=== PATIENT | female | born 1945 | race African-American/Black ===

== ENCOUNTER 2017-05-11 05:14 | Inpatient (IN) | payer MEDICARE, OTHER ==
[~2017-05-11] VITALS: Ht 165.1 cm; Wt 85.7 kg
[2017-05-11] VITALS (13 sets, daily range): BP systolic 146–179; BP diastolic 53–87
[2017-05-11] MEDS ORDERED: Morphine Sulfate 4mg/ml Inj IVP ONE (05:45)
[2017-05-11] MEDS ORDERED: NS 1000ml 2,600 ML IVLG ONE (05:45)
--- NOTE | 2017-05-11 05:48 | Emergency Room Report ---
History of Present Illness General Chief Complaint: Pain Source: Patient Present Illness HPI Is a 71-year-old female with history hypertension and diabetes. She's also legally blind. She uses a walker to get around her house. She presents with chief complaint of right ankle pain. Also the foot pain. Can't bear weight. She fell yesterday. Denies any fever chills. No nausea no vomiting. Unable to walk. Pain is 10 out of 10 when she stands better when she lays down. Also complaining last 3 days blood sugar been running over 600. Allergies: Coded Allergies: No Known Allergies (Unverified , 05/11/17) Patient History Past Medical History: see triage record, old chart reviewed, DM, HTN Past Surgical History: other Pertinent Family History: none Social History: Denies: smoking Last Menstrual Period: n/a Now: No Immunizations: other Reviewed Nursing Documentation: PMH: Agreed, PSxH: Agreed Nursing Documentation-PMH Past Medical History: No History, Except For Hx Cardiac Problems: Yes - irregular heartbeat Hx Hypertension: Yes Hx Diabetes: Yes Review of Systems Eye: Denies: eye pain, blurred vision ENT: Denies: ear pain, nose congestion, throat swelling Respiratory: Denies: cough, shortness of breath Cardiovascular: Denies: chest pain, palpitations Gastrointestinal: Denies: abdominal pain, diarrhea, nausea, vomiting Musculoskeletal: Reports: joint pain, Denies: back pain Skin: Denies: rash Neurological: Denies: headache, numbness Endocrine: Denies: increased thirst, increased urine Hematologic/Lymphatic: Denies: easy bruising All Other Systems: negative except mentioned in HPI Physical Exam Vital Signs Date Time Temp Pulse Resp B/P (MAP) Pulse Ox O2 Delivery O2 Flow Rate FiO2 05/11/17 05:13 98.4 79 16 127/54 100 05/11/17 05:29 Room Air vitals normal Sp02 EP Interpretation: reviewed, normal General Appearance: well appearing, no apparent distress, alert Head: normocephalic, atraumatic Eyes: right eye other - Right eye is cloudy, bilateral eye PERRL, bilateral eye EOMI ENT: hearing 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, normal pharynx Neck: full range of motion, supple, no meningismus Respiratory: chest non-tender, lungs clear, normal breath sounds Cardiovascular #1: regular rate, rhythm, no murmur Gastrointestinal: normal bowel sounds, non tender, no mass, no organomegaly, no bruit, non-distended Musculoskeletal: back normal, other - Right ankle: There is deformity laterally. Medial ankle is ecchymotic and tender. Pulse 1+. Psychiatric: mood/affect normal Skin: warm/dry Procedures Splinting Splinting : Consent: Verbal Location: It ankle Hand-Made Type: plaster Splint: Sugar tong and short leg splint Pre-Proc Neuro Vasc Exam: normal Post-Proc Neuro Vasc Exam: normal Patient Tolerated: Well Complications: None Joint Reduction Joint Reduction : Consent: Verbal Joint Reduction Site: other - Right ankle Procedural Sedation: No Reduction Attempts: One Pre-Procedure NV Exam: Yes Post-Procedure NV Exam: Yes Post Joint Reduction Film: joint reduced Patient Tolerated: Well Complications: None Progress with gentle traction I reduced the subtalar dislocation. Patient tolerated procedure without a problem. Splint was done also. Medical Decision Making Diagnostic Impression: Primary Impression: Trimalleolar fracture of right ankle Qualified Codes: S82.851A - Displaced trimalleolar fracture of right lower leg , initial encounter for closed fracture Additional Impressions: Dislocation of subtalar joint Qualified Codes: S93.314A - Dislocation of tarsal joint of right foot, initial encounter Anemia Qualified Codes: D64.9 - Anemia, unspecified Hyperglycemia due to type 2 diabetes mellitus Qualified Codes: E11.65 - Type 2 diabetes mellitus with hyperglycemia ER Course Patient presents with a trimalleolar ankle fracture with subtalar dislocation. Patient also has history anemia with previous blood transfusion. Blood sugars uncontrolled. She would benefit from orthopedic consultation and probably care home placement since she is blind and now can ambulate. Blood ordered. Patient will be admitted. Lab Results Impression labs with anemia and high glucose EKG Diagnostic Results Rate: normal Rhythm: NSR ST Segments: no acute changes Rhythm Strip Diag. Results Rhythm Strip Time: 06:54 EP Interpretation: yes Rate: 83 Rhythm: NSR, no PVC's, no ectopy Chest X-Ray Diagnostic Results Chest X-Ray Diagnostic Results : Chest X-Ray Ordered: Yes # of Views/Limited/Complete: 1 View Indication: Shortness of Breath EP Interpretation: Yes Interpretation: no consolidation, no effusion, no pneumothorax Impression: No acute disease Electronically Signed by: Electronically signed by Loi Spears MD Other X-Ray Diagnostic Results Other X-Ray Diagnostic Results #1: X-Ray ordered: Xr right ankle # of Views/Limited Vs Complete: 3 View Indication: Pain EP Interpretation: Yes Interpretation: no soft tissue swelling, other - Trimalleolar fracture with subtalar dislocation Impression: Other - trimalleolar frx with dislocation Electronically Signed by: Electronically signed by Loi Spears MD Other X-Ray Diagnostic Results #2: X-Ray ordered: Xr right ankle # of Views/Limited Vs Complete: 2 View Indication: Other - post reductdion EP Interpretation: Yes Interpretation: no soft tissue swelling, other - better alignment. trimalleolar frx. Impression: Other - post reduction of trimalleolar frx and dislocation Electronically Signed by: Electronically signed by Loi Spears MD Last Vital Signs Date Time Temp Pulse Resp B/P (MAP) Pulse Ox O2 Delivery O2 Flow Rate FiO2 05/11/17 05:29 98.2 74 15 147/59 97 Room Air Status: improved Disposition: ADMITTED INPATIENT Condition: Serious LOI SPEARS M.D. May 11, 2017 05:48
[2017-05-11 06:17] LABS: HEMATOCRIT 20.9 % (37.0-47.0); MEAN CORPUSCULAR VOLUME 87 FL (80-99); PLATELET COUNT 273 K/UL (150-450); RED CELL DISTRIBUTION WIDTH 12.3 % (11.6-14.8); WHITE BLOOD COUNT 8.3 K/UL (4.8-10.8)
[2017-05-11 06:24] LABS: HEMOGLOBIN 6.9 G/DL (12.0-16.0)
[2017-05-11 06:30] LABS: INR 0.9 (0.9-1.1)
[2017-05-11 07:12] LABS: ALANINE AMINOTRANSFERASE 16 U/L (12-78); ALBUMIN 2.1 G/DL (3.4-5.0); ALBUMIN/GLOBULIN RATIO 0.4 (1.0-2.7); ALKALINE PHOSPHATASE 173 U/L (46-116); ANION GAP 9 mmol/L (5-15); ASPARTATE AMINO TRANSFERASE 26 U/L (15-37); BILIRUBIN,TOTAL 0.4 MG/DL (0.2-1.0); BLOOD UREA NITROGEN 52 mg/dL (7-18); CALCIUM 9.2 MG/DL (8.5-10.1); CARBON DIOXIDE 25 MMOL/L (21-32); CHLORIDE 92 MMOL/L (98-107); CKMB 1.3 NG/ML (0.0-3.6); CREATINE KINASE 174 U/L (26-308); POTASSIUM 5.5 MMOL/L (3.5-5.1); SODIUM 125 MMOL/L (136-145)
[2017-05-11 07:58] LABS: APPEARANCE,URINE TURBID; BILIRUBIN, URINE NEGATIVE (NEGATIVE); COLOR,URINE PALE YELLOW; GLUCOSE, URINE (UA) 4+ (NEGATIVE); KETONES,URINE NEGATIVE (NEGATIVE); LEUKOCYTE ESTERASE ,URINE NEGATIVE (NEGATIVE); NITRITE,URINE NEGATIVE (NEGATIVE); PH,URINE 5 (4.5-8.0); PROTEIN,URINE 4+ (NEGATIVE); UROBILINOGEN,URINE NORMAL MG/DL (0.0-1.0)
[2017-05-11] MEDS ORDERED: LASIX20 M1 ORAL (08:14)
[2017-05-11] MEDS ORDERED: LISINOPRIL40 MG ORAL (08:14)
[2017-05-11] MEDS ORDERED: GLYBURIDE1.25 MG PO (08:14)
[2017-05-11] MEDS ORDERED: CATAPRES0.1 MG ORAL (08:40)
[2017-05-11] MEDS ORDERED: Norco 5mg/325mg tab ORAL ONE (10:15)
[2017-05-11] MEDS ORDERED: NovoLOG Insulin Flexpen SUBQ SCH ×3 (11:30→16:30)
--- NOTE | 2017-05-11 11:48 | Diagnostic Imaging Report ---
Indication: TRAUMA, pain Technique: One view of the chest Comparison: none Findings: Lungs and pleural spaces are clear. Heart size is normal. The bones are unremarkable Impression: No acute process
--- NOTE | 2017-05-11 11:50 | Diagnostic Imaging Report ---
Indication: TRAUMA Technique: 3 views of the right ankle Comparison: none Findings: Is there is a fracture dislocation of the ankle. There is a comminuted oblique fracture of the distal fibular diaphysis which is displaced laterally by over one bone width and overrides by about 2 cm. There is a comminuted oblique fracture of the medial malleolus which is displaced laterally. There is lateral dislocation and angulation of the talus. Lateral view demonstrates associated posterior malleolar fracture. Impression: Positive for severe right ankle fracture/dislocation, as described
--- NOTE | 2017-05-11 11:53 | Diagnostic Imaging Report ---
Indication: PAIN, postreduction Technique: 2 views of the right ankle Comparison: One hour earlier Findings: Interim splinting of previously demonstrated right ankle fracture dislocation. Improved anatomic alignment of the fracture as well as of the talus and the tibia. There is still some residual lateral angulation and subluxation however Impression: Interim closed reduction and splinting of previously demonstrated right ankle fracture/dislocation, as described
--- NOTE | 2017-05-11 13:06 | Consultation ---
Consult Note Consult Note 71 yo female with fall and rt ankle trimalleolar fracture significantly uncontrolled DM anemia of unknown source Xray reviewed Assessment/Plan Rt ankle trimalleolar fracture plan for ORIF in AM NPO tonight. transfuse x2 units- check CBC in AM At risk for poor wound healing given DM- needs tight control FADUMO MCKOY May 11, 2017 13:06
--- NOTE | 2017-05-11 14:29 | Consultation ---
Consult Note Consult Note Is a 71-year-old female with history hypertension and diabetes. She's also legally blind. She uses a walker to get around her house. She presents with chief complaint of right ankle pain. Also the foot pain. Can't bear weight. She fell yesterday. Denies any fever chills. No nausea no vomiting. Unable to walk. Pain is 10 out of 10 when she stands better when she lays down. Also complaining last 3 days blood sugar been running over 600. Past Medical History: No History, Except For Hx Cardiac Problems: Yes - irregular heartbeat Hx Hypertension: Yes Hx Diabetes: Yes Assessment/Plan Renal Failure- Chronic vs Acute Anemia Fx ankle DM HTN Plan; Oliver urine studies 2D Echo Kidney STANLEY MORTON May 11, 2017 14:29
--- NOTE | 2017-05-11 14:58 | History and Physical ---
History of Present Illness General Date patient seen: May 11, 2017 Time patient seen: 14:58 Reason for Hospitalization: R ankle and foot pain s/p fall Present Illness HPI 71y/o AA female with pmh of DM2, HTN, HLD, legal blindness who presents with R ankle and foot pain after a fall. Pt uses a walker to get around her house. Pt states that she felt dizzy which she believes is because she is anemic. She tried to walk w/o her caregiver's assistance and fell. She has been unable to bear weight since. Pt states she has been aemic before and usually gets dizzy when she is anemia. She denies melena, BRBPR/hematochezia or any other source of active bleeding. She did have a colonoscopy abt 2 years ago which per pt was unremarkable. No reports of f/c, n/v, d/c, chest pain, SOB. Denies LOC or head trauma. Pt states she has not been following a diabetic diet and is only on one diabetic med. She has noted her BG running in 600s the last few days. In ED, pt's BG>500 on BMP, Cr 3.0 (uknown baseline), K 5.5, Na 125. AG and bicarb wnl. U/A showed no ketones. CBC w/ hgb 6.9. 2U pRBCs ordered to be transfused. Imaging showed R ankle trimalleolar fracture w/ subtalar dislocation s/p reduction and splinting in ED. Allergies: Coded Allergies: No Known Allergies (Unverified , 05/11/17) Medication History Scheduled Clonidine Hcl* (Catapres*), 0.1 MG ORAL DAILY, (Reported) Furosemide* (Lasix*), 20 MG ORAL TWICE A DAY, (Reported) Lisinopril* (Lisinopril*), 40 MG ORAL DAILY, (Reported) Miscellaneous Medications Glyburide (Glyburide), 1.25 MG PO, (Reported) Patient History History Provided By: Patient, Medical Record Healthcare decision maker Resuscitation status Advanced Directive on File Past Medical/Surgical History Past Medical/Surgical History: (1) HTN (hypertension) (2) Uncontrolled diabetes mellitus (3) Anemia Family History Family History: Patient reports no known family medical history. Social History Social History: (1) Lives w/ caregiver Review of Systems ROS Narrative CONSTITUTIONAL: No weight loss, fever, chills, weakness or fatigue. HEENT: Eyes: No visual loss, blurred vision, double vision or yellow sclerae. Ears, Nose, Throat: No hearing loss, sneezing, congestion, runny nose or sore throat. SKIN: No rash or itching. CARDIOVASCULAR: No chest pain, chest pressure or chest discomfort. No palpitations or edema. RESPIRATORY: No shortness of breath, cough or sputum. GASTROINTESTINAL: No anorexia, nausea, vomiting or diarrhea. No abdominal pain or blood. NEUROLOGICAL: No headache, syncope, paralysis, ataxia, numbness or tingling in the extremities. No change in bowel or bladder control. +dizziness MUSCULOSKELETAL: No muscle, back pain, joint pain or stiffness. HEMATOLOGIC: No anemia, bleeding or bruising. LYMPHATICS: No enlarged nodes. No history of splenectomy. PSYCHIATRIC: No history of depression or anxiety. ENDOCRINOLOGIC: No reports of sweating, cold or heat intolerance. No polyuria or polydipsia. ALLERGIES: No history of asthma, hives, eczema or rhinitis. Physical Exam Physical Exam Narrative General: alert, cooperative, no distress, appears stated age Head: normocephalic, without obvious abnormality, atraumatic Eyes: conjunctivae/corneas clear. PERRL, EOM's intact, +legal blindness b/l Throat: lips, mucosa, and tongue normal. MMM Neck: supple, symmetrical, trachea midline, and no JVD Lungs: clear to auscultation bilaterally Heart: regular rate and rhythm, S1, S2 normal, no murmur, click, rub or gallop Abdomen: soft, non-tender, non-distended, bowel sounds normal; no masses or organomegaly Extremities: extremities normal, atraumatic, no cyanosis, +BLE edema Right ankle: There is deformity laterally. Medial ankle is ecchymotic and tender. Pulses: 2+ and symmetric Skin: skin color, texture, turgor normal; no rashes or lesions Neurologic: 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, no focal deficits Last 24 Hour Vital Signs Date Time Temp Pulse Resp B/P (MAP) Pulse Ox O2 Delivery O2 Flow Rate FiO2 05/11/17 14:40 97.2 72 18 179/65 92 Room Air 05/11/17 12:41 97.2 72 18 179/65 92 Room Air 05/11/17 11:33 97.2 75 14 159/65 98 Room Air 05/11/17 11:27 97.2 05/11/17 10:40 97.2 74 14 146/77 96 Room Air 05/11/17 10:25 97.2 80 13 166/79 95 Room Air 05/11/17 10:10 97.3 72 18 179/87 96 Room Air 05/11/17 09:34 97.6 71 17 169/62 96 Room Air 05/11/17 09:19 97.6 71 25 164/55 97 Room Air 05/11/17 09:04 97.6 71 12 163/60 96 Room Air 05/11/17 08:59 97.1 72 13 05/11/17 08:49 97.1 72 13 152/61 96 Room Air 05/11/17 07:17 98.2 76 18 155/53 96 Room Air 05/11/17 06:34 98.2 05/11/17 05:29 98.2 74 15 147/59 97 Room Air 05/11/17 05:13 98.4 79 16 127/54 100 Intake and Output 05/11/17 05/12/17 19:00 07:00 Intake Total 2600 ml Balance 2600 ml Intake IV Total 2600 ml Laboratory Tests Test 05/11/17 05:00 05/11/17 05:50 05/11/17 05:55 05/11/17 06:23 Iron Level Pending Unsaturated Iron Binding Pending Ferritin Pending White Blood Count 8.3 K/UL (4.8-10.8) Red Blood Count 2.40 M/UL (4.20-5.40) L Hemoglobin 6.9 G/DL (12.0-16.0) *L Hematocrit 20.9 % (37.0-47.0) L Mean Corpuscular Volume 87 FL (80-99) Mean Corpuscular Hemoglobin 28.7 PG (27.0-31.0) Mean Corpuscular Hemoglobin Concent 33.1 G/DL (32.0-36.0) Red Cell Distribution Width 12.3 % (11.6-14.8) Platelet Count 273 K/UL (150-450) Mean Platelet Volume 7.7 FL (6.5-10.1) Neutrophils (%) (Auto) % (45.0-75.0) Lymphocytes (%) (Auto) % (20.0-45.0) Monocytes (%) (Auto) % (1.0-10.0) Eosinophils (%) (Auto) % (0.0-3.0) Basophils (%) (Auto) % (0.0-2.0) Differential Total Cells Counted 100 Neutrophils % (Manual) 80 % (45-75) H Lymphocytes % (Manual) 11 % (20-45) L Monocytes % (Manual) 4 % (1-10) Eosinophils % (Manual) 4 % (0-3) H Basophils % (Manual) 1 % (0-2) Band Neutrophils 0 % (0-8) Platelet Estimate Adequate Platelet Morphology Normal Red Blood Cell Morphology Normal Prothrombin Time 9.6 SEC (9.30-11.50) Prothromb Time International Ratio 0.9 (0.9-1.1) Activated Partial Thromboplast Time 22 SEC (23-33) L Sodium Level 125 MMOL/L (136-145) L Potassium Level 5.5 MMOL/L (3.5-5.1) H Chloride Level 92 MMOL/L (98-107) L Carbon Dioxide Level 25 MMOL/L (21-32) Anion Gap 9 mmol/L (5-15) Blood Urea Nitrogen 52 mg/dL (7-18) H Creatinine 3.0 MG/DL (0.55-1.30) H Estimat Glomerular Filtration Rate 18.8 mL/min (>60) Glucose Level > 500 MG/DL (74-106) *H Lactic Acid Level 0.80 mmol/L (0.66-2.22) Calcium Level 9.2 MG/DL (8.5-10.1) Total Bilirubin 0.4 MG/DL (0.2-1.0) Aspartate Amino Transf (AST/SGOT) 26 U/L (15-37) Alanine Aminotransferase (ALT/SGPT) 16 U/L (12-78) Alkaline Phosphatase 173 U/L (46-116) H Total Creatine Kinase 174 U/L (26-308) Creatine Kinase MB 1.3 NG/ML (0.0-3.6) Creatine Kinase MB Relative Index 0.7 Troponin I 0.010 ng/mL (0.000-0.056) Total Protein 6.8 G/DL (6.4-8.2) Albumin 2.1 G/DL (3.4-5.0) L Globulin 4.7 g/dL Albumin/Globulin Ratio 0.4 (1.0-2.7) L Hemoglobin A1c > 16.0 % (4.3-6.0) H Urine Color Pale yellow Urine Appearance Turbid Urine pH 5 (4.5-8.0) Urine Specific [place] 1.010 (1.005-1.035) Urine Protein 4+ (NEGATIVE) H Urine Glucose (UA) 4+ (NEGATIVE) H Urine Ketones Negative (NEGATIVE) Urine Occult Blood 2+ (NEGATIVE) H Urine Nitrite Negative (NEGATIVE) Urine Bilirubin Negative (NEGATIVE) Urine Urobilinogen Normal MG/DL (0.0-1.0) Urine Leukocyte Esterase Negative (NEGATIVE) Urine RBC 2-4 /HPF (0 - 2) H Urine WBC 0-2 /HPF (0 - 2) Urine Squamous Epithelial Cells Occasional /LPF Urine Amorphous Sediment Moderate /LPF (NONE) H Urine Bacteria Few /HPF (NONE) Height (Feet): 5 Height (Inches): 7.00 Weight (Pounds): 189 Medications Current Medications Medications (Trade) Dose Ordered Sig/Andre Route PRN Reason Start Time Stop Time Status Last Admin Dose Admin Dextrose (Dextrose 50%) STAT PRN IV Hypoglycemia 05/11/17 08:45 06/10/17 08:44 Heparin Sodium (Porcine) (Heparin 5000 units/ml) 5,000 units EVERY 12 HOURS SUBQ 05/11/17 21:00 06/10/17 20:59 Hydralazine HCl (Apresoline) 25 mg Q6H PRN ORAL SBP>160 05/11/17 15:00 06/10/17 14:59 Insulin Aspart (NovoLOG) No Dose Q4HR SUBQ 05/11/17 17:00 06/10/17 16:29 UNV Insulin Detemir (Levemir) 20 units ONCE ONCE SUBQ 05/11/17 15:00 05/11/17 15:01 Sodium Chloride 1,000 ml @ 100 mls/hr Q10H IV 05/11/17 14:30 06/10/17 14:29 Assessment/Plan Problem List: (1) Trimalleolar fracture of right ankle ICD Codes: S82.851A - Displaced trimalleolar fracture of right lower leg, initial encounter for closed fracture SNOMED: 403048800, 04506542 Qualifiers: Qualified Codes: S82.851A - Displaced trimalleolar fracture of right lower leg, initial encounter for closed fracture (2) Status post fall ICD Codes: Z91.81 - History of falling SNOMED: 388991650 (3) Uncontrolled diabetes mellitus ICD Codes: E11.65 - Type 2 diabetes mellitus with hyperglycemia SNOMED: 47964335, 665322151 (4) HTN (hypertension) ICD Codes: I10 - Essential (primary) hypertension SNOMED: 60481490 (5) Hyperkalemia ICD Codes: E87.5 - Hyperkalemia SNOMED: 71285375 (6) ZENY (acute kidney injury) ICD Codes: N17.9 - Acute kidney failure, unspecified SNOMED: 92476820 (7) Hyponatremia ICD Codes: E87.1 - Hypo-osmolality and hyponatremia SNOMED: 80106996 (8) Pre-syncope ICD Codes: R55 - Syncope and collapse SNOMED: 061652489 (9) Anemia ICD Codes: D64.9 - Anemia, unspecified SNOMED: 269386722 Qualifiers: Qualified Codes: D64.9 - Anemia, unspecified Status: stable Assessment/Plan Admit inpt Ortho consulted--plan for OR Tuesday Endo consulted SSI [id number]--io cont to be uncontrolled, consider transfer to ICU for insulin gtt Pt refusing long acting insulin, stating she has h/o "heart arrhythmia" with it prior Renal consulted IVFs Check urine lytes, renal U/S Check EKG, TTE for preop eval Hold home lasix, lisinopril given ZENY (unknown baseline SCr) Clonidine PRN SBP>160 GI consulted PPI s/p 2U pRBCs on 05/11/17 Trend CBC Heme/onc consulted Check TSH, B12/folate, iron panel, ferritin, FOBT DVT Prophylaxis: SCD, HSQ Code Status: Full Hospital Classification Declaration: Based on this initial evaluation, and depending on the patient's clinical course, I anticipate that this patient will require hospitalization for 2-3 days for ankle fracture, uncontrolled diabetes, anemia and close respiratory/hemodynamic monitoring. Disposition: Once the patient is stable to leave the hospital, I anticipate the patient will likely be discharged to the following environment: home with HH + CG vs SNF I spent 75 minutes on this patient's case, and 50 minutes were dedicated to counseling and/or care coordination. Discussed with patient/family, nursing staff, SW/CM, endo, surgery, renal, GI regarding clinical status, treatment course, and disposition planning. Time of note may not reflect time of encounter. Celestine Stevens M.D. May 11, 2017 14:58
--- NOTE | 2017-05-11 14:58 | History and Physical ---
History of Present Illness General Date patient seen: May 11, 2017 Time patient seen: 14:58 Reason for Hospitalization: R ankle and foot pain s/p fall Present Illness HPI 71y/o AA female with pmh of DM2, HTN, HLD, legal blindness who presents with R ankle and foot pain after a fall. Pt uses a walker to get around her house. Pt states that she felt dizzy which she believes is because she is anemic. She tried to walk w/o her caregiver's assistance and fell. She has been unable to bear weight since. Pt states she has been aemic before and usually gets dizzy when she is anemia. She denies melena, BRBPR/hematochezia or any other source of active bleeding. She did have a colonoscopy abt 2 years ago which per pt was unremarkable. No reports of f/c, n/v, d/c, chest pain, SOB. Denies LOC or head trauma. Pt states she has not been following a diabetic diet and is only on one diabetic med. She has noted her BG running in 600s the last few days. In ED, pt's BG>500 on BMP, Cr 3.0 (uknown baseline), K 5.5, Na 125. AG and bicarb wnl. U/A showed no ketones. CBC w/ hgb 6.9. 2U pRBCs ordered to be transfused. Imaging showed R ankle trimalleolar fracture w/ subtalar dislocation s/p reduction and splinting in ED. Allergies: Coded Allergies: No Known Allergies (Unverified , 05/11/17) Medication History Scheduled Clonidine Hcl* (Catapres*), 0.1 MG ORAL DAILY, (Reported) Furosemide* (Lasix*), 20 MG ORAL TWICE A DAY, (Reported) Lisinopril* (Lisinopril*), 40 MG ORAL DAILY, (Reported) Miscellaneous Medications Glyburide (Glyburide), 1.25 MG PO, (Reported) Patient History History Provided By: Patient, Medical Record Healthcare decision maker Resuscitation status Advanced Directive on File Past Medical/Surgical History Past Medical/Surgical History: (1) HTN (hypertension) (2) Uncontrolled diabetes mellitus (3) Anemia Family History Family History: Patient reports no known family medical history. Social History Social History: (1) Lives w/ caregiver Review of Systems ROS Narrative CONSTITUTIONAL: No weight loss, fever, chills, weakness or fatigue. HEENT: Eyes: No visual loss, blurred vision, double vision or yellow sclerae. Ears, Nose, Throat: No hearing loss, sneezing, congestion, runny nose or sore throat. SKIN: No rash or itching. CARDIOVASCULAR: No chest pain, chest pressure or chest discomfort. No palpitations or edema. RESPIRATORY: No shortness of breath, cough or sputum. GASTROINTESTINAL: No anorexia, nausea, vomiting or diarrhea. No abdominal pain or blood. NEUROLOGICAL: No headache, syncope, paralysis, ataxia, numbness or tingling in the extremities. No change in bowel or bladder control. +dizziness MUSCULOSKELETAL: No muscle, back pain, joint pain or stiffness. HEMATOLOGIC: No anemia, bleeding or bruising. LYMPHATICS: No enlarged nodes. No history of splenectomy. PSYCHIATRIC: No history of depression or anxiety. ENDOCRINOLOGIC: No reports of sweating, cold or heat intolerance. No polyuria or polydipsia. ALLERGIES: No history of asthma, hives, eczema or rhinitis. Physical Exam Physical Exam Narrative General: alert, cooperative, no distress, appears stated age Head: normocephalic, without obvious abnormality, atraumatic Eyes: conjunctivae/corneas clear. PERRL, EOM's intact, +legal blindness b/l Throat: lips, mucosa, and tongue normal. MMM Neck: supple, symmetrical, trachea midline, and no JVD Lungs: clear to auscultation bilaterally Heart: regular rate and rhythm, S1, S2 normal, no murmur, click, rub or gallop Abdomen: soft, non-tender, non-distended, bowel sounds normal; no masses or organomegaly Extremities: extremities normal, atraumatic, no cyanosis, +BLE edema Right ankle: There is deformity laterally. Medial ankle is ecchymotic and tender. Pulses: 2+ and symmetric Skin: skin color, texture, turgor normal; no rashes or lesions Neurologic: 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, no focal deficits Last 24 Hour Vital Signs Date Time Temp Pulse Resp B/P (MAP) Pulse Ox O2 Delivery O2 Flow Rate FiO2 05/11/17 14:40 97.2 72 18 179/65 92 Room Air 05/11/17 12:41 97.2 72 18 179/65 92 Room Air 05/11/17 11:33 97.2 75 14 159/65 98 Room Air 05/11/17 11:27 97.2 05/11/17 10:40 97.2 74 14 146/77 96 Room Air 05/11/17 10:25 97.2 80 13 166/79 95 Room Air 05/11/17 10:10 97.3 72 18 179/87 96 Room Air 05/11/17 09:34 97.6 71 17 169/62 96 Room Air 05/11/17 09:19 97.6 71 25 164/55 97 Room Air 05/11/17 09:04 97.6 71 12 163/60 96 Room Air 05/11/17 08:59 97.1 72 13 05/11/17 08:49 97.1 72 13 152/61 96 Room Air 05/11/17 07:17 98.2 76 18 155/53 96 Room Air 05/11/17 06:34 98.2 05/11/17 05:29 98.2 74 15 147/59 97 Room Air 05/11/17 05:13 98.4 79 16 127/54 100 Intake and Output 05/11/17 05/12/17 19:00 07:00 Intake Total 2600 ml Balance 2600 ml Intake IV Total 2600 ml Laboratory Tests Test 05/11/17 05:00 05/11/17 05:50 05/11/17 05:55 05/11/17 06:23 Iron Level Pending Unsaturated Iron Binding Pending Ferritin Pending White Blood Count 8.3 K/UL (4.8-10.8) Red Blood Count 2.40 M/UL (4.20-5.40) L Hemoglobin 6.9 G/DL (12.0-16.0) *L Hematocrit 20.9 % (37.0-47.0) L Mean Corpuscular Volume 87 FL (80-99) Mean Corpuscular Hemoglobin 28.7 PG (27.0-31.0) Mean Corpuscular Hemoglobin Concent 33.1 G/DL (32.0-36.0) Red Cell Distribution Width 12.3 % (11.6-14.8) Platelet Count 273 K/UL (150-450) Mean Platelet Volume 7.7 FL (6.5-10.1) Neutrophils (%) (Auto) % (45.0-75.0) Lymphocytes (%) (Auto) % (20.0-45.0) Monocytes (%) (Auto) % (1.0-10.0) Eosinophils (%) (Auto) % (0.0-3.0) Basophils (%) (Auto) % (0.0-2.0) Differential Total Cells Counted 100 Neutrophils % (Manual) 80 % (45-75) H Lymphocytes % (Manual) 11 % (20-45) L Monocytes % (Manual) 4 % (1-10) Eosinophils % (Manual) 4 % (0-3) H Basophils % (Manual) 1 % (0-2) Band Neutrophils 0 % (0-8) Platelet Estimate Adequate Platelet Morphology Normal Red Blood Cell Morphology Normal Prothrombin Time 9.6 SEC (9.30-11.50) Prothromb Time International Ratio 0.9 (0.9-1.1) Activated Partial Thromboplast Time 22 SEC (23-33) L Sodium Level 125 MMOL/L (136-145) L Potassium Level 5.5 MMOL/L (3.5-5.1) H Chloride Level 92 MMOL/L (98-107) L Carbon Dioxide Level 25 MMOL/L (21-32) Anion Gap 9 mmol/L (5-15) Blood Urea Nitrogen 52 mg/dL (7-18) H Creatinine 3.0 MG/DL (0.55-1.30) H Estimat Glomerular Filtration Rate 18.8 mL/min (>60) Glucose Level > 500 MG/DL (74-106) *H Lactic Acid Level 0.80 mmol/L (0.66-2.22) Calcium Level 9.2 MG/DL (8.5-10.1) Total Bilirubin 0.4 MG/DL (0.2-1.0) Aspartate Amino Transf (AST/SGOT) 26 U/L (15-37) Alanine Aminotransferase (ALT/SGPT) 16 U/L (12-78) Alkaline Phosphatase 173 U/L (46-116) H Total Creatine Kinase 174 U/L (26-308) Creatine Kinase MB 1.3 NG/ML (0.0-3.6) Creatine Kinase MB Relative Index 0.7 Troponin I 0.010 ng/mL (0.000-0.056) Total Protein 6.8 G/DL (6.4-8.2) Albumin 2.1 G/DL (3.4-5.0) L Globulin 4.7 g/dL Albumin/Globulin Ratio 0.4 (1.0-2.7) L Hemoglobin A1c > 16.0 % (4.3-6.0) H Urine Color Pale yellow Urine Appearance Turbid Urine pH 5 (4.5-8.0) Urine Specific [place] 1.010 (1.005-1.035) Urine Protein 4+ (NEGATIVE) H Urine Glucose (UA) 4+ (NEGATIVE) H Urine Ketones Negative (NEGATIVE) Urine Occult Blood 2+ (NEGATIVE) H Urine Nitrite Negative (NEGATIVE) Urine Bilirubin Negative (NEGATIVE) Urine Urobilinogen Normal MG/DL (0.0-1.0) Urine Leukocyte Esterase Negative (NEGATIVE) Urine RBC 2-4 /HPF (0 - 2) H Urine WBC 0-2 /HPF (0 - 2) Urine Squamous Epithelial Cells Occasional /LPF Urine Amorphous Sediment Moderate /LPF (NONE) H Urine Bacteria Few /HPF (NONE) Height (Feet): 5 Height (Inches): 7.00 Weight (Pounds): 189 Medications Current Medications Medications (Trade) Dose Ordered Sig/Andre Route PRN Reason Start Time Stop Time Status Last Admin Dose Admin Dextrose (Dextrose 50%) STAT PRN IV Hypoglycemia 05/11/17 08:45 06/10/17 08:44 Heparin Sodium (Porcine) (Heparin 5000 units/ml) 5,000 units EVERY 12 HOURS SUBQ 05/11/17 21:00 06/10/17 20:59 Hydralazine HCl (Apresoline) 25 mg Q6H PRN ORAL SBP>160 05/11/17 15:00 06/10/17 14:59 Insulin Aspart (NovoLOG) No Dose Q4HR SUBQ 05/11/17 17:00 06/10/17 16:29 UNV Insulin Detemir (Levemir) 20 units ONCE ONCE SUBQ 05/11/17 15:00 05/11/17 15:01 Sodium Chloride 1,000 ml @ 100 mls/hr Q10H IV 05/11/17 14:30 06/10/17 14:29 Assessment/Plan Problem List: (1) Trimalleolar fracture of right ankle ICD Codes: S82.851A - Displaced trimalleolar fracture of right lower leg, initial encounter for closed fracture SNOMED: 137627832, 73746506 Qualifiers: Qualified Codes: S82.851A - Displaced trimalleolar fracture of right lower leg, initial encounter for closed fracture (2) Status post fall ICD Codes: Z91.81 - History of falling SNOMED: 394118353 (3) Uncontrolled diabetes mellitus ICD Codes: E11.65 - Type 2 diabetes mellitus with hyperglycemia SNOMED: 10432369, 084076907 (4) HTN (hypertension) ICD Codes: I10 - Essential (primary) hypertension SNOMED: 77738676 (5) Hyperkalemia ICD Codes: E87.5 - Hyperkalemia SNOMED: 43022095 (6) ZENY (acute kidney injury) ICD Codes: N17.9 - Acute kidney failure, unspecified SNOMED: 23457894 (7) Hyponatremia ICD Codes: E87.1 - Hypo-osmolality and hyponatremia SNOMED: 85754751 (8) Pre-syncope ICD Codes: R55 - Syncope and collapse SNOMED: 749141434 (9) Anemia ICD Codes: D64.9 - Anemia, unspecified SNOMED: 117464588 Qualifiers: Qualified Codes: D64.9 - Anemia, unspecified Status: stable Assessment/Plan Admit inpt Ortho consulted--plan for OR Tuesday Endo consulted SSI [id number] cont to be uncontrolled, consider transfer to ICU for insulin gtt Pt refusing long acting insulin, stating she has h/o "heart arrhythmia" with it prior Renal consulted IVFs Check urine lytes, renal U/S Check EKG, TTE for preop eval Hold home lasix, lisinopril given ZENY (unknown baseline SCr) Clonidine PRN SBP>160 GI consulted PPI s/p 2U pRBCs on 05/11/17 Trend CBC Heme/onc consulted Check TSH, B12/folate, iron panel, ferritin, FOBT DVT Prophylaxis: SCD, HSQ Code Status: Full Hospital Classification Declaration: Based on this initial evaluation, and depending on the patient's clinical course, I anticipate that this patient will require hospitalization for 2-3 days for ankle fracture, uncontrolled diabetes, anemia and close respiratory/hemodynamic monitoring. Disposition: Once the patient is stable to leave the hospital, I anticipate the patient will likely be discharged to the following environment: home with HH + CG vs SNF I spent 75 minutes on this patient's case, and 50 minutes were dedicated to counseling and/or care coordination. Discussed with patient/family, nursing staff, SW/CM, endo, surgery, renal, GI regarding clinical status, treatment course, and disposition planning. Time of note may not reflect time of encounter. Celestine Stevens M.D. May 11, 2017 14:58
--- NOTE | 2017-05-11 14:58 | History and Physical ---
History of Present Illness General Date patient seen: May 11, 2017 Time patient seen: 14:58 Reason for Hospitalization: R ankle and foot pain s/p fall Present Illness HPI 71y/o AA female with pmh of DM2, HTN, HLD, legal blindness who presents with R ankle and foot pain after a fall. Pt uses a walker to get around her house. Pt states that she felt dizzy which she believes is because she is anemic. She tried to walk w/o her caregiver's assistance and fell. She has been unable to bear weight since. Pt states she has been aemic before and usually gets dizzy when she is anemia. She denies melena, BRBPR/hematochezia or any other source of active bleeding. She did have a colonoscopy abt 2 years ago which per pt was unremarkable. No reports of f/c, n/v, d/c, chest pain, SOB. Denies LOC or head trauma. Pt states she has not been following a diabetic diet and is only on one diabetic med. She has noted her BG running in 600s the last few days. In ED, pt's BG>500 on BMP, Cr 3.0 (uknown baseline), K 5.5, Na 125. AG and bicarb wnl. U/A showed no ketones. CBC w/ hgb 6.9. 2U pRBCs ordered to be transfused. Imaging showed R ankle trimalleolar fracture w/ subtalar dislocation s/p reduction and splinting in ED. Allergies: Coded Allergies: No Known Allergies (Unverified , 05/11/17) Medication History Scheduled Clonidine Hcl* (Catapres*), 0.1 MG ORAL DAILY, (Reported) Furosemide* (Lasix*), 20 MG ORAL TWICE A DAY, (Reported) Lisinopril* (Lisinopril*), 40 MG ORAL DAILY, (Reported) Miscellaneous Medications Glyburide (Glyburide), 1.25 MG PO, (Reported) Patient History History Provided By: Patient, Medical Record Healthcare decision maker Resuscitation status Advanced Directive on File Past Medical/Surgical History Past Medical/Surgical History: (1) HTN (hypertension) (2) Uncontrolled diabetes mellitus (3) Anemia Family History Family History: Patient reports no known family medical history. Social History Social History: (1) Lives w/ caregiver Review of Systems ROS Narrative CONSTITUTIONAL: No weight loss, fever, chills, weakness or fatigue. HEENT: Eyes: No visual loss, blurred vision, double vision or yellow sclerae. Ears, Nose, Throat: No hearing loss, sneezing, congestion, runny nose or sore throat. SKIN: No rash or itching. CARDIOVASCULAR: No chest pain, chest pressure or chest discomfort. No palpitations or edema. RESPIRATORY: No shortness of breath, cough or sputum. GASTROINTESTINAL: No anorexia, nausea, vomiting or diarrhea. No abdominal pain or blood. NEUROLOGICAL: No headache, syncope, paralysis, ataxia, numbness or tingling in the extremities. No change in bowel or bladder control. +dizziness MUSCULOSKELETAL: No muscle, back pain, joint pain or stiffness. HEMATOLOGIC: No anemia, bleeding or bruising. LYMPHATICS: No enlarged nodes. No history of splenectomy. PSYCHIATRIC: No history of depression or anxiety. ENDOCRINOLOGIC: No reports of sweating, cold or heat intolerance. No polyuria or polydipsia. ALLERGIES: No history of asthma, hives, eczema or rhinitis. Physical Exam Physical Exam Narrative General: alert, cooperative, no distress, appears stated age Head: normocephalic, without obvious abnormality, atraumatic Eyes: conjunctivae/corneas clear. PERRL, EOM's intact, +legal blindness b/l Throat: lips, mucosa, and tongue normal. MMM Neck: supple, symmetrical, trachea midline, and no JVD Lungs: clear to auscultation bilaterally Heart: regular rate and rhythm, S1, S2 normal, no murmur, click, rub or gallop Abdomen: soft, non-tender, non-distended, bowel sounds normal; no masses or organomegaly Extremities: extremities normal, atraumatic, no cyanosis, +BLE edema Right ankle: There is deformity laterally. Medial ankle is ecchymotic and tender. Pulses: 2+ and symmetric Skin: skin color, texture, turgor normal; no rashes or lesions Neurologic: 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, no focal deficits Last 24 Hour Vital Signs Date Time Temp Pulse Resp B/P (MAP) Pulse Ox O2 Delivery O2 Flow Rate FiO2 05/11/17 14:40 97.2 72 18 179/65 92 Room Air 05/11/17 12:41 97.2 72 18 179/65 92 Room Air 05/11/17 11:33 97.2 75 14 159/65 98 Room Air 05/11/17 11:27 97.2 05/11/17 10:40 97.2 74 14 146/77 96 Room Air 05/11/17 10:25 97.2 80 13 166/79 95 Room Air 05/11/17 10:10 97.3 72 18 179/87 96 Room Air 05/11/17 09:34 97.6 71 17 169/62 96 Room Air 05/11/17 09:19 97.6 71 25 164/55 97 Room Air 05/11/17 09:04 97.6 71 12 163/60 96 Room Air 05/11/17 08:59 97.1 72 13 05/11/17 08:49 97.1 72 13 152/61 96 Room Air 05/11/17 07:17 98.2 76 18 155/53 96 Room Air 05/11/17 06:34 98.2 05/11/17 05:29 98.2 74 15 147/59 97 Room Air 05/11/17 05:13 98.4 79 16 127/54 100 Intake and Output 05/11/17 05/12/17 19:00 07:00 Intake Total 2600 ml Balance 2600 ml Intake IV Total 2600 ml Laboratory Tests Test 05/11/17 05:00 05/11/17 05:50 05/11/17 05:55 05/11/17 06:23 Iron Level Pending Unsaturated Iron Binding Pending Ferritin Pending White Blood Count 8.3 K/UL (4.8-10.8) Red Blood Count 2.40 M/UL (4.20-5.40) L Hemoglobin 6.9 G/DL (12.0-16.0) *L Hematocrit 20.9 % (37.0-47.0) L Mean Corpuscular Volume 87 FL (80-99) Mean Corpuscular Hemoglobin 28.7 PG (27.0-31.0) Mean Corpuscular Hemoglobin Concent 33.1 G/DL (32.0-36.0) Red Cell Distribution Width 12.3 % (11.6-14.8) Platelet Count 273 K/UL (150-450) Mean Platelet Volume 7.7 FL (6.5-10.1) Neutrophils (%) (Auto) % (45.0-75.0) Lymphocytes (%) (Auto) % (20.0-45.0) Monocytes (%) (Auto) % (1.0-10.0) Eosinophils (%) (Auto) % (0.0-3.0) Basophils (%) (Auto) % (0.0-2.0) Differential Total Cells Counted 100 Neutrophils % (Manual) 80 % (45-75) H Lymphocytes % (Manual) 11 % (20-45) L Monocytes % (Manual) 4 % (1-10) Eosinophils % (Manual) 4 % (0-3) H Basophils % (Manual) 1 % (0-2) Band Neutrophils 0 % (0-8) Platelet Estimate Adequate Platelet Morphology Normal Red Blood Cell Morphology Normal Prothrombin Time 9.6 SEC (9.30-11.50) Prothromb Time International Ratio 0.9 (0.9-1.1) Activated Partial Thromboplast Time 22 SEC (23-33) L Sodium Level 125 MMOL/L (136-145) L Potassium Level 5.5 MMOL/L (3.5-5.1) H Chloride Level 92 MMOL/L (98-107) L Carbon Dioxide Level 25 MMOL/L (21-32) Anion Gap 9 mmol/L (5-15) Blood Urea Nitrogen 52 mg/dL (7-18) H Creatinine 3.0 MG/DL (0.55-1.30) H Estimat Glomerular Filtration Rate 18.8 mL/min (>60) Glucose Level > 500 MG/DL (74-106) *H Lactic Acid Level 0.80 mmol/L (0.66-2.22) Calcium Level 9.2 MG/DL (8.5-10.1) Total Bilirubin 0.4 MG/DL (0.2-1.0) Aspartate Amino Transf (AST/SGOT) 26 U/L (15-37) Alanine Aminotransferase (ALT/SGPT) 16 U/L (12-78) Alkaline Phosphatase 173 U/L (46-116) H Total Creatine Kinase 174 U/L (26-308) Creatine Kinase MB 1.3 NG/ML (0.0-3.6) Creatine Kinase MB Relative Index 0.7 Troponin I 0.010 ng/mL (0.000-0.056) Total Protein 6.8 G/DL (6.4-8.2) Albumin 2.1 G/DL (3.4-5.0) L Globulin 4.7 g/dL Albumin/Globulin Ratio 0.4 (1.0-2.7) L Hemoglobin A1c > 16.0 % (4.3-6.0) H Urine Color Pale yellow Urine Appearance Turbid Urine pH 5 (4.5-8.0) Urine Specific [place] 1.010 (1.005-1.035) Urine Protein 4+ (NEGATIVE) H Urine Glucose (UA) 4+ (NEGATIVE) H Urine Ketones Negative (NEGATIVE) Urine Occult Blood 2+ (NEGATIVE) H Urine Nitrite Negative (NEGATIVE) Urine Bilirubin Negative (NEGATIVE) Urine Urobilinogen Normal MG/DL (0.0-1.0) Urine Leukocyte Esterase Negative (NEGATIVE) Urine RBC 2-4 /HPF (0 - 2) H Urine WBC 0-2 /HPF (0 - 2) Urine Squamous Epithelial Cells Occasional /LPF Urine Amorphous Sediment Moderate /LPF (NONE) H Urine Bacteria Few /HPF (NONE) Height (Feet): 5 Height (Inches): 7.00 Weight (Pounds): 189 Medications Current Medications Medications (Trade) Dose Ordered Sig/Andre Route PRN Reason Start Time Stop Time Status Last Admin Dose Admin Dextrose (Dextrose 50%) STAT PRN IV Hypoglycemia 05/11/17 08:45 06/10/17 08:44 Heparin Sodium (Porcine) (Heparin 5000 units/ml) 5,000 units EVERY 12 HOURS SUBQ 05/11/17 21:00 06/10/17 20:59 Hydralazine HCl (Apresoline) 25 mg Q6H PRN ORAL SBP>160 05/11/17 15:00 06/10/17 14:59 Insulin Aspart (NovoLOG) No Dose Q4HR SUBQ 05/11/17 17:00 06/10/17 16:29 UNV Insulin Detemir (Levemir) 20 units ONCE ONCE SUBQ 05/11/17 15:00 05/11/17 15:01 Sodium Chloride 1,000 ml @ 100 mls/hr Q10H IV 05/11/17 14:30 06/10/17 14:29 Assessment/Plan Problem List: (1) Trimalleolar fracture of right ankle ICD Codes: S82.851A - Displaced trimalleolar fracture of right lower leg, initial encounter for closed fracture SNOMED: 290528038, 63560148 Qualifiers: Qualified Codes: S82.851A - Displaced trimalleolar fracture of right lower leg, initial encounter for closed fracture (2) Status post fall ICD Codes: Z91.81 - History of falling SNOMED: 005171582 (3) Uncontrolled diabetes mellitus ICD Codes: E11.65 - Type 2 diabetes mellitus with hyperglycemia SNOMED: 66414994, 627210181 (4) HTN (hypertension) ICD Codes: I10 - Essential (primary) hypertension SNOMED: 87036105 (5) Hyperkalemia ICD Codes: E87.5 - Hyperkalemia SNOMED: 87509611 (6) ZENY (acute kidney injury) ICD Codes: N17.9 - Acute kidney failure, unspecified SNOMED: 78904264 (7) Hyponatremia ICD Codes: E87.1 - Hypo-osmolality and hyponatremia SNOMED: 05510457 (8) Pre-syncope ICD Codes: R55 - Syncope and collapse SNOMED: 816420497 (9) Anemia ICD Codes: D64.9 - Anemia, unspecified SNOMED: 634835807 Qualifiers: Qualified Codes: D64.9 - Anemia, unspecified Status: stable Assessment/Plan Admit inpt Ortho consulted--plan for OR Tuesday Endo consulted SSI [id number] cont to be uncontrolled, consider transfer to ICU for insulin gtt Pt refusing long acting insulin, stating she has h/o "heart arrhythmia" with it prior Renal consulted IVFs Check urine lytes, renal U/S Check EKG, TTE for preop eval Hold home lasix, lisinopril given ZENY (unknown baseline SCr) Clonidine PRN SBP>160 GI consulted PPI s/p 2U pRBCs on 05/11/17 Trend CBC Heme/onc consulted Check TSH, B12/folate, iron panel, ferritin, FOBT DVT Prophylaxis: SCD, HSQ Code Status: Full Hospital Classification Declaration: Based on this initial evaluation, and depending on the patient's clinical course, I anticipate that this patient will require hospitalization for 2-3 days for ankle fracture, uncontrolled diabetes, anemia and close respiratory/hemodynamic monitoring. Disposition: Once the patient is stable to leave the hospital, I anticipate the patient will likely be discharged to the following environment: home with HH + CG vs SNF I spent 75 minutes on this patient's case, and 50 minutes were dedicated to counseling and/or care coordination. Discussed with patient/family, nursing staff, SW/CM, endo, surgery, renal, GI regarding clinical status, treatment course, and disposition planning. Time of note may not reflect time of encounter. Celestine Stevens M.D. May 11, 2017 14:58
[2017-05-11] MEDS ORDERED: Levemir Flexpen SUBQ ONE (15:00)
[2017-05-11] MEDS ORDERED: HydrALAZINE 25mg tab ORAL PRN (15:00)
--- NOTE | 2017-05-11 15:02 | Anethesia Preoperative Eval ---
Anesthesia Pre-op PMH/ROS General Date of Evaluation: May 11, 2017 Time of Evaluation: 14:41 Anesthesiologist: Ashlee ASA Score: ASA 3 Mallampati Score Class I : Soft palate, uvula, fauces, pillars visible Class II: Soft palate, uvula, fauces visible Class III: Soft palate, base of uvula visible Class IV: Only hard plate visible Mallampati Classification: Class III Surgeon: Katarzyna Diagnosis: R ankle Fx Surgical Procedure: ORIF of R ankle Fx Anesthesia History: none Family History: no anesthesia problems Allergies: Coded Allergies: No Known Allergies (Unverified , 05/11/17) Medications: see eMAR Past Medical History Cardiovascular: Reports: HTN, arrhythmia - possible, Denies: CAD, CT, valve dz, other Pulmonary: Denies: asthma, COPD, JUSTYN, other Gastrointestinal/Genitourinary: Reports: GERD, CRI - Cr.high acute vs chronic RF Neurologic/Psychiatric: Reports: depression/anxiety, Denies: dementia, CVA, TIA, other Endocrine: Reports: DM - uncontrolled not on insulin according to patient, Denies: hypothyroidism, steroids, other HEENT: Reports: other - legally blind, Denies: cataract (L), cataract (R), glaucoma, [place] (L), [place] (R) Hematology/Immune: Reports: anemia - severe anemia of unknown source, Denies: DVT, bleeding disorder, other Musculoskeletal/Integumentary: Reports: DJD, edema - bilateral LE gr.2 edema, Denies: OA, RA, DDD, other Other: obesity PMH Narrative: admitted with mechanical fall and broken R ankle secondary to dizziness severe anemia PSxH Narrative: T&A as a child Anesthesia Pre-op Phys. Exam Physician Exam Last Vital Signs Date Time Temp Pulse Resp B/P (MAP) Pulse Ox O2 Delivery O2 Flow Rate FiO2 05/11/17 12:41 97.2 72 18 179/65 92 Room Air Constitutional: NAD Neurologic: CN 2-12 intact Cardiovascular: RRR Respiratory: CTA Gastrointestinal: other - obesity needs GI consult to rool out GI blee as a source of anemia Airway Exam Mallampati Score: Class III MO: limited Neck: stiff ROM: limited Teeth: missing Dentures: no upper, no lower Anesthesia Pre-op A/P Labs Hematology Test 05/11/17 05:50 White Blood Count 8.3 K/UL (4.8-10.8) Red Blood Count 2.40 M/UL (4.20-5.40) L Hemoglobin 6.9 G/DL (12.0-16.0) *L Hematocrit 20.9 % (37.0-47.0) L Mean Corpuscular Volume 87 FL (80-99) Mean Corpuscular Hemoglobin 28.7 PG (27.0-31.0) Mean Corpuscular Hemoglobin Concent 33.1 G/DL (32.0-36.0) Red Cell Distribution Width 12.3 % (11.6-14.8) Platelet Count 273 K/UL (150-450) Mean Platelet Volume 7.7 FL (6.5-10.1) Neutrophils (%) (Auto) % (45.0-75.0) Lymphocytes (%) (Auto) % (20.0-45.0) Monocytes (%) (Auto) % (1.0-10.0) Eosinophils (%) (Auto) % (0.0-3.0) Basophils (%) (Auto) % (0.0-2.0) Differential Total Cells Counted 100 Neutrophils % (Manual) 80 % (45-75) H Lymphocytes % (Manual) 11 % (20-45) L Monocytes % (Manual) 4 % (1-10) Eosinophils % (Manual) 4 % (0-3) H Basophils % (Manual) 1 % (0-2) Band Neutrophils 0 % (0-8) Platelet Estimate Adequate Platelet Morphology Normal Red Blood Cell Morphology Normal Coagulation Test 05/11/17 05:50 Prothrombin Time 9.6 SEC (9.30-11.50) Prothromb Time International Ratio 0.9 (0.9-1.1) Activated Partial Thromboplast Time 22 SEC (23-33) L Chemistry Test 05/11/17 05:00 05/11/17 05:50 05/11/17 05:55 Iron Level Pending Unsaturated Iron Binding Pending Ferritin Pending Sodium Level 125 MMOL/L (136-145) L Potassium Level 5.5 MMOL/L (3.5-5.1) H Chloride Level 92 MMOL/L (98-107) L Carbon Dioxide Level 25 MMOL/L (21-32) Anion Gap 9 mmol/L (5-15) Blood Urea Nitrogen 52 mg/dL (7-18) H Creatinine 3.0 MG/DL (0.55-1.30) H Estimat Glomerular Filtration Rate 18.8 mL/min (>60) Glucose Level > 500 MG/DL (74-106) *H Lactic Acid Level 0.80 mmol/L (0.66-2.22) Calcium Level 9.2 MG/DL (8.5-10.1) Total Bilirubin 0.4 MG/DL (0.2-1.0) Aspartate Amino Transf (AST/SGOT) 26 U/L (15-37) Alanine Aminotransferase (ALT/SGPT) 16 U/L (12-78) Alkaline Phosphatase 173 U/L (46-116) H Total Creatine Kinase 174 U/L (26-308) Creatine Kinase MB 1.3 NG/ML (0.0-3.6) Creatine Kinase MB Relative Index 0.7 Troponin I 0.010 ng/mL (0.000-0.056) Total Protein 6.8 G/DL (6.4-8.2) Albumin 2.1 G/DL (3.4-5.0) L Globulin 4.7 g/dL Albumin/Globulin Ratio 0.4 (1.0-2.7) L Hemoglobin A1c > 16.0 % (4.3-6.0) H CBC post transfusion is pending so we can decide if she needs more PRBC preoperatively. Needs dynamics with electrolytes and renal function tests. Accucheck last result 485 needs accuchecks at least every 2 hours to facilitate BS control Studies Pre-op Studies: EKG - NSR Risk Assessment & Plan Assessment: ASA 3 for severe anemia CRF vs ESRD uncontrolled DM hyperglycemia, hypertension. Needs additional workout to get ready for possible surgical procedure. Cardiology consult and clearance with 2D ECHO results, CBC dynamics for possible preop transfusion, endocrinology consult with possible insulin drip BS is out of control right now. GI consult consult to rule out active bleeding. Plan: GA with LMA possible popliteal fossa block if patients condition will aloud at least lateral positioning. We will follow with patient tomorrow and ortho team will be informed. Pre-Antibiotics Drug: as scheduled RIN JAKCSON M.D. May 11, 2017 15:02
[2017-05-11 15:16] LABS: % IRON SATURATION 10 % (15-50); IRON 23 ug/dL (50-175); TOTAL IRON BINDING CAPACITY 223 ug/dL (250-450)
[2017-05-11] MEDS: NovoLOG Insulin Flexpen SUBQ SCH ×2 (15:31→20:20)
[2017-05-11 15:32] LABS: FERRITIN 772 NG/ML (8-388)
[2017-05-11] MEDS ORDERED: Insulin NovoLOG Flexpen S/S (Mod) SUBQ SCH (16:30)
[2017-05-11 16:58] LABS: BASOPHILS % (AUTO) 0.6 % (0.0-2.0); EOSINOPHILS % (AUTO) 3.1 % (0.0-3.0); HEMOGLOBIN 9.2 G/DL (12.0-16.0); LYMPHOCYTES % (AUTO) 14.5 % (20.0-45.0); MEAN CORPUSCULAR VOLUME 83 FL (80-99); MONOCYTES % (AUTO) 7.4 % (1.0-10.0); NEUTROPHILS % (AUTO) 74.4 % (45.0-75.0); PLATELET COUNT 258 K/UL (150-450); RED BLOOD COUNT 3.35 M/UL (4.20-5.40); RED CELL DISTRIBUTION WIDTH 12.3 % (11.6-14.8)
[2017-05-11] MEDS ORDERED: Norco 5mg/325mg tab ORAL PRN (17:15)
[2017-05-11 18:05] LABS: ANION GAP 8 mmol/L (5-15); BLOOD UREA NITROGEN 43 mg/dL (7-18); CALCIUM 8.7 MG/DL (8.5-10.1); CARBON DIOXIDE 21 MMOL/L (21-32); CHLORIDE 99 MMOL/L (98-107); CREATININE 2.6 MG/DL (0.55-1.30); PHOSPHORUS 3.6 MG/DL (2.5-4.9); SODIUM 128 MMOL/L (136-145)
--- NOTE | 2017-05-11 19:09 | GI Initial Consult Note ---
Spears,Tessa Rosariooi N.PBess 05/11/17 1909: History of Present Illness General Date patient seen: May 11, 2017 Time patient seen: 12:00 Reason for Hospitalization: Pain Referring physician: MARYANN DUMONT Reason for Consultation: ANEMIA Present Illness HPI Is a 71-year-old female with history hypertension and diabetes. She's also legally blind. She uses a walker to get around her house. She presents with chief complaint of right ankle pain. Also the foot pain. Can't bear weight. She fell yesterday. Denies any fever chills. No nausea no vomiting. Unable to walk. Pain is 10 out of 10 when she stands better when she lays down. Also complaining last 3 days blood sugar been running over 600. GI consulted for anemia. HPI as noted above. Pt seen in ED, awake A&Ox4 NAD with son by beside. Pt on regular diet, no noted N/V/D at this time. The patient presents with anemia low Hgb requiring blood transfusion, hyperglycemia , hypoalbuminemia, and elevated alkaline phosphatase. The patient had colonoscopy x 2 years ago at [facility] with unremarkable findings at the time. She refuses to have an upper endoscopy. Home Meds Reported Medications Clonidine Hcl* (CATAPRES*) 0.1 Mg Tablet, 0.1 MG ORAL DAILY, TAB 05/11/17 Furosemide* (LASIX*) 20 Mg Tablet, 20 MG ORAL TWICE A DAY, TAB 05/11/17 Glyburide (GLYBURIDE) 1.25 Mg Tablet, 1.25 MG PO, TAB 05/11/17 Lisinopril* (LISINOPRIL*) 40 Mg Tablet, 40 MG ORAL DAILY, TAB 05/11/17 Med list reviewed/reconciled: Yes Allergies: Coded Allergies: No Known Allergies (Unverified , 05/11/17) Patient History PMH Narrative Allergies: Coded Allergies: No Known Allergies (Unverified , 05/11/17) Past Medical History: see triage record, old chart reviewed, DM, HTN Past Surgical History: other Pertinent Family History: none Social History: Denies: smoking Last Menstrual Period: n/a Now: No Immunizations: other Reviewed Nursing Documentation: PMH: Agreed, PSxH: Agreed Nursing Documentation-PMH Past Medical History: No History, Except For Hx Cardiac Problems: Yes - irregular heartbeat Hx Hypertension: Yes Hx Diabetes: Yes Social History: Denies: smoking, alcohol use, drug use, other Review of Systems All Other Systems: negative except mentioned in HPI Physical Exam Vital Signs Date Time Temp Pulse Resp B/P (MAP) Pulse Ox O2 Delivery O2 Flow Rate FiO2 05/11/17 05:13 98.4 79 16 127/54 100 05/11/17 05:29 Room Air Sp02 EP Interpretation: reviewed, normal Labs Laboratory Tests Test 05/11/17 05:00 05/11/17 05:50 05/11/17 05:55 05/11/17 06:23 Iron Level 23 ug/dL (50-175) L Total Iron Binding Capacity 223 ug/dL (250-450) L Percent Iron Saturation 10 % (15-50) L Unsaturated Iron Binding 200 ug/dL (112-346) Ferritin 772 NG/ML (8-388) H White Blood Count 8.3 K/UL (4.8-10.8) Red Blood Count 2.40 M/UL (4.20-5.40) L Hemoglobin 6.9 G/DL (12.0-16.0) *L Hematocrit 20.9 % (37.0-47.0) L Mean Corpuscular Volume 87 FL (80-99) Mean Corpuscular Hemoglobin 28.7 PG (27.0-31.0) Mean Corpuscular Hemoglobin Concent 33.1 G/DL (32.0-36.0) Red Cell Distribution Width 12.3 % (11.6-14.8) Platelet Count 273 K/UL (150-450) Mean Platelet Volume 7.7 FL (6.5-10.1) Neutrophils (%) (Auto) % (45.0-75.0) Lymphocytes (%) (Auto) % (20.0-45.0) Monocytes (%) (Auto) % (1.0-10.0) Eosinophils (%) (Auto) % (0.0-3.0) Basophils (%) (Auto) % (0.0-2.0) Differential Total Cells Counted 100 Neutrophils % (Manual) 80 % (45-75) H Lymphocytes % (Manual) 11 % (20-45) L Monocytes % (Manual) 4 % (1-10) Eosinophils % (Manual) 4 % (0-3) H Basophils % (Manual) 1 % (0-2) Band Neutrophils 0 % (0-8) Platelet Estimate Adequate Platelet Morphology Normal Red Blood Cell Morphology Normal Prothrombin Time 9.6 SEC (9.30-11.50) Prothromb Time International Ratio 0.9 (0.9-1.1) Activated Partial Thromboplast Time 22 SEC (23-33) L Sodium Level 125 MMOL/L (136-145) L Potassium Level 5.5 MMOL/L (3.5-5.1) H Chloride Level 92 MMOL/L (98-107) L Carbon Dioxide Level 25 MMOL/L (21-32) Anion Gap 9 mmol/L (5-15) Blood Urea Nitrogen 52 mg/dL (7-18) H Creatinine 3.0 MG/DL (0.55-1.30) H Estimat Glomerular Filtration Rate 18.8 mL/min (>60) Glucose Level > 500 MG/DL (74-106) *H Lactic Acid Level 0.80 mmol/L (0.66-2.22) Calcium Level 9.2 MG/DL (8.5-10.1) Total Bilirubin 0.4 MG/DL (0.2-1.0) Aspartate Amino Transf (AST/SGOT) 26 U/L (15-37) Alanine Aminotransferase (ALT/SGPT) 16 U/L (12-78) Alkaline Phosphatase 173 U/L (46-116) H Total Creatine Kinase 174 U/L (26-308) Creatine Kinase MB 1.3 NG/ML (0.0-3.6) Creatine Kinase MB Relative Index 0.7 Troponin I 0.010 ng/mL (0.000-0.056) Total Protein 6.8 G/DL (6.4-8.2) Albumin 2.1 G/DL (3.4-5.0) L Globulin 4.7 g/dL Albumin/Globulin Ratio 0.4 (1.0-2.7) L Hemoglobin A1c > 16.0 % (4.3-6.0) H Urine Color Pale yellow Urine Appearance Turbid Urine pH 5 (4.5-8.0) Urine Specific Mcintyre 1.010 (1.005-1.035) Urine Protein 4+ (NEGATIVE) H Urine Glucose (UA) 4+ (NEGATIVE) H Urine Ketones Negative (NEGATIVE) Urine Occult Blood 2+ (NEGATIVE) H Urine Nitrite Negative (NEGATIVE) Urine Bilirubin Negative (NEGATIVE) Urine Urobilinogen Normal MG/DL (0.0-1.0) Urine Leukocyte Esterase Negative (NEGATIVE) Urine RBC 2-4 /HPF (0 - 2) H Urine WBC 0-2 /HPF (0 - 2) Urine Squamous Epithelial Cells Occasional /LPF Urine Amorphous Sediment Moderate /LPF (NONE) H Urine Bacteria Few /HPF (NONE) Test 05/11/17 16:30 05/11/17 18:15 White Blood Count 7.0 K/UL (4.8-10.8) Red Blood Count 3.35 M/UL (4.20-5.40) L Hemoglobin 9.2 G/DL (12.0-16.0) #L Hematocrit 28.0 % (37.0-47.0) #L Mean Corpuscular Volume 83 FL (80-99) Mean Corpuscular Hemoglobin 27.4 PG (27.0-31.0) Mean Corpuscular Hemoglobin Concent 32.9 G/DL (32.0-36.0) Red Cell Distribution Width 12.3 % (11.6-14.8) Platelet Count 258 K/UL (150-450) Mean Platelet Volume 7.0 FL (6.5-10.1) Neutrophils (%) (Auto) 74.4 % (45.0-75.0) Lymphocytes (%) (Auto) 14.5 % (20.0-45.0) L Monocytes (%) (Auto) 7.4 % (1.0-10.0) Eosinophils (%) (Auto) 3.1 % (0.0-3.0) H Basophils (%) (Auto) 0.6 % (0.0-2.0) Sodium Level 128 MMOL/L (136-145) L Potassium Level 4.0 MMOL/L (3.5-5.1) Chloride Level 99 MMOL/L (98-107) Carbon Dioxide Level 21 MMOL/L (21-32) Anion Gap 8 mmol/L (5-15) Blood Urea Nitrogen 43 mg/dL (7-18) H Creatinine 2.6 MG/DL (0.55-1.30) H Estimat Glomerular Filtration Rate 22.2 mL/min (>60) Glucose Level 426 MG/DL (74-106) H Calcium Level 8.7 MG/DL (8.5-10.1) Phosphorus Level 3.6 MG/DL (2.5-4.9) Magnesium Level 1.6 MG/DL (1.8-2.4) L Lactate Dehydrogenase 220 U/L (81-234) Vitamin B12 Level 1124 PG/ML (193-986) H Methylmalonic Acid Pending Thyroid Stimulating Hormone (TSH) 4.914 uiU/mL (0.360-3.740) Folate Pending General Appearance: well appearing, no apparent distress, alert Head: normocephalic EENT: PERRL/EOMI, normal ENT inspection Neck: supple Respiratory: normal breath sounds, no respiratory distress Cardiovascular: normal rate Gastrointestinal: normal inspection, non tender, soft, normal bowel sounds, non -distended Rectal: deferred Genitourinary: no CVA tenderness Musculoskeletal: normal inspection, back normal Neurologic: normal inspection, alert, oriented x3, responsive Psychiatric: normal inspection, judgement/insight normal, memory normal Skin: normal inspection, normal color, no rash, warm/dry, palpation normal, well hydrated Lymphatic: normal inspection, no adenopathy Current Medications Current Medications Medications (Trade) Dose Ordered Sig/Andre Route PRN Reason Start Time Stop Time Status Last Admin Dose Admin Acetaminophen/ Hydrocodone Bitart (Mystic 5/325) 1 tab Q4H PRN ORAL Moderate Pain (Pain Scale 4-6) 05/11/17 17:15 05/18/17 17:14 Clonidine HCl (Catapres) 0.1 mg TIDPRN PRN ORAL SBP>160 05/11/17 15:30 06/10/17 15:29 05/11/17 16:25 Dextrose (Dextrose 50%) STAT PRN IV Hypoglycemia 05/11/17 08:45 06/10/17 08:44 Heparin Sodium (Porcine) (Heparin 5000 units/ml) 5,000 units EVERY 12 HOURS SUBQ 05/11/17 21:00 06/10/17 20:59 Insulin Aspart (NovoLOG) No Dose Q4HR SUBQ 05/11/17 17:00 06/10/17 16:29 05/11/17 15:31 Pantoprazole (Protonix) 40 mg DAILY ORAL 05/11/17 15:45 06/10/17 15:44 05/11/17 16:28 Sodium Chloride 1,000 ml @ 100 mls/hr Q10H IV 05/11/17 14:30 06/10/17 14:29 05/11/17 15:30 GI: Plan Problems: (1) Hypoalbuminemia (2) Alkaline phosphatase elevation (3) Anemia (4) Hyperglycemia due to type 2 diabetes mellitus Plan s/p colonoscopy x 2 years at [facility] with unremarkable results per patient refuses to have EGD done at this time anemia work up OB stool r/o GI bleed monitor H&H, prn transfusions bowel regime ppi DM mgmt fu labs, GGT Discussed with Dr. Herring. Thank you for this patient referral, we will follow. CHUCHO HERRING 05/13/17 0949: History of Present Illness General Reason for Hospitalization: Pain Present Illness Home Meds Reported Medications Clonidine Hcl* (CATAPRES*) 0.1 Mg Tablet, 0.1 MG ORAL DAILY, TAB 05/11/17 Furosemide* (LASIX*) 20 Mg Tablet, 20 MG ORAL TWICE A DAY, TAB 05/11/17 Glyburide (GLYBURIDE) 1.25 Mg Tablet, 1.25 MG PO, TAB 05/11/17 Lisinopril* (LISINOPRIL*) 40 Mg Tablet, 40 MG ORAL DAILY, TAB 05/11/17 Allergies: Coded Allergies: No Known Allergies (Unverified , 05/11/17) GI: Plan Plan The patient was seen and examined at bedside and all new and available data was reviewed in the patients chart. I agree with the above findings, impression and plan. (Patient seen earlier today. Signature stamp does not reflect patient encounter time.). - MD Tory Tavares,[facility] Jayden N.P. May 11, 2017 19:09 CHUCHO HERRING May 13, 2017 09:49
--- NOTE | 2017-05-11 19:45 | Consultation ---
DATE OF CONSULTATION: 05/11/2017 ORTHOPEDIC CONSULTATION CONSULTING PHYSICIAN: Delmer Colón M.D. HISTORY OF PRESENT ILLNESS: This is a 71-year-old female, who is legally blind and has uncontrolled diabetes who had a fall in her home where she sustained a right ankle pain. She was brought to [facility] where she was noted to have a trimalleolar fracture dislocation. She was reduced and splinted, although alignment is still not anatomic and Orthopedic consult has been called for surgical intervention. She also noted to be profoundly anemic and she is currently receiving 2 units of blood transfusion. Source of anemia is currently unknown. She complains of right ankle pain. PAST MEDICAL HISTORY: Uncontrolled diabetes and anemia. PAST SURGICAL HISTORY: None. CURRENT MEDICATIONS: See chart. ALLERGIES: None. SOCIAL HISTORY: The patient is legally blind. She ambulates with a walker. PHYSICAL EXAMINATION: She is cooperative to examination. She has got a right lower extremity splint on that is well padded. She is able to wiggle her toes. IMAGING STUDIES: X-rays reviewed. There is a trimalleolar fracture dislocation, which upon reduction does reduce the posterior malleolar component, however, the medial and lateral malleolar fractures are still displaced with widening of the mortise. IMPRESSION: 1. Right ankle trimalleolar fracture. 2. Uncontrolled diabetes. 3. Anemia of unknown source. DISCUSSION: At this time, I discussed with the patient my findings. With regards to her fracture, we will need to address this surgically with open reduction and internal fixation with plates and screws. She understands that if we treat this nonoperatively that she will have poor healing, poor alignment, and very unlikely be able to ambulate well. Risks of surgery including nerve injury, vessel injury, risk of infection, and bleeding were discussed with her. The risk of fracture, hardware failure, painful hardware, need for revision surgery, and hardware removal down the line were discussed with her. She also has significantly uncontrolled diabetes and she is at great risk for postoperative wound infection, so she will need tight diabetic control. She is currently getting 2 units of packed red blood cells, which is appropriate. A repeat CBC will be drawn after transfusion is completed to ensure improvement in hemoglobin and hematocrit. All the patient's questions were answered. We did ask for preoperative medical clearance in anticipation for surgery tomorrow. Delmer Colón M.D. Chris Cramer DR: NEVIN JOB#: [id number] CC:
[2017-05-11] MEDS: Heparin 5000 units/ml inj SUBQ SCH (20:19)
[2017-05-12] VITALS: BP 135/57
[2017-05-12] MEDS: NovoLOG Insulin Flexpen SUBQ SCH ×9 (01:01→21:29)
[2017-05-12 04:00] VITALS: BP 144/64
[2017-05-12 06:10] LABS: INR 0.9 (0.9-1.1)
[2017-05-12 06:31] LABS: ALANINE AMINOTRANSFERASE 11 U/L (12-78); ALBUMIN 1.7 G/DL (3.4-5.0); ALBUMIN/GLOBULIN RATIO 0.4 (1.0-2.7); ALKALINE PHOSPHATASE 120 U/L (46-116); ANION GAP 9 mmol/L (5-15); ASPARTATE AMINO TRANSFERASE 9 U/L (15-37); BILIRUBIN,TOTAL 0.3 MG/DL (0.2-1.0); BLOOD UREA NITROGEN 41 mg/dL (7-18); CALCIUM 8.9 MG/DL (8.5-10.1); CARBON DIOXIDE 23 MMOL/L (21-32); CHLORIDE 99 MMOL/L (98-107); CHOLESTEROL 174 MG/DL (< 200); CREATINE KINASE 70 U/L (26-308); CREATININE 2.4 MG/DL (0.55-1.30); GAMMA GLUTAMYL TRANSPEPTIDASE 15 U/L (5-85); HDL CHOLESTEROL 55 MG/DL (40-60); PHOSPHORUS 3.4 MG/DL (2.5-4.9); POTASSIUM 4.2 MMOL/L (3.5-5.1); SODIUM 131 MMOL/L (136-145); TRIGLYCERIDES 192 MG/DL (0-200)
[2017-05-12 06:47] LABS: BASOPHILS % (AUTO) 0.9 % (0.0-2.0); EOSINOPHILS % (AUTO) 4.3 % (0.0-3.0); HEMATOCRIT 27.4 % (37.0-47.0); HEMOGLOBIN 8.7 G/DL (12.0-16.0); LYMPHOCYTES % (AUTO) 19.8 % (20.0-45.0); MEAN CORPUSCULAR VOLUME 85 FL (80-99); MONOCYTES % (AUTO) 7.9 % (1.0-10.0); NEUTROPHILS % (AUTO) 67.1 % (45.0-75.0); PLATELET COUNT 271 K/UL (150-450); RED BLOOD COUNT 3.22 M/UL (4.20-5.40); RED CELL DISTRIBUTION WIDTH 12.5 % (11.6-14.8); WHITE BLOOD COUNT 7.1 K/UL (4.8-10.8)
[2017-05-12 08:00] VITALS: BP 147/60
--- NOTE | 2017-05-12 09:00 | Consultation ---
DATE OF CONSULTATION: 05/11/2017 HEMATOLOGY/ONCOLOGY CONSULTATION CONSULTING PHYSICIAN: Asa Mcgrath M.D. REFERRING PHYSICIAN: Celestine Stevens M.D. ATTENDING PHYSICIAN: Pierre Coughlin M.D. REASON FOR CONSULTATION: Evaluation of anemia. IDENTIFICATION DATA: Dear Dr. Sprague, The patient is a pleasant 71-year-old female with past medical history which is significant for diabetes mellitus as well as legal blindness. She uses a walker to get around, hypertension, at this time presents to [facility] with pain. Complains of right ankle pain, noted to have a fracture, has been seen by Orthopedic surgery as well as Nephrology. Blood sugar has been elevated above 600 for the past several days as well. Hematology Service was consulted given the patient has severe anemia. PAST MEDICAL HISTORY: Diabetes mellitus and hypertension. PAST SURGICAL HISTORY: None noted. SOCIAL HISTORY: No alcohol, tobacco, or illicit drug use. FAMILY HISTORY: Noncontributory. REVIEW OF SYSTEMS: CONSTITUTIONAL: No fever, chills, or night sweats. SKIN: No rashes, bumps, or itching. HEENT: No headache, hearing or vision changes. BREASTS: No lumps, pain, or discharge. PULMONARY: Positive shortness of breath. GASTROINTESTINAL: No nausea, vomiting, or diarrhea. GENITOURINARY: No dysuria, frequency, or urgency. MUSCULOSKELETAL: No joint swelling, muscle pain, or trauma. PHYSICAL EXAMINATION: GENERAL: No acute distress. VITAL SIGNS: Reviewed. Temperature 96 degrees Fahrenheit, pulse of 70, respiratory rate 12, blood pressure 112/76, and pulse oximetry 95% on room air. PULMONARY: Decreased breath sounds. CARDIOVASCULAR: Regular rate. No S3 or S4. ABDOMEN: Soft, nontender, and nondistended. EXTREMITIES: 1+ edema. LABORATORY DATA: WBC 8.3, hemoglobin 6.9, hematocrit 21, platelet count 273,000, neutrophils 80%. BUN of 52 and creatinine of 3. A1c of greater than 16. INR 0.9 and PTT of 22. . ASSESSMENT AND RECOMMENDATION: 1. Anemia, likely related to anemia of chronic disease, workup has been ordered including iron panel, ferritin, B12, TSH, folate, LDH, methylmalonic acid, reticulocyte count. Hemoglobin goal is above 7. 2. Coagulopathy, potentially secondary to vitamin K dependence. 3. Dislocation of subtalar joint. To be seen by Orthopedic Surgery. We will continue to monitor, potentially may require surgical intervention. 4. Hypertension, currently better controlled. 5. Diabetes mellitus, blood sugar above 600. 6. Acute kidney injury. Kidney ultrasound pending. Dr. Loomis to further evaluate. I appreciate the consultation. Asa Mcgrath M.D. DR: Magi JOB#: [id number] CC:
--- NOTE | 2017-05-12 09:02 | Consultation ---
DATE OF CONSULTATION: 05/11/2017 ENDOCRINOLOGY CONSULTATION CONSULTING PHYSICIAN: Judah Antoine M.D. REFERRING PHYSICIAN: Pierre Coughlin M.D. REASON FOR CONSULTATION: Diabetes management. HISTORY OF PRESENT ILLNESS: The patient is an unfortunate 71-year-old female with longstanding history of diabetes, uncontrolled with multiple complications. She is blind. She has chronic kidney disease and she has severe neuropathy. The patient is admitted to the hospital after she fell at home and broke her right ankle. The patient's blood sugar was over 400. The patient is admitted for observation and treatment and she is going to be taken to the OR the day after tomorrow, and I was called to manage diabetes. PAST MEDICAL HISTORY: 1. Type 2 diabetes, uncontrolled. 2. Blindness. 3. Hypertension. 4. Peripheral neuropathy. 5. Retinopathy. 6. Chronic kidney disease. MEDICATIONS: Reviewed and reconciled. FAMILY HISTORY: Noncontributory. SOCIAL HISTORY: No smoking, no alcohol, or no drug use. REVIEW OF SYSTEMS: As per HPI. PHYSICAL EXAMINATION: VITAL SIGNS: The patient's blood pressure is 174/80, pulse 74, respiratory rate 20, and temperature 96.3. HEENT: The patient is blind. NECK: No JVD. HEART: Regular. LUNGS: Clear. ABDOMEN: Positive bowel sounds. Soft. EXTREMITIES: No clubbing or cyanosis. Positive for edema. LABORATORIES: WBC is 7, hemoglobin 9, hematocrit 28, platelets 258,000. Sodium is 128, potassium 4, chloride 99, bicarbonate 21, BUN 43, creatinine 2.6, glucose 426, A1c over 16. TSH is 4.9. B12 is 1124. DIAGNOSES: 1. Diabetes, uncontrolled due to noncompliance with medication. 2. Chronic kidney disease. 3. Right ankle fracture. 4. Abnormal thyroid function test. PLAN: 1. I will start Levemir 20 units at bedtime. 2. NovoLog 6 units before each meal. 3. SSI is in order. 4. Discontinue all medications. 5. IV hydration. 6. Repeat thyroid function test. 7. I will follow the patient during hospital stay for the management of diabetes. Thank you, Dr. Coughlin for the courtesy of this consultation. Judah Antoine M.D. DR: Nish JOB#: [id number] CC: REKHA
--- NOTE | 2017-05-12 09:45 | Diagnostic Imaging Report ---
Indication:Elevated Bun and Creatinine. Technique: Grayscale and duplex Doppler imaging of the kidneys performed. Comparison: None Findings: Kidneys are symmetric measuring between 11 and 12 cm. Cortical echogenicity is normal. There is a cyst in the right kidney measuring 7 cm in the lower pole. There is no hydronephrosis. IVC is unremarkable in appearance. Urinary bladder is unremarkable. Impression: Right renal cyst.
[2017-05-12] MEDS: Heparin 5000 units/ml inj SUBQ SCH ×2 (11:37→21:22)
[2017-05-12] MEDS: Docusate 100mg cap ORAL SCH ×2 (11:38→17:33)
--- NOTE | 2017-05-12 11:38 | General Progress Note ---
Assessment/Plan Assessment/Plan ASSESSMENT AND RECOMMENDATION: 1. Anemia, likely related to anemia of chronic disease, workup has been ordered and full results pending --> s/p 2 units prbc 2. Coagulopathy, potentially secondary to vitamin K 3. Dislocation of subtalar joint. To be seen by Orthopedic Surgery. We will continue to monitor, potentially may require surgical intervention. 4. Hypertension, currently better controlled. 5. Diabetes mellitus, blood sugar above 600. 6. Acute kidney injury. Kidney ultrasound reviewed. Subjective HEENT: Reports: no symptoms Cardiovascular: Reports: no symptoms Respiratory: Reports: no symptoms Neurologic/Psychiatric: Reports: pre-existing deficit Hematologic/Lymphatic: Reports: anemia Allergies: Coded Allergies: No Known Allergies (Unverified , 05/11/17) All Systems: reviewed and negative except above Subjective foot pain better with pain meds Objective Last 24 Hour Vital Signs Date Time Temp Pulse Resp B/P (MAP) Pulse Ox O2 Delivery O2 Flow Rate FiO2 05/12/17 08:00 83 05/12/17 08:00 98.0 83 18 147/60 96 Room Air 05/12/17 04:00 73 05/12/17 04:00 98.2 70 20 144/64 96 Room Air 05/12/17 00:00 98.2 70 20 135/57 95 Room Air 05/12/17 00:00 70 05/11/17 20:00 68 05/11/17 20:00 98.4 70 20 153/67 95 Room Air 05/11/17 16:54 75 05/11/17 16:25 174/80 05/11/17 16:00 96.3 74 20 174/80 95 Room Air 05/11/17 14:40 97.2 72 18 179/65 92 Room Air 05/11/17 12:41 97.2 72 18 179/65 92 Room Air Intake and Output 05/12/17 05/13/17 19:00 07:00 Intake Total 300 ml Balance 300 ml Intake Oral 300 ml Laboratory Tests 05/11/17 16:00: Urine Random Sodium 40 05/11/17 16:30: White Blood Count 7.0, Red Blood Count 3.35L, Hemoglobin 9.2#L, Hematocrit 28.0# L, Mean Corpuscular Volume 83, Mean Corpuscular Hemoglobin 27.4, Mean Corpuscular Hemoglobin Concent 32.9, Red Cell Distribution Width 12.3, Platelet Count 258, Mean Platelet Volume 7.0, Neutrophils (%) (Auto) 74.4, Lymphocytes (% ) (Auto) 14.5L, Monocytes (%) (Auto) 7.4, Eosinophils (%) (Auto) 3.1H, Basophils (%) (Auto) 0.6, Sodium Level 128L, Potassium Level 4.0, Chloride Level 99, Carbon Dioxide Level 21, Anion Gap 8, Blood Urea Nitrogen 43H, Creatinine 2.6H, Estimat Glomerular Filtration Rate 22.2, Glucose Level 426H, Calcium Level 8.7, Phosphorus Level 3.6, Magnesium Level 1.6L, Lactate Dehydrogenase 220, Vitamin B12 Level 1124H, Methylmalonic Acid [Pending], Thyroid Stimulating Hormone (TSH) 4.914H 05/11/17 18:15: Folate 8.5 05/12/17 04:00: Urine Eosinophils None seen 05/12/17 04:15: White Blood Count 7.1, Red Blood Count 3.22L, Hemoglobin 8.7L, Hematocrit 27.4L , Mean Corpuscular Volume 85, Mean Corpuscular Hemoglobin 27.0, Mean Corpuscular Hemoglobin Concent 31.7L, Red Cell Distribution Width 12.5, Platelet Count 271, Mean Platelet Volume 7.5, Neutrophils (%) (Auto) 67.1, Lymphocytes (%) (Auto) 19.8L, Monocytes (%) (Auto) 7.9, Eosinophils (%) (Auto) 4.3H, Basophils (%) (Auto) 0.9, Reticulocyte Count 0.9, Prothrombin Time 9.7, Prothromb Time International Ratio 0.9, Activated Partial Thromboplast Time 31, Sodium Level 131L, Potassium Level 4.2, Chloride Level 99, Carbon Dioxide Level 23, Anion Gap 9, Blood Urea Nitrogen 41H, Creatinine 2.4H, Estimat Glomerular Filtration Rate 24.2, Glucose Level 303#H, Uric Acid 7.6H, Calcium Level 8.9, Phosphorus Level 3.4, Magnesium Level 1.9, Total Bilirubin 0.3, Gamma Glutamyl Transpeptidase 15, Aspartate Amino Transf (AST/SGOT) 9L, Alanine Aminotransferase (ALT/SGPT) 11L, Alkaline Phosphatase 120H, Total Creatine Kinase 70, Troponin I 0.002, C-Reactive Protein, Quantitative 11.5H, Pro-B-Type Natriuretic Peptide 3028H, Total Protein 5.8L, Albumin 1.7L, Globulin 4.1, Albumin/Globulin Ratio 0.4L, Triglycerides Level 192, Cholesterol Level 174, LDL Cholesterol 101H, HDL Cholesterol 55, Cholesterol/HDL Ratio 3.2L, Free Thyroxine 1.06 Height (Feet): 5 Height (Inches): 7.00 Weight (Pounds): 189 General Appearance: no apparent distress EENT: normal ENT inspection Neck: normal alignment Cardiovascular: regular rhythm Respiratory/Chest: no accessory muscle use Abdomen: non tender Extremities: non-tender Skin: warm/dry Asa Mcgrath May 12, 2017 11:38
[2017-05-12 12:00] VITALS: BP 151/69
--- NOTE | 2017-05-12 12:00 | GI Progress Note ---
Assessment/Plan Problems: (1) Uncontrolled diabetes mellitus ICD Codes: E11.65 - Type 2 diabetes mellitus with hyperglycemia SNOMED: 64191265, 292024994 (2) Alkaline phosphatase elevation ICD Codes: R74.8 - Abnormal levels of other serum enzymes SNOMED: 921007587 (3) Hypoalbuminemia ICD Codes: E88.09 - Other disorders of plasma-protein metabolism, not elsewhere classified SNOMED: 873179860 (4) Anemia ICD Codes: D64.9 - Anemia, unspecified SNOMED: 749068457 Status: unchanged Status Narrative Discussed with Dr. Wilkins. Assessment/Plan s/p colonoscopy x 2 years at [facility] with unremarkable results per patient agreed to have EGD, patient scheduled for OR for Left ankle fx tomorrow anemia work up >> iron deficient, venofer fu OB stool r/o GI bleed monitor H&H, prn transfusions bowel regime >> colace + miralax ppi DM mgmt fu labs The patient was seen and examined at bedside and all new and available data was reviewed in the patients chart. I agree with the above findings, impression and plan. (Patient seen earlier today. Signature stamp does not reflect patient encounter time.). - Sherif Wilkins MD Subjective Subjective constipated Objective Last 24 Hour Vital Signs Date Time Temp Pulse Resp B/P (MAP) Pulse Ox O2 Delivery O2 Flow Rate FiO2 05/12/17 08:00 83 05/12/17 08:00 98.0 83 18 147/60 96 Room Air 05/12/17 04:00 73 05/12/17 04:00 98.2 70 20 144/64 96 Room Air 05/12/17 00:00 98.2 70 20 135/57 95 Room Air 05/12/17 00:00 70 05/11/17 20:00 68 05/11/17 20:00 98.4 70 20 153/67 95 Room Air 05/11/17 16:54 75 05/11/17 16:25 174/80 05/11/17 16:00 96.3 74 20 174/80 95 Room Air 05/11/17 14:40 97.2 72 18 179/65 92 Room Air 05/11/17 12:41 97.2 72 18 179/65 92 Room Air Intake and Output 05/12/17 05/13/17 19:00 07:00 Intake Total 300 ml Balance 300 ml Intake Oral 300 ml Laboratory Tests Test 05/11/17 16:00 05/11/17 16:30 05/11/17 18:15 05/12/17 04:00 Urine Random Sodium 40 MEQ/L (20-110) White Blood Count 7.0 K/UL (4.8-10.8) Red Blood Count 3.35 M/UL (4.20-5.40) L Hemoglobin 9.2 G/DL (12.0-16.0) #L Hematocrit 28.0 % (37.0-47.0) #L Mean Corpuscular Volume 83 FL (80-99) Mean Corpuscular Hemoglobin 27.4 PG (27.0-31.0) Mean Corpuscular Hemoglobin Concent 32.9 G/DL (32.0-36.0) Red Cell Distribution Width 12.3 % (11.6-14.8) Platelet Count 258 K/UL (150-450) Mean Platelet Volume 7.0 FL (6.5-10.1) Neutrophils (%) (Auto) 74.4 % (45.0-75.0) Lymphocytes (%) (Auto) 14.5 % (20.0-45.0) L Monocytes (%) (Auto) 7.4 % (1.0-10.0) Eosinophils (%) (Auto) 3.1 % (0.0-3.0) H Basophils (%) (Auto) 0.6 % (0.0-2.0) Sodium Level 128 MMOL/L (136-145) L Potassium Level 4.0 MMOL/L (3.5-5.1) Chloride Level 99 MMOL/L (98-107) Carbon Dioxide Level 21 MMOL/L (21-32) Anion Gap 8 mmol/L (5-15) Blood Urea Nitrogen 43 mg/dL (7-18) H Creatinine 2.6 MG/DL (0.55-1.30) H Estimat Glomerular Filtration Rate 22.2 mL/min (>60) Glucose Level 426 MG/DL (74-106) H Calcium Level 8.7 MG/DL (8.5-10.1) Phosphorus Level 3.6 MG/DL (2.5-4.9) Magnesium Level 1.6 MG/DL (1.8-2.4) L Lactate Dehydrogenase 220 U/L (81-234) Vitamin B12 Level 1124 PG/ML (193-986) H Methylmalonic Acid Pending Thyroid Stimulating Hormone (TSH) 4.914 uiU/mL (0.360-3.740) Folate 8.5 NG/ML (3.1-17.5) Urine Eosinophils None seen Test 05/12/17 04:15 White Blood Count 7.1 K/UL (4.8-10.8) Red Blood Count 3.22 M/UL (4.20-5.40) L Hemoglobin 8.7 G/DL (12.0-16.0) L Hematocrit 27.4 % (37.0-47.0) L Mean Corpuscular Volume 85 FL (80-99) Mean Corpuscular Hemoglobin 27.0 PG (27.0-31.0) Mean Corpuscular Hemoglobin Concent 31.7 G/DL (32.0-36.0) L Red Cell Distribution Width 12.5 % (11.6-14.8) Platelet Count 271 K/UL (150-450) Mean Platelet Volume 7.5 FL (6.5-10.1) Neutrophils (%) (Auto) 67.1 % (45.0-75.0) Lymphocytes (%) (Auto) 19.8 % (20.0-45.0) L Monocytes (%) (Auto) 7.9 % (1.0-10.0) Eosinophils (%) (Auto) 4.3 % (0.0-3.0) H Basophils (%) (Auto) 0.9 % (0.0-2.0) Reticulocyte Count 0.9 % (0.0-2.0) Prothrombin Time 9.7 SEC (9.30-11.50) Prothromb Time International Ratio 0.9 (0.9-1.1) Activated Partial Thromboplast Time 31 SEC (23-33) Sodium Level 131 MMOL/L (136-145) L Potassium Level 4.2 MMOL/L (3.5-5.1) Chloride Level 99 MMOL/L (98-107) Carbon Dioxide Level 23 MMOL/L (21-32) Anion Gap 9 mmol/L (5-15) Blood Urea Nitrogen 41 mg/dL (7-18) H Creatinine 2.4 MG/DL (0.55-1.30) H Estimat Glomerular Filtration Rate 24.2 mL/min (>60) Glucose Level 303 MG/DL (74-106) #H Uric Acid 7.6 MG/DL (2.6-7.2) H Calcium Level 8.9 MG/DL (8.5-10.1) Phosphorus Level 3.4 MG/DL (2.5-4.9) Magnesium Level 1.9 MG/DL (1.8-2.4) Total Bilirubin 0.3 MG/DL (0.2-1.0) Gamma Glutamyl Transpeptidase 15 U/L (5-85) Aspartate Amino Transf (AST/SGOT) 9 U/L (15-37) L Alanine Aminotransferase (ALT/SGPT) 11 U/L (12-78) L Alkaline Phosphatase 120 U/L (46-116) H Total Creatine Kinase 70 U/L (26-308) Troponin I 0.002 ng/mL (0.000-0.056) C-Reactive Protein, Quantitative 11.5 mg/dL (0.00-0.90) H Pro-B-Type Natriuretic Peptide 3028 pg/mL (0-125) H Total Protein 5.8 G/DL (6.4-8.2) L Albumin 1.7 G/DL (3.4-5.0) L Globulin 4.1 g/dL Albumin/Globulin Ratio 0.4 (1.0-2.7) L Triglycerides Level 192 MG/DL (0-200) Cholesterol Level 174 MG/DL (< 200) LDL Cholesterol 101 mg/dL (<100) H HDL Cholesterol 55 MG/DL (40-60) Cholesterol/HDL Ratio 3.2 (3.3-4.4) L Free Thyroxine 1.06 NG/DL (0.10-1.46) Height (Feet): 5 Height (Inches): 7.00 Weight (Pounds): 189 General Appearance: WD/WN, no apparent distress, alert Cardiovascular: normal rate Respiratory/Chest: normal breath sounds, no respiratory distress Abdominal Exam: normal bowel sounds, non tender, soft Tessa Spears N.P. May 12, 2017 12:00 CHUCHO WILKINS May 13, 2017 09:50
--- NOTE | 2017-05-12 13:36 | Wound Nurse Progress Note ---
Wound RN Progress Note Wound Consult Pt With DX of ankle/Trimalleolar fracture and ecchymotic 1st and 2nd toe. No wound care recommendation at this time. Follow MD's order. MAURY LEMA RN May 12, 2017 13:36
--- NOTE | 2017-05-12 15:43 | General Progress Note ---
Assessment/Plan Problem List: (1) Trimalleolar fracture of right ankle ICD Codes: S82.851A - Displaced trimalleolar fracture of right lower leg, initial encounter for closed fracture SNOMED: 021680929, 44148857 Qualifiers: Qualified Codes: S82.851A - Displaced trimalleolar fracture of right lower leg, initial encounter for closed fracture (2) Status post fall ICD Codes: Z91.81 - History of falling SNOMED: 934858265 (3) Uncontrolled diabetes mellitus ICD Codes: E11.65 - Type 2 diabetes mellitus with hyperglycemia SNOMED: 25262404, 335400120 (4) HTN (hypertension) ICD Codes: I10 - Essential (primary) hypertension SNOMED: 27386174 (5) Hyperkalemia ICD Codes: E87.5 - Hyperkalemia SNOMED: 08524363 (6) ZENY (acute kidney injury) ICD Codes: N17.9 - Acute kidney failure, unspecified SNOMED: 12805090 (7) Hyponatremia ICD Codes: E87.1 - Hypo-osmolality and hyponatremia SNOMED: 70647924 (8) Pre-syncope ICD Codes: R55 - Syncope and collapse SNOMED: 465456500 (9) Anemia ICD Codes: D64.9 - Anemia, unspecified SNOMED: 888785657 Status: stable Assessment/Plan Ortho consulted, appreciate rec's--plan for OR tomorrow, NPO at [place] Endo consulted, appreciate rec's Novolog 6U TID AC SSI q4h Pt refusing long acting insulin, stating she has h/o "heart arrhythmia" with it prior Renal consulted, appreciate rec's Hold IVFs Check urine lytes, renal U/S TTE reviewed and pt w/ normal EF Hold home lasix, lisinopril given ZENY (unknown baseline SCr) Clonidine PRN SBP>160 GI consulted, appreciate rec's PPI Pt refusing EGD s/p 2U pRBCs on 05/11/17 Trend CBC Heme/onc consulted, appreciate rec's If patient is required to have surgery, based on the patient's medical history, and other available ancillary data, the patient is a INTERMEDIATE risk for an INTERMEDIATE risk procedure. Per the most recent ACC/AHA guidelines, the patient does not need any further cardiopulmonary testing prior to the procedure and there do not appear to be any clear medical contraindications to proceeding with the proposed procedure. DVT Prophylaxis: SCD, HSQ Code Status: Full Hospital Classification Declaration: Based on this initial evaluation, and depending on the patient's clinical course, I anticipate that this patient will require hospitalization for 2-3 days for ankle fracture, uncontrolled diabetes, anemia and close respiratory/hemodynamic monitoring. Disposition: Once the patient is stable to leave the hospital, I anticipate the patient will likely be discharged to the following environment: home with HH + CG vs SNF I spent 45 minutes on this patient's case, and 25 minutes were dedicated to counseling and/or care coordination. Discussed with patient/family, nursing staff, SW/CM, endo, surgery, renal, GI regarding clinical status, treatment course, and disposition planning. Time of note may not reflect time of encounter. Subjective Date patient seen: May 12, 2017 Time patient seen: 15:43 ROS Limited/Unobtainable: No Constitutional: Reports: no symptoms HEENT: Reports: no symptoms Cardiovascular: Reports: no symptoms Respiratory: Reports: no symptoms Gastrointestinal/Abdominal: Reports: no symptoms Genitourinary: Reports: no symptoms Neurologic/Psychiatric: Reports: no symptoms Endocrine: Reports: no symptoms Hematologic/Lymphatic: Reports: no symptoms Allergies: Coded Allergies: No Known Allergies (Unverified , 05/11/17) All Systems: reviewed and negative except above Subjective No acute o/n events Hgb slightly down to 8.7. No e/o active bleeding Cr slowly downtrending Na improving TTE shows normal EF BG now in high 200s Pt doing well. Says pain controlled. Denies f/c, n/v, d/c, chest pain, SOB Objective Last 24 Hour Vital Signs Date Time Temp Pulse Resp B/P (MAP) Pulse Ox O2 Delivery O2 Flow Rate FiO2 05/12/17 12:23 77 05/12/17 12:00 97.8 79 18 151/69 99 Room Air 05/12/17 08:00 83 05/12/17 08:00 98.0 83 18 147/60 96 Room Air 05/12/17 04:00 73 05/12/17 04:00 98.2 70 20 144/64 96 Room Air 05/12/17 00:00 98.2 70 20 135/57 95 Room Air 05/12/17 00:00 70 05/11/17 20:00 68 05/11/17 20:00 98.4 70 20 153/67 95 Room Air 05/11/17 16:54 75 05/11/17 16:25 174/80 05/11/17 16:00 96.3 74 20 174/80 95 Room Air Intake and Output 05/12/17 05/13/17 19:00 07:00 Intake Total 300 ml Balance 300 ml Intake Oral 300 ml Laboratory Tests 05/11/17 16:00: Urine Random Sodium 40 05/11/17 16:30: White Blood Count 7.0, Red Blood Count 3.35L, Hemoglobin 9.2#L, Hematocrit 28.0# L, Mean Corpuscular Volume 83, Mean Corpuscular Hemoglobin 27.4, Mean Corpuscular Hemoglobin Concent 32.9, Red Cell Distribution Width 12.3, Platelet Count 258, Mean Platelet Volume 7.0, Neutrophils (%) (Auto) 74.4, Lymphocytes (% ) (Auto) 14.5L, Monocytes (%) (Auto) 7.4, Eosinophils (%) (Auto) 3.1H, Basophils (%) (Auto) 0.6, Sodium Level 128L, Potassium Level 4.0, Chloride Level 99, Carbon Dioxide Level 21, Anion Gap 8, Blood Urea Nitrogen 43H, Creatinine 2.6H, Estimat Glomerular Filtration Rate 22.2, Glucose Level 426H, Calcium Level 8.7, Phosphorus Level 3.6, Magnesium Level 1.6L, Lactate Dehydrogenase 220, Vitamin B12 Level 1124H, Methylmalonic Acid [Pending], Thyroid Stimulating Hormone (TSH) 4.914H 05/11/17 18:15: Folate 8.5 05/12/17 04:00: Urine Eosinophils None seen 05/12/17 04:15: White Blood Count 7.1, Red Blood Count 3.22L, Hemoglobin 8.7L, Hematocrit 27.4L , Mean Corpuscular Volume 85, Mean Corpuscular Hemoglobin 27.0, Mean Corpuscular Hemoglobin Concent 31.7L, Red Cell Distribution Width 12.5, Platelet Count 271, Mean Platelet Volume 7.5, Neutrophils (%) (Auto) 67.1, Lymphocytes (%) (Auto) 19.8L, Monocytes (%) (Auto) 7.9, Eosinophils (%) (Auto) 4.3H, Basophils (%) (Auto) 0.9, Reticulocyte Count 0.9, Prothrombin Time 9.7, Prothromb Time International Ratio 0.9, Activated Partial Thromboplast Time 31, Sodium Level 131L, Potassium Level 4.2, Chloride Level 99, Carbon Dioxide Level 23, Anion Gap 9, Blood Urea Nitrogen 41H, Creatinine 2.4H, Estimat Glomerular Filtration Rate 24.2, Glucose Level 303#H, Uric Acid 7.6H, Calcium Level 8.9, Phosphorus Level 3.4, Magnesium Level 1.9, Total Bilirubin 0.3, Gamma Glutamyl Transpeptidase 15, Aspartate Amino Transf (AST/SGOT) 9L, Alanine Aminotransferase (ALT/SGPT) 11L, Alkaline Phosphatase 120H, Total Creatine Kinase 70, Troponin I 0.002, C-Reactive Protein, Quantitative 11.5H, Pro-B-Type Natriuretic Peptide 3028H, Total Protein 5.8L, Albumin 1.7L, Globulin 4.1, Albumin/Globulin Ratio 0.4L, Triglycerides Level 192, Cholesterol Level 174, LDL Cholesterol 101H, HDL Cholesterol 55, Cholesterol/HDL Ratio 3.2L, Free Thyroxine 1.06 Height (Feet): 5 Height (Inches): 7.00 Weight (Pounds): 189 Objective General: alert, cooperative, no distress, appears stated age Head: normocephalic, without obvious abnormality, atraumatic Eyes: conjunctivae/corneas clear. PERRL, EOM's intact, +legal blindness b/l Throat: lips, mucosa, and tongue normal. MMM Neck: supple, symmetrical, trachea midline, and no JVD Lungs: clear to auscultation bilaterally Heart: regular rate and rhythm, S1, S2 normal, no murmur, click, rub or gallop Abdomen: soft, non-tender, non-distended, bowel sounds normal; no masses or organomegaly Extremities: extremities normal, atraumatic, no cyanosis, +BLE edema RLE in splint L foot 1st and 2nd toe w/ ecchymoses Pulses: 2+ and symmetric Skin: skin color, texture, turgor normal; no rashes or lesions Neurologic: 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, no focal deficits Celestine Stevens M.D. May 12, 2017 15:43
--- NOTE | 2017-05-12 15:43 | General Progress Note ---
Assessment/Plan Problem List: (1) Trimalleolar fracture of right ankle ICD Codes: S82.851A - Displaced trimalleolar fracture of right lower leg, initial encounter for closed fracture SNOMED: 225670462, 45227291 Qualifiers: Qualified Codes: S82.851A - Displaced trimalleolar fracture of right lower leg, initial encounter for closed fracture (2) Status post fall ICD Codes: Z91.81 - History of falling SNOMED: 692170694 (3) Uncontrolled diabetes mellitus ICD Codes: E11.65 - Type 2 diabetes mellitus with hyperglycemia SNOMED: 44756015, 576130640 (4) HTN (hypertension) ICD Codes: I10 - Essential (primary) hypertension SNOMED: 03589122 (5) Hyperkalemia ICD Codes: E87.5 - Hyperkalemia SNOMED: 39942147 (6) ZENY (acute kidney injury) ICD Codes: N17.9 - Acute kidney failure, unspecified SNOMED: 85780847 (7) Hyponatremia ICD Codes: E87.1 - Hypo-osmolality and hyponatremia SNOMED: 64650187 (8) Pre-syncope ICD Codes: R55 - Syncope and collapse SNOMED: 843729354 (9) Anemia ICD Codes: D64.9 - Anemia, unspecified SNOMED: 544431964 Status: stable Assessment/Plan Ortho consulted, appreciate rec's--plan for OR tomorrow, NPO at [place] Endo consulted, appreciate rec's Novolog 6U TID AC SSI q4h Pt refusing long acting insulin, stating she has h/o "heart arrhythmia" with it prior Renal consulted, appreciate rec's Hold IVFs Check urine lytes, renal U/S TTE reviewed and pt w/ normal EF Hold home lasix, lisinopril given ZENY (unknown baseline SCr) Clonidine PRN SBP>160 GI consulted, appreciate rec's PPI Pt refusing EGD s/p 2U pRBCs on 05/11/17 Trend CBC Heme/onc consulted, appreciate rec's If patient is required to have surgery, based on the patient's medical history, and other available ancillary data, the patient is a INTERMEDIATE risk for an INTERMEDIATE risk procedure. Per the most recent ACC/AHA guidelines, the patient does not need any further cardiopulmonary testing prior to the procedure and there do not appear to be any clear medical contraindications to proceeding with the proposed procedure. DVT Prophylaxis: SCD, HSQ Code Status: Full Hospital Classification Declaration: Based on this initial evaluation, and depending on the patient's clinical course, I anticipate that this patient will require hospitalization for 2-3 days for ankle fracture, uncontrolled diabetes, anemia and close respiratory/hemodynamic monitoring. Disposition: Once the patient is stable to leave the hospital, I anticipate the patient will likely be discharged to the following environment: home with HH + CG vs SNF I spent 45 minutes on this patient's case, and 25 minutes were dedicated to counseling and/or care coordination. Discussed with patient/family, nursing staff, SW/CM, endo, surgery, renal, GI regarding clinical status, treatment course, and disposition planning. Time of note may not reflect time of encounter. Subjective Date patient seen: May 12, 2017 Time patient seen: 15:43 ROS Limited/Unobtainable: No Constitutional: Reports: no symptoms HEENT: Reports: no symptoms Cardiovascular: Reports: no symptoms Respiratory: Reports: no symptoms Gastrointestinal/Abdominal: Reports: no symptoms Genitourinary: Reports: no symptoms Neurologic/Psychiatric: Reports: no symptoms Endocrine: Reports: no symptoms Hematologic/Lymphatic: Reports: no symptoms Allergies: Coded Allergies: No Known Allergies (Unverified , 05/11/17) All Systems: reviewed and negative except above Subjective No acute o/n events Hgb slightly down to 8.7. No e/o active bleeding Cr slowly downtrending Na improving TTE shows normal EF BG now in high 200s Pt doing well. Says pain controlled. Denies f/c, n/v, d/c, chest pain, SOB Objective Last 24 Hour Vital Signs Date Time Temp Pulse Resp B/P (MAP) Pulse Ox O2 Delivery O2 Flow Rate FiO2 05/12/17 12:23 77 05/12/17 12:00 97.8 79 18 151/69 99 Room Air 05/12/17 08:00 83 05/12/17 08:00 98.0 83 18 147/60 96 Room Air 05/12/17 04:00 73 05/12/17 04:00 98.2 70 20 144/64 96 Room Air 05/12/17 00:00 98.2 70 20 135/57 95 Room Air 05/12/17 00:00 70 05/11/17 20:00 68 05/11/17 20:00 98.4 70 20 153/67 95 Room Air 05/11/17 16:54 75 05/11/17 16:25 174/80 05/11/17 16:00 96.3 74 20 174/80 95 Room Air Intake and Output 05/12/17 05/13/17 19:00 07:00 Intake Total 300 ml Balance 300 ml Intake Oral 300 ml Laboratory Tests 05/11/17 16:00: Urine Random Sodium 40 05/11/17 16:30: White Blood Count 7.0, Red Blood Count 3.35L, Hemoglobin 9.2#L, Hematocrit 28.0# L, Mean Corpuscular Volume 83, Mean Corpuscular Hemoglobin 27.4, Mean Corpuscular Hemoglobin Concent 32.9, Red Cell Distribution Width 12.3, Platelet Count 258, Mean Platelet Volume 7.0, Neutrophils (%) (Auto) 74.4, Lymphocytes (% ) (Auto) 14.5L, Monocytes (%) (Auto) 7.4, Eosinophils (%) (Auto) 3.1H, Basophils (%) (Auto) 0.6, Sodium Level 128L, Potassium Level 4.0, Chloride Level 99, Carbon Dioxide Level 21, Anion Gap 8, Blood Urea Nitrogen 43H, Creatinine 2.6H, Estimat Glomerular Filtration Rate 22.2, Glucose Level 426H, Calcium Level 8.7, Phosphorus Level 3.6, Magnesium Level 1.6L, Lactate Dehydrogenase 220, Vitamin B12 Level 1124H, Methylmalonic Acid [Pending], Thyroid Stimulating Hormone (TSH) 4.914H 05/11/17 18:15: Folate 8.5 05/12/17 04:00: Urine Eosinophils None seen 05/12/17 04:15: White Blood Count 7.1, Red Blood Count 3.22L, Hemoglobin 8.7L, Hematocrit 27.4L , Mean Corpuscular Volume 85, Mean Corpuscular Hemoglobin 27.0, Mean Corpuscular Hemoglobin Concent 31.7L, Red Cell Distribution Width 12.5, Platelet Count 271, Mean Platelet Volume 7.5, Neutrophils (%) (Auto) 67.1, Lymphocytes (%) (Auto) 19.8L, Monocytes (%) (Auto) 7.9, Eosinophils (%) (Auto) 4.3H, Basophils (%) (Auto) 0.9, Reticulocyte Count 0.9, Prothrombin Time 9.7, Prothromb Time International Ratio 0.9, Activated Partial Thromboplast Time 31, Sodium Level 131L, Potassium Level 4.2, Chloride Level 99, Carbon Dioxide Level 23, Anion Gap 9, Blood Urea Nitrogen 41H, Creatinine 2.4H, Estimat Glomerular Filtration Rate 24.2, Glucose Level 303#H, Uric Acid 7.6H, Calcium Level 8.9, Phosphorus Level 3.4, Magnesium Level 1.9, Total Bilirubin 0.3, Gamma Glutamyl Transpeptidase 15, Aspartate Amino Transf (AST/SGOT) 9L, Alanine Aminotransferase (ALT/SGPT) 11L, Alkaline Phosphatase 120H, Total Creatine Kinase 70, Troponin I 0.002, C-Reactive Protein, Quantitative 11.5H, Pro-B-Type Natriuretic Peptide 3028H, Total Protein 5.8L, Albumin 1.7L, Globulin 4.1, Albumin/Globulin Ratio 0.4L, Triglycerides Level 192, Cholesterol Level 174, LDL Cholesterol 101H, HDL Cholesterol 55, Cholesterol/HDL Ratio 3.2L, Free Thyroxine 1.06 Height (Feet): 5 Height (Inches): 7.00 Weight (Pounds): 189 Objective General: alert, cooperative, no distress, appears stated age Head: normocephalic, without obvious abnormality, atraumatic Eyes: conjunctivae/corneas clear. PERRL, EOM's intact, +legal blindness b/l Throat: lips, mucosa, and tongue normal. MMM Neck: supple, symmetrical, trachea midline, and no JVD Lungs: clear to auscultation bilaterally Heart: regular rate and rhythm, S1, S2 normal, no murmur, click, rub or gallop Abdomen: soft, non-tender, non-distended, bowel sounds normal; no masses or organomegaly Extremities: extremities normal, atraumatic, no cyanosis, +BLE edema RLE in splint L foot 1st and 2nd toe w/ ecchymoses Pulses: 2+ and symmetric Skin: skin color, texture, turgor normal; no rashes or lesions Neurologic: 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, no focal deficits Celestine Stevens M.D. May 12, 2017 15:43
--- NOTE | 2017-05-12 15:43 | General Progress Note ---
Assessment/Plan Problem List: (1) Trimalleolar fracture of right ankle ICD Codes: S82.851A - Displaced trimalleolar fracture of right lower leg, initial encounter for closed fracture SNOMED: 094068081, 31294083 Qualifiers: Qualified Codes: S82.851A - Displaced trimalleolar fracture of right lower leg, initial encounter for closed fracture (2) Status post fall ICD Codes: Z91.81 - History of falling SNOMED: 396621268 (3) Uncontrolled diabetes mellitus ICD Codes: E11.65 - Type 2 diabetes mellitus with hyperglycemia SNOMED: 00479815, 755258942 (4) HTN (hypertension) ICD Codes: I10 - Essential (primary) hypertension SNOMED: 73307328 (5) Hyperkalemia ICD Codes: E87.5 - Hyperkalemia SNOMED: 43016641 (6) ZENY (acute kidney injury) ICD Codes: N17.9 - Acute kidney failure, unspecified SNOMED: 65725494 (7) Hyponatremia ICD Codes: E87.1 - Hypo-osmolality and hyponatremia SNOMED: 97417153 (8) Pre-syncope ICD Codes: R55 - Syncope and collapse SNOMED: 620722647 (9) Anemia ICD Codes: D64.9 - Anemia, unspecified SNOMED: 796812187 Status: stable Assessment/Plan Ortho consulted, appreciate rec's--plan for OR tomorrow, NPO at [place] Endo consulted, appreciate rec's Novolog 6U TID AC SSI q4h Pt refusing long acting insulin, stating she has h/o "heart arrhythmia" with it prior Renal consulted, appreciate rec's Hold IVFs Check urine lytes, renal U/S TTE reviewed and pt w/ normal EF Hold home lasix, lisinopril given ZENY (unknown baseline SCr) Clonidine PRN SBP>160 GI consulted, appreciate rec's PPI Pt refusing EGD s/p 2U pRBCs on 05/11/17 Trend CBC Heme/onc consulted, appreciate rec's If patient is required to have surgery, based on the patient's medical history, and other available ancillary data, the patient is a INTERMEDIATE risk for an INTERMEDIATE risk procedure. Per the most recent ACC/AHA guidelines, the patient does not need any further cardiopulmonary testing prior to the procedure and there do not appear to be any clear medical contraindications to proceeding with the proposed procedure. DVT Prophylaxis: SCD, HSQ Code Status: Full Hospital Classification Declaration: Based on this initial evaluation, and depending on the patient's clinical course, I anticipate that this patient will require hospitalization for 2-3 days for ankle fracture, uncontrolled diabetes, anemia and close respiratory/hemodynamic monitoring. Disposition: Once the patient is stable to leave the hospital, I anticipate the patient will likely be discharged to the following environment: home with HH + CG vs SNF I spent 45 minutes on this patient's case, and 25 minutes were dedicated to counseling and/or care coordination. Discussed with patient/family, nursing staff, SW/CM, endo, surgery, renal, GI regarding clinical status, treatment course, and disposition planning. Time of note may not reflect time of encounter. Subjective Date patient seen: May 12, 2017 Time patient seen: 15:43 ROS Limited/Unobtainable: No Constitutional: Reports: no symptoms HEENT: Reports: no symptoms Cardiovascular: Reports: no symptoms Respiratory: Reports: no symptoms Gastrointestinal/Abdominal: Reports: no symptoms Genitourinary: Reports: no symptoms Neurologic/Psychiatric: Reports: no symptoms Endocrine: Reports: no symptoms Hematologic/Lymphatic: Reports: no symptoms Allergies: Coded Allergies: No Known Allergies (Unverified , 05/11/17) All Systems: reviewed and negative except above Subjective No acute o/n events Hgb slightly down to 8.7. No e/o active bleeding Cr slowly downtrending Na improving TTE shows normal EF BG now in high 200s Pt doing well. Says pain controlled. Denies f/c, n/v, d/c, chest pain, SOB Objective Last 24 Hour Vital Signs Date Time Temp Pulse Resp B/P (MAP) Pulse Ox O2 Delivery O2 Flow Rate FiO2 05/12/17 12:23 77 05/12/17 12:00 97.8 79 18 151/69 99 Room Air 05/12/17 08:00 83 05/12/17 08:00 98.0 83 18 147/60 96 Room Air 05/12/17 04:00 73 05/12/17 04:00 98.2 70 20 144/64 96 Room Air 05/12/17 00:00 98.2 70 20 135/57 95 Room Air 05/12/17 00:00 70 05/11/17 20:00 68 05/11/17 20:00 98.4 70 20 153/67 95 Room Air 05/11/17 16:54 75 05/11/17 16:25 174/80 05/11/17 16:00 96.3 74 20 174/80 95 Room Air Intake and Output 05/12/17 05/13/17 19:00 07:00 Intake Total 300 ml Balance 300 ml Intake Oral 300 ml Laboratory Tests 05/11/17 16:00: Urine Random Sodium 40 05/11/17 16:30: White Blood Count 7.0, Red Blood Count 3.35L, Hemoglobin 9.2#L, Hematocrit 28.0# L, Mean Corpuscular Volume 83, Mean Corpuscular Hemoglobin 27.4, Mean Corpuscular Hemoglobin Concent 32.9, Red Cell Distribution Width 12.3, Platelet Count 258, Mean Platelet Volume 7.0, Neutrophils (%) (Auto) 74.4, Lymphocytes (% ) (Auto) 14.5L, Monocytes (%) (Auto) 7.4, Eosinophils (%) (Auto) 3.1H, Basophils (%) (Auto) 0.6, Sodium Level 128L, Potassium Level 4.0, Chloride Level 99, Carbon Dioxide Level 21, Anion Gap 8, Blood Urea Nitrogen 43H, Creatinine 2.6H, Estimat Glomerular Filtration Rate 22.2, Glucose Level 426H, Calcium Level 8.7, Phosphorus Level 3.6, Magnesium Level 1.6L, Lactate Dehydrogenase 220, Vitamin B12 Level 1124H, Methylmalonic Acid [Pending], Thyroid Stimulating Hormone (TSH) 4.914H 05/11/17 18:15: Folate 8.5 05/12/17 04:00: Urine Eosinophils None seen 05/12/17 04:15: White Blood Count 7.1, Red Blood Count 3.22L, Hemoglobin 8.7L, Hematocrit 27.4L , Mean Corpuscular Volume 85, Mean Corpuscular Hemoglobin 27.0, Mean Corpuscular Hemoglobin Concent 31.7L, Red Cell Distribution Width 12.5, Platelet Count 271, Mean Platelet Volume 7.5, Neutrophils (%) (Auto) 67.1, Lymphocytes (%) (Auto) 19.8L, Monocytes (%) (Auto) 7.9, Eosinophils (%) (Auto) 4.3H, Basophils (%) (Auto) 0.9, Reticulocyte Count 0.9, Prothrombin Time 9.7, Prothromb Time International Ratio 0.9, Activated Partial Thromboplast Time 31, Sodium Level 131L, Potassium Level 4.2, Chloride Level 99, Carbon Dioxide Level 23, Anion Gap 9, Blood Urea Nitrogen 41H, Creatinine 2.4H, Estimat Glomerular Filtration Rate 24.2, Glucose Level 303#H, Uric Acid 7.6H, Calcium Level 8.9, Phosphorus Level 3.4, Magnesium Level 1.9, Total Bilirubin 0.3, Gamma Glutamyl Transpeptidase 15, Aspartate Amino Transf (AST/SGOT) 9L, Alanine Aminotransferase (ALT/SGPT) 11L, Alkaline Phosphatase 120H, Total Creatine Kinase 70, Troponin I 0.002, C-Reactive Protein, Quantitative 11.5H, Pro-B-Type Natriuretic Peptide 3028H, Total Protein 5.8L, Albumin 1.7L, Globulin 4.1, Albumin/Globulin Ratio 0.4L, Triglycerides Level 192, Cholesterol Level 174, LDL Cholesterol 101H, HDL Cholesterol 55, Cholesterol/HDL Ratio 3.2L, Free Thyroxine 1.06 Height (Feet): 5 Height (Inches): 7.00 Weight (Pounds): 189 Objective General: alert, cooperative, no distress, appears stated age Head: normocephalic, without obvious abnormality, atraumatic Eyes: conjunctivae/corneas clear. PERRL, EOM's intact, +legal blindness b/l Throat: lips, mucosa, and tongue normal. MMM Neck: supple, symmetrical, trachea midline, and no JVD Lungs: clear to auscultation bilaterally Heart: regular rate and rhythm, S1, S2 normal, no murmur, click, rub or gallop Abdomen: soft, non-tender, non-distended, bowel sounds normal; no masses or organomegaly Extremities: extremities normal, atraumatic, no cyanosis, +BLE edema RLE in splint L foot 1st and 2nd toe w/ ecchymoses Pulses: 2+ and symmetric Skin: skin color, texture, turgor normal; no rashes or lesions Neurologic: 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, no focal deficits Celestine Stevens M.D. May 12, 2017 15:43
[2017-05-12 16:00] VITALS: BP 183/72
[2017-05-12] MEDS ORDERED: Tubing IV Secondary IV ONE (16:24)
--- NOTE | 2017-05-12 17:09 | General Progress Note ---
Assessment/Plan Status: stable - from renal stand Status Narrative cr 3 down 2.4 Assessment/Plan status: Renal Failure- Chronic vs Acute or superimposed acute Anemia Fx ankle DM HTN Plan; slow NS hydration Boyd urine studies 2D Echo- pending Kidney JOYCELYN negative EPO Subjective ROS Limited/Unobtainable: No Constitutional: Reports: malaise Allergies: Coded Allergies: No Known Allergies (Unverified , 05/11/17) Objective Last 24 Hour Vital Signs Date Time Temp Pulse Resp B/P (MAP) Pulse Ox O2 Delivery O2 Flow Rate FiO2 05/12/17 12:23 77 05/12/17 12:00 97.8 79 18 151/69 99 Room Air 05/12/17 08:00 83 05/12/17 08:00 98.0 83 18 147/60 96 Room Air 05/12/17 04:00 73 05/12/17 04:00 98.2 70 20 144/64 96 Room Air 05/12/17 00:00 98.2 70 20 135/57 95 Room Air 05/12/17 00:00 70 05/11/17 20:00 68 05/11/17 20:00 98.4 70 20 153/67 95 Room Air Intake and Output 05/12/17 05/13/17 19:00 07:00 Intake Total 1360 ml Output Total 1000 ml Balance 360 ml Intake Oral 660 ml IV Total 700 ml Output Urine Total 1000 ml Laboratory Tests 05/11/17 18:15: Folate 8.5 05/12/17 04:00: Urine Eosinophils None seen 05/12/17 04:15: White Blood Count 7.1, Red Blood Count 3.22L, Hemoglobin 8.7L, Hematocrit 27.4L , Mean Corpuscular Volume 85, Mean Corpuscular Hemoglobin 27.0, Mean Corpuscular Hemoglobin Concent 31.7L, Red Cell Distribution Width 12.5, Platelet Count 271, Mean Platelet Volume 7.5, Neutrophils (%) (Auto) 67.1, Lymphocytes (%) (Auto) 19.8L, Monocytes (%) (Auto) 7.9, Eosinophils (%) (Auto) 4.3H, Basophils (%) (Auto) 0.9, Reticulocyte Count 0.9, Prothrombin Time 9.7, Prothromb Time International Ratio 0.9, Activated Partial Thromboplast Time 31, Sodium Level 131L, Potassium Level 4.2, Chloride Level 99, Carbon Dioxide Level 23, Anion Gap 9, Blood Urea Nitrogen 41H, Creatinine 2.4H, Estimat Glomerular Filtration Rate 24.2, Glucose Level 303#H, Uric Acid 7.6H, Calcium Level 8.9, Phosphorus Level 3.4, Magnesium Level 1.9, Total Bilirubin 0.3, Gamma Glutamyl Transpeptidase 15, Aspartate Amino Transf (AST/SGOT) 9L, Alanine Aminotransferase (ALT/SGPT) 11L, Alkaline Phosphatase 120H, Total Creatine Kinase 70, Troponin I 0.002, C-Reactive Protein, Quantitative 11.5H, Pro-B-Type Natriuretic Peptide 3028H, Total Protein 5.8L, Albumin 1.7L, Globulin 4.1, Albumin/Globulin Ratio 0.4L, Triglycerides Level 192, Cholesterol Level 174, LDL Cholesterol 101H, HDL Cholesterol 55, Cholesterol/HDL Ratio 3.2L, Free Thyroxine 1.06 Height (Feet): 5 Height (Inches): 7.00 Weight (Pounds): 189 General Appearance: no apparent distress, other - stronger Objective no signs of CHF STANLEY MIGUEL May 12, 2017 17:09
[2017-05-12 18:12] LABS: BASOPHILS % (AUTO) 0.9 % (0.0-2.0); EOSINOPHILS % (AUTO) 3.4 % (0.0-3.0); HEMATOCRIT 28.7 % (37.0-47.0); LYMPHOCYTES % (AUTO) 13.2 % (20.0-45.0); MEAN CORPUSCULAR VOLUME 85 FL (80-99); MONOCYTES % (AUTO) 8.2 % (1.0-10.0); NEUTROPHILS % (AUTO) 74.3 % (45.0-75.0); PLATELET COUNT 275 K/UL (150-450); RED BLOOD COUNT 3.37 M/UL (4.20-5.40); RED CELL DISTRIBUTION WIDTH 12.4 % (11.6-14.8); WHITE BLOOD COUNT 9.1 K/UL (4.8-10.8)
[2017-05-12 18:20] LABS: ANION GAP 9 mmol/L (5-15); BLOOD UREA NITROGEN 35 mg/dL (7-18); CALCIUM 8.9 MG/DL (8.5-10.1); CARBON DIOXIDE 21 MMOL/L (21-32); CHLORIDE 101 MMOL/L (98-107); CREATININE 2.3 MG/DL (0.55-1.30); POTASSIUM 4.5 MMOL/L (3.5-5.1); SODIUM 131 MMOL/L (136-145)
[2017-05-12] MEDS ORDERED: Miralax 17gm pkt ORAL PRN (19:15)
[2017-05-12 20:00] VITALS: BP 130/49
[2017-05-12] MEDS ORDERED: Iron Sucrose 100 MG in NS 55 ML IV ONE (21:00)
[2017-05-13] VITALS (17 sets, daily range): BP systolic 144–180; BP diastolic 64–87
[2017-05-13] MEDS: NovoLOG Insulin Flexpen SUBQ SCH ×9 (00:36→20:51)
[2017-05-13 05:29] LABS: BASOPHILS % (AUTO) 0.6 % (0.0-2.0); EOSINOPHILS % (AUTO) 4.3 % (0.0-3.0); HEMATOCRIT 26.7 % (37.0-47.0); HEMOGLOBIN 8.7 G/DL (12.0-16.0); LYMPHOCYTES % (AUTO) 20.5 % (20.0-45.0); MEAN CORPUSCULAR VOLUME 85 FL (80-99); MONOCYTES % (AUTO) 8.4 % (1.0-10.0); NEUTROPHILS % (AUTO) 66.2 % (45.0-75.0); PLATELET COUNT 287 K/UL (150-450); RED BLOOD COUNT 3.15 M/UL (4.20-5.40); RED CELL DISTRIBUTION WIDTH 12.5 % (11.6-14.8); WHITE BLOOD COUNT 7.4 K/UL (4.8-10.8)
[2017-05-13 05:58] LABS: ALANINE AMINOTRANSFERASE 9 U/L (12-78); ALBUMIN 1.5 G/DL (3.4-5.0); ALBUMIN/GLOBULIN RATIO 0.4 (1.0-2.7); ALKALINE PHOSPHATASE 112 U/L (46-116); ANION GAP 9 mmol/L (5-15); ASPARTATE AMINO TRANSFERASE 9 U/L (15-37); BILIRUBIN,TOTAL 0.2 MG/DL (0.2-1.0); BLOOD UREA NITROGEN 36 mg/dL (7-18); CALCIUM 8.9 MG/DL (8.5-10.1); CARBON DIOXIDE 22 MMOL/L (21-32); CHLORIDE 102 MMOL/L (98-107); CREATININE 2.4 MG/DL (0.55-1.30); PHOSPHORUS 3.1 MG/DL (2.5-4.9); POTASSIUM 4.3 MMOL/L (3.5-5.1); SODIUM 133 MMOL/L (136-145)
[2017-05-13] MEDS ORDERED: NeoSporin Gu Irrig 1ml Amp IRRIG ONE (06:38)
[2017-05-13] MEDS ORDERED: Bupivacaine w/Epi 0.5% 30ml Vial INJ ONE (06:38)
[2017-05-13] MEDS ORDERED: Bacitracin 50000 Units Vial ONE (06:38)
[2017-05-13] MEDS ORDERED: Lidocaine 1% MPF 10mg/ml 5ml ONE (07:00)
[2017-05-13] MEDS ORDERED: Etomidate 40mg/20ml Inj IV ONE (07:00)
[2017-05-13] MEDS ORDERED: Sterile Water Irrig 1000ml IRRIG ONE (07:00)
[2017-05-13] MEDS ORDERED: Propofol 200mg/20ml IV ONE (07:00)
[2017-05-13] MEDS ORDERED: Midazolam 2mg/2ml Inj ONE (07:00)
[2017-05-13] MEDS ORDERED: Sodium Chloride 10ml vial INJ ONE (07:00)
[2017-05-13] MEDS ORDERED: fentaNYL 100 mcg/2 mL IV ONE (07:00)
[2017-05-13] MEDS ORDERED: NS Irrig 1000ml ONE (07:00)
--- NOTE | 2017-05-13 07:01 | Pre-Procedure Note/Attestation ---
Pre-Procedure Note/Attestation Complete Prior to Procedure Planned Procedure: right Procedure Narrative: Rt ankle ORIF Indications for Procedure Pre-Operative Diagnosis: Rt ankle trimalleolar fracture Attestation I attest that I discussed the nature of the procedure; its benefits; risks and complications; and alternatives (and the risks and benefits of such alternatives ), prior to the procedure, with the patient (or the patient's legal inbound sales representative). I attest that, if there was a reasonable possibility of needing a blood transfusion, the patient (or the patient's legal inbound sales representative) was given the [facility] standardized written summary, pursuant to the [place] Blood Safety Act ([place] Health and Safety Code # 1645, as amended). I attest that I re-evaluated the patient just prior to the surgery and that there has been no change in the patient's H&P, except as documented below: none RAYMOND HAMMER May 13, 2017 07:01
--- NOTE | 2017-05-13 07:01 | Pre-Procedure Note/Attestation ---
Pre-Procedure Note/Attestation Complete Prior to Procedure Planned Procedure: right Procedure Narrative: Rt ankle ORIF Indications for Procedure Pre-Operative Diagnosis: Rt ankle trimalleolar fracture Attestation I attest that I discussed the nature of the procedure; its benefits; risks and complications; and alternatives (and the risks and benefits of such alternatives ), prior to the procedure, with the patient (or the patient's legal sales representative [employer]). I attest that, if there was a reasonable possibility of needing a blood transfusion, the patient (or the patient's legal sales representative [employer]) was given the [facility] standardized written summary, pursuant to the [place] Blood Safety Act ([place] Health and Safety Code # 1645, as amended). I attest that I re-evaluated the patient just prior to the surgery and that there has been no change in the patient's H&P, except as documented below: none RAYMOND HAMMER May 13, 2017 07:01
--- NOTE | 2017-05-13 07:01 | Pre-Procedure Note/Attestation ---
Pre-Procedure Note/Attestation Complete Prior to Procedure Planned Procedure: right Procedure Narrative: Rt ankle ORIF Indications for Procedure Pre-Operative Diagnosis: Rt ankle trimalleolar fracture Attestation I attest that I discussed the nature of the procedure; its benefits; risks and complications; and alternatives (and the risks and benefits of such alternatives ), prior to the procedure, with the patient (or the patient's legal quality audit representative). I attest that, if there was a reasonable possibility of needing a blood transfusion, the patient (or the patient's legal quality audit representative) was given the [facility] standardized written summary, pursuant to the [place] Blood Safety Act ([place] Health and Safety Code # 1645, as amended). I attest that I re-evaluated the patient just prior to the surgery and that there has been no change in the patient's H&P, except as documented below: none RAYMOND HAMMER May 13, 2017 07:01
[2017-05-13] MEDS ORDERED: Hydromorphone 0.5mg/0.5ml inj SUBQ PRN ×2 (07:15→19:00)
[2017-05-13] MEDS ORDERED: HYDROmorphone 1mg/ml Carpuject SUBQ PRN (07:15)
--- NOTE | 2017-05-13 07:52 | Immediate Post-Op Evaluation ---
Immediate Post-Op Evalulation Immediate Post-Op Evalulation Procedure: Right ankle ORIF Date of Evaluation: May 13, 2017 Time of Evaluation: 09:01 IV Fluids: 750 Blood Products: 1 unit PRBC Estimated Blood Loss: 125 Urinary Output: 100 Blood Pressure Systolic: 175 Blood Pressure Diastolic: 87 Pulse Rate: 80 Respiratory Rate: 16 O2 Sat by Pulse Oximetry: 100 Temperature (Fahrenheit): 97 Pain Score (1-10): 0 Nausea: No Vomiting: No Complications 0 Patient Status: awake, reacts, patent, none Hydration Status: adequate Drug: Ancef 2g Given Within 1 Hr of Incision: Yes Time Given: 07:30 HUGH BURNS M.D. May 13, 2017 07:52
[2017-05-13] MEDS ORDERED: Metoclopramide 10mg/2ml Inj IVP PRN (08:00)
[2017-05-13] MEDS ORDERED: fentaNYL 100 mcg/2 mL IV PRN (08:00)
[2017-05-13] MEDS ORDERED: DiphenhydrAMINE 50mg/ml Inj IVP PRN (08:00)
[2017-05-13] MEDS ORDERED: LORazepam Inj 2mg/ml 1ml IV PRN (08:00)
[2017-05-13] MEDS ORDERED: Hydromorphone 0.5mg/0.5ml inj IVP PRN (08:00)
--- NOTE | 2017-05-13 08:53 | Brief Operative Note ---
Immediate Post Operative Note Operative Note Chief Complaint: rt ankle injury Pre-op Diagnosis: rt ankle fracture Procedure: rt ankle orif Post-op Diagnosis: same as pre-op Findings: consistent w/pre-op dx studies Surgeon: md faheem Human Resources Talent Manager: yrn boswell Anesthesiologist: md sofi Anesthesia: general Specimen: none Complications: none Condition: stable Fluids: ns Estimated Blood Loss: minimal Drains: none Implant(s) used?: Yes - FADUMO Osorio May 13, 2017 08:53
--- NOTE | 2017-05-13 08:53 | Brief Operative Note ---
Immediate Post Operative Note Operative Note Chief Complaint: rt ankle injury Pre-op Diagnosis: rt ankle fracture Procedure: rt ankle orif Post-op Diagnosis: same as pre-op Findings: consistent w/pre-op dx studies Surgeon: md faheem Visual Educator: yrn boswell Anesthesiologist: md sofi Anesthesia: general Specimen: none Complications: none Condition: stable Fluids: ns Estimated Blood Loss: minimal Drains: none Implant(s) used?: Yes - FADUMO Osorio May 13, 2017 08:53
[2017-05-13] MEDS: Docusate 100mg cap ORAL SCH ×3 (09:00→17:40)
[2017-05-13] MEDS: oxyCONTIN 20mg tab ORAL SCH ×2 (09:00→20:49)
--- NOTE | 2017-05-13 10:57 | GI Progress Note ---
Assessment/Plan Problems: (1) Uncontrolled diabetes mellitus ICD Codes: E11.65 - Type 2 diabetes mellitus with hyperglycemia SNOMED: 10123921, 346887221 (2) Alkaline phosphatase elevation ICD Codes: R74.8 - Abnormal levels of other serum enzymes SNOMED: 347363551 (3) Hypoalbuminemia ICD Codes: E88.09 - Other disorders of plasma-protein metabolism, not elsewhere classified SNOMED: 349155133 (4) Anemia ICD Codes: D64.9 - Anemia, unspecified SNOMED: 802995581 Status: stable, unchanged Status Narrative Discussed with Dr. Wilkins. Assessment/Plan s/p colonoscopy x 2 years at [facility] with unremarkable results per patient agreed to have EGD, schedule for Tuesday. - NPO @ [place] night prior procedure. patient scheduled for OR for Left ankle fx today anemia work up >> iron deficient, venofer fu OB stool r/o GI bleed monitor H&H, prn transfusions bowel regime >> colace + miralax ppi DM mgmt fu labs The patient was seen and examined at bedside and all new and available data was reviewed in the patients chart. I agree with the above findings, impression and plan. (Patient seen earlier today. Signature stamp does not reflect patient encounter time.). - Sherif Wilkins MD Subjective Subjective constipated Objective Last 24 Hour Vital Signs Date Time Temp Pulse Resp B/P (MAP) Pulse Ox O2 Delivery O2 Flow Rate FiO2 05/13/17 10:45 98.0 80 18 153/69 98 Nasal Cannula 3.0 05/13/17 10:15 98.1 76 15 145/66 100 Nasal Cannula 3.0 05/13/17 10:05 77 13 144/64 100 Nasal Cannula 3.0 05/13/17 09:50 98.1 05/13/17 09:50 74 15 150/68 100 Nasal Cannula 3.0 05/13/17 09:35 75 12 163/70 100 Nasal Cannula 3.0 05/13/17 09:20 83 18 165/74 100 Nasal Cannula 3.0 05/13/17 09:10 75 21 169/76 100 Nasal Cannula 3.0 05/13/17 09:05 85 13 172/77 100 Simple Mask 6.0 05/13/17 09:00 85 14 175/77 100 Simple Mask 6.0 05/13/17 08:59 80 16 100 05/13/17 08:56 98.0 79 15 175/87 100 Simple Mask 6.0 05/13/17 04:00 98.6 72 20 149/66 99 Room Air 05/13/17 04:00 70 05/13/17 00:00 99.3 77 18 157/69 97 Room Air 05/13/17 00:00 75 05/12/17 20:00 98.8 71 18 130/49 96 Room Air 05/12/17 20:00 70 05/12/17 17:33 183/72 05/12/17 16:00 99.8 78 18 183/72 96 Room Air 05/12/17 16:00 77 05/12/17 12:23 77 05/12/17 12:00 97.8 79 18 151/69 99 Room Air Intake and Output 05/13/17 05/14/17 19:00 07:00 Intake Total 750 ml Output Total 225 ml Balance 525 ml IV Total 750 ml Output Urine Total 100 ml Estimated Blood Loss 125 ml Laboratory Tests Test 05/12/17 17:30 05/13/17 04:00 05/13/17 04:05 White Blood Count 9.1 K/UL (4.8-10.8) 7.4 K/UL (4.8-10.8) Red Blood Count 3.37 M/UL (4.20-5.40) L 3.15 M/UL (4.20-5.40) L Hemoglobin 9.0 G/DL (12.0-16.0) L 8.7 G/DL (12.0-16.0) L Hematocrit 28.7 % (37.0-47.0) L 26.7 % (37.0-47.0) L Mean Corpuscular Volume 85 FL (80-99) 85 FL (80-99) Mean Corpuscular Hemoglobin 26.7 PG (27.0-31.0) L 27.6 PG (27.0-31.0) Mean Corpuscular Hemoglobin Concent 31.4 G/DL (32.0-36.0) L 32.7 G/DL (32.0-36.0) Red Cell Distribution Width 12.4 % (11.6-14.8) 12.5 % (11.6-14.8) Platelet Count 275 K/UL (150-450) 287 K/UL (150-450) Mean Platelet Volume 7.2 FL (6.5-10.1) 7.7 FL (6.5-10.1) Neutrophils (%) (Auto) 74.3 % (45.0-75.0) 66.2 % (45.0-75.0) Lymphocytes (%) (Auto) 13.2 % (20.0-45.0) L 20.5 % (20.0-45.0) Monocytes (%) (Auto) 8.2 % (1.0-10.0) 8.4 % (1.0-10.0) Eosinophils (%) (Auto) 3.4 % (0.0-3.0) H 4.3 % (0.0-3.0) H Basophils (%) (Auto) 0.9 % (0.0-2.0) 0.6 % (0.0-2.0) Sodium Level 131 MMOL/L (136-145) L 133 MMOL/L (136-145) L Potassium Level 4.5 MMOL/L (3.5-5.1) 4.3 MMOL/L (3.5-5.1) Chloride Level 101 MMOL/L (98-107) 102 MMOL/L (98-107) Carbon Dioxide Level 21 MMOL/L (21-32) 22 MMOL/L (21-32) Anion Gap 9 mmol/L (5-15) 9 mmol/L (5-15) Blood Urea Nitrogen 35 mg/dL (7-18) H 36 mg/dL (7-18) H Creatinine 2.3 MG/DL (0.55-1.30) H 2.4 MG/DL (0.55-1.30) H Estimat Glomerular Filtration Rate 25.5 mL/min (>60) 24.2 mL/min (>60) Glucose Level 176 MG/DL (74-106) #H 149 MG/DL (74-106) H Calcium Level 8.9 MG/DL (8.5-10.1) 8.9 MG/DL (8.5-10.1) Urine Eosinophils None seen Uric Acid 7.6 MG/DL (2.6-7.2) H Phosphorus Level 3.1 MG/DL (2.5-4.9) Magnesium Level 1.9 MG/DL (1.8-2.4) Total Bilirubin 0.2 MG/DL (0.2-1.0) Aspartate Amino Transf (AST/SGOT) 9 U/L (15-37) L Alanine Aminotransferase (ALT/SGPT) 9 U/L (12-78) L Alkaline Phosphatase 112 U/L (46-116) C-Reactive Protein, Quantitative 12.7 mg/dL (0.00-0.90) H Pro-B-Type Natriuretic Peptide 3557 pg/mL (0-125) H Total Protein 5.7 G/DL (6.4-8.2) L Albumin 1.5 G/DL (3.4-5.0) L Globulin 4.2 g/dL Albumin/Globulin Ratio 0.4 (1.0-2.7) L Height (Feet): 5 Height (Inches): 5.00 Weight (Pounds): 189 General Appearance: WD/WN, no apparent distress, alert Cardiovascular: normal rate Respiratory/Chest: normal breath sounds, no respiratory distress Abdominal Exam: normal bowel sounds, non tender, soft Tessa Spears N.P. May 13, 2017 10:57 CHUCHO WILKINS May 16, 2017 08:41
--- NOTE | 2017-05-13 10:57 | GI Progress Note ---
Assessment/Plan Problems: (1) Uncontrolled diabetes mellitus ICD Codes: E11.65 - Type 2 diabetes mellitus with hyperglycemia SNOMED: 44152589, 466609913 (2) Alkaline phosphatase elevation ICD Codes: R74.8 - Abnormal levels of other serum enzymes SNOMED: 633091829 (3) Hypoalbuminemia ICD Codes: E88.09 - Other disorders of plasma-protein metabolism, not elsewhere classified SNOMED: 291982080 (4) Anemia ICD Codes: D64.9 - Anemia, unspecified SNOMED: 493516635 Status: stable, unchanged Status Narrative Discussed with Dr. Wilkins. Assessment/Plan s/p colonoscopy x 2 years at [facility] with unremarkable results per patient agreed to have EGD, schedule for Tuesday. - NPO @ [place] night prior procedure. patient scheduled for OR for Left ankle fx today anemia work up >> iron deficient, venofer fu OB stool r/o GI bleed monitor H&H, prn transfusions bowel regime >> colace + miralax ppi DM mgmt fu labs The patient was seen and examined at bedside and all new and available data was reviewed in the patients chart. I agree with the above findings, impression and plan. (Patient seen earlier today. Signature stamp does not reflect patient encounter time.). - Sherif Wilkins MD Subjective Subjective constipated Objective Last 24 Hour Vital Signs Date Time Temp Pulse Resp B/P (MAP) Pulse Ox O2 Delivery O2 Flow Rate FiO2 05/13/17 10:45 98.0 80 18 153/69 98 Nasal Cannula 3.0 05/13/17 10:15 98.1 76 15 145/66 100 Nasal Cannula 3.0 05/13/17 10:05 77 13 144/64 100 Nasal Cannula 3.0 05/13/17 09:50 98.1 05/13/17 09:50 74 15 150/68 100 Nasal Cannula 3.0 05/13/17 09:35 75 12 163/70 100 Nasal Cannula 3.0 05/13/17 09:20 83 18 165/74 100 Nasal Cannula 3.0 05/13/17 09:10 75 21 169/76 100 Nasal Cannula 3.0 05/13/17 09:05 85 13 172/77 100 Simple Mask 6.0 05/13/17 09:00 85 14 175/77 100 Simple Mask 6.0 05/13/17 08:59 80 16 100 05/13/17 08:56 98.0 79 15 175/87 100 Simple Mask 6.0 05/13/17 04:00 98.6 72 20 149/66 99 Room Air 05/13/17 04:00 70 05/13/17 00:00 99.3 77 18 157/69 97 Room Air 05/13/17 00:00 75 05/12/17 20:00 98.8 71 18 130/49 96 Room Air 05/12/17 20:00 70 05/12/17 17:33 183/72 05/12/17 16:00 99.8 78 18 183/72 96 Room Air 05/12/17 16:00 77 05/12/17 12:23 77 05/12/17 12:00 97.8 79 18 151/69 99 Room Air Intake and Output 05/13/17 05/14/17 19:00 07:00 Intake Total 750 ml Output Total 225 ml Balance 525 ml IV Total 750 ml Output Urine Total 100 ml Estimated Blood Loss 125 ml Laboratory Tests Test 05/12/17 17:30 05/13/17 04:00 05/13/17 04:05 White Blood Count 9.1 K/UL (4.8-10.8) 7.4 K/UL (4.8-10.8) Red Blood Count 3.37 M/UL (4.20-5.40) L 3.15 M/UL (4.20-5.40) L Hemoglobin 9.0 G/DL (12.0-16.0) L 8.7 G/DL (12.0-16.0) L Hematocrit 28.7 % (37.0-47.0) L 26.7 % (37.0-47.0) L Mean Corpuscular Volume 85 FL (80-99) 85 FL (80-99) Mean Corpuscular Hemoglobin 26.7 PG (27.0-31.0) L 27.6 PG (27.0-31.0) Mean Corpuscular Hemoglobin Concent 31.4 G/DL (32.0-36.0) L 32.7 G/DL (32.0-36.0) Red Cell Distribution Width 12.4 % (11.6-14.8) 12.5 % (11.6-14.8) Platelet Count 275 K/UL (150-450) 287 K/UL (150-450) Mean Platelet Volume 7.2 FL (6.5-10.1) 7.7 FL (6.5-10.1) Neutrophils (%) (Auto) 74.3 % (45.0-75.0) 66.2 % (45.0-75.0) Lymphocytes (%) (Auto) 13.2 % (20.0-45.0) L 20.5 % (20.0-45.0) Monocytes (%) (Auto) 8.2 % (1.0-10.0) 8.4 % (1.0-10.0) Eosinophils (%) (Auto) 3.4 % (0.0-3.0) H 4.3 % (0.0-3.0) H Basophils (%) (Auto) 0.9 % (0.0-2.0) 0.6 % (0.0-2.0) Sodium Level 131 MMOL/L (136-145) L 133 MMOL/L (136-145) L Potassium Level 4.5 MMOL/L (3.5-5.1) 4.3 MMOL/L (3.5-5.1) Chloride Level 101 MMOL/L (98-107) 102 MMOL/L (98-107) Carbon Dioxide Level 21 MMOL/L (21-32) 22 MMOL/L (21-32) Anion Gap 9 mmol/L (5-15) 9 mmol/L (5-15) Blood Urea Nitrogen 35 mg/dL (7-18) H 36 mg/dL (7-18) H Creatinine 2.3 MG/DL (0.55-1.30) H 2.4 MG/DL (0.55-1.30) H Estimat Glomerular Filtration Rate 25.5 mL/min (>60) 24.2 mL/min (>60) Glucose Level 176 MG/DL (74-106) #H 149 MG/DL (74-106) H Calcium Level 8.9 MG/DL (8.5-10.1) 8.9 MG/DL (8.5-10.1) Urine Eosinophils None seen Uric Acid 7.6 MG/DL (2.6-7.2) H Phosphorus Level 3.1 MG/DL (2.5-4.9) Magnesium Level 1.9 MG/DL (1.8-2.4) Total Bilirubin 0.2 MG/DL (0.2-1.0) Aspartate Amino Transf (AST/SGOT) 9 U/L (15-37) L Alanine Aminotransferase (ALT/SGPT) 9 U/L (12-78) L Alkaline Phosphatase 112 U/L (46-116) C-Reactive Protein, Quantitative 12.7 mg/dL (0.00-0.90) H Pro-B-Type Natriuretic Peptide 3557 pg/mL (0-125) H Total Protein 5.7 G/DL (6.4-8.2) L Albumin 1.5 G/DL (3.4-5.0) L Globulin 4.2 g/dL Albumin/Globulin Ratio 0.4 (1.0-2.7) L Height (Feet): 5 Height (Inches): 5.00 Weight (Pounds): 189 General Appearance: WD/WN, no apparent distress, alert Cardiovascular: normal rate Respiratory/Chest: normal breath sounds, no respiratory distress Abdominal Exam: normal bowel sounds, non tender, soft Tessa Spears N.P. May 13, 2017 10:57 CHUCHO WILKINS May 16, 2017 08:41
--- NOTE | 2017-05-13 10:57 | GI Progress Note ---
Assessment/Plan Problems: (1) Uncontrolled diabetes mellitus ICD Codes: E11.65 - Type 2 diabetes mellitus with hyperglycemia SNOMED: 88003471, 129199971 (2) Alkaline phosphatase elevation ICD Codes: R74.8 - Abnormal levels of other serum enzymes SNOMED: 351904019 (3) Hypoalbuminemia ICD Codes: E88.09 - Other disorders of plasma-protein metabolism, not elsewhere classified SNOMED: 208827548 (4) Anemia ICD Codes: D64.9 - Anemia, unspecified SNOMED: 674071919 Status: stable, unchanged Status Narrative Discussed with Dr. Wilkins. Assessment/Plan s/p colonoscopy x 2 years at [facility] with unremarkable results per patient agreed to have EGD, schedule for Tuesday. - NPO @ [place] night prior procedure. patient scheduled for OR for Left ankle fx today anemia work up >> iron deficient, venofer fu OB stool r/o GI bleed monitor H&H, prn transfusions bowel regime >> colace + miralax ppi DM mgmt fu labs The patient was seen and examined at bedside and all new and available data was reviewed in the patients chart. I agree with the above findings, impression and plan. (Patient seen earlier today. Signature stamp does not reflect patient encounter time.). - Sherif Wilkins MD Subjective Subjective constipated Objective Last 24 Hour Vital Signs Date Time Temp Pulse Resp B/P (MAP) Pulse Ox O2 Delivery O2 Flow Rate FiO2 05/13/17 10:45 98.0 80 18 153/69 98 Nasal Cannula 3.0 05/13/17 10:15 98.1 76 15 145/66 100 Nasal Cannula 3.0 05/13/17 10:05 77 13 144/64 100 Nasal Cannula 3.0 05/13/17 09:50 98.1 05/13/17 09:50 74 15 150/68 100 Nasal Cannula 3.0 05/13/17 09:35 75 12 163/70 100 Nasal Cannula 3.0 05/13/17 09:20 83 18 165/74 100 Nasal Cannula 3.0 05/13/17 09:10 75 21 169/76 100 Nasal Cannula 3.0 05/13/17 09:05 85 13 172/77 100 Simple Mask 6.0 05/13/17 09:00 85 14 175/77 100 Simple Mask 6.0 05/13/17 08:59 80 16 100 05/13/17 08:56 98.0 79 15 175/87 100 Simple Mask 6.0 05/13/17 04:00 98.6 72 20 149/66 99 Room Air 05/13/17 04:00 70 05/13/17 00:00 99.3 77 18 157/69 97 Room Air 05/13/17 00:00 75 05/12/17 20:00 98.8 71 18 130/49 96 Room Air 05/12/17 20:00 70 05/12/17 17:33 183/72 05/12/17 16:00 99.8 78 18 183/72 96 Room Air 05/12/17 16:00 77 05/12/17 12:23 77 05/12/17 12:00 97.8 79 18 151/69 99 Room Air Intake and Output 05/13/17 05/14/17 19:00 07:00 Intake Total 750 ml Output Total 225 ml Balance 525 ml IV Total 750 ml Output Urine Total 100 ml Estimated Blood Loss 125 ml Laboratory Tests Test 05/12/17 17:30 05/13/17 04:00 05/13/17 04:05 White Blood Count 9.1 K/UL (4.8-10.8) 7.4 K/UL (4.8-10.8) Red Blood Count 3.37 M/UL (4.20-5.40) L 3.15 M/UL (4.20-5.40) L Hemoglobin 9.0 G/DL (12.0-16.0) L 8.7 G/DL (12.0-16.0) L Hematocrit 28.7 % (37.0-47.0) L 26.7 % (37.0-47.0) L Mean Corpuscular Volume 85 FL (80-99) 85 FL (80-99) Mean Corpuscular Hemoglobin 26.7 PG (27.0-31.0) L 27.6 PG (27.0-31.0) Mean Corpuscular Hemoglobin Concent 31.4 G/DL (32.0-36.0) L 32.7 G/DL (32.0-36.0) Red Cell Distribution Width 12.4 % (11.6-14.8) 12.5 % (11.6-14.8) Platelet Count 275 K/UL (150-450) 287 K/UL (150-450) Mean Platelet Volume 7.2 FL (6.5-10.1) 7.7 FL (6.5-10.1) Neutrophils (%) (Auto) 74.3 % (45.0-75.0) 66.2 % (45.0-75.0) Lymphocytes (%) (Auto) 13.2 % (20.0-45.0) L 20.5 % (20.0-45.0) Monocytes (%) (Auto) 8.2 % (1.0-10.0) 8.4 % (1.0-10.0) Eosinophils (%) (Auto) 3.4 % (0.0-3.0) H 4.3 % (0.0-3.0) H Basophils (%) (Auto) 0.9 % (0.0-2.0) 0.6 % (0.0-2.0) Sodium Level 131 MMOL/L (136-145) L 133 MMOL/L (136-145) L Potassium Level 4.5 MMOL/L (3.5-5.1) 4.3 MMOL/L (3.5-5.1) Chloride Level 101 MMOL/L (98-107) 102 MMOL/L (98-107) Carbon Dioxide Level 21 MMOL/L (21-32) 22 MMOL/L (21-32) Anion Gap 9 mmol/L (5-15) 9 mmol/L (5-15) Blood Urea Nitrogen 35 mg/dL (7-18) H 36 mg/dL (7-18) H Creatinine 2.3 MG/DL (0.55-1.30) H 2.4 MG/DL (0.55-1.30) H Estimat Glomerular Filtration Rate 25.5 mL/min (>60) 24.2 mL/min (>60) Glucose Level 176 MG/DL (74-106) #H 149 MG/DL (74-106) H Calcium Level 8.9 MG/DL (8.5-10.1) 8.9 MG/DL (8.5-10.1) Urine Eosinophils None seen Uric Acid 7.6 MG/DL (2.6-7.2) H Phosphorus Level 3.1 MG/DL (2.5-4.9) Magnesium Level 1.9 MG/DL (1.8-2.4) Total Bilirubin 0.2 MG/DL (0.2-1.0) Aspartate Amino Transf (AST/SGOT) 9 U/L (15-37) L Alanine Aminotransferase (ALT/SGPT) 9 U/L (12-78) L Alkaline Phosphatase 112 U/L (46-116) C-Reactive Protein, Quantitative 12.7 mg/dL (0.00-0.90) H Pro-B-Type Natriuretic Peptide 3557 pg/mL (0-125) H Total Protein 5.7 G/DL (6.4-8.2) L Albumin 1.5 G/DL (3.4-5.0) L Globulin 4.2 g/dL Albumin/Globulin Ratio 0.4 (1.0-2.7) L Height (Feet): 5 Height (Inches): 5.00 Weight (Pounds): 189 General Appearance: WD/WN, no apparent distress, alert Cardiovascular: normal rate Respiratory/Chest: normal breath sounds, no respiratory distress Abdominal Exam: normal bowel sounds, non tender, soft Tessa Spears N.P. May 13, 2017 10:57 CHUCHO WILKINS May 16, 2017 08:41
[2017-05-13] MEDS ORDERED: D5 1/2NS 1,000 ML IV SCH (12:15)
--- NOTE | 2017-05-13 12:53 | Diagnostic Imaging Report ---
Indication: Fracture, intraoperative Technique: Intraoperative images Comparison: 05/11/2017 Findings: Intraoperative images document surgical repair of previously demonstrated tibial and fibular fracture/dislocation. Impression: Intraoperative imaging, as described
--- NOTE | 2017-05-13 12:55 | Diagnostic Imaging Report ---
Indication: POST-OP status post ORIF of right ankle fracture Technique: 2 views of the right ankle Comparison: 05/11/2017 Findings: Interim surgical repair of previously demonstrated distal tibial and fibular fracture/dislocation. Good anatomic alignment of the fragments and hardware. Overlying skin naina bilaterally. Impression: Postoperative right ankle. No unusual features
[2017-05-13] MEDS ORDERED: Norco 5mg/325mg tab ORAL PRN (15:00)
[2017-05-13] MEDS: ceFAZolin sod 1 GM in D5W 55 ML IV SCH ×2 (15:01→23:07)
--- NOTE | 2017-05-13 15:16 | Diagnostic Imaging Report ---
Indication: PAIN Technique: 3 views left foot Comparison: none Findings: Bones are osteoporotic. No acute fractures. No dislocations. The joint spaces are preserved. There are small plantar and calcaneal spurs. The bones are osteoporotic. Impression: No acute bony trauma Osteoporotic change Mild degenerative changes, as described
--- NOTE | 2017-05-13 15:43 | General Progress Note ---
Assessment/Plan Status: stable Assessment/Plan status: Renal Failure- Chronic vs Acute or superimposed acute Anemia Fx ankle DM HTN Plan; Post Op day one slow NS hydration Boyd urine studies 2D Echo- pending Kidney JOYCELYN negative EPO Subjective ROS Limited/Unobtainable: No Constitutional: Reports: malaise, weakness Allergies: Coded Allergies: No Known Allergies (Unverified , 05/11/17) Objective Last 24 Hour Vital Signs Date Time Temp Pulse Resp B/P (MAP) Pulse Ox O2 Delivery O2 Flow Rate FiO2 05/13/17 13:01 165/79 05/13/17 12:57 18 165/79 99 Nasal Cannula 3.0 05/13/17 12:45 78 18 180/75 98 Nasal Cannula 3.0 05/13/17 12:00 98.5 80 19 98 Nasal Cannula 3.0 05/13/17 11:59 86 05/13/17 11:00 97.8 85 16 161/76 98 Nasal Cannula 3.0 05/13/17 10:45 98.0 80 18 153/69 98 Nasal Cannula 3.0 05/13/17 10:15 98.1 76 15 145/66 100 Nasal Cannula 3.0 05/13/17 10:05 77 13 144/64 100 Nasal Cannula 3.0 05/13/17 09:50 98.1 05/13/17 09:50 74 15 150/68 100 Nasal Cannula 3.0 05/13/17 09:35 75 12 163/70 100 Nasal Cannula 3.0 05/13/17 09:20 83 18 165/74 100 Nasal Cannula 3.0 05/13/17 09:10 75 21 169/76 100 Nasal Cannula 3.0 05/13/17 09:05 85 13 172/77 100 Simple Mask 6.0 05/13/17 09:00 85 14 175/77 100 Simple Mask 6.0 05/13/17 08:59 80 16 100 05/13/17 08:56 98.0 79 15 175/87 100 Simple Mask 6.0 05/13/17 04:00 98.6 72 20 149/66 99 Room Air 05/13/17 04:00 70 05/13/17 00:00 99.3 77 18 157/69 97 Room Air 05/13/17 00:00 75 05/12/17 20:00 98.8 71 18 130/49 96 Room Air 05/12/17 20:00 70 05/12/17 17:33 183/72 05/12/17 16:00 99.8 78 18 183/72 96 Room Air 05/12/17 16:00 77 Intake and Output 05/13/17 05/14/17 19:00 07:00 Intake Total 750 ml Output Total 225 ml Balance 525 ml IV Total 750 ml Output Urine Total 100 ml Estimated Blood Loss 125 ml Laboratory Tests 05/12/17 17:30: White Blood Count 9.1, Red Blood Count 3.37L, Hemoglobin 9.0L, Hematocrit 28.7L , Mean Corpuscular Volume 85, Mean Corpuscular Hemoglobin 26.7L, Mean Corpuscular Hemoglobin Concent 31.4L, Red Cell Distribution Width 12.4, Platelet Count 275, Mean Platelet Volume 7.2, Neutrophils (%) (Auto) 74.3, Lymphocytes (%) (Auto) 13.2L, Monocytes (%) (Auto) 8.2, Eosinophils (%) (Auto) 3.4H, Basophils (%) (Auto) 0.9, Sodium Level 131L, Potassium Level 4.5, Chloride Level 101, Carbon Dioxide Level 21, Anion Gap 9, Blood Urea Nitrogen 35H, Creatinine 2.3H, Estimat Glomerular Filtration Rate 25.5, Glucose Level 176 #H, Calcium Level 8.9 05/13/17 04:00: Urine Eosinophils None seen 05/13/17 04:05: White Blood Count 7.4, Red Blood Count 3.15L, Hemoglobin 8.7L, Hematocrit 26.7L , Mean Corpuscular Volume 85, Mean Corpuscular Hemoglobin 27.6, Mean Corpuscular Hemoglobin Concent 32.7, Red Cell Distribution Width 12.5, Platelet Count 287, Mean Platelet Volume 7.7, Neutrophils (%) (Auto) 66.2, Lymphocytes (% ) (Auto) 20.5, Monocytes (%) (Auto) 8.4, Eosinophils (%) (Auto) 4.3H, Basophils (%) (Auto) 0.6, Sodium Level 133L, Potassium Level 4.3, Chloride Level 102, Carbon Dioxide Level 22, Anion Gap 9, Blood Urea Nitrogen 36H, Creatinine 2.4H, Estimat Glomerular Filtration Rate 24.2, Glucose Level 149H, Calcium Level 8.9, Uric Acid 7.6H, Phosphorus Level 3.1, Magnesium Level 1.9, Total Bilirubin 0.2, Aspartate Amino Transf (AST/SGOT) 9L, Alanine Aminotransferase (ALT/SGPT) 9L, Alkaline Phosphatase 112, C-Reactive Protein, Quantitative 12.7H, Pro-B-Type Natriuretic Peptide 3557H, Total Protein 5.7L, Albumin 1.5L, Globulin 4.2, Albumin/Globulin Ratio 0.4L Height (Feet): 5 Height (Inches): 5.00 Weight (Pounds): 189 General Appearance: no apparent distress Cardiovascular: normal rate Respiratory/Chest: decreased breath sounds Abdomen: distended Objective no signs of CHF STANLEY MIGUEL May 13, 2017 15:43
--- NOTE | 2017-05-13 16:30 | Operative Note - Dictated ---
DATE OF OPERATION: 05/13/2017 PREOPERATIVE DIAGNOSES: Right ankle bimalleolar comminuted fracture with osteoporosis with tibiotalar dislocation. POSTOPERATIVE DIAGNOSES: Right ankle bimalleolar comminuted fracture with osteoporosis with tibiotalar dislocation. PROCEDURE: Open reduction and internal fixation of bimalleolar fracture with 8-hole lateral plate combined with two medial malleolar screws. SURGEON: Delmer Colón M.D. SPEECH LANGUAGE PATHOLOGY ASSISTANT: Chris Cramer ANESTHESIOLOGIST: Dr. Rivas. ANESTHESIA: LMA anesthesia. ESTIMATED BLOOD LOSS: Less than 100 mL. TOURNIQUET TIME: None. COMPLICATIONS: None. BRIEF HISTORY: The patient is a pleasant 71-year-old female, who sustained a fracture right ankle. This was fractured and dislocated. She was seen in the ER and an initial reduction was performed. The patient has significant other comorbidities including uncontrolled diabetes as well as hypertension. She was admitted to the hospital and once she was medically optimized and after full discussion of risks and benefits of surgery including infection, bleeding, neurovascular complication, possibility of malunion, possibility of nonunion, possible need for surgery down the line, and other complications that may arise, she opted for surgical treatment. OPERATIVE PROCEDURE: The patient was brought to the operating table and was placed supine. All pressure points were well padded. General LMA anesthesia was induced. The right leg was prepped and draped in usual sterile fashion. Initially, the right leg was exsanguinated and tourniquet was inflated to 275 mmHg. However, this was a venous tourniquet and therefore the tourniquet was deflated after about 2 or 3 minutes. Once the tourniquet was deflated, there was minimal bleeding. An incision was made over the lateral aspect of ankle and incision was taken through subcutaneous tissue. The fracture of the lateral malleolus was identified. This was extremely comminuted. The bone was very osteoporotic. Therefore, the reduction was performed as best as possible without disturbing the periosteal sleeve. A 8-hole 1/3 tubular plate was placed and the fibula was brought out to length and rotation was recreated and the plate was fixed as a bridging plate having three bicortical screws proximally and three cancellous screws distally. This brought up length to the fibula, rotation was neutralized, although there was a slight angulation of the proximal fragment medially. However, the mortise appeared to be intact and well maintained. Therefore this appeared to be acceptable considering the comminution as well as osteoporosis of the patient. At this point, care was given in the medial side. Incision was made over the medial malleolus. Incision was taken through subcutaneous tissue. The vein was protected. Fracture was identified and the periosteum was resected out of the fracture. Once this was completed, the fracture was reduced anatomically and two partially threaded 40 mm screws were placed in without any complication. The length of the screws were checked and appeared to be perfect. At this point, fluoroscopy was performed and medial malleolar reduction was checked and the lateral cortex appeared to be perfect. There was a slight 1 mm on the joint line, which was due to severe comminution. This appeared to be acceptable. All the screw threads were passed the fracture site. At this point, all wounds were thoroughly irrigated using copious amount of fluid. The final x-rays were obtained including AP, mortise and lateral, and the hardware and reduction for anatomical. Wounds were thoroughly irrigated using copious amount of fluid. The subcutaneous tissue was closed using 2-0 Vicryl suture. Skin was closed using naina. Sterile dressing was applied and posterior sugar-tong splints were applied. The patient was awakened was taken recovery room in a stable condition. All lap counts and instrument counts were correct. Preoperative antibiotic was given prior to start of surgery. Time-out was performed prior to start of surgery. Delmer Colón M.D. DR: [id number] JOB#: [id number] CC: [id number]
--- NOTE | 2017-05-13 17:28 | General Progress Note ---
Assessment/Plan Assessment/Plan ASSESSMENT AND RECOMMENDATION: 1. Anemia, likely related to anemia of chronic disease, workup has been reviewed --> s/p 2 units prbc 2. Coagulopathy, potentially secondary to vitamin K 3. Dislocation of subtalar joint. To be seen by Orthopedic Surgery. We will continue to monitor, potentially may require surgical intervention. 4. Hypertension, currently better controlled. 5. Diabetes mellitus, blood sugar above 600. 6. Acute kidney injury. Kidney ultrasound reviewed. Subjective ROS Limited/Unobtainable: Yes Allergies: Coded Allergies: No Known Allergies (Unverified , 05/11/17) Subjective foot pain better Objective Last 24 Hour Vital Signs Date Time Temp Pulse Resp B/P (MAP) Pulse Ox O2 Delivery O2 Flow Rate FiO2 05/13/17 17:06 70 145/69 05/13/17 16:00 98.5 70 20 145/69 99 Room Air 05/13/17 13:01 165/79 05/13/17 12:57 18 165/79 99 Nasal Cannula 3.0 05/13/17 12:45 78 18 180/75 98 Nasal Cannula 3.0 05/13/17 12:00 98.5 80 19 98 Nasal Cannula 3.0 05/13/17 11:59 86 05/13/17 11:00 97.8 85 16 161/76 98 Nasal Cannula 3.0 05/13/17 10:45 98.0 80 18 153/69 98 Nasal Cannula 3.0 05/13/17 10:15 98.1 76 15 145/66 100 Nasal Cannula 3.0 05/13/17 10:05 77 13 144/64 100 Nasal Cannula 3.0 05/13/17 09:50 98.1 05/13/17 09:50 74 15 150/68 100 Nasal Cannula 3.0 05/13/17 09:35 75 12 163/70 100 Nasal Cannula 3.0 05/13/17 09:20 83 18 165/74 100 Nasal Cannula 3.0 05/13/17 09:10 75 21 169/76 100 Nasal Cannula 3.0 05/13/17 09:05 85 13 172/77 100 Simple Mask 6.0 05/13/17 09:00 85 14 175/77 100 Simple Mask 6.0 05/13/17 08:59 80 16 100 05/13/17 08:56 98.0 79 15 175/87 100 Simple Mask 6.0 05/13/17 04:00 98.6 72 20 149/66 99 Room Air 05/13/17 04:00 70 05/13/17 00:00 99.3 77 18 157/69 97 Room Air 05/13/17 00:00 75 05/12/17 20:00 98.8 71 18 130/49 96 Room Air 05/12/17 20:00 70 05/12/17 17:33 183/72 Intake and Output 05/13/17 05/14/17 19:00 07:00 Intake Total 870 ml Output Total 475 ml Balance 395 ml Intake Oral 120 ml IV Total 750 ml Output Urine Total 350 ml Estimated Blood Loss 125 ml Laboratory Tests 05/12/17 17:30: White Blood Count 9.1, Red Blood Count 3.37L, Hemoglobin 9.0L, Hematocrit 28.7L , Mean Corpuscular Volume 85, Mean Corpuscular Hemoglobin 26.7L, Mean Corpuscular Hemoglobin Concent 31.4L, Red Cell Distribution Width 12.4, Platelet Count 275, Mean Platelet Volume 7.2, Neutrophils (%) (Auto) 74.3, Lymphocytes (%) (Auto) 13.2L, Monocytes (%) (Auto) 8.2, Eosinophils (%) (Auto) 3.4H, Basophils (%) (Auto) 0.9, Sodium Level 131L, Potassium Level 4.5, Chloride Level 101, Carbon Dioxide Level 21, Anion Gap 9, Blood Urea Nitrogen 35H, Creatinine 2.3H, Estimat Glomerular Filtration Rate 25.5, Glucose Level 176 #H, Calcium Level 8.9 05/13/17 04:00: Urine Eosinophils None seen 05/13/17 04:05: White Blood Count 7.4, Red Blood Count 3.15L, Hemoglobin 8.7L, Hematocrit 26.7L , Mean Corpuscular Volume 85, Mean Corpuscular Hemoglobin 27.6, Mean Corpuscular Hemoglobin Concent 32.7, Red Cell Distribution Width 12.5, Platelet Count 287, Mean Platelet Volume 7.7, Neutrophils (%) (Auto) 66.2, Lymphocytes (% ) (Auto) 20.5, Monocytes (%) (Auto) 8.4, Eosinophils (%) (Auto) 4.3H, Basophils (%) (Auto) 0.6, Sodium Level 133L, Potassium Level 4.3, Chloride Level 102, Carbon Dioxide Level 22, Anion Gap 9, Blood Urea Nitrogen 36H, Creatinine 2.4H, Estimat Glomerular Filtration Rate 24.2, Glucose Level 149H, Calcium Level 8.9, Uric Acid 7.6H, Phosphorus Level 3.1, Magnesium Level 1.9, Total Bilirubin 0.2, Aspartate Amino Transf (AST/SGOT) 9L, Alanine Aminotransferase (ALT/SGPT) 9L, Alkaline Phosphatase 112, C-Reactive Protein, Quantitative 12.7H, Pro-B-Type Natriuretic Peptide 3557H, Total Protein 5.7L, Albumin 1.5L, Globulin 4.2, Albumin/Globulin Ratio 0.4L Height (Feet): 5 Height (Inches): 5.00 Weight (Pounds): 189 Asa Mcgrath May 13, 2017 17:28
[2017-05-13] MEDS ORDERED: Epogen (for non ESRD use) SUBQ SCH (21:00)
[2017-05-13] MEDS ORDERED: NS 275ml ONE (21:40)
[2017-05-13] MEDS ORDERED: D5 1/2NS 1000ml IV ONE (21:40)
[2017-05-13] MEDS ORDERED: Tubing IV Secondary IV ONE (21:40)
--- NOTE | 2017-05-13 22:32 | General Progress Note ---
Assessment/Plan Problem List: (1) Trimalleolar fracture of right ankle ICD Codes: S82.851A - Displaced trimalleolar fracture of right lower leg, initial encounter for closed fracture SNOMED: 341360218, 74483854 Qualifiers: Qualified Codes: S82.851A - Displaced trimalleolar fracture of right lower leg, initial encounter for closed fracture (2) Status post fall ICD Codes: Z91.81 - History of falling SNOMED: 900150651 (3) Uncontrolled diabetes mellitus ICD Codes: E11.65 - Type 2 diabetes mellitus with hyperglycemia SNOMED: 35657739, 999085138 (4) HTN (hypertension) ICD Codes: I10 - Essential (primary) hypertension SNOMED: 85761806 (5) Hyperkalemia ICD Codes: E87.5 - Hyperkalemia SNOMED: 90180517 (6) ZENY (acute kidney injury) ICD Codes: N17.9 - Acute kidney failure, unspecified SNOMED: 14975642 (7) Hyponatremia ICD Codes: E87.1 - Hypo-osmolality and hyponatremia SNOMED: 21226385 (8) Pre-syncope ICD Codes: R55 - Syncope and collapse SNOMED: 172701568 (9) Anemia ICD Codes: D64.9 - Anemia, unspecified SNOMED: 766584509 Status: stable Assessment/Plan Ortho consulted, appreciate rec's s/p Open reduction and internal fixation of bimalleolar fracture of R ankle on 05/13/17 Endo consulted, appreciate rec's Novolog 6U TID AC SSI q4h Pt refusing long acting insulin, stating she has h/o "heart arrhythmia" with it prior Renal consulted, appreciate rec's EPO per renal Hold IVFs Renal U/S reviewed TTE reviewed and pt w/ normal EF Hold home lasix, lisinopril given ZENY (unknown baseline SCr) Clonidine PRN SBP>160 GI consulted, appreciate rec's PPI Possible plan for EGD on Mon s/p 2U pRBCs on 05/11/17 s/p 1U pRBC on 05/13/17 Trend CBC Heme/onc consulted, appreciate rec's If patient is required to have surgery, based on the patient's medical history, and other available ancillary data, the patient is a INTERMEDIATE risk for an INTERMEDIATE risk procedure. Per the most recent ACC/AHA guidelines, the patient does not need any further cardiopulmonary testing prior to the procedure and there do not appear to be any clear medical contraindications to proceeding with the proposed procedure. DVT Prophylaxis: SCD, HSQ Code Status: Full Hospital Classification Declaration: Based on this initial evaluation, and depending on the patient's clinical course, I anticipate that this patient will require hospitalization for 2-3 days for ankle fracture, uncontrolled diabetes, anemia and close respiratory/hemodynamic monitoring. Disposition: Once the patient is stable to leave the hospital, I anticipate the patient will likely be discharged to the following environment: home with HH + CG vs SNF I spent 42 minutes on this patient's case, and 25 minutes were dedicated to counseling and/or care coordination. Discussed with patient/family, nursing staff, SW/CM, endo, surgery, renal, GI regarding clinical status, treatment course, and disposition planning. D/w son re mgmt and d/c plan Time of note may not reflect time of encounter. Subjective Date patient seen: May 13, 2017 Time patient seen: 16:00 ROS Limited/Unobtainable: No Constitutional: Reports: no symptoms HEENT: Reports: no symptoms Cardiovascular: Reports: no symptoms Respiratory: Reports: no symptoms Gastrointestinal/Abdominal: Reports: no symptoms Genitourinary: Reports: no symptoms Neurologic/Psychiatric: Reports: no symptoms Endocrine: Reports: no symptoms Hematologic/Lymphatic: Reports: no symptoms Allergies: Coded Allergies: No Known Allergies (Unverified , 05/11/17) All Systems: reviewed and negative except above Subjective No acute o/n events s/p Open reduction and internal fixation of bimalleolar fracture of R ankle today, POD#0 Got 1U pRBC today Pt doing well. Says pain controlled. Denies f/c, n/v, d/c, chest pain, SOB Objective Last 24 Hour Vital Signs Date Time Temp Pulse Resp B/P (MAP) Pulse Ox O2 Delivery O2 Flow Rate FiO2 05/13/17 21:46 99.9 05/13/17 20:48 165/70 05/13/17 20:00 80 05/13/17 17:06 70 145/69 05/13/17 16:00 79 05/13/17 16:00 98.5 70 20 145/69 99 Room Air 05/13/17 13:01 165/79 05/13/17 12:57 18 165/79 99 Nasal Cannula 3.0 05/13/17 12:45 78 18 180/75 98 Nasal Cannula 3.0 05/13/17 12:00 98.5 80 19 98 Nasal Cannula 3.0 05/13/17 11:59 86 05/13/17 11:00 97.8 85 16 161/76 98 Nasal Cannula 3.0 05/13/17 10:45 98.0 80 18 153/69 98 Nasal Cannula 3.0 05/13/17 10:29 84 05/13/17 10:15 98.1 76 15 145/66 100 Nasal Cannula 3.0 05/13/17 10:05 77 13 144/64 100 Nasal Cannula 3.0 05/13/17 09:50 98.1 05/13/17 09:50 74 15 150/68 100 Nasal Cannula 3.0 05/13/17 09:35 75 12 163/70 100 Nasal Cannula 3.0 05/13/17 09:20 83 18 165/74 100 Nasal Cannula 3.0 05/13/17 09:10 75 21 169/76 100 Nasal Cannula 3.0 05/13/17 09:05 85 13 172/77 100 Simple Mask 6.0 05/13/17 09:00 85 14 175/77 100 Simple Mask 6.0 05/13/17 08:59 80 16 100 05/13/17 08:56 98.0 79 15 175/87 100 Simple Mask 6.0 05/13/17 08:06 78 05/13/17 04:00 98.6 72 20 149/66 99 Room Air 05/13/17 04:00 70 05/13/17 00:00 99.3 77 18 157/69 97 Room Air 05/13/17 00:00 75 Intake and Output 05/13/17 05/14/17 19:00 07:00 Intake Total 870 ml Output Total 475 ml Balance 395 ml Intake Oral 120 ml IV Total 750 ml Output Urine Total 350 ml Estimated Blood Loss 125 ml Laboratory Tests 05/13/17 04:00: Urine Eosinophils None seen 05/13/17 04:05: White Blood Count 7.4, Red Blood Count 3.15L, Hemoglobin 8.7L, Hematocrit 26.7L , Mean Corpuscular Volume 85, Mean Corpuscular Hemoglobin 27.6, Mean Corpuscular Hemoglobin Concent 32.7, Red Cell Distribution Width 12.5, Platelet Count 287, Mean Platelet Volume 7.7, Neutrophils (%) (Auto) 66.2, Lymphocytes (% ) (Auto) 20.5, Monocytes (%) (Auto) 8.4, Eosinophils (%) (Auto) 4.3H, Basophils (%) (Auto) 0.6, Sodium Level 133L, Potassium Level 4.3, Chloride Level 102, Carbon Dioxide Level 22, Anion Gap 9, Blood Urea Nitrogen 36H, Creatinine 2.4H, Estimat Glomerular Filtration Rate 24.2, Glucose Level 149H, Uric Acid 7.6H, Calcium Level 8.9, Phosphorus Level 3.1, Magnesium Level 1.9, Total Bilirubin 0.2, Aspartate Amino Transf (AST/SGOT) 9L, Alanine Aminotransferase (ALT/SGPT) 9L, Alkaline Phosphatase 112, C-Reactive Protein, Quantitative 12.7H, Pro-B- Type Natriuretic Peptide 3557H, Total Protein 5.7L, Albumin 1.5L, Globulin 4.2, Albumin/Globulin Ratio 0.4L Height (Feet): 5 Height (Inches): 5.00 Weight (Pounds): 189 Objective General: alert, cooperative, no distress, appears stated age Head: normocephalic, without obvious abnormality, atraumatic Eyes: conjunctivae/corneas clear. PERRL, EOM's intact, +legal blindness b/l Throat: lips, mucosa, and tongue normal. MMM Neck: supple, symmetrical, trachea midline, and no JVD Lungs: clear to auscultation bilaterally Heart: regular rate and rhythm, S1, S2 normal, no murmur, click, rub or gallop Abdomen: soft, non-tender, non-distended, bowel sounds normal; no masses or organomegaly Extremities: extremities normal, atraumatic, no cyanosis, +BLE edema RLE in splint L foot 1st and 2nd toe w/ ecchymoses Pulses: 2+ and symmetric Skin: skin color, texture, turgor normal; no rashes or lesions Neurologic: 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, no focal deficits Celestine Stevens M.D. May 13, 2017 22:32
--- NOTE | 2017-05-13 22:32 | General Progress Note ---
Assessment/Plan Problem List: (1) Trimalleolar fracture of right ankle ICD Codes: S82.851A - Displaced trimalleolar fracture of right lower leg, initial encounter for closed fracture SNOMED: 647525207, 60242885 Qualifiers: Qualified Codes: S82.851A - Displaced trimalleolar fracture of right lower leg, initial encounter for closed fracture (2) Status post fall ICD Codes: Z91.81 - History of falling SNOMED: 350697429 (3) Uncontrolled diabetes mellitus ICD Codes: E11.65 - Type 2 diabetes mellitus with hyperglycemia SNOMED: 46602661, 473617106 (4) HTN (hypertension) ICD Codes: I10 - Essential (primary) hypertension SNOMED: 62941109 (5) Hyperkalemia ICD Codes: E87.5 - Hyperkalemia SNOMED: 61011773 (6) ZENY (acute kidney injury) ICD Codes: N17.9 - Acute kidney failure, unspecified SNOMED: 03694352 (7) Hyponatremia ICD Codes: E87.1 - Hypo-osmolality and hyponatremia SNOMED: 38581759 (8) Pre-syncope ICD Codes: R55 - Syncope and collapse SNOMED: 001115509 (9) Anemia ICD Codes: D64.9 - Anemia, unspecified SNOMED: 505380447 Status: stable Assessment/Plan Ortho consulted, appreciate rec's s/p Open reduction and internal fixation of bimalleolar fracture of R ankle on 05/13/17 Endo consulted, appreciate rec's Novolog 6U TID AC SSI q4h Pt refusing long acting insulin, stating she has h/o "heart arrhythmia" with it prior Renal consulted, appreciate rec's EPO per renal Hold IVFs Renal U/S reviewed TTE reviewed and pt w/ normal EF Hold home lasix, lisinopril given ZENY (unknown baseline SCr) Clonidine PRN SBP>160 GI consulted, appreciate rec's PPI Possible plan for EGD on Mon s/p 2U pRBCs on 05/11/17 s/p 1U pRBC on 05/13/17 Trend CBC Heme/onc consulted, appreciate rec's If patient is required to have surgery, based on the patient's medical history, and other available ancillary data, the patient is a INTERMEDIATE risk for an INTERMEDIATE risk procedure. Per the most recent ACC/AHA guidelines, the patient does not need any further cardiopulmonary testing prior to the procedure and there do not appear to be any clear medical contraindications to proceeding with the proposed procedure. DVT Prophylaxis: SCD, HSQ Code Status: Full Hospital Classification Declaration: Based on this initial evaluation, and depending on the patient's clinical course, I anticipate that this patient will require hospitalization for 2-3 days for ankle fracture, uncontrolled diabetes, anemia and close respiratory/hemodynamic monitoring. Disposition: Once the patient is stable to leave the hospital, I anticipate the patient will likely be discharged to the following environment: home with HH + CG vs SNF I spent 42 minutes on this patient's case, and 25 minutes were dedicated to counseling and/or care coordination. Discussed with patient/family, nursing staff, SW/CM, endo, surgery, renal, GI regarding clinical status, treatment course, and disposition planning. D/w son re mgmt and d/c plan Time of note may not reflect time of encounter. Subjective Date patient seen: May 13, 2017 Time patient seen: 16:00 ROS Limited/Unobtainable: No Constitutional: Reports: no symptoms HEENT: Reports: no symptoms Cardiovascular: Reports: no symptoms Respiratory: Reports: no symptoms Gastrointestinal/Abdominal: Reports: no symptoms Genitourinary: Reports: no symptoms Neurologic/Psychiatric: Reports: no symptoms Endocrine: Reports: no symptoms Hematologic/Lymphatic: Reports: no symptoms Allergies: Coded Allergies: No Known Allergies (Unverified , 05/11/17) All Systems: reviewed and negative except above Subjective No acute o/n events s/p Open reduction and internal fixation of bimalleolar fracture of R ankle today, POD#0 Got 1U pRBC today Pt doing well. Says pain controlled. Denies f/c, n/v, d/c, chest pain, SOB Objective Last 24 Hour Vital Signs Date Time Temp Pulse Resp B/P (MAP) Pulse Ox O2 Delivery O2 Flow Rate FiO2 05/13/17 21:46 99.9 05/13/17 20:48 165/70 05/13/17 20:00 80 05/13/17 17:06 70 145/69 05/13/17 16:00 79 05/13/17 16:00 98.5 70 20 145/69 99 Room Air 05/13/17 13:01 165/79 05/13/17 12:57 18 165/79 99 Nasal Cannula 3.0 05/13/17 12:45 78 18 180/75 98 Nasal Cannula 3.0 05/13/17 12:00 98.5 80 19 98 Nasal Cannula 3.0 05/13/17 11:59 86 05/13/17 11:00 97.8 85 16 161/76 98 Nasal Cannula 3.0 05/13/17 10:45 98.0 80 18 153/69 98 Nasal Cannula 3.0 05/13/17 10:29 84 05/13/17 10:15 98.1 76 15 145/66 100 Nasal Cannula 3.0 05/13/17 10:05 77 13 144/64 100 Nasal Cannula 3.0 05/13/17 09:50 98.1 05/13/17 09:50 74 15 150/68 100 Nasal Cannula 3.0 05/13/17 09:35 75 12 163/70 100 Nasal Cannula 3.0 05/13/17 09:20 83 18 165/74 100 Nasal Cannula 3.0 05/13/17 09:10 75 21 169/76 100 Nasal Cannula 3.0 05/13/17 09:05 85 13 172/77 100 Simple Mask 6.0 05/13/17 09:00 85 14 175/77 100 Simple Mask 6.0 05/13/17 08:59 80 16 100 05/13/17 08:56 98.0 79 15 175/87 100 Simple Mask 6.0 05/13/17 08:06 78 05/13/17 04:00 98.6 72 20 149/66 99 Room Air 05/13/17 04:00 70 05/13/17 00:00 99.3 77 18 157/69 97 Room Air 05/13/17 00:00 75 Intake and Output 05/13/17 05/14/17 19:00 07:00 Intake Total 870 ml Output Total 475 ml Balance 395 ml Intake Oral 120 ml IV Total 750 ml Output Urine Total 350 ml Estimated Blood Loss 125 ml Laboratory Tests 05/13/17 04:00: Urine Eosinophils None seen 05/13/17 04:05: White Blood Count 7.4, Red Blood Count 3.15L, Hemoglobin 8.7L, Hematocrit 26.7L , Mean Corpuscular Volume 85, Mean Corpuscular Hemoglobin 27.6, Mean Corpuscular Hemoglobin Concent 32.7, Red Cell Distribution Width 12.5, Platelet Count 287, Mean Platelet Volume 7.7, Neutrophils (%) (Auto) 66.2, Lymphocytes (% ) (Auto) 20.5, Monocytes (%) (Auto) 8.4, Eosinophils (%) (Auto) 4.3H, Basophils (%) (Auto) 0.6, Sodium Level 133L, Potassium Level 4.3, Chloride Level 102, Carbon Dioxide Level 22, Anion Gap 9, Blood Urea Nitrogen 36H, Creatinine 2.4H, Estimat Glomerular Filtration Rate 24.2, Glucose Level 149H, Uric Acid 7.6H, Calcium Level 8.9, Phosphorus Level 3.1, Magnesium Level 1.9, Total Bilirubin 0.2, Aspartate Amino Transf (AST/SGOT) 9L, Alanine Aminotransferase (ALT/SGPT) 9L, Alkaline Phosphatase 112, C-Reactive Protein, Quantitative 12.7H, Pro-B- Type Natriuretic Peptide 3557H, Total Protein 5.7L, Albumin 1.5L, Globulin 4.2, Albumin/Globulin Ratio 0.4L Height (Feet): 5 Height (Inches): 5.00 Weight (Pounds): 189 Objective General: alert, cooperative, no distress, appears stated age Head: normocephalic, without obvious abnormality, atraumatic Eyes: conjunctivae/corneas clear. PERRL, EOM's intact, +legal blindness b/l Throat: lips, mucosa, and tongue normal. MMM Neck: supple, symmetrical, trachea midline, and no JVD Lungs: clear to auscultation bilaterally Heart: regular rate and rhythm, S1, S2 normal, no murmur, click, rub or gallop Abdomen: soft, non-tender, non-distended, bowel sounds normal; no masses or organomegaly Extremities: extremities normal, atraumatic, no cyanosis, +BLE edema RLE in splint L foot 1st and 2nd toe w/ ecchymoses Pulses: 2+ and symmetric Skin: skin color, texture, turgor normal; no rashes or lesions Neurologic: 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, no focal deficits Celestine Stevens M.D. May 13, 2017 22:32
--- NOTE | 2017-05-13 22:32 | General Progress Note ---
Assessment/Plan Problem List: (1) Trimalleolar fracture of right ankle ICD Codes: S82.851A - Displaced trimalleolar fracture of right lower leg, initial encounter for closed fracture SNOMED: 585503965, 16129051 Qualifiers: Qualified Codes: S82.851A - Displaced trimalleolar fracture of right lower leg, initial encounter for closed fracture (2) Status post fall ICD Codes: Z91.81 - History of falling SNOMED: 120148891 (3) Uncontrolled diabetes mellitus ICD Codes: E11.65 - Type 2 diabetes mellitus with hyperglycemia SNOMED: 48872816, 069334384 (4) HTN (hypertension) ICD Codes: I10 - Essential (primary) hypertension SNOMED: 39427908 (5) Hyperkalemia ICD Codes: E87.5 - Hyperkalemia SNOMED: 81529198 (6) ZENY (acute kidney injury) ICD Codes: N17.9 - Acute kidney failure, unspecified SNOMED: 08441513 (7) Hyponatremia ICD Codes: E87.1 - Hypo-osmolality and hyponatremia SNOMED: 22162035 (8) Pre-syncope ICD Codes: R55 - Syncope and collapse SNOMED: 287199331 (9) Anemia ICD Codes: D64.9 - Anemia, unspecified SNOMED: 335344001 Status: stable Assessment/Plan Ortho consulted, appreciate rec's s/p Open reduction and internal fixation of bimalleolar fracture of R ankle on 05/13/17 Endo consulted, appreciate rec's Novolog 6U TID AC SSI q4h Pt refusing long acting insulin, stating she has h/o "heart arrhythmia" with it prior Renal consulted, appreciate rec's EPO per renal Hold IVFs Renal U/S reviewed TTE reviewed and pt w/ normal EF Hold home lasix, lisinopril given ZENY (unknown baseline SCr) Clonidine PRN SBP>160 GI consulted, appreciate rec's PPI Possible plan for EGD on Mon s/p 2U pRBCs on 05/11/17 s/p 1U pRBC on 05/13/17 Trend CBC Heme/onc consulted, appreciate rec's If patient is required to have surgery, based on the patient's medical history, and other available ancillary data, the patient is a INTERMEDIATE risk for an INTERMEDIATE risk procedure. Per the most recent ACC/AHA guidelines, the patient does not need any further cardiopulmonary testing prior to the procedure and there do not appear to be any clear medical contraindications to proceeding with the proposed procedure. DVT Prophylaxis: SCD, HSQ Code Status: Full Hospital Classification Declaration: Based on this initial evaluation, and depending on the patient's clinical course, I anticipate that this patient will require hospitalization for 2-3 days for ankle fracture, uncontrolled diabetes, anemia and close respiratory/hemodynamic monitoring. Disposition: Once the patient is stable to leave the hospital, I anticipate the patient will likely be discharged to the following environment: home with HH + CG vs SNF I spent 42 minutes on this patient's case, and 25 minutes were dedicated to counseling and/or care coordination. Discussed with patient/family, nursing staff, SW/CM, endo, surgery, renal, GI regarding clinical status, treatment course, and disposition planning. D/w son re mgmt and d/c plan Time of note may not reflect time of encounter. Subjective Date patient seen: May 13, 2017 Time patient seen: 16:00 ROS Limited/Unobtainable: No Constitutional: Reports: no symptoms HEENT: Reports: no symptoms Cardiovascular: Reports: no symptoms Respiratory: Reports: no symptoms Gastrointestinal/Abdominal: Reports: no symptoms Genitourinary: Reports: no symptoms Neurologic/Psychiatric: Reports: no symptoms Endocrine: Reports: no symptoms Hematologic/Lymphatic: Reports: no symptoms Allergies: Coded Allergies: No Known Allergies (Unverified , 05/11/17) All Systems: reviewed and negative except above Subjective No acute o/n events s/p Open reduction and internal fixation of bimalleolar fracture of R ankle today, POD#0 Got 1U pRBC today Pt doing well. Says pain controlled. Denies f/c, n/v, d/c, chest pain, SOB Objective Last 24 Hour Vital Signs Date Time Temp Pulse Resp B/P (MAP) Pulse Ox O2 Delivery O2 Flow Rate FiO2 05/13/17 21:46 99.9 05/13/17 20:48 165/70 05/13/17 20:00 80 05/13/17 17:06 70 145/69 05/13/17 16:00 79 05/13/17 16:00 98.5 70 20 145/69 99 Room Air 05/13/17 13:01 165/79 05/13/17 12:57 18 165/79 99 Nasal Cannula 3.0 05/13/17 12:45 78 18 180/75 98 Nasal Cannula 3.0 05/13/17 12:00 98.5 80 19 98 Nasal Cannula 3.0 05/13/17 11:59 86 05/13/17 11:00 97.8 85 16 161/76 98 Nasal Cannula 3.0 05/13/17 10:45 98.0 80 18 153/69 98 Nasal Cannula 3.0 05/13/17 10:29 84 05/13/17 10:15 98.1 76 15 145/66 100 Nasal Cannula 3.0 05/13/17 10:05 77 13 144/64 100 Nasal Cannula 3.0 05/13/17 09:50 98.1 05/13/17 09:50 74 15 150/68 100 Nasal Cannula 3.0 05/13/17 09:35 75 12 163/70 100 Nasal Cannula 3.0 05/13/17 09:20 83 18 165/74 100 Nasal Cannula 3.0 05/13/17 09:10 75 21 169/76 100 Nasal Cannula 3.0 05/13/17 09:05 85 13 172/77 100 Simple Mask 6.0 05/13/17 09:00 85 14 175/77 100 Simple Mask 6.0 05/13/17 08:59 80 16 100 05/13/17 08:56 98.0 79 15 175/87 100 Simple Mask 6.0 05/13/17 08:06 78 05/13/17 04:00 98.6 72 20 149/66 99 Room Air 05/13/17 04:00 70 05/13/17 00:00 99.3 77 18 157/69 97 Room Air 05/13/17 00:00 75 Intake and Output 05/13/17 05/14/17 19:00 07:00 Intake Total 870 ml Output Total 475 ml Balance 395 ml Intake Oral 120 ml IV Total 750 ml Output Urine Total 350 ml Estimated Blood Loss 125 ml Laboratory Tests 05/13/17 04:00: Urine Eosinophils None seen 05/13/17 04:05: White Blood Count 7.4, Red Blood Count 3.15L, Hemoglobin 8.7L, Hematocrit 26.7L , Mean Corpuscular Volume 85, Mean Corpuscular Hemoglobin 27.6, Mean Corpuscular Hemoglobin Concent 32.7, Red Cell Distribution Width 12.5, Platelet Count 287, Mean Platelet Volume 7.7, Neutrophils (%) (Auto) 66.2, Lymphocytes (% ) (Auto) 20.5, Monocytes (%) (Auto) 8.4, Eosinophils (%) (Auto) 4.3H, Basophils (%) (Auto) 0.6, Sodium Level 133L, Potassium Level 4.3, Chloride Level 102, Carbon Dioxide Level 22, Anion Gap 9, Blood Urea Nitrogen 36H, Creatinine 2.4H, Estimat Glomerular Filtration Rate 24.2, Glucose Level 149H, Uric Acid 7.6H, Calcium Level 8.9, Phosphorus Level 3.1, Magnesium Level 1.9, Total Bilirubin 0.2, Aspartate Amino Transf (AST/SGOT) 9L, Alanine Aminotransferase (ALT/SGPT) 9L, Alkaline Phosphatase 112, C-Reactive Protein, Quantitative 12.7H, Pro-B- Type Natriuretic Peptide 3557H, Total Protein 5.7L, Albumin 1.5L, Globulin 4.2, Albumin/Globulin Ratio 0.4L Height (Feet): 5 Height (Inches): 5.00 Weight (Pounds): 189 Objective General: alert, cooperative, no distress, appears stated age Head: normocephalic, without obvious abnormality, atraumatic Eyes: conjunctivae/corneas clear. PERRL, EOM's intact, +legal blindness b/l Throat: lips, mucosa, and tongue normal. MMM Neck: supple, symmetrical, trachea midline, and no JVD Lungs: clear to auscultation bilaterally Heart: regular rate and rhythm, S1, S2 normal, no murmur, click, rub or gallop Abdomen: soft, non-tender, non-distended, bowel sounds normal; no masses or organomegaly Extremities: extremities normal, atraumatic, no cyanosis, +BLE edema RLE in splint L foot 1st and 2nd toe w/ ecchymoses Pulses: 2+ and symmetric Skin: skin color, texture, turgor normal; no rashes or lesions Neurologic: 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, no focal deficits Celestine Stevens M.D. May 13, 2017 22:32
[2017-05-14] VITALS (7 sets, daily range): BP systolic 122–175; BP diastolic 54–77
[2017-05-14] MEDS: Carvedilol 6.25mg Tab ORAL SCH ×2 (00:25→12:52)
[2017-05-14] MEDS: NovoLOG Insulin Flexpen SUBQ SCH ×6 (01:06→21:24)
[2017-05-14 05:33] LABS: BASOPHILS % (AUTO) 0.7 % (0.0-2.0); EOSINOPHILS % (AUTO) 2.5 % (0.0-3.0); HEMATOCRIT 30.3 % (37.0-47.0); HEMOGLOBIN 9.9 G/DL (12.0-16.0); LYMPHOCYTES % (AUTO) 16.6 % (20.0-45.0); MEAN CORPUSCULAR VOLUME 86 FL (80-99); MONOCYTES % (AUTO) 9.4 % (1.0-10.0); PLATELET COUNT 314 K/UL (150-450); RED BLOOD COUNT 3.54 M/UL (4.20-5.40); RED CELL DISTRIBUTION WIDTH 12.7 % (11.6-14.8); WHITE BLOOD COUNT 9.5 K/UL (4.8-10.8)
[2017-05-14 05:47] LABS: ANION GAP 11 mmol/L (5-15); BLOOD UREA NITROGEN 36 mg/dL (7-18); CARBON DIOXIDE 21 MMOL/L (21-32); CHLORIDE 101 MMOL/L (98-107); CREATININE 2.6 MG/DL (0.55-1.30); POTASSIUM 4.5 MMOL/L (3.5-5.1); SODIUM 133 MMOL/L (136-145)
[2017-05-14] MEDS: ceFAZolin sod 1 GM in D5W 55 ML IV SCH (06:09)
--- NOTE | 2017-05-14 07:05 | General Progress Note ---
Assessment/Plan Problem List: (1) Diabetes mellitus out of control ICD Codes: E11.65 - Type 2 diabetes mellitus with hyperglycemia SNOMED: 21185001, 378481093 (2) RIGHT ANKLE FRACTURE (3) ZENY (acute kidney injury) ICD Codes: N17.9 - Acute kidney failure, unspecified SNOMED: 95719738 (4) HLD (hyperlipidemia) ICD Codes: E78.5 - Hyperlipidemia, unspecified SNOMED: 76335316 (5) HTN (hypertension) ICD Codes: I10 - Essential (primary) hypertension SNOMED: 93611025 Assessment/Plan DC scheduled Novolog start Starlix 60 mg ac tid start Januvia 25 mg daily continue SSI Subjective Allergies: Coded Allergies: No Known Allergies (Unverified , 05/11/17) All Systems: reviewed and negative except above Subjective events noted - interval notes reviewed Objective Last 24 Hour Vital Signs Date Time Temp Pulse Resp B/P (MAP) Pulse Ox O2 Delivery O2 Flow Rate FiO2 05/14/17 04:04 98.8 75 20 122/57 99 Room Air 05/14/17 03:58 74 05/14/17 00:00 98.8 79 20 125/76 95 Room Air 05/14/17 00:00 74 05/13/17 21:46 99.9 05/13/17 20:48 165/70 05/13/17 20:00 99.8 82 16 157/87 98 Room Air 05/13/17 20:00 80 05/13/17 17:06 70 145/69 05/13/17 16:00 79 05/13/17 16:00 98.5 70 20 145/69 99 Room Air 05/13/17 13:01 165/79 05/13/17 12:57 18 165/79 99 Nasal Cannula 3.0 05/13/17 12:45 78 18 180/75 98 Nasal Cannula 3.0 05/13/17 12:00 98.5 80 19 98 Nasal Cannula 3.0 05/13/17 11:59 86 05/13/17 11:00 97.8 85 16 161/76 98 Nasal Cannula 3.0 05/13/17 10:45 98.0 80 18 153/69 98 Nasal Cannula 3.0 05/13/17 10:29 84 05/13/17 10:15 98.1 76 15 145/66 100 Nasal Cannula 3.0 05/13/17 10:05 77 13 144/64 100 Nasal Cannula 3.0 05/13/17 09:50 98.1 05/13/17 09:50 74 15 150/68 100 Nasal Cannula 3.0 05/13/17 09:35 75 12 163/70 100 Nasal Cannula 3.0 05/13/17 09:20 83 18 165/74 100 Nasal Cannula 3.0 05/13/17 09:10 75 21 169/76 100 Nasal Cannula 3.0 05/13/17 09:05 85 13 172/77 100 Simple Mask 6.0 05/13/17 09:00 85 14 175/77 100 Simple Mask 6.0 05/13/17 08:59 80 16 100 05/13/17 08:56 98.0 79 15 175/87 100 Simple Mask 6.0 05/13/17 08:06 78 Laboratory Tests 05/14/17 03:30: White Blood Count 9.5, Red Blood Count 3.54L, Hemoglobin 9.9L, Hematocrit 30.3L , Mean Corpuscular Volume 86, Mean Corpuscular Hemoglobin 28.1, Mean Corpuscular Hemoglobin Concent 32.8, Red Cell Distribution Width 12.7, Platelet Count 314, Mean Platelet Volume 7.7, Neutrophils (%) (Auto) 71.0, Lymphocytes (% ) (Auto) 16.6L, Monocytes (%) (Auto) 9.4, Eosinophils (%) (Auto) 2.5, Basophils (%) (Auto) 0.7, Urine Eosinophils [Pending], Sodium Level 133L, Potassium Level 4.5, Chloride Level 101, Carbon Dioxide Level 21, Anion Gap 11, Blood Urea Nitrogen 36H, Creatinine 2.6H, Estimat Glomerular Filtration Rate 22.2, Glucose Level 113H, Calcium Level 9.0 Height (Feet): 5 Height (Inches): 5.00 Weight (Pounds): 189 General Appearance: no apparent distress EENT: other - blind Neck: normal alignment Cardiovascular: normal rate Respiratory/Chest: decreased breath sounds Abdomen: normal bowel sounds Objective Current Medications Medications (Trade) Dose Ordered Sig/Andre Route PRN Reason Start Time Stop Time Status Last Admin Dose Admin Acetaminophen (Tylenol) 650 mg Q4H PRN ORAL Mild Pain/Temp > 100.5 05/11/17 20:15 11/17/17 20:14 05/14/17 02:19 Acetaminophen (Tylenol) 650 mg Q6H PRN ORAL Mild Pain/Temp > 100.5 05/13/17 07:15 06/12/17 07:14 Acetaminophen/ Hydrocodone Bitart ([place] 5/325) 1 tab Q4H PRN ORAL Moderate Pain (Pain Scale 4-6) 05/13/17 15:00 05/20/17 14:59 Amlodipine Besylate (Norvasc) 5 mg BID ORAL 05/13/17 18:00 06/12/17 17:59 Bisacodyl (Dulcolax) 10 mg DAILYPRN PRN RECTAL Constipation 05/13/17 22:30 06/12/17 22:29 Cefazolin Sodium 1 gm/Dextrose 55 ml @ 110 mls/hr Q8H IV 05/13/17 15:00 05/14/17 07:29 05/14/17 06:09 Clonidine HCl (Catapres) 0.1 mg TIDPRN PRN ORAL SBP>160 05/11/17 15:30 06/10/17 15:29 05/13/17 20:48 Dextrose (Dextrose 50%) STAT PRN IV Hypoglycemia 05/11/17 08:45 06/10/17 08:44 Docusate Sodium (Colace) 100 mg THREE TIMES A DAY ORAL 05/13/17 09:00 06/12/17 08:59 05/13/17 17:40 Enoxaparin Sodium (Lovenox) 30 mg EVERY 12 HOURS SUBQ 05/14/17 09:00 05/28/17 08:59 Epoetin Marcus (Procrit (for non ESRD use)) 10,000 units TUE-TUE-TUE SUBQ 05/13/17 21:00 06/12/17 20:59 05/13/17 20:49 Hydromorphone HCl (Dilaudid) 0.5 mg Q4H PRN SUBQ Mild Pain (Pain Scale 1-3) 05/13/17 07:15 05/20/17 07:14 Hydromorphone HCl (Dilaudid) 1 mg Q3H PRN SUBQ Moderate Pain (Pain Scale 4-6) 05/13/17 19:00 05/20/17 07:14 Insulin Aspart (NovoLOG) 6 units NOVOTIAC SUBQ 05/12/17 06:30 06/11/17 06:29 05/13/17 17:02 Insulin Aspart (NovoLOG) No Dose Q4HR SUBQ 05/11/17 17:00 06/10/17 16:29 05/14/17 01:06 Oxycodone HCl (OxyCONTIN) 20 mg EVERY 12 HOURS ORAL 05/13/17 09:00 05/20/17 08:59 05/13/17 20:49 Pantoprazole (Protonix) 40 mg DAILY ORAL 05/11/17 15:45 06/10/17 15:44 05/12/17 08:47 Polyethylene Glycol (Miralax) 17 gm DAILY ORAL 05/14/17 08:00 06/13/17 07:59 Sennosides (Senokot) 17.2 mg QHS ORAL 05/14/17 21:00 06/13/17 20:59 Item Value Date Time Bedside Blood Glucose 111 mg/dl 05/14/17 0607 Bedside Blood Glucose 171 mg/dl H 05/14/17 0106 Bedside Blood Glucose 104 mg/dl 05/13/17 2051 Bedside Blood Glucose 213 mg/dl H 05/13/17 1705 ELO ALVAREZ May 14, 2017 07:05
--- NOTE | 2017-05-14 07:05 | General Progress Note ---
Assessment/Plan Problem List: (1) Diabetes mellitus out of control ICD Codes: E11.65 - Type 2 diabetes mellitus with hyperglycemia SNOMED: 93613625, 472649486 (2) RIGHT ANKLE FRACTURE (3) ZENY (acute kidney injury) ICD Codes: N17.9 - Acute kidney failure, unspecified SNOMED: 39445216 (4) HLD (hyperlipidemia) ICD Codes: E78.5 - Hyperlipidemia, unspecified SNOMED: 57887612 (5) HTN (hypertension) ICD Codes: I10 - Essential (primary) hypertension SNOMED: 42875214 Assessment/Plan DC scheduled Novolog start Starlix 60 mg ac tid start Januvia 25 mg daily continue SSI Subjective Allergies: Coded Allergies: No Known Allergies (Unverified , 05/11/17) All Systems: reviewed and negative except above Subjective events noted - interval notes reviewed Objective Last 24 Hour Vital Signs Date Time Temp Pulse Resp B/P (MAP) Pulse Ox O2 Delivery O2 Flow Rate FiO2 05/14/17 04:04 98.8 75 20 122/57 99 Room Air 05/14/17 03:58 74 05/14/17 00:00 98.8 79 20 125/76 95 Room Air 05/14/17 00:00 74 05/13/17 21:46 99.9 05/13/17 20:48 165/70 05/13/17 20:00 99.8 82 16 157/87 98 Room Air 05/13/17 20:00 80 05/13/17 17:06 70 145/69 05/13/17 16:00 79 05/13/17 16:00 98.5 70 20 145/69 99 Room Air 05/13/17 13:01 165/79 05/13/17 12:57 18 165/79 99 Nasal Cannula 3.0 05/13/17 12:45 78 18 180/75 98 Nasal Cannula 3.0 05/13/17 12:00 98.5 80 19 98 Nasal Cannula 3.0 05/13/17 11:59 86 05/13/17 11:00 97.8 85 16 161/76 98 Nasal Cannula 3.0 05/13/17 10:45 98.0 80 18 153/69 98 Nasal Cannula 3.0 05/13/17 10:29 84 05/13/17 10:15 98.1 76 15 145/66 100 Nasal Cannula 3.0 05/13/17 10:05 77 13 144/64 100 Nasal Cannula 3.0 05/13/17 09:50 98.1 05/13/17 09:50 74 15 150/68 100 Nasal Cannula 3.0 05/13/17 09:35 75 12 163/70 100 Nasal Cannula 3.0 05/13/17 09:20 83 18 165/74 100 Nasal Cannula 3.0 05/13/17 09:10 75 21 169/76 100 Nasal Cannula 3.0 05/13/17 09:05 85 13 172/77 100 Simple Mask 6.0 05/13/17 09:00 85 14 175/77 100 Simple Mask 6.0 05/13/17 08:59 80 16 100 05/13/17 08:56 98.0 79 15 175/87 100 Simple Mask 6.0 05/13/17 08:06 78 Laboratory Tests 05/14/17 03:30: White Blood Count 9.5, Red Blood Count 3.54L, Hemoglobin 9.9L, Hematocrit 30.3L , Mean Corpuscular Volume 86, Mean Corpuscular Hemoglobin 28.1, Mean Corpuscular Hemoglobin Concent 32.8, Red Cell Distribution Width 12.7, Platelet Count 314, Mean Platelet Volume 7.7, Neutrophils (%) (Auto) 71.0, Lymphocytes (% ) (Auto) 16.6L, Monocytes (%) (Auto) 9.4, Eosinophils (%) (Auto) 2.5, Basophils (%) (Auto) 0.7, Urine Eosinophils [Pending], Sodium Level 133L, Potassium Level 4.5, Chloride Level 101, Carbon Dioxide Level 21, Anion Gap 11, Blood Urea Nitrogen 36H, Creatinine 2.6H, Estimat Glomerular Filtration Rate 22.2, Glucose Level 113H, Calcium Level 9.0 Height (Feet): 5 Height (Inches): 5.00 Weight (Pounds): 189 General Appearance: no apparent distress EENT: other - blind Neck: normal alignment Cardiovascular: normal rate Respiratory/Chest: decreased breath sounds Abdomen: normal bowel sounds Objective Current Medications Medications (Trade) Dose Ordered Sig/Andre Route PRN Reason Start Time Stop Time Status Last Admin Dose Admin Acetaminophen (Tylenol) 650 mg Q4H PRN ORAL Mild Pain/Temp > 100.5 05/11/17 20:15 11/17/17 20:14 05/14/17 02:19 Acetaminophen (Tylenol) 650 mg Q6H PRN ORAL Mild Pain/Temp > 100.5 05/13/17 07:15 06/12/17 07:14 Acetaminophen/ Hydrocodone Bitart ([place] 5/325) 1 tab Q4H PRN ORAL Moderate Pain (Pain Scale 4-6) 05/13/17 15:00 05/20/17 14:59 Amlodipine Besylate (Norvasc) 5 mg BID ORAL 05/13/17 18:00 06/12/17 17:59 Bisacodyl (Dulcolax) 10 mg DAILYPRN PRN RECTAL Constipation 05/13/17 22:30 06/12/17 22:29 Cefazolin Sodium 1 gm/Dextrose 55 ml @ 110 mls/hr Q8H IV 05/13/17 15:00 05/14/17 07:29 05/14/17 06:09 Clonidine HCl (Catapres) 0.1 mg TIDPRN PRN ORAL SBP>160 05/11/17 15:30 06/10/17 15:29 05/13/17 20:48 Dextrose (Dextrose 50%) STAT PRN IV Hypoglycemia 05/11/17 08:45 06/10/17 08:44 Docusate Sodium (Colace) 100 mg THREE TIMES A DAY ORAL 05/13/17 09:00 06/12/17 08:59 05/13/17 17:40 Enoxaparin Sodium (Lovenox) 30 mg EVERY 12 HOURS SUBQ 05/14/17 09:00 05/28/17 08:59 Epoetin Marcus (Procrit (for non ESRD use)) 10,000 units TUE-TUE-TUE SUBQ 05/13/17 21:00 06/12/17 20:59 05/13/17 20:49 Hydromorphone HCl (Dilaudid) 0.5 mg Q4H PRN SUBQ Mild Pain (Pain Scale 1-3) 05/13/17 07:15 05/20/17 07:14 Hydromorphone HCl (Dilaudid) 1 mg Q3H PRN SUBQ Moderate Pain (Pain Scale 4-6) 05/13/17 19:00 05/20/17 07:14 Insulin Aspart (NovoLOG) 6 units NOVOTIAC SUBQ 05/12/17 06:30 06/11/17 06:29 05/13/17 17:02 Insulin Aspart (NovoLOG) No Dose Q4HR SUBQ 05/11/17 17:00 06/10/17 16:29 05/14/17 01:06 Oxycodone HCl (OxyCONTIN) 20 mg EVERY 12 HOURS ORAL 05/13/17 09:00 05/20/17 08:59 05/13/17 20:49 Pantoprazole (Protonix) 40 mg DAILY ORAL 05/11/17 15:45 06/10/17 15:44 05/12/17 08:47 Polyethylene Glycol (Miralax) 17 gm DAILY ORAL 05/14/17 08:00 06/13/17 07:59 Sennosides (Senokot) 17.2 mg QHS ORAL 05/14/17 21:00 06/13/17 20:59 Item Value Date Time Bedside Blood Glucose 111 mg/dl 05/14/17 0607 Bedside Blood Glucose 171 mg/dl H 05/14/17 0106 Bedside Blood Glucose 104 mg/dl 05/13/17 2051 Bedside Blood Glucose 213 mg/dl H 05/13/17 1705 ELO ALVAREZ May 14, 2017 07:05
--- NOTE | 2017-05-14 07:05 | General Progress Note ---
Assessment/Plan Problem List: (1) Diabetes mellitus out of control ICD Codes: E11.65 - Type 2 diabetes mellitus with hyperglycemia SNOMED: 72704174, 869602671 (2) RIGHT ANKLE FRACTURE (3) ZENY (acute kidney injury) ICD Codes: N17.9 - Acute kidney failure, unspecified SNOMED: 88104312 (4) HLD (hyperlipidemia) ICD Codes: E78.5 - Hyperlipidemia, unspecified SNOMED: 31741687 (5) HTN (hypertension) ICD Codes: I10 - Essential (primary) hypertension SNOMED: 62018451 Assessment/Plan DC scheduled Novolog start Starlix 60 mg ac tid start Januvia 25 mg daily continue SSI Subjective Allergies: Coded Allergies: No Known Allergies (Unverified , 05/11/17) All Systems: reviewed and negative except above Subjective events noted - interval notes reviewed Objective Last 24 Hour Vital Signs Date Time Temp Pulse Resp B/P (MAP) Pulse Ox O2 Delivery O2 Flow Rate FiO2 05/14/17 04:04 98.8 75 20 122/57 99 Room Air 05/14/17 03:58 74 05/14/17 00:00 98.8 79 20 125/76 95 Room Air 05/14/17 00:00 74 05/13/17 21:46 99.9 05/13/17 20:48 165/70 05/13/17 20:00 99.8 82 16 157/87 98 Room Air 05/13/17 20:00 80 05/13/17 17:06 70 145/69 05/13/17 16:00 79 05/13/17 16:00 98.5 70 20 145/69 99 Room Air 05/13/17 13:01 165/79 05/13/17 12:57 18 165/79 99 Nasal Cannula 3.0 05/13/17 12:45 78 18 180/75 98 Nasal Cannula 3.0 05/13/17 12:00 98.5 80 19 98 Nasal Cannula 3.0 05/13/17 11:59 86 05/13/17 11:00 97.8 85 16 161/76 98 Nasal Cannula 3.0 05/13/17 10:45 98.0 80 18 153/69 98 Nasal Cannula 3.0 05/13/17 10:29 84 05/13/17 10:15 98.1 76 15 145/66 100 Nasal Cannula 3.0 05/13/17 10:05 77 13 144/64 100 Nasal Cannula 3.0 05/13/17 09:50 98.1 05/13/17 09:50 74 15 150/68 100 Nasal Cannula 3.0 05/13/17 09:35 75 12 163/70 100 Nasal Cannula 3.0 05/13/17 09:20 83 18 165/74 100 Nasal Cannula 3.0 05/13/17 09:10 75 21 169/76 100 Nasal Cannula 3.0 05/13/17 09:05 85 13 172/77 100 Simple Mask 6.0 05/13/17 09:00 85 14 175/77 100 Simple Mask 6.0 05/13/17 08:59 80 16 100 05/13/17 08:56 98.0 79 15 175/87 100 Simple Mask 6.0 05/13/17 08:06 78 Laboratory Tests 05/14/17 03:30: White Blood Count 9.5, Red Blood Count 3.54L, Hemoglobin 9.9L, Hematocrit 30.3L , Mean Corpuscular Volume 86, Mean Corpuscular Hemoglobin 28.1, Mean Corpuscular Hemoglobin Concent 32.8, Red Cell Distribution Width 12.7, Platelet Count 314, Mean Platelet Volume 7.7, Neutrophils (%) (Auto) 71.0, Lymphocytes (% ) (Auto) 16.6L, Monocytes (%) (Auto) 9.4, Eosinophils (%) (Auto) 2.5, Basophils (%) (Auto) 0.7, Urine Eosinophils [Pending], Sodium Level 133L, Potassium Level 4.5, Chloride Level 101, Carbon Dioxide Level 21, Anion Gap 11, Blood Urea Nitrogen 36H, Creatinine 2.6H, Estimat Glomerular Filtration Rate 22.2, Glucose Level 113H, Calcium Level 9.0 Height (Feet): 5 Height (Inches): 5.00 Weight (Pounds): 189 General Appearance: no apparent distress EENT: other - blind Neck: normal alignment Cardiovascular: normal rate Respiratory/Chest: decreased breath sounds Abdomen: normal bowel sounds Objective Current Medications Medications (Trade) Dose Ordered Sig/Andre Route PRN Reason Start Time Stop Time Status Last Admin Dose Admin Acetaminophen (Tylenol) 650 mg Q4H PRN ORAL Mild Pain/Temp > 100.5 05/11/17 20:15 11/17/17 20:14 05/14/17 02:19 Acetaminophen (Tylenol) 650 mg Q6H PRN ORAL Mild Pain/Temp > 100.5 05/13/17 07:15 06/12/17 07:14 Acetaminophen/ Hydrocodone Bitart ([place] 5/325) 1 tab Q4H PRN ORAL Moderate Pain (Pain Scale 4-6) 05/13/17 15:00 05/20/17 14:59 Amlodipine Besylate (Norvasc) 5 mg BID ORAL 05/13/17 18:00 06/12/17 17:59 Bisacodyl (Dulcolax) 10 mg DAILYPRN PRN RECTAL Constipation 05/13/17 22:30 06/12/17 22:29 Cefazolin Sodium 1 gm/Dextrose 55 ml @ 110 mls/hr Q8H IV 05/13/17 15:00 05/14/17 07:29 05/14/17 06:09 Clonidine HCl (Catapres) 0.1 mg TIDPRN PRN ORAL SBP>160 05/11/17 15:30 06/10/17 15:29 05/13/17 20:48 Dextrose (Dextrose 50%) STAT PRN IV Hypoglycemia 05/11/17 08:45 06/10/17 08:44 Docusate Sodium (Colace) 100 mg THREE TIMES A DAY ORAL 05/13/17 09:00 06/12/17 08:59 05/13/17 17:40 Enoxaparin Sodium (Lovenox) 30 mg EVERY 12 HOURS SUBQ 05/14/17 09:00 05/28/17 08:59 Epoetin Marcus (Procrit (for non ESRD use)) 10,000 units TUE-TUE-TUE SUBQ 05/13/17 21:00 06/12/17 20:59 05/13/17 20:49 Hydromorphone HCl (Dilaudid) 0.5 mg Q4H PRN SUBQ Mild Pain (Pain Scale 1-3) 05/13/17 07:15 05/20/17 07:14 Hydromorphone HCl (Dilaudid) 1 mg Q3H PRN SUBQ Moderate Pain (Pain Scale 4-6) 05/13/17 19:00 05/20/17 07:14 Insulin Aspart (NovoLOG) 6 units NOVOTIAC SUBQ 05/12/17 06:30 06/11/17 06:29 05/13/17 17:02 Insulin Aspart (NovoLOG) No Dose Q4HR SUBQ 05/11/17 17:00 06/10/17 16:29 05/14/17 01:06 Oxycodone HCl (OxyCONTIN) 20 mg EVERY 12 HOURS ORAL 05/13/17 09:00 05/20/17 08:59 05/13/17 20:49 Pantoprazole (Protonix) 40 mg DAILY ORAL 05/11/17 15:45 06/10/17 15:44 05/12/17 08:47 Polyethylene Glycol (Miralax) 17 gm DAILY ORAL 05/14/17 08:00 06/13/17 07:59 Sennosides (Senokot) 17.2 mg QHS ORAL 05/14/17 21:00 06/13/17 20:59 Item Value Date Time Bedside Blood Glucose 111 mg/dl 05/14/17 0607 Bedside Blood Glucose 171 mg/dl H 05/14/17 0106 Bedside Blood Glucose 104 mg/dl 05/13/17 2051 Bedside Blood Glucose 213 mg/dl H 05/13/17 1705 ELO ALVAREZ May 14, 2017 07:05
[2017-05-14] MEDS: Docusate 100mg cap ORAL SCH ×3 (08:09→17:49)
[2017-05-14] MEDS: Miralax 17gm pkt ORAL SCH ×2 (08:10→09:00)
[2017-05-14] MEDS: Enoxaparin 30mg Inj SUBQ SCH ×2 (08:11→21:13)
--- NOTE | 2017-05-14 08:23 | Consultation ---
Consult Note Assessment/Plan A/ 1) Dry Blisters left hallux and left 2nd toe 2) Subungual hematoma left hallux - dry 3) Edema 4) DM 5) Ankle fx s/p ORIF P/ 1) Arterial duplex 2) Monitor sites 3) Extensive chart review performed 4) Will follow Thank you Hany Trimble DPM May 14, 2017 08:23
[2017-05-14] MEDS: oxyCONTIN 20mg tab ORAL SCH ×2 (09:00→21:00)
[2017-05-14] MEDS ORDERED: HydrALAZINE 25mg tab ORAL PRN (12:30)
--- NOTE | 2017-05-14 12:33 | General Progress Note ---
Assessment/Plan Status: stable Assessment/Plan status: Renal Failure- Chronic vs Acute or superimposed acute Anemia Fx ankle DM HTN Plan; Post Op day2 start Coreg and PRN Hydralazine Boyd urine studies 2D Echo- ejFx 60 Kidney JOYCELYN negative EPO One dose Venofer Subjective ROS Limited/Unobtainable: No Constitutional: Reports: malaise Allergies: Coded Allergies: No Known Allergies (Unverified , 05/11/17) Objective Last 24 Hour Vital Signs Date Time Temp Pulse Resp B/P (MAP) Pulse Ox O2 Delivery O2 Flow Rate FiO2 05/14/17 12:00 98.5 82 20 162/73 98 Room Air 05/14/17 08:10 85 129/54 05/14/17 08:00 98.6 85 20 129/54 98 Room Air 05/14/17 07:49 84 05/14/17 04:04 98.8 75 20 122/57 99 Room Air 05/14/17 03:58 74 05/14/17 00:00 98.8 79 20 125/76 95 Room Air 05/14/17 00:00 74 05/13/17 21:46 99.9 05/13/17 20:48 165/70 05/13/17 20:00 99.8 82 16 157/87 98 Room Air 05/13/17 20:00 80 05/13/17 17:06 70 145/69 05/13/17 16:00 79 05/13/17 16:00 98.5 70 20 145/69 99 Room Air 05/13/17 13:01 165/79 05/13/17 12:57 18 165/79 99 Nasal Cannula 3.0 05/13/17 12:45 78 18 180/75 98 Nasal Cannula 3.0 Laboratory Tests 05/14/17 03:30: White Blood Count 9.5, Red Blood Count 3.54L, Hemoglobin 9.9L, Hematocrit 30.3L , Mean Corpuscular Volume 86, Mean Corpuscular Hemoglobin 28.1, Mean Corpuscular Hemoglobin Concent 32.8, Red Cell Distribution Width 12.7, Platelet Count 314, Mean Platelet Volume 7.7, Neutrophils (%) (Auto) 71.0, Lymphocytes (% ) (Auto) 16.6L, Monocytes (%) (Auto) 9.4, Eosinophils (%) (Auto) 2.5, Basophils (%) (Auto) 0.7, Urine Eosinophils Rare, Sodium Level 133L, Potassium Level 4.5, Chloride Level 101, Carbon Dioxide Level 21, Anion Gap 11, Blood Urea Nitrogen 36H, Creatinine 2.6H, Estimat Glomerular Filtration Rate 22.2, Glucose Level 113H, Calcium Level 9.0 Height (Feet): 5 Height (Inches): 5.00 Weight (Pounds): 189 General Appearance: no apparent distress Objective no signs of CHF STANLEY MIGUEL May 14, 2017 12:33
[2017-05-14] MEDS: Nateglinide 60mg tab ORAL SCH ×2 (12:52→16:46)
--- NOTE | 2017-05-14 13:09 | General Progress Note ---
Assessment/Plan Problem List: (1) Trimalleolar fracture of right ankle ICD Codes: S82.851A - Displaced trimalleolar fracture of right lower leg, initial encounter for closed fracture SNOMED: 877567441, 87315764 Qualifiers: Qualified Codes: S82.851A - Displaced trimalleolar fracture of right lower leg, initial encounter for closed fracture (2) Status post fall ICD Codes: Z91.81 - History of falling SNOMED: 221268311 (3) Uncontrolled diabetes mellitus ICD Codes: E11.65 - Type 2 diabetes mellitus with hyperglycemia SNOMED: 96985107, 819494994 (4) HTN (hypertension) ICD Codes: I10 - Essential (primary) hypertension SNOMED: 38165991 (5) Hyperkalemia ICD Codes: E87.5 - Hyperkalemia SNOMED: 09864403 (6) ZENY (acute kidney injury) ICD Codes: N17.9 - Acute kidney failure, unspecified SNOMED: 27093762 (7) Hyponatremia ICD Codes: E87.1 - Hypo-osmolality and hyponatremia SNOMED: 39032635 (8) Pre-syncope ICD Codes: R55 - Syncope and collapse SNOMED: 780877546 (9) Anemia ICD Codes: D64.9 - Anemia, unspecified SNOMED: 832870792 (10) Subungual hematoma left hallux (11) Dry blisters L hallux and L 2nd toe (12) Dry blisters L hallux and L 2nd toe Status: stable Assessment/Plan Ortho consulted, appreciate rec's s/p Open reduction and internal fixation of bimalleolar fracture of R ankle on 05/13/17 Endo consulted, appreciate rec's Januvia + Starlix per endo D/c standing novlog SSI q4h Pt refusing long acting insulin, stating she has h/o "heart arrhythmia" with it prior Renal consulted, appreciate rec's EPO per renal Hold IVFs Renal U/S reviewed TTE reviewed and pt w/ normal EF Hold home lasix, lisinopril given ZENY (unknown baseline SCr) Clonidine PRN SBP>160 GI consulted, appreciate rec's PPI Possible plan for EGD on Mon s/p 2U pRBCs on 05/11/17 s/p 1U pRBC on 05/13/17 Trend CBC Heme/onc consulted, appreciate rec's CM/SW consulted for d/c planning assistance. Pt refusing SNF. Likely d/c home w / hh +CG DME ordered HH ordered Possible d/c Sun vs Mon DVT Prophylaxis: SCD, Lovenox Code Status: Full Hospital Classification Declaration: Based on this initial evaluation, and depending on the patient's clinical course, I anticipate that this patient will require hospitalization for 2-3 days for ankle fracture, uncontrolled diabetes, anemia and close respiratory/hemodynamic monitoring. Disposition: Once the patient is stable to leave the hospital, I anticipate the patient will likely be discharged to the following environment: home with HH + CG vs SNF I spent 40 minutes on this patient's case, and 22 minutes were dedicated to counseling and/or care coordination. Discussed with patient/family, nursing staff, SW/CM, endo, surgery, renal, GI regarding clinical status, treatment course, and disposition planning. D/w son re mgmt and d/c plan Time of note may not reflect time of encounter. Subjective Date patient seen: May 14, 2017 Time patient seen: 13:09 ROS Limited/Unobtainable: No Constitutional: Reports: no symptoms HEENT: Reports: no symptoms Cardiovascular: Reports: no symptoms Respiratory: Reports: no symptoms Gastrointestinal/Abdominal: Reports: no symptoms Genitourinary: Reports: no symptoms Neurologic/Psychiatric: Reports: no symptoms Endocrine: Reports: no symptoms Hematologic/Lymphatic: Reports: no symptoms Allergies: Coded Allergies: No Known Allergies (Unverified , 05/11/17) All Systems: reviewed and negative except above Subjective No acute o/n events s/p Open reduction and internal fixation of bimalleolar fracture of R ankle today, POD#1 Hgb 9.9 this AM. Got 1U pRBC yesterday Pt doing well. Says pain controlled. Denies f/c, n/v, d/c, chest pain, SOB Worked w/ PT--stood up brielfy Refusing SNF. Wants to go home w/ HH and CG. Requesting hospital bed, wheelchair and FWW Objective Last 24 Hour Vital Signs Date Time Temp Pulse Resp B/P (MAP) Pulse Ox O2 Delivery O2 Flow Rate FiO2 05/14/17 12:52 82 162/73 05/14/17 12:00 98.5 82 20 162/73 98 Room Air 05/14/17 11:55 84 05/14/17 08:10 85 129/54 05/14/17 08:00 98.6 85 20 129/54 98 Room Air 05/14/17 07:49 84 05/14/17 04:04 98.8 75 20 122/57 99 Room Air 05/14/17 03:58 74 05/14/17 00:00 98.8 79 20 125/76 95 Room Air 05/14/17 00:00 74 05/13/17 21:46 99.9 05/13/17 20:48 165/70 05/13/17 20:00 99.8 82 16 157/87 98 Room Air 05/13/17 20:00 80 05/13/17 17:06 70 145/69 05/13/17 16:00 79 05/13/17 16:00 98.5 70 20 145/69 99 Room Air Laboratory Tests 05/14/17 03:30: White Blood Count 9.5, Red Blood Count 3.54L, Hemoglobin 9.9L, Hematocrit 30.3L , Mean Corpuscular Volume 86, Mean Corpuscular Hemoglobin 28.1, Mean Corpuscular Hemoglobin Concent 32.8, Red Cell Distribution Width 12.7, Platelet Count 314, Mean Platelet Volume 7.7, Neutrophils (%) (Auto) 71.0, Lymphocytes (% ) (Auto) 16.6L, Monocytes (%) (Auto) 9.4, Eosinophils (%) (Auto) 2.5, Basophils (%) (Auto) 0.7, Urine Eosinophils Rare, Sodium Level 133L, Potassium Level 4.5, Chloride Level 101, Carbon Dioxide Level 21, Anion Gap 11, Blood Urea Nitrogen 36H, Creatinine 2.6H, Estimat Glomerular Filtration Rate 22.2, Glucose Level 113H, Calcium Level 9.0 Height (Feet): 5 Height (Inches): 5.00 Weight (Pounds): 189 Objective General: alert, cooperative, no distress, appears stated age Head: normocephalic, without obvious abnormality, atraumatic Eyes: conjunctivae/corneas clear. PERRL, EOM's intact, +legal blindness b/l Throat: lips, mucosa, and tongue normal. MMM Neck: supple, symmetrical, trachea midline, and no JVD Lungs: clear to auscultation bilaterally Heart: regular rate and rhythm, S1, S2 normal, no murmur, click, rub or gallop Abdomen: soft, non-tender, non-distended, bowel sounds normal; no masses or organomegaly Extremities: extremities normal, atraumatic, no cyanosis, +BLE edema RLE in splint L foot 1st and 2nd toe w/ ecchymoses Pulses: 2+ and symmetric Skin: skin color, texture, turgor normal; no rashes or lesions Neurologic: 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, no focal deficits Celestine Stevens M.D. May 14, 2017 13:09
--- NOTE | 2017-05-14 13:09 | General Progress Note ---
Assessment/Plan Problem List: (1) Trimalleolar fracture of right ankle ICD Codes: S82.851A - Displaced trimalleolar fracture of right lower leg, initial encounter for closed fracture SNOMED: 729415837, 84014471 Qualifiers: Qualified Codes: S82.851A - Displaced trimalleolar fracture of right lower leg, initial encounter for closed fracture (2) Status post fall ICD Codes: Z91.81 - History of falling SNOMED: 664073701 (3) Uncontrolled diabetes mellitus ICD Codes: E11.65 - Type 2 diabetes mellitus with hyperglycemia SNOMED: 15628914, 177246512 (4) HTN (hypertension) ICD Codes: I10 - Essential (primary) hypertension SNOMED: 04528127 (5) Hyperkalemia ICD Codes: E87.5 - Hyperkalemia SNOMED: 80692391 (6) ZENY (acute kidney injury) ICD Codes: N17.9 - Acute kidney failure, unspecified SNOMED: 12184536 (7) Hyponatremia ICD Codes: E87.1 - Hypo-osmolality and hyponatremia SNOMED: 27451689 (8) Pre-syncope ICD Codes: R55 - Syncope and collapse SNOMED: 478884021 (9) Anemia ICD Codes: D64.9 - Anemia, unspecified SNOMED: 171076029 (10) Subungual hematoma left hallux (11) Dry blisters L hallux and L 2nd toe (12) Dry blisters L hallux and L 2nd toe Status: stable Assessment/Plan Ortho consulted, appreciate rec's s/p Open reduction and internal fixation of bimalleolar fracture of R ankle on 05/13/17 Endo consulted, appreciate rec's Januvia + Starlix per endo D/c standing novlog SSI q4h Pt refusing long acting insulin, stating she has h/o "heart arrhythmia" with it prior Renal consulted, appreciate rec's EPO per renal Hold IVFs Renal U/S reviewed TTE reviewed and pt w/ normal EF Hold home lasix, lisinopril given ZENY (unknown baseline SCr) Clonidine PRN SBP>160 GI consulted, appreciate rec's PPI Possible plan for EGD on Mon s/p 2U pRBCs on 05/11/17 s/p 1U pRBC on 05/13/17 Trend CBC Heme/onc consulted, appreciate rec's CM/SW consulted for d/c planning assistance. Pt refusing SNF. Likely d/c home w / hh +CG DME ordered HH ordered Possible d/c Sun vs Mon DVT Prophylaxis: SCD, Lovenox Code Status: Full Hospital Classification Declaration: Based on this initial evaluation, and depending on the patient's clinical course, I anticipate that this patient will require hospitalization for 2-3 days for ankle fracture, uncontrolled diabetes, anemia and close respiratory/hemodynamic monitoring. Disposition: Once the patient is stable to leave the hospital, I anticipate the patient will likely be discharged to the following environment: home with HH + CG vs SNF I spent 40 minutes on this patient's case, and 22 minutes were dedicated to counseling and/or care coordination. Discussed with patient/family, nursing staff, SW/CM, endo, surgery, renal, GI regarding clinical status, treatment course, and disposition planning. D/w son re mgmt and d/c plan Time of note may not reflect time of encounter. Subjective Date patient seen: May 14, 2017 Time patient seen: 13:09 ROS Limited/Unobtainable: No Constitutional: Reports: no symptoms HEENT: Reports: no symptoms Cardiovascular: Reports: no symptoms Respiratory: Reports: no symptoms Gastrointestinal/Abdominal: Reports: no symptoms Genitourinary: Reports: no symptoms Neurologic/Psychiatric: Reports: no symptoms Endocrine: Reports: no symptoms Hematologic/Lymphatic: Reports: no symptoms Allergies: Coded Allergies: No Known Allergies (Unverified , 05/11/17) All Systems: reviewed and negative except above Subjective No acute o/n events s/p Open reduction and internal fixation of bimalleolar fracture of R ankle today, POD#1 Hgb 9.9 this AM. Got 1U pRBC yesterday Pt doing well. Says pain controlled. Denies f/c, n/v, d/c, chest pain, SOB Worked w/ PT--stood up brielfy Refusing SNF. Wants to go home w/ HH and CG. Requesting hospital bed, wheelchair and FWW Objective Last 24 Hour Vital Signs Date Time Temp Pulse Resp B/P (MAP) Pulse Ox O2 Delivery O2 Flow Rate FiO2 05/14/17 12:52 82 162/73 05/14/17 12:00 98.5 82 20 162/73 98 Room Air 05/14/17 11:55 84 05/14/17 08:10 85 129/54 05/14/17 08:00 98.6 85 20 129/54 98 Room Air 05/14/17 07:49 84 05/14/17 04:04 98.8 75 20 122/57 99 Room Air 05/14/17 03:58 74 05/14/17 00:00 98.8 79 20 125/76 95 Room Air 05/14/17 00:00 74 05/13/17 21:46 99.9 05/13/17 20:48 165/70 05/13/17 20:00 99.8 82 16 157/87 98 Room Air 05/13/17 20:00 80 05/13/17 17:06 70 145/69 05/13/17 16:00 79 05/13/17 16:00 98.5 70 20 145/69 99 Room Air Laboratory Tests 05/14/17 03:30: White Blood Count 9.5, Red Blood Count 3.54L, Hemoglobin 9.9L, Hematocrit 30.3L , Mean Corpuscular Volume 86, Mean Corpuscular Hemoglobin 28.1, Mean Corpuscular Hemoglobin Concent 32.8, Red Cell Distribution Width 12.7, Platelet Count 314, Mean Platelet Volume 7.7, Neutrophils (%) (Auto) 71.0, Lymphocytes (% ) (Auto) 16.6L, Monocytes (%) (Auto) 9.4, Eosinophils (%) (Auto) 2.5, Basophils (%) (Auto) 0.7, Urine Eosinophils Rare, Sodium Level 133L, Potassium Level 4.5, Chloride Level 101, Carbon Dioxide Level 21, Anion Gap 11, Blood Urea Nitrogen 36H, Creatinine 2.6H, Estimat Glomerular Filtration Rate 22.2, Glucose Level 113H, Calcium Level 9.0 Height (Feet): 5 Height (Inches): 5.00 Weight (Pounds): 189 Objective General: alert, cooperative, no distress, appears stated age Head: normocephalic, without obvious abnormality, atraumatic Eyes: conjunctivae/corneas clear. PERRL, EOM's intact, +legal blindness b/l Throat: lips, mucosa, and tongue normal. MMM Neck: supple, symmetrical, trachea midline, and no JVD Lungs: clear to auscultation bilaterally Heart: regular rate and rhythm, S1, S2 normal, no murmur, click, rub or gallop Abdomen: soft, non-tender, non-distended, bowel sounds normal; no masses or organomegaly Extremities: extremities normal, atraumatic, no cyanosis, +BLE edema RLE in splint L foot 1st and 2nd toe w/ ecchymoses Pulses: 2+ and symmetric Skin: skin color, texture, turgor normal; no rashes or lesions Neurologic: 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, no focal deficits Celestine Stevens M.D. May 14, 2017 13:09
--- NOTE | 2017-05-14 13:09 | General Progress Note ---
Assessment/Plan Problem List: (1) Trimalleolar fracture of right ankle ICD Codes: S82.851A - Displaced trimalleolar fracture of right lower leg, initial encounter for closed fracture SNOMED: 204434230, 99305449 Qualifiers: Qualified Codes: S82.851A - Displaced trimalleolar fracture of right lower leg, initial encounter for closed fracture (2) Status post fall ICD Codes: Z91.81 - History of falling SNOMED: 273062472 (3) Uncontrolled diabetes mellitus ICD Codes: E11.65 - Type 2 diabetes mellitus with hyperglycemia SNOMED: 61484634, 387064971 (4) HTN (hypertension) ICD Codes: I10 - Essential (primary) hypertension SNOMED: 56616440 (5) Hyperkalemia ICD Codes: E87.5 - Hyperkalemia SNOMED: 22343784 (6) ZENY (acute kidney injury) ICD Codes: N17.9 - Acute kidney failure, unspecified SNOMED: 56630918 (7) Hyponatremia ICD Codes: E87.1 - Hypo-osmolality and hyponatremia SNOMED: 63400294 (8) Pre-syncope ICD Codes: R55 - Syncope and collapse SNOMED: 408011189 (9) Anemia ICD Codes: D64.9 - Anemia, unspecified SNOMED: 454631444 (10) Subungual hematoma left hallux (11) Dry blisters L hallux and L 2nd toe (12) Dry blisters L hallux and L 2nd toe Status: stable Assessment/Plan Ortho consulted, appreciate rec's s/p Open reduction and internal fixation of bimalleolar fracture of R ankle on 05/13/17 Endo consulted, appreciate rec's Januvia + Starlix per endo D/c standing novlog SSI q4h Pt refusing long acting insulin, stating she has h/o "heart arrhythmia" with it prior Renal consulted, appreciate rec's EPO per renal Hold IVFs Renal U/S reviewed TTE reviewed and pt w/ normal EF Hold home lasix, lisinopril given ZENY (unknown baseline SCr) Clonidine PRN SBP>160 GI consulted, appreciate rec's PPI Possible plan for EGD on Mon s/p 2U pRBCs on 05/11/17 s/p 1U pRBC on 05/13/17 Trend CBC Heme/onc consulted, appreciate rec's CM/SW consulted for d/c planning assistance. Pt refusing SNF. Likely d/c home w / hh +CG DME ordered HH ordered Possible d/c Sun vs Mon DVT Prophylaxis: SCD, Lovenox Code Status: Full Hospital Classification Declaration: Based on this initial evaluation, and depending on the patient's clinical course, I anticipate that this patient will require hospitalization for 2-3 days for ankle fracture, uncontrolled diabetes, anemia and close respiratory/hemodynamic monitoring. Disposition: Once the patient is stable to leave the hospital, I anticipate the patient will likely be discharged to the following environment: home with HH + CG vs SNF I spent 40 minutes on this patient's case, and 22 minutes were dedicated to counseling and/or care coordination. Discussed with patient/family, nursing staff, SW/CM, endo, surgery, renal, GI regarding clinical status, treatment course, and disposition planning. D/w son re mgmt and d/c plan Time of note may not reflect time of encounter. Subjective Date patient seen: May 14, 2017 Time patient seen: 13:09 ROS Limited/Unobtainable: No Constitutional: Reports: no symptoms HEENT: Reports: no symptoms Cardiovascular: Reports: no symptoms Respiratory: Reports: no symptoms Gastrointestinal/Abdominal: Reports: no symptoms Genitourinary: Reports: no symptoms Neurologic/Psychiatric: Reports: no symptoms Endocrine: Reports: no symptoms Hematologic/Lymphatic: Reports: no symptoms Allergies: Coded Allergies: No Known Allergies (Unverified , 05/11/17) All Systems: reviewed and negative except above Subjective No acute o/n events s/p Open reduction and internal fixation of bimalleolar fracture of R ankle today, POD#1 Hgb 9.9 this AM. Got 1U pRBC yesterday Pt doing well. Says pain controlled. Denies f/c, n/v, d/c, chest pain, SOB Worked w/ PT--stood up brielfy Refusing SNF. Wants to go home w/ HH and CG. Requesting hospital bed, wheelchair and FWW Objective Last 24 Hour Vital Signs Date Time Temp Pulse Resp B/P (MAP) Pulse Ox O2 Delivery O2 Flow Rate FiO2 05/14/17 12:52 82 162/73 05/14/17 12:00 98.5 82 20 162/73 98 Room Air 05/14/17 11:55 84 05/14/17 08:10 85 129/54 05/14/17 08:00 98.6 85 20 129/54 98 Room Air 05/14/17 07:49 84 05/14/17 04:04 98.8 75 20 122/57 99 Room Air 05/14/17 03:58 74 05/14/17 00:00 98.8 79 20 125/76 95 Room Air 05/14/17 00:00 74 05/13/17 21:46 99.9 05/13/17 20:48 165/70 05/13/17 20:00 99.8 82 16 157/87 98 Room Air 05/13/17 20:00 80 05/13/17 17:06 70 145/69 05/13/17 16:00 79 05/13/17 16:00 98.5 70 20 145/69 99 Room Air Laboratory Tests 05/14/17 03:30: White Blood Count 9.5, Red Blood Count 3.54L, Hemoglobin 9.9L, Hematocrit 30.3L , Mean Corpuscular Volume 86, Mean Corpuscular Hemoglobin 28.1, Mean Corpuscular Hemoglobin Concent 32.8, Red Cell Distribution Width 12.7, Platelet Count 314, Mean Platelet Volume 7.7, Neutrophils (%) (Auto) 71.0, Lymphocytes (% ) (Auto) 16.6L, Monocytes (%) (Auto) 9.4, Eosinophils (%) (Auto) 2.5, Basophils (%) (Auto) 0.7, Urine Eosinophils Rare, Sodium Level 133L, Potassium Level 4.5, Chloride Level 101, Carbon Dioxide Level 21, Anion Gap 11, Blood Urea Nitrogen 36H, Creatinine 2.6H, Estimat Glomerular Filtration Rate 22.2, Glucose Level 113H, Calcium Level 9.0 Height (Feet): 5 Height (Inches): 5.00 Weight (Pounds): 189 Objective General: alert, cooperative, no distress, appears stated age Head: normocephalic, without obvious abnormality, atraumatic Eyes: conjunctivae/corneas clear. PERRL, EOM's intact, +legal blindness b/l Throat: lips, mucosa, and tongue normal. MMM Neck: supple, symmetrical, trachea midline, and no JVD Lungs: clear to auscultation bilaterally Heart: regular rate and rhythm, S1, S2 normal, no murmur, click, rub or gallop Abdomen: soft, non-tender, non-distended, bowel sounds normal; no masses or organomegaly Extremities: extremities normal, atraumatic, no cyanosis, +BLE edema RLE in splint L foot 1st and 2nd toe w/ ecchymoses Pulses: 2+ and symmetric Skin: skin color, texture, turgor normal; no rashes or lesions Neurologic: 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, no focal deficits Celestine Stevens M.D. May 14, 2017 13:09
[2017-05-14] MEDS ORDERED: Iron Sucrose 200 MG in NS 110 ML IV ONE (13:30)
--- NOTE | 2017-05-14 15:19 | Orthopedic Progress Note ---
Orthopedic - Progress Note Subjective Symptoms: improved Objective Vital Signs Laboratory Tests Test 05/14/17 03:30 White Blood Count 9.5 K/UL (4.8-10.8) Red Blood Count 3.54 M/UL (4.20-5.40) L Hemoglobin 9.9 G/DL (12.0-16.0) L Hematocrit 30.3 % (37.0-47.0) L Mean Corpuscular Volume 86 FL (80-99) Mean Corpuscular Hemoglobin 28.1 PG (27.0-31.0) Mean Corpuscular Hemoglobin Concent 32.8 G/DL (32.0-36.0) Red Cell Distribution Width 12.7 % (11.6-14.8) Platelet Count 314 K/UL (150-450) Mean Platelet Volume 7.7 FL (6.5-10.1) Neutrophils (%) (Auto) 71.0 % (45.0-75.0) Lymphocytes (%) (Auto) 16.6 % (20.0-45.0) L Monocytes (%) (Auto) 9.4 % (1.0-10.0) Eosinophils (%) (Auto) 2.5 % (0.0-3.0) Basophils (%) (Auto) 0.7 % (0.0-2.0) Urine Eosinophils Rare Sodium Level 133 MMOL/L (136-145) L Potassium Level 4.5 MMOL/L (3.5-5.1) Chloride Level 101 MMOL/L (98-107) Carbon Dioxide Level 21 MMOL/L (21-32) Anion Gap 11 mmol/L (5-15) Blood Urea Nitrogen 36 mg/dL (7-18) H Creatinine 2.6 MG/DL (0.55-1.30) H Estimat Glomerular Filtration Rate 22.2 mL/min (>60) Glucose Level 113 MG/DL (74-106) H Calcium Level 9.0 MG/DL (8.5-10.1) Last 24 Hour Vital Signs Date Time Temp Pulse Resp B/P (MAP) Pulse Ox O2 Delivery O2 Flow Rate FiO2 05/14/17 12:52 82 162/73 05/14/17 12:00 98.5 82 20 162/73 98 Room Air 05/14/17 11:55 84 05/14/17 08:10 85 129/54 05/14/17 08:00 98.6 85 20 129/54 98 Room Air 05/14/17 07:49 84 05/14/17 04:04 98.8 75 20 122/57 99 Room Air 05/14/17 03:58 74 05/14/17 00:00 98.8 79 20 125/76 95 Room Air 05/14/17 00:00 74 05/13/17 21:46 99.9 05/13/17 20:48 165/70 05/13/17 20:00 99.8 82 16 157/87 98 Room Air 05/13/17 20:00 80 05/13/17 17:06 70 145/69 05/13/17 16:00 79 05/13/17 16:00 98.5 70 20 145/69 99 Room Air I&O Intake and Output 05/14/17 05/15/17 19:00 07:00 Intake Total 120 ml Balance 120 ml Intake Oral 120 ml Wound: clean, dry, intact Drains: none Neuro Status: other - motor function intact. some decreased sensation, likely due to local anesthetic Vascular Status: normal Additional Comments Xray excellent Assessment Post-op Diagnosis POD 1 Procedure Performed rt ankle orif Plan Plan: PT, discharge plan, other - monitor h&h. staple removal in 2 weeks. follow up outpt in 2 weeks for cast application FADUMO MCKOY May 14, 2017 15:19
--- NOTE | 2017-05-14 19:45 | Consultation ---
DATE OF CONSULTATION: 05/14/2017 CONSULTING PHYSICIAN: Hany Brown D.P.M. REQUESTING PHYSICIAN: Derrek Stevens REASON FOR CONSULTATION: Discoloration of toes, status post fall, and the presence of uncontrolled diabetes mellitus. HISTORY OF PRESENT ILLNESS: The patient is a 71-year-old female, who was admitted to [facility] on 05/14/2017 for right ankle fracture, ORIF was performed by Dr. Colón two days ago, 05/12/2017. The patient is concerned about the discoloration of her toes. She is legally blind and her children advised her that she has two toes on the left foot that are discolored. The patient is being followed by an outpatient agriculture engineer, who routinely cares for her conditions. PAST MEDICAL HISTORY: Significant for diabetes mellitus, legal blindness, hypertension, and anemia. MEDICATIONS: Per MAR. ALLERGIES: She has no known drug allergies. SOCIAL HISTORY: Noncontributory. FAMILY HISTORY: Noncontributory. REVIEW OF SYSTEMS: Reviewed.HEENT: The patient is blind. No dizziness is noted. CARDIOVASCULAR: Denies any chest pain or shortness of breath. GENITOURINARY: The patient denies any urgency, frequency, burning upon urination, or hematuria. GASTROINTESTINAL: The patient denies any diarrhea, constipation, or blood in the stool. PHYSICAL EXAMINATION: VITAL SIGNS: Temperature 98.8, pulse 75, respirations 20, blood pressure 122/57, and saturating 99% on room air. EXTREMITIES: Lower extremity physical exam, right lower extremity is in a cast. Left lower extremity is edematous. No pedal pulses are noted. Foot is warm. Cap fill time is within normal limits. DERMATOLOGICAL: There is a dry eschar noted on the left hallux and the left second toe with ecchymosis subungually underneath the left hallux. No other lesions are noted. Nails are within normal limits. NEUROLOGICAL: Protective threshold is diminished. Achilles deep tendon reflexes are 2+ on the left. No spasticity is noted. MUSCULOSKELETAL: She has 4/5 muscle strength in anterolateral and posterior muscle groups of the left lower extremity. LABORATORY DATA: White blood cell count is 9.5, hemoglobin and hematocrit is 9.9 and 30.3. Potassium 4.5, BUN is 36, and creatinine is 2.6. Hemoglobin A1c is above 16. Albumin is 1.5. C-reactive protein is 12.7. X-rays of the left foot are reviewed and negative for fractures. Right ankle x-rays reviewed noted to have a bimalleolar fracture with ankle dislocation and then open reduction noted with reduction of ankle joint and fractures with proper alignment. ASSESSMENT: 1. Dry blisters to the left hallux and left second toe. 2. Subungual hematoma, left hallux dry. 3. Edema. 4. Diabetes mellitus, uncontrolled. 5. Ankle fracture, status post open reduction and internal fixation. PLAN: 1. Arterial duplex ordered. 2. Monitor sites noted in exam. 3. Extensive chart review performed. 4. We will follow. Thank you for the courtesy of this consultation. Hany Borwn D.P.M. DR: DEENA JOB#: [id number] CC:
[2017-05-14] MEDS: Sennosides 8.6mg ORAL SCH (21:10)
[2017-05-15 00:14] VITALS: BP 130/54
[2017-05-15 05:00] VITALS: BP 114/55
[2017-05-15 05:01] LABS: BASOPHILS % (AUTO) 0.5 % (0.0-2.0); EOSINOPHILS % (AUTO) 2.6 % (0.0-3.0); HEMATOCRIT 26.6 % (37.0-47.0); HEMOGLOBIN 8.7 G/DL (12.0-16.0); LYMPHOCYTES % (AUTO) 15.4 % (20.0-45.0); MEAN CORPUSCULAR VOLUME 85 FL (80-99); MONOCYTES % (AUTO) 10.6 % (1.0-10.0); NEUTROPHILS % (AUTO) 70.8 % (45.0-75.0); PLATELET COUNT 247 K/UL (150-450); RED BLOOD COUNT 3.12 M/UL (4.20-5.40); RED CELL DISTRIBUTION WIDTH 12.4 % (11.6-14.8); WHITE BLOOD COUNT 8.4 K/UL (4.8-10.8)
[2017-05-15 05:33] LABS: ALANINE AMINOTRANSFERASE < 6 U/L (12-78); ALBUMIN 1.3 G/DL (3.4-5.0); ALBUMIN/GLOBULIN RATIO 0.3 (1.0-2.7); ALKALINE PHOSPHATASE 112 U/L (46-116); ANION GAP 8 mmol/L (5-15); ASPARTATE AMINO TRANSFERASE 11 U/L (15-37); BILIRUBIN,TOTAL 0.2 MG/DL (0.2-1.0); BLOOD UREA NITROGEN 39 mg/dL (7-18); CALCIUM 8.5 MG/DL (8.5-10.1); CARBON DIOXIDE 21 MMOL/L (21-32); CHLORIDE 100 MMOL/L (98-107); CREATININE 2.8 MG/DL (0.55-1.30); PHOSPHORUS 4.1 MG/DL (2.5-4.9); POTASSIUM 4.7 MMOL/L (3.5-5.1); SODIUM 129 MMOL/L (136-145)
[2017-05-15] MEDS: NovoLOG Insulin Flexpen SUBQ SCH ×4 (06:20→20:55)
[2017-05-15] MEDS: sitaGLIPtin 25mg tab ORAL SCH ×2 (06:21→06:23)
[2017-05-15] MEDS: Nateglinide 60mg tab ORAL SCH ×3 (06:21→16:39)
[2017-05-15 08:00] VITALS: BP 121/50
--- NOTE | 2017-05-15 08:38 | General Progress Note ---
Assessment/Plan Assessment/Plan ASSESSMENT AND RECOMMENDATION: 1. Anemia, likely related to anemia of chronic disease, workup has been reviewed , potentially 22 hemodilutioon as well --> s/p 2 units prbc earlier on admission and 1 unit prbc as well 2. Coagulopathy, potentially secondary to vitamin K --> monitor for improvement 3. Dislocation of subtalar joint. Seen by podaitry/ortho, appreciat recs. 4. Hypertension, currently better controlled. 5. Diabetes mellitus, blood sugar above 600. 6. Acute kidney injury. Kidney ultrasound reviewed. Subjective Date patient seen: May 14, 2017 HEENT: Denies: no symptoms, eye pain, blurred vision, tearing, double vision, ear pain, ear discharge, nose pain, nose congestion, throat pain, throat swelling, mouth pain, mouth swelling, other Cardiovascular: Denies: no symptoms, chest pain, edema, irregular heart rate, lightheadedness, palpitations, syncope, other Respiratory: Denies: no symptoms, cough, orthopnea, shortness of breath, SOB with excertion, SOB at rest, sputum, stridor, wheezing, other Gastrointestinal/Abdominal: Denies: no symptoms, abdomen distended, abdominal pain, black stools, tarry stools, blood in stool, constipated, diarrhea, difficulty swallowing, nausea, poor appetite, poor fluid intake, rectal bleeding , vomiting, other Genitourinary: Denies: no symptoms, burning, discharge, frequency, flank pain, hematuria, incontinence, pain, urgency, other Neurologic/Psychiatric: Denies: no symptoms, anxiety, depressed, emotional problems, headache, numbness, paresthesia, pre-existing deficit, seizure, tingling, tremors, weakness, other Endocrine: Denies: no symptoms, excessive sweating, flushing, intolerance to cold, intolerance to heat, increased hunger, increased thirst, increased urine, unexplained weight gain, unexplained weight loss, other Hematologic/Lymphatic: Denies: no symptoms, anemia, easy bleeding, easy bruising, other Allergies: Coded Allergies: No Known Allergies (Unverified , 05/11/17) Subjective confused, tired Objective Last 24 Hour Vital Signs Date Time Temp Pulse Resp B/P (MAP) Pulse Ox O2 Delivery O2 Flow Rate FiO2 05/15/17 08:00 98.2 69 20 121/50 97 05/15/17 05:00 98.7 60 20 114/55 95 Room Air 05/15/17 04:11 69 05/15/17 00:14 99.5 82 20 130/54 94 Room Air 05/14/17 23:48 75 05/14/17 19:57 100.0 79 20 151/63 98 Room Air 05/14/17 19:11 80 05/14/17 17:49 89 139/74 05/14/17 17:48 139/74 05/14/17 16:16 175/77 05/14/17 16:00 98.9 89 22 175/77 99 Room Air 05/14/17 15:31 82 05/14/17 12:52 82 162/73 05/14/17 12:00 98.5 82 20 162/73 98 Room Air 05/14/17 11:55 84 Intake and Output 05/15/17 05/16/17 19:00 07:00 Intake Total 240 ml Balance 240 ml Intake Oral 240 ml Laboratory Tests 05/15/17 03:40: White Blood Count 8.4, Red Blood Count 3.12L, Hemoglobin 8.7L, Hematocrit 26.6L , Mean Corpuscular Volume 85, Mean Corpuscular Hemoglobin 27.8, Mean Corpuscular Hemoglobin Concent 32.5, Red Cell Distribution Width 12.4, Platelet Count 247, Mean Platelet Volume 7.8, Neutrophils (%) (Auto) 70.8, Lymphocytes (% ) (Auto) 15.4L, Monocytes (%) (Auto) 10.6H, Eosinophils (%) (Auto) 2.6, Basophils (%) (Auto) 0.5, Sodium Level 129L, Potassium Level 4.7, Chloride Level 100, Carbon Dioxide Level 21, Anion Gap 8, Blood Urea Nitrogen 39H, Creatinine 2.8H, Estimat Glomerular Filtration Rate 20.4, Glucose Level 124H, Uric Acid 7.6H, Calcium Level 8.5, Phosphorus Level 4.1, Magnesium Level 1.7L, Total Bilirubin 0.2, Aspartate Amino Transf (AST/SGOT) 11L, Alanine Aminotransferase (ALT/SGPT) < 6L, Alkaline Phosphatase 112, Total Protein 5.3L, Albumin 1.3L, Globulin 4.0, Albumin/Globulin Ratio 0.3L Height (Feet): 5 Height (Inches): 5.00 Weight (Pounds): 189 General Appearance: no apparent distress EENT: TMs normal Neck: non-tender Cardiovascular: normal rate Respiratory/Chest: no respiratory distress Abdomen: soft Edema: 1+ Leg (L), 1+ Leg (R) Edema: mild edema Neurologic: alert Skin: warm/dry Lymphatic: normal anterior cervical (L), normal anterior cervical (R), normal posterior cervical (L), normal posterior cervical (R), normal submandibular (L) , normal submandibular (R), normal supraclavicular (L), normal supraclavicular ( R), normal axillary (L), normal axillary (R), normal inguinal (L), normal inguinal (R), normal other ISHAN FLETCHER May 15, 2017 08:38
[2017-05-15] MEDS: Enoxaparin 30mg Inj SUBQ SCH ×2 (08:43→20:54)
[2017-05-15] MEDS: Docusate 100mg cap ORAL SCH ×3 (08:44→18:00)
[2017-05-15] MEDS: Miralax 17gm pkt ORAL SCH (08:44)
[2017-05-15] MEDS: Carvedilol 6.25mg Tab ORAL SCH ×2 (08:44→20:53)
[2017-05-15] MEDS: oxyCONTIN 20mg tab ORAL SCH ×2 (09:00→20:55)
--- NOTE | 2017-05-15 11:39 | General Progress Note ---
Assessment/Plan Status: stable Status Narrative Na 129- Cr 2.8 Assessment/Plan status: Renal Failure- Chronic vs Acute or superimposed acute Anemia Fx ankle DM HTN Plan; Post Op day3 start Coreg and PRN Hydralazine Boyd urine studies 2D Echo- ejFx 60 Kidney JOYCELYN negative EPO One dose Venofer Subjective ROS Limited/Unobtainable: No Constitutional: Reports: malaise Allergies: Coded Allergies: No Known Allergies (Unverified , 05/11/17) Objective Last 24 Hour Vital Signs Date Time Temp Pulse Resp B/P (MAP) Pulse Ox O2 Delivery O2 Flow Rate FiO2 05/15/17 08:44 69 121/50 05/15/17 08:44 69 121/50 05/15/17 08:00 98.2 69 20 121/50 97 05/15/17 07:51 68 05/15/17 05:00 98.7 60 20 114/55 95 Room Air 05/15/17 04:11 69 05/15/17 00:14 99.5 82 20 130/54 94 Room Air 05/14/17 23:48 75 05/14/17 19:57 100.0 79 20 151/63 98 Room Air 05/14/17 19:11 80 05/14/17 17:49 89 139/74 05/14/17 17:48 139/74 05/14/17 16:16 175/77 05/14/17 16:00 98.9 89 22 175/77 99 Room Air 05/14/17 15:31 82 05/14/17 12:52 82 162/73 05/14/17 12:00 98.5 82 20 162/73 98 Room Air 05/14/17 11:55 84 Intake and Output 05/15/17 05/16/17 19:00 07:00 Intake Total 240 ml Balance 240 ml Intake Oral 240 ml Laboratory Tests 05/15/17 03:40: White Blood Count 8.4, Red Blood Count 3.12L, Hemoglobin 8.7L, Hematocrit 26.6L , Mean Corpuscular Volume 85, Mean Corpuscular Hemoglobin 27.8, Mean Corpuscular Hemoglobin Concent 32.5, Red Cell Distribution Width 12.4, Platelet Count 247, Mean Platelet Volume 7.8, Neutrophils (%) (Auto) 70.8, Lymphocytes (% ) (Auto) 15.4L, Monocytes (%) (Auto) 10.6H, Eosinophils (%) (Auto) 2.6, Basophils (%) (Auto) 0.5, Sodium Level 129L, Potassium Level 4.7, Chloride Level 100, Carbon Dioxide Level 21, Anion Gap 8, Blood Urea Nitrogen 39H, Creatinine 2.8H, Estimat Glomerular Filtration Rate 20.4, Glucose Level 124H, Uric Acid 7.6H, Calcium Level 8.5, Phosphorus Level 4.1, Magnesium Level 1.7L, Total Bilirubin 0.2, Aspartate Amino Transf (AST/SGOT) 11L, Alanine Aminotransferase (ALT/SGPT) < 6L, Alkaline Phosphatase 112, Total Protein 5.3L, Albumin 1.3L, Globulin 4.0, Albumin/Globulin Ratio 0.3L 05/15/17 09:30: Stool Occult Blood Negative Height (Feet): 5 Height (Inches): 5.00 Weight (Pounds): 189 General Appearance: no apparent distress Cardiovascular: normal rate Respiratory/Chest: decreased breath sounds Abdomen: soft Objective no signs of CHF STANLEY MIGUEL May 15, 2017 11:39
[2017-05-15 12:00] VITALS: BP 142/66
--- NOTE | 2017-05-15 15:48 | General Progress Note ---
Assessment/Plan Problem List: (1) Diabetes mellitus out of control ICD Codes: E11.65 - Type 2 diabetes mellitus with hyperglycemia SNOMED: 99650352, 368342859 (2) RIGHT ANKLE FRACTURE (3) ZENY (acute kidney injury) ICD Codes: N17.9 - Acute kidney failure, unspecified SNOMED: 39168644 (4) HLD (hyperlipidemia) ICD Codes: E78.5 - Hyperlipidemia, unspecified SNOMED: 55524848 (5) HTN (hypertension) ICD Codes: I10 - Essential (primary) hypertension SNOMED: 38109691 Assessment/Plan glucose well controlled Continue Starlix 60 mg ac tid DC Januvia 25 mg daily - she's been refusing it continue SSI Subjective Allergies: Coded Allergies: No Known Allergies (Unverified , 05/11/17) All Systems: reviewed and negative except above Subjective events noted - interval notes reviewed Objective Last 24 Hour Vital Signs Date Time Temp Pulse Resp B/P (MAP) Pulse Ox O2 Delivery O2 Flow Rate FiO2 05/15/17 12:00 97.9 77 21 142/66 97 Room Air 05/15/17 11:48 76 05/15/17 08:44 69 121/50 05/15/17 08:44 69 121/50 05/15/17 08:00 98.2 69 20 121/50 97 05/15/17 07:51 68 05/15/17 05:00 98.7 60 20 114/55 95 Room Air 05/15/17 04:11 69 05/15/17 00:14 99.5 82 20 130/54 94 Room Air 05/14/17 23:48 75 05/14/17 19:57 100.0 79 20 151/63 98 Room Air 05/14/17 19:11 80 05/14/17 17:49 89 139/74 05/14/17 17:48 139/74 05/14/17 16:16 175/77 05/14/17 16:00 98.9 89 22 175/77 99 Room Air Intake and Output 05/15/17 05/16/17 19:00 07:00 Intake Total 240 ml Balance 240 ml Intake Oral 240 ml # Bowel Movements 2 Laboratory Tests 05/15/17 03:40: White Blood Count 8.4, Red Blood Count 3.12L, Hemoglobin 8.7L, Hematocrit 26.6L , Mean Corpuscular Volume 85, Mean Corpuscular Hemoglobin 27.8, Mean Corpuscular Hemoglobin Concent 32.5, Red Cell Distribution Width 12.4, Platelet Count 247, Mean Platelet Volume 7.8, Neutrophils (%) (Auto) 70.8, Lymphocytes (% ) (Auto) 15.4L, Monocytes (%) (Auto) 10.6H, Eosinophils (%) (Auto) 2.6, Basophils (%) (Auto) 0.5, Sodium Level 129L, Potassium Level 4.7, Chloride Level 100, Carbon Dioxide Level 21, Anion Gap 8, Blood Urea Nitrogen 39H, Creatinine 2.8H, Estimat Glomerular Filtration Rate 20.4, Glucose Level 124H, Uric Acid 7.6H, Calcium Level 8.5, Phosphorus Level 4.1, Magnesium Level 1.7L, Total Bilirubin 0.2, Aspartate Amino Transf (AST/SGOT) 11L, Alanine Aminotransferase (ALT/SGPT) < 6L, Alkaline Phosphatase 112, Total Protein 5.3L, Albumin 1.3L, Globulin 4.0, Albumin/Globulin Ratio 0.3L 05/15/17 09:30: Stool Occult Blood Negative Height (Feet): 5 Height (Inches): 5.00 Weight (Pounds): 189 General Appearance: no apparent distress EENT: other - blind Neck: non-tender Cardiovascular: normal rate Respiratory/Chest: decreased breath sounds Abdomen: normal bowel sounds Edema: no edema noted Arm (L), no edema noted Arm (R), no edema noted Leg (L), no edema noted Leg (R), no edema noted Pedal (L), no edema noted Pedal (R), no edema noted Generalized Objective Current Medications Medications (Trade) Dose Ordered Sig/Andre Route PRN Reason Start Time Stop Time Status Last Admin Dose Admin Acetaminophen (Tylenol) 650 mg Q6H PRN ORAL Mild Pain/Temp > 100.5 05/13/17 07:15 06/12/17 07:14 05/15/17 03:49 Acetaminophen/ Hydrocodone Bitart ([place] 5/325) 1 tab Q4H PRN ORAL Moderate Pain (Pain Scale 4-6) 05/13/17 15:00 05/20/17 14:59 Amlodipine Besylate (Norvasc) 5 mg BID ORAL 05/13/17 18:00 06/12/17 17:59 05/15/17 08:44 Bisacodyl (Dulcolax) 10 mg DAILYPRN PRN RECTAL Constipation 05/13/17 22:30 06/12/17 22:29 Carvedilol (Coreg) 6.25 mg EVERY 12 HOURS ORAL 05/14/17 12:30 06/13/17 12:29 05/15/17 08:44 Dextrose (Dextrose 50%) STAT PRN IV Hypoglycemia 05/11/17 08:45 06/10/17 08:44 Docusate Sodium (Colace) 100 mg THREE TIMES A DAY ORAL 05/13/17 09:00 06/12/17 08:59 05/15/17 08:44 Enoxaparin Sodium (Lovenox) 30 mg EVERY 12 HOURS SUBQ 05/14/17 09:00 05/28/17 08:59 05/15/17 08:43 Epoetin Marcus (Procrit (for non ESRD use)) 10,000 units TUE- SUBQ 05/13/17 21:00 06/12/17 20:59 05/13/17 20:49 Hydralazine HCl (Apresoline) 25 mg Q4H PRN ORAL BP over 160 syst 05/14/17 12:30 06/13/17 12:29 05/14/17 16:16 Hydromorphone HCl (Dilaudid) 0.5 mg Q4H PRN SUBQ Mild Pain (Pain Scale 1-3) 05/13/17 07:15 05/20/17 07:14 Hydromorphone HCl (Dilaudid) 1 mg Q3H PRN SUBQ Moderate Pain (Pain Scale 4-6) 05/13/17 19:00 05/20/17 07:14 Insulin Aspart (NovoLOG) No Dose AC+HS SUBQ 05/14/17 11:30 06/10/17 16:29 05/15/17 12:18 Nateglinide (Starlix) 60 mg TIAC ORAL 05/14/17 11:30 06/13/17 11:29 05/15/17 12:17 Oxycodone HCl (OxyCONTIN) 20 mg EVERY 12 HOURS ORAL 05/13/17 09:00 05/20/17 08:59 05/13/17 20:49 Pantoprazole (Protonix) 40 mg DAILY ORAL 05/11/17 15:45 06/10/17 15:44 05/15/17 08:44 Polyethylene Glycol (Miralax) 17 gm DAILY ORAL 05/14/17 08:00 06/13/17 07:59 05/15/17 08:44 Sennosides (Senokot) 17.2 mg QHS ORAL 05/14/17 21:00 06/13/17 20:59 05/14/17 21:10 Sitagliptin Phosphate (Januvia) 25 mg ACBREAKFAST ORAL 05/15/17 06:30 06/14/17 06:29 Item Value Date Time Bedside Blood Glucose 139 mg/dl H 05/15/17 1218 Bedside Blood Glucose 104 mg/dl 05/15/17 0630 Bedside Blood Glucose 187 mg/dl H 05/14/172123 ELO ALVAREZ May 15, 2017 15:48
--- NOTE | 2017-05-15 15:48 | General Progress Note ---
Assessment/Plan Problem List: (1) Diabetes mellitus out of control ICD Codes: E11.65 - Type 2 diabetes mellitus with hyperglycemia SNOMED: 53986638, 140250422 (2) RIGHT ANKLE FRACTURE (3) ZENY (acute kidney injury) ICD Codes: N17.9 - Acute kidney failure, unspecified SNOMED: 00837443 (4) HLD (hyperlipidemia) ICD Codes: E78.5 - Hyperlipidemia, unspecified SNOMED: 60258595 (5) HTN (hypertension) ICD Codes: I10 - Essential (primary) hypertension SNOMED: 43983072 Assessment/Plan glucose well controlled Continue Starlix 60 mg ac tid DC Januvia 25 mg daily - she's been refusing it continue SSI Subjective Allergies: Coded Allergies: No Known Allergies (Unverified , 05/11/17) All Systems: reviewed and negative except above Subjective events noted - interval notes reviewed Objective Last 24 Hour Vital Signs Date Time Temp Pulse Resp B/P (MAP) Pulse Ox O2 Delivery O2 Flow Rate FiO2 05/15/17 12:00 97.9 77 21 142/66 97 Room Air 05/15/17 11:48 76 05/15/17 08:44 69 121/50 05/15/17 08:44 69 121/50 05/15/17 08:00 98.2 69 20 121/50 97 05/15/17 07:51 68 05/15/17 05:00 98.7 60 20 114/55 95 Room Air 05/15/17 04:11 69 05/15/17 00:14 99.5 82 20 130/54 94 Room Air 05/14/17 23:48 75 05/14/17 19:57 100.0 79 20 151/63 98 Room Air 05/14/17 19:11 80 05/14/17 17:49 89 139/74 05/14/17 17:48 139/74 05/14/17 16:16 175/77 05/14/17 16:00 98.9 89 22 175/77 99 Room Air Intake and Output 05/15/17 05/16/17 19:00 07:00 Intake Total 240 ml Balance 240 ml Intake Oral 240 ml # Bowel Movements 2 Laboratory Tests 05/15/17 03:40: White Blood Count 8.4, Red Blood Count 3.12L, Hemoglobin 8.7L, Hematocrit 26.6L , Mean Corpuscular Volume 85, Mean Corpuscular Hemoglobin 27.8, Mean Corpuscular Hemoglobin Concent 32.5, Red Cell Distribution Width 12.4, Platelet Count 247, Mean Platelet Volume 7.8, Neutrophils (%) (Auto) 70.8, Lymphocytes (% ) (Auto) 15.4L, Monocytes (%) (Auto) 10.6H, Eosinophils (%) (Auto) 2.6, Basophils (%) (Auto) 0.5, Sodium Level 129L, Potassium Level 4.7, Chloride Level 100, Carbon Dioxide Level 21, Anion Gap 8, Blood Urea Nitrogen 39H, Creatinine 2.8H, Estimat Glomerular Filtration Rate 20.4, Glucose Level 124H, Uric Acid 7.6H, Calcium Level 8.5, Phosphorus Level 4.1, Magnesium Level 1.7L, Total Bilirubin 0.2, Aspartate Amino Transf (AST/SGOT) 11L, Alanine Aminotransferase (ALT/SGPT) < 6L, Alkaline Phosphatase 112, Total Protein 5.3L, Albumin 1.3L, Globulin 4.0, Albumin/Globulin Ratio 0.3L 05/15/17 09:30: Stool Occult Blood Negative Height (Feet): 5 Height (Inches): 5.00 Weight (Pounds): 189 General Appearance: no apparent distress EENT: other - blind Neck: non-tender Cardiovascular: normal rate Respiratory/Chest: decreased breath sounds Abdomen: normal bowel sounds Edema: no edema noted Arm (L), no edema noted Arm (R), no edema noted Leg (L), no edema noted Leg (R), no edema noted Pedal (L), no edema noted Pedal (R), no edema noted Generalized Objective Current Medications Medications (Trade) Dose Ordered Sig/Andre Route PRN Reason Start Time Stop Time Status Last Admin Dose Admin Acetaminophen (Tylenol) 650 mg Q6H PRN ORAL Mild Pain/Temp > 100.5 05/13/17 07:15 06/12/17 07:14 05/15/17 03:49 Acetaminophen/ Hydrocodone Bitart ([place] 5/325) 1 tab Q4H PRN ORAL Moderate Pain (Pain Scale 4-6) 05/13/17 15:00 05/20/17 14:59 Amlodipine Besylate (Norvasc) 5 mg BID ORAL 05/13/17 18:00 06/12/17 17:59 05/15/17 08:44 Bisacodyl (Dulcolax) 10 mg DAILYPRN PRN RECTAL Constipation 05/13/17 22:30 06/12/17 22:29 Carvedilol (Coreg) 6.25 mg EVERY 12 HOURS ORAL 05/14/17 12:30 06/13/17 12:29 05/15/17 08:44 Dextrose (Dextrose 50%) STAT PRN IV Hypoglycemia 05/11/17 08:45 06/10/17 08:44 Docusate Sodium (Colace) 100 mg THREE TIMES A DAY ORAL 05/13/17 09:00 06/12/17 08:59 05/15/17 08:44 Enoxaparin Sodium (Lovenox) 30 mg EVERY 12 HOURS SUBQ 05/14/17 09:00 05/28/17 08:59 05/15/17 08:43 Epoetin Marcus (Procrit (for non ESRD use)) 10,000 units TUE- SUBQ 05/13/17 21:00 06/12/17 20:59 05/13/17 20:49 Hydralazine HCl (Apresoline) 25 mg Q4H PRN ORAL BP over 160 syst 05/14/17 12:30 06/13/17 12:29 05/14/17 16:16 Hydromorphone HCl (Dilaudid) 0.5 mg Q4H PRN SUBQ Mild Pain (Pain Scale 1-3) 05/13/17 07:15 05/20/17 07:14 Hydromorphone HCl (Dilaudid) 1 mg Q3H PRN SUBQ Moderate Pain (Pain Scale 4-6) 05/13/17 19:00 05/20/17 07:14 Insulin Aspart (NovoLOG) No Dose AC+HS SUBQ 05/14/17 11:30 06/10/17 16:29 05/15/17 12:18 Nateglinide (Starlix) 60 mg TIAC ORAL 05/14/17 11:30 06/13/17 11:29 05/15/17 12:17 Oxycodone HCl (OxyCONTIN) 20 mg EVERY 12 HOURS ORAL 05/13/17 09:00 05/20/17 08:59 05/13/17 20:49 Pantoprazole (Protonix) 40 mg DAILY ORAL 05/11/17 15:45 06/10/17 15:44 05/15/17 08:44 Polyethylene Glycol (Miralax) 17 gm DAILY ORAL 05/14/17 08:00 06/13/17 07:59 05/15/17 08:44 Sennosides (Senokot) 17.2 mg QHS ORAL 05/14/17 21:00 06/13/17 20:59 05/14/17 21:10 Sitagliptin Phosphate (Januvia) 25 mg ACBREAKFAST ORAL 05/15/17 06:30 06/14/17 06:29 Item Value Date Time Bedside Blood Glucose 139 mg/dl H 05/15/17 1218 Bedside Blood Glucose 104 mg/dl 05/15/17 0630 Bedside Blood Glucose 187 mg/dl H 05/14/172123 ELO ALVAREZ May 15, 2017 15:48
--- NOTE | 2017-05-15 15:48 | General Progress Note ---
Assessment/Plan Problem List: (1) Diabetes mellitus out of control ICD Codes: E11.65 - Type 2 diabetes mellitus with hyperglycemia SNOMED: 04119398, 916486355 (2) RIGHT ANKLE FRACTURE (3) ZENY (acute kidney injury) ICD Codes: N17.9 - Acute kidney failure, unspecified SNOMED: 12076583 (4) HLD (hyperlipidemia) ICD Codes: E78.5 - Hyperlipidemia, unspecified SNOMED: 80271123 (5) HTN (hypertension) ICD Codes: I10 - Essential (primary) hypertension SNOMED: 27041507 Assessment/Plan glucose well controlled Continue Starlix 60 mg ac tid DC Januvia 25 mg daily - she's been refusing it continue SSI Subjective Allergies: Coded Allergies: No Known Allergies (Unverified , 05/11/17) All Systems: reviewed and negative except above Subjective events noted - interval notes reviewed Objective Last 24 Hour Vital Signs Date Time Temp Pulse Resp B/P (MAP) Pulse Ox O2 Delivery O2 Flow Rate FiO2 05/15/17 12:00 97.9 77 21 142/66 97 Room Air 05/15/17 11:48 76 05/15/17 08:44 69 121/50 05/15/17 08:44 69 121/50 05/15/17 08:00 98.2 69 20 121/50 97 05/15/17 07:51 68 05/15/17 05:00 98.7 60 20 114/55 95 Room Air 05/15/17 04:11 69 05/15/17 00:14 99.5 82 20 130/54 94 Room Air 05/14/17 23:48 75 05/14/17 19:57 100.0 79 20 151/63 98 Room Air 05/14/17 19:11 80 05/14/17 17:49 89 139/74 05/14/17 17:48 139/74 05/14/17 16:16 175/77 05/14/17 16:00 98.9 89 22 175/77 99 Room Air Intake and Output 05/15/17 05/16/17 19:00 07:00 Intake Total 240 ml Balance 240 ml Intake Oral 240 ml # Bowel Movements 2 Laboratory Tests 05/15/17 03:40: White Blood Count 8.4, Red Blood Count 3.12L, Hemoglobin 8.7L, Hematocrit 26.6L , Mean Corpuscular Volume 85, Mean Corpuscular Hemoglobin 27.8, Mean Corpuscular Hemoglobin Concent 32.5, Red Cell Distribution Width 12.4, Platelet Count 247, Mean Platelet Volume 7.8, Neutrophils (%) (Auto) 70.8, Lymphocytes (% ) (Auto) 15.4L, Monocytes (%) (Auto) 10.6H, Eosinophils (%) (Auto) 2.6, Basophils (%) (Auto) 0.5, Sodium Level 129L, Potassium Level 4.7, Chloride Level 100, Carbon Dioxide Level 21, Anion Gap 8, Blood Urea Nitrogen 39H, Creatinine 2.8H, Estimat Glomerular Filtration Rate 20.4, Glucose Level 124H, Uric Acid 7.6H, Calcium Level 8.5, Phosphorus Level 4.1, Magnesium Level 1.7L, Total Bilirubin 0.2, Aspartate Amino Transf (AST/SGOT) 11L, Alanine Aminotransferase (ALT/SGPT) < 6L, Alkaline Phosphatase 112, Total Protein 5.3L, Albumin 1.3L, Globulin 4.0, Albumin/Globulin Ratio 0.3L 05/15/17 09:30: Stool Occult Blood Negative Height (Feet): 5 Height (Inches): 5.00 Weight (Pounds): 189 General Appearance: no apparent distress EENT: other - blind Neck: non-tender Cardiovascular: normal rate Respiratory/Chest: decreased breath sounds Abdomen: normal bowel sounds Edema: no edema noted Arm (L), no edema noted Arm (R), no edema noted Leg (L), no edema noted Leg (R), no edema noted Pedal (L), no edema noted Pedal (R), no edema noted Generalized Objective Current Medications Medications (Trade) Dose Ordered Sig/Andre Route PRN Reason Start Time Stop Time Status Last Admin Dose Admin Acetaminophen (Tylenol) 650 mg Q6H PRN ORAL Mild Pain/Temp > 100.5 05/13/17 07:15 06/12/17 07:14 05/15/17 03:49 Acetaminophen/ Hydrocodone Bitart ([place] 5/325) 1 tab Q4H PRN ORAL Moderate Pain (Pain Scale 4-6) 05/13/17 15:00 05/20/17 14:59 Amlodipine Besylate (Norvasc) 5 mg BID ORAL 05/13/17 18:00 06/12/17 17:59 05/15/17 08:44 Bisacodyl (Dulcolax) 10 mg DAILYPRN PRN RECTAL Constipation 05/13/17 22:30 06/12/17 22:29 Carvedilol (Coreg) 6.25 mg EVERY 12 HOURS ORAL 05/14/17 12:30 06/13/17 12:29 05/15/17 08:44 Dextrose (Dextrose 50%) STAT PRN IV Hypoglycemia 05/11/17 08:45 06/10/17 08:44 Docusate Sodium (Colace) 100 mg THREE TIMES A DAY ORAL 05/13/17 09:00 06/12/17 08:59 05/15/17 08:44 Enoxaparin Sodium (Lovenox) 30 mg EVERY 12 HOURS SUBQ 05/14/17 09:00 05/28/17 08:59 05/15/17 08:43 Epoetin Marcus (Procrit (for non ESRD use)) 10,000 units TUE- SUBQ 05/13/17 21:00 06/12/17 20:59 05/13/17 20:49 Hydralazine HCl (Apresoline) 25 mg Q4H PRN ORAL BP over 160 syst 05/14/17 12:30 06/13/17 12:29 05/14/17 16:16 Hydromorphone HCl (Dilaudid) 0.5 mg Q4H PRN SUBQ Mild Pain (Pain Scale 1-3) 05/13/17 07:15 05/20/17 07:14 Hydromorphone HCl (Dilaudid) 1 mg Q3H PRN SUBQ Moderate Pain (Pain Scale 4-6) 05/13/17 19:00 05/20/17 07:14 Insulin Aspart (NovoLOG) No Dose AC+HS SUBQ 05/14/17 11:30 06/10/17 16:29 05/15/17 12:18 Nateglinide (Starlix) 60 mg TIAC ORAL 05/14/17 11:30 06/13/17 11:29 05/15/17 12:17 Oxycodone HCl (OxyCONTIN) 20 mg EVERY 12 HOURS ORAL 05/13/17 09:00 05/20/17 08:59 05/13/17 20:49 Pantoprazole (Protonix) 40 mg DAILY ORAL 05/11/17 15:45 06/10/17 15:44 05/15/17 08:44 Polyethylene Glycol (Miralax) 17 gm DAILY ORAL 05/14/17 08:00 06/13/17 07:59 05/15/17 08:44 Sennosides (Senokot) 17.2 mg QHS ORAL 05/14/17 21:00 06/13/17 20:59 05/14/17 21:10 Sitagliptin Phosphate (Januvia) 25 mg ACBREAKFAST ORAL 05/15/17 06:30 06/14/17 06:29 Item Value Date Time Bedside Blood Glucose 139 mg/dl H 05/15/17 1218 Bedside Blood Glucose 104 mg/dl 05/15/17 0630 Bedside Blood Glucose 187 mg/dl H 05/14/172123 ELO ALVAREZ May 15, 2017 15:48
[2017-05-15 16:00] VITALS: BP 127/56
--- NOTE | 2017-05-15 16:09 | General Progress Note ---
Assessment/Plan Problem List: (1) Trimalleolar fracture of right ankle ICD Codes: S82.851A - Displaced trimalleolar fracture of right lower leg, initial encounter for closed fracture SNOMED: 817276572, 86980061 Qualifiers: Qualified Codes: S82.851A - Displaced trimalleolar fracture of right lower leg, initial encounter for closed fracture (2) Status post fall ICD Codes: Z91.81 - History of falling SNOMED: 509428432 (3) Uncontrolled diabetes mellitus ICD Codes: E11.65 - Type 2 diabetes mellitus with hyperglycemia SNOMED: 58635137, 541227969 (4) HTN (hypertension) ICD Codes: I10 - Essential (primary) hypertension SNOMED: 49373199 (5) Hyperkalemia ICD Codes: E87.5 - Hyperkalemia SNOMED: 31031789 (6) ZENY (acute kidney injury) ICD Codes: N17.9 - Acute kidney failure, unspecified SNOMED: 69895045 (7) Hyponatremia ICD Codes: E87.1 - Hypo-osmolality and hyponatremia SNOMED: 17487873 (8) Pre-syncope ICD Codes: R55 - Syncope and collapse SNOMED: 387650755 (9) Anemia ICD Codes: D64.9 - Anemia, unspecified SNOMED: 836731671 (10) Subungual hematoma left hallux (11) Dry blisters L hallux and L 2nd toe (12) Dry blisters L hallux and L 2nd toe Status: stable Assessment/Plan Ortho consulted, appreciate rec's s/p Open reduction and internal fixation of bimalleolar fracture of R ankle on 05/13/17 Endo consulted, appreciate rec's Cont Starlix per endo Pt refusing januvia D/c standing novlog SSI q4h Pt refusing long acting insulin, stating she has h/o "heart arrhythmia" with it prior Renal consulted, appreciate rec's EPO per renal Hold IVFs Renal U/S reviewed TTE reviewed and pt w/ normal EF Hold home lasix, lisinopril given ZENY (unknown baseline SCr) Clonidine PRN SBP>160 GI consulted, appreciate rec's PPI Possible plan for EGD on Mon s/p 2U pRBCs on 05/11/17 s/p 1U pRBC on 05/13/17 Trend CBC Heme/onc consulted, appreciate rec's CM/SW consulted for d/c planning assistance. Pt refusing SNF. Likely d/c home w / hh +CG DME ordered HH ordered Pt now amenable to SNF. SW/BRENNEN consulted for placement to rehab facility DC planning likely Mon if cleared by ortho DVT Prophylaxis: SCD, Lovenox Code Status: Full Hospital Classification Declaration: Based on this initial evaluation, and depending on the patient's clinical course, I anticipate that this patient will require hospitalization for 2-3 days for ankle fracture, uncontrolled diabetes, anemia and close respiratory/hemodynamic monitoring. Disposition: Once the patient is stable to leave the hospital, I anticipate the patient will likely be discharged to the following environment: home with HH + CG vs SNF I spent 40 minutes on this patient's case, and 22 minutes were dedicated to counseling and/or care coordination. Discussed with patient/family, nursing staff, SW/CM, endo, surgery, renal, GI regarding clinical status, treatment course, and disposition planning. D/w pt extensively regarding SNF/rehab Time of note may not reflect time of encounter. Subjective Date patient seen: May 15, 2017 Time patient seen: 16:09 ROS Limited/Unobtainable: No Constitutional: Reports: no symptoms HEENT: Reports: no symptoms Cardiovascular: Reports: no symptoms Respiratory: Reports: no symptoms Gastrointestinal/Abdominal: Reports: no symptoms Genitourinary: Reports: no symptoms Neurologic/Psychiatric: Reports: no symptoms Endocrine: Reports: no symptoms Hematologic/Lymphatic: Reports: no symptoms Allergies: Coded Allergies: No Known Allergies (Unverified , 05/11/17) All Systems: reviewed and negative except above Subjective No acute o/n events s/p Open reduction and internal fixation of bimalleolar fracture of R ankle on 05/13, POD#2 Hgb down to 8.7 this AM Pt doing well. Says pain controlled. Denies f/c, n/v, d/c, chest pain, SOB Working w/ PT/OT Pt now amenable to SNF. Requests a SNF in this area Objective Last 24 Hour Vital Signs Date Time Temp Pulse Resp B/P (MAP) Pulse Ox O2 Delivery O2 Flow Rate FiO2 05/15/17 12:00 97.9 77 21 142/66 97 Room Air 05/15/17 11:48 76 05/15/17 08:44 69 121/50 05/15/17 08:44 69 121/50 10/22/17 08:00 98.2 69 20 121/50 97 05/15/17 07:51 68 05/15/17 05:00 98.7 60 20 114/55 95 Room Air 05/15/17 04:11 69 05/15/17 00:14 99.5 82 20 130/54 94 Room Air 05/14/17 23:48 75 05/14/17 19:57 100.0 79 20 151/63 98 Room Air 05/14/17 19:11 80 05/14/17 17:49 89 139/74 05/14/17 17:48 139/74 05/14/17 16:16 175/77 Intake and Output 05/15/17 05/16/17 19:00 07:00 Intake Total 240 ml Balance 240 ml Intake Oral 240 ml # Bowel Movements 2 Laboratory Tests 05/15/17 03:40: White Blood Count 8.4, Red Blood Count 3.12L, Hemoglobin 8.7L, Hematocrit 26.6L , Mean Corpuscular Volume 85, Mean Corpuscular Hemoglobin 27.8, Mean Corpuscular Hemoglobin Concent 32.5, Red Cell Distribution Width 12.4, Platelet Count 247, Mean Platelet Volume 7.8, Neutrophils (%) (Auto) 70.8, Lymphocytes (% ) (Auto) 15.4L, Monocytes (%) (Auto) 10.6H, Eosinophils (%) (Auto) 2.6, Basophils (%) (Auto) 0.5, Sodium Level 129L, Potassium Level 4.7, Chloride Level 100, Carbon Dioxide Level 21, Anion Gap 8, Blood Urea Nitrogen 39H, Creatinine 2.8H, Estimat Glomerular Filtration Rate 20.4, Glucose Level 124H, Uric Acid 7.6H, Calcium Level 8.5, Phosphorus Level 4.1, Magnesium Level 1.7L, Total Bilirubin 0.2, Aspartate Amino Transf (AST/SGOT) 11L, Alanine Aminotransferase (ALT/SGPT) < 6L, Alkaline Phosphatase 112, Total Protein 5.3L, Albumin 1.3L, Globulin 4.0, Albumin/Globulin Ratio 0.3L 05/15/17 09:30: Stool Occult Blood Negative Height (Feet): 5 Height (Inches): 5.00 Weight (Pounds): 189 Objective General: alert, cooperative, no distress, appears stated age Head: normocephalic, without obvious abnormality, atraumatic Eyes: conjunctivae/corneas clear. PERRL, EOM's intact, +legal blindness b/l Throat: lips, mucosa, and tongue normal. MMM Neck: supple, symmetrical, trachea midline, and no JVD Lungs: clear to auscultation bilaterally Heart: regular rate and rhythm, S1, S2 normal, no murmur, click, rub or gallop Abdomen: soft, non-tender, non-distended, bowel sounds normal; no masses or organomegaly Extremities: extremities normal, atraumatic, no cyanosis, +BLE edema RLE in splint L foot 1st and 2nd toe w/ ecchymoses Pulses: 2+ and symmetric Skin: skin color, texture, turgor normal; no rashes or lesions Neurologic: 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, no focal deficits Celestine Stevens M.D. May 15, 2017 16:09
--- NOTE | 2017-05-15 16:09 | General Progress Note ---
Assessment/Plan Problem List: (1) Trimalleolar fracture of right ankle ICD Codes: S82.851A - Displaced trimalleolar fracture of right lower leg, initial encounter for closed fracture SNOMED: 061929752, 05708665 Qualifiers: Qualified Codes: S82.851A - Displaced trimalleolar fracture of right lower leg, initial encounter for closed fracture (2) Status post fall ICD Codes: Z91.81 - History of falling SNOMED: 749937571 (3) Uncontrolled diabetes mellitus ICD Codes: E11.65 - Type 2 diabetes mellitus with hyperglycemia SNOMED: 51679131, 652740519 (4) HTN (hypertension) ICD Codes: I10 - Essential (primary) hypertension SNOMED: 63675576 (5) Hyperkalemia ICD Codes: E87.5 - Hyperkalemia SNOMED: 72193069 (6) ZENY (acute kidney injury) ICD Codes: N17.9 - Acute kidney failure, unspecified SNOMED: 60013031 (7) Hyponatremia ICD Codes: E87.1 - Hypo-osmolality and hyponatremia SNOMED: 09727005 (8) Pre-syncope ICD Codes: R55 - Syncope and collapse SNOMED: 946766319 (9) Anemia ICD Codes: D64.9 - Anemia, unspecified SNOMED: 255729128 (10) Subungual hematoma left hallux (11) Dry blisters L hallux and L 2nd toe (12) Dry blisters L hallux and L 2nd toe Status: stable Assessment/Plan Ortho consulted, appreciate rec's s/p Open reduction and internal fixation of bimalleolar fracture of R ankle on 05/13/17 Endo consulted, appreciate rec's Cont Starlix per endo Pt refusing januvia D/c standing novlog SSI q4h Pt refusing long acting insulin, stating she has h/o "heart arrhythmia" with it prior Renal consulted, appreciate rec's EPO per renal Hold IVFs Renal U/S reviewed TTE reviewed and pt w/ normal EF Hold home lasix, lisinopril given ZENY (unknown baseline SCr) Clonidine PRN SBP>160 GI consulted, appreciate rec's PPI Possible plan for EGD on Mon s/p 2U pRBCs on 05/11/17 s/p 1U pRBC on 05/13/17 Trend CBC Heme/onc consulted, appreciate rec's CM/SW consulted for d/c planning assistance. Pt refusing SNF. Likely d/c home w / hh +CG DME ordered HH ordered Pt now amenable to SNF. SW/BRENNEN consulted for placement to rehab facility DC planning likely Mon if cleared by ortho DVT Prophylaxis: SCD, Lovenox Code Status: Full Hospital Classification Declaration: Based on this initial evaluation, and depending on the patient's clinical course, I anticipate that this patient will require hospitalization for 2-3 days for ankle fracture, uncontrolled diabetes, anemia and close respiratory/hemodynamic monitoring. Disposition: Once the patient is stable to leave the hospital, I anticipate the patient will likely be discharged to the following environment: home with HH + CG vs SNF I spent 40 minutes on this patient's case, and 22 minutes were dedicated to counseling and/or care coordination. Discussed with patient/family, nursing staff, SW/CM, endo, surgery, renal, GI regarding clinical status, treatment course, and disposition planning. D/w pt extensively regarding SNF/rehab Time of note may not reflect time of encounter. Subjective Date patient seen: May 15, 2017 Time patient seen: 16:09 ROS Limited/Unobtainable: No Constitutional: Reports: no symptoms HEENT: Reports: no symptoms Cardiovascular: Reports: no symptoms Respiratory: Reports: no symptoms Gastrointestinal/Abdominal: Reports: no symptoms Genitourinary: Reports: no symptoms Neurologic/Psychiatric: Reports: no symptoms Endocrine: Reports: no symptoms Hematologic/Lymphatic: Reports: no symptoms Allergies: Coded Allergies: No Known Allergies (Unverified , 05/11/17) All Systems: reviewed and negative except above Subjective No acute o/n events s/p Open reduction and internal fixation of bimalleolar fracture of R ankle on 05/13, POD#2 Hgb down to 8.7 this AM Pt doing well. Says pain controlled. Denies f/c, n/v, d/c, chest pain, SOB Working w/ PT/OT Pt now amenable to SNF. Requests a SNF in this area Objective Last 24 Hour Vital Signs Date Time Temp Pulse Resp B/P (MAP) Pulse Ox O2 Delivery O2 Flow Rate FiO2 05/15/17 12:00 97.9 77 21 142/66 97 Room Air 05/15/17 11:48 76 05/15/17 08:44 69 121/50 05/15/17 08:44 69 121/50 10/22/17 08:00 98.2 69 20 121/50 97 05/15/17 07:51 68 05/15/17 05:00 98.7 60 20 114/55 95 Room Air 05/15/17 04:11 69 05/15/17 00:14 99.5 82 20 130/54 94 Room Air 05/14/17 23:48 75 05/14/17 19:57 100.0 79 20 151/63 98 Room Air 05/14/17 19:11 80 05/14/17 17:49 89 139/74 05/14/17 17:48 139/74 05/14/17 16:16 175/77 Intake and Output 05/15/17 05/16/17 19:00 07:00 Intake Total 240 ml Balance 240 ml Intake Oral 240 ml # Bowel Movements 2 Laboratory Tests 05/15/17 03:40: White Blood Count 8.4, Red Blood Count 3.12L, Hemoglobin 8.7L, Hematocrit 26.6L , Mean Corpuscular Volume 85, Mean Corpuscular Hemoglobin 27.8, Mean Corpuscular Hemoglobin Concent 32.5, Red Cell Distribution Width 12.4, Platelet Count 247, Mean Platelet Volume 7.8, Neutrophils (%) (Auto) 70.8, Lymphocytes (% ) (Auto) 15.4L, Monocytes (%) (Auto) 10.6H, Eosinophils (%) (Auto) 2.6, Basophils (%) (Auto) 0.5, Sodium Level 129L, Potassium Level 4.7, Chloride Level 100, Carbon Dioxide Level 21, Anion Gap 8, Blood Urea Nitrogen 39H, Creatinine 2.8H, Estimat Glomerular Filtration Rate 20.4, Glucose Level 124H, Uric Acid 7.6H, Calcium Level 8.5, Phosphorus Level 4.1, Magnesium Level 1.7L, Total Bilirubin 0.2, Aspartate Amino Transf (AST/SGOT) 11L, Alanine Aminotransferase (ALT/SGPT) < 6L, Alkaline Phosphatase 112, Total Protein 5.3L, Albumin 1.3L, Globulin 4.0, Albumin/Globulin Ratio 0.3L 05/15/17 09:30: Stool Occult Blood Negative Height (Feet): 5 Height (Inches): 5.00 Weight (Pounds): 189 Objective General: alert, cooperative, no distress, appears stated age Head: normocephalic, without obvious abnormality, atraumatic Eyes: conjunctivae/corneas clear. PERRL, EOM's intact, +legal blindness b/l Throat: lips, mucosa, and tongue normal. MMM Neck: supple, symmetrical, trachea midline, and no JVD Lungs: clear to auscultation bilaterally Heart: regular rate and rhythm, S1, S2 normal, no murmur, click, rub or gallop Abdomen: soft, non-tender, non-distended, bowel sounds normal; no masses or organomegaly Extremities: extremities normal, atraumatic, no cyanosis, +BLE edema RLE in splint L foot 1st and 2nd toe w/ ecchymoses Pulses: 2+ and symmetric Skin: skin color, texture, turgor normal; no rashes or lesions Neurologic: 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, no focal deficits Celestine Stevens M.D. May 15, 2017 16:09
--- NOTE | 2017-05-15 16:09 | General Progress Note ---
Assessment/Plan Problem List: (1) Trimalleolar fracture of right ankle ICD Codes: S82.851A - Displaced trimalleolar fracture of right lower leg, initial encounter for closed fracture SNOMED: 060366893, 10411733 Qualifiers: Qualified Codes: S82.851A - Displaced trimalleolar fracture of right lower leg, initial encounter for closed fracture (2) Status post fall ICD Codes: Z91.81 - History of falling SNOMED: 509843283 (3) Uncontrolled diabetes mellitus ICD Codes: E11.65 - Type 2 diabetes mellitus with hyperglycemia SNOMED: 78555497, 125913597 (4) HTN (hypertension) ICD Codes: I10 - Essential (primary) hypertension SNOMED: 51358884 (5) Hyperkalemia ICD Codes: E87.5 - Hyperkalemia SNOMED: 06948734 (6) ZENY (acute kidney injury) ICD Codes: N17.9 - Acute kidney failure, unspecified SNOMED: 33351014 (7) Hyponatremia ICD Codes: E87.1 - Hypo-osmolality and hyponatremia SNOMED: 05957022 (8) Pre-syncope ICD Codes: R55 - Syncope and collapse SNOMED: 400460748 (9) Anemia ICD Codes: D64.9 - Anemia, unspecified SNOMED: 468418022 (10) Subungual hematoma left hallux (11) Dry blisters L hallux and L 2nd toe (12) Dry blisters L hallux and L 2nd toe Status: stable Assessment/Plan Ortho consulted, appreciate rec's s/p Open reduction and internal fixation of bimalleolar fracture of R ankle on 05/13/17 Endo consulted, appreciate rec's Cont Starlix per endo Pt refusing januvia D/c standing novlog SSI q4h Pt refusing long acting insulin, stating she has h/o "heart arrhythmia" with it prior Renal consulted, appreciate rec's EPO per renal Hold IVFs Renal U/S reviewed TTE reviewed and pt w/ normal EF Hold home lasix, lisinopril given ZENY (unknown baseline SCr) Clonidine PRN SBP>160 GI consulted, appreciate rec's PPI Possible plan for EGD on Mon s/p 2U pRBCs on 05/11/17 s/p 1U pRBC on 05/13/17 Trend CBC Heme/onc consulted, appreciate rec's CM/SW consulted for d/c planning assistance. Pt refusing SNF. Likely d/c home w / hh +CG DME ordered HH ordered Pt now amenable to SNF. SW/BRENNEN consulted for placement to rehab facility DC planning likely Mon if cleared by ortho DVT Prophylaxis: SCD, Lovenox Code Status: Full Hospital Classification Declaration: Based on this initial evaluation, and depending on the patient's clinical course, I anticipate that this patient will require hospitalization for 2-3 days for ankle fracture, uncontrolled diabetes, anemia and close respiratory/hemodynamic monitoring. Disposition: Once the patient is stable to leave the hospital, I anticipate the patient will likely be discharged to the following environment: home with HH + CG vs SNF I spent 40 minutes on this patient's case, and 22 minutes were dedicated to counseling and/or care coordination. Discussed with patient/family, nursing staff, SW/CM, endo, surgery, renal, GI regarding clinical status, treatment course, and disposition planning. D/w pt extensively regarding SNF/rehab Time of note may not reflect time of encounter. Subjective Date patient seen: May 15, 2017 Time patient seen: 16:09 ROS Limited/Unobtainable: No Constitutional: Reports: no symptoms HEENT: Reports: no symptoms Cardiovascular: Reports: no symptoms Respiratory: Reports: no symptoms Gastrointestinal/Abdominal: Reports: no symptoms Genitourinary: Reports: no symptoms Neurologic/Psychiatric: Reports: no symptoms Endocrine: Reports: no symptoms Hematologic/Lymphatic: Reports: no symptoms Allergies: Coded Allergies: No Known Allergies (Unverified , 05/11/17) All Systems: reviewed and negative except above Subjective No acute o/n events s/p Open reduction and internal fixation of bimalleolar fracture of R ankle on 05/13, POD#2 Hgb down to 8.7 this AM Pt doing well. Says pain controlled. Denies f/c, n/v, d/c, chest pain, SOB Working w/ PT/OT Pt now amenable to SNF. Requests a SNF in this area Objective Last 24 Hour Vital Signs Date Time Temp Pulse Resp B/P (MAP) Pulse Ox O2 Delivery O2 Flow Rate FiO2 05/15/17 12:00 97.9 77 21 142/66 97 Room Air 05/15/17 11:48 76 05/15/17 08:44 69 121/50 05/15/17 08:44 69 121/50 10/22/17 08:00 98.2 69 20 121/50 97 05/15/17 07:51 68 05/15/17 05:00 98.7 60 20 114/55 95 Room Air 05/15/17 04:11 69 05/15/17 00:14 99.5 82 20 130/54 94 Room Air 05/14/17 23:48 75 05/14/17 19:57 100.0 79 20 151/63 98 Room Air 05/14/17 19:11 80 05/14/17 17:49 89 139/74 05/14/17 17:48 139/74 05/14/17 16:16 175/77 Intake and Output 05/15/17 05/16/17 19:00 07:00 Intake Total 240 ml Balance 240 ml Intake Oral 240 ml # Bowel Movements 2 Laboratory Tests 05/15/17 03:40: White Blood Count 8.4, Red Blood Count 3.12L, Hemoglobin 8.7L, Hematocrit 26.6L , Mean Corpuscular Volume 85, Mean Corpuscular Hemoglobin 27.8, Mean Corpuscular Hemoglobin Concent 32.5, Red Cell Distribution Width 12.4, Platelet Count 247, Mean Platelet Volume 7.8, Neutrophils (%) (Auto) 70.8, Lymphocytes (% ) (Auto) 15.4L, Monocytes (%) (Auto) 10.6H, Eosinophils (%) (Auto) 2.6, Basophils (%) (Auto) 0.5, Sodium Level 129L, Potassium Level 4.7, Chloride Level 100, Carbon Dioxide Level 21, Anion Gap 8, Blood Urea Nitrogen 39H, Creatinine 2.8H, Estimat Glomerular Filtration Rate 20.4, Glucose Level 124H, Uric Acid 7.6H, Calcium Level 8.5, Phosphorus Level 4.1, Magnesium Level 1.7L, Total Bilirubin 0.2, Aspartate Amino Transf (AST/SGOT) 11L, Alanine Aminotransferase (ALT/SGPT) < 6L, Alkaline Phosphatase 112, Total Protein 5.3L, Albumin 1.3L, Globulin 4.0, Albumin/Globulin Ratio 0.3L 05/15/17 09:30: Stool Occult Blood Negative Height (Feet): 5 Height (Inches): 5.00 Weight (Pounds): 189 Objective General: alert, cooperative, no distress, appears stated age Head: normocephalic, without obvious abnormality, atraumatic Eyes: conjunctivae/corneas clear. PERRL, EOM's intact, +legal blindness b/l Throat: lips, mucosa, and tongue normal. MMM Neck: supple, symmetrical, trachea midline, and no JVD Lungs: clear to auscultation bilaterally Heart: regular rate and rhythm, S1, S2 normal, no murmur, click, rub or gallop Abdomen: soft, non-tender, non-distended, bowel sounds normal; no masses or organomegaly Extremities: extremities normal, atraumatic, no cyanosis, +BLE edema RLE in splint L foot 1st and 2nd toe w/ ecchymoses Pulses: 2+ and symmetric Skin: skin color, texture, turgor normal; no rashes or lesions Neurologic: 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, no focal deficits Celestine Stevens M.D. May 15, 2017 16:09
[2017-05-15 20:00] VITALS: BP 122/51
[2017-05-15] MEDS: Sennosides 8.6mg ORAL SCH ×2 (20:53→21:00)
--- NOTE | 2017-05-15 22:18 | General Progress Note ---
Assessment/Plan Assessment/Plan ASSESSMENT AND RECOMMENDATION: 1. Anemia, likely related to anemia of chronic disease, workup has been reviewed , potentially 2/2 hemodilutioon as well --> s/p 2 units prbc earlier on admission and 1 unit prbc as well --> continue to trend HH daily 2. Coagulopathy, potentially secondary to vitamin K --> monitor for improvement 3. Dislocation of subtalar joint. Seen by podaitry/ortho, appreciat recs. 4. Hypertension, currently better controlled. 5. Diabetes mellitus, blood sugar above 600. 6. Acute kidney injury. Kidney ultrasound reviewed. Subjective Constitutional: Reports: no symptoms HEENT: Reports: no symptoms Cardiovascular: Reports: no symptoms Respiratory: Reports: no symptoms Gastrointestinal/Abdominal: Reports: no symptoms Genitourinary: Reports: no symptoms Neurologic/Psychiatric: Reports: no symptoms Endocrine: Reports: no symptoms Hematologic/Lymphatic: Reports: no symptoms Allergies: Coded Allergies: No Known Allergies (Unverified , 05/11/17) Subjective no events, stable Objective Last 24 Hour Vital Signs Date Time Temp Pulse Resp B/P (MAP) Pulse Ox O2 Delivery O2 Flow Rate FiO2 05/15/17 20:53 64 125/51 05/15/17 20:00 98.5 64 20 122/51 100 Room Air 05/15/17 18:08 67 127/56 05/15/17 16:00 98.5 67 22 127/56 98 Room Air 05/15/17 15:41 68 05/15/17 12:00 97.9 77 21 142/66 97 Room Air 05/15/17 11:48 76 05/15/17 08:44 69 121/50 05/15/17 08:44 69 121/50 05/15/17 08:00 98.2 69 20 121/50 97 05/15/17 07:51 68 05/15/17 05:00 98.7 60 20 114/55 95 Room Air 05/15/17 04:11 69 05/15/17 00:14 99.5 82 20 130/54 94 Room Air 05/14/17 23:48 75 Intake and Output 05/15/17 05/16/17 19:00 07:00 Intake Total 240 ml 100 ml Balance 240 ml 100 ml Intake Oral 240 ml IV Total 100 ml # Bowel Movements 2 Laboratory Tests 05/15/17 03:40: White Blood Count 8.4, Red Blood Count 3.12L, Hemoglobin 8.7L, Hematocrit 26.6L , Mean Corpuscular Volume 85, Mean Corpuscular Hemoglobin 27.8, Mean Corpuscular Hemoglobin Concent 32.5, Red Cell Distribution Width 12.4, Platelet Count 247, Mean Platelet Volume 7.8, Neutrophils (%) (Auto) 70.8, Lymphocytes (% ) (Auto) 15.4L, Monocytes (%) (Auto) 10.6H, Eosinophils (%) (Auto) 2.6, Basophils (%) (Auto) 0.5, Sodium Level 129L, Potassium Level 4.7, Chloride Level 100, Carbon Dioxide Level 21, Anion Gap 8, Blood Urea Nitrogen 39H, Creatinine 2.8H, Estimat Glomerular Filtration Rate 20.4, Glucose Level 124H, Uric Acid 7.6H, Calcium Level 8.5, Phosphorus Level 4.1, Magnesium Level 1.7L, Total Bilirubin 0.2, Aspartate Amino Transf (AST/SGOT) 11L, Alanine Aminotransferase (ALT/SGPT) < 6L, Alkaline Phosphatase 112, Total Protein 5.3L, Albumin 1.3L, Globulin 4.0, Albumin/Globulin Ratio 0.3L 05/15/17 09:30: Stool Occult Blood Negative Height (Feet): 5 Height (Inches): 5.00 Weight (Pounds): 189 General Appearance: no apparent distress EENT: normal ENT inspection Neck: normal alignment Cardiovascular: normal rate Extremities: non-tender Skin: warm/dry ISHAN FLETCHER May 15, 2017 22:18
[2017-05-16 00:26] VITALS: BP 151/66
[2017-05-16 04:00] VITALS: BP 135/60
[2017-05-16 05:19] LABS: BASOPHILS % (AUTO) 0.7 % (0.0-2.0); EOSINOPHILS % (AUTO) 3.3 % (0.0-3.0); HEMATOCRIT 26.1 % (37.0-47.0); HEMOGLOBIN 8.5 G/DL (12.0-16.0); LYMPHOCYTES % (AUTO) 16.6 % (20.0-45.0); MEAN CORPUSCULAR VOLUME 86 FL (80-99); MONOCYTES % (AUTO) 9.2 % (1.0-10.0); NEUTROPHILS % (AUTO) 70.2 % (45.0-75.0); PLATELET COUNT 268 K/UL (150-450); RED BLOOD COUNT 3.05 M/UL (4.20-5.40); RED CELL DISTRIBUTION WIDTH 12.6 % (11.6-14.8); WHITE BLOOD COUNT 8.2 K/UL (4.8-10.8)
[2017-05-16] MEDS ORDERED: NORVASC5 MG ORAL (05:44)
[2017-05-16] MEDS ORDERED: OXYCONTIN20 MG ORAL (05:44)
[2017-05-16] MEDS ORDERED: NORCO 5-325 TA1 EACH ORAL (05:44)
[2017-05-16] MEDS ORDERED: NOVOLOG100 UNITS1 SUBQ (05:44)
[2017-05-16] MEDS ORDERED: SENNA-GEN8.6 M1 ORAL (05:44)
[2017-05-16] MEDS ORDERED: HYDRALAZINE HCL25 M1 ORAL (05:44)
[2017-05-16] MEDS ORDERED: COLACE100 MG ORAL (05:44)
[2017-05-16] MEDS ORDERED: PROCRIT20000 UNI2 SUBQ (05:44)
[2017-05-16] MEDS ORDERED: MIRALAX17 G2 ORAL (05:44)
[2017-05-16] MEDS ORDERED: STARLIX60 MG ORAL (05:44)
[2017-05-16] MEDS ORDERED: PROTONIX40 MG ORAL (05:44)
[2017-05-16] MEDS ORDERED: COREG6.25 MG ORAL (05:44)
[2017-05-16 06:16] LABS: ALANINE AMINOTRANSFERASE < 6 U/L (12-78); ALBUMIN 1.2 G/DL (3.4-5.0); ALBUMIN/GLOBULIN RATIO 0.3 (1.0-2.7); ALKALINE PHOSPHATASE 131 U/L (46-116); ANION GAP 8 mmol/L (5-15); ASPARTATE AMINO TRANSFERASE 12 U/L (15-37); BILIRUBIN,TOTAL 0.2 MG/DL (0.2-1.0); BLOOD UREA NITROGEN 43 mg/dL (7-18); CALCIUM 8.6 MG/DL (8.5-10.1); CARBON DIOXIDE 21 MMOL/L (21-32); CHLORIDE 100 MMOL/L (98-107); CHOLESTEROL 131 MG/DL (< 200); CREATININE 3.1 MG/DL (0.55-1.30); HDL CHOLESTEROL 37 MG/DL (40-60); PHOSPHORUS 4.4 MG/DL (2.5-4.9); SODIUM 129 MMOL/L (136-145); TRIGLYCERIDES 98 MG/DL (0-200)
[2017-05-16] MEDS: Nateglinide 60mg tab ORAL SCH ×3 (06:38→16:42)
[2017-05-16] MEDS: NovoLOG Insulin Flexpen SUBQ SCH ×3 (06:39→16:44)
[2017-05-16 08:00] VITALS: BP 137/61
--- NOTE | 2017-05-16 08:21 | General Progress Note ---
Assessment/Plan Problem List: (1) Diabetes mellitus out of control ICD Codes: E11.65 - Type 2 diabetes mellitus with hyperglycemia SNOMED: 95843286, 914143043 (2) RIGHT ANKLE FRACTURE (3) ZENY (acute kidney injury) ICD Codes: N17.9 - Acute kidney failure, unspecified SNOMED: 60276891 (4) HLD (hyperlipidemia) ICD Codes: E78.5 - Hyperlipidemia, unspecified SNOMED: 28887136 (5) HTN (hypertension) ICD Codes: I10 - Essential (primary) hypertension SNOMED: 76931310 Assessment/Plan glucose well controlled Continue Starlix 60 mg ac tid continue SSI TSH is mildly elevated w/o hx of hypothyroidism this is most likely due to sick euthyroid repeat TSH, free T4 in one week Subjective Allergies: Coded Allergies: No Known Allergies (Unverified , 05/11/17) All Systems: reviewed and negative except above Subjective events noted - interval notes reviewed Objective Last 24 Hour Vital Signs Date Time Temp Pulse Resp B/P (MAP) Pulse Ox O2 Delivery O2 Flow Rate FiO2 05/16/17 07:41 98.2 05/16/17 04:00 98.2 66 20 135/60 97 Room Air 05/16/17 04:00 65 05/16/17 00:26 98.5 75 20 151/66 96 Room Air 05/16/17 00:00 69 05/15/17 20:53 64 125/51 05/15/17 20:00 66 05/15/17 20:00 98.5 64 20 122/51 100 Room Air 05/15/17 18:08 67 127/56 05/15/17 16:00 98.5 67 22 127/56 98 Room Air 05/15/17 15:41 68 05/15/17 12:00 97.9 77 21 142/66 97 Room Air 05/15/17 11:48 76 05/15/17 08:44 69 121/50 05/15/17 08:44 69 121/50 Laboratory Tests 05/15/17 09:30: Stool Occult Blood Negative 05/16/17 03:35: White Blood Count 8.2, Red Blood Count 3.05L, Hemoglobin 8.5L, Hematocrit 26.1L , Mean Corpuscular Volume 86, Mean Corpuscular Hemoglobin 27.7, Mean Corpuscular Hemoglobin Concent 32.4, Red Cell Distribution Width 12.6, Platelet Count 268, Mean Platelet Volume 7.5, Neutrophils (%) (Auto) 70.2, Lymphocytes (% ) (Auto) 16.6L, Monocytes (%) (Auto) 9.2, Eosinophils (%) (Auto) 3.3H, Basophils (%) (Auto) 0.7, Sodium Level 129L, Potassium Level 5.0, Chloride Level 100, Carbon Dioxide Level 21, Anion Gap 8, Blood Urea Nitrogen 43H, Creatinine 3.1H, Estimat Glomerular Filtration Rate 18.1, Glucose Level 118H, Osmolality 284L, Uric Acid 7.5H, Calcium Level 8.6, Phosphorus Level 4.4, Magnesium Level 2.0, Total Bilirubin 0.2, Aspartate Amino Transf (AST/SGOT) 12L , Alanine Aminotransferase (ALT/SGPT) < 6L, Alkaline Phosphatase 131H, C- Reactive Protein, Quantitative 22.0H, Pro-B-Type Natriuretic Peptide 4187H, Total Protein 5.6L, Albumin 1.2L, Globulin 4.4, Albumin/Globulin Ratio 0.3L, Triglycerides Level 98, Cholesterol Level 131, LDL Cholesterol 83, HDL Cholesterol 37L, Cholesterol/HDL Ratio 3.5, Thyroid Stimulating Hormone (TSH) 4.443H Height (Feet): 5 Height (Inches): 5.00 Weight (Pounds): 189 General Appearance: no apparent distress EENT: other - blind Neck: normal alignment Cardiovascular: normal rate Respiratory/Chest: decreased breath sounds Abdomen: normal bowel sounds Objective Current Medications Medications (Trade) Dose Ordered Sig/Andre Route PRN Reason Start Time Stop Time Status Last Admin Dose Admin Acetaminophen (Tylenol) 650 mg Q6H PRN ORAL Mild Pain/Temp > 100.5 05/13/17 07:15 06/12/17 07:14 05/16/17 06:42 Acetaminophen/ Hydrocodone Bitart ([place] 5/325) 1 tab Q4H PRN ORAL Moderate Pain (Pain Scale 4-6) 05/13/17 15:00 05/20/17 14:59 Amlodipine Besylate (Norvasc) 5 mg BID ORAL 05/13/17 18:00 06/12/17 17:59 05/15/17 18:08 Bisacodyl (Dulcolax) 10 mg DAILYPRN PRN RECTAL Constipation 05/13/17 22:30 06/12/17 22:29 Carvedilol (Coreg) 6.25 mg EVERY 12 HOURS ORAL 05/14/17 12:30 06/13/17 12:29 05/15/17 20:53 Dextrose (Dextrose 50%) STAT PRN IV Hypoglycemia 05/11/17 08:45 06/10/17 08:44 Docusate Sodium (Colace) 100 mg THREE TIMES A DAY ORAL 05/13/17 09:00 06/12/17 08:59 05/15/17 08:44 Enoxaparin Sodium (Lovenox) 30 mg EVERY 12 HOURS SUBQ 05/14/17 09:00 05/28/17 08:59 05/15/17 20:54 Epoetin Marcus (Procrit (for non ESRD use)) 10,000 units TUE- SUBQ 05/13/17 21:00 06/12/17 20:59 05/13/17 20:49 Hydralazine HCl (Apresoline) 25 mg Q4H PRN ORAL BP over 160 syst 05/14/17 12:30 06/13/17 12:29 05/14/17 16:16 Hydromorphone HCl (Dilaudid) 0.5 mg Q4H PRN SUBQ Mild Pain (Pain Scale 1-3) 05/13/17 07:15 05/20/17 07:14 Hydromorphone HCl (Dilaudid) 1 mg Q3H PRN SUBQ Moderate Pain (Pain Scale 4-6) 05/13/17 19:00 05/20/17 07:14 Insulin Aspart (NovoLOG) No Dose AC+HS SUBQ 05/14/17 11:30 06/10/17 16:29 05/16/17 06:39 Nateglinide (Starlix) 60 mg TIAC ORAL 05/14/17 11:30 06/13/17 11:29 05/16/17 06:38 Oxycodone HCl (OxyCONTIN) 20 mg EVERY 12 HOURS ORAL 05/13/17 09:00 05/20/17 08:59 05/13/17 20:49 Pantoprazole (Protonix) 40 mg DAILY ORAL 05/11/17 15:45 06/10/17 15:44 05/15/17 08:44 Polyethylene Glycol (Miralax) 17 gm DAILY ORAL 05/14/17 08:00 06/13/17 07:59 05/15/17 08:44 Sennosides (Senokot) 17.2 mg QHS ORAL 05/14/17 21:00 06/13/17 20:59 05/14/17 21:10 Item Value Date Time Bedside Blood Glucose 134 mg/dl H 05/16/17 0701 Bedside Blood Glucose 131 mg/dl H 05/16/17 0639 Bedside Blood Glucose 110 mg/dl 05/15/17 2100 Bedside Blood Glucose 159 mg/dl H 05/15/17 1640 Bedside Blood Glucose 139 mg/dl H 05/15/17 1218 ELO ALVAREZ May 16, 2017 08:21
--- NOTE | 2017-05-16 08:21 | General Progress Note ---
Assessment/Plan Problem List: (1) Diabetes mellitus out of control ICD Codes: E11.65 - Type 2 diabetes mellitus with hyperglycemia SNOMED: 87769167, 459373165 (2) RIGHT ANKLE FRACTURE (3) ZENY (acute kidney injury) ICD Codes: N17.9 - Acute kidney failure, unspecified SNOMED: 53207145 (4) HLD (hyperlipidemia) ICD Codes: E78.5 - Hyperlipidemia, unspecified SNOMED: 41283349 (5) HTN (hypertension) ICD Codes: I10 - Essential (primary) hypertension SNOMED: 38110250 Assessment/Plan glucose well controlled Continue Starlix 60 mg ac tid continue SSI TSH is mildly elevated w/o hx of hypothyroidism this is most likely due to sick euthyroid repeat TSH, free T4 in one week Subjective Allergies: Coded Allergies: No Known Allergies (Unverified , 05/11/17) All Systems: reviewed and negative except above Subjective events noted - interval notes reviewed Objective Last 24 Hour Vital Signs Date Time Temp Pulse Resp B/P (MAP) Pulse Ox O2 Delivery O2 Flow Rate FiO2 05/16/17 07:41 98.2 05/16/17 04:00 98.2 66 20 135/60 97 Room Air 05/16/17 04:00 65 05/16/17 00:26 98.5 75 20 151/66 96 Room Air 05/16/17 00:00 69 05/15/17 20:53 64 125/51 05/15/17 20:00 66 05/15/17 20:00 98.5 64 20 122/51 100 Room Air 05/15/17 18:08 67 127/56 05/15/17 16:00 98.5 67 22 127/56 98 Room Air 05/15/17 15:41 68 05/15/17 12:00 97.9 77 21 142/66 97 Room Air 05/15/17 11:48 76 05/15/17 08:44 69 121/50 05/15/17 08:44 69 121/50 Laboratory Tests 05/15/17 09:30: Stool Occult Blood Negative 05/16/17 03:35: White Blood Count 8.2, Red Blood Count 3.05L, Hemoglobin 8.5L, Hematocrit 26.1L , Mean Corpuscular Volume 86, Mean Corpuscular Hemoglobin 27.7, Mean Corpuscular Hemoglobin Concent 32.4, Red Cell Distribution Width 12.6, Platelet Count 268, Mean Platelet Volume 7.5, Neutrophils (%) (Auto) 70.2, Lymphocytes (% ) (Auto) 16.6L, Monocytes (%) (Auto) 9.2, Eosinophils (%) (Auto) 3.3H, Basophils (%) (Auto) 0.7, Sodium Level 129L, Potassium Level 5.0, Chloride Level 100, Carbon Dioxide Level 21, Anion Gap 8, Blood Urea Nitrogen 43H, Creatinine 3.1H, Estimat Glomerular Filtration Rate 18.1, Glucose Level 118H, Osmolality 284L, Uric Acid 7.5H, Calcium Level 8.6, Phosphorus Level 4.4, Magnesium Level 2.0, Total Bilirubin 0.2, Aspartate Amino Transf (AST/SGOT) 12L , Alanine Aminotransferase (ALT/SGPT) < 6L, Alkaline Phosphatase 131H, C- Reactive Protein, Quantitative 22.0H, Pro-B-Type Natriuretic Peptide 4187H, Total Protein 5.6L, Albumin 1.2L, Globulin 4.4, Albumin/Globulin Ratio 0.3L, Triglycerides Level 98, Cholesterol Level 131, LDL Cholesterol 83, HDL Cholesterol 37L, Cholesterol/HDL Ratio 3.5, Thyroid Stimulating Hormone (TSH) 4.443H Height (Feet): 5 Height (Inches): 5.00 Weight (Pounds): 189 General Appearance: no apparent distress EENT: other - blind Neck: normal alignment Cardiovascular: normal rate Respiratory/Chest: decreased breath sounds Abdomen: normal bowel sounds Objective Current Medications Medications (Trade) Dose Ordered Sig/Andre Route PRN Reason Start Time Stop Time Status Last Admin Dose Admin Acetaminophen (Tylenol) 650 mg Q6H PRN ORAL Mild Pain/Temp > 100.5 05/13/17 07:15 06/12/17 07:14 05/16/17 06:42 Acetaminophen/ Hydrocodone Bitart ([place] 5/325) 1 tab Q4H PRN ORAL Moderate Pain (Pain Scale 4-6) 05/13/17 15:00 05/20/17 14:59 Amlodipine Besylate (Norvasc) 5 mg BID ORAL 05/13/17 18:00 06/12/17 17:59 05/15/17 18:08 Bisacodyl (Dulcolax) 10 mg DAILYPRN PRN RECTAL Constipation 05/13/17 22:30 06/12/17 22:29 Carvedilol (Coreg) 6.25 mg EVERY 12 HOURS ORAL 05/14/17 12:30 06/13/17 12:29 05/15/17 20:53 Dextrose (Dextrose 50%) STAT PRN IV Hypoglycemia 05/11/17 08:45 06/10/17 08:44 Docusate Sodium (Colace) 100 mg THREE TIMES A DAY ORAL 05/13/17 09:00 06/12/17 08:59 05/15/17 08:44 Enoxaparin Sodium (Lovenox) 30 mg EVERY 12 HOURS SUBQ 05/14/17 09:00 05/28/17 08:59 05/15/17 20:54 Epoetin Marcus (Procrit (for non ESRD use)) 10,000 units TUE- SUBQ 05/13/17 21:00 06/12/17 20:59 05/13/17 20:49 Hydralazine HCl (Apresoline) 25 mg Q4H PRN ORAL BP over 160 syst 05/14/17 12:30 06/13/17 12:29 05/14/17 16:16 Hydromorphone HCl (Dilaudid) 0.5 mg Q4H PRN SUBQ Mild Pain (Pain Scale 1-3) 05/13/17 07:15 05/20/17 07:14 Hydromorphone HCl (Dilaudid) 1 mg Q3H PRN SUBQ Moderate Pain (Pain Scale 4-6) 05/13/17 19:00 05/20/17 07:14 Insulin Aspart (NovoLOG) No Dose AC+HS SUBQ 05/14/17 11:30 06/10/17 16:29 05/16/17 06:39 Nateglinide (Starlix) 60 mg TIAC ORAL 05/14/17 11:30 06/13/17 11:29 05/16/17 06:38 Oxycodone HCl (OxyCONTIN) 20 mg EVERY 12 HOURS ORAL 05/13/17 09:00 05/20/17 08:59 05/13/17 20:49 Pantoprazole (Protonix) 40 mg DAILY ORAL 05/11/17 15:45 06/10/17 15:44 05/15/17 08:44 Polyethylene Glycol (Miralax) 17 gm DAILY ORAL 05/14/17 08:00 06/13/17 07:59 05/15/17 08:44 Sennosides (Senokot) 17.2 mg QHS ORAL 05/14/17 21:00 06/13/17 20:59 05/14/17 21:10 Item Value Date Time Bedside Blood Glucose 134 mg/dl H 05/16/17 0701 Bedside Blood Glucose 131 mg/dl H 05/16/17 0639 Bedside Blood Glucose 110 mg/dl 05/15/17 2100 Bedside Blood Glucose 159 mg/dl H 05/15/17 1640 Bedside Blood Glucose 139 mg/dl H 05/15/17 1218 ELO ALVAREZ May 16, 2017 08:21
--- NOTE | 2017-05-16 08:21 | General Progress Note ---
Assessment/Plan Problem List: (1) Diabetes mellitus out of control ICD Codes: E11.65 - Type 2 diabetes mellitus with hyperglycemia SNOMED: 65981064, 688151797 (2) RIGHT ANKLE FRACTURE (3) ZENY (acute kidney injury) ICD Codes: N17.9 - Acute kidney failure, unspecified SNOMED: 59166020 (4) HLD (hyperlipidemia) ICD Codes: E78.5 - Hyperlipidemia, unspecified SNOMED: 61436240 (5) HTN (hypertension) ICD Codes: I10 - Essential (primary) hypertension SNOMED: 79077707 Assessment/Plan glucose well controlled Continue Starlix 60 mg ac tid continue SSI TSH is mildly elevated w/o hx of hypothyroidism this is most likely due to sick euthyroid repeat TSH, free T4 in one week Subjective Allergies: Coded Allergies: No Known Allergies (Unverified , 05/11/17) All Systems: reviewed and negative except above Subjective events noted - interval notes reviewed Objective Last 24 Hour Vital Signs Date Time Temp Pulse Resp B/P (MAP) Pulse Ox O2 Delivery O2 Flow Rate FiO2 05/16/17 07:41 98.2 05/16/17 04:00 98.2 66 20 135/60 97 Room Air 05/16/17 04:00 65 05/16/17 00:26 98.5 75 20 151/66 96 Room Air 05/16/17 00:00 69 05/15/17 20:53 64 125/51 05/15/17 20:00 66 05/15/17 20:00 98.5 64 20 122/51 100 Room Air 05/15/17 18:08 67 127/56 05/15/17 16:00 98.5 67 22 127/56 98 Room Air 05/15/17 15:41 68 05/15/17 12:00 97.9 77 21 142/66 97 Room Air 05/15/17 11:48 76 05/15/17 08:44 69 121/50 05/15/17 08:44 69 121/50 Laboratory Tests 05/15/17 09:30: Stool Occult Blood Negative 05/16/17 03:35: White Blood Count 8.2, Red Blood Count 3.05L, Hemoglobin 8.5L, Hematocrit 26.1L , Mean Corpuscular Volume 86, Mean Corpuscular Hemoglobin 27.7, Mean Corpuscular Hemoglobin Concent 32.4, Red Cell Distribution Width 12.6, Platelet Count 268, Mean Platelet Volume 7.5, Neutrophils (%) (Auto) 70.2, Lymphocytes (% ) (Auto) 16.6L, Monocytes (%) (Auto) 9.2, Eosinophils (%) (Auto) 3.3H, Basophils (%) (Auto) 0.7, Sodium Level 129L, Potassium Level 5.0, Chloride Level 100, Carbon Dioxide Level 21, Anion Gap 8, Blood Urea Nitrogen 43H, Creatinine 3.1H, Estimat Glomerular Filtration Rate 18.1, Glucose Level 118H, Osmolality 284L, Uric Acid 7.5H, Calcium Level 8.6, Phosphorus Level 4.4, Magnesium Level 2.0, Total Bilirubin 0.2, Aspartate Amino Transf (AST/SGOT) 12L , Alanine Aminotransferase (ALT/SGPT) < 6L, Alkaline Phosphatase 131H, C- Reactive Protein, Quantitative 22.0H, Pro-B-Type Natriuretic Peptide 4187H, Total Protein 5.6L, Albumin 1.2L, Globulin 4.4, Albumin/Globulin Ratio 0.3L, Triglycerides Level 98, Cholesterol Level 131, LDL Cholesterol 83, HDL Cholesterol 37L, Cholesterol/HDL Ratio 3.5, Thyroid Stimulating Hormone (TSH) 4.443H Height (Feet): 5 Height (Inches): 5.00 Weight (Pounds): 189 General Appearance: no apparent distress EENT: other - blind Neck: normal alignment Cardiovascular: normal rate Respiratory/Chest: decreased breath sounds Abdomen: normal bowel sounds Objective Current Medications Medications (Trade) Dose Ordered Sig/Andre Route PRN Reason Start Time Stop Time Status Last Admin Dose Admin Acetaminophen (Tylenol) 650 mg Q6H PRN ORAL Mild Pain/Temp > 100.5 05/13/17 07:15 06/12/17 07:14 05/16/17 06:42 Acetaminophen/ Hydrocodone Bitart ([place] 5/325) 1 tab Q4H PRN ORAL Moderate Pain (Pain Scale 4-6) 05/13/17 15:00 05/20/17 14:59 Amlodipine Besylate (Norvasc) 5 mg BID ORAL 05/13/17 18:00 06/12/17 17:59 05/15/17 18:08 Bisacodyl (Dulcolax) 10 mg DAILYPRN PRN RECTAL Constipation 05/13/17 22:30 06/12/17 22:29 Carvedilol (Coreg) 6.25 mg EVERY 12 HOURS ORAL 05/14/17 12:30 06/13/17 12:29 05/15/17 20:53 Dextrose (Dextrose 50%) STAT PRN IV Hypoglycemia 05/11/17 08:45 06/10/17 08:44 Docusate Sodium (Colace) 100 mg THREE TIMES A DAY ORAL 05/13/17 09:00 06/12/17 08:59 05/15/17 08:44 Enoxaparin Sodium (Lovenox) 30 mg EVERY 12 HOURS SUBQ 05/14/17 09:00 05/28/17 08:59 05/15/17 20:54 Epoetin Marcus (Procrit (for non ESRD use)) 10,000 units TUE- SUBQ 05/13/17 21:00 06/12/17 20:59 05/13/17 20:49 Hydralazine HCl (Apresoline) 25 mg Q4H PRN ORAL BP over 160 syst 05/14/17 12:30 06/13/17 12:29 05/14/17 16:16 Hydromorphone HCl (Dilaudid) 0.5 mg Q4H PRN SUBQ Mild Pain (Pain Scale 1-3) 05/13/17 07:15 05/20/17 07:14 Hydromorphone HCl (Dilaudid) 1 mg Q3H PRN SUBQ Moderate Pain (Pain Scale 4-6) 05/13/17 19:00 05/20/17 07:14 Insulin Aspart (NovoLOG) No Dose AC+HS SUBQ 05/14/17 11:30 06/10/17 16:29 05/16/17 06:39 Nateglinide (Starlix) 60 mg TIAC ORAL 05/14/17 11:30 06/13/17 11:29 05/16/17 06:38 Oxycodone HCl (OxyCONTIN) 20 mg EVERY 12 HOURS ORAL 05/13/17 09:00 05/20/17 08:59 05/13/17 20:49 Pantoprazole (Protonix) 40 mg DAILY ORAL 05/11/17 15:45 06/10/17 15:44 05/15/17 08:44 Polyethylene Glycol (Miralax) 17 gm DAILY ORAL 05/14/17 08:00 06/13/17 07:59 05/15/17 08:44 Sennosides (Senokot) 17.2 mg QHS ORAL 05/14/17 21:00 06/13/17 20:59 05/14/17 21:10 Item Value Date Time Bedside Blood Glucose 134 mg/dl H 05/16/17 0701 Bedside Blood Glucose 131 mg/dl H 05/16/17 0639 Bedside Blood Glucose 110 mg/dl 05/15/17 2100 Bedside Blood Glucose 159 mg/dl H 05/15/17 1640 Bedside Blood Glucose 139 mg/dl H 05/15/17 1218 ELO ALVAREZ May 16, 2017 08:21
[2017-05-16] MEDS: oxyCONTIN 20mg tab ORAL SCH (09:00)
[2017-05-16] MEDS: Enoxaparin 30mg Inj SUBQ SCH ×2 (09:00→10:31)
[2017-05-16] MEDS: Miralax 17gm pkt ORAL SCH (09:32)
[2017-05-16] MEDS: Docusate 100mg cap ORAL SCH ×3 (09:32→18:08)
[2017-05-16] MEDS: Carvedilol 6.25mg Tab ORAL SCH (09:33)
--- NOTE | 2017-05-16 10:27 | General Progress Note ---
Assessment/Plan Status: unchanged Status Narrative Cr 3.1 Assessment/Plan status: Renal Failure- MOSTLY CHRONIC Acute or superimposed acute Anemia Fx ankle DM HTN Plan; Post Op day4 start Coreg and PRN Hydralazine Boyd urine studies 2D Echo- ejFx 60 Kidney JOYCELYN negative EPO One dose Venofer OK to DC but fu labs and renal parameters regularly Avoid nephrotoxics Subjective ROS Limited/Unobtainable: No Constitutional: Reports: malaise, weakness Allergies: Coded Allergies: No Known Allergies (Unverified , 05/11/17) Objective Last 24 Hour Vital Signs Date Time Temp Pulse Resp B/P (MAP) Pulse Ox O2 Delivery O2 Flow Rate FiO2 05/16/17 09:33 67 137/61 05/16/17 09:32 67 137/61 05/16/17 08:00 98.9 66 21 137/61 98 Room Air 05/16/17 08:00 67 05/16/17 07:41 98.2 05/16/17 04:00 98.2 66 20 135/60 97 Room Air 05/16/17 04:00 65 05/16/17 00:26 98.5 75 20 151/66 96 Room Air 05/16/17 00:00 69 05/15/17 20:53 64 125/51 05/15/17 20:00 66 05/15/17 20:00 98.5 64 20 122/51 100 Room Air 05/15/17 18:08 67 127/56 05/15/17 16:00 98.5 67 22 127/56 98 Room Air 05/15/17 15:41 68 05/15/17 12:00 97.9 77 21 142/66 97 Room Air 05/15/17 11:48 76 Laboratory Tests 05/16/17 03:35: White Blood Count 8.2, Red Blood Count 3.05L, Hemoglobin 8.5L, Hematocrit 26.1L , Mean Corpuscular Volume 86, Mean Corpuscular Hemoglobin 27.7, Mean Corpuscular Hemoglobin Concent 32.4, Red Cell Distribution Width 12.6, Platelet Count 268, Mean Platelet Volume 7.5, Neutrophils (%) (Auto) 70.2, Lymphocytes (% ) (Auto) 16.6L, Monocytes (%) (Auto) 9.2, Eosinophils (%) (Auto) 3.3H, Basophils (%) (Auto) 0.7, Sodium Level 129L, Potassium Level 5.0, Chloride Level 100, Carbon Dioxide Level 21, Anion Gap 8, Blood Urea Nitrogen 43H, Creatinine 3.1H, Estimat Glomerular Filtration Rate 18.1, Glucose Level 118H, Osmolality 284L, Uric Acid 7.5H, Calcium Level 8.6, Phosphorus Level 4.4, Magnesium Level 2.0, Total Bilirubin 0.2, Aspartate Amino Transf (AST/SGOT) 12L , Alanine Aminotransferase (ALT/SGPT) < 6L, Alkaline Phosphatase 131H, C- Reactive Protein, Quantitative 22.0H, Pro-B-Type Natriuretic Peptide 4187H, Total Protein 5.6L, Albumin 1.2L, Globulin 4.4, Albumin/Globulin Ratio 0.3L, Triglycerides Level 98, Cholesterol Level 131, LDL Cholesterol 83, HDL Cholesterol 37L, Cholesterol/HDL Ratio 3.5, Thyroid Stimulating Hormone (TSH) 4.443H Height (Feet): 5 Height (Inches): 5.00 Weight (Pounds): 189 General Appearance: no apparent distress Cardiovascular: normal rate Respiratory/Chest: decreased breath sounds Abdomen: distended Edema: 1+ Arm (L), 1+ Arm (R), 1+ Leg (L), 1+ Leg (R), 1+ Pedal (L), 1+ Pedal ( R), 1+ Generalized Objective no signs of CHF STANLEY MIGUEL May 16, 2017 10:26
[2017-05-16 11:52] VITALS: BP 132/59
--- NOTE | 2017-05-16 12:11 | Cardiology Report ---
APPROVED REPORT EKG Measurement Heart [id number] [place] 168P58 [id number] Normal sinus rhythm Rightward axis Borderline ECG
--- NOTE | 2017-05-16 12:11 | Cardiology Report ---
APPROVED REPORT EKG Measurement Heart [id number] [place] 168P58 [id number] Normal sinus rhythm Rightward axis Borderline ECG
--- NOTE | 2017-05-16 12:11 | Cardiology Report ---
APPROVED REPORT EKG Measurement Heart [id number] [place] 168P58 [id number] Normal sinus rhythm Rightward axis Borderline ECG
--- NOTE | 2017-05-16 12:18 | Cardiology Report ---
APPROVED REPORT EKG Measurement Heart [id number] [place] 166P36 [id number] Normal sinus rhythm Normal ECG
--- NOTE | 2017-05-16 12:18 | Cardiology Report ---
APPROVED REPORT EKG Measurement Heart [id number] [place] 166P36 [id number] Normal sinus rhythm Normal ECG
--- NOTE | 2017-05-16 12:18 | Cardiology Report ---
APPROVED REPORT EKG Measurement Heart [id number] [place] 166P36 [id number] Normal sinus rhythm Normal ECG
[2017-05-16] MEDS ORDERED: HEPARIN SO5000 UNIT2 SUBQ (12:31)
--- NOTE | 2017-05-16 13:05 | GI Progress Note ---
Assessment/Plan Problems: (1) Uncontrolled diabetes mellitus ICD Codes: E11.65 - Type 2 diabetes mellitus with hyperglycemia SNOMED: 76678822, 156285224 (2) Alkaline phosphatase elevation ICD Codes: R74.8 - Abnormal levels of other serum enzymes SNOMED: 631047416 (3) Hypoalbuminemia ICD Codes: E88.09 - Other disorders of plasma-protein metabolism, not elsewhere classified SNOMED: 499109624 (4) Anemia ICD Codes: D64.9 - Anemia, unspecified SNOMED: 607689653 Status: stable Status Narrative Discussed with Dr. Wilkins. Assessment/Plan s/p colonoscopy x 2 years at [facility] with unremarkable results per patient stable H&H OB stool negative refused EGD okay for DC per GI standpoint monitor H&H, prn transfusions bowel regime >> colace + miralax ppi DM mgmt fu labs The patient was seen and examined at bedside and all new and available data was reviewed in the patients chart. I agree with the above findings, impression and plan. (Patient seen earlier today. Signature stamp does not reflect patient encounter time.). - Sherif Wilkins MD Subjective Subjective constipated Objective Last 24 Hour Vital Signs Date Time Temp Pulse Resp B/P (MAP) Pulse Ox O2 Delivery O2 Flow Rate FiO2 05/16/17 11:52 97.7 67 20 132/59 99 Room Air 05/16/17 09:33 67 137/61 05/16/17 09:32 67 137/61 05/16/17 08:00 98.9 66 21 137/61 98 Room Air 05/16/17 08:00 67 05/16/17 07:41 98.2 05/16/17 04:00 98.2 66 20 135/60 97 Room Air 05/16/17 04:00 65 05/16/17 00:26 98.5 75 20 151/66 96 Room Air 05/16/17 00:00 69 05/15/17 20:53 64 125/51 05/15/17 20:00 66 05/15/17 20:00 98.5 64 20 122/51 100 Room Air 05/15/17 18:08 67 127/56 05/15/17 16:00 98.5 67 22 127/56 98 Room Air 05/15/17 15:41 68 Laboratory Tests Test 05/16/17 03:35 White Blood Count 8.2 K/UL (4.8-10.8) Red Blood Count 3.05 M/UL (4.20-5.40) L Hemoglobin 8.5 G/DL (12.0-16.0) L Hematocrit 26.1 % (37.0-47.0) L Mean Corpuscular Volume 86 FL (80-99) Mean Corpuscular Hemoglobin 27.7 PG (27.0-31.0) Mean Corpuscular Hemoglobin Concent 32.4 G/DL (32.0-36.0) Red Cell Distribution Width 12.6 % (11.6-14.8) Platelet Count 268 K/UL (150-450) Mean Platelet Volume 7.5 FL (6.5-10.1) Neutrophils (%) (Auto) 70.2 % (45.0-75.0) Lymphocytes (%) (Auto) 16.6 % (20.0-45.0) L Monocytes (%) (Auto) 9.2 % (1.0-10.0) Eosinophils (%) (Auto) 3.3 % (0.0-3.0) H Basophils (%) (Auto) 0.7 % (0.0-2.0) Sodium Level 129 MMOL/L (136-145) L Potassium Level 5.0 MMOL/L (3.5-5.1) Chloride Level 100 MMOL/L (98-107) Carbon Dioxide Level 21 MMOL/L (21-32) Anion Gap 8 mmol/L (5-15) Blood Urea Nitrogen 43 mg/dL (7-18) H Creatinine 3.1 MG/DL (0.55-1.30) H Estimat Glomerular Filtration Rate 18.1 mL/min (>60) Glucose Level 118 MG/DL (74-106) H Osmolality 284 mOsm/kg (297-317) L Uric Acid 7.5 MG/DL (2.6-7.2) H Calcium Level 8.6 MG/DL (8.5-10.1) Phosphorus Level 4.4 MG/DL (2.5-4.9) Magnesium Level 2.0 MG/DL (1.8-2.4) Total Bilirubin 0.2 MG/DL (0.2-1.0) Aspartate Amino Transf (AST/SGOT) 12 U/L (15-37) L Alanine Aminotransferase (ALT/SGPT) < 6 U/L (12-78) L Alkaline Phosphatase 131 U/L (46-116) H C-Reactive Protein, Quantitative 22.0 mg/dL (0.00-0.90) H Pro-B-Type Natriuretic Peptide 4187 pg/mL (0-125) H Total Protein 5.6 G/DL (6.4-8.2) L Albumin 1.2 G/DL (3.4-5.0) L Globulin 4.4 g/dL Albumin/Globulin Ratio 0.3 (1.0-2.7) L Triglycerides Level 98 MG/DL (0-200) Cholesterol Level 131 MG/DL (< 200) LDL Cholesterol 83 mg/dL (<100) HDL Cholesterol 37 MG/DL (40-60) L Cholesterol/HDL Ratio 3.5 (3.3-4.4) Thyroid Stimulating Hormone (TSH) 4.443 uiU/mL (0.360-3.740) Height (Feet): 5 Height (Inches): 5.00 Weight (Pounds): 189 General Appearance: WD/WN, no apparent distress, alert Cardiovascular: normal rate Respiratory/Chest: normal breath sounds, no respiratory distress Abdominal Exam: normal bowel sounds, non tender, soft Tessa Spears N.Mable May 16, 2017 13:05 CHUCHO WILKINS May 17, 2017 07:15
--- NOTE | 2017-05-16 13:05 | GI Progress Note ---
Assessment/Plan Problems: (1) Uncontrolled diabetes mellitus ICD Codes: E11.65 - Type 2 diabetes mellitus with hyperglycemia SNOMED: 74579708, 875103016 (2) Alkaline phosphatase elevation ICD Codes: R74.8 - Abnormal levels of other serum enzymes SNOMED: 468303523 (3) Hypoalbuminemia ICD Codes: E88.09 - Other disorders of plasma-protein metabolism, not elsewhere classified SNOMED: 062127604 (4) Anemia ICD Codes: D64.9 - Anemia, unspecified SNOMED: 375727545 Status: stable Status Narrative Discussed with Dr. Wilkins. Assessment/Plan s/p colonoscopy x 2 years at [facility] with unremarkable results per patient stable H&H OB stool negative refused EGD okay for DC per GI standpoint monitor H&H, prn transfusions bowel regime >> colace + miralax ppi DM mgmt fu labs The patient was seen and examined at bedside and all new and available data was reviewed in the patients chart. I agree with the above findings, impression and plan. (Patient seen earlier today. Signature stamp does not reflect patient encounter time.). - Sherif Wilkins MD Subjective Subjective constipated Objective Last 24 Hour Vital Signs Date Time Temp Pulse Resp B/P (MAP) Pulse Ox O2 Delivery O2 Flow Rate FiO2 05/16/17 11:52 97.7 67 20 132/59 99 Room Air 05/16/17 09:33 67 137/61 05/16/17 09:32 67 137/61 05/16/17 08:00 98.9 66 21 137/61 98 Room Air 05/16/17 08:00 67 05/16/17 07:41 98.2 05/16/17 04:00 98.2 66 20 135/60 97 Room Air 05/16/17 04:00 65 05/16/17 00:26 98.5 75 20 151/66 96 Room Air 05/16/17 00:00 69 05/15/17 20:53 64 125/51 05/15/17 20:00 66 05/15/17 20:00 98.5 64 20 122/51 100 Room Air 05/15/17 18:08 67 127/56 05/15/17 16:00 98.5 67 22 127/56 98 Room Air 05/15/17 15:41 68 Laboratory Tests Test 05/16/17 03:35 White Blood Count 8.2 K/UL (4.8-10.8) Red Blood Count 3.05 M/UL (4.20-5.40) L Hemoglobin 8.5 G/DL (12.0-16.0) L Hematocrit 26.1 % (37.0-47.0) L Mean Corpuscular Volume 86 FL (80-99) Mean Corpuscular Hemoglobin 27.7 PG (27.0-31.0) Mean Corpuscular Hemoglobin Concent 32.4 G/DL (32.0-36.0) Red Cell Distribution Width 12.6 % (11.6-14.8) Platelet Count 268 K/UL (150-450) Mean Platelet Volume 7.5 FL (6.5-10.1) Neutrophils (%) (Auto) 70.2 % (45.0-75.0) Lymphocytes (%) (Auto) 16.6 % (20.0-45.0) L Monocytes (%) (Auto) 9.2 % (1.0-10.0) Eosinophils (%) (Auto) 3.3 % (0.0-3.0) H Basophils (%) (Auto) 0.7 % (0.0-2.0) Sodium Level 129 MMOL/L (136-145) L Potassium Level 5.0 MMOL/L (3.5-5.1) Chloride Level 100 MMOL/L (98-107) Carbon Dioxide Level 21 MMOL/L (21-32) Anion Gap 8 mmol/L (5-15) Blood Urea Nitrogen 43 mg/dL (7-18) H Creatinine 3.1 MG/DL (0.55-1.30) H Estimat Glomerular Filtration Rate 18.1 mL/min (>60) Glucose Level 118 MG/DL (74-106) H Osmolality 284 mOsm/kg (297-317) L Uric Acid 7.5 MG/DL (2.6-7.2) H Calcium Level 8.6 MG/DL (8.5-10.1) Phosphorus Level 4.4 MG/DL (2.5-4.9) Magnesium Level 2.0 MG/DL (1.8-2.4) Total Bilirubin 0.2 MG/DL (0.2-1.0) Aspartate Amino Transf (AST/SGOT) 12 U/L (15-37) L Alanine Aminotransferase (ALT/SGPT) < 6 U/L (12-78) L Alkaline Phosphatase 131 U/L (46-116) H C-Reactive Protein, Quantitative 22.0 mg/dL (0.00-0.90) H Pro-B-Type Natriuretic Peptide 4187 pg/mL (0-125) H Total Protein 5.6 G/DL (6.4-8.2) L Albumin 1.2 G/DL (3.4-5.0) L Globulin 4.4 g/dL Albumin/Globulin Ratio 0.3 (1.0-2.7) L Triglycerides Level 98 MG/DL (0-200) Cholesterol Level 131 MG/DL (< 200) LDL Cholesterol 83 mg/dL (<100) HDL Cholesterol 37 MG/DL (40-60) L Cholesterol/HDL Ratio 3.5 (3.3-4.4) Thyroid Stimulating Hormone (TSH) 4.443 uiU/mL (0.360-3.740) Height (Feet): 5 Height (Inches): 5.00 Weight (Pounds): 189 General Appearance: WD/WN, no apparent distress, alert Cardiovascular: normal rate Respiratory/Chest: normal breath sounds, no respiratory distress Abdominal Exam: normal bowel sounds, non tender, soft Tessa Spears N.Mable May 16, 2017 13:05 CHUCHO WILKINS May 17, 2017 07:15
--- NOTE | 2017-05-16 13:05 | GI Progress Note ---
Assessment/Plan Problems: (1) Uncontrolled diabetes mellitus ICD Codes: E11.65 - Type 2 diabetes mellitus with hyperglycemia SNOMED: 43171605, 817631901 (2) Alkaline phosphatase elevation ICD Codes: R74.8 - Abnormal levels of other serum enzymes SNOMED: 914910628 (3) Hypoalbuminemia ICD Codes: E88.09 - Other disorders of plasma-protein metabolism, not elsewhere classified SNOMED: 205314067 (4) Anemia ICD Codes: D64.9 - Anemia, unspecified SNOMED: 849322905 Status: stable Status Narrative Discussed with Dr. Wilkins. Assessment/Plan s/p colonoscopy x 2 years at [facility] with unremarkable results per patient stable H&H OB stool negative refused EGD okay for DC per GI standpoint monitor H&H, prn transfusions bowel regime >> colace + miralax ppi DM mgmt fu labs The patient was seen and examined at bedside and all new and available data was reviewed in the patients chart. I agree with the above findings, impression and plan. (Patient seen earlier today. Signature stamp does not reflect patient encounter time.). - Sherif Wilkins MD Subjective Subjective constipated Objective Last 24 Hour Vital Signs Date Time Temp Pulse Resp B/P (MAP) Pulse Ox O2 Delivery O2 Flow Rate FiO2 05/16/17 11:52 97.7 67 20 132/59 99 Room Air 05/16/17 09:33 67 137/61 05/16/17 09:32 67 137/61 05/16/17 08:00 98.9 66 21 137/61 98 Room Air 05/16/17 08:00 67 05/16/17 07:41 98.2 05/16/17 04:00 98.2 66 20 135/60 97 Room Air 05/16/17 04:00 65 05/16/17 00:26 98.5 75 20 151/66 96 Room Air 05/16/17 00:00 69 05/15/17 20:53 64 125/51 05/15/17 20:00 66 05/15/17 20:00 98.5 64 20 122/51 100 Room Air 05/15/17 18:08 67 127/56 05/15/17 16:00 98.5 67 22 127/56 98 Room Air 05/15/17 15:41 68 Laboratory Tests Test 05/16/17 03:35 White Blood Count 8.2 K/UL (4.8-10.8) Red Blood Count 3.05 M/UL (4.20-5.40) L Hemoglobin 8.5 G/DL (12.0-16.0) L Hematocrit 26.1 % (37.0-47.0) L Mean Corpuscular Volume 86 FL (80-99) Mean Corpuscular Hemoglobin 27.7 PG (27.0-31.0) Mean Corpuscular Hemoglobin Concent 32.4 G/DL (32.0-36.0) Red Cell Distribution Width 12.6 % (11.6-14.8) Platelet Count 268 K/UL (150-450) Mean Platelet Volume 7.5 FL (6.5-10.1) Neutrophils (%) (Auto) 70.2 % (45.0-75.0) Lymphocytes (%) (Auto) 16.6 % (20.0-45.0) L Monocytes (%) (Auto) 9.2 % (1.0-10.0) Eosinophils (%) (Auto) 3.3 % (0.0-3.0) H Basophils (%) (Auto) 0.7 % (0.0-2.0) Sodium Level 129 MMOL/L (136-145) L Potassium Level 5.0 MMOL/L (3.5-5.1) Chloride Level 100 MMOL/L (98-107) Carbon Dioxide Level 21 MMOL/L (21-32) Anion Gap 8 mmol/L (5-15) Blood Urea Nitrogen 43 mg/dL (7-18) H Creatinine 3.1 MG/DL (0.55-1.30) H Estimat Glomerular Filtration Rate 18.1 mL/min (>60) Glucose Level 118 MG/DL (74-106) H Osmolality 284 mOsm/kg (297-317) L Uric Acid 7.5 MG/DL (2.6-7.2) H Calcium Level 8.6 MG/DL (8.5-10.1) Phosphorus Level 4.4 MG/DL (2.5-4.9) Magnesium Level 2.0 MG/DL (1.8-2.4) Total Bilirubin 0.2 MG/DL (0.2-1.0) Aspartate Amino Transf (AST/SGOT) 12 U/L (15-37) L Alanine Aminotransferase (ALT/SGPT) < 6 U/L (12-78) L Alkaline Phosphatase 131 U/L (46-116) H C-Reactive Protein, Quantitative 22.0 mg/dL (0.00-0.90) H Pro-B-Type Natriuretic Peptide 4187 pg/mL (0-125) H Total Protein 5.6 G/DL (6.4-8.2) L Albumin 1.2 G/DL (3.4-5.0) L Globulin 4.4 g/dL Albumin/Globulin Ratio 0.3 (1.0-2.7) L Triglycerides Level 98 MG/DL (0-200) Cholesterol Level 131 MG/DL (< 200) LDL Cholesterol 83 mg/dL (<100) HDL Cholesterol 37 MG/DL (40-60) L Cholesterol/HDL Ratio 3.5 (3.3-4.4) Thyroid Stimulating Hormone (TSH) 4.443 uiU/mL (0.360-3.740) Height (Feet): 5 Height (Inches): 5.00 Weight (Pounds): 189 General Appearance: WD/WN, no apparent distress, alert Cardiovascular: normal rate Respiratory/Chest: normal breath sounds, no respiratory distress Abdominal Exam: normal bowel sounds, non tender, soft Tessa Spears N.Mable May 16, 2017 13:05 CHUCHO WILKINS May 17, 2017 07:15
[2017-05-16 16:00] VITALS: BP 136/78
[2017-05-16 19:30] VITALS: BP 139/57
[2017-05-16] MEDS ORDERED: Tubing IV Secondary IV ONE (20:29)
--- NOTE | 2017-05-16 22:29 | General Progress Note ---
Assessment/Plan Assessment/Plan ASSESSMENT AND RECOMMENDATION: 1. Anemia, likely related to anemia of chronic disease, workup has been reviewed , potentially 2/2 hemodilution as well --> s/p 2 units prbc earlier on admission and 1 unit prbc as well --> continue to trend HH daily 2. Coagulopathy, potentially secondary to vitamin K --> monitor for improvement 3. Dislocation of subtalar joint. Seen by podaitry/ortho, appreciat recs. 4. Hypertension, currently better controlled. 5. Diabetes mellitus, blood sugar above 600. 6. Acute kidney injury. Kidney ultrasound reviewed. Subjective ROS Limited/Unobtainable: Yes Allergies: Coded Allergies: No Known Allergies (Unverified , 05/11/17) Subjective afebrile, no events, stable Objective Last 24 Hour Vital Signs Date Time Temp Pulse Resp B/P (MAP) Pulse Ox O2 Delivery O2 Flow Rate FiO2 05/16/17 19:30 98.5 68 18 139/57 98 Room Air 05/16/17 18:09 67 136/78 05/16/17 16:00 67 05/16/17 16:00 97.6 86 21 136/78 98 Room Air 05/16/17 12:00 65 05/16/17 11:52 97.7 67 20 132/59 99 Room Air 05/16/17 09:33 67 137/61 05/16/17 09:32 67 137/61 05/16/17 08:00 98.9 66 21 137/61 98 Room Air 05/16/17 08:00 67 05/16/17 07:41 98.2 05/16/17 04:00 98.2 66 20 135/60 97 Room Air 05/16/17 04:00 65 05/16/17 00:26 98.5 75 20 151/66 96 Room Air 05/16/17 00:00 69 Intake and Output 05/16/17 05/17/17 19:00 07:00 Intake Total 220 ml Output Total 800 ml Balance -800 ml 220 ml Intake Oral 220 ml Output Urine Total 800 ml Laboratory Tests 05/16/17 03:35: White Blood Count 8.2, Red Blood Count 3.05L, Hemoglobin 8.5L, Hematocrit 26.1L , Mean Corpuscular Volume 86, Mean Corpuscular Hemoglobin 27.7, Mean Corpuscular Hemoglobin Concent 32.4, Red Cell Distribution Width 12.6, Platelet Count 268, Mean Platelet Volume 7.5, Neutrophils (%) (Auto) 70.2, Lymphocytes (% ) (Auto) 16.6L, Monocytes (%) (Auto) 9.2, Eosinophils (%) (Auto) 3.3H, Basophils (%) (Auto) 0.7, Sodium Level 129L, Potassium Level 5.0, Chloride Level 100, Carbon Dioxide Level 21, Anion Gap 8, Blood Urea Nitrogen 43H, Creatinine 3.1H, Estimat Glomerular Filtration Rate 18.1, Glucose Level 118H, Osmolality 284L, Uric Acid 7.5H, Calcium Level 8.6, Phosphorus Level 4.4, Magnesium Level 2.0, Total Bilirubin 0.2, Aspartate Amino Transf (AST/SGOT) 12L , Alanine Aminotransferase (ALT/SGPT) < 6L, Alkaline Phosphatase 131H, C- Reactive Protein, Quantitative 22.0H, Pro-B-Type Natriuretic Peptide 4187H, Total Protein 5.6L, Albumin 1.2L, Globulin 4.4, Albumin/Globulin Ratio 0.3L, Triglycerides Level 98, Cholesterol Level 131, LDL Cholesterol 83, HDL Cholesterol 37L, Cholesterol/HDL Ratio 3.5, Thyroid Stimulating Hormone (TSH) 4.443H Height (Feet): 5 Height (Inches): 5.00 Weight (Pounds): 189 General Appearance: no apparent distress EENT: normal ENT inspection Neck: normal alignment Cardiovascular: normal rate Skin: normal pigmentation, warm/dry ISHAN FLETCHER May 16, 2017 22:29
--- NOTE | 2017-05-17 07:18 | Discharge Summary ---
Discharge Summary Hospital Course Date of Admission May 11, 2017 at 07:30 Date of Discharge May 16, 2017 at 20:30 Admitting Diagnosis RIGHT ANKLE FX AND ANEMIA HPI 71y/o AA female with pmh of DM2, HTN, HLD, legal blindness who presents with R ankle and foot pain after a fall. Pt uses a walker to get around her house. Pt states that she felt dizzy which she believes is because she is anemic. She tried to walk w/o her caregiver's assistance and fell. She has been unable to bear weight since. Pt states she has been aemic before and usually gets dizzy when she is anemia. She denies melena, BRBPR/hematochezia or any other source of active bleeding. She did have a colonoscopy abt 2 years ago which per pt was unremarkable. No reports of f/c, n/v, d/c, chest pain, SOB. Denies LOC or head trauma. Pt states she has not been following a diabetic diet and is only on one diabetic med. She has noted her BG running in 600s the last few days. In ED, pt's BG>500 on BMP, Cr 3.0 (uknown baseline), K 5.5, Na 125. AG and bicarb wnl. U/A showed no ketones. CBC w/ hgb 6.9. 2U pRBCs ordered to be transfused. Imaging showed R ankle trimalleolar fracture w/ subtalar dislocation s/p reduction and splinting in ED. Consultations Orthopedic surgery, Podiatry, Nephrology, Gastroenterology, Hematology/oncology Procedures Open reduction and internal fixation of bimalleolar fracture of R ankle on 05/13 Hospital Course Pt was admitted and seen by orthopedic surgery. Surgical intervention for R ankle fracture was delayed given ZENY, hyponatremia, uncontrolled blood sugars, and concern for acute GI bleed. Pt received 2U pRBC for acute anemia. Pt was seen by GI, but she refused EGD. She was treated conservatively with serial CBC , PPI. She was also given epogen per renal. No evidence of active bleeding. Endocrinology was consulted and diabetic medications titrated w/ improvement in sugars. Pt given IVFs w/ improvement in Na and SCr. Once stabilized and medically cleared, she underwent open reduction and internal fixation of bimalleolar fracture of R ankle on 05/13/17. Pt tolerated procedure well. Pt was seen by PT/OT who recommended SNF. Once pain controlled and tolerating PT, she was discharged to SNF. Discharge physical exam: General: alert, cooperative, no distress, appears stated age Head: normocephalic, without obvious abnormality, atraumatic Eyes: conjunctivae/corneas clear. PERRL, EOM's intact, +legal blindness b/l Throat: lips, mucosa, and tongue normal. MMM Neck: supple, symmetrical, trachea midline, and no JVD Lungs: clear to auscultation bilaterally Heart: regular rate and rhythm, S1, S2 normal, no murmur, click, rub or gallop Abdomen: soft, non-tender, non-distended, bowel sounds normal; no masses or organomegaly Extremities: extremities normal, atraumatic, no cyanosis, +BLE edema RLE in splint L foot 1st and 2nd toe w/ ecchymoses Pulses: 2+ and symmetric Skin: skin color, texture, turgor normal; no rashes or lesions Neurologic: 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, no focal deficits Discharge diagnoses: (1) Bimalleolar fracture of right ankle ICD Codes: S82.851A - Displaced trimalleolar fracture of right lower leg, initial encounter for closed fracture SNOMED: 654587939, 95794938 Qualifiers: Qualified Codes: S82.851A - Displaced trimalleolar fracture of right lower leg, initial encounter for closed fracture (2) Status post fall ICD Codes: Z91.81 - History of falling SNOMED: 855528432 (3) Uncontrolled diabetes mellitus ICD Codes: E11.65 - Type 2 diabetes mellitus with hyperglycemia SNOMED: 93987053, 114132265 (4) HTN (hypertension) ICD Codes: I10 - Essential (primary) hypertension SNOMED: 42102609 (5) Hyperkalemia ICD Codes: E87.5 - Hyperkalemia SNOMED: 65115696 (6) ZENY (acute kidney injury) ICD Codes: N17.9 - Acute kidney failure, unspecified SNOMED: 17617125 (7) Hyponatremia ICD Codes: E87.1 - Hypo-osmolality and hyponatremia SNOMED: 17823984 (8) Pre-syncope ICD Codes: R55 - Syncope and collapse SNOMED: 349991986 (9) Anemia ICD Codes: D64.9 - Anemia, unspecified SNOMED: 201133538 (10) Subungual hematoma left hallux (11) Dry blisters L hallux and L 2nd toe (12) Dry blisters L hallux and L 2nd toe Discharge Medications New Medications: Heparin Sod (Porcine) (Heparin Sodium*) 5 000/1 Ml Vial 5000 UNITS SUBQ EVERY 12 HOURS for 30 Days, VIAL Amlodipine Besylate (Norvasc) 5 Mg Tablet 5 MG ORAL BID, #60 TAB Carvedilol (Coreg) 6.25 Mg Tablet 6.25 MG ORAL EVERY 12 HOURS, #60 TAB Docusate Sodium* (Colace*) 100 Mg Capsule 100 MG ORAL THREE TIMES A DAY for 30 Days, CAP Epoetin Marcus (Procrit) 20,000 Unit/1 Ml Vial 72027 UNITS SUBQ MON-TUE-TUE for 30 Days, VIAL Hydralazine Hcl* (Hydralazine Hcl*) 25 Mg Tablet 25 MG ORAL Q4H PRN for 30 Days, TAB Hydrocodone Bit/Acetaminophen 5-325* ([place] 5-325*) 1 Each Tablet 1 TAB ORAL Q4H PRN, #40 TAB for moderate/severe pain Insulin Aspart (Novolog Flexpen) 100 Unit/1 Ml Insuln.pen 0 UNITS SUBQ AC+HS for 30 Days, EA Nateglinide* (Starlix*) 60 Mg Tablet 60 MG ORAL TIAC, #90 TAB Oxycodone Hcl Er* (Oxycontin*) 20 Mg Tab.er.12h 20 MG ORAL EVERY 12 HOURS for 14 Days, TAB Pantoprazole* (Protonix*) 40 Mg Tablet.dr 40 MG ORAL DAILY for 30 Days, TAB Polyethylene Glycol 3350* (Miralax*) 17 Gm Powd.pack 17 GM ORAL DAILY for 30 Days, PACK Sennosides (Senna-Gen) 8.6 Mg Tablet 17.2 MG ORAL QHS for 30 Days, TAB Discontinued Medications: Clonidine Hcl* (Catapres*) 0.1 Mg Tablet 0.1 MG ORAL DAILY, TAB Furosemide* (Lasix*) 20 Mg Tablet 20 MG ORAL TWICE A DAY, TAB Glyburide (Glyburide) 1.25 Mg Tablet 1.25 MG PO, TAB Lisinopril* (Lisinopril*) 40 Mg Tablet 40 MG ORAL DAILY, TAB Discharge Condition Upon Discharge: stable Discharge Disposition Patient was discharged to SNF/Subacute Facility(03) Discharge Diagnoses: Celestine Stevens M.D. May 17, 2017 07:18
--- NOTE | 2017-05-17 07:18 | Discharge Summary ---
Discharge Summary Hospital Course Date of Admission May 11, 2017 at 07:30 Date of Discharge May 16, 2017 at 20:30 Admitting Diagnosis RIGHT ANKLE FX AND ANEMIA HPI 71y/o AA female with pmh of DM2, HTN, HLD, legal blindness who presents with R ankle and foot pain after a fall. Pt uses a walker to get around her house. Pt states that she felt dizzy which she believes is because she is anemic. She tried to walk w/o her caregiver's assistance and fell. She has been unable to bear weight since. Pt states she has been aemic before and usually gets dizzy when she is anemia. She denies melena, BRBPR/hematochezia or any other source of active bleeding. She did have a colonoscopy abt 2 years ago which per pt was unremarkable. No reports of f/c, n/v, d/c, chest pain, SOB. Denies LOC or head trauma. Pt states she has not been following a diabetic diet and is only on one diabetic med. She has noted her BG running in 600s the last few days. In ED, pt's BG>500 on BMP, Cr 3.0 (uknown baseline), K 5.5, Na 125. AG and bicarb wnl. U/A showed no ketones. CBC w/ hgb 6.9. 2U pRBCs ordered to be transfused. Imaging showed R ankle trimalleolar fracture w/ subtalar dislocation s/p reduction and splinting in ED. Consultations Orthopedic surgery, Podiatry, Nephrology, Gastroenterology, Hematology/oncology Procedures Open reduction and internal fixation of bimalleolar fracture of R ankle on 05/13 Hospital Course Pt was admitted and seen by orthopedic surgery. Surgical intervention for R ankle fracture was delayed given ZENY, hyponatremia, uncontrolled blood sugars, and concern for acute GI bleed. Pt received 2U pRBC for acute anemia. Pt was seen by GI, but she refused EGD. She was treated conservatively with serial CBC , PPI. She was also given epogen per renal. No evidence of active bleeding. Endocrinology was consulted and diabetic medications titrated w/ improvement in sugars. Pt given IVFs w/ improvement in Na and SCr. Once stabilized and medically cleared, she underwent open reduction and internal fixation of bimalleolar fracture of R ankle on 05/13/17. Pt tolerated procedure well. Pt was seen by PT/OT who recommended SNF. Once pain controlled and tolerating PT, she was discharged to SNF. Discharge physical exam: General: alert, cooperative, no distress, appears stated age Head: normocephalic, without obvious abnormality, atraumatic Eyes: conjunctivae/corneas clear. PERRL, EOM's intact, +legal blindness b/l Throat: lips, mucosa, and tongue normal. MMM Neck: supple, symmetrical, trachea midline, and no JVD Lungs: clear to auscultation bilaterally Heart: regular rate and rhythm, S1, S2 normal, no murmur, click, rub or gallop Abdomen: soft, non-tender, non-distended, bowel sounds normal; no masses or organomegaly Extremities: extremities normal, atraumatic, no cyanosis, +BLE edema RLE in splint L foot 1st and 2nd toe w/ ecchymoses Pulses: 2+ and symmetric Skin: skin color, texture, turgor normal; no rashes or lesions Neurologic: 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, no focal deficits Discharge diagnoses: (1) Bimalleolar fracture of right ankle ICD Codes: S82.851A - Displaced trimalleolar fracture of right lower leg, initial encounter for closed fracture SNOMED: 640739391, 92724146 Qualifiers: Qualified Codes: S82.851A - Displaced trimalleolar fracture of right lower leg, initial encounter for closed fracture (2) Status post fall ICD Codes: Z91.81 - History of falling SNOMED: 918528011 (3) Uncontrolled diabetes mellitus ICD Codes: E11.65 - Type 2 diabetes mellitus with hyperglycemia SNOMED: 14892217, 279656924 (4) HTN (hypertension) ICD Codes: I10 - Essential (primary) hypertension SNOMED: 15937179 (5) Hyperkalemia ICD Codes: E87.5 - Hyperkalemia SNOMED: 36353795 (6) ZENY (acute kidney injury) ICD Codes: N17.9 - Acute kidney failure, unspecified SNOMED: 49110253 (7) Hyponatremia ICD Codes: E87.1 - Hypo-osmolality and hyponatremia SNOMED: 36768316 (8) Pre-syncope ICD Codes: R55 - Syncope and collapse SNOMED: 648366153 (9) Anemia ICD Codes: D64.9 - Anemia, unspecified SNOMED: 376159847 (10) Subungual hematoma left hallux (11) Dry blisters L hallux and L 2nd toe (12) Dry blisters L hallux and L 2nd toe Discharge Medications New Medications: Heparin Sod (Porcine) (Heparin Sodium*) 5 000/1 Ml Vial 5000 UNITS SUBQ EVERY 12 HOURS for 30 Days, VIAL Amlodipine Besylate (Norvasc) 5 Mg Tablet 5 MG ORAL BID, #60 TAB Carvedilol (Coreg) 6.25 Mg Tablet 6.25 MG ORAL EVERY 12 HOURS, #60 TAB Docusate Sodium* (Colace*) 100 Mg Capsule 100 MG ORAL THREE TIMES A DAY for 30 Days, CAP Epoetin Marcus (Procrit) 20,000 Unit/1 Ml Vial 24494 UNITS SUBQ MON-TUE-TUE for 30 Days, VIAL Hydralazine Hcl* (Hydralazine Hcl*) 25 Mg Tablet 25 MG ORAL Q4H PRN for 30 Days, TAB Hydrocodone Bit/Acetaminophen 5-325* ([place] 5-325*) 1 Each Tablet 1 TAB ORAL Q4H PRN, #40 TAB for moderate/severe pain Insulin Aspart (Novolog Flexpen) 100 Unit/1 Ml Insuln.pen 0 UNITS SUBQ AC+HS for 30 Days, EA Nateglinide* (Starlix*) 60 Mg Tablet 60 MG ORAL TIAC, #90 TAB Oxycodone Hcl Er* (Oxycontin*) 20 Mg Tab.er.12h 20 MG ORAL EVERY 12 HOURS for 14 Days, TAB Pantoprazole* (Protonix*) 40 Mg Tablet.dr 40 MG ORAL DAILY for 30 Days, TAB Polyethylene Glycol 3350* (Miralax*) 17 Gm Powd.pack 17 GM ORAL DAILY for 30 Days, PACK Sennosides (Senna-Gen) 8.6 Mg Tablet 17.2 MG ORAL QHS for 30 Days, TAB Discontinued Medications: Clonidine Hcl* (Catapres*) 0.1 Mg Tablet 0.1 MG ORAL DAILY, TAB Furosemide* (Lasix*) 20 Mg Tablet 20 MG ORAL TWICE A DAY, TAB Glyburide (Glyburide) 1.25 Mg Tablet 1.25 MG PO, TAB Lisinopril* (Lisinopril*) 40 Mg Tablet 40 MG ORAL DAILY, TAB Discharge Condition Upon Discharge: stable Discharge Disposition Patient was discharged to SNF/Subacute Facility(03) Discharge Diagnoses: Celestine Stevens M.D. May 17, 2017 07:18
--- NOTE | 2017-05-17 07:18 | Discharge Summary ---
Discharge Summary Hospital Course Date of Admission May 11, 2017 at 07:30 Date of Discharge May 16, 2017 at 20:30 Admitting Diagnosis RIGHT ANKLE FX AND ANEMIA HPI 71y/o AA female with pmh of DM2, HTN, HLD, legal blindness who presents with R ankle and foot pain after a fall. Pt uses a walker to get around her house. Pt states that she felt dizzy which she believes is because she is anemic. She tried to walk w/o her caregiver's assistance and fell. She has been unable to bear weight since. Pt states she has been aemic before and usually gets dizzy when she is anemia. She denies melena, BRBPR/hematochezia or any other source of active bleeding. She did have a colonoscopy abt 2 years ago which per pt was unremarkable. No reports of f/c, n/v, d/c, chest pain, SOB. Denies LOC or head trauma. Pt states she has not been following a diabetic diet and is only on one diabetic med. She has noted her BG running in 600s the last few days. In ED, pt's BG>500 on BMP, Cr 3.0 (uknown baseline), K 5.5, Na 125. AG and bicarb wnl. U/A showed no ketones. CBC w/ hgb 6.9. 2U pRBCs ordered to be transfused. Imaging showed R ankle trimalleolar fracture w/ subtalar dislocation s/p reduction and splinting in ED. Consultations Orthopedic surgery, Podiatry, Nephrology, Gastroenterology, Hematology/oncology Procedures Open reduction and internal fixation of bimalleolar fracture of R ankle on 05/13 Hospital Course Pt was admitted and seen by orthopedic surgery. Surgical intervention for R ankle fracture was delayed given ZENY, hyponatremia, uncontrolled blood sugars, and concern for acute GI bleed. Pt received 2U pRBC for acute anemia. Pt was seen by GI, but she refused EGD. She was treated conservatively with serial CBC , PPI. She was also given epogen per renal. No evidence of active bleeding. Endocrinology was consulted and diabetic medications titrated w/ improvement in sugars. Pt given IVFs w/ improvement in Na and SCr. Once stabilized and medically cleared, she underwent open reduction and internal fixation of bimalleolar fracture of R ankle on 05/13/17. Pt tolerated procedure well. Pt was seen by PT/OT who recommended SNF. Once pain controlled and tolerating PT, she was discharged to SNF. Discharge physical exam: General: alert, cooperative, no distress, appears stated age Head: normocephalic, without obvious abnormality, atraumatic Eyes: conjunctivae/corneas clear. PERRL, EOM's intact, +legal blindness b/l Throat: lips, mucosa, and tongue normal. MMM Neck: supple, symmetrical, trachea midline, and no JVD Lungs: clear to auscultation bilaterally Heart: regular rate and rhythm, S1, S2 normal, no murmur, click, rub or gallop Abdomen: soft, non-tender, non-distended, bowel sounds normal; no masses or organomegaly Extremities: extremities normal, atraumatic, no cyanosis, +BLE edema RLE in splint L foot 1st and 2nd toe w/ ecchymoses Pulses: 2+ and symmetric Skin: skin color, texture, turgor normal; no rashes or lesions Neurologic: 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, no focal deficits Discharge diagnoses: (1) Bimalleolar fracture of right ankle ICD Codes: S82.851A - Displaced trimalleolar fracture of right lower leg, initial encounter for closed fracture SNOMED: 535142893, 65082614 Qualifiers: Qualified Codes: S82.851A - Displaced trimalleolar fracture of right lower leg, initial encounter for closed fracture (2) Status post fall ICD Codes: Z91.81 - History of falling SNOMED: 298601830 (3) Uncontrolled diabetes mellitus ICD Codes: E11.65 - Type 2 diabetes mellitus with hyperglycemia SNOMED: 77487560, 940268444 (4) HTN (hypertension) ICD Codes: I10 - Essential (primary) hypertension SNOMED: 74149135 (5) Hyperkalemia ICD Codes: E87.5 - Hyperkalemia SNOMED: 59911305 (6) ZENY (acute kidney injury) ICD Codes: N17.9 - Acute kidney failure, unspecified SNOMED: 71722409 (7) Hyponatremia ICD Codes: E87.1 - Hypo-osmolality and hyponatremia SNOMED: 53020621 (8) Pre-syncope ICD Codes: R55 - Syncope and collapse SNOMED: 764442283 (9) Anemia ICD Codes: D64.9 - Anemia, unspecified SNOMED: 795518244 (10) Subungual hematoma left hallux (11) Dry blisters L hallux and L 2nd toe (12) Dry blisters L hallux and L 2nd toe Discharge Medications New Medications: Heparin Sod (Porcine) (Heparin Sodium*) 5 000/1 Ml Vial 5000 UNITS SUBQ EVERY 12 HOURS for 30 Days, VIAL Amlodipine Besylate (Norvasc) 5 Mg Tablet 5 MG ORAL BID, #60 TAB Carvedilol (Coreg) 6.25 Mg Tablet 6.25 MG ORAL EVERY 12 HOURS, #60 TAB Docusate Sodium* (Colace*) 100 Mg Capsule 100 MG ORAL THREE TIMES A DAY for 30 Days, CAP Epoetin Marcus (Procrit) 20,000 Unit/1 Ml Vial 89368 UNITS SUBQ MON-TUE-TUE for 30 Days, VIAL Hydralazine Hcl* (Hydralazine Hcl*) 25 Mg Tablet 25 MG ORAL Q4H PRN for 30 Days, TAB Hydrocodone Bit/Acetaminophen 5-325* ([place] 5-325*) 1 Each Tablet 1 TAB ORAL Q4H PRN, #40 TAB for moderate/severe pain Insulin Aspart (Novolog Flexpen) 100 Unit/1 Ml Insuln.pen 0 UNITS SUBQ AC+HS for 30 Days, EA Nateglinide* (Starlix*) 60 Mg Tablet 60 MG ORAL TIAC, #90 TAB Oxycodone Hcl Er* (Oxycontin*) 20 Mg Tab.er.12h 20 MG ORAL EVERY 12 HOURS for 14 Days, TAB Pantoprazole* (Protonix*) 40 Mg Tablet.dr 40 MG ORAL DAILY for 30 Days, TAB Polyethylene Glycol 3350* (Miralax*) 17 Gm Powd.pack 17 GM ORAL DAILY for 30 Days, PACK Sennosides (Senna-Gen) 8.6 Mg Tablet 17.2 MG ORAL QHS for 30 Days, TAB Discontinued Medications: Clonidine Hcl* (Catapres*) 0.1 Mg Tablet 0.1 MG ORAL DAILY, TAB Furosemide* (Lasix*) 20 Mg Tablet 20 MG ORAL TWICE A DAY, TAB Glyburide (Glyburide) 1.25 Mg Tablet 1.25 MG PO, TAB Lisinopril* (Lisinopril*) 40 Mg Tablet 40 MG ORAL DAILY, TAB Discharge Condition Upon Discharge: stable Discharge Disposition Patient was discharged to SNF/Subacute Facility(03) Discharge Diagnoses: Celestine Stevens M.D. May 17, 2017 07:18
--- NOTE | 2017-05-18 09:01 | Diagnostic Imaging Report ---
APPROVED REPORT CPT Code: 43655 Symptoms Comments Limited study on the right leg due to post operation bandages. RIGHT LEG: Common femoral artery waveform analysis is within normal limits at rest. Color duplex sonography reveals patency of the common and superficial femoral arteries. There is no evidence of stenosis or occlusion within these segments. The popliteal and tibial arteries not imaged due to bandages. LEFT LEG: Common femoral artery waveform analysis is within normal limits at rest. Color duplex sonography reveals patency of the superficial femoral and the popliteal arteries. There is no evidence of stenosis or occlusion within these segments. Doppler tibial artery waveform analysis is compatible with severe ischemia.
--- NOTE | 2017-05-18 09:01 | Diagnostic Imaging Report ---
APPROVED REPORT CPT Code: 62443 Symptoms Comments Limited study on the right leg due to post operation bandages. RIGHT LEG: Common femoral artery waveform analysis is within normal limits at rest. Color duplex sonography reveals patency of the common and superficial femoral arteries. There is no evidence of stenosis or occlusion within these segments. The popliteal and tibial arteries not imaged due to bandages. LEFT LEG: Common femoral artery waveform analysis is within normal limits at rest. Color duplex sonography reveals patency of the superficial femoral and the popliteal arteries. There is no evidence of stenosis or occlusion within these segments. Doppler tibial artery waveform analysis is compatible with severe ischemia.
--- NOTE | 2017-05-18 09:01 | Diagnostic Imaging Report ---
APPROVED REPORT CPT Code: 94155 Symptoms Comments Limited study on the right leg due to post operation bandages. RIGHT LEG: Common femoral artery waveform analysis is within normal limits at rest. Color duplex sonography reveals patency of the common and superficial femoral arteries. There is no evidence of stenosis or occlusion within these segments. The popliteal and tibial arteries not imaged due to bandages. LEFT LEG: Common femoral artery waveform analysis is within normal limits at rest. Color duplex sonography reveals patency of the superficial femoral and the popliteal arteries. There is no evidence of stenosis or occlusion within these segments. Doppler tibial artery waveform analysis is compatible with severe ischemia.
== END 2017-05-16 20:30 | DRG 493 ==
LOC: EDBD 05:14 → EMR 05:45 → EDBEDREQSVC 06:50 → EDBEDREQ 06:51 → 2W 07:30 → EDBEDREQ 07:46 → EDBEDREQSVC 08:04 → EDBEDREQ 12:48
PROC: 0QSJXZZ Reposition Right Fibula, External Approach (ICD-10-PCS; principal; 2017-05-11)
PROC: 0QSGXZZ Reposition Right Tibia, External Approach (ICD-10-PCS; principal; 2017-05-11)
PROC: 0QSG04Z Reposition Right Tibia with Internal Fixation Device, Open Approach (ICD-10-PCS; 2017-05-13)
PROC: 0QSJ04Z Reposition Right Fibula with Internal Fixation Device, Open Approach (ICD-10-PCS; 2017-05-13)
DX: S82.841A Displaced bimalleolar fracture of right lower leg, initial encounter for closed fracture (principal); N17.9 Acute kidney failure, unspecified; E11.22 Type 2 diabetes mellitus with diabetic chronic kidney disease; D68.9 Coagulation defect, unspecified; E11.42 Type 2 diabetes mellitus with diabetic polyneuropathy; E11.65 Type 2 diabetes mellitus with hyperglycemia; E87.1 Hypo-osmolality and hyponatremia; D62 Acute posthemorrhagic anemia; I12.9 Hypertensive chronic kidney disease with stage 1 through stage 4 chronic kidney disease, or unspecified chronic kidney disease; S90.222A Contusion of left lesser toe(s) with damage to nail, initial encounter; E87.5 Hyperkalemia; R55 Syncope and collapse; W19.XXXA Unspecified fall, initial encounter; H54.8 Legal blindness, as defined in USA; W18.30XA Fall on same level, unspecified, initial encounter; Y92.019 Unspecified place in single-family (private) house as the place of occurrence of the external cause; E11.319 Type 2 diabetes mellitus with unspecified diabetic retinopathy without macular edema; N18.9 Chronic kidney disease, unspecified; M81.0 Age-related osteoporosis without current pathological fracture; Z91.19 Patient's noncompliance with other medical treatment and regimen; R74.8 Abnormal levels of other serum enzymes; E88.09 Other disorders of plasma-protein metabolism, not elsewhere classified; E78.5 Hyperlipidemia, unspecified; R23.8 Other skin changes
CPT/HCPCS: 29515; 36415; 36430; 71010; 76775; 80048; 80053; 80061; 81003; 82270; 82550; 82553; 82607; 82728; 82746; 82962; 82977; 83036; 83540; 83550; 83605; 83615; 83735; 83880; 83921; 83930; 84100; 84300; 84439; 84443; 84484; 84550; 85007; 85025; 85044; 85060; 85610; 85730; 86140; 86850; 86900; 86901; 86920; 87040; 89050; 93005; 93306; 93925; 94003; 94150; 99285; J1815; J2250; J2405; S5561

== ENCOUNTER 2017-06-08 16:20 | Inpatient (IN) | payer MEDICARE, OTHER ==
[~2017-06-08] VITALS: Ht 162.6 cm; Wt 90.7 kg
[~2017-06-08 16:20] MED LIST: CATAPRES0.1 MG ORAL; COLACE100 MG ORAL; COREG6.25 MG ORAL; GLYBURIDE1.25 MG PO; HEPARIN SO5000 UNIT2 SUBQ; HYDRALAZINE HCL25 M1 ORAL; LASIX20 M1 ORAL; LISINOPRIL40 MG ORAL; MIRALAX17 G2 ORAL; NORCO 5-325 TA1 EACH ORAL; NORVASC5 MG ORAL; NOVOLOG100 UNITS1 SUBQ; OXYCONTIN20 MG ORAL; PROCRIT20000 UNI2 SUBQ; PROTONIX40 MG ORAL; SENNA-GEN8.6 M1 ORAL; STARLIX60 MG ORAL
[2017-06-08 16:40] VITALS: BP 161/60
[2017-06-08] MEDS ORDERED: Vancomycin 1.5gm/D5W 250ml 250 ML IVPB ONE (16:45)
--- NOTE | 2017-06-08 16:58 | Emergency Room Report ---
History of Present Illness General Chief Complaint: Skin Rash/Abscess Source: Patient, EMS Present Illness HPI 71-year-old female presents to ED for evaluation. Patient noted to have necrotic tissue over her right foot and ankle. Patient is status post trimal repair x3 weeks. Repaired here at [place]. Patient has been in rehab facility since. Patient denies any pain. Denies any fevers or chills. Was noticed by wound care that there is necrotic tissue and swelling to the right foot and ankle patient was brought here for evaluation. No other aggravating or leading factors. Denies any other associated symptoms Allergies: Coded Allergies: No Known Allergies (Unverified , 05/11/17) Patient History Past Medical History: DM, HTN Past Surgical History: none Pertinent Family History: none Social History: Denies: smoking, alcohol use, drug use Now: No Immunizations: UTD Reviewed Nursing Documentation: PMH: Agreed, PSxH: Agreed Nursing Documentation-PMH Past Medical History: No History, Except For Hx Hypertension: Yes Hx COPD: No - anemia Hx Diabetes: Yes Hx Neurological Problems: No Review of Systems All Other Systems: negative except mentioned in HPI Physical Exam Vital Signs Date Time Temp Pulse Resp B/P (MAP) Pulse Ox O2 Delivery O2 Flow Rate FiO2 06/08/17 16:14 98.4 74 22 153/67 98 Room Air Sp02 EP Interpretation: reviewed, normal General Appearance: no apparent distress, alert, GCS 15, non-toxic Head: normocephalic ENT: normal ENT inspection Neck: normal inspection Respiratory: chest non-tender, lungs clear, normal breath sounds, speaking full sentences Cardiovascular #1: regular rate, rhythm, no edema Gastrointestinal: normal bowel sounds, non tender, soft, non-distended, no guarding, no rebound Rectal: deferred Genitourinary: no CVA tenderness Musculoskeletal: swelling, tender - R ankle Neurologic: alert, oriented x3, responsive, motor strength/tone normal, sensory intact, speech normal Psychiatric: judgement/insight normal, memory normal, mood/affect normal, no suicidal/homicidal ideation Skin: other - 8 inch x 3 inch area of black tissue over R ankle/dorsum of R foot. swelling/induration noted. no discharge Lymphatic: normal inspection Medical Decision Making Diagnostic Impression: Primary Impression: Cellulitis of right ankle Additional Impressions: S/P ORIF (open reduction internal fixation) fracture Hyperkalemia Renal insufficiency ER Course Hospital Course 71-year-old female presents to ED with redness, swelling to R ankle. s/p ORIF Differential diagnoses include: Cellulitis, abscess, rash. Clinical course Patient placed on stretcher. After initial history and physical I ordered labs , blood Cx, UA, IVFs labs reviewed - no leukocytosis, Hb/Hct stable, K 5.8, renal insufficiency. antibiotics given. tissue over ankle appears black, likely require debridement Kayexelate given Dr Tesfaye consulted. Case discussed with Dr Mosquera and he agreed to accept the patient to his service for further care and support Diagnosis - cellulitis of right ankle, s/p ORIF, hyperkalemia, renal insufficiency Patient admitted to floor in serious condition Labs Test 06/08/17 16:35 06/08/17 16:55 White Blood Count 7.8 K/UL (4.8-10.8) Red Blood Count 3.28 M/UL (4.20-5.40) Hemoglobin 8.8 G/DL (12.0-16.0) Hematocrit 29.5 % (37.0-47.0) Mean Corpuscular Volume 90 FL (80-99) Mean Corpuscular Hemoglobin 26.9 PG (27.0-31.0) Mean Corpuscular Hemoglobin Concent 29.9 G/DL (32.0-36.0) Red Cell Distribution Width 15.1 % (11.6-14.8) Platelet Count 277 K/UL (150-450) Mean Platelet Volume 6.7 FL (6.5-10.1) Neutrophils (%) (Auto) 68.8 % (45.0-75.0) Lymphocytes (%) (Auto) 17.5 % (20.0-45.0) Monocytes (%) (Auto) 8.8 % (1.0-10.0) Eosinophils (%) (Auto) 3.9 % (0.0-3.0) Basophils (%) (Auto) 0.9 % (0.0-2.0) Sodium Level 133 MMOL/L (136-145) Potassium Level 5.8 MMOL/L (3.5-5.1) Chloride Level 103 MMOL/L (98-107) Carbon Dioxide Level 22 MMOL/L (21-32) Anion Gap 8 mmol/L (5-15) Blood Urea Nitrogen 57 mg/dL (7-18) Creatinine 3.1 MG/DL (0.55-1.30) Estimat Glomerular Filtration Rate 18.1 mL/min (>60) Glucose Level 211 MG/DL (74-106) Lactic Acid Level 1.10 mmol/L (0.66-2.22) Calcium Level 8.8 MG/DL (8.5-10.1) Total Bilirubin 0.1 MG/DL (0.2-1.0) Aspartate Amino Transf (AST/SGOT) 13 U/L (15-37) Alanine Aminotransferase (ALT/SGPT) 13 U/L (12-78) Alkaline Phosphatase 140 U/L (46-116) Total Protein 6.4 G/DL (6.4-8.2) Albumin 1.8 G/DL (3.4-5.0) Globulin 4.6 g/dL Albumin/Globulin Ratio 0.4 (1.0-2.7) Urine Color Pale yellow Urine Appearance Slightly cloudy Urine pH 5 (4.5-8.0) Urine Specific [place] 1.010 (1.005-1.035) Urine Protein 3+ (NEGATIVE) Urine Glucose (UA) 2+ (NEGATIVE) Urine Ketones Negative (NEGATIVE) Urine Occult Blood 2+ (NEGATIVE) Urine Nitrite Negative (NEGATIVE) Urine Bilirubin Negative (NEGATIVE) Urine Urobilinogen Normal MG/DL (0.0-1.0) Urine Leukocyte Esterase Negative (NEGATIVE) Urine RBC 2-4 /HPF (0 - 2) Urine WBC 0-2 /HPF (0 - 2) Urine Squamous Epithelial Cells Few /LPF (NONE/OCC) Urine Amorphous Sediment Moderate /LPF (NONE) Urine Bacteria Few /HPF (NONE) Last Vital Signs Date Time Temp Pulse Resp B/P (MAP) Pulse Ox O2 Delivery O2 Flow Rate FiO2 06/08/17 16:14 98.4 74 22 153/67 98 Room Air Status: improved Disposition: ADMITTED INPATIENT Condition: CHRISTEN Gamez M.D. Jun 08, 2017 16:58
[2017-06-08 17:07] LABS: BASOPHILS % (AUTO) 0.9 % (0.0-2.0); EOSINOPHILS % (AUTO) 3.9 % (0.0-3.0); LYMPHOCYTES % (AUTO) 17.5 % (20.0-45.0); MEAN CORPUSCULAR HEMOGLOBIN 26.9 PG (27.0-31.0); MEAN CORPUSCULAR HGB CONC 29.9 G/DL (32.0-36.0); MEAN CORPUSCULAR VOLUME 90 FL (80-99); MEAN PLATELET VOLUME 6.7 FL (6.5-10.1); MONOCYTES % (AUTO) 8.8 % (1.0-10.0); NEUTROPHILS % (AUTO) 68.8 % (45.0-75.0); PLATELET COUNT 277 K/UL (150-450); RED BLOOD COUNT 3.28 M/UL (4.20-5.40); RED CELL DISTRIBUTION WIDTH 15.1 % (11.6-14.8); WHITE BLOOD COUNT 7.8 K/UL (4.8-10.8)
[2017-06-08 17:29] LABS: APPEARANCE,URINE SLIGHTLY CLOUDY; KETONES,URINE NEGATIVE (NEGATIVE); LEUKOCYTE ESTERASE ,URINE NEGATIVE (NEGATIVE); NITRITE,URINE NEGATIVE (NEGATIVE); PH,URINE 5 (4.5-8.0); PROTEIN,URINE 3+ (NEGATIVE); UROBILINOGEN,URINE NORMAL MG/DL (0.0-1.0)
[2017-06-08 17:39] LABS: ANION GAP 8 mmol/L (5-15); CALCIUM 8.8 MG/DL (8.5-10.1); CARBON DIOXIDE 22 MMOL/L (21-32); CHLORIDE 103 MMOL/L (98-107); CREATININE 3.1 MG/DL (0.55-1.30); GLOMERULAR FILTRATION RATE 18.1 mL/min (>60); POTASSIUM 5.8 MMOL/L (3.5-5.1); SODIUM 133 MMOL/L (136-145)
[2017-06-08 17:42] LABS: BACTERIA,URINE FEW /HPF; SQUAMOUS EPITHELIAL CELL,UR FEW /LPF (NONE/OCC); WBC,URINE 0-2 /HPF (0 - 2)
[2017-06-08 17:42] LABS: ALANINE AMINOTRANSFERASE 13 U/L (12-78); ALBUMIN/GLOBULIN RATIO 0.4 (1.0-2.7); ASPARTATE AMINO TRANSFERASE 13 U/L (15-37); TOTAL PROTEIN 6.4 G/DL (6.4-8.2)
[2017-06-08 17:43] LABS: AMORPHOUS SEDIMENT,UR MODERATE /LPF
[2017-06-08] MEDS ORDERED: Sodium Polystyrene Sulfonate 15gm Powder ORAL ONE (17:45)
[2017-06-08] MEDS ORDERED: Miralax 17gm pkt ORAL PRN (17:45)
--- NOTE | 2017-06-08 17:50 | History and Physical ---
History of Present Illness General Date patient seen: Jun 09, 2017 Time patient seen: 11:00 Reason for Hospitalization: R leg necrotic wound Present Illness HPI 71y/o AA female with pmh of DM2, HTN, HLD, legal blindness, CKD, AOCD, recent R ankle fracture s/p R ORIF on 05/13/17 who presents with R foot/ankle necrotic wound. Pt recently [place] fracture [place] [facility] [place] SNF for rehab. Pt states she was doing well there. She was noted to have worsening R foot/ankle wound w/ signs of necrosis, so she was transferred back to the hospital for further care. Pt denies pain, f/c, n/v, d/c , abd pain, melena, BRBPR, dysuria. In ED, pt given vanco IV. Allergies: Coded Allergies: No Known Allergies (Unverified , 05/11/17) Medication History Scheduled Amlodipine Besylate (Norvasc), 5 MG ORAL BID Carvedilol (Coreg), 6.25 MG ORAL EVERY 12 HOURS Docusate Sodium* (Colace*), 100 MG ORAL THREE TIMES A DAY Epoetin Marcus (Procrit), 10,000 UNITS SUBQ TUE-TUE-TUE Heparin Sod (Porcine) (Heparin Sodium*), 5,000 UNITS SUBQ EVERY 12 HOURS Insulin Aspart (Novolog Flexpen), 0 UNITS SUBQ AC+HS Nateglinide* (Starlix*), 60 MG ORAL TIAC Oxycodone Hcl Er* (Oxycontin*), 20 MG ORAL EVERY 12 HOURS Pantoprazole* (Protonix*), 40 MG ORAL DAILY Polyethylene Glycol 3350* (Miralax*), 17 GM ORAL DAILY Sennosides (Senna-Gen), 17.2 MG ORAL QHS Scheduled PRN Hydralazine Hcl* (Hydralazine Hcl*), 25 MG ORAL Q4H PRN Hydrocodone Bit/Acetaminophen 5-325* ([place] 5-325*), 1 TAB ORAL Q4H PRN Patient History History Provided By: Patient, Medical Record, PMD Healthcare decision maker N Resuscitation status Advanced Directive on File Past Medical/Surgical History Past Medical/Surgical History: (1) Anemia of chronic disease (2) Status post ORIF of fracture of ankle (3) DM2 (diabetes mellitus, type 2) (4) CKD (chronic kidney disease) stage 4, GFR 15-29 ml/min (5) HTN (hypertension) (6) HLD (hyperlipidemia) Family History Family History: Patient reports no known family medical history. Social History Social History: (1) live at [facility] Review of Systems Constitutional: Reports: weakness Eye: Reports: no symptoms ENT: Reports: no symptoms Respiratory: Reports: no symptoms Cardiovascular: Reports: no symptoms Gastrointestinal: Reports: no symptoms Genitourinary: Reports: no symptoms Musculoskeletal: Reports: no symptoms Skin: Reports: lesions Psychiatric: Reports: no symptoms Neurological: Reports: no symptoms Endocrine: Reports: no symptoms Hematologic/Lymphatic: Reports: no symptoms Physical Exam Physical Exam Narrative General: alert, cooperative, no distress, appears stated age Head: normocephalic, without obvious abnormality, atraumatic Eyes: conjunctivae/corneas clear. PERRL, EOM's intact Throat: lips, mucosa, and tongue normal. MMM Neck: supple, symmetrical, trachea midline, and no JVD Lungs: clear to auscultation bilaterally Heart: regular rate and rhythm, S1, S2 normal, no murmur, click, rub or gallop Abdomen: soft, non-tender, non-distended, bowel sounds normal; no masses or organomegaly Extremities: 8 inch x 3 inch area of black tissue over R ankle/dorsum of R foot. swelling/induration noted. no discharge Pulses: 2+ and symmetric Skin: skin color, texture, turgor normal; no rashes or lesions Neurologic: 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, no focal deficits Last 24 Hour Vital Signs Date Time Temp Pulse Resp B/P (MAP) Pulse Ox O2 Delivery O2 Flow Rate FiO2 06/08/17 16:40 98.7 74 12 161/60 98 Room Air 06/08/17 16:14 98.4 74 22 153/67 98 Room Air Intake and Output 06/08/17 06/09/17 19:00 07:00 Output Total 560 ml Balance -560 ml Output Urine Total 560 ml Laboratory Tests Test 06/08/17 16:35 06/08/17 16:55 White Blood Count 7.8 K/UL (4.8-10.8) Red Blood Count 3.28 M/UL (4.20-5.40) L Hemoglobin 8.8 G/DL (12.0-16.0) L Hematocrit 29.5 % (37.0-47.0) L Mean Corpuscular Volume 90 FL (80-99) Mean Corpuscular Hemoglobin 26.9 PG (27.0-31.0) L Mean Corpuscular Hemoglobin Concent 29.9 G/DL (32.0-36.0) L Red Cell Distribution Width 15.1 % (11.6-14.8) H Platelet Count 277 K/UL (150-450) Mean Platelet Volume 6.7 FL (6.5-10.1) Neutrophils (%) (Auto) 68.8 % (45.0-75.0) Lymphocytes (%) (Auto) 17.5 % (20.0-45.0) L Monocytes (%) (Auto) 8.8 % (1.0-10.0) Eosinophils (%) (Auto) 3.9 % (0.0-3.0) H Basophils (%) (Auto) 0.9 % (0.0-2.0) Sodium Level 133 MMOL/L (136-145) L Potassium Level 5.8 MMOL/L (3.5-5.1) H Chloride Level 103 MMOL/L (98-107) Carbon Dioxide Level 22 MMOL/L (21-32) Anion Gap 8 mmol/L (5-15) Blood Urea Nitrogen 57 mg/dL (7-18) H Creatinine 3.1 MG/DL (0.55-1.30) H Estimat Glomerular Filtration Rate 18.1 mL/min (>60) Glucose Level 211 MG/DL (74-106) H Lactic Acid Level 1.10 mmol/L (0.66-2.22) Calcium Level 8.8 MG/DL (8.5-10.1) Total Bilirubin 0.1 MG/DL (0.2-1.0) L Aspartate Amino Transf (AST/SGOT) 13 U/L (15-37) L Alanine Aminotransferase (ALT/SGPT) 13 U/L (12-78) Alkaline Phosphatase 140 U/L (46-116) H Total Protein 6.4 G/DL (6.4-8.2) Albumin 1.8 G/DL (3.4-5.0) L Globulin 4.6 g/dL Albumin/Globulin Ratio 0.4 (1.0-2.7) L Urine Color Pale yellow Urine Appearance Slightly cloudy Urine pH 5 (4.5-8.0) Urine Specific [place] 1.010 (1.005-1.035) Urine Protein 3+ (NEGATIVE) H Urine Glucose (UA) 2+ (NEGATIVE) H Urine Ketones Negative (NEGATIVE) Urine Occult Blood 2+ (NEGATIVE) H Urine Nitrite Negative (NEGATIVE) Urine Bilirubin Negative (NEGATIVE) Urine Urobilinogen Normal MG/DL (0.0-1.0) Urine Leukocyte Esterase Negative (NEGATIVE) Urine RBC 2-4 /HPF (0 - 2) H Urine WBC 0-2 /HPF (0 - 2) Urine Squamous Epithelial Cells Few /LPF (NONE/OCC) Urine Amorphous Sediment Moderate /LPF (NONE) H Urine Bacteria Few /HPF (NONE) Height (Feet): 5 Height (Inches): 4.00 Weight (Pounds): 200 Medications Current Medications Medications (Trade) Dose Ordered Sig/Andre Route PRN Reason Start Time Stop Time Status Last Admin Dose Admin Dextrose (Dextrose 50%) STAT PRN IV Hypoglycemia 06/08/17 17:45 07/08/17 17:44 UNV Diphenhydramine HCl (Benadryl) 25 mg Q6H PRN ORAL Itching/Pruritis 06/08/17 17:45 07/08/17 17:44 UNV Docusate Sodium (Colace) 100 mg EVERY 12 HOURS ORAL 06/08/17 21:00 07/08/17 20:59 UNV Heparin Sodium (Porcine) (Heparin 5000 units/ml) 5,000 units EVERY 12 HOURS SUBQ 06/08/17 21:00 07/08/17 20:59 UNV Ondansetron HCl (Zofran) 4 mg Q6H PRN IVP Nausea & Vomiting 06/08/17 17:45 07/08/17 17:44 UNV Piperacillin Sod/ Tazobactam Sod 2.25 gm/Sodium Chloride 55 ml @ 110 mls/hr Q8HR IVPB 06/08/17 17:45 06/15/17 17:44 UNV Polyethylene Glycol (Miralax) 17 gm HSPRN PRN ORAL Constipation 06/08/17 17:45 07/08/17 17:44 UNV Vancomycin HCl (Vanco rx to dose) 1 ea DAILY PRN MISC Per rx protocol 06/08/17 17:45 07/08/17 17:44 UNV Vancomycin HCl/ Dextrose 250 ml @ 125 mls/hr ONCE ONCE IVPB 06/08/17 16:45 06/08/17 18:44 06/08/17 17:09 Assessment/Plan Problem List: (1) Dry blisters L hallux and L 2nd toe (2) Necrotic wound of R ankle/foot Assessment & Plan: Open wound (3) Cellulitis of right ankle ICD Codes: L03.115 - Cellulitis of right lower limb; Z87.81 - Personal history of (healed) traumatic fracture SNOMED: 88040167 (4) RIGHT ANKLE FRACTURE (5) Status post ORIF of fracture of ankle ICD Codes: Z96.7 - Presence of other bone and tendon implants; Z87.81 - Personal history of (healed) traumatic fracture SNOMED: 089666725 (6) CKD (chronic kidney disease) stage 4, GFR 15-29 ml/min ICD Codes: N18.4 - Chronic kidney disease, stage 4 (severe) SNOMED: 434210412 (7) DM2 (diabetes mellitus, type 2) ICD Codes: E11.9 - Type 2 diabetes mellitus without complications SNOMED: 30635746 (8) Anemia of chronic disease ICD Codes: D63.8 - Anemia in other chronic diseases classified elsewhere SNOMED: 318081346 (9) HTN (hypertension) ICD Codes: I10 - Essential (primary) hypertension SNOMED: 61050598 (10) HLD (hyperlipidemia) ICD Codes: E78.5 - Hyperlipidemia, unspecified SNOMED: 57184005 (11) Hyperkalemia ICD Codes: E87.5 - Hyperkalemia SNOMED: 91666816 (12) Hyponatremia ICD Codes: E87.1 - Hypo-osmolality and hyponatremia SNOMED: 73717442 (13) Subungual hematoma left hallux (14) Dry blisters L hallux and L 2nd toe (15) Left heel unstageable pressure ulcer with black eschar adhered to wound bed Status: stable Assessment/Plan Admit inpt Ortho and ID consulted Ortho has consulted plastics for eval (06/08-) Wound care consult Empiric vanco and zosyn F/u R ankle x-ray Check b/l venous duplex Check b/l arterial duplex Podiatry consult Consider vascular eval Nephrology consulted s/p Kayexalate in ED Monitor BMP Check Fe panel, ferritin Trend CBC Pain control, bowel regimen Supportive care DVT Prophylaxis: SCD, HSQ Code Status: Full Hospital Classification Declaration: Based on this initial evaluation, and depending on the patient's clinical course, I anticipate that this patient will require hospitalization for 3-4days for wound care, IV abx and close respiratory /hemodynamic monitoring. Disposition: Once the patient is stable to leave the hospital, I anticipate the patient will likely be discharged to the following environment: back to SNF I spent 75 minutes on this patient's case, and 45 minutes were dedicated to counseling and/or care coordination. Discussed with patient/family, nursing staff, SW/CM, ortho, ID, regarding clinical status, treatment course, and disposition planning. Time of note may not reflect time of encounter. Celestine Stevens M.D. Jun 08, 2017 17:50
[2017-06-08 17:55] VITALS: BP 167/64
[2017-06-08] MEDS ORDERED: HydrALAZINE 25mg tab ORAL PRN (18:00)
[2017-06-08] MEDS ORDERED: Docusate 100mg cap ORAL SCH (18:00)
[2017-06-08] MEDS ORDERED: Norco 5mg/325mg tab ORAL PRN (18:00)
--- NOTE | 2017-06-08 20:39 | Infectious Diseases Prog Note ---
Assessment/Plan Assessment/Plan Full consult to follow: A) 1) right ankle infected wound with necrosis, ? ischemia, ? osteo, ? hardware infection 2) s/p right ankle/foot orif 3) dm, htn, renal failure 4) allergies - negative P) 1) vancomycin and zosyn 2) culture wound, arterial studies, check labs 3) ortho evaluation, ? debridement needed 4) d/w Dr. Sprague 5) thank you Subjective Allergies: Coded Allergies: No Known Allergies (Unverified , 05/11/17) Objective Vital Signs Last 24 Hour Vital Signs Date Time Temp Pulse Resp B/P (MAP) Pulse Ox O2 Delivery O2 Flow Rate FiO2 06/08/17 18:30 98.7 67 14 167/64 99 Room Air 06/08/17 17:55 67 14 167/64 99 Room Air 06/08/17 16:40 98.7 74 12 161/60 98 Room Air 06/08/17 16:14 98.4 74 22 153/67 98 Room Air Height (Feet): 5 Height (Inches): 4.00 Weight (Pounds): 200 Laboratory Tests Test 06/08/17 16:35 06/08/17 16:55 White Blood Count 7.8 K/UL (4.8-10.8) Red Blood Count 3.28 M/UL (4.20-5.40) L Hemoglobin 8.8 G/DL (12.0-16.0) L Hematocrit 29.5 % (37.0-47.0) L Mean Corpuscular Volume 90 FL (80-99) Mean Corpuscular Hemoglobin 26.9 PG (27.0-31.0) L Mean Corpuscular Hemoglobin Concent 29.9 G/DL (32.0-36.0) L Red Cell Distribution Width 15.1 % (11.6-14.8) H Platelet Count 277 K/UL (150-450) Mean Platelet Volume 6.7 FL (6.5-10.1) Neutrophils (%) (Auto) 68.8 % (45.0-75.0) Lymphocytes (%) (Auto) 17.5 % (20.0-45.0) L Monocytes (%) (Auto) 8.8 % (1.0-10.0) Eosinophils (%) (Auto) 3.9 % (0.0-3.0) H Basophils (%) (Auto) 0.9 % (0.0-2.0) Sodium Level 133 MMOL/L (136-145) L Potassium Level 5.8 MMOL/L (3.5-5.1) H Chloride Level 103 MMOL/L (98-107) Carbon Dioxide Level 22 MMOL/L (21-32) Anion Gap 8 mmol/L (5-15) Blood Urea Nitrogen 57 mg/dL (7-18) H Creatinine 3.1 MG/DL (0.55-1.30) H Estimat Glomerular Filtration Rate 18.1 mL/min (>60) Glucose Level 211 MG/DL (74-106) H Lactic Acid Level 1.10 mmol/L (0.66-2.22) Calcium Level 8.8 MG/DL (8.5-10.1) Total Bilirubin 0.1 MG/DL (0.2-1.0) L Aspartate Amino Transf (AST/SGOT) 13 U/L (15-37) L Alanine Aminotransferase (ALT/SGPT) 13 U/L (12-78) Alkaline Phosphatase 140 U/L (46-116) H Total Protein 6.4 G/DL (6.4-8.2) Albumin 1.8 G/DL (3.4-5.0) L Globulin 4.6 g/dL Albumin/Globulin Ratio 0.4 (1.0-2.7) L Urine Color Pale yellow Urine Appearance Slightly cloudy Urine pH 5 (4.5-8.0) Urine Specific [place] 1.010 (1.005-1.035) Urine Protein 3+ (NEGATIVE) H Urine Glucose (UA) 2+ (NEGATIVE) H Urine Ketones Negative (NEGATIVE) Urine Occult Blood 2+ (NEGATIVE) H Urine Nitrite Negative (NEGATIVE) Urine Bilirubin Negative (NEGATIVE) Urine Urobilinogen Normal MG/DL (0.0-1.0) Urine Leukocyte Esterase Negative (NEGATIVE) Urine RBC 2-4 /HPF (0 - 2) H Urine WBC 0-2 /HPF (0 - 2) Urine Squamous Epithelial Cells Few /LPF (NONE/OCC) Urine Amorphous Sediment Moderate /LPF (NONE) H Urine Bacteria Few /HPF (NONE) Current Medications Medications (Trade) Dose Ordered Sig/Andre Route PRN Reason Start Time Stop Time Status Last Admin Dose Admin Acetaminophen/ Hydrocodone Bitart ([place] 5/325) 1 tab Q4H PRN ORAL pain 4-10 06/08/17 18:00 06/15/17 17:59 Amlodipine Besylate (Norvasc) 5 mg BID ORAL 06/08/17 21:00 07/08/17 20:59 Carvedilol (Coreg) 6.25 mg EVERY 12 HOURS ORAL 06/08/17 21:00 07/08/17 20:59 Dextrose (Dextrose 50%) STAT PRN IV Hypoglycemia 06/08/17 17:45 07/08/17 17:44 Diphenhydramine HCl (Benadryl) 25 mg Q6H PRN ORAL Itching/Pruritis 06/08/17 17:45 07/08/17 17:44 Docusate Sodium (Colace) 100 mg EVERY 12 HOURS ORAL 06/08/17 21:00 07/08/17 20:59 Heparin Sodium (Porcine) (Heparin 5000 units/ml) 5,000 units EVERY 12 HOURS SUBQ 06/08/17 21:00 07/08/17 20:59 Hydralazine HCl (Apresoline) 25 mg Q4H PRN ORAL SBP>160 06/08/17 18:00 07/08/17 17:59 Nateglinide (Starlix) 60 mg TIAC ORAL 06/09/17 06:30 07/09/17 06:29 Ondansetron HCl (Zofran) 4 mg Q6H PRN IVP Nausea & Vomiting 06/08/17 17:45 07/08/17 17:44 Oxycodone HCl (OxyCONTIN) 20 mg EVERY 12 HOURS ORAL 06/08/17 21:00 06/15/17 20:59 Pantoprazole (Protonix) 40 mg DAILY ORAL 06/09/17 09:00 07/09/17 08:59 Piperacillin Sod/ Tazobactam Sod 3.375 gm/Sodium Chloride 55 ml @ 13.75 mls/ hr Q12HR IVPB 06/08/17 21:00 06/15/17 20:59 Polyethylene Glycol (Miralax) 17 gm DAILY ORAL 06/09/17 09:00 07/09/17 08:59 Polyethylene Glycol (Miralax) 17 gm HSPRN PRN ORAL Constipation 06/08/17 17:45 07/08/17 17:44 Sennosides (Senokot) 17.2 mg QHS ORAL 06/08/17 21:00 07/08/17 20:59 Vancomycin HCl (Vanco rx to dose) 1 ea DAILY PRN MISC Per rx protocol 06/08/17 17:45 07/08/17 17:44 Vancomycin HCl/ Dextrose 250 ml @ 166.667 mls/hr Q48H IVPB 06/10/17 17:00 06/15/17 16:59 OBIE DENISE Jun 08, 2017 20:39
[2017-06-08 20:43] VITALS: BP 151/70
[2017-06-08] MEDS: Carvedilol 6.25mg Tab ORAL SCH (21:00)
[2017-06-08] MEDS: oxyCONTIN 20mg tab ORAL SCH (21:00)
[2017-06-08] MEDS: Sennosides 8.6mg ORAL SCH (21:00)
[2017-06-08] MEDS: Docusate 100mg cap ORAL SCH (21:00)
[2017-06-08] MEDS: Piperacillin/Tazobactam 3.375 GM in NS 55 ML IVPB SCH (21:00)
[2017-06-08] MEDS: Heparin 5000 units/ml inj SUBQ SCH (21:00)
[2017-06-09] VITALS: BP 146/66
[2017-06-09 04:00] VITALS: BP 144/68
[2017-06-09] MEDS: NovoLOG Insulin Flexpen SUBQ SCH ×4 (06:04→21:00)
[2017-06-09] MEDS: Nateglinide 60mg tab ORAL SCH ×3 (07:30→16:53)
[2017-06-09 07:34] LABS: BASOPHILS % (AUTO) 0.6 % (0.0-2.0); EOSINOPHILS % (AUTO) 3.6 % (0.0-3.0); LYMPHOCYTES % (AUTO) 21.9 % (20.0-45.0); MEAN CORPUSCULAR HEMOGLOBIN 27.6 PG (27.0-31.0); MEAN CORPUSCULAR HGB CONC 31.8 G/DL (32.0-36.0); MEAN CORPUSCULAR VOLUME 87 FL (80-99); MEAN PLATELET VOLUME 6.9 FL (6.5-10.1); MONOCYTES % (AUTO) 9.5 % (1.0-10.0); NEUTROPHILS % (AUTO) 64.3 % (45.0-75.0); PLATELET COUNT 247 K/UL (150-450); RED BLOOD COUNT 3.07 M/UL (4.20-5.40); RED CELL DISTRIBUTION WIDTH 14.9 % (11.6-14.8); WHITE BLOOD COUNT 6.2 K/UL (4.8-10.8)
[2017-06-09 07:47] LABS: MAGNESIUM 1.8 MG/DL (1.8-2.4); PHOSPHORUS 4.6 MG/DL (2.5-4.9)
[2017-06-09 08:00] VITALS: BP 153/64
[2017-06-09 08:04] LABS: ANION GAP 7 mmol/L (5-15); CALCIUM 8.6 MG/DL (8.5-10.1); CARBON DIOXIDE 22 MMOL/L (21-32); CHLORIDE 105 MMOL/L (98-107); CREATININE 2.9 MG/DL (0.55-1.30); GLOMERULAR FILTRATION RATE 19.5 mL/min (>60); POTASSIUM 5.1 MMOL/L (3.5-5.1); SODIUM 134 MMOL/L (136-145)
[2017-06-09] MEDS: oxyCONTIN 20mg tab ORAL SCH (09:00)
[2017-06-09] MEDS: Carvedilol 6.25mg Tab ORAL SCH ×2 (09:19→21:01)
[2017-06-09] MEDS: Docusate 100mg cap ORAL SCH ×2 (09:19→16:54)
[2017-06-09] MEDS: Miralax 17gm pkt ORAL SCH (09:19)
[2017-06-09] MEDS: Heparin 5000 units/ml inj SUBQ SCH ×2 (09:21→21:02)
[2017-06-09] MEDS: Piperacillin/Tazobactam 3.375 GM in NS 55 ML IVPB SCH ×2 (11:58→21:06)
--- NOTE | 2017-06-09 12:35 | Consultation ---
Consult Note Consult Note 71 yo female with rt ankle ORIF 05/13 Seen in the office Tuesday, dressing changed and wounds poorly healing with necrotic tissue and significant LE swelling. admitted for plastic sx eval for likely debrid/skin grafting. vascular studies may be needed. Pt also has uncontrolled DM. poor wound healing was d/w at time of sx as a potential risk.DM is likely a factor in her poor wound healing. abx started Xray ordered to assess fracture status Assessment/Plan Rec Plastics involvement DM control and vascular studies. Dr. Kent called and will come to see the patient. continue abx as ordered FADUMO MCKOY Jun 09, 2017 12:35
--- NOTE | 2017-06-09 12:46 | Consultation ---
Consult Note Consult Note asked to eval for hyper kalemia and renal insufficiency 71-year-old female presents to ED for evaluation. Patient noted to have necrotic tissue over her right foot and ankle. Patient is status post trimal repair x3 weeks. Repaired here at [place]. Patient has been in rehab facility since. Patient denies any pain. Denies any fevers or chills. Was noticed by wound care that there is necrotic tissue and swelling to the right foot and ankle patient was brought here for evaluation. No other aggravating or leading factors. Denies any other associated symptoms Patient known to me from her previous admission Hx Cardiac Problems: Yes - irregular heartbeat Hx Hypertension: Yes Hx Diabetes: Yes interviewed examined data reviewed labs; Anemia High K Cr 3.1 essentially unchanged from 05/16/17 Assessment/Plan Assessment/Plan Renal Failure- with high K Mainly Chronic vs Acute Anemia Fx ankle 6+ Cellulitis DM HTN Plan: On Zosyn and Vanco avoid nephrotoxics- Urine studies EPO and IRON Last Renal JOYCELYN neg 2D echo results not found 2D echo STANLEY MIGUEL Jun 09, 2017 12:46
[2017-06-09 14:06] LABS: IRON 23 ug/dL (50-175); TOTAL IRON BINDING CAPACITY 240 ug/dL (250-450)
[2017-06-09 14:10] LABS: FERRITIN 561 NG/ML (8-388)
--- NOTE | 2017-06-09 14:16 | Consultation ---
Consult Note Assessment/Plan Podiatry Consult Dictated A/ 1) Dry Blisters left hallux and left 2nd toe 2) Subungual hematoma left hallux - dry 3) Edema 4) DM 5) Ankle fx s/p ORIF - infected, necrotic P/ 1) Arterial Ultz on last admission show doppler waveforms with severe ischemia of left, but no occlusions identified. Right side could not fully imaged due to surgical dressings. 2) Recommend Vascular consult prior to additional surgical procedures. D/W PMD 3) Will follow Thank you Hany Trimble DPM Jun 09, 2017 14:16
--- NOTE | 2017-06-09 15:25 | Diagnostic Imaging Report ---
Indication: Pain Technique: 2 views of the right right ankle Comparison: 05/13/2017 Findings: Again demonstrated there are lateral sideplate and screws in the right distal fibula, and 2 screws in the medial malleolus. However, there is evidence of reinjury. The fracture line of the distal fibula is now widened malalignment, the hardware is dense laterally, the medial malleolar fracture line is now displaced laterally, and the talus is angulated and displaced laterally. Overlying splint obscures bony detail. Previously demonstrated skin naina have been removed Impression: Evidence of reinjury, acuity indeterminate, of previously demonstrated ankle fracture, as described
[2017-06-09 16:07] VITALS: BP 162/71
--- NOTE | 2017-06-09 16:33 | Wound Care Consultation ---
Wound Assessment Wound Assessment #1: Wound Number: 1 Wound Present on Admission: Yes New Wound: No Status Change of Wound: No Wound Location Body Site Modif: left Wound Location Body Site: heel Wound Type: pressure ulcer Kalie Test: Does not Kalie Pressure Ulcer Stage: Unstageable Wound Thickness: Full Thickness Wound Length: 5.5 Wound Width: 4.5 Wound Depth: utd Percent of Wound Black/Brown: 100 Wound Drainage Description: Serosanguineous Wound Drainage Amount: Scant Wound Drainage Odor: None/Absent Tissue Surrounding Wound: Erythemic Wound General Appearance: Blackened Wound Assessment #2: Wound Number: 2 Wound Present on Admission: Yes New Wound: No Status Change of Wound: No Wound Location Body Site Modif: left, dorsal Wound Location Body Site: foot Wound Type: other - Ankle fx s/p ORIF infected,necrotic open wound Kalie Test: Does not Kalie Wound Thickness: Full Thickness Wound Length: 11.5 Wound Width: 11.5 Wound Depth: utd Percent of Wound Black/Brown: 100 Wound Drainage Description: Serosanguineous Wound Drainage Amount: Moderate Wound Drainage Odor: Mild Odor Tissue Surrounding Wound: Edematous Wound General Appearance: Blackened, Draining, Necrotic, Tendon Visible Wound Assessment #3: Wound Number: 3 Wound Present on Admission: Yes New Wound: No Status Change of Wound: No Wound Location Body Site Modif: left Wound Location Body Site: toe - 1st Wound Type: hematoma Kalie Test: Does not Kalie Wound Thickness: Full Thickness Wound Length: 3.5 Wound Width: 3.0 Wound Depth: utd Percent of Wound Purple/Maroon: 100 Wound Drainage Amount: None Wound Drainage Odor: None/Absent Tissue Surrounding Wound: Indurated Wound General Appearance: Reddened - maroon Wound Assessment #4: Wound Number: 4 Wound Present on Admission: Yes New Wound: No Status Change of Wound: No Wound Location Body Site Modif: left, anterior Wound Location Body Site: toe - 2nd Wound Type: hematoma - dry Kalie Test: Does not Kalie Wound Thickness: Full Thickness Wound Length: 0.3 Wound Width: 0.3 Wound Depth: utd Percent of Wound Black/Brown: 100 Wound Drainage Amount: None Tissue Surrounding Wound: Intact Wound General Appearance: Reddened Wound Comment #1 Left heel unstageable pressure ulcer with black eschar adhered to wound bed #2 Left dorsal foot with ankle fx s/p ORIF infected, necrotic open wound #3 Left 1st anterior toe with dry hematoma. #4 Left 2nd anterior toe with dry hematoma. Recommendation -Local wound care per protocol for unstageable on the left heel. -Please follow MD's order for left dorsal foot with ankle fx s/p ORIF infected, necrotic open wound -Offload both heels -Heel protector on both heels -Optimize nutrition -Turn and reposition -Keep clean and dry -Assess and f/u with MD for any changes MAURY LEMA RN Jun 09, 2017 16:33
--- NOTE | 2017-06-09 16:46 | Diagnostic Imaging Report ---
APPROVED REPORT CPT Code: 61847 Present Symptoms Lower Extremity Edema: Bilateral Comments: Right ankle wound and infection Technically difficult study due to vessel depth (mid-thigh area) and body habitus. BILATERAL: Imaging reveals a patent deep venous system bilaterally. There is no evidence of thrombus within the femoral, popliteal or tibial segments. The greater saphenous veins are also within normal limits. Doppler indicates normal spontaneous flow within these segments.
--- NOTE | 2017-06-09 16:47 | Diagnostic Imaging Report ---
APPROVED REPORT CPT Code: 11875 Symptoms Non-healing Ulcer : Right Comments: Infection right ankle Comments Technically difficult study due to vessel depth (mid-thigh area). RIGHT LEG: Common femoral artery waveform analysis is within normal limits at rest. Color flow duplex sonography reveals calcification throughout the superficial femoral and popliteal arteries. There is no evidence of significant stenosis or occlusion within this segment. The tibioperoneal trunk was not well visualized. The dorsalis pedis artery was not imaged due to the patients skin condition (open wound). The distal posterior and anterior tibial arteries are also calcified. The Doppler tibial artery waveform analysis is compatible with moderate to severe ischemia at rest. LEFT LEG: Common femoral artery waveform analysis is within normal limits at rest. Color flow duplex sonography reveals calcification throughout the superficial femoral and popliteal arteries. There is no evidence of significant stenosis or occlusion within this segment. The tibioperoneal trunk was not well visualized. The distal posterior, anterior and dorsalis pedis arteries are also calcified. The Doppler tibial artery waveform analysis is compatible with moderate to severe ischemia at rest.
--- NOTE | 2017-06-09 16:51 | Anethesia Preoperative Eval ---
Anesthesia Pre-op PMH/ROS General Date of Evaluation: Jun 09, 2017 Anesthesiologist: Rob ASA Score: ASA 3 Mallampati Score Class I : Soft palate, uvula, fauces, pillars visible Class II: Soft palate, uvula, fauces visible Class III: Soft palate, base of uvula visible Class IV: Only hard plate visible Mallampati Classification: Class III Surgeon: Katarzyna Diagnosis: Right ankle cellulitis Surgical Procedure: Right ankle revision of ORIF Anesthesia History: none Family History: no anesthesia problems Allergies: Coded Allergies: No Known Allergies (Unverified , 05/11/17) Medications: see eMAR Past Medical History Cardiovascular: Reports: HTN - BPs continue to be uncontrolled, other - HLD, Denies: CAD, IA, valve dz, arrhythmia Pulmonary: Denies: asthma, COPD, JUSTYN, other Gastrointestinal/Genitourinary: Reports: GERD, CRI - acute on chronic with borderline potassium, Denies: ESRD, other Neurologic/Psychiatric: Reports: depression/anxiety, Denies: dementia, CVA, TIA, other Endocrine: Reports: DM - uncontrolled, Denies: hypothyroidism, steroids, other HEENT: Reports: other - legally blind, Denies: cataract (L), cataract (R), glaucoma, [place] (L), [place] (R) Hematology/Immune: Reports: anemia - chronic, Denies: DVT, bleeding disorder, other Musculoskeletal/Integumentary: Reports: DJD, Denies: OA, RA, DDD, edema, other Other: obesity PSxH Narrative: Right ankle ORIF Anesthesia Pre-op Phys. Exam Physician Exam Last Vital Signs Date Time Temp Pulse Resp B/P (MAP) Pulse Ox O2 Delivery O2 Flow Rate FiO2 06/09/17 16:07 98.4 82 21 162/71 95 Room Air Constitutional: NAD Cardiovascular: RRR Respiratory: other - dimished breath sounds bilaterally Airway Exam Mallampati Score: Class III Neck: short, stiff ROM: limited Teeth: missing Dentures: no upper, no lower Anesthesia Pre-op A/P Labs Hematology Test 06/09/17 06:40 White Blood Count 6.2 K/UL (4.8-10.8) Red Blood Count 3.07 M/UL (4.20-5.40) L Hemoglobin 8.5 G/DL (12.0-16.0) L Hematocrit 26.7 % (37.0-47.0) L Mean Corpuscular Volume 87 FL (80-99) Mean Corpuscular Hemoglobin 27.6 PG (27.0-31.0) Mean Corpuscular Hemoglobin Concent 31.8 G/DL (32.0-36.0) L Red Cell Distribution Width 14.9 % (11.6-14.8) H Platelet Count 247 K/UL (150-450) Mean Platelet Volume 6.9 FL (6.5-10.1) Neutrophils (%) (Auto) 64.3 % (45.0-75.0) Lymphocytes (%) (Auto) 21.9 % (20.0-45.0) Monocytes (%) (Auto) 9.5 % (1.0-10.0) Eosinophils (%) (Auto) 3.6 % (0.0-3.0) H Basophils (%) (Auto) 0.6 % (0.0-2.0) Chemistry Test 06/09/17 06:40 Sodium Level 134 MMOL/L (136-145) L Potassium Level 5.1 MMOL/L (3.5-5.1) Chloride Level 105 MMOL/L (98-107) Carbon Dioxide Level 22 MMOL/L (21-32) Anion Gap 7 mmol/L (5-15) Blood Urea Nitrogen 57 mg/dL (7-18) H Creatinine 2.9 MG/DL (0.55-1.30) H Estimat Glomerular Filtration Rate 19.5 mL/min (>60) Glucose Level 202 MG/DL (74-106) H Calcium Level 8.6 MG/DL (8.5-10.1) Phosphorus Level 4.6 MG/DL (2.5-4.9) Magnesium Level 1.8 MG/DL (1.8-2.4) Iron Level 23 ug/dL (50-175) L Total Iron Binding Capacity 240 ug/dL (250-450) L Percent Iron Saturation 10 % (15-50) L Unsaturated Iron Binding 217 ug/dL (112-346) Ferritin 561 NG/ML (8-388) H Studies Pre-op Studies: echo - pending Risk Assessment & Plan Assessment: ASA III, will order repeat labs for AM as potassium is borderline, possible PRBC transfusion required, T&C 2 units ordered Plan: GA Status Change Before Surgery: No Pre-Antibiotics Drug: TBD HUGH BURNS M.D. Jun 09, 2017 16:51
[2017-06-09] MEDS ORDERED: Iron Sucrose 200 MG in NS 110 ML IVPB ONE (17:00)
--- NOTE | 2017-06-09 18:30 | Consultation ---
DATE OF CONSULTATION: 06/09/2017 CONSULTING PHYSICIAN: Hany Brown D.P.M. REQUESTING PHYSICIAN: Celestine Stevens MD REASON FOR CONSULTATION: Necrosis of the left foot, possible wound infection on the right ankle. HISTORY OF PRESENT ILLNESS: The patient is a 71-year-old female, who was admitted to [facility] on 06/08/2017 for cellulitis of the right lower extremity. The patient denies any fevers, chills, nausea, or vomiting. She has been at a rehabilitation facility after her surgical reduction of her right ankle fracture. There is a concern about decline of her wound on the right side and lesions on her left foot. PAST MEDICAL HISTORY: Significant for diabetes mellitus, hypertension, hyperlipidemia, legal blindness, chronic kidney disease, and anemia of chronic disease. PAST SURGICAL HISTORY: Significant for open reduction and internal fixation of the right ankle on last admission to [place]. MEDICATIONS: Per SEP and include vancomycin and Zosyn. ALLERGIES: She has no known drug allergies. SOCIAL HISTORY: Noncontributory. FAMILY HISTORY: Noncontributory. REVIEW OF SYSTEMS: HEENT: The patient denies any headaches or ringing in the ears. CARDIORESPIRATORY: The patient denies any chest pain or shortness of breath. GENITOURINARY: The patient denies any urgency, frequency, burning upon urination, or hematuria. GASTROINTESTINAL: The patient denies any constipation, diarrhea, or blood in stool. PHYSICAL EXAMINATION: VITAL SIGNS: Temperature is 99.0 degrees, pulse is 64, respirations 21, blood pressure is 153/64, and she is saturating 97% on room air. EXTREMITIES: Lower extremity physical exam, vascular, nonpalpable pedal pulses noted. Edema noted in the left lower extremity. Right side is bandaged. There is no cyanosis of the toes noted bilaterally. DERMATOLOGICAL: Again, right leg is bandaged. Left side appears essentially unchanged from last admission. She has a hyperpigmented lesion on the distal aspect of the left hallux and the left second toe with an ecchymosis subungually on the left hallux. She does have also ecchymotic changes to the left heel. NEUROLOGICAL: Protective threshold is diminished. LABORATORY AND DIAGNOSTIC DATA: White blood cell count is 6.2, hemoglobin and hematocrit is 8.5 and 26.7, and platelet count is 247. Potassium is 5.1, BUN is 57, creatinine is 2.9, glucose is 202. Albumin is 1.8. Lower extremity imaging, venous ultrasound on this admission shows patent deep venous system bilaterally. Arterial duplex on the last admission on 05/14/2017 shows left leg severe ischemia on Doppler waveforms, but no occlusions are identified. Right side, there are no occlusions noted in the thigh area, but the vessels could not be imaged below the knee because of surgical dressings. ASSESSMENT: 1. Deep tissue injury of the left heel. 2. Dry blisters of the left hallux and left second toe. 3. Subungual hematoma, left hallux, dry. 4. Edema. 5. Diabetes mellitus. 6. Ankle fracture, status post open reduction and internal fixation, infected, necrotic. PLAN: Arterial ultrasound on the last admission showed possible ischemic disease. We would recommend a vascular consult for further evaluation. Continue to offload the heel. Wound care as ordered. We will follow. Discussed the case with PMD regarding the patient's situation. Thank you for the courtesy of this consultation. Hany Brown D.P.M. DR: MIO JOB#: [id number] CC:
[2017-06-09 18:31] VITALS: BP 162/69
--- NOTE | 2017-06-09 19:15 | Consultation ---
History of Present Illness General Date patient seen: Jun 09, 2017 Time patient seen: 18:40 Chief Complaint: Skin Rash/Abscess Referring physician: Dr. Colón Present Illness HPI Asked by Dr. Colón to evaluate this pleasant 71yof with a right ankle and dorsal foot wound s/p ORIF of right distal fibula. Patient is legally blind due to diabetic retinopathy and fell at her home 1 month ago. She underwent ORIF on 05/13/17. She went to rehab facility and followed up wit her orthopedic surgeon several days ago. She had the splint removed and naina removed and appeared to be healing. Xray was performed and the reduction was healing well. She presented to [facility] 2 days later and was noted to have eschar of the dorsal proximal foot and ankle. Repeat xray showed that the plate on the distal fibula was displaced. Patient did state that she weight bared on the right foot and had significant pain when doing this. Allergies: Coded Allergies: No Known Allergies (Unverified , 05/11/17) Medication History Scheduled Amlodipine Besylate (Norvasc), 5 MG ORAL BID Carvedilol (Coreg), 6.25 MG ORAL EVERY 12 HOURS Docusate Sodium* (Colace*), 100 MG ORAL THREE TIMES A DAY Epoetin Marcus (Procrit), 10,000 UNITS SUBQ TUE-TUE-TUE Heparin Sod (Porcine) (Heparin Sodium*), 5,000 UNITS SUBQ EVERY 12 HOURS Insulin Aspart (Novolog Flexpen), 0 UNITS SUBQ AC+HS Nateglinide* (Starlix*), 60 MG ORAL TIAC Oxycodone Hcl Er* (Oxycontin*), 20 MG ORAL EVERY 12 HOURS Pantoprazole* (Protonix*), 40 MG ORAL DAILY Polyethylene Glycol 3350* (Miralax*), 17 GM ORAL DAILY Sennosides (Senna-Gen), 17.2 MG ORAL QHS Scheduled PRN Hydralazine Hcl* (Hydralazine Hcl*), 25 MG ORAL Q4H PRN Hydrocodone Bit/Acetaminophen 5-325* ([place] 5-325*), 1 TAB ORAL Q4H PRN Patient History History Provided By: Patient, Medical Record, PMD Healthcare decision maker N Resuscitation status Full Code Advanced Directive on File Review of Systems Constitutional: Reports: no symptoms Eye: Reports: see HPI ENT: Reports: no symptoms Respiratory: Reports: no symptoms Cardiovascular: Reports: no symptoms Genitourinary: Reports: no symptoms Skin: Reports: see HPI Psychiatric: Reports: no symptoms Physical Exam General Appearance: no apparent distress, alert Lines, tubes and drains: peripheral Respiratory/Chest: no respiratory distress Cardiovascular/Chest: other - Pedal pulse on the right foot not palpable due to swelling and eschar. Skin Exam: other - Right lateral ankle with healing surgical incision. Dorsal proximal foot and distal ankle with eschar that is adherent. No fluctuance and no crepitus. No erythema. Foot is warm and appears perfused. Last 24 Hour Vital Signs Date Time Temp Pulse Resp B/P (MAP) Pulse Ox O2 Delivery O2 Flow Rate FiO2 06/09/17 18:32 162/69 06/09/17 18:31 77 162/69 06/09/17 16:54 82 162/71 06/09/17 16:07 98.4 82 21 162/71 95 Room Air 06/09/17 09:20 64 153/64 06/09/17 09:19 64 153/64 06/09/17 08:00 99.0 64 21 153/64 97 Room Air 06/09/17 04:00 97.9 73 18 144/68 97 Room Air 06/09/17 00:00 97.8 71 18 146/66 97 Room Air 06/08/17 21:00 71 151/70 06/08/17 21:00 71 151/70 06/08/17 20:43 97.9 71 18 151/70 97 Room Air Intake and Output 06/09/17 06/10/17 19:00 07:00 Intake Total 295.00 ml Balance 295.00 ml Intake Oral 240 ml IV Total 55.00 ml # Voids 2 # Bowel Movements 1 Laboratory Tests Test 06/09/17 06:40 White Blood Count 6.2 K/UL (4.8-10.8) Red Blood Count 3.07 M/UL (4.20-5.40) L Hemoglobin 8.5 G/DL (12.0-16.0) L Hematocrit 26.7 % (37.0-47.0) L Mean Corpuscular Volume 87 FL (80-99) Mean Corpuscular Hemoglobin 27.6 PG (27.0-31.0) Mean Corpuscular Hemoglobin Concent 31.8 G/DL (32.0-36.0) L Red Cell Distribution Width 14.9 % (11.6-14.8) H Platelet Count 247 K/UL (150-450) Mean Platelet Volume 6.9 FL (6.5-10.1) Neutrophils (%) (Auto) 64.3 % (45.0-75.0) Lymphocytes (%) (Auto) 21.9 % (20.0-45.0) Monocytes (%) (Auto) 9.5 % (1.0-10.0) Eosinophils (%) (Auto) 3.6 % (0.0-3.0) H Basophils (%) (Auto) 0.6 % (0.0-2.0) Sodium Level 134 MMOL/L (136-145) L Potassium Level 5.1 MMOL/L (3.5-5.1) Chloride Level 105 MMOL/L (98-107) Carbon Dioxide Level 22 MMOL/L (21-32) Anion Gap 7 mmol/L (5-15) Blood Urea Nitrogen 57 mg/dL (7-18) H Creatinine 2.9 MG/DL (0.55-1.30) H Estimat Glomerular Filtration Rate 19.5 mL/min (>60) Glucose Level 202 MG/DL (74-106) H Calcium Level 8.6 MG/DL (8.5-10.1) Phosphorus Level 4.6 MG/DL (2.5-4.9) Magnesium Level 1.8 MG/DL (1.8-2.4) Iron Level 23 ug/dL (50-175) L Total Iron Binding Capacity 240 ug/dL (250-450) L Percent Iron Saturation 10 % (15-50) L Unsaturated Iron Binding 217 ug/dL (112-346) Ferritin 561 NG/ML (8-388) H Microbiology Date/Time Source Procedure Growth Status 06/08/17 21:00 Wound Gram Stain - Final Resulted 06/08/17 21:00 Wound Aerobic Culture Pending Resulted 06/08/17 21:00 Wound Anaerobic Culture Pending Resulted Height (Feet): 5 Height (Inches): 4.00 Weight (Pounds): 200 Medications Current Medications Medications (Trade) Dose Ordered Sig/Andre Route PRN Reason Start Time Stop Time Status Last Admin Dose Admin Acetaminophen/ Hydrocodone Bitart ([place] 5/325) 1 tab Q4H PRN ORAL pain 4-10 06/08/17 18:00 06/15/17 17:59 Amlodipine Besylate (Norvasc) 5 mg BID ORAL 06/08/17 21:00 07/08/17 20:59 06/09/17 16:54 Carvedilol (Coreg) 6.25 mg EVERY 12 HOURS ORAL 06/08/17 21:00 07/08/17 20:59 06/09/17 09:19 Dextrose (Dextrose 50%) STAT PRN IV Hypoglycemia 06/08/17 17:45 07/08/17 17:44 Diphenhydramine HCl (Benadryl) 25 mg Q6H PRN ORAL Itching/Pruritis 06/08/17 17:45 07/08/17 17:44 Docusate Sodium (Colace) 100 mg TID ORAL 06/09/17 18:00 07/08/17 17:59 06/09/17 16:54 Heparin Sodium (Porcine) (Heparin 5000 units/ml) 5,000 units EVERY 12 HOURS SUBQ 06/08/17 21:00 07/08/17 20:59 06/09/17 09:21 Hydralazine HCl (Apresoline) 25 mg Q4H PRN ORAL SBP>160 06/08/17 18:00 07/08/17 17:59 06/09/17 18:32 Insulin Aspart (NovoLOG) BEFORE MEALS AND HS SUBQ 06/09/17 06:30 07/09/17 06:29 06/09/17 16:55 Nateglinide (Starlix) 60 mg TIAC ORAL 06/09/17 07:30 07/09/17 07:29 06/09/17 16:53 Ondansetron HCl (Zofran) 4 mg Q6H PRN IVP Nausea & Vomiting 06/08/17 17:45 07/08/17 17:44 Oxycodone HCl (OxyCONTIN) 20 mg EVERY 12 HOURS ORAL 06/08/17 21:00 06/15/17 20:59 Pantoprazole (Protonix) 40 mg DAILY ORAL 06/09/17 09:00 07/09/17 08:59 06/09/17 09:20 Piperacillin Sod/ Tazobactam Sod 3.375 gm/Sodium Chloride 55 ml @ 13.75 mls/ hr Q12HR IVPB 06/08/17 21:00 06/15/17 20:59 06/09/17 11:58 Polyethylene Glycol (Miralax) 17 gm DAILY ORAL 06/09/17 09:00 07/09/17 08:59 06/09/17 09:19 Polyethylene Glycol (Miralax) 17 gm HSPRN PRN ORAL Constipation 06/08/17 17:45 07/08/17 17:44 Sennosides (Senokot) 17.2 mg QHS ORAL 06/08/17 21:00 07/08/17 20:59 06/08/17 21:00 Vancomycin HCl (Vanco rx to dose) 1 ea DAILY PRN MISC Per rx protocol 06/08/17 17:45 07/08/17 17:44 Vancomycin HCl/ Dextrose 250 ml @ 166.667 mls/hr Q48H IVPB 06/10/17 17:00 06/15/17 16:59 Assessment/Plan Status: stable Assessment/Plan Patient s/p ORIF of right distal fibula. She has adherent eschar over the proximal dorsal foot. No hardware is visible. Discussed with orthopedics and patient needs to have revision to the fracture due to the appearance of the hardware on the most recent xray. Patient also had arterial doppler study and likely has underlying peripheral vascular disease with inability to visualize TP trunk and distal tibial artery waveform on the right compatible with moderate to severe ischemia. Patient would benefit from vascular surgical consult to see if she needs intervention to increase arterial inflow. The eschar will eventually need to be debrided but it is not emergent. It appears the most emergent issue at this time is to revise the ORIF as the plate originally placed appears to have become displaced. The wound itself will need debridement and wound care with eventual closure either secondarily or with skin graft. To aid in this, patient should have tight diabetic control, nutritional intake, and monitoring for infection, which she clinically does not appear to have. Thank you. RYAN PRITCHARD Jun 09, 2017 19:15
--- NOTE | 2017-06-09 19:34 | Infectious Diseases Prog Note ---
Assessment/Plan Assessment/Plan Full consult to follow: A) 1) right ankle infected wound with necrosis, ? ischemia, ? osteo, ? hardware infection, pvd 2) s/p right ankle/foot orif 3) dm, htn, renal failure 4) allergies - negative P) 1) vancomycin and zosyn 2) culture wound, arterial studies noted, check labs 3) podiatry, plastics, ortho following, may need revision 4) d/w Dr. Sprague 5) watch labs Subjective Allergies: Coded Allergies: No Known Allergies (Unverified , 05/11/17) Objective Vital Signs Last 24 Hour Vital Signs Date Time Temp Pulse Resp B/P (MAP) Pulse Ox O2 Delivery O2 Flow Rate FiO2 06/09/17 18:32 162/69 06/09/17 18:31 77 162/69 06/09/17 16:54 82 162/71 06/09/17 16:07 98.4 82 21 162/71 95 Room Air 06/09/17 09:20 64 153/64 06/09/17 09:19 64 153/64 06/09/17 08:00 99.0 64 21 153/64 97 Room Air 06/09/17 04:00 97.9 73 18 144/68 97 Room Air 06/09/17 00:00 97.8 71 18 146/66 97 Room Air 06/08/17 21:00 71 151/70 06/08/17 21:00 71 151/70 06/08/17 20:43 97.9 71 18 151/70 97 Room Air Height (Feet): 5 Height (Inches): 4.00 Weight (Pounds): 200 Microbiology Date/Time Source Procedure Growth Status 06/08/17 21:00 Wound Gram Stain - Final Resulted 06/08/17 21:00 Wound Aerobic Culture Pending Resulted 06/08/17 21:00 Wound Anaerobic Culture Pending Resulted Laboratory Tests Test 06/09/17 06:40 White Blood Count 6.2 K/UL (4.8-10.8) Red Blood Count 3.07 M/UL (4.20-5.40) L Hemoglobin 8.5 G/DL (12.0-16.0) L Hematocrit 26.7 % (37.0-47.0) L Mean Corpuscular Volume 87 FL (80-99) Mean Corpuscular Hemoglobin 27.6 PG (27.0-31.0) Mean Corpuscular Hemoglobin Concent 31.8 G/DL (32.0-36.0) L Red Cell Distribution Width 14.9 % (11.6-14.8) H Platelet Count 247 K/UL (150-450) Mean Platelet Volume 6.9 FL (6.5-10.1) Neutrophils (%) (Auto) 64.3 % (45.0-75.0) Lymphocytes (%) (Auto) 21.9 % (20.0-45.0) Monocytes (%) (Auto) 9.5 % (1.0-10.0) Eosinophils (%) (Auto) 3.6 % (0.0-3.0) H Basophils (%) (Auto) 0.6 % (0.0-2.0) Sodium Level 134 MMOL/L (136-145) L Potassium Level 5.1 MMOL/L (3.5-5.1) Chloride Level 105 MMOL/L (98-107) Carbon Dioxide Level 22 MMOL/L (21-32) Anion Gap 7 mmol/L (5-15) Blood Urea Nitrogen 57 mg/dL (7-18) H Creatinine 2.9 MG/DL (0.55-1.30) H Estimat Glomerular Filtration Rate 19.5 mL/min (>60) Glucose Level 202 MG/DL (74-106) H Calcium Level 8.6 MG/DL (8.5-10.1) Phosphorus Level 4.6 MG/DL (2.5-4.9) Magnesium Level 1.8 MG/DL (1.8-2.4) Iron Level 23 ug/dL (50-175) L Total Iron Binding Capacity 240 ug/dL (250-450) L Percent Iron Saturation 10 % (15-50) L Unsaturated Iron Binding 217 ug/dL (112-346) Ferritin 561 NG/ML (8-388) H Current Medications Medications (Trade) Dose Ordered Sig/Andre Route PRN Reason Start Time Stop Time Status Last Admin Dose Admin Acetaminophen/ Hydrocodone Bitart ([place] 5/325) 1 tab Q4H PRN ORAL pain 4-10 06/08/17 18:00 06/15/17 17:59 Amlodipine Besylate (Norvasc) 5 mg BID ORAL 06/08/17 21:00 07/08/17 20:59 06/09/17 16:54 Carvedilol (Coreg) 6.25 mg EVERY 12 HOURS ORAL 06/08/17 21:00 07/08/17 20:59 06/09/17 09:19 Dextrose (Dextrose 50%) STAT PRN IV Hypoglycemia 06/08/17 17:45 07/08/17 17:44 Diphenhydramine HCl (Benadryl) 25 mg Q6H PRN ORAL Itching/Pruritis 06/08/17 17:45 07/08/17 17:44 Docusate Sodium (Colace) 100 mg TID ORAL 06/09/17 18:00 07/08/17 17:59 06/09/17 16:54 Heparin Sodium (Porcine) (Heparin 5000 units/ml) 5,000 units EVERY 12 HOURS SUBQ 06/08/17 21:00 07/08/17 20:59 06/09/17 09:21 Hydralazine HCl (Apresoline) 25 mg Q4H PRN ORAL SBP>160 06/08/17 18:00 07/08/17 17:59 06/09/17 18:32 Insulin Aspart (NovoLOG) BEFORE MEALS AND HS SUBQ 06/09/17 06:30 07/09/17 06:29 06/09/17 16:55 Nateglinide (Starlix) 60 mg TIAC ORAL 06/09/17 07:30 07/09/17 07:29 06/09/17 16:53 Ondansetron HCl (Zofran) 4 mg Q6H PRN IVP Nausea & Vomiting 06/08/17 17:45 07/08/17 17:44 Oxycodone HCl (OxyCONTIN) 20 mg EVERY 12 HOURS ORAL 06/08/17 21:00 06/15/17 20:59 Pantoprazole (Protonix) 40 mg DAILY ORAL 06/09/17 09:00 07/09/17 08:59 06/09/17 09:20 Piperacillin Sod/ Tazobactam Sod 3.375 gm/Sodium Chloride 55 ml @ 13.75 mls/ hr Q12HR IVPB 06/08/17 21:00 06/15/17 20:59 06/09/17 11:58 Polyethylene Glycol (Miralax) 17 gm DAILY ORAL 06/09/17 09:00 12/16/17 08:59 06/09/17 09:19 Polyethylene Glycol (Miralax) 17 gm HSPRN PRN ORAL Constipation 06/08/17 17:45 07/08/17 17:44 Sennosides (Senokot) 17.2 mg QHS ORAL 06/08/17 21:00 07/08/17 20:59 06/08/17 21:00 Vancomycin HCl (Vanco rx to dose) 1 ea DAILY PRN MISC Per rx protocol 06/08/17 17:45 07/08/17 17:44 Vancomycin HCl/ Dextrose 250 ml @ 166.667 mls/hr Q48H IVPB 06/10/17 17:00 06/15/17 16:59 OBIE DENISE Jun 09, 2017 19:34
--- NOTE | 2017-06-09 19:35 | Consultation ---
FADUMO MCKOY 06/09/17 1935: Consult Note Consult Note Have reviewed vascular studies and Xray and have spoken with the patient and nursing staff. Pt was seen on 06/06 in our office. Xray report from study taken at her facility on 06/02 noted intact hardware with anatomical joint alignment. At our office visit earlier this week, she was allowed to transition from splint to CAM walker and was allowed to begin progressive WB. On 06/08 CAM walker was provided by her facility and pt participated in light WB PT. Xray today shows failure of fibular hardware. Pt has uncontrolled DM and vascular ischemia according to recent studies- all have put pt at risk for poor wound and fracture healing which was discussed with her prior to her Sx being completed. Pt does require revision ORIF- which was discussed with her. She will need tight DM control and vascular involvement to assist in profusion and healing of fracture site and wounds. We appreciate Vascular and plastics involvement. Pt expressed concern and asked for potential transfer to [facility]. Certainly pt can go forward with transfer from our perspective. But she understands the urgency of getting this done. We have tentatively booked her for tomorrow 1: 30pm and will plan on moving forward with that unless pt is confirmed transferred. Again risks were discussed. RAYMOND HAMMER 06/10/17 1409: Consult Note Consult Note Patient was seen in the office and Xrays performed at the facility showed anatomic alignment. Patient had some Eschar over the foot. Rogers were in placed 4 weeks out. Cherelle removed, recommended CAM walker to protect the skin from pressure, and to allow TTWB and slowly progress. FADUMO MCKOY Jun 09, 2017 19:35 RAYMOND HAMMER Jun 10, 2017 14:09
--- NOTE | 2017-06-09 19:49 | General Progress Note ---
Assessment/Plan Problem List: (1) Dry blisters L hallux and L 2nd toe (2) Necrotic wound of R ankle/foot Assessment & Plan: Open wound (3) Cellulitis of right ankle ICD Codes: L03.115 - Cellulitis of right lower limb; Z87.81 - Personal history of (healed) traumatic fracture SNOMED: 35048983 (4) RIGHT ANKLE FRACTURE (5) Status post ORIF of fracture of ankle ICD Codes: Z96.7 - Presence of other bone and tendon implants; Z87.81 - Personal history of (healed) traumatic fracture SNOMED: 448879334 (6) CKD (chronic kidney disease) stage 4, GFR 15-29 ml/min ICD Codes: N18.4 - Chronic kidney disease, stage 4 (severe) SNOMED: 281767252 (7) DM2 (diabetes mellitus, type 2) ICD Codes: E11.9 - Type 2 diabetes mellitus without complications SNOMED: 00575253 (8) Anemia of chronic disease ICD Codes: D63.8 - Anemia in other chronic diseases classified elsewhere SNOMED: 986699331 (9) HTN (hypertension) ICD Codes: I10 - Essential (primary) hypertension SNOMED: 57775675 (10) HLD (hyperlipidemia) ICD Codes: E78.5 - Hyperlipidemia, unspecified SNOMED: 52239322 (11) Hyperkalemia ICD Codes: E87.5 - Hyperkalemia SNOMED: 89161062 (12) Hyponatremia ICD Codes: E87.1 - Hypo-osmolality and hyponatremia SNOMED: 55325831 (13) Subungual hematoma left hallux (14) Dry blisters L hallux and L 2nd toe (15) Left heel unstageable pressure ulcer with black eschar adhered to wound bed Status: stable Assessment/Plan Ortho and ID consulted, appreciate rec's Ortho has consulted plastics for eval, f/u rec's Empiric vanco and zosyn (06/08-) F/u R ankle x-ray--> shows re-fracture, ortho aware Check b/l venous duplex --> neg for DVT F/u b/l arterial duplex Podiatry consult, appreciate rec's Vascular surgery consulted Nephrology consulted, appreciate rec's s/p Kayexalate in ED Monitor BMP Check Fe panel, ferritin --> Fe def anemia, venofer ordered Trend CBC Cont SNF meds including starlix, coreg, amlodipine ILANA Pain control, bowel regimen Supportive care Cont wound care DVT Prophylaxis: SCD, HSQ Code Status: Full Hospital Classification Declaration: Based on this initial evaluation, and depending on the patient's clinical course, I anticipate that this patient will require hospitalization for 3-4 days for wound care, IV abx, vascular eval and close respiratory/hemodynamic monitoring. Disposition: Once the patient is stable to leave the hospital, I anticipate the patient will likely be discharged to the following environment: back to SNF I spent 45 minutes on this patient's case, and 25 minutes were dedicated to counseling and/or care coordination. Discussed with patient/family, nursing staff, SW/CM, ortho, ID, podiatry regarding clinical status, treatment course, and disposition planning. Time of note may not reflect time of encounter. Subjective Date patient seen: Jun 09, 2017 Time patient seen: 15:10 Constitutional: Reports: no symptoms HEENT: Reports: no symptoms Cardiovascular: Reports: no symptoms Respiratory: Reports: no symptoms Gastrointestinal/Abdominal: Reports: no symptoms Genitourinary: Reports: no symptoms Neurologic/Psychiatric: Reports: no symptoms Endocrine: Reports: no symptoms Hematologic/Lymphatic: Reports: no symptoms Allergies: Coded Allergies: No Known Allergies (Unverified , 05/11/17) All Systems: reviewed and negative except above Subjective Awaiting arterial duplex R ankle x-ray shows pt w/ re-fracture. D/w ortho Pt denies pain, SOB, f/c, n/v, d/c, chest pain, SOB Objective Last 24 Hour Vital Signs Date Time Temp Pulse Resp B/P (MAP) Pulse Ox O2 Delivery O2 Flow Rate FiO2 06/09/17 18:32 162/69 06/09/17 18:31 77 162/69 06/09/17 16:54 82 162/71 06/09/17 16:07 98.4 82 21 162/71 95 Room Air 06/09/17 09:20 64 153/64 06/09/17 09:19 64 153/64 06/09/17 08:00 99.0 64 21 153/64 97 Room Air 06/09/17 04:00 97.9 73 18 144/68 97 Room Air 06/09/17 00:00 97.8 71 18 146/66 97 Room Air 06/08/17 21:00 71 151/70 06/08/17 21:00 71 151/70 06/08/17 20:43 97.9 71 18 151/70 97 Room Air Intake and Output 06/09/17 06/10/17 19:00 07:00 Intake Total 535.00 ml Balance 535.00 ml Intake Oral 240 ml IV Total 295.00 ml # Voids 2 # Bowel Movements 1 Laboratory Tests 06/09/17 06:40: White Blood Count 6.2, Red Blood Count 3.07L, Hemoglobin 8.5L, Hematocrit 26.7L , Mean Corpuscular Volume 87, Mean Corpuscular Hemoglobin 27.6, Mean Corpuscular Hemoglobin Concent 31.8L, Red Cell Distribution Width 14.9H, Platelet Count 247, Mean Platelet Volume 6.9, Neutrophils (%) (Auto) 64.3, Lymphocytes (%) (Auto) 21.9, Monocytes (%) (Auto) 9.5, Eosinophils (%) (Auto) 3.6H, Basophils (%) (Auto) 0.6, Sodium Level 134L, Potassium Level 5.1, Chloride Level 105, Carbon Dioxide Level 22, Anion Gap 7, Blood Urea Nitrogen 57H, Creatinine 2.9H, Estimat Glomerular Filtration Rate 19.5, Glucose Level 202H, Calcium Level 8.6, Phosphorus Level 4.6, Magnesium Level 1.8, Iron Level 23L, Total Iron Binding Capacity 240L, Percent Iron Saturation 10L, Unsaturated Iron Binding 217, Ferritin 561H Height (Feet): 5 Height (Inches): 4.00 Weight (Pounds): 200 Objective General: alert, cooperative, no distress, appears stated age Head: normocephalic, without obvious abnormality, atraumatic Eyes: conjunctivae/corneas clear. PERRL, EOM's intact Throat: lips, mucosa, and tongue normal. MMM Neck: supple, symmetrical, trachea midline, and no JVD Lungs: clear to auscultation bilaterally Heart: regular rate and rhythm, S1, S2 normal, no murmur, click, rub or gallop Abdomen: soft, non-tender, non-distended, bowel sounds normal; no masses or organomegaly Extremities: 8 inch x 3 inch area of black tissue over R ankle/dorsum of R foot. swelling/induration noted. no discharge Pulses: 2+ and symmetric Skin: skin color, texture, turgor normal; no rashes or lesions Neurologic: 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, no focal deficits Celestine Stevens M.D. Jun 09, 2017 19:49
[2017-06-09 20:00] VITALS: BP 139/67
[2017-06-09] MEDS: Sennosides 8.6mg ORAL SCH (21:01)
[2017-06-10] VITALS: BP 134/70
[2017-06-10 04:00] VITALS: BP 119/54
[2017-06-10] MEDS: Nateglinide 60mg tab ORAL SCH ×3 (06:11→17:31)
[2017-06-10] MEDS: NovoLOG Insulin Flexpen SUBQ SCH ×6 (06:24→21:15)
[2017-06-10 07:13] LABS: MEAN CORPUSCULAR HEMOGLOBIN 27.8 PG (27.0-31.0); MEAN CORPUSCULAR HGB CONC 31.9 G/DL (32.0-36.0); MEAN CORPUSCULAR VOLUME 87 FL (80-99); MEAN PLATELET VOLUME 6.8 FL (6.5-10.1); PLATELET COUNT 232 K/UL (150-450); RED BLOOD COUNT 2.86 M/UL (4.20-5.40); RED CELL DISTRIBUTION WIDTH 14.6 % (11.6-14.8); WHITE BLOOD COUNT 7.3 K/UL (4.8-10.8)
[2017-06-10 07:38] LABS: HEMOGLOBIN A1C 11.5 % (4.3-6.0)
[2017-06-10 07:49] LABS: ANISOCYTOSIS 1+; BAND NEUTROPHILS % (MANUAL) 0 % (0-8); BASOPHILS % (MANUAL) 0 % (0-2); EOSINOPHILS % (MANUAL) 2 % (0-3); HYPOCHROMASIA 3+; LYMPHOCYTES % (MANUAL) 22 % (20-45); NEUTROPHILS % (MANUAL) 64 % (45-75); PLATELET ESTIMATE ADEQUATE; PLATELET MORPHOLOGY NORMAL; TOTAL CELLS COUNTED 100
[2017-06-10 07:52] LABS: FOLIC ACID 9.8 NG/ML (3.1-17.5)
[2017-06-10 08:00] VITALS: BP 134/63
[2017-06-10 08:18] LABS: ALANINE AMINOTRANSFERASE 19 U/L (12-78); ALBUMIN/GLOBULIN RATIO 0.4 (1.0-2.7); ANION GAP 10 mmol/L (5-15); ASPARTATE AMINO TRANSFERASE 21 U/L (15-37); CALCIUM 8.4 MG/DL (8.5-10.1); CARBON DIOXIDE 21 MMOL/L (21-32); CHLORIDE 103 MMOL/L (98-107); CHOLESTEROL 176 MG/DL (< 200); CHOLESTEROL/HDL RATIO 2.1 (3.3-4.4); CREATININE 2.9 MG/DL (0.55-1.30); GLOMERULAR FILTRATION RATE 19.5 mL/min (>60); MAGNESIUM 1.8 MG/DL (1.8-2.4); PHOSPHORUS 5.4 MG/DL (2.5-4.9); POTASSIUM 5.4 MMOL/L (3.5-5.1); SODIUM 134 MMOL/L (136-145); THYROID STIMULATING HORMONE 6.786 uiU/mL (0.360-3.740); URIC ACID 5.5 MG/DL (2.6-7.2)
--- NOTE | 2017-06-10 08:26 | Consultation ---
FADUMO MCKOY 06/10/17 0826: Consult Note Consult Note Pt refusing surgery today. She would like transfer to [facility]. Nsg/case management aware Assessment/Plan ankle fracture s/p ORIF 05/13 with vascular ischemia and uncontrolled DM resulting in poor wound and fracture healing 1. needs revision ORIF 2. likely needs vascular intervention to increase profusion 3. tight DM and nutritional control 4. Plastics for skin/wound debridement and likely grafting 5. pt requesting transfer to [facility]- will have case management help facilitate RAYMOND HAMMER 06/10/17 1410: Consult Note Consult Note Full consult dictated. FADUMO MCKOY Jun 10, 2017 08:26 RAYMOND HAMMER Jun 10, 2017 14:10
[2017-06-10] MEDS: Piperacillin/Tazobactam 3.375 GM in NS 55 ML IVPB SCH ×2 (10:13→22:15)
[2017-06-10] MEDS: Carvedilol 6.25mg Tab ORAL SCH ×2 (10:13→21:16)
[2017-06-10] MEDS: Docusate 100mg cap ORAL SCH ×3 (10:13→17:31)
[2017-06-10] MEDS: Heparin 5000 units/ml inj SUBQ SCH ×2 (10:15→21:16)
[2017-06-10] MEDS: Miralax 17gm pkt ORAL SCH (10:15)
[2017-06-10 12:00] VITALS: BP 140/62
--- NOTE | 2017-06-10 14:25 | Consultation ---
Consult Note Consult Note Full consult dictated. Patient would like to transfer to [facility] to higher level of care. I spoke with Dr. Tal Slade who will take over the care of this patient. RAYMOND Dennis Jun 10, 2017 14:25
--- NOTE | 2017-06-10 15:09 | Nephrology Progress Note ---
Assessment/Plan Problem List: (1) necrotic wound R ankle (2) CKD (chronic kidney disease) stage 4, GFR 15-29 ml/min (3) DM2 (diabetes mellitus, type 2) (4) HTN (hypertension) Assessment Renal Failure- with high K Cr 2.9 Mainly Chronic vs Acute Anemia Fx ankle 6+ Cellulitis DM HTN Plan Plan: On Zosyn and Vanco avoid nephrotoxics- Urine studies EPO and IRON Last Renal JOYCELYN neg 2D echo results not found 2D echo Subjective ROS Limited/Unobtainable: No Constitutional: Reports: malaise Objective Objective Last 24 Hour Vital Signs Date Time Temp Pulse Resp B/P (MAP) Pulse Ox O2 Delivery O2 Flow Rate FiO2 06/10/17 12:00 97.7 67 20 140/62 97 Room Air 06/10/17 10:13 78 134/63 06/10/17 10:13 78 134/63 06/10/17 08:00 98.4 78 20 134/63 97 Room Air 06/10/17 04:00 97.9 65 18 119/54 95 Room Air 06/10/17 00:00 98.1 79 18 134/70 97 Room Air 06/09/17 21:01 80 139/67 06/09/17 20:00 97.9 80 18 139/67 96 Room Air 06/09/17 18:32 162/69 06/09/17 18:31 77 162/69 06/09/17 16:54 82 162/71 06/09/17 16:07 98.4 82 21 162/71 95 Room Air Intake and Output 06/10/17 06/11/17 19:00 07:00 Intake Total 320 ml Balance 320 ml Intake Oral 320 ml # Voids 4 Laboratory Tests 06/10/17 05:45: White Blood Count 7.3, Red Blood Count 2.86L, Hemoglobin 7.9L, Hematocrit 24.9L , Mean Corpuscular Volume 87, Mean Corpuscular Hemoglobin 27.8, Mean Corpuscular Hemoglobin Concent 31.9L, Red Cell Distribution Width 14.6, Platelet Count 232, Mean Platelet Volume 6.8, Neutrophils (%) (Auto) , Lymphocytes (%) (Auto) , Monocytes (%) (Auto) , Eosinophils (%) (Auto) , Basophils (%) (Auto) , Differential Total Cells Counted 100, Neutrophils % ( Manual) 64, Lymphocytes % (Manual) 22, Monocytes % (Manual) 12H, Eosinophils % ( Manual) 2, Basophils % (Manual) 0, Band Neutrophils 0, Platelet Estimate Adequate, Platelet Morphology Normal, Hypochromasia 3+, Anisocytosis 1+, Sodium Level 134L, Potassium Level 5.4H, Chloride Level 103, Carbon Dioxide Level 21, Anion Gap 10, Blood Urea Nitrogen 58H, Creatinine 2.9H, Estimat Glomerular Filtration Rate 19.5, Glucose Level 121H, Hemoglobin A1c 11.5H, Uric Acid 5.5, Calcium Level 8.4L, Phosphorus Level 5.4H, Magnesium Level 1.8, Total Bilirubin 0.2, Gamma Glutamyl Transpeptidase 46, Aspartate Amino Transf (AST/SGOT) 21, Alanine Aminotransferase (ALT/SGPT) 19, Alkaline Phosphatase 125H, Total Creatine Kinase 39, Pro-B-Type Natriuretic Peptide 6733H, Total Protein 5.0L, Albumin 1.5L, Globulin 3.5, Albumin/Globulin Ratio 0.4L, Triglycerides Level 67 , Cholesterol Level 176, LDL Cholesterol 82, HDL Cholesterol 82H, Cholesterol/ HDL Ratio 2.1L, Vitamin B12 Level 346, Folate 9.8, Thyroid Stimulating Hormone ( TSH) 6.786H Height (Feet): 5 Height (Inches): 4.00 Weight (Pounds): 200 General Appearance: no apparent distress Respiratory/Chest: decreased breath sounds Abdomen: soft Extremities: other - no change STANLEY MIGUEL Jun 10, 2017 15:09
--- NOTE | 2017-06-10 15:55 | Infectious Diseases Prog Note ---
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 ischemia, ? osteo, ? hardware infection, pvd 2) s/p right ankle/distal fibula orif 3) dm, htn, renal failure, aocd, blindness, ckd, hyperlipidemia, anemia 4) allergies - negative, fh-nc, sh-negative, mar noted, notes and records noted 5) d/w RN P) 1) vancomycin and zosyn 2) culture wound final, check labs 3) podiatry, plastics, ortho following, may need revision 4) d/w Dr. Sprague and ortho 5) will need transfer to [facility] for further mgt 6) orders entered and noted Subjective Constitutional: Reports: fatigue, Denies: fever HEENT: Denies: congestion Respiratory: Denies: shortness of breath Cardiovascular: Denies: chest pain Gastrointestinal/Abdominal: Denies: nausea, vomiting, diarrhea Genitourinary: Reports: other - no curtis, Denies: dysuria, hematuria, frequency Neurologic: Denies: headache Psychiatric: Denies: depression Skin: Denies: rash Hematologic: Denies: bleeding Musculoskeletal: Reports: pain - right ankle/foot pain controlled Allergies: Coded Allergies: No Known Allergies (Unverified , 05/11/17) Objective Vital Signs Last 24 Hour Vital Signs Date Time Temp Pulse Resp B/P (MAP) Pulse Ox O2 Delivery O2 Flow Rate FiO2 06/10/17 12:00 97.7 67 20 140/62 97 Room Air 06/10/17 10:13 78 134/63 06/10/17 10:13 78 134/63 06/10/17 08:00 98.4 78 20 134/63 97 Room Air 06/10/17 04:00 97.9 65 18 119/54 95 Room Air 06/10/17 00:00 98.1 79 18 134/70 97 Room Air 06/09/17 21:01 80 139/67 06/09/17 20:00 97.9 80 18 139/67 96 Room Air 06/09/17 18:32 162/69 06/09/17 18:31 77 162/69 06/09/17 16:54 82 162/71 06/09/17 16:07 98.4 82 21 162/71 95 Room Air Height (Feet): 5 Height (Inches): 4.00 Weight (Pounds): 200 General Appearance: no acute distress HEENT: normocephalic, atraumatic, anicteric, mucous membranes moist, EOMI, pharynx normal, supple, no JVD Respiratory/Chest: lungs clear, normal breath sounds, no respiratory distress, no accessory muscle use Cardiovascular: normal rate, regular rhythm, no gallop/murmur, no JVD Abdomen: normal bowel sounds, soft, non tender, no organomegaly, non distended Genitourinary: other - no curtis Extremities: no cyanosis, other - no leg cellulitis, right foot covered Skin: no rash 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/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, alert, oriented x 3, responsive Lymphatic: no neck adenopathy Musculoskeletal: no effusion, other - right foot covered Objective x-ray - right ankle Impression: Evidence of reinjury, acuity indeterminate, of previously demonstrated ankle fracture, as described Microbiology Date/Time Source Procedure Growth Status 06/08/17 16:25 Blood Blood Culture - Preliminary NO GROWTH AFTER 24 HOURS Resulted 06/08/17 16:20 Blood Blood Culture - Preliminary NO GROWTH AFTER 24 HOURS Resulted 06/08/17 21:00 Wound Gram Stain - Final Resulted 06/08/17 21:00 Aerobic Culture - Preliminary Gram Negative Bacillus 1 Staphylococcus Sp Coag Neg Resulted 06/08/17 21:00 Wound Anaerobic Culture - Preliminary Resulted Laboratory Tests Test 06/10/17 05:45 White Blood Count 7.3 K/UL (4.8-10.8) Red Blood Count 2.86 M/UL (4.20-5.40) L Hemoglobin 7.9 G/DL (12.0-16.0) L Hematocrit 24.9 % (37.0-47.0) L Mean Corpuscular Volume 87 FL (80-99) Mean Corpuscular Hemoglobin 27.8 PG (27.0-31.0) Mean Corpuscular Hemoglobin Concent 31.9 G/DL (32.0-36.0) L Red Cell Distribution Width 14.6 % (11.6-14.8) Platelet Count 232 K/UL (150-450) Mean Platelet Volume 6.8 FL (6.5-10.1) Neutrophils (%) (Auto) % (45.0-75.0) Lymphocytes (%) (Auto) % (20.0-45.0) Monocytes (%) (Auto) % (1.0-10.0) Eosinophils (%) (Auto) % (0.0-3.0) Basophils (%) (Auto) % (0.0-2.0) Differential Total Cells Counted 100 Neutrophils % (Manual) 64 % (45-75) Lymphocytes % (Manual) 22 % (20-45) Monocytes % (Manual) 12 % (1-10) H Eosinophils % (Manual) 2 % (0-3) Basophils % (Manual) 0 % (0-2) Band Neutrophils 0 % (0-8) Platelet Estimate Adequate Platelet Morphology Normal Hypochromasia 3+ Anisocytosis 1+ Sodium Level 134 MMOL/L (136-145) L Potassium Level 5.4 MMOL/L (3.5-5.1) H Chloride Level 103 MMOL/L (98-107) Carbon Dioxide Level 21 MMOL/L (21-32) Anion Gap 10 mmol/L (5-15) Blood Urea Nitrogen 58 mg/dL (7-18) H Creatinine 2.9 MG/DL (0.55-1.30) H Estimat Glomerular Filtration Rate 19.5 mL/min (>60) Glucose Level 121 MG/DL (74-106) H Hemoglobin A1c 11.5 % (4.3-6.0) H Uric Acid 5.5 MG/DL (2.6-7.2) Calcium Level 8.4 MG/DL (8.5-10.1) L Phosphorus Level 5.4 MG/DL (2.5-4.9) H Magnesium Level 1.8 MG/DL (1.8-2.4) Total Bilirubin 0.2 MG/DL (0.2-1.0) Gamma Glutamyl Transpeptidase 46 U/L (5-85) Aspartate Amino Transf (AST/SGOT) 21 U/L (15-37) Alanine Aminotransferase (ALT/SGPT) 19 U/L (12-78) Alkaline Phosphatase 125 U/L (46-116) H Total Creatine Kinase 39 U/L (26-308) Pro-B-Type Natriuretic Peptide 6733 pg/mL (0-125) H Total Protein 5.0 G/DL (6.4-8.2) L Albumin 1.5 G/DL (3.4-5.0) L Globulin 3.5 g/dL Albumin/Globulin Ratio 0.4 (1.0-2.7) L Triglycerides Level 67 MG/DL (0-200) Cholesterol Level 176 MG/DL (< 200) LDL Cholesterol 82 mg/dL (<100) HDL Cholesterol 82 MG/DL (40-60) H Cholesterol/HDL Ratio 2.1 (3.3-4.4) L Vitamin B12 Level 346 PG/ML (193-986) Folate 9.8 NG/ML (3.1-17.5) Thyroid Stimulating Hormone (TSH) 6.786 uiU/mL (0.360-3.740) Current Medications Medications (Trade) Dose Ordered Sig/Andre Route PRN Reason Start Time Stop Time Status Last Admin Dose Admin Acetaminophen/ Hydrocodone Bitart ([place] 5/325) 1 tab Q4H PRN ORAL pain 4-10 06/08/17 18:00 06/15/17 17:59 Amlodipine Besylate (Norvasc) 5 mg BID ORAL 06/08/17 21:00 07/08/17 20:59 06/10/17 10:13 Carvedilol (Coreg) 6.25 mg EVERY 12 HOURS ORAL 06/08/17 21:00 07/08/17 20:59 06/10/17 10:13 Dextrose (Dextrose 50%) STAT PRN IV Hypoglycemia 06/08/17 17:45 07/08/17 17:44 Diphenhydramine HCl (Benadryl) 25 mg Q6H PRN ORAL Itching/Pruritis 06/08/17 17:45 07/08/17 17:44 Docusate Sodium (Colace) 100 mg TID ORAL 06/09/17 18:00 07/08/17 17:59 06/10/17 13:06 Heparin Sodium (Porcine) (Heparin 5000 units/ml) 5,000 units EVERY 12 HOURS SUBQ 06/08/17 21:00 07/08/17 20:59 06/10/17 10:15 Hydralazine HCl (Apresoline) 25 mg Q4H PRN ORAL SBP>160 06/08/17 18:00 07/08/17 17:59 06/09/17 18:32 Insulin Aspart (NovoLOG) BEFORE MEALS AND HS SUBQ 06/09/17 06:30 07/09/17 06:29 06/10/17 11:51 Nateglinide (Starlix) 60 mg TIAC ORAL 06/09/17 07:30 07/09/17 07:29 06/10/17 11:52 Ondansetron HCl (Zofran) 4 mg Q6H PRN IVP Nausea & Vomiting 06/08/17 17:45 07/08/17 17:44 Pantoprazole (Protonix) 40 mg DAILY ORAL 06/09/17 09:00 07/09/17 08:59 06/10/17 10:13 Piperacillin Sod/ Tazobactam Sod 3.375 gm/Sodium Chloride 55 ml @ 13.75 mls/ hr Q12HR IVPB 06/08/17 21:00 06/15/17 20:59 06/10/17 10:13 Polyethylene Glycol (Miralax) 17 gm DAILY ORAL 06/09/17 09:00 07/09/17 08:59 06/10/17 10:15 Polyethylene Glycol (Miralax) 17 gm HSPRN PRN ORAL Constipation 06/08/17 17:45 07/08/17 17:44 Sennosides (Senokot) 17.2 mg QHS ORAL 06/08/17 21:00 07/08/17 20:59 06/09/17 21:01 Vancomycin HCl (Vanco rx to dose) 1 ea DAILY PRN MISC Per rx protocol 06/08/17 17:45 07/08/17 17:44 Vancomycin HCl/ Dextrose 250 ml @ 166.667 mls/hr Q48H IVPB 06/10/17 17:00 06/15/17 16:59 OBIE DENISE Jun 10, 2017 15:55
[2017-06-10 16:00] VITALS: BP 137/65
[2017-06-10] MEDS ORDERED: Vancomycin 1250mg/D5W 250ml 250 ML IVPB SCH (17:00)
--- NOTE | 2017-06-10 18:50 | General Progress Note ---
Assessment/Plan Problem List: (1) Dry blisters L hallux and L 2nd toe (2) Necrotic wound of R ankle/foot Assessment & Plan: Open wound (3) Cellulitis of right ankle ICD Codes: L03.115 - Cellulitis of right lower limb; Z87.81 - Personal history of (healed) traumatic fracture SNOMED: 03674659 (4) RIGHT ANKLE FRACTURE (5) Status post ORIF of fracture of ankle ICD Codes: Z96.7 - Presence of other bone and tendon implants; Z87.81 - Personal history of (healed) traumatic fracture SNOMED: 822767032 (6) CKD (chronic kidney disease) stage 4, GFR 15-29 ml/min ICD Codes: N18.4 - Chronic kidney disease, stage 4 (severe) SNOMED: 561973907 (7) DM2 (diabetes mellitus, type 2) ICD Codes: E11.9 - Type 2 diabetes mellitus without complications SNOMED: 28831170 (8) Anemia of chronic disease ICD Codes: D63.8 - Anemia in other chronic diseases classified elsewhere SNOMED: 189523530 (9) HTN (hypertension) ICD Codes: I10 - Essential (primary) hypertension SNOMED: 56143580 (10) HLD (hyperlipidemia) ICD Codes: E78.5 - Hyperlipidemia, unspecified SNOMED: 41144050 (11) Hyperkalemia ICD Codes: E87.5 - Hyperkalemia SNOMED: 84380101 (12) Hyponatremia ICD Codes: E87.1 - Hypo-osmolality and hyponatremia SNOMED: 36254652 (13) Subungual hematoma left hallux (14) Dry blisters L hallux and L 2nd toe (15) Left heel unstageable pressure ulcer with black eschar adhered to wound bed Status: stable Assessment/Plan Ortho and ID consulted, appreciate rec's Ortho has consulted plastics for eval, f/u rec's Empiric vanco and zosyn (06/08-) F/u R ankle x-ray--> shows re-fracture, pt was NPO for OR 06/10/17 but she requests transfer to [facility] for further evaluation and mgmt Check b/l venous duplex --> neg for DVT F/u b/l arterial duplex --> mod to severe ischemia of b/l tibial arteries at rest Podiatry consult, rosy rec's Vascular surgery consulted Nephrology consulted, appreciate rec's s/p Kayexalate in ED Monitor BMP Check Fe panel, ferritin --> Fe def anemia EPO and venofer per renal Trend CBC Cont SNF meds including starlix, coreg, amlodipine ILANA Pain control, bowel regimen Supportive care Cont wound care DVT Prophylaxis: SCD, HSQ Code Status: Full Hospital Classification Declaration: Based on this initial evaluation, and depending on the patient's clinical course, I anticipate that this patient will require hospitalization for 3-4 days for wound care, IV abx, vascular eval and close respiratory/hemodynamic monitoring. Disposition: Once the patient is stable to leave the hospital, I anticipate the patient will likely be discharged to the following environment: transfer to [facility] for further mgmt I spent 43 minutes on this patient's case, and 24 minutes were dedicated to counseling and/or care coordination. Discussed with patient/family, nursing staff, SW/CM, ortho, ID, vascularpodiatry regarding clinical status, treatment course, and disposition planning. Time of note may not reflect time of encounter. Subjective Date patient seen: Jun 10, 2017 Time patient seen: 12:00 ROS Limited/Unobtainable: No Constitutional: Reports: no symptoms HEENT: Reports: no symptoms Cardiovascular: Reports: no symptoms Respiratory: Reports: no symptoms Gastrointestinal/Abdominal: Reports: no symptoms Genitourinary: Reports: no symptoms Neurologic/Psychiatric: Reports: no symptoms Endocrine: Reports: no symptoms Hematologic/Lymphatic: Reports: no symptoms Allergies: Coded Allergies: No Known Allergies (Unverified , 05/11/17) Subjective No acute o/n events Arterial duplex shows mod to severe ischemia of b/l tibial arteries at rest Pt was NPO for OR today per ortho but pt now requests transfer to [facility] so surgery was canceled Pt denies pain, SOB, f/c, n/v, d/c, chest pain, SOB Objective Last 24 Hour Vital Signs Date Time Temp Pulse Resp B/P (MAP) Pulse Ox O2 Delivery O2 Flow Rate FiO2 06/10/17 17:31 67 140/62 06/10/17 12:00 97.7 67 20 140/62 97 Room Air 06/10/17 10:13 78 134/63 06/10/17 10:13 78 134/63 06/10/17 08:00 98.4 78 20 134/63 97 Room Air 06/10/17 04:00 97.9 65 18 119/54 95 Room Air 06/10/17 00:00 98.1 79 18 134/70 97 Room Air 06/09/17 21:01 80 139/67 06/09/17 20:00 97.9 80 18 139/67 96 Room Air Intake and Output 06/10/17 06/11/17 19:00 07:00 Intake Total 320 ml Balance 320 ml Intake Oral 320 ml # Voids 4 Laboratory Tests 06/10/17 05:45: White Blood Count 7.3, Red Blood Count 2.86L, Hemoglobin 7.9L, Hematocrit 24.9L , Mean Corpuscular Volume 87, Mean Corpuscular Hemoglobin 27.8, Mean Corpuscular Hemoglobin Concent 31.9L, Red Cell Distribution Width 14.6, Platelet Count 232, Mean Platelet Volume 6.8, Neutrophils (%) (Auto) , Lymphocytes (%) (Auto) , Monocytes (%) (Auto) , Eosinophils (%) (Auto) , Basophils (%) (Auto) , Differential Total Cells Counted 100, Neutrophils % ( Manual) 64, Lymphocytes % (Manual) 22, Monocytes % (Manual) 12H, Eosinophils % ( Manual) 2, Basophils % (Manual) 0, Band Neutrophils 0, Platelet Estimate Adequate, Platelet Morphology Normal, Hypochromasia 3+, Anisocytosis 1+, Sodium Level 134L, Potassium Level 5.4H, Chloride Level 103, Carbon Dioxide Level 21, Anion Gap 10, Blood Urea Nitrogen 58H, Creatinine 2.9H, Estimat Glomerular Filtration Rate 19.5, Glucose Level 121H, Hemoglobin A1c 11.5H, Uric Acid 5.5, Calcium Level 8.4L, Phosphorus Level 5.4H, Magnesium Level 1.8, Total Bilirubin 0.2, Gamma Glutamyl Transpeptidase 46, Aspartate Amino Transf (AST/SGOT) 21, Alanine Aminotransferase (ALT/SGPT) 19, Alkaline Phosphatase 125H, Total Creatine Kinase 39, Pro-B-Type Natriuretic Peptide 6733H, Total Protein 5.0L, Albumin 1.5L, Globulin 3.5, Albumin/Globulin Ratio 0.4L, Triglycerides Level 67 , Cholesterol Level 176, LDL Cholesterol 82, HDL Cholesterol 82H, Cholesterol/ HDL Ratio 2.1L, Vitamin B12 Level 346, Folate 9.8, Thyroid Stimulating Hormone ( TSH) 6.786H Height (Feet): 5 Height (Inches): 4.00 Weight (Pounds): 200 Objective General: alert, cooperative, no distress, appears stated age Head: normocephalic, without obvious abnormality, atraumatic Eyes: conjunctivae/corneas clear. PERRL, EOM's intact Throat: lips, mucosa, and tongue normal. MMM Neck: supple, symmetrical, trachea midline, and no JVD Lungs: clear to auscultation bilaterally Heart: regular rate and rhythm, S1, S2 normal, no murmur, click, rub or gallop Abdomen: soft, non-tender, non-distended, bowel sounds normal; no masses or organomegaly Extremities: 8 inch x 3 inch area of black tissue over R ankle/dorsum of R foot. swelling/induration noted. no discharge Pulses: 2+ and symmetric Skin: skin color, texture, turgor normal; no rashes or lesions Neurologic: 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, no focal deficits Celestine Stevens M.D. Jun 10, 2017 18:50
[2017-06-10 20:00] VITALS: BP 144/70
[2017-06-10] MEDS ORDERED: Epogen (for ESRD on dialysis) SUBQ SCH (21:00)
[2017-06-10] MEDS: Iron Sucrose 100 MG in NS 55 ML IV SCH (21:12)
[2017-06-10] MEDS: Sennosides 8.6mg ORAL SCH (21:14)
[2017-06-11] VITALS: BP 130/58
--- NOTE | 2017-06-11 01:46 | Consultation ---
DATE OF CONSULTATION: 06/10/2017 ORTHOPEDIC CONSULTATION CONSULTING PHYSICIAN: Delmer Colón M.D. REFERRING PHYSICIAN: Pierre Coughlin M.D. REASON FOR CONSULTATION: Right ankle fracture. HISTORY OF PRESENT ILLNESS: The patient is well known to me. She is 71-year-old female with past medical history including severe uncontrolled diabetes as well as history of blindness who underwent right bimalleolar ankle fracture open reduction and internal fixation approximately 4-1/2 weeks ago. She is legally blind due to diabetic retinopathy and sustained a fall at that time. She underwent ORIF on 05/21/2017. She presented to rehabilitation facility and was placed in a splint. Subsequently, she came to my office on 06/06/2017 and was evaluated. At that time, she was noted to have the naina in place. There was some area of eschar formation over the dorsal aspect of the foot. However, some part of the foot was completely viable. The naina were in for about 3 weeks. At that time, the naina were removed. There was some bleeding from the wound, which indicates good blood circulation. The wound was Steri-Stripped and the patient was placed back in a splint to protect her skin from any pressure ulcers. She was asked to be placed in a Cam walker and we allowed to do some [id number] transfer with toe-touch protected weightbearing on the right lower extremity and to slowly progress to increased WB over the next few weeks. She was brought into the facility and subsequently, on 06/08/2017, she came back to ER with complaints of swelling and some wound dehiscence and some area of worsening in the course of the dorsal aspect of the foot. She was admitted to the hospital for possible debridement and to start antibiotics. X-rays in the hospital were obtained, which showed hardware failure and pulled out of the hardware out of the fibula on the lateral side. In getting the history from the patient, she states that she put her full weight on the right leg. She felt a pop in her right foot while she was at the facility after she had a Cam walker on. When she presented to our office for followup before the naina were removed, x-rays were obtained at the facility, which showed anatomical alignment of the hardware and fracture reduction. Past medical history, surgical history, medications, allergies, social history, and family history have not significantly changed since last admission, last visit. PHYSICAL EXAMINATION: Examination of the patient today reveals that there is a significant eschar over the dorsal aspect of the foot and over the medial side. There is a small area of lack of wound healing on the lateral side. There is no significant deformity of the ankle. There is no dislocation of the ankle. She is able to wiggle her toes. There is no distal ischemia and the toes are viable. There is no evidence of abscess formation. There is no erythema. Foot is warm, appears perfused. X-RAYS: X-ray obtained. There is evidence of one-third tubular plate that has indent the fracture site. The fracture is displaced. The medial malleolar screws appeared to be intact. IMPRESSION: Right ankle displacement of the fibular fracture with hardware failure and necrosis and delayed wound healing in a physiologically challenged patient. DISCUSSION: At this time, I had a discussion with the patient. I explained to her my findings. I explained to her she has significant vascular compromise. Since her admission, Doppler studies of the lower extremities and vascular studies have been done. There does not appear to be any significant proximal vessel disease, although there is distal vessel disease with calcified small vessels. These consistent with her uncontrolled diabetes. At the time of her admission initially, she had uncontrolled diabetes and she had to be in ICU, and her sugar had to be brought under control. Subsequently, the fracture was treated. Unfortunately, due to her poor physiology, the wound fell apart and she has had difficulty healing her wounds. Also, there has been a delayed healing of the fracture and she has been weight beared . She has put excessive pressure on the right leg, which has caused the fracture to fall apart. At this point, the patient requires revision open reduction and internal fixation with more rigid fixation. I recommend fibular plates and locking screws. I discussed this with her previously yesterday as well as today. She states that she has a hob machine operator at [facility] that she would like to get an opinion from. She would like her care to be transferred to higher level of care. Also Vascular Surgery has recommended a possible catheterization for better flow, and therefore, high-level care is suggested. At this time, the patient is currently on IV antibiotics. There is no evidence of fluctuance or abscess. There is no emergency to proceed with surgery. I will have vascular surgeon who evaluate this patient. Plastics most likely will need to do a debridement. The patient has also been seen by infectious disease specialist. At this time, she does not want to consent to surgery for the right leg and her care needs to be transferred to higher level of care. I have spoken with Dr. Tal Slade, the trauma specialist over at [facility], and he has accepted to take over the care of this patient. At this time, the patient requires revision ORIF of the ankle as well as significantly more protected weightbearing and nonweightbearing care at that time. Her wound needs to be debrided and Vascular Surgery and Plastics involvement is crucial. Vascular Surgery may need to evaluate her and help revascularization and perfusion distally. This was discussed with the patient. The patient understands and agrees. We will go ahead and get her set up for a transfer to a higher level of care due to a significant complicated ankle fracture that she has as well as the patient wishes. All questions were answered. At this time, we will be available to provide care to this patient should her condition change or should there not be a transfer to [facility] available. Delmer Colón M.D. DR: IRVING JOB#: [id number] CC: REKHA
--- NOTE | 2017-06-11 05:02 | Consultation ---
DATE OF CONSULTATION: 06/09/2017 INFECTIOUS DISEASES CONSULTATION ATTENDING PHYSICIAN: Pierre Coughlin M.D. I was asked by Dr. Sprague to see this patient as associate. REASON FOR CONSULTATION: Right ankle/foot infected wound. CHIEF COMPLAINT: The patient's chief complaint coming in to the hospital is right ankle/foot infected wound. HISTORY OF PRESENT ILLNESS: This is a very pleasant 71-year-old female, who had a recent surgery of the right ankle distal fibula ORIF and ankle ORIF for right ankle fracture. The patient clinically has an infected wound with necrotic changes. Infectious Diseases consultation was requested. The patient was placed on vancomycin and Zosyn. Case was discussed with Dr. Sprague and Dr. Colón, Orthopedic Surgery. Wound culture has been ordered. MAR was noted. Orders noted. Notes were reviewed. Case discussed with RN. The patient will be continued on vancomycin and Zosyn pending cultures and followup labs. The patient also is in renal failure at this time. PAST MEDICAL HISTORY: The patient has a past medical history of ORIF of the right ankle and distal fibula for right ankle fracture. She has a history of diabetes, hypertension, renal failure, chronic kidney disease, AOCD, history of blindness, history of hyperlipidemia, and history of anemia. MEDICATIONS: Upon reviewing the MAR, the patient is on the following medications. She is on vancomycin, Colace, Protonix, MiraLAX, Starlix, NovoLog insulin, heparin, Zosyn, vancomycin, amlodipine, carvedilol, Coreg, Senokot, Apresoline, [place], MiraLAX, Zofran, and Benadryl. Antibiotics, vancomycin and Zosyn. Outside medications were noted and reconciliated. ALLERGIES: No known drug allergies. SOCIAL HISTORY: Negative for smoking, alcohol, or drug abuse. FAMILY HISTORY: Noncontributory. Negative for exposure to tuberculosis or cancer. REVIEW OF SYSTEMS: CONSTITUTIONAL: The patient denies no Boyd. No central line. The patient has generalized weakness. No fevers, chills, night sweats, or weight loss. HEAD AND NECK: No head pain or neck pain. No thrush or dysphagia. CARDIAC: No chest pain. GASTROINTESTINAL: No nausea, vomiting, or diarrhea. GENITOURINARY: No dysuria or frequency. PULMONARY: No congestion, short of breath, or hemoptysis. SKIN: No rash or itching. EXTREMITIES: No extremity pain. NEUROLOGIC: No seizures. She has generalized weakness and also fatigue. PHYSICAL EXAMINATION: VITAL SIGNS: Temperature is 98.4 degrees, pulse 82, respiratory rate 21, blood pressure 162/71, and saturation is 95%. GENERAL: Loose, responsive, in no distress. HEENT: Oral exam, no thrush. Eye exam, no icterus. Normocephalic. NECK: Supple. No neck stiffness. HEART: Regular. No gallop or murmur. LUNGS: Clear bilaterally. No rhonchi or rales. ABDOMEN: Soft. Positive bowel sounds. Nontender. SKIN: No rash. MUSCULOSKELETAL: Knees without effusion. Legs are without cellulitis. PERIPHERAL VASCULAR: Right ankle/foot exam has necrotic wound, infection, and drainage. RECTAL: Deferred. GENITOURINARY: No Boyd. LINES: IV sites are without phlebitis. NEUROLOGIC: Generalized weakness, responsive. LABORATORY AND DIAGNOSTIC DATA: White count 6.2, hemoglobin 8.5, and platelet count is 247,000. The patient's creatinine is 2.9. Culture is pending. Urinalysis, leukocyte esterase is negative. Imaging studies, x-rays were reviewed. X-ray of the right ankle showed evidence of re-injury, acute intermediate. Arterial studies were ordered, which showed moderate to severe ischemia at rest of the right leg and left. Wound culture is pending. Blood cultures are pending, negative to date. ASSESSMENT AND PLAN: 1. The patient has right ankle/foot infected wound with necrosis. Continue vancomycin and Zosyn and check wound culture. Rule out underlying osteo and hardware infection. The patient is status post open reduction and internal fixation of distal fibula and ankle for right ankle fracture. Continue antibiotics, vancomycin and Zosyn. Follow up per Orthopedic Surgery and Podiatry and also Plastic Surgery. Watch creatinine and watch labs. Check wound culture. Continue vancomycin and Zosyn for now. 2. Acute kidney injury, chronic renal failure. 3. Diabetes. 4. Hypertension. 5. Blood sugar and blood pressure control by primary. 6. Anemia of chronic disease. 7. Blindness. 8. Chronic kidney disease. 9. Hyperlipidemia. 10. Anemia. 11. Allergies negative. 12. Social history negative. 13. Family history noncontributory. 14. MAR was noted. 15. Case discussed with RN. 16. Case discussed with Dr. Sprague, Orthopedic Surgery and the patient. 17. Continue treatment per primary consultants. 18. Skin care protocol. 19. Notes and records were reviewed. Thank you for this consultation. Melody Cortes M.D. DR: FREDDY JOB#: [id number] CC:
[2017-06-11] MEDS: Nateglinide 60mg tab ORAL SCH ×3 (06:13→16:56)
[2017-06-11] MEDS: NovoLOG Insulin Flexpen SUBQ SCH ×4 (06:14→20:54)
[2017-06-11 07:22] LABS: BASOPHILS % (AUTO) 0.8 % (0.0-2.0); EOSINOPHILS % (AUTO) 2.4 % (0.0-3.0); LYMPHOCYTES % (AUTO) 15.6 % (20.0-45.0); MEAN CORPUSCULAR HEMOGLOBIN 27.6 PG (27.0-31.0); MEAN CORPUSCULAR HGB CONC 31.9 G/DL (32.0-36.0); MEAN CORPUSCULAR VOLUME 87 FL (80-99); MEAN PLATELET VOLUME 7.3 FL (6.5-10.1); MONOCYTES % (AUTO) 12.2 % (1.0-10.0); NEUTROPHILS % (AUTO) 68.9 % (45.0-75.0); PLATELET COUNT 255 K/UL (150-450); RED BLOOD COUNT 3.21 M/UL (4.20-5.40); RED CELL DISTRIBUTION WIDTH 14.5 % (11.6-14.8)
[2017-06-11 07:35] LABS: ANION GAP 8 mmol/L (5-15); CARBON DIOXIDE 21 MMOL/L (21-32); CHLORIDE 101 MMOL/L (98-107); CREATININE 3.2 MG/DL (0.55-1.30); GLOMERULAR FILTRATION RATE 17.5 mL/min (>60); POTASSIUM 5.3 MMOL/L (3.5-5.1); SODIUM 130 MMOL/L (136-145)
[2017-06-11 08:30] VITALS: BP 146/62
[2017-06-11] MEDS: Docusate 100mg cap ORAL SCH ×3 (09:00→18:00)
[2017-06-11] MEDS: Miralax 17gm pkt ORAL SCH (09:00)
[2017-06-11] MEDS: Carvedilol 6.25mg Tab ORAL SCH ×2 (09:39→20:35)
[2017-06-11] MEDS: Heparin 5000 units/ml inj SUBQ SCH ×2 (09:40→20:55)
[2017-06-11] MEDS: Piperacillin/Tazobactam 3.375 GM in NS 55 ML IVPB SCH (09:41)
--- NOTE | 2017-06-11 11:46 | Nephrology Progress Note ---
Assessment/Plan Problem List: (1) necrotic wound R ankle (2) CKD (chronic kidney disease) stage 4, GFR 15-29 ml/min (3) DM2 (diabetes mellitus, type 2) (4) HTN (hypertension) Assessment Renal Failure- with high K Cr 3.2 Mainly Chronic vs Acute Anemia Fx ankle 6+ Cellulitis DM HTN Plan Plan: Kayexelate- Vanco level On Zosyn and Vanco avoid nephrotoxics- Urine studies EPO and IRON Last Renal JOYCELYN neg 2D echo results not found Subjective ROS Limited/Unobtainable: No Constitutional: Reports: malaise, weakness Objective Objective Last 24 Hour Vital Signs Date Time Temp Pulse Resp B/P (MAP) Pulse Ox O2 Delivery O2 Flow Rate FiO2 06/11/17 09:39 69 147/63 06/11/17 09:39 69 147/63 06/11/17 08:30 97.0 70 20 146/62 97 Room Air 06/11/17 00:00 99.1 68 20 130/58 95 Room Air 06/10/17 21:16 67 144/70 06/10/17 20:00 98.2 67 20 144/70 95 Room Air 06/10/17 17:31 67 140/62 06/10/17 16:00 97.5 70 20 137/65 97 Room Air 06/10/17 12:00 97.7 67 20 140/62 97 Room Air Intake and Output 06/11/17 06/12/17 19:00 07:00 Intake Total 360 ml Balance 360 ml Intake Oral 360 ml # Voids 2 # Bowel Movements 2 Laboratory Tests 06/10/17 15:30: Urine Eosinophils None seen 06/11/17 05:25: Urine Eosinophils Occasional, Urine Random Sodium 43 06/11/17 05:45: White Blood Count 8.0, Red Blood Count 3.21L, Hemoglobin 8.9L, Hematocrit 27.8L , Mean Corpuscular Volume 87, Mean Corpuscular Hemoglobin 27.6, Mean Corpuscular Hemoglobin Concent 31.9L, Red Cell Distribution Width 14.5, Platelet Count 255, Mean Platelet Volume 7.3, Neutrophils (%) (Auto) 68.9, Lymphocytes (%) (Auto) 15.6L, Monocytes (%) (Auto) 12.2H, Eosinophils (%) (Auto ) 2.4, Basophils (%) (Auto) 0.8, Sodium Level 130L, Potassium Level 5.3H, Chloride Level 101, Carbon Dioxide Level 21, Anion Gap 8, Blood Urea Nitrogen 58H, Creatinine 3.2H, Estimat Glomerular Filtration Rate 17.5, Glucose Level 147H, Calcium Level 9.0 Height (Feet): 5 Height (Inches): 4.00 Weight (Pounds): 200 General Appearance: no apparent distress Respiratory/Chest: decreased breath sounds Objective PE not changed STANLEY MIGUEL Jun 11, 2017 11:46
[2017-06-11 12:08] VITALS: BP 147/63
[2017-06-11] MEDS ORDERED: Sodium Polystyrene Sulfonate 15gm Powder ORAL ONE (13:00)
[2017-06-11] MEDS: metroNIDAZOLE 500mg tab ORAL SCH ×3 (14:27→21:00)
--- NOTE | 2017-06-11 14:35 | Infectious Diseases Prog Note ---
Assessment/Plan Assessment/Plan A) 1) klebsiella/?header up/likely polymicrobial right ankle infected wound with necrosis, ? ischemia, ? osteo, ? hardware infection, pvd 2) s/p right ankle/distal fibula orif 3) dm, htn, renal failure, aocd, blindness, ckd, hyperlipidemia, anemia 4) allergies - negative, fh-nc, sh-negative, mar noted, notes and records noted 5) d/w RN P) 1) change to daptomycin, cefepime and flagyl (discontinue vancomycin secondary to renal failure) 2) culture wound final, check labs 3) podiatry, plastics, ortho following, may need revision 4) d/w Dr. Sprague and ortho 5) await transfer to [facility] for further mgt 6) orders entered and noted Subjective Constitutional: Denies: fever HEENT: Denies: congestion Respiratory: Denies: shortness of breath Cardiovascular: Denies: chest pain Gastrointestinal/Abdominal: Denies: nausea, vomiting, diarrhea Genitourinary: Denies: dysuria, hematuria Neurologic: Denies: headache Psychiatric: Denies: depression Skin: Denies: rash Endocrine: Reports: no symptoms Hematologic: Denies: bleeding Musculoskeletal: Reports: pain - pain controlled Allergies: Coded Allergies: No Known Allergies (Unverified , 05/11/17) Objective Vital Signs Last 24 Hour Vital Signs Date Time Temp Pulse Resp B/P (MAP) Pulse Ox O2 Delivery O2 Flow Rate FiO2 06/11/17 12:08 97.0 67 20 147/63 98 Room Air 06/11/17 09:39 69 147/63 06/11/17 09:39 69 147/63 06/11/17 08:30 97.0 70 20 146/62 97 Room Air 06/11/17 00:00 99.1 68 20 130/58 95 Room Air 06/10/17 21:16 67 144/70 06/10/17 20:00 98.2 67 20 144/70 95 Room Air 06/10/17 17:31 67 140/62 06/10/17 16:00 97.5 70 20 137/65 97 Room Air Height (Feet): 5 Height (Inches): 4.00 Weight (Pounds): 200 General Appearance: no acute distress HEENT: normocephalic, atraumatic, anicteric, mucous membranes moist, EOMI, pharynx normal, supple, no JVD Respiratory/Chest: lungs clear, normal breath sounds, no respiratory distress, no accessory muscle use Cardiovascular: normal rate, regular rhythm, no gallop/murmur, no JVD Abdomen: normal bowel sounds, soft, non tender, no organomegaly, non distended Genitourinary: other - no curtis Extremities: no cyanosis, other - right akle covered Skin: no rash Neurologic/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, alert, oriented x 3, responsive Lymphatic: no neck adenopathy Musculoskeletal: no effusion Objective x-ray - right ankle Impression: Evidence of reinjury, acuity indeterminate, of previously demonstrated ankle fracture, as described Microbiology Date/Time Source Procedure Growth Status 06/08/17 16:25 Blood Blood Culture - Preliminary NO GROWTH AFTER 48 HOURS Resulted 06/08/17 16:20 Blood Blood Culture - Preliminary NO GROWTH AFTER 48 HOURS Resulted 06/08/17 21:00 Wound Gram Stain - Final Resulted 06/08/17 21:00 Aerobic Culture - Preliminary Klebsiella Pneumoniae Staphylococcus Sp Coag Neg Resulted 06/08/17 21:00 Wound Anaerobic Culture - Preliminary NO ANAEROBES ISOLATED Resulted 06/08/17 15:00 Nasal Nares MRSA Culture - Final NO METHICILLIN RESISTANT STAPH AUREUS... Complete 06/08/17 15:00 Rectum VRE Culture - Final NO VANCOMYCIN RESISTANT ENTEROCOCCUS ... Complete Laboratory Tests Test 06/10/17 15:30 06/11/17 05:24 06/11/17 05:25 06/11/17 05:45 Urine Eosinophils None seen Occasional Free Thyroxine 0.93 NG/DL (0.10-1.46) Urine Random Sodium 43 MEQ/L (20-110) White Blood Count 8.0 K/UL (4.8-10.8) Red Blood Count 3.21 M/UL (4.20-5.40) L Hemoglobin 8.9 G/DL (12.0-16.0) L Hematocrit 27.8 % (37.0-47.0) L Mean Corpuscular Volume 87 FL (80-99) Mean Corpuscular Hemoglobin 27.6 PG (27.0-31.0) Mean Corpuscular Hemoglobin Concent 31.9 G/DL (32.0-36.0) L Red Cell Distribution Width 14.5 % (11.6-14.8) Platelet Count 255 K/UL (150-450) Mean Platelet Volume 7.3 FL (6.5-10.1) Neutrophils (%) (Auto) 68.9 % (45.0-75.0) Lymphocytes (%) (Auto) 15.6 % (20.0-45.0) L Monocytes (%) (Auto) 12.2 % (1.0-10.0) H Eosinophils (%) (Auto) 2.4 % (0.0-3.0) Basophils (%) (Auto) 0.8 % (0.0-2.0) Sodium Level 130 MMOL/L (136-145) L Potassium Level 5.3 MMOL/L (3.5-5.1) H Chloride Level 101 MMOL/L (98-107) Carbon Dioxide Level 21 MMOL/L (21-32) Anion Gap 8 mmol/L (5-15) Blood Urea Nitrogen 58 mg/dL (7-18) H Creatinine 3.2 MG/DL (0.55-1.30) H Estimat Glomerular Filtration Rate 17.5 mL/min (>60) Glucose Level 147 MG/DL (74-106) H Calcium Level 9.0 MG/DL (8.5-10.1) Current Medications Medications (Trade) Dose Ordered Sig/Andre Route PRN Reason Start Time Stop Time Status Last Admin Dose Admin Acetaminophen/ Hydrocodone Bitart (Savage 5/325) 1 tab Q4H PRN ORAL pain 4-10 06/08/17 18:00 06/15/17 17:59 Amlodipine Besylate (Norvasc) 5 mg BID ORAL 06/08/17 21:00 07/08/17 20:59 06/11/17 09:39 Carvedilol (Coreg) 6.25 mg EVERY 12 HOURS ORAL 06/08/17 21:00 07/08/17 20:59 06/11/17 09:39 Cefepime HCl 2 gm/ Dextrose 100 ml @ 200 mls/hr Q24H IVPB 06/11/17 15:00 06/18/17 14:59 Daptomycin 500 mg/ Sodium Chloride 50 ml @ 100 mls/hr Q48H IV 06/11/17 16:00 06/18/17 15:59 Dextrose (Dextrose 50%) STAT PRN IV Hypoglycemia 06/08/17 17:45 07/08/17 17:44 Diphenhydramine HCl (Benadryl) 25 mg Q6H PRN ORAL Itching/Pruritis 06/08/17 17:45 07/08/17 17:44 Docusate Sodium (Colace) 100 mg TID ORAL 06/09/17 18:00 07/08/17 17:59 06/10/17 17:31 Epoetin Marcus (Procrit (for non ESRD use)) 10,000 units TUE-TUE-TUE SUBQ 06/13/17 21:00 07/13/17 20:59 Heparin Sodium (Porcine) (Heparin 5000 units/ml) 5,000 units EVERY 12 HOURS SUBQ 06/08/17 21:00 07/08/17 20:59 06/11/17 09:40 Hydralazine HCl (Apresoline) 25 mg Q4H PRN ORAL SBP>160 06/08/17 18:00 07/08/17 17:59 06/09/17 18:32 Insulin Aspart (NovoLOG) BEFORE MEALS AND HS SUBQ 06/09/17 06:30 07/09/17 06:29 06/11/17 12:14 Iron Sucrose 100 mg/Sodium Chloride 60 ml @ 240 mls/hr BEDTIME IV 06/10/17 21:00 06/14/17 21:14 06/10/17 21:12 Metronidazole (Flagyl) 500 mg EVERY 8 HOURS ORAL 06/11/17 14:30 06/18/17 14:29 Nateglinide (Starlix) 60 mg TIAC ORAL 06/09/17 07:30 07/09/17 07:29 06/11/17 12:11 Ondansetron HCl (Zofran) 4 mg Q6H PRN IVP Nausea & Vomiting 06/08/17 17:45 07/08/17 17:44 Pantoprazole (Protonix) 40 mg DAILY ORAL 06/09/17 09:00 07/09/17 08:59 06/11/17 09:40 Polyethylene Glycol (Miralax) 17 gm DAILY ORAL 06/09/17 09:00 07/09/17 08:59 06/10/17 10:15 Polyethylene Glycol (Miralax) 17 gm HSPRN PRN ORAL Constipation 06/08/17 17:45 12/15/17 17:44 Sennosides (Senokot) 17.2 mg QHS ORAL 06/08/17 21:00 07/08/17 20:59 06/10/17 21:14 OBIE DENISE Jun 11, 2017 14:35
[2017-06-11 15:31] VITALS: BP 150/63
[2017-06-11] MEDS ORDERED: DAPTOmycin 500 MG in NS 50 ML IV SCH (16:00)
[2017-06-11 19:11] VITALS: BP 152/64
[2017-06-11] MEDS: Sennosides 8.6mg ORAL SCH (20:08)
[2017-06-11] MEDS: Iron Sucrose 100 MG in NS 55 ML IV SCH (20:35)
[2017-06-11] MEDS ORDERED: Tubing IV Secondary IV ONE (22:08)
[2017-06-11] MEDS ORDERED: NS 500ML ONE (22:08)
[2017-06-11 23:26] VITALS: BP 120/55
--- NOTE | 2017-06-11 23:46 | General Progress Note ---
Assessment/Plan Problem List: (1) Dry blisters L hallux and L 2nd toe (2) Necrotic wound of R ankle/foot Assessment & Plan: Open wound (3) Cellulitis of right ankle ICD Codes: L03.115 - Cellulitis of right lower limb; Z87.81 - Personal history of (healed) traumatic fracture SNOMED: 04478325 (4) RIGHT ANKLE FRACTURE (5) Status post ORIF of fracture of ankle ICD Codes: Z96.7 - Presence of other bone and tendon implants; Z87.81 - Personal history of (healed) traumatic fracture SNOMED: 246476501 (6) CKD (chronic kidney disease) stage 4, GFR 15-29 ml/min ICD Codes: N18.4 - Chronic kidney disease, stage 4 (severe) SNOMED: 719323902 (7) DM2 (diabetes mellitus, type 2) ICD Codes: E11.9 - Type 2 diabetes mellitus without complications SNOMED: 92039486 (8) Anemia of chronic disease ICD Codes: D63.8 - Anemia in other chronic diseases classified elsewhere SNOMED: 021715688 (9) HTN (hypertension) ICD Codes: I10 - Essential (primary) hypertension SNOMED: 32820250 (10) HLD (hyperlipidemia) ICD Codes: E78.5 - Hyperlipidemia, unspecified SNOMED: 45876491 (11) Hyperkalemia ICD Codes: E87.5 - Hyperkalemia SNOMED: 26643789 (12) Hyponatremia ICD Codes: E87.1 - Hypo-osmolality and hyponatremia SNOMED: 18592937 (13) Subungual hematoma left hallux (14) Dry blisters L hallux and L 2nd toe (15) Left heel unstageable pressure ulcer with black eschar adhered to wound bed Status: stable Assessment/Plan Ortho and ID consulted, appreciate rec's Ortho has consulted plastics for eval, f/u rec's Empiric dapto, cefepime and flagyl (06/11-) s/p vanco and zosyn (06/08-06/11) F/u R ankle x-ray--> shows re-fracture, pt was NPO for OR 06/10/17 but she requests transfer to [facility] for further evaluation and mgmt Check b/l venous duplex --> neg for DVT F/u b/l arterial duplex --> mod to severe ischemia of b/l tibial arteries at rest Podiatry consult, appreciate rec's Vascular surgery consulted Nephrology consulted, appreciate rec's s/p Kayexalate in ED Monitor BMP Check Fe panel, ferritin --> Fe def anemia EPO and venofer per renal Trend CBC Cont SNF meds including starlix, coreg, amlodipine ILANA Pain control, bowel regimen Supportive care Cont wound care Awaiting transfer to [facility] DVT Prophylaxis: SCD, HSQ Code Status: Full Hospital Classification Declaration: Based on this initial evaluation, and depending on the patient's clinical course, I anticipate that this patient will require hospitalization for 3-4 days for wound care, IV abx, vascular eval and close respiratory/hemodynamic monitoring. Disposition: Once the patient is stable to leave the hospital, I anticipate the patient will likely be discharged to the following environment: transfer to [facility] for further mgmt I spent 46 minutes on this patient's case, and 25 minutes were dedicated to counseling and/or care coordination. Discussed with patient/family, nursing staff, SW/CM, ortho, ID, vascularpodiatry regarding clinical status, treatment course, and disposition planning. Time of note may not reflect time of encounter. Subjective Date patient seen: Jun 11, 2017 Time patient seen: 12:50 Constitutional: Reports: no symptoms HEENT: Reports: no symptoms Cardiovascular: Reports: no symptoms Respiratory: Reports: no symptoms Gastrointestinal/Abdominal: Reports: no symptoms Genitourinary: Reports: no symptoms Neurologic/Psychiatric: Reports: no symptoms Endocrine: Reports: no symptoms Hematologic/Lymphatic: Reports: no symptoms Allergies: Coded Allergies: No Known Allergies (Unverified , 05/11/17) All Systems: reviewed and negative except above Subjective No acute o/n events Arterial duplex shows mod to severe ischemia of b/l tibial arteries at rest Awaiting transfer to [facility] Pt denies pain, SOB, f/c, n/v, d/c, chest pain, SOB Objective Last 24 Hour Vital Signs Date Time Temp Pulse Resp B/P (MAP) Pulse Ox O2 Delivery O2 Flow Rate FiO2 06/11/17 23:26 98.4 65 20 120/55 95 06/11/17 20:35 72 152/64 06/11/17 19:11 98.6 72 20 152/64 96 Room Air 06/11/17 18:55 68 138/86 06/11/17 15:31 97.8 67 20 150/63 97 Room Air 06/11/17 12:08 97.0 67 20 147/63 98 Room Air 06/11/17 09:39 69 147/63 06/11/17 09:39 69 147/63 06/11/17 08:30 97.0 70 20 146/62 97 Room Air 06/11/17 00:00 99.1 68 20 130/58 95 Room Air Intake and Output 06/11/17 06/12/17 19:00 07:00 Intake Total 960 ml 60 ml Balance 960 ml 60 ml Intake Oral 960 ml IV Total 60 ml # Voids 5 # Bowel Movements 3 Laboratory Tests 06/11/17 05:24: Free Thyroxine 0.93 06/11/17 05:25: Urine Eosinophils Occasional, Urine Random Sodium 43 06/11/17 05:45: White Blood Count 8.0, Red Blood Count 3.21L, Hemoglobin 8.9L, Hematocrit 27.8L , Mean Corpuscular Volume 87, Mean Corpuscular Hemoglobin 27.6, Mean Corpuscular Hemoglobin Concent 31.9L, Red Cell Distribution Width 14.5, Platelet Count 255, Mean Platelet Volume 7.3, Neutrophils (%) (Auto) 68.9, Lymphocytes (%) (Auto) 15.6L, Monocytes (%) (Auto) 12.2H, Eosinophils (%) (Auto ) 2.4, Basophils (%) (Auto) 0.8, Sodium Level 130L, Potassium Level 5.3H, Chloride Level 101, Carbon Dioxide Level 21, Anion Gap 8, Blood Urea Nitrogen 58H, Creatinine 3.2H, Estimat Glomerular Filtration Rate 17.5, Glucose Level 147H, Calcium Level 9.0 Height (Feet): 5 Height (Inches): 4.00 Weight (Pounds): 200 Objective General: alert, cooperative, no distress, appears stated age Head: normocephalic, without obvious abnormality, atraumatic Eyes: conjunctivae/corneas clear. PERRL, EOM's intact Throat: lips, mucosa, and tongue normal. MMM Neck: supple, symmetrical, trachea midline, and no JVD Lungs: clear to auscultation bilaterally Heart: regular rate and rhythm, S1, S2 normal, no murmur, click, rub or gallop Abdomen: soft, non-tender, non-distended, bowel sounds normal; no masses or organomegaly Extremities: 8 inch x 3 inch area of black tissue over R ankle/dorsum of R foot. swelling/induration noted. no discharge Pulses: 2+ and symmetric Skin: skin color, texture, turgor normal; no rashes or lesions Neurologic: 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, no focal deficits Celestine Stevens M.D. Jun 11, 2017 23:46
[2017-06-12 04:00] VITALS: BP 149/80
[2017-06-12] MEDS: metroNIDAZOLE 500mg tab ORAL SCH (05:59)
[2017-06-12] MEDS: Nateglinide 60mg tab ORAL SCH (06:15)
[2017-06-12] MEDS: NovoLOG Insulin Flexpen SUBQ SCH (06:19)
[2017-06-12 08:00] VITALS: BP 130/67
[2017-06-12] MEDS: Miralax 17gm pkt ORAL SCH (09:00)
[2017-06-12] MEDS: Docusate 100mg cap ORAL SCH (09:00)
[2017-06-12] MEDS: Heparin 5000 units/ml inj SUBQ SCH (09:51)
[2017-06-12 09:52] VITALS: BP 148/61
[2017-06-12] MEDS: Carvedilol 6.25mg Tab ORAL SCH (09:52)
--- NOTE | 2017-06-12 11:27 | Infectious Diseases Prog Note ---
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 ischemia, ? osteo, ? hardware infection, pvd 2) s/p right ankle/distal fibula orif 3) dm, htn, renal failure, aocd, blindness, ckd, hyperlipidemia, anemia 4) allergies - negative, fh-nc, sh-negative, mar noted, notes and records noted 5) d/w RN P) 1) daptomycin, cefepime and flagyl (discontinue vancomycin secondary to renal failure) 2) watch labs, cultures noted 3) podiatry, plastics, ortho following, may need revision 4) d/w Dr. Sprague 5) await transfer to [facility] for further mgt 6) orders entered and noted Subjective Constitutional: Denies: fever HEENT: Denies: congestion Respiratory: Denies: shortness of breath Cardiovascular: Denies: chest pain Gastrointestinal/Abdominal: Denies: nausea, vomiting, diarrhea Genitourinary: Reports: other - no curtis Neurologic: Denies: headache Psychiatric: Denies: depression Skin: Denies: rash Hematologic: Denies: bleeding Musculoskeletal: Reports: pain - pain controlled Allergies: Coded Allergies: No Known Allergies (Unverified , 05/11/17) Objective Vital Signs Last 24 Hour Vital Signs Date Time Temp Pulse Resp B/P (MAP) Pulse Ox O2 Delivery O2 Flow Rate FiO2 06/12/17 09:52 68 148/61 06/12/17 09:51 68 148/61 06/12/17 08:00 97.9 68 19 130/67 97 Room Air 06/12/17 04:00 98.6 72 18 149/80 96 Room Air 06/11/17 23:26 98.4 65 20 120/55 95 06/11/17 20:35 72 152/64 06/11/17 19:11 98.6 72 20 152/64 96 Room Air 06/11/17 18:55 68 138/86 06/11/17 15:31 97.8 67 20 150/63 97 Room Air 06/11/17 12:08 97.0 67 20 147/63 98 Room Air Height (Feet): 5 Height (Inches): 4.00 Weight (Pounds): 200 General Appearance: no acute distress HEENT: normocephalic, atraumatic, anicteric, mucous membranes moist Respiratory/Chest: lungs clear, normal breath sounds, no respiratory distress, no accessory muscle use Cardiovascular: normal rate, regular rhythm, no gallop/murmur, no JVD Abdomen: normal bowel sounds, soft, non tender, no organomegaly, non distended Genitourinary: other - no curtis Extremities: no cyanosis Skin: no rash 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, alert, oriented x 3, responsive Lymphatic: no neck adenopathy Musculoskeletal: no effusion Objective x-ray - right ankle Impression: Evidence of reinjury, acuity indeterminate, of previously demonstrated ankle fracture, as described Microbiology Date/Time Source Procedure Growth Status 06/11/17 05:25 Straight Cath Urine Culture - Preliminary Mixed Gram Positive Organism Resulted Labs Test 06/10/17 05:45 06/10/17 15:30 06/11/17 05:24 06/11/17 05:25 White Blood Count 7.3 K/UL (4.8-10.8) Red Blood Count 2.86 M/UL (4.20-5.40) Hemoglobin 7.9 G/DL (12.0-16.0) Hematocrit 24.9 % (37.0-47.0) Mean Corpuscular Volume 87 FL (80-99) Mean Corpuscular Hemoglobin 27.8 PG (27.0-31.0) Mean Corpuscular Hemoglobin Concent 31.9 G/DL (32.0-36.0) Red Cell Distribution Width 14.6 % (11.6-14.8) Platelet Count 232 K/UL (150-450) Mean Platelet Volume 6.8 FL (6.5-10.1) Neutrophils (%) (Auto) % (45.0-75.0) Lymphocytes (%) (Auto) % (20.0-45.0) Monocytes (%) (Auto) % (1.0-10.0) Eosinophils (%) (Auto) % (0.0-3.0) Basophils (%) (Auto) % (0.0-2.0) Differential Total Cells Counted 100 Neutrophils % (Manual) 64 % (45-75) Lymphocytes % (Manual) 22 % (20-45) Monocytes % (Manual) 12 % (1-10) Eosinophils % (Manual) 2 % (0-3) Basophils % (Manual) 0 % (0-2) Band Neutrophils 0 % (0-8) Platelet Estimate Adequate Platelet Morphology Normal Hypochromasia 3+ Anisocytosis 1+ Sodium Level 134 MMOL/L (136-145) Potassium Level 5.4 MMOL/L (3.5-5.1) Chloride Level 103 MMOL/L (98-107) Carbon Dioxide Level 21 MMOL/L (21-32) Anion Gap 10 mmol/L (5-15) Blood Urea Nitrogen 58 mg/dL (7-18) Creatinine 2.9 MG/DL (0.55-1.30) Estimat Glomerular Filtration Rate 19.5 mL/min (>60) Glucose Level 121 MG/DL (74-106) Hemoglobin A1c 11.5 % (4.3-6.0) Uric Acid 5.5 MG/DL (2.6-7.2) Calcium Level 8.4 MG/DL (8.5-10.1) Phosphorus Level 5.4 MG/DL (2.5-4.9) Magnesium Level 1.8 MG/DL (1.8-2.4) Total Bilirubin 0.2 MG/DL (0.2-1.0) Gamma Glutamyl Transpeptidase 46 U/L (5-85) Aspartate Amino Transf (AST/SGOT) 21 U/L (15-37) Alanine Aminotransferase (ALT/SGPT) 19 U/L (12-78) Alkaline Phosphatase 125 U/L (46-116) Total Creatine Kinase 39 U/L (26-308) Pro-B-Type Natriuretic Peptide 6733 pg/mL (0-125) Total Protein 5.0 G/DL (6.4-8.2) Albumin 1.5 G/DL (3.4-5.0) Globulin 3.5 g/dL Albumin/Globulin Ratio 0.4 (1.0-2.7) Triglycerides Level 67 MG/DL (0-200) Cholesterol Level 176 MG/DL (< 200) LDL Cholesterol 82 mg/dL (<100) HDL Cholesterol 82 MG/DL (40-60) Cholesterol/HDL Ratio 2.1 (3.3-4.4) Vitamin B12 Level 346 PG/ML (193-986) Folate 9.8 NG/ML (3.1-17.5) Thyroid Stimulating Hormone (TSH) 6.786 uiU/mL (0.360-3.740) Urine Eosinophils None seen Occasional Free Thyroxine 0.93 NG/DL (0.10-1.46) Urine Random Sodium 43 MEQ/L (20-110) Test 06/11/17 05:45 White Blood Count 8.0 K/UL (4.8-10.8) Red Blood Count 3.21 M/UL (4.20-5.40) Hemoglobin 8.9 G/DL (12.0-16.0) Hematocrit 27.8 % (37.0-47.0) Mean Corpuscular Volume 87 FL (80-99) Mean Corpuscular Hemoglobin 27.6 PG (27.0-31.0) Mean Corpuscular Hemoglobin Concent 31.9 G/DL (32.0-36.0) Red Cell Distribution Width 14.5 % (11.6-14.8) Platelet Count 255 K/UL (150-450) Mean Platelet Volume 7.3 FL (6.5-10.1) Neutrophils (%) (Auto) 68.9 % (45.0-75.0) Lymphocytes (%) (Auto) 15.6 % (20.0-45.0) Monocytes (%) (Auto) 12.2 % (1.0-10.0) Eosinophils (%) (Auto) 2.4 % (0.0-3.0) Basophils (%) (Auto) 0.8 % (0.0-2.0) Sodium Level 130 MMOL/L (136-145) Potassium Level 5.3 MMOL/L (3.5-5.1) Chloride Level 101 MMOL/L (98-107) Carbon Dioxide Level 21 MMOL/L (21-32) Anion Gap 8 mmol/L (5-15) Blood Urea Nitrogen 58 mg/dL (7-18) Creatinine 3.2 MG/DL (0.55-1.30) Estimat Glomerular Filtration Rate 17.5 mL/min (>60) Glucose Level 147 MG/DL (74-106) Calcium Level 9.0 MG/DL (8.5-10.1) Current Medications Medications (Trade) Dose Ordered Sig/Andre Route PRN Reason Start Time Stop Time Status Last Admin Dose Admin Acetaminophen/ Hydrocodone Bitart (Chamberlain 5/325) 1 tab Q4H PRN ORAL pain 4-10 06/08/17 18:00 06/15/17 17:59 Amlodipine Besylate (Norvasc) 5 mg BID ORAL 06/08/17 21:00 07/08/17 20:59 06/12/17 09:51 Carvedilol (Coreg) 6.25 mg EVERY 12 HOURS ORAL 06/08/17 21:00 07/08/17 20:59 06/12/17 09:52 Cefepime HCl 2 gm/ Dextrose 100 ml @ 200 mls/hr Q24H IVPB 06/11/17 15:00 06/18/17 14:59 Daptomycin 500 mg/ Sodium Chloride 50 ml @ 100 mls/hr Q48H IV 06/11/17 16:00 06/18/17 15:59 Dextrose (Dextrose 50%) STAT PRN IV Hypoglycemia 06/08/17 17:45 07/08/17 17:44 Diphenhydramine HCl (Benadryl) 25 mg Q6H PRN ORAL Itching/Pruritis 06/08/17 17:45 07/08/17 17:44 Docusate Sodium (Colace) 100 mg TID ORAL 06/09/17 18:00 07/08/17 17:59 06/10/17 17:31 Epoetin Marcus (Procrit (for non ESRD use)) 10,000 units TUE-TUE-TUE SUBQ 06/13/17 21:00 07/13/17 20:59 Heparin Sodium (Porcine) (Heparin 5000 units/ml) 5,000 units EVERY 12 HOURS SUBQ 06/08/17 21:00 07/08/17 20:59 06/12/17 09:51 Hydralazine HCl (Apresoline) 25 mg Q4H PRN ORAL SBP>160 06/08/17 18:00 07/08/17 17:59 06/09/17 18:32 Insulin Aspart (NovoLOG) BEFORE MEALS AND HS SUBQ 06/09/17 06:30 07/09/17 06:29 06/12/17 06:19 Iron Sucrose 100 mg/Sodium Chloride 60 ml @ 240 mls/hr BEDTIME IV 06/10/17 21:00 06/14/17 21:14 06/11/17 20:35 Metronidazole (Flagyl) 500 mg EVERY 8 HOURS ORAL 06/11/17 14:30 06/18/17 14:29 Nateglinide (Starlix) 60 mg TIAC ORAL 06/09/17 07:30 07/09/17 07:29 06/12/17 06:15 Ondansetron HCl (Zofran) 4 mg Q6H PRN IVP Nausea & Vomiting 06/08/17 17:45 07/08/17 17:44 Pantoprazole (Protonix) 40 mg DAILY ORAL 06/09/17 09:00 07/09/17 08:59 06/12/17 09:52 Polyethylene Glycol (Miralax) 17 gm DAILY ORAL 06/09/17 09:00 07/09/17 08:59 06/10/17 10:15 Polyethylene Glycol (Miralax) 17 gm HSPRN PRN ORAL Constipation 06/08/17 17:45 07/08/17 17:44 Sennosides (Senokot) 17.2 mg QHS ORAL 06/08/17 21:00 07/08/17 20:59 06/10/17 21:14 OBIE DENISE Jun 12, 2017 11:27
--- NOTE | 2017-06-12 11:51 | Nephrology Progress Note ---
Assessment/Plan Problem List: (1) necrotic wound R ankle (2) CKD (chronic kidney disease) stage 4, GFR 15-29 ml/min (3) DM2 (diabetes mellitus, type 2) (4) HTN (hypertension) Assessment Renal Failure- with high K Cr 3.2 Mainly Chronic vs Acute Anemia Fx ankle 6+ Cellulitis DM HTN Plan Plan: today's blood work refused planning to sign AMA Kayexelate- refused Vanco level On Zosyn and Vanco avoid nephrotoxics- Urine studies EPO and IRON Last Renal JOYCELYN neg 2D echo results not found Subjective ROS Limited/Unobtainable: No Constitutional: Reports: malaise, weakness Objective Objective Last 24 Hour Vital Signs Date Time Temp Pulse Resp B/P (MAP) Pulse Ox O2 Delivery O2 Flow Rate FiO2 06/12/17 09:52 68 148/61 06/12/17 09:51 68 148/61 06/12/17 08:00 97.9 68 19 130/67 97 Room Air 06/12/17 04:00 98.6 72 18 149/80 96 Room Air 06/11/17 23:26 98.4 65 20 120/55 95 06/11/17 20:35 72 152/64 06/11/17 19:11 98.6 72 20 152/64 96 Room Air 06/11/17 18:55 68 138/86 06/11/17 15:31 97.8 67 20 150/63 97 Room Air 06/11/17 12:08 97.0 67 20 147/63 98 Room Air Height (Feet): 5 Height (Inches): 4.00 Weight (Pounds): 200 General Appearance: no apparent distress Respiratory/Chest: decreased breath sounds Abdomen: soft Objective PE not changed STANLEY MIGUEL Jun 12, 2017 11:51
--- NOTE | 2017-06-12 12:30 | Discharge Summary ---
Discharge Summary Hospital Course Date of Admission Jun 08, 2017 at 17:08 Date of Discharge Admitting Diagnosis foot/ankle cellulitis MELISSA Jorge is a 71 year old female who was admitted on Jun 08, 2017 at 17: 08 for Foot/Ankle Cellulitis Discharge Discharge Disposition Patient was discharged to Discharge Diagnoses: Celestine Stevens M.D. Jun 12, 2017 12:30
--- NOTE | 2017-06-13 00:42 | Consultation ---
History of Present Illness General Date patient seen: Jun 10, 2017 Chief Complaint: Skin Rash/Abscess Referring physician: Dr. Colón Present Illness HPI 71-year-old female, who had a recent surgery of the right ankle distal fibula ORIF and ankle ORIF for right ankle fracture. The patient clinically has an infected wound with necrotic changes. the pt was irritable and anxious. the pt was short with this MD and stated that she wanted to be transferred to [facility]. Allergies: Coded Allergies: No Known Allergies (Unverified , 05/11/17) Medication History Scheduled Amlodipine Besylate (Norvasc), 5 MG ORAL BID Carvedilol (Coreg), 6.25 MG ORAL EVERY 12 HOURS Docusate Sodium* (Colace*), 100 MG ORAL THREE TIMES A DAY Epoetin Marcus (Procrit), 10,000 UNITS SUBQ TUE-TUE-TUE Heparin Sod (Porcine) (Heparin Sodium*), 5,000 UNITS SUBQ EVERY 12 HOURS Insulin Aspart (Novolog Flexpen), 0 UNITS SUBQ AC+HS Nateglinide* (Starlix*), 60 MG ORAL TIAC Oxycodone Hcl Er* (Oxycontin*), 20 MG ORAL EVERY 12 HOURS Pantoprazole* (Protonix*), 40 MG ORAL DAILY Polyethylene Glycol 3350* (Miralax*), 17 GM ORAL DAILY Sennosides (Senna-Gen), 17.2 MG ORAL QHS Scheduled PRN Hydralazine Hcl* (Hydralazine Hcl*), 25 MG ORAL Q4H PRN Hydrocodone Bit/Acetaminophen 5-325* ([place] 5-325*), 1 TAB ORAL Q4H PRN Patient History History Provided By: Patient, Medical Record, PMD Healthcare decision maker N Resuscitation status Full Code Advanced Directive on File Past Medical/Surgical History Past Medical/Surgical History: (1) live at SNF (2) Anemia of chronic disease (3) CKD (chronic kidney disease) stage 4, GFR 15-29 ml/min (4) DM2 (diabetes mellitus, type 2) (5) Status post ORIF of fracture of ankle (6) Necrotic wound of R ankle/foot (7) Left heel unstageable pressure ulcer with black eschar adhered to wound bed (8) necrotic wound R ankle (9) Hypoalbuminemia (10) Alkaline phosphatase elevation (11) Lives w/ caregiver (12) HTN (hypertension) (13) HLD (hyperlipidemia) (14) Uncontrolled diabetes mellitus (15) Status post fall (16) Hyperkalemia (17) Hyponatremia (18) Pre-syncope (19) ZENY (acute kidney injury) (20) Diabetes mellitus out of control (21) Acute blood loss anemia (22) RIGHT ANKLE FRACTURE (23) Subungual hematoma left hallux (24) Dry blisters L hallux and L 2nd toe (25) Dry blisters L hallux and L 2nd toe Review of Systems Psychiatric: Reports: anxiety Physical Exam General Appearance: no apparent distress, alert, overweight Neurologic: alert, oriented x 3, responsive Last 24 Hour Vital Signs Date Time Temp Pulse Resp B/P (MAP) Pulse Ox O2 Delivery O2 Flow Rate FiO2 06/12/17 09:52 68 148/61 06/12/17 09:51 68 148/61 06/12/17 08:00 97.9 68 19 130/67 97 Room Air 06/12/17 04:00 98.6 72 18 149/80 96 Room Air Height (Feet): 5 Height (Inches): 4.00 Weight (Pounds): 200 Assessment/Plan Status: stable Assessment/Plan anxiety d/o the pt has capacity to make decision Abelardo Yadav M.D. Jun 13, 2017 00:42
--- NOTE | 2017-06-13 00:44 | General Progress Note ---
Assessment/Plan Status: stable Assessment/Plan the pt should be discharged and not leave AMA. apparently the vascular surgery needs to be done adair and pt wants to go to [facility] via private ambulance d/w hugo charge nurse Subjective Date patient seen: Jun 11, 2017 Neurologic/Psychiatric: Reports: anxiety Allergies: Coded Allergies: No Known Allergies (Unverified , 05/11/17) Objective Last 24 Hour Vital Signs Date Time Temp Pulse Resp B/P (MAP) Pulse Ox O2 Delivery O2 Flow Rate FiO2 06/12/17 09:52 68 148/61 06/12/17 09:51 68 148/61 06/12/17 08:00 97.9 68 19 130/67 97 Room Air 06/12/17 04:00 98.6 72 18 149/80 96 Room Air Height (Feet): 5 Height (Inches): 4.00 Weight (Pounds): 200 General Appearance: no apparent distress, alert, overweight Neurologic: alert, oriented x 3, responsive Abelardo Yadav M.D. Jun 13, 2017 00:44
[2017-06-13] MEDS ORDERED: Epogen (for non ESRD use) SUBQ SCH (21:00)
--- NOTE | 2017-06-14 16:48 | Discharge Summary ---
Discharge Summary Hospital Course Date of Admission Jun 08, 2017 at 17:08 Date of Discharge Jun 12, 2017 at 12:10 (AMA) Admitting Diagnosis foot/ankle cellulitis Reason for Hospitalization: R foot necrotic wound HPI 71y/o AA female with pmh of DM2, HTN, HLD, legal blindness, CKD, AOCD, recent R ankle fracture s/p R ORIF on 05/13/17 who presents with R foot/ankle necrotic wound. Pt recently admitted for R ankle fracture s/p ORIF at [facility] [place]. She was discharged to SNF for rehab. Pt states she was doing well there. She was noted to have worsening R foot/ankle wound w/ signs of necrosis, so she was transferred back to the hospital for further care. Pt denies pain, f/c, n/v, d/c , abd pain, melena, BRBPR, dysuria. In ED, pt given vanco IV. Consultations Infectious disease, Orthopedic surgery, Plastic surgery, Nephrology, Vascular surgery, Podiatry Hospital Course Pt was admitted and seen by ortho, plastic surgery and ID. She was started on empiric antibiotics given necrotic wound. Arterial duplex done showed moderate to severe ischemia of b/l tibial arteries. Vascular surgery consulted. Repeat ankle x-ray also showed pt has re-fractured ankle w/ fibular displacement and hardware failure. Ortho planned for surgery on Tuesday, but pt declined and wanted second opinion. She was set up with transfer to [facility] for further mgmt and had bed confirmed on Tuesday but she declined transfer. Instead, her daughter came on Tuesday and took her AMA w/ plan to go straight to [facility]. Discharge Medications Continued Medications: Amlodipine Besylate (Norvasc) 5 Mg Tablet 5 MG ORAL BID, #60 TAB Carvedilol (Coreg) 6.25 Mg Tablet 6.25 MG ORAL EVERY 12 HOURS, #60 TAB Docusate Sodium* (Colace*) 100 Mg Capsule 100 MG ORAL THREE TIMES A DAY for 30 Days, CAP Epoetin Marcus (Procrit) 20,000 Unit/1 Ml Vial 71749 UNITS SUBQ MON-WED-FRI for 30 Days, VIAL Heparin Sod (Porcine) (Heparin Sodium*) 5 000/1 Ml Vial 5000 UNITS SUBQ EVERY 12 HOURS for 30 Days, VIAL Hydralazine Hcl* (Hydralazine Hcl*) 25 Mg Tablet 25 MG ORAL Q4H PRN for 30 Days, TAB Hydrocodone Bit/Acetaminophen 5-325* ([place] 5-325*) 1 Each Tablet 1 TAB ORAL Q4H PRN, #40 TAB for moderate/severe pain Insulin Aspart (Novolog Flexpen) 100 Unit/1 Ml Insuln.pen 0 UNITS SUBQ AC+HS for 30 Days, EA Nateglinide* (Starlix*) 60 Mg Tablet 60 MG ORAL TIAC, #90 TAB Oxycodone Hcl Er* (Oxycontin*) 20 Mg Tab.er.12h 20 MG ORAL EVERY 12 HOURS for 14 Days, TAB Pantoprazole* (Protonix*) 40 Mg Tablet.dr 40 MG ORAL DAILY for 30 Days, TAB Polyethylene Glycol 3350* (Miralax*) 17 Gm Powd.pack 17 GM ORAL DAILY for 30 Days, PACK Sennosides (Senna-Gen) 8.6 Mg Tablet 17.2 MG ORAL QHS for 30 Days, TAB Discharge Condition Upon Discharge: critical, stable Discharge Disposition Pt left against medical advice Discharge Diagnoses: (1) Necrotic wound of R ankle/foot (2) Hardware failure (3) Status post ORIF of fracture of ankle (4) Peripheral vascular disease (5) Uncontrolled diabetes mellitus (6) CKD (chronic kidney disease) stage 4, GFR 15-29 ml/min (7) DM2 (diabetes mellitus, type 2) (8) HTN (hypertension) (9) HLD (hyperlipidemia) (10) Anemia of chronic disease (11) Hyperkalemia (12) Hyponatremia Celestine Stevens M.D. Jun 14, 2017 16:48
== END 2017-06-12 12:10 | disposition short-term general hospital (02) | DRG 863 ==
LOC: EDBD 16:20 → EMR 16:52 → 4E 17:08 → EDBEDREQ 17:31 → 4E 06-11 11:20
DX: T81.4XXA Infection following a procedure, initial encounter (principal); N17.9 Acute kidney failure, unspecified; E11.22 Type 2 diabetes mellitus with diabetic chronic kidney disease; T81.31XA Disruption of external operation (surgical) wound, not elsewhere classified, initial encounter; N18.4 Chronic kidney disease, stage 4 (severe); D62 Acute posthemorrhagic anemia; L03.115 Cellulitis of right lower limb; L97.319 Non-pressure chronic ulcer of right ankle with unspecified severity; T84.126A Displacement of internal fixation device of bone of right lower leg, initial encounter; S82.841P Displaced bimalleolar fracture of right lower leg, subsequent encounter for closed fracture with malunion; E87.1 Hypo-osmolality and hyponatremia; E11.51 Type 2 diabetes mellitus with diabetic peripheral angiopathy without gangrene; B96.1 Klebsiella pneumoniae [K. pneumoniae] as the cause of diseases classified elsewhere; E11.622 Type 2 diabetes mellitus with other skin ulcer; E87.5 Hyperkalemia; E11.319 Type 2 diabetes mellitus with unspecified diabetic retinopathy without macular edema; E11.65 Type 2 diabetes mellitus with hyperglycemia; E88.09 Other disorders of plasma-protein metabolism, not elsewhere classified; Z53.29 Procedure and treatment not carried out because of patient's decision for other reasons; I12.9 Hypertensive chronic kidney disease with stage 1 through stage 4 chronic kidney disease, or unspecified chronic kidney disease; S90.422A Blister (nonthermal), left great toe, initial encounter; S90.425A Blister (nonthermal), left lesser toe(s), initial encounter; S90.112A Contusion of left great toe without damage to nail, initial encounter; X58.XXXA Exposure to other specified factors, initial encounter; Y79.3 Surgical instruments, materials and orthopedic devices (including sutures) associated with adverse incidents; E78.5 Hyperlipidemia, unspecified; H54.8 Legal blindness, as defined in USA; D63.8 Anemia in other chronic diseases classified elsewhere; R60.0 Localized edema; L89.620 Pressure ulcer of left heel, unstageable; W19.XXXD Unspecified fall, subsequent encounter; Z79.4 Long term (current) use of insulin; Z98.890 Other specified postprocedural states
CPT/HCPCS: 36415; 80048; 80053; 80061; 81003; 82550; 82607; 82728; 82746; 82977; 83036; 83540; 83550; 83605; 83735; 83880; 84100; 84300; 84439; 84443; 84550; 85007; 85025; 87040; 87070; 87075; 87081; 87086; 87181; 87205; 89050; 93925; 93970; 99285; J1815

== ENCOUNTER 2017-10-21 17:54 | Inpatient (IN) | payer MEDICARE, OTHER ==
[~2017-10-21] VITALS: Ht 167.6 cm; Wt 90.7 kg
[2017-10-21] MEDS ORDERED: MINOCYCLINE HC100 MG PO (18:47)
[2017-10-21] MEDS ORDERED: MEROPENEM1 GM IV (18:47)
[2017-10-21] MEDS ORDERED: BISACODYL5 MG RECTAL (18:47)
[2017-10-21] MEDS ORDERED: SIMETHICONE80 MG ORAL (18:47)
[2017-10-21] MEDS ORDERED: STARLIX60 MG ORAL (18:47)
[2017-10-21] MEDS ORDERED: TYLENOL650 MG/20. ORAL (18:47)
[2017-10-21] MEDS ORDERED: CALCITRIOL1 MCG/1 ML PO (18:47)
[2017-10-21] MEDS ORDERED: LOSARTAN POTASS25 MG ORAL (18:47)
[2017-10-21] MEDS ORDERED: FERROUS SULFAT325 MG ORAL (18:47)
[2017-10-21] MEDS ORDERED: GABAPENTIN100 MG ORAL (18:47)
[2017-10-21 19:04] VITALS: BP 132/57
--- NOTE | 2017-10-21 19:08 | Emergency Room Report ---
History of Present Illness General Chief Complaint: Abnormal Labs Source: Patient, Medical Record Present Illness HPI Patient sent for low H/H. Measured at 6.6 by outside lab. H/O ESRD on dialysis. Denies melena, bleeding, hematemesis, coffee grounds. States is on heparin. Has chronic anemia (related to ESRD). Recent admission for debridement of osteomyelitis of foot. Has wound care and WoundVac. Dialysis Sat. Has Vas Cath R chest. Some SULLIVAN and headache. No chest pain, palpitations, NVD. Rarely makes urine. No dysuria. No fevers or chills. Diabetic. Allergies: Coded Allergies: No Known Allergies (Unverified , 05/11/17) Patient History Past Medical History: see triage record Past Surgical History: other - vas cath, surgery for osteo foot Social History: Denies: smoking, alcohol use, drug use Social History Narrative at [facility] Reviewed Nursing Documentation: PMH: Agreed; PSxH: Agreed Nursing Documentation-PM Past Medical History: No History, Except For Hx Hypertension: Yes Hx COPD: No - anemia Hx Diabetes: Yes Hx Neurological Problems: No Review of Systems All Other Systems: negative except mentioned in HPI Physical Exam Vital Signs Date Time Temp Pulse Resp B/P (MAP) Pulse Ox O2 Delivery O2 Flow Rate FiO2 10/21/17 17:51 98.2 84 16 148/72 96 Room Air 98.2 Sp02 EP Interpretation: reviewed, normal General Appearance: no apparent distress, GCS 15, Chronically Ill Head: normocephalic Eyes: right eye other - opacity of cornea; bilateral eye conjunctivae pale ENT: moist mucus membranes Neck: supple Respiratory: lungs clear, normal breath sounds, decreased breath sounds, other - vascath R Cardiovascular #1: regular rate, rhythm Cardiovascular #2: 2+ radial (R) Gastrointestinal: normal inspection, normal bowel sounds, non tender, no mass, non-distended Rectal: heme negative stool Musculoskeletal: back normal, normal range of motion, other - dressings and vaccuum device foot Neurologic: alert, oriented x3, 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 - except for blindness Psychiatric: mood/affect normal Skin: warm/dry, pallor, other - wound vac on R foot Medical Decision Making Diagnostic Impression: Primary Impression: Anemia of chronic disease Additional Impressions: ESRD (end stage renal disease) on dialysis Pleural effusion Necrotic wound of R ankle/foot ER Course Patient presents with low H/H. DDX: anemia chronic disease, acute bleeding ( heme neg stool) amongst others. Evaluation with EKG, CXR, labs. Depending on results, consider admission for possible transfusion. Concern over possible ACS with risk factors and SULLIVAN. Recent operative care for osteomyelitis and wound care. EKG without injury. CXR with bilateral effusions (and vas cath). H/H low but better than outpatient. No evidence of acute bleeding. However, concern over wound and need for adequate Hgb for proper healing. Patient admitted for repeat labs and consideration for transfusion during dialysis. Laboratory Tests Test 10/21/17 19:14 White Blood Count 12.0 K/UL (4.8-10.8) H Red Blood Count 2.84 M/UL (4.20-5.40) L Hemoglobin 7.5 G/DL (12.0-16.0) L Hematocrit 24.5 % (37.0-47.0) L Mean Corpuscular Volume 86 FL (80-99) Mean Corpuscular Hemoglobin 26.2 PG (27.0-31.0) L Mean Corpuscular Hemoglobin Concent 30.4 G/DL (32.0-36.0) L Red Cell Distribution Width 19.9 % (11.6-14.8) H Platelet Count 164 K/UL (150-450) Mean Platelet Volume 7.7 FL (6.5-10.1) Neutrophils (%) (Auto) 76.1 % (45.0-75.0) H Lymphocytes (%) (Auto) 14.1 % (20.0-45.0) L Monocytes (%) (Auto) 6.7 % (1.0-10.0) Eosinophils (%) (Auto) 2.0 % (0.0-3.0) Basophils (%) (Auto) 0.8 % (0.0-2.0) Prothrombin Time 12.0 SEC (9.30-11.50) H Prothrombin Time INR 1.1 (0.9-1.1) PTT 41 SEC (23-33) H Sodium Level 136 MMOL/L (136-145) Potassium Level 5.0 MMOL/L (3.5-5.1) Chloride Level 106 MMOL/L (98-107) Carbon Dioxide Level 23 MMOL/L (21-32) Anion Gap 7 mmol/L (5-15) Blood Urea Nitrogen 15 mg/dL (7-18) Creatinine 2.4 MG/DL (0.55-1.30) H Estimate Glomerular Filtration Rate 24.2 mL/min (>60) Glucose Level 87 MG/DL (74-106) Calcium Level 8.8 MG/DL (8.5-10.1) Total Bilirubin 0.4 MG/DL (0.2-1.0) Aspartate Amino Transferase (AST) 28 U/L (15-37) Alanine Aminotransferase (ALT) < 6 U/L (12-78) L Alkaline Phosphatase 149 U/L (46-116) H Troponin I 0.000 ng/mL (0.000-0.056) Total Protein 6.8 G/DL (6.4-8.2) Albumin 1.7 G/DL (3.4-5.0) L Globulin 5.1 g/dL Albumin/Globulin Ratio 0.3 (1.0-2.7) L Lipase 78 U/L (73-393) EKG Diagnostic Results Rate: normal Rhythm: NSR ST Segments: no acute changes Rhythm Strip Diag. Results EP Interpretation: yes Rhythm: NSR, no PVC's, no ectopy Chest X-Ray Diagnostic Results Chest X-Ray Diagnostic Results : Chest X-Ray Ordered: Yes # of Views/Limited/Complete: 1 View Indication: Other Interpretation: no pneumothorax, other - portacath, bilat effusions can't exclude exudates Impression: No acute disease Electronically Signed by: Electronically signed by Joaquin Day MD Other X-Ray Diagnostic Results Other X-Ray Diagnostic Results : X-Ray ordered: abd # of Views/Limited Vs Complete: 2 View EP Interpretation: Yes Interpretation: nonspecific bowel gas, no sbo, other - opacity pelvis Impression: Other Electronically Signed by: Electronically signed by Joaquin Day MD Last Vital Signs Date Time Temp Pulse Resp B/P (MAP) Pulse Ox O2 Delivery O2 Flow Rate FiO2 10/22/17 00:00 97.4 76 20 128/64 100 97.4 10/21/17 21:30 Room Air Status: improved Disposition: ADMITTED INPATIENT Condition: Serious Joaquin Day M.D. Oct 21, 2017 19:08
[2017-10-21 19:42] LABS: HEMATOCRIT 24.5 % (37.0-47.0); HEMOGLOBIN 7.5 G/DL (12.0-16.0); MEAN CORPUSCULAR VOLUME 86 FL (80-99); NEUTROPHILS % (AUTO) 76.1 % (45.0-75.0); PLATELET COUNT 164 K/UL (150-450); RED BLOOD COUNT 2.84 M/UL (4.20-5.40); RED CELL DISTRIBUTION WIDTH 19.9 % (11.6-14.8)
[2017-10-21 19:43] LABS: BASOPHILS % (AUTO) 0.8 % (0.0-2.0); LYMPHOCYTES % (AUTO) 14.1 % (20.0-45.0); MONOCYTES % (AUTO) 6.7 % (1.0-10.0)
[2017-10-21 19:45] LABS: INR 1.1 (0.9-1.1)
[2017-10-21 19:47] LABS: ANION GAP 7 mmol/L (5-15); BLOOD UREA NITROGEN 15 mg/dL (7-18); CALCIUM 8.8 MG/DL (8.5-10.1); CARBON DIOXIDE 23 MMOL/L (21-32); CHLORIDE 106 MMOL/L (98-107); CREATININE 2.4 MG/DL (0.55-1.30); SODIUM 136 MMOL/L (136-145)
[2017-10-21 19:51] LABS: ALANINE AMINOTRANSFERASE < 6 U/L (12-78); ALBUMIN 1.7 G/DL (3.4-5.0); ALBUMIN/GLOBULIN RATIO 0.3 (1.0-2.7); ALKALINE PHOSPHATASE 149 U/L (46-116); ASPARTATE AMINO TRANSFERASE 28 U/L (15-37); BILIRUBIN,TOTAL 0.4 MG/DL (0.2-1.0)
[2017-10-21 20:00] VITALS: BP 126/60
[2017-10-21] MEDS ORDERED: Meropenem 1 GM in NS 55 ML IVPB SCH (20:15)
[2017-10-21] MEDS ORDERED: Simethicone 80mg tab ORAL PRN (20:15)
[2017-10-21] MEDS ORDERED: Norco 5mg/325mg tab ORAL PRN (20:15)
[2017-10-21] MEDS ORDERED: HydrALAZINE 25mg tab ORAL PRN (20:15)
--- NOTE | 2017-10-21 20:29 | History and Physical ---
History of Present Illness General Date patient seen: Oct 21, 2017 Time patient seen: 20:00 Reason for Hospitalization: Acute on chronic anemia Present Illness HPI 71y/o female with pmh of HTN, HLD IDDM type 2 (A1C 9.9), ESRD on HD, nephrotic syndrome, chronic diastolic heart failure, legal blindness, R ankle fracture s/ p ORIF on 05/13/17 and subsequenthardware failure and displaced oblique fractures of distal fibula and tibia s/p I&D of RLE, removal of internal fixation devices from right ankle, open reduction of right ankle fracture, application of external fixation to right lower extremity, implantation of antibiotic-impregnated polymethylmethacrylate cement beads in right ankle on , s/p I&D of [place], application of vacuum assisted closure device, and open reduction with external fixation, right ankle on 06/22/17, s/p removal of external fixator of R ankle and irrigation and debridement of RLE on 09/22/17, R ankle osteomyelitis s/p irrigation and debridement of RLE, ostectomy and biopsy of R tibia at the medial malleolus, and application of wound vacuum assisted closure KCI on 09/30/17, Corynebacterium striatum group bacteremia, mitral valve endocarditis, who presents with acute on chronic anemia. Pt wa sfound to hae hgb 6.6 at labs done at [facility]. No reports of active bleeding including melena, BRBPR, hematemesis. Denies f/c, n/v, d/c, chest pain, SOB. In ED, hgb 7.4. Allergies: Coded Allergies: No Known Allergies (Unverified , 05/11/17) Medication History Scheduled Amlodipine Besylate (Norvasc), 5 MG ORAL BID Bisacodyl* (Dulcolax*), 10 MG RECTAL DAILY, (Reported) Calcitriol (Calcitriol*), 0.5 MCG PO DAILY, (Reported) Carvedilol (Coreg), 6.25 MG ORAL EVERY 12 HOURS Docusate Sodium* (Colace*), 100 MG ORAL THREE TIMES A DAY Epoetin Marcus (Procrit), 10,000 UNITS SUBQ TUE-TUE-TUE Ferrous Sulfate* (Ferrous Sulfate*), 325 MG ORAL DAILY, (Reported) Gabapentin* (Gabapentin*), 100 MG ORAL HS, (Reported) Heparin Sod (Porcine) (Heparin Sodium*), 5,000 UNITS SUBQ EVERY 12 HOURS Insulin Aspart (Novolog Flexpen), 0 UNITS SUBQ AC+HS Losartan Potassium* (Losartan Potassium*), 25 MG ORAL DAILY, (Reported) Meropenem (Meropenem), 1 GM IV DAILY, (Reported) Minocycline Hcl (Minocycline Hcl), 100 MG PO EVERY 12 HOURS, (Reported) Nateglinide* (Starlix*), 60 MG ORAL TIAC Nateglinide* (Starlix*), 60 MG ORAL AC, (Reported) Oxycodone Hcl Er* (Oxycontin*), 20 MG ORAL EVERY 12 HOURS Pantoprazole* (Protonix*), 40 MG ORAL DAILY Polyethylene Glycol 3350* (Miralax*), 17 GM ORAL DAILY Sennosides (Senna-Gen), 17.2 MG ORAL QHS Scheduled PRN Acetaminophen (Acetaminophen), 650 MG ORAL Q6H PRN for Prn Headache/Temp > 101, (Reported) Hydralazine Hcl* (Hydralazine Hcl*), 25 MG ORAL Q4H PRN Hydrocodone Bit/Acetaminophen 5-325* ([place] 5-325*), 1 TAB ORAL Q4H PRN Simethicone* (Simethicone*), 80 MG ORAL Q6HR PRN for GAS PAIN, (Reported) Patient History Healthcare decision maker Resuscitation status Advanced Directive on File Past Medical/Surgical History Past Medical/Surgical History: (1) DM2 (diabetes mellitus, type 2) (2) ESRD (end stage renal disease) on dialysis (3) Anemia of chronic disease (4) HTN (hypertension) (5) HLD (hyperlipidemia) (6) Endocarditis of mitral valve (7) Corynebacterium striatum group bacteremia (8) UTI due to extended-spectrum beta lactamase (ESBL) producing Escherichia coli (9) R ankle fracture s/p ORIF on 05/13/17 and subsequenthardware failure and displaced oblique fractures of distal fibula and tibia Family History Family History: Patient reports no known family medical history. Social History Social History: (1) live at [facility] Review of Systems Constitutional: Reports: no symptoms Eye: Reports: no symptoms ENT: Reports: no symptoms Respiratory: Reports: no symptoms Cardiovascular: Reports: no symptoms Gastrointestinal: Reports: no symptoms Genitourinary: Reports: no symptoms Musculoskeletal: Reports: no symptoms Skin: Reports: no symptoms Psychiatric: Reports: no symptoms Neurological: Reports: no symptoms Endocrine: Reports: no symptoms Hematologic/Lymphatic: Reports: anemia Physical Exam Physical Exam Narrative General: alert, cooperative, no distress, appears stated age Head: normocephalic, without obvious abnormality, atraumatic Eyes: conjunctivae/corneas clear. PERRL, EOM's intact Throat: lips, mucosa, and tongue normal. MMM Neck: supple, symmetrical, trachea midline, and no JVD Lungs: clear to auscultation bilaterally Heart: regular rate and rhythm, S1, S2 normal, no murmur, click, rub or gallop Abdomen: soft, non-tender, non-distended, bowel sounds normal; no masses or organomegaly Extremities: extremities normal, atraumatic, no cyanosis or edema Pulses: 2+ and symmetric Skin: dressing c/d/i Neurologic: 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, no focal deficits Last 24 Hour Vital Signs Date Time Temp Pulse Resp B/P (MAP) Pulse Ox O2 Delivery O2 Flow Rate FiO2 10/21/17 19:04 98.2 78 16 132/57 96 Room Air 98.2 10/21/17 17:51 98.2 84 16 148/72 96 Room Air 98.2 Laboratory Tests Test 10/21/17 19:14 White Blood Count 12.0 K/UL (4.8-10.8) H Red Blood Count 2.84 M/UL (4.20-5.40) L Hemoglobin 7.5 G/DL (12.0-16.0) L Hematocrit 24.5 % (37.0-47.0) L Mean Corpuscular Volume 86 FL (80-99) Mean Corpuscular Hemoglobin 26.2 PG (27.0-31.0) L Mean Corpuscular Hemoglobin Concent 30.4 G/DL (32.0-36.0) L Red Cell Distribution Width 19.9 % (11.6-14.8) H Platelet Count 164 K/UL (150-450) Mean Platelet Volume 7.7 FL (6.5-10.1) Neutrophils (%) (Auto) 76.1 % (45.0-75.0) H Lymphocytes (%) (Auto) 14.1 % (20.0-45.0) L Monocytes (%) (Auto) 6.7 % (1.0-10.0) Eosinophils (%) (Auto) 2.0 % (0.0-3.0) Basophils (%) (Auto) 0.8 % (0.0-2.0) Prothrombin Time 12.0 SEC (9.30-11.50) H Prothromb Time International Ratio 1.1 (0.9-1.1) Activated Partial Thromboplast Time 41 SEC (23-33) H Sodium Level 136 MMOL/L (136-145) Potassium Level 5.0 MMOL/L (3.5-5.1) Chloride Level 106 MMOL/L (98-107) Carbon Dioxide Level 23 MMOL/L (21-32) Anion Gap 7 mmol/L (5-15) Blood Urea Nitrogen 15 mg/dL (7-18) Creatinine 2.4 MG/DL (0.55-1.30) H Estimat Glomerular Filtration Rate 24.2 mL/min (>60) Glucose Level 87 MG/DL (74-106) Calcium Level 8.8 MG/DL (8.5-10.1) Total Bilirubin 0.4 MG/DL (0.2-1.0) Aspartate Amino Transf (AST/SGOT) 28 U/L (15-37) Alanine Aminotransferase (ALT/SGPT) < 6 U/L (12-78) L Alkaline Phosphatase 149 U/L (46-116) H Troponin I 0.000 ng/mL (0.000-0.056) Total Protein 6.8 G/DL (6.4-8.2) Albumin 1.7 G/DL (3.4-5.0) L Globulin 5.1 g/dL Albumin/Globulin Ratio 0.3 (1.0-2.7) L Lipase 78 U/L (73-393) Height (Feet): 5 Height (Inches): 6.00 Weight (Pounds): 200 Medications Current Medications Medications (Trade) Dose Ordered Sig/Andre Route PRN Reason Start Time Stop Time Status Last Admin Dose Admin Acetaminophen (Tylenol) 650 mg Q4H PRN ORAL Mild Pain (Pain Scale 1-3) 10/21/17 20:15 11/20/17 20:14 Acetaminophen (Tylenol) 650 mg Q4H PRN ORAL fever (temp>100.5F) 10/21/17 20:15 11/20/17 20:14 Acetaminophen/ Hydrocodone Bitart ([place] 5/325) 1 tab Q4H PRN ORAL pain 4-10 10/21/17 20:15 10/28/17 20:14 Amlodipine Besylate (Norvasc) 5 mg BID ORAL 10/22/17 09:00 11/21/17 08:59 Bisacodyl (Dulcolax) 10 mg HSPRN PRN RECTAL Constipation 10/21/17 20:15 11/20/17 20:14 Calcitriol (Rocatrol) 0.5 mcg DAILY ORAL 10/22/17 09:00 11/21/17 08:59 UNV Carvedilol (Coreg) 6.25 mg EVERY 12 HOURS ORAL 10/21/17 21:00 11/20/17 20:59 UNV Dextrose (Dextrose 50%) STAT PRN IV Hypoglycemia 10/21/17 20:30 11/20/17 20:29 Docusate Sodium (Colace) 100 mg EVERY 12 HOURS ORAL 10/21/17 21:00 11/20/17 20:59 UNV Epoetin Marcus (Procrit (for ESRD on dialysis)) 10,000 units TUE-TUE-TUE SUBQ 10/21/17 22:00 11/20/17 21:59 Ferrous Sulfate (Feosol) 325 mg DAILY ORAL 10/22/17 09:00 11/21/17 08:59 UNV Gabapentin (Neurontin) 100 mg QHS ORAL 10/21/17 21:00 11/20/17 20:59 UNV Hydralazine HCl (Apresoline) 25 mg Q4H PRN ORAL SBP>160 10/21/17 20:15 11/20/17 20:14 Insulin Aspart (NovoLOG) BEFORE MEALS AND HS SUBQ 10/21/17 21:00 11/20/17 20:59 UNV Meropenem 1 gm/ Sodium Chloride 55 ml @ 110 mls/hr Q24H IVPB 10/22/17 09:00 10/26/17 20:14 UNV Minocycline HCl (Minocin) 200 mg Q12HR ORAL 10/21/17 21:00 10/28/17 20:59 UNV Ondansetron HCl (Zofran) 4 mg Q6H PRN IVP Nausea & Vomiting 10/21/17 20:15 11/20/17 20:14 Pantoprazole (Protonix) 40 mg DAILY IV 10/22/17 09:00 11/21/17 08:59 Polyethylene Glycol (Miralax) 17 gm DAILY ORAL 10/22/17 09:00 11/21/17 08:59 Sennosides (Senokot) 2 tab QHS ORAL 10/21/17 21:00 11/20/17 20:59 UNV Sevelamer Carbonate (Renvela) 800 mg TID ORAL 10/22/17 09:00 11/21/17 08:59 UNV Simethicone (Mylicon) 80 mg Q6H PRN ORAL GAS PAIN 10/21/17 20:15 11/20/17 20:14 Vancomycin HCl (Vanco rx to dose) 1 ea DAILY PRN MISC Per rx protocol 10/21/17 20:15 11/20/17 20:14 UNV Vitamin B Complex/ Vit C/Folic Acid (Nephrovite) 1 tab DAILY ORAL 10/22/17 09:00 11/21/17 08:59 UNV Assessment/Plan Problem List: (1) acute on chronic anemia (2) ESRD (end stage renal disease) on dialysis ICD Codes: N18.6 - End stage renal disease; Z99.2 - Dependence on renal dialysis SNOMED: 870836989 (3) DM2 (diabetes mellitus, type 2) ICD Codes: E11.9 - Type 2 diabetes mellitus without complications SNOMED: 12486522 (4) Endocarditis of mitral valve ICD Codes: I05.8 - Other rheumatic mitral valve diseases SNOMED: 87589625 (5) Corynebacterium striatum group bacteremia (6) R ankle fracture s/p ORIF on 05/13/17 and subsequenthardware failure and displaced oblique fractures of distal fibula and tibia (7) HTN (hypertension) ICD Codes: I10 - Essential (primary) hypertension SNOMED: 61181360 (8) HLD (hyperlipidemia) ICD Codes: E78.5 - Hyperlipidemia, unspecified SNOMED: 55478811 Status: stable Assessment/Plan Heme/onc, renal and ID consulted Trend CB; transfuse for hgb<7.5 or active bleeding. Likely transfuse tomorrow during HD Cont HD per renal Check Fe panel, ferritin Cont vanco given mitral valve endocarditis 2/2 Corynebacterium striatum group bacteremia - day Cont meropenem and minocycline given R ankle osteomyelitis - day Cont SNF meds ILANA Pain control, bowel regimen Supportive care DVT Prophylaxis: SCD, HSQ Code Status: Full Hospital Classification Declaration: Based on this initial evaluation, and depending on the patient's clinical course, I anticipate that this patient will require hospitalization for 1-3 days for anemia and close respiratory/ hemodynamic monitoring. Disposition: Once the patient is stable to leave the hospital, I anticipate the patient will likely be discharged to the following environment: back to SNF I spent 69 minutes on this patient's case, and >50% was dedicated to counseling and/or care coordination. Discussed with patient/family, nursing staff, SW/CM, renal, ID, heme/onc regarding clinical status, treatment course, and disposition planning. Time of note may not reflect time of encounter. Celestine Stevens M.D. Oct 21, 2017 20:29
[2017-10-21 21:00] VITALS: BP 130/61
[2017-10-21] MEDS ORDERED: Minocycline HCl 50mg cap ORAL SCH (21:00)
[2017-10-21] MEDS: NovoLOG Insulin Flexpen SUBQ SCH (22:00)
[2017-10-21] MEDS ORDERED: Epogen (for ESRD on dialysis) SUBQ SCH (22:00)
[2017-10-21] MEDS ORDERED: Vancomycin 1.5 GM/D5W 250ML IVPB ONE (23:00)
[2017-10-21] MEDS: MEROPENEM IV SCH (23:24)
[2017-10-21] MEDS: D5W IV SCH (23:24)
[2017-10-21] MEDS: Docusate 100mg cap ORAL SCH (23:25)
[2017-10-21] MEDS: Sennosides 8.6mg ORAL SCH (23:25)
[2017-10-21] MEDS: Carvedilol 6.25mg Tab ORAL SCH (23:26)
[2017-10-22] VITALS: BP 128/64
[2017-10-22 04:00] VITALS: BP 101/53
[2017-10-22 05:51] LABS: HEMATOCRIT 22.1 % (37.0-47.0); HEMOGLOBIN 7.1 G/DL (12.0-16.0); MEAN CORPUSCULAR VOLUME 85 FL (80-99); PLATELET COUNT 151 K/UL (150-450); RED BLOOD COUNT 2.59 M/UL (4.20-5.40); RED CELL DISTRIBUTION WIDTH 19.6 % (11.6-14.8); WHITE BLOOD COUNT 9.9 K/UL (4.8-10.8)
[2017-10-22 06:00] LABS: ANION GAP 6 mmol/L (5-15); BLOOD UREA NITROGEN 17 mg/dL (7-18); CALCIUM 8.4 MG/DL (8.5-10.1); CARBON DIOXIDE 24 MMOL/L (21-32); CHLORIDE 107 MMOL/L (98-107); CREATININE 2.6 MG/DL (0.55-1.30); SODIUM 137 MMOL/L (136-145)
[2017-10-22] MEDS: NovoLOG Insulin Flexpen SUBQ SCH ×4 (06:03→21:00)
[2017-10-22 06:46] LABS: PHOSPHORUS 2.8 MG/DL (2.5-4.9)
[2017-10-22 08:00] VITALS: BP 118/60
[2017-10-22] MEDS: Docusate 100mg cap ORAL SCH ×3 (09:00→18:00)
[2017-10-22] MEDS: Miralax 17gm pkt ORAL SCH (09:00)
[2017-10-22] MEDS: Carvedilol 6.25mg Tab ORAL SCH ×2 (09:00→21:01)
[2017-10-22] MEDS ORDERED: Calcitriol 0.25mcg Cap ORAL SCH (09:00)
--- NOTE | 2017-10-22 09:26 | Diagnostic Imaging Report ---
. Indication: Reason For Exam: ABD PAIN. Technique: One view KUB Findings: The bowel gas pattern is nonobstructive. The diaphragms have been cut off this study. There is soft tissue in the pelvis, presumably a full bladder. Minimal degenerative changes noted in the spine. No free fluid. No gross free air. Impression: Minimal degenerative change in the spine. Increased soft tissue density in the pelvis, presumably a full bladder. Diaphragms cut off this study and cannot be evaluated. Otherwise negative..
--- NOTE | 2017-10-22 09:28 | Diagnostic Imaging Report ---
Indication: Reason For Exam: ABD PAIN Technique: XRAY Chest 1v Comparison:05/11/2017 Findings: The heart is probably normal in size. A left jugular dialysis permacath is in place with tip in the right atrium. Haziness is noted in both bases with blunting of the costophrenic angles and obscuration of the diaphragms consistent with pleural fluid. There appear to be some air bronchograms in the right base. Left base is opacified. Impression: Bilateral pleural effusions. Possible airspace disease in the right lower lobe and/or right middle lobe. Prominent pulmonary vascularity. This may be consistent with fluid overload. Permacath.
[2017-10-22] MEDS: D5W IV SCH (09:29)
[2017-10-22] MEDS: MEROPENEM IV SCH (09:29)
[2017-10-22] MEDS: Pantoprazole Inj IV SCH (09:29)
[2017-10-22] MEDS: Nephrovite tab (Rena-Vite) ORAL SCH (09:29)
--- NOTE | 2017-10-22 11:24 | Consultation ---
Consult Note Consult Note admitted for Anemia Patient sent for low H/H. Measured at 6.6 by outside lab. H/O ESRD on dialysis. Denies melena, bleeding, hematemesis, coffee grounds. States is on heparin. Has chronic anemia (related to ESRD). Recent admission for debridement of osteomyelitis of foot. Has wound care and WoundVac. Dialysis Sat. Has Vas Cath R chest. Some SULLIVAN and headache. No chest pain, palpitations, NVD. Rarely makes urine. No dysuria. No fevers or chills. Assessment/Plan - ESRD - DM2 (diabetes mellitus, type 2) - HTN (hypertension) - Anemia - Right Ankle wound Plan Transfuse Dialyse as needed STANLEY MIGUEL Oct 22, 2017 11:24
[2017-10-22 12:00] VITALS: BP 112/57
[2017-10-22 12:40] LABS: % IRON SATURATION 21 % (15-50); IRON 16 ug/dL (50-175); TOTAL IRON BINDING CAPACITY 77 ug/dL (250-450)
--- NOTE | 2017-10-22 13:16 | Infectious Diseases Prog Note ---
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, s/ p debridement 3) hx uti P) 1) day # 33 vancomycin, plan on 6 week tx course for corynebacterium endocarditis 2) day # 26 minocycline and meropenem for right ankle osteo, plan on 6 week tx course 3) check blood cultures and wound culture 4) watch labs Subjective Allergies: Coded Allergies: No Known Allergies (Unverified , 05/11/17) Objective Vital Signs Last 24 Hour Vital Signs Date Time Temp Pulse Resp B/P (MAP) Pulse Ox O2 Delivery O2 Flow Rate FiO2 10/22/17 12:00 98.1 67 18 112/57 99 Room Air 98.1 10/22/17 09:30 60 118/60 10/22/17 09:00 60 118/60 10/22/17 08:00 97.3 60 18 118/60 100 Room Air 97.3 10/22/17 04:00 97.4 20 101/53 98 Room Air 97.4 10/22/17 00:00 Room Air 10/22/17 00:00 97.4 76 20 128/64 100 97.4 10/21/17 23:26 70 122/59 10/21/17 21:30 98.4 79 16 130/61 98 Room Air 98.4 10/21/17 21:00 98.4 79 16 130/61 98 Room Air 98.4 10/21/17 20:00 98.4 80 17 126/60 99 Room Air 98.4 10/21/17 19:04 98.2 78 16 132/57 96 Room Air 98.2 10/21/17 17:51 98.2 84 16 148/72 96 Room Air 98.2 Height (Feet): 5 Height (Inches): 6.00 Weight (Pounds): 200 Laboratory Tests Test 10/21/17 19:14 10/22/17 04:10 White Blood Count 12.0 K/UL (4.8-10.8) H 9.9 K/UL (4.8-10.8) Red Blood Count 2.84 M/UL (4.20-5.40) L 2.59 M/UL (4.20-5.40) L Hemoglobin 7.5 G/DL (12.0-16.0) L 7.1 G/DL (12.0-16.0) L Hematocrit 24.5 % (37.0-47.0) L 22.1 % (37.0-47.0) L Mean Corpuscular Volume 86 FL (80-99) 85 FL (80-99) Mean Corpuscular Hemoglobin 26.2 PG (27.0-31.0) L 27.4 PG (27.0-31.0) Mean Corpuscular Hemoglobin Concent 30.4 G/DL (32.0-36.0) L 32.2 G/DL (32.0-36.0) Red Cell Distribution Width 19.9 % (11.6-14.8) H 19.6 % (11.6-14.8) H Platelet Count 164 K/UL (150-450) 151 K/UL (150-450) Mean Platelet Volume 7.7 FL (6.5-10.1) 7.3 FL (6.5-10.1) Neutrophils (%) (Auto) 76.1 % (45.0-75.0) H % (45.0-75.0) Lymphocytes (%) (Auto) 14.1 % (20.0-45.0) L % (20.0-45.0) Monocytes (%) (Auto) 6.7 % (1.0-10.0) % (1.0-10.0) Eosinophils (%) (Auto) 2.0 % (0.0-3.0) % (0.0-3.0) Basophils (%) (Auto) 0.8 % (0.0-2.0) % (0.0-2.0) Prothrombin Time 12.0 SEC (9.30-11.50) H Prothromb Time International Ratio 1.1 (0.9-1.1) Activated Partial Thromboplast Time 41 SEC (23-33) H Sodium Level 136 MMOL/L (136-145) 137 MMOL/L (136-145) Potassium Level 5.0 MMOL/L (3.5-5.1) 4.0 MMOL/L (3.5-5.1) Chloride Level 106 MMOL/L (98-107) 107 MMOL/L (98-107) Carbon Dioxide Level 23 MMOL/L (21-32) 24 MMOL/L (21-32) Anion Gap 7 mmol/L (5-15) 6 mmol/L (5-15) Blood Urea Nitrogen 15 mg/dL (7-18) 17 mg/dL (7-18) Creatinine 2.4 MG/DL (0.55-1.30) H 2.6 MG/DL (0.55-1.30) H Estimat Glomerular Filtration Rate 24.2 mL/min (>60) 22.2 mL/min (>60) Glucose Level 87 MG/DL (74-106) 104 MG/DL (74-106) Calcium Level 8.8 MG/DL (8.5-10.1) 8.4 MG/DL (8.5-10.1) L Total Bilirubin 0.4 MG/DL (0.2-1.0) Aspartate Amino Transf (AST/SGOT) 28 U/L (15-37) Alanine Aminotransferase (ALT/SGPT) < 6 U/L (12-78) L Alkaline Phosphatase 149 U/L (46-116) H Troponin I 0.000 ng/mL (0.000-0.056) Total Protein 6.8 G/DL (6.4-8.2) Albumin 1.7 G/DL (3.4-5.0) L Globulin 5.1 g/dL Albumin/Globulin Ratio 0.3 (1.0-2.7) L Lipase 78 U/L (73-393) Differential Total Cells Counted 100 Neutrophils % (Manual) 78 % (45-75) H Lymphocytes % (Manual) 16 % (20-45) L Monocytes % (Manual) 3 % (1-10) Eosinophils % (Manual) 2 % (0-3) Basophils % (Manual) 1 % (0-2) Band Neutrophils 0 % (0-8) Platelet Estimate Adequate Platelet Morphology Normal Hypochromasia 3+ Anisocytosis 2+ Spherocytes 1+ Hemoglobin A1c 5.8 % (4.3-6.0) Phosphorus Level 2.8 MG/DL (2.5-4.9) Magnesium Level 1.8 MG/DL (1.8-2.4) Iron Level 16 ug/dL (50-175) L Total Iron Binding Capacity 77 ug/dL (250-450) L Percent Iron Saturation 21 % (15-50) Unsaturated Iron Binding 61 ug/dL (112-346) L Ferritin Pending Current Medications Medications (Trade) Dose Ordered Sig/Andre Route PRN Reason Start Time Stop Time Status Last Admin Dose Admin Acetaminophen (Tylenol) 650 mg Q4H PRN ORAL Mild Pain (Pain Scale 1-3) 10/21/17 20:15 11/20/17 20:14 10/22/17 01:12 Acetaminophen (Tylenol) 650 mg Q4H PRN ORAL fever (temp>100.5F) 10/21/17 20:15 11/20/17 20:14 Acetaminophen/ Hydrocodone Bitart (Butler 5/325) 1 tab Q4H PRN ORAL pain 4-10 10/21/17 20:15 10/28/17 20:14 Amlodipine Besylate (Norvasc) 5 mg DAILY ORAL 10/23/17 09:00 11/21/17 08:59 Bisacodyl (Dulcolax) 10 mg HSPRN PRN RECTAL Constipation 10/21/17 20:15 11/20/17 20:14 Carvedilol (Coreg) 6.25 mg EVERY 12 HOURS ORAL 10/21/17 22:00 11/20/17 21:59 10/21/17 23:26 Dextrose (Dextrose 50%) STAT PRN IV Hypoglycemia 10/21/17 20:30 11/20/17 20:29 Docusate Sodium (Colace) 100 mg TID ORAL 10/22/17 13:00 11/20/17 20:59 Epoetin Marcus (Procrit (for ESRD on dialysis)) 10,000 units TUE-TUE-TUE SUBQ 10/21/17 22:00 11/20/17 21:59 10/21/17 23:28 Gabapentin (Neurontin) 100 mg QHS ORAL 10/21/17 22:00 11/20/17 21:59 10/21/17 23:25 Hydralazine HCl (Apresoline) 25 mg Q4H PRN ORAL SBP>160 10/21/17 20:15 11/20/17 20:14 Insulin Aspart (NovoLOG) BEFORE MEALS AND HS SUBQ 10/21/17 22:00 11/20/17 21:59 10/22/17 06:03 Meropenem 500 mg/ Dextrose 55 ml @ 110 mls/hr Q12HR IV 10/21/17 22:00 10/26/17 21:59 10/22/17 09:29 Minocycline HCl (Minocin) 200 mg Q12HR ORAL 10/21/17 21:00 10/28/17 20:59 UNV Ondansetron HCl (Zofran) 4 mg Q6H PRN IVP Nausea & Vomiting 10/21/17 20:15 11/20/17 20:14 Pantoprazole (Protonix) 40 mg DAILY IV 10/22/17 09:00 11/21/17 08:59 10/22/17 09:29 Polyethylene Glycol (Miralax) 17 gm DAILY ORAL 10/22/17 09:00 11/21/17 08:59 Sennosides (Senokot) 2 tab QHS ORAL 10/21/17 22:00 11/20/17 21:59 10/21/17 23:25 Simethicone (Mylicon) 80 mg Q6H PRN ORAL GAS PAIN 10/21/17 20:15 11/20/17 20:14 Vancomycin HCl (Vanco rx to dose) 1 ea DAILY PRN MISC Per rx protocol 10/21/17 20:15 11/20/17 20:14 Vitamin B Complex/ Vit C/Folic Acid (Nephrovite) 1 tab DAILY ORAL 10/22/17 09:00 11/21/17 08:59 10/22/17 09:29 OBIE DENISE Oct 22, 2017 13:16
[2017-10-22 13:17] LABS: FERRITIN 1845 NG/ML (8-388)
[2017-10-22 16:00] VITALS: BP 115/61
--- NOTE | 2017-10-22 18:07 | Cardiology Report ---
APPROVED REPORT EKG Measurement Heart [id number] Normal sinus rhythm Normal ECG
[2017-10-22 20:00] VITALS: BP 119/53
[2017-10-22] MEDS: Minocycline HCl 50mg cap ORAL SCH (20:59)
[2017-10-22] MEDS: Sennosides 8.6mg ORAL SCH (21:01)
[2017-10-22] MEDS ORDERED: MEROPENEM IV SCH (22:00)
[2017-10-22] MEDS ORDERED: Meropenem 1 GM in NS 110 ML IVPB SCH (22:00)
[2017-10-22] MEDS ORDERED: D5W IV SCH (22:00)
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
[2017-10-23] VITALS: BP 120/65
[2017-10-23 04:00] VITALS: BP 128/64
[2017-10-23] MEDS ORDERED: Vancomycin 1250mg/D5W 250ml IVPB ONE (06:00)
[2017-10-23] MEDS: NovoLOG Insulin Flexpen SUBQ SCH ×4 (06:22→21:18)
[2017-10-23 07:32] LABS: HEMATOCRIT 25.2 % (37.0-47.0); HEMOGLOBIN 7.9 G/DL (12.0-16.0); MEAN CORPUSCULAR VOLUME 87 FL (80-99); PLATELET COUNT 178 K/UL (150-450); RED CELL DISTRIBUTION WIDTH 18.9 % (11.6-14.8); WHITE BLOOD COUNT 11.1 K/UL (4.8-10.8)
[2017-10-23 07:33] LABS: ALANINE AMINOTRANSFERASE < 6 U/L (12-78); ALBUMIN 1.6 G/DL (3.4-5.0); ALBUMIN/GLOBULIN RATIO 0.3 (1.0-2.7); ALKALINE PHOSPHATASE 153 U/L (46-116); ANION GAP 7 mmol/L (5-15); ASPARTATE AMINO TRANSFERASE 14 U/L (15-37); BILIRUBIN,TOTAL 0.4 MG/DL (0.2-1.0); BLOOD UREA NITROGEN 21 mg/dL (7-18); CALCIUM 8.7 MG/DL (8.5-10.1); CARBON DIOXIDE 22 MMOL/L (21-32); CHLORIDE 107 MMOL/L (98-107); CREATININE 3.2 MG/DL (0.55-1.30); POTASSIUM 4.1 MMOL/L (3.5-5.1); SODIUM 136 MMOL/L (136-145)
[2017-10-23 08:00] VITALS: BP 129/68
[2017-10-23] MEDS: Docusate 100mg cap ORAL SCH ×4 (09:00→17:27)
[2017-10-23] MEDS: Miralax 17gm pkt ORAL SCH (09:00)
[2017-10-23] MEDS: Pantoprazole Inj IV SCH (09:05)
[2017-10-23] MEDS: Nephrovite tab (Rena-Vite) ORAL SCH (09:06)
[2017-10-23] MEDS: Carvedilol 6.25mg Tab ORAL SCH ×2 (09:06→21:10)
[2017-10-23] MEDS: Minocycline HCl 50mg cap ORAL SCH ×2 (09:06→21:09)
[2017-10-23 12:01] VITALS: BP 120/59
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
--- NOTE | 2017-10-23 13:33 | Nephrology Progress Note ---
Assessment/Plan Problem List: (1) acute on chronic anemia (2) ESRD (end stage renal disease) on dialysis Assessment - ESRD - DM2 (diabetes mellitus, type 2) - HTN (hypertension) - Anemia - Right Ankle wound Transfuse Dialyse as needed Plan Transfused Dialyse as needed, scheduled for 10/24 discussed wu PMD Subjective ROS Limited/Unobtainable: No Constitutional: Reports: malaise Objective Objective Last 24 Hour Vital Signs Date Time Temp Pulse Resp B/P (MAP) Pulse Ox O2 Delivery O2 Flow Rate FiO2 10/23/17 12:01 97.7 66 20 120/59 97 Room Air 97.7 10/23/17 09:07 67 129/68 10/23/17 09:06 67 129/68 10/23/17 08:00 97.3 67 19 129/68 97 Room Air 97.3 10/23/17 04:00 97.4 69 20 128/64 98 97.4 10/23/17 00:00 97.2 70 20 120/65 97 97.2 10/22/17 21:01 70 119/53 10/22/17 20:00 97.9 70 20 119/53 98 Room Air 97.9 10/22/17 16:00 97.9 72 18 115/61 98 Room Air 97.9 Intake and Output 10/22/17 10/23/17 19:00 07:00 Intake Total 55 ml 340 ml Balance 55 ml 340 ml Intake Oral 120 ml IV Total 55 ml 220 ml # Voids 3 3 # Bowel Movements 1 2 Laboratory Tests 10/22/17 18:00: Random Vancomycin Level 21.3 10/23/17 05:30: White Blood Count 11.1H, Red Blood Count 2.90L, Hemoglobin 7.9L, Hematocrit 25.2L, Mean Corpuscular Volume 87, Mean Corpuscular Hemoglobin 27.4, Mean Corpuscular Hemoglobin Concent 31.5L, Red Cell Distribution Width 18.9H, Platelet Count 178, Mean Platelet Volume 7.8, Neutrophils (%) (Auto) , Lymphocytes (%) (Auto) , Monocytes (%) (Auto) , Eosinophils (%) (Auto) , Basophils (%) (Auto) , Differential Total Cells Counted 100, Neutrophils % ( Manual) 83H, Lymphocytes % (Manual) 6L, Monocytes % (Manual) 9, Eosinophils % ( Manual) 2, Basophils % (Manual) 0, Band Neutrophils 0, Platelet Estimate Adequate, Platelet Morphology Normal, Hypochromasia 1+, Anisocytosis 1+, Sodium Level 136, Potassium Level 4.1, Chloride Level 107, Carbon Dioxide Level 22, Anion Gap 7, Blood Urea Nitrogen 21H, Creatinine 3.2H, Estimat Glomerular Filtration Rate 17.5, Glucose Level 127H, Uric Acid 4.0, Calcium Level 8.7, Phosphorus Level 3.0, Magnesium Level 2.1, Total Bilirubin 0.4, Aspartate Amino Transf (AST/SGOT) 14L, Alanine Aminotransferase (ALT/SGPT) < 6L, Alkaline Phosphatase 153H, C-Reactive Protein, Quantitative 5.9H, Total Protein 6.4, Albumin 1.6L, Globulin 4.8, Albumin/Globulin Ratio 0.3L Height (Feet): 5 Height (Inches): 6.00 Weight (Pounds): 200 General Appearance: no apparent distress, lethargic Cardiovascular: normal rate Respiratory/Chest: decreased breath sounds Abdomen: soft Objective no change STANLEY MIGUEL Oct 23, 2017 13:33
--- NOTE | 2017-10-23 14:36 | Infectious Diseases Prog Note ---
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, s/p debridement 3) hx uti P) 1) day # 34 vancomycin, plan on 6 week tx course for corynebacterium endocarditis 2) day # 27 minocycline and meropenem for right ankle osteo, plan on 6 week tx course 3) check blood cultures and wound culture - gram neg so far growing 4) watch labs 5) vre colonization Subjective Constitutional: Denies: fever HEENT: Denies: congestion Respiratory: Denies: shortness of breath Cardiovascular: Denies: chest pain Gastrointestinal/Abdominal: Denies: nausea, vomiting Neurologic: Denies: headache Psychiatric: Denies: depression Skin: Denies: rash Musculoskeletal: Denies: pain Allergies: Coded Allergies: No Known Allergies (Unverified , 05/11/17) Objective Vital Signs Last 24 Hour Vital Signs Date Time Temp Pulse Resp B/P (MAP) Pulse Ox O2 Delivery O2 Flow Rate FiO2 10/23/17 12:01 97.7 66 20 120/59 97 Room Air 97.7 10/23/17 09:07 67 129/68 10/23/17 09:06 67 129/68 10/23/17 08:00 97.3 67 19 129/68 97 Room Air 97.3 10/23/17 04:00 97.4 69 20 128/64 98 97.4 10/23/17 00:00 97.2 70 20 120/65 97 97.2 10/22/17 21:01 70 119/53 10/22/17 20:00 97.9 70 20 119/53 98 Room Air 97.9 10/22/17 16:00 97.9 72 18 115/61 98 Room Air 97.9 Height (Feet): 5 Height (Inches): 6.00 Weight (Pounds): 200 General Appearance: no acute distress HEENT: normocephalic, atraumatic, anicteric, mucous membranes moist Respiratory/Chest: lungs clear, normal breath sounds, no respiratory distress Cardiovascular: normal rate, regular rhythm Abdomen: normal bowel sounds, soft, non tender, no organomegaly Microbiology Date/Time Source Procedure Growth Status 10/21/17 19:15 Nasal Nares MRSA Culture - Final NO METHICILLIN RESISTANT STAPH AUREUS... Complete 10/22/17 01:30 Foot Right Gram Stain - Final Resulted 10/22/17 01:30 Wound Culture - Preliminary Gram Negative Bacillus 1 Resulted 10/21/17 19:15 Rectum VRE Culture - Final Enterococcus Faecium - Vre Complete Laboratory Tests Test 10/22/17 18:00 10/23/17 05:30 Random Vancomycin Level 21.3 ug/mL White Blood Count 11.1 K/UL (4.8-10.8) H Red Blood Count 2.90 M/UL (4.20-5.40) L Hemoglobin 7.9 G/DL (12.0-16.0) L Hematocrit 25.2 % (37.0-47.0) L Mean Corpuscular Volume 87 FL (80-99) Mean Corpuscular Hemoglobin 27.4 PG (27.0-31.0) Mean Corpuscular Hemoglobin Concent 31.5 G/DL (32.0-36.0) L Red Cell Distribution Width 18.9 % (11.6-14.8) H Platelet Count 178 K/UL (150-450) Mean Platelet Volume 7.8 FL (6.5-10.1) Neutrophils (%) (Auto) % (45.0-75.0) Lymphocytes (%) (Auto) % (20.0-45.0) Monocytes (%) (Auto) % (1.0-10.0) Eosinophils (%) (Auto) % (0.0-3.0) Basophils (%) (Auto) % (0.0-2.0) Differential Total Cells Counted 100 Neutrophils % (Manual) 83 % (45-75) H Lymphocytes % (Manual) 6 % (20-45) L Monocytes % (Manual) 9 % (1-10) Eosinophils % (Manual) 2 % (0-3) Basophils % (Manual) 0 % (0-2) Band Neutrophils 0 % (0-8) Platelet Estimate Adequate Platelet Morphology Normal Hypochromasia 1+ Anisocytosis 1+ Sodium Level 136 MMOL/L (136-145) Potassium Level 4.1 MMOL/L (3.5-5.1) Chloride Level 107 MMOL/L (98-107) Carbon Dioxide Level 22 MMOL/L (21-32) Anion Gap 7 mmol/L (5-15) Blood Urea Nitrogen 21 mg/dL (7-18) H Creatinine 3.2 MG/DL (0.55-1.30) H Estimat Glomerular Filtration Rate 17.5 mL/min (>60) Glucose Level 127 MG/DL (74-106) H Uric Acid 4.0 MG/DL (2.6-7.2) Calcium Level 8.7 MG/DL (8.5-10.1) Phosphorus Level 3.0 MG/DL (2.5-4.9) Magnesium Level 2.1 MG/DL (1.8-2.4) Total Bilirubin 0.4 MG/DL (0.2-1.0) Aspartate Amino Transf (AST/SGOT) 14 U/L (15-37) L Alanine Aminotransferase (ALT/SGPT) < 6 U/L (12-78) L Alkaline Phosphatase 153 U/L (46-116) H C-Reactive Protein, Quantitative 5.9 mg/dL (0.00-0.90) H Total Protein 6.4 G/DL (6.4-8.2) Albumin 1.6 G/DL (3.4-5.0) L Globulin 4.8 g/dL Albumin/Globulin Ratio 0.3 (1.0-2.7) L Current Medications Medications (Trade) Dose Ordered Sig/Andre Route PRN Reason Start Time Stop Time Status Last Admin Dose Admin Acetaminophen (Tylenol) 650 mg Q4H PRN ORAL Mild Pain (Pain Scale 1-3) 10/21/17 20:15 11/20/17 20:14 10/22/17 01:12 Acetaminophen (Tylenol) 650 mg Q4H PRN ORAL fever (temp>100.5F) 10/21/17 20:15 11/20/17 20:14 Acetaminophen/ Hydrocodone Bitart ([place]idan 5/325) 1 tab Q4H PRN ORAL pain 4-10 10/21/17 20:15 10/28/17 20:14 Amlodipine Besylate (Norvasc) 5 mg DAILY ORAL 10/23/17 09:00 11/21/17 08:59 10/23/17 09:07 Bisacodyl (Dulcolax) 10 mg HSPRN PRN RECTAL Constipation 10/21/17 20:15 11/20/17 20:14 Carvedilol (Coreg) 6.25 mg EVERY 12 HOURS ORAL 10/21/17 22:00 11/20/17 21:59 10/23/17 09:06 Dextrose (Dextrose 50%) STAT PRN IV Hypoglycemia 10/21/17 20:30 11/20/17 20:29 Docusate Sodium (Colace) 100 mg TID ORAL 10/22/17 13:00 11/20/17 20:59 Epoetin Marcus (Procrit (for ESRD on dialysis)) 10,000 units TUE-TUE-TUE SUBQ 10/21/17 22:00 11/20/17 21:59 10/21/17 23:28 Gabapentin (Neurontin) 100 mg QHS ORAL 10/21/17 22:00 11/20/17 21:59 10/22/17 20:59 Hydralazine HCl (Apresoline) 25 mg Q4H PRN ORAL SBP>160 10/21/17 20:15 11/20/17 20:14 Insulin Aspart (NovoLOG) BEFORE MEALS AND HS SUBQ 10/21/17 22:00 11/20/17 21:59 10/23/17 11:54 Meropenem 1 gm/ Sodium Chloride 110 ml @ 220 mls/hr DAILY@2200 IVPB 10/22/17 22:00 10/27/17 21:59 10/22/17 22:00 Minocycline HCl (Minocin) 200 mg Q12HR ORAL 10/22/17 21:00 10/29/17 20:59 10/23/17 09:06 Ondansetron HCl (Zofran) 4 mg Q6H PRN IVP Nausea & Vomiting 10/21/17 20:15 11/20/17 20:14 Pantoprazole (Protonix) 40 mg DAILY IV 10/22/17 09:00 11/21/17 08:59 10/23/17 09:05 Polyethylene Glycol (Miralax) 17 gm DAILY ORAL 10/22/17 09:00 11/21/17 08:59 Sennosides (Senokot) 2 tab QHS ORAL 10/21/17 22:00 11/20/17 21:59 10/22/17 21:01 Simethicone (Mylicon) 80 mg Q6H PRN ORAL GAS PAIN 10/21/17 20:15 11/20/17 20:14 Vancomycin HCl (Vanco rx to dose) 1 ea DAILY PRN MISC Per rx protocol 10/21/17 20:15 11/20/17 20:14 Vitamin B Complex/ Vit C/Folic Acid (Nephrovite) 1 tab DAILY ORAL 10/22/17 09:00 11/21/17 08:59 10/23/17 09:06 OBIE DENISE Oct 23, 2017 14:36
[2017-10-23 16:02] VITALS: BP 112/53
[2017-10-23 20:00] VITALS: BP 133/60
[2017-10-23] MEDS: Sennosides 8.6mg ORAL SCH (21:14)
[2017-10-23] MEDS ORDERED: Meropenem 1 GM in D5W 110 ML IVPB SCH (22:00)
--- NOTE | 2017-10-23 22:23 | General Progress Note ---
Assessment/Plan Problem List: (1) acute on chronic anemia (2) ESRD (end stage renal disease) on dialysis ICD Codes: N18.6 - End stage renal disease; Z99.2 - Dependence on renal dialysis SNOMED: 206721736 (3) DM2 (diabetes mellitus, type 2) ICD Codes: E11.9 - Type 2 diabetes mellitus without complications SNOMED: 45163205 (4) Endocarditis of mitral valve ICD Codes: I05.8 - Other rheumatic mitral valve diseases SNOMED: 33943702 (5) Corynebacterium striatum group bacteremia (6) R ankle fracture s/p ORIF on 05/13/17 and subsequenthardware failure and displaced oblique fractures of distal fibula and tibia (7) HTN (hypertension) ICD Codes: I10 - Essential (primary) hypertension SNOMED: 38929632 (8) HLD (hyperlipidemia) ICD Codes: E78.5 - Hyperlipidemia, unspecified SNOMED: 32573406 Status: stable Assessment/Plan Heme/onc, renal and ID consulted s/p 1U pRBC yesterday Transfuse annother 1U pRBC today Trend CBC Cont HD per renal - plan for HD tomorrow per renal Cont vanco given mitral valve endocarditis 2/2 Corynebacterium striatum group bacteremia - day Cont meropenem and minocycline given R ankle osteomyelitis - day Cont SNF meds ILANA Pain control, bowel regimen Supportive care DC planning for tomorrow, after HD DVT Prophylaxis: SCD, HSQ Code Status: Full Hospital Classification Declaration: Based on this initial evaluation, and depending on the patient's clinical course, I anticipate that this patient will require hospitalization for 1-2 days for anemia and close respiratory/ hemodynamic monitoring. Disposition: Once the patient is stable to leave the hospital, I anticipate the patient will likely be discharged to the following environment: back to SNF I spent 41 miinutes on this patient's case, and >50% was dedicated to counseling and/or care coordination. Discussed with patient/family, nursing staff, SW/CM, renal, ID, heme/onc regarding clinical status, treatment course, and disposition planning. Time of note may not reflect time of encounter. Subjective Date patient seen: Oct 23, 2017 Time patient seen: 12:00 ROS Limited/Unobtainable: No Constitutional: Reports: no symptoms HEENT: Reports: no symptoms Cardiovascular: Reports: no symptoms Respiratory: Reports: no symptoms Gastrointestinal/Abdominal: Reports: no symptoms Genitourinary: Reports: no symptoms Neurologic/Psychiatric: Reports: no symptoms Endocrine: Reports: no symptoms Hematologic/Lymphatic: Reports: no symptoms Allergies: Coded Allergies: No Known Allergies (Unverified , 05/11/17) All Systems: reviewed and negative except above Subjective No acute o/n events Hgb 7.9 this AM s/p 1U pRBC yesterday Pt denies pain, f/c, n/v, d/c, chest pain, SOB, melena, BRBPR Objective Last 24 Hour Vital Signs Date Time Temp Pulse Resp B/P (MAP) Pulse Ox O2 Delivery O2 Flow Rate FiO2 10/23/17 21:10 62 133/60 10/23/17 20:00 97.4 62 18 133/60 99 97.4 10/23/17 16:02 97.9 64 18 112/53 99 Room Air 97.9 10/23/17 12:01 97.7 66 20 120/59 97 Room Air 97.7 10/23/17 09:07 67 129/68 10/23/17 09:06 67 129/68 10/23/17 08:00 97.3 67 19 129/68 97 Room Air 97.3 10/23/17 04:00 97.4 69 20 128/64 98 97.4 10/23/17 00:00 97.2 70 20 120/65 97 97.2 Intake and Output 10/22/17 10/23/17 19:00 07:00 Intake Total 55 ml 340 ml Balance 55 ml 340 ml Intake Oral 120 ml IV Total 55 ml 220 ml # Voids 3 3 # Bowel Movements 1 2 Laboratory Tests 10/23/17 05:30: White Blood Count 11.1H, Red Blood Count 2.90L, Hemoglobin 7.9L, Hematocrit 25.2L, Mean Corpuscular Volume 87, Mean Corpuscular Hemoglobin 27.4, Mean Corpuscular Hemoglobin Concent 31.5L, Red Cell Distribution Width 18.9H, Platelet Count 178, Mean Platelet Volume 7.8, Neutrophils (%) (Auto) , Lymphocytes (%) (Auto) , Monocytes (%) (Auto) , Eosinophils (%) (Auto) , Basophils (%) (Auto) , Differential Total Cells Counted 100, Neutrophils % ( Manual) 83H, Lymphocytes % (Manual) 6L, Monocytes % (Manual) 9, Eosinophils % ( Manual) 2, Basophils % (Manual) 0, Band Neutrophils 0, Platelet Estimate Adequate, Platelet Morphology Normal, Hypochromasia 1+, Anisocytosis 1+, Sodium Level 136, Potassium Level 4.1, Chloride Level 107, Carbon Dioxide Level 22, Anion Gap 7, Blood Urea Nitrogen 21H, Creatinine 3.2H, Estimat Glomerular Filtration Rate 17.5, Glucose Level 127H, Uric Acid 4.0, Calcium Level 8.7, Phosphorus Level 3.0, Magnesium Level 2.1, Total Bilirubin 0.4, Aspartate Amino Transf (AST/SGOT) 14L, Alanine Aminotransferase (ALT/SGPT) < 6L, Alkaline Phosphatase 153H, C-Reactive Protein, Quantitative 5.9H, Total Protein 6.4, Albumin 1.6L, Globulin 4.8, Albumin/Globulin Ratio 0.3L Height (Feet): 5 Height (Inches): 6.00 Weight (Pounds): 200 Objective General: alert, cooperative, no distress, appears stated age Head: normocephalic, without obvious abnormality, atraumatic Eyes: conjunctivae/corneas clear. PERRL, EOM's intact Throat: lips, mucosa, and tongue normal. MMM Neck: supple, symmetrical, trachea midline, and no JVD Lungs: clear to auscultation bilaterally Heart: regular rate and rhythm, S1, S2 normal, no murmur, click, rub or gallop Abdomen: soft, non-tender, non-distended, bowel sounds normal; no masses or organomegaly Extremities: extremities normal, atraumatic, no cyanosis or edema Pulses: 2+ and symmetric Skin: dressing c/d/i Neurologic: 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, no focal deficits Celestine Stevens M.D. Oct 23, 2017 22:23
[2017-10-24] VITALS (7 sets, daily range): BP systolic 116–169; BP diastolic 57–80
--- NOTE | 2017-10-24 03:30 | Consultation ---
DATE OF CONSULTATION: 10/23/2017 INFECTIOUS DISEASES CONSULTATION/PROGRESS NOTE CONSULTING PHYSICIAN: Melody Cortes M.D. ATTENDING PHYSICIAN: Pierre Coughlin M.D. REFERRING PHYSICIAN: Celestine Stevens M.D. CLINICAL NOTE: The patient is known to me from [facility] and from recurrent admissions with infected right ankle and most recently with Corynebacterium endocarditis and bacteremia. The patient was admitted to [facility] with severe anemia. Infectious Diseases consultation is requested for followup. The patient also has a history of Acinetobacter right ankle infected wound and osteomyelitis. REVIEW OF SYSTEMS: CONSTITUTIONAL: The patient has generalized weakness and fatigue. She has hemodialysis. She has no Boyd. HEAD AND NECK: No head pain or neck pain. No thrush or dysphagia. No fever or chills. CARDIAC: No chest pain or palpitations. GASTROINTESTINAL: No nausea, vomiting, or diarrhea. GENITOURINARY: No Boyd. PULMONARY: No congestion, shortness of breath, hemoptysis, or secretions. No mention of night sweats, fever, or chills. The patient has generalized fatigue and weakness. SKIN: No rash or itching. EXTREMITIES: No extremity pain. Right ankle pain is controlled. NEUROLOGIC: No seizures. PHYSICAL EXAMINATION: GENERAL: Alert, responsive, no acute distress. VITAL SIGNS: Temperature 97.7 degrees, pulse rate is 66, respiratory rate 20, blood pressure 120/59, and O2 saturation 97%. HEAD AND NECK: Oral, no thrush. Eye exam, no icterus. Normocephalic. No facial droop. No neck stiffness. Neck is supple. HEART: Regular. No rub, gallop, or murmur. ABDOMEN: Soft. Positive bowel sounds. Nontender. LUNGS: Clear bilaterally. No rhonchi or rales. SKIN: No rash. MUSCULOSKELETAL: No effusions. Legs are without cellulitis. PERIPHERAL VASCULAR: Right foot is covered. She has a wound VAC of her right ankle. Right heel wound looks somewhat infected. Right foot second toe anterior part shows scabbed over wound. Already mentioned, the right ankle has wound VAC. The heel has some areas of slough, right heel. NEUROLOGIC: Responsive, generalized weakness. LINES: Line sites without phlebitis. GENITOURINARY: No Boyd. No CVA tenderness. LABORATORY AND DIAGNOSTIC DATA: White count was 12.0, now it is 11.1, hemoglobin 7.9. Creatinine 3.2. Cultures, wound culture I believe from the right heel and foot shows gram-negatives. VRE screen is positive. MRSA screen is negative. White count on admission 12.0. Imaging studies, chest x-ray showed effusions, possible interstitial disease in the right lobe and middle lobe. ASSESSMENT AND PLAN: 1. The patient has a history of Corynebacterium striatum bacteremia with endocarditis with vegetations seen on MEGA and TTE at [facility]. The patient also has a history of right ankle osteo. Right ankle culture grew out Acinetobacter that is pansensitive to minocycline. The patient has a history of E. coli urinary tract infection that is treated with meropenem. The patient currently has mild leukocytosis and right heel wound and foot culture growing gram negatives and VRE colonized. The patient's Acinetobacter at [facility] was sensitive to minocycline and the Corynebacterium striatum was sensitive to vancomycin. At this time, she is currently on meropenem, vancomycin, and minocycline. Today is day #34 of vancomycin to treat the Corynebacterium endocarditis. Plan on 6 weeks total, at least 4 weeks, probably to 6 weeks total. The patient also on minocycline and meropenem and vancomycin day #27 out of 6-week treatment course. This is likely polymicrobial infection and Acinetobacter sensitive to minocycline. I discussed the case with the pharmacy at [facility] where the 200 b.i.d. dose was appropriate for bone levels. In addition, she has gram-negative growing from I believe the right foot heel wound. At this time, await the culture results. Continue wound care protocol. Consider Podiatry evaluation also. Continue antibiotics now, vancomycin, meropenem, and minocycline. Check the followup blood cultures, wound culture, and laboratories. Continue wound care protocol. Watch white cell count. 2. The patient has a history of end-stage renal disease, on hemodialysis and chronic renal failure. 3. Anemia history. 4. The patient is status post right ankle infected wound debridement and removal of open reduction and internal fixation. She also is status post debridement and removal of external fixation. The patient also was debrided multiple times by Surgery and Podiatry at [facility]. The patient is currently on a wound VAC. Continue wound care and wound VAC. 5. History of right heel gangrene and infected wound. 6. Peripheral artery disease. 7. Diabetes mellitus. 8. Hypertension. 9. History of . 10. Hyperlipidemia. 11. Allergies are negative. 12. Family history is noncontributory. 13. Social history is negative. 14. MAR was noted. 15. Case discussed with RN. 16. Notes were reviewed. 17. Skin care protocol. 18. Orders were entered. 19. 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 20. Continue treatment per primary consultants. 21. Notes and records noted. Orders were noted. Melody Cortes M.D. DR: FREDDY JOB#: [id number] CC:
[2017-10-24] MEDS: NovoLOG Insulin Flexpen SUBQ SCH ×3 (06:04→17:25)
[2017-10-24 06:27] LABS: BASOPHILS % (AUTO) 0.6 % (0.0-2.0); EOSINOPHILS % (AUTO) 3.5 % (0.0-3.0); LYMPHOCYTES % (AUTO) 18.8 % (20.0-45.0); MEAN CORPUSCULAR VOLUME 88 FL (80-99); MONOCYTES % (AUTO) 6.5 % (1.0-10.0); NEUTROPHILS % (AUTO) 70.6 % (45.0-75.0); PLATELET COUNT 160 K/UL (150-450); RED CELL DISTRIBUTION WIDTH 18.1 % (11.6-14.8); WHITE BLOOD COUNT 9.8 K/UL (4.8-10.8)
[2017-10-24 07:42] LABS: ALANINE AMINOTRANSFERASE 7 U/L (12-78); ALBUMIN 1.6 G/DL (3.4-5.0); ALBUMIN/GLOBULIN RATIO 0.3 (1.0-2.7); ALKALINE PHOSPHATASE 147 U/L (46-116); ANION GAP 7 mmol/L (5-15); ASPARTATE AMINO TRANSFERASE 13 U/L (15-37); BILIRUBIN,TOTAL 0.4 MG/DL (0.2-1.0); BLOOD UREA NITROGEN 26 mg/dL (7-18); CALCIUM 8.7 MG/DL (8.5-10.1); CARBON DIOXIDE 22 MMOL/L (21-32); CHLORIDE 106 MMOL/L (98-107); CREATININE 3.7 MG/DL (0.55-1.30); POTASSIUM 4.2 MMOL/L (3.5-5.1); SODIUM 135 MMOL/L (136-145)
[2017-10-24 08:23] LABS: PHOSPHORUS 3.1 MG/DL (2.5-4.9)
[2017-10-24] MEDS: Miralax 17gm pkt ORAL SCH ×2 (09:00→10:15)
[2017-10-24] MEDS: Carvedilol 6.25mg Tab ORAL SCH ×2 (09:00→20:02)
--- NOTE | 2017-10-24 10:06 | Nephrology Progress Note ---
Assessment/Plan Problem List: (1) acute on chronic anemia (2) ESRD (end stage renal disease) on dialysis Assessment - ESRD - DM2 (diabetes mellitus, type 2) - HTN (hypertension) - Anemia - Right Ankle wound Transfuse Dialyse as needed Plan Transfused Dialyse as needed, scheduled for 10/24 discussed wu PMD Subjective ROS Limited/Unobtainable: No Constitutional: Reports: malaise Objective Objective Last 24 Hour Vital Signs Date Time Temp Pulse Resp B/P (MAP) Pulse Ox O2 Delivery O2 Flow Rate FiO2 10/24/17 04:00 97.3 64 18 116/60 98 97.3 10/24/17 00:00 97.5 71 18 138/57 100 97.5 10/23/17 21:10 62 133/60 10/23/17 20:00 97.4 62 18 133/60 99 97.4 10/23/17 16:02 97.9 64 18 112/53 99 Room Air 97.9 10/23/17 12:01 97.7 66 20 120/59 97 Room Air 97.7 Intake and Output 10/23/17 10/24/17 19:00 07:00 Intake Total 960 ml 220 ml Balance 960 ml 220 ml Intake Oral 960 ml IV Total 220 ml # Voids 4 5 # Bowel Movements 3 2 Laboratory Tests 10/24/17 05:10: White Blood Count 9.8, Red Blood Count 3.30L, Hemoglobin 9.0L, Hematocrit 29.0L , Mean Corpuscular Volume 88, Mean Corpuscular Hemoglobin 27.2, Mean Corpuscular Hemoglobin Concent 31.0L, Red Cell Distribution Width 18.1H, Platelet Count 160, Mean Platelet Volume 6.5, Neutrophils (%) (Auto) 70.6, Lymphocytes (%) (Auto) 18.8L, Monocytes (%) (Auto) 6.5, Eosinophils (%) (Auto) 3.5H, Basophils (%) (Auto) 0.6, Sodium Level 135L, Potassium Level 4.2, Chloride Level 106, Carbon Dioxide Level 22, Anion Gap 7, Blood Urea Nitrogen 26H, Creatinine 3.7H, Estimat Glomerular Filtration Rate 14.8, Glucose Level 102 , Uric Acid 4.6, Calcium Level 8.7, Phosphorus Level 3.1, Magnesium Level 2.0, Total Bilirubin 0.4, Aspartate Amino Transf (AST/SGOT) 13L, Alanine Aminotransferase (ALT/SGPT) 7L, Alkaline Phosphatase 147H, Pro-B-Type Natriuretic Peptide 40456G, Total Protein 6.3L, Albumin 1.6L, Globulin 4.7, Albumin/Globulin Ratio 0.3L, Random Vancomycin Level 19.5 Height (Feet): 5 Height (Inches): 6.00 Weight (Pounds): 200 General Appearance: no apparent distress Objective no change STANLEY MIGUEL Oct 24, 2017 10:06
[2017-10-24] MEDS: Pantoprazole Inj IV SCH (10:12)
[2017-10-24] MEDS: Minocycline HCl 50mg cap ORAL SCH (10:15)
[2017-10-24] MEDS: Nephrovite tab (Rena-Vite) ORAL SCH (10:15)
[2017-10-24] MEDS: Docusate 100mg cap ORAL SCH ×3 (10:16→17:58)
--- NOTE | 2017-10-24 12:08 | Consultation ---
History of Present Illness General Date patient seen: Oct 22, 2017 Chief Complaint: Abnormal Labs Present Illness HPI 71y/o female with pmh of HTN, HLD IDDM type 2, ESRD on HD, nephrotic syndrome, chronic diastolic heart failure, legal blindness, R ankle fracture s/p ORIF. The pt pw anxiety and low energy. the pt at times has difficulty sleeping. no si /hi Allergies: Coded Allergies: No Known Allergies (Unverified , 05/11/17) Medication History Scheduled Amlodipine Besylate (Norvasc), 5 MG ORAL BID Bisacodyl* (Dulcolax*), 10 MG RECTAL DAILY, (Reported) Calcitriol (Calcitriol*), 0.5 MCG PO DAILY, (Reported) Carvedilol (Coreg), 6.25 MG ORAL EVERY 12 HOURS Docusate Sodium* (Colace*), 100 MG ORAL THREE TIMES A DAY Epoetin Marcus (Procrit), 10,000 UNITS SUBQ TUE-TUE-TUE Ferrous Sulfate* (Ferrous Sulfate*), 325 MG ORAL DAILY, (Reported) Gabapentin* (Gabapentin*), 100 MG ORAL HS, (Reported) Heparin Sod (Porcine) (Heparin Sodium*), 5,000 UNITS SUBQ EVERY 12 HOURS Insulin Aspart (Novolog Flexpen), 0 UNITS SUBQ AC+HS Losartan Potassium* (Losartan Potassium*), 25 MG ORAL DAILY, (Reported) Meropenem (Meropenem), 1 GM IV DAILY, (Reported) Minocycline Hcl (Minocycline Hcl), 100 MG PO EVERY 12 HOURS, (Reported) Nateglinide* (Starlix*), 60 MG ORAL TIAC Nateglinide* (Starlix*), 60 MG ORAL AC, (Reported) Oxycodone Hcl Er* (Oxycontin*), 20 MG ORAL EVERY 12 HOURS Pantoprazole* (Protonix*), 40 MG ORAL DAILY Polyethylene Glycol 3350* (Miralax*), 17 GM ORAL DAILY Sennosides (Senna-Gen), 17.2 MG ORAL QHS Scheduled PRN Acetaminophen (Acetaminophen), 650 MG ORAL Q6H PRN for Prn Headache/Temp > 101, (Reported) Hydralazine Hcl* (Hydralazine Hcl*), 25 MG ORAL Q4H PRN Hydrocodone Bit/Acetaminophen 5-325* ([place] 5-325*), 1 TAB ORAL Q4H PRN Simethicone* (Simethicone*), 80 MG ORAL Q6HR PRN for GAS PAIN, (Reported) Patient History History Provided By: Patient, Medical Record, PMD Healthcare decision maker Resuscitation status Full Code Advanced Directive on File No Past Medical/Surgical History Past Medical/Surgical History: (1) CKD (chronic kidney disease) stage 4, GFR 15-29 ml/min (2) Status post ORIF of fracture of ankle (3) Necrotic wound of R ankle/foot (4) Left heel unstageable pressure ulcer with black eschar adhered to wound bed (5) necrotic wound R ankle (6) Hardware failure (7) Peripheral vascular disease (8) Pleural effusion (9) ESRD (end stage renal disease) on dialysis (10) DM2 (diabetes mellitus, type 2) (11) Endocarditis of mitral valve (12) UTI due to extended-spectrum beta lactamase (ESBL) producing Escherichia coli (13) Corynebacterium striatum group bacteremia (14) ankle fracture s/p ORIF on 05/13/17 and subsequenthardware failure and displaced oblique fractures of distal fibula and tibia (15) R ankle fracture s/p ORIF on 05/13/17 and subsequenthardware failure and displaced oblique fractures of distal fibula and tibia (16) live at SNF (17) acute on chronic anemia (18) Anemia of chronic disease (19) ESRD (end stage renal disease) on dialysis (20) Hypoalbuminemia (21) Alkaline phosphatase elevation (22) Lives w/ caregiver (23) HTN (hypertension) (24) HLD (hyperlipidemia) (25) Uncontrolled diabetes mellitus (26) Status post fall (27) Hyperkalemia (28) Hyponatremia (29) Pre-syncope (30) ZENY (acute kidney injury) (31) Diabetes mellitus out of control (32) RIGHT ANKLE FRACTURE (33) Acute blood loss anemia (34) Subungual hematoma left hallux (35) Dry blisters L hallux and L 2nd toe (36) Dry blisters L hallux and L 2nd toe Physical Exam General Appearance: no apparent distress, alert Neurologic: depressed affect Last 24 Hour Vital Signs Date Time Temp Pulse Resp B/P (MAP) Pulse Ox O2 Delivery O2 Flow Rate FiO2 10/24/17 08:00 68 139/64 97 Room Air 10/24/17 04:00 97.3 64 18 116/60 98 97.3 10/24/17 00:00 97.5 71 18 138/57 100 97.5 10/23/17 21:10 62 133/60 10/23/17 20:00 97.4 62 18 133/60 99 97.4 10/23/17 16:02 97.9 64 18 112/53 99 Room Air 97.9 Intake and Output 10/23/17 10/24/17 19:00 07:00 Intake Total 960 ml 220 ml Balance 960 ml 220 ml Intake Oral 960 ml IV Total 220 ml # Voids 4 5 # Bowel Movements 3 2 Laboratory Tests Test 10/24/17 05:10 White Blood Count 9.8 K/UL (4.8-10.8) Red Blood Count 3.30 M/UL (4.20-5.40) L Hemoglobin 9.0 G/DL (12.0-16.0) L Hematocrit 29.0 % (37.0-47.0) L Mean Corpuscular Volume 88 FL (80-99) Mean Corpuscular Hemoglobin 27.2 PG (27.0-31.0) Mean Corpuscular Hemoglobin Concent 31.0 G/DL (32.0-36.0) L Red Cell Distribution Width 18.1 % (11.6-14.8) H Platelet Count 160 K/UL (150-450) Mean Platelet Volume 6.5 FL (6.5-10.1) Neutrophils (%) (Auto) 70.6 % (45.0-75.0) Lymphocytes (%) (Auto) 18.8 % (20.0-45.0) L Monocytes (%) (Auto) 6.5 % (1.0-10.0) Eosinophils (%) (Auto) 3.5 % (0.0-3.0) H Basophils (%) (Auto) 0.6 % (0.0-2.0) Sodium Level 135 MMOL/L (136-145) L Potassium Level 4.2 MMOL/L (3.5-5.1) Chloride Level 106 MMOL/L (98-107) Carbon Dioxide Level 22 MMOL/L (21-32) Anion Gap 7 mmol/L (5-15) Blood Urea Nitrogen 26 mg/dL (7-18) H Creatinine 3.7 MG/DL (0.55-1.30) H Estimat Glomerular Filtration Rate 14.8 mL/min (>60) Glucose Level 102 MG/DL (74-106) Uric Acid 4.6 MG/DL (2.6-7.2) Calcium Level 8.7 MG/DL (8.5-10.1) Phosphorus Level 3.1 MG/DL (2.5-4.9) Magnesium Level 2.0 MG/DL (1.8-2.4) Total Bilirubin 0.4 MG/DL (0.2-1.0) Aspartate Amino Transf (AST/SGOT) 13 U/L (15-37) L Alanine Aminotransferase (ALT/SGPT) 7 U/L (12-78) L Alkaline Phosphatase 147 U/L (46-116) H Pro-B-Type Natriuretic Peptide 57733 pg/mL (0-125) H Total Protein 6.3 G/DL (6.4-8.2) L Albumin 1.6 G/DL (3.4-5.0) L Globulin 4.7 g/dL Albumin/Globulin Ratio 0.3 (1.0-2.7) L Random Vancomycin Level 19.5 ug/mL Height (Feet): 5 Height (Inches): 6.00 Weight (Pounds): 200 Medications Current Medications Medications (Trade) Dose Ordered Sig/Andre Route PRN Reason Start Time Stop Time Status Last Admin Dose Admin Acetaminophen (Tylenol) 650 mg Q4H PRN ORAL Mild Pain (Pain Scale 1-3) 10/21/17 20:15 11/20/17 20:14 10/22/17 01:12 Acetaminophen (Tylenol) 650 mg Q4H PRN ORAL fever (temp>100.5F) 10/21/17 20:15 11/20/17 20:14 Acetaminophen/ Hydrocodone Bitart ([place] 5/325) 1 tab Q4H PRN ORAL pain 4-10 10/21/17 20:15 10/28/17 20:14 Amlodipine Besylate (Norvasc) 5 mg DAILY ORAL 10/23/17 09:00 11/21/17 08:59 10/23/17 09:07 Bisacodyl (Dulcolax) 10 mg HSPRN PRN RECTAL Constipation 10/21/17 20:15 11/20/17 20:14 Carvedilol (Coreg) 6.25 mg EVERY 12 HOURS ORAL 10/21/17 22:00 11/20/17 21:59 10/23/17 21:10 Dextrose (Dextrose 50%) STAT PRN IV Hypoglycemia 10/21/17 20:30 11/20/17 20:29 Docusate Sodium (Colace) 100 mg TID ORAL 10/22/17 13:00 11/20/17 20:59 10/24/17 10:16 Epoetin Marcus (Procrit (for ESRD on dialysis)) 10,000 units TUE-TUE-TUE SUBQ 10/21/17 22:00 11/20/17 21:59 10/21/17 23:28 Gabapentin (Neurontin) 100 mg QHS ORAL 10/21/17 22:00 11/20/17 21:59 10/23/17 21:10 Hydralazine HCl (Apresoline) 25 mg Q4H PRN ORAL SBP>160 10/21/17 20:15 11/20/17 20:14 Insulin Aspart (NovoLOG) BEFORE MEALS AND HS SUBQ 10/21/17 22:00 11/20/17 21:59 10/23/17 21:18 Meropenem 1 gm/ Dextrose 110 ml @ 220 mls/hr DAILY@2200 IVPB 10/23/17 22:00 10/28/17 21:59 10/23/17 21:18 Minocycline HCl (Minocin) 200 mg Q12HR ORAL 10/22/17 21:00 10/29/17 20:59 10/24/17 10:15 Ondansetron HCl (Zofran) 4 mg Q6H PRN IVP Nausea & Vomiting 10/21/17 20:15 11/20/17 20:14 Pantoprazole (Protonix) 40 mg DAILY IV 10/22/17 09:00 11/21/17 08:59 10/24/17 10:12 Polyethylene Glycol (Miralax) 17 gm DAILY ORAL 10/22/17 09:00 11/21/17 08:59 10/24/17 10:15 Sennosides (Senokot) 2 tab QHS ORAL 10/21/17 22:00 11/20/17 21:59 10/23/17 21:14 Simethicone (Mylicon) 80 mg Q6H PRN ORAL GAS PAIN 10/21/17 20:15 11/20/17 20:14 Vancomycin HCl (Vanco rx to dose) 1 ea DAILY PRN MISC Per rx protocol 10/21/17 20:15 11/20/17 20:14 Vancomycin HCl 1 gm/Dextrose 275 ml @ 183.708 mls/hr ONCE ONCE IVPB 10/24/17 18:00 10/24/17 19:29 Vitamin B Complex/ Vit C/Folic Acid (Nephrovite) 1 tab DAILY ORAL 10/22/17 09:00 11/21/17 08:59 10/24/17 10:15 Assessment/Plan Assessment/Plan encephalopathy anxiety d/o correct the underlying cause of delirium provided evelyn/Abelardo Will M.D. Oct 24, 2017 12:08
--- NOTE | 2017-10-24 12:09 | General Progress Note ---
Assessment/Plan Status: stable Assessment/Plan encephalopathy anxiety d/o correct the underlying cause of delirium provided ro/st Subjective Date patient seen: Oct 23, 2017 Neurologic/Psychiatric: Reports: anxiety, depressed, emotional problems Allergies: Coded Allergies: No Known Allergies (Unverified , 05/11/17) Objective Last 24 Hour Vital Signs Date Time Temp Pulse Resp B/P (MAP) Pulse Ox O2 Delivery O2 Flow Rate FiO2 10/24/17 08:00 68 139/64 97 Room Air 10/24/17 04:00 97.3 64 18 116/60 98 97.3 10/24/17 00:00 97.5 71 18 138/57 100 97.5 10/23/17 21:10 62 133/60 10/23/17 20:00 97.4 62 18 133/60 99 97.4 10/23/17 16:02 97.9 64 18 112/53 99 Room Air 97.9 Intake and Output 10/23/17 10/24/17 19:00 07:00 Intake Total 960 ml 220 ml Balance 960 ml 220 ml Intake Oral 960 ml IV Total 220 ml # Voids 4 5 # Bowel Movements 3 2 Laboratory Tests 10/24/17 05:10: White Blood Count 9.8, Red Blood Count 3.30L, Hemoglobin 9.0L, Hematocrit 29.0L , Mean Corpuscular Volume 88, Mean Corpuscular Hemoglobin 27.2, Mean Corpuscular Hemoglobin Concent 31.0L, Red Cell Distribution Width 18.1H, Platelet Count 160, Mean Platelet Volume 6.5, Neutrophils (%) (Auto) 70.6, Lymphocytes (%) (Auto) 18.8L, Monocytes (%) (Auto) 6.5, Eosinophils (%) (Auto) 3.5H, Basophils (%) (Auto) 0.6, Sodium Level 135L, Potassium Level 4.2, Chloride Level 106, Carbon Dioxide Level 22, Anion Gap 7, Blood Urea Nitrogen 26H, Creatinine 3.7H, Estimat Glomerular Filtration Rate 14.8, Glucose Level 102 , Uric Acid 4.6, Calcium Level 8.7, Phosphorus Level 3.1, Magnesium Level 2.0, Total Bilirubin 0.4, Aspartate Amino Transf (AST/SGOT) 13L, Alanine Aminotransferase (ALT/SGPT) 7L, Alkaline Phosphatase 147H, Pro-B-Type Natriuretic Peptide 54159R, Total Protein 6.3L, Albumin 1.6L, Globulin 4.7, Albumin/Globulin Ratio 0.3L, Random Vancomycin Level 19.5 Height (Feet): 5 Height (Inches): 6.00 Weight (Pounds): 200 Abelardo Yadav M.D. Oct 24, 2017 12:09
[2017-10-24] MEDS ORDERED: VANCOMYCIN1 GM/2502 IVPB (16:48)
[2017-10-24] MEDS ORDERED: VANCOCIN250 MG ORAL (16:48)
[2017-10-24] MEDS ORDERED: Vancomycin 1gm/D5W 275ml IVPB ONE ×2 (18:00)
[2017-10-24] MEDS ORDERED: NS 275ml ONE (20:24)
[2017-10-24] MEDS ORDERED: Tubing IV Secondary IV ONE (20:24)
[2017-10-24] MEDS ORDERED: Tubing IV Blood Pump IV ONE (20:24)
--- NOTE | 2017-10-28 08:11 | Discharge Summary ---
Discharge Summary Hospital Course Date of Admission Oct 21, 2017 at 19:50 Date of Discharge Oct 24, 2017 at 20:25 Admitting Diagnosis acute on chronic anemia Reason for Hospitalization: acute on chronic anemia HPI 71y/o female with pmh of HTN, HLD IDDM type 2 (A1C 9.9), ESRD on HD, nephrotic syndrome, chronic diastolic heart failure, legal blindness, R ankle fracture s/ p ORIF on 05/13/17 and subsequenthardware failure and displaced oblique fractures of distal fibula and tibia s/p I&D of RLE, removal of internal fixation devices from right ankle, open reduction of right ankle fracture, application of external fixation to right lower extremity, implantation of antibiotic-impregnated polymethylmethacrylate cement beads in right ankle on , s/p I&D of [place], application of vacuum assisted closure device, and open reduction with external fixation, right ankle on 06/22/17, s/p removal of external fixator of R ankle and irrigation and debridement of RLE on 09/22/17, R ankle osteomyelitis s/p irrigation and debridement of RLE, ostectomy and biopsy of R tibia at the medial malleolus, and application of wound vacuum assisted closure KCI on 09/30/17, Corynebacterium striatum group bacteremia, mitral valve endocarditis, who presents with acute on chronic anemia. Pt wa sfound to hae hgb 6.6 at labs done at [facility]. No reports of active bleeding including melena, BRBPR, hematemesis. Denies f/c, n/v, d/c, chest pain, SOB. In ED, hgb 7.4. Consultations Nephrology, Infectious disease, Hematology/Oncology Hospital Course Pt was admitted and CBC trended. Her hgb dropped to 7.1 so she required 1U pRBC. She did not have adequate response the next day, so she was given a 2nd unit of pRBC. Hgb improved to 9.0 prior to d/c. No evidence of active bleeding. Pt was also continued on vanco given mitral valve endocarditis 2/2 Corynebacterium striatum group bacteremia, and meropenem and minocycline given R ankle osteomyelitis. Pt was HD stable and tolerating PO prior to d/c. Discharge physical exam: General: alert, cooperative, no distress, appears stated age Head: normocephalic, without obvious abnormality, atraumatic Eyes: conjunctivae/corneas clear. PERRL, EOM's intact Throat: lips, mucosa, and tongue normal. MMM Neck: supple, symmetrical, trachea midline, and no JVD Lungs: clear to auscultation bilaterally Heart: regular rate and rhythm, S1, S2 normal, no murmur, click, rub or gallop Abdomen: soft, non-tender, non-distended, bowel sounds normal; no masses or organomegaly Extremities: extremities normal, atraumatic, no cyanosis or edema Pulses: 2+ and symmetric Skin: dressing c/d/i Neurologic: 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, no focal deficits Discharge diagnoses: (1) acute on chronic anemia (2) ESRD (end stage renal disease) on dialysis ICD Codes: N18.6 - End stage renal disease; Z99.2 - Dependence on renal dialysis SNOMED: 456702646 (3) DM2 (diabetes mellitus, type 2) ICD Codes: E11.9 - Type 2 diabetes mellitus without complications SNOMED: 76805746 (4) Endocarditis of mitral valve ICD Codes: I05.8 - Other rheumatic mitral valve diseases SNOMED: 61438115 (5) Corynebacterium striatum group bacteremia (6) R ankle fracture s/p ORIF on 05/13/17 and subsequenthardware failure and displaced oblique fractures of distal fibula and tibia (7) HTN (hypertension) ICD Codes: I10 - Essential (primary) hypertension SNOMED: 02837594 (8) HLD (hyperlipidemia) ICD Codes: E78.5 - Hyperlipidemia, unspecified Discharge Medications Continued Medications: Acetaminophen (Acetaminophen) 650 Mg/20.3 Ml Solution 650 MG ORAL Q6H PRN for Prn Headache/Temp > 101, ML 0 Refills (This prescription has been renewed) Amlodipine Besylate (Norvasc) 5 Mg Tablet 5 MG ORAL BID, #60 TAB Bisacodyl* (Dulcolax*) 5 Mg Tablet.dr 10 MG RECTAL DAILY, #10 TAB 0 Refills (This prescription has been renewed) Calcitriol (Calcitriol*) 1 Mcg/1 Ml Ampul 0.5 MCG PO DAILY, MCG 0 Refills (This prescription has been renewed) Carvedilol (Coreg) 6.25 Mg Tablet 6.25 MG ORAL EVERY 12 HOURS, #60 TAB Docusate Sodium* (Colace*) 100 Mg Capsule 100 MG ORAL THREE TIMES A DAY for 30 Days, CAP Epoetin Marcus (Procrit) 20,000 Unit/1 Ml Vial 76472 UNITS SUBQ MON-WED-FRI for 30 Days, VIAL Ferrous Sulfate* (Ferrous Sulfate*) 325 Mg Tablet 325 MG ORAL DAILY, #30 TAB 0 Refills (This prescription has been renewed) Gabapentin* (Gabapentin*) 100 Mg Capsule 100 MG ORAL HS, CAP (This prescription has been renewed) Heparin Sod (Porcine) (Heparin Sodium*) 5 000/1 Ml Vial 5000 UNITS SUBQ EVERY 12 HOURS for 30 Days, VIAL Hydralazine Hcl* (Hydralazine Hcl*) 25 Mg Tablet 25 MG ORAL Q4H PRN for 30 Days, TAB Hydrocodone Bit/Acetaminophen 5-325* ([place] 5-325*) 1 Each Tablet 1 TAB ORAL Q4H PRN, #40 TAB for moderate/severe pain Insulin Aspart (Novolog Flexpen) 100 Unit/1 Ml Insuln.pen 0 UNITS SUBQ AC+HS for 30 Days, EA Losartan Potassium* (Losartan Potassium*) 25 Mg Tablet 25 MG ORAL DAILY, TAB (This prescription has been renewed) Meropenem (Meropenem) 1 Gm Vial 1 GM IV DAILY, VIAL (This prescription has been renewed) Minocycline Hcl (Minocycline Hcl) 100 Mg Capsule 100 MG PO EVERY 12 HOURS, CAP (This prescription has been renewed) Nateglinide* (Starlix*) 60 Mg Tablet 60 MG ORAL TIAC, #90 TAB Nateglinide* (Starlix*) 60 Mg Tablet 60 MG ORAL AC, TAB (This prescription has been renewed) Oxycodone Hcl Er* (Oxycontin*) 20 Mg Tab.er.12h 20 MG ORAL EVERY 12 HOURS for 14 Days, TAB Pantoprazole* (Protonix*) 40 Mg Tablet.dr 40 MG ORAL DAILY for 30 Days, TAB Polyethylene Glycol 3350* (Miralax*) 17 Gm Powd.pack 17 GM ORAL DAILY for 30 Days, PACK Sennosides (Senna-Gen) 8.6 Mg Tablet 17.2 MG ORAL QHS for 30 Days, TAB Simethicone* (Simethicone*) 80 Mg Tab.chew 80 MG ORAL Q6HR PRN for GAS PAIN, #20 TAB 0 Refills (This prescription has been renewed) Vancomycin Hcl/D5w (Vancomycin-D5w 1 G/250 Ml) 1 Gm/250 Ml Plast..bag 1 GM IVPB Q24H for 14 Days, #1 BAG Discontinued Medications: Vancomycin HCl (Vancocin HCl) 250 Mg Capsule 250 MG ORAL QID, CAP Discharge Condition Upon Discharge: stable Discharge Disposition Patient was discharged to SNF/Subacute Facility(03) Celestine Stevens M.D. Oct 28, 2017 08:11
== END 2017-10-24 20:25 | DRG 811 ==
LOC: EDBD 17:54 → EMR 18:35 → 4E 19:50 → EDBEDREQ 20:05 → 4E 23:00
PROC: 30233N1 Transfusion of Nonautologous Red Blood Cells into Peripheral Vein, Percutaneous Approach (ICD-10-PCS; principal; 2017-10-22)
PROC: 5A1D70Z Performance of Urinary Filtration, Intermittent, Less than 6 Hours Per Day (ICD-10-PCS; 2017-10-24)
DX: D64.89 Other specified anemias (principal); N18.6 End stage renal disease; G93.40 Encephalopathy, unspecified; M86.8X7 Other osteomyelitis, ankle and foot; R78.81 Bacteremia; I13.2 Hypertensive heart and chronic kidney disease with heart failure and with stage 5 chronic kidney disease, or end stage renal disease; I50.32 Chronic diastolic (congestive) heart failure; D63.1 Anemia in chronic kidney disease; Z99.2 Dependence on renal dialysis; E11.9 Type 2 diabetes mellitus without complications; B96.89 Other specified bacterial agents as the cause of diseases classified elsewhere; I73.9 Peripheral vascular disease, unspecified; I05.9 Rheumatic mitral valve disease, unspecified; E78.5 Hyperlipidemia, unspecified; F41.9 Anxiety disorder, unspecified
CPT/HCPCS: 36415; 71045; 74018; 80048; 80053; 80202; 82728; 82962; 83036; 83540; 83550; 83690; 83735; 83880; 84100; 84484; 84550; 85007; 85025; 85610; 85730; 86140; 86850; 86900; 86901; 86920; 87040; 87070; 87081; 87181; 87205; 93005; 96365; 96372; 96374; 99285; J1815

== ENCOUNTER 2018-06-12 23:45 | Inpatient (IN) | payer MEDICARE, OTHER ==
[~2018-06-12] VITALS: Ht 167.6 cm; Wt 110.7 kg
[~2018-06-12 23:45] MED LIST changes: +BISACODYL5 MG RECTAL; +CALCITRIOL1 MCG/1 ML PO; +FERROUS SULFAT325 MG ORAL; +GABAPENTIN100 MG ORAL; +LOSARTAN POTASS25 MG ORAL; +MEROPENEM1 GM IV; +MINOCYCLINE HC100 MG PO; +SIMETHICONE80 MG ORAL; +TYLENOL650 MG/20. ORAL; +VANCOCIN250 MG ORAL; +VANCOMYCIN1 GM/2502 IVPB
--- NOTE | 2018-06-13 | NUR ---
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
--- NOTE | 2018-06-13 00:50 | NUR ---
ED Nurse Note: IV LINE PLACED AFTER 2 ATTEMPTS, P TOLERATED WELL, FLUIDS INFUSING ORDERED, LABS DRAWN INCLUDING BLOOD CULTURES AND LACTIC ACID LEVELS, WILL CONTINUE TO CLOSELY MONITOR AND RESUME CARE ORDERED, V/S STABLE.
[2018-06-13 01:02] LABS: BASOPHILS % (AUTO) 0.8 % (0.0-2.0); EOSINOPHILS % (AUTO) 0.8 % (0.0-3.0); HEMATOCRIT 34.9 % (37.0-47.0); HEMOGLOBIN 11.2 G/DL (12.0-16.0); LYMPHOCYTES % (AUTO) 11.6 % (20.0-45.0); MEAN CORPUSCULAR VOLUME 87 FL (80-99); MONOCYTES % (AUTO) 4.4 % (1.0-10.0); NEUTROPHILS % (AUTO) 82.5 % (45.0-75.0); PLATELET COUNT 114 K/UL (150-450); RED BLOOD COUNT 4.01 M/UL (4.20-5.40); RED CELL DISTRIBUTION WIDTH 16.4 % (11.6-14.8); WHITE BLOOD COUNT 12.2 K/UL (4.8-10.8)
[2018-06-13 01:10] LABS: ANION GAP 9 mmol/L (5-15); BLOOD UREA NITROGEN 30 mg/dL (7-18); CALCIUM 9.1 MG/DL (8.5-10.1); CARBON DIOXIDE 24 MMOL/L (21-32); CHLORIDE 105 MMOL/L (98-107); CREATININE 3.7 MG/DL (0.55-1.30); POTASSIUM 4.1 MMOL/L (3.5-5.1); SODIUM 138 MMOL/L (136-145)
[2018-06-13 01:23] LABS: ALANINE AMINOTRANSFERASE 7 U/L (12-78); ALBUMIN/GLOBULIN RATIO 0.4 (1.0-2.7); ALKALINE PHOSPHATASE 127 U/L (46-116); ASPARTATE AMINO TRANSFERASE 19 U/L (15-37); BILIRUBIN,TOTAL 0.4 MG/DL (0.2-1.0); CKMB 3.3 NG/ML (0.0-3.6); CREATINE KINASE 69 U/L (26-308)
[2018-06-13] MEDS ORDERED: Aspirin Baby 81mg ORAL ONE (01:30)
[2018-06-13] MEDS ORDERED: Enoxaparin 80mg Inj SUBQ ONE (01:30)
--- NOTE | 2018-06-13 01:36 | Emergency Room Report ---
History of Present Illness General Chief Complaint: General Complaint Source: Patient, Medical Record, EMS Present Illness HPI This is a 72-year-old female who has a history diabetes, high blood pressure, renal failure on hemodialysis. Her dialysis days are Tuesday, Tuesday, and Tuesday. She presents with altered mental status. She been sleeping all day. [place] weak. Did not eat dinner. They sent her in for evaluation. Here patient was able to wake up and said that she still tire. Denies any fever or chills. Denies any pain. No other complaint. Allergies: Coded Allergies: BENAZEPRIL (Verified Allergy, Unknown, 06/12/18) CODEINE (Verified Allergy, Unknown, 06/12/18) INSULIN ASPART (Verified Allergy, Unknown, 06/12/18) INSULIN DETEMIR (Verified Allergy, Unknown, 06/12/18) OPIOIDS - MORPHINE ANALOGUES (Verified Allergy, Unknown, 06/12/18) Patient History Past Medical History: see triage record, old chart reviewed, renal disease, dialysis Past Surgical History: other Pertinent Family History: none Social History: Denies: smoking Last Menstrual Period: n/a Now: No Immunizations: other Reviewed Nursing Documentation: PMH: Agreed; PSxH: Agreed Nursing Documentation-PMH Hx Hypertension: Yes Hx COPD: No - anemia Hx Diabetes: Yes Hx Cancer: No Hx Neurological Problems: No Review of Systems Constitutional: Reports: weakness Eye: Denies: eye pain, blurred vision ENT: Denies: ear pain, nose congestion, throat swelling Respiratory: Denies: cough, shortness of breath Cardiovascular: Denies: chest pain, palpitations Gastrointestinal: Denies: abdominal pain, diarrhea, nausea, vomiting Musculoskeletal: Denies: back pain, joint pain Skin: Denies: rash Neurological: Denies: headache, numbness Endocrine: Denies: increased thirst, increased urine Hematologic/Lymphatic: Denies: easy bruising All Other Systems: negative except mentioned in HPI Physical Exam Vital Signs Date Time Temp Pulse Resp B/P (MAP) Pulse Ox O2 Delivery O2 Flow Rate FiO2 06/12/18 23:38 98.1 60 20 94/55 95 Nasal Cannula 2.0 vitals unremarkable Sp02 EP Interpretation: reviewed, normal General Appearance: no apparent distress, alert, thin, Chronically Ill Head: normocephalic, atraumatic Eyes: bilateral eye PERRL, bilateral eye EOMI ENT: hearing 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, normal pharynx Neck: full range of motion, supple, no meningismus Respiratory: chest non-tender, lungs clear, normal breath sounds Cardiovascular #1: regular rate, rhythm, no murmur Gastrointestinal: normal bowel sounds, non tender, no mass, no organomegaly, no bruit, non-distended Musculoskeletal: back normal, gait/station normal, normal range of motion Neurologic: alert, oriented x3 Psychiatric: mood/affect normal Skin: warm/dry Procedures Critical Care Time Critical Care Time Critical care is mandated in this patient who presented with NSTEMI. Patient require my urgent intervention to attenuate the risks of metabolic collapse which may lead to cardiovascular collapse and . Critical care time is 35 minutes excluding any reportable procedure. Critical care time included evaluation, multiple reevaluation, looking at old charts, interpreting laboratory and diagnostic data, discussing case with patient and family and consultants, and charting. Medical Decision Making Diagnostic Impression: Primary Impression: NSTEMI (non-ST elevated myocardial infarction) Additional Impressions: Anemia of chronic disease Bilateral pleural effusion ER Course Patient presents with joint weakness. This is secondary to acute NM. No ST elevation. Aspirin and Lovenox given here. No evidence of any infection. She does have bilateral pleural effusion. This seemed to be limited worse than when she was here in September. Patient may need dialysis. I discussed the case with Dr. John who will admit. EKG Diagnostic Results Rate: normal Rhythm: NSR ST Segments: no acute changes ASA given to the pt in ED: Yes Rhythm Strip Diag. Results Rhythm Strip Time: 01:35 EP Interpretation: yes Rate: 63 Rhythm: NSR, no PVC's, no ectopy Chest X-Ray Diagnostic Results Chest X-Ray Diagnostic Results : Chest X-Ray Ordered: Yes # of Views/Limited/Complete: 1 View Indication: Chest Pain EP Interpretation: Yes Interpretation: no pneumothorax, other - Bilateral pleural effusion Impression: Other - b/l pleural effusion Electronically Signed by: Loi Spears MD Last Vital Signs Date Time Temp Pulse Resp B/P (MAP) Pulse Ox O2 Delivery O2 Flow Rate FiO2 06/13/18 00:00 60 20 Nasal Cannula 2.0 06/12/18 23:38 98.1 94/55 95 Status: improved Disposition: ADMITTED INPATIENT Condition: Serious Referrals: Brenda Fuller MD (PCP) Loi Spears MD Jun 13, 2018 01:36
[2018-06-13 02:00] VITALS: BP 107/54
--- NOTE | 2018-06-13 02:00 | NUR ---
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
--- NOTE | 2018-06-13 03:55 | NUR ---
ED Nurse Note: PT TAKEN TO FLOOR UNIT FOR ADMISSION, PT IS AWAKE, ALERT AND ORIENTED X 4, PT DENIES CP OR ANY PAIN, NO SOB OR LABORED BREATHING, IV SITE INTACT AND PATENT, BELONGINGS LIST COMPLETED, BEDSIDE REPORT GIVEN TO CHAPIS CHOWDHURY ON UNIT, NAD NOTED DURING PT TRANSPORT TO UNIT VIA GURNEY WITH ACLS PROTOCOLS AND ER-TECH.
[2018-06-13 04:00] VITALS: BP 104/54
--- NOTE | 2018-06-13 04:24 | NUR ---
NURSE NOTES: Received report from Geri Hernández RN. Pt came from ED via gurney without incident. Pt is resting in the bed without distress in RA. Don PUENTESA noted. HD on M, W, F, MARCELO fistula noted. last HD is last Tuesday, not output info. No belonging noted. No teeth. Safety measures are applied with bed alarm on, bed in lowest position with 2 side rails upx2, and breaks are engaged. Side table and call light are within reach. Will contact Dr. Fuller for admission order. Addendum: 06/13/18 at 0445 by BISI GIBBS RN Dr. Fuller was paged at . Awaiting call back. Addendum: 06/13/18 at 0505 by BISI GIBBS RN Dr. De Leon was paged at previously, and now as a second attempt.
[2018-06-13] MEDS ORDERED: MULTIVITAMINS1 EAC8 ORAL (06:57)
[2018-06-13] MEDS ORDERED: PANTOPRAZOLE SO40 MG ORAL (06:57)
[2018-06-13] MEDS ORDERED: VITAMIN C500 M1 ORAL (06:57)
[2018-06-13] MEDS ORDERED: LISINOPRIL10 MG ORAL (06:57)
[2018-06-13] MEDS ORDERED: MONOJECT H100 UNIT/1 SUBQ (06:57)
[2018-06-13] MEDS ORDERED: ASPIRIN81 MG ORAL (06:57)
[2018-06-13] MEDS ORDERED: TYLENOL EXTRA500 MG ORAL (06:57)
[2018-06-13] MEDS ORDERED: COLLAGENASE1 EACH MC (06:57)
[2018-06-13] MEDS ORDERED: ATENOLOL25 MG ORAL (06:57)
[2018-06-13] MEDS ORDERED: GABAPENTIN100 MG ORAL (06:57)
--- NOTE | 2018-06-13 07:29 | NUR ---
HAND-OFF: Report given to Emi Thomas RN. Stable condition. Addendum: 06/13/18 at 0807 by BISI GIBBS RN Dr. D eLeon awares troponin level of 2.314. Endorsed to next shift
--- NOTE | 2018-06-13 07:45 | NUR ---
NURSE NOTES: Pt received from CHAPIS Santos is alert and oriented x3 with no complaints or s/s of pain, SOB, or n/v. IV site asymptomatic and patent. Bed in lowest position, call light within reach. Belongings within reach.
[2018-06-13 08:00] VITALS: BP 99/62
[2018-06-13] MEDS ORDERED: Acetaminophen 500mg (ES) tab ORAL PRN (08:15)
[2018-06-13] MEDS: Ascorbic Acid 500mg tab ORAL SCH (08:48)
[2018-06-13] MEDS: Aspirin Baby 81mg ORAL SCH (08:48)
[2018-06-13] MEDS: Multivitamin w/Minerals tab ORAL SCH (08:48)
[2018-06-13] MEDS: Heparin 5000 units/ml inj SUBQ SCH ×2 (08:49→20:43)
[2018-06-13] MEDS: Atenolol 25mg tab ORAL SCH (09:00)
--- NOTE | 2018-06-13 10:22 | NUR ---
RD ASSESSMENT & RECOMMENDATIONS SEE CARE ACTIVITY FOR COMPLETE ASSESSMENT DAILY ESTIMATED NEEDS: Needs based on ESRD on HD, Wounds (Adj Wt 64.8kg) 25-30 kcals/kg 9190-3517 total kcals 1.25-1.8 g protein/kg 81-117 g total protein Fluid per MD, on HD NUTRITION DIAGNOSIS: 1) Increased kcal, pro needs R/T wound healing and renal dysfunction as evidenced by pt w/ open left heel wound, w/ ESRD on HD. 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
--- NOTE | 2018-06-13 10:45 | NUR ---
NURSE NOTES: Received Hemodialysis order, spoke with Emma from [facility] to confirm HD at 06/13/2018 from 6a-6p.
--- NOTE | 2018-06-13 11:28 | NUR ---
RD ASSESSMENT & RECOMMENDATIONS SEE CARE ACTIVITY FOR COMPLETE ASSESSMENT DAILY ESTIMATED NEEDS: Needs based on ESRD on HD, Wounds (Adj Wt 62kg w/ BKA) 25-30 kcals/kg 9685-2342 total kcals 1.25-1.8 g protein/kg 76-112 g total protein Fluid per MD, on HD NUTRITION DIAGNOSIS: 1) Increased kcal, pro needs R/T wound healing and renal dysfunction as evidenced by pt w/ open left heel wound, w/ ESRD on HD. 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
--- NOTE | 2018-06-13 11:30 | History and Physical Report ---
DATE OF ADMISSION: 06/13/2018 CHIEF COMPLAINT: Altered level of consciousness. HISTORY OF PRESENT ILLNESS: This is a 72-year-old female under my care in a [facility]. The m[facility]p called me, the patient became altered. The patient is on dialysis every Tuesday, , Tuesday. The patient was found to have troponin level greater than 2. She is admitted to the telemetry. PAST MEDICAL HISTORY: 1. End-stage renal failure due to diabetic nephropathy. 2. Severe peripheral vascular disease. 3. Status post right above knee amputation. 4. Blindness due to diabetic retinopathy. 5. Anemia of chronic kidney disease. 6. Hypertensive cardiovascular disease. 7. Ischemic heart disease. 8. Left foot toe gangrene. 9. Left heel ulcer. MEDICATIONS: Epogen on dialysis days, vitamin C, zinc sulfate, multivitamin, baby aspirin, Neurontin 100 mg daily, collagenase locally, atenolol 25 mg daily, Pro-Stat 30 mL p.o. t.i.d. with meals, Protonix, Tylenol p.r.n., [place] p.r.n., subcutaneous heparin, and lisinopril. ALLERGIES: Listed to benazepril, codeine, insulin aspart, insulin detemir, opioids, morphine analogues, although some of this list is not true since the patient has been already on HE inhibitors. She was getting insulin aspart and detemir and the patient is getting opioids. REVIEW OF SYSTEMS: HEENT: Hearing normal. Eyesight, the patient is blind. ENDOCRINE: Significant for multiorgan type 2 diabetes mellitus. RESPIRATORY: She denies shortness of breath, cough, or hemoptysis. CARDIOVASCULAR: She denies chest pain or palpitations. GASTROINTESTINAL: No history of hematochezia, melena, hematemesis, diarrhea, or constipation. GENITOURINARY: She has nocturia x2 to 3. NEUROLOGIC: No history of stroke, syncope, or Parkinson disease. PHYSICAL EXAMINATION: GENERAL: This is an elderly, chronically ill-appearing, female, who is in no acute distress. The patient is blind. VITAL SIGNS: Blood pressure 104/54, pulse 56, sinus bradycardia, respirations 20, and temperature 97.5 oral. HEENT: The patient is blind as mentioned earlier. She has right eye opacity. She has very poor oral hygiene with missing dentures. NECK: Supple. Trachea midline. There was no lymphadenopathy or thyromegaly. LUNGS: Clear to auscultation and percussion. HEART: Regular rate and rhythm without rubs, murmurs, or gallops. ABDOMEN: Soft and nontender. Bowel sounds were active. EXTREMITIES: The right above knee stump is clean. The left heel has ulcer. NEUROLOGIC: The patient is alert and oriented x4. Cranial nerves except two are intact. LABORATORY AND ANCILLARY DATA: CBC shows white count 12,200, hemoglobin 11.2. Serum chemistry, sodium 138, potassium 4.1, BUN 30, creatinine 3.7, alkaline phosphatase 127. Troponin level 2.314. EKG, normal sinus rhythm, no signs of acute or chronic ischemia. ASSESSMENT: 1. Non-ST elevated myocardial infarction. 2. End-stage renal failure due to diabetic nephropathy. 3. Severe peripheral vascular disease. 4. Status post right above knee amputation. 5. Blindness due to diabetic retinopathy. 6. Anemia of chronic kidney disease. 7. Hypertensive cardiovascular disease. 8. Ischemic heart disease. 9. Left foot toe gangrene. 10. Left heel ulcer. PLAN: 1. Serial EKG and troponin levels. 2. Cardiology consult. 3. Hemodialysis on the patient's schedule, which is Tuesday, , Tuesday. 4. Resume the patient's mcfp medications. 5. Caution should be exercised with Neurontin, which can accumulate in dialysis patient and can cause alteration in mental status. Brenda Fuller M.D. DR: SAFIA/LEAH JOB#: [id number] CC: REKHA
[2018-06-13 12:00] VITALS: BP 104/56
--- NOTE | 2018-06-13 12:55 | Diagnostic Imaging Report ---
Indication: Shortness of breath Technique: XRAY Chest 1v Comparison: 10/21/2017 Findings: Limited exam with low lung volumes. Heart appears enlarged but stable compared to the prior exam. The tunneled dialysis catheter has been removed. There is interstitial opacification/edema bilaterally. There are bilateral pleural effusions which are small to moderate. There is adjacent atelectasis/consolidation in the lateral lower lungs. No pneumothorax. There is osteopenia and degenerative change of the spine. No appreciable acute osseous abnormality. Impression: Interstitial opacification/edema with small to moderate bilateral pleural effusions and bibasilar atelectasis/consolidation. Findings may be related to CHF. Superimposed pneumonia should be excluded clinically. Study obtained via the emergency department however patient admitted to the hospital at time of dictation of the final report.
--- NOTE | 2018-06-13 15:21 | Cardiology Report ---
APPROVED REPORT EXAM: Two-dimensional and M-mode echocardiogram with Doppler and color Doppler. INDICATION NSTEMI M-Mode DIMENSIONS IVSd1.2 (0.7-1.1cm)Left Atrium (MM)3.5 (1.6-4.0cm) LVDd3.6 (3.5-5.6cm)Aortic Root2.9 (2.0-3.7cm) PWd1.1 (0.7-1.1cm)Aortic Cusp Exc.1.8 (1.5-2.0cm) IVSs1.4 cm LVDs2.5 (2.5-4.0cm) PWs1.3 cm Technically difficult study due to poor acoustical windows. Normal left ventricular chamber size, systolic function and wall motion to extent visualized. Left ventricular ejection fraction estimated to be 60 %. Mild left ventricular hypertrophy. No evidence of pericardial effusion. Large posterior pleural effusion. Moderate left atrial enlargement. Right atrial size at upper limits of normal. Right ventricular chamber size is within normal limits. Focal aortic valve sclerosis with adequate cusp excursion. Thickened mitral valve leaflets with normal excursion. Mitral annulus and aortic root calcification. Pulmonic valve not well visualized. Normal tricuspid valve structure. IVC dilated at 2.5 cm without physiologic collapse suggestive of increased RA pressure. A color flow and spectral Doppler study was performed and revealed: Trace aortic regurgitation. Moderate mitral regurgitation. Mitral inflow velocities indicates possible pseudo normalization pattern implying moderately elevated left atrial pressure (Grade II ). Moderate tricuspid regurgitation. Tricuspid systolic velocities suggests peak right ventricular systolic pressure of 45 mmHg, consistent with moderate pulmonary hypertension. Mild to moderate pulmonic regurgitation present.
--- NOTE | 2018-06-13 15:54 | NUR ---
CASE MANAGEMENT:REVIEW 72 YR OLD [facility] SI: NSTEMI 98.1 60 20 94/55 95% ON 2L/NC WBC+12.2 BUN+30 CR+3.7 TROPONIN(+) 2.314 AND 1.669 IS: 1L NS BOLUS X1 LOVENOX SQ CXR BLOOD CX : TO TELEMETRY IS: ASA PO QD ATENOLOL PO QD INTERQUAL CRITERIA MET
--- NOTE | 2018-06-13 15:54 | Consultation ---
Consult Note Assessment/Plan A/ 1) DM foot ulcer left heel 2) h/o Osteomyelitis left calcaneus 3) DM 4) PAD 5) ESRD 6) Right BKA P/ 1) No acute signs of infection noted. Cont wound care with Santyl daily 2) MRI left ankle without contrast to evaluate left heel osteo 3) Cont off loading boot 4) Will follow Thank you Hany Jackson DPM Jun 13, 2018 15:53
--- NOTE | 2018-06-13 16:19 | Cardiology Progress Note ---
Subjective Subjective [id number] Objective Last 24 Hour Vital Signs Date Time Temp Pulse Resp B/P (MAP) Pulse Ox O2 Delivery O2 Flow Rate FiO2 06/13/18 12:00 61 06/13/18 12:00 97.2 62 20 104/56 (72) 97 06/13/18 09:00 63 99/62 06/13/18 09:00 Room Air 06/13/18 08:00 57 06/13/18 08:00 97.5 57 20 99/62 (74) 94 06/13/18 05:08 Room Air 06/13/18 04:00 56 06/13/18 04:00 97.5 58 20 104/54 (71) 94 06/13/18 03:50 98.1 61 15 107/54 100 Nasal Cannula 2.0 06/13/18 02:00 98.1 61 15 107/54 100 Nasal Cannula 2.0 06/13/18 00:00 60 20 Nasal Cannula 2.0 06/12/18 23:38 98.1 60 20 94/55 95 Nasal Cannula 2.0 Intake and Output 06/12/18 06/13/18 19:00 07:00 Intake Total 100 ml Output Total 1 ml Balance 99 ml Intake Oral 100 ml Output Urine Total 1 ml Stool Total 0 ml Laboratory Tests Test 06/13/18 00:15 06/13/18 09:10 06/13/18 13:50 White Blood Count 12.2 K/UL (4.8-10.8) H Red Blood Count 4.01 M/UL (4.20-5.40) L Hemoglobin 11.2 G/DL (12.0-16.0) L Hematocrit 34.9 % (37.0-47.0) L Mean Corpuscular Volume 87 FL (80-99) Mean Corpuscular Hemoglobin 27.9 PG (27.0-31.0) Mean Corpuscular Hemoglobin Concent 32.1 G/DL (32.0-36.0) Red Cell Distribution Width 16.4 % (11.6-14.8) H Platelet Count 114 K/UL (150-450) L Mean Platelet Volume 8.9 FL (6.5-10.1) Neutrophils (%) (Auto) 82.5 % (45.0-75.0) H Lymphocytes (%) (Auto) 11.6 % (20.0-45.0) L Monocytes (%) (Auto) 4.4 % (1.0-10.0) Eosinophils (%) (Auto) 0.8 % (0.0-3.0) Basophils (%) (Auto) 0.8 % (0.0-2.0) Sodium Level 138 MMOL/L (136-145) Potassium Level 4.1 MMOL/L (3.5-5.1) Chloride Level 105 MMOL/L (98-107) Carbon Dioxide Level 24 MMOL/L (21-32) Anion Gap 9 mmol/L (5-15) Blood Urea Nitrogen 30 mg/dL (7-18) H Creatinine 3.7 MG/DL (0.55-1.30) H Estimat Glomerular Filtration Rate 14.7 mL/min (>60) Glucose Level 110 MG/DL (74-106) H Lactic Acid Level 1.40 mmol/L (0.4-2.0) Calcium Level 9.1 MG/DL (8.5-10.1) Total Bilirubin 0.4 MG/DL (0.2-1.0) Aspartate Amino Transf (AST/SGOT) 19 U/L (15-37) Alanine Aminotransferase (ALT/SGPT) 7 U/L (12-78) L Alkaline Phosphatase 127 U/L (46-116) H Total Creatine Kinase 69 U/L (26-308) Creatine Kinase MB 3.3 NG/ML (0.0-3.6) Creatine Kinase MB Relative Index 4.7 Troponin I 2.314 ng/mL (0.000-0.056) 1.669 ng/mL (0.000-0.056) 1.538 ng/mL (0.000-0.056) Total Protein 7.5 G/DL (6.4-8.2) Albumin 2.0 G/DL (3.4-5.0) L Globulin 5.5 g/dL Albumin/Globulin Ratio 0.4 (1.0-2.7) L Microbiology Date/Time Source Procedure Growth Status 06/13/18 03:00 Rectum Received Clarisse Daley MD Jun 13, 2018 16:19
--- NOTE | 2018-06-13 17:00 | Consultation ---
DATE OF CONSULTATION: 06/13/2018 CONSULTING PHYSICIAN: Hany Brown D.P.M. REQUESTING PHYSICIAN: Brenda Fuller M.D. REASON FOR CONSULTATION: Diabetic foot ulcer, left foot. HISTORY OF PRESENT ILLNESS: The patient is a 72-year-old female who is known to our service for initial consultation here, follow-up at [facility], and continued care at [facility]. The patient developed the left heel ulcer during her discharge in between hospitalizations. When she went home, had self-care as well as a friend caring for her at bedside. During a recent admission at [facility], she was noted to have osteomyelitis on MRI and was treated by ID with approximately 6 weeks of IV antibiotics and was followed up during discharge at [facility]. PAST MEDICAL HISTORY: Significant for end-stage renal disease, severe peripheral vascular disease, right below-knee amputation, blindness due to diabetic retinopathy, anemia, hypertensive cardiovascular disease, ischemic heart disease, and left heel ulcer. MEDICATIONS: Per MAR and include heparin, Santyl, Neurontin. ALLERGIES: To codeine, insulin, opioid including morphine analogs and benazepril. FAMILY HISTORY: Noncontributory. SOCIAL HISTORY: The patient currently resides in a alf facility. REVIEW OF SYSTEMS: HEENT: The patient denies any headaches or ringing in the ears. CARDIOVASCULAR: The patient denies any chest pain or shortness of breath. GENITOURINARY: The patient denies any urgency, frequency, burning upon urination, or hematuria. GASTROINTESTINAL: The patient denies any constipation, diarrhea, blood in the stool PHYSICAL EXAMINATION: VITAL SIGNS: Temperature is 97.2, pulse is 62, blood pressure is 104/56, saturating 97% on room air. EXTREMITIES: Lower extremity physical examination, vascular, nonpalpable pedal pulses noted on the left lower extremity. Pitting edema is noted. No cyanosis noted. DERMATOLOGICAL: There is full-thickness ulceration noted on the posterior lateral aspect of the left heel. Full-thickness wound base is granular. There is no bone or tendon that is exposed. Periwound skin is slightly macerated. No malodor. No erythema is noted. No serous or purulent discharge is noted. NEUROLOGICAL: Protective threshold is absent. MUSCULOSKELETAL: The patient has a right below-knee amputation. No gross deformities on the left. The patient is mainly bed-bound. LABORATORY DATA: White blood cell count is 12.2, hemoglobin and hematocrit is 11.2 and 34.9, and platelet count is 117. Lactic acid is 1.40. Creatinine is 3.7, BUN is 30, potassium is 4.1. Albumin is 2.0 and total protein is 7.5. No lower extremity imaging is noted ASSESSMENT: 1. Diabetic foot ulcer, left heel. 2. History of osteomyelitis, left calcaneus. 3. Diabetes mellitus, type 2. 4. Peripheral arterial disease. 5. End-stage renal disease. 6. Right below-knee amputation. PLAN: 1. No acute signs of infection are noted. Continue wound care with Santyl daily, covered with alginate and dry dressing. Nurses educated to use less of the Santyl. 2. MRI left ankle without contrast to evaluate left heel osteo was ordered. 3. Continue offloading with Prevalon boots. 4. We will follow. Thank you for the courtesy of this consultation. Hany Brown D.P.M. DR: Vincenzo JOB#: [id number] CC:
--- NOTE | 2018-06-13 17:11 | Cardiology Report ---
APPROVED REPORT EKG Measurement Heart [id number] Normal sinus rhythm Normal ECG
--- NOTE | 2018-06-13 17:57 | NUR ---
NURSE NOTES: RN spoke with CHAPIS Pereira HD from [facility] who stated that pt's hemodialysis has been pushed back to tomorrow 06/[address] Fuller.
--- NOTE | 2018-06-13 18:15 | Consultation ---
DATE OF CONSULTATION: 06/13/2018 CARDIOLOGY CONSULTATION CONSULTING PHYSICIAN: Clarisse Daley M.D. REFERRING PHYSICIAN: Brenda Sparks M.D. REASON FOR EVALUATION: Congestive heart failure. HISTORY OF PRESENT ILLNESS: Taken from the patient. The patient is an unfortunate 72-year-old female who came in with altered mental status, hallucinations, and delusions, however, she also has heart failure. She cannot lie down flat. The patient actually wants to be a little bit high up in her bed. She is orthopneic. Again, the main reason for her was she was thinking that she lives in somebody else's body and she wanted to get out of it, so that was clearly delusional and she might have also some hallucinations. PAST MEDICAL HISTORY: Remarkable for diabetes, retinopathy, peripheral vascular disease, end-stage renal disease, on dialysis, heart failure that is all due to diabetes. 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 She has severe diabetic complications. She also has history of hyperlipidemia and hypertension. PAST SURGICAL HISTORY: The patient's surgery included several dialysis accesses and amputation of the right leg which is AKA. MEDICATIONS: Prior to admission included Tylenol, amlodipine, vitamin C, aspirin, atenolol, carvedilol, Colace, gabapentin, hydralazine, hydrocodone, lisinopril, nateglinide, pantoprazole. Currently her medication during this admission include normal saline, vitamin C, aspirin, atenolol, Lovenox, gabapentin, multivitamin, pantoprazole. HABITS: She denies history of drinking, smoking, or drug abuse. ALLERGIES: She is allergic to many medications. List is not clear if they are actually accurate. She listed as allergic to benazepril, codeine, insulin, opioids, morphine. CORONARY RISK FACTORS: She has multiple coronary factors including hypertension, diabetes, hyperlipidemia. REVIEW OF SYSTEMS: Significant for orthopnea. She does not have chest pain according to the patient. No palpitations. No syncope. She is blind due to retinopathy. She is short of breath. She is orthopneic. She has dialysis fistula in the left arm. She has amputated right leg and left leg also has infection. She is bedridden. She has stage II decubitus ulcer on her buttock. PHYSICAL EXAMINATION: GENERAL: This is elderly female. Cornea hazy especially on the left side. VITAL SIGNS: Her blood pressure is 104/56, heart rate is 62, temperature 97.2, and oxygen saturation 97%. HEENT: Her corneas are hazy. NECK: Neck veins are distended up to 10-12 cm. She has carotid upstroke bilaterally preserved without bruit. LUNGS: She has decreased breath sounds with crackles. HEART: Regular with positive S3 and holosystolic murmur on the apex, 3/6. ABDOMEN: Obese, distended, nontender. No masses palpable. EXTREMITIES: Lower extremities, right leg is AKA. Left leg has a dressing on it and the skin is dark. NEUROLOGIC: She does not appear to be had a stroke, but psychiatrically she has delusions. DIAGNOSTIC DATA: EKG shows sinus rhythm with low-voltage R waves on the precordial leads. Chest x-ray showed heart failure with bilateral pleural effusion. LABORATORY DATA: White count 12.2, hemoglobin 11.2, and platelets 114,000. Chemistry include troponin 2.314, which is going down slowly. Alkaline phosphatase 127, glucose was 110. Her CBC as I stated was already listed. IMPRESSION AND RECOMMENDATION: Congestive heart failure, acute on chronic, clinically symptomatic with pleural effusions and evidence of heart failure on chest x-ray and clinically orthopneic. Also, she has evidence of severe mitral regurgitation on physical examination. Questionable endocarditis in the past that was listed as one of her medical problems, although the patient is not aware, so I am going to review her echo. She has elevated troponin. She is at high risk for coronary events. The further plan should be determined based on what the patient wishes and what her primary care feels is necessary. I am going to add statin to her medical management. She is already anticoagulated with Lovenox and I will review her echocardiogram. It is not available for review yet, but tomorrow it is going to be available and potentially she might have ischemic MR. I am going to look for wall motion abnormalities as well. We will consider coronary angiography if that is what the patient and Dr. Sparks recommend. Thank you very much for your consultation. Clarisse Daley M.D. DR: Andreea JOB#: [id number] CC: REKHA
--- NOTE | 2018-06-13 19:46 | NUR ---
HAND-OFF: Report given to CHAPIS Solano.
--- NOTE | 2018-06-13 19:50 | NUR ---
NURSE NOTES: Received report from CHAPIS Buchanan. Patient awake, alert and verbally responsive. No SOB, no acute distress, denies any pain nor any discomfort at this time. IV site on L wrist #22, patent and intact. Bed at lowest position, call light within reach. [facility] will come tomorrow for dialysis, MD aware. AV shunt on R arm, positive for bruit/thrill. Will continue plan of care.
[2018-06-13 20:00] VITALS: BP 122/62
[2018-06-14] VITALS: BP 117/56
--- NOTE | 2018-06-14 03:45 | NUR ---
NURSE NOTES: Patient asleep, breathing even and unlabored, no s/sx of pain nor any discomfort at this time. Bed at lowest position, call light within reach. Will continue to monitor.
[2018-06-14 04:00] VITALS: BP 97/49
--- NOTE | 2018-06-14 07:12 | NUR ---
HAND-OFF: Report given to CHAPIS Patino. Endorsed plan of care.
[2018-06-14] MEDS ORDERED: Heparin Sod 1000 units/ml 10ml IV SCH (07:45)
[2018-06-14 07:57] VITALS: BP 120/77
--- NOTE | 2018-06-14 08:02 | Nephrology Progress Note ---
Assessment/Plan Plan AMS - multifactorial - r/o sepsis. R/O other etiologies. Cannot get deepti consult in this hospital. ESRD HD changed to MWF. L heel ulcer - Podiatry following. ID to advise. Subjective Subjective No new c/o. All consults noted. Objective Objective Last 24 Hour Vital Signs Date Time Temp Pulse Resp B/P (MAP) Pulse Ox O2 Delivery O2 Flow Rate FiO2 06/14/18 07:57 98.2 79 20 120/77 (91) 98 06/14/18 04:00 98.2 67 20 97/49 (65) 98 06/14/18 04:00 67 06/14/18 02:58 98.2 06/14/18 00:00 99.7 77 22 117/56 (76) 96 06/14/18 00:00 76 06/13/18 21:00 Room Air 06/13/18 20:00 99.7 75 18 122/62 (82) 100 06/13/18 20:00 75 06/13/18 16:00 63 06/13/18 12:00 61 06/13/18 12:00 97.2 62 20 104/56 (72) 97 06/13/18 09:00 63 99/62 06/13/18 09:00 Room Air 06/13/18 08:00 57 06/13/18 08:00 97.5 57 20 99/62 (74) 94 Intake and Output 06/13/18 06/14/18 19:00 07:00 Intake Total 740 ml 300 ml Balance 740 ml 300 ml Intake Oral 740 ml 300 ml # Voids 1 # Bowel Movements 3 1 Laboratory Tests 06/13/18 09:10: Troponin I 1.669H 06/13/18 13:50: Troponin I 1.538H Height (Feet): 5 Height (Inches): 6.00 Weight (Pounds): 179 Objective Blind Cv RR Lungs CTA Abd SNT. BS + E Rt AKA stump clean. Lt. heel ulcer. Neuro A+ O . @ times delusional Brenda Fuller MD Jun 14, 2018 08:02
[2018-06-14] MEDS: Ascorbic Acid 500mg tab ORAL SCH (08:07)
[2018-06-14] MEDS: Aspirin Baby 81mg ORAL SCH (08:07)
[2018-06-14] MEDS: Multivitamin w/Minerals tab ORAL SCH (08:08)
[2018-06-14] MEDS: Heparin 5000 units/ml inj SUBQ SCH ×2 (08:09→20:38)
--- NOTE | 2018-06-14 08:24 | NUR ---
NURSE NOTES: Spoke w dr Sparks re platelet today per ok to give heparin w platelet 114 but md did not give parameter when asked by rn
--- NOTE | 2018-06-14 08:43 | NUR ---
NURSE NOTES: Pt awake alert, no distress. no sob. aware of hd today and mri of left ankle. call light within reach. will monitor. bed in lowest position, locked.
[2018-06-14] MEDS: Atenolol 25mg tab ORAL SCH (09:00)
--- NOTE | 2018-06-14 09:17 | NUR ---
CASE MANAGEMENT:REVIEW 06/14/18 SI: AC/CHR CHF. DIABETIC FOOT ULCER 98.2 79 20 120/77 98% ON RA TROPONIN(+) 1.538 IS: HEPARIN SQ Q12 ASA PO QD ATENOLOL PO QD NEURONTIN PO QD PROTONIX PO QD : TELEMETRY STATUS DCP: FROM [facility]
[2018-06-14] MEDS ORDERED: LORazepam 1mg tab ORAL PRN (10:00)
--- NOTE | 2018-06-14 10:50 | Consultation ---
History of Present Illness General Chief Complaint: General Complaint Present Illness HPI 72-year-old lady with history of blindness, diabetes, hypertension, ischemic heart disease, who came in with altered mental status. the pt is more confused than usual the pt is hallucinating and is delusional. the pt has memory impairment. the pts medication was ordered her nurse stated that the pt refused meds. Allergies: Coded Allergies: BENAZEPRIL (Verified Allergy, Unknown, 06/12/18) CODEINE (Verified Allergy, Unknown, 06/12/18) INSULIN ASPART (Verified Allergy, Unknown, 06/12/18) INSULIN DETEMIR (Verified Allergy, Unknown, 06/12/18) OPIOIDS - MORPHINE ANALOGUES (Verified Allergy, Unknown, 06/12/18) Medication History Scheduled Amlodipine Besylate (Norvasc), 5 MG ORAL BID Ascorbic Acid* (Vitamin C*), 500 MG ORAL DAILY, (Reported) Aspirin* (Aspirin*), 81 MG ORAL DAILY, (Reported) Atenolol* (Tenormin*), 25 MG ORAL DAILY, (Reported) Carvedilol (Coreg), 6.25 MG ORAL EVERY 12 HOURS Collagenase Clostridium Hist. (Collagenase), 1 EACH MC DAILY, (Reported) Docusate Sodium* (Colace*), 100 MG ORAL THREE TIMES A DAY Epoetin Marcus (Procrit), 10,000 UNITS SUBQ TUE-TUE-TUE Gabapentin* (Gabapentin*), 100 MG ORAL DAILY, (Reported) Heparin Sod (Porcine) (Heparin Sodium*), 5,000 UNITS SUBQ EVERY 12 HOURS Heparin Sodium,Porcine/Pf (Heparin 1,000 Unit/10 (100/ml)), 5,000 UNIT SUBQ BID, (Reported) Insulin Aspart (Novolog Flexpen), 0 UNITS SUBQ AC+HS Lisinopril* (Lisinopril*), 20 MG ORAL DAILY, (Reported) Multivitamin With Minerals (Multivitamins With Minerals*), 1 TAB ORAL DAILY, ( Reported) Nateglinide* (Starlix*), 60 MG ORAL TIAC Oxycodone Hcl Er* (Oxycontin*), 20 MG ORAL EVERY 12 HOURS Pantoprazole* (Protonix*), 40 MG ORAL DAILY Pantoprazole* (Pantoprazole*), 40 MG ORAL DAILY, (Reported) Polyethylene Glycol 3350* (Miralax*), 17 GM ORAL DAILY Sennosides (Senna-Gen), 17.2 MG ORAL QHS Scheduled PRN Acetaminophen* (Tylenol Extra Strength*), 500 MG ORAL Q6H PRN for Mild Pain/ Temp > 100.5, (Reported) Hydralazine Hcl* (Hydralazine Hcl*), 25 MG ORAL Q4H PRN Hydrocodone Bit/Acetaminophen 5-325* ([place] 5-325*), 1 TAB ORAL Q4H PRN Discontinued Medications Acetaminophen (Acetaminophen), 650 MG ORAL Q6H PRN for Prn Headache/Temp > 101, (Reported) Discontinued Reason: Pt stopped taking med Bisacodyl* (Dulcolax*), 10 MG RECTAL DAILY, (Reported) Discontinued Reason: Pt stopped taking med Calcitriol (Calcitriol*), 0.5 MCG PO DAILY, (Reported) Discontinued Reason: Pt stopped taking med Ferrous Sulfate* (Ferrous Sulfate*), 325 MG ORAL DAILY, (Reported) Discontinued Reason: Pt stopped taking med Gabapentin* (Gabapentin*), 100 MG ORAL HS, (Reported) Discontinued Reason: Pt stopped taking med Losartan Potassium* (Losartan Potassium*), 25 MG ORAL DAILY, (Reported) Discontinued Reason: Pt stopped taking med Meropenem (Meropenem), 1 GM IV DAILY, (Reported) Discontinued Reason: Pt stopped taking med Minocycline Hcl (Minocycline Hcl), 100 MG PO EVERY 12 HOURS, (Reported) Discontinued Reason: Pt stopped taking med Nateglinide* (Starlix*), 60 MG ORAL AC, (Reported) Discontinued Reason: Pt stopped taking med Simethicone* (Simethicone*), 80 MG ORAL Q6HR PRN for GAS PAIN, (Reported) Discontinued Reason: Pt stopped taking med Vancomycin Hcl/D5w (Vancomycin-D5w 1 G/250 Ml), 1 GM IVPB Q24H, (Reported) Discontinued Reason: Pt stopped taking med Patient History Limited by: medical condition History Provided By: Medical Record, PMD Healthcare decision maker Resuscitation status Full Code Advanced Directive on File No Past Medical/Surgical History Past Medical/Surgical History: (1) DM2 (diabetes mellitus, type 2) (2) Endocarditis of mitral valve (3) UTI due to extended-spectrum beta lactamase (ESBL) producing Escherichia coli (4) Corynebacterium striatum group bacteremia (5) ankle fracture s/p ORIF on 05/13/17 and subsequenthardware failure and displaced oblique fractures of distal fibula and tibia (6) R ankle fracture s/p ORIF on 05/13/17 and subsequenthardware failure and displaced oblique fractures of distal fibula and tibia (7) live at [facility] (8) acute on chronic anemia (9) ESRD (end stage renal disease) on dialysis (10) Peripheral vascular disease (11) CKD (chronic kidney disease) stage 4, GFR 15-29 ml/min (12) Hardware failure (13) Status post ORIF of fracture of ankle (14) Necrotic wound of R ankle/foot (15) necrotic wound R ankle (16) Bilateral pleural effusion (17) Anemia of chronic disease (18) NSTEMI (non-ST elevated myocardial infarction) (19) Left heel unstageable pressure ulcer with black eschar adhered to wound bed (20) Hypoalbuminemia (21) Alkaline phosphatase elevation (22) Lives w/ caregiver (23) HTN (hypertension) (24) HLD (hyperlipidemia) (25) Uncontrolled diabetes mellitus (26) Status post fall (27) Hyperkalemia (28) Hyponatremia (29) Pre-syncope (30) ZENY (acute kidney injury) (31) Diabetes mellitus out of control (32) Acute blood loss anemia (33) RIGHT ANKLE FRACTURE (34) Subungual hematoma left hallux (35) Dry blisters L hallux and L 2nd toe (36) Dry blisters L hallux and L 2nd toe Review of Systems Psychiatric: Reports: prior hx, anxiety, hallucinations Physical Exam General Appearance: alert, confused, agitated Last 24 Hour Vital Signs Date Time Temp Pulse Resp B/P (MAP) Pulse Ox O2 Delivery O2 Flow Rate FiO2 06/14/18 09:00 74 120/77 06/14/18 08:40 Room Air 06/14/18 08:00 74 06/14/18 07:57 98.2 79 20 120/77 (91) 98 06/14/18 04:00 98.2 67 20 97/49 (65) 98 06/14/18 04:00 67 06/14/18 02:58 98.2 06/14/18 00:00 99.7 77 22 117/56 (76) 96 06/14/18 00:00 76 06/13/18 21:00 Room Air 06/13/18 20:00 99.7 75 18 122/62 (82) 100 06/13/18 20:00 75 06/13/18 16:00 63 06/13/18 12:00 61 06/13/18 12:00 97.2 62 20 104/56 (72) 97 Intake and Output 06/13/18 06/14/18 18:59 06:59 Intake Total 740 ml 300 ml Balance 740 ml 300 ml Intake Oral 740 ml 300 ml # Voids 1 # Bowel Movements 3 1 Laboratory Tests Test 06/13/18 13:50 Troponin I 1.538 ng/mL (0.000-0.056) Height (Feet): 5 Height (Inches): 6.00 Weight (Pounds): 179 Medications Current Medications Medications (Trade) Dose Ordered Sig/Andre Route PRN Reason Start Time Stop Time Status Last Admin Dose Admin Acetaminophen (Tylenol) 500 mg Q6H PRN ORAL Mild Pain/Temp > 100.5 06/13/18 08:15 07/13/18 08:14 06/14/18 02:28 Ascorbic Acid (Vitamin C) 500 mg DAILY ORAL 06/13/18 09:00 07/13/18 08:59 06/14/18 08:07 Aspirin (ASA) 81 mg DAILY ORAL 06/13/18 09:00 07/13/18 08:59 06/14/18 08:07 Atenolol (Tenormin) 25 mg DAILY ORAL 06/13/18 09:00 07/13/18 08:59 Atorvastatin Calcium (Lipitor) 10 mg BEDTIME ORAL 06/13/18 21:00 07/13/18 20:59 06/13/18 20:39 Collagenase (Santyl) 1 applic DAILY TOPIC 06/13/18 09:00 07/13/18 08:59 06/14/18 10:07 Gabapentin (Neurontin) 100 mg DAILY ORAL 06/13/18 09:00 07/13/18 08:59 06/14/18 08:08 Heparin Sodium (Porcine) (Heparin 5000 units/ml) 5,000 units EVERY 12 HOURS SUBQ 06/13/18 09:00 07/13/18 08:59 06/14/18 08:09 Heparin Sodium (Porcine) (Heparin Sod 1000 units/ml 10ml) 2,000 unit ONCE IV 06/14/18 07:45 06/14/18 23:59 Lorazepam (Ativan) 1 mg Q6H PRN ORAL For Anxiety 06/14/18 10:00 06/21/18 09:59 Multivitamins Therapeutic (Therapeutic Multivitamin) 1 ea DAILY ORAL 06/13/18 09:00 07/13/18 08:59 06/14/18 08:08 Pantoprazole (Protonix) 40 mg DAILY ORAL 06/13/18 09:00 07/13/18 08:59 06/14/18 08:08 Risperidone (RisperDAL) 0.5 mg DAILY ORAL 06/14/18 09:59 07/14/18 09:58 Risperidone (RisperDAL) 1 mg BEDTIME ORAL 06/14/18 21:00 07/14/18 20:59 Sodium Chloride 1,000 ml @ 500 mls/hr Q2H PRN IVLG sbp<90 during hd 06/14/18 07:39 06/14/18 23:59 Assessment/Plan Problem List: (1) Encephalopathy acute ICD Codes: G93.40 - Encephalopathy, unspecified SNOMED: [id number], [id number] Assessment/Plan the pt lacks capacity to refuse medications the pt lacks capacity to leave Abelardo Hogue MD Jun 14, 2018 10:50
[2018-06-14] MEDS ORDERED: Cefepime HCl 2 GM in D5W 55 ML IVPB SCH (11:30)
--- NOTE | 2018-06-14 11:47 | NUR ---
NURSE NOTES: pt had diarrhea x 2 times already, stool sent to lab. wound cx from left heel also sent to lab.
[2018-06-14 12:00] VITALS: BP 110/70
--- NOTE | 2018-06-14 12:07 | Diagnostic Imaging Report ---
Indication: Open wound on left posterior heel, suspected osteomyelitis Technique: Sagittal, coronal, axial T1 fast spin echo and fast spin echo STIR images obtained of the ankle and hindfoot Comparison: none Findings: There is evidence of soft tissue ulceration and soft tissue loss at the posterolateral of the heel. There is underlying increased STIR signal and decreased T1 signal involving the medial calcaneal tuberosity. There is also evidence of erosion of the cortex in this area There is some edema of the adjacent subcutaneous fat. No focal drainable fluid collections to suggest abscess demonstrated. Unusual linear low T1 and high STIR signal is seen traversing the calcaneal tuberosity. This may represent an old hardware tract if there has been prior surgery. There. Is also edema of the plantar tendinous compartments. The remaining bones demonstrate normal marrow signal. The visualized large tendons are unremarkable. No joint effusion. The Achilles tendon appears to be intact. Impression: Evidence of soft tissue ulcer and tissue loss at the posterolateral aspect of the left heel. Underlying marrow edema of the posterolateral subjacent calcaneus, seen on T1 and STIR images, with evidence of cortical loss. This is worrisome for osteomyelitis
--- NOTE | 2018-06-14 12:17 | NUR ---
MRI ANKLE COMPLETED
--- NOTE | 2018-06-14 13:00 | Consultation ---
DATE OF CONSULTATION: 06/14/2018 INFECTIOUS DISEASES CONSULTATION CONSULTING PHYSICIAN: Naya Cain M.D. REFERRING PHYSICIAN: Brenda Fuller M.D. REASON FOR CONSULTATION: Left toe gangrene and foot ulcer. HISTORY OF PRESENTING ILLNESS: This is a 72-year-old lady with history of blindness, diabetes, hypertension, ischemic heart disease, who came in with altered mental status. She was found to have left foot gangrene and a left heel ulcer and an Infectious Diseases consultation has been obtained for antibiotics. She was treated at [facility] for osteomyelitis, which was noted on an MRI. PAST MEDICAL HISTORY: 1. History of diabetes. 2. Peripheral vascular disease. 3. Status post right [id number] amputation. 4. Blindness. 5. Diabetic retinopathy. 6. Diabetic nephropathy. 7. Renal failure. 8. Hypertension. 9. Ischemic heart disease. 10. Left toe gangrene and left heel ulcer. MEDICATIONS: As an inpatient, she is on Risperdal, Ativan, heparin, atorvastatin, ascorbic acid, aspirin, atenolol, collagenase, gabapentin, Protonix, multivitamin, and Tylenol. ALLERGIES: 1. Benazepril. 2. Codeine. 3. Insulin. 4. Opioids, morphine. SOCIAL HISTORY: She does not smoke, drink, or use drugs. FAMILY HISTORY: Her grandmother had cancer. REVIEW OF SYSTEMS: RESPIRATORY: No fever, chills, cough, shortness of breath, or chest pain. CARDIAC: No chest pain. No palpitation. No dizziness. No syncope. GASTROINTESTINAL: She had nausea and vomiting. No abdominal pain or diarrhea. PHYSICAL EXAMINATION: VITAL SIGNS: Temperature of 98.2, T-max of 99.7, pulse of 74, respiratory rate 20, blood pressure 120/77, and O2 saturation of 98%. HEENT: Pupils equally reactive to light and accommodation. Mouth appears clean without thrush. NECK: Supple. No adenopathy. No JVD. CARDIOVASCULAR: Regular rate and rhythm. No murmurs. LUNGS: Clear to auscultation bilaterally. No crackles. No wheezes. ABDOMEN: Soft and nontender. No organomegaly. EXTREMITIES: No cyanosis, no clubbing, no edema. Right stump is clean. Left heel ulcer noted. DIAGNOSTIC AND LABORATORY DATA: Chest x-ray showing interstitial opacification with small bilateral pleural effusion with bibasilar atelectasis and consolidation may be related to CHF, but superimposed pneumonia could not be excluded. A 2D echocardiogram showing moderate mitral regurgitation, moderate tricuspid regurgitation, large pleural effusion, and moderate pulmonary hypertension. ASSESSMENT: 1. This is a 72-year-old lady with history of diabetes, diabetic retinopathy, diabetic nephropathy, hypertension, renal failure, who comes in with left heel ulcer with the concern regarding underlying osteomyelitis. 2. Peripheral arterial disease. 3. Renal failure. PLAN: 1. An MRI of the left ankle has been ordered. 2. We will order wound cultures from the left ankle. 3. We will start the patient on vancomycin and cefepime. 4. We will follow up cultures and adjust antibiotics accordingly. I would like to thank, Dr. Fuller, for this consultation. Naya Cain M.D. DR: CONSTANCE JOB#: [id number] CC: Brenda Fuller M.D.; Fax#: [phone]
[2018-06-14] MEDS: Cefepime 1gm/D5W 55ml IVPB ONE ×4 (13:26→14:45)
[2018-06-14] MEDS ORDERED: Vancomycin 1.5 GM/D5W 250ML IVPB ONE (15:00)
--- NOTE | 2018-06-14 15:32 | NUR ---
NURSE NOTES: paged dr Fuller re imodium per pt request due to episodes of diarrhea, also paged Dr Ant tran diarrhea relayed to dr Kevin tran mri left ankle imaging results, no new orders given per md. Addendum: 06/14/18 at 1747 by AKHIL ROSENTHAL RN received orders from Dr Fuller for imodium 4 mg q4 prn, ordered.
[2018-06-14 16:25] VITALS: BP 100/50
[2018-06-14] MEDS: Loperamide 2mg cap ORAL PRN (16:25)
--- NOTE | 2018-06-14 18:28 | NUR ---
NURSE NOTES: bedscale states pt is 104 kg, patient states that she is 202 as far as she can remember
--- NOTE | 2018-06-14 19:20 | NUR ---
NURSE NOTES: received report from CHAPIS Patino. Patient asleep but able to arouse easily, breathing even and unlabored, no s/sx of pain or any discomfort at this time. IV site on L wrist #22, patent and intact. Dialyzed today, 2 L out per Aixa Patino upper arm AV shunt with dry and intact dressing. Dressing on the L foot dry and intact, changed earlier today. Bed at lowest position, call light within reach. Will continue plan of care.
[2018-06-14 20:00] VITALS: BP 117/58
--- NOTE | 2018-06-14 22:03 | Cardiology Progress Note ---
Assessment/Plan Assessment/Plan CHF, elevated troponin, history of endocarditis, severe MR recommend agressive fluid removal by dyalysis, she is not a candidate for mitral valve intervention due to ostheomyelitis of her foot Subjective Subjective The patient is resting comfortably, she denies chest pain, but she is orthopneic did not sleep well Objective Last 24 Hour Vital Signs Date Time Temp Pulse Resp B/P (MAP) Pulse Ox O2 Delivery O2 Flow Rate FiO2 06/14/18 21:00 Room Air 06/14/18 20:00 73 06/14/18 20:00 98.1 75 18 117/58 (77) 93 06/14/18 16:25 98.0 89 20 100/50 (67) 98 06/14/18 15:21 67 06/14/18 12:00 98.0 80 20 110/70 (83) 98 06/14/18 11:55 65 06/14/18 09:00 74 120/77 06/14/18 08:40 Room Air 06/14/18 08:00 74 06/14/18 07:57 98.2 79 20 120/77 (91) 98 06/14/18 04:00 98.2 67 20 97/49 (65) 98 06/14/18 04:00 67 06/14/18 02:58 98.2 06/14/18 00:00 99.7 77 22 117/56 (76) 96 06/14/18 00:00 76 General Appearance: mild distress EENT: PERRL/EOMI Neck: JVD Rhythm: NSR Cardiovascular: regular rhythm, systolic murmur Respiratory/Chest: decreased breath sounds, accessory muscle use Abdomen: distended Extremities: other - AKA on the right and foot dressing on the left Intake and Output 06/13/18 06/14/18 19:00 07:00 Intake Total 740 ml 300 ml Balance 740 ml 300 ml Intake Oral 740 ml 300 ml # Voids 1 # Bowel Movements 3 1 Microbiology Date/Time Source Procedure Growth Status 06/13/18 00:30 Blood Blood Culture - Preliminary NO GROWTH AFTER 24 HOURS Resulted 06/13/18 00:15 Blood Blood Culture - Preliminary NO GROWTH AFTER 24 HOURS Resulted 06/13/18 05:30 Wound Gram Stain - Final Resulted 06/13/18 05:30 Wound Culture - Preliminary Gram Negative Bacillus 1 Resulted 06/13/18 03:00 Rectum Received Edi,Clarisse Y. MD Jun 14, 2018 22:03
[2018-06-15] VITALS: BP 112/55
[2018-06-15 04:00] VITALS: BP 120/61
[2018-06-15 04:55] LABS: BASOPHILS % (AUTO) 0.3 % (0.0-2.0); EOSINOPHILS % (AUTO) 1.2 % (0.0-3.0); LYMPHOCYTES % (AUTO) 10.8 % (20.0-45.0); MEAN CORPUSCULAR VOLUME 87 FL (80-99); MONOCYTES % (AUTO) 5.2 % (1.0-10.0); NEUTROPHILS % (AUTO) 82.4 % (45.0-75.0); PLATELET COUNT 120 K/UL (150-450); RED BLOOD COUNT 3.66 M/UL (4.20-5.40); WHITE BLOOD COUNT 9.8 K/UL (4.8-10.8)
[2018-06-15 05:18] LABS: ANION GAP 9 mmol/L (5-15); BLOOD UREA NITROGEN 32 mg/dL (7-18); CALCIUM 8.5 MG/DL (8.5-10.1); CARBON DIOXIDE 22 MMOL/L (21-32); CHLORIDE 102 MMOL/L (98-107); CREATININE 3.7 MG/DL (0.55-1.30); SODIUM 133 MMOL/L (136-145)
[2018-06-15] MEDS ORDERED: Vancomycin 1.5 GM/D5W 250ML IVPB ONE (06:00)
--- NOTE | 2018-06-15 07:35 | NUR ---
HAND-OFF: Report given to CHAPIS [place]. Endorsed plan of care.
[2018-06-15 08:00] VITALS: BP 121/61
--- NOTE | 2018-06-15 08:10 | NUR ---
NURSE NOTES: received pt in the bed, awake, alert, vital signs stable, no co pain, no SOB, respiration regular, blind, AV shunt on RT upper arm, obese, RT BKA, dressing on left heel dry and intact, bed in low position, call light within reach.
[2018-06-15] MEDS: Aspirin Baby 81mg ORAL SCH (08:22)
[2018-06-15] MEDS: Atenolol 25mg tab ORAL SCH (08:23)
[2018-06-15] MEDS: Multivitamin w/Minerals tab ORAL SCH (08:24)
[2018-06-15] MEDS: Ascorbic Acid 500mg tab ORAL SCH (08:24)
[2018-06-15] MEDS: Heparin 5000 units/ml inj SUBQ SCH ×2 (08:28→21:04)
[2018-06-15] MEDS ORDERED: Sterile Water Irrig 1000ml IRRIG ONE (09:06)
[2018-06-15] MEDS ORDERED: Tubing IV Secondary IV ONE ×2 (09:06→09:12)
[2018-06-15] MEDS ORDERED: NS 275ml ONE ×2 (09:06→09:12)
--- NOTE | 2018-06-15 10:04 | Nephrology Progress Note ---
Assessment/Plan Plan AMS - multifactorial - r/o sepsis. R/O other etiologies. Cannot get neuro consult in this hospital. ESRD HD changed to MWF. L heel ulcer - Podiatry following. 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 Heel Ulcer - local care. Cardiac Status reviewed with Dr. Daley. 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 Pt. not a candidate for MVR due to overall condition. May be a candidate for TVR if stable Subjective Subjective No new c/o. All consults noted. Objective Objective Last 24 Hour Vital Signs Date Time Temp Pulse Resp B/P (MAP) Pulse Ox O2 Delivery O2 Flow Rate FiO2 06/15/18 08:23 74 121/61 06/15/18 08:00 97.8 74 18 121/61 (81) 92 06/15/18 04:00 98.2 66 18 120/61 (80) 97 06/15/18 04:00 66 06/15/18 00:00 98.3 70 19 112/55 (74) 94 06/15/18 00:00 72 06/14/18 21:00 Room Air 06/14/18 20:00 73 06/14/18 20:00 98.1 75 18 117/58 (77) 93 06/14/18 16:25 98.0 89 20 100/50 (67) 98 06/14/18 15:21 67 06/14/18 12:00 98.0 80 20 110/70 (83) 98 06/14/18 11:55 65 Intake and Output 06/14/18 06/15/18 19:00 07:00 Intake Total 470 ml 840 ml Balance 470 ml 840 ml Intake Oral 360 ml 840 ml IV Total 110 ml # Voids 1 # Bowel Movements 3 2 Laboratory Tests 06/15/18 04:10: White Blood Count 9.8, Red Blood Count 3.66L, Hemoglobin 10.0L, Hematocrit 32.0L , Mean Corpuscular Volume 87, Mean Corpuscular Hemoglobin 27.3, Mean Corpuscular Hemoglobin Concent 31.2L, Red Cell Distribution Width 16.0H, Platelet Count 120L, Mean Platelet Volume 9.6, Neutrophils (%) (Auto) 82.4H, Lymphocytes (%) (Auto) 10.8L, Monocytes (%) (Auto) 5.2, Eosinophils (%) (Auto) 1.2, Basophils (%) (Auto) 0.3, Sodium Level 133L, Potassium Level 4.0, Chloride Level 102, Carbon Dioxide Level 22, Anion Gap 9, Blood Urea Nitrogen 32H, Creatinine 3.7H, Estimat Glomerular Filtration Rate 14.7, Glucose Level 136H, Calcium Level 8.5, Random Vancomycin Level 14.0 Height (Feet): 5 Height (Inches): 6.00 Weight (Pounds): 202 Objective Blind Cv RR Lungs CTA Abd SNT. BS + E Rt AKA stump clean. Lt. heel ulcer. Neuro A+ O . @ times delusional Brenda Fuller MD Jun 15, 2018 10:04
[2018-06-15] MEDS: Loperamide 2mg cap ORAL PRN (11:22)
[2018-06-15 12:01] VITALS: BP 93/50
--- NOTE | 2018-06-15 12:22 | NUR ---
NURSE NOTES: pt VRE rectum, dr. OWENS aware.
--- NOTE | 2018-06-15 12:25 | Infectious Diseases Prog Note ---
Assessment/Plan Assessment/Plan A; Calcaneal osteomyelitis DM ESRD on HD AMS PVD Diabetic retinopathy Mitral regurgitation Elevated troponin P; continue Vancomycin add Meropenem Subjective ROS Limited/Unobtainable: No Respiratory: Reports: no symptoms Cardiovascular: Reports: no symptoms Genitourinary: Reports: no symptoms Musculoskeletal: Reports: no symptoms Allergies: Coded Allergies: BENAZEPRIL (Verified Allergy, Unknown, 06/12/18) CODEINE (Verified Allergy, Unknown, 06/12/18) INSULIN ASPART (Verified Allergy, Unknown, 06/12/18) INSULIN DETEMIR (Verified Allergy, Unknown, 06/12/18) OPIOIDS - MORPHINE ANALOGUES (Verified Allergy, Unknown, 06/12/18) Objective Vital Signs Last 24 Hour Vital Signs Date Time Temp Pulse Resp B/P (MAP) Pulse Ox O2 Delivery O2 Flow Rate FiO2 06/15/18 12:01 98.3 62 18 93/50 (64) 94 06/15/18 09:00 Room Air 06/15/18 08:23 74 121/61 06/15/18 08:00 97.8 74 18 121/61 (81) 92 06/15/18 08:00 72 06/15/18 04:00 98.2 66 18 120/61 (80) 97 06/15/18 04:00 66 06/15/18 00:00 98.3 70 19 112/55 (74) 94 06/15/18 00:00 72 06/14/18 21:00 Room Air 06/14/18 20:00 73 06/14/18 20:00 98.1 75 18 117/58 (77) 93 06/14/18 16:25 98.0 89 20 100/50 (67) 98 06/14/18 15:21 67 Height (Feet): 5 Height (Inches): 6.00 Weight (Pounds): 210 General Appearance: no acute distress HEENT: other - blind, right corneal oppacification Respiratory/Chest: lungs clear Cardiovascular: normal rate Abdomen: soft, non tender Extremities: other - R BKA, left leg edema Skin: ulcers, other - R calcaneous Neurologic/Psychiatric: alert, responsive Microbiology Date/Time Source Procedure Growth Status 06/13/18 00:30 Blood Blood Culture - Preliminary NO GROWTH AFTER 48 HOURS Resulted 06/13/18 00:15 Blood Blood Culture - Preliminary NO GROWTH AFTER 48 HOURS Resulted 06/13/18 05:30 Wound Gram Stain - Final Complete 06/13/18 05:30 Wound Culture - Final Pseudomonas Aeruginosa Streptococcus Group B Diphtheroids Complete 06/13/18 03:00 Nasal Nares MRSA Culture - Final NO METHICILLIN RESISTANT STAPH AUREUS... Complete 06/14/18 10:50 Stool Clostridium difficile Toxin Assay - Final Complete 06/13/18 03:00 Rectum VRE Culture - Final Enterococcus Faecium - Vre Complete 06/13/18 03:00 Rectum - Final NO CARBAPENEM-RESISTANT ENTEROBACTERI... Complete Laboratory Tests Test 06/15/18 04:10 White Blood Count 9.8 K/UL (4.8-10.8) Red Blood Count 3.66 M/UL (4.20-5.40) L Hemoglobin 10.0 G/DL (12.0-16.0) L Hematocrit 32.0 % (37.0-47.0) L Mean Corpuscular Volume 87 FL (80-99) Mean Corpuscular Hemoglobin 27.3 PG (27.0-31.0) Mean Corpuscular Hemoglobin Concent 31.2 G/DL (32.0-36.0) L Red Cell Distribution Width 16.0 % (11.6-14.8) H Platelet Count 120 K/UL (150-450) L Mean Platelet Volume 9.6 FL (6.5-10.1) Neutrophils (%) (Auto) 82.4 % (45.0-75.0) H Lymphocytes (%) (Auto) 10.8 % (20.0-45.0) L Monocytes (%) (Auto) 5.2 % (1.0-10.0) Eosinophils (%) (Auto) 1.2 % (0.0-3.0) Basophils (%) (Auto) 0.3 % (0.0-2.0) Sodium Level 133 MMOL/L (136-145) L Potassium Level 4.0 MMOL/L (3.5-5.1) Chloride Level 102 MMOL/L (98-107) Carbon Dioxide Level 22 MMOL/L (21-32) Anion Gap 9 mmol/L (5-15) Blood Urea Nitrogen 32 mg/dL (7-18) H Creatinine 3.7 MG/DL (0.55-1.30) H Estimat Glomerular Filtration Rate 14.7 mL/min (>60) Glucose Level 136 MG/DL (74-106) H Calcium Level 8.5 MG/DL (8.5-10.1) Random Vancomycin Level 14.0 ug/mL Current Medications Medications (Trade) Dose Ordered Sig/Andre Route PRN Reason Start Time Stop Time Status Last Admin Dose Admin Acetaminophen (Tylenol) 500 mg Q6H PRN ORAL Mild Pain/Temp > 100.5 06/13/18 08:15 07/13/18 08:14 06/14/18 02:28 Ascorbic Acid (Vitamin C) 500 mg DAILY ORAL 06/13/18 09:00 07/13/18 08:59 06/15/18 08:24 Aspirin (ASA) 81 mg DAILY ORAL 06/13/18 09:00 07/13/18 08:59 06/15/18 08:22 Atenolol (Tenormin) 25 mg DAILY ORAL 06/13/18 09:00 07/13/18 08:59 06/15/18 08:23 Atorvastatin Calcium (Lipitor) 10 mg BEDTIME ORAL 06/13/18 21:00 07/13/18 20:59 06/14/18 20:37 Cefepime HCl 0.5 gm/Dextrose 55 ml @ 110 mls/hr Q24H IVPB 06/15/18 18:00 06/22/18 17:59 Collagenase (Santyl) 1 applic DAILY TOPIC 06/13/18 09:00 07/13/18 08:59 06/15/18 08:30 Gabapentin (Neurontin) 100 mg DAILY ORAL 06/13/18 09:00 07/13/18 08:59 06/15/18 08:23 Heparin Sodium (Porcine) (Heparin 5000 units/ml) 5,000 units EVERY 12 HOURS SUBQ 06/13/18 09:00 07/13/18 08:59 06/15/18 08:28 Heparin Sodium (Porcine) (Heparin Sod 1000 units/ml 10ml) 2,000 unit ONCE IV 06/16/18 10:15 06/16/18 23:59 Loperamide HCl (Imodium) 4 mg Q4H PRN ORAL diarrhea 06/14/18 15:41 07/14/18 15:40 06/15/18 11:22 Lorazepam (Ativan) 1 mg Q6H PRN ORAL For Anxiety 06/14/18 10:00 06/21/18 09:59 Multivitamins Therapeutic (Therapeutic Multivitamin) 1 ea DAILY ORAL 06/13/18 09:00 07/13/18 08:59 06/15/18 08:24 Pantoprazole (Protonix) 40 mg DAILY ORAL 06/13/18 09:00 07/13/18 08:59 06/15/18 08:24 Risperidone (RisperDAL) 0.5 mg DAILY ORAL 06/14/18 09:59 07/14/18 09:58 Risperidone (RisperDAL) 1 mg BEDTIME ORAL 06/14/18 21:00 07/14/18 20:59 06/14/18 20:37 Sodium Chloride 1,000 ml @ 500 mls/hr Q2H PRN IVLG sbp<90 during hd 06/16/18 10:08 06/16/18 23:59 Vancomycin HCl (Vanco rx to dose) 1 ea DAILY PRN MISC Per rx protocol 06/14/18 11:30 07/14/18 11:29 Joe Melgar MD Jun 15, 2018 12:25
--- NOTE | 2018-06-15 12:46 | Cardiology Progress Note ---
Assessment/Plan Assessment/Plan CHF, elevated troponin, history of endocarditis MR TR dailysis planned tomorrow [place] echo noted bp one lwo resding oathewise was fine Subjective Cardiovascular: Denies: chest pain, lightheadedness Respiratory: Denies: shortness of breath Gastrointestinal/Abdominal: Denies: abdominal pain Genitourinary: Denies: burning Objective Last 24 Hour Vital Signs Date Time Temp Pulse Resp B/P (MAP) Pulse Ox O2 Delivery O2 Flow Rate FiO2 06/15/18 12:01 98.3 62 18 93/50 (64) 94 06/15/18 09:00 Room Air 06/15/18 08:23 74 121/61 06/15/18 08:00 97.8 74 18 121/61 (81) 92 06/15/18 08:00 72 06/15/18 04:00 98.2 66 18 120/61 (80) 97 06/15/18 04:00 66 06/15/18 00:00 98.3 70 19 112/55 (74) 94 06/15/18 00:00 72 06/14/18 21:00 Room Air 06/14/18 20:00 73 06/14/18 20:00 98.1 75 18 117/58 (77) 93 06/14/18 16:25 98.0 89 20 100/50 (67) 98 06/14/18 15:21 67 General Appearance: alert Neck: supple Cardiovascular: regular rhythm Respiratory/Chest: lungs clear Abdomen: normal bowel sounds, non tender, soft Extremities: moderate edema Intake and Output 06/14/18 06/15/18 19:00 07:00 Intake Total 470 ml 840 ml Balance 470 ml 840 ml Intake Oral 360 ml 840 ml IV Total 110 ml # Voids 1 # Bowel Movements 3 2 Laboratory Tests Test 06/15/18 04:10 White Blood Count 9.8 K/UL (4.8-10.8) Red Blood Count 3.66 M/UL (4.20-5.40) L Hemoglobin 10.0 G/DL (12.0-16.0) L Hematocrit 32.0 % (37.0-47.0) L Mean Corpuscular Volume 87 FL (80-99) Mean Corpuscular Hemoglobin 27.3 PG (27.0-31.0) Mean Corpuscular Hemoglobin Concent 31.2 G/DL (32.0-36.0) L Red Cell Distribution Width 16.0 % (11.6-14.8) H Platelet Count 120 K/UL (150-450) L Mean Platelet Volume 9.6 FL (6.5-10.1) Neutrophils (%) (Auto) 82.4 % (45.0-75.0) H Lymphocytes (%) (Auto) 10.8 % (20.0-45.0) L Monocytes (%) (Auto) 5.2 % (1.0-10.0) Eosinophils (%) (Auto) 1.2 % (0.0-3.0) Basophils (%) (Auto) 0.3 % (0.0-2.0) Sodium Level 133 MMOL/L (136-145) L Potassium Level 4.0 MMOL/L (3.5-5.1) Chloride Level 102 MMOL/L (98-107) Carbon Dioxide Level 22 MMOL/L (21-32) Anion Gap 9 mmol/L (5-15) Blood Urea Nitrogen 32 mg/dL (7-18) H Creatinine 3.7 MG/DL (0.55-1.30) H Estimat Glomerular Filtration Rate 14.7 mL/min (>60) Glucose Level 136 MG/DL (74-106) H Calcium Level 8.5 MG/DL (8.5-10.1) Random Vancomycin Level 14.0 ug/mL Microbiology Date/Time Source Procedure Growth Status 06/13/18 00:30 Blood Blood Culture - Preliminary NO GROWTH AFTER 48 HOURS Resulted 06/13/18 00:15 Blood Blood Culture - Preliminary NO GROWTH AFTER 48 HOURS Resulted 06/13/18 05:30 Wound Gram Stain - Final Complete 06/13/18 05:30 Wound Culture - Final Pseudomonas Aeruginosa Streptococcus Group B Diphtheroids Complete 06/13/18 03:00 Nasal Nares MRSA Culture - Final NO METHICILLIN RESISTANT STAPH AUREUS... Complete 06/14/18 10:50 Stool Clostridium difficile Toxin Assay - Final Complete 06/13/18 03:00 Rectum VRE Culture - Final Enterococcus Faecium - Vre Complete 06/13/18 03:00 Rectum - Final NO CARBAPENEM-RESISTANT ENTEROBACTERI... Complete Binh Nguyen MD Jun 15, 2018 12:46
[2018-06-15] MEDS ORDERED: Meropenem 500 MG in NS 55 ML IVPB SCH (14:00)
--- NOTE | 2018-06-15 14:12 | NUR ---
NURSE NOTES: pt resting, no distress noted, HD 06/16, HD nurse aware, continue monitoring.
[2018-06-15 16:02] VITALS: BP 100/55
[2018-06-15] MEDS ORDERED: Cefepime HCl 0.5 GM in D5W 55 ML IVPB SCH (18:00)
--- NOTE | 2018-06-15 19:02 | NUR ---
HAND-OFF: Report given to SHAHANA NATION.
--- NOTE | 2018-06-15 19:10 | NUR ---
NURSE NOTES: Received report from CHAPIS Lanier. Patient is resting in bed. No s/s of acute distress. Bed in lowest position, call light within reach. Will continue plan of care.
[2018-06-15 20:00] VITALS: BP 105/50
[2018-06-16] VITALS (63 sets, daily range): BP systolic 58–155; BP diastolic 32–102
[2018-06-16] MEDS ORDERED: Sodium Chloride 500ML 500 ML IV ONE (01:00)
--- NOTE | 2018-06-16 01:00 | NUR ---
NURSE NOTES: Patient noted with blood pressure 68/37, HR 61, oxygen saturation 90% with 3 liters via n/c. Pt arousable, but drowsy. Notified Dr. Fuller, new order received for 500 ml bolus. Order read back and carried out. Will continue to monitor.
--- NOTE | 2018-06-16 01:30 | NUR ---
NURSE NOTES: Following NS 500 ml bolus, pt's blood pressure is 58/32, HR 47, oxygen at 85% with 5 liters via n/c. Pt's oxygen demand is increasing and requires more oxygen to maintain saturation above 90%. Pt still arousable but drowsy. Noptified Dr. Fuller and order recieved to transfer to ICU with dopamin drip. Orders read back and carried out. Addendum: 06/16/18 at 0250 by ROBSON HARKINS RN Charge nurse and nursing art supervisor aware of situation.
[2018-06-16] MEDS ORDERED: DOPamine 400mg/250ml 250 ML IV SCH (02:00)
--- NOTE | 2018-06-16 02:00 | NUR ---
TRANSFER TO FLOOR: Patient transferred to ICU bed E, per Dr. Fuller. Report given to CHAPIS Barrera. Medications given to CHAPIS Barrera. According to chart, there is no next of kin to notify of condition and transfer. During transfer, pt becoming more aroused and restless.
--- NOTE | 2018-06-16 02:15 | NUR ---
NURSE NOTES: Received report from CHAPIS Fraire. patient transferred from Telemetry room 209-1 to ICU via [place] bed accompanied by RN per Dr. Fuller due to low BP 58/32, per Juno Fuller ordered To transfer Pt to ICU, give Dopamine Drip to keep SBP above 90, NS bolus given by Juno per MD's order. Patient responsive to verbal and tactile stimuli. BP checked at 0200 79/42 HR 62 02 sat 99% with Venturi mask of 15L resp 20. Rechecked BP at 0210 on left arm BP 94/66 HR 60. Denies any pain or discomfort. Left wrist #22 intact. Right BKA,left heel PS sacral redness. No s/s of acute and cardiac distress. Bed alarm om. Bed locked and in low position. Contact isolation maintained and observed. will continue plan of care.
--- NOTE | 2018-06-16 02:15 | NUR ---
NURSE NOTES: patient noted with Left heel PS, sacral PS, and left ischium open skin.Treatment done
[2018-06-16] MEDS ORDERED: DOPamine 400mg/250ml 250 ML IV ONE (03:55)
[2018-06-16] MEDS ORDERED: LORazepam 1mg tab ORAL PRN (04:00)
[2018-06-16] MEDS: DOPamine 400mg/250ml 250 ML IV SCH (04:06)
--- NOTE | 2018-06-16 04:06 | NUR ---
NURSE NOTES: BP dropped to SBP 63/41 HR 49 unable to find a vein. ER MD Dr Spears notified for insertion of Central line. MD came and inserted Right Femoral TLC aseptic technique. Per MD it's okay to use the Right Femoral TLC. Started Dopamine drip 10mcg/kg/min. Will continue to monitor patient.
--- NOTE | 2018-06-16 04:51 | Emergency Room Report ---
History of Present Illness General Chief Complaint: General Complaint Source: Medical Record, PMD Present Illness Allergies: Coded Allergies: BENAZEPRIL (Verified Allergy, Unknown, 06/12/18) CODEINE (Verified Allergy, Unknown, 06/12/18) INSULIN ASPART (Verified Allergy, Unknown, 06/12/18) INSULIN DETEMIR (Verified Allergy, Unknown, 06/12/18) OPIOIDS - MORPHINE ANALOGUES (Verified Allergy, Unknown, 06/12/18) Patient History Last Menstrual Period: n/a Now: No Nursing Documentation-PMH Hx Hypertension: Yes Hx COPD: No - anemia Hx Diabetes: Yes Hx Cancer: No Hx Neurological Problems: No Physical Exam Vital Signs Date Time Temp Pulse Resp B/P (MAP) Pulse Ox O2 Delivery O2 Flow Rate FiO2 06/12/18 23:38 98.1 60 20 94/55 95 Nasal Cannula 2.0 Procedures Central Line Central Line : Consent: Emergent Central Line Lumen: triple Maximal Sterile Barrier Tech: yes cap, yes mask, yes sterile gown, yes sterile gloves, yes large sterile sheet, yes hand hygiene, yes chlorhexidine prep Central Line Postion: femoral (R) Anesthesia: Lidocaine cc's of anesthesia: 10 Complications: none Central Line Post Position: sutured, good blood return Attempts: One Patient Tolerated: Well Complications: None Progress I was called to the ICU to place a central line. Patient was septic and hypotensive. She need to be on pressors. Patient was lethargic and cannot respond. I place a triple-lumen under sterile condition. Patient tolerable procedure without a problem. Medical Decision Making Diagnostic Impression: Primary Impression: NSTEMI (non-ST elevated myocardial infarction) Additional Impressions: Anemia of chronic disease Bilateral pleural effusion Last Vital Signs Date Time Temp Pulse Resp B/P (MAP) Pulse Ox O2 Delivery O2 Flow Rate FiO2 06/16/18 04:30 96 13 128/62 (84) 97 06/16/18 04:00 97.7 06/15/18 21:00 Room Air 06/13/18 03:50 2.0 Disposition: ADMITTED INPATIENT Condition: Serious Referrals: Brenda Fuller MD (PCP) Loi Spears MD Jun 16, 2018 04:51
--- NOTE | 2018-06-16 05:00 | NUR ---
NURSE NOTES: patient BP 121/62 HR 81 decreased Dopamine drip to 5mcg/kg/min. Patient in bed resting no s/s of acute and cardiac distress noted. Will continue plan of care.
[2018-06-16 05:11] LABS: BASOPHILS % (AUTO) 0.5 % (0.0-2.0); EOSINOPHILS % (AUTO) 0.9 % (0.0-3.0); HEMATOCRIT 34.6 % (37.0-47.0); HEMOGLOBIN 10.8 G/DL (12.0-16.0); LYMPHOCYTES % (AUTO) 14.3 % (20.0-45.0); MEAN CORPUSCULAR VOLUME 88 FL (80-99); NEUTROPHILS % (AUTO) 77.3 % (45.0-75.0); PLATELET COUNT 122 K/UL (150-450); RED BLOOD COUNT 3.94 M/UL (4.20-5.40); RED CELL DISTRIBUTION WIDTH 16.3 % (11.6-14.8); WHITE BLOOD COUNT 8.3 K/UL (4.8-10.8)
[2018-06-16 05:31] LABS: ANION GAP 9 mmol/L (5-15); BLOOD UREA NITROGEN 36 mg/dL (7-18); CALCIUM 8.7 MG/DL (8.5-10.1); CARBON DIOXIDE 23 MMOL/L (21-32); CHLORIDE 100 MMOL/L (98-107); CREATININE 4.1 MG/DL (0.55-1.30); PHOSPHORUS 4.1 MG/DL (2.5-4.9); POTASSIUM 4.2 MMOL/L (3.5-5.1); SODIUM 132 MMOL/L (136-145)
--- NOTE | 2018-06-16 06:00 | NUR ---
NURSE NOTES: Patient with continuos episode of removing the venturi mask and attempting to pull out Right Femoral reality orientation provided. Patient teaching provided, encouraged patient to verbalize needs, fears and feelings to staff not effective. MD with bilateral soft wrist restraint order noted and carried out. Will continue to monitor patient.
--- NOTE | 2018-06-16 06:45 | NUR ---
NURSE NOTES: BP 125/54 Decreased Dopamine drip to 2mcg/kg/min. Patient awake, no moaning no facial grimaces.
--- NOTE | 2018-06-16 07:30 | NUR ---
NURSE NOTES: Received report from CHAPIS Barrera. pt awake in bed. talkative and A/Ox2. Dopamine Drip @ 2mch/kg/hr. 02 sat 99% with Venturi mask of 15L resp 18, changed to NC 4L. Denies any pain or discomfort. Left wrist #22 intact, rt tlc. Right BKA,left heel PS sacral redness. bilateral soft wrist restraints noted. No s/s of acute and cardiac distress. Bed alarm om. Bed locked and in low position. Contact isolation. will continue to monitor pt.
--- NOTE | 2018-06-16 07:31 | NUR ---
HAND-OFF: Report given to Anil RN. Patient in bed awake,alert oriented X3. Able to verbalize needs kknown to staff. Charge nurse eating breakfasts with 1:1 assist with RN.Patient in stable condition.
--- NOTE | 2018-06-16 08:15 | Nephrology Progress Note ---
Assessment/Plan Plan Hypotension - R/O new sepsis - on IV Abx per ID. R/O medications induced - d/'ed all potetial agents. AMS - multifactorial - r/o sepsis. R/O other etiologies. Cannot get neuro consult in this hospital. ESRD HD changed to MWF. L heel ulcer - Podiatry following. 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 Heel Ulcer - local care. Cardiac Status reviewed with Dr. Daley. 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 Pt. not a candidate for MVR due to overall condition. May be a candidate for TVR if stable Subjective Subjective Transferred to ICU due to hypotesion, SBP's 60-80. On Dopamine drip @ 2 mcgm/Kg/Min. No new c/o. Objective Objective Last 24 Hour Vital Signs Date Time Temp Pulse Resp B/P (MAP) Pulse Ox O2 Delivery O2 Flow Rate FiO2 06/16/18 07:00 76 15 116/58 (77) 98 06/16/18 06:45 73 15 121/76 (91) 98 06/16/18 06:30 73 15 126/97 (107) 98 06/16/18 06:15 76 15 116/56 (76) 98 06/16/18 06:00 76 15 114/63 (80) 98 06/16/18 05:45 76 15 113/59 (77) 98 06/16/18 05:30 77 15 114/57 (76) 98 06/16/18 05:15 79 14 119/63 (81) 99 06/16/18 05:00 81 14 121/62 (81) 99 06/16/18 04:45 96 13 128/62 (84) 97 06/16/18 04:30 96 13 128/62 (84) 97 06/16/18 04:15 98 18 123/63 (83) 97 06/16/18 04:06 78/46 06/16/18 04:00 97.7 52 20 73/36 (48) 100 06/16/18 04:00 Venturi Mask 15.0 06/16/18 03:00 61 20 90/66 (74) 100 06/16/18 02:30 61 20 91/64 (73) 100 06/16/18 02:00 61 06/16/18 02:00 97.4 61 20 94/66 (75) 100 06/16/18 01:35 47 16 58/32 (41) 85 06/16/18 01:15 58 16 60/36 (44) 88 06/16/18 01:00 62 16 62/36 (45) 90 06/16/18 00:45 61 18 68/37 (47) 90 06/16/18 00:30 63 18 78/38 (51) 92 06/16/18 00:00 60 06/16/18 00:00 97.5 60 19 89/54 (66) 95 06/15/18 21:00 Room Air 06/15/18 20:00 98.2 66 19 105/50 (68) 95 06/15/18 20:00 64 06/15/18 16:02 98.8 67 20 100/55 (70) 94 06/15/18 16:00 61 06/15/18 12:01 98.3 62 18 93/50 (64) 94 06/15/18 12:00 60 06/15/18 09:00 Room Air 06/15/18 08:23 74 121/61 Intake and Output 06/15/18 06/16/18 19:00 07:00 Intake Total 895 ml Balance 895 ml Intake Oral 840 ml IV Total 55 ml # Bowel Movements 1 Laboratory Tests 06/16/18 04:00: White Blood Count 8.3, Red Blood Count 3.94L, Hemoglobin 10.8L, Hematocrit 34.6L , Mean Corpuscular Volume 88, Mean Corpuscular Hemoglobin 27.4, Mean Corpuscular Hemoglobin Concent 31.2L, Red Cell Distribution Width 16.3H, Platelet Count 122L, Mean Platelet Volume 8.8, Neutrophils (%) (Auto) 77.3H, Lymphocytes (%) (Auto) 14.3L, Monocytes (%) (Auto) 7.0, Eosinophils (%) (Auto) 0.9, Basophils (%) (Auto) 0.5, Sodium Level 132L, Potassium Level 4.2, Chloride Level 100, Carbon Dioxide Level 23, Anion Gap 9, Blood Urea Nitrogen 36H, Creatinine 4.1H, Estimat Glomerular Filtration Rate 13.1, Glucose Level 148H, Calcium Level 8.7, Phosphorus Level 4.1, Random Vancomycin Level 21.0 Height (Feet): 5 Height (Inches): 6.00 Weight (Pounds): 233 Objective Blind Cv RR Lungs CTA Abd SNT. BS + E Rt AKA stump clean. Lt. heel ulcer. Neuro A+ O . @ times delusional Brenda Fuller MD Jun 16, 2018 08:15
[2018-06-16] MEDS ORDERED: Ascorbic Acid 500mg tab ORAL SCH (09:00)
[2018-06-16] MEDS ORDERED: Atenolol 25mg tab ORAL SCH (09:00)
[2018-06-16] MEDS: Multivitamin w/Minerals tab ORAL SCH (09:07)
[2018-06-16] MEDS: Aspirin Baby 81mg ORAL SCH (09:07)
[2018-06-16] MEDS: Heparin 5000 units/ml inj SUBQ SCH ×2 (09:21→20:27)
--- NOTE | 2018-06-16 09:30 | NUR ---
NURSE NOTES: pt assisted with meal. no c/o sob. vss. pt repositioned.
--- NOTE | 2018-06-16 09:34 | NUR ---
RD ASSESSMENT & RECOMMENDATIONS SEE CARE ACTIVITY FOR COMPLETE ASSESSMENT DAILY ESTIMATED NEEDS: Needs based on ESRD on HD, Wounds (Adj Wt 62kg) 25-30 kcals/kg 7696-3084 total kcals 1.25-1.8 g protein/kg 76-112 g total protein Fluid per MD, on HD NUTRITION DIAGNOSIS: 1) Increased kcal, pro needs R/T wound healing and renal dysfunction as evidenced by pt w/ open left heel wound, w/ ESRD on HD. . CURRENT DIET: Renal puree PO DIET RECOMMENDATIONS: RENAL, CCHO MED + Double Protein Portions (texture per AUTOMATION SOFTWARE ENGINEER) ADDITIONAL RECOMMENDATIONS: 1) Wound healing: Add Dimitry 1pkt BID , Nephrovite 1 tab daily 2) Obtain dry wt post HD on a calibrated bed scale 3) Monitor lytes closely 4) AUTOMATION SOFTWARE ENGINEER bandar, pt currently on puree diet 5) Add NEPRO 1 can daily + high protein snacks prn 6) Monitor po intake; pt adm w/ poor po bar captain
--- NOTE | 2018-06-16 09:55 | NUR ---
HAND-OFF: Report given to report given to Babatunde. pt in no acute distress
--- NOTE | 2018-06-16 10:00 | NUR ---
NURSE NOTES: restraints removed. pt stated understanding to not remove tubings and to remain in bed. will continue to monitor closely
[2018-06-16] MEDS ORDERED: Heparin Sod 1000 units/ml 10ml IV ONE (10:15)
[2018-06-16] MEDS ORDERED: Heparin Sod 1000 units/ml 10ml IV SCH (10:15)
--- NOTE | 2018-06-16 10:15 | NUR ---
NURSE NOTES: Patient received lying in bed, awake and alert x 2 with forgetfulness. No complains of pain or acute respiratory distress, on nasal cannula 4 lpm, oxygen saturation 99%. Right upper Arm AV shunt with positive bruit and thrill, pending hemodialysis today. Right femoral TLC running dopamine at 2 mcg/kg/min, asymptomatic. Left forearm IV asymptomatic, left AC with edema noted on upper arm, will discontinue IV on AC, both saline lock. Patient is oliguric. Left heel dressing intact and offloaded. Right AKA stump is free from complications or skin issues. Bilateral lower extremity edema noted +2. Safety measures implemented. SR on the monitor - 66 heart rate. Will continue to monitor the patient.
--- NOTE | 2018-06-16 10:36 | Infectious Diseases Prog Note ---
"Assessment/Plan Assessment/Plan antibiotics : vancomycin iv, meropenem A 1. calcaneal osteomyelitis with group B streptococcus | pseudomonas 2. renal failure 3. diabetes mellitus 4. hypertension 5. rectal VRE colonization P 1. continue iv vancomycin, meropenem 2. will follow up cultures Subjective ROS Limited/Unobtainable: Yes Allergies: Coded Allergies: BENAZEPRIL (Verified Allergy, Unknown, 06/12/18) CODEINE (Verified Allergy, Unknown, 06/12/18) INSULIN ASPART (Verified Allergy, Unknown, 06/12/18) INSULIN DETEMIR (Verified Allergy, Unknown, 06/12/18) OPIOIDS - MORPHINE ANALOGUES (Verified Allergy, Unknown, 06/12/18) Objective Vital Signs Last 24 Hour Vital Signs Date Time Temp Pulse Resp B/P (MAP) Pulse Ox O2 Delivery O2 Flow Rate FiO2 06/16/18 07:00 76 15 116/58 (77) 98 06/16/18 06:45 73 15 121/76 (91) 98 06/16/18 06:30 73 15 126/97 (107) 98 06/16/18 06:15 76 15 116/56 (76) 98 06/16/18 06:00 76 15 114/63 (80) 98 06/16/18 05:45 76 15 113/59 (77) 98 06/16/18 05:30 77 15 114/57 (76) 98 06/16/18 05:15 79 14 119/63 (81) 99 06/16/18 05:00 81 14 121/62 (81) 99 06/16/18 04:45 96 13 128/62 (84) 97 06/16/18 04:30 96 13 128/62 (84) 97 06/16/18 04:15 98 18 123/63 (83) 97 06/16/18 04:06 78/46 06/16/18 04:00 97.7 52 20 73/36 (48) 100 06/16/18 04:00 Venturi Mask 15.0 06/16/18 03:00 61 20 90/66 (74) 100 06/16/18 02:30 61 20 91/64 (73) 100 06/16/18 02:00 61 06/16/18 02:00 97.4 61 20 94/66 (75) 100 06/16/18 01:35 47 16 58/32 (41) 85 06/16/18 01:15 58 16 60/36 (44) 88 06/16/18 01:00 62 16 62/36 (45) 90 06/16/18 00:45 61 18 68/37 (47) 90 06/16/18 00:30 63 18 78/38 (51) 92 06/16/18 00:00 60 06/16/18 00:00 97.5 60 19 89/54 (66) 95 06/15/18 21:00 Room Air 06/15/18 20:00 98.2 66 19 105/50 (68) 95 06/15/18 20:00 64 06/15/18 16:02 98.8 67 20 100/55 (70) 94 06/15/18 16:00 61 06/15/18 12:01 98.3 62 18 93/50 (64) 94 06/15/18 12:00 60 Height (Feet): 5 Height (Inches): 6.00 Weight (Pounds): 233 Respiratory/Chest: lungs clear Cardiovascular: normal rate, regular rhythm, no gallop/murmur Abdomen: soft, non tender Extremities: no edema, other - right stump clean, left heel ulcer Microbiology Date/Time Source Procedure Growth Status 06/14/18 10:50 Other Gram Stain - Final Resulted 06/14/18 10:50 Wound Culture - Preliminary Gram Negative Bacillus 1 Streptococcus Group B Resulted 06/14/18 10:50 Stool Clostridium difficile Toxin Assay - Final Complete Laboratory Tests Test 06/16/18 04:00 White Blood Count 8.3 K/UL (4.8-10.8) Red Blood Count 3.94 M/UL (4.20-5.40) L Hemoglobin 10.8 G/DL (12.0-16.0) L Hematocrit 34.6 % (37.0-47.0) L Mean Corpuscular Volume 88 FL (80-99) Mean Corpuscular Hemoglobin 27.4 PG (27.0-31.0) Mean Corpuscular Hemoglobin Concent 31.2 G/DL (32.0-36.0) L Red Cell Distribution Width 16.3 % (11.6-14.8) H Platelet Count 122 K/UL (150-450) L Mean Platelet Volume 8.8 FL (6.5-10.1) Neutrophils (%) (Auto) 77.3 % (45.0-75.0) H Lymphocytes (%) (Auto) 14.3 % (20.0-45.0) L Monocytes (%) (Auto) 7.0 % (1.0-10.0) Eosinophils (%) (Auto) 0.9 % (0.0-3.0) Basophils (%) (Auto) 0.5 % (0.0-2.0) Sodium Level 132 MMOL/L (136-145) L Potassium Level 4.2 MMOL/L (3.5-5.1) Chloride Level 100 MMOL/L (98-107) Carbon Dioxide Level 23 MMOL/L (21-32) Anion Gap 9 mmol/L (5-15) Blood Urea Nitrogen 36 mg/dL (7-18) H Creatinine 4.1 MG/DL (0.55-1.30) H Estimat Glomerular Filtration Rate 13.1 mL/min (>60) Glucose Level 148 MG/DL (74-106) H Calcium Level 8.7 MG/DL (8.5-10.1) Phosphorus Level 4.1 MG/DL (2.5-4.9) Troponin I Pending Random Vancomycin Level 21.0 ug/mL Current Medications Medications (Trade) Dose Ordered Sig/Andre Route PRN Reason Start Time Stop Time Status Last Admin Dose Admin Acetaminophen (Tylenol) 500 mg Q6H PRN ORAL Mild Pain/Temp > 100.5 06/16/18 02:15 07/13/18 08:14 Aspirin (ASA) 81 mg DAILY ORAL 06/16/18 09:00 07/13/18 08:59 06/16/18 09:07 Atorvastatin Calcium (Lipitor) 10 mg BEDTIME ORAL 06/16/18 21:00 07/13/18 20:59 Chlorhexidine Gluconate (Fabiola-Hex 2%) 1 applic DAILY@1999 TOPIC 06/16/18 20:00 07/16/18 19:59 Collagenase (Santyl) 1 applic DAILY TOPIC 06/16/18 09:00 07/13/18 08:59 06/16/18 09:22 Dopamine HCl/ Dextrose 250 ml @ 0 mls/hr Q24H IV 06/17/18 02:00 07/16/18 01:59 06/16/18 04:06 Heparin Sodium (Porcine) (Heparin 5000 units/ml) 5,000 units EVERY 12 HOURS SUBQ 06/16/18 09:00 07/13/18 08:59 06/16/18 09:21 Loperamide HCl (Imodium) 4 mg Q4H PRN ORAL diarrhea 06/16/18 03:45 07/14/18 15:40 Meropenem 500 mg/ Sodium Chloride 55 ml @ 110 mls/hr Q24H IVPB 06/16/18 14:00 06/20/18 13:59 Multivitamins Therapeutic (Therapeutic Multivitamin) 1 ea DAILY ORAL 06/16/18 09:00 07/13/18 08:59 06/16/18 09:07 Pantoprazole (Protonix) 40 mg DAILY ORAL 06/16/18 09:00 07/13/18 08:59 06/16/18 09:07 Risperidone (RisperDAL) 1 mg BEDTIME ORAL 06/16/18 21:00 07/14/18 20:59 Naya Cain MD Jun 16, 2018 10:36"
[2018-06-16] MEDS ORDERED: NS 500ML ONE ×2 (10:50→10:53)
--- NOTE | 2018-06-16 11:26 | NUR ---
NURSE NOTES: Patient started on Hemodialysis, access is right upper rm shunt, HD nurse at bedside.
--- NOTE | 2018-06-16 12:19 | Cardiology Progress Note ---
Assessment/Plan Assessment/Plan nstemi ? demand related Hypotension CHF, elevated troponin, history of endocarditis MR TR trop down trending tele reviewed personally seem sinus dialysis on going with vasopressor support echo noted will watch bp on present vasopressor dose she did receive 500 cc bolus of ivf will consider taper of pressor when radha stable after dialysis will repeat personnel monitor in icu abx for now cbc ad cmp noted prognosis guarded has sig edema but due to bp cannot tolerat sig uf Subjective Cardiovascular: Denies: chest pain, lightheadedness, palpitations Respiratory: Denies: shortness of breath Gastrointestinal/Abdominal: Denies: abdominal pain Genitourinary: Denies: burning Subjective tansfered to the icu due to hypotension dopamin has been started and she is on a dopain drip at this time gettign dialysis Objective Last 24 Hour Vital Signs Date Time Temp Pulse Resp B/P (MAP) Pulse Ox O2 Delivery O2 Flow Rate FiO2 06/16/18 11:00 67 19 100/53 (69) 99 06/16/18 10:30 64 15 95/48 (64) 98 06/16/18 10:00 66 13 92/49 (63) 99 06/16/18 08:00 Nasal Cannula 4.0 06/16/18 08:00 70 06/16/18 07:00 76 15 116/58 (77) 98 06/16/18 06:45 73 15 121/76 (91) 98 06/16/18 06:30 73 15 126/97 (107) 98 06/16/18 06:15 76 15 116/56 (76) 98 06/16/18 06:00 76 15 114/63 (80) 98 06/16/18 05:45 76 15 113/59 (77) 98 06/16/18 05:30 77 15 114/57 (76) 98 06/16/18 05:15 79 14 119/63 (81) 99 06/16/18 05:00 81 14 121/62 (81) 99 06/16/18 04:45 96 13 128/62 (84) 97 06/16/18 04:30 96 13 128/62 (84) 97 06/16/18 04:15 98 18 123/63 (83) 97 06/16/18 04:06 78/46 06/16/18 04:00 97.7 52 20 73/36 (48) 100 06/16/18 04:00 Venturi Mask 15.0 06/16/18 03:00 61 20 90/66 (74) 100 06/16/18 02:30 61 20 91/64 (73) 100 06/16/18 02:00 61 06/16/18 02:00 97.4 61 20 94/66 (75) 100 06/16/18 01:35 47 16 58/32 (41) 85 06/16/18 01:15 58 16 60/36 (44) 88 06/16/18 01:00 62 16 62/36 (45) 90 06/16/18 00:45 61 18 68/37 (47) 90 06/16/18 00:30 63 18 78/38 (51) 92 06/16/18 00:00 60 06/16/18 00:00 97.5 60 19 89/54 (66) 95 06/15/18 21:00 Room Air 06/15/18 20:00 98.2 66 19 105/50 (68) 95 06/15/18 20:00 64 06/15/18 16:02 98.8 67 20 100/55 (70) 94 06/15/18 16:00 61 General Appearance: no apparent distress, alert Neck: supple Cardiovascular: normal rate Respiratory/Chest: lungs clear Abdomen: normal bowel sounds, non tender, soft Extremities: moderate edema Intake and Output 06/15/18 06/16/18 19:00 07:00 Intake Total 895 ml 2 ml Balance 895 ml 2 ml Intake Oral 840 ml 0 ml IV Total 55 ml 2 ml # Bowel Movements 1 Laboratory Tests Test 06/16/18 04:00 White Blood Count 8.3 K/UL (4.8-10.8) Red Blood Count 3.94 M/UL (4.20-5.40) L Hemoglobin 10.8 G/DL (12.0-16.0) L Hematocrit 34.6 % (37.0-47.0) L Mean Corpuscular Volume 88 FL (80-99) Mean Corpuscular Hemoglobin 27.4 PG (27.0-31.0) Mean Corpuscular Hemoglobin Concent 31.2 G/DL (32.0-36.0) L Red Cell Distribution Width 16.3 % (11.6-14.8) H Platelet Count 122 K/UL (150-450) L Mean Platelet Volume 8.8 FL (6.5-10.1) Neutrophils (%) (Auto) 77.3 % (45.0-75.0) H Lymphocytes (%) (Auto) 14.3 % (20.0-45.0) L Monocytes (%) (Auto) 7.0 % (1.0-10.0) Eosinophils (%) (Auto) 0.9 % (0.0-3.0) Basophils (%) (Auto) 0.5 % (0.0-2.0) Sodium Level 132 MMOL/L (136-145) L Potassium Level 4.2 MMOL/L (3.5-5.1) Chloride Level 100 MMOL/L (98-107) Carbon Dioxide Level 23 MMOL/L (21-32) Anion Gap 9 mmol/L (5-15) Blood Urea Nitrogen 36 mg/dL (7-18) H Creatinine 4.1 MG/DL (0.55-1.30) H Estimat Glomerular Filtration Rate 13.1 mL/min (>60) Glucose Level 148 MG/DL (74-106) H Calcium Level 8.7 MG/DL (8.5-10.1) Phosphorus Level 4.1 MG/DL (2.5-4.9) Troponin I 0.322 ng/mL (0.000-0.056) Random Vancomycin Level 21.0 ug/mL Microbiology Date/Time Source Procedure Growth Status 06/14/18 10:50 Other Gram Stain - Final Resulted 06/14/18 10:50 Wound Culture - Preliminary Gram Negative Bacillus 1 Streptococcus Group B Resulted 06/14/18 10:50 Stool Clostridium difficile Toxin Assay - Final Complete Binh Nguyen MD Jun 16, 2018 12:19
--- NOTE | 2018-06-16 12:22 | NUR ---
NURSE NOTES: Dr. Nguyen in facility, saw and assessed patient. Updated on patient's status, currently on dopamine drip, relayed tropopnin results 0.322, per MD, keep patient on dopamine drip keep MAP greater than 60, a few hours after HD, if patient's BP is remains stable then may titrate down from dopamine. Order noted and carried out.
--- NOTE | 2018-06-16 14:00 | NUR ---
NURSE NOTES: Hemodialysis finished, 3 liters out. Patient with no complains at this time. Remains on nasal cannula 4 liters.
[2018-06-16] MEDS: Meropenem 500 MG in NS 55 ML IVPB SCH (14:03)
--- NOTE | 2018-06-16 16:00 | NUR ---
NURSE NOTES: Patient fed, ate 100% of meal. Aspiration precaution maintained. HOB elevated.
--- NOTE | 2018-06-16 18:30 | NUR ---
NURSE NOTES: Patient provided with perineal care. Noted with small, loose pasty BM. Incontinence rash noted on perineal area, skin is fragile. Repositioned.
--- NOTE | 2018-06-16 19:24 | NUR ---
HAND-OFF: Report given to CHAPIS Barrera.
--- NOTE | 2018-06-16 19:30 | NUR ---
NURSE NOTES: Received report from CHAPIS Fine. patient in bed resting no moaning no facial grimaces. om 3L O2 via N/C satting 100%. Right upper Arm AV shunt with positive bruit and thrill, No BP on Right arm. Right femoral TLC running dopamine at 1 mcg/kg/min, asymptomatic. Noted patient with edema on left upper arm Patient is oliguric. Left heel dressing intact and offloaded. Right AKA stump is free from complications or skin issues. Elevated left swollen leg with pillow. Bed locked and in low position. Bed alarm on. Instructed patient to use call light for assistance. Contact isolation maintained and observed. Will continue to monitor the patient.
[2018-06-16] MEDS: Dyna-Hex 2% Top Sol 2oz TOPIC SCH (20:24)
--- NOTE | 2018-06-16 21:00 | NUR ---
NURSE NOTES: CHG bath given tolerated well.
--- NOTE | 2018-06-16 23:00 | NUR ---
NURSE NOTES: patient in bed resting, no s/s of acute and cardiac distress noted. Continue on Dopamine drip 2mcg/kg/min BP 96/49 HR 66.
[2018-06-17] VITALS (85 sets, daily range): BP systolic 58–140; BP diastolic 39–92
--- NOTE | 2018-06-17 01:00 | NUR ---
NURSE NOTES: Bed bath given tolerated well. BP105/51. No s/s of hypo/hyperglycemia. All needs attended promptly.
--- NOTE | 2018-06-17 03:00 | NUR ---
NURSE NOTES: Bed bath given tolerated well. Ice chips given. BP 109/56.
--- NOTE | 2018-06-17 05:00 | NUR ---
NURSE NOTES: Patient sleeping comfortably. BP 94/50. No moaning no facial grimaces. Right Femoral TLC dressing changed.
[2018-06-17] MEDS: DOPamine 400mg/250ml 250 ML IV SCH (06:41)
--- NOTE | 2018-06-17 07:30 | NUR ---
NURSE NOTES: Received patient from CHAPIS Dueñas. Received patient in bed alert to self, and place. Patient follow commands, and verbal. Patient has 3 liter nasal cannula, 02 saturation 100%. Patients bilateral lung sounds are diminished. Patient is connected to the shelter monitor HR has been in the 60's. Patient abdomen is large,distended, soft and non tender, reddened lateral side of stomach, patient bowel sounds are normative, patient has a renal diet. Patient is oliguric. Patient is a hemodialysis patient. Patient 3+ edema noted on left leg, left arm and generalize swelling. Patient has a right AV shunt bruit and thrill noted, dressing is dry and intact. Patient has a right below the knee amputation, stump is free from complication no skin issues noted. Patient has a right femoral TLC symptomatic, patent running dopamine at 2mcg/kg/hr. Patient has a left heel wound, dressing is dry and intact, sacral and left ischium wound noted.
--- NOTE | 2018-06-17 07:30 | NUR ---
HAND-OFF: Report given to CHAPIS Gilbert.
--- NOTE | 2018-06-17 08:38 | Nephrology Progress Note ---
Assessment/Plan Plan Hypotension - R/O new sepsis - on IV Abx per ID. R/O medications induced - d/'ed all potential agents. AMS - multifactorial - r/o sepsis. R/O other etiologies. Cannot get neuro consult in this hospital. ESRD HD changed to MWF + additional run tomorrow. L heel ulcer - Podiatry following. 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 Heel Ulcer - local care. Cardiac Status reviewed with Dr. Daley. 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 Pt. not a candidate for MVR due to overall condition. May be a candidate for TVR if stable. Currently unstable. Subjective Subjective Transferred to ICU due to hypotesion, SBP's 60-80. On Dopamine drip @ 2 mcgm/Kg/Min. No new c/o. Wants to go home despite explanations! Objective Objective Last 24 Hour Vital Signs Date Time Temp Pulse Resp B/P (MAP) Pulse Ox O2 Delivery O2 Flow Rate FiO2 06/17/18 07:00 65 16 104/53 (70) 100 06/17/18 06:45 64 17 101/52 (68) 100 06/17/18 06:41 97/49 06/17/18 06:30 97.8 66 19 97/49 (65) 100 06/17/18 06:15 66 21 111/51 (71) 100 06/17/18 06:00 129/58 06/17/18 06:00 67 21 129/58 (81) 06/17/18 05:45 66 16 98/53 (68) 100 06/17/18 05:30 66 17 99/52 (68) 06/17/18 05:15 66 18 93/53 (66) 100 06/17/18 05:00 94/50 06/17/18 05:00 67 19 94/50 (65) 100 06/17/18 04:45 68 18 100/51 (67) 06/17/18 04:30 73 19 127/81 (96) 99 06/17/18 04:15 73 21 130/70 (90) 100 06/17/18 04:00 98.2 71 20 111/71 (84) 100 06/17/18 04:00 111/71 06/17/18 04:00 75 06/17/18 04:00 Nasal Cannula 4.0 06/17/18 03:45 71 16 111/58 (75) 100 06/17/18 03:30 71 16 108/57 (74) 100 06/17/18 03:15 71 15 105/56 (72) 100 06/17/18 03:00 71 16 109/56 (73) 100 06/17/18 03:00 109/56 06/17/18 02:45 73 15 107/55 (72) 100 06/17/18 02:30 74 21 112/72 (85) 100 06/17/18 02:15 74 21 112/72 (85) 100 06/17/18 02:00 110/55 06/17/18 02:00 73 19 110/55 (73) 100 06/17/18 01:45 74 18 117/57 (77) 100 06/17/18 01:30 77 21 116/53 (74) 96 06/17/18 01:15 79 20 105/51 (69) 79 06/17/18 01:00 81 19 105/51 (69) 92 06/17/18 01:00 77 17 103/49 (67) 76 06/17/18 00:45 78 19 117/55 (75) 95 06/17/18 00:30 76 19 117/56 (76) 91 06/17/18 00:15 67 22 124/58 (80) 99 06/17/18 00:00 98.6 61 16 77/39 (52) 98 06/17/18 00:00 79 06/17/18 00:00 Nasal Cannula 4.0 06/16/18 23:45 67 15 124/58 (80) 98 06/16/18 23:30 65 15 92/46 (61) 98 06/16/18 23:15 65 15 92/46 (61) 98 06/16/18 23:00 96/49 06/16/18 23:00 66 16 96/47 (63) 99 06/16/18 22:45 66 16 98/47 (64) 99 06/16/18 22:30 66 15 95/49 (64) 99 06/16/18 22:15 70 17 102/48 (66) 99 06/16/18 22:00 106 20 132/53 (79) 99 06/16/18 22:00 132/56 06/16/18 21:45 73 20 106/52 (70) 98 06/16/18 21:30 65 15 85/49 (61) 98 06/16/18 21:15 63 15 75/47 (56) 97 06/16/18 21:00 68 17 89/49 (62) 98 06/16/18 21:00 75/47 06/16/18 20:45 75 19 110/53 (72) 97 06/16/18 20:30 78 21 155/60 (91) 98 06/16/18 20:15 75 19 126/64 (84) 100 06/16/18 20:00 Nasal Cannula 4.0 06/16/18 20:00 127/55 06/16/18 20:00 71 06/16/18 20:00 73 15 127/55 (79) 100 06/16/18 19:45 67 15 117/56 (76) 99 06/16/18 19:35 61 15 80/51 (61) 99 06/16/18 19:30 61 14 79/44 (56) 99 06/16/18 19:15 64 18 97/49 (65) 98 06/16/18 19:00 64 17 103/55 (71) 99 06/16/18 19:00 103/55 06/16/18 18:30 70 19 103/55 (71) 96 06/16/18 18:00 69 22 104/52 (69) 100 06/16/18 18:00 104/52 06/16/18 17:28 62 17 102/48 (66) 100 06/16/18 17:00 98/50 06/16/18 17:00 64 16 98/50 (66) 99 06/16/18 16:45 69 19 112/58 (76) 99 06/16/18 16:30 64 16 132/56 (81) 99 06/16/18 16:15 69 19 112/57 (75) 99 06/16/18 16:00 Nasal Cannula 4.0 06/16/18 16:00 112/57 06/16/18 16:00 97.9 69 25 112/57 (75) 99 06/16/18 16:00 69 06/16/18 15:30 73 22 132/58 (82) 99 06/16/18 15:00 71 18 144/102 (116) 99 06/16/18 15:00 144/102 06/16/18 14:30 70 20 112/64 (80) 100 06/16/18 14:00 127/65 06/16/18 14:00 70 25 127/65 (85) 100 06/16/18 13:30 68 16 107/70 (82) 100 06/16/18 13:00 107/59 06/16/18 13:00 67 18 107/59 (75) 100 06/16/18 12:30 67 16 128/92 (104) 100 06/16/18 12:00 106/71 06/16/18 12:00 66 06/16/18 12:00 Nasal Cannula 4.0 06/16/18 12:00 97.6 67 18 106/71 (83) 100 06/16/18 11:30 65 17 103/57 (72) 100 06/16/18 11:00 100/53 06/16/18 11:00 67 19 100/53 (69) 99 06/16/18 10:30 64 15 95/48 (64) 98 06/16/18 10:00 92/49 06/16/18 10:00 66 13 92/49 (63) 99 06/16/18 09:00 115/60 Intake and Output 06/16/18 06/17/18 19:00 07:00 Intake Total 953.75 ml 177.5 ml Output Total 3000 ml Balance -2046.25 ml 177.5 ml Intake Oral 820 ml 110 ml IV Total 133.75 ml 67.5 ml Hemodialysis UF 3000 ml # Bowel Movements 1 2 Height (Feet): 5 Height (Inches): 6.00 Weight (Pounds): 230 Objective Blind Cv RR Lungs CTA Abd SNT. BS + E Rt AKA stump clean. Lt. deep heel ulcer. Neuro A+ O . @ times salusional Brenda Fuller MD Jun 17, 2018 08:38
[2018-06-17] MEDS: Aspirin Baby 81mg ORAL SCH (08:39)
[2018-06-17] MEDS: Multivitamin w/Minerals tab ORAL SCH (08:39)
[2018-06-17] MEDS: Heparin 5000 units/ml inj SUBQ SCH ×2 (08:41→20:51)
--- NOTE | 2018-06-17 09:30 | NUR ---
NURSE NOTES: Patient consumed all of her breakfast. Patient is yelling out that she wants to leave and go home. Patient is very confused, patient is constantly being reoriented. Patient is blind. Patient had 2 liters, 02 saturation 100%. No acute distress noted. Bed is locked and in the lowest position, bed alarm is. Call light is within reach. Patient instructed on how to use the call light. Will continue to monitor patient and follow plan of care.
[2018-06-17 10:10] LABS: BASOPHILS % (AUTO) 0.4 % (0.0-2.0); EOSINOPHILS % (AUTO) 2.6 % (0.0-3.0); HEMATOCRIT 35.1 % (37.0-47.0); HEMOGLOBIN 10.9 G/DL (12.0-16.0); LYMPHOCYTES % (AUTO) 13.9 % (20.0-45.0); MEAN CORPUSCULAR VOLUME 89 FL (80-99); MONOCYTES % (AUTO) 8.5 % (1.0-10.0); NEUTROPHILS % (AUTO) 74.5 % (45.0-75.0); PLATELET COUNT 134 K/UL (150-450); RED BLOOD COUNT 3.96 M/UL (4.20-5.40); RED CELL DISTRIBUTION WIDTH 16.3 % (11.6-14.8); WHITE BLOOD COUNT 6.9 K/UL (4.8-10.8)
[2018-06-17 10:17] LABS: ANION GAP 8 mmol/L (5-15); BLOOD UREA NITROGEN 33 mg/dL (7-18); CALCIUM 8.9 MG/DL (8.5-10.1); CARBON DIOXIDE 23 MMOL/L (21-32); CHLORIDE 101 MMOL/L (98-107); CREATININE 3.8 MG/DL (0.55-1.30); PHOSPHORUS 4.3 MG/DL (2.5-4.9); POTASSIUM 3.9 MMOL/L (3.5-5.1); SODIUM 132 MMOL/L (136-145)
[2018-06-17] MEDS ORDERED: LORazepam 1mg tab ORAL PRN (10:30)
--- NOTE | 2018-06-17 11:30 | NUR ---
NURSE NOTES: Patient repositioned, patient received oral care. Patient is now calm and sleeping after receiving Ativan. No change in condition. Bed is at 30 degrees, bed is locked and in the lowest positing. Will continue to monitor patient and follow plan of care.
--- NOTE | 2018-06-17 11:35 | Cardiology Progress Note ---
Assessment/Plan Assessment/Plan nstemi ? demand related Hypotension CHF, elevated troponin, history of endocarditis MR TR trop down trending still tele reviewed personally seem sinus echo noted will try to see able to taper pressor per rn failed over nite as develop hypotesnion (justin try very slow taper as discussed with rn) she did receive 500 cc bolus of ivf will repeat manager monitoring in icu abx contienu now cbc ad cmp note prognosis guarded has sig edema but due to bp cannot tolerat sig uf Subjective Cardiovascular: Denies: chest pain, lightheadedness Respiratory: Reports: shortness of breath Gastrointestinal/Abdominal: Denies: abdominal pain Genitourinary: Denies: burning Objective Last 24 Hour Vital Signs Date Time Temp Pulse Resp B/P (MAP) Pulse Ox O2 Delivery O2 Flow Rate FiO2 06/17/18 09:45 67 23 94/69 (77) 100 06/17/18 09:30 67 18 104/55 (71) 100 06/17/18 09:15 66 21 104/54 (71) 100 06/17/18 09:00 67 17 105/51 (69) 100 06/17/18 08:45 67 19 125/65 (85) 100 06/17/18 08:30 66 18 93/71 (78) 100 06/17/18 08:15 65 18 107/55 (72) 100 06/17/18 08:00 66 06/17/18 08:00 97.6 66 16 107/57 (74) 100 06/17/18 07:00 65 16 104/53 (70) 100 06/17/18 06:45 64 17 101/52 (68) 100 06/17/18 06:41 97/49 06/17/18 06:30 97.8 66 19 97/49 (65) 100 06/17/18 06:15 66 21 111/51 (71) 100 06/17/18 06:00 129/58 06/17/18 06:00 67 21 129/58 (81) 06/17/18 05:45 66 16 98/53 (68) 100 06/17/18 05:30 66 17 99/52 (68) 06/17/18 05:15 66 18 93/53 (66) 100 06/17/18 05:00 94/50 06/17/18 05:00 67 19 94/50 (65) 100 11/24/18 04:45 68 18 100/51 (67) 06/17/18 04:30 73 19 127/81 (96) 99 06/17/18 04:15 73 21 130/70 (90) 100 06/17/18 04:00 98.2 71 20 111/71 (84) 100 06/17/18 04:00 111/71 06/17/18 04:00 75 06/17/18 04:00 Nasal Cannula 4.0 06/17/18 03:45 71 16 111/58 (75) 100 06/17/18 03:30 71 16 108/57 (74) 100 06/17/18 03:15 71 15 105/56 (72) 100 06/17/18 03:00 71 16 109/56 (73) 100 06/17/18 03:00 109/56 06/17/18 02:45 73 15 107/55 (72) 100 06/17/18 02:30 74 21 112/72 (85) 100 06/17/18 02:15 74 21 112/72 (85) 100 06/17/18 02:00 110/55 06/17/18 02:00 73 19 110/55 (73) 100 06/17/18 01:45 74 18 117/57 (77) 100 06/17/18 01:30 77 21 116/53 (74) 96 06/17/18 01:15 79 20 105/51 (69) 79 06/17/18 01:00 81 19 105/51 (69) 92 06/17/18 01:00 77 17 103/49 (67) 76 06/17/18 00:45 78 19 117/55 (75) 95 06/17/18 00:30 76 19 117/56 (76) 91 06/17/18 00:15 67 22 124/58 (80) 99 06/17/18 00:00 98.6 61 16 77/39 (52) 98 06/17/18 00:00 79 06/17/18 00:00 Nasal Cannula 4.0 06/16/18 23:45 67 15 124/58 (80) 98 06/16/18 23:30 65 15 92/46 (61) 98 06/16/18 23:15 65 15 92/46 (61) 98 06/16/18 23:00 96/49 06/16/18 23:00 66 16 96/47 (63) 99 06/16/18 22:45 66 16 98/47 (64) 99 18 22:30 66 15 95/49 (64) 99 18 22:15 70 17 102/48 (66) 99 06/16/18 22:00 106 20 132/53 (79) 99 06/16/18 22:00 132/56 06/16/18 21:45 73 20 106/52 (70) 98 18 21:30 65 15 85/49 (61) 98 06/16/18 21:15 63 15 75/47 (56) 97 06/16/18 21:00 68 17 89/49 (62) 98 06/16/18 21:00 75/47 06/16/18 20:45 75 19 110/53 (72) 97 06/16/18 20:30 78 21 155/60 (91) 98 06/16/18 20:15 75 19 126/64 (84) 100 06/16/18 20:00 Nasal Cannula 4.0 06/16/18 20:00 127/55 06/16/18 20:00 71 06/16/18 20:00 73 15 127/55 (79) 100 06/16/18 19:45 67 15 117/56 (76) 99 06/16/18 19:35 61 15 80/51 (61) 99 06/16/18 19:30 61 14 79/44 (56) 99 06/16/18 19:15 64 18 97/49 (65) 98 06/16/18 19:00 64 17 103/55 (71) 99 06/16/18 19:00 103/55 06/16/18 18:30 70 19 103/55 (71) 96 06/16/18 18:00 69 22 104/52 (69) 100 06/16/18 18:00 104/52 06/16/18 17:28 62 17 102/48 (66) 100 06/16/18 17:00 98/50 06/16/18 17:00 64 16 98/50 (66) 99 06/16/18 16:45 69 19 112/58 (76) 99 06/16/18 16:30 64 16 132/56 (81) 99 06/16/18 16:15 69 19 112/57 (75) 99 06/16/18 16:00 Nasal Cannula 4.0 06/16/18 16:00 112/57 06/16/18 16:00 97.9 69 25 112/57 (75) 99 06/16/18 16:00 69 06/16/18 15:30 73 22 132/58 (82) 99 06/16/18 15:00 71 18 144/102 (116) 99 06/16/18 15:00 144/102 06/16/18 14:30 70 20 112/64 (80) 100 06/16/18 14:00 127/65 06/16/18 14:00 70 25 127/65 (85) 100 06/16/18 13:30 68 16 107/70 (82) 100 06/16/18 13:00 107/59 06/16/18 13:00 67 18 107/59 (75) 100 06/16/18 12:30 67 16 128/92 (104) 100 06/16/18 12:00 106/71 06/16/18 12:00 66 06/16/18 12:00 Nasal Cannula 4.0 06/16/18 12:00 97.6 67 18 106/71 (83) 100 General Appearance: alert Neck: supple, JVD Cardiovascular: normal rate Respiratory/Chest: lungs clear Abdomen: normal bowel sounds, non tender, soft Extremities: moderate edema Intake and Output 06/16/18 06/17/18 19:00 07:00 Intake Total 953.75 ml 177.5 ml Output Total 3000 ml Balance -2046.25 ml 177.5 ml Intake Oral 820 ml 110 ml IV Total 133.75 ml 67.5 ml Hemodialysis UF 3000 ml # Bowel Movements 1 2 Laboratory Tests Test 06/17/18 09:40 White Blood Count 6.9 K/UL (4.8-10.8) Red Blood Count 3.96 M/UL (4.20-5.40) L Hemoglobin 10.9 G/DL (12.0-16.0) L Hematocrit 35.1 % (37.0-47.0) L Mean Corpuscular Volume 89 FL (80-99) Mean Corpuscular Hemoglobin 27.5 PG (27.0-31.0) Mean Corpuscular Hemoglobin Concent 31.0 G/DL (32.0-36.0) L Red Cell Distribution Width 16.3 % (11.6-14.8) H Platelet Count 134 K/UL (150-450) L Mean Platelet Volume 7.8 FL (6.5-10.1) Neutrophils (%) (Auto) 74.5 % (45.0-75.0) Lymphocytes (%) (Auto) 13.9 % (20.0-45.0) L Monocytes (%) (Auto) 8.5 % (1.0-10.0) Eosinophils (%) (Auto) 2.6 % (0.0-3.0) Basophils (%) (Auto) 0.4 % (0.0-2.0) Sodium Level 132 MMOL/L (136-145) L Potassium Level 3.9 MMOL/L (3.5-5.1) Chloride Level 101 MMOL/L (98-107) Carbon Dioxide Level 23 MMOL/L (21-32) Anion Gap 8 mmol/L (5-15) Blood Urea Nitrogen 33 mg/dL (7-18) H Creatinine 3.8 MG/DL (0.55-1.30) H Estimat Glomerular Filtration Rate 14.2 mL/min (>60) Glucose Level 188 MG/DL (74-106) H Calcium Level 8.9 MG/DL (8.5-10.1) Phosphorus Level 4.3 MG/DL (2.5-4.9) Magnesium Level 2.0 MG/DL (1.8-2.4) Troponin I 0.247 ng/mL (0.000-0.056) Binh Nguyen MD Jun 17, 2018 11:35
--- NOTE | 2018-06-17 13:30 | NUR ---
NURSE NOTES: Patient repositioned, patient is resting in bed, no change condition. Head of bed is at 30 degrees, bed is locked and in the lowest position, bilateral arms are elevated, left leg is elevated. Will continue to monitor patient and follow plan of care.
--- NOTE | 2018-06-17 14:00 | NUR ---
NURSE NOTES: Patient received mattress p200. Will continue to monitor patient and follow plan of care.
--- NOTE | 2018-06-17 14:13 | NUR ---
Social Work This SW met with patient, currently in ICU who appears confused, yelling out for the nurse. This SW also spoke with son, Teja ([phone]) who confirmed patient is full code, full treatment (copy of POLST in chart signed by patient). Son explains daughter, Myrtle Horne ([phone]) is the primary contact/decision maker for patient (patient does not have an Advance Directive). Patient is from [facility] and requires 24 hour fdc care. Son explained family are planning for patient to transfer back to SNF when medically cleared. Pending progress at this time.
[2018-06-17] MEDS: Meropenem 500 MG in NS 55 ML IVPB SCH (14:42)
--- NOTE | 2018-06-17 15:30 | NUR ---
NURSE NOTES: Patient repositioned, patient received oral care with lemon swabs. Patient consumed 100% of her lunch. patient is on 3 liter of oxygen nasal cannula, 02 saturation 100%. No acute distress noted. No change in condition. Patient is resting in bed.
--- NOTE | 2018-06-17 17:30 | NUR ---
NURSE NOTES: patient repositioned, patient consumed 100% of dinner. patient is still very confused. Patient has a moderate amount of soft brown stool. Patient is clean and resting in bed. Bed is locked and in the lowest position, bed alarm is on. Will continue to monitor patient and follow plan of care.
--- NOTE | 2018-06-17 19:15 | NUR ---
HAND-OFF: Report given to CHAPIS Moreno. No change in condition.
--- NOTE | 2018-06-17 19:17 | Podiatric Progress Note ---
Assessment/Plan Patient Evita Jorge is a 72 year old female who was admitted on Jun 13, 2018 at 01: 43 with Assessment/Plan A/ 1) DM foot ulcer left heel 2) Osteomyelitis left calcaneus 3) DM 4) PAD 5) ESRD 6) Right BKA P/ 1) No acute signs of infection noted. Cont wound care with Santyl daily 2) MRI left ankle without contrast - chronic osteo. Abx per ID 3) Cont off loading boot 4) Will follow Subjective Allergies: Coded Allergies: BENAZEPRIL (Verified Allergy, Unknown, 06/12/18) CODEINE (Verified Allergy, Unknown, 06/12/18) INSULIN ASPART (Verified Allergy, Unknown, 06/12/18) INSULIN DETEMIR (Verified Allergy, Unknown, 06/12/18) OPIOIDS - MORPHINE ANALOGUES (Verified Allergy, Unknown, 06/12/18) Subjective Patient is verbal but drowsy. Objective Exam Last 24 Hour Vital Signs Date Time Temp Pulse Resp B/P (MAP) Pulse Ox O2 Delivery O2 Flow Rate FiO2 06/17/18 16:41 87/45 06/17/18 16:00 Nasal Cannula 4.0 06/17/18 16:00 66 06/17/18 15:41 99/58 06/17/18 14:41 93/59 06/17/18 13:41 105/54 06/17/18 12:41 83/56 06/17/18 12:00 66 06/17/18 12:00 Nasal Cannula 4.0 06/17/18 11:41 100/52 06/17/18 10:41 102/51 06/17/18 09:45 67 23 94/69 (77) 100 06/17/18 09:41 94/69 06/17/18 09:30 67 18 104/55 (71) 100 06/17/18 09:15 66 21 104/54 (71) 100 06/17/18 09:00 67 17 105/51 (69) 100 06/17/18 08:45 67 19 125/65 (85) 100 06/17/18 08:41 93/71 06/17/18 08:30 66 18 93/71 (78) 100 06/17/18 08:15 65 18 107/55 (72) 100 06/17/18 08:00 66 06/17/18 08:00 97.6 66 16 107/57 (74) 100 06/17/18 08:00 Nasal Cannula 4.0 06/17/18 07:41 107/56 06/17/18 07:00 65 16 104/53 (70) 100 06/17/18 06:45 64 17 101/52 (68) 100 06/17/18 06:41 97/49 06/17/18 06:30 97.8 66 19 97/49 (65) 100 06/17/18 06:15 66 21 111/51 (71) 100 06/17/18 06:00 129/58 06/17/18 06:00 67 21 129/58 (81) 06/17/18 05:45 66 16 98/53 (68) 100 06/17/18 05:30 66 17 99/52 (68) 06/17/18 05:15 66 18 93/53 (66) 100 06/17/18 05:00 94/50 06/17/18 05:00 67 19 94/50 (65) 100 06/17/18 04:45 68 18 100/51 (67) 06/17/18 04:30 73 19 127/81 (96) 99 06/17/18 04:15 73 21 130/70 (90) 100 06/17/18 04:00 98.2 71 20 111/71 (84) 100 06/17/18 04:00 111/71 06/17/18 04:00 75 06/17/18 04:00 Nasal Cannula 4.0 06/17/18 03:45 71 16 111/58 (75) 100 06/17/18 03:30 71 16 108/57 (74) 100 06/17/18 03:15 71 15 105/56 (72) 100 06/17/18 03:00 71 16 109/56 (73) 100 06/17/18 03:00 109/56 06/17/18 02:45 73 15 107/55 (72) 100 06/17/18 02:30 74 21 112/72 (85) 100 06/17/18 02:15 74 21 112/72 (85) 100 06/17/18 02:00 110/55 06/17/18 02:00 73 19 110/55 (73) 100 06/17/18 01:45 74 18 117/57 (77) 100 06/17/18 01:30 77 21 116/53 (74) 96 06/17/18 01:15 79 20 105/51 (69) 79 06/17/18 01:00 81 19 105/51 (69) 92 06/17/18 01:00 77 17 103/49 (67) 76 06/17/18 00:45 78 19 117/55 (75) 95 06/17/18 00:30 76 19 117/56 (76) 91 06/17/18 00:15 67 22 124/58 (80) 99 06/17/18 00:00 98.6 61 16 77/39 (52) 98 06/17/18 00:00 79 06/17/18 00:00 Nasal Cannula 4.0 06/16/18 23:45 67 15 124/58 (80) 98 06/16/18 23:30 65 15 92/46 (61) 98 06/16/18 23:15 65 15 92/46 (61) 98 06/16/18 23:00 96/49 06/16/18 23:00 66 16 96/47 (63) 99 06/16/18 22:45 66 16 98/47 (64) 99 06/16/18 22:30 66 15 95/49 (64) 99 06/16/18 22:15 70 17 102/48 (66) 99 06/16/18 22:00 106 20 132/53 (79) 99 18 22:00 132/56 06/16/18 21:45 73 20 106/52 (70) 98 06/16/18 21:30 65 15 85/49 (61) 98 06/16/18 21:15 63 15 75/47 (56) 97 18 21:00 68 17 89/49 (62) 98 18 21:00 75/47 06/16/18 20:45 75 19 110/53 (72) 97 18 20:30 78 21 155/60 (91) 98 06/16/18 20:15 75 19 126/64 (84) 100 06/16/18 20:00 Nasal Cannula 4.0 06/16/18 20:00 127/55 06/16/18 20:00 71 06/16/18 20:00 73 15 127/55 (79) 100 06/16/18 19:45 67 15 117/56 (76) 99 06/16/18 19:35 61 15 80/51 (61) 99 06/16/18 19:30 61 14 79/44 (56) 99 Laboratory Tests Test 06/17/18 09:40 White Blood Count 6.9 K/UL (4.8-10.8) Red Blood Count 3.96 M/UL (4.20-5.40) L Hemoglobin 10.9 G/DL (12.0-16.0) L Hematocrit 35.1 % (37.0-47.0) L Mean Corpuscular Volume 89 FL (80-99) Mean Corpuscular Hemoglobin 27.5 PG (27.0-31.0) Mean Corpuscular Hemoglobin Concent 31.0 G/DL (32.0-36.0) L Red Cell Distribution Width 16.3 % (11.6-14.8) H Platelet Count 134 K/UL (150-450) L Mean Platelet Volume 7.8 FL (6.5-10.1) Neutrophils (%) (Auto) 74.5 % (45.0-75.0) Lymphocytes (%) (Auto) 13.9 % (20.0-45.0) L Monocytes (%) (Auto) 8.5 % (1.0-10.0) Eosinophils (%) (Auto) 2.6 % (0.0-3.0) Basophils (%) (Auto) 0.4 % (0.0-2.0) Sodium Level 132 MMOL/L (136-145) L Potassium Level 3.9 MMOL/L (3.5-5.1) Chloride Level 101 MMOL/L (98-107) Carbon Dioxide Level 23 MMOL/L (21-32) Anion Gap 8 mmol/L (5-15) Blood Urea Nitrogen 33 mg/dL (7-18) H Creatinine 3.8 MG/DL (0.55-1.30) H Estimat Glomerular Filtration Rate 14.2 mL/min (>60) Glucose Level 188 MG/DL (74-106) H Calcium Level 8.9 MG/DL (8.5-10.1) Phosphorus Level 4.3 MG/DL (2.5-4.9) Magnesium Level 2.0 MG/DL (1.8-2.4) Troponin I 0.247 ng/mL (0.000-0.056) Microbiology Date/Time Source Procedure Growth Status 06/13/18 00:30 Blood Blood Culture - Preliminary NO GROWTH AFTER 4 DAYS Resulted 06/14/18 10:50 Other Gram Stain - Final Resulted 06/14/18 10:50 Wound Culture - Preliminary Gram Negative Isaias Strep Agalactiae Group B Resulted 06/13/18 03:00 Nasal Nares MRSA Culture - Final NO METHICILLIN RESISTANT STAPH AUREUS... Complete 06/14/18 10:50 Stool Clostridium difficile Toxin Assay - Final Complete 06/13/18 03:00 Rectum VRE Culture - Final Enterococcus Faecium - Vre Complete Dermatological Dermatological Narrative Heel wound is stable, no signs of acute infection Wound is mainly granular Hany Brown DPM Jun 17, 2018 19:17
--- NOTE | 2018-06-17 19:30 | NUR ---
NURSE NOTES: Received pt from CHAPIS Rodas. Pt is oriented to person and place, confused at times. Calm and cooperative at this time and denies pain or SOB. Pt is currently on Dopamine drip 1.6mcg/kg/min with BP 100/56 MAP of 67. Breathing is even and unlabored. She is on 3LNC, SPO2 100%. Abdomen is round, distended and soft. AV shunt noted on right upper arm and is positive for thrill and bruit. Pt is on a P200 mattress, left heel is off loaded and dressing is c/d/i. Right femoral TLC dressing is clean and intact, lumens flushed with good blood return. Last dressing change done at 06/17/18. No s/sx of hypo or hyperglycemia noted. Pt has pending hemodialysis tomorrow. Bed locked, alarmed and in lowest position. Will continue plan of care.
--- NOTE | 2018-06-17 20:03 | NUR ---
NURSE NOTES: MD is aware of patient's allergy to insulin aspart and detemir. Continue low dose NovoLog with sliding scale per MD. SAVANAH pharmacistGabino.
--- NOTE | 2018-06-17 20:05 | NUR ---
NURSE NOTES: No AM labs per PMD
[2018-06-17] MEDS: Dyna-Hex 2% Top Sol 2oz TOPIC SCH (20:47)
[2018-06-17] MEDS: NovoLOG Insulin Flexpen SUBQ SCH (20:49)
[2018-06-17] MEDS ORDERED: NovoLOG Insulin Flexpen SUBQ SCH (21:00)
--- NOTE | 2018-06-17 22:15 | NUR ---
NURSE NOTES: Dopamine at 1.6mcg/kg/min. BP 99/46 MAP 60. CHG bath given, tolerated well.
[2018-06-18] VITALS (51 sets, daily range): BP systolic 63–129; BP diastolic 40–90
--- NOTE | 2018-06-18 00:02 | NUR ---
NURSE NOTES: No rate change made for Dopamine drip. BP 108/58 MAP 69. Frequent visual checks continued.
--- NOTE | 2018-06-18 03:15 | NUR ---
NURSE NOTES: Continue Dopamine on 6mcg/kg/min, BP 95/54 MAP 68. Patient is observed asleep in bed but able to arouse by voice.
--- NOTE | 2018-06-18 05:23 | NUR ---
NURSE NOTES: Bed bath given, complete linen and gown changed. Tolerated well. BP 90/45 MAP 56. No s/sx of distress noted.
[2018-06-18] MEDS ORDERED: Heparin Sod 1000 units/ml 10ml IV SCH (06:00)
--- NOTE | 2018-06-18 06:00 | NUR ---
NURSE NOTES: Notified central supply regarding p200 mattress defect. Mattress does not stay inflated.
[2018-06-18] MEDS: NovoLOG Insulin Flexpen SUBQ SCH ×4 (06:39→20:30)
--- NOTE | 2018-06-18 07:54 | NUR ---
NURSE NOTES: Report given by lore
--- NOTE | 2018-06-18 07:55 | NUR ---
NURSE NOTES: Patient is resting in bed, awake alert and aware of place she is at. ON a p200 mattress that appears to be mal functioning. Is able to verbalize her wants and needs. On nasal cannula, has a dopamine drip running. MD michaels has ordered MAP of 55 and over. Patient has a TLC on the right femoral leg. WIll continue to monitor patient . And atttempt to titrate dopamine drip.
--- NOTE | 2018-06-18 08:16 | Nephrology Progress Note ---
Assessment/Plan Plan Hypotension - R/O new sepsis - on IV Abx per ID. DC'ed all meds with potential to lower BP. L heel ulcer - Podiatry following. 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 Heel Ulcer - local care. Cardiac Status reviewed with Dr. Daley. 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 Pt. not a candidate for MVR due to overall condition. May be a candidate for TVR if stable. Currently unstable. Trying to taper off Dopamine. HD tonight. Subjective Subjective In ICU due to hypotesion. Still on dopamine drip. Trying to taper off. On Dopamine drip @ 2 mcgm/Kg/Min. No new c/o. Wants to go home despite explanations!? Objective Objective Last 24 Hour Vital Signs Date Time Temp Pulse Resp B/P (MAP) Pulse Ox O2 Delivery O2 Flow Rate FiO2 06/18/18 07:30 97.6 64 18 85/53 (64) 100 06/18/18 07:00 64 18 100/56 (71) 100 06/18/18 06:30 66 16 96/52 (67) 100 06/18/18 06:00 65 14 87/48 (61) 100 06/18/18 05:30 65 18 93/50 (64) 100 06/18/18 05:00 65 16 99/50 (66) 100 06/18/18 05:00 100/33 06/18/18 04:30 66 18 98/49 (65) 100 06/18/18 04:00 66 06/18/18 04:00 Nasal Cannula 3.0 06/18/18 04:00 101/51 06/18/18 04:00 97.4 66 18 102/55 (71) 100 06/18/18 03:30 68 15 129/61 (83) 100 06/18/18 03:00 63 16 119/55 (76) 100 06/18/18 03:00 93/54 06/18/18 02:30 63 16 95/54 (68) 100 06/18/18 02:00 93/54 06/18/18 02:00 62 14 93/54 (67) 100 06/18/18 01:30 64 14 92/49 (63) 100 06/18/18 01:00 95/52 11/25/18 01:00 63 13 95/52 (66) 100 06/18/18 00:30 64 18 98/51 (67) 100 06/18/18 00:00 97.4 67 16 119/90 (100) 100 06/18/18 00:00 66 06/18/18 00:00 119/90 06/18/18 00:00 Nasal Cannula 3.0 06/17/18 23:30 66 16 99/46 (63) 100 06/17/18 23:00 66 21 93 06/17/18 23:00 107/50 06/17/18 22:30 65 16 100/52 (68) 98 06/17/18 22:00 86/49 06/17/18 21:30 66 16 99/46 (63) 100 06/17/18 21:15 66 19 100/46 (64) 100 06/17/18 21:00 64 21 99/46 (63) 100 06/17/18 21:00 100/46 06/17/18 20:53 67 19 100/46 (64) 100 06/17/18 20:45 65 20 104/46 (65) 100 06/17/18 20:30 64 19 107/52 (70) 100 06/17/18 20:15 64 20 99/71 (80) 100 06/17/18 20:00 Nasal Cannula 3.0 06/17/18 20:00 62 16 84/45 (58) 100 06/17/18 20:00 99/71 06/17/18 20:00 64 06/17/18 19:45 65 20 97/51 (66) 100 06/17/18 19:40 66 19 97/52 (67) 100 06/17/18 19:30 66 14 90/70 (77) 100 06/17/18 19:15 65 18 100/56 (71) 100 06/17/18 19:00 98.7 66 18 100/56 (71) 100 06/17/18 19:00 100/56 06/17/18 18:41 95/50 18 17:45 66 19 99/41 (60) 100 06/17/18 17:41 99/41 06/17/18 17:30 65 19 116/92 (100) 96 06/17/18 17:15 63 21 92/50 (64) 100 06/17/18 17:00 65 23 91/50 (64) 100 06/17/18 16:45 67 24 87/45 (59) 100 06/17/18 16:41 87/45 06/17/18 16:30 70 20 106/59 (75) 100 06/17/18 16:15 72 21 99/56 (70) 100 06/17/18 16:00 Nasal Cannula 4.0 06/17/18 16:00 69 19 92/57 (69) 100 06/17/18 16:00 66 06/17/18 15:45 67 22 99/58 (72) 100 06/17/18 15:41 99/58 06/17/18 15:30 66 20 108/55 (72) 100 06/17/18 15:15 66 20 107/54 (71) 100 06/17/18 15:00 66 17 140/53 (82) 99 06/17/18 14:45 65 18 93/59 (70) 98 06/17/18 14:41 93/59 06/17/18 14:30 66 107/64 (78) 100 06/17/18 14:15 66 18 58/41 (47) 100 06/17/18 14:00 67 16 115/54 (74) 100 06/17/18 13:45 66 19 105/54 (71) 100 06/17/18 13:41 105/54 06/17/18 13:30 63 19 102/55 (71) 100 06/17/18 13:15 63 17 89/42 (58) 100 06/17/18 13:00 64 17 89/43 (58) 100 06/17/18 12:45 64 18 106/52 (70) 100 06/17/18 12:41 83/56 06/17/18 12:37 64 18 103/84 (90) 100 06/17/18 12:30 63 15 83/56 (65) 100 06/17/18 12:15 64 17 96/45 (62) 100 06/17/18 12:00 65 20 107/52 (70) 100 06/17/18 12:00 66 06/17/18 12:00 Nasal Cannula 4.0 06/17/18 11:45 64 14 100/52 (68) 100 06/17/18 11:41 100/52 06/17/18 11:30 66 19 112/57 (75) 100 06/17/18 11:15 65 16 107/55 (72) 100 06/17/18 11:00 64 15 98/53 (68) 100 06/17/18 10:45 65 20 102/51 (68) 100 06/17/18 10:41 102/51 06/17/18 10:30 63 14 90/49 (63) 100 06/17/18 10:15 64 15 97/53 (68) 100 06/17/18 10:00 66 21 92/52 (65) 100 06/17/18 09:45 67 23 94/69 (77) 100 06/17/18 09:41 94/69 06/17/18 09:30 67 18 104/55 (71) 100 06/17/18 09:15 66 21 104/54 (71) 100 06/17/18 09:00 67 17 105/51 (69) 100 06/17/18 08:45 67 19 125/65 (85) 100 06/17/18 08:41 93/71 06/17/18 08:30 66 18 93/71 (78) 100 06/17/18 08:15 65 18 107/55 (72) 100 Intake and Output 06/17/18 06/18/18 19:00 07:00 Intake Total 285.0 ml 90 ml Balance 285.0 ml 90 ml Intake Oral 100 ml 30 ml IV Total 185.0 ml 60 ml # Bowel Movements 1 2 Laboratory Tests 06/17/18 09:40: White Blood Count 6.9, Red Blood Count 3.96L, Hemoglobin 10.9L, Hematocrit 35.1L , Mean Corpuscular Volume 89, Mean Corpuscular Hemoglobin 27.5, Mean Corpuscular Hemoglobin Concent 31.0L, Red Cell Distribution Width 16.3H, Platelet Count 134L, Mean Platelet Volume 7.8, Neutrophils (%) (Auto) 74.5, Lymphocytes (%) (Auto) 13.9L, Monocytes (%) (Auto) 8.5, Eosinophils (%) (Auto) 2.6, Basophils (%) (Auto) 0.4, Sodium Level 132L, Potassium Level 3.9, Chloride Level 101, Carbon Dioxide Level 23, Anion Gap 8, Blood Urea Nitrogen 33H, Creatinine 3.8H, Estimat Glomerular Filtration Rate 14.2, Glucose Level 188H, Calcium Level 8.9, Phosphorus Level 4.3, Magnesium Level 2.0, Troponin I 0.247H Height (Feet): 5 Height (Inches): 6.00 Weight (Pounds): 216 Objective Blind Cv RR Lungs CTA Abd SNT. BS + E Rt AKA stump clean. Lt. deep heel ulcer. Neuro A+ O . @ times delusional Brenda Fuller MD Jun 18, 2018 08:16
[2018-06-18] MEDS ORDERED: Tubing IV Secondary IV ONE (09:45)
[2018-06-18] MEDS: Aspirin Baby 81mg ORAL SCH (10:23)
[2018-06-18] MEDS: Multivitamin w/Minerals tab ORAL SCH (10:23)
[2018-06-18] MEDS: Heparin 5000 units/ml inj SUBQ SCH ×2 (10:25→20:29)
--- NOTE | 2018-06-18 10:28 | Cardiology Progress Note ---
Assessment/Plan Assessment/Plan nstemi ? demand related Hypotension CHF, elevated troponin, history of endocarditis MR TR trop down trending still tele reviewed personally seem sinus echo noted DA just turned off will see if tolerates she did receive 500 cc bolus of ivf priro to trasfer to icu will repeat ekg noted monitor in icu abx contienu now prognosis guarded has sig edema but due to bp cannot tolerat sig uf Subjective Cardiovascular: Denies: chest pain, lightheadedness, palpitations Respiratory: Denies: shortness of breath Gastrointestinal/Abdominal: Denies: abdominal pain Genitourinary: Denies: burning Objective Last 24 Hour Vital Signs Date Time Temp Pulse Resp B/P (MAP) Pulse Ox O2 Delivery O2 Flow Rate FiO2 06/18/18 07:30 97.6 64 18 85/53 (64) 100 06/18/18 07:00 64 18 100/56 (71) 100 06/18/18 06:30 66 16 96/52 (67) 100 06/18/18 06:00 65 14 87/48 (61) 100 06/18/18 05:30 65 18 93/50 (64) 100 06/18/18 05:00 65 16 99/50 (66) 100 06/18/18 05:00 100/33 06/18/18 04:30 66 18 98/49 (65) 100 06/18/18 04:00 66 06/18/18 04:00 Nasal Cannula 3.0 06/18/18 04:00 101/51 06/18/18 04:00 97.4 66 18 102/55 (71) 100 06/18/18 03:30 68 15 129/61 (83) 100 06/18/18 03:00 63 16 119/55 (76) 100 06/18/18 03:00 93/54 06/18/18 02:30 63 16 95/54 (68) 100 06/18/18 02:00 93/54 06/18/18 02:00 62 14 93/54 (67) 100 06/18/18 01:30 64 14 92/49 (63) 100 06/18/18 01:00 95/52 06/18/18 01:00 63 13 95/52 (66) 100 06/18/18 00:30 64 18 98/51 (67) 100 06/18/18 00:00 97.4 67 16 119/90 (100) 100 06/18/18 00:00 66 06/18/18 00:00 119/90 06/18/18 00:00 Nasal Cannula 3.0 06/17/18 23:30 66 16 99/46 (63) 100 06/17/18 23:00 66 21 93 06/17/18 23:00 107/50 06/17/18 22:30 65 16 100/52 (68) 98 06/17/18 22:00 86/49 06/17/18 21:30 66 16 99/46 (63) 100 06/17/18 21:15 66 19 100/46 (64) 100 06/17/18 21:00 64 21 99/46 (63) 100 06/17/18 21:00 100/46 06/17/18 20:53 67 19 100/46 (64) 100 06/17/18 20:45 65 20 104/46 (65) 100 06/17/18 20:30 64 19 107/52 (70) 100 06/17/18 20:15 64 20 99/71 (80) 100 06/17/18 20:00 Nasal Cannula 3.0 06/17/18 20:00 62 16 84/45 (58) 100 06/17/18 20:00 99/71 06/17/18 20:00 64 06/17/18 19:45 65 20 97/51 (66) 100 06/17/18 19:40 66 19 97/52 (67) 100 06/17/18 19:30 66 14 90/70 (77) 100 06/17/18 19:15 65 18 100/56 (71) 100 06/17/18 19:00 98.7 66 18 100/56 (71) 100 06/17/18 19:00 100/56 06/17/18 18:41 95/50 06/17/18 17:45 66 19 99/41 (60) 100 06/17/18 17:41 99/41 06/17/18 17:30 65 19 116/92 (100) 96 06/17/18 17:15 63 21 92/50 (64) 100 06/17/18 17:00 65 23 91/50 (64) 100 06/17/18 16:45 67 24 87/45 (59) 100 06/17/18 16:41 87/45 06/17/18 16:30 70 20 106/59 (75) 100 06/17/18 16:15 72 21 99/56 (70) 100 06/17/18 16:00 Nasal Cannula 4.0 06/17/18 16:00 69 19 92/57 (69) 100 06/17/18 16:00 66 06/17/18 15:45 67 22 99/58 (72) 100 06/17/18 15:41 99/58 06/17/18 15:30 66 20 108/55 (72) 100 06/17/18 15:15 66 20 107/54 (71) 100 06/17/18 15:00 66 17 140/53 (82) 99 06/17/18 14:45 65 18 93/59 (70) 98 06/17/18 14:41 93/59 06/17/18 14:30 66 107/64 (78) 100 06/17/18 14:15 66 18 58/41 (47) 100 06/17/18 14:00 67 16 115/54 (74) 100 06/17/18 13:45 66 19 105/54 (71) 100 06/17/18 13:41 105/54 06/17/18 13:30 63 19 102/55 (71) 100 06/17/18 13:15 63 17 89/42 (58) 100 06/17/18 13:00 64 17 89/43 (58) 100 06/17/18 12:45 64 18 106/52 (70) 100 06/17/18 12:41 83/56 06/17/18 12:37 64 18 103/84 (90) 100 06/17/18 12:30 63 15 83/56 (65) 100 06/17/18 12:15 64 17 96/45 (62) 100 06/17/18 12:00 65 20 107/52 (70) 100 06/17/18 12:00 66 06/17/18 12:00 Nasal Cannula 4.0 06/17/18 11:45 64 14 100/52 (68) 100 06/17/18 11:41 100/52 06/17/18 11:30 66 19 112/57 (75) 100 06/17/18 11:15 65 16 107/55 (72) 100 06/17/18 11:00 64 15 98/53 (68) 100 06/17/18 10:45 65 20 102/51 (68) 100 06/17/18 10:41 102/51 06/17/18 10:30 63 14 90/49 (63) 100 General Appearance: no apparent distress, alert Neck: supple Cardiovascular: normal rate Respiratory/Chest: lungs clear Abdomen: normal bowel sounds, non tender, soft Extremities: moderate edema Intake and Output 06/17/18 06/18/18 19:00 07:00 Intake Total 285.0 ml 90 ml Balance 285.0 ml 90 ml Intake Oral 100 ml 30 ml IV Total 185.0 ml 60 ml # Bowel Movements 1 2 Binh Nguyen MD Jun 18, 2018 10:28
--- NOTE | 2018-06-18 12:44 | Infectious Diseases Prog Note ---
Assessment/Plan Assessment/Plan A; Calcaneal osteomyelitis DM ESRD on HD AMS PVD Diabetic retinopathy Mitral regurgitation Elevated troponin Hypotension P; continue Vancomycin & Meropenem Subjective ROS Limited/Unobtainable: Yes Constitutional: Reports: other - feels cold Respiratory: Reports: no symptoms Cardiovascular: Reports: no symptoms, other - hypotensive in ICU Gastrointestinal/Abdominal: Reports: no symptoms Genitourinary: Reports: no symptoms Allergies: Coded Allergies: BENAZEPRIL (Verified Allergy, Unknown, 06/12/18) CODEINE (Verified Allergy, Unknown, 06/12/18) INSULIN ASPART (Verified Allergy, Unknown, 06/12/18) INSULIN DETEMIR (Verified Allergy, Unknown, 06/12/18) OPIOIDS - MORPHINE ANALOGUES (Verified Allergy, Unknown, 06/12/18) Objective Vital Signs Last 24 Hour Vital Signs Date Time Temp Pulse Resp B/P (MAP) Pulse Ox O2 Delivery O2 Flow Rate FiO2 06/18/18 11:47 Nasal Cannula 3.0 06/18/18 11:00 59 16 94/56 (69) 100 06/18/18 11:00 59 20 89/47 (61) 100 06/18/18 10:30 59 18 83/54 (64) 100 06/18/18 10:00 60 16 89/45 (60) 100 06/18/18 09:30 62 17 74/47 (56) 99 06/18/18 09:00 65 16 97/58 (71) 100 06/18/18 08:30 64 19 95/62 (73) 100 06/18/18 08:00 65 14 95/55 (68) 100 06/18/18 07:30 97.6 64 18 85/53 (64) 100 06/18/18 07:00 64 18 100/56 (71) 100 06/18/18 06:30 66 16 96/52 (67) 100 06/18/18 06:00 65 14 87/48 (61) 100 06/18/18 05:30 65 18 93/50 (64) 100 06/18/18 05:00 65 16 99/50 (66) 100 06/18/18 05:00 100/33 06/18/18 04:30 66 18 98/49 (65) 100 06/18/18 04:00 66 06/18/18 04:00 Nasal Cannula 3.0 06/18/18 04:00 101/51 06/18/18 04:00 97.4 66 18 102/55 (71) 100 06/18/18 03:30 68 15 129/61 (83) 100 06/18/18 03:00 63 16 119/55 (76) 100 06/18/18 03:00 93/54 06/18/18 02:30 63 16 95/54 (68) 100 06/18/18 02:00 93/54 06/18/18 02:00 62 14 93/54 (67) 100 06/18/18 01:30 64 14 92/49 (63) 100 06/18/18 01:00 95/52 06/18/18 01:00 63 13 95/52 (66) 100 06/18/18 00:30 64 18 98/51 (67) 100 06/18/18 00:00 97.4 67 16 119/90 (100) 100 06/18/18 00:00 66 06/18/18 00:00 119/90 06/18/18 00:00 Nasal Cannula 3.0 06/17/18 23:30 66 16 99/46 (63) 100 06/17/18 23:00 66 21 93 06/17/18 23:00 107/50 06/17/18 22:30 65 16 100/52 (68) 98 06/17/18 22:00 86/49 06/17/18 21:30 66 16 99/46 (63) 100 06/17/18 21:15 66 19 100/46 (64) 100 06/17/18 21:00 64 21 99/46 (63) 100 06/17/18 21:00 100/46 06/17/18 20:53 67 19 100/46 (64) 100 06/17/18 20:45 65 20 104/46 (65) 100 06/17/18 20:30 64 19 107/52 (70) 100 06/17/18 20:15 64 20 99/71 (80) 100 06/17/18 20:00 Nasal Cannula 3.0 06/17/18 20:00 62 16 84/45 (58) 100 06/17/18 20:00 99/71 06/17/18 20:00 64 06/17/18 19:45 65 20 97/51 (66) 100 06/17/18 19:40 66 19 97/52 (67) 100 06/17/18 19:30 66 14 90/70 (77) 100 06/17/18 19:15 65 18 100/56 (71) 100 06/17/18 19:00 98.7 66 18 100/56 (71) 100 06/17/18 19:00 100/56 06/17/18 18:41 95/50 06/17/18 17:45 66 19 99/41 (60) 100 06/17/18 17:41 99/41 06/17/18 17:30 65 19 116/92 (100) 96 06/17/18 17:15 63 21 92/50 (64) 100 06/17/18 17:00 65 23 91/50 (64) 100 06/17/18 16:45 67 24 87/45 (59) 100 06/17/18 16:41 87/45 06/17/18 16:30 70 20 106/59 (75) 100 06/17/18 16:15 72 21 99/56 (70) 100 06/17/18 16:00 Nasal Cannula 4.0 06/17/18 16:00 69 19 92/57 (69) 100 06/17/18 16:00 66 06/17/18 15:45 67 22 99/58 (72) 100 06/17/18 15:41 99/58 06/17/18 15:30 66 20 108/55 (72) 100 06/17/18 15:15 66 20 107/54 (71) 100 06/17/18 15:00 66 17 140/53 (82) 99 06/17/18 14:45 65 18 93/59 (70) 98 06/17/18 14:41 93/59 06/17/18 14:30 66 107/64 (78) 100 06/17/18 14:15 66 18 58/41 (47) 100 06/17/18 14:00 67 16 115/54 (74) 100 06/17/18 13:45 66 19 105/54 (71) 100 06/17/18 13:41 105/54 06/17/18 13:30 63 19 102/55 (71) 100 06/17/18 13:15 63 17 89/42 (58) 100 06/17/18 13:00 64 17 89/43 (58) 100 06/17/18 12:45 64 18 106/52 (70) 100 Height (Feet): 5 Height (Inches): 6.00 Weight (Pounds): 216 HEENT: other - blind Respiratory/Chest: lungs clear Cardiovascular: normal rate, other - R femoral line Abdomen: soft, non tender Extremities: other - edema of left leg, R BKA Skin: ulcers, other - left heel Neurologic/Psychiatric: alert, responsive Current Medications Medications (Trade) Dose Ordered Sig/Andre Route PRN Reason Start Time Stop Time Status Last Admin Dose Admin Acetaminophen (Tylenol) 500 mg Q6H PRN ORAL Mild Pain/Temp > 100.5 06/16/18 02:15 07/13/18 08:14 Aspirin (ASA) 81 mg DAILY ORAL 06/16/18 09:00 07/13/18 08:59 06/18/18 10:23 Atorvastatin Calcium (Lipitor) 10 mg BEDTIME ORAL 06/16/18 21:00 07/13/18 20:59 06/17/18 20:47 Chlorhexidine Gluconate (Fabiola-Hex 2%) 1 applic DAILY@2000 TOPIC 06/16/18 20:00 07/16/18 19:59 06/17/18 20:47 Collagenase (Santyl) 1 applic DAILY TOPIC 06/16/18 09:00 07/13/18 08:59 06/18/18 10:23 Dextrose (Dextrose 50%) 25 ml Q30M PRN IV Hypoglycemia 06/17/18 20:15 07/17/18 20:14 Dextrose (Dextrose 50%) 50 ml Q30M PRN IV Hypoglycemia 06/17/18 20:15 07/17/18 20:14 Dopamine HCl/ Dextrose 250 ml @ 0 mls/hr Q24H IV 06/17/18 02:00 07/16/18 01:59 06/17/18 06:41 Heparin Sodium (Porcine) (Heparin 5000 units/ml) 5,000 units EVERY 12 HOURS SUBQ 06/16/18 09:00 07/13/18 08:59 06/18/18 10:25 Heparin Sodium (Porcine) (Heparin Sod 1000 units/ml 10ml) 2,000 unit ONCE IV 06/18/18 06:00 06/18/18 18:00 Insulin Aspart (NovoLOG) BEFORE MEALS AND HS SUBQ 06/17/18 21:00 07/17/18 20:59 06/18/18 11:32 Loperamide HCl (Imodium) 4 mg Q4H PRN ORAL diarrhea 06/16/18 03:45 07/14/18 15:40 Lorazepam (Ativan) 1 mg Q6H PRN ORAL For Anxiety 06/17/18 10:30 06/24/18 10:29 06/17/18 10:45 Meropenem 500 mg/ Sodium Chloride 55 ml @ 110 mls/hr Q24H IVPB 06/16/18 14:00 06/20/18 13:59 06/17/18 14:42 Multivitamins Therapeutic (Therapeutic Multivitamin) 1 ea DAILY ORAL 06/16/18 09:00 07/13/18 08:59 06/18/18 10:23 Pantoprazole (Protonix) 40 mg DAILY ORAL 06/16/18 09:00 07/13/18 08:59 06/18/18 10:23 Sodium Chloride 1,000 ml @ 500 mls/hr Q2H PRN IVLG sbp<90 during hd 06/18/18 06:00 06/18/18 18:00 Joe Melgar MD Jun 18, 2018 12:44
[2018-06-18] MEDS ORDERED: Heparin 2000 units/Ns 1000ml INJ PRN (13:00)
[2018-06-18] MEDS ORDERED: Lidocaine 1% Plain 30 ml INJ PRN (13:00)
[2018-06-18] MEDS: Meropenem 500 MG in NS 55 ML IVPB SCH (14:00)
--- NOTE | 2018-06-18 19:30 | NUR ---
NURSE NOTES: Received pt from [facility]. Observed resting in bed. A/Ox2; confused at times. 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 Currently on dopamine drip. MAP is in 60's. 3LNC, SPO2 97%. Contact isolation for Vre in place. No s/sx of acute distress noted. ALEJANDRA shunt noted with positive bruit and thrill. R. Fem TLC noted with TKO and dopamine running. On p200 mattress. Pt scheduled to dialyze tomorrow, is aware. Will continue to monitor.
[2018-06-18] MEDS: Dyna-Hex 2% Top Sol 2oz TOPIC SCH (20:23)
--- NOTE | 2018-06-18 21:50 | NUR ---
NURSE NOTES: Patient voided in bed. Incontinence care provided. BP stable. will attempt to titrate.
--- NOTE | 2018-06-18 23:00 | NUR ---
NURSE NOTES: Attempted to titrate dopamine to 1mcg/kg/hr, BP decreased to 81/42 MAP 50. Increased to 3mcg/kg/hr per protocol. Will continue to monitor.
[2018-06-19] VITALS (51 sets, daily range): BP systolic 78–147; BP diastolic 47–94
--- NOTE | 2018-06-19 01:30 | NUR ---
NURSE NOTES: BP 126/54, HR 71. Dopamine on 6mcg/kg/min. Reinforced teachings about keeping oxygen on. Patient is forgetful at times.
--- NOTE | 2018-06-19 03:45 | NUR ---
NURSE NOTES: chg bath given, tolerated well. Central line dressing changed d/t leaking. HR 68, BP 91/47 MAP 58.
[2018-06-19] MEDS: DOPamine 400mg/250ml 250 ML IV SCH ×2 (04:42→11:30)
--- NOTE | 2018-06-19 05:17 | NUR ---
NURSE NOTES: Pt observed sleeping in bed. 2LNC in place; SPO2 98%. Continue dopamine dose.
[2018-06-19] MEDS: NovoLOG Insulin Flexpen SUBQ SCH ×4 (06:24→20:55)
--- NOTE | 2018-06-19 07:14 | Nephrology Progress Note ---
Assessment/Plan Plan Hypotension - R/O new sepsis - on IV Abx per ID. DC'ed all meds with potential to lower BP. L heel ulcer - Podiatry following. 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 Heel Ulcer - local care. Cardiac Status reviewed with Dr. Daley. 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 Pt. not a candidate for MVR due to overall condition. May be a candidate for TVR if stable. Currently unstable. Trying to taper off Dopamine. HD today. OK for a PICC line. Subjective Subjective In ICU due to hypotension. Still on dopamine drip. Trying to taper off. On Dopamine drip @ 2 mcgm/Kg/Min. No new c/o. Delusional Objective Objective Last 24 Hour Vital Signs Date Time Temp Pulse Resp B/P (MAP) Pulse Ox O2 Delivery O2 Flow Rate FiO2 06/19/18 05:30 72 18 92/68 (76) 89 06/19/18 05:00 66 18 95/48 (64) 98 06/19/18 05:00 92/68 06/19/18 04:42 103/65 06/19/18 04:00 Nasal Cannula 2.0 06/19/18 04:00 98.2 70 19 106/50 (68) 98 06/19/18 04:00 67 06/19/18 03:30 68 19 91/47 (62) 99 06/19/18 03:00 65 13 103/49 (67) 100 06/19/18 02:30 70 16 95/48 (64) 97 06/19/18 02:00 71 15 104/58 (73) 90 06/19/18 02:00 123/65 06/19/18 01:30 71 20 126/56 (79) 99 06/19/18 01:00 70 19 123/65 (84) 100 06/19/18 01:00 82/49 06/19/18 00:30 71 18 99/50 (66) 98 06/19/18 00:00 98.4 66 82/49 (60) 06/19/18 00:00 Nasal Cannula 2.0 06/19/18 00:00 81/42 06/19/18 00:00 65 06/18/18 23:45 63 16 81/42 (55) 97 11/25/18 23:30 62 19 98/45 (62) 89 06/18/18 23:15 65 18 89/48 (62) 100 06/18/18 23:00 97/61 06/18/18 23:00 72 13 97/61 (73) 100 06/18/18 22:30 70 17 92/41 (58) 100 06/18/18 22:00 71 19 107/49 (68) 99 06/18/18 22:00 63/55 06/18/18 21:30 70 18 91/50 (64) 100 06/18/18 21:00 63/50 06/18/18 21:00 71 17 63/50 (54) 100 06/18/18 20:30 72 19 90/48 (62) 100 06/18/18 20:00 72 16 110/65 (80) 100 06/18/18 20:00 Nasal Cannula 3.0 06/18/18 20:00 110/65 06/18/18 20:00 70 06/18/18 19:30 98.4 73 16 117/61 (79) 100 06/18/18 19:00 68 19 97/52 (67) 100 06/18/18 19:00 87/47 06/18/18 18:30 68 19 97/52 (67) 100 06/18/18 18:00 105/55 06/18/18 18:00 70 19 105/55 (72) 100 06/18/18 17:30 70 19 114/59 (77) 100 06/18/18 17:00 69 19 102/53 (69) 100 06/18/18 17:00 102/53 06/18/18 16:30 66 19 92/47 (62) 100 06/18/18 16:00 62 19 90/45 (60) 100 06/18/18 16:00 66 06/18/18 16:00 96/49 06/18/18 16:00 Nasal Cannula 3.0 06/18/18 15:30 64 19 96/49 (65) 100 06/18/18 15:00 60 19 77/43 (54) 100 06/18/18 15:00 77/43 06/18/18 14:30 64 20 91/48 (62) 100 06/18/18 14:00 109/58 06/18/18 14:00 64 17 109/58 (75) 100 06/18/18 13:30 63 20 118/59 (78) 100 06/18/18 13:00 60 21 119/54 (75) 100 06/18/18 13:00 119/54 06/18/18 12:46 56 14 84/48 (60) 100 06/18/18 12:30 56 17 77/40 (52) 100 06/18/18 12:00 87/42 06/18/18 12:00 57 06/18/18 12:00 56 15 79/44 (56) 100 06/18/18 11:47 Nasal Cannula 3.0 06/18/18 11:30 57 17 84/41 (55) 100 06/18/18 11:00 59 16 94/56 (69) 100 06/18/18 11:00 89/45 06/18/18 11:00 59 20 89/47 (61) 100 06/18/18 10:30 59 18 83/54 (64) 100 06/18/18 10:00 60 16 89/45 (60) 100 06/18/18 10:00 95/62 06/18/18 09:30 62 17 74/47 (56) 99 06/18/18 09:00 95/55 06/18/18 09:00 65 16 97/58 (71) 100 06/18/18 08:30 64 19 95/62 (73) 100 06/18/18 08:00 94/52 06/18/18 08:00 65 14 95/55 (68) 100 06/18/18 08:00 64 06/18/18 07:30 97.6 64 18 85/53 (64) 100 Intake and Output 06/18/18 06/19/18 19:00 07:00 Intake Total 622.82 ml 50.25 ml Balance 622.82 ml 50.25 ml Intake Oral 500 ml 0 ml IV Total 122.82 ml 50.25 ml # Voids 1 # Bowel Movements 4 1 Height (Feet): 5 Height (Inches): 6.00 Weight (Pounds): 213 Objective Blind Cv RR Lungs CTA Abd SNT. BS + E Rt AKA stump clean. Lt. deep heel ulcer. Neuro A+ O . @ times delusional Brenda Fuller MD Jun 19, 2018 07:14
--- NOTE | 2018-06-19 07:53 | NUR ---
Report Given by lore chou, claimed patient spoke to george yang .
--- NOTE | 2018-06-19 07:58 | NUR ---
NURSE NOTES: Patient is resting in bed, very talkative, appears to be confused, needs to reorient constantly, on 2l nasal cannula, on dopamine drip to maintain blood pressure and heart heart. Patient is able to communicate her wants and needs and denies pain. Is anuric, and incontinent to bowel movement, Sinus rhythm, unstable BP, has swelling through her body+2 edema, has a sacral wound , on a p200 mattress , has family that visits. Plan: To insert PICC line Dr smith is aware and is aware that patient has already an AV fistula.
[2018-06-19] MEDS: Multivitamin w/Minerals tab ORAL SCH (08:42)
[2018-06-19] MEDS: Aspirin Baby 81mg ORAL SCH (08:42)
[2018-06-19] MEDS: Heparin 5000 units/ml inj SUBQ SCH ×2 (08:43→20:48)
--- NOTE | 2018-06-19 09:00 | NUR ---
NURSE NOTES: Patient is resting in bed, awake and alert, ate most of her breakfast, taken her morning medications, has been turned and repositioned.
--- NOTE | 2018-06-19 10:28 | Infectious Diseases Prog Note ---
Assessment/Plan Assessment/Plan A; Calcaneal osteomyelitis DM ESRD on HD AMS PVD Diabetic retinopathy Mitral & Tricuspid regurgitation Elevated troponin Hypotension P; continue Vancomycin & Meropenem Subjective ROS Limited/Unobtainable: Yes Constitutional: Reports: no symptoms, other - looks happy Allergies: Coded Allergies: BENAZEPRIL (Verified Allergy, Unknown, 06/12/18) CODEINE (Verified Allergy, Unknown, 06/12/18) INSULIN ASPART (Verified Allergy, Unknown, 06/12/18) INSULIN DETEMIR (Verified Allergy, Unknown, 06/12/18) OPIOIDS - MORPHINE ANALOGUES (Verified Allergy, Unknown, 06/12/18) Objective Vital Signs Last 24 Hour Vital Signs Date Time Temp Pulse Resp B/P (MAP) Pulse Ox O2 Delivery O2 Flow Rate FiO2 06/19/18 09:30 68 17 102/69 (80) 98 06/19/18 09:00 68 17 99/52 (68) 96 06/19/18 08:30 68 19 101/67 (78) 95 06/19/18 08:00 Nasal Cannula 2.0 06/19/18 08:00 68 06/19/18 08:00 97.9 71 16 103/52 (69) 96 06/19/18 07:30 71 16 104/49 (67) 96 06/19/18 07:00 71 16 105/58 (74) 96 06/19/18 06:55 72 17 116/58 (77) 100 06/19/18 06:45 71 15 78/55 (63) 100 06/19/18 06:30 71 15 113/53 (73) 100 06/19/18 06:15 73 18 111/68 (82) 100 06/19/18 06:00 73 18 98/68 (78) 89 06/19/18 06:00 72 19 98/75 (83) 87 06/19/18 06:00 105/42 06/19/18 05:30 72 18 92/68 (76) 89 06/19/18 05:00 66 18 95/48 (64) 98 06/19/18 05:00 92/68 06/19/18 04:42 103/65 06/19/18 04:00 Nasal Cannula 2.0 06/19/18 04:00 98.2 70 19 106/50 (68) 98 11/26/18 04:00 67 06/19/18 03:30 68 19 91/47 (62) 99 06/19/18 03:00 65 13 103/49 (67) 100 06/19/18 02:30 70 16 95/48 (64) 97 06/19/18 02:00 71 15 104/58 (73) 90 06/19/18 02:00 123/65 06/19/18 01:30 71 20 126/56 (79) 99 06/19/18 01:00 70 19 123/65 (84) 100 06/19/18 01:00 82/49 06/19/18 00:30 71 18 99/50 (66) 98 06/19/18 00:00 98.4 66 82/49 (60) 06/19/18 00:00 Nasal Cannula 2.0 06/19/18 00:00 81/42 06/19/18 00:00 65 06/18/18 23:45 63 16 81/42 (55) 97 06/18/18 23:30 62 19 98/45 (62) 89 06/18/18 23:15 65 18 89/48 (62) 100 06/18/18 23:00 97/61 06/18/18 23:00 72 13 97/61 (73) 100 06/18/18 22:30 70 17 92/41 (58) 100 06/18/18 22:00 71 19 107/49 (68) 99 06/18/18 22:00 63/55 06/18/18 21:30 70 18 91/50 (64) 100 06/18/18 21:00 63/50 06/18/18 21:00 71 17 63/50 (54) 100 06/18/18 20:30 72 19 90/48 (62) 100 06/18/18 20:00 72 16 110/65 (80) 100 06/18/18 20:00 Nasal Cannula 3.0 06/18/18 20:00 110/65 06/18/18 20:00 70 06/18/18 19:30 98.4 73 16 117/61 (79) 100 06/18/18 19:00 68 19 97/52 (67) 100 06/18/18 19:00 87/47 06/18/18 18:30 68 19 97/52 (67) 100 11/25/18 18:00 105/55 11/25/18 18:00 70 19 105/55 (72) 100 06/18/18 17:30 70 19 114/59 (77) 100 06/18/18 17:00 69 19 102/53 (69) 100 06/18/18 17:00 102/53 06/18/18 16:30 66 19 92/47 (62) 100 06/18/18 16:00 62 19 90/45 (60) 100 06/18/18 16:00 66 06/18/18 16:00 96/49 06/18/18 16:00 Nasal Cannula 3.0 06/18/18 15:30 64 19 96/49 (65) 100 06/18/18 15:00 60 19 77/43 (54) 100 06/18/18 15:00 77/43 06/18/18 14:30 64 20 91/48 (62) 100 06/18/18 14:00 109/58 06/18/18 14:00 64 17 109/58 (75) 100 06/18/18 13:30 63 20 118/59 (78) 100 06/18/18 13:00 60 21 119/54 (75) 100 06/18/18 13:00 119/54 06/18/18 12:46 56 14 84/48 (60) 100 06/18/18 12:30 56 17 77/40 (52) 100 06/18/18 12:00 87/42 06/18/18 12:00 57 06/18/18 12:00 56 15 79/44 (56) 100 06/18/18 11:47 Nasal Cannula 3.0 06/18/18 11:30 57 17 84/41 (55) 100 06/18/18 11:00 59 16 94/56 (69) 100 06/18/18 11:00 89/45 06/18/18 11:00 59 20 89/47 (61) 100 06/18/18 10:30 59 18 83/54 (64) 100 Height (Feet): 5 Height (Inches): 6.00 Weight (Pounds): 213 General Appearance: no acute distress HEENT: other - blindness Respiratory/Chest: lungs clear Cardiovascular: normal rate, other - on low dose Dopamin Abdomen: soft, non tender Extremities: other - edema of legs, R BKA Neurologic/Psychiatric: alert, responsive Current Medications Medications (Trade) Dose Ordered Sig/Andre Route PRN Reason Start Time Stop Time Status Last Admin Dose Admin Acetaminophen (Tylenol) 500 mg Q6H PRN ORAL Mild Pain/Temp > 100.5 06/16/18 02:15 07/13/18 08:14 Aspirin (ASA) 81 mg DAILY ORAL 06/16/18 09:00 07/13/18 08:59 06/19/18 08:42 Atorvastatin Calcium (Lipitor) 10 mg BEDTIME ORAL 06/16/18 21:00 07/13/18 20:59 06/18/18 20:23 Chlorhexidine Gluconate (Fabiola-Hex 2%) 1 applic DAILY@1999 TOPIC 06/18/18 20:00 07/18/18 19:59 06/18/18 20:23 Collagenase (Santyl) 1 applic DAILY TOPIC 06/16/18 09:00 07/13/18 08:59 06/19/18 08:44 Dextrose (Dextrose 50%) 25 ml Q30M PRN IV Hypoglycemia 06/17/18 20:15 07/17/18 20:14 Dextrose (Dextrose 50%) 50 ml Q30M PRN IV Hypoglycemia 06/17/18 20:15 07/17/18 20:14 Dopamine HCl/ Dextrose 250 ml @ 0 mls/hr Q24H IV 06/17/18 02:00 07/16/18 01:59 06/19/18 04:42 Heparin Sodium (Porcine) (Heparin 5000 units/ml) 5,000 units EVERY 12 HOURS SUBQ 06/16/18 09:00 07/13/18 08:59 06/19/18 08:43 Heparin Sodium/ Sodium Chloride (Heparin 2000 units/Ns 1000ml premix) 2,000 unit ONCE PRN INJ picc line placement 06/18/18 13:00 06/19/18 12:59 Insulin Aspart (NovoLOG) BEFORE MEALS AND HS SUBQ 06/17/18 21:00 07/17/18 20:59 06/19/18 06:24 Lidocaine HCl (Xylocaine 1% 30ml) 30 ml ONCE PRN INJ picc line placement 06/18/18 13:00 06/19/18 12:59 Loperamide HCl (Imodium) 4 mg Q4H PRN ORAL diarrhea 06/16/18 03:45 07/14/18 15:40 Lorazepam (Ativan) 1 mg Q6H PRN ORAL For Anxiety 06/17/18 10:30 06/24/18 10:29 06/17/18 10:45 Meropenem 500 mg/ Sodium Chloride 55 ml @ 110 mls/hr Q24H IVPB 06/16/18 14:00 06/20/18 13:59 06/18/18 14:00 Multivitamins Therapeutic (Therapeutic Multivitamin) 1 ea DAILY ORAL 06/16/18 09:00 07/13/18 08:59 06/19/18 08:42 Pantoprazole (Protonix) 40 mg DAILY ORAL 06/16/18 09:00 07/13/18 08:59 06/19/18 08:42 Joe Melgar MD Jun 19, 2018 10:28
--- NOTE | 2018-06-19 11:10 | NUR ---
CASE MANAGEMENT: REVIEW SI: RENAL FAILURE ON HD T 97.9 HR 71 RR 16 BP 78/55 SAT 100% NC/2L IS: MEROPENEM IV Q24HR VANCO IV X1 DOPAMINE IV Q24HR ICU STATUS DCP: PATIENT IS FROM [facility]
[2018-06-19] MEDS: Meropenem 500 MG in NS 55 ML IVPB SCH (14:00)
[2018-06-19] MEDS ORDERED: Vancomycin 1250mg/D5W 250ml IVPB ONE (14:00)
--- NOTE | 2018-06-19 16:48 | Cardiology Progress Note ---
Assessment/Plan Assessment/Plan CHF hypotension, probably combination of infection and heart failure does not look critical, is being weaned off Dopamine agree with avoiding [id number] medications consider more frequnet dilysis Subjective Subjective Complaining on victoriano cold, but denies chills denies chest pain but has orthopnea Objective Last 24 Hour Vital Signs Date Time Temp Pulse Resp B/P (MAP) Pulse Ox O2 Delivery O2 Flow Rate FiO2 06/19/18 11:30 98/46 06/19/18 09:30 68 17 102/69 (80) 98 06/19/18 09:00 68 17 99/52 (68) 96 06/19/18 08:30 68 19 101/67 (78) 95 06/19/18 08:00 Nasal Cannula 2.0 06/19/18 08:00 68 06/19/18 08:00 97.9 71 16 103/52 (69) 96 06/19/18 07:30 71 16 104/49 (67) 96 06/19/18 07:00 71 16 105/58 (74) 96 06/19/18 06:55 72 17 116/58 (77) 100 06/19/18 06:45 71 15 78/55 (63) 100 06/19/18 06:30 71 15 113/53 (73) 100 06/19/18 06:15 73 18 111/68 (82) 100 06/19/18 06:00 73 18 98/68 (78) 89 06/19/18 06:00 72 19 98/75 (83) 87 06/19/18 06:00 105/42 06/19/18 05:30 72 18 92/68 (76) 89 06/19/18 05:00 66 18 95/48 (64) 98 06/19/18 05:00 92/68 06/19/18 04:42 103/65 06/19/18 04:00 Nasal Cannula 2.0 06/19/18 04:00 98.2 70 19 106/50 (68) 98 06/19/18 04:00 67 06/19/18 03:30 68 19 91/47 (62) 99 06/19/18 03:00 65 13 103/49 (67) 100 06/19/18 02:30 70 16 95/48 (64) 97 06/19/18 02:00 71 15 104/58 (73) 90 06/19/18 02:00 123/65 06/19/18 01:30 71 20 126/56 (79) 99 06/19/18 01:00 70 19 123/65 (84) 100 06/19/18 01:00 82/49 06/19/18 00:30 71 18 99/50 (66) 98 06/19/18 00:00 98.4 66 82/49 (60) 06/19/18 00:00 Nasal Cannula 2.0 06/19/18 00:00 81/42 06/19/18 00:00 65 06/18/18 23:45 63 16 81/42 (55) 97 06/18/18 23:30 62 19 98/45 (62) 89 06/18/18 23:15 65 18 89/48 (62) 100 06/18/18 23:00 97/61 06/18/18 23:00 72 13 97/61 (73) 100 06/18/18 22:30 70 17 92/41 (58) 100 06/18/18 22:00 71 19 107/49 (68) 99 06/18/18 22:00 63/55 06/18/18 21:30 70 18 91/50 (64) 100 06/18/18 21:00 63/50 06/18/18 21:00 71 17 63/50 (54) 100 06/18/18 20:30 72 19 90/48 (62) 100 06/18/18 20:00 72 16 110/65 (80) 100 06/18/18 20:00 Nasal Cannula 3.0 06/18/18 20:00 110/65 06/18/18 20:00 70 06/18/18 19:30 98.4 73 16 117/61 (79) 100 06/18/18 19:00 68 19 97/52 (67) 100 06/18/18 19:00 87/47 06/18/18 18:30 68 19 97/52 (67) 100 06/18/18 18:00 105/55 06/18/18 18:00 70 19 105/55 (72) 100 06/18/18 17:30 70 19 114/59 (77) 100 06/18/18 17:00 69 19 102/53 (69) 100 06/18/18 17:00 102/53 General Appearance: lethargic EENT: PERRL/EOMI Neck: JVD Rhythm: NSR Cardiovascular: systolic murmur Respiratory/Chest: crackles/rales Abdomen: soft Extremities: other Neurologic: other - delusional Intake and Output 06/18/18 06/19/18 19:00 07:00 Intake Total 622.82 ml 57.75 ml Balance 622.82 ml 57.75 ml Intake Oral 500 ml 0 ml IV Total 122.82 ml 57.75 ml # Voids 1 # Bowel Movements 4 1 Clarisse Daley MD Jun 19, 2018 16:48
--- NOTE | 2018-06-19 19:30 | NUR ---
NURSE NOTES: Recvd.awake,confused,disoriented Talking loud incoherently.See V/S.Dopa.drip in progress TIT.to BPS>90.Scope SR.(R)upper arm AVF with pos.thrill and Bruit.S/P HD today.Pos.chg.Kept comfortable.Re-oriented,Re-assurred.
[2018-06-19] MEDS: Dyna-Hex 2% Top Sol 2oz TOPIC SCH (20:18)
--- NOTE | 2018-06-19 22:00 | NUR ---
NURSE NOTES: HS care rendered.Pos.chg.Backrub with Lotion.Due meds admin.
--- NOTE | 2018-06-19 23:14 | General Progress Note ---
Assessment/Plan Problem List: (1) Encephalopathy acute ICD Codes: G93.40 - Encephalopathy, unspecified SNOMED: 09566821, [id number] Status: stable, progressing Assessment/Plan the pt lacks capacity to refuse medications the pt lacks capacity to leave ama cont risperdal Subjective Neurologic/Psychiatric: Reports: anxiety, depressed Allergies: Coded Allergies: BENAZEPRIL (Verified Allergy, Unknown, 06/12/18) CODEINE (Verified Allergy, Unknown, 06/12/18) INSULIN ASPART (Verified Allergy, Unknown, 06/12/18) INSULIN DETEMIR (Verified Allergy, Unknown, 06/12/18) OPIOIDS - MORPHINE ANALOGUES (Verified Allergy, Unknown, 06/12/18) Objective Last 24 Hour Vital Signs Date Time Temp Pulse Resp B/P (MAP) Pulse Ox O2 Delivery O2 Flow Rate FiO2 06/19/18 19:30 72 19 114/94 (101) 94 06/19/18 19:15 73 16 114/94 (101) 95 06/19/18 19:00 114/94 06/19/18 19:00 73 19 114/94 (101) 94 06/19/18 18:30 73 19 116/75 (89) 95 06/19/18 18:00 72 19 134/65 (88) 97 06/19/18 18:00 134/65 06/19/18 17:30 72 20 102/54 (70) 96 06/19/18 17:00 69 14 107/54 (71) 98 06/19/18 17:00 107/54 06/19/18 16:30 71 19 113/80 (91) 97 06/19/18 16:00 72 06/19/18 16:00 Nasal Cannula 2.0 06/19/18 16:00 109/55 06/19/18 16:00 98.0 71 18 109/55 (73) 97 06/19/18 15:30 72 20 120/60 (80) 93 06/19/18 15:00 71 19 116/55 (75) 94 06/19/18 15:00 116/55 06/19/18 14:30 70 18 113/61 (78) 98 06/19/18 14:00 122/60 06/19/18 14:00 75 19 122/60 (80) 98 06/19/18 13:30 93 19 147/75 (99) 95 11/26/18 13:00 95 19 136/90 (105) 95 06/19/18 13:00 136/90 06/19/18 12:30 76 14 93/50 (64) 97 06/19/18 12:00 98.2 68 14 85/50 (62) 96 06/19/18 12:00 73 06/19/18 12:00 Nasal Cannula 2.0 06/19/18 12:00 85/50 06/19/18 11:30 69 17 105/50 (68) 98 06/19/18 11:30 98/46 06/19/18 11:00 70 19 109/47 (67) 98 06/19/18 11:00 109/47 06/19/18 10:30 70 20 102/58 (73) 97 06/19/18 10:00 114/57 06/19/18 10:00 69 19 114/57 (76) 97 06/19/18 09:30 68 17 102/69 (80) 98 06/19/18 09:00 Nasal Cannula 2.0 28 06/19/18 09:00 99/52 06/19/18 09:00 97 Nasal Cannula 2.0 28 06/19/18 09:00 68 17 99/52 (68) 96 06/19/18 08:30 68 19 101/67 (78) 95 06/19/18 08:00 Nasal Cannula 2.0 06/19/18 08:00 97/69 06/19/18 08:00 68 06/19/18 08:00 97.9 71 16 103/52 (69) 96 06/19/18 07:30 71 16 104/49 (67) 96 06/19/18 07:00 108/55 06/19/18 07:00 71 16 105/58 (74) 96 06/19/18 06:55 72 17 116/58 (77) 100 06/19/18 06:45 71 15 78/55 (63) 100 06/19/18 06:30 71 15 113/53 (73) 100 06/19/18 06:15 73 18 111/68 (82) 100 06/19/18 06:00 73 18 98/68 (78) 89 06/19/18 06:00 72 19 98/75 (83) 87 06/19/18 06:00 105/42 06/19/18 05:30 72 18 92/68 (76) 89 06/19/18 05:00 66 18 95/48 (64) 98 06/19/18 05:00 92/68 06/19/18 04:42 103/65 06/19/18 04:00 Nasal Cannula 2.0 06/19/18 04:00 98.2 70 19 106/50 (68) 98 06/19/18 04:00 67 06/19/18 03:30 68 19 91/47 (62) 99 06/19/18 03:00 65 13 103/49 (67) 100 06/19/18 02:30 70 16 95/48 (64) 97 06/19/18 02:00 71 15 104/58 (73) 90 06/19/18 02:00 123/65 06/19/18 01:30 71 20 126/56 (79) 99 06/19/18 01:00 70 19 123/65 (84) 100 06/19/18 01:00 82/49 06/19/18 00:30 71 18 99/50 (66) 98 06/19/18 00:00 98.4 66 82/49 (60) 06/19/18 00:00 Nasal Cannula 2.0 06/19/18 00:00 81/42 06/19/18 00:00 65 06/18/18 23:45 63 16 81/42 (55) 97 06/18/18 23:30 62 19 98/45 (62) 89 06/18/18 23:15 65 18 89/48 (62) 100 Intake and Output 06/18/18 06/19/18 19:00 07:00 Intake Total 622.82 ml 65.25 ml Balance 622.82 ml 65.25 ml Intake Oral 500 ml 0 ml IV Total 122.82 ml 65.25 ml # Voids 1 # Bowel Movements 4 1 Height (Feet): 5 Height (Inches): 6.00 Weight (Pounds): 213 General Appearance: no apparent distress, alert, agitated Neurologic: alert, responsive, depressed affect Abelardo Yadav MD Jun 19, 2018 23:14
[2018-06-20] VITALS (42 sets, daily range): BP systolic 57–134; BP diastolic 34–72
--- NOTE | 2018-06-20 00:10 | NUR ---
NURSE NOTES: See V/S.Dopa. drip unable to Taper down.B/P drops.Scope rhythm same.Remain confused,disoriented.Cont.To Reorient,Reassurred.Pos. chg.Kept comfortable.P.Ox-96% on 3L/NC.
--- NOTE | 2018-06-20 02:00 | NUR ---
NURSE NOTES: Repositioned,Kept comfortable.No distress.
[2018-06-20] MEDS: DOPamine 400mg/250ml 250 ML IV SCH ×4 (03:24→17:00)
--- NOTE | 2018-06-20 05:00 | NUR ---
NURSE NOTES: See V/S.Levo. drip taper OFF.Scope Rhythm same.Shyam Sanabria Chg.Cont.Ca.monitoring.
[2018-06-20] MEDS: NovoLOG Insulin Flexpen SUBQ SCH ×5 (06:30→20:50)
--- NOTE | 2018-06-20 07:33 | NUR ---
HAND-OFF: Report given to CHAPIS SHEPHERD.
--- NOTE | 2018-06-20 07:34 | NUR ---
NURSE NOTES: RECEIVED PATIENT FROM Bess BELTRE RN. PATIENT IS LYING IN BED ASLEEP.HOOKED TO TRANSPORTATION DISPATCH MANAGER. ON 3L NC. NO SIGNS OF RESPI OR CARDIO DISTRESS OF THE MOMENT. NOTED P200 MATTRESS. IV ON R FEMORAL TLC, TKO. R UA AV SHUNT FOR HD PORT. BED AT LOWEST POSITION. SIDE RAILS UP. CALL LIGHT WITHIN REACH. WILL CONTINUE TO MONITOR.
--- NOTE | 2018-06-20 08:23 | NUR ---
NURSE NOTES: RESTARTED DOPAMINE DRIP. NOTED BP DROPPING. NO SIGNS OF DISTRESS. WILL CONTINUE TO MONITOR.
--- NOTE | 2018-06-20 09:04 | Nephrology Progress Note ---
Assessment/Plan Plan Hypotension - R/O new sepsis - on IV Abx per ID. DC'ed all meds with potential to lower BP. L heel ulcer - Podiatry following. 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 Heel Ulcer - local care. Cardiac Status reviewed with Dr. Daley. 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 Pt. not a candidate for MVR due to overall condition. May be a candidate for TVR if stable. Currently unstable. Trying to taper off Dopamine. HD today. OK for a PICC line. Subjective Subjective In ICU due to hypotension. Still on dopamine drip. Trying to taper off. On Dopamine drip @ <1 mcgm/Kg/Min. No new c/o. Delusional Objective Objective Last 24 Hour Vital Signs Date Time Temp Pulse Resp B/P (MAP) Pulse Ox O2 Delivery O2 Flow Rate FiO2 06/20/18 08:02 82/44 06/20/18 08:00 98.5 74 16 113/51 (71) 100 06/20/18 04:00 69 06/20/18 04:00 Nasal Cannula 2.0 06/20/18 03:24 108/53 06/20/18 00:00 Nasal Cannula 2.0 06/20/18 00:00 71 06/20/18 00:00 97.6 71 18 97/49 (65) 96 06/19/18 23:30 73 20 103/67 (79) 95 06/19/18 23:00 72 19 112/56 (74) 95 06/19/18 22:30 72 22 116/58 (77) 96 06/19/18 22:00 73 19 121/63 (82) 96 06/19/18 21:30 74 20 127/60 (82) 96 06/19/18 21:00 71 17 115/55 (75) 96 06/19/18 20:30 71 14 110/55 (73) 95 06/19/18 20:00 97.8 72 14 116/55 (75) 96 06/19/18 20:00 72 06/19/18 20:00 Nasal Cannula 2.0 06/19/18 19:30 72 19 114/94 (101) 94 06/19/18 19:15 73 16 114/94 (101) 95 06/19/18 19:00 114/94 06/19/18 19:00 73 19 114/94 (101) 94 06/19/18 18:30 73 19 116/75 (89) 95 06/19/18 18:00 72 19 134/65 (88) 97 06/19/18 18:00 134/65 06/19/18 17:30 72 20 102/54 (70) 96 06/19/18 17:00 69 14 107/54 (71) 98 06/19/18 17:00 107/54 06/19/18 16:30 71 19 113/80 (91) 97 06/19/18 16:00 72 06/19/18 16:00 Nasal Cannula 2.0 06/19/18 16:00 109/55 06/19/18 16:00 98.0 71 18 109/55 (73) 97 06/19/18 15:30 72 20 120/60 (80) 93 06/19/18 15:00 71 19 116/55 (75) 94 06/19/18 15:00 116/55 06/19/18 14:30 70 18 113/61 (78) 98 06/19/18 14:00 122/60 06/19/18 14:00 75 19 122/60 (80) 98 06/19/18 13:30 93 19 147/75 (99) 95 06/19/18 13:00 95 19 136/90 (105) 95 06/19/18 13:00 136/90 06/19/18 12:30 76 14 93/50 (64) 97 06/19/18 12:00 98.2 68 14 85/50 (62) 96 06/19/18 12:00 73 06/19/18 12:00 Nasal Cannula 2.0 06/19/18 12:00 85/50 06/19/18 11:30 69 17 105/50 (68) 98 06/19/18 11:30 98/46 06/19/18 11:00 70 19 109/47 (67) 98 06/19/18 11:00 109/47 06/19/18 10:30 70 20 102/58 (73) 97 06/19/18 10:00 114/57 06/19/18 10:00 69 19 114/57 (76) 97 06/19/18 09:30 68 17 102/69 (80) 98 Intake and Output 06/19/18 06/20/18 18:59 06:59 Intake Total 1080.0 ml 235.0 ml Output Total 0 ml Balance 1080.0 ml 235.0 ml Intake Oral 880 ml 160 ml IV Total 200.0 ml 75.0 ml Output Urine Total 0 ml # Bowel Movements 3 3 Height (Feet): 5 Height (Inches): 6.00 Weight (Pounds): 217 Objective Blind Cv RR Lungs CTA Abd SNT. BS + E Rt AKA stump clean. Lt. deep heel ulcer. Neuro A+ O . @ times delusional Brenda Fuller MD Jun 20, 2018 09:04
[2018-06-20] MEDS ORDERED: Heparin Sod 1000 units/ml 10ml IV PRN (09:07)
--- NOTE | 2018-06-20 09:28 | NUR ---
NURSE NOTES: CALLED AND SPOKE TO FELIBERTO FROM [facility]. WILL CONTINUE TO MONITOR.
[2018-06-20] MEDS: Aspirin Baby 81mg ORAL SCH (10:06)
[2018-06-20] MEDS: Multivitamin w/Minerals tab ORAL SCH (10:06)
[2018-06-20] MEDS: Heparin 5000 units/ml inj SUBQ SCH ×2 (10:07→20:42)
--- NOTE | 2018-06-20 10:42 | Infectious Diseases Prog Note ---
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 renal failure 3. diabetes mellitus 4. hypertension 5. rectal VRE colonization P 1. continue meropenem 36 more days 2. d/c iv vancomycin 3. will follow up cultures Subjective Constitutional: Denies: fever, chills Respiratory: Reports: dry cough; Denies: shortness of breath Gastrointestinal/Abdominal: Denies: nausea, vomiting, diarrhea Musculoskeletal: Denies: pain Allergies: Coded Allergies: BENAZEPRIL (Verified Allergy, Unknown, 06/12/18) CODEINE (Verified Allergy, Unknown, 06/12/18) INSULIN ASPART (Verified Allergy, Unknown, 06/12/18) INSULIN DETEMIR (Verified Allergy, Unknown, 06/12/18) OPIOIDS - MORPHINE ANALOGUES (Verified Allergy, Unknown, 06/12/18) Objective Vital Signs Last 24 Hour Vital Signs Date Time Temp Pulse Resp B/P (MAP) Pulse Ox O2 Delivery O2 Flow Rate FiO2 06/20/18 10:30 68 20 88/42 (57) 100 06/20/18 10:15 67 20 82/34 (50) 100 06/20/18 10:00 82/34 06/20/18 10:00 66 19 82/34 (50) 99 06/20/18 09:45 67 19 126/66 (86) 100 06/20/18 09:30 67 20 126/66 (86) 100 06/20/18 09:15 67 20 126/66 (86) 100 06/20/18 09:00 126/66 06/20/18 09:00 71 19 126/66 (86) 99 06/20/18 08:45 73 18 128/66 (86) 100 06/20/18 08:30 74 20 128/66 (86) 96 06/20/18 08:15 74 19 134/63 (86) 96 06/20/18 08:02 82/44 06/20/18 08:00 98.5 74 16 113/51 (71) 100 06/20/18 08:00 Nasal Cannula 2.0 06/20/18 04:00 69 06/20/18 04:00 Nasal Cannula 2.0 06/20/18 03:24 108/53 06/20/18 00:00 Nasal Cannula 2.0 06/20/18 00:00 71 06/20/18 00:00 97.6 71 18 97/49 (65) 96 06/19/18 23:30 73 20 103/67 (79) 95 06/19/18 23:00 72 19 112/56 (74) 95 06/19/18 22:30 72 22 116/58 (77) 96 06/19/18 22:00 73 19 121/63 (82) 96 06/19/18 21:30 74 20 127/60 (82) 96 06/19/18 21:00 71 17 115/55 (75) 96 06/19/18 20:30 71 14 110/55 (73) 95 06/19/18 20:00 97.8 72 14 116/55 (75) 96 06/19/18 20:00 72 06/19/18 20:00 Nasal Cannula 2.0 06/19/18 19:30 72 19 114/94 (101) 94 06/19/18 19:15 73 16 114/94 (101) 95 06/19/18 19:00 114/94 06/19/18 19:00 73 19 114/94 (101) 94 06/19/18 18:30 73 19 116/75 (89) 95 06/19/18 18:00 72 19 134/65 (88) 97 06/19/18 18:00 134/65 06/19/18 17:30 72 20 102/54 (70) 96 06/19/18 17:00 69 14 107/54 (71) 98 06/19/18 17:00 107/54 06/19/18 16:30 71 19 113/80 (91) 97 06/19/18 16:00 72 06/19/18 16:00 Nasal Cannula 2.0 06/19/18 16:00 109/55 06/19/18 16:00 98.0 71 18 109/55 (73) 97 06/19/18 15:30 72 20 120/60 (80) 93 06/19/18 15:00 71 19 116/55 (75) 94 06/19/18 15:00 116/55 06/19/18 14:30 70 18 113/61 (78) 98 06/19/18 14:00 122/60 06/19/18 14:00 75 19 122/60 (80) 98 06/19/18 13:30 93 19 147/75 (99) 95 06/19/18 13:00 95 19 136/90 (105) 95 06/19/18 13:00 136/90 06/19/18 12:30 76 14 93/50 (64) 97 06/19/18 12:00 98.2 68 14 85/50 (62) 96 06/19/18 12:00 73 06/19/18 12:00 Nasal Cannula 2.0 06/19/18 12:00 85/50 06/19/18 11:30 69 17 105/50 (68) 98 06/19/18 11:30 98/46 06/19/18 11:00 70 19 109/47 (67) 98 06/19/18 11:00 109/47 Height (Feet): 5 Height (Inches): 6.00 Weight (Pounds): 217 Respiratory/Chest: lungs clear Cardiovascular: normal rate, regular rhythm, no gallop/murmur Abdomen: soft, non tender Extremities: other - rigth stump clean, left heel ulcer, right groin catheter Current Medications Medications (Trade) Dose Ordered Sig/Andre Route PRN Reason Start Time Stop Time Status Last Admin Dose Admin Acetaminophen (Tylenol) 500 mg Q6H PRN ORAL Mild Pain/Temp > 100.5 06/16/18 02:15 07/13/18 08:14 Aspirin (ASA) 81 mg DAILY ORAL 06/16/18 09:00 07/13/18 08:59 06/20/18 10:06 Atorvastatin Calcium (Lipitor) 10 mg BEDTIME ORAL 06/16/18 21:00 07/13/18 20:59 06/19/18 20:47 Chlorhexidine Gluconate (Fabiola-Hex 2%) 1 applic DAILY@1999 TOPIC 06/18/18 20:00 07/18/18 19:59 06/19/18 20:18 Collagenase (Santyl) 1 applic DAILY TOPIC 06/16/18 09:00 07/13/18 08:59 06/20/18 10:07 Dextrose (Dextrose 50%) 25 ml Q30M PRN IV Hypoglycemia 06/17/18 20:15 07/17/18 20:14 Dextrose (Dextrose 50%) 50 ml Q30M PRN IV Hypoglycemia 06/17/18 20:15 07/17/18 20:14 Dopamine HCl/ Dextrose 250 ml @ 0 mls/hr Q24H IV 06/19/18 11:30 07/19/18 11:29 06/20/18 08:02 Heparin Sodium (Porcine) (Heparin 5000 units/ml) 5,000 units EVERY 12 HOURS SUBQ 06/16/18 09:00 07/13/18 08:59 06/20/18 10:07 Heparin Sodium (Porcine) (Heparin Sod 1000 units/ml 10ml) 2,000 unit ONCE PRN IV DIALYSIS 06/20/18 09:07 06/21/18 23:59 Insulin Aspart (NovoLOG) BEFORE MEALS AND HS SUBQ 06/17/18 21:00 07/17/18 20:59 06/19/18 20:55 Loperamide HCl (Imodium) 4 mg Q4H PRN ORAL diarrhea 06/16/18 03:45 07/14/18 15:40 Lorazepam (Ativan) 1 mg Q6H PRN ORAL For Anxiety 06/17/18 10:30 06/24/18 10:29 06/17/18 10:45 Meropenem 500 mg/ Sodium Chloride 55 ml @ 110 mls/hr Q24H IVPB 06/16/18 14:00 06/24/18 13:59 06/19/18 14:00 Multivitamins Therapeutic (Therapeutic Multivitamin) 1 ea DAILY ORAL 06/16/18 09:00 07/13/18 08:59 06/20/18 10:06 Pantoprazole (Protonix) 40 mg DAILY ORAL 06/16/18 09:00 07/13/18 08:59 06/20/18 10:06 Sodium Chloride 1,000 ml @ 500 mls/hr Q2H PRN IVLG sbp<90 during hd 06/20/18 09:07 06/21/18 23:59 Vancomycin HCl (Vanco rx to dose) 1 ea DAILY PRN MISC PER RX PROTOCOL 06/19/18 12:00 07/19/18 11:59 Naya Cain MD Jun 20, 2018 10:42"
--- NOTE | 2018-06-20 11:14 | NUR ---
CASE MANAGEMENT: REVIEW SI: RENAL FAILURE ON HD T 98.0 HR 62 RR 20 BP 65/35 SAT 99% NC/2L IS: MEROPENEM IV Q24HR DOPAMINE IV Q24HR ICU STATUS DCP: PATIENT IS FROM [facility]
--- NOTE | 2018-06-20 11:30 | NUR ---
NURSE NOTES: SON SEEN AT THE BEDSIDE. DOPAMINE ON TITRATION PER CN SUPERVISION. NO SIGNS OF DISTRESS. WILL CONTINUE TO MONITOR.
--- NOTE | 2018-06-20 11:30 | NUR ---
NURSE NOTES: STARTED PATIENT ON GTF. PATIENT IS TOLERATING FEEDING. REPOSITIONED PATIENT. WILL CONTINUE TO MONITOR, Addendum: 06/20/18 at 1817 by JOAO ALBRECHT RN NURSE NOTES: WRONG ENTRY.
--- NOTE | 2018-06-20 13:48 | NUR ---
RD ASSESSMENT & RECOMMENDATIONS SEE CARE ACTIVITY FOR COMPLETE ASSESSMENT DAILY ESTIMATED NEEDS: Needs based on ESRD on HD, Wounds (Adj Wt 62kg) 25-30 kcals/kg 2444-5102 total kcals 1.25-1.8 g protein/kg 76-112 g total protein Fluid per MD, on HD mL/kg . total fluid mLs NUTRITION DIAGNOSIS: 1) Increased kcal, pro needs R/T wound healing and renal dysfunction as evidenced by pt w/ open left heel wound, w/ ESRD on HD. CURRENT DIET:Renal puree moist PO DIET RECOMMENDATIONS: RENAL, CCHO MED + Double Protein Portions (texture per RELATIONSHIP COUNSELOR) ADDITIONAL RECOMMENDATIONS: 1) Wound healing: Add Dimitry 1pkt BID , Nephrovite 1 tab daily 2) Obtain dry wt post HD on a calibrated bed scale 3) Monitor lytes closely 4) RELATIONSHIP COUNSELOR eval for appropriate texture, pt currently on puree diet 5) Add NEPRO 1 can daily + high protein snacks prn 6) Monitor po intake- variable PO intake at this time
--- NOTE | 2018-06-20 14:00 | NUR ---
NURSE NOTES: PATIENT KEPT CLEAN AND DRY. PATIENT IS AT THE BEDSIDE. WILL CONTINUE TO MONITOR.
[2018-06-20] MEDS: Meropenem 500 MG in NS 55 ML IVPB SCH (14:55)
--- NOTE | 2018-06-20 15:25 | Diagnostic Imaging Report ---
Indications: Needs long-term IV access Technique: Procedure performed at bedside. Procedural timeout performed. Ultrasound confirms patent compressible left basilic vein. Total sterile technique, including sterile probe cover and sterile gel, sterile gloves, hand hygiene, hat, mask,, sterile gown, large sterile drape, and preparation with 2% chlorhexidine utilized. Local anesthesia with 1% lidocaine. Under real-time ultrasound guidance, puncture left basilic vein using 21-gauge needle, passage 0.018 guidewire, exchange for 5 Croatian peel-away sheath. 5 Croatian Bard dual-lumen power PICC cut to 46 cm. It was inserted through the peel-away sheath. Peel-away sheath and guidewire removed. Catheter fixed to the skin. Both catheter ports aspirated and flushed. Patient tolerated procedure well, without immediate complication. Followup chest x-ray obtained, documents catheter tip position at the deep right atrium. This was pulled back, and a subsequent radiograph documents satisfactory catheter tip position in the high right atrium Incidentally noted on the post procedure chest radiograph is complete opacification of left hemithorax. There is also suggestion of abrupt cut off of the left mainstem bronchus. There is a small right pleural effusion which is unchanged from 06/13/2018 Impression: Successful bedside placement of left arm PICC under sonographic guidance, as described above. Post procedure chest radiograph demonstrates complete opacification left hemithorax. This is likely due to enlarging previously demonstrated massive left pleural effusion. However, there is also suggestion of abrupt cut off of the left mainstem bronchus, so findings could also be related to atelectasis at the left lung secondary to endobronchial obstruction. This finding was phoned to patient's nurse, Gavin, in the ICU at the time of interpretation
--- NOTE | 2018-06-20 16:05 | NUR ---
NURSE NOTES: SEEN AND EXAMINED BY DR OCONNOR. NO SIGNS OF DISTRESS. WILL CONTINUE TO MONITOR.
--- NOTE | 2018-06-20 17:15 | Progress Note ---
DATE: 06/20/2018 SUBJECTIVE: The patient is more alert, still has episodes of confusion and anxiety. The patient knew the year, however, did not know the month, has still waxing and waning consciousness. The patient has episodes of anxiety. I spoke to his son yesterday. Her psychotic symptoms are improved on current medication. At times, she is refusing her medications. Provide with reality orientation and supportive therapy. Abelardo Yadav M.D. DR: Pita JOB#: [id number] CC:
--- NOTE | 2018-06-20 18:26 | Cardiology Progress Note ---
Assessment/Plan Assessment/Plan still could not be weaned from Dopamine drip, and has evidence of fluid overload , severe MR continue weaning from Dopamine, no additional medications could be given from cardiac standpoint due to hypotension Subjective Subjective the patient still has orthopnea, she cannot lie down flat, denies dizziness was started on G tube feeding Objective Last 24 Hour Vital Signs Date Time Temp Pulse Resp B/P (MAP) Pulse Ox O2 Delivery O2 Flow Rate FiO2 06/20/18 18:00 93/70 06/20/18 18:00 75 19 93/70 (78) 100 06/20/18 17:45 63 20 57/36 (43) 100 06/20/18 17:45 57/36 06/20/18 17:30 63 20 57/36 (43) 100 06/20/18 17:30 57/36 06/20/18 17:15 63 20 57/36 (43) 100 06/20/18 17:15 57/36 06/20/18 17:00 65/35 06/20/18 17:00 65/35 06/20/18 17:00 60 18 65/35 (45) 100 06/20/18 16:15 100/43 06/20/18 16:15 70 18 100/43 (62) 99 06/20/18 16:00 60 06/20/18 16:00 Nasal Cannula 2.0 06/20/18 16:00 98.0 72 20 98/42 (60) 100 06/20/18 15:30 62 18 81/34 (50) 99 06/20/18 15:15 91/48 06/20/18 15:00 65 18 126/71 (89) 99 06/20/18 15:00 126/71 06/20/18 14:55 115/50 06/20/18 14:30 70 19 126/71 (89) 100 06/20/18 14:00 67 20 62/47 (52) 100 06/20/18 14:00 62/47 06/20/18 13:30 97/43 06/20/18 13:30 69 19 97/43 (61) 99 06/20/18 13:00 75 20 115/50 (71) 100 06/20/18 13:00 115/50 06/20/18 12:45 68 20 99/49 (66) 100 06/20/18 12:45 99/49 06/20/18 12:30 86/45 06/20/18 12:30 66 20 86/45 (59) 100 06/20/18 12:15 66 20 86/45 (59) 100 06/20/18 12:15 86/45 06/20/18 12:00 80 06/20/18 12:00 98.5 65 20 85/39 (54) 100 06/20/18 12:00 Nasal Cannula 2.0 06/20/18 12:00 85/39 06/20/18 11:45 94/42 06/20/18 11:18 Nasal Cannula 2.0 28 06/20/18 11:18 98 Nasal Cannula 2.0 28 06/20/18 11:15 69 20 94/42 (59) 100 06/20/18 11:15 94/42 06/20/18 11:00 69 20 94/42 (59) 100 06/20/18 11:00 94/42 06/20/18 10:45 69 20 88/42 (57) 100 06/20/18 10:45 88/42 06/20/18 10:30 88/42 06/20/18 10:30 68 20 88/42 (57) 100 06/20/18 10:15 88/42 06/20/18 10:15 67 20 88/42 (57) 100 06/20/18 10:00 82/34 06/20/18 10:00 66 19 82/34 (50) 99 06/20/18 09:45 67 19 126/66 (86) 100 06/20/18 09:45 126/66 06/20/18 09:30 126/66 06/20/18 09:30 67 20 126/66 (86) 100 06/20/18 09:15 126/66 06/20/18 09:15 67 20 126/66 (86) 100 06/20/18 09:00 126/66 06/20/18 09:00 71 19 126/66 (86) 99 06/20/18 08:45 73 18 82/42 (55) 100 06/20/18 08:45 82/42 06/20/18 08:30 82/42 06/20/18 08:30 74 20 82/42 (55) 96 06/20/18 08:15 74 19 82/42 (55) 96 06/20/18 08:15 82/42 06/20/18 08:02 82/44 06/20/18 08:00 98.5 74 16 82/42 (55) 100 06/20/18 08:00 74 06/20/18 08:00 Nasal Cannula 2.0 06/20/18 04:00 69 06/20/18 04:00 Nasal Cannula 2.0 06/20/18 03:24 108/53 06/20/18 00:00 Nasal Cannula 2.0 06/20/18 00:00 71 06/20/18 00:00 97.6 71 18 97/49 (65) 96 06/19/18 23:30 73 20 103/67 (79) 95 06/19/18 23:00 72 19 112/56 (74) 95 06/19/18 22:30 72 22 116/58 (77) 96 06/19/18 22:00 73 19 121/63 (82) 96 06/19/18 21:30 74 20 127/60 (82) 96 06/19/18 21:00 71 17 115/55 (75) 96 06/19/18 20:30 71 14 110/55 (73) 95 06/19/18 20:00 97.8 72 14 116/55 (75) 96 06/19/18 20:00 72 06/19/18 20:00 Nasal Cannula 2.0 06/19/18 19:30 72 19 114/94 (101) 94 06/19/18 19:15 73 16 114/94 (101) 95 06/19/18 19:00 114/94 06/19/18 19:00 73 19 114/94 (101) 94 06/19/18 18:30 73 19 116/75 (89) 95 General Appearance: mild distress EENT: other - right eye is blind Neck: JVD Rhythm: NSR Cardiovascular: systolic murmur - loud systolic murmur at the paex, diminished S1 Respiratory/Chest: crackles/rales Abdomen: non tender Extremities: other - left leg dressing Intake and Output 06/19/18 06/20/18 19:00 07:00 Intake Total 1080.0 ml 227.5 ml Output Total 0 ml Balance 1080.0 ml 227.5 ml Intake Oral 880 ml 160 ml IV Total 200.0 ml 67.5 ml Output Urine Total 0 ml # Bowel Movements 3 3 Clarisse Daley MD Jun 20, 2018 18:26
--- NOTE | 2018-06-20 18:43 | NUR ---
NURSE NOTES: PATIENT TOLERATED DIET. REPOSITIONED PATIENT. WILL CONTINUE TO MONITOR.
--- NOTE | 2018-06-20 19:04 | NUR ---
HAND-OFF: Report given to Emi Coley RN. Patient is still in Dopamine drip.
--- NOTE | 2018-06-20 19:30 | NUR ---
NURSE NOTES: Recvd.awake in bed confused,disoriented and loud talks incoherently,Re-oriented,reassurred.See V/S Dopa drip in progress at 3mcg/kg/min.Scope SR.Denies CP.AVF (R)upper arm pos.thrill and Bruit.Andre.for poss.HD in am [facility] hemodialysis aware.
[2018-06-20] MEDS: Dyna-Hex 2% Top Sol 2oz TOPIC SCH (20:29)
--- NOTE | 2018-06-20 22:00 | NUR ---
NURSE NOTES: HS care rendered.Back rub with Lotion.pos.to comfort.Due med. recvd.[id number] covered.
[2018-06-21] VITALS (48 sets, daily range): BP systolic 66–126; BP diastolic 28–75
--- NOTE | 2018-06-21 00:10 | NUR ---
NURSE NOTES: Repositioned,Kept comfortable.Dopa.drip at 2mcg/kg/min.See V/S. Scope rhythm same.Cont.Ca. monitoring.No distress.
--- NOTE | 2018-06-21 02:10 | NUR ---
NURSE NOTES: Sound sleep,Resp.unlabored.P.Ox-98% on 3l/NC.Status same.
--- NOTE | 2018-06-21 04:20 | NUR ---
NURSE NOTES: Repositioned,Kept comfortable.Shyam Sanabria.Decub.care Tx.Done.Andre.for poss.HD this am.
--- NOTE | 2018-06-21 06:00 | NUR ---
NURSE NOTES: See V/S.Unable to taper OFF DOPA.drip B/P drops.Resumed at 2mcg/kg/min.
[2018-06-21] MEDS: NovoLOG Insulin Flexpen SUBQ SCH ×4 (06:30→20:51)
--- NOTE | 2018-06-21 07:36 | NUR ---
HAND-OFF: Report given to CHAPIS CARVALHO.
--- NOTE | 2018-06-21 08:00 | NUR ---
NURSE NOTES: Received pt from CHAPIS Anderson. Pt in bed confused,disoriented and loud talks incoherently,Re-oriented,reassurred. VSS, Dopa drip in progress at 2mcg/kg/min. Pt has Right upper arm PICC and L arm shunt. Pt has right BKA, skin issues noted. Safety measures in place. Will continue to monitor.
[2018-06-21] MEDS: Heparin 5000 units/ml inj SUBQ SCH ×2 (09:00→20:49)
[2018-06-21] MEDS: Multivitamin w/Minerals tab ORAL SCH (09:48)
[2018-06-21] MEDS: Aspirin Baby 81mg ORAL SCH (09:49)
--- NOTE | 2018-06-21 10:00 | NUR ---
NURSE NOTES: HD finished. 2.5 L out. VSS. will continue to monitor.
--- NOTE | 2018-06-21 10:24 | Nephrology Progress Note ---
Assessment/Plan Plan Hypotension - R/O new sepsis - on IV Abx per ID. DC'ed all meds with potential to lower BP. L heel ulcer - Podiatry following. 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 Heel Ulcer - local care. Cardiac Status reviewed with Dr. Daley. 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 Pt. not a candidate for MVR due to overall condition. May be a candidate for TVR if stable. Currently unstable. Trying to taper off Dopamine. HD today. On HD now. Stable run. DW HD RN. OK for a PICC line. Subjective Subjective In ICU due to hypotension. Still on dopamine drip. Trying to taper off. Intermittent success. On Dopamine drip @ <1 mcgm/Kg/Min. No new c/o. Delusional Objective Objective Last 24 Hour Vital Signs Date Time Temp Pulse Resp B/P (MAP) Pulse Ox O2 Delivery O2 Flow Rate FiO2 06/21/18 07:00 Nasal Cannula 2.0 28 06/21/18 07:00 99 Nasal Cannula 2.0 28 06/21/18 07:00 74 21 102/50 (67) 97 06/21/18 06:30 74 20 101/75 (84) 98 06/21/18 06:00 73 17 66/35 (45) 97 06/21/18 05:30 66 19 71/31 (44) 97 06/21/18 05:00 78 19 113/39 (63) 98 06/21/18 04:30 78 19 108/28 (54) 99 06/21/18 04:00 98.7 79 16 105/44 (64) 99 06/21/18 04:00 Nasal Cannula 2.0 06/21/18 04:00 82 06/21/18 03:30 78 19 99/36 (57) 98 06/21/18 03:00 74 15 110/33 (58) 100 06/21/18 02:30 76 15 109/40 (63) 100 06/21/18 02:00 78 18 108/42 (64) 98 06/21/18 01:30 78 20 102/40 (60) 98 06/21/18 01:00 74 21 99/32 (54) 98 06/21/18 00:30 98.1 75 14 104/42 (62) 98 06/21/18 00:00 77 21 111/48 (69) 97 06/21/18 00:00 79 06/21/18 00:00 Nasal Cannula 2.0 06/20/18 23:30 78 19 98/40 (59) 97 06/20/18 23:00 72 20 104/72 (83) 100 06/20/18 22:00 68 16 102/40 (60) 98 06/20/18 21:30 70 17 102/40 (60) 100 06/20/18 21:00 68 20 102/40 (60) 100 06/20/18 20:30 68 19 104/38 (60) 99 06/20/18 20:00 98.3 77 19 102/42 (62) 100 06/20/18 20:00 86 06/20/18 20:00 Nasal Cannula 2.0 06/20/18 19:41 99 Nasal Cannula 2.0 28 06/20/18 19:41 Nasal Cannula 2.0 28 06/20/18 19:30 78 20 99/68 (78) 100 06/20/18 19:00 97/71 06/20/18 19:00 90 20 97/71 (80) 100 06/20/18 18:30 90 20 97/71 (80) 100 06/20/18 18:30 97/71 06/20/18 18:00 93/70 06/20/18 18:00 75 19 93/70 (78) 100 06/20/18 17:45 63 20 57/36 (43) 100 06/20/18 17:45 57/36 06/20/18 17:30 63 20 57/36 (43) 100 06/20/18 17:30 57/36 06/20/18 17:15 63 20 57/36 (43) 100 06/20/18 17:15 57/36 06/20/18 17:00 65/35 06/20/18 17:00 65/35 06/20/18 17:00 60 18 65/35 (45) 100 06/20/18 16:15 100/43 06/20/18 16:15 70 18 100/43 (62) 99 06/20/18 16:00 60 06/20/18 16:00 Nasal Cannula 2.0 06/20/18 16:00 98.0 72 20 98/42 (60) 100 06/20/18 15:30 62 18 81/34 (50) 99 06/20/18 15:15 91/48 06/20/18 15:00 65 18 126/71 (89) 99 06/20/18 15:00 126/71 06/20/18 14:55 115/50 06/20/18 14:30 70 19 126/71 (89) 100 06/20/18 14:00 67 20 62/47 (52) 100 06/20/18 14:00 62/47 06/20/18 13:30 97/43 06/20/18 13:30 69 19 97/43 (61) 99 06/20/18 13:00 75 20 115/50 (71) 100 06/20/18 13:00 115/50 06/20/18 12:45 68 20 99/49 (66) 100 06/20/18 12:45 99/49 06/20/18 12:30 86/45 06/20/18 12:30 66 20 86/45 (59) 100 06/20/18 12:15 66 20 86/45 (59) 100 06/20/18 12:15 86/45 06/20/18 12:00 80 06/20/18 12:00 98.5 65 20 85/39 (54) 100 06/20/18 12:00 Nasal Cannula 2.0 06/20/18 12:00 85/39 06/20/18 11:45 94/42 06/20/18 11:18 Nasal Cannula 2.0 28 06/20/18 11:18 98 Nasal Cannula 2.0 28 06/20/18 11:15 69 20 94/42 (59) 100 06/20/18 11:15 94/42 06/20/18 11:00 69 20 94/42 (59) 100 06/20/18 11:00 94/42 06/20/18 10:45 69 20 88/42 (57) 100 06/20/18 10:45 88/42 06/20/18 10:30 88/42 06/20/18 10:30 68 20 88/42 (57) 100 Intake and Output 06/20/18 06/21/18 18:59 06:59 Intake Total 395.625 ml 295.00 ml Balance 395.625 ml 295.00 ml Intake Oral 100 ml 190 ml IV Total 295.625 ml 105.00 ml # Bowel Movements 2 3 Height (Feet): 5 Height (Inches): 6.00 Weight (Pounds): 223 Objective Blind Cv RR Lungs CTA Abd SNT. BS + E Rt AKA stump clean. Lt. deep heel ulcer. Neuro A+ O . @ times delusional Brenda Fuller MD Jun 21, 2018 10:24
--- NOTE | 2018-06-21 11:08 | Infectious Diseases Prog Note ---
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 renal failure 3. diabetes mellitus 4. hypertension 5. rectal VRE colonization P 1. continue meropenem 35 more days 2. will follow up cultures Subjective Constitutional: Denies: fever, chills Respiratory: Denies: shortness of breath, dry cough Gastrointestinal/Abdominal: Denies: nausea, vomiting, diarrhea Musculoskeletal: Denies: pain Allergies: Coded Allergies: BENAZEPRIL (Verified Allergy, Unknown, 06/12/18) CODEINE (Verified Allergy, Unknown, 06/12/18) INSULIN ASPART (Verified Allergy, Unknown, 06/12/18) INSULIN DETEMIR (Verified Allergy, Unknown, 06/12/18) OPIOIDS - MORPHINE ANALOGUES (Verified Allergy, Unknown, 06/12/18) Objective Vital Signs Last 24 Hour Vital Signs Date Time Temp Pulse Resp B/P (MAP) Pulse Ox O2 Delivery O2 Flow Rate FiO2 06/21/18 07:00 Nasal Cannula 2.0 28 06/21/18 07:00 99 Nasal Cannula 2.0 28 06/21/18 07:00 74 21 102/50 (67) 97 06/21/18 06:30 74 20 101/75 (84) 98 06/21/18 06:00 73 17 66/35 (45) 97 06/21/18 05:30 66 19 71/31 (44) 97 06/21/18 05:00 78 19 113/39 (63) 98 06/21/18 04:30 78 19 108/28 (54) 99 06/21/18 04:00 98.7 79 16 105/44 (64) 99 06/21/18 04:00 Nasal Cannula 2.0 06/21/18 04:00 82 06/21/18 03:30 78 19 99/36 (57) 98 06/21/18 03:00 74 15 110/33 (58) 100 06/21/18 02:30 76 15 109/40 (63) 100 06/21/18 02:00 78 18 108/42 (64) 98 06/21/18 01:30 78 20 102/40 (60) 98 06/21/18 01:00 74 21 99/32 (54) 98 06/21/18 00:30 98.1 75 14 104/42 (62) 98 06/21/18 00:00 77 21 111/48 (69) 97 06/21/18 00:00 79 06/21/18 00:00 Nasal Cannula 2.0 06/20/18 23:30 78 19 98/40 (59) 97 06/20/18 23:00 72 20 104/72 (83) 100 06/20/18 22:00 68 16 102/40 (60) 98 06/20/18 21:30 70 17 102/40 (60) 100 06/20/18 21:00 68 20 102/40 (60) 100 06/20/18 20:30 68 19 104/38 (60) 99 06/20/18 20:00 98.3 77 19 102/42 (62) 100 06/20/18 20:00 86 06/20/18 20:00 Nasal Cannula 2.0 06/20/18 19:41 99 Nasal Cannula 2.0 28 06/20/18 19:41 Nasal Cannula 2.0 28 06/20/18 19:30 78 20 99/68 (78) 100 06/20/18 19:00 97/71 06/20/18 19:00 90 20 97/71 (80) 100 06/20/18 18:30 90 20 97/71 (80) 100 06/20/18 18:30 97/71 06/20/18 18:00 93/70 06/20/18 18:00 75 19 93/70 (78) 100 06/20/18 17:45 63 20 57/36 (43) 100 06/20/18 17:45 57/36 06/20/18 17:30 63 20 57/36 (43) 100 06/20/18 17:30 57/36 06/20/18 17:15 63 20 57/36 (43) 100 06/20/18 17:15 57/36 06/20/18 17:00 65/35 06/20/18 17:00 65/35 06/20/18 17:00 60 18 65/35 (45) 100 06/20/18 16:15 100/43 06/20/18 16:15 70 18 100/43 (62) 99 06/20/18 16:00 60 06/20/18 16:00 Nasal Cannula 2.0 06/20/18 16:00 98.0 72 20 98/42 (60) 100 06/20/18 15:30 62 18 81/34 (50) 99 06/20/18 15:15 91/48 06/20/18 15:00 65 18 126/71 (89) 99 06/20/18 15:00 126/71 06/20/18 14:55 115/50 06/20/18 14:30 70 19 126/71 (89) 100 06/20/18 14:00 67 20 62/47 (52) 100 06/20/18 14:00 62/47 06/20/18 13:30 97/43 06/20/18 13:30 69 19 97/43 (61) 99 06/20/18 13:00 75 20 115/50 (71) 100 06/20/18 13:00 115/50 06/20/18 12:45 68 20 99/49 (66) 100 06/20/18 12:45 99/49 06/20/18 12:30 86/45 06/20/18 12:30 66 20 86/45 (59) 100 06/20/18 12:15 66 20 86/45 (59) 100 06/20/18 12:15 86/45 06/20/18 12:00 80 06/20/18 12:00 98.5 65 20 85/39 (54) 100 06/20/18 12:00 Nasal Cannula 2.0 06/20/18 12:00 85/39 06/20/18 11:45 94/42 06/20/18 11:18 Nasal Cannula 2.0 28 06/20/18 11:18 98 Nasal Cannula 2.0 28 06/20/18 11:15 69 20 94/42 (59) 100 06/20/18 11:15 94/42 Height (Feet): 5 Height (Inches): 6.00 Weight (Pounds): 223 Respiratory/Chest: lungs clear Cardiovascular: normal rate, regular rhythm, no gallop/murmur Abdomen: soft, non tender Extremities: other - right stump clean, left heel ulcer, left arm PICC Current Medications Medications (Trade) Dose Ordered Sig/Andre Route PRN Reason Start Time Stop Time Status Last Admin Dose Admin Acetaminophen (Tylenol) 500 mg Q6H PRN ORAL Mild Pain/Temp > 100.5 06/16/18 02:15 07/13/18 08:14 Aspirin (ASA) 81 mg DAILY ORAL 06/16/18 09:00 07/13/18 08:59 06/21/18 09:49 Atorvastatin Calcium (Lipitor) 10 mg BEDTIME ORAL 06/16/18 21:00 07/13/18 20:59 06/20/18 20:40 Chlorhexidine Gluconate (Fabiola-Hex 2%) 1 applic DAILY@2000 TOPIC 06/18/18 20:00 07/18/18 19:59 06/20/18 20:29 Collagenase (Santyl) 1 applic DAILY TOPIC 06/16/18 09:00 07/13/18 08:59 06/21/18 09:00 Dextrose (Dextrose 50%) 25 ml Q30M PRN IV Hypoglycemia 06/17/18 20:15 07/17/18 20:14 Dextrose (Dextrose 50%) 50 ml Q30M PRN IV Hypoglycemia 06/17/18 20:15 07/17/18 20:14 Dopamine HCl/ Dextrose 250 ml @ 0 mls/hr Q24H IV 06/19/18 11:30 07/19/18 11:29 06/20/18 17:00 Heparin Sodium (Porcine) (Heparin 5000 units/ml) 5,000 units EVERY 12 HOURS SUBQ 06/16/18 09:00 07/13/18 08:59 06/20/18 20:42 Heparin Sodium (Porcine) (Heparin Sod 1000 units/ml 10ml) 2,000 unit ONCE PRN IV DIALYSIS 06/20/18 09:07 06/21/18 23:59 Insulin Aspart (NovoLOG) BEFORE MEALS AND HS SUBQ 06/17/18 21:00 07/17/18 20:59 06/20/18 20:50 Loperamide HCl (Imodium) 4 mg Q4H PRN ORAL diarrhea 06/16/18 03:45 07/14/18 15:40 Lorazepam (Ativan) 1 mg Q6H PRN ORAL For Anxiety 06/17/18 10:30 06/24/18 10:29 06/17/18 10:45 Meropenem 500 mg/ Sodium Chloride 55 ml @ 110 mls/hr Q24H IVPB 06/16/18 14:00 06/24/18 13:59 06/20/18 14:55 Multivitamins Therapeutic (Therapeutic Multivitamin) 1 ea DAILY ORAL 06/16/18 09:00 07/13/18 08:59 06/21/18 09:48 Pantoprazole (Protonix) 40 mg DAILY ORAL 06/16/18 09:00 07/13/18 08:59 06/21/18 09:48 Sodium Chloride 1,000 ml @ 500 mls/hr Q2H PRN IVLG sbp<90 during hd 06/20/18 09:07 06/21/18 23:59 Naya Cain MD Jun 21, 2018 11:08"
--- NOTE | 2018-06-21 11:16 | NUR ---
CASE MANAGEMENT: REVIEW SI: RENAL FAILURE ON HD T 98.7 HR 78 RR 17 BP 66/35 SAT 97% NC/2L IS: MEROPENEM IV Q24HR DOPAMINE IV Q24HR HEPARIN IV PRN NOVOLOG SQ AC/HS ICU STATUS DCP: PATIENT IS FROM [facility]
--- NOTE | 2018-06-21 12:00 | NUR ---
NURSE NOTES: Pt repositioned and oral care provided. Ate 75% of lunch. VSS. Will continue to monitor.
--- NOTE | 2018-06-21 13:09 | Podiatric Progress Note ---
Assessment/Plan Patient Evita Jorge is a 72 year old female who was admitted on Jun 13, 2018 at 01: 43 with Assessment/Plan A/ 1) DM foot ulcer left heel 2) Osteomyelitis left calcaneus 3) DM 4) PAD 5) ESRD 6) Right BKA P/ 1) No acute signs of infection noted. Cont wound care with Santyl daily 2) MRI left ankle without contrast - chronic osteo. Abx per ID 3) Cont off loading boot 4) Will follow Subjective Allergies: Coded Allergies: BENAZEPRIL (Verified Allergy, Unknown, 06/12/18) CODEINE (Verified Allergy, Unknown, 06/12/18) INSULIN ASPART (Verified Allergy, Unknown, 06/12/18) INSULIN DETEMIR (Verified Allergy, Unknown, 06/12/18) OPIOIDS - MORPHINE ANALOGUES (Verified Allergy, Unknown, 06/12/18) Subjective Patient drowsy. Seen with nurse. Objective Exam Last 24 Hour Vital Signs Date Time Temp Pulse Resp B/P (MAP) Pulse Ox O2 Delivery O2 Flow Rate FiO2 06/21/18 12:30 98.6 79 16 112/44 (66) 99 06/21/18 12:00 88 06/21/18 12:00 82 21 119/38 (65) 97 06/21/18 12:00 Nasal Cannula 2.0 06/21/18 11:30 79 21 105/52 (69) 97 06/21/18 11:00 74 21 102/50 (67) 97 06/21/18 10:30 79 21 109/51 (70) 97 06/21/18 10:00 80 21 103/50 (67) 97 06/21/18 09:30 74 21 110/35 (60) 97 06/21/18 09:00 75 21 105/49 (67) 97 06/21/18 08:30 74 21 109/52 (71) 97 06/21/18 08:00 Nasal Cannula 2.0 06/21/18 08:00 85 06/21/18 08:00 98.7 79 16 110/44 (66) 99 06/21/18 07:30 74 21 102/50 (67) 97 06/21/18 07:00 Nasal Cannula 2.0 28 06/21/18 07:00 99 Nasal Cannula 2.0 28 06/21/18 07:00 74 21 102/50 (67) 97 06/21/18 06:30 74 20 101/75 (84) 98 06/21/18 06:00 73 17 66/35 (45) 97 06/21/18 05:30 66 19 71/31 (44) 97 06/21/18 05:00 78 19 113/39 (63) 98 06/21/18 04:30 78 19 108/28 (54) 99 06/21/18 04:00 98.7 79 16 105/44 (64) 99 06/21/18 04:00 Nasal Cannula 2.0 06/21/18 04:00 82 06/21/18 03:30 78 19 99/36 (57) 98 06/21/18 03:00 74 15 110/33 (58) 100 06/21/18 02:30 76 15 109/40 (63) 100 06/21/18 02:00 78 18 108/42 (64) 98 06/21/18 01:30 78 20 102/40 (60) 98 06/21/18 01:00 74 21 99/32 (54) 98 06/21/18 00:30 98.1 75 14 104/42 (62) 98 06/21/18 00:00 77 21 111/48 (69) 97 06/21/18 00:00 79 06/21/18 00:00 Nasal Cannula 2.0 06/20/18 23:30 78 19 98/40 (59) 97 06/20/18 23:00 72 20 104/72 (83) 100 06/20/18 22:00 68 16 102/40 (60) 98 06/20/18 21:30 70 17 102/40 (60) 100 06/20/18 21:00 68 20 102/40 (60) 100 06/20/18 20:30 68 19 104/38 (60) 99 06/20/18 20:00 98.3 77 19 102/42 (62) 100 06/20/18 20:00 86 06/20/18 20:00 Nasal Cannula 2.0 06/20/18 19:41 99 Nasal Cannula 2.0 28 06/20/18 19:41 Nasal Cannula 2.0 28 06/20/18 19:30 78 20 99/68 (78) 100 06/20/18 19:00 97/71 06/20/18 19:00 90 20 97/71 (80) 100 06/20/18 18:30 90 20 97/71 (80) 100 06/20/18 18:30 97/71 06/20/18 18:00 93/70 06/20/18 18:00 75 19 93/70 (78) 100 06/20/18 17:45 63 20 57/36 (43) 100 06/20/18 17:45 57/36 06/20/18 17:30 63 20 57/36 (43) 100 06/20/18 17:30 57/36 06/20/18 17:15 63 20 57/36 (43) 100 06/20/18 17:15 57/36 06/20/18 17:00 65/35 06/20/18 17:00 65/35 06/20/18 17:00 60 18 65/35 (45) 100 06/20/18 16:15 100/43 06/20/18 16:15 70 18 100/43 (62) 99 06/20/18 16:00 60 06/20/18 16:00 Nasal Cannula 2.0 06/20/18 16:00 98.0 72 20 98/42 (60) 100 06/20/18 15:30 62 18 81/34 (50) 99 06/20/18 15:15 91/48 06/20/18 15:00 65 18 126/71 (89) 99 06/20/18 15:00 126/71 06/20/18 14:55 115/50 06/20/18 14:30 70 19 126/71 (89) 100 06/20/18 14:00 67 20 62/47 (52) 100 06/20/18 14:00 62/47 06/20/18 13:30 97/43 06/20/18 13:30 69 19 97/43 (61) 99 Microbiology Date/Time Source Procedure Growth Status 06/13/18 00:30 Blood Blood Culture - Final NO GROWTH AFTER 5 DAYS Complete 06/14/18 10:50 Other Gram Stain - Final Complete 06/14/18 10:50 Wound Culture - Final Pseudomonas Aeruginosa Morganella Morg Spp Morganii Streptococcus Group B Complete 06/13/18 03:00 Nasal Nares MRSA Culture - Final NO METHICILLIN RESISTANT STAPH AUREUS... Complete 06/14/18 10:50 Stool Clostridium difficile Toxin Assay - Final Complete 06/13/18 03:00 Rectum VRE Culture - Final Enterococcus Faecium - Vre Complete Dermatological Dermatological Narrative left heel wound granular, small amount of serous drainage, no bone or tendon exposed. Hany Brown DPM Jun 21, 2018 13:09
[2018-06-21] MEDS ORDERED: Haloperidol 5mg/ml Inj IM PRN (13:15)
[2018-06-21] MEDS: DOPamine 400mg/250ml 250 ML IV SCH (13:30)
[2018-06-21] MEDS: Meropenem 500 MG in NS 55 ML IVPB SCH (14:00)
--- NOTE | 2018-06-21 14:00 | NUR ---
NURSE NOTES: Pt repositioned in bed. VSS. in 2 mcg dopamine, will continue to monitor.
--- NOTE | 2018-06-21 14:02 | General Progress Note ---
Assessment/Plan Problem List: (1) Encephalopathy acute ICD Codes: G93.40 - Encephalopathy, unspecified SNOMED: 16345018, [id number] Status: unchanged Assessment/Plan the pt lacks capacity to refuse medications the pt lacks capacity to leave ama haldol prn ativan prn soft restraints. Subjective Date patient seen: Jun 21, 2018 Neurologic/Psychiatric: Reports: anxiety, depressed, emotional problems Allergies: Coded Allergies: BENAZEPRIL (Verified Allergy, Unknown, 06/12/18) CODEINE (Verified Allergy, Unknown, 06/12/18) INSULIN ASPART (Verified Allergy, Unknown, 06/12/18) INSULIN DETEMIR (Verified Allergy, Unknown, 06/12/18) OPIOIDS - MORPHINE ANALOGUES (Verified Allergy, Unknown, 06/12/18) Objective Last 24 Hour Vital Signs Date Time Temp Pulse Resp B/P (MAP) Pulse Ox O2 Delivery O2 Flow Rate FiO2 06/21/18 13:30 109/38 06/21/18 12:30 98.6 79 16 112/44 (66) 99 06/21/18 12:00 88 06/21/18 12:00 82 21 119/38 (65) 97 06/21/18 12:00 Nasal Cannula 2.0 06/21/18 11:30 79 21 105/52 (69) 97 06/21/18 11:00 74 21 102/50 (67) 97 06/21/18 10:30 79 21 109/51 (70) 97 06/21/18 10:00 80 21 103/50 (67) 97 06/21/18 09:30 74 21 110/35 (60) 97 06/21/18 09:00 75 21 105/49 (67) 97 06/21/18 08:30 74 21 109/52 (71) 97 06/21/18 08:00 Nasal Cannula 2.0 06/21/18 08:00 85 06/21/18 08:00 98.7 79 16 110/44 (66) 99 06/21/18 07:30 74 21 102/50 (67) 97 06/21/18 07:00 Nasal Cannula 2.0 28 06/21/18 07:00 99 Nasal Cannula 2.0 28 06/21/18 07:00 74 21 102/50 (67) 97 06/21/18 06:30 74 20 101/75 (84) 98 06/21/18 06:00 73 17 66/35 (45) 97 06/21/18 05:30 66 19 71/31 (44) 97 06/21/18 05:00 78 19 113/39 (63) 98 06/21/18 04:30 78 19 108/28 (54) 99 06/21/18 04:00 98.7 79 16 105/44 (64) 99 06/21/18 04:00 Nasal Cannula 2.0 06/21/18 04:00 82 06/21/18 03:30 78 19 99/36 (57) 98 06/21/18 03:00 74 15 110/33 (58) 100 06/21/18 02:30 76 15 109/40 (63) 100 06/21/18 02:00 78 18 108/42 (64) 98 06/21/18 01:30 78 20 102/40 (60) 98 06/21/18 01:00 74 21 99/32 (54) 98 06/21/18 00:30 98.1 75 14 104/42 (62) 98 06/21/18 00:00 77 21 111/48 (69) 97 06/21/18 00:00 79 06/21/18 00:00 Nasal Cannula 2.0 06/20/18 23:30 78 19 98/40 (59) 97 06/20/18 23:00 72 20 104/72 (83) 100 06/20/18 22:00 68 16 102/40 (60) 98 06/20/18 21:30 70 17 102/40 (60) 100 06/20/18 21:00 68 20 102/40 (60) 100 06/20/18 20:30 68 19 104/38 (60) 99 06/20/18 20:00 98.3 77 19 102/42 (62) 100 06/20/18 20:00 86 06/20/18 20:00 Nasal Cannula 2.0 06/20/18 19:41 99 Nasal Cannula 2.0 28 06/20/18 19:41 Nasal Cannula 2.0 28 06/20/18 19:30 78 20 99/68 (78) 100 06/20/18 19:00 97/71 06/20/18 19:00 90 20 97/71 (80) 100 11/27/18 18:30 90 20 97/71 (80) 100 06/20/18 18:30 97/71 06/20/18 18:00 93/70 06/20/18 18:00 75 19 93/70 (78) 100 06/20/18 17:45 63 20 57/36 (43) 100 06/20/18 17:45 57/36 06/20/18 17:30 63 20 57/36 (43) 100 06/20/18 17:30 57/36 06/20/18 17:15 63 20 57/36 (43) 100 06/20/18 17:15 57/36 06/20/18 17:00 65/35 06/20/18 17:00 65/35 06/20/18 17:00 60 18 65/35 (45) 100 06/20/18 16:15 100/43 06/20/18 16:15 70 18 100/43 (62) 99 06/20/18 16:00 60 06/20/18 16:00 Nasal Cannula 2.0 06/20/18 16:00 98.0 72 20 98/42 (60) 100 06/20/18 15:30 62 18 81/34 (50) 99 06/20/18 15:15 91/48 06/20/18 15:00 65 18 126/71 (89) 99 06/20/18 15:00 126/71 06/20/18 14:55 115/50 06/20/18 14:30 70 19 126/71 (89) 100 Intake and Output 06/20/18 06/21/18 19:00 07:00 Intake Total 406.875 ml 283.75 ml Balance 406.875 ml 283.75 ml Intake Oral 100 ml 190 ml IV Total 306.875 ml 93.75 ml # Bowel Movements 2 3 Height (Feet): 5 Height (Inches): 6.00 Weight (Pounds): 223 General Appearance: alert, confused, agitated Abelardo Yadav MD Jun 21, 2018 14:02
[2018-06-21] MEDS ORDERED: Tubing IV Secondary IV ONE (15:48)
[2018-06-21] MEDS ORDERED: NS 275ml ONE (15:48)
--- NOTE | 2018-06-21 16:00 | NUR ---
NURSE NOTES: Pt stable and changed. will continue plan of care.
--- NOTE | 2018-06-21 17:16 | Cardiology Report ---
APPROVED REPORT EKG Measurement Heart [id number] Normal sinus rhythm Low voltage QRS Borderline ECG
--- NOTE | 2018-06-21 19:01 | NUR ---
HAND-OFF: Report given to CHAPIS Anderson.
--- NOTE | 2018-06-21 19:30 | NUR ---
NURSE NOTES: Recvd.asleep,Resp.unlabored on 3l/NC inh.Sat-99-100%.See V/S.Scope SR.Dopa.drip inf. at 2mcg/kg/min.(L) PICC.Cont.Ca.monitoring.AVF (R) upperarm pos.thrill and Bruit.S/P HD (-2L) today.
[2018-06-21] MEDS: Dyna-Hex 2% Top Sol 2oz TOPIC SCH (19:38)
--- NOTE | 2018-06-21 21:47 | Cardiology Progress Note ---
Assessment/Plan Assessment/Plan very difficult patient to manage considering congestive heart failure, severe mitral regurgitation, and hypotension. Hopefully, will be weaned slowly Subjective Subjective unfortunately, no progress, remains on Dopamine, not weaned, she has orthopnea and cannot lie down flat, denies chest pain Objective Last 24 Hour Vital Signs Date Time Temp Pulse Resp B/P (MAP) Pulse Ox O2 Delivery O2 Flow Rate FiO2 06/21/18 20:00 98.8 69 14 99/43 (61) 100 06/21/18 20:00 Nasal Cannula 2.0 06/21/18 20:00 69 06/21/18 19:35 Nasal Cannula 2.0 28 06/21/18 19:35 99 Nasal Cannula 2.0 28 06/21/18 19:30 70 14 101/40 (60) 100 06/21/18 19:00 80 21 112/35 (60) 97 06/21/18 18:30 79 21 110/38 (62) 97 06/21/18 18:00 85 21 107/42 (63) 97 06/21/18 17:30 80 21 105/35 (58) 97 06/21/18 17:00 81 21 110/38 (62) 97 06/21/18 16:30 80 21 109/38 (61) 97 06/21/18 16:00 Nasal Cannula 2.0 06/21/18 16:00 82 06/21/18 16:00 98.2 79 16 125/46 (72) 99 06/21/18 15:30 85 21 122/38 (66) 97 06/21/18 15:00 82 21 126/41 (69) 97 06/21/18 14:30 80 21 111/40 (63) 97 06/21/18 14:00 85 21 112/38 (62) 97 06/21/18 13:30 82 21 110/38 (62) 97 06/21/18 13:30 109/38 06/21/18 13:00 85 21 115/39 (64) 97 06/21/18 12:30 98.6 79 16 112/44 (66) 99 06/21/18 12:00 88 06/21/18 12:00 82 21 119/38 (65) 97 06/21/18 12:00 Nasal Cannula 2.0 06/21/18 11:30 79 21 105/52 (69) 97 06/21/18 11:00 74 21 102/50 (67) 97 06/21/18 10:30 79 21 109/51 (70) 97 06/21/18 10:00 80 21 103/50 (67) 97 06/21/18 09:30 74 21 110/35 (60) 97 06/21/18 09:00 75 21 105/49 (67) 97 06/21/18 08:30 74 21 109/52 (71) 97 06/21/18 08:00 Nasal Cannula 2.0 06/21/18 08:00 85 06/21/18 08:00 98.7 79 16 110/44 (66) 99 06/21/18 07:30 74 21 102/50 (67) 97 06/21/18 07:00 Nasal Cannula 2.0 28 06/21/18 07:00 99 Nasal Cannula 2.0 28 06/21/18 07:00 74 21 102/50 (67) 97 06/21/18 06:30 74 20 101/75 (84) 98 06/21/18 06:00 73 17 66/35 (45) 97 06/21/18 05:30 66 19 71/31 (44) 97 06/21/18 05:00 78 19 113/39 (63) 98 06/21/18 04:30 78 19 108/28 (54) 99 06/21/18 04:00 98.7 79 16 105/44 (64) 99 06/21/18 04:00 Nasal Cannula 2.0 06/21/18 04:00 82 06/21/18 03:30 78 19 99/36 (57) 98 06/21/18 03:00 74 15 110/33 (58) 100 06/21/18 02:30 76 15 109/40 (63) 100 06/21/18 02:00 78 18 108/42 (64) 98 06/21/18 01:30 78 20 102/40 (60) 98 06/21/18 01:00 74 21 99/32 (54) 98 06/21/18 00:30 98.1 75 14 104/42 (62) 98 06/21/18 00:00 77 21 111/48 (69) 97 06/21/18 00:00 79 06/21/18 00:00 Nasal Cannula 2.0 06/20/18 23:30 78 19 98/40 (59) 97 06/20/18 23:00 72 20 104/72 (83) 100 06/20/18 22:00 68 16 102/40 (60) 98 General Appearance: other - ill appearing Neck: JVD - is high Rhythm: NSR Cardiovascular: systolic murmur - holosystoliic murmur on apex, III/ Respiratory/Chest: crackles/rales Abdomen: distended Intake and Output 06/20/18 06/21/18 19:00 07:00 Intake Total 406.875 ml 283.75 ml Balance 406.875 ml 283.75 ml Intake Oral 100 ml 190 ml IV Total 306.875 ml 93.75 ml # Bowel Movements 2 3 Clarisse Daley MD Jun 21, 2018 21:47
--- NOTE | 2018-06-21 22:00 | NUR ---
NURSE NOTES: HS care provided.Backrub with Lotion.Pos.to comfort.Due medical staff services manager.no distress.
[2018-06-22] VITALS (53 sets, daily range): BP systolic 64–144; BP diastolic 23–72
--- NOTE | 2018-06-22 00:10 | NUR ---
NURSE NOTES: Pos.chg.Stated feels better.See V/S.Scope rhythm same.Denies CP.Cont.ca.monitorig.
[2018-06-22] MEDS: Acetaminophen 500mg (ES) tab ORAL PRN ×3 (01:33→22:31)
--- NOTE | 2018-06-22 02:30 | NUR ---
NURSE NOTES: Repositioned,Kept comfortable.Status same.
--- NOTE | 2018-06-22 04:00 | NUR ---
NURSE NOTES: DOPA.drip taper down 1mg/kg/min.See V/Braeden.Shyam Sanabria.No Resp.distress.
[2018-06-22] MEDS: NovoLOG Insulin Flexpen SUBQ SCH ×4 (06:09→20:49)
[2018-06-22] MEDS: Aspirin Baby 81mg ORAL SCH (09:13)
[2018-06-22] MEDS: Multivitamin w/Minerals tab ORAL SCH (09:14)
[2018-06-22] MEDS: Heparin 5000 units/ml inj SUBQ SCH ×2 (09:17→20:48)
--- NOTE | 2018-06-22 09:59 | Nephrology Progress Note ---
Assessment/Plan Plan Hypotension - R/O new sepsis - on IV Abx per ID. DC'ed all meds with potential to lower BP. L heel ulcer - Podiatry following. 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 Heel Ulcer - local care. Cardiac Status reviewed with Dr. Daley. 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 Pt. not a candidate for MVR due to overall condition. May be a candidate for TVR if stable. Currently unstable. Trying to taper off Dopamine. HD today. On HD now. Stable run. DW HD RN. OK for a PICC line. Subjective Subjective In ICU due to hypotension. Still on dopamine drip. Trying to taper off. Intermittent success. On Dopamine drip @ <1 mcgm/Kg/Min. No new c/o. Delusional Objective Objective Last 24 Hour Vital Signs Date Time Temp Pulse Resp B/P (MAP) Pulse Ox O2 Delivery O2 Flow Rate FiO2 06/22/18 09:00 98/41 06/22/18 09:00 67 20 98/41 (60) 100 06/22/18 08:30 68 20 100/44 (62) 98 06/22/18 08:00 97.5 66 17 116/51 (72) 96 06/22/18 08:00 Nasal Cannula 2.0 06/22/18 08:00 116/51 06/22/18 08:00 66 06/22/18 07:30 66 18 103/45 (64) 97 06/22/18 07:00 103/38 06/22/18 07:00 65 15 103/38 (59) 97 06/22/18 06:30 65 15 101/35 (57) 100 06/22/18 06:00 64 14 94/39 (57) 100 06/22/18 05:30 61 15 95/26 (49) 98 06/22/18 05:00 61 14 88/27 (47) 100 06/22/18 04:30 62 14 79/23 (41) 100 06/22/18 04:00 64 06/22/18 04:00 Nasal Cannula 2.0 06/22/18 04:00 98.7 64 15 86/27 (46) 100 06/22/18 03:30 71 19 99/42 (61) 100 06/22/18 03:00 69 16 97/40 (59) 100 11/29/18 02:30 69 15 99/39 (59) 100 06/22/18 02:10 98.6 06/22/18 02:00 70 15 98/42 (60) 100 06/22/18 01:30 73 20 104/53 (70) 100 06/22/18 01:00 73 18 102/42 (62) 100 06/22/18 00:30 73 18 112/49 (70) 100 06/22/18 00:00 Nasal Cannula 2.0 06/22/18 00:00 71 06/22/18 00:00 98.3 70 16 101/47 (65) 100 06/21/18 23:30 70 16 103/47 (65) 100 06/21/18 23:00 71 14 100/47 (64) 100 06/21/18 22:30 71 16 102/45 (64) 100 06/21/18 22:00 72 20 116/45 (68) 100 06/21/18 21:30 72 18 118/48 (71) 99 06/21/18 21:00 70 17 108/52 (70) 99 06/21/18 20:30 68 15 101/44 (63) 99 06/21/18 20:00 98.8 69 14 99/43 (61) 100 06/21/18 20:00 Nasal Cannula 2.0 06/21/18 20:00 69 06/21/18 19:35 Nasal Cannula 2.0 28 06/21/18 19:35 99 Nasal Cannula 2.0 28 06/21/18 19:30 70 14 101/40 (60) 100 06/21/18 19:00 80 21 112/35 (60) 97 06/21/18 18:30 79 21 110/38 (62) 97 06/21/18 18:00 85 21 107/42 (63) 97 06/21/18 17:30 80 21 105/35 (58) 97 06/21/18 17:00 81 21 110/38 (62) 97 06/21/18 16:30 80 21 109/38 (61) 97 06/21/18 16:00 Nasal Cannula 2.0 06/21/18 16:00 82 06/21/18 16:00 98.2 79 16 125/46 (72) 99 06/21/18 15:30 85 21 122/38 (66) 97 06/21/18 15:00 82 21 126/41 (69) 97 06/21/18 14:30 80 21 111/40 (63) 97 06/21/18 14:00 85 21 112/38 (62) 97 06/21/18 13:30 82 21 110/38 (62) 97 06/21/18 13:30 109/38 06/21/18 13:00 85 21 115/39 (64) 97 06/21/18 12:30 98.6 79 16 112/44 (66) 99 06/21/18 12:00 88 06/21/18 12:00 82 21 119/38 (65) 97 06/21/18 12:00 Nasal Cannula 2.0 06/21/18 11:30 79 21 105/52 (69) 97 06/21/18 11:00 74 21 102/50 (67) 97 06/21/18 10:30 79 21 109/51 (70) 97 06/21/18 10:00 80 21 103/50 (67) 97 Intake and Output 06/21/18 06/22/18 18:59 06:59 Intake Total 487.5 ml 228.00 ml Output Total 2500 ml Balance -2012.5 ml 228.00 ml Intake Oral 350 ml 160 ml IV Total 137.5 ml 68.00 ml Hemodialysis UF 2500 ml # Bowel Movements 1 3 Height (Feet): 5 Height (Inches): 6.00 Weight (Pounds): 231 Objective Blind Cv RR Lungs CTA Abd SNT. BS + E Rt AKA stump clean. Lt. deep heel ulcer. Neuro A+ O . @ times delusional Brenda Fuller MD Jun 22, 2018 09:59
[2018-06-22] MEDS ORDERED: Heparin Sod 1000 units/ml 10ml IV PRN (10:01)
[2018-06-22] MEDS ORDERED: Heparin 1000 units/ml 1ml Vial INJ PRN (10:02)
--- NOTE | 2018-06-22 10:11 | Infectious Diseases Prog Note ---
Assessment/Plan Assessment/Plan A; Calcaneal osteomyelitis DM ESRD on HD AMS PVD Diabetic retinopathy Mitral & Tricuspid regurgitation Elevated troponin Hypotension improving P; continue Meropenem X 34 days Subjective ROS Limited/Unobtainable: Yes Constitutional: Reports: no symptoms Allergies: Coded Allergies: BENAZEPRIL (Verified Allergy, Unknown, 06/12/18) CODEINE (Verified Allergy, Unknown, 06/12/18) INSULIN ASPART (Verified Allergy, Unknown, 06/12/18) INSULIN DETEMIR (Verified Allergy, Unknown, 06/12/18) OPIOIDS - MORPHINE ANALOGUES (Verified Allergy, Unknown, 06/12/18) Objective Vital Signs Last 24 Hour Vital Signs Date Time Temp Pulse Resp B/P (MAP) Pulse Ox O2 Delivery O2 Flow Rate FiO2 06/22/18 09:00 98/41 06/22/18 09:00 67 20 98/41 (60) 100 06/22/18 08:30 68 20 100/44 (62) 98 06/22/18 08:00 97.5 66 17 116/51 (72) 96 06/22/18 08:00 Nasal Cannula 2.0 06/22/18 08:00 116/51 06/22/18 08:00 66 06/22/18 07:30 66 18 103/45 (64) 97 06/22/18 07:00 103/38 06/22/18 07:00 65 15 103/38 (59) 97 06/22/18 06:30 65 15 101/35 (57) 100 06/22/18 06:00 64 14 94/39 (57) 100 06/22/18 05:30 61 15 95/26 (49) 98 06/22/18 05:00 61 14 88/27 (47) 100 06/22/18 04:30 62 14 79/23 (41) 100 06/22/18 04:00 64 06/22/18 04:00 Nasal Cannula 2.0 06/22/18 04:00 98.7 64 15 86/27 (46) 100 06/22/18 03:30 71 19 99/42 (61) 100 06/22/18 03:00 69 16 97/40 (59) 100 06/22/18 02:30 69 15 99/39 (59) 100 06/22/18 02:10 98.6 11/29/18 02:00 70 15 98/42 (60) 100 06/22/18 01:30 73 20 104/53 (70) 100 06/22/18 01:00 73 18 102/42 (62) 100 06/22/18 00:30 73 18 112/49 (70) 100 06/22/18 00:00 Nasal Cannula 2.0 06/22/18 00:00 71 06/22/18 00:00 98.3 70 16 101/47 (65) 100 06/21/18 23:30 70 16 103/47 (65) 100 06/21/18 23:00 71 14 100/47 (64) 100 06/21/18 22:30 71 16 102/45 (64) 100 06/21/18 22:00 72 20 116/45 (68) 100 06/21/18 21:30 72 18 118/48 (71) 99 06/21/18 21:00 70 17 108/52 (70) 99 06/21/18 20:30 68 15 101/44 (63) 99 06/21/18 20:00 98.8 69 14 99/43 (61) 100 06/21/18 20:00 Nasal Cannula 2.0 06/21/18 20:00 69 06/21/18 19:35 Nasal Cannula 2.0 28 06/21/18 19:35 99 Nasal Cannula 2.0 28 06/21/18 19:30 70 14 101/40 (60) 100 06/21/18 19:00 80 21 112/35 (60) 97 06/21/18 18:30 79 21 110/38 (62) 97 06/21/18 18:00 85 21 107/42 (63) 97 06/21/18 17:30 80 21 105/35 (58) 97 06/21/18 17:00 81 21 110/38 (62) 97 06/21/18 16:30 80 21 109/38 (61) 97 06/21/18 16:00 Nasal Cannula 2.0 06/21/18 16:00 82 06/21/18 16:00 98.2 79 16 125/46 (72) 99 06/21/18 15:30 85 21 122/38 (66) 97 06/21/18 15:00 82 21 126/41 (69) 97 06/21/18 14:30 80 21 111/40 (63) 97 11/28/18 14:00 85 21 112/38 (62) 97 06/21/18 13:30 82 21 110/38 (62) 97 06/21/18 13:30 109/38 06/21/18 13:00 85 21 115/39 (64) 97 06/21/18 12:30 98.6 79 16 112/44 (66) 99 06/21/18 12:00 88 06/21/18 12:00 82 21 119/38 (65) 97 06/21/18 12:00 Nasal Cannula 2.0 06/21/18 11:30 79 21 105/52 (69) 97 06/21/18 11:00 74 21 102/50 (67) 97 06/21/18 10:30 79 21 109/51 (70) 97 Height (Feet): 5 Height (Inches): 6.00 Weight (Pounds): 231 General Appearance: no acute distress HEENT: mucous membranes moist Respiratory/Chest: lungs clear Cardiovascular: normal rate Abdomen: soft, non tender Extremities: other - edema of legs, R BKA Neurologic/Psychiatric: other - sleeping Current Medications Medications (Trade) Dose Ordered Sig/Andre Route PRN Reason Start Time Stop Time Status Last Admin Dose Admin Acetaminophen (Tylenol) 500 mg Q6H PRN ORAL Mild Pain/Temp > 100.5 06/16/18 02:15 07/13/18 08:14 06/22/18 01:33 Aspirin (ASA) 81 mg DAILY ORAL 06/16/18 09:00 07/13/18 08:59 06/22/18 09:13 Atorvastatin Calcium (Lipitor) 10 mg BEDTIME ORAL 06/16/18 21:00 07/13/18 20:59 06/21/18 20:48 Chlorhexidine Gluconate (Fabiola-Hex 2%) 1 applic DAILY@1999 TOPIC 06/18/18 20:00 07/18/18 19:59 06/21/18 19:38 Collagenase (Santyl) 1 applic DAILY TOPIC 06/16/18 09:00 07/13/18 08:59 06/22/18 09:14 Dextrose (Dextrose 50%) 25 ml Q30M PRN IV Hypoglycemia 06/17/18 20:15 07/17/18 20:14 Dextrose (Dextrose 50%) 50 ml Q30M PRN IV Hypoglycemia 06/17/18 20:15 07/17/18 20:14 Dopamine HCl/ Dextrose 250 ml @ 0 mls/hr Q24H IV 06/19/18 11:30 07/19/18 11:29 06/21/18 13:30 Haloperidol Lactate (Haldol) 5 mg Q6H PRN IM Agitation 06/21/18 13:15 07/21/18 13:14 Heparin Sodium (Porcine) (Heparin 5000 units/ml) 5,000 units EVERY 12 HOURS SUBQ 06/16/18 09:00 07/13/18 08:59 06/22/18 09:17 Heparin Sodium (Porcine) (Heparin Sod 1000 units/ml 10ml) 2,000 unit ONCE PRN IV DIALYSIS 06/22/18 10:01 06/23/18 23:59 Heparin Sodium (Porcine) (Heparin) 1,000 unit POSTHD PRN INJ POST HD 06/22/18 10:02 06/23/18 23:59 Insulin Aspart (NovoLOG) BEFORE MEALS AND HS SUBQ 06/17/18 21:00 07/17/18 20:59 06/20/18 20:50 Loperamide HCl (Imodium) 4 mg Q4H PRN ORAL diarrhea 06/16/18 03:45 07/14/18 15:40 Lorazepam (Ativan 2mg/ml 1ml) 2 mg Q4H PRN IV For Anxiety 06/21/18 13:15 06/28/18 13:14 Meropenem 500 mg/ Sodium Chloride 55 ml @ 110 mls/hr Q24H IVPB 06/16/18 14:00 06/24/18 13:59 06/21/18 14:00 Multivitamins Therapeutic (Therapeutic Multivitamin) 1 ea DAILY ORAL 06/16/18 09:00 07/13/18 08:59 06/22/18 09:14 Pantoprazole (Protonix) 40 mg DAILY ORAL 06/16/18 09:00 07/13/18 08:59 06/22/18 09:14 Sodium Chloride 1,000 ml @ 500 mls/hr Q2H PRN IVLG sbp<90 during hd 06/22/18 10:01 06/23/18 23:59 Joe Melgar MD Jun 22, 2018 10:11
--- NOTE | 2018-06-22 10:15 | NUR ---
NURSE NOTES: Patient had a moderate bowel movement, consistency is soft with brown color, patient remains awake and tolerated moving in bed with minimal assistance,
--- NOTE | 2018-06-22 11:30 | NUR ---
NURSE NOTES: Son at the bedside and updated about care, patient remains awake and talkative to name and place, she denies any pain, and remains on dopamine at 1mcg/kg/min.
--- NOTE | 2018-06-22 12:19 | NUR ---
NURSE NOTES: Patient dopamine titrated to 0.5mcg/kg/min, patient BP is 98/38 with HR at 62, she remains awake and talkative, patient denies any pain, message left with Raiza from IR regarding patient hemodialysis order.
[2018-06-22] MEDS: Loperamide 2mg cap ORAL PRN (12:29)
--- NOTE | 2018-06-22 12:40 | NUR ---
Social Service Note Patient is alert, oriented and verbally responsive. Patient has been a resident of [facility] since 03/24/18. Patient receives dialysis at [facility] [phone] T,TH,Sat at 10am. POLST completed by patient indicating full code, full treatment and intermediate artificial nutrition. Patient continues to maintain an apartment which she hopes to return too. Patient's next of kin is her dgt Myrtle Horne, . Patient is anticipated to return to SNF upon discharge. Addendum: 06/22/18 at 1306 by JALEESA KUHN Patient doesn't have an advance directive and is a full code.
[2018-06-22] MEDS: Meropenem 500 MG in NS 55 ML IVPB SCH (14:22)
--- NOTE | 2018-06-22 14:30 | NUR ---
NURSE NOTES: Patient medication given and antibiotic infused through PICC line, PICC line remains intact with no swelling or leaking noted, Line remains TKO when not used, will continue plan of care.
--- NOTE | 2018-06-22 15:45 | NUR ---
NURSE NOTES: patient remains talkative and awake, responds accurately and coherently to questions, moderate BM consisting of yellow brown color with foul odor, Dopamine is placed on hold and patient denies any dizziness, she remains in sinus rhythm with no arrhythmias noted.
[2018-06-22] MEDS ORDERED: NS 275ml ONE (16:58)
[2018-06-22] MEDS ORDERED: Tubing IV Secondary IV ONE (16:58)
--- NOTE | 2018-06-22 17:53 | NUR ---
CASE MANAGEMENT: REVIEW SI: RENAL FAILURE ON HD T 97.5 HR 56 RR 20 BP 82/65 SAT 99% NC/2L IS: MEROPENEM IV Q24HR DOPAMINE IV Q24HR HEPARIN IV PRN NOVOLOG SQ AC/HS ICU STATUS DCP: PATIENT IS FROM [facility]
--- NOTE | 2018-06-22 18:36 | NUR ---
NURSE NOTES: patient is eating with minimal assistance, patient is talkative and with no delay or slur, she denies any pain at this time, wounds dressing changed on sacral, and lower buttocks, she denies any dizziness with dopamine placed on hold with BP of 87/43 and hr at 56.
--- NOTE | 2018-06-22 18:43 | NUR ---
NURSE NOTES: [facility] called to inform regarding hemodialysis order for 06/23/18, awaiting for hemodialysis satellite project site monitor nurse return call.
--- NOTE | 2018-06-22 19:18 | NUR ---
HAND-OFF: Report given to CHAPIS Ferguson.
--- NOTE | 2018-06-22 19:31 | NUR ---
NURSE NOTES: CALLED [facility] BY DAY SHIFT DANDY/CHAPIS THAT KARSTEN WAS AWARE
[2018-06-22] MEDS: Dyna-Hex 2% Top Sol 2oz TOPIC SCH (19:40)
--- NOTE | 2018-06-22 19:40 | NUR ---
NURSE NOTES: PATIENT ALERT, ORIENTED, FORGETFUL, FOLLOWED COMMANDS, RIGHT EYE OPACITY, LEGALLY BLIND STATUS, RESPIRATION REGULAR ON O2 2LPM VIA NC, ABDOMEN SOFT, NON TENDER, HYPERACTIVE BOWEL SOUND X4 QUADRANTS, RIGHT BKA, AV SHUNT TO RIGHT UPPER ARM, PALPABLE THRILL, BRUIT, 3 LUMEN PICC LINE TO LEFT UPPER ARM, INTACT AND PATENT, ON P200 BED, MADE LOWER BED POSITION, PROVIDED CALL LIGHT WITHIN REACH, WILL CONTINUE TO MONITOR.
[2018-06-22] MEDS: DOPamine 400mg/250ml 250 ML IV SCH (20:10)
--- NOTE | 2018-06-22 20:10 | NUR ---
NURSE NOTES: BP 68/26 NOTED, STARTED DOPAMINE 2MCG/KG/MIN ORDERED, WILL CONTINUE TO MONITOR.
--- NOTE | 2018-06-22 22:31 | NUR ---
NURSE NOTES: GIVEN TYLENOL 500MG BY PO PRN FOR PAIN 3/10, WILL CONTINUE TO MONITOR.
--- NOTE | 2018-06-22 23:00 | General Progress Note ---
Assessment/Plan Problem List: (1) Encephalopathy acute ICD Codes: G93.40 - Encephalopathy, unspecified SNOMED: 31432907, [id number] Assessment/Plan the pt lacks capacity to refuse medications the pt lacks capacity to leave ama haldol prn ativan prn soft restraints. Subjective Neurologic/Psychiatric: Reports: anxiety, depressed, emotional problems Allergies: Coded Allergies: BENAZEPRIL (Verified Allergy, Unknown, 06/12/18) CODEINE (Verified Allergy, Unknown, 06/12/18) INSULIN ASPART (Verified Allergy, Unknown, 06/12/18) INSULIN DETEMIR (Verified Allergy, Unknown, 06/12/18) OPIOIDS - MORPHINE ANALOGUES (Verified Allergy, Unknown, 06/12/18) Objective Last 24 Hour Vital Signs Date Time Temp Pulse Resp B/P (MAP) Pulse Ox O2 Delivery O2 Flow Rate FiO2 06/22/18 22:00 120/68 06/22/18 22:00 72 18 120/68 (85) 96 06/22/18 21:45 71 17 64/52 (56) 94 06/22/18 21:45 64/52 06/22/18 21:30 69 19 93/72 (79) 94 06/22/18 21:15 82 21 87/52 (64) 96 06/22/18 21:00 86 20 144/46 (78) 97 06/22/18 21:00 144/46 06/22/18 20:45 85 19 136/55 (82) 97 06/22/18 20:30 75 18 123/53 (76) 98 06/22/18 20:15 60 18 66/32 (43) 98 06/22/18 20:10 68/26 06/22/18 20:00 97.5 62 18 68/26 (40) 98 06/22/18 19:30 59 18 75/42 (53) 98 06/22/18 19:25 99 Nasal Cannula 2.0 28 06/22/18 19:25 Nasal Cannula 2.0 28 06/22/18 19:00 57 18 81/33 (49) 99 06/22/18 18:00 56 19 84/35 (51) 99 06/22/18 17:00 56 19 82/65 (71) 100 06/22/18 16:00 97.5 58 17 88/48 (61) 99 06/22/18 16:00 Nasal Cannula 2.0 06/22/18 16:00 59 06/22/18 15:30 60 20 89/32 (51) 96 06/22/18 15:00 61 18 82/42 (55) 97 06/22/18 14:30 62 19 87/37 (54) 98 06/22/18 14:00 64 22 103/40 (61) 98 06/22/18 14:00 103/40 06/22/18 13:30 65 17 104/33 (56) 98 06/22/18 13:00 105/29 06/22/18 13:00 62 17 105/29 (54) 98 06/22/18 12:30 62 19 98/42 (60) 93 06/22/18 12:00 Nasal Cannula 2.0 06/22/18 12:00 64 06/22/18 12:00 98/38 06/22/18 12:00 97.4 63 17 98/38 (58) 98 06/22/18 11:30 66 18 105/46 (65) 98 06/22/18 11:00 105/57 06/22/18 11:00 66 18 105/57 (73) 98 06/22/18 10:30 66 18 95/42 (59) 98 06/22/18 10:00 64 15 96/40 (58) 97 06/22/18 09:30 65 15 114/41 (65) 99 06/22/18 09:00 98/41 06/22/18 09:00 67 20 98/41 (60) 100 06/22/18 08:30 68 20 100/44 (62) 98 06/22/18 08:00 97.5 66 17 116/51 (72) 96 06/22/18 08:00 Nasal Cannula 2.0 06/22/18 08:00 116/51 06/22/18 08:00 66 06/22/18 07:30 66 18 103/45 (64) 97 06/22/18 07:00 103/38 06/22/18 07:00 65 15 103/38 (59) 97 06/22/18 06:30 65 15 101/35 (57) 100 06/22/18 06:00 64 14 94/39 (57) 100 06/22/18 05:30 61 15 95/26 (49) 98 11/29/18 05:00 61 14 88/27 (47) 100 06/22/18 04:30 62 14 79/23 (41) 100 06/22/18 04:00 64 06/22/18 04:00 Nasal Cannula 2.0 06/22/18 04:00 98.7 64 15 86/27 (46) 100 06/22/18 03:30 71 19 99/42 (61) 100 06/22/18 03:00 69 16 97/40 (59) 100 06/22/18 02:30 69 15 99/39 (59) 100 06/22/18 02:10 98.6 06/22/18 02:00 70 15 98/42 (60) 100 06/22/18 01:30 73 20 104/53 (70) 100 06/22/18 01:00 73 18 102/42 (62) 100 06/22/18 00:30 73 18 112/49 (70) 100 06/22/18 00:00 Nasal Cannula 2.0 06/22/18 00:00 71 06/22/18 00:00 98.3 70 16 101/47 (65) 100 06/21/18 23:30 70 16 103/47 (65) 100 06/21/18 23:00 71 14 100/47 (64) 100 Intake and Output 06/21/18 06/22/18 19:00 07:00 Intake Total 495.0 ml 224.25 ml Output Total 2500 ml Balance -2005.0 ml 224.25 ml Intake Oral 350 ml 160 ml IV Total 145.0 ml 64.25 ml Hemodialysis UF 2500 ml # Bowel Movements 1 3 Height (Feet): 5 Height (Inches): 6.00 Weight (Pounds): 231 General Appearance: alert, lethargic - waxing and waning , confused Abelardo Yadav MD Jun 22, 2018 23:00
--- NOTE | 2018-06-22 23:30 | NUR ---
NURSE NOTES: PATIENT ASLEEP STATUS, NO SOB OR DISTRESS NOTED AT THIS TIME.
[2018-06-23] VITALS (47 sets, daily range): BP systolic 75–137; BP diastolic 30–62
[2018-06-23] MEDS: LORazepam Inj 2mg/ml 1ml IV PRN ×2 (00:55→22:40)
--- NOTE | 2018-06-23 00:55 | NUR ---
NURSE NOTES: PATIENT ANXIOUS STATUS, GIVEN ATIVAN 2MG BY IVP SLOWLY PRN ORDERED, WILL CONTINUE TO MONITOR.
--- NOTE | 2018-06-23 03:00 | NUR ---
NURSE NOTES: ASLEEP STATUS, NO SOB OR PAIN NOTED, WILL CONTINUE TO MONITOR.
--- NOTE | 2018-06-23 04:30 | NUR ---
NURSE NOTES: MORNING CARE WAS DONE.
[2018-06-23] MEDS: NovoLOG Insulin Flexpen SUBQ SCH ×4 (06:30→20:35)
--- NOTE | 2018-06-23 06:30 | NUR ---
NURSE NOTES: NO ACUTE DISTRESS NOTED AT THIS SHIFT.
--- NOTE | 2018-06-23 07:18 | NUR ---
HAND-OFF: Report given to DANDY/CHAPIS.
--- NOTE | 2018-06-23 07:39 | Nephrology Progress Note ---
Assessment/Plan Plan Hypotension - R/O new sepsis - on IV Abx per ID. DC'ed all meds with potential to lower BP. L heel ulcer - Podiatry following. 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 Heel Ulcer - local care. Cardiac Status reviewed with Dr. Daley. 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 Pt. not a candidate for MVR due to overall condition. May be a candidate for TVR if stable. Currently unstable. Trying to taper off Dopamine. HD today. On HD now. Stable run. DW HD RN. OK for a PICC line. Subjective Subjective In ICU due to hypotension. Still on dopamine drip. Trying to taper off. Intermittent success. Nocturnal hypotension. Using large cuff on lower leg. On Dopamine drip @ <1 mcgm/Kg/Min. No new c/o. Delusional Objective Objective Last 24 Hour Vital Signs Date Time Temp Pulse Resp B/P (MAP) Pulse Ox O2 Delivery O2 Flow Rate FiO2 06/23/18 07:00 70 14 103/39 (60) 99 06/23/18 06:30 70 15 100/43 (62) 98 06/23/18 06:00 69 15 96/40 (58) 98 06/23/18 06:00 96/40 06/23/18 05:30 70 14 95/42 (59) 98 06/23/18 05:00 107/40 06/23/18 05:00 71 18 107/40 (62) 97 06/23/18 04:30 72 19 104/42 (62) 96 06/23/18 04:07 69 06/23/18 04:00 96/37 06/23/18 04:00 Nasal Cannula 2.0 06/23/18 04:00 97.5 69 15 96/37 (56) 99 06/23/18 03:30 69 15 90/37 (54) 99 06/23/18 03:00 69 15 99/37 (57) 98 06/23/18 03:00 99/37 06/23/18 02:30 68 15 99/46 (63) 99 06/23/18 02:00 69 15 92/38 (56) 98 06/23/18 02:00 92/38 06/23/18 01:30 71 14 93/33 (53) 98 06/23/18 01:00 75 18 115/51 (72) 96 06/23/18 01:00 115/51 06/23/18 00:30 72 13 100/45 (63) 98 06/23/18 00:00 Nasal Cannula 2.0 06/23/18 00:00 97.5 74 13 103/49 (67) 98 06/23/18 00:00 103/49 06/22/18 23:51 74 06/22/18 23:45 76 16 99/44 (62) 98 06/22/18 23:30 76 14 110/48 (68) 98 06/22/18 23:15 77 14 107/45 (65) 98 06/22/18 23:00 78 22 113/47 (69) 98 06/22/18 23:00 113/47 06/22/18 22:45 79 18 113/47 (69) 97 06/22/18 22:30 79 17 125/54 (77) 96 06/22/18 22:15 78 18 113/49 (70) 96 06/22/18 22:00 120/68 06/22/18 22:00 72 18 120/68 (85) 96 06/22/18 21:45 71 17 64/52 (56) 94 06/22/18 21:45 64/52 06/22/18 21:30 69 19 93/72 (79) 94 06/22/18 21:15 82 21 87/52 (64) 96 06/22/18 21:00 86 20 144/46 (78) 97 06/22/18 21:00 144/46 06/22/18 20:45 85 19 136/55 (82) 97 06/22/18 20:30 75 18 123/53 (76) 98 06/22/18 20:15 60 18 66/32 (43) 98 06/22/18 20:10 68/26 06/22/18 20:00 97.5 62 18 68/26 (40) 98 06/22/18 20:00 Nasal Cannula 2.0 06/22/18 19:31 58 06/22/18 19:30 59 18 75/42 (53) 98 06/22/18 19:25 99 Nasal Cannula 2.0 28 06/22/18 19:25 Nasal Cannula 2.0 28 06/22/18 19:00 57 18 81/33 (49) 99 06/22/18 18:00 56 19 84/35 (51) 99 06/22/18 17:00 56 19 82/65 (71) 100 06/22/18 16:00 97.5 58 17 88/48 (61) 99 06/22/18 16:00 Nasal Cannula 2.0 06/22/18 16:00 59 06/22/18 15:30 60 20 89/32 (51) 96 06/22/18 15:00 61 18 82/42 (55) 97 06/22/18 14:30 62 19 87/37 (54) 98 06/22/18 14:00 64 22 103/40 (61) 98 06/22/18 14:00 103/40 06/22/18 13:30 65 17 104/33 (56) 98 06/22/18 13:00 105/29 06/22/18 13:00 62 17 105/29 (54) 98 06/22/18 12:30 62 19 98/42 (60) 93 06/22/18 12:00 Nasal Cannula 2.0 06/22/18 12:00 64 06/22/18 12:00 98/38 06/22/18 12:00 97.4 63 17 98/38 (58) 98 06/22/18 11:30 66 18 105/46 (65) 98 06/22/18 11:00 105/57 06/22/18 11:00 66 18 105/57 (73) 98 06/22/18 10:30 66 18 95/42 (59) 98 06/22/18 10:00 64 15 96/40 (58) 97 06/22/18 09:30 65 15 114/41 (65) 99 06/22/18 09:00 98/41 06/22/18 09:00 67 20 98/41 (60) 100 06/22/18 08:30 68 20 100/44 (62) 98 06/22/18 08:00 97.5 66 17 116/51 (72) 96 06/22/18 08:00 Nasal Cannula 2.0 06/22/18 08:00 116/51 06/22/18 08:00 66 Intake and Output 06/22/18 06/23/18 19:00 07:00 Intake Total 1312.500 ml 290.5 ml Balance 1312.500 ml 290.5 ml Intake Oral 1225 ml 220 ml IV Total 77.500 ml 70.5 ml Other 10 ml # Voids 2 # Bowel Movements 4 2 Height (Feet): 5 Height (Inches): 6.00 Weight (Pounds): 220 Objective Blind Cv RR Lungs CTA Abd SNT. BS + E Rt AKA stump clean. Lt. deep heel ulcer. Neuro A+ O . @ times delusional Brenda Fuller MD Jun 23, 2018 07:39
--- NOTE | 2018-06-23 07:45 | NUR ---
NURSE NOTES: Dr. De Leon called to order cmp, cbc and phos during hemodialysis. updated she remains on dopamine and will place order for midodrine, no further orders at this time.
--- NOTE | 2018-06-23 08:50 | Podiatric Progress Note ---
Assessment/Plan Patient Evita Jorge is a 72 year old female who was admitted on Jun 13, 2018 at 01: 43 with Assessment/Plan 1) DM foot ulcer left heel 2) Osteomyelitis left calcaneus 3) DM 4) PAD 5) ESRD 6) Right BKA P/ 1) No acute signs of infection noted. Cont wound care with Santyl daily 2) MRI left ankle without contrast - chronic osteo. Abx per ID 3) Cont off loading boot 4) Will follow Subjective Allergies: Coded Allergies: BENAZEPRIL (Verified Allergy, Unknown, 06/12/18) CODEINE (Verified Allergy, Unknown, 06/12/18) INSULIN ASPART (Verified Allergy, Unknown, 06/12/18) INSULIN DETEMIR (Verified Allergy, Unknown, 06/12/18) OPIOIDS - MORPHINE ANALOGUES (Verified Allergy, Unknown, 06/12/18) Subjective Patient continues to be drowsy Objective Exam Last 24 Hour Vital Signs Date Time Temp Pulse Resp B/P (MAP) Pulse Ox O2 Delivery O2 Flow Rate FiO2 06/23/18 08:00 72 06/23/18 08:00 Nasal Cannula 2.0 06/23/18 07:00 70 14 103/39 (60) 99 06/23/18 06:30 70 15 100/43 (62) 98 06/23/18 06:00 69 15 96/40 (58) 98 06/23/18 06:00 96/40 06/23/18 05:30 70 14 95/42 (59) 98 06/23/18 05:00 107/40 06/23/18 05:00 71 18 107/40 (62) 97 06/23/18 04:30 72 19 104/42 (62) 96 06/23/18 04:07 69 06/23/18 04:00 96/37 06/23/18 04:00 Nasal Cannula 2.0 06/23/18 04:00 97.5 69 15 96/37 (56) 99 06/23/18 03:30 69 15 90/37 (54) 99 06/23/18 03:00 69 15 99/37 (57) 98 06/23/18 03:00 99/37 06/23/18 02:30 68 15 99/46 (63) 99 06/23/18 02:00 69 15 92/38 (56) 98 06/23/18 02:00 92/38 11/30/18 01:30 71 14 93/33 (53) 98 06/23/18 01:00 75 18 115/51 (72) 96 06/23/18 01:00 115/51 06/23/18 00:30 72 13 100/45 (63) 98 06/23/18 00:00 Nasal Cannula 2.0 06/23/18 00:00 97.5 74 13 103/49 (67) 98 06/23/18 00:00 103/49 06/22/18 23:51 74 06/22/18 23:45 76 16 99/44 (62) 98 06/22/18 23:30 76 14 110/48 (68) 98 06/22/18 23:15 77 14 107/45 (65) 98 06/22/18 23:00 78 22 113/47 (69) 98 06/22/18 23:00 113/47 06/22/18 22:45 79 18 113/47 (69) 97 06/22/18 22:30 79 17 125/54 (77) 96 06/22/18 22:15 78 18 113/49 (70) 96 06/22/18 22:00 120/68 06/22/18 22:00 72 18 120/68 (85) 96 06/22/18 21:45 71 17 64/52 (56) 94 06/22/18 21:45 64/52 06/22/18 21:30 69 19 93/72 (79) 94 06/22/18 21:15 82 21 87/52 (64) 96 06/22/18 21:00 86 20 144/46 (78) 97 06/22/18 21:00 144/46 06/22/18 20:45 85 19 136/55 (82) 97 06/22/18 20:30 75 18 123/53 (76) 98 06/22/18 20:15 60 18 66/32 (43) 98 06/22/18 20:10 68/26 06/22/18 20:00 97.5 62 18 68/26 (40) 98 06/22/18 20:00 Nasal Cannula 2.0 06/22/18 19:31 58 06/22/18 19:30 59 18 75/42 (53) 98 06/22/18 19:25 99 Nasal Cannula 2.0 28 06/22/18 19:25 Nasal Cannula 2.0 28 06/22/18 19:00 57 18 81/33 (49) 99 06/22/18 18:00 56 19 84/35 (51) 99 06/22/18 17:00 56 19 82/65 (71) 100 06/22/18 16:00 97.5 58 17 88/48 (61) 99 06/22/18 16:00 Nasal Cannula 2.0 06/22/18 16:00 59 06/22/18 15:30 60 20 89/32 (51) 96 06/22/18 15:00 61 18 82/42 (55) 97 06/22/18 14:30 62 19 87/37 (54) 98 06/22/18 14:00 64 22 103/40 (61) 98 06/22/18 14:00 103/40 06/22/18 13:30 65 17 104/33 (56) 98 06/22/18 13:00 105/29 06/22/18 13:00 62 17 105/29 (54) 98 06/22/18 12:30 62 19 98/42 (60) 93 06/22/18 12:00 Nasal Cannula 2.0 06/22/18 12:00 64 06/22/18 12:00 98/38 06/22/18 12:00 97.4 63 17 98/38 (58) 98 06/22/18 11:30 66 18 105/46 (65) 98 06/22/18 11:00 105/57 06/22/18 11:00 66 18 105/57 (73) 98 06/22/18 10:30 66 18 95/42 (59) 98 06/22/18 10:00 64 15 96/40 (58) 97 06/22/18 09:30 65 15 114/41 (65) 99 06/22/18 09:00 98/41 06/22/18 09:00 67 20 98/41 (60) 100 Microbiology Date/Time Source Procedure Growth Status 06/13/18 00:30 Blood Blood Culture - Final NO GROWTH AFTER 5 DAYS Complete 06/14/18 10:50 Other Gram Stain - Final Complete 06/14/18 10:50 Wound Culture - Final Pseudomonas Aeruginosa Morganella Morg Spp Morganii Streptococcus Group B Complete 06/13/18 03:00 Nasal Nares MRSA Culture - Final NO METHICILLIN RESISTANT STAPH AUREUS... Complete 06/14/18 10:50 Stool Clostridium difficile Toxin Assay - Final Complete 06/13/18 03:00 Rectum VRE Culture - Final Enterococcus Faecium - Vre Complete Dermatological Dermatological Narrative dressings are intact and clean Hany Brown DPM Jun 23, 2018 08:50
[2018-06-23] MEDS: Midodrine 10mg tab ORAL SCH ×3 (08:55→17:29)
[2018-06-23] MEDS: Multivitamin w/Minerals tab ORAL SCH (08:55)
[2018-06-23] MEDS: Aspirin Baby 81mg ORAL SCH (08:55)
[2018-06-23] MEDS: Heparin 5000 units/ml inj SUBQ SCH ×2 (08:57→20:34)
--- NOTE | 2018-06-23 09:24 | NUR ---
CASE MANAGEMENT: REVIEW SI: RENAL FAILURE ON HD T 97.5 HR 74 RR 13 BP 90/37 SAT 98% NC/2L IS: MEROPENEM IV Q24HR DOPAMINE IV Q24HR HEPARIN IV PRN NOVOLOG SQ AC/HS ICU STATUS DCP: PATIENT IS FROM [facility]
--- NOTE | 2018-06-23 10:30 | NUR ---
NURSE NOTES: Patient eat morning breakfast with minimal assistance, remains on dopamine at 2mcg/kg/min, she denies any pain, patient is HR remains in sinus rhythm, will continue to monitor.
--- NOTE | 2018-06-23 11:13 | NUR ---
RD ASSESSMENT & RECOMMENDATIONS SEE CARE ACTIVITY FOR COMPLETE ASSESSMENT DAILY ESTIMATED NEEDS: Needs based on ESRD on HD, Wounds (Adj Wt 62kg) 25-30 kcals/kg 1170-9221 total kcals 1.25-1.8 g protein/kg 76-112 g total protein Fluid per MD, on HD NUTRITION DIAGNOSIS: 1) Increased kcal, pro needs R/T wound healing and renal dysfunction as evidenced by pt w/ open left heel, sacral, and lt ischial wounds, w/ ESRD on HD. CURRENT DIET:Renal puree moist PO DIET RECOMMENDATIONS: RENAL, CCHO MED + Double Protein Portions (texture per AT HOME INDEPENDENT CALL CENTER AGENT) ADDITIONAL RECOMMENDATIONS: 1) Wound healing: Add Dimitry 1pkt BID , Nephrovite 1 tab daily 2) Obtain dry wt post HD on a calibrated bed scale 3) Monitor lytes closely 4) AT HOME INDEPENDENT CALL CENTER AGENT eval for appropriate texture, pt currently on puree diet . .
[2018-06-23 11:37] LABS: BASOPHILS % (AUTO) 0.8 % (0.0-2.0); EOSINOPHILS % (AUTO) 4.1 % (0.0-3.0); HEMATOCRIT 33.9 % (37.0-47.0); LYMPHOCYTES % (AUTO) 21.1 % (20.0-45.0); MEAN CORPUSCULAR VOLUME 89 FL (80-99); MONOCYTES % (AUTO) 7.4 % (1.0-10.0); NEUTROPHILS % (AUTO) 66.7 % (45.0-75.0); PLATELET COUNT 118 K/UL (150-450); RED BLOOD COUNT 3.81 M/UL (4.20-5.40); RED CELL DISTRIBUTION WIDTH 15.5 % (11.6-14.8)
[2018-06-23] MEDS: DOPamine 400mg/250ml 250 ML IV SCH (11:51)
--- NOTE | 2018-06-23 12:01 | Cardiology Report ---
APPROVED REPORT EKG Measurement Heart [id number] Normal sinus rhythm with sinus arrhythmia Low voltage QRS Borderline ECG
--- NOTE | 2018-06-23 12:30 | NUR ---
NURSE NOTES: Hemodialysis started and lab draws sent down for analysis, patient remains awake and talkative, remains on dopamine at 2mcg/kg/min through picc line, will continue to monitor.
[2018-06-23 12:37] LABS: ALANINE AMINOTRANSFERASE 10 U/L (12-78); ALBUMIN 1.7 G/DL (3.4-5.0); ALBUMIN/GLOBULIN RATIO 0.3 (1.0-2.7); ALKALINE PHOSPHATASE 125 U/L (46-116); ANION GAP 11 mmol/L (5-15); ASPARTATE AMINO TRANSFERASE 11 U/L (15-37); BILIRUBIN,TOTAL 0.3 MG/DL (0.2-1.0); BLOOD UREA NITROGEN 31 mg/dL (7-18); CARBON DIOXIDE 21 MMOL/L (21-32); CHLORIDE 100 MMOL/L (98-107); CREATININE 4.5 MG/DL (0.55-1.30); SODIUM 132 MMOL/L (136-145)
--- NOTE | 2018-06-23 13:59 | General Progress Note ---
Assessment/Plan Problem List: (1) Encephalopathy acute ICD Codes: G93.40 - Encephalopathy, unspecified SNOMED: 37126252, [id number] Status: unchanged, deteriorating Assessment/Plan the pt lacks capacity to refuse medications the pt lacks capacity to leave ama haldol prn ativan prn soft restraints. Subjective Neurologic/Psychiatric: Reports: anxiety Allergies: Coded Allergies: BENAZEPRIL (Verified Allergy, Unknown, 06/12/18) CODEINE (Verified Allergy, Unknown, 06/12/18) INSULIN ASPART (Verified Allergy, Unknown, 06/12/18) INSULIN DETEMIR (Verified Allergy, Unknown, 06/12/18) OPIOIDS - MORPHINE ANALOGUES (Verified Allergy, Unknown, 06/12/18) Subjective hallucinating Objective Last 24 Hour Vital Signs Date Time Temp Pulse Resp B/P (MAP) Pulse Ox O2 Delivery O2 Flow Rate FiO2 06/23/18 12:30 76 13 131/44 (73) 98 06/23/18 12:00 97.8 67 16 106/46 (66) 98 06/23/18 12:00 Nasal Cannula 2.0 06/23/18 12:00 75 06/23/18 11:51 100/43 06/23/18 11:30 62 15 90/40 (57) 98 06/23/18 11:00 65 14 95/39 (57) 98 06/23/18 10:00 70 15 104/30 (54) 99 06/23/18 09:30 64 18 75/45 (55) 99 06/23/18 09:00 72 17 111/44 (66) 99 06/23/18 08:30 72 19 119/47 (71) 99 06/23/18 08:00 72 06/23/18 08:00 Nasal Cannula 2.0 06/23/18 08:00 97.4 72 14 114/49 (70) 99 06/23/18 07:30 70 14 110/38 (62) 99 06/23/18 07:00 70 14 103/39 (60) 99 06/23/18 06:30 70 15 100/43 (62) 98 06/23/18 06:00 69 15 96/40 (58) 98 06/23/18 06:00 96/40 06/23/18 05:30 70 14 95/42 (59) 98 06/23/18 05:00 107/40 06/23/18 05:00 71 18 107/40 (62) 97 06/23/18 04:30 72 19 104/42 (62) 96 06/23/18 04:07 69 06/23/18 04:00 96/37 06/23/18 04:00 Nasal Cannula 2.0 06/23/18 04:00 97.5 69 15 96/37 (56) 99 06/23/18 03:30 69 15 90/37 (54) 99 06/23/18 03:00 69 15 99/37 (57) 98 06/23/18 03:00 99/37 06/23/18 02:30 68 15 99/46 (63) 99 06/23/18 02:00 69 15 92/38 (56) 98 06/23/18 02:00 92/38 06/23/18 01:30 71 14 93/33 (53) 98 06/23/18 01:00 75 18 115/51 (72) 96 06/23/18 01:00 115/51 06/23/18 00:30 72 13 100/45 (63) 98 06/23/18 00:00 Nasal Cannula 2.0 06/23/18 00:00 97.5 74 13 103/49 (67) 98 06/23/18 00:00 103/49 06/22/18 23:51 74 06/22/18 23:45 76 16 99/44 (62) 98 06/22/18 23:30 76 14 110/48 (68) 98 06/22/18 23:15 77 14 107/45 (65) 98 06/22/18 23:00 78 22 113/47 (69) 98 06/22/18 23:00 113/47 06/22/18 22:45 79 18 113/47 (69) 97 06/22/18 22:30 79 17 125/54 (77) 96 06/22/18 22:15 78 18 113/49 (70) 96 06/22/18 22:00 120/68 06/22/18 22:00 72 18 120/68 (85) 96 06/22/18 21:45 71 17 64/52 (56) 94 06/22/18 21:45 64/52 06/22/18 21:30 69 19 93/72 (79) 94 06/22/18 21:15 82 21 87/52 (64) 96 06/22/18 21:00 86 20 144/46 (78) 97 06/22/18 21:00 144/46 06/22/18 20:45 85 19 136/55 (82) 97 06/22/18 20:30 75 18 123/53 (76) 98 06/22/18 20:15 60 18 66/32 (43) 98 06/22/18 20:10 68/26 06/22/18 20:00 97.5 62 18 68/26 (40) 98 06/22/18 20:00 Nasal Cannula 2.0 06/22/18 19:31 58 06/22/18 19:30 59 18 75/42 (53) 98 06/22/18 19:25 99 Nasal Cannula 2.0 28 06/22/18 19:25 Nasal Cannula 2.0 28 06/22/18 19:00 57 18 81/33 (49) 99 06/22/18 18:00 56 19 84/35 (51) 99 06/22/18 17:00 56 19 82/65 (71) 100 06/22/18 16:00 97.5 58 17 88/48 (61) 99 06/22/18 16:00 Nasal Cannula 2.0 06/22/18 16:00 59 06/22/18 15:30 60 20 89/32 (51) 96 06/22/18 15:00 61 18 82/42 (55) 97 06/22/18 14:30 62 19 87/37 (54) 98 06/22/18 14:00 64 22 103/40 (61) 98 06/22/18 14:00 103/40 Intake and Output 06/22/18 06/23/18 18:59 06:59 Intake Total 1316.250 ml 290.5 ml Balance 1316.250 ml 290.5 ml Intake Oral 1225 ml 220 ml IV Total 81.250 ml 70.5 ml Other 10 ml # Voids 2 # Bowel Movements 4 2 Laboratory Tests 06/23/18 11:30: White Blood Count 4.0L, Red Blood Count 3.81L, Hemoglobin 10.0L, Hematocrit 33.9L, Mean Corpuscular Volume 89, Mean Corpuscular Hemoglobin 26.1L, Mean Corpuscular Hemoglobin Concent 29.4L, Red Cell Distribution Width 15.5H, Platelet Count 118L, Mean Platelet Volume 8.1, Neutrophils (%) (Auto) 66.7, Lymphocytes (%) (Auto) 21.1, Monocytes (%) (Auto) 7.4, Eosinophils (%) (Auto) 4.1H, Basophils (%) (Auto) 0.8, Sodium Level 132L, Potassium Level 4.0, Chloride Level 100, Carbon Dioxide Level 21, Anion Gap 11, Blood Urea Nitrogen 31H, Creatinine 4.5H, Estimat Glomerular Filtration Rate 11.6, Glucose Level 108H, Calcium Level 8.0L, Phosphorus Level 5.0H, Total Bilirubin 0.3, Aspartate Amino Transf (AST/SGOT) 11L, Alanine Aminotransferase (ALT/SGPT) 10L, Alkaline Phosphatase 125H, Total Protein 6.7, Albumin 1.7L, Globulin 5.0, Albumin/ Globulin Ratio 0.3L Height (Feet): 5 Height (Inches): 6.00 Weight (Pounds): 220 General Appearance: lethargic, confused, agitated Abelardo Yadav MD Jun 23, 2018 13:59
[2018-06-23] MEDS: Meropenem 500 MG in NS 55 ML IVPB SCH (14:02)
--- NOTE | 2018-06-23 14:41 | NUR ---
NURSE NOTES: Patient is awake and talkative with staff, hemodialysis completed with 2L taken off, patient denies any pain, HR remains in sinus rhythm with no arrhythmias noted, afternoon medication taken and started to eat breakfast with minimal assistance, will continue to monitor.
--- NOTE | 2018-06-23 16:15 | NUR ---
NURSE NOTES: Hemodialysis completed with 2000ml removed, patient is awake and talkative, patient denies any pain, remains on dopamine 2mcg/kg/min with BP at 135/65, will continue plan of care.
--- NOTE | 2018-06-23 18:21 | NUR ---
NURSE NOTES: Patient is awake and feeding with assistance, she denies any pain, remains on nasal cannula with 2 L/min saturating at 97-99% with no distress noted, will continue plan of care.
--- NOTE | 2018-06-23 19:32 | NUR ---
HAND-OFF: Report given to CHAPIS Ferguson.
--- NOTE | 2018-06-23 19:50 | NUR ---
NURSE NOTES: PATIENT ALERT, ORIENTED, FORGETFUL, FOLLOWED COMMANDS, RIGHT EYE OPACITY, LEGALLY BLIND STATUS, RESPIRATION REGULAR ON O2 2LPM VIA NC, ABDOMEN SOFT, NON TENDER, HYPERACTIVE BOWEL SOUND X4 QUADRANTS, RIGHT BKA, AV SHUNT TO RIGHT UPPER ARM, PALPABLE THRILL, BRUIT, 3 LUMEN PICC LINE TO LEFT UPPER ARM, INTACT AND PATENT, ONGOING DOPAMINE 2MCG/KG/MIN STATUS, ON P200 BED, MADE LOWER BED POSITION, PROVIDED CALL LIGHT WITHIN REACH, WILL CONTINUE TO MONITOR.
[2018-06-23] MEDS: Dyna-Hex 2% Top Sol 2oz TOPIC SCH (19:54)
[2018-06-23] MEDS: Acetaminophen 500mg (ES) tab ORAL PRN (20:32)
--- NOTE | 2018-06-23 20:49 | Cardiology Progress Note ---
Assessment/Plan Assessment/Plan Unfortunately, still has instable BP and requires low dose of dopamine Subjective Subjective will start dialysis is lethargic, denies discomfort Objective Last 24 Hour Vital Signs Date Time Temp Pulse Resp B/P (MAP) Pulse Ox O2 Delivery O2 Flow Rate FiO2 06/23/18 19:00 71 14 100/46 (64) 98 06/23/18 19:00 100/46 06/23/18 18:51 100 Nasal Cannula 2.0 28 06/23/18 18:51 Nasal Cannula 2.0 28 06/23/18 18:30 78 19 114/62 (79) 97 06/23/18 18:00 82 17 122/61 (81) 97 06/23/18 18:00 122/61 06/23/18 17:30 80 21 137/53 (81) 97 06/23/18 17:00 114/41 06/23/18 17:00 74 18 114/41 (65) 97 06/23/18 16:30 68 06/23/18 16:30 69 13 104/47 (66) 97 06/23/18 16:00 97.8 67 14 85/39 (54) 98 06/23/18 16:00 Nasal Cannula 2.0 06/23/18 16:00 85/39 06/23/18 15:30 79 18 109/42 (64) 97 06/23/18 15:30 109/42 06/23/18 15:00 87 18 104/55 (71) 97 06/23/18 15:00 104/55 06/23/18 14:00 84 19 113/60 (77) 96 06/23/18 14:00 115/42 06/23/18 13:30 79 19 110/48 (68) 98 06/23/18 13:00 140/39 06/23/18 13:00 79 18 131/52 (78) 98 06/23/18 12:30 76 13 131/44 (73) 98 06/23/18 12:00 106/46 06/23/18 12:00 97.8 67 16 106/46 (66) 98 06/23/18 12:00 Nasal Cannula 2.0 06/23/18 12:00 75 06/23/18 11:51 100/43 06/23/18 11:30 62 15 90/40 (57) 98 06/23/18 11:00 106/46 06/23/18 11:00 65 14 95/39 (57) 98 06/23/18 10:00 95/39 06/23/18 10:00 70 15 104/30 (54) 99 06/23/18 09:30 64 18 75/45 (55) 99 06/23/18 09:00 72 17 111/44 (66) 99 06/23/18 09:00 111/44 06/23/18 08:30 72 19 119/47 (71) 99 06/23/18 08:00 72 06/23/18 08:00 114/49 06/23/18 08:00 Nasal Cannula 2.0 06/23/18 08:00 97.4 72 14 114/49 (70) 99 06/23/18 07:30 70 14 110/38 (62) 99 06/23/18 07:00 103/39 06/23/18 07:00 70 14 103/39 (60) 99 06/23/18 06:30 70 15 100/43 (62) 98 06/23/18 06:00 69 15 96/40 (58) 98 06/23/18 06:00 96/40 06/23/18 05:30 70 14 95/42 (59) 98 06/23/18 05:00 107/40 06/23/18 05:00 71 18 107/40 (62) 97 06/23/18 04:30 72 19 104/42 (62) 96 06/23/18 04:07 69 06/23/18 04:00 96/37 06/23/18 04:00 Nasal Cannula 2.0 06/23/18 04:00 97.5 69 15 96/37 (56) 99 06/23/18 03:30 69 15 90/37 (54) 99 06/23/18 03:00 69 15 99/37 (57) 98 06/23/18 03:00 99/37 06/23/18 02:30 68 15 99/46 (63) 99 06/23/18 02:00 69 15 92/38 (56) 98 06/23/18 02:00 92/38 06/23/18 01:30 71 14 93/33 (53) 98 06/23/18 01:00 75 18 115/51 (72) 96 06/23/18 01:00 115/51 06/23/18 00:30 72 13 100/45 (63) 98 06/23/18 00:00 Nasal Cannula 2.0 06/23/18 00:00 97.5 74 13 103/49 (67) 98 06/23/18 00:00 103/49 06/22/18 23:51 74 06/22/18 23:45 76 16 99/44 (62) 98 06/22/18 23:30 76 14 110/48 (68) 98 06/22/18 23:15 77 14 107/45 (65) 98 06/22/18 23:00 78 22 113/47 (69) 98 06/22/18 23:00 113/47 06/22/18 22:45 79 18 113/47 (69) 97 06/22/18 22:30 79 17 125/54 (77) 96 06/22/18 22:15 78 18 113/49 (70) 96 06/22/18 22:00 120/68 06/22/18 22:00 72 18 120/68 (85) 96 06/22/18 21:45 71 17 64/52 (56) 94 06/22/18 21:45 64/52 06/22/18 21:30 69 19 93/72 (79) 94 06/22/18 21:15 82 21 87/52 (64) 96 06/22/18 21:00 86 20 144/46 (78) 97 06/22/18 21:00 144/46 General Appearance: lethargic Neck: JVD - elevated Rhythm: NSR Cardiovascular: systolic murmur, gallop/S4 Respiratory/Chest: crackles/rales, rhonchi - bilaterally Abdomen: soft, distended Extremities: other - AKA right Intake and Output 06/22/18 06/23/18 19:00 07:00 Intake Total 1312.500 ml 298.0 ml Balance 1312.500 ml 298.0 ml Intake Oral 1225 ml 220 ml IV Total 77.500 ml 78.0 ml Other 10 ml # Voids 2 # Bowel Movements 4 2 Laboratory Tests Test 06/23/18 11:30 White Blood Count 4.0 K/UL (4.8-10.8) L Red Blood Count 3.81 M/UL (4.20-5.40) L Hemoglobin 10.0 G/DL (12.0-16.0) L Hematocrit 33.9 % (37.0-47.0) L Mean Corpuscular Volume 89 FL (80-99) Mean Corpuscular Hemoglobin 26.1 PG (27.0-31.0) L Mean Corpuscular Hemoglobin Concent 29.4 G/DL (32.0-36.0) L Red Cell Distribution Width 15.5 % (11.6-14.8) H Platelet Count 118 K/UL (150-450) L Mean Platelet Volume 8.1 FL (6.5-10.1) Neutrophils (%) (Auto) 66.7 % (45.0-75.0) Lymphocytes (%) (Auto) 21.1 % (20.0-45.0) Monocytes (%) (Auto) 7.4 % (1.0-10.0) Eosinophils (%) (Auto) 4.1 % (0.0-3.0) H Basophils (%) (Auto) 0.8 % (0.0-2.0) Sodium Level 132 MMOL/L (136-145) L Potassium Level 4.0 MMOL/L (3.5-5.1) Chloride Level 100 MMOL/L (98-107) Carbon Dioxide Level 21 MMOL/L (21-32) Anion Gap 11 mmol/L (5-15) Blood Urea Nitrogen 31 mg/dL (7-18) H Creatinine 4.5 MG/DL (0.55-1.30) H Estimat Glomerular Filtration Rate 11.6 mL/min (>60) Glucose Level 108 MG/DL (74-106) H Calcium Level 8.0 MG/DL (8.5-10.1) L Phosphorus Level 5.0 MG/DL (2.5-4.9) H Total Bilirubin 0.3 MG/DL (0.2-1.0) Aspartate Amino Transf (AST/SGOT) 11 U/L (15-37) L Alanine Aminotransferase (ALT/SGPT) 10 U/L (12-78) L Alkaline Phosphatase 125 U/L (46-116) H Total Protein 6.7 G/DL (6.4-8.2) Albumin 1.7 G/DL (3.4-5.0) L Globulin 5.0 g/dL Albumin/Globulin Ratio 0.3 (1.0-2.7) L Clarisse Daley MD Jun 23, 2018 20:49
--- NOTE | 2018-06-23 22:40 | NUR ---
NURSE NOTES: PATIENT AWOKE, ANXIOUS, TOOK OFF GOWN, SHOUTING HER DAUGHTER'S NAME AND WANTED ICE CHIPS THAT FEED ICE CHIPS AND GIVEN ATIVAN 2MG BY IVP SLOWLY PRN ORDERED, WILL CONTINUE TO MONITOR.
[2018-06-24] VITALS (48 sets, daily range): BP systolic 81–142; BP diastolic 29–68
--- NOTE | 2018-06-24 00:30 | NUR ---
NURSE NOTES: PATIENT SLEEPING ON AND OFF STATUS, NO PAIN NOTED, WILL CONTINUE TO MONITOR.
--- NOTE | 2018-06-24 02:00 | NUR ---
NURSE NOTES: ASLEEP STATUS, ONGOING DOPAMINE 2MCG/KG/MIN, WILL CONTINUE TO MONITOR.
--- NOTE | 2018-06-24 04:00 | NUR ---
NURSE NOTES: MORNING CARE WAS DONE.
--- NOTE | 2018-06-24 06:05 | NUR ---
NURSE NOTES: NO ACUTE DISTRESS NOTED AT THIS SHIFT.
[2018-06-24] MEDS: NovoLOG Insulin Flexpen SUBQ SCH ×4 (06:30→20:52)
--- NOTE | 2018-06-24 07:22 | NUR ---
HAND-OFF: Report given to CHARANJIT/CHAPIS.
--- NOTE | 2018-06-24 07:52 | NUR ---
NURSE NOTES: Patient is resting in bed with television on news channel, patient pain is 0 using the FLACC scale, her left leg remains elevated on a pillow case, she remains on 2mcg/kg/min with BP of 96/43 and HR at 70bpm, she is on Nasal cannula at 2L/min with saturations at 100% and no respiratory distress, will continue to monitor
[2018-06-24] MEDS: Multivitamin w/Minerals tab ORAL SCH (08:53)
[2018-06-24] MEDS: Aspirin Baby 81mg ORAL SCH (08:53)
[2018-06-24] MEDS: Midodrine 10mg tab ORAL SCH (08:53)
[2018-06-24] MEDS: Heparin 5000 units/ml inj SUBQ SCH ×2 (09:00→20:52)
--- NOTE | 2018-06-24 09:30 | NUR ---
NURSE NOTES: morning medication taken by patient with no problems, morning breakfast eaten with no assistance, patient remains on dopamine at 2mcg/kg/min, wound care provided, will continue to monitor.
--- NOTE | 2018-06-24 11:12 | Infectious Diseases Prog Note ---
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 renal failure 3. diabetes mellitus 4. hypertension 5. rectal VRE colonization P 1. continue meropenem 32 more days 2. will follow up cultures Subjective ROS Limited/Unobtainable: Yes Allergies: Coded Allergies: BENAZEPRIL (Verified Allergy, Unknown, 06/12/18) CODEINE (Verified Allergy, Unknown, 06/12/18) INSULIN ASPART (Verified Allergy, Unknown, 06/12/18) INSULIN DETEMIR (Verified Allergy, Unknown, 06/12/18) OPIOIDS - MORPHINE ANALOGUES (Verified Allergy, Unknown, 06/12/18) Objective Vital Signs Last 24 Hour Vital Signs Date Time Temp Pulse Resp B/P (MAP) Pulse Ox O2 Delivery O2 Flow Rate FiO2 06/24/18 11:00 70 14 90/40 (57) 99 06/24/18 10:30 70 13 91/42 (58) 99 06/24/18 10:00 71 14 83/30 (47) 98 06/24/18 09:30 71 13 91/39 (56) 98 06/24/18 09:00 72 18 109/45 (66) 98 06/24/18 08:30 73 16 94/36 (55) 98 06/24/18 08:00 97.5 71 19 96/43 (60) 99 06/24/18 07:30 69 27 96/48 (64) 100 06/24/18 07:00 86/36 06/24/18 07:00 69 14 86/36 (53) 98 06/24/18 06:30 69 14 95/37 (56) 98 06/24/18 06:00 69 18 91/41 (58) 99 06/24/18 06:00 91/41 06/24/18 05:30 70 19 101/68 (79) 99 06/24/18 05:00 70 18 103/45 (64) 99 06/24/18 05:00 103/45 06/24/18 04:30 69 12 99/41 (60) 99 06/24/18 04:00 Nasal Cannula 2.0 06/24/18 04:00 88/38 06/24/18 04:00 97.6 69 18 88/38 (55) 97 06/24/18 03:53 69 06/24/18 03:30 70 16 93/40 (57) 99 06/24/18 03:00 70 17 98/42 (60) 99 06/24/18 03:00 98/42 06/24/18 02:30 69 17 92/42 (59) 99 06/24/18 02:00 70 16 100/46 (64) 99 06/24/18 02:00 100/46 06/24/18 01:30 73 15 111/42 (65) 99 06/24/18 01:00 123/52 06/24/18 01:00 73 19 123/52 (75) 99 06/24/18 00:30 72 15 112/45 (67) 100 06/24/18 00:16 72 06/24/18 00:00 Nasal Cannula 2.0 06/24/18 00:00 105/44 06/24/18 00:00 97.5 71 15 105/44 (64) 99 06/23/18 23:30 70 15 86/33 (50) 99 06/23/18 23:00 93/46 06/23/18 23:00 75 16 93/46 (62) 98 06/23/18 22:30 71 20 102/52 (69) 97 06/23/18 22:00 104/45 06/23/18 22:00 70 23 104/49 (67) 99 06/23/18 21:30 72 26 111/56 (74) 99 06/23/18 21:00 74 18 122/52 (75) 97 06/23/18 21:00 120/52 06/23/18 20:30 73 19 121/55 (77) 98 06/23/18 20:13 73 06/23/18 20:00 Nasal Cannula 2.0 06/23/18 20:00 112/60 06/23/18 20:00 97.6 73 18 112/60 (77) 97 06/23/18 19:30 71 13 94/51 (65) 98 06/23/18 19:00 71 14 100/46 (64) 98 06/23/18 19:00 100/46 06/23/18 18:51 100 Nasal Cannula 2.0 28 06/23/18 18:51 Nasal Cannula 2.0 28 06/23/18 18:30 78 19 114/62 (79) 97 06/23/18 18:00 82 17 122/61 (81) 97 06/23/18 18:00 122/61 06/23/18 17:30 80 21 137/53 (81) 97 06/23/18 17:00 114/41 06/23/18 17:00 74 18 114/41 (65) 97 06/23/18 16:30 68 06/23/18 16:30 69 13 104/47 (66) 97 06/23/18 16:00 97.8 67 14 85/39 (54) 98 06/23/18 16:00 Nasal Cannula 2.0 06/23/18 16:00 85/39 06/23/18 15:30 79 18 109/42 (64) 97 06/23/18 15:30 109/42 06/23/18 15:00 87 18 104/55 (71) 97 06/23/18 15:00 104/55 06/23/18 14:00 84 19 113/60 (77) 96 06/23/18 14:00 115/42 06/23/18 13:30 79 19 110/48 (68) 98 06/23/18 13:00 140/39 06/23/18 13:00 79 18 131/52 (78) 98 06/23/18 12:30 76 13 131/44 (73) 98 06/23/18 12:00 106/46 06/23/18 12:00 97.8 67 16 106/46 (66) 98 06/23/18 12:00 Nasal Cannula 2.0 06/23/18 12:00 75 06/23/18 11:51 100/43 06/23/18 11:30 62 15 90/40 (57) 98 Height (Feet): 5 Height (Inches): 6.00 Weight (Pounds): 217 Respiratory/Chest: lungs clear Cardiovascular: normal rate, regular rhythm, no gallop/murmur Abdomen: soft, non tender Extremities: no edema, other - right stump clean, left foot in dressings, left arm PICC Laboratory Tests Test 06/23/18 11:30 White Blood Count 4.0 K/UL (4.8-10.8) L Red Blood Count 3.81 M/UL (4.20-5.40) L Hemoglobin 10.0 G/DL (12.0-16.0) L Hematocrit 33.9 % (37.0-47.0) L Mean Corpuscular Volume 89 FL (80-99) Mean Corpuscular Hemoglobin 26.1 PG (27.0-31.0) L Mean Corpuscular Hemoglobin Concent 29.4 G/DL (32.0-36.0) L Red Cell Distribution Width 15.5 % (11.6-14.8) H Platelet Count 118 K/UL (150-450) L Mean Platelet Volume 8.1 FL (6.5-10.1) Neutrophils (%) (Auto) 66.7 % (45.0-75.0) Lymphocytes (%) (Auto) 21.1 % (20.0-45.0) Monocytes (%) (Auto) 7.4 % (1.0-10.0) Eosinophils (%) (Auto) 4.1 % (0.0-3.0) H Basophils (%) (Auto) 0.8 % (0.0-2.0) Sodium Level 132 MMOL/L (136-145) L Potassium Level 4.0 MMOL/L (3.5-5.1) Chloride Level 100 MMOL/L (98-107) Carbon Dioxide Level 21 MMOL/L (21-32) Anion Gap 11 mmol/L (5-15) Blood Urea Nitrogen 31 mg/dL (7-18) H Creatinine 4.5 MG/DL (0.55-1.30) H Estimat Glomerular Filtration Rate 11.6 mL/min (>60) Glucose Level 108 MG/DL (74-106) H Calcium Level 8.0 MG/DL (8.5-10.1) L Phosphorus Level 5.0 MG/DL (2.5-4.9) H Total Bilirubin 0.3 MG/DL (0.2-1.0) Aspartate Amino Transf (AST/SGOT) 11 U/L (15-37) L Alanine Aminotransferase (ALT/SGPT) 10 U/L (12-78) L Alkaline Phosphatase 125 U/L (46-116) H Total Protein 6.7 G/DL (6.4-8.2) Albumin 1.7 G/DL (3.4-5.0) L Globulin 5.0 g/dL Albumin/Globulin Ratio 0.3 (1.0-2.7) L Current Medications Medications (Trade) Dose Ordered Sig/Andre Route PRN Reason Start Time Stop Time Status Last Admin Dose Admin Acetaminophen (Tylenol) 500 mg Q6H PRN ORAL Mild Pain/Temp > 100.5 06/16/18 02:15 07/13/18 08:14 06/23/18 20:32 Aspirin (ASA) 81 mg DAILY ORAL 06/16/18 09:00 07/13/18 08:59 06/24/18 08:53 Atorvastatin Calcium (Lipitor) 10 mg BEDTIME ORAL 06/16/18 21:00 07/13/18 20:59 06/23/18 20:31 Chlorhexidine Gluconate (Fabiola-Hex 2%) 1 applic DAILY@1999 TOPIC 06/18/18 20:00 07/18/18 19:59 06/23/18 19:54 Collagenase (Santyl) 1 applic DAILY TOPIC 06/16/18 09:00 07/13/18 08:59 06/24/18 08:54 Dextrose (Dextrose 50%) 25 ml Q30M PRN IV Hypoglycemia 06/17/18 20:15 07/17/18 20:14 Dextrose (Dextrose 50%) 50 ml Q30M PRN IV Hypoglycemia 06/17/18 20:15 07/17/18 20:14 Dopamine HCl/ Dextrose 250 ml @ 0 mls/hr Q24H IV 06/19/18 11:30 07/19/18 11:29 06/23/18 11:51 Haloperidol Lactate (Haldol) 5 mg Q6H PRN IM Agitation 06/21/18 13:15 07/21/18 13:14 Heparin Sodium (Porcine) (Heparin 5000 units/ml) 5,000 units EVERY 12 HOURS SUBQ 06/16/18 09:00 07/13/18 08:59 06/24/18 09:00 Insulin Aspart (NovoLOG) BEFORE MEALS AND HS SUBQ 06/17/18 21:00 07/17/18 20:59 06/23/18 20:35 Loperamide HCl (Imodium) 4 mg Q4H PRN ORAL diarrhea 06/16/18 03:45 07/14/18 15:40 06/22/18 12:29 Lorazepam (Ativan 2mg/ml 1ml) 2 mg Q4H PRN IV For Anxiety 06/21/18 13:15 06/28/18 13:14 06/23/18 22:40 Meropenem 500 mg/ Sodium Chloride 55 ml @ 110 mls/hr Q24H IVPB 06/16/18 14:00 06/28/18 13:59 06/23/18 14:02 Midodrine (Pro-Amatine) 10 mg THREE TIMES A DAY ORAL 06/23/18 09:00 07/23/18 08:59 06/24/18 08:53 Multivitamins Therapeutic (Therapeutic Multivitamin) 1 ea DAILY ORAL 06/16/18 09:00 07/13/18 08:59 06/24/18 08:53 Pantoprazole (Protonix) 40 mg DAILY ORAL 06/16/18 09:00 07/13/18 08:59 06/24/18 08:53 Naya Cain MD Jun 24, 2018 11:12"
--- NOTE | 2018-06-24 11:15 | NUR ---
NURSE NOTES: Dr. De Leon updated of patient condition and remains on dopamine at 2mcg/kg/min, no verbal orders given at this time.
--- NOTE | 2018-06-24 11:38 | Nephrology Progress Note ---
Assessment/Plan Plan Hypotension - R/O new sepsis - on IV Abx per ID. DC'ed all meds with potential to lower BP. L heel ulcer - Podiatry following. 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 Heel Ulcer - local care. Cardiac Status reviewed with Dr. Daley. 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 Pt. not a candidate for MVR due to overall condition. May be a candidate for TVR if stable. Currently unstable. Trying to taper off Dopamine. Try to UF less IVF. OK for a PICC line. Subjective Subjective In ICU due to hypotension. Still on dopamine drip. Trying to taper off. Intermittent success. Nocturnal hypotension. Using large cuff on lower leg. On Dopamine drip @ <1 mcgm/Kg/Min. No new c/o. Delusional Objective Objective Last 24 Hour Vital Signs Date Time Temp Pulse Resp B/P (MAP) Pulse Ox O2 Delivery O2 Flow Rate FiO2 06/24/18 11:00 70 14 90/40 (57) 99 06/24/18 11:00 90/40 06/24/18 10:30 70 13 91/42 (58) 99 06/24/18 10:00 83/30 06/24/18 10:00 71 14 83/30 (47) 98 06/24/18 09:30 71 13 91/39 (56) 98 06/24/18 09:00 109/45 06/24/18 09:00 72 18 109/45 (66) 98 06/24/18 08:30 73 16 94/36 (55) 98 06/24/18 08:00 96/43 06/24/18 08:00 97.5 71 19 96/43 (60) 99 06/24/18 08:00 Nasal Cannula 2.0 06/24/18 07:30 69 27 96/48 (64) 100 06/24/18 07:00 86/36 06/24/18 07:00 69 14 86/36 (53) 98 06/24/18 06:30 69 14 95/37 (56) 98 06/24/18 06:00 69 18 91/41 (58) 99 06/24/18 06:00 91/41 06/24/18 05:30 70 19 101/68 (79) 99 06/24/18 05:00 70 18 103/45 (64) 99 06/24/18 05:00 103/45 06/24/18 04:30 69 12 99/41 (60) 99 06/24/18 04:00 Nasal Cannula 2.0 06/24/18 04:00 88/38 06/24/18 04:00 97.6 69 18 88/38 (55) 97 06/24/18 03:53 69 06/24/18 03:30 70 16 93/40 (57) 99 06/24/18 03:00 70 17 98/42 (60) 99 06/24/18 03:00 98/42 06/24/18 02:30 69 17 92/42 (59) 99 06/24/18 02:00 70 16 100/46 (64) 99 06/24/18 02:00 100/46 06/24/18 01:30 73 15 111/42 (65) 99 06/24/18 01:00 123/52 06/24/18 01:00 73 19 123/52 (75) 99 06/24/18 00:30 72 15 112/45 (67) 100 06/24/18 00:16 72 06/24/18 00:00 Nasal Cannula 2.0 06/24/18 00:00 105/44 06/24/18 00:00 97.5 71 15 105/44 (64) 99 06/23/18 23:30 70 15 86/33 (50) 99 06/23/18 23:00 93/46 06/23/18 23:00 75 16 93/46 (62) 98 06/23/18 22:30 71 20 102/52 (69) 97 06/23/18 22:00 104/45 06/23/18 22:00 70 23 104/49 (67) 99 06/23/18 21:30 72 26 111/56 (74) 99 06/23/18 21:00 74 18 122/52 (75) 97 06/23/18 21:00 120/52 06/23/18 20:30 73 19 121/55 (77) 98 06/23/18 20:13 73 06/23/18 20:00 Nasal Cannula 2.0 06/23/18 20:00 112/60 06/23/18 20:00 97.6 73 18 112/60 (77) 97 06/23/18 19:30 71 13 94/51 (65) 98 06/23/18 19:00 71 14 100/46 (64) 98 06/23/18 19:00 100/46 06/23/18 18:51 100 Nasal Cannula 2.0 28 06/23/18 18:51 Nasal Cannula 2.0 28 06/23/18 18:30 78 19 114/62 (79) 97 06/23/18 18:00 82 17 122/61 (81) 97 06/23/18 18:00 122/61 06/23/18 17:30 80 21 137/53 (81) 97 06/23/18 17:00 114/41 06/23/18 17:00 74 18 114/41 (65) 97 06/23/18 16:30 68 06/23/18 16:30 69 13 104/47 (66) 97 06/23/18 16:00 97.8 67 14 85/39 (54) 98 06/23/18 16:00 Nasal Cannula 2.0 06/23/18 16:00 85/39 06/23/18 15:30 79 18 109/42 (64) 97 06/23/18 15:30 109/42 06/23/18 15:00 87 18 104/55 (71) 97 06/23/18 15:00 104/55 06/23/18 14:00 84 19 113/60 (77) 96 06/23/18 14:00 115/42 06/23/18 13:30 79 19 110/48 (68) 98 06/23/18 13:00 140/39 06/23/18 13:00 79 18 131/52 (78) 98 06/23/18 12:30 76 13 131/44 (73) 98 06/23/18 12:00 106/46 06/23/18 12:00 97.8 67 16 106/46 (66) 98 06/23/18 12:00 Nasal Cannula 2.0 06/23/18 12:00 75 06/23/18 11:51 100/43 Intake and Output 06/23/18 06/24/18 19:00 07:00 Intake Total 1443.125 ml 220.0 ml Output Total 2000 ml Balance -556.875 ml 220.0 ml Intake Oral 1300 ml 130 ml IV Total 143.125 ml 90.0 ml Hemodialysis UF 2000 ml # Voids 1 # Bowel Movements 2 Height (Feet): 5 Height (Inches): 6.00 Weight (Pounds): 217 Objective Blind Cv RR Lungs CTA Abd SNT. BS + E Rt AKA stump clean. Lt. deep heel ulcer. Neuro A+ O . @ times delusional Brenda Fuller MD Jun 24, 2018 11:38
--- NOTE | 2018-06-24 11:45 | NUR ---
NURSE NOTES: Patient repositioned and blood sugar level taken, BS resulted at 93 with no coverage indicated, patient is awaiting for lunch, ice chips given at this time, will continue plan of care.
[2018-06-24] MEDS: DOPamine 400mg/250ml 250 ML IV SCH (12:06)
[2018-06-24] MEDS: Acetaminophen 500mg (ES) tab ORAL PRN (12:07)
--- NOTE | 2018-06-24 14:30 | NUR ---
NURSE NOTES: Patient remains calm and resting in bed, remains on nasal cannula at 2L/min with no distress noted, remains on dopamine at 2mcg/kg/min, will continue to monitor.
[2018-06-24] MEDS: Meropenem 500 MG in NS 55 ML IVPB SCH (14:33)
[2018-06-24] MEDS ORDERED: NS 275ml ONE (15:58)
--- NOTE | 2018-06-24 16:05 | NUR ---
NURSE NOTES: Patient is awake and talkative, she is listening to television placed on a film, patient remains on dopamine with 2mcg/kg/min with Bp of 100/44 and HR at 74 in sinus rhythm, remains on 2L/min nasal cannula with saturations or 97%, no distress noted with breathing. will continue to monitor.
--- NOTE | 2018-06-24 17:35 | NUR ---
NURSE NOTES: Wound dressing re-dressed and pictures taken, patient remains on 2 mcg/kg/min of dopamine,
--- NOTE | 2018-06-24 18:13 | Cardiology Progress Note ---
Assessment/Plan Assessment/Plan Will try to keep mean ABP at level of 60 and hopefully wean Subjective Subjective no significant changes, denies dyspnea, but has orthopnea 45 degree Objective Last 24 Hour Vital Signs Date Time Temp Pulse Resp B/P (MAP) Pulse Ox O2 Delivery O2 Flow Rate FiO2 06/24/18 17:00 108/45 06/24/18 17:00 75 16 108/45 (66) 98 06/24/18 16:30 75 18 114/49 (70) 96 06/24/18 16:00 Nasal Cannula 2.0 06/24/18 16:00 98.5 75 19 100/41 (60) 98 06/24/18 16:00 75 06/24/18 16:00 100/41 06/24/18 15:30 73 19 101/46 (64) 99 06/24/18 15:00 73 17 118/59 (78) 99 06/24/18 15:00 118/59 06/24/18 14:30 72 19 118/38 (64) 99 06/24/18 14:00 72 19 102/59 (73) 98 06/24/18 14:00 102/59 06/24/18 13:30 70 15 86/41 (56) 99 06/24/18 13:00 103/37 06/24/18 13:00 71 15 103/37 (59) 100 06/24/18 12:30 73 19 103/48 (66) 98 06/24/18 12:06 120/42 06/24/18 12:00 98.4 72 18 120/42 (68) 98 06/24/18 12:00 73 06/24/18 12:00 120/42 06/24/18 12:00 Nasal Cannula 2.0 06/24/18 11:30 72 18 102/43 (62) 98 06/24/18 11:00 70 14 90/40 (57) 99 06/24/18 11:00 90/40 06/24/18 10:30 70 13 91/42 (58) 99 06/24/18 10:00 83/30 06/24/18 10:00 71 14 83/30 (47) 98 06/24/18 09:30 71 13 91/39 (56) 98 06/24/18 09:00 109/45 06/24/18 09:00 72 18 109/45 (66) 98 06/24/18 08:30 73 16 94/36 (55) 98 06/24/18 08:00 96/43 06/24/18 08:00 97.5 71 19 96/43 (60) 99 06/24/18 08:00 70 06/24/18 08:00 Nasal Cannula 2.0 06/24/18 07:30 69 27 96/48 (64) 100 06/24/18 07:00 86/36 06/24/18 07:00 69 14 86/36 (53) 98 06/24/18 06:30 69 14 95/37 (56) 98 06/24/18 06:00 69 18 91/41 (58) 99 06/24/18 06:00 91/41 06/24/18 05:30 70 19 101/68 (79) 99 06/24/18 05:00 70 18 103/45 (64) 99 06/24/18 05:00 103/45 06/24/18 04:30 69 12 99/41 (60) 99 06/24/18 04:00 Nasal Cannula 2.0 06/24/18 04:00 88/38 06/24/18 04:00 97.6 69 18 88/38 (55) 97 06/24/18 03:53 69 06/24/18 03:30 70 16 93/40 (57) 99 06/24/18 03:00 70 17 98/42 (60) 99 06/24/18 03:00 98/42 06/24/18 02:30 69 17 92/42 (59) 99 06/24/18 02:00 70 16 100/46 (64) 99 06/24/18 02:00 100/46 06/24/18 01:30 73 15 111/42 (65) 99 06/24/18 01:00 123/52 06/24/18 01:00 73 19 123/52 (75) 99 06/24/18 00:30 72 15 112/45 (67) 100 06/24/18 00:16 72 06/24/18 00:00 Nasal Cannula 2.0 06/24/18 00:00 105/44 06/24/18 00:00 97.5 71 15 105/44 (64) 99 06/23/18 23:30 70 15 86/33 (50) 99 06/23/18 23:00 93/46 06/23/18 23:00 75 16 93/46 (62) 98 06/23/18 22:30 71 20 102/52 (69) 97 06/23/18 22:00 104/45 06/23/18 22:00 70 23 104/49 (67) 99 06/23/18 21:30 72 26 111/56 (74) 99 06/23/18 21:00 74 18 122/52 (75) 97 06/23/18 21:00 120/52 06/23/18 20:30 73 19 121/55 (77) 98 06/23/18 20:13 73 06/23/18 20:00 Nasal Cannula 2.0 06/23/18 20:00 112/60 06/23/18 20:00 97.6 73 18 112/60 (77) 97 06/23/18 19:30 71 13 94/51 (65) 98 06/23/18 19:00 71 14 100/46 (64) 98 06/23/18 19:00 100/46 06/23/18 18:51 100 Nasal Cannula 2.0 28 06/23/18 18:51 Nasal Cannula 2.0 28 06/23/18 18:30 78 19 114/62 (79) 97 General Appearance: alert EENT: other - Neck: JVD Rhythm: NSR Cardiovascular: systolic murmur Respiratory/Chest: decreased breath sounds, crackles/rales Abdomen: distended Intake and Output 06/23/18 06/24/18 18:59 06:59 Intake Total 1443.125 ml 220.0 ml Output Total 2000 ml Balance -556.875 ml 220.0 ml Intake Oral 1300 ml 130 ml IV Total 143.125 ml 90.0 ml Hemodialysis UF 2000 ml # Voids 1 # Bowel Movements 2 Clarisse Daley MD Jun 24, 2018 18:13
--- NOTE | 2018-06-24 18:15 | NUR ---
NURSE NOTES: Dr. Key rounded on patient and ordered to keep MAP above 60 and titrate dopamine,
--- NOTE | 2018-06-24 19:19 | NUR ---
HAND-OFF: Report given to CHAPIS Ferguson. Patient titrated to 1mcg/kg/min.
--- NOTE | 2018-06-24 19:40 | NUR ---
NURSE NOTES: PATIENT ALERT, ORIENTED, FORGETFUL, FOLLOWED COMMANDS, RIGHT EYE OPACITY, LEGALLY BLIND STATUS, RESPIRATION REGULAR ON O2 2LPM VIA NC, ABDOMEN SOFT, NON TENDER, HYPERACTIVE BOWEL SOUND X4 QUADRANTS, RIGHT BKA, AV SHUNT TO RIGHT UPPER ARM, PALPABLE THRILL, BRUIT, 3 LUMEN PICC LINE TO LEFT UPPER ARM, INTACT AND PATENT, ONGOING DOPAMINE 1MCG/KG/MIN STATUS, ON P200 BED, MADE LOWER BED POSITION, PROVIDED CALL LIGHT WITHIN REACH, WILL CONTINUE TO MONITOR.
[2018-06-24] MEDS: Dyna-Hex 2% Top Sol 2oz TOPIC SCH (19:53)
--- NOTE | 2018-06-24 22:00 | NUR ---
NURSE NOTES: REPOSITIONED AND ORAL CARE WAS DONE.
[2018-06-25] VITALS (46 sets, daily range): BP systolic 86–133; BP diastolic 29–77
--- NOTE | 2018-06-25 | NUR ---
NURSE NOTES: GIVEN TYLENOL 500MG BY PO PRN FOR PAIN ORDERED, WILL CONTINUE TO MONITOR.
--- NOTE | 2018-06-25 01:20 | NUR ---
NURSE NOTES: PATIENT SLEEPING STATUS, NO PAIN OR DISTRESS NOTED.
--- NOTE | 2018-06-25 03:10 | NUR ---
NURSE NOTES: PATIENT SHOUTED AND LOOKING SON AT THIS TIME THAT ENCOURAGED CALM DOWN AND FOLLOWED COMMANDS, WILL CONTINUE TO MONITOR.
--- NOTE | 2018-06-25 05:10 | NUR ---
NURSE NOTES: MORNING CARE AND ORAL CARE WAS DONE.
--- NOTE | 2018-06-25 06:00 | NUR ---
NURSE NOTES: Hematuria noted, will continue to monitor. Addendum: 06/25/18 at 0712 by LG FISCHER RN NURSE NOTES: WRONG PATIENT.
[2018-06-25] MEDS: NovoLOG Insulin Flexpen SUBQ SCH ×4 (06:18→20:45)
--- NOTE | 2018-06-25 06:30 | NUR ---
NURSE NOTES: NO ACUTE DISTRESS NOTED AT THIS SHIFT.
--- NOTE | 2018-06-25 07:29 | NUR ---
HAND-OFF: Report given to CHICO/CHAPIS.
[2018-06-25] MEDS: Multivitamin w/Minerals tab ORAL SCH (09:17)
[2018-06-25] MEDS: Aspirin Baby 81mg ORAL SCH (09:17)
[2018-06-25] MEDS: Heparin 5000 units/ml inj SUBQ SCH ×2 (09:21→20:45)
--- NOTE | 2018-06-25 09:35 | NUR ---
NURSE NOTES: AM MEDICATION GIVEN, NO SYMPTOMS OF SWALLOWING PROBLEMS NOTED, SHE IS ABLE TO EAT WITH MINIMAL ASSISTANCE, PATIENT REMAINS AWAKE AND TALKATIVE, SHE REMAINS ON 2l/MIN NASAL CANNULA WITH SATURATIONS OF 97% AND NO RESPIRATORY DISTRESS,.
--- NOTE | 2018-06-25 10:30 | Nephrology Progress Note ---
Assessment/Plan Plan Hypotension - R/O new sepsis - on IV Abx per ID. DC'ed all meds with potential to lower BP. L heel ulcer - Podiatry following. 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 Heel Ulcer - local care. Cardiac Status reviewed with Dr. Daley. 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 Pt. not a candidate for MVR due to overall condition. May be a candidate for TVR if stable. Currently unstable. Trying to taper off Dopamine. Try to UF less IVF. OK for a PICC line. Subjective Subjective In ICU due to hypotension. Still on dopamine drip. Trying to taper off. Intermittent success. Nocturnal hypotension. Using large cuff on lower leg. On Dopamine drip @ <1 mcgm/Kg/Min. No new c/o. Delusional Objective Objective Last 24 Hour Vital Signs Date Time Temp Pulse Resp B/P (MAP) Pulse Ox O2 Delivery O2 Flow Rate FiO2 06/25/18 10:00 73 22 105/65 (78) 97 06/25/18 09:30 74 19 116/47 (70) 96 06/25/18 09:00 73 19 107/48 (67) 97 06/25/18 08:30 73 18 117/64 (81) 98 06/25/18 08:00 Nasal Cannula 2.0 06/25/18 08:00 73 17 106/65 (79) 98 06/25/18 08:00 73 06/25/18 07:00 121/50 06/25/18 07:00 76 19 121/50 (73) 96 06/25/18 06:30 75 19 116/42 (66) 96 06/25/18 06:00 74 18 107/29 (55) 94 06/25/18 06:00 107/29 06/25/18 05:30 75 20 102/37 (58) 98 06/25/18 05:00 74 18 103/35 (57) 97 06/25/18 05:00 103/35 06/25/18 04:30 73 19 100/35 (56) 98 06/25/18 04:00 97.6 72 19 86/35 (52) 96 06/25/18 04:00 Nasal Cannula 2.0 06/25/18 04:00 86/35 06/25/18 03:31 71 06/25/18 03:30 71 21 100/42 (61) 98 06/25/18 03:00 102/40 06/25/18 03:00 72 17 102/40 (60) 98 06/25/18 02:30 71 14 97/65 (76) 97 06/25/18 02:00 74 19 100/61 (74) 92 06/25/18 02:00 108/61 06/25/18 01:30 73 19 112/44 (66) 96 06/25/18 01:00 72 14 96/49 (65) 98 06/25/18 01:00 96/49 06/25/18 00:30 72 14 100/43 (62) 98 06/25/18 00:02 75 06/25/18 00:00 97.8 74 17 105/39 (61) 96 06/25/18 00:00 Nasal Cannula 2.0 06/25/18 00:00 111/60 06/24/18 23:30 74 19 106/39 (61) 97 06/24/18 23:00 70 19 102/54 (70) 97 06/24/18 23:00 102/54 06/24/18 22:30 74 19 110/51 (70) 96 06/24/18 22:00 107/44 06/24/18 22:00 71 14 107/44 (65) 97 06/24/18 21:30 75 15 124/53 (76) 98 06/24/18 21:00 111/46 06/24/18 21:00 77 19 111/46 (67) 97 06/24/18 20:30 75 18 119/53 (75) 97 06/24/18 20:00 Nasal Cannula 2.0 06/24/18 20:00 87/42 06/24/18 20:00 97.6 69 13 87/43 (58) 98 06/24/18 19:30 65 14 81/39 (53) 97 06/24/18 19:26 68 06/24/18 19:12 98 Nasal Cannula 2.0 28 06/24/18 19:12 Nasal Cannula 2.0 28 06/24/18 19:00 70 19 92/49 (63) 97 06/24/18 19:00 92/49 06/24/18 18:30 74 20 122/50 (74) 98 06/24/18 18:30 122/50 06/24/18 18:00 73 19 104/59 (74) 98 06/24/18 18:00 104/59 06/24/18 17:30 73 11 88/29 (48) 98 06/24/18 17:00 108/45 06/24/18 17:00 75 16 108/45 (66) 98 06/24/18 16:30 75 18 114/49 (70) 96 06/24/18 16:00 Nasal Cannula 2.0 06/24/18 16:00 98.5 75 19 100/41 (60) 98 06/24/18 16:00 75 06/24/18 16:00 100/41 06/24/18 15:30 73 19 101/46 (64) 99 06/24/18 15:00 73 17 118/59 (78) 99 06/24/18 15:00 118/59 06/24/18 14:30 72 19 118/38 (64) 99 06/24/18 14:00 72 19 102/59 (73) 98 06/24/18 14:00 102/59 06/24/18 13:30 70 15 86/41 (56) 99 06/24/18 13:00 103/37 06/24/18 13:00 71 15 103/37 (59) 100 06/24/18 12:30 73 19 103/48 (66) 98 06/24/18 12:06 120/42 06/24/18 12:00 98.4 72 18 120/42 (68) 98 06/24/18 12:00 73 06/24/18 12:00 120/42 06/24/18 12:00 Nasal Cannula 2.0 06/24/18 11:30 72 18 102/43 (62) 98 06/24/18 11:00 70 14 90/40 (57) 99 06/24/18 11:00 90/40 Intake and Output 06/24/18 06/25/18 19:00 07:00 Intake Total 1003.125 ml 306.25 ml Balance 1003.125 ml 306.25 ml Intake Oral 860 ml 220 ml IV Total 143.125 ml 86.25 ml # Voids 2 # Bowel Movements 1 1 Height (Feet): 5 Height (Inches): 6.00 Weight (Pounds): 205 Objective Blind Cv RR Lungs CTA Abd SNT. BS + E Rt AKA stump clean. Lt. deep heel ulcer. Neuro A+ O . @ times delusional Brenda Fuller MD Jun 25, 2018 10:30
--- NOTE | 2018-06-25 11:45 | NUR ---
NURSE NOTES: Patient diet increased to normal texture, patient is with son at the bedside talking on the telephone, patient remain on 2l/min nasal cannula with no distress noted saturating at 95%, will continue plan of care.
--- NOTE | 2018-06-25 11:52 | Infectious Diseases Prog Note ---
Assessment/Plan Assessment/Plan A; Calcaneal osteomyelitis DM ESRD on HD AMS PVD Diabetic retinopathy Mitral & Tricuspid regurgitation Elevated troponin Hypotension improving P; continue Meropenem X 30 days Subjective ROS Limited/Unobtainable: No Constitutional: Reports: no symptoms Respiratory: Reports: no symptoms Gastrointestinal/Abdominal: Reports: no symptoms Genitourinary: Reports: no symptoms Allergies: Coded Allergies: BENAZEPRIL (Verified Allergy, Unknown, 06/12/18) CODEINE (Verified Allergy, Unknown, 06/12/18) INSULIN ASPART (Verified Allergy, Unknown, 06/12/18) INSULIN DETEMIR (Verified Allergy, Unknown, 06/12/18) OPIOIDS - MORPHINE ANALOGUES (Verified Allergy, Unknown, 06/12/18) Objective Vital Signs Last 24 Hour Vital Signs Date Time Temp Pulse Resp B/P (MAP) Pulse Ox O2 Delivery O2 Flow Rate FiO2 06/25/18 11:30 72 22 95/77 (83) 99 06/25/18 11:00 110/39 06/25/18 11:00 72 22 110/39 (62) 99 06/25/18 10:30 74 20 97/51 (66) 97 06/25/18 10:00 73 22 105/65 (78) 97 06/25/18 10:00 105/63 06/25/18 09:56 Nasal Cannula 2.0 28 06/25/18 09:55 98 Nasal Cannula 2.0 28 06/25/18 09:30 74 19 116/47 (70) 96 06/25/18 09:00 73 19 107/48 (67) 97 06/25/18 09:00 105/72 06/25/18 08:30 73 18 117/64 (81) 98 06/25/18 08:00 Nasal Cannula 2.0 06/25/18 08:00 102/40 06/25/18 08:00 73 17 106/65 (79) 98 06/25/18 08:00 73 06/25/18 07:00 121/50 06/25/18 07:00 76 19 121/50 (73) 96 06/25/18 06:30 75 19 116/42 (66) 96 06/25/18 06:00 74 18 107/29 (55) 94 06/25/18 06:00 107/29 06/25/18 05:30 75 20 102/37 (58) 98 06/25/18 05:00 74 18 103/35 (57) 97 06/25/18 05:00 103/35 06/25/18 04:30 73 19 100/35 (56) 98 06/25/18 04:00 97.6 72 19 86/35 (52) 96 06/25/18 04:00 Nasal Cannula 2.0 06/25/18 04:00 86/35 06/25/18 03:31 71 06/25/18 03:30 71 21 100/42 (61) 98 06/25/18 03:00 102/40 06/25/18 03:00 72 17 102/40 (60) 98 06/25/18 02:30 71 14 97/65 (76) 97 06/25/18 02:00 74 19 100/61 (74) 92 06/25/18 02:00 108/61 06/25/18 01:30 73 19 112/44 (66) 96 06/25/18 01:00 72 14 96/49 (65) 98 06/25/18 01:00 96/49 06/25/18 00:30 72 14 100/43 (62) 98 06/25/18 00:02 75 06/25/18 00:00 97.8 74 17 105/39 (61) 96 06/25/18 00:00 Nasal Cannula 2.0 06/25/18 00:00 111/60 06/24/18 23:30 74 19 106/39 (61) 97 06/24/18 23:00 70 19 102/54 (70) 97 06/24/18 23:00 102/54 06/24/18 22:30 74 19 110/51 (70) 96 06/24/18 22:00 107/44 06/24/18 22:00 71 14 107/44 (65) 97 06/24/18 21:30 75 15 124/53 (76) 98 06/24/18 21:00 111/46 06/24/18 21:00 77 19 111/46 (67) 97 06/24/18 20:30 75 18 119/53 (75) 97 06/24/18 20:00 Nasal Cannula 2.0 06/24/18 20:00 87/42 06/24/18 20:00 97.6 69 13 87/43 (58) 98 06/24/18 19:30 65 14 81/39 (53) 97 06/24/18 19:26 68 06/24/18 19:12 98 Nasal Cannula 2.0 28 06/24/18 19:12 Nasal Cannula 2.0 28 06/24/18 19:00 70 19 92/49 (63) 97 06/24/18 19:00 92/49 06/24/18 18:30 74 20 122/50 (74) 98 06/24/18 18:30 122/50 06/24/18 18:00 73 19 104/59 (74) 98 06/24/18 18:00 104/59 06/24/18 17:30 73 11 88/29 (48) 98 06/24/18 17:00 108/45 06/24/18 17:00 75 16 108/45 (66) 98 06/24/18 16:30 75 18 114/49 (70) 96 06/24/18 16:00 Nasal Cannula 2.0 06/24/18 16:00 98.5 75 19 100/41 (60) 98 06/24/18 16:00 75 06/24/18 16:00 100/41 06/24/18 15:30 73 19 101/46 (64) 99 06/24/18 15:00 73 17 118/59 (78) 99 06/24/18 15:00 118/59 06/24/18 14:30 72 19 118/38 (64) 99 06/24/18 14:00 72 19 102/59 (73) 98 06/24/18 14:00 102/59 06/24/18 13:30 70 15 86/41 (56) 99 06/24/18 13:00 103/37 06/24/18 13:00 71 15 103/37 (59) 100 06/24/18 12:30 73 19 103/48 (66) 98 06/24/18 12:06 120/42 06/24/18 12:00 98.4 72 18 120/42 (68) 98 06/24/18 12:00 73 06/24/18 12:00 120/42 06/24/18 12:00 Nasal Cannula 2.0 Height (Feet): 5 Height (Inches): 6.00 Weight (Pounds): 205 HEENT: other Respiratory/Chest: lungs clear Cardiovascular: normal rate, other - left arm PICC line Abdomen: soft, non tender Extremities: other - edema Skin: ulcers Neurologic/Psychiatric: alert, responsive Current Medications Medications (Trade) Dose Ordered Sig/Andre Route PRN Reason Start Time Stop Time Status Last Admin Dose Admin Acetaminophen (Tylenol) 500 mg Q6H PRN ORAL Mild Pain/Temp > 100.5 06/16/18 02:15 07/13/18 08:14 06/25/18 00:00 Aspirin (ASA) 81 mg DAILY ORAL 06/16/18 09:00 07/13/18 08:59 06/25/18 09:17 Atorvastatin Calcium (Lipitor) 10 mg BEDTIME ORAL 06/16/18 21:00 07/13/18 20:59 06/24/18 20:51 Chlorhexidine Gluconate (Fabiola-Hex 2%) 1 applic DAILY@1999 TOPIC 06/18/18 20:00 07/18/18 19:59 06/24/18 19:53 Collagenase (Santyl) 1 applic DAILY TOPIC 06/16/18 09:00 07/13/18 08:59 06/25/18 09:19 Dextrose (Dextrose 50%) 25 ml Q30M PRN IV Hypoglycemia 06/17/18 20:15 07/17/18 20:14 Dextrose (Dextrose 50%) 50 ml Q30M PRN IV Hypoglycemia 06/17/18 20:15 07/17/18 20:14 Dopamine HCl/ Dextrose 250 ml @ 0 mls/hr Q24H IV 06/19/18 11:30 07/19/18 11:29 06/24/18 12:06 Haloperidol Lactate (Haldol) 5 mg Q6H PRN IM Agitation 06/21/18 13:15 07/21/18 13:14 Heparin Sodium (Porcine) (Heparin 5000 units/ml) 5,000 units EVERY 12 HOURS SUBQ 06/16/18 09:00 07/13/18 08:59 06/25/18 09:21 Heparin Sodium (Porcine) (Heparin Sod 1000 units/ml 10ml) 2,000 unit ONCE IV 06/26/18 10:30 06/26/18 23:59 Insulin Aspart (NovoLOG) BEFORE MEALS AND HS SUBQ 06/17/18 21:00 07/17/18 20:59 06/23/18 20:35 Loperamide HCl (Imodium) 4 mg Q4H PRN ORAL diarrhea 06/16/18 03:45 07/14/18 15:40 06/22/18 12:29 Meropenem 500 mg/ Sodium Chloride 55 ml @ 110 mls/hr Q24H IVPB 06/16/18 14:00 06/28/18 13:59 06/24/18 14:33 Multivitamins Therapeutic (Therapeutic Multivitamin) 1 ea DAILY ORAL 06/16/18 09:00 07/13/18 08:59 06/25/18 09:17 Pantoprazole (Protonix) 40 mg DAILY ORAL 06/16/18 09:00 07/13/18 08:59 06/25/18 09:17 Sodium Chloride 1,000 ml @ 500 mls/hr Q2H PRN IVLG sbp<90 during hd 06/26/18 10:30 06/26/18 23:59 Joe Melgar MD Jun 25, 2018 11:52
[2018-06-25] MEDS: DOPamine 400mg/250ml 250 ML IV SCH ×2 (12:00→23:56)
--- NOTE | 2018-06-25 12:27 | NUR ---
CASE MANAGEMENT: REVIEW 06/25/2018 SI: RENAL FAILURE ON HD T 97.6 HR 72 RR 19 B/P 86/35 SATS 96% ON 2L/NC NO LABS TODAY IS: MEROPENEM IV Q24HR DOPAMINE IV PER PARAMETERS NOVOLOG SUBQ AC/HS ICU STATUS DCP: PATIENT IS FROM [facility]
--- NOTE | 2018-06-25 13:45 | NUR ---
NURSE NOTES: Dr. Key advice to place BP cuff on right forearm for a accurate BP, she is at the bedside,
--- NOTE | 2018-06-25 13:59 | Cardiology Progress Note ---
Assessment/Plan Assessment/Plan BP measurements might be not reliable, will attempt to check her BP more reliable way Subjective Subjective unfortunately, BP is still low she is on 1.5 mg of dopamine, mean BP is 67 Objective Last 24 Hour Vital Signs Date Time Temp Pulse Resp B/P (MAP) Pulse Ox O2 Delivery O2 Flow Rate FiO2 06/25/18 12:00 Nasal Cannula 2.0 06/25/18 12:00 104/28 06/25/18 12:00 72 06/25/18 11:30 72 22 95/77 (83) 99 06/25/18 11:00 110/39 06/25/18 11:00 72 22 110/39 (62) 99 06/25/18 10:30 74 20 97/51 (66) 97 06/25/18 10:00 73 22 105/65 (78) 97 06/25/18 10:00 105/63 06/25/18 09:56 Nasal Cannula 2.0 28 06/25/18 09:55 98 Nasal Cannula 2.0 28 06/25/18 09:30 74 19 116/47 (70) 96 06/25/18 09:00 73 19 107/48 (67) 97 06/25/18 09:00 105/72 06/25/18 08:30 73 18 117/64 (81) 98 06/25/18 08:00 Nasal Cannula 2.0 06/25/18 08:00 102/40 06/25/18 08:00 73 17 106/65 (79) 98 06/25/18 08:00 73 06/25/18 07:00 121/50 06/25/18 07:00 76 19 121/50 (73) 96 06/25/18 06:30 75 19 116/42 (66) 96 06/25/18 06:00 74 18 107/29 (55) 94 06/25/18 06:00 107/29 06/25/18 05:30 75 20 102/37 (58) 98 06/25/18 05:00 74 18 103/35 (57) 97 06/25/18 05:00 103/35 06/25/18 04:30 73 19 100/35 (56) 98 06/25/18 04:00 97.6 72 19 86/35 (52) 96 06/25/18 04:00 Nasal Cannula 2.0 06/25/18 04:00 86/35 06/25/18 03:31 71 06/25/18 03:30 71 21 100/42 (61) 98 06/25/18 03:00 102/40 06/25/18 03:00 72 17 102/40 (60) 98 06/25/18 02:30 71 14 97/65 (76) 97 06/25/18 02:00 74 19 100/61 (74) 92 06/25/18 02:00 108/61 06/25/18 01:30 73 19 112/44 (66) 96 06/25/18 01:00 72 14 96/49 (65) 98 06/25/18 01:00 96/49 06/25/18 00:30 72 14 100/43 (62) 98 06/25/18 00:02 75 06/25/18 00:00 97.8 74 17 105/39 (61) 96 06/25/18 00:00 Nasal Cannula 2.0 06/25/18 00:00 111/60 06/24/18 23:30 74 19 106/39 (61) 97 06/24/18 23:00 70 19 102/54 (70) 97 06/24/18 23:00 102/54 06/24/18 22:30 74 19 110/51 (70) 96 06/24/18 22:00 107/44 06/24/18 22:00 71 14 107/44 (65) 97 06/24/18 21:30 75 15 124/53 (76) 98 06/24/18 21:00 111/46 06/24/18 21:00 77 19 111/46 (67) 97 06/24/18 20:30 75 18 119/53 (75) 97 06/24/18 20:00 Nasal Cannula 2.0 06/24/18 20:00 87/42 06/24/18 20:00 97.6 69 13 87/43 (58) 98 06/24/18 19:30 65 14 81/39 (53) 97 06/24/18 19:26 68 06/24/18 19:12 98 Nasal Cannula 2.0 28 06/24/18 19:12 Nasal Cannula 2.0 28 06/24/18 19:00 70 19 92/49 (63) 97 06/24/18 19:00 92/49 06/24/18 18:30 74 20 122/50 (74) 98 06/24/18 18:30 122/50 06/24/18 18:00 73 19 104/59 (74) 98 06/24/18 18:00 104/59 06/24/18 17:30 73 11 88/29 (48) 98 06/24/18 17:00 108/45 06/24/18 17:00 75 16 108/45 (66) 98 06/24/18 16:30 75 18 114/49 (70) 96 06/24/18 16:00 Nasal Cannula 2.0 06/24/18 16:00 98.5 75 19 100/41 (60) 98 06/24/18 16:00 75 06/24/18 16:00 100/41 06/24/18 15:30 73 19 101/46 (64) 99 06/24/18 15:00 73 17 118/59 (78) 99 06/24/18 15:00 118/59 06/24/18 14:30 72 19 118/38 (64) 99 06/24/18 14:00 72 19 102/59 (73) 98 06/24/18 14:00 102/59 General Appearance: agitated EENT: other Neck: JVD Rhythm: NSR Cardiovascular: normal rate Respiratory/Chest: crackles/rales Abdomen: non tender, distended Extremities: other - no chnages Intake and Output 06/24/18 06/25/18 19:00 07:00 Intake Total 1003.125 ml 306.25 ml Balance 1003.125 ml 306.25 ml Intake Oral 860 ml 220 ml IV Total 143.125 ml 86.25 ml # Voids 2 # Bowel Movements 1 1 Clarisse Daley MD Jun 25, 2018 13:59
[2018-06-25] MEDS: Meropenem 500 MG in NS 55 ML IVPB SCH (14:25)
[2018-06-25] MEDS: Acetaminophen 500mg (ES) tab ORAL PRN ×3 (14:37→20:44)
--- NOTE | 2018-06-25 15:54 | NUR ---
NURSE NOTES: Patient given ice chips, she remains awake and talkative with no slur or impairment, blood pressure cuff placed to left calf. will continue to monitor.
--- NOTE | 2018-06-25 17:01 | NUR ---
NURSE NOTES: [facility] called to inform of hemodialysis order by obdulia, nurse international controller will return call with verification,
--- NOTE | 2018-06-25 19:25 | NUR ---
NURSE NOTES: Report given to CHAPIS Ferguson. remains on dopamine at 1.5 mcg/kg/min,
[2018-06-25] MEDS: Dyna-Hex 2% Top Sol 2oz TOPIC SCH (19:46)
--- NOTE | 2018-06-25 19:50 | NUR ---
NURSE NOTES: PATIENT ALERT, ORIENTED, FORGETFUL, FOLLOWED COMMANDS, RIGHT EYE OPACITY, LEGALLY BLIND STATUS, RESPIRATION REGULAR ON O2 2LPM VIA NC, ABDOMEN SOFT, NON TENDER, HYPERACTIVE BOWEL SOUND X4 QUADRANTS, RIGHT BKA, AV SHUNT TO RIGHT UPPER ARM, PALPABLE THRILL, BRUIT, 3 LUMEN PICC LINE TO LEFT UPPER ARM, INTACT AND PATENT, ONGOING DOPAMINE 1.5MCG/KG/MIN STATUS, ON P200 BED, MADE LOWER BED POSITION, PROVIDED CALL LIGHT WITHIN REACH, WILL CONTINUE TO MONITOR.
--- NOTE | 2018-06-25 22:20 | NUR ---
NURSE NOTES: PATIENT SLEEPING STATUS, NO PAIN NOTED AFTER PAIN MANAGEMENT.
[2018-06-26] VITALS (30 sets, daily range): BP systolic 71–167; BP diastolic 36–84
--- NOTE | 2018-06-26 | NUR ---
NURSE NOTES: PATIENT AWOKE, SAID, " I NEED PRACTICE FOR SIGN NOW FOE MY SON." SHE WANTED PEN AND PAPER THAT PROVIDED.
--- NOTE | 2018-06-26 00:18 | NUR ---
NURSE NOTES: PATIENT STRONGLY WANTED TO CALL HER DAUGHTER THAT CALLED BUT MAIL BOX FULL, COULD NOT LEFT MESSAGE. PATIENT CALLED SON THAT DID NOT ANSWERING STATUS, SHE WANTED TO CALL HER SISTER WHO IS [employer] THAT LEFT MESSAGE ABOUT HER SITUATION AT THIS TIME, WILL CONTINUE TO MONITOR.
[2018-06-26] MEDS: Acetaminophen 500mg (ES) tab ORAL PRN ×2 (02:39→14:31)
--- NOTE | 2018-06-26 02:39 | NUR ---
NURSE NOTES: GIVEN TYLENOL 500MG BY PO FOR PAIN, WILL CONTINUE TO MONITOR.
--- NOTE | 2018-06-26 04:30 | NUR ---
NURSE NOTES: MORNING CARE WAS DONE, NO BOWEL MOVEMENT.
[2018-06-26] MEDS: NovoLOG Insulin Flexpen SUBQ SCH ×4 (06:07→20:44)
--- NOTE | 2018-06-26 06:10 | NUR ---
NURSE NOTES: NO ACUTE DISTRESS NOTED AT THIS SHIFT.
--- NOTE | 2018-06-26 06:56 | NUR ---
NURSE NOTES: CALLED [facility] REGARDING DIALYSIS TODAY PER 'S ORDER THAT EXCHANGER WAS AWARE.
--- NOTE | 2018-06-26 07:15 | NUR ---
HAND-OFF: Report given to MELIDA/CHAPIS.
--- NOTE | 2018-06-26 08:11 | NUR ---
NURSE NOTES: Report received from CHAPIS Salmon. Awake , afebrile when received with episode of agitation.MARCELO picc line patent running dopamine drip at 1/5mcg /hr. On NC at 2LPM and saturate at 97%.SR on the monitor, left heel ST3 and sacral redness, turned and repositioned, good pericare done.Kept clean dry and comfortable.Will continue to monitor.
[2018-06-26] MEDS: Aspirin Baby 81mg ORAL SCH (08:37)
[2018-06-26] MEDS: Multivitamin w/Minerals tab ORAL SCH (08:38)
[2018-06-26] MEDS: Heparin 5000 units/ml inj SUBQ SCH ×2 (08:40→20:44)
--- NOTE | 2018-06-26 09:00 | Nephrology Progress Note ---
Assessment/Plan Plan Hypotension - R/O new sepsis - on IV Abx per ID. May be factitious due to wrong measuring method! DW RNs. DC'ed all meds with potential to lower BP. L heel ulcer - Podiatry following. 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 Heel Ulcer - local care. Cardiac Status reviewed with Dr. Daley. 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 Pt. not a candidate for MVR due to overall condition. May be a candidate for TVR if stable. Currently unstable. Trying to taper off Dopamine. Try to UF less IVF. OK for a PICC line. Subjective Subjective In ICU due to hypotension. Still on dopamine drip. Trying to taper off. Intermittent success. Nocturnal hypotension. Using large cuff on lower leg. On Dopamine drip @ <1 mcgm/Kg/Min. No new c/o. Delusional Objective Objective Last 24 Hour Vital Signs Date Time Temp Pulse Resp B/P (MAP) Pulse Ox O2 Delivery O2 Flow Rate FiO2 06/26/18 07:00 116/58 06/26/18 07:00 70 18 116/58 (77) 97 06/26/18 06:30 68 15 99/50 (66) 100 06/26/18 06:00 94/44 06/26/18 06:00 68 15 94/44 (61) 100 06/26/18 05:30 71 17 123/50 (74) 100 06/26/18 05:00 71 15 119/54 (75) 100 06/26/18 04:30 69 20 113/48 (69) 100 06/26/18 04:00 Nasal Cannula 2.0 06/26/18 04:00 116/45 06/26/18 04:00 97.5 72 21 116/45 (68) 100 06/26/18 03:35 72 06/26/18 03:30 73 18 104/36 (58) 100 06/26/18 03:00 120/56 06/26/18 03:00 73 13 120/56 (77) 100 06/26/18 02:30 74 17 119/52 (74) 97 06/26/18 02:00 74 18 129/58 (81) 98 06/26/18 02:00 129/58 06/26/18 01:30 74 18 128/53 (78) 97 06/26/18 01:00 72 19 104/58 (73) 99 18 01:00 104/58 06/26/18 00:30 72 15 115/81 (92) 98 06/26/18 00:00 Nasal Cannula 2.0 06/26/18 00:00 130/55 06/26/18 00:00 97.6 73 18 130/55 (80) 97 06/25/18 23:56 119/50 06/25/18 23:42 73 06/25/18 23:30 71 15 108/42 (64) 97 06/25/18 23:00 75 14 123/57 (79) 97 06/25/18 23:00 123/57 06/25/18 22:30 76 17 124/47 (72) 97 06/25/18 22:00 75 18 126/55 (78) 97 06/25/18 22:00 126/55 06/25/18 21:30 74 17 120/56 (77) 98 06/25/18 21:00 72 12 102/51 (68) 100 06/25/18 21:00 102/51 06/25/18 20:00 97.5 72 15 105/54 (71) 97 06/25/18 20:00 98/41 06/25/18 20:00 Nasal Cannula 2.0 06/25/18 19:30 73 18 98/41 (60) 95 06/25/18 19:25 73 06/25/18 19:11 Nasal Cannula 2.0 28 06/25/18 19:11 99 Nasal Cannula 2.0 28 06/25/18 19:00 73 17 111/67 (82) 97 06/25/18 18:30 75 17 113/57 (75) 95 06/25/18 18:00 74 20 116/53 (74) 94 18 17:30 90 26 124/63 (83) 100 06/25/18 17:00 73 19 113/47 (69) 96 06/25/18 17:00 113/47 06/25/18 16:30 73 19 106/51 (69) 94 06/25/18 16:00 97.6 73 19 109/55 (73) 95 06/25/18 16:00 Nasal Cannula 2.0 06/25/18 16:00 109/55 06/25/18 16:00 73 06/25/18 15:30 72 19 105/42 (63) 97 06/25/18 15:00 103/47 06/25/18 15:00 71 16 103/47 (65) 96 06/25/18 14:30 70 18 104/52 (69) 96 06/25/18 14:00 102/58 06/25/18 14:00 83 13 119/73 (88) 94 06/25/18 13:30 80 20 117/69 (85) 96 06/25/18 13:00 80 22 133/69 (90) 94 06/25/18 13:00 96/29 06/25/18 12:30 79 21 108/55 (72) 94 06/25/18 12:00 98.6 76 14 116/63 (80) 94 06/25/18 12:00 Nasal Cannula 2.0 06/25/18 12:00 104/28 06/25/18 12:00 72 06/25/18 11:30 72 22 95/77 (83) 99 06/25/18 11:00 110/39 06/25/18 11:00 72 22 110/39 (62) 99 06/25/18 10:30 74 20 97/51 (66) 97 06/25/18 10:00 73 22 105/65 (78) 97 06/25/18 10:00 105/63 06/25/18 09:56 Nasal Cannula 2.0 28 06/25/18 09:55 98 Nasal Cannula 2.0 28 06/25/18 09:30 74 19 116/47 (70) 96 06/25/18 09:00 73 19 107/48 (67) 97 06/25/18 09:00 105/72 Intake and Output 06/25/18 06/26/18 19:00 07:00 Intake Total 733.125 ml 455.000 ml Balance 733.125 ml 455.000 ml Intake Oral 620 ml 380 ml IV Total 113.125 ml 75.000 ml # Voids 1 # Bowel Movements 1 Height (Feet): 5 Height (Inches): 6.00 Weight (Pounds): 210 Objective Blind Cv RR Lungs CTA Abd SNT. BS + E Rt AKA stump clean. Lt. deep heel ulcer. Neuro A+ O . @ times delusional Shechter,Pagiel MD Jun 26, 2018 09:00
--- NOTE | 2018-06-26 09:48 | NUR ---
CASE MANAGEMENT: REVIEW SI: RENAL FAILURE ON HD T 97.5 HR 72 RR 21 BP 94/44 SAT 100% NC/2L WBC 4.0 H/H 10.0/33.9 IS: MEROPENEM IV Q24HR DOPAMINE IV Q24HR HEPARIN IV PRN NOVOLOG SQ AC/HS ICU STATUS DCP: PATIENT IS FROM [facility]
--- NOTE | 2018-06-26 10:15 | NUR ---
NURSE NOTES: Turned and repositioned for skin management, dopamine drip on hold. SBP>90. Will continue to monitor
[2018-06-26] MEDS ORDERED: Heparin Sod 1000 units/ml 10ml IV SCH (10:30)
[2018-06-26] MEDS: DOPamine 400mg/250ml 250 ML IV SCH (11:16)
--- NOTE | 2018-06-26 12:06 | NUR ---
NURSE NOTES: Ongoing dialysis and dopamine drip restarted due to MAP<60. Will continue to monitor
--- NOTE | 2018-06-26 12:22 | General Progress Note ---
Assessment/Plan Problem List: (1) Encephalopathy acute ICD Codes: G93.40 - Encephalopathy, unspecified SNOMED: [id number], [id number] Status: stable Assessment/Plan the pt lacks capacity to refuse medications the pt lacks capacity to leave ama haldol prn ativan prn soft restraints. Subjective Neurologic/Psychiatric: Reports: anxiety, depressed Allergies: Coded Allergies: BENAZEPRIL (Verified Allergy, Unknown, 06/12/18) CODEINE (Verified Allergy, Unknown, 06/12/18) INSULIN ASPART (Verified Allergy, Unknown, 06/12/18) INSULIN DETEMIR (Verified Allergy, Unknown, 06/12/18) OPIOIDS - MORPHINE ANALOGUES (Verified Allergy, Unknown, 06/12/18) Subjective not hallucinating today more alert not agitated still on Dopamine drip Objective Last 24 Hour Vital Signs Date Time Temp Pulse Resp B/P (MAP) Pulse Ox O2 Delivery O2 Flow Rate FiO2 06/26/18 11:16 108/70 06/26/18 11:00 62 18 108/70 (83) 98 06/26/18 10:00 62 18 108/42 (64) 98 06/26/18 09:00 60 18 148/63 (91) 100 06/26/18 08:00 71 06/26/18 08:00 71 18 133/52 (79) 100 06/26/18 08:00 Nasal Cannula 2.0 06/26/18 07:00 116/58 06/26/18 07:00 70 18 116/58 (77) 97 06/26/18 06:30 68 15 99/50 (66) 100 06/26/18 06:00 94/44 06/26/18 06:00 68 15 94/44 (61) 100 06/26/18 05:30 71 17 123/50 (74) 100 06/26/18 05:00 71 15 119/54 (75) 100 06/26/18 04:30 69 20 113/48 (69) 100 06/26/18 04:00 Nasal Cannula 2.0 06/26/18 04:00 116/45 06/26/18 04:00 97.5 72 21 116/45 (68) 100 06/26/18 03:35 72 06/26/18 03:30 73 18 104/36 (58) 100 06/26/18 03:00 120/56 06/26/18 03:00 73 13 120/56 (77) 100 06/26/18 02:30 74 17 119/52 (74) 97 06/26/18 02:00 74 18 129/58 (81) 98 06/26/18 02:00 129/58 18 01:30 74 18 128/53 (78) 97 06/26/18 01:00 72 19 104/58 (73) 99 06/26/18 01:00 104/58 06/26/18 00:30 72 15 115/81 (92) 98 06/26/18 00:00 Nasal Cannula 2.0 06/26/18 00:00 130/55 06/26/18 00:00 97.6 73 18 130/55 (80) 97 06/25/18 23:56 119/50 06/25/18 23:42 73 06/25/18 23:30 71 15 108/42 (64) 97 06/25/18 23:00 75 14 123/57 (79) 97 06/25/18 23:00 123/57 06/25/18 22:30 76 17 124/47 (72) 97 06/25/18 22:00 75 18 126/55 (78) 97 06/25/18 22:00 126/55 06/25/18 21:30 74 17 120/56 (77) 98 06/25/18 21:00 72 12 102/51 (68) 100 06/25/18 21:00 102/51 06/25/18 20:00 97.5 72 15 105/54 (71) 97 06/25/18 20:00 98/41 06/25/18 20:00 Nasal Cannula 2.0 18 19:30 73 18 98/41 (60) 95 18 19:25 73 06/25/18 19:11 Nasal Cannula 2.0 28 06/25/18 19:11 99 Nasal Cannula 2.0 28 06/25/18 19:00 73 17 111/67 (82) 97 18 18:30 75 17 113/57 (75) 95 18 18:00 74 20 116/53 (74) 94 06/25/18 17:30 90 26 124/63 (83) 100 12/2/18 17:00 73 19 113/47 (69) 96 06/25/18 17:00 113/47 06/25/18 16:30 73 19 106/51 (69) 94 06/25/18 16:00 97.6 73 19 109/55 (73) 95 06/25/18 16:00 Nasal Cannula 2.0 06/25/18 16:00 109/55 06/25/18 16:00 73 06/25/18 15:30 72 19 105/42 (63) 97 06/25/18 15:00 103/47 06/25/18 15:00 71 16 103/47 (65) 96 06/25/18 14:30 70 18 104/52 (69) 96 06/25/18 14:00 102/58 06/25/18 14:00 83 13 119/73 (88) 94 06/25/18 13:30 80 20 117/69 (85) 96 06/25/18 13:00 80 22 133/69 (90) 94 06/25/18 13:00 96/29 06/25/18 12:30 79 21 108/55 (72) 94 Intake and Output 06/25/18 06/26/18 19:00 07:00 Intake Total 733.125 ml 455.000 ml Balance 733.125 ml 455.000 ml Intake Oral 620 ml 380 ml IV Total 113.125 ml 75.000 ml # Voids 1 # Bowel Movements 1 Height (Feet): 5 Height (Inches): 6.00 Weight (Pounds): 210 General Appearance: alert, confused - disoriented to date. waxing and waning, more alert today Abelardo Yadav MD Jun 26, 2018 12:22
--- NOTE | 2018-06-26 13:40 | NUR ---
NURSE NOTES: Seen by Dr De Leon, will follow up with new orders
[2018-06-26] MEDS: Loperamide 2mg cap ORAL PRN (14:30)
--- NOTE | 2018-06-26 14:30 | NUR ---
NURSE NOTES: Patient turned and repositioned.Dialysis done and 2L out Addendum: 06/26/18 at 1741 by Nelly Mane RN MAP>60/ Dopamine drip on hold
[2018-06-26] MEDS: Meropenem 500 MG in NS 55 ML IVPB SCH (14:31)
--- NOTE | 2018-06-26 16:11 | NUR ---
NURSE NOTES: ADLs done, turned and repositioned for skin management. Kept clean dry and comfortable
[2018-06-26 16:27] LABS: HEMATOCRIT 29.6 % (37.0-47.0); HEMOGLOBIN 9.2 G/DL (12.0-16.0); MEAN CORPUSCULAR VOLUME 88 FL (80-99); PLATELET COUNT 82 K/UL (150-450); RED BLOOD COUNT 3.36 M/UL (4.20-5.40); RED CELL DISTRIBUTION WIDTH 15.4 % (11.6-14.8); WHITE BLOOD COUNT 2.8 K/UL (4.8-10.8)
[2018-06-26 16:28] LABS: BASOPHILS % (AUTO) 0.4 % (0.0-2.0); EOSINOPHILS % (AUTO) 2.5 % (0.0-3.0); LYMPHOCYTES % (AUTO) 24.1 % (20.0-45.0); MONOCYTES % (AUTO) 6.4 % (1.0-10.0); NEUTROPHILS % (AUTO) 66.6 % (45.0-75.0)
[2018-06-26 16:42] LABS: ANION GAP 9 mmol/L (5-15); BLOOD UREA NITROGEN 45 mg/dL (7-18); CALCIUM 7.8 MG/DL (8.5-10.1); CARBON DIOXIDE 20 MMOL/L (21-32); CHLORIDE 100 MMOL/L (98-107); CREATININE 5.2 MG/DL (0.55-1.30); POTASSIUM 4.1 MMOL/L (3.5-5.1); SODIUM 129 MMOL/L (136-145)
--- NOTE | 2018-06-26 17:53 | Cardiology Progress Note ---
Assessment/Plan Assessment/Plan Off Dopamine the whole day today, post dialysis today, and BP holds stable hopefully will be transferred to step down Subjective Subjective The patient is stable the whole day today off Dopamine remains loud and screaming and talking a lot she is confabulating Objective Last 24 Hour Vital Signs Date Time Temp Pulse Resp B/P (MAP) Pulse Ox O2 Delivery O2 Flow Rate FiO2 06/26/18 17:00 62 17 117/61 (79) 98 06/26/18 16:00 65 06/26/18 16:00 97.6 64 18 98/55 (69) 98 06/26/18 16:00 Nasal Cannula 2.0 06/26/18 15:01 97.6 06/26/18 15:00 65 17 104/52 (69) 98 06/26/18 14:00 81 18 167/84 (111) 98 06/26/18 13:00 67 18 142/51 (81) 98 06/26/18 13:00 Nasal Cannula 2.0 06/26/18 12:00 98.6 57 18 71/46 (54) 98 06/26/18 12:00 81/66 06/26/18 12:00 58 06/26/18 11:16 108/70 06/26/18 11:00 62 18 108/70 (83) 98 06/26/18 10:00 62 18 108/42 (64) 98 06/26/18 09:00 60 18 148/63 (91) 100 06/26/18 09:00 121/49 06/26/18 08:00 71 06/26/18 08:00 71 18 133/52 (79) 100 06/26/18 08:00 133/50 06/26/18 08:00 Nasal Cannula 2.0 06/26/18 07:00 116/58 06/26/18 07:00 70 18 116/58 (77) 97 06/26/18 06:30 68 15 99/50 (66) 100 06/26/18 06:00 94/44 06/26/18 06:00 68 15 94/44 (61) 100 06/26/18 05:30 71 17 123/50 (74) 100 06/26/18 05:00 71 15 119/54 (75) 100 06/26/18 04:30 69 20 113/48 (69) 100 06/26/18 04:00 Nasal Cannula 2.0 06/26/18 04:00 116/45 06/26/18 04:00 97.5 72 21 116/45 (68) 100 06/26/18 03:35 72 06/26/18 03:30 73 18 104/36 (58) 100 06/26/18 03:00 120/56 06/26/18 03:00 73 13 120/56 (77) 100 06/26/18 02:30 74 17 119/52 (74) 97 06/26/18 02:00 74 18 129/58 (81) 98 06/26/18 02:00 129/58 06/26/18 01:30 74 18 128/53 (78) 97 06/26/18 01:00 72 19 104/58 (73) 99 06/26/18 01:00 104/58 06/26/18 00:30 72 15 115/81 (92) 98 06/26/18 00:00 Nasal Cannula 2.0 06/26/18 00:00 130/55 06/26/18 00:00 97.6 73 18 130/55 (80) 97 06/25/18 23:56 119/50 06/25/18 23:42 73 06/25/18 23:30 71 15 108/42 (64) 97 06/25/18 23:00 75 14 123/57 (79) 97 06/25/18 23:00 123/57 06/25/18 22:30 76 17 124/47 (72) 97 06/25/18 22:00 75 18 126/55 (78) 97 06/25/18 22:00 126/55 06/25/18 21:30 74 17 120/56 (77) 98 06/25/18 21:00 72 12 102/51 (68) 100 18 21:00 102/51 06/25/18 20:00 97.5 72 15 105/54 (71) 97 06/25/18 20:00 98/41 06/25/18 20:00 Nasal Cannula 2.0 18 19:30 73 18 98/41 (60) 95 06/25/18 19:25 73 06/25/18 19:11 Nasal Cannula 2.0 28 06/25/18 19:11 99 Nasal Cannula 2.0 28 06/25/18 19:00 73 17 111/67 (82) 97 06/25/18 18:30 75 17 113/57 (75) 95 06/25/18 18:00 74 20 116/53 (74) 94 General Appearance: agitated EENT: other Neck: JVD Rhythm: NSR Cardiovascular: regular rhythm, systolic murmur Respiratory/Chest: crackles/rales Abdomen: non tender Intake and Output 06/25/18 06/26/18 19:00 07:00 Intake Total 733.125 ml 455.000 ml Balance 733.125 ml 455.000 ml Intake Oral 620 ml 380 ml IV Total 113.125 ml 75.000 ml # Voids 1 # Bowel Movements 1 Laboratory Tests Test 06/26/18 15:00 White Blood Count 2.8 K/UL (4.8-10.8) L Red Blood Count 3.36 M/UL (4.20-5.40) L Hemoglobin 9.2 G/DL (12.0-16.0) L Hematocrit 29.6 % (37.0-47.0) L Mean Corpuscular Volume 88 FL (80-99) Mean Corpuscular Hemoglobin 27.4 PG (27.0-31.0) Mean Corpuscular Hemoglobin Concent 31.0 G/DL (32.0-36.0) L Red Cell Distribution Width 15.4 % (11.6-14.8) H Platelet Count 82 K/UL (150-450) L Mean Platelet Volume 9.4 FL (6.5-10.1) Neutrophils (%) (Auto) 66.6 % (45.0-75.0) Lymphocytes (%) (Auto) 24.1 % (20.0-45.0) Monocytes (%) (Auto) 6.4 % (1.0-10.0) Eosinophils (%) (Auto) 2.5 % (0.0-3.0) Basophils (%) (Auto) 0.4 % (0.0-2.0) Sodium Level 129 MMOL/L (136-145) L Potassium Level 4.1 MMOL/L (3.5-5.1) Chloride Level 100 MMOL/L (98-107) Carbon Dioxide Level 20 MMOL/L (21-32) L Anion Gap 9 mmol/L (5-15) Blood Urea Nitrogen 45 mg/dL (7-18) H Creatinine 5.2 MG/DL (0.55-1.30) H Estimat Glomerular Filtration Rate 9.9 mL/min (>60) Glucose Level 78 MG/DL (74-106) Calcium Level 7.8 MG/DL (8.5-10.1) L Clarisse Daley MD Jun 26, 2018 17:53
--- NOTE | 2018-06-26 17:58 | NUR ---
NURSE NOTES: Seen by Dr Daley with order to transfer patient on step down unit when room available
--- NOTE | 2018-06-26 18:10 | NUR ---
NURSE NOTES: ADls done, good pericare done.turned and repositioned for skin management
--- NOTE | 2018-06-26 19:30 | NUR ---
NURSE NOTES: RECEIVED REPORT FROM CHAPIS MONTEZ. PATIENT IS IN BED, ALERT, ORIENTED, FORGETFUL, FOLLOWED COMMANDS, IN NO ACUTE DISTRESS. 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 RIGHT EYE OPACITY, LEGALLY BLIND STATUS, RESPIRATION REGULAR ON O2 2LPM VIA NC, ABDOMEN SOFT, NON TENDER, HYPERACTIVE BOWEL SOUND X4 QUADRANTS, RIGHT BKA, LEFT HEEL WOUND AND SACRAL REDNESS ,SEE WOUNDCARE. AV SHUNT TO RIGHT UPPER ARM, PALPABLE THRILL, BRUIT, 3 LUMEN PICC LINE TO LEFT UPPER ARM, INTACT AND PATENT, ON P200 BED, MADE LOWER BED POSITION, PROVIDED CALL LIGHT WITHIN REACH, WILL CONTINUE TO MONITOR.
--- NOTE | 2018-06-26 19:39 | NUR ---
HAND-OFF: Report given to CHAPIS Mckeon.
[2018-06-26] MEDS: Dyna-Hex 2% Top Sol 2oz TOPIC SCH (20:42)
--- NOTE | 2018-06-26 21:00 | NUR ---
NURSE NOTES: PT'S RESTING IN BED, WITH EYE CLOSED, IN NO DISTRESS. VS STABLE. WAITING FOR ROOM TO TRANSFER TO [facility]. WILL CONTINUE TO MONITOR.
--- NOTE | 2018-06-26 22:30 | NUR ---
TRANSFER TO FLOOR: Patient transferred to [facility], per DR. HAYES. Report given to CHAPIS GALVAN. Pt has no belongines. Family and or S/O informed of transfer.
--- NOTE | 2018-06-26 22:31 | NUR ---
NURSE NOTES: Received report from CHAPIS Mckeon. Patient lying in bed comfortaby, able to make needs known. Hooked to pvc monitor. On NC receiving 2L O2. No respiratory distress at moment. On renal diet with Dimitry supplement. Skin alterations noted. Right below knee amputation noted. PICC line on Left upper arm. AV shunt on Right upper arm. Bed in lowest position. Bed alarm on. Will continue to monitor.
[2018-06-26] MEDS ORDERED: Loperamide 2mg cap ORAL PRN (23:45)
[2018-06-27] VITALS: BP 104/56
[2018-06-27] MEDS: Acetaminophen 500mg (ES) tab ORAL PRN ×3 (00:05→20:14)
[2018-06-27] MEDS ORDERED: Haloperidol 5mg/ml Inj IM PRN (01:15)
[2018-06-27 04:00] VITALS: BP 107/56
[2018-06-27 05:24] LABS: HEMOGLOBIN 9.9 G/DL (12.0-16.0); MEAN CORPUSCULAR VOLUME 87 FL (80-99); PLATELET COUNT 94 K/UL (150-450); RED BLOOD COUNT 3.67 M/UL (4.20-5.40); RED CELL DISTRIBUTION WIDTH 15.6 % (11.6-14.8); WHITE BLOOD COUNT 3.9 K/UL (4.8-10.8)
[2018-06-27 05:53] LABS: ALANINE AMINOTRANSFERASE 11 U/L (12-78); ALBUMIN 1.7 G/DL (3.4-5.0); ALBUMIN/GLOBULIN RATIO 0.3 (1.0-2.7); ALKALINE PHOSPHATASE 132 U/L (46-116); ANION GAP 8 mmol/L (5-15); ASPARTATE AMINO TRANSFERASE 12 U/L (15-37); BILIRUBIN,TOTAL 0.2 MG/DL (0.2-1.0); BLOOD UREA NITROGEN 48 mg/dL (7-18); CALCIUM 8.3 MG/DL (8.5-10.1); CARBON DIOXIDE 21 MMOL/L (21-32); CHLORIDE 99 MMOL/L (98-107); CREATININE 5.5 MG/DL (0.55-1.30); POTASSIUM 4.5 MMOL/L (3.5-5.1); SODIUM 128 MMOL/L (136-145)
[2018-06-27] MEDS: NovoLOG Insulin Flexpen SUBQ SCH ×4 (06:28→20:15)
[2018-06-27 08:00] VITALS: BP 121/62
--- NOTE | 2018-06-27 08:02 | NUR ---
NURSE NOTES: Report received from CHAPIS Whyte. Observed patient in bed sleeping. Arousable by voice and verbally responsive. Denies pain at this time. Receiving 2L of oxygen via N/C with no distress noted. PICC line intact and patent. Bed in lowest position. Call light within reach. Will continue to monitor.
--- NOTE | 2018-06-27 08:02 | NUR ---
HAND-OFF: Report given to CHAPIS Waldrop.
[2018-06-27] MEDS: Heparin 5000 units/ml inj SUBQ SCH ×2 (09:00→20:18)
[2018-06-27] MEDS: Aspirin Baby 81mg ORAL SCH (09:24)
[2018-06-27] MEDS: Multivitamin w/Minerals tab ORAL SCH (09:24)
--- NOTE | 2018-06-27 10:22 | Infectious Diseases Prog Note ---
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 renal failure 3. diabetes mellitus 4. hypertension 5. rectal VRE colonization P 1. continue meropenem 29 more days 2. will follow up cultures Subjective Constitutional: Denies: fever, chills Respiratory: Denies: shortness of breath, dry cough Gastrointestinal/Abdominal: Denies: nausea, vomiting, diarrhea Musculoskeletal: Denies: pain Allergies: Coded Allergies: BENAZEPRIL (Verified Allergy, Unknown, 06/12/18) CODEINE (Verified Allergy, Unknown, 06/12/18) INSULIN ASPART (Verified Allergy, Unknown, 06/12/18) INSULIN DETEMIR (Verified Allergy, Unknown, 06/12/18) OPIOIDS - MORPHINE ANALOGUES (Verified Allergy, Unknown, 06/12/18) Objective Vital Signs Last 24 Hour Vital Signs Date Time Temp Pulse Resp B/P (MAP) Pulse Ox O2 Delivery O2 Flow Rate FiO2 06/27/18 08:00 Nasal Cannula 2.0 06/27/18 08:00 98.3 57 20 121/62 (81) 97 06/27/18 04:00 98.2 56 20 107/56 (73) 97 06/27/18 04:00 57 06/27/18 04:00 Nasal Cannula 2.0 06/27/18 00:00 59 06/27/18 00:00 Nasal Cannula 2.0 06/27/18 00:00 97.6 60 20 104/56 (72) 95 06/26/18 22:00 64 17 98/56 (70) 98 06/26/18 21:00 64 17 101/60 (74) 98 06/26/18 20:00 98.0 62 17 100/50 (67) 98 06/26/18 20:00 68 06/26/18 20:00 Nasal Cannula 2.0 06/26/18 19:00 64 17 96/50 (65) 98 06/26/18 18:51 Nasal Cannula 2.0 28 06/26/18 18:51 99 Nasal Cannula 2.0 28 06/26/18 18:00 62 17 110/56 (74) 96 06/26/18 17:00 62 17 117/61 (79) 98 06/26/18 16:00 65 06/26/18 16:00 97.6 64 18 98/55 (69) 98 06/26/18 16:00 Nasal Cannula 2.0 06/26/18 15:01 97.6 06/26/18 15:00 65 17 104/52 (69) 98 06/26/18 14:00 81 18 167/84 (111) 98 06/26/18 13:00 67 18 142/51 (81) 98 06/26/18 13:00 Nasal Cannula 2.0 06/26/18 12:00 98.6 57 18 71/46 (54) 98 06/26/18 12:00 81/66 06/26/18 12:00 58 06/26/18 11:16 108/70 06/26/18 11:00 62 18 108/70 (83) 98 Height (Feet): 5 Height (Inches): 6.00 Weight (Pounds): 210 Respiratory/Chest: lungs clear Cardiovascular: normal rate, regular rhythm, no gallop/murmur Abdomen: soft, non tender, other - right stump clean, left heel ulcer, left arm PICC Laboratory Tests Test 06/26/18 15:00 06/27/18 03:45 White Blood Count 2.8 K/UL (4.8-10.8) L 3.9 K/UL (4.8-10.8) L Red Blood Count 3.36 M/UL (4.20-5.40) L 3.67 M/UL (4.20-5.40) L Hemoglobin 9.2 G/DL (12.0-16.0) L 9.9 G/DL (12.0-16.0) L Hematocrit 29.6 % (37.0-47.0) L 32.0 % (37.0-47.0) L Mean Corpuscular Volume 88 FL (80-99) 87 FL (80-99) Mean Corpuscular Hemoglobin 27.4 PG (27.0-31.0) 27.1 PG (27.0-31.0) Mean Corpuscular Hemoglobin Concent 31.0 G/DL (32.0-36.0) L 31.1 G/DL (32.0-36.0) L Red Cell Distribution Width 15.4 % (11.6-14.8) H 15.6 % (11.6-14.8) H Platelet Count 82 K/UL (150-450) L 94 K/UL (150-450) L Mean Platelet Volume 9.4 FL (6.5-10.1) 8.6 FL (6.5-10.1) Neutrophils (%) (Auto) 66.6 % (45.0-75.0) % (45.0-75.0) Lymphocytes (%) (Auto) 24.1 % (20.0-45.0) % (20.0-45.0) Monocytes (%) (Auto) 6.4 % (1.0-10.0) % (1.0-10.0) Eosinophils (%) (Auto) 2.5 % (0.0-3.0) % (0.0-3.0) Basophils (%) (Auto) 0.4 % (0.0-2.0) % (0.0-2.0) Sodium Level 129 MMOL/L (136-145) L 128 MMOL/L (136-145) L Potassium Level 4.1 MMOL/L (3.5-5.1) 4.5 MMOL/L (3.5-5.1) Chloride Level 100 MMOL/L (98-107) 99 MMOL/L (98-107) Carbon Dioxide Level 20 MMOL/L (21-32) L 21 MMOL/L (21-32) Anion Gap 9 mmol/L (5-15) 8 mmol/L (5-15) Blood Urea Nitrogen 45 mg/dL (7-18) H 48 mg/dL (7-18) H Creatinine 5.2 MG/DL (0.55-1.30) H 5.5 MG/DL (0.55-1.30) H Estimat Glomerular Filtration Rate 9.9 mL/min (>60) 9.2 mL/min (>60) Glucose Level 78 MG/DL (74-106) 94 MG/DL (74-106) Calcium Level 7.8 MG/DL (8.5-10.1) L 8.3 MG/DL (8.5-10.1) L Total Bilirubin 0.2 MG/DL (0.2-1.0) Aspartate Amino Transf (AST/SGOT) 12 U/L (15-37) L Alanine Aminotransferase (ALT/SGPT) 11 U/L (12-78) L Alkaline Phosphatase 132 U/L (46-116) H Total Protein 6.9 G/DL (6.4-8.2) Albumin 1.7 G/DL (3.4-5.0) L Globulin 5.2 g/dL Albumin/Globulin Ratio 0.3 (1.0-2.7) L Current Medications Medications (Trade) Dose Ordered Sig/Andre Route PRN Reason Start Time Stop Time Status Last Admin Dose Admin Acetaminophen (Tylenol) 500 mg Q6H PRN ORAL Mild Pain/Temp > 100.5 06/27/18 00:00 07/13/18 00:00 06/27/18 06:30 Aspirin (ASA) 81 mg DAILY ORAL 06/27/18 09:00 07/13/18 08:59 06/27/18 09:24 Atorvastatin Calcium (Lipitor) 10 mg BEDTIME ORAL 06/27/18 21:00 07/13/18 20:59 Chlorhexidine Gluconate (Fabiola-Hex 2%) 1 applic DAILY@2000 TOPIC 06/27/18 20:00 07/18/18 19:59 Collagenase (Santyl) 1 applic DAILY TOPIC 06/27/18 09:00 07/13/18 08:59 Dextrose (Dextrose 50%) 25 ml Q30M PRN IV Hypoglycemia 06/26/18 22:45 07/17/18 20:14 Dextrose (Dextrose 50%) 50 ml Q30M PRN IV Hypoglycemia 06/26/18 22:45 07/17/18 20:14 Haloperidol Lactate (Haldol) 5 mg Q6H PRN IM Agitation 06/27/18 01:15 07/21/18 13:14 Heparin Sodium (Porcine) (Heparin 5000 units/ml) 5,000 units EVERY 12 HOURS SUBQ 06/27/18 09:00 07/13/18 08:59 Insulin Aspart (NovoLOG) BEFORE MEALS AND HS SUBQ 06/27/18 06:30 07/17/18 20:59 Loperamide HCl (Imodium) 4 mg Q4H PRN ORAL diarrhea 06/26/18 23:45 07/14/18 15:40 Meropenem 500 mg/ Sodium Chloride 55 ml @ 110 mls/hr Q24H IVPB 06/27/18 14:00 06/28/18 13:59 Multivitamins Therapeutic (Therapeutic Multivitamin) 1 ea DAILY ORAL 06/27/18 09:00 07/13/18 08:59 06/27/18 09:24 Pantoprazole (Protonix) 40 mg ACBREAKFAST ORAL 06/27/18 06:30 07/27/18 06:29 06/27/18 06:28 Naya Cain MD Jun 27, 2018 10:22"
[2018-06-27 11:51] VITALS: BP 106/57
--- NOTE | 2018-06-27 12:26 | NUR ---
RD ASSESSMENT & RECOMMENDATIONS SEE CARE ACTIVITY FOR COMPLETE ASSESSMENT DAILY ESTIMATED NEEDS: Needs based on ESRD on HD, Wounds (Adj Wt 62kg) 25-30 kcals/kg 2811-3666 total kcals 1.25-1.8 g protein/kg 76-112 g total protein Fluid per MD, on HD mL/kg . total fluid mLs NUTRITION DIAGNOSIS: 1) Increased kcal, pro needs R/T wound healing and renal dysfunction as evidenced by pt w/ open left heel, sacral, and lt ischial wounds, w/ ESRD on HD. CURRENT DIET:Renal/ regular texture PO DIET RECOMMENDATIONS: RENAL, CCHO MED + Double Protein Portions (texture per DIMETHYLANILINE SULFATOR OPERATOR) ADDITIONAL RECOMMENDATIONS: 1) Wound healing: Add Dimitry 1pkt BID , Nephrovite 1 tab daily 2) Obtain dry wt post HD on a calibrated bed scale 3) Monitor lytes closely- rec to check follow up phos and mag levels 4) Consider fluid restriction if Na level does not improve (Xq=[phone]) . .
--- NOTE | 2018-06-27 12:57 | NUR ---
CASE MANAGEMENT: REVIEW SI: RENAL FAILURE ON HD T 98.7 HR 54 RR 20 BP 106/57 SAT 97% NC/2L WBC 3.9 H/H 9.9/32.0 NA 128 BUN 48 CR 5.5 IS: MEROPENEM IV Q24HR DOPAMINE IV Q24HR HEPARIN IV PRN NOVOLOG SQ AC/HS STEP DOWN UNIT STATUS DCP: PATIENT IS FROM [facility] Addendum: 06/27/18 at 1306 by DUYEN BEASLEY CM DOPAMINE IV Q24HR DC'D
--- NOTE | 2018-06-27 13:58 | Nephrology Progress Note ---
Assessment/Plan Plan Hypotension - resolving. L heel ulcer - Podiatry following. 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 Heel Ulcer - local care. Cardiac Status reviewed with Dr. Daley. 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 Pt. not a candidate for MVR due to overall condition. May be a candidate for TVR if stable. HD MWF Subjective Subjective In [facility] . Off pressors>24 h. No new c/o. Objective Objective Last 24 Hour Vital Signs Date Time Temp Pulse Resp B/P (MAP) Pulse Ox O2 Delivery O2 Flow Rate FiO2 06/27/18 12:00 Nasal Cannula 2.0 06/27/18 12:00 55 06/27/18 11:51 98.7 54 20 106/57 (73) 97 06/27/18 08:00 Nasal Cannula 2.0 06/27/18 08:00 98.3 57 20 121/62 (81) 97 06/27/18 08:00 57 06/27/18 04:00 98.2 56 20 107/56 (73) 97 06/27/18 04:00 57 06/27/18 04:00 Nasal Cannula 2.0 06/27/18 00:00 59 06/27/18 00:00 Nasal Cannula 2.0 06/27/18 00:00 97.6 60 20 104/56 (72) 95 06/26/18 22:00 64 17 98/56 (70) 98 06/26/18 21:00 64 17 101/60 (74) 98 06/26/18 20:00 98.0 62 17 100/50 (67) 98 06/26/18 20:00 68 06/26/18 20:00 Nasal Cannula 2.0 06/26/18 19:00 64 17 96/50 (65) 98 06/26/18 18:51 Nasal Cannula 2.0 28 06/26/18 18:51 99 Nasal Cannula 2.0 28 06/26/18 18:00 62 17 110/56 (74) 96 06/26/18 17:00 62 17 117/61 (79) 98 06/26/18 16:00 65 06/26/18 16:00 97.6 64 18 98/55 (69) 98 06/26/18 16:00 Nasal Cannula 2.0 06/26/18 15:01 97.6 06/26/18 15:00 65 17 104/52 (69) 98 06/26/18 14:00 81 18 167/84 (111) 98 Intake and Output 06/26/18 06/27/18 19:00 07:00 Intake Total 2511.250 ml 100 ml Output Total 2000 ml Balance 511.250 ml 100 ml Intake Oral 430 ml 100 ml IV Total 81.250 ml Hemodialysis 2000 ml Hemodialysis UF 2000 ml # Voids 1 # Bowel Movements 2 Laboratory Tests 06/26/18 15:00: White Blood Count 2.8L, Red Blood Count 3.36L, Hemoglobin 9.2L, Hematocrit 29.6L , Mean Corpuscular Volume 88, Mean Corpuscular Hemoglobin 27.4, Mean Corpuscular Hemoglobin Concent 31.0L, Red Cell Distribution Width 15.4H, Platelet Count 82L, Mean Platelet Volume 9.4, Neutrophils (%) (Auto) 66.6, Lymphocytes (%) (Auto) 24.1, Monocytes (%) (Auto) 6.4, Eosinophils (%) (Auto) 2.5, Basophils (%) (Auto) 0.4, Sodium Level 129L, Potassium Level 4.1, Chloride Level 100, Carbon Dioxide Level 20L, Anion Gap 9, Blood Urea Nitrogen 45H, Creatinine 5.2H, Estimat Glomerular Filtration Rate 9.9, Glucose Level 78, Calcium Level 7.8L 06/27/18 03:45: White Blood Count 3.9L, Red Blood Count 3.67L, Hemoglobin 9.9L, Hematocrit 32.0L , Mean Corpuscular Volume 87, Mean Corpuscular Hemoglobin 27.1, Mean Corpuscular Hemoglobin Concent 31.1L, Red Cell Distribution Width 15.6H, Platelet Count 94L, Mean Platelet Volume 8.6, Neutrophils (%) (Auto) , Lymphocytes (%) (Auto) , Monocytes (%) (Auto) , Eosinophils (%) (Auto) , Basophils (%) (Auto) , Sodium Level 128L, Potassium Level 4.5, Chloride Level 99 , Carbon Dioxide Level 21, Anion Gap 8, Blood Urea Nitrogen 48H, Creatinine 5.5H , Estimat Glomerular Filtration Rate 9.2, Glucose Level 94, Calcium Level 8.3L, Total Bilirubin 0.2, Aspartate Amino Transf (AST/SGOT) 12L, Alanine Aminotransferase (ALT/SGPT) 11L, Alkaline Phosphatase 132H, Total Protein 6.9, Albumin 1.7L, Globulin 5.2, Albumin/Globulin Ratio 0.3L Height (Feet): 5 Height (Inches): 6.00 Weight (Pounds): 236 Objective Blind Cv RR Lungs CTA Abd SNT. BS + E Rt AKA stump clean. Lt. deep heel ulcer. Neuro A+ O . @ times delusional Brenda Fuller MD Jun 27, 2018 13:58
--- NOTE | 2018-06-27 14:04 | NUR ---
NURSE NOTES: Called and spoke with Malu from [facility] HD center to confirm HD order for tomorrow.
--- NOTE | 2018-06-27 15:10 | NUR ---
NURSE NOTES: Kelli Hemodialysis nurse called back from [facility] HD center to confirm about HD order for tomorrow.
[2018-06-27] MEDS: Meropenem 500 MG in NS 55 ML IVPB SCH (15:24)
[2018-06-27 15:51] VITALS: BP 103/47
--- NOTE | 2018-06-27 19:01 | NUR ---
HAND-OFF: Report given to CHAPIS Mantilla. Stable condition.
--- NOTE | 2018-06-27 19:02 | NUR ---
NURSE NOTES: Received patient from CHAPIS Waldrop. Patient is awake, alert and oriented x3. 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 On 2L nasal cannula and showing no pain and distress. Will continue plan of care.
[2018-06-27 20:00] VITALS: BP 120/68
[2018-06-27] MEDS ORDERED: Dyna-Hex 2% Top Sol 2oz TOPIC SCH (20:00)
--- NOTE | 2018-06-27 20:15 | Progress Note ---
DATE: 06/27/2018 SUBJECTIVE: The patient has been more alert. Still has episodes of confusion, waxing and waning, and not engaged during the evaluation today. The patient is not hallucinating, however, her consciousness is still waxing and waning. MENTAL STATUS EXAMINATION: The patient is arousable. Oriented to self and place. Mood is neutral to anxious. Affect is constricted. Congruent with mood. Thought process is concrete. Thought content, no suicidal or homicidal ideations. ASSESSMENT: 1. Encephalopathy due to toxin. 2. Dementia. 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 PLAN: 1. We will continue the low dose of antipsychotics as needed. 2. Ativan p.r.n. 3. Provide the patient with reality orientation. Abelardo Yadav M.D. DR: KRISTIAN JOB#: [id number] CC:
--- NOTE | 2018-06-27 21:43 | Cardiology Progress Note ---
Assessment/Plan Assessment/Plan at present time is stable off Dopamine, but she is fluid overloaded needs to remove fluid slowly, if possible Subjective Subjective Transferred to telemetry bed alert, calling nursing loudly most of the time denies chest pain, but she is orthopneic, cannot lie down flat Objective Last 24 Hour Vital Signs Date Time Temp Pulse Resp B/P (MAP) Pulse Ox O2 Delivery O2 Flow Rate FiO2 06/27/18 19:53 96 Nasal Cannula 2.0 28 06/27/18 19:53 Nasal Cannula 2.0 28 06/27/18 16:00 Nasal Cannula 2.0 06/27/18 16:00 57 06/27/18 15:51 98.9 56 21 103/47 (65) 95 06/27/18 12:00 Nasal Cannula 2.0 06/27/18 12:00 55 06/27/18 11:51 98.7 54 20 106/57 (73) 97 06/27/18 08:00 Nasal Cannula 2.0 06/27/18 08:00 98.3 57 20 121/62 (81) 97 06/27/18 08:00 57 06/27/18 04:00 98.2 56 20 107/56 (73) 97 06/27/18 04:00 57 06/27/18 04:00 Nasal Cannula 2.0 06/27/18 00:00 59 06/27/18 00:00 Nasal Cannula 2.0 06/27/18 00:00 97.6 60 20 104/56 (72) 95 06/26/18 22:00 64 17 98/56 (70) 98 General Appearance: agitated EENT: other - both eyes sclerea are hazy Neck: JVD Rhythm: NSR Cardiovascular: systolic murmur Respiratory/Chest: decreased breath sounds, crackles/rales Abdomen: distended Extremities: other - right aka, left dressing Neurologic: other - agitated Intake and Output 06/26/18 06/27/18 19:00 07:00 Intake Total 2511.250 ml 100 ml Output Total 2000 ml Balance 511.250 ml 100 ml Intake Oral 430 ml 100 ml IV Total 81.250 ml Hemodialysis 2000 ml Hemodialysis UF 2000 ml # Voids 1 # Bowel Movements 2 Laboratory Tests Test 06/27/18 03:45 White Blood Count 3.9 K/UL (4.8-10.8) L Red Blood Count 3.67 M/UL (4.20-5.40) L Hemoglobin 9.9 G/DL (12.0-16.0) L Hematocrit 32.0 % (37.0-47.0) L Mean Corpuscular Volume 87 FL (80-99) Mean Corpuscular Hemoglobin 27.1 PG (27.0-31.0) Mean Corpuscular Hemoglobin Concent 31.1 G/DL (32.0-36.0) L Red Cell Distribution Width 15.6 % (11.6-14.8) H Platelet Count 94 K/UL (150-450) L Mean Platelet Volume 8.6 FL (6.5-10.1) Neutrophils (%) (Auto) % (45.0-75.0) Lymphocytes (%) (Auto) % (20.0-45.0) Monocytes (%) (Auto) % (1.0-10.0) Eosinophils (%) (Auto) % (0.0-3.0) Basophils (%) (Auto) % (0.0-2.0) Sodium Level 128 MMOL/L (136-145) L Potassium Level 4.5 MMOL/L (3.5-5.1) Chloride Level 99 MMOL/L (98-107) Carbon Dioxide Level 21 MMOL/L (21-32) Anion Gap 8 mmol/L (5-15) Blood Urea Nitrogen 48 mg/dL (7-18) H Creatinine 5.5 MG/DL (0.55-1.30) H Estimat Glomerular Filtration Rate 9.2 mL/min (>60) Glucose Level 94 MG/DL (74-106) Calcium Level 8.3 MG/DL (8.5-10.1) L Total Bilirubin 0.2 MG/DL (0.2-1.0) Aspartate Amino Transf (AST/SGOT) 12 U/L (15-37) L Alanine Aminotransferase (ALT/SGPT) 11 U/L (12-78) L Alkaline Phosphatase 132 U/L (46-116) H Total Protein 6.9 G/DL (6.4-8.2) Albumin 1.7 G/DL (3.4-5.0) L Globulin 5.2 g/dL Albumin/Globulin Ratio 0.3 (1.0-2.7) L Clarisse Daley MD Jun 27, 2018 21:43
[2018-06-27] MEDS ORDERED: NS 275ml ONE (22:55)
[2018-06-28] VITALS (17 sets, daily range): BP systolic 69–131; BP diastolic 16–108
--- NOTE | 2018-06-28 00:59 | NUR ---
NURSE NOTES: Patient is sleeping well. On 2L nasal cannula and saturating well at 97%. Vital signs are stable. Sponge bath given and linens changed x2. Call light in hand, bed on lowest position and bed alarm activated.
[2018-06-28] MEDS: Acetaminophen 500mg (ES) tab ORAL PRN ×2 (02:53→13:51)
[2018-06-28 05:18] LABS: HEMOGLOBIN 10.3 G/DL (12.0-16.0); MEAN CORPUSCULAR VOLUME 88 FL (80-99); PLATELET COUNT 88 K/UL (150-450); RED BLOOD COUNT 3.88 M/UL (4.20-5.40); RED CELL DISTRIBUTION WIDTH 15.4 % (11.6-14.8); WHITE BLOOD COUNT 3.9 K/UL (4.8-10.8)
[2018-06-28 06:12] LABS: ALANINE AMINOTRANSFERASE 10 U/L (12-78); ALBUMIN 1.8 G/DL (3.4-5.0); ALBUMIN/GLOBULIN RATIO 0.3 (1.0-2.7); ALKALINE PHOSPHATASE 125 U/L (46-116); ANION GAP 12 mmol/L (5-15); ASPARTATE AMINO TRANSFERASE 13 U/L (15-37); BILIRUBIN,TOTAL 0.3 MG/DL (0.2-1.0); BLOOD UREA NITROGEN 51 mg/dL (7-18); CALCIUM 8.3 MG/DL (8.5-10.1); CARBON DIOXIDE 20 MMOL/L (21-32); CHLORIDE 98 MMOL/L (98-107); POTASSIUM 4.5 MMOL/L (3.5-5.1); SODIUM 130 MMOL/L (136-145)
[2018-06-28] MEDS: NovoLOG Insulin Flexpen SUBQ SCH ×4 (06:30→20:48)
--- NOTE | 2018-06-28 07:07 | NUR ---
HAND-OFF: Report given to CHAPIS CISNEROS.
--- NOTE | 2018-06-28 07:08 | NUR ---
NURSE NOTES: Report received from CHAPIS Mantilla. Observed patient in bed. Awake and verbally responsive. Denies pain at this time. Receiving 2L of oxygen via N/C with no distress noted. PICC line intact and patent. Bed in lowest position. Call light within reach. Will continue to monitor.
--- NOTE | 2018-06-28 07:51 | Nephrology Progress Note ---
Assessment/Plan Plan Hypotension - resolving. L heel ulcer - Podiatry following. 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 Heel Ulcer - local care. Cardiac Status reviewed with Dr. Daley. 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 Pt. not a candidate for MVR due to overall condition. May be a candidate for TVR if stable. HD MWF Subjective Subjective In [id number] . More alert. No new c/o. Objective Objective Last 24 Hour Vital Signs Date Time Temp Pulse Resp B/P (MAP) Pulse Ox O2 Delivery O2 Flow Rate FiO2 06/28/18 04:00 98.6 56 16 102/55 (71) 95 06/28/18 04:00 Nasal Cannula 2.0 06/28/18 03:32 54 06/28/18 00:00 Nasal Cannula 2.0 06/28/18 00:00 53 06/28/18 00:00 97.8 54 16 97/53 (68) 97 06/27/18 20:50 57 06/27/18 20:00 98.1 56 20 120/68 (85) 97 06/27/18 20:00 Nasal Cannula 2.0 06/27/18 19:53 96 Nasal Cannula 2.0 28 06/27/18 19:53 Nasal Cannula 2.0 28 06/27/18 16:00 Nasal Cannula 2.0 06/27/18 16:00 57 06/27/18 15:51 98.9 56 21 103/47 (65) 95 06/27/18 12:00 Nasal Cannula 2.0 06/27/18 12:00 55 06/27/18 11:51 98.7 54 20 106/57 (73) 97 06/27/18 08:00 Nasal Cannula 2.0 06/27/18 08:00 98.3 57 20 121/62 (81) 97 06/27/18 08:00 57 Intake and Output 06/27/18 06/28/18 18:59 06:59 Intake Total 305 ml 100 ml Balance 305 ml 100 ml Intake Oral 250 ml 100 ml IV Total 55 ml # Voids 1 2 # Bowel Movements 2 6 Laboratory Tests 06/28/18 03:10: White Blood Count 3.9L, Red Blood Count 3.88L, Hemoglobin 10.3L, Hematocrit 34.0L, Mean Corpuscular Volume 88, Mean Corpuscular Hemoglobin 26.6L, Mean Corpuscular Hemoglobin Concent 30.4L, Red Cell Distribution Width 15.4H, Platelet Count 88L, Mean Platelet Volume 8.8, Neutrophils (%) (Auto) , Lymphocytes (%) (Auto) , Monocytes (%) (Auto) , Eosinophils (%) (Auto) , Basophils (%) (Auto) , Sodium Level 130L, Potassium Level 4.5, Chloride Level 98 , Carbon Dioxide Level 20L, Anion Gap 12, Blood Urea Nitrogen 51H, Creatinine 6.0H, Estimat Glomerular Filtration Rate 8.4, Glucose Level 92, Calcium Level 8.3L, Phosphorus Level 6.0H, Total Bilirubin 0.3, Aspartate Amino Transf (AST/ SGOT) 13L, Alanine Aminotransferase (ALT/SGPT) 10L, Alkaline Phosphatase 125H, Total Protein 7.0, Albumin 1.8L, Globulin 5.2, Albumin/Globulin Ratio 0.3L Height (Feet): 5 Height (Inches): 6.00 Weight (Pounds): 238 Objective Blind Cv RR Lungs CTA Abd SNT. BS + E Rt AKA stump clean. Lt. deep heel ulcer. Neuro A+ O . @ times delusional Bernda Fuller MD Jun 28, 2018 07:51
[2018-06-28] MEDS: Heparin 5000 units/ml inj SUBQ SCH ×2 (08:07→20:48)
[2018-06-28] MEDS: Aspirin Baby 81mg ORAL SCH (08:11)
[2018-06-28] MEDS: Multivitamin w/Minerals tab ORAL SCH (08:11)
--- NOTE | 2018-06-28 08:30 | NUR ---
NURSE NOTES: Noted with low temperature of the patient. Patient's extremities are cold also. Applied Reina hugger on the patient. Will keep checking temperature.
--- NOTE | 2018-06-28 12:15 | NUR ---
NURSE NOTES: Patient's body became warmer but still noted with low temperature. Kept Reina hugger at this time.
--- NOTE | 2018-06-28 12:53 | NUR ---
CASE MANAGEMENT: REVIEW SI: RENAL FAILURE ON HD T 90.9 HR 54 RR 16 BP 97/53 SAT 93% NC/2L WBC 3.9 H/H 10.3/34.0 NA 130 IS: MEROPENEM IV Q24HR HEPARIN IV PRN NOVOLOG SQ AC/HS STEP DOWN UNIT STATUS DCP: PATIENT IS FROM [facility]
[2018-06-28] MEDS: Meropenem 500 MG in NS 55 ML IVPB SCH (13:40)
[2018-06-28] MEDS ORDERED: Heparin Sod 1000 units/ml 10ml IV SCH (14:00)
[2018-06-28] MEDS ORDERED: Heparin Sod 1000 units/ml 10ml IV PRN ×2 (14:15→18:45)
--- NOTE | 2018-06-28 15:32 | NUR ---
NURSE NOTES: Noted the PICC line is pulling out from the site. Tip of the line is still inside. Able to draw blood from the PICC line. Keep the site with Tegaderm and ordered STAT chest xray.
--- NOTE | 2018-06-28 16:19 | NUR ---
NURSE NOTES: Received the call from Dr. Acosta regarding xray result due to pulling out PICC line. Dr. Acosta said it is not in the IVC anymore but is still in the subclavian so we can use it for administer the medication but not use for TPN or Chemotherapy. Dr. Acosta said he also found something in her left lung so communicated with Dr. Fuller regarding xray result. Dr. Acosta said Dr. Fuller will put CT order for the patient.
--- NOTE | 2018-06-28 16:29 | Diagnostic Imaging Report ---
Indication: Evaluation of PICC position Technique: One view of the chest Comparison: 06/20/2018 post PICC radiograph Findings: Interim retraction of previously demonstrated PICC, tip now projected at the level of the left subclavian vein. Unusual appearance to the left lung, with appearance suggestive a large pleural effusion as previously. No lung markings are present but the left hemithorax is more lucent than would be expected if the lung were completely atelectatic. Again demonstrated is a large right pleural effusion and some perihilar parenchymal atelectasis and consolidation, appearance similar to the prior exam.. Proximal esophagus appears distended with air Impression: Left PICC has retracted to the left subclavian vein, still remains usable as a midline in this position Unusual appearance to the left hemithorax. Suspect that this just represents supine positioning of the patient with posterior layering of the pleural fluid and resultant obscuration of the lung markings, but complete atelectasis of the left lung not excludable. Consider CT to clarify Distended proximal esophagus, nonspecific Findings discussed by phone with patient's nurse as well as Dr. Cosme at the time of interpretation
--- NOTE | 2018-06-28 16:32 | NUR ---
NURSE NOTES: Called [facility] hemodialysis center to ask about HD order for today. HD nurse called and he is with other patient now. He will come after he finished with other patient.
--- NOTE | 2018-06-28 17:50 | NUR ---
NURSE NOTES: Dialysis nurse came to start HD for the patient and noted with low blood pressure of 79/32. Patient is hardly arousable but still responsive. Put the patient in Trendelenburg position and checked blood pressure again. BP is elevated to 94/37. Called and left message to Dr. Fuller.
--- NOTE | 2018-06-28 18:15 | NUR ---
NURSE NOTES: Dr. Daley is here to check the patient. Informed Dr. Daley about low blood pressure. Dr. Daley ordered to transfer the patient to ICU for Dopamine drip. Order carried out.
--- NOTE | 2018-06-28 18:30 | NUR ---
NURSE NOTES: Transferred the patient to ICU. Report given to Sammie Carter RN. front desk monitor removed. Belongings checked and sent with patient.
--- NOTE | 2018-06-28 18:45 | NUR ---
NURSE NOTES: Report received from William Waldrop RN. Pt is awake but lethargic. BP 78/18, HR 64. Sinus rhythm on conveyor monitor. On N/C 2L. O2 sat 92%. Right UA shunt noted for HD. Left UA PICC with triple lumen patent and asymptomatic. Bed in lowest position. Side rails up x3. Will resume plan of care.
[2018-06-28] MEDS: DOPamine 400mg/250ml 250 ML IV SCH (18:59)
[2018-06-28] MEDS ORDERED: Loperamide 2mg cap ORAL PRN (19:00)
[2018-06-28] MEDS ORDERED: Haloperidol 5mg/ml Inj IM PRN (19:00)
--- NOTE | 2018-06-28 19:10 | NUR ---
HAND-OFF: Report given to CHAPIS Valentine.
--- NOTE | 2018-06-28 19:30 | NUR ---
NURSE NOTES: Received pt in bed with eyes closed, Lethargic. AOx 2. Sinus rhythm on the monitor with HR. 85. On 2L NC at this time sat 96%. Left upper arm picc line running dopamine running 5mcg/min. Picc line noted to be out more than usual, x-ray done and order is to use line as midline at this time. Dressing dry and intact. right leg BKA noted. Left heel wound dressing changed and pictures taken at this time. No signs of distress noted at this time. Will continue to monitor
[2018-06-28] MEDS: Dyna-Hex 2% Top Sol 2oz TOPIC SCH (20:08)
--- NOTE | 2018-06-28 21:00 | NUR ---
NURSE NOTES: BS 90 at this time. No coverage as per EMAR. Turned and repositioned at this time. Will continue to monitor
[2018-06-29] VITALS (48 sets, daily range): BP systolic 72–136; BP diastolic 12–82
--- NOTE | 2018-06-29 | NUR ---
NURSE NOTES: Pt continues on Dopamine gtt at this time. SBP >90. Continues on levophed at this time. Lethargic. No signs of distress noted. Will continue to monitor
--- NOTE | 2018-06-29 03:16 | NUR ---
NURSE NOTES: Turned and repositioned at this time. No signs of distress noted. Will continue to monitor
--- NOTE | 2018-06-29 05:30 | NUR ---
NURSE NOTES: BS 90 at this time. No coverage per sliding scale. Pt lethargic unable to swallow morning meds at this time. continues on dopamine gtt @ 6 mcg/min. No signs of distress noted. Will continue to monitor
[2018-06-29] MEDS: NovoLOG Insulin Flexpen SUBQ SCH ×4 (06:30→21:00)
[2018-06-29] MEDS: DOPamine 400mg/250ml 250 ML IV SCH ×2 (07:00→19:43)
--- NOTE | 2018-06-29 07:28 | NUR ---
HAND-OFF: Report given to Kieran RN using SBAR VS Stable not distress noted.
--- NOTE | 2018-06-29 07:30 | NUR ---
NURSE NOTES: Received patient CHAPIS Valentine. Patient resting in bed with eyes closed, lethargic. On 2L O2 via NC, sat 98%. No acute distress noted. SR noted on the monitor. Left upper arm triple lumen PICC line running dopamine at 6mcg/min. PICC dressing intact, clean and dry. Right upper arm AV shunt with thrill and bruit. Dressing dry and intact. Right BKA noted. Left lower extremity wound dressing intact, clean and dry. Bed in lowest position. Call light within reach. Will continue to monitor. Addendum: 06/29/18 at 1214 by ABENA GARZA RN pt on rosa turner
--- NOTE | 2018-06-29 08:14 | Nephrology Progress Note ---
Assessment/Plan Plan Worsening septic shock. Failure of IV Abx to treat left foot osteo. Need Urgent Lt. BKA. SAVANAH Luis + ID + Cardiology. All in agreement. HD tomorrow as tolerated? Subjective Subjective Back in iICU due to hypotension. Couldn't get HD last night. Objective Objective Last 24 Hour Vital Signs Date Time Temp Pulse Resp B/P (MAP) Pulse Ox O2 Delivery O2 Flow Rate FiO2 06/29/18 07:00 83 15 117/37 (63) 98 06/29/18 06:30 88 19 98/51 (67) 98 06/29/18 06:00 86 15 104/28 (53) 98 06/29/18 05:30 86 14 103/29 (53) 98 06/29/18 05:00 95 13 115/28 (57) 98 06/29/18 04:30 96 13 118/22 (54) 99 06/29/18 04:00 97.1 97 19 128/74 (92) 98 06/29/18 04:00 Nasal Cannula 2.0 06/29/18 04:00 88 06/29/18 03:30 94 15 111/43 (65) 99 06/29/18 03:00 85 15 72/28 (43) 99 06/29/18 02:30 84 16 111/12 (45) 99 06/29/18 02:00 86 13 110/28 (55) 99 06/29/18 01:30 86 13 113/26 (55) 98 06/29/18 01:00 87 16 104/37 (59) 98 06/29/18 00:30 88 16 110/21 (50) 98 06/29/18 00:00 88 06/29/18 00:00 Nasal Cannula 2.0 06/29/18 00:00 103/53 06/29/18 00:00 96.7 87 19 103/53 (70) 98 06/28/18 23:30 83 12 85/23 (43) 97 06/28/18 23:00 82 13 100/20 (46) 96 06/28/18 22:30 90 16 125/51 (75) 97 06/28/18 22:00 85 16 119/29 (59) 97 06/28/18 21:30 95 14 131/73 (92) 97 06/28/18 21:00 93 20 103/42 (62) 96 06/28/18 20:45 89 20 89/60 (70) 96 06/28/18 20:30 93 21 76/51 (59) 96 06/28/18 20:15 97 21 69/27 (41) 95 06/28/18 20:00 Nasal Cannula 2.0 28 06/28/18 20:00 92 06/28/18 20:00 Nasal Cannula 2.0 06/28/18 20:00 96 21 126/108 (114) 96 06/28/18 20:00 97 Nasal Cannula 2.0 28 06/28/18 19:45 97 18 111/16 (47) 96 06/28/18 19:30 96.1 95 14 94/18 (43) 96 06/28/18 18:59 78/18 06/28/18 16:00 Nasal Cannula 2.0 06/28/18 16:00 95.9 59 19 121/81 (94) 93 06/28/18 16:00 60 06/28/18 12:00 54 06/28/18 12:00 90.9 57 18 97/51 (66) 95 06/28/18 12:00 Nasal Cannula 2.0 Intake and Output 06/28/18 06/29/18 18:59 06:59 Intake Total 535 ml 234.804 ml Output Total 0 ml Balance 535 ml 234.804 ml Intake Oral 480 ml IV Total 55 ml 234.804 ml Output Urine Total 0 ml # Voids 1 # Bowel Movements 6 Height (Feet): 5 Height (Inches): 6.00 Weight (Pounds): 240 Objective Blind Cv RR Lungs CTA Abd SNT. BS + E Rt AKA stump clean. Lt. deep heel ulcer. Lethargic Brenda Fuller MD Jun 29, 2018 08:14
[2018-06-29] MEDS ORDERED: Sodium Chloride 500ML 550 ML IV SCH (08:30)
[2018-06-29] MEDS ORDERED: Sodium Chloride 500ML 500 ML IV ONE ×2 (08:30)
[2018-06-29] MEDS ORDERED: NS 250 ML IVPB ONE (08:30)
--- NOTE | 2018-06-29 08:30 | NUR ---
NURSE NOTES: Dr. Fuller in facility. ordered to administer NS 250ml bolus. Will carry out order.
--- NOTE | 2018-06-29 08:32 | Nephrology Progress Note ---
Assessment/Plan Plan Worsening septic shock. Failure of IV Abx to treat left foot nonhealing and unrelenting left foot infection with progressive extension to the surrounding tissues. Now patient in septic shock. DW all consultants and unanimously support urgent intervention! Need Urgent Lt. BKAracelis. SAVANAH Luis + ID + Cardiology. All in agreement. The procedure is Emergent, life saving and needs to be done immediately!! HD tomorrow as tolerated? Subjective Subjective Back in iICU due to hypotension. Couldn't get HD last night. Objective Objective Last 24 Hour Vital Signs Date Time Temp Pulse Resp B/P (MAP) Pulse Ox O2 Delivery O2 Flow Rate FiO2 06/29/18 07:00 83 15 117/37 (63) 98 06/29/18 06:30 88 19 98/51 (67) 98 06/29/18 06:00 86 15 104/28 (53) 98 06/29/18 05:30 86 14 103/29 (53) 98 06/29/18 05:00 95 13 115/28 (57) 98 06/29/18 04:30 96 13 118/22 (54) 99 06/29/18 04:00 97.1 97 19 128/74 (92) 98 06/29/18 04:00 Nasal Cannula 2.0 06/29/18 04:00 88 06/29/18 03:30 94 15 111/43 (65) 99 06/29/18 03:00 85 15 72/28 (43) 99 06/29/18 02:30 84 16 111/12 (45) 99 06/29/18 02:00 86 13 110/28 (55) 99 06/29/18 01:30 86 13 113/26 (55) 98 06/29/18 01:00 87 16 104/37 (59) 98 06/29/18 00:30 88 16 110/21 (50) 98 06/29/18 00:00 88 06/29/18 00:00 Nasal Cannula 2.0 06/29/18 00:00 103/53 06/29/18 00:00 96.7 87 19 103/53 (70) 98 06/28/18 23:30 83 12 85/23 (43) 97 06/28/18 23:00 82 13 100/20 (46) 96 06/28/18 22:30 90 16 125/51 (75) 97 06/28/18 22:00 85 16 119/29 (59) 97 06/28/18 21:30 95 14 131/73 (92) 97 06/28/18 21:00 93 20 103/42 (62) 96 06/28/18 20:45 89 20 89/60 (70) 96 06/28/18 20:30 93 21 76/51 (59) 96 06/28/18 20:15 97 21 69/27 (41) 95 06/28/18 20:00 Nasal Cannula 2.0 28 06/28/18 20:00 92 06/28/18 20:00 Nasal Cannula 2.0 06/28/18 20:00 96 21 126/108 (114) 96 06/28/18 20:00 97 Nasal Cannula 2.0 28 06/28/18 19:45 97 18 111/16 (47) 96 06/28/18 19:30 96.1 95 14 94/18 (43) 96 06/28/18 18:59 78/18 06/28/18 16:00 Nasal Cannula 2.0 06/28/18 16:00 95.9 59 19 121/81 (94) 93 06/28/18 16:00 60 06/28/18 12:00 54 06/28/18 12:00 90.9 57 18 97/51 (66) 95 06/28/18 12:00 Nasal Cannula 2.0 Intake and Output 06/28/18 06/29/18 18:59 06:59 Intake Total 535 ml 234.804 ml Output Total 0 ml Balance 535 ml 234.804 ml Intake Oral 480 ml IV Total 55 ml 234.804 ml Output Urine Total 0 ml # Voids 1 # Bowel Movements 6 Height (Feet): 5 Height (Inches): 6.00 Weight (Pounds): 240 Objective Blind Cv RR Lungs CTA Abd SNT. BS + E Rt AKA stump clean. Lt. deep heel ulcer. Lethargic Brenda Fuller MD Jun 29, 2018 08:32
[2018-06-29] MEDS: Aspirin Baby 81mg ORAL SCH (08:54)
[2018-06-29] MEDS: Multivitamin w/Minerals tab ORAL SCH (08:55)
[2018-06-29] MEDS: Heparin 5000 units/ml inj SUBQ SCH ×2 (09:00→21:00)
--- NOTE | 2018-06-29 09:00 | NUR ---
NURSE NOTES: Left a voice message to pt's daughter, Myrtle Preston, regarding consent for left leg amputation, awaiting for call back.
[2018-06-29 09:01] LABS: BASOPHILS % (AUTO) 1.1 % (0.0-2.0); EOSINOPHILS % (AUTO) 2.6 % (0.0-3.0); HEMATOCRIT 36.5 % (37.0-47.0); HEMOGLOBIN 11.3 G/DL (12.0-16.0); LYMPHOCYTES % (AUTO) 15.9 % (20.0-45.0); MEAN CORPUSCULAR VOLUME 87 FL (80-99); MONOCYTES % (AUTO) 8.5 % (1.0-10.0); PLATELET COUNT 129 K/UL (150-450); RED BLOOD COUNT 4.18 M/UL (4.20-5.40); RED CELL DISTRIBUTION WIDTH 15.1 % (11.6-14.8); WHITE BLOOD COUNT 5.8 K/UL (4.8-10.8)
--- NOTE | 2018-06-29 09:11 | NUR ---
NURSE NOTES: Called [facility] for hemodialysis order for 06/30/18. Confirmed with Vur at [facility].
[2018-06-29 09:12] LABS: INR 1.2 (0.9-1.1)
[2018-06-29] MEDS ORDERED: NS 275ml ONE (09:12)
[2018-06-29 09:34] LABS: ANION GAP 13 mmol/L (5-15); BLOOD UREA NITROGEN 63 mg/dL (7-18); CALCIUM 8.4 MG/DL (8.5-10.1); CARBON DIOXIDE 19 MMOL/L (21-32); CHLORIDE 97 MMOL/L (98-107); CREATININE 6.4 MG/DL (0.55-1.30); POTASSIUM 4.9 MMOL/L (3.5-5.1); SODIUM 129 MMOL/L (136-145)
[2018-06-29] MEDS ORDERED: Vancomycin 1500mg IVPB ONE (10:00)
--- NOTE | 2018-06-29 10:03 | Cardiology Progress Note ---
Assessment/Plan Assessment/Plan at present time is stable off Dopamine, but she is fluid overloaded needs to remove fluid slowly, if possible Subjective Subjective [id number] Objective Last 24 Hour Vital Signs Date Time Temp Pulse Resp B/P (MAP) Pulse Ox O2 Delivery O2 Flow Rate FiO2 06/29/18 07:00 83 15 117/37 (63) 98 06/29/18 06:30 88 19 98/51 (67) 98 06/29/18 06:00 86 15 104/28 (53) 98 06/29/18 05:30 86 14 103/29 (53) 98 06/29/18 05:00 95 13 115/28 (57) 98 06/29/18 04:30 96 13 118/22 (54) 99 06/29/18 04:00 97.1 97 19 128/74 (92) 98 06/29/18 04:00 Nasal Cannula 2.0 06/29/18 04:00 88 06/29/18 03:30 94 15 111/43 (65) 99 06/29/18 03:00 85 15 72/28 (43) 99 06/29/18 02:30 84 16 111/12 (45) 99 06/29/18 02:00 86 13 110/28 (55) 99 06/29/18 01:30 86 13 113/26 (55) 98 06/29/18 01:00 87 16 104/37 (59) 98 06/29/18 00:30 88 16 110/21 (50) 98 06/29/18 00:00 88 06/29/18 00:00 Nasal Cannula 2.0 06/29/18 00:00 103/53 06/29/18 00:00 96.7 87 19 103/53 (70) 98 06/28/18 23:30 83 12 85/23 (43) 97 06/28/18 23:00 82 13 100/20 (46) 96 06/28/18 22:30 90 16 125/51 (75) 97 06/28/18 22:00 85 16 119/29 (59) 97 06/28/18 21:30 95 14 131/73 (92) 97 06/28/18 21:00 93 20 103/42 (62) 96 06/28/18 20:45 89 20 89/60 (70) 96 06/28/18 20:30 93 21 76/51 (59) 96 06/28/18 20:15 97 21 69/27 (41) 95 06/28/18 20:00 Nasal Cannula 2.0 28 06/28/18 20:00 92 06/28/18 20:00 Nasal Cannula 2.0 06/28/18 20:00 96 21 126/108 (114) 96 06/28/18 20:00 97 Nasal Cannula 2.0 28 06/28/18 19:45 97 18 111/16 (47) 96 06/28/18 19:30 96.1 95 14 94/18 (43) 96 06/28/18 18:59 78/18 06/28/18 16:00 Nasal Cannula 2.0 06/28/18 16:00 95.9 59 19 121/81 (94) 93 06/28/18 16:00 60 06/28/18 12:00 54 06/28/18 12:00 90.9 57 18 97/51 (66) 95 06/28/18 12:00 Nasal Cannula 2.0 Intake and Output 06/28/18 06/29/18 18:59 06:59 Intake Total 535 ml 234.804 ml Output Total 0 ml Balance 535 ml 234.804 ml Intake Oral 480 ml IV Total 55 ml 234.804 ml Output Urine Total 0 ml # Voids 1 # Bowel Movements 6 Laboratory Tests Test 06/29/18 08:38 White Blood Count 5.8 K/UL (4.8-10.8) Red Blood Count 4.18 M/UL (4.20-5.40) L Hemoglobin 11.3 G/DL (12.0-16.0) L Hematocrit 36.5 % (37.0-47.0) L Mean Corpuscular Volume 87 FL (80-99) Mean Corpuscular Hemoglobin 27.0 PG (27.0-31.0) Mean Corpuscular Hemoglobin Concent 30.9 G/DL (32.0-36.0) L Red Cell Distribution Width 15.1 % (11.6-14.8) H Platelet Count 129 K/UL (150-450) L Mean Platelet Volume 9.7 FL (6.5-10.1) Neutrophils (%) (Auto) 72.0 % (45.0-75.0) Lymphocytes (%) (Auto) 15.9 % (20.0-45.0) L Monocytes (%) (Auto) 8.5 % (1.0-10.0) Eosinophils (%) (Auto) 2.6 % (0.0-3.0) Basophils (%) (Auto) 1.1 % (0.0-2.0) Prothrombin Time 12.2 SEC (9.30-11.50) H Prothromb Time International Ratio 1.2 (0.9-1.1) H Activated Partial Thromboplast Time 44 SEC (23-33) H Sodium Level 129 MMOL/L (136-145) L Potassium Level 4.9 MMOL/L (3.5-5.1) Chloride Level 97 MMOL/L (98-107) L Carbon Dioxide Level 19 MMOL/L (21-32) L Anion Gap 13 mmol/L (5-15) Blood Urea Nitrogen 63 mg/dL (7-18) H Creatinine 6.4 MG/DL (0.55-1.30) H Estimat Glomerular Filtration Rate 7.9 mL/min (>60) Glucose Level 78 MG/DL (74-106) Calcium Level 8.4 MG/DL (8.5-10.1) L Clarisse Daley MD Jun 29, 2018 10:03
--- NOTE | 2018-06-29 10:55 | Infectious Diseases Prog Note ---
Assessment/Plan Assessment/Plan A; Calcaneal osteomyelitis DM ESRD on HD AMS PVD Diabetic retinopathy Mitral & Tricuspid regurgitation Elevated troponin Hypotension improving P; continue Meropenem Remains hypotensive, may benefit from surgery & amputation Subjective ROS Limited/Unobtainable: Yes Constitutional: Reports: other - hypothermic Cardiovascular: Reports: other - hypotensive on Dopamin Allergies: Coded Allergies: BENAZEPRIL (Verified Allergy, Unknown, 06/12/18) CODEINE (Verified Allergy, Unknown, 06/12/18) INSULIN ASPART (Verified Allergy, Unknown, 06/12/18) INSULIN DETEMIR (Verified Allergy, Unknown, 06/12/18) OPIOIDS - MORPHINE ANALOGUES (Verified Allergy, Unknown, 06/12/18) Objective Vital Signs Last 24 Hour Vital Signs Date Time Temp Pulse Resp B/P (MAP) Pulse Ox O2 Delivery O2 Flow Rate FiO2 06/29/18 07:00 83 15 117/37 (63) 98 06/29/18 06:30 88 19 98/51 (67) 98 06/29/18 06:00 86 15 104/28 (53) 98 06/29/18 05:30 86 14 103/29 (53) 98 06/29/18 05:00 95 13 115/28 (57) 98 06/29/18 04:30 96 13 118/22 (54) 99 06/29/18 04:00 97.1 97 19 128/74 (92) 98 06/29/18 04:00 Nasal Cannula 2.0 06/29/18 04:00 88 06/29/18 03:30 94 15 111/43 (65) 99 06/29/18 03:00 85 15 72/28 (43) 99 06/29/18 02:30 84 16 111/12 (45) 99 06/29/18 02:00 86 13 110/28 (55) 99 06/29/18 01:30 86 13 113/26 (55) 98 06/29/18 01:00 87 16 104/37 (59) 98 06/29/18 00:30 88 16 110/21 (50) 98 06/29/18 00:00 88 06/29/18 00:00 Nasal Cannula 2.0 06/29/18 00:00 103/53 06/29/18 00:00 96.7 87 19 103/53 (70) 98 06/28/18 23:30 83 12 85/23 (43) 97 06/28/18 23:00 82 13 100/20 (46) 96 06/28/18 22:30 90 16 125/51 (75) 97 06/28/18 22:00 85 16 119/29 (59) 97 06/28/18 21:30 95 14 131/73 (92) 97 06/28/18 21:00 93 20 103/42 (62) 96 06/28/18 20:45 89 20 89/60 (70) 96 06/28/18 20:30 93 21 76/51 (59) 96 06/28/18 20:15 97 21 69/27 (41) 95 06/28/18 20:00 Nasal Cannula 2.0 28 06/28/18 20:00 92 06/28/18 20:00 Nasal Cannula 2.0 06/28/18 20:00 96 21 126/108 (114) 96 06/28/18 20:00 97 Nasal Cannula 2.0 28 06/28/18 19:45 97 18 111/16 (47) 96 06/28/18 19:30 96.1 95 14 94/18 (43) 96 06/28/18 18:59 78/18 06/28/18 16:00 Nasal Cannula 2.0 06/28/18 16:00 95.9 59 19 121/81 (94) 93 06/28/18 16:00 60 06/28/18 12:00 54 06/28/18 12:00 90.9 57 18 97/51 (66) 95 06/28/18 12:00 Nasal Cannula 2.0 Height (Feet): 5 Height (Inches): 6.00 Weight (Pounds): 240 General Appearance: no acute distress HEENT: mucous membranes moist Respiratory/Chest: lungs clear Cardiovascular: normal rate, other - left arm PICC line Abdomen: soft, non tender Extremities: other - edema Skin: ulcers Neurologic/Psychiatric: other - sleeping Laboratory Tests Test 06/29/18 08:38 White Blood Count 5.8 K/UL (4.8-10.8) Red Blood Count 4.18 M/UL (4.20-5.40) L Hemoglobin 11.3 G/DL (12.0-16.0) L Hematocrit 36.5 % (37.0-47.0) L Mean Corpuscular Volume 87 FL (80-99) Mean Corpuscular Hemoglobin 27.0 PG (27.0-31.0) Mean Corpuscular Hemoglobin Concent 30.9 G/DL (32.0-36.0) L Red Cell Distribution Width 15.1 % (11.6-14.8) H Platelet Count 129 K/UL (150-450) L Mean Platelet Volume 9.7 FL (6.5-10.1) Neutrophils (%) (Auto) 72.0 % (45.0-75.0) Lymphocytes (%) (Auto) 15.9 % (20.0-45.0) L Monocytes (%) (Auto) 8.5 % (1.0-10.0) Eosinophils (%) (Auto) 2.6 % (0.0-3.0) Basophils (%) (Auto) 1.1 % (0.0-2.0) Prothrombin Time 12.2 SEC (9.30-11.50) H Prothromb Time International Ratio 1.2 (0.9-1.1) H Activated Partial Thromboplast Time 44 SEC (23-33) H Sodium Level 129 MMOL/L (136-145) L Potassium Level 4.9 MMOL/L (3.5-5.1) Chloride Level 97 MMOL/L (98-107) L Carbon Dioxide Level 19 MMOL/L (21-32) L Anion Gap 13 mmol/L (5-15) Blood Urea Nitrogen 63 mg/dL (7-18) H Creatinine 6.4 MG/DL (0.55-1.30) H Estimat Glomerular Filtration Rate 7.9 mL/min (>60) Glucose Level 78 MG/DL (74-106) Calcium Level 8.4 MG/DL (8.5-10.1) L Current Medications Medications (Trade) Dose Ordered Sig/Andre Route PRN Reason Start Time Stop Time Status Last Admin Dose Admin Acetaminophen (Tylenol) 500 mg Q6H PRN ORAL Mild Pain/Temp > 100.5 06/28/18 20:00 07/28/18 19:59 Aspirin (ASA) 81 mg DAILY ORAL 06/29/18 09:00 07/13/18 08:59 Atorvastatin Calcium (Lipitor) 10 mg BEDTIME ORAL 06/28/18 21:00 07/13/18 20:59 Chlorhexidine Gluconate (Fabiola-Hex 2%) 1 applic DAILY@2000 TOPIC 06/28/18 20:00 07/18/18 19:59 06/28/18 20:08 Collagenase (Santyl) 1 applic DAILY TOPIC 06/29/18 09:00 07/13/18 08:59 06/29/18 09:02 Dextrose (Dextrose 50%) 25 ml Q30M PRN IV Hypoglycemia 06/28/18 18:45 07/17/18 20:14 Dextrose (Dextrose 50%) 50 ml Q30M PRN IV Hypoglycemia 06/28/18 18:45 07/17/18 20:14 Dopamine HCl/ Dextrose 250 ml @ 0 mls/hr Q24H IV 06/28/18 18:45 07/28/18 18:44 06/28/18 18:59 Heparin Sodium (Porcine) (Heparin 5000 units/ml) 5,000 units EVERY 12 HOURS SUBQ 06/28/18 21:00 07/13/18 08:59 Heparin Sodium (Porcine) (Heparin Sod 1000 units/ml 10ml) 2,000 unit ONCE ONCE IV 06/30/18 08:30 06/30/18 08:31 Heparin Sodium (Porcine) (Heparin Sod 1000 units/ml 10ml) 2,000 unit ONCE PRN IV dialysis 06/28/18 18:45 06/29/18 18:44 Insulin Aspart (NovoLOG) BEFORE MEALS AND HS SUBQ 06/28/18 21:00 07/17/18 20:59 Meropenem 500 mg/ Sodium Chloride 55 ml @ 110 mls/hr Q24H IVPB 06/29/18 14:00 07/25/18 13:59 Multivitamins Therapeutic (Therapeutic Multivitamin) 1 ea DAILY ORAL 06/29/18 09:00 07/13/18 08:59 Pantoprazole (Protonix) 40 mg ACBREAKFAST ORAL 06/29/18 06:30 07/27/18 06:29 Sodium Chloride 250 ml @ 998.89 mls/ hr ONCE IV 06/29/18 08:30 06/29/18 12:00 Sodium Chloride 1,000 ml @ 500 mls/hr Q2H PRN IVLG sbp<90 during hd 06/30/18 08:17 07/30/18 08:16 Vancomycin HCl (Vanco rx to dose) 1 ea DAILY PRN MISC Per rx protocol 06/29/18 08:15 07/29/18 08:14 Vancomycin HCl/ Dextrose 250 ml @ 125 mls/hr ONCE ONCE IVPB 06/29/18 10:00 06/29/18 11:59 06/29/18 10:12 Joe Melgar MD Jun 29, 2018 10:55
--- NOTE | 2018-06-29 11:12 | NUR ---
RD ASSESSMENT & RECOMMENDATIONS SEE CARE ACTIVITY FOR COMPLETE ASSESSMENT DAILY ESTIMATED NEEDS: Needs based on ESRD on HD, Wounds (Adj Wt 62kg) 25-30 kcals/kg 0616-5049 total kcals 1.25-1.8 g protein/kg 76-112 g total protein Fluid per MD, on HD NUTRITION DIAGNOSIS: 1) Increased kcal, pro needs R/T wound healing and renal dysfunction as evidenced by pt w/ open left heel, sacral, and lt ischial wounds, w/ ESRD on HD. CURRENT DIET: Renal/ regular texture PO DIET RECOMMENDATIONS: RENAL, CCHO MED + Double Protein Portions (texture per MEDICAL SALES REPRESENTATIVE) ENTERAL NUTRITION RECOMMENDATIONS: * NEPRO @40ml/hr x24 hrs + Prosource x1* to provide 960ml, 1728 kcal, 78g + 11g prot, 698ml free H2O - If pt remains unable to tolerate oral diet, rec temp NGT feeds to meet est nutritional needs for wound healing and HD. - Obtain GI access, start NEPRO @20ml/hr for 6 hrs. Advance as tolerated 10ml every 4-6 hrs to goal - Flush per MD. HOB over 30 degrees. ADDITIONAL RECOMMENDATIONS: 1) Wound healing: Add Dimitry 1pkt BID , Nephrovite 1 tab daily 2) Obtain dry wt post HD on a calibrated bed scale 3) Monitor lytes closely- rec to check follow up phos and mag levels 4) Consider fluid restriction if Na level does not improve (Rl=370) 5) See above TF recs for non-oral feeds .
--- NOTE | 2018-06-29 11:25 | NUR ---
HAND-OFF: Report given to CHAPIS Montes.
--- NOTE | 2018-06-29 12:58 | General Progress Note ---
Assessment/Plan Problem List: (1) Encephalopathy acute ICD Codes: G93.40 - Encephalopathy, unspecified SNOMED: 99715013, [id number] Status: deteriorating Assessment/Plan the pt lacks capacity to refuse medications the pt lacks capacity to leave ama haldol prn soft restraints as needed Subjective Date patient seen: Jun 29, 2018 Neurologic/Psychiatric: Reports: anxiety Allergies: Coded Allergies: BENAZEPRIL (Verified Allergy, Unknown, 06/12/18) CODEINE (Verified Allergy, Unknown, 06/12/18) INSULIN ASPART (Verified Allergy, Unknown, 06/12/18) INSULIN DETEMIR (Verified Allergy, Unknown, 06/12/18) OPIOIDS - MORPHINE ANALOGUES (Verified Allergy, Unknown, 06/12/18) Subjective the pt is lethargic back to ICU due to septic shock has episodes of agitation Objective Last 24 Hour Vital Signs Date Time Temp Pulse Resp B/P (MAP) Pulse Ox O2 Delivery O2 Flow Rate FiO2 06/29/18 11:00 80 13 93/15 (41) 98 06/29/18 11:00 136/61 06/29/18 10:30 79 13 89/20 (43) 98 06/29/18 10:00 82 17 103/32 (55) 98 06/29/18 10:00 134/76 06/29/18 09:30 86 18 122/27 (58) 98 06/29/18 09:00 134/65 06/29/18 09:00 84 13 102/23 (49) 98 06/29/18 08:30 85 11 99/22 (47) 98 06/29/18 08:00 85 06/29/18 08:00 134/77 06/29/18 08:00 97.8 82 11 91/23 (45) 97 06/29/18 08:00 Nasal Cannula 2.0 06/29/18 07:30 85 11 99/22 (47) 98 06/29/18 07:00 83 15 117/37 (63) 98 06/29/18 07:00 122/63 06/29/18 06:30 88 19 98/51 (67) 98 06/29/18 06:00 86 15 104/28 (53) 98 06/29/18 05:30 86 14 103/29 (53) 98 06/29/18 05:00 95 13 115/28 (57) 98 06/29/18 04:30 96 13 118/22 (54) 99 06/29/18 04:00 97.1 97 19 128/74 (92) 98 06/29/18 04:00 Nasal Cannula 2.0 06/29/18 04:00 88 06/29/18 03:30 94 15 111/43 (65) 99 06/29/18 03:00 85 15 72/28 (43) 99 06/29/18 02:30 84 16 111/12 (45) 99 06/29/18 02:00 86 13 110/28 (55) 99 06/29/18 01:30 86 13 113/26 (55) 98 06/29/18 01:00 87 16 104/37 (59) 98 06/29/18 00:30 88 16 110/21 (50) 98 06/29/18 00:00 88 06/29/18 00:00 Nasal Cannula 2.0 06/29/18 00:00 103/53 06/29/18 00:00 96.7 87 19 103/53 (70) 98 06/28/18 23:30 83 12 85/23 (43) 97 06/28/18 23:00 82 13 100/20 (46) 96 06/28/18 22:30 90 16 125/51 (75) 97 06/28/18 22:00 85 16 119/29 (59) 97 06/28/18 21:30 95 14 131/73 (92) 97 06/28/18 21:00 93 20 103/42 (62) 96 06/28/18 20:45 89 20 89/60 (70) 96 06/28/18 20:30 93 21 76/51 (59) 96 06/28/18 20:15 97 21 69/27 (41) 95 06/28/18 20:00 Nasal Cannula 2.0 28 06/28/18 20:00 92 06/28/18 20:00 Nasal Cannula 2.0 06/28/18 20:00 96 21 126/108 (114) 96 06/28/18 20:00 97 Nasal Cannula 2.0 28 06/28/18 19:45 97 18 111/16 (47) 96 06/28/18 19:30 96.1 95 14 94/18 (43) 96 18 18:59 78/18 125/18 16:00 Nasal Cannula 2.0 06/28/18 16:00 95.9 59 19 121/81 (94) 93 06/28/18 16:00 60 Intake and Output 06/28/18 06/29/18 19:00 07:00 Intake Total 535 ml 259.094 ml Output Total 0 ml 0 ml Balance 535 ml 259.094 ml Intake Oral 480 ml IV Total 55 ml 259.094 ml Output Urine Total 0 ml 0 ml # Voids 1 # Bowel Movements 6 Laboratory Tests 06/29/18 08:38: White Blood Count 5.8, Red Blood Count 4.18L, Hemoglobin 11.3L, Hematocrit 36.5L , Mean Corpuscular Volume 87, Mean Corpuscular Hemoglobin 27.0, Mean Corpuscular Hemoglobin Concent 30.9L, Red Cell Distribution Width 15.1H, Platelet Count 129L, Mean Platelet Volume 9.7, Neutrophils (%) (Auto) 72.0, Lymphocytes (%) (Auto) 15.9L, Monocytes (%) (Auto) 8.5, Eosinophils (%) (Auto) 2.6, Basophils (%) (Auto) 1.1, Prothrombin Time 12.2H, Prothromb Time International Ratio 1.2H, Activated Partial Thromboplast Time 44H, Sodium Level 129L, Potassium Level 4.9, Chloride Level 97L, Carbon Dioxide Level 19L, Anion Gap 13, Blood Urea Nitrogen 63H, Creatinine 6.4H, Estimat Glomerular Filtration Rate 7.9, Glucose Level 78, Calcium Level 8.4L Height (Feet): 5 Height (Inches): 6.00 Weight (Pounds): 240 General Appearance: lethargic, confused, agitated MIPS Unhealthy Alcohol Use 431 (psycho/diag only) Patient was screened for unhealthy alcohol use today or within the past 2 years. Patient was NOT identified as an unhealthy alcohol user. Tobacco Use 226 (psycho/diag only) Patient was screened for tobacco use today or within the past 2 years. Patient was NOT identified as a tobacco user. BMI 128 (psycho/diag only) BMI was documented today or within the past year. BMI was outside normal parameters, and the patient received counseling. Depression Does this Patient have Dementi: Yes Safety Screening-Dementia 286 (psycho/diag only) BMI was documented today or within the past year. BMI was within normal parameters. Caregiver Health-Dementia 288 (psycho/diag only) Caregiver education and counseling was performed at another time in the past 12 months. (the son). Abelardo Yadav MD Jun 29, 2018 12:58
--- NOTE | 2018-06-29 13:47 | Infectious Diseases Prog Note ---
"Assessment/Plan Assessment/Plan patient left foot infection | osteomyelitis not responding to antibiotics, infection is worsening on pressors patient needs emergent surgery Subjective Allergies: Coded Allergies: BENAZEPRIL (Verified Allergy, Unknown, 06/12/18) CODEINE (Verified Allergy, Unknown, 06/12/18) INSULIN ASPART (Verified Allergy, Unknown, 06/12/18) INSULIN DETEMIR (Verified Allergy, Unknown, 06/12/18) OPIOIDS - MORPHINE ANALOGUES (Verified Allergy, Unknown, 06/12/18) Objective Vital Signs Last 24 Hour Vital Signs Date Time Temp Pulse Resp B/P (MAP) Pulse Ox O2 Delivery O2 Flow Rate FiO2 06/29/18 11:00 80 13 93/15 (41) 98 06/29/18 11:00 136/61 06/29/18 10:30 79 13 89/20 (43) 98 06/29/18 10:00 82 17 103/32 (55) 98 06/29/18 10:00 134/76 06/29/18 09:30 86 18 122/27 (58) 98 06/29/18 09:00 134/65 06/29/18 09:00 84 13 102/23 (49) 98 06/29/18 08:30 85 11 99/22 (47) 98 06/29/18 08:00 85 06/29/18 08:00 134/77 06/29/18 08:00 97.8 82 11 91/23 (45) 97 06/29/18 08:00 Nasal Cannula 2.0 06/29/18 07:30 85 11 99/22 (47) 98 06/29/18 07:00 83 15 117/37 (63) 98 06/29/18 07:00 122/63 06/29/18 06:30 88 19 98/51 (67) 98 06/29/18 06:00 86 15 104/28 (53) 98 06/29/18 05:30 86 14 103/29 (53) 98 06/29/18 05:00 95 13 115/28 (57) 98 06/29/18 04:30 96 13 118/22 (54) 99 06/29/18 04:00 97.1 97 19 128/74 (92) 98 06/29/18 04:00 Nasal Cannula 2.0 06/29/18 04:00 88 12/6/18 03:30 94 15 111/43 (65) 99 06/29/18 03:00 85 15 72/28 (43) 99 06/29/18 02:30 84 16 111/12 (45) 99 06/29/18 02:00 86 13 110/28 (55) 99 06/29/18 01:30 86 13 113/26 (55) 98 06/29/18 01:00 87 16 104/37 (59) 98 06/29/18 00:30 88 16 110/21 (50) 98 06/29/18 00:00 88 06/29/18 00:00 Nasal Cannula 2.0 06/29/18 00:00 103/53 06/29/18 00:00 96.7 87 19 103/53 (70) 98 06/28/18 23:30 83 12 85/23 (43) 97 06/28/18 23:00 82 13 100/20 (46) 96 06/28/18 22:30 90 16 125/51 (75) 97 06/28/18 22:00 85 16 119/29 (59) 97 06/28/18 21:30 95 14 131/73 (92) 97 06/28/18 21:00 93 20 103/42 (62) 96 06/28/18 20:45 89 20 89/60 (70) 96 06/28/18 20:30 93 21 76/51 (59) 96 06/28/18 20:15 97 21 69/27 (41) 95 06/28/18 20:00 Nasal Cannula 2.0 28 06/28/18 20:00 92 06/28/18 20:00 Nasal Cannula 2.0 06/28/18 20:00 96 21 126/108 (114) 96 06/28/18 20:00 97 Nasal Cannula 2.0 28 06/28/18 19:45 97 18 111/16 (47) 96 06/28/18 19:30 96.1 95 14 94/18 (43) 96 18 18:59 78/18 06/28/18 16:00 Nasal Cannula 2.0 06/28/18 16:00 95.9 59 19 121/81 (94) 93 06/28/18 16:00 60 Height (Feet): 5 Height (Inches): 6.00 Weight (Pounds): 240 Laboratory Tests Test 06/29/18 08:38 White Blood Count 5.8 K/UL (4.8-10.8) Red Blood Count 4.18 M/UL (4.20-5.40) L Hemoglobin 11.3 G/DL (12.0-16.0) L Hematocrit 36.5 % (37.0-47.0) L Mean Corpuscular Volume 87 FL (80-99) Mean Corpuscular Hemoglobin 27.0 PG (27.0-31.0) Mean Corpuscular Hemoglobin Concent 30.9 G/DL (32.0-36.0) L Red Cell Distribution Width 15.1 % (11.6-14.8) H Platelet Count 129 K/UL (150-450) L Mean Platelet Volume 9.7 FL (6.5-10.1) Neutrophils (%) (Auto) 72.0 % (45.0-75.0) Lymphocytes (%) (Auto) 15.9 % (20.0-45.0) L Monocytes (%) (Auto) 8.5 % (1.0-10.0) Eosinophils (%) (Auto) 2.6 % (0.0-3.0) Basophils (%) (Auto) 1.1 % (0.0-2.0) Prothrombin Time 12.2 SEC (9.30-11.50) H Prothromb Time International Ratio 1.2 (0.9-1.1) H Activated Partial Thromboplast Time 44 SEC (23-33) H Sodium Level 129 MMOL/L (136-145) L Potassium Level 4.9 MMOL/L (3.5-5.1) Chloride Level 97 MMOL/L (98-107) L Carbon Dioxide Level 19 MMOL/L (21-32) L Anion Gap 13 mmol/L (5-15) Blood Urea Nitrogen 63 mg/dL (7-18) H Creatinine 6.4 MG/DL (0.55-1.30) H Estimat Glomerular Filtration Rate 7.9 mL/min (>60) Glucose Level 78 MG/DL (74-106) Calcium Level 8.4 MG/DL (8.5-10.1) L Current Medications Medications (Trade) Dose Ordered Sig/Andre Route PRN Reason Start Time Stop Time Status Last Admin Dose Admin Acetaminophen (Tylenol) 500 mg Q6H PRN ORAL Mild Pain/Temp > 100.5 06/28/18 20:00 07/28/18 19:59 Aspirin (ASA) 81 mg DAILY ORAL 06/29/18 09:00 07/13/18 08:59 Atorvastatin Calcium (Lipitor) 10 mg BEDTIME ORAL 06/28/18 21:00 07/13/18 20:59 Chlorhexidine Gluconate (Fabiola-Hex 2%) 1 applic DAILY@2000 TOPIC 06/28/18 20:00 07/18/18 19:59 06/28/18 20:08 Collagenase (Santyl) 1 applic DAILY TOPIC 06/29/18 09:00 07/13/18 08:59 06/29/18 09:02 Dextrose (Dextrose 50%) 25 ml Q30M PRN IV Hypoglycemia 06/28/18 18:45 07/17/18 20:14 Dextrose (Dextrose 50%) 50 ml Q30M PRN IV Hypoglycemia 06/28/18 18:45 07/17/18 20:14 Dopamine HCl/ Dextrose 250 ml @ 0 mls/hr Q24H IV 06/28/18 18:45 07/28/18 18:44 06/29/18 07:00 Heparin Sodium (Porcine) (Heparin 5000 units/ml) 5,000 units EVERY 12 HOURS SUBQ 06/28/18 21:00 07/13/18 08:59 Heparin Sodium (Porcine) (Heparin Sod 1000 units/ml 10ml) 2,000 unit ONCE ONCE IV 06/30/18 08:30 06/30/18 08:31 Heparin Sodium (Porcine) (Heparin Sod 1000 units/ml 10ml) 2,000 unit ONCE PRN IV dialysis 06/28/18 18:45 06/29/18 18:44 Insulin Aspart (NovoLOG) BEFORE MEALS AND HS SUBQ 06/28/18 21:00 07/17/18 20:59 Meropenem 500 mg/ Sodium Chloride 55 ml @ 110 mls/hr Q24H IVPB 06/29/18 14:00 07/25/18 13:59 Multivitamins Therapeutic (Therapeutic Multivitamin) 1 ea DAILY ORAL 06/29/18 09:00 07/13/18 08:59 Pantoprazole (Protonix) 40 mg ACBREAKFAST ORAL 06/29/18 06:30 07/27/18 06:29 Sodium Chloride 1,000 ml @ 500 mls/hr Q2H PRN IVLG sbp<90 during hd 06/30/18 08:17 07/30/18 08:16 Vancomycin HCl (Vanco rx to dose) 1 ea DAILY PRN MISC Per rx protocol 06/29/18 08:15 07/29/18 08:14 Naya Cain MD Jun 29, 2018 13:47"
[2018-06-29] MEDS: Meropenem 500 MG in NS 55 ML IVPB SCH (14:00)
--- NOTE | 2018-06-29 14:01 | Cardiology Progress Note ---
Assessment/Plan Assessment/Plan The patient is in critical condition, on dopamine drip, hypotensive. According to ID and Dr Fuller, she is septic because of left leg infection and needs to go for urgent amputation.I discussed it with Dr Fuller in details Subjective Subjective The patient is on IV dopamine, she is very lethargic Objective Last 24 Hour Vital Signs Date Time Temp Pulse Resp B/P (MAP) Pulse Ox O2 Delivery O2 Flow Rate FiO2 06/29/18 11:00 80 13 93/15 (41) 98 06/29/18 11:00 136/61 06/29/18 10:30 79 13 89/20 (43) 98 06/29/18 10:00 82 17 103/32 (55) 98 06/29/18 10:00 134/76 06/29/18 09:30 86 18 122/27 (58) 98 06/29/18 09:00 134/65 06/29/18 09:00 84 13 102/23 (49) 98 06/29/18 08:30 85 11 99/22 (47) 98 06/29/18 08:00 85 06/29/18 08:00 134/77 06/29/18 08:00 97.8 82 11 91/23 (45) 97 06/29/18 08:00 Nasal Cannula 2.0 06/29/18 07:30 85 11 99/22 (47) 98 06/29/18 07:00 83 15 117/37 (63) 98 06/29/18 07:00 122/63 06/29/18 06:30 88 19 98/51 (67) 98 06/29/18 06:00 86 15 104/28 (53) 98 06/29/18 05:30 86 14 103/29 (53) 98 06/29/18 05:00 95 13 115/28 (57) 98 06/29/18 04:30 96 13 118/22 (54) 99 06/29/18 04:00 97.1 97 19 128/74 (92) 98 06/29/18 04:00 Nasal Cannula 2.0 06/29/18 04:00 88 06/29/18 03:30 94 15 111/43 (65) 99 06/29/18 03:00 85 15 72/28 (43) 99 06/29/18 02:30 84 16 111/12 (45) 99 12/6/18 02:00 86 13 110/28 (55) 99 06/29/18 01:30 86 13 113/26 (55) 98 06/29/18 01:00 87 16 104/37 (59) 98 06/29/18 00:30 88 16 110/21 (50) 98 06/29/18 00:00 88 06/29/18 00:00 Nasal Cannula 2.0 06/29/18 00:00 103/53 06/29/18 00:00 96.7 87 19 103/53 (70) 98 06/28/18 23:30 83 12 85/23 (43) 97 06/28/18 23:00 82 13 100/20 (46) 96 06/28/18 22:30 90 16 125/51 (75) 97 06/28/18 22:00 85 16 119/29 (59) 97 06/28/18 21:30 95 14 131/73 (92) 97 06/28/18 21:00 93 20 103/42 (62) 96 06/28/18 20:45 89 20 89/60 (70) 96 06/28/18 20:30 93 21 76/51 (59) 96 06/28/18 20:15 97 21 69/27 (41) 95 06/28/18 20:00 Nasal Cannula 2.0 28 06/28/18 20:00 92 06/28/18 20:00 Nasal Cannula 2.0 06/28/18 20:00 96 21 126/108 (114) 96 06/28/18 20:00 97 Nasal Cannula 2.0 28 06/28/18 19:45 97 18 111/16 (47) 96 06/28/18 19:30 96.1 95 14 94/18 (43) 96 06/28/18 18:59 78/18 06/28/18 16:00 Nasal Cannula 2.0 06/28/18 16:00 95.9 59 19 121/81 (94) 93 06/28/18 16:00 60 General Appearance: lethargic EENT: other - abnormal Neck: JVD Rhythm: NSR Cardiovascular: systolic murmur Respiratory/Chest: crackles/rales Abdomen: distended Extremities: other - right BKA, left dressing Intake and Output 06/28/18 06/29/18 19:00 07:00 Intake Total 535 ml 259.094 ml Output Total 0 ml 0 ml Balance 535 ml 259.094 ml Intake Oral 480 ml IV Total 55 ml 259.094 ml Output Urine Total 0 ml 0 ml # Voids 1 # Bowel Movements 6 Laboratory Tests Test 06/29/18 08:38 White Blood Count 5.8 K/UL (4.8-10.8) Red Blood Count 4.18 M/UL (4.20-5.40) L Hemoglobin 11.3 G/DL (12.0-16.0) L Hematocrit 36.5 % (37.0-47.0) L Mean Corpuscular Volume 87 FL (80-99) Mean Corpuscular Hemoglobin 27.0 PG (27.0-31.0) Mean Corpuscular Hemoglobin Concent 30.9 G/DL (32.0-36.0) L Red Cell Distribution Width 15.1 % (11.6-14.8) H Platelet Count 129 K/UL (150-450) L Mean Platelet Volume 9.7 FL (6.5-10.1) Neutrophils (%) (Auto) 72.0 % (45.0-75.0) Lymphocytes (%) (Auto) 15.9 % (20.0-45.0) L Monocytes (%) (Auto) 8.5 % (1.0-10.0) Eosinophils (%) (Auto) 2.6 % (0.0-3.0) Basophils (%) (Auto) 1.1 % (0.0-2.0) Prothrombin Time 12.2 SEC (9.30-11.50) H Prothromb Time International Ratio 1.2 (0.9-1.1) H Activated Partial Thromboplast Time 44 SEC (23-33) H Sodium Level 129 MMOL/L (136-145) L Potassium Level 4.9 MMOL/L (3.5-5.1) Chloride Level 97 MMOL/L (98-107) L Carbon Dioxide Level 19 MMOL/L (21-32) L Anion Gap 13 mmol/L (5-15) Blood Urea Nitrogen 63 mg/dL (7-18) H Creatinine 6.4 MG/DL (0.55-1.30) H Estimat Glomerular Filtration Rate 7.9 mL/min (>60) Glucose Level 78 MG/DL (74-106) Calcium Level 8.4 MG/DL (8.5-10.1) Clarisse Carroll MD Jun 29, 2018 14:01
--- NOTE | 2018-06-29 14:59 | Podiatric Progress Note ---
Assessment/Plan Patient Evita Jorge is a 72 year old female who was admitted on Jun 13, 2018 at 01: 43 with Problems: (1) Hypotension (2) Diabetic foot ulcer with osteomyelitis (3) Bilateral pleural effusion (4) Peripheral vascular disease (5) NSTEMI (non-ST elevated myocardial infarction) (6) ESRD (end stage renal disease) on dialysis (7) DM2 (diabetes mellitus, type 2) Assessment/Plan L heel ulcer clinically looks stable without active infection. Due to patient critical condition and septic status the patient may benefit from Bk since ID and PCP believe her ulcer could be the source of her condition,. patient is bedbound and non mobile. Patient will be followed PRN. Subjective Reason for consult L heel ulceration with chronic Osteomyelitis Allergies: Coded Allergies: BENAZEPRIL (Verified Allergy, Unknown, 06/12/18) CODEINE (Verified Allergy, Unknown, 06/12/18) INSULIN ASPART (Verified Allergy, Unknown, 06/12/18) INSULIN DETEMIR (Verified Allergy, Unknown, 06/12/18) OPIOIDS - MORPHINE ANALOGUES (Verified Allergy, Unknown, 06/12/18) Subjective Patient is seen by bedside resting. Patient is afebrile with normal WBC. Patient septic and in critical condition possibly due to her Heel wound according to ID. Patient is being refereed for BK amputation to control her hypotension and sepsis. Objective Exam Last 24 Hour Vital Signs Date Time Temp Pulse Resp B/P (MAP) Pulse Ox O2 Delivery O2 Flow Rate FiO2 06/29/18 11:00 80 13 93/15 (41) 98 06/29/18 11:00 136/61 06/29/18 10:30 79 13 89/20 (43) 98 06/29/18 10:00 82 17 103/32 (55) 98 06/29/18 10:00 134/76 06/29/18 09:30 86 18 122/27 (58) 98 06/29/18 09:00 134/65 06/29/18 09:00 84 13 102/23 (49) 98 06/29/18 08:30 85 11 99/22 (47) 98 06/29/18 08:00 85 06/29/18 08:00 134/77 06/29/18 08:00 97.8 82 11 91/23 (45) 97 06/29/18 08:00 Nasal Cannula 2.0 06/29/18 07:30 85 11 99/22 (47) 98 06/29/18 07:00 83 15 117/37 (63) 98 06/29/18 07:00 122/63 06/29/18 06:30 88 19 98/51 (67) 98 06/29/18 06:00 86 15 104/28 (53) 98 06/29/18 05:30 86 14 103/29 (53) 98 06/29/18 05:00 95 13 115/28 (57) 98 06/29/18 04:30 96 13 118/22 (54) 99 06/29/18 04:00 97.1 97 19 128/74 (92) 98 06/29/18 04:00 Nasal Cannula 2.0 06/29/18 04:00 88 06/29/18 03:30 94 15 111/43 (65) 99 06/29/18 03:00 85 15 72/28 (43) 99 06/29/18 02:30 84 16 111/12 (45) 99 06/29/18 02:00 86 13 110/28 (55) 99 06/29/18 01:30 86 13 113/26 (55) 98 06/29/18 01:00 87 16 104/37 (59) 98 06/29/18 00:30 88 16 110/21 (50) 98 06/29/18 00:00 88 06/29/18 00:00 Nasal Cannula 2.0 06/29/18 00:00 103/53 06/29/18 00:00 96.7 87 19 103/53 (70) 98 06/28/18 23:30 83 12 85/23 (43) 97 06/28/18 23:00 82 13 100/20 (46) 96 06/28/18 22:30 90 16 125/51 (75) 97 18 22:00 85 16 119/29 (59) 97 06/28/18 21:30 95 14 131/73 (92) 97 06/28/18 21:00 93 20 103/42 (62) 96 06/28/18 20:45 89 20 89/60 (70) 96 06/28/18 20:30 93 21 76/51 (59) 96 06/28/18 20:15 97 21 69/27 (41) 95 06/28/18 20:00 Nasal Cannula 2.0 28 06/28/18 20:00 92 06/28/18 20:00 Nasal Cannula 2.0 06/28/18 20:00 96 21 126/108 (114) 96 06/28/18 20:00 97 Nasal Cannula 2.0 28 06/28/18 19:45 97 18 111/16 (47) 96 06/28/18 19:30 96.1 95 14 94/18 (43) 96 06/28/18 18:59 78/18 06/28/18 16:00 Nasal Cannula 2.0 06/28/18 16:00 95.9 59 19 121/81 (94) 93 06/28/18 16:00 60 Laboratory Tests Test 06/29/18 08:38 White Blood Count 5.8 K/UL (4.8-10.8) Red Blood Count 4.18 M/UL (4.20-5.40) L Hemoglobin 11.3 G/DL (12.0-16.0) L Hematocrit 36.5 % (37.0-47.0) L Mean Corpuscular Volume 87 FL (80-99) Mean Corpuscular Hemoglobin 27.0 PG (27.0-31.0) Mean Corpuscular Hemoglobin Concent 30.9 G/DL (32.0-36.0) L Red Cell Distribution Width 15.1 % (11.6-14.8) H Platelet Count 129 K/UL (150-450) L Mean Platelet Volume 9.7 FL (6.5-10.1) Neutrophils (%) (Auto) 72.0 % (45.0-75.0) Lymphocytes (%) (Auto) 15.9 % (20.0-45.0) L Monocytes (%) (Auto) 8.5 % (1.0-10.0) Eosinophils (%) (Auto) 2.6 % (0.0-3.0) Basophils (%) (Auto) 1.1 % (0.0-2.0) Prothrombin Time 12.2 SEC (9.30-11.50) H Prothromb Time International Ratio 1.2 (0.9-1.1) H Activated Partial Thromboplast Time 44 SEC (23-33) H Sodium Level 129 MMOL/L (136-145) L Potassium Level 4.9 MMOL/L (3.5-5.1) Chloride Level 97 MMOL/L (98-107) L Carbon Dioxide Level 19 MMOL/L (21-32) L Anion Gap 13 mmol/L (5-15) Blood Urea Nitrogen 63 mg/dL (7-18) H Creatinine 6.4 MG/DL (0.55-1.30) H Estimat Glomerular Filtration Rate 7.9 mL/min (>60) Glucose Level 78 MG/DL (74-106) Calcium Level 8.4 MG/DL (8.5-10.1) L Microbiology Date/Time Source Procedure Growth Status 06/13/18 00:30 Blood Blood Culture - Final NO GROWTH AFTER 5 DAYS Complete 06/14/18 10:50 Other Gram Stain - Final Complete 06/14/18 10:50 Wound Culture - Final Pseudomonas Aeruginosa Morganella Morg Spp Morganii Streptococcus Group B Complete 06/13/18 03:00 Nasal Nares MRSA Culture - Final NO METHICILLIN RESISTANT STAPH AUREUS... Complete 06/14/18 10:50 Stool Clostridium difficile Toxin Assay - Final Complete 06/13/18 03:00 Rectum VRE Culture - Final Enterococcus Faecium - Vre Complete Dermatological Dermatological Narrative Bk R leg noted stable. L heel ulcer noted plantar posterior aspect. No drainge or discharge noted . No pus or malodor noted. Periwound erythema with pitting edema is seen. no probing or undermining at the wound site. No sign of active infection is noted. wound base is beefy red. Joaquin Coats DPM Jun 29, 2018 14:59
--- NOTE | 2018-06-29 16:27 | NUR ---
CASE MANAGEMENT: REVIEW SI: ESRD ON HD . BILATERAL PLEURAL EFFUSION T 97.8 HR 82 BP 89/20 SAT 98% NC/2L H/H 11.3/36.5 NA 129 BUN 63 CR 6.4 IS: DOPAMINE IV Q24HR MEROPENEM IV Q24HR HEPARIN IV PRN NOVOLOG SQ AC/HS STEP DOWN UNIT STATUS DCP: PATIENT IS FROM [facility]
--- NOTE | 2018-06-29 19:15 | NUR ---
NURSE NOTES: Received pt from [facility]. Will take pt to CT at this time.
--- NOTE | 2018-06-29 19:30 | Progress Note ---
DATE: 06/28/2018 IDENTIFYING INFORMATION: This is a 72-year-old female. I evaluated this patient at 6 p.m., daytime on 06/28/2018. The patient was lethargic. She was on telemetry. Dialysis was just started. Her blood pressure was 70/40, heart rate was 80 and regular. PHYSICAL EXAMINATION: GENERAL: She was lethargic, not answering the questions. VITAL SIGNS: Blood pressure was 70/40, heart rate was 80 and regular, oxygen saturation on room air was 95%, and was afebrile. She appeared to be chronically ill and lethargic, but there was no lateralizing neurologic deficit. LUNGS: She had decreased breath sound and crackles bilaterally. HEART: Regular with holosystolic murmur 3/6 on apex and S4. ABDOMEN: Soft and distended. EXTREMITIES: Her right leg was amputated and left leg covered with a dressing. LABORATORY DATA: Reviewed. Her telemetry showed sinus rhythm without new ST changes. IMPRESSION AND RECOMMENDATION: The patient is hypotensive again. 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 She is not tolerating dialysis well. I am going to transfer her to intensive care unit. I am going to start her on dopamine drip again for maintenance. We are going to check her troponin. We are going to repeat her laboratories in the morning and we are going to keep her systolic blood pressure mean at 60. Unfortunately, this patient has a combination picture of possible sepsis plus severe mitral regurgitation and she does not tolerate dialysis well. She has mitral regurgitation due to mitral valve damage post endocarditis. However, she is not a candidate for mitral valve repair or replacement because of her general poor condition, bedridden status, psychiatric diagnosis, and also presence of chronic osteomyelitis of the left leg. I am not sure if she is acutely septic, I am just suspecting that because of her cardiac condition and other comorbidities. She becomes hypotensive very easily and we are going to maintain her on dopamine drip to monitor her blood pressure again. I doubt very much that she is going to be taken by an inside sales engineer or surgeon for procedure on mitral valve considering all comorbidities. So, I will pursue conservative approach. That was discussed with Dr. Fuller in detail. This is intensive care unit level of care on 06/28/2018. Clarisse Daley M.D. DR: RAVI JOB#: [id number] CC:
--- NOTE | 2018-06-29 19:30 | NUR ---
NURSE NOTES: Pt brought back from CT at this time. No distress noted. Continues on dopamine at this time. No signs of distress noted. Will continue to monitor.
--- NOTE | 2018-06-29 19:34 | Consultation ---
History of Present Illness General Date patient seen: Jun 29, 2018 Chief Complaint: General Complaint Present Illness HPI Asked to see patient urgently for Emergency amputation of left lower extremity. patient in ICU on pressors. was unable to tolerate HD yesterday. was asked to evaluate extremity as source of infection. patient seen, chart reviewed, patient examined. Allergies: Coded Allergies: BENAZEPRIL (Verified Allergy, Unknown, 06/12/18) CODEINE (Verified Allergy, Unknown, 06/12/18) INSULIN ASPART (Verified Allergy, Unknown, 06/12/18) INSULIN DETEMIR (Verified Allergy, Unknown, 06/12/18) OPIOIDS - MORPHINE ANALOGUES (Verified Allergy, Unknown, 06/12/18) Medication History Scheduled Amlodipine Besylate (Norvasc), 5 MG ORAL BID Ascorbic Acid* (Vitamin C*), 500 MG ORAL DAILY, (Reported) Aspirin* (Aspirin*), 81 MG ORAL DAILY, (Reported) Atenolol* (Tenormin*), 25 MG ORAL DAILY, (Reported) Carvedilol (Coreg), 6.25 MG ORAL EVERY 12 HOURS Collagenase Clostridium Hist. (Collagenase), 1 EACH MC DAILY, (Reported) Docusate Sodium* (Colace*), 100 MG ORAL THREE TIMES A DAY Epoetin Marcus (Procrit), 10,000 UNITS SUBQ TUE-TUE-TUE Gabapentin* (Gabapentin*), 100 MG ORAL DAILY, (Reported) Heparin Sod (Porcine) (Heparin Sodium*), 5,000 UNITS SUBQ EVERY 12 HOURS Heparin Sodium,Porcine/Pf (Heparin 1,000 Unit/10 (100/ml)), 5,000 UNIT SUBQ BID, (Reported) Insulin Aspart (Novolog Flexpen), 0 UNITS SUBQ AC+HS Lisinopril* (Lisinopril*), 20 MG ORAL DAILY, (Reported) Multivitamin With Minerals (Multivitamins With Minerals*), 1 TAB ORAL DAILY, ( Reported) Nateglinide* (Starlix*), 60 MG ORAL TIAC Oxycodone Hcl Er* (Oxycontin*), 20 MG ORAL EVERY 12 HOURS Pantoprazole* (Protonix*), 40 MG ORAL DAILY Pantoprazole* (Pantoprazole*), 40 MG ORAL DAILY, (Reported) Polyethylene Glycol 3350* (Miralax*), 17 GM ORAL DAILY Sennosides (Senna-Gen), 17.2 MG ORAL QHS Scheduled PRN Acetaminophen* (Tylenol Extra Strength*), 500 MG ORAL Q6H PRN for Mild Pain/ Temp > 100.5, (Reported) Hydralazine Hcl* (Hydralazine Hcl*), 25 MG ORAL Q4H PRN Hydrocodone Bit/Acetaminophen 5-325* (Chandler 5-325*), 1 TAB ORAL Q4H PRN Patient History Limited by: medical condition History Provided By: Medical Record, PMD Healthcare decision maker Resuscitation status Full Code Advanced Directive on File No Past Medical/Surgical History Past Medical/Surgical History: (1) Bilateral pleural effusion (2) Anemia of chronic disease (3) Peripheral vascular disease (4) CKD (chronic kidney disease) stage 4, GFR 15-29 ml/min (5) NSTEMI (non-ST elevated myocardial infarction) (6) ESRD (end stage renal disease) on dialysis (7) DM2 (diabetes mellitus, type 2) (8) Hardware failure (9) Status post ORIF of fracture of ankle (10) Endocarditis of mitral valve (11) UTI due to extended-spectrum beta lactamase (ESBL) producing Escherichia coli (12) live at SNF (13) ankle fracture s/p ORIF on 05/13/17 and subsequenthardware failure and displaced oblique fractures of distal fibula and tibia (14) R ankle fracture s/p ORIF on 05/13/17 and subsequenthardware failure and displaced oblique fractures of distal fibula and tibia (15) Necrotic wound of R ankle/foot (16) Corynebacterium striatum group bacteremia (17) necrotic wound R ankle (18) acute on chronic anemia (19) Left heel unstageable pressure ulcer with black eschar adhered to wound bed (20) Encephalopathy acute (21) Hypotension (22) Diabetic foot ulcer with osteomyelitis (23) Hypoalbuminemia (24) Alkaline phosphatase elevation (25) Lives w/ caregiver (26) HTN (hypertension) (27) HLD (hyperlipidemia) (28) Uncontrolled diabetes mellitus (29) Status post fall (30) Hyperkalemia (31) Hyponatremia (32) Pre-syncope (33) ZENY (acute kidney injury) (34) Diabetes mellitus out of control (35) Acute blood loss anemia (36) RIGHT ANKLE FRACTURE (37) Subungual hematoma left hallux (38) Dry blisters L hallux and L 2nd toe (39) Dry blisters L hallux and L 2nd toe Review of Systems ROS Narrative cannot obtain Physical Exam Physical Exam Narrative focused physical exam. left heel ulcer noted with good granulation tissue and some fibrinous edges. no pus. no active infection. no cellulitis. no foul odor. seems like prior debridement performed and may have had prior negative pressure therapy from the look of it. Last 24 Hour Vital Signs Date Time Temp Pulse Resp B/P (MAP) Pulse Ox O2 Delivery O2 Flow Rate FiO2 06/29/18 18:30 85 13 104/20 (48) 98 06/29/18 18:00 85 13 110/20 (50) 98 06/29/18 17:30 88 13 116/20 (52) 98 06/29/18 17:00 80 13 105/15 (45) 98 06/29/18 16:30 75 13 100/15 (43) 98 06/29/18 16:00 83 06/29/18 16:00 Nasal Cannula 2.0 06/29/18 16:00 97.9 82 11 95/23 (47) 97 06/29/18 15:30 80 13 93/15 (41) 98 06/29/18 15:00 79 13 92/15 (40) 98 06/29/18 14:30 80 13 99/15 (43) 98 06/29/18 14:00 82 13 106/17 (46) 98 06/29/18 13:30 80 13 109/15 (46) 98 06/29/18 13:00 85 13 110/15 (46) 98 06/29/18 12:30 80 13 115/20 (51) 98 06/29/18 12:00 Nasal Cannula 2.0 06/29/18 12:00 82 06/29/18 12:00 97.8 82 11 110/23 (52) 97 06/29/18 11:30 79 13 100/15 (43) 98 06/29/18 11:00 80 13 93/15 (41) 98 06/29/18 11:00 136/61 06/29/18 10:30 79 13 89/20 (43) 98 06/29/18 10:00 82 17 103/32 (55) 98 06/29/18 10:00 134/76 12/6/18 09:30 86 18 122/27 (58) 98 06/29/18 09:00 134/65 06/29/18 09:00 84 13 102/23 (49) 98 06/29/18 08:30 85 11 99/22 (47) 98 06/29/18 08:00 85 06/29/18 08:00 134/77 06/29/18 08:00 97.8 82 11 91/23 (45) 97 06/29/18 08:00 Nasal Cannula 2.0 06/29/18 07:30 85 11 99/22 (47) 98 06/29/18 07:00 83 15 117/37 (63) 98 06/29/18 07:00 122/63 06/29/18 06:30 88 19 98/51 (67) 98 06/29/18 06:00 86 15 104/28 (53) 98 06/29/18 05:30 86 14 103/29 (53) 98 06/29/18 05:00 95 13 115/28 (57) 98 06/29/18 04:30 96 13 118/22 (54) 99 06/29/18 04:00 97.1 97 19 128/74 (92) 98 06/29/18 04:00 Nasal Cannula 2.0 06/29/18 04:00 88 06/29/18 03:30 94 15 111/43 (65) 99 06/29/18 03:00 85 15 72/28 (43) 99 06/29/18 02:30 84 16 111/12 (45) 99 06/29/18 02:00 86 13 110/28 (55) 99 06/29/18 01:30 86 13 113/26 (55) 98 06/29/18 01:00 87 16 104/37 (59) 98 06/29/18 00:30 88 16 110/21 (50) 98 06/29/18 00:00 88 06/29/18 00:00 Nasal Cannula 2.0 06/29/18 00:00 103/53 06/29/18 00:00 96.7 87 19 103/53 (70) 98 06/28/18 23:30 83 12 85/23 (43) 97 06/28/18 23:00 82 13 100/20 (46) 96 06/28/18 22:30 90 16 125/51 (75) 97 06/28/18 22:00 85 16 119/29 (59) 97 06/28/18 21:30 95 14 131/73 (92) 97 06/28/18 21:00 93 20 103/42 (62) 96 06/28/18 20:45 89 20 89/60 (70) 96 06/28/18 20:30 93 21 76/51 (59) 96 06/28/18 20:15 97 21 69/27 (41) 95 06/28/18 20:00 Nasal Cannula 2.0 28 06/28/18 20:00 92 06/28/18 20:00 Nasal Cannula 2.0 06/28/18 20:00 96 21 126/108 (114) 96 06/28/18 20:00 97 Nasal Cannula 2.0 28 06/28/18 19:45 97 18 111/16 (47) 96 06/28/18 19:30 96.1 95 14 94/18 (43) 96 Intake and Output 06/28/18 06/29/18 19:00 07:00 Intake Total 535 ml 259.094 ml Output Total 0 ml 0 ml Balance 535 ml 259.094 ml Intake Oral 480 ml IV Total 55 ml 259.094 ml Output Urine Total 0 ml 0 ml # Voids 1 # Bowel Movements 6 Laboratory Tests Test 06/29/18 08:38 White Blood Count 5.8 K/UL (4.8-10.8) Red Blood Count 4.18 M/UL (4.20-5.40) L Hemoglobin 11.3 G/DL (12.0-16.0) L Hematocrit 36.5 % (37.0-47.0) L Mean Corpuscular Volume 87 FL (80-99) Mean Corpuscular Hemoglobin 27.0 PG (27.0-31.0) Mean Corpuscular Hemoglobin Concent 30.9 G/DL (32.0-36.0) L Red Cell Distribution Width 15.1 % (11.6-14.8) H Platelet Count 129 K/UL (150-450) L Mean Platelet Volume 9.7 FL (6.5-10.1) Neutrophils (%) (Auto) 72.0 % (45.0-75.0) Lymphocytes (%) (Auto) 15.9 % (20.0-45.0) L Monocytes (%) (Auto) 8.5 % (1.0-10.0) Eosinophils (%) (Auto) 2.6 % (0.0-3.0) Basophils (%) (Auto) 1.1 % (0.0-2.0) Prothrombin Time 12.2 SEC (9.30-11.50) H Prothromb Time International Ratio 1.2 (0.9-1.1) H Activated Partial Thromboplast Time 44 SEC (23-33) H Sodium Level 129 MMOL/L (136-145) L Potassium Level 4.9 MMOL/L (3.5-5.1) Chloride Level 97 MMOL/L (98-107) L Carbon Dioxide Level 19 MMOL/L (21-32) L Anion Gap 13 mmol/L (5-15) Blood Urea Nitrogen 63 mg/dL (7-18) H Creatinine 6.4 MG/DL (0.55-1.30) H Estimat Glomerular Filtration Rate 7.9 mL/min (>60) Glucose Level 78 MG/DL (74-106) Calcium Level 8.4 MG/DL (8.5-10.1) L Height (Feet): 5 Height (Inches): 6.00 Weight (Pounds): 240 Medications Current Medications Medications (Trade) Dose Ordered Sig/Andre Route PRN Reason Start Time Stop Time Status Last Admin Dose Admin Acetaminophen (Tylenol) 500 mg Q6H PRN ORAL Mild Pain/Temp > 100.5 06/28/18 20:00 07/28/18 19:59 Aspirin (ASA) 81 mg DAILY ORAL 06/29/18 09:00 07/13/18 08:59 Atorvastatin Calcium (Lipitor) 10 mg BEDTIME ORAL 06/28/18 21:00 07/13/18 20:59 Barium Sulfate (Readi-Cat 2) 450 ml NOW PRN ORAL Radiology Procedure 06/29/18 18:15 07/01/18 18:13 Chlorhexidine Gluconate (Fabiola-Hex 2%) 1 applic DAILY@1999 TOPIC 06/28/18 20:00 07/18/18 19:59 06/28/18 20:08 Collagenase (Santyl) 1 applic DAILY TOPIC 06/29/18 09:00 07/13/18 08:59 06/29/18 09:02 Dextrose (Dextrose 50%) 25 ml Q30M PRN IV Hypoglycemia 06/28/18 18:45 07/17/18 20:14 Dextrose (Dextrose 50%) 50 ml Q30M PRN IV Hypoglycemia 06/28/18 18:45 07/17/18 20:14 Dopamine HCl/ Dextrose 250 ml @ 0 mls/hr Q24H IV 06/28/18 18:45 07/28/18 18:44 06/29/18 07:00 Heparin Sodium (Porcine) (Heparin 5000 units/ml) 5,000 units EVERY 12 HOURS SUBQ 06/28/18 21:00 07/13/18 08:59 Heparin Sodium (Porcine) (Heparin Sod 1000 units/ml 10ml) 2,000 unit ONCE ONCE IV 06/30/18 08:30 06/30/18 08:31 Insulin Aspart (NovoLOG) BEFORE MEALS AND HS SUBQ 06/28/18 21:00 07/17/18 20:59 Meropenem 500 mg/ Sodium Chloride 55 ml @ 110 mls/hr Q24H IVPB 06/29/18 14:00 07/25/18 13:59 06/29/18 14:00 Multivitamins Therapeutic (Therapeutic Multivitamin) 1 ea DAILY ORAL 06/29/18 09:00 07/13/18 08:59 Pantoprazole (Protonix) 40 mg ACBREAKFAST ORAL 06/29/18 06:30 07/27/18 06:29 Sodium Chloride 1,000 ml @ 500 mls/hr Q2H PRN IVLG sbp<90 during hd 06/30/18 08:17 07/30/18 08:16 Vancomycin HCl (Vanco rx to dose) 1 ea DAILY PRN MISC Per rx protocol 06/29/18 08:15 07/29/18 08:14 Assessment/Plan Assessment/Plan Left heel wound / pressure ulcer Wound examined and not active infection noted MRI reviewed; no abscess and question of osteo from history chronic osteo on IV Abx for some time now Afebrile No leukocytosis; no shift Blood cultures negative unlikely etiology of sepsis / critical condition to be this left heel wound that is chronic and seems to be healing good distal cap refill currently. currently do not recommend amputation cont to identify etiology. Agree with CT C/A/P Cont Abx HD when stable as she is fluid overloaded Local wound care as described by podiatry for heel ulcer thank you Tuan Luis Jun 29, 2018 19:34
[2018-06-29] MEDS: Dyna-Hex 2% Top Sol 2oz TOPIC SCH (19:43)
--- NOTE | 2018-06-29 20:00 | NUR ---
NURSE NOTES: Received pt in bed. Sinus rhythm on the monitor with HR 65. RADHA AV shut for dialysis, dressing dry and intact at this time. MARCELO Midline running dopamine at 3 mcg/min. Pt currently on 2 L NC. Lethargic. Right BKA and left heel noted with heel dressing dry and intact at this time. On p200 mattress. On contact precautions. Bed locked alarm on. No signs of distress noted,Will continue to monitor.
--- NOTE | 2018-06-29 21:10 | NUR ---
NURSE NOTES: BS 62 at this time 25ml D50 given. Will recheck
--- NOTE | 2018-06-29 21:25 | NUR ---
NURSE NOTES: Paged MD Salmon for Stat results.
--- NOTE | 2018-06-29 21:35 | NUR ---
NURSE NOTES: MD Salmon called back with orders and order to contact Ant for CT chest results. Orders read back and confirmed by
--- NOTE | 2018-06-29 21:35 | NUR ---
NURSE NOTES: MD Aburto ordered wound vac for Left heel at this time and left heel to be elevated with 2 pillows.
--- NOTE | 2018-06-29 21:40 | NUR ---
NURSE NOTES: Message left for MD Cain with CT chest results. awaiting call back
--- NOTE | 2018-06-29 21:43 | NUR ---
NURSE NOTES: MD Rehman called with order to do stat ABG at this time.
--- NOTE | 2018-06-29 22:00 | NUR ---
NURSE NOTES: Called and notified Md Christiansen about ABG results. Order is to place pt on 4L NC
--- NOTE | 2018-06-29 22:00 | NUR ---
NURSE NOTES: BS recheck now 73.
[2018-06-30] VITALS (48 sets, daily range): BP systolic 108–146; BP diastolic 35–78
--- NOTE | 2018-06-30 | NUR ---
NURSE NOTES: Pt turned and repositioned at this time. Continues on Dopamine at 4 mcg/min at this time. Will continue to monitor
--- NOTE | 2018-06-30 02:00 | NUR ---
NURSE NOTES: Dopamine now at 3 mcg/min, SBP > 90. Pt continues to be lethargic at this time. No signs of distress noted. Will continue to monitor.
--- NOTE | 2018-06-30 03:45 | Consultation ---
DATE OF CONSULTATION: 06/29/2018 VASCULAR SURGERY CONSULTATION CONSULTING PHYSICIAN: Devon Aburto M.D. REFERRING PHYSICIAN: Brenda Fuller M.D. REASON FOR CONSULTATION: Left heel wound evaluation. HISTORY OF PRESENT ILLNESS: This is a 72-year-old female who suffers from diabetes mellitus, hypertension, and end-stage renal failure on hemodialysis through right arm AV shunt. The patient is currently in the ICU with labile blood pressure and pressors, lethargic, and possible septic. Vascular Surgery is consulted for evaluation of the chronic left heel wound. PAST MEDICAL HISTORY: As above. History of end-stage renal failure on hemodialysis, right leg below-knee amputation, blindness, chronic anemia, coronary artery disease, left heel wound osteomyelitis, and right arm AV shunt. MEDICATIONS: See attached MAR. ALLERGIES: Listed: 1. Codeine. 2. Benazepril. 3. Insulin. 4. Morphine. 5. HE inhibitors. SOCIAL HISTORY: Unobtainable. FAMILY HISTORY: Unobtainable. REVIEW OF SYSTEMS: Unobtainable. The patient is lethargic. PHYSICAL EXAMINATION: GENERAL: The patient is awake, but lethargic and unresponsive. VITAL SIGNS: She is afebrile at 98, heart rate is 76, blood pressure is 104/50, and respirations 18. She has palpable right arm AV shunt thrill. She has edema and anasarca. LUNGS: Rhonchi bilaterally. HEART: Rate is regular. ABDOMEN: Soft and nontender. EXTREMITIES: She has palpable femoral pulses. Intact popliteal pedal pulse. Left foot has strong Dopplers. Right below-knee amputation stump is clean, dry, and intact. Left heel wound is pink with good granulation. There is no drainage. No pus. No cellulitis. No gross signs of infection LABORATORY AND DIAGNOSTIC DATA: Revealed WBC of 5.8, hemoglobin 11.3, and platelet count is 129,000. Sodium 139, potassium 4.9, BUN is 63, creatinine 6.4, and glucose is 78. INR is 1.2 and PTT 44. Blood cultures are no growth. She has positive VRE. IMPRESSION: 1. Heart failure with anasarca, worsening edema. 2. Chronic left heel wound pink granulation with a history of osteo with strong foot Dopplers. No clinical signs of acute infection. 3. Lethargic encephalopathy, likely underlying uremia, failure and sepsis. 4. Diabetes mellitus. 5. Right leg below-knee amputation. PLAN AND RECOMMENDATIONS: 1. Cardiology optimization in progress. 2. Continue with dialysis through the right arm AV shunt. 3. Left leg elevation, left foot x-ray, order CT scan chest abd pelvis to rule out other sources of sepsis and failure. 4. Currently, she is a very high risk for any type of invasive procedures. The patient needs to be more medically optimized. Hemodialysis therapy per renal. 5. We will follow with Podiatry and General Surgery regarding the left heel wound. 6. Antibiotics per Infectious Disease service and rule out other sources of infection. Devon Aburto M.D. DR: NIXON JOB#: [id number] CC: Derrek Byers M.D. MTDSelin
--- NOTE | 2018-06-30 04:00 | NUR ---
NURSE NOTES: Wound care provided. Bed bath given. Continues on Dopamine @ 3 mcg/min. No signs of distress noted. Will continue to monitor.
--- NOTE | 2018-06-30 05:40 | NUR ---
NURSE NOTES: Dialysis nurse at the bedside
[2018-06-30 06:13] LABS: ALBUMIN 1.7 G/DL (3.4-5.0); AMYLASE 29 U/L (25-115); ANION GAP 12 mmol/L (5-15); BLOOD UREA NITROGEN 67 mg/dL (7-18); CALCIUM 8.3 MG/DL (8.5-10.1); CARBON DIOXIDE 19 MMOL/L (21-32); CHLORIDE 99 MMOL/L (98-107); CREATININE 6.4 MG/DL (0.55-1.30); PHOSPHORUS 6.2 MG/DL (2.5-4.9); POTASSIUM 5.3 MMOL/L (3.5-5.1); SODIUM 130 MMOL/L (136-145)
[2018-06-30] MEDS: NovoLOG Insulin Flexpen SUBQ SCH ×4 (06:30→20:44)
--- NOTE | 2018-06-30 07:28 | NUR ---
HAND-OFF: Report given to Nitai RN using SBAR. Pt continues on dialysis at this time. Dopamine running at 3 mcg/min.
--- NOTE | 2018-06-30 08:00 | NUR ---
NURSE NOTES: Received patient lethargic, arouses to name, garbled speech. investor relations specialist showing SR. Patient on 4 L nasal cannula initially, order changed by Dr. Rolon to 2 L NC. Patient RR 14, saturating 100%. No Distress noted. Lung sounds diminished bilaterally. Patient unable to swallow at the time. MD aware. 9 AM PO Meds wont be administered due to aspiration precaution. Dialysis completed. 1 L output. Multiple skin issues. L heel open wound. Wound VAC ordered by MD, orders clarified, wound care nurse notified, supplies ordered. Hypoactive bowel sounds on all 4 quadrant, round soft abdomen. R upper arm AV shunt. R upper arm midline. Due to consecutive low BS readings order obtained of D10 0.45 NS at 30 cc/hr. Dopamine at 3 mcg/hr. Potassium of 5.3 notified to MD, sodium notified to MD. Dr. Fuller aware that patient has not beed eating due to lethargic state - no feeding orders given by MD. Dialysis order obtained for tomorrow - MD notified dialysis nurse. Will continue to monitor patient. HOB elevated, call light within reach, bed on lowest position, bed alarm on for safety.
[2018-06-30] MEDS ORDERED: Heparin Sod 1000 units/ml 10ml IV SCH (08:30)
[2018-06-30] MEDS ORDERED: Heparin Sod 1000 units/ml 10ml IV ONE (08:30)
[2018-06-30] MEDS: Aspirin Baby 81mg ORAL SCH (08:39)
[2018-06-30] MEDS: Multivitamin w/Minerals tab ORAL SCH (08:39)
[2018-06-30] MEDS: Heparin 5000 units/ml inj SUBQ SCH ×2 (08:39→20:45)
--- NOTE | 2018-06-30 08:40 | NUR ---
NURSE NOTES: Notified MD that patient is lethargic and unable to swallow morning meds. Recommended NGT doctor Shector did not want patient to have NGT. PO meds non-admin.
[2018-06-30] MEDS: Dextrose 10%/.45 SOD CHL 1,000 ML IV SCH (08:41)
--- NOTE | 2018-06-30 08:53 | Nephrology Progress Note ---
Assessment/Plan Plan Worsening septic shock. Failure of IV Abx to treat left foot nonhealing and unrelenting left foot infection with progressive extension to the surrounding tissues. Now patient in septic shock. DW all consultants . Had lengthy DW all consultants. Not sure where the source of sepsis is. Current thinking - maybe extensive pneumonia. Patient covered with broad spectrum IV Abx. Hypoxemia - on O2 therapy. Hypoglycemia - on iv dextrose. Daily HD . Subjective Subjective All noted. Had lengthy and repeat discussions with all consultants, especially with Dr. Luis. Patient is definitely more septic. Back in iICU due to hypotension. Couldn't get HD last night. Overnight lethargicc Objective Objective Last 24 Hour Vital Signs Date Time Temp Pulse Resp B/P (MAP) Pulse Ox O2 Delivery O2 Flow Rate FiO2 06/30/18 07:30 97.7 75 14 112/45 (67) 95 06/30/18 07:00 76 14 117/43 (67) 95 06/30/18 06:30 75 14 116/53 (74) 95 06/30/18 06:00 74 15 139/58 (85) 97 06/30/18 05:30 76 15 129/61 (83) 97 06/30/18 05:00 75 14 133/69 (90) 98 06/30/18 04:30 75 14 128/35 (66) 99 06/30/18 04:00 Nasal Cannula 2.0 06/30/18 04:00 97.9 76 16 134/65 (88) 100 06/30/18 04:00 76 06/30/18 03:30 75 16 131/65 (87) 100 06/30/18 03:00 73 11 110/54 (72) 98 06/30/18 02:30 75 11 109/49 (69) 99 06/30/18 02:00 79 11 114/53 (73) 99 06/30/18 01:30 81 14 146/64 (91) 99 06/30/18 01:00 81 15 134/76 (95) 99 06/30/18 00:30 81 16 125/72 (89) 99 06/30/18 00:00 81 06/30/18 00:00 Nasal Cannula 2.0 06/30/18 00:00 82 14 132/78 (96) 100 06/29/18 23:30 97.9 82 15 120/59 (79) 99 126/18 23:00 82 15 120/82 (95) 99 12/18 22:30 90 15 128/49 (75) 99 12//18 22:00 90 15 128/49 (75) 99 12/6/18 21:30 84 15 132/41 (71) 99 12/6/18 21:00 90 15 128/49 (75) 99 12/18 20:30 92 14 128/51 (76) 98 18 20:00 Nasal Cannula 2.0 18 20:00 93 18 136/52 (80) 98 18 20:00 93 18 19:43 127/50 18 19:30 97.9 89 13 127/20 (55) 98 06/29/18 19:00 85 13 106/20 (48) 98 06/29/18 18:30 85 13 104/20 (48) 98 18 18:00 85 13 110/20 (50) 98 18 17:30 88 13 116/20 (52) 98 18 17:00 80 13 105/15 (45) 98 06/29/18 16:30 75 13 100/15 (43) 98 18 16:00 83 06/29/18 16:00 Nasal Cannula 2.0 06/29/18 16:00 97.9 82 11 95/23 (47) 97 06/29/18 15:30 80 13 93/15 (41) 98 18 15:00 79 13 92/15 (40) 98 18 14:30 80 13 99/15 (43) 98 18 14:00 82 13 106/17 (46) 98 06/29/18 13:30 80 13 109/15 (46) 98 06/29/18 13:00 85 13 110/15 (46) 98 18 12:30 80 13 115/20 (51) 98 06/29/18 12:00 Nasal Cannula 2.0 06/29/18 12:00 82 18 12:00 97.8 82 11 110/23 (52) 97 18 11:30 79 13 100/15 (43) 98 12/6/18 11:00 80 13 93/15 (41) 98 06/29/18 11:00 136/61 06/29/18 10:30 79 13 89/20 (43) 98 06/29/18 10:00 82 17 103/32 (55) 98 06/29/18 10:00 134/76 06/29/18 09:30 86 18 122/27 (58) 98 06/29/18 09:00 134/65 06/29/18 09:00 84 13 102/23 (49) 98 Intake and Output 06/29/18 06/30/18 18:59 06:59 Intake Total 496.45 ml 174.076 ml Output Total 0 ml 0 ml Balance 496.45 ml 174.076 ml IV Total 496.45 ml 174.076 ml Output Urine Total 0 ml 0 ml Laboratory Tests 06/29/18 21:43: Arterial Blood pH 7.203*L, Arterial Blood Partial Pressure CO2 47.9H, Arterial Blood Partial Pressure O2 79.1, Arterial Blood HCO3 18.4L, Arterial Blood Oxygen Saturation 94.2L, Arterial Blood Base Excess -9.3*L, Nicola Test Positive 06/30/18 04:20: Sodium Level 130L, Potassium Level 5.3H, Chloride Level 99, Carbon Dioxide Level 19L, Anion Gap 12, Blood Urea Nitrogen 67H, Creatinine 6.4H, Estimat Glomerular Filtration Rate 7.9, Glucose Level 56L, Calcium Level 8.3L, Phosphorus Level 6.2H, Troponin I 0.180H, Albumin 1.7L, Amylase Level 29, Lipase 49L 06/30/18 08:05: Arterial Blood pH 7.307L, Arterial Blood Partial Pressure CO2 48.2H, Arterial Blood Partial Pressure O2 88.2, Arterial Blood HCO3 23.6, Arterial Blood Oxygen Saturation 95.9, Arterial Blood Base Excess -2.9L, Nicola Test Positive Height (Feet): 5 Height (Inches): 6.00 Weight (Pounds): 239 Objective Blind Cv RR Lungs CTA Abd SNT. BS + E Rt AKA stump clean. Lt. heel ulcer. Lethargic but easily arouable Brenda Fuller MD Jun 30, 2018 08:53
--- NOTE | 2018-06-30 09:19 | Diagnostic Imaging Report ---
CLINICAL INDICATION:Weakness, abdominal pain, infection TECHNIQUE: No oral contrast, reason not stated. IV administration nonionic contrast Spiral acquisitions obtained through the chest, abdomen, and pelvis. Multiplanar reconstructions were generated. Total dose length product 1278.11 mGycm. CTDIvol(s) 18.6 mGy. Radiation dose was minimized using automated exposure control COMPARISON: none FINDINGS Chest: There is a massive left pleural effusion. This results in complete atelectasis of the left lung. There is also evidence of endobronchial occlusion of the left mainstem bronchus as well as proximal lobar bronchi. There is also a large right pleural effusion. This results in atelectasis of much of the right lower lobe and portions of the right middle lobe. There is hazy groundglass opacity throughout much of the residual aerated right lung. The heart is borderline enlarged. No mediastinal or hilar mass or adenopathy. There is diffuse edema of the mediastinum and subcutaneous fat. The bones are unremarkable. There is a left arm midline, tip terminating at the level of the subclavian vein. The esophagus is grossly unremarkable. Abdomen pelvis: Lack of enteric contrast limits assessment of the GI tract. No definite evidence of diverticulosis or diverticulitis. The appendix is large in caliber, measures up to 9 mm in diameter. Given how edematous the surrounding fat is in general, it is impossible to assess whether there are periappendiceal inflammatory changes. No extraluminal gas or fluid collections are demonstrated. No small bowel distention. There is a small amount of free intraperitoneal fluid. The stomach and duodenum are unremarkable. The gallbladder is distended. It does not appear to be thick-walled and there are no definite stones. The lack of IV contrast limits assessment of the solid organs. The liver, pancreas, spleen, adrenals are grossly unremarkable. A large cyst with mural calcifications, is off of the lower pole right kidney, measures 8.2 cm in diameter. The left kidney is unremarkable. No retroperitoneal mass or adenopathy. No mesenteric mass or adenopathy. Uterus and adnexal structures are unremarkable. The bladder is very thick walled. There is extensive diffuse edema of the subcutaneous and abdominal and pelvic fat. There is of extensive Monckeberg type vascular calcification, primarily involving the abdominal and pelvic vessels IMPRESSION: Anasarca, with bilateral pleural effusions, ascites, diffuse edema of the subcutaneous, thoracic, abdominal and pelvic fat Complete atelectasis of the left lung. This appears to be due to a combination of complete occlusion of the left mainstem and proximal lobar bronchi as well as a massive left pleural effusion Large right pleural effusion, partial atelectasis of the right lower and middle lobes Mild groundglass opacity in the residual aerated right lung. Likely due to combination of pulmonary edema and volume loss Borderline dilated appendix. Early appendicitis not excludable. Correlation with clinical findings is recommended Distended gallbladder without wall thickening or stones Markedly thickened bladder, suspect cystitis 8.2 cm right renal cyst with calcification This agrees with the preliminary interpretation provided overnight by [facility] telerad[facility] service. The CT scanner at [facility] is accredited by the [employer] and the scans are performed using protocols designed to limit radiation exposure to as low as reasonably achievable to attain images of sufficient resolution adequate for diagnostic evaluation.
--- NOTE | 2018-06-30 09:36 | Diagnostic Imaging Report ---
Indication: Pain, infection Technique: 3 views left foot Comparison: None Findings: There is evidence of prior bunionectomy. There is suggestion of soft tissue swelling of the great toe, as well as generalized edema. No acute fractures. No dislocations. Bones are diffusely osteoporotic. Tissue lucency in the region of the heel likely indicates an ulcer. No definite underlying osteolytic lesions, osseous erosions, or unusual periosteal reaction. There are vascular calcifications. There are mild degenerative changes of the first metatarsophalangeal joint. There are small plantar and calcaneal spurs Impression: Evidence of heel ulcer. No definite plain radiographic evidence of osteomyelitis. Note, however, limited sensitivity of plain radiographs for such. If there is high clinical suspicion, consider MRI with bone scan for further evaluation Osteoporosis No acute bony trauma Degenerative changes This agrees with the preliminary interpretation provided overnight by [facility].
--- NOTE | 2018-06-30 09:45 | Consultation ---
DATE OF CONSULTATION: 06/30/2018 PULMONARY CONSULTATION CONSULTING PHYSICIAN: Gustavo Rolon M.D. REFERRING PHYSICIAN: Brenda Fuller M.D. REASON FOR CONSULTATION: Respiratory insufficiency, evidence of pulmonary infiltrates, and large pleural effusion. HISTORY OF PRESENT ILLNESS: This is a 72-year-old female, presented to the emergency room. The patient has since been admitted. The patient has been here for approximately two weeks. The patient with multiple medical issues. The patient currently with left foot infection, concern for osteomyelitis, started on pressors. The patient admitted to the ICU for ongoing care and management. ICU care reviewed. The patient is currently on dopamine. The patient seen by multiple consultants. I was asked to evaluate and recommend further. The patient had a CT of chest, abdomen and pelvis ordered, but not yet done. The overall care reviewed. PAST MEDICAL HISTORY: Notable for pleural effusions, anemia, peripheral vascular disease, chronic kidney disease, non-STEMI, end-stage renal disease, diabetes, history of ORIF of the ankle, necrotic wound of right ankle, hypoalbuminemia, hypertension, diabetes, and multiple wounds. MEDICATIONS: Reviewed. ALLERGIES: Reviewed. SOCIAL HISTORY: The patient is disabled at present, nonsmoker, nondrinker. REVIEW OF SYSTEMS: Difficult to obtain due to the patient's clinical state. PHYSICAL EXAMINATION: GENERAL: A well-developed female chronically ill. VITAL SIGNS: Blood pressure 112/45, pulse 75, respirations 14, and sats 95%. HEENT: Overall negative. NECK: Supple. No jugular venous distention. LUNGS: Reduced breath sounds noted specifically on the left side. CARDIAC: Normal S1 and S2. Regular rate and rhythm. Currently, slightly bradycardic. ABDOMEN: Soft, nontender, and nondistended. EXTREMITIES: No cyanosis or clubbing. The patient has a right above knee stump, left heel with ulcers. NEUROLOGIC: Somewhat disoriented, appears to be grossly nonfocal. LABORATORY DATA: Reviewed. White count 5.8, hematocrit 36, and platelets are 129,000. Chemistries noted, sodium 130, potassium 5.3, BUN 67, and creatinine 6.4. Troponin 0.18. Albumin is 1.7. Arterial blood gas 7.2/47/39/15. Toxicology with vancomycin noted. Microbiology noted with Pseudomonas, Morganella, strep in the wound, and prior VRE. IMPRESSION: 1. Respiratory failure, acute. 2. Evidence of hypercapnia. 3. Evidence of metabolic acidosis. 4. Evidence of pleural effusion. 5. End-stage renal disease. 6. Elevated troponin. 7. Possible demand ischemia. 8. Severe protein-calorie malnutrition. 9. Hyponatremia. 10. Hyperkalemia. 11. Anemia. 12. Thrombocytopenia. 13. Mild coagulopathy. 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 RECOMMENDATIONS: Supportive care. Repeat stat ABG this morning. Follow up exam. Obtain thoracentesis. Close followup in the ICU. The patient may require intubation. IV antibiotics empiric and per culture findings and sensitivities. ID followup. Hemodialysis with ultrafiltration. Prognosis guarded and follow clinically for changes. Gustavo Rolon M.D. DR: MAYNOR JOB#: [id number] CC: REKHA
--- NOTE | 2018-06-30 10:00 | NUR ---
NURSE NOTES: Patient turned and repositioned. No new orders at this time. Will continue to monitor patient.
--- NOTE | 2018-06-30 10:05 | NUR ---
CASE MANAGEMENT: REVIEW SI: ESRD ON HD . BILATERAL PLEURAL EFFUSION T 97.7 HR 75 RR 14 BP 117/43 SAT 95% NC/2L NA 130 K 5.3 BUN 67 CR 6.4 GLUCOSE 56 TROPONIN I 0.180 IS: D10 1/2 NS @30 ML/HR DOPAMINE IV Q24HR MEROPENEM IV Q24HR HEPARIN IV PRN NOVOLOG SQ AC/HS STEP DOWN UNIT STATUS DCP: PATIENT IS FROM [facility]
--- NOTE | 2018-06-30 10:48 | Infectious Diseases Prog Note ---
"Assessment/Plan Assessment/Plan antibiotics : vancomycin iv, meropenem A 1. calcaneal osteomyelitis with group B streptococcus | pseudomonas | morganella s/p repeated rx 2. renal failure 3. diabetes mellitus 4. hypertension 5. rectal VRE colonization 6. shock 7. pneumonia P 1. continue meropenem 2. blood culture 3. sputum culture 4. iv vancomycin started 5. will follow up cultures Subjective ROS Limited/Unobtainable: Yes Allergies: Coded Allergies: BENAZEPRIL (Verified Allergy, Unknown, 06/12/18) CODEINE (Verified Allergy, Unknown, 06/12/18) INSULIN ASPART (Verified Allergy, Unknown, 06/12/18) INSULIN DETEMIR (Verified Allergy, Unknown, 06/12/18) OPIOIDS - MORPHINE ANALOGUES (Verified Allergy, Unknown, 06/12/18) Objective Vital Signs Last 24 Hour Vital Signs Date Time Temp Pulse Resp B/P (MAP) Pulse Ox O2 Delivery O2 Flow Rate FiO2 06/30/18 10:00 78 13 128/55 (79) 99 06/30/18 09:30 77 11 122/50 (74) 99 06/30/18 09:00 79 12 132/53 (79) 99 06/30/18 08:30 75 12 145/62 (89) 99 06/30/18 08:00 Nasal Cannula 2.0 06/30/18 08:00 75 06/30/18 08:00 76 14 140/74 (96) 98 06/30/18 07:30 97.7 75 14 112/45 (67) 95 06/30/18 07:00 76 14 117/43 (67) 95 06/30/18 06:30 75 14 116/53 (74) 95 06/30/18 06:00 74 15 139/58 (85) 97 06/30/18 05:30 76 15 129/61 (83) 97 06/30/18 05:00 75 14 133/69 (90) 98 06/30/18 04:30 75 14 128/35 (66) 99 06/30/18 04:00 Nasal Cannula 2.0 06/30/18 04:00 97.9 76 16 134/65 (88) 100 06/30/18 04:00 76 06/30/18 03:30 75 16 131/65 (87) 100 06/30/18 03:00 73 11 110/54 (72) 98 06/30/18 02:30 75 11 109/49 (69) 99 06/30/18 02:00 79 11 114/53 (73) 99 06/30/18 01:30 81 14 146/64 (91) 99 06/30/18 01:00 81 15 134/76 (95) 99 06/30/18 00:30 81 16 125/72 (89) 99 06/30/18 00:00 81 06/30/18 00:00 Nasal Cannula 2.0 06/30/18 00:00 82 14 132/78 (96) 100 06/29/18 23:30 97.9 82 15 120/59 (79) 99 06/29/18 23:00 82 15 120/82 (95) 99 06/29/18 22:30 90 15 128/49 (75) 99 06/29/18 22:00 90 15 128/49 (75) 99 06/29/18 21:30 84 15 132/41 (71) 99 06/29/18 21:00 90 15 128/49 (75) 99 06/29/18 20:30 92 14 128/51 (76) 98 06/29/18 20:00 Nasal Cannula 2.0 06/29/18 20:00 93 18 136/52 (80) 98 06/29/18 20:00 93 06/29/18 19:43 127/50 06/29/18 19:30 97.9 89 13 127/20 (55) 98 06/29/18 19:00 85 13 106/20 (48) 98 06/29/18 18:30 85 13 104/20 (48) 98 06/29/18 18:00 85 13 110/20 (50) 98 06/29/18 17:30 88 13 116/20 (52) 98 06/29/18 17:00 80 13 105/15 (45) 98 06/29/18 16:30 75 13 100/15 (43) 98 06/29/18 16:00 83 06/29/18 16:00 Nasal Cannula 2.0 06/29/18 16:00 97.9 82 11 95/23 (47) 97 06/29/18 15:30 80 13 93/15 (41) 98 06/29/18 15:00 79 13 92/15 (40) 98 06/29/18 14:30 80 13 99/15 (43) 98 06/29/18 14:00 82 13 106/17 (46) 98 06/29/18 13:30 80 13 109/15 (46) 98 06/29/18 13:00 85 13 110/15 (46) 98 06/29/18 12:30 80 13 115/20 (51) 98 06/29/18 12:00 Nasal Cannula 2.0 06/29/18 12:00 82 06/29/18 12:00 97.8 82 11 110/23 (52) 97 06/29/18 11:30 79 13 100/15 (43) 98 06/29/18 11:00 80 13 93/15 (41) 98 06/29/18 11:00 136/61 Height (Feet): 5 Height (Inches): 6.00 Weight (Pounds): 239 Respiratory/Chest: lungs clear Cardiovascular: normal rate, regular rhythm, no gallop/murmur Abdomen: soft, non tender Extremities: other - right stump clean, left foot necrotic ulcer, left arm PICC Laboratory Tests Test 06/29/18 21:43 06/30/18 04:20 06/30/18 08:05 Arterial Blood pH 7.203 (7.350-7.450) 7.307 (7.350-7.450) Arterial Blood Partial Pressure CO2 47.9 mmHg (35.0-45.0) H 48.2 mmHg (35.0-45.0) H Arterial Blood Partial Pressure O2 79.1 mmHg (75.0-100.0) 88.2 mmHg (75.0-100.0) Arterial Blood HCO3 18.4 mmol/L (22.0-26.0) L 23.6 mmol/L (22.0-26.0) Arterial Blood Oxygen Saturation 94.2 % (95-100) L 95.9 % (95-100) Arterial Blood Base Excess -9.3 (-2-2) *L -2.9 (-2-2) L Nicola Test Positive Positive Sodium Level 130 MMOL/L (136-145) L Potassium Level 5.3 MMOL/L (3.5-5.1) H Chloride Level 99 MMOL/L (98-107) Carbon Dioxide Level 19 MMOL/L (21-32) L Anion Gap 12 mmol/L (5-15) Blood Urea Nitrogen 67 mg/dL (7-18) H Creatinine 6.4 MG/DL (0.55-1.30) H Estimat Glomerular Filtration Rate 7.9 mL/min (>60) Glucose Level 56 MG/DL (74-106) L Calcium Level 8.3 MG/DL (8.5-10.1) L Phosphorus Level 6.2 MG/DL (2.5-4.9) H Troponin I 0.180 ng/mL (0.000-0.056) Albumin 1.7 G/DL (3.4-5.0) L Amylase Level 29 U/L (25-115) Lipase 49 U/L (73-393) L Current Medications Medications (Trade) Dose Ordered Sig/Andre Route PRN Reason Start Time Stop Time Status Last Admin Dose Admin Acetaminophen (Tylenol) 500 mg Q6H PRN ORAL Mild Pain/Temp > 100.5 06/28/18 20:00 07/28/18 19:59 Aspirin (ASA) 81 mg DAILY ORAL 06/29/18 09:00 07/13/18 08:59 Atorvastatin Calcium (Lipitor) 10 mg BEDTIME ORAL 06/28/18 21:00 07/13/18 20:59 Barium Sulfate (Readi-Cat 2) 450 ml NOW PRN ORAL Radiology Procedure 06/29/18 18:15 07/01/18 18:13 Chlorhexidine Gluconate (Fabiola-Hex 2%) 1 applic DAILY@2000 TOPIC 06/28/18 20:00 07/18/18 19:59 06/29/18 19:43 Collagenase (Santyl) 1 applic DAILY TOPIC 06/29/18 09:00 07/13/18 08:59 06/30/18 08:39 Dextrose (Dextrose 50%) 25 ml Q30M PRN IV Hypoglycemia 06/28/18 18:45 07/17/18 20:14 06/29/18 21:09 Dextrose (Dextrose 50%) 50 ml Q30M PRN IV Hypoglycemia 06/28/18 18:45 07/17/18 20:14 06/30/18 05:31 Dextrose/Sodium Chloride 1,000 ml @ 30 mls/hr Q24H IV 06/30/18 09:00 07/30/18 08:59 06/30/18 08:41 Dopamine HCl/ Dextrose 250 ml @ 0 mls/hr Q24H IV 06/28/18 18:45 07/28/18 18:44 06/29/18 19:43 Heparin Sodium (Porcine) (Heparin 5000 units/ml) 5,000 units EVERY 12 HOURS SUBQ 06/28/18 21:00 07/13/18 08:59 Heparin Sodium (Porcine) (Heparin Sod 1000 units/ml 10ml) 2,000 unit ONCE IV 06/30/18 08:30 06/30/18 18:00 Insulin Aspart (NovoLOG) BEFORE MEALS AND HS SUBQ 06/28/18 21:00 07/17/18 20:59 Meropenem 500 mg/ Sodium Chloride 55 ml @ 110 mls/hr Q24H IVPB 06/29/18 14:00 07/25/18 13:59 06/29/18 14:00 Multivitamins Therapeutic (Therapeutic Multivitamin) 1 ea DAILY ORAL 06/29/18 09:00 07/13/18 08:59 Pantoprazole (Protonix) 40 mg ACBREAKFAST ORAL 06/29/18 06:30 07/27/18 06:29 Sodium Chloride 1,000 ml @ 500 mls/hr Q2H PRN IVLG sbp<90 during hd 06/30/18 08:17 06/30/18 18:00 Vancomycin HCl (Vanco rx to dose) 1 ea DAILY PRN MISC Per rx protocol 06/29/18 08:15 07/29/18 08:14 Naya Cain MD Jun 30, 2018 10:48"
--- NOTE | 2018-06-30 12:00 | NUR ---
NURSE NOTES: Patient turned and repositioned. Thoracenthesis was done successfully. Patient tolerated procedure well. 400 ML output from thora. will continue to monitor patient.
--- NOTE | 2018-06-30 12:10 | Diagnostic Imaging Report ---
Indication: Abnormal liver function tests. Abnormal renal function tests Technique: Durham-scale and duplex images of the upper abdomen were obtained. Doppler interrogation of the pancreatic and hepatic vessels Comparison: none. Reference made to recent abdomen pelvis CT Findings: There is ascites fluid. There is a right pleural effusion. Left pleural effusion described on recent CT cannot be visualized due to patient positioning. Gallbladder demonstrates sludge and possible small calculi. Gallbladder wall is borderline thickened, measuring 3 mm thick. Sonographic Estrella's sign is negative. Common bile duct measures for mm in diameter. No intrahepatic biliary ductal dilatation. Liver demonstrates normal echogenicity, no focal abnormality. It does demonstrate surface nodularity. Portal vein and hepatic veins are patent. Echogenic focus within the pancreatic head is probably arterial calcification. Spleen is unremarkable. Left kidney measures 10.5 cm in length. Right kidney measures 11.5 cm length. Both kidneys demonstrate increased echogenicity. The right kidney demonstrates a 6.8 cm cyst in the lower pole. There is no hydronephrosis. There are punctate calcifications in the renal sinuses bilaterally. These are most likely arterial, based on prior CT scan . Abdominal aorta is partially obscured by bowel gas, visualized portions are non-aneurysmal . Impression: Gallbladder sludge and questionable stones Mild gallbladder wall thickening, probably a manifestation of anasarca, but acute cholecystitis not completely excludable as etiology. Consider nuclear medicine hepatobiliary scan if there is high clinical suspicion Ascites fluid, right pleural effusion, also described on recent CT. Large right lower pole renal cyst, also described on recent CT Possible hepatic surface nodularity, could indicate early cirrhotic change Echogenic kidneys, consistent with medical renal disease Echogenic foci within the kidney are probably arterial calcifications
--- NOTE | 2018-06-30 12:13 | Pre-Procedure Note/Attestation ---
Pre-Procedure Note/Attestation Complete Prior to Procedure Planned Procedure: left Procedure Narrative: thoracentesis Indications for Procedure Pre-Operative Diagnosis: pleural effusion Attestation I attest that I discussed the nature of the procedure; its benefits; risks and complications; and alternatives (and the risks and benefits of such alternatives ), prior to the procedure, with the patient (or the patient's legal real estate representative). I attest that, if there was a reasonable possibility of needing a blood transfusion, the patient (or the patient's legal real estate representative) was given the [facility] standardized written summary, pursuant to the Shaun [place] Blood Safety Act ([place] Health and Safety Code # 1645, as amended). I attest that I re-evaluated the patient just prior to the surgery and that there has been no change in the patient's H&P, except as documented below: Discussed by phone with pt's. daughter Sebastian Acosta MD Jun 30, 2018 12:13
--- NOTE | 2018-06-30 12:28 | General Surgery Progress Note ---
General Surgery-Progress Note Subjective Additional Comments more awake and responsive today. still ill. labs noted. wound stable. CT findings reviewed Objective Last 24 Hour Vital Signs Date Time Temp Pulse Resp B/P (MAP) Pulse Ox O2 Delivery O2 Flow Rate FiO2 06/30/18 11:30 78 13 118/54 (75) 99 06/30/18 11:00 80 13 125/62 (83) 99 18 10:30 77 13 118/60 (79) 99 06/30/18 10:00 78 13 128/55 (79) 99 06/30/18 09:30 77 11 122/50 (74) 99 06/30/18 09:00 79 12 132/53 (79) 99 06/30/18 08:30 75 12 145/62 (89) 99 06/30/18 08:00 Nasal Cannula 2.0 06/30/18 08:00 75 06/30/18 08:00 76 14 140/74 (96) 98 06/30/18 07:30 97.7 75 14 112/45 (67) 95 06/30/18 07:00 76 14 117/43 (67) 95 06/30/18 06:30 75 14 116/53 (74) 95 06/30/18 06:00 74 15 139/58 (85) 97 06/30/18 05:30 76 15 129/61 (83) 97 06/30/18 05:00 75 14 133/69 (90) 98 06/30/18 04:30 75 14 128/35 (66) 99 06/30/18 04:00 Nasal Cannula 2.0 06/30/18 04:00 97.9 76 16 134/65 (88) 100 06/30/18 04:00 76 06/30/18 03:30 75 16 131/65 (87) 100 06/30/18 03:00 73 11 110/54 (72) 98 06/30/18 02:30 75 11 109/49 (69) 99 06/30/18 02:00 79 11 114/53 (73) 99 06/30/18 01:30 81 14 146/64 (91) 99 06/30/18 01:00 81 15 134/76 (95) 99 06/30/18 00:30 81 16 125/72 (89) 99 06/30/18 00:00 81 06/30/18 00:00 Nasal Cannula 2.0 06/30/18 00:00 82 14 132/78 (96) 100 06/29/18 23:30 97.9 82 15 120/59 (79) 99 06/29/18 23:00 82 15 120/82 (95) 99 06/29/18 22:30 90 15 128/49 (75) 99 18 22:00 90 15 128/49 (75) 99 06/29/18 21:30 84 15 132/41 (71) 99 06/29/18 21:00 90 15 128/49 (75) 99 06/29/18 20:30 92 14 128/51 (76) 98 06/29/18 20:00 Nasal Cannula 2.0 06/29/18 20:00 93 18 136/52 (80) 98 06/29/18 20:00 93 06/29/18 19:43 127/50 06/29/18 19:30 97.9 89 13 127/20 (55) 98 06/29/18 19:00 85 13 106/20 (48) 98 06/29/18 18:30 85 13 104/20 (48) 98 06/29/18 18:00 85 13 110/20 (50) 98 06/29/18 17:30 88 13 116/20 (52) 98 06/29/18 17:00 80 13 105/15 (45) 98 06/29/18 16:30 75 13 100/15 (43) 98 06/29/18 16:00 83 06/29/18 16:00 Nasal Cannula 2.0 06/29/18 16:00 97.9 82 11 95/23 (47) 97 06/29/18 15:30 80 13 93/15 (41) 98 06/29/18 15:00 79 13 92/15 (40) 98 06/29/18 14:30 80 13 99/15 (43) 98 06/29/18 14:00 82 13 106/17 (46) 98 06/29/18 13:30 80 13 109/15 (46) 98 06/29/18 13:00 85 13 110/15 (46) 98 06/29/18 12:30 80 13 115/20 (51) 98 I&O Intake and Output 06/29/18 06/30/18 18:59 06:59 Intake Total 496.45 ml 174.076 ml Output Total 0 ml 0 ml Balance 496.45 ml 174.076 ml IV Total 496.45 ml 174.076 ml Output Urine Total 0 ml 0 ml Dressing: saturated Wound: clean, other Drains: other Cardiovascular: other - tachy Respiratory: decreased breath sounds Abdomen: non-tender, other - anasarca Extremities: edema Laboratory Tests Test 06/29/18 21:43 06/30/18 04:20 06/30/18 08:05 Arterial Blood pH 7.203 (7.350-7.450) 7.307 (7.350-7.450) Arterial Blood Partial Pressure CO2 47.9 mmHg (35.0-45.0) H 48.2 mmHg (35.0-45.0) H Arterial Blood Partial Pressure O2 79.1 mmHg (75.0-100.0) 88.2 mmHg (75.0-100.0) Arterial Blood HCO3 18.4 mmol/L (22.0-26.0) L 23.6 mmol/L (22.0-26.0) Arterial Blood Oxygen Saturation 94.2 % (95-100) L 95.9 % (95-100) Arterial Blood Base Excess -9.3 (-2-2) *L -2.9 (-2-2) L Nicola Test Positive Positive Sodium Level 130 MMOL/L (136-145) L Potassium Level 5.3 MMOL/L (3.5-5.1) H Chloride Level 99 MMOL/L (98-107) Carbon Dioxide Level 19 MMOL/L (21-32) L Anion Gap 12 mmol/L (5-15) Blood Urea Nitrogen 67 mg/dL (7-18) H Creatinine 6.4 MG/DL (0.55-1.30) H Estimat Glomerular Filtration Rate 7.9 mL/min (>60) Glucose Level 56 MG/DL (74-106) L Calcium Level 8.3 MG/DL (8.5-10.1) L Phosphorus Level 6.2 MG/DL (2.5-4.9) H Troponin I 0.180 ng/mL (0.000-0.056) Albumin 1.7 G/DL (3.4-5.0) L Amylase Level 29 U/L (25-115) Lipase 49 U/L (73-393) L Plan Additional Comments CT noted. CT chest concerning. wound unlikely etiology of patients critically ill condition no indication for amputation discussed in detail with patients PCP. Appreciate other consultants input thank you Tuan Luis Jun 30, 2018 12:28
--- NOTE | 2018-06-30 12:30 | General Progress Note ---
Assessment/Plan Problem List: (1) Encephalopathy acute ICD Codes: G93.40 - Encephalopathy, unspecified SNOMED: 75217888, [id number] Status: unchanged Assessment/Plan the pt lacks capacity to refuse medications the pt lacks capacity to leave ama haldol prn soft restraints as needed Subjective Neurologic/Psychiatric: Reports: anxiety, depressed Allergies: Coded Allergies: BENAZEPRIL (Verified Allergy, Unknown, 06/12/18) CODEINE (Verified Allergy, Unknown, 06/12/18) INSULIN ASPART (Verified Allergy, Unknown, 06/12/18) INSULIN DETEMIR (Verified Allergy, Unknown, 06/12/18) OPIOIDS - MORPHINE ANALOGUES (Verified Allergy, Unknown, 06/12/18) Subjective the pt is waxing and waning and gets agitated at times Objective Last 24 Hour Vital Signs Date Time Temp Pulse Resp B/P (MAP) Pulse Ox O2 Delivery O2 Flow Rate FiO2 06/30/18 11:30 78 13 118/54 (75) 99 06/30/18 11:00 80 13 125/62 (83) 99 06/30/18 10:30 77 13 118/60 (79) 99 06/30/18 10:00 78 13 128/55 (79) 99 06/30/18 09:30 77 11 122/50 (74) 99 06/30/18 09:00 79 12 132/53 (79) 99 06/30/18 08:30 75 12 145/62 (89) 99 06/30/18 08:00 Nasal Cannula 2.0 06/30/18 08:00 75 06/30/18 08:00 76 14 140/74 (96) 98 06/30/18 07:30 97.7 75 14 112/45 (67) 95 06/30/18 07:00 76 14 117/43 (67) 95 06/30/18 06:30 75 14 116/53 (74) 95 06/30/18 06:00 74 15 139/58 (85) 97 06/30/18 05:30 76 15 129/61 (83) 97 06/30/18 05:00 75 14 133/69 (90) 98 06/30/18 04:30 75 14 128/35 (66) 99 06/30/18 04:00 Nasal Cannula 2.0 06/30/18 04:00 97.9 76 16 134/65 (88) 100 06/30/18 04:00 76 06/30/18 03:30 75 16 131/65 (87) 100 06/30/18 03:00 73 11 110/54 (72) 98 06/30/18 02:30 75 11 109/49 (69) 99 06/30/18 02:00 79 11 114/53 (73) 99 06/30/18 01:30 81 14 146/64 (91) 99 06/30/18 01:00 81 15 134/76 (95) 99 06/30/18 00:30 81 16 125/72 (89) 99 06/30/18 00:00 81 06/30/18 00:00 Nasal Cannula 2.0 06/30/18 00:00 82 14 132/78 (96) 100 06/29/18 23:30 97.9 82 15 120/59 (79) 99 06/29/18 23:00 82 15 120/82 (95) 99 06/29/18 22:30 90 15 128/49 (75) 99 06/29/18 22:00 90 15 128/49 (75) 99 06/29/18 21:30 84 15 132/41 (71) 99 06/29/18 21:00 90 15 128/49 (75) 99 06/29/18 20:30 92 14 128/51 (76) 98 06/29/18 20:00 Nasal Cannula 2.0 06/29/18 20:00 93 18 136/52 (80) 98 06/29/18 20:00 93 06/29/18 19:43 127/50 06/29/18 19:30 97.9 89 13 127/20 (55) 98 18 19:00 85 13 106/20 (48) 98 18 18:30 85 13 104/20 (48) 98 18 18:00 85 13 110/20 (50) 98 18 17:30 88 13 116/20 (52) 98 18 17:00 80 13 105/15 (45) 98 06/29/18 16:30 75 13 100/15 (43) 98 06/29/18 16:00 83 06/29/18 16:00 Nasal Cannula 2.0 06/29/18 16:00 97.9 82 11 95/23 (47) 97 06/29/18 15:30 80 13 93/15 (41) 98 06/29/18 15:00 79 13 92/15 (40) 98 06/29/18 14:30 80 13 99/15 (43) 98 06/29/18 14:00 82 13 106/17 (46) 98 06/29/18 13:30 80 13 109/15 (46) 98 06/29/18 13:00 85 13 110/15 (46) 98 06/29/18 12:30 80 13 115/20 (51) 98 Intake and Output 06/29/18 06/30/18 18:59 06:59 Intake Total 496.45 ml 174.076 ml Output Total 0 ml 0 ml Balance 496.45 ml 174.076 ml IV Total 496.45 ml 174.076 ml Output Urine Total 0 ml 0 ml Laboratory Tests 06/29/18 21:43: Arterial Blood pH 7.203*L, Arterial Blood Partial Pressure CO2 47.9H, Arterial Blood Partial Pressure O2 79.1, Arterial Blood HCO3 18.4L, Arterial Blood Oxygen Saturation 94.2L, Arterial Blood Base Excess -9.3*L, Nicola Test Positive 06/30/18 04:20: Sodium Level 130L, Potassium Level 5.3H, Chloride Level 99, Carbon Dioxide Level 19L, Anion Gap 12, Blood Urea Nitrogen 67H, Creatinine 6.4H, Estimat Glomerular Filtration Rate 7.9, Glucose Level 56L, Calcium Level 8.3L, Phosphorus Level 6.2H, Troponin I 0.180H, Albumin 1.7L, Amylase Level 29, Lipase 49L 06/30/18 08:05: Arterial Blood pH 7.307L, Arterial Blood Partial Pressure CO2 48.2H, Arterial Blood Partial Pressure O2 88.2, Arterial Blood HCO3 23.6, Arterial Blood Oxygen Saturation 95.9, Arterial Blood Base Excess -2.9L, Nicola Test Positive Height (Feet): 5 Height (Inches): 6.00 Weight (Pounds): 239 General Appearance: alert, confused, mild distress, agitated Abelardo Yadav MD Jun 30, 2018 12:30
[2018-06-30] MEDS: DOPamine 400mg/250ml 250 ML IV SCH (14:00)
[2018-06-30] MEDS: Meropenem 500 MG in NS 55 ML IVPB SCH (14:00)
--- NOTE | 2018-06-30 14:00 | NUR ---
NURSE NOTES: Patient alert and oriented x3. Denies pain or discomfort. Asked for television to be on. Stable, no new orders. will continue plan of care.
--- NOTE | 2018-06-30 14:05 | NUR ---
NURSE NOTES:WOUND CARE NOTES:Received call from nurse on unit regarding placing NWPT. Pt seen along with nurse on unit .Wound bed viable with small loose hanging non-viable tissue which was removed.Wound cleansed with Saline .Cavilon applied to borders then draped with transparent drsg . Granulofoam packing placed in wound ,then bridged to sylvester L tibia.Per nurse on unit orders for lowest NPWT setting.NPWT setting initiated at 75mm/Hg to continuous suction. Abd padding placed under R heel and L foot wrapped with kerlix. L heel off-loaded with pillow. Pt noted to have MASD buttocks ,perineum and medial aspects of both thighs.Erythema with denudement noted .Triad paste applied to affected areas. Pt has support surface pressure reduction mattress on bed and positioned with pillows.
--- NOTE | 2018-06-30 14:13 | Brief Operative Note ---
Immediate Post Operative Note Operative Note Chief Complaint: SOB Pre-op Diagnosis: pleural effusion Post-op Diagnosis: same as pre-op Surgeon: Aixa ACOSTA Anesthesia: local Specimen: yes - 400 ml bloody fluid Complications: none Fluids: nonr Implant(s) used?: No Sebastian Acosta MD Jun 30, 2018 14:13
--- NOTE | 2018-06-30 14:45 | Diagnostic Imaging Report ---
Indication: Post thoracentesis Technique: One view of the chest Comparison: 06/28/2018 Findings: There is interim reexpansion of a small portion of the previously completely collapsed left lung, status post low-volume (400 mL) thoracentesis. Large pleural effusion nonetheless persists. No pneumothorax. Large right pleural effusion persists. Interstitial congestive changes on the right persist. Left arm midline is again demonstrated Impression: Reexpansion of a small portion of previously completely atelectatic left lung, status post thoracentesis resulting in partial evacuation of large left pleural effusion. No radiographically evident complication Other stable findings as described, including large right pleural effusion
--- NOTE | 2018-06-30 15:31 | Diagnostic Imaging Report ---
Indications: Pleural effusion Technique: Ultrasound used to localize optimal puncture site. Sterile prepping and draping left chest. Local anesthesia with 1% lidocaine. Under real-time ultrasound guidance, puncture pleural space using thoracentesis needle. Stylet removed. Catheter placed to vacuum bottle suction. Total 400 milliliters of bloody fluid aspirated. Patient tolerated procedure well, without immediate complication. Findings: Followup sonography demonstrates large amount of residual pleural fluid Impression: Successful ultrasound-guided thoracentesis, yielding 400 milliliters of fluid and resulting in incomplete evacuation of the pleural fluid. Pleural fluid may therefore be loculated
--- NOTE | 2018-06-30 16:00 | NUR ---
NURSE NOTES: TUrned and repositioned. BS within normal limits. No distress noted. VSS stable. Dopamine at 2 mcg/hr. Will continue to monitor patient.
--- NOTE | 2018-06-30 18:00 | NUR ---
NURSE NOTES: Patient turned and repositioned. Tolerated dialysis well. 2 L output. No new orders. Will continue plan of care.
--- NOTE | 2018-06-30 18:33 | Cardiology Progress Note ---
Assessment/Plan Assessment/Plan congestive heart failure, severe MR, right heart failure, edema, on dopamine, could be due to heart failure, continue support Subjective Subjective The patient is on IV dopamine, she is very lethargic Objective Last 24 Hour Vital Signs Date Time Temp Pulse Resp B/P (MAP) Pulse Ox O2 Delivery O2 Flow Rate FiO2 06/30/18 18:00 72 17 118/45 (69) 99 06/30/18 17:30 70 17 128/50 (76) 99 06/30/18 17:00 75 16 125/55 (78) 98 06/30/18 16:30 77 13 122/54 (76) 99 06/30/18 16:00 79 06/30/18 16:00 98.4 74 15 127/53 (77) 99 06/30/18 16:00 Nasal Cannula 2.0 06/30/18 15:30 79 13 134/54 (80) 99 06/30/18 15:00 70 14 122/55 (77) 99 06/30/18 14:30 78 17 125/58 (80) 99 06/30/18 14:00 72 17 114/55 (74) 99 06/30/18 13:30 74 17 118/50 (72) 99 06/30/18 13:00 78 16 115/48 (70) 99 06/30/18 12:30 81 15 110/44 (66) 99 06/30/18 12:00 98.8 82 13 112/45 (67) 99 06/30/18 12:00 74 06/30/18 12:00 Nasal Cannula 2.0 06/30/18 11:30 78 13 118/54 (75) 99 06/30/18 11:00 80 13 125/62 (83) 99 06/30/18 10:30 77 13 118/60 (79) 99 06/30/18 10:00 78 13 128/55 (79) 99 06/30/18 09:30 77 11 122/50 (74) 99 06/30/18 09:00 79 12 132/53 (79) 99 06/30/18 08:30 75 12 145/62 (89) 99 06/30/18 08:00 Nasal Cannula 2.0 06/30/18 08:00 75 06/30/18 08:00 76 14 140/74 (96) 98 06/30/18 07:30 97.7 75 14 112/45 (67) 95 06/30/18 07:00 76 14 117/43 (67) 95 06/30/18 06:30 75 14 116/53 (74) 95 06/30/18 06:00 74 15 139/58 (85) 97 06/30/18 05:30 76 15 129/61 (83) 97 06/30/18 05:00 75 14 133/69 (90) 98 06/30/18 04:30 75 14 128/35 (66) 99 06/30/18 04:00 Nasal Cannula 2.0 06/30/18 04:00 97.9 76 16 134/65 (88) 100 06/30/18 04:00 76 06/30/18 03:30 75 16 131/65 (87) 100 06/30/18 03:00 73 11 110/54 (72) 98 06/30/18 02:30 75 11 109/49 (69) 99 06/30/18 02:00 79 11 114/53 (73) 99 06/30/18 01:30 81 14 146/64 (91) 99 06/30/18 01:00 81 15 134/76 (95) 99 06/30/18 00:30 81 16 125/72 (89) 99 06/30/18 00:00 81 06/30/18 00:00 Nasal Cannula 2.0 06/30/18 00:00 82 14 132/78 (96) 100 06/29/18 23:30 97.9 82 15 120/59 (79) 99 06/29/18 23:00 82 15 120/82 (95) 99 06/29/18 22:30 90 15 128/49 (75) 99 06/29/18 22:00 90 15 128/49 (75) 99 06/29/18 21:30 84 15 132/41 (71) 99 06/29/18 21:00 90 15 128/49 (75) 99 06/29/18 20:30 92 14 128/51 (76) 98 06/29/18 20:00 Nasal Cannula 2.0 06/29/18 20:00 93 18 136/52 (80) 98 06/29/18 20:00 93 06/29/18 19:43 127/50 06/29/18 19:30 97.9 89 13 127/20 (55) 98 06/29/18 19:00 85 13 106/20 (48) 98 General Appearance: lethargic EENT: other Neck: JVD - high Rhythm: NSR Cardiovascular: regular rhythm, systolic murmur, gallop/S3 Respiratory/Chest: crackles/rales, rhonchi - bilaterally Abdomen: distended Extremities: other - dressing left heel Neurologic: unresponsiveness Intake and Output 06/29/18 06/30/18 19:00 07:00 Intake Total 488.353 ml 170.028 ml Output Total 0 ml 0 ml Balance 488.353 ml 170.028 ml IV Total 488.353 ml 170.028 ml Output Urine Total 0 ml 0 ml Laboratory Tests Test 06/29/18 21:43 06/30/18 04:20 06/30/18 08:05 06/30/18 12:20 Arterial Blood pH 7.203 (7.350-7.450) 7.307 (7.350-7.450) Arterial Blood Partial Pressure CO2 47.9 mmHg (35.0-45.0) H 48.2 mmHg (35.0-45.0) H Arterial Blood Partial Pressure O2 79.1 mmHg (75.0-100.0) 88.2 mmHg (75.0-100.0) Arterial Blood HCO3 18.4 mmol/L (22.0-26.0) L 23.6 mmol/L (22.0-26.0) Arterial Blood Oxygen Saturation 94.2 % (95-100) L 95.9 % (95-100) Arterial Blood Base Excess -9.3 (-2-2) *L -2.9 (-2-2) L Nicola Test Positive Positive Sodium Level 130 MMOL/L (136-145) L Potassium Level 5.3 MMOL/L (3.5-5.1) H Chloride Level 99 MMOL/L (98-107) Carbon Dioxide Level 19 MMOL/L (21-32) L Anion Gap 12 mmol/L (5-15) Blood Urea Nitrogen 67 mg/dL (7-18) H Creatinine 6.4 MG/DL (0.55-1.30) H Estimat Glomerular Filtration Rate 7.9 mL/min (>60) Glucose Level 56 MG/DL (74-106) L Calcium Level 8.3 MG/DL (8.5-10.1) L Phosphorus Level 6.2 MG/DL (2.5-4.9) H Troponin I 0.180 ng/mL (0.000-0.056) Albumin 1.7 G/DL (3.4-5.0) L Amylase Level 29 U/L (25-115) Lipase 49 U/L (73-393) L Body Fluid Source Thoracentesis Body Fluid Volume 21 mL Body Fluid Appearance Bloody (Clear) Body Fluid RBC Pending Body Fluid Total Nucleated Cells Pending Body Fluid Polynuclear WBCs (%) Pending Body Fluid Mononuclear WBCs (%) Pending Body Fluid Mesothelial Cells (%) Pending Clarisse Daley MD Jun 30, 2018 18:33
--- NOTE | 2018-06-30 19:27 | NUR ---
HAND-OFF: Report given to Lizbet RN using SBAR. VSS. No distress noted.
--- NOTE | 2018-06-30 19:27 | NUR ---
NURSE NOTES: Received bedside report from CHAPIS Sepulveda.Patient stable,lethargic,confused,no s/s of pain,no respiratory distress noted,SR on lunchroom monitor,tolerated N/C 2L/min St O2 95-98%,BS in all quadrants,anuric d/t dialysis --.Today dialysis done 1 L out,scheduled for dialysis on Tuesday07/01/18,RADHA midline running with D10 1/2 NS @ 30 ml/hr asymptomatic,intact,Dopamine drips 2 mcg/hr,Thoracentesis done on Left lung and 400 ml out,bed secured in a low safety position,call light within a reaach,will continue to monitor and follow POC
[2018-06-30] MEDS: Dyna-Hex 2% Top Sol 2oz TOPIC SCH (20:44)
[2018-06-30] MEDS ORDERED: Vancomycin 1gm/D5W 275ml IVPB SCH ×2 (21:00)
--- NOTE | 2018-06-30 22:00 | NUR ---
NURSE NOTES: No c/o pain,V/S WNL,no respiratory distress noted,pt repositioned,mouth care provided.
[2018-07-01] VITALS (48 sets, daily range): BP systolic 63–141; BP diastolic 16–86
--- NOTE | 2018-07-01 | NUR ---
NURSE NOTES: Patient stable,ate 1 cup of jello,and apple sauce.No s/s of aspiration noted.Turned and repositioned.
[2018-07-01] MEDS: Acetaminophen 500mg (ES) tab ORAL PRN (00:32)
--- NOTE | 2018-07-01 01:57 | NUR ---
NURSE NOTES: Patient clean and dry,mouth care done,repositioned,no c/o pain,pt comfortable in a bed,sleeping.
--- NOTE | 2018-07-01 04:00 | NUR ---
NURSE NOTES: Pt. stable,turned and repositioned,suctioned frequently.
--- NOTE | 2018-07-01 06:00 | NUR ---
NURSE NOTES: Patient stable,sleeping,no c/o pain,no respiratory distress noted.
[2018-07-01] MEDS: NovoLOG Insulin Flexpen SUBQ SCH ×4 (06:13→21:00)
--- NOTE | 2018-07-01 07:17 | NUR ---
HAND-OFF: Report given to CHAPIS Jay.Patient stable.
--- NOTE | 2018-07-01 07:36 | NUR ---
NURSE NOTES: Report received from aMry NATION. Pt sleepy but alert and oriented x 4. Pt connected to facilities director to sinus rhythm. Pt on 2 L NC O2 saturating 98%. RADHA AV shunt noted and RADHA ML intact. D 10 1/2NS @ 30 cc/hr and Dopamine 2 mcg/min running. Safety measures in place with bed locked and in lowest position, side rails x2 up and bed alarm activated. Will continue to monitor and continue plan of care.
[2018-07-01] MEDS: Aspirin Baby 81mg ORAL SCH (08:57)
[2018-07-01] MEDS: Multivitamin w/Minerals tab ORAL SCH (08:57)
[2018-07-01] MEDS: Heparin 5000 units/ml inj SUBQ SCH ×2 (09:00→21:03)
[2018-07-01] MEDS ORDERED: Midazolam 2mg/2ml Inj IVP SCH (09:41)
[2018-07-01] MEDS ORDERED: fentaNYL 100 mcg/2 mL IV SCH (09:45)
[2018-07-01] MEDS ORDERED: Lidocaine HCl 2% Jelly 6ml Tube TOPIC SCH (09:45)
--- NOTE | 2018-07-01 10:16 | Critical Care Progress Note ---
Assessment/Plan Assessment/Plan IMPRESSION: 1. Respiratory failure, acute. 2. Evidence of hypercapnia. 3. Evidence of metabolic acidosis. 4. Evidence of pleural effusion. s/p tap 5. End-stage renal disease. 6. Elevated troponin. 7. Possible demand ischemia. 8. Severe protein-calorie malnutrition. 9. Hyponatremia. 10. Hyperkalemia. 11. Anemia. 12. Thrombocytopenia. 13. Mild coagulopathy. 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 15. mucous plugging PLAN bronchoscopy patient agreeable remains ill needs ICU CPT to continue respiratory care tap completed follow up fluid culture medications/laboratory data/nursing notes/ICU care reviewed in detail note reviewed and edited care discussed with RN and RT ICU time spent 40 minutes Critical Care - Subjective Interval Events: left lung with ongoing collapse d/w patient agreed to bronchoscopy Condition: critical EKG Rhythm: Sinus Rhythm I&O: Intake and Output 06/30/18 07/01/18 19:00 07:00 Intake Total 495.015 ml 725.000 ml Output Total 1000 ml 0 ml Balance -504.985 ml 725.000 ml Intake Oral 120 ml IV Total 495.015 ml 605.000 ml Output Urine Total 0 ml 0 ml Hemodialysis UF 1000 ml # Bowel Movements 2 Critical Care - Objective Last 24 Hour Vital Signs Date Time Temp Pulse Resp B/P (MAP) Pulse Ox O2 Delivery O2 Flow Rate FiO2 07/01/18 08:00 Nasal Cannula 2.0 07/01/18 07:23 99 Nasal Cannula 2.0 28 07/01/18 07:23 Nasal Cannula 2.0 28 07/01/18 07:00 97.5 71 14 118/47 (70) 99 07/01/18 06:30 97.5 73 10 129/46 (73) 99 07/01/18 06:00 97.4 74 12 128/47 (74) 99 07/01/18 05:30 97.3 75 13 134/51 (78) 98 07/01/18 05:00 97.5 75 21 129/52 (77) 98 07/01/18 04:30 97.5 72 12 119/53 (75) 99 07/01/18 04:07 74 07/01/18 04:00 Nasal Cannula 2.0 07/01/18 04:00 97.3 74 13 118/48 (71) 98 07/01/18 03:30 97.6 74 10 113/44 (67) 98 07/01/18 03:00 97.8 75 14 115/55 (75) 99 07/01/18 02:30 97.3 74 12 129/46 (73) 98 07/01/18 02:00 97.5 76 16 127/47 (73) 99 07/01/18 01:30 97.3 77 21 114/56 (75) 99 07/01/18 01:00 98.0 74 16 134/60 (84) 98 07/01/18 00:30 97.4 76 18 110/57 (74) 98 07/01/18 00:00 Nasal Cannula 2.0 07/01/18 00:00 97.8 77 13 110/57 (74) 99 07/01/18 00:00 77 06/30/18 23:30 97.9 68 16 108/56 (73) 98 06/30/18 23:00 97.5 72 16 125/58 (80) 98 06/30/18 22:30 97.6 76 18 122/51 (74) 98 06/30/18 22:00 78 18 120/50 (73) 98 06/30/18 21:30 78 18 114/47 (69) 98 06/30/18 21:00 78 17 117/46 (69) 98 06/30/18 20:30 79 16 133/46 (75) 98 06/30/18 20:00 97.8 78 17 125/54 (77) 100 06/30/18 20:00 Nasal Cannula 2.0 06/30/18 19:50 78 06/30/18 19:30 78 17 137/60 (85) 100 06/30/18 19:00 78 17 118/50 (72) 100 06/30/18 18:30 71 17 110/44 (66) 99 06/30/18 18:00 72 17 118/45 (69) 99 06/30/18 17:30 70 17 128/50 (76) 99 06/30/18 17:00 75 16 125/55 (78) 98 06/30/18 16:30 77 13 122/54 (76) 99 06/30/18 16:00 79 06/30/18 16:00 98.4 74 15 127/53 (77) 99 06/30/18 16:00 Nasal Cannula 2.0 06/30/18 15:30 79 13 134/54 (80) 99 06/30/18 15:00 70 14 122/55 (77) 99 06/30/18 14:30 78 17 125/58 (80) 99 06/30/18 14:00 72 17 114/55 (74) 99 06/30/18 14:00 99/48 06/30/18 13:30 74 17 118/50 (72) 99 06/30/18 13:00 78 16 115/48 (70) 99 06/30/18 12:30 81 15 110/44 (66) 99 06/30/18 12:00 98.8 82 13 112/45 (67) 99 06/30/18 12:00 74 06/30/18 12:00 Nasal Cannula 2.0 06/30/18 11:30 78 13 118/54 (75) 99 06/30/18 11:00 80 13 125/62 (83) 99 06/30/18 10:30 77 13 118/60 (79) 99 Labs: Labs Test 06/29/18 08:38 06/29/18 21:43 06/30/18 04:20 06/30/18 08:05 White Blood Count 5.8 K/UL (4.8-10.8) Red Blood Count 4.18 M/UL (4.20-5.40) Hemoglobin 11.3 G/DL (12.0-16.0) Hematocrit 36.5 % (37.0-47.0) Mean Corpuscular Volume 87 FL (80-99) Mean Corpuscular Hemoglobin 27.0 PG (27.0-31.0) Mean Corpuscular Hemoglobin Concent 30.9 G/DL (32.0-36.0) Red Cell Distribution Width 15.1 % (11.6-14.8) Platelet Count 129 K/UL (150-450) Mean Platelet Volume 9.7 FL (6.5-10.1) Neutrophils (%) (Auto) 72.0 % (45.0-75.0) Lymphocytes (%) (Auto) 15.9 % (20.0-45.0) Monocytes (%) (Auto) 8.5 % (1.0-10.0) Eosinophils (%) (Auto) 2.6 % (0.0-3.0) Basophils (%) (Auto) 1.1 % (0.0-2.0) Prothrombin Time 12.2 SEC (9.30-11.50) Prothromb Time International Ratio 1.2 (0.9-1.1) Activated Partial Thromboplast Time 44 SEC (23-33) Sodium Level 129 MMOL/L (136-145) 130 MMOL/L (136-145) Potassium Level 4.9 MMOL/L (3.5-5.1) 5.3 MMOL/L (3.5-5.1) Chloride Level 97 MMOL/L (98-107) 99 MMOL/L (98-107) Carbon Dioxide Level 19 MMOL/L (21-32) 19 MMOL/L (21-32) Anion Gap 13 mmol/L (5-15) 12 mmol/L (5-15) Blood Urea Nitrogen 63 mg/dL (7-18) 67 mg/dL (7-18) Creatinine 6.4 MG/DL (0.55-1.30) 6.4 MG/DL (0.55-1.30) Estimat Glomerular Filtration Rate 7.9 mL/min (>60) 7.9 mL/min (>60) Glucose Level 78 MG/DL (74-106) 56 MG/DL (74-106) Calcium Level 8.4 MG/DL (8.5-10.1) 8.3 MG/DL (8.5-10.1) Arterial Blood pH 7.203 (7.350-7.450) 7.307 (7.350-7.450) Arterial Blood Partial Pressure CO2 47.9 mmHg (35.0-45.0) 48.2 mmHg (35.0-45.0) Arterial Blood Partial Pressure O2 79.1 mmHg (75.0-100.0) 88.2 mmHg (75.0-100.0) Arterial Blood HCO3 18.4 mmol/L (22.0-26.0) 23.6 mmol/L (22.0-26.0) Arterial Blood Oxygen Saturation 94.2 % (95-100) 95.9 % (95-100) Arterial Blood Base Excess -9.3 (-2-2) -2.9 (-2-2) Nicola Test Positive Positive Phosphorus Level 6.2 MG/DL (2.5-4.9) Troponin I 0.180 ng/mL (0.000-0.056) Albumin 1.7 G/DL (3.4-5.0) Amylase Level 29 U/L (25-115) Lipase 49 U/L (73-393) Test 06/30/18 12:20 06/30/18 18:55 Body Fluid Source Thoracentesis Body Fluid Volume 21 mL Body Fluid Appearance Bloody (Clear) Body Fluid RBC 15322 /CUMM Body Fluid Total Nucleated Cells 400 /CUMM Body Fluid Polynuclear WBCs (%) 2 % Body Fluid Mononuclear WBCs (%) 98 % Body Fluid Mesothelial Cells (%) 0 % Random Vancomycin Level 21.8 ug/mL Objective: GENERAL: A well-developed female chronically ill. HEENT: Overall negative. NECK: Supple. No jugular venous distention. LUNGS: Reduced breath sounds noted specifically on the left side. with minimal improvement CARDIAC: Normal S1 and S2. Regular rate and rhythm. Currently, slightly bradycardic. ABDOMEN: Soft, nontender, and nondistended. EXTREMITIES: No cyanosis or clubbing. The patient has a right above knee stump, left heel with ulcers. NEUROLOGIC: oriented, appears to be grossly nonfocal. Micro: Microbiology Date/Time Source Procedure Growth Status 06/30/18 12:20 Body Fluid Gram Stain - Final Resulted 06/30/18 12:20 Body Fluid Body Fluid Culture - Preliminary NO GROWTH Resulted Accucheck: 83 Gustavo Rolon MD Jul 01, 2018 10:16
--- NOTE | 2018-07-01 10:21 | Emergency Room Report ---
History of Present Illness General Chief Complaint: General Complaint Source: Medical Record, PMD Present Illness Allergies: Coded Allergies: BENAZEPRIL (Verified Allergy, Unknown, 06/12/18) CODEINE (Verified Allergy, Unknown, 06/12/18) INSULIN ASPART (Verified Allergy, Unknown, 06/12/18) INSULIN DETEMIR (Verified Allergy, Unknown, 06/12/18) OPIOIDS - MORPHINE ANALOGUES (Verified Allergy, Unknown, 06/12/18) Patient History Last Menstrual Period: n/a Now: No Nursing Documentation-PMH Hx Hypertension: Yes Hx COPD: No - anemia Hx Diabetes: Yes Hx Cancer: No Hx Neurological Problems: No Physical Exam Vital Signs Date Time Temp Pulse Resp B/P (MAP) Pulse Ox O2 Delivery O2 Flow Rate FiO2 06/27/18 08:00 57 06/27/18 08:00 98.3 20 121/62 (81) 97 06/27/18 08:00 Nasal Cannula 2.0 06/27/18 19:53 28 Procedures Intubation Intubation : Consent: Emergent Time of Intubation: 10:15 Intubation Method: orotracheal Tube Size (cm): 7.5 Medications: Other - Patient had recently been medicated Breath Sounds after Intubation: equal Intubation Complications: no complications Post Intubation Xray: Yes Progress/Xray Impression: bloody secretions to ett Attempts: One Patient Tolerated: Well Complications: None Medical Decision Making Diagnostic Impression: Primary Impression: NSTEMI (non-ST elevated myocardial infarction) Additional Impressions: Anemia of chronic disease Bilateral pleural effusion Last Vital Signs Date Time Temp Pulse Resp B/P (MAP) Pulse Ox O2 Delivery O2 Flow Rate FiO2 07/01/18 08:00 Nasal Cannula 2.0 07/01/18 07:23 99 28 07/01/18 07:00 97.5 71 14 118/47 (70) Disposition: ADMITTED INPATIENT Condition: Serious Referrals: Brenda Fuller MD (PCP) Jerrell Baxter MD Jul 01, 2018 10:21
--- NOTE | 2018-07-01 10:29 | Nephrology Progress Note ---
Assessment/Plan Plan MOF Intubated. B Pleural effusion Anasarca Try daily HD. Subjective Subjective Events noted. s/p Lt. thoracentesis. A trial of Bronchoscopy ended up in an emergent intubation! Objective Objective Last 24 Hour Vital Signs Date Time Temp Pulse Resp B/P (MAP) Pulse Ox O2 Delivery O2 Flow Rate FiO2 07/01/18 08:00 Nasal Cannula 2.0 07/01/18 07:23 99 Nasal Cannula 2.0 28 07/01/18 07:23 Nasal Cannula 2.0 28 07/01/18 07:00 97.5 71 14 118/47 (70) 99 07/01/18 06:30 97.5 73 10 129/46 (73) 99 07/01/18 06:00 97.4 74 12 128/47 (74) 99 07/01/18 05:30 97.3 75 13 134/51 (78) 98 07/01/18 05:00 97.5 75 21 129/52 (77) 98 07/01/18 04:30 97.5 72 12 119/53 (75) 99 07/01/18 04:07 74 07/01/18 04:00 Nasal Cannula 2.0 07/01/18 04:00 97.3 74 13 118/48 (71) 98 07/01/18 03:30 97.6 74 10 113/44 (67) 98 07/01/18 03:00 97.8 75 14 115/55 (75) 99 07/01/18 02:30 97.3 74 12 129/46 (73) 98 07/01/18 02:00 97.5 76 16 127/47 (73) 99 07/01/18 01:30 97.3 77 21 114/56 (75) 99 07/01/18 01:00 98.0 74 16 134/60 (84) 98 07/01/18 00:30 97.4 76 18 110/57 (74) 98 07/01/18 00:00 Nasal Cannula 2.0 07/01/18 00:00 97.8 77 13 110/57 (74) 99 07/01/18 00:00 77 06/30/18 23:30 97.9 68 16 108/56 (73) 98 06/30/18 23:00 97.5 72 16 125/58 (80) 98 06/30/18 22:30 97.6 76 18 122/51 (74) 98 06/30/18 22:00 78 18 120/50 (73) 98 06/30/18 21:30 78 18 114/47 (69) 98 06/30/18 21:00 78 17 117/46 (69) 98 06/30/18 20:30 79 16 133/46 (75) 98 06/30/18 20:00 97.8 78 17 125/54 (77) 100 06/30/18 20:00 Nasal Cannula 2.0 06/30/18 19:50 78 06/30/18 19:30 78 17 137/60 (85) 100 06/30/18 19:00 78 17 118/50 (72) 100 06/30/18 18:30 71 17 110/44 (66) 99 06/30/18 18:00 72 17 118/45 (69) 99 06/30/18 17:30 70 17 128/50 (76) 99 06/30/18 17:00 75 16 125/55 (78) 98 06/30/18 16:30 77 13 122/54 (76) 99 06/30/18 16:00 79 06/30/18 16:00 98.4 74 15 127/53 (77) 99 06/30/18 16:00 Nasal Cannula 2.0 06/30/18 15:30 79 13 134/54 (80) 99 06/30/18 15:00 70 14 122/55 (77) 99 06/30/18 14:30 78 17 125/58 (80) 99 06/30/18 14:00 72 17 114/55 (74) 99 06/30/18 14:00 99/48 06/30/18 13:30 74 17 118/50 (72) 99 06/30/18 13:00 78 16 115/48 (70) 99 06/30/18 12:30 81 15 110/44 (66) 99 06/30/18 12:00 98.8 82 13 112/45 (67) 99 06/30/18 12:00 74 06/30/18 12:00 Nasal Cannula 2.0 06/30/18 11:30 78 13 118/54 (75) 99 06/30/18 11:00 80 13 125/62 (83) 99 06/30/18 10:30 77 13 118/60 (79) 99 Intake and Output 06/30/18 07/01/18 18:59 06:59 Intake Total 477.160 ml 755.000 ml Output Total 1000 ml 0 ml Balance -522.840 ml 755.000 ml Intake Oral 120 ml IV Total 477.160 ml 635.000 ml Output Urine Total 0 ml 0 ml Hemodialysis UF 1000 ml # Bowel Movements 2 Laboratory Tests 06/30/18 12:20: Body Fluid Source Thoracentesis, Body Fluid Volume 21, Body Fluid Appearance Bloody, [place] [address], Body Fluid Total Nucleated Cells 400, Body Fluid Polynuclear WBCs (%) 2, Body Fluid Mononuclear WBCs (%) 98, Body Fluid Mesothelial Cells (%) 0 06/30/18 18:55: Random Vancomycin Level 21.8 Height (Feet): 5 Height (Inches): 6.00 Weight (Pounds): 236 Objective Intubated + on vent Blind Cv RR Lungs No air movement L Lung! Abd SNT. BS + E Rt AKA stump clean. Lt. heel ulcer. Lethargic but easily arousable Brenda Fuller MD Jul 01, 2018 10:28
--- NOTE | 2018-07-01 10:50 | NUR ---
NURSE NOTES: Dr Rolon here to do bronchoscopy. Pt given versed and fentanyl IV. O2 saturation went to as low as 29%. Code blue called. Pt given 1 amp atropine then 1 amp epi. Pt ambu bagged. ER doc arrived to intubate pt. Pt orally intubated, VSS. Pt put on bilateral soft wrist restraints because she was attempting to pull out ETT. Will continue to monitor.
--- NOTE | 2018-07-01 10:51 | Diagnostic Imaging Report ---
EXAM: XR Chest, 1 View CLINICAL HISTORY: F/U TECHNIQUE: Frontal view of the chest. COMPARISON: Chest x-rays dated 06/30/18 FINDINGS: Lungs: Pulmonary vascular congestion and/or pulmonary edema, not significantly changed. Persistent atelectasis versus consolidation in the lung bases, left greater than right. Pleural space: No significant change in appearance of bilateral moderate to large pleural effusions. Heart: Cardiac silhouette is partially obscured. Mediastinum: Unremarkable. Bones/joints: Unremarkable. Vasculature: Atherosclerotic calcifications are noted within the aortic arch. Tubes, lines and devices: Interval placement of an endotracheal tube, which is located at the level of the kellen, pointing towards the right mainstem bronchus. Recommend retracting 2-3 cm. EKG leads overlie the thorax. IMPRESSION: 1. Interval placement of an endotracheal tube, which is located at the level of the kellen, pointing towards the right mainstem bronchus. Recommend retracting 2-3 cm. 2. No significant change in appearance of bilateral moderate to large pleural effusions. 3. Pulmonary vascular congestion and/or pulmonary edema, not significantly changed. 4. Persistent atelectasis versus consolidation in the lung bases, left greater than right. Critical Value Communications 07/01/18 10:56 Verify Receipt with Nurse Verified receipt with [place] in ICU for CHAPIS Vasquez on 07/01 10:55 (-08:00) 07/01/18 10:57 Verify Receipt Verified receipt with KAR Coleman in ICU for CHAPIS Vasquez on 07/01 10:57 (-08:00)
--- NOTE | 2018-07-01 11:36 | Diagnostic Imaging Report ---
EXAM: XR Chest, 1 View CLINICAL HISTORY: FAINT TECHNIQUE: Frontal view of the chest. COMPARISON: Chest x-ray performed earlier on 07/01/18 at 10:22 AM FINDINGS: Lungs: No significant change in pulmonary vascular congestion versus pulmonary edema with bibasilar consolidation. Possible new infiltrate versus atelectasis in the right upper lung. Pleural space: No significant change in bilateral moderate to large pleural effusions. Heart: Cardiac silhouette is partially obscured. Mediastinum: Unremarkable. Bones/joints: Unremarkable. Tubes, lines and devices: Interval mild retraction of the endotracheal tube, however tip is approximately 7 mm from the kellen. EKG leads overlie the thorax. IMPRESSION: 1. Interval mild retraction of the endotracheal tube, however tip is approximately 7 mm from the kellen. Further retraction of approximately 2 cm is recommended. 2. Possible new patchy infiltrate versus atelectasis in the right upper lung. Otherwise no significant interval change compared to the prior chest x-ray, with bilateral moderate to large pleural effusions, pulmonary vascular congestion versus pulmonary edema, and bibasilar consolidation.
[2018-07-01] MEDS: DOPamine 400mg/250ml 250 ML IV SCH (11:41)
--- NOTE | 2018-07-01 12:29 | NUR ---
RESPIRATORY NOTE: during bronchoscopy, pt started to desaturate and ended with pt being intubated. ETT used 7.5 and placed 23cm at the lip after ett being withdrawn 1cm. vent settings are as followed and will cont to monitor pt.
--- NOTE | 2018-07-01 12:43 | Infectious Diseases Prog Note ---
Assessment/Plan Assessment/Plan A; Calcaneal osteomyelitis DM ESRD on HD AMS PVD Diabetic retinopathy Mitral & Tricuspid regurgitation Elevated troponin Hypotension improving Pleural effusion s/p thoracentesis P; continue Meropenem & Vancomycin Remains hypotensive, may benefit from surgery & amputation Subjective ROS Limited/Unobtainable: Yes Respiratory: Reports: other - intubated this morning after desaturation during bronchoscopy Neurologic: Reports: confusion, other - on restraint Allergies: Coded Allergies: BENAZEPRIL (Verified Allergy, Unknown, 06/12/18) CODEINE (Verified Allergy, Unknown, 06/12/18) INSULIN ASPART (Verified Allergy, Unknown, 06/12/18) INSULIN DETEMIR (Verified Allergy, Unknown, 06/12/18) OPIOIDS - MORPHINE ANALOGUES (Verified Allergy, Unknown, 06/12/18) Objective Vital Signs Last 24 Hour Vital Signs Date Time Temp Pulse Resp B/P (MAP) Pulse Ox O2 Delivery O2 Flow Rate FiO2 07/01/18 12:00 112 07/01/18 11:41 107/38 07/01/18 10:36 92 15 Mechanical Ventilator 40 07/01/18 10:30 15 107/38 Mechanical Ventilator 2.0 40 07/01/18 10:30 85 107/38 (61) 100 07/01/18 10:27 102 15 40 07/01/18 10:00 128 63/33 (43) 100 07/01/18 09:30 74 133/63 (86) 99 07/01/18 09:00 75 133/54 (80) 99 07/01/18 08:30 74 129/50 (76) 98 07/01/18 08:00 Nasal Cannula 2.0 07/01/18 08:00 74 07/01/18 08:00 74 131/49 (76) 99 07/01/18 07:30 97.5 74 125/50 (75) 98 07/01/18 07:23 99 Nasal Cannula 2.0 28 07/01/18 07:23 Nasal Cannula 2.0 28 07/01/18 07:00 97.5 71 14 118/47 (70) 99 07/01/18 06:30 97.5 73 10 129/46 (73) 99 07/01/18 06:00 97.4 74 12 128/47 (74) 99 07/01/18 05:30 97.3 75 13 134/51 (78) 98 07/01/18 05:00 97.5 75 21 129/52 (77) 98 07/01/18 04:30 97.5 72 12 119/53 (75) 99 07/01/18 04:07 74 07/01/18 04:00 Nasal Cannula 2.0 07/01/18 04:00 97.3 74 13 118/48 (71) 98 07/01/18 03:30 97.6 74 10 113/44 (67) 98 07/01/18 03:00 97.8 75 14 115/55 (75) 99 07/01/18 02:30 97.3 74 12 129/46 (73) 98 07/01/18 02:00 97.5 76 16 127/47 (73) 99 07/01/18 01:30 97.3 77 21 114/56 (75) 99 07/01/18 01:00 98.0 74 16 134/60 (84) 98 07/01/18 00:30 97.4 76 18 110/57 (74) 98 07/01/18 00:00 Nasal Cannula 2.0 07/01/18 00:00 97.8 77 13 110/57 (74) 99 07/01/18 00:00 77 06/30/18 23:30 97.9 68 16 108/56 (73) 98 06/30/18 23:00 97.5 72 16 125/58 (80) 98 06/30/18 22:30 97.6 76 18 122/51 (74) 98 06/30/18 22:00 78 18 120/50 (73) 98 06/30/18 21:30 78 18 114/47 (69) 98 06/30/18 21:00 78 17 117/46 (69) 98 06/30/18 20:30 79 16 133/46 (75) 98 06/30/18 20:00 97.8 78 17 125/54 (77) 100 06/30/18 20:00 Nasal Cannula 2.0 06/30/18 19:50 78 06/30/18 19:30 78 17 137/60 (85) 100 06/30/18 19:00 78 17 118/50 (72) 100 06/30/18 18:30 71 17 110/44 (66) 99 06/30/18 18:00 72 17 118/45 (69) 99 06/30/18 17:30 70 17 128/50 (76) 99 06/30/18 17:00 75 16 125/55 (78) 98 06/30/18 16:30 77 13 122/54 (76) 99 06/30/18 16:00 79 06/30/18 16:00 98.4 74 15 127/53 (77) 99 06/30/18 16:00 Nasal Cannula 2.0 06/30/18 15:30 79 13 134/54 (80) 99 06/30/18 15:00 70 14 122/55 (77) 99 06/30/18 14:30 78 17 125/58 (80) 99 06/30/18 14:00 72 17 114/55 (74) 99 06/30/18 14:00 99/48 06/30/18 13:30 74 17 118/50 (72) 99 06/30/18 13:00 78 16 115/48 (70) 99 Height (Feet): 5 Height (Inches): 6.00 Weight (Pounds): 236 HEENT: other - R corneal opacity, on ventilator Respiratory/Chest: lungs clear, other - on ventilator Cardiovascular: tachycardia, other - Left arm PICC line Extremities: other - edema Neurologic/Psychiatric: disoriented Microbiology Date/Time Source Procedure Growth Status 06/30/18 12:20 Body Fluid Gram Stain - Final Resulted 06/30/18 12:20 Body Fluid Body Fluid Culture - Preliminary NO GROWTH Resulted Laboratory Tests Test 06/30/18 18:55 07/01/18 10:30 07/01/18 11:15 Random Vancomycin Level 21.8 ug/mL Triglycerides Level 23 MG/DL (30-150) L Arterial Blood pH 7.318 (7.350-7.450) Arterial Blood Partial Pressure CO2 41.2 mmHg (35.0-45.0) Arterial Blood Partial Pressure O2 104.5 mmHg (75.0-100.0) H Arterial Blood HCO3 20.2 mmol/L (22.0-26.0) L Arterial Blood Oxygen Saturation 97.3 % (95-100) Arterial Blood Base Excess -5.1 (-2-2) L Nicola Test Positive Current Medications Medications (Trade) Dose Ordered Sig/Andre Route PRN Reason Start Time Stop Time Status Last Admin Dose Admin Acetaminophen (Tylenol) 500 mg Q6H PRN ORAL Mild Pain/Temp > 100.5 06/28/18 20:00 07/28/18 19:59 07/01/18 00:32 Aspirin (ASA) 81 mg DAILY ORAL 06/29/18 09:00 07/13/18 08:59 07/01/18 08:57 Barium Sulfate (Readi-Cat 2) 450 ml NOW PRN ORAL Radiology Procedure 06/29/18 18:15 07/01/18 18:13 Chlorhexidine Gluconate (Fabiola-Hex 2%) 1 applic DAILY@2000 TOPIC 06/28/18 20:00 07/18/18 19:59 06/30/18 20:44 Collagenase (Santyl) 1 applic DAILY TOPIC 06/29/18 09:00 07/13/18 08:59 06/30/18 08:39 Dextrose (Dextrose 50%) 25 ml Q30M PRN IV Hypoglycemia 06/28/18 18:45 07/17/18 20:14 06/29/18 21:09 Dextrose (Dextrose 50%) 50 ml Q30M PRN IV Hypoglycemia 06/28/18 18:45 07/17/18 20:14 06/30/18 05:31 Dextrose/Sodium Chloride 1,000 ml @ 30 mls/hr Q24H IV 06/30/18 09:00 07/30/18 08:59 06/30/18 08:41 Dopamine HCl/ Dextrose 250 ml @ 0 mls/hr Q24H IV 06/28/18 18:45 07/28/18 18:44 07/01/18 11:41 Heparin Sodium (Porcine) (Heparin 5000 units/ml) 5,000 units EVERY 12 HOURS SUBQ 06/28/18 21:00 07/13/18 08:59 07/01/18 09:00 Heparin Sodium (Porcine) (Heparin Sod 1000 units/ml 10ml) 2,000 unit ONCE ONCE IV 07/02/18 10:45 07/02/18 10:46 Insulin Aspart (NovoLOG) BEFORE MEALS AND HS SUBQ 06/28/18 21:00 07/17/18 20:59 Lorazepam (Ativan 2mg/ml 1ml) 1 mg Q3H PRN IV For Anxiety 07/01/18 11:59 07/08/18 11:58 Meropenem 500 mg/ Sodium Chloride 55 ml @ 110 mls/hr Q24H IVPB 06/29/18 14:00 07/25/18 13:59 06/30/18 14:00 Pantoprazole (Protonix) 40 mg ACBREAKFAST ORAL 06/29/18 06:30 07/27/18 06:29 07/01/18 06:13 Propofol 100 ml @ 0 mls/hr Q24H IV 07/01/18 10:30 07/03/18 10:29 Sodium Chloride 1,000 ml @ 500 mls/hr Q2H PRN IVLG sbp<90 during hd 07/02/18 10:33 07/02/18 23:59 Vancomycin HCl (Vanco rx to dose) 1 ea DAILY PRN MISC Per rx protocol 06/29/18 08:15 07/29/18 08:14 Joe Melgar MD Jul 01, 2018 12:43
[2018-07-01] MEDS: Dextrose 10%/.45 SOD CHL 1,000 ML IV SCH (13:05)
[2018-07-01] MEDS: LORazepam Inj 2mg/ml 1ml IV PRN ×2 (13:10→17:15)
[2018-07-01] MEDS: Meropenem 500 MG in NS 55 ML IVPB SCH (14:37)
--- NOTE | 2018-07-01 14:38 | Cardiology Progress Note ---
Assessment/Plan Problem List: (1) Bilateral pleural effusion (2) Anemia of chronic disease (3) Peripheral vascular disease (4) CKD (chronic kidney disease) stage 4, GFR 15-29 ml/min (5) NSTEMI (non-ST elevated myocardial infarction) (6) DM2 (diabetes mellitus, type 2) Status: not improved Status Narrative Pt w/ desat/ respiratory failure today during bronchoscopy. Required intubation / mech ventilation. XR c/w vol overload - ?diastolic HF and possible pneumonia ( new R upper lung infiltrate) Mild troponin elevation on admission - down-trending, c/w w. small nonSTEMI. ECHO earlier this adm did not show wall motion abnl. LV EF nl. Assessment/Plan Continue fluid removal w/ HD Can dc dopamine,as pt normotensive. Weaning from vent as per pulmonary Check cultures. Empiric iv abx. Subjective ROS Limited/Unobtainable: Yes Subjective Cardiology for Dr. Daley Pt intubated after desat during bronchoscopy this am. currently awake, on vent. Responds w / nod/shaking head Objective Last 24 Hour Vital Signs Date Time Temp Pulse Resp B/P (MAP) Pulse Ox O2 Delivery O2 Flow Rate FiO2 07/01/18 13:35 106 15 30 07/01/18 13:00 65 12 93/25 (47) 99 07/01/18 12:30 97.3 115 15 125/80 (95) 100 07/01/18 12:00 114 105/86 (92) 100 07/01/18 12:00 112 07/01/18 12:00 Nasal Cannula 2.0 07/01/18 11:41 107/38 07/01/18 11:30 81 94/77 (83) 100 07/01/18 11:00 75 97/77 (84) 100 07/01/18 10:36 92 15 Mechanical Ventilator 40 07/01/18 10:30 40.0 07/01/18 10:30 15 107/38 Mechanical Ventilator 2.0 40 07/01/18 10:30 85 107/38 (61) 100 07/01/18 10:27 102 15 40 07/01/18 10:00 128 63/33 (43) 100 07/01/18 09:30 74 133/63 (86) 99 07/01/18 09:00 75 133/54 (80) 99 12/8/18 08:30 74 129/50 (76) 98 07/01/18 08:00 Nasal Cannula 2.0 07/01/18 08:00 74 07/01/18 08:00 74 131/49 (76) 99 07/01/18 07:30 97.5 74 125/50 (75) 98 07/01/18 07:23 99 Nasal Cannula 2.0 28 07/01/18 07:23 Nasal Cannula 2.0 28 07/01/18 07:00 97.5 71 14 118/47 (70) 99 07/01/18 06:30 97.5 73 10 129/46 (73) 99 07/01/18 06:00 97.4 74 12 128/47 (74) 99 07/01/18 05:30 97.3 75 13 134/51 (78) 98 07/01/18 05:00 97.5 75 21 129/52 (77) 98 07/01/18 04:30 97.5 72 12 119/53 (75) 99 07/01/18 04:07 74 07/01/18 04:00 Nasal Cannula 2.0 07/01/18 04:00 97.3 74 13 118/48 (71) 98 07/01/18 03:30 97.6 74 10 113/44 (67) 98 07/01/18 03:00 97.8 75 14 115/55 (75) 99 07/01/18 02:30 97.3 74 12 129/46 (73) 98 07/01/18 02:00 97.5 76 16 127/47 (73) 99 07/01/18 01:30 97.3 77 21 114/56 (75) 99 07/01/18 01:00 98.0 74 16 134/60 (84) 98 07/01/18 00:30 97.4 76 18 110/57 (74) 98 07/01/18 00:00 Nasal Cannula 2.0 07/01/18 00:00 97.8 77 13 110/57 (74) 99 07/01/18 00:00 77 06/30/18 23:30 97.9 68 16 108/56 (73) 98 06/30/18 23:00 97.5 72 16 125/58 (80) 98 06/30/18 22:30 97.6 76 18 122/51 (74) 98 06/30/18 22:00 78 18 120/50 (73) 98 06/30/18 21:30 78 18 114/47 (69) 98 06/30/18 21:00 78 17 117/46 (69) 98 06/30/18 20:30 79 16 133/46 (75) 98 06/30/18 20:00 97.8 78 17 125/54 (77) 100 06/30/18 20:00 Nasal Cannula 2.0 06/30/18 19:50 78 06/30/18 19:30 78 17 137/60 (85) 100 06/30/18 19:00 78 17 118/50 (72) 100 06/30/18 18:30 71 17 110/44 (66) 99 06/30/18 18:00 72 17 118/45 (69) 99 06/30/18 17:30 70 17 128/50 (76) 99 06/30/18 17:00 75 16 125/55 (78) 98 06/30/18 16:30 77 13 122/54 (76) 99 06/30/18 16:00 79 06/30/18 16:00 98.4 74 15 127/53 (77) 99 06/30/18 16:00 Nasal Cannula 2.0 06/30/18 15:30 79 13 134/54 (80) 99 06/30/18 15:00 70 14 122/55 (77) 99 06/30/18 14:30 78 17 125/58 (80) 99 General Appearance: WD/WN, on vent EENT: PERRL/EOMI, other - et tube Neck: non-tender, no JVD Rhythm: NSR Cardiovascular: normal rate, regular rhythm, no gallop/murmur Respiratory/Chest: no respiratory distress, other - few rhonchi . Dec BS L lower gardner Abdomen: non tender, soft Extremities: trace edema, other - R UE AV fistula - + bruit Intake and Output 06/30/18 07/01/18 18:59 06:59 Intake Total 477.160 ml 755.000 ml Output Total 1000 ml 0 ml Balance -522.840 ml 755.000 ml Intake Oral 120 ml IV Total 477.160 ml 635.000 ml Output Urine Total 0 ml 0 ml Hemodialysis UF 1000 ml # Bowel Movements 2 Laboratory Tests Test 06/30/18 18:55 07/01/18 10:30 07/01/18 11:15 Random Vancomycin Level 21.8 ug/mL Triglycerides Level 23 MG/DL (30-150) L Arterial Blood pH 7.318 (7.350-7.450) Arterial Blood Partial Pressure CO2 41.2 mmHg (35.0-45.0) Arterial Blood Partial Pressure O2 104.5 mmHg (75.0-100.0) H Arterial Blood HCO3 20.2 mmol/L (22.0-26.0) L Arterial Blood Oxygen Saturation 97.3 % (95-100) Arterial Blood Base Excess -5.1 (-2-2) L Nicola Test Positive Laboratory Tests Microbiology Date/Time Source Procedure Growth Status 06/30/18 12:20 Body Fluid Gram Stain - Final Resulted 06/30/18 12:20 Body Fluid Body Fluid Culture - Preliminary NO GROWTH Resulted Jess Jensen MD Jul 01, 2018 14:38
--- NOTE | 2018-07-01 16:10 | NUR ---
NURSE NOTES: Dopamine drip turned back on because SBP 80s. Will continue to monitor.
[2018-07-01] MEDS ORDERED: NS 275ml ONE (16:36)
[2018-07-01] MEDS ORDERED: Tubing IV Secondary IV ONE (16:36)
[2018-07-01] MEDS ORDERED: Atropine Inj 1mg/10ml Syr ONE (17:36)
--- NOTE | 2018-07-01 19:19 | NUR ---
NURSE NOTES: pt asleep orally intubated-vent o2 sat99 o/o no acute distress noted on dopamine drip at 2mcg/kg/min reposition and suction
--- NOTE | 2018-07-01 19:21 | NUR ---
HAND-OFF: Report given to Symone NATION.
[2018-07-01] MEDS: Dyna-Hex 2% Top Sol 2oz TOPIC SCH (19:48)
--- NOTE | 2018-07-01 22:00 | NUR ---
NURSE NOTES: reposition and suction unable to tirate dopamine drip bp drop 87/40 asleep marta soft wrist restraints non complaints
--- NOTE | 2018-07-01 22:14 | Operative Note - Dictated ---
DATE OF OPERATION: 07/01/2018 SURGEON: Gustavo Rolon M.D. PROCEDURE: Bronchoscopy. PREOPERATIVE DIAGNOSIS: Mucous plugging. POSTOPERATIVE DIAGNOSIS: Mucous plugging. INDICATION: Persistent left lung collapse. CONSENT: After risks and benefits of the procedure were explained to the patient, an informed consent was signed and placed in the chart. Nursing at the bedside and witnessed the consent. DESCRIPTION OF PROCEDURE: Using conscious sedation with Versed, the patient was adequately sedated. xylocaine used for nasopharyngeal anesthesia. Upon proceeding with a bronchoscopy, the patient's airway appeared to have some mild bleeding. The patient's vocal cords were evaluated and appeared to be within normal. The patient's tracheobronchial airway were examined and noted to be full of secretions to the left side. However, upon suctioning the secretions appeared to be fairly thick and difficult to remove. The patient began to desaturate and the remainder of the procedure was aborted. The patient's heart rate also noted to be reduced as well as hypotension. At that point, the patient received epinephrine and blood pressure and heart rate did improve, but the patient's mental status did not improve. The patient then was intubated due to ongoing hypoxemia, which had resolved with bagging. ER physician was at the bedside as well assisting the procedure and the patient currently is stable on the ventilator. Gustavo Rolon M.D. DR: EUGENIA JOB#: [id number] CC: REKHA
[2018-07-02] VITALS (42 sets, daily range): BP systolic 97–141; BP diastolic 29–77
--- NOTE | 2018-07-02 00:29 | NUR ---
Pt remains stable on current noted vent settings. No s/s respiratory distress noted. No changes in condition. ETT moved to left side. Alarms are set and audible. HOB is elevated.
--- NOTE | 2018-07-02 02:00 | NUR ---
NURSE NOTES: nose bleeding noted small able to stop
--- NOTE | 2018-07-02 04:00 | NUR ---
NURSE NOTES: am care done oral care done wound care done and picture done sacral area
--- NOTE | 2018-07-02 06:00 | NUR ---
NURSE NOTES: reposition suction IV INFUSING WELL SITE GOOD ASLEEP RESPONSIVE TO TO TOUCH
[2018-07-02] MEDS: NovoLOG Insulin Flexpen SUBQ SCH ×4 (06:11→21:00)
--- NOTE | 2018-07-02 07:00 | NUR ---
HAND-OFF: Report given to GIORGIO NATION.
--- NOTE | 2018-07-02 07:15 | NUR ---
NURSE NOTES: Report received from Symone NATION. Pt sleepy but alert and oriented x 4. Pt orally intubated ETT 7.5, 22 cm at the lipline, AC 15, TV 500, fiO2 30%, PEEP5. Pt connected to extension division director to sinus rhythm. RADHA AV shunt noted and RADHA ML intact. D 10 1/2NS @ 30 cc/hr and Dopamine 2 mcg/min running. Safety measures in place with bed locked and in lowest position, side rails x2 up and bed alarm activated. Will continue to monitor and continue plan of care.
--- NOTE | 2018-07-02 07:32 | NUR ---
RESPIRATORY NOTE: Patient received mechanically ventilated on PB840 with current ordered vent settings. Patient is orally intubated with ETT tube size 7.5 with 23cm at the lip line and secured with an anchor fast. Visible facial skin appear to be intact with no apparent redness or breakdown. There are bilateral coarse breath sounds present upon auscultation and small amount of thick white/yellow secretions were suctioned without incident. There is an ambu bag available at the bedside and the vent is connected to a red outlet. Vent alarms are functional and audible. Will continue to monitor patient.
--- NOTE | 2018-07-02 08:50 | Critical Care Progress Note ---
Assessment/Plan Assessment/Plan IMPRESSION: 1. Respiratory failure, acute. 2. Evidence of hypercapnia. 3. Evidence of metabolic acidosis. 4. Evidence of pleural effusion. s/p tap 5. End-stage renal disease. 6. Elevated troponin. 7. Possible demand ischemia. 8. Severe protein-calorie malnutrition. 9. Hyponatremia. 10. Hyperkalemia. 11. Anemia. 12. Thrombocytopenia. 13. Mild coagulopathy. 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 15. mucous plugging s/p bronch PLAN bronchoscopy ? repeat in am remains ill needs ICU CPT vent management and try to wean respiratory care tap completed follow up fluid culture monitor for imaging and change as needed medications/laboratory data/nursing notes/ICU care reviewed in detail note reviewed and edited care discussed with RN and RT ICU time spent 39 minutes Critical Care - Subjective Interval Events: stable on vent reviewed overnight events ROS Limited/Unobtainable: Yes Condition: critical EKG Rhythm: Sinus Rhythm I&O: Intake and Output 07/01/18 07/02/18 19:00 07:00 Intake Total 425.485 ml 338.823 ml Output Total 0 ml 0 ml Balance 425.485 ml 338.823 ml IV Total 425.485 ml 338.823 ml Output Urine Total 0 ml 0 ml Critical Care - Objective ET-Tube: 7.5 ET Position: 23 Last 24 Hour Vital Signs Date Time Temp Pulse Resp B/P (MAP) Pulse Ox O2 Delivery O2 Flow Rate FiO2 07/02/18 08:00 Nasal Cannula 2.0 07/02/18 08:00 99.1 79 16 121/42 (68) 100 07/02/18 07:30 79 16 115/56 (75) 100 07/02/18 07:26 77 15 30 07/02/18 07:00 77 15 112/38 (62) 100 07/02/18 06:30 79 15 105/61 (76) 100 07/02/18 06:00 78 15 102/77 (85) 100 07/02/18 05:30 77 15 119/52 (74) 100 07/02/18 05:10 79 15 30 07/02/18 05:03 80 15 116/41 (66) 100 07/02/18 05:00 98.6 82 15 119/41 (67) 100 07/02/18 04:30 80 15 116/41 (66) 100 07/02/18 04:00 76 15 109/39 (62) 100 07/02/18 04:00 76 07/02/18 04:00 Nasal Cannula 2.0 07/02/18 03:30 89 15 117/35 (62) 100 07/02/18 03:00 79 14 115/30 (58) 100 07/02/18 02:59 85 15 30 07/02/18 02:30 79 15 114/35 (61) 100 07/02/18 02:00 87 15 134/47 (76) 100 07/02/18 01:30 89 14 138/50 (79) 100 07/02/18 01:00 88 16 140/49 (79) 100 07/02/18 00:31 88 15 30 07/02/18 00:30 86 18 139/50 (79) 100 07/02/18 00:00 98.9 88 14 139/50 (79) 100 07/02/18 00:00 88 07/02/18 00:00 Nasal Cannula 2.0 07/01/18 23:30 86 15 140/49 (79) 100 07/01/18 23:00 86 15 137/59 (85) 100 07/01/18 23:00 137/59 07/01/18 22:33 86 15 30 07/01/18 22:30 86 15 138/49 (78) 99 07/01/18 22:00 141/50 07/01/18 22:00 86 15 141/50 (80) 99 07/01/18 21:30 89 19 139/59 (85) 99 07/01/18 21:13 88 15 30 07/01/18 21:00 88 19 139/68 (91) 99 07/01/18 20:30 98.8 86 20 136/52 (80) 99 07/01/18 20:00 88 19 136/52 (80) 99 07/01/18 20:00 87 07/01/18 20:00 Nasal Cannula 2.0 07/01/18 19:30 87 19 133/54 (80) 100 07/01/18 19:00 88 19 133/54 (80) 100 07/01/18 18:56 87 15 30 07/01/18 18:30 88 132/46 (74) 100 07/01/18 18:00 87 13 128/54 (78) 99 12/8/18 17:45 90 21 30 07/01/18 17:30 90 19 110/79 (89) 98 07/01/18 17:00 90 17 110/79 (89) 99 07/01/18 16:30 79 15 134/58 (83) 100 07/01/18 16:00 72 07/01/18 16:00 Nasal Cannula 2.0 07/01/18 16:00 98.0 90 16 98/36 (56) 99 07/01/18 15:35 71 21 30 07/01/18 15:30 66 96/16 (42) 100 07/01/18 15:00 72 95/43 (60) 98 07/01/18 14:30 73 83/65 (71) 99 07/01/18 14:00 91 135/56 (82) 98 07/01/18 13:35 106 15 30 07/01/18 13:30 99 21 138/61 (86) 99 07/01/18 13:00 65 12 93/25 (47) 99 07/01/18 12:30 97.3 115 15 125/80 (95) 100 07/01/18 12:00 114 105/86 (92) 100 07/01/18 12:00 112 07/01/18 12:00 Nasal Cannula 2.0 07/01/18 11:41 107/38 07/01/18 11:30 81 94/77 (83) 100 07/01/18 11:00 75 97/77 (84) 100 07/01/18 10:36 92 15 Mechanical Ventilator 40 07/01/18 10:30 40.0 07/01/18 10:30 15 107/38 Mechanical Ventilator 2.0 40 07/01/18 10:30 85 107/38 (61) 100 07/01/18 10:27 102 15 40 07/01/18 10:00 128 63/33 (43) 100 07/01/18 09:30 74 133/63 (86) 99 07/01/18 09:00 75 133/54 (80) 99 Labs: Laboratory Tests Test 07/01/18 10:30 07/01/18 11:15 07/02/18 05:13 07/02/18 08:38 Triglycerides Level 23 MG/DL (30-150) L Arterial Blood pH 7.318 (7.350-7.450) 7.430 (7.350-7.450) Arterial Blood Partial Pressure CO2 41.2 mmHg (35.0-45.0) 33.0 mmHg (35.0-45.0) L Arterial Blood Partial Pressure O2 104.5 mmHg (75.0-100.0) H 108.9 mmHg (75.0-100.0) H Arterial Blood HCO3 20.2 mmol/L (22.0-26.0) L 27.1 mmol/L (22.0-26.0) H Arterial Blood Oxygen Saturation 97.3 % (95-100) 97.6 % (95-100) Arterial Blood Base Excess -5.1 (-2-2) L -2.0 (-2-2) Nicola Test Positive Positive Random Vancomycin Level 26.9 ug/mL Objective: GENERAL: A well-developed female chronically ill. currently on the vent HEENT: Overall negative. NECK: Supple. No jugular venous distention. LUNGS: Reduced breath sounds left side. with some rhonchi and coarse overall CARDIAC: Normal S1 and S2. Regular rate and rhythm. without MRG ABDOMEN: Soft, nontender, and nondistended. no HSM EXTREMITIES: No cyanosis or clubbing. The patient has a right above knee stump, left heel with ulcers. NEUROLOGIC: somewhat sedated reviewed and edited Micro: Microbiology Date/Time Source Procedure Growth Status 06/30/18 12:20 Body Fluid Gram Stain - Final Resulted 06/30/18 12:20 Body Fluid Body Fluid Culture - Preliminary NO GROWTH Resulted Accucheck: 85 Gustavo Rolon MD Jul 02, 2018 08:50
--- NOTE | 2018-07-02 08:53 | Diagnostic Imaging Report ---
EXAM: XR Chest, 1 View CLINICAL HISTORY: F/U TECHNIQUE: Frontal view of the chest. COMPARISON: 07/01/18 FINDINGS/impression Appropriately positioned endotracheal tube. Left arm PICC terminates in the subclavian artery. It no longer deflects superiorly Stable left larger than right pleural effusions with associated atelectasis/consolidation.
[2018-07-02] MEDS: Aspirin Baby 81mg ORAL SCH (09:00)
--- NOTE | 2018-07-02 09:00 | NUR ---
NURSE NOTES: Dr Rolon here to see pt, discussed pt status and ABG levels this am. said pt should stay on vent for at least 1 more night. Will continue to monitor.
[2018-07-02] MEDS: Dextrose 10%/.45 SOD CHL 1,000 ML IV SCH (09:13)
[2018-07-02] MEDS: Heparin 5000 units/ml inj SUBQ SCH ×2 (09:14→21:17)
--- NOTE | 2018-07-02 09:30 | NUR ---
NURSE NOTES: Dr De Leon here to see pt, dialysis ordered for tomorrow. Will continue to monitor.
--- NOTE | 2018-07-02 09:31 | Nephrology Progress Note ---
Assessment/Plan Plan MOF Intubated. B Pleural effusion Anasarca decreasing. Daily HD/UF. Try to wean + extubate Subjective Subjective On Vent. No events overnight. Objective Objective Last 24 Hour Vital Signs Date Time Temp Pulse Resp B/P (MAP) Pulse Ox O2 Delivery O2 Flow Rate FiO2 07/02/18 08:00 Nasal Cannula 2.0 07/02/18 08:00 99.1 79 16 121/42 (68) 100 07/02/18 07:30 79 16 115/56 (75) 100 07/02/18 07:26 77 15 30 07/02/18 07:00 77 15 112/38 (62) 100 07/02/18 06:30 79 15 105/61 (76) 100 07/02/18 06:00 78 15 102/77 (85) 100 07/02/18 05:30 77 15 119/52 (74) 100 07/02/18 05:10 79 15 30 07/02/18 05:03 80 15 116/41 (66) 100 07/02/18 05:00 98.6 82 15 119/41 (67) 100 07/02/18 04:30 80 15 116/41 (66) 100 07/02/18 04:00 76 15 109/39 (62) 100 07/02/18 04:00 76 07/02/18 04:00 Nasal Cannula 2.0 07/02/18 03:30 89 15 117/35 (62) 100 07/02/18 03:00 79 14 115/30 (58) 100 07/02/18 02:59 85 15 30 07/02/18 02:30 79 15 114/35 (61) 100 07/02/18 02:00 87 15 134/47 (76) 100 07/02/18 01:30 89 14 138/50 (79) 100 07/02/18 01:00 88 16 140/49 (79) 100 07/02/18 00:31 88 15 30 07/02/18 00:30 86 18 139/50 (79) 100 07/02/18 00:00 98.9 88 14 139/50 (79) 100 07/02/18 00:00 88 07/02/18 00:00 Nasal Cannula 2.0 07/01/18 23:30 86 15 140/49 (79) 100 07/01/18 23:00 86 15 137/59 (85) 100 07/01/18 23:00 137/59 07/01/18 22:33 86 15 30 07/01/18 22:30 86 15 138/49 (78) 99 07/01/18 22:00 141/50 07/01/18 22:00 86 15 141/50 (80) 99 07/01/18 21:30 89 19 139/59 (85) 99 07/01/18 21:13 88 15 30 07/01/18 21:00 88 19 139/68 (91) 99 07/01/18 20:30 98.8 86 20 136/52 (80) 99 07/01/18 20:00 88 19 136/52 (80) 99 07/01/18 20:00 87 07/01/18 20:00 Nasal Cannula 2.0 07/01/18 19:30 87 19 133/54 (80) 100 07/01/18 19:00 88 19 133/54 (80) 100 07/01/18 18:56 87 15 30 07/01/18 18:30 88 132/46 (74) 100 07/01/18 18:00 87 13 128/54 (78) 99 07/01/18 17:45 90 21 30 07/01/18 17:30 90 19 110/79 (89) 98 07/01/18 17:00 90 17 110/79 (89) 99 07/01/18 16:30 79 15 134/58 (83) 100 07/01/18 16:00 72 07/01/18 16:00 Nasal Cannula 2.0 07/01/18 16:00 98.0 90 16 98/36 (56) 99 07/01/18 15:35 71 21 30 07/01/18 15:30 66 96/16 (42) 100 07/01/18 15:00 72 95/43 (60) 98 07/01/18 14:30 73 83/65 (71) 99 07/01/18 14:00 91 135/56 (82) 98 07/01/18 13:35 106 15 30 07/01/18 13:30 99 21 138/61 (86) 99 07/01/18 13:00 65 12 93/25 (47) 99 07/01/18 12:30 97.3 115 15 125/80 (95) 100 12/8/18 12:00 114 105/86 (92) 100 07/01/18 12:00 112 07/01/18 12:00 Nasal Cannula 2.0 07/01/18 11:41 107/38 07/01/18 11:30 81 94/77 (83) 100 07/01/18 11:00 75 97/77 (84) 100 07/01/18 10:36 92 15 Mechanical Ventilator 40 07/01/18 10:30 40.0 07/01/18 10:30 15 107/38 Mechanical Ventilator 2.0 40 07/01/18 10:30 85 107/38 (61) 100 07/01/18 10:27 102 15 40 07/01/18 10:00 128 63/33 (43) 100 Intake and Output 07/01/18 07/02/18 19:00 07:00 Intake Total 425.485 ml 338.823 ml Output Total 0 ml 0 ml Balance 425.485 ml 338.823 ml IV Total 425.485 ml 338.823 ml Output Urine Total 0 ml 0 ml Laboratory Tests 07/01/18 10:30: Triglycerides Level 23L 07/01/18 11:15: Arterial Blood pH 7.318L, Arterial Blood Partial Pressure CO2 41.2, Arterial Blood Partial Pressure O2 104.5H, Arterial Blood HCO3 20.2L, Arterial Blood Oxygen Saturation 97.3, Arterial Blood Base Excess -5.1L, Nicola Test Positive 07/02/18 05:13: Random Vancomycin Level 26.9 07/02/18 08:38: Arterial Blood pH 7.430, Arterial Blood Partial Pressure CO2 33.0L, Arterial Blood Partial Pressure O2 108.9H, Arterial Blood HCO3 27.1H, Arterial Blood Oxygen Saturation 97.6, Arterial Blood Base Excess -2.0, Nicola Test Positive Height (Feet): 5 Height (Inches): 6.00 Weight (Pounds): 240 Objective Intubated + on vent Blind Cv RR Lungs No air movement L Lung! Abd SNT. BS + E Rt AKA stump clean. Lt. heel ulcer. Lethargic but easily arousable Brenda Fuller MD Jul 02, 2018 09:31
--- NOTE | 2018-07-02 09:50 | NUR ---
NURSE NOTES: Called [facility] and spoke to Meri to confirm Dr Fuller's order for HD tx for tomorrow. Call was placed at 0948. Endorsed to primary RN
--- NOTE | 2018-07-02 10:10 | NUR ---
NURSE NOTES: Talked to daughter regarding pt status and events over night. No acute distress. Will continue to monitor.
[2018-07-02] MEDS ORDERED: Heparin Sod 1000 units/ml 10ml IV ONE (10:45)
[2018-07-02 11:36] LABS: BASOPHILS % (AUTO) 1.4 % (0.0-2.0); HEMATOCRIT 31.1 % (37.0-47.0); HEMOGLOBIN 9.8 G/DL (12.0-16.0); LYMPHOCYTES % (AUTO) 18.8 % (20.0-45.0); MEAN CORPUSCULAR VOLUME 85 FL (80-99); NEUTROPHILS % (AUTO) 64.8 % (45.0-75.0); PLATELET COUNT 109 K/UL (150-450); RED BLOOD COUNT 3.68 M/UL (4.20-5.40); RED CELL DISTRIBUTION WIDTH 14.5 % (11.6-14.8); WHITE BLOOD COUNT 6.2 K/UL (4.8-10.8)
[2018-07-02 11:45] LABS: ANION GAP 11 mmol/L (5-15); BLOOD UREA NITROGEN 50 mg/dL (7-18); CALCIUM 8.1 MG/DL (8.5-10.1); CARBON DIOXIDE 23 MMOL/L (21-32); CHLORIDE 99 MMOL/L (98-107); CREATININE 5.9 MG/DL (0.55-1.30); PHOSPHORUS 4.7 MG/DL (2.5-4.9); SODIUM 133 MMOL/L (136-145)
--- NOTE | 2018-07-02 11:45 | NUR ---
NURSE NOTES: Blood sugar checked, 65. D50 given. Pt blood sugar after 30 mins was 116. Will continue to monitor.
--- NOTE | 2018-07-02 12:00 | NUR ---
NURSE NOTES: Dopamine drip stopped SBP in 130s. Will continue to monitor.
--- NOTE | 2018-07-02 13:51 | NUR ---
NURSE NOTES: Dr Pat here to see pt. No acute distress. Will continue to monitor.
--- NOTE | 2018-07-02 14:18 | Cardiology Progress Note ---
Assessment/Plan Problem List: (1) Bilateral pleural effusion (2) Anemia of chronic disease (3) Peripheral vascular disease (4) CKD (chronic kidney disease) stage 4, GFR 15-29 ml/min (5) NSTEMI (non-ST elevated myocardial infarction) (6) DM2 (diabetes mellitus, type 2) Status: stable, progressing Status Narrative Pt w/ desat/ respiratory failure on 07/01 during bronchoscopy. Required intubation/ mech ventilation. She is being weaned from vent. . XR c/w vol overload - ? HF due to diastolic dysfunction and valve disease ( moderate MR/ TR), and possible pneumonia ( new R upper lung infiltrate) Mild troponin elevation on admission - down-trending, c/w small nonSTEMI. ECHO earlier this adm did not show wall motion abnl. LV EF nl. Assessment/Plan HD for fluid removal per Dr. Fuller Dopamine has been stopped, as pt normotensive. Weaning from vent with possible extubation tomorrow. Followup CXR in am. rec: med rx for CAD w/ nonSTEMI - asa, statin, b chon. Further ischemia evaluation when more stable. Subjective ROS Limited/Unobtainable: No Subjective Cardiology for Dr. Daley Pt intubated but awake, responsive Objective Last 24 Hour Vital Signs Date Time Temp Pulse Resp B/P (MAP) Pulse Ox O2 Delivery O2 Flow Rate FiO2 07/02/18 13:30 72 15 141/30 (67) 100 07/02/18 13:10 73 17 28 07/02/18 13:00 71 15 107/38 (61) 100 07/02/18 12:47 40.0 07/02/18 12:30 70 14 108/38 (61) 100 07/02/18 12:00 Nasal Cannula 2.0 07/02/18 12:00 99.0 71 15 113/38 (63) 99 07/02/18 12:00 81 07/02/18 11:30 77 15 99 07/02/18 11:06 82 15 28 07/02/18 11:00 82 15 131/50 (77) 99 07/02/18 10:30 81 15 135/50 (78) 99 07/02/18 10:00 80 15 119/42 (67) 100 07/02/18 09:29 80 15 28 07/02/18 09:00 80 15 122/55 (77) 99 07/02/18 08:46 28 07/02/18 08:30 80 15 125/46 (72) 100 07/02/18 08:00 Nasal Cannula 2.0 07/02/18 08:00 82 07/02/18 08:00 99.1 79 16 121/42 (68) 100 07/02/18 07:30 79 16 115/56 (75) 100 07/02/18 07:26 77 15 30 07/02/18 07:00 77 15 112/38 (62) 100 07/02/18 06:30 79 15 105/61 (76) 100 07/02/18 06:00 78 15 102/77 (85) 100 07/02/18 05:30 77 15 119/52 (74) 100 07/02/18 05:10 79 15 30 07/02/18 05:03 80 15 116/41 (66) 100 07/02/18 05:00 98.6 82 15 119/41 (67) 100 07/02/18 04:30 80 15 116/41 (66) 100 07/02/18 04:00 76 15 109/39 (62) 100 07/02/18 04:00 76 07/02/18 04:00 Nasal Cannula 2.0 07/02/18 03:30 89 15 117/35 (62) 100 07/02/18 03:00 79 14 115/30 (58) 100 07/02/18 02:59 85 15 30 07/02/18 02:30 79 15 114/35 (61) 100 07/02/18 02:00 87 15 134/47 (76) 100 07/02/18 01:30 89 14 138/50 (79) 100 07/02/18 01:00 88 16 140/49 (79) 100 07/02/18 00:31 88 15 30 07/02/18 00:30 86 18 139/50 (79) 100 07/02/18 00:00 98.9 88 14 139/50 (79) 100 07/02/18 00:00 88 07/02/18 00:00 Nasal Cannula 2.0 07/01/18 23:30 86 15 140/49 (79) 100 07/01/18 23:00 86 15 137/59 (85) 100 07/01/18 23:00 137/59 07/01/18 22:33 86 15 30 07/01/18 22:30 86 15 138/49 (78) 99 07/01/18 22:00 141/50 07/01/18 22:00 86 15 141/50 (80) 99 07/01/18 21:30 89 19 139/59 (85) 99 07/01/18 21:13 88 15 30 07/01/18 21:00 88 19 139/68 (91) 99 07/01/18 20:30 98.8 86 20 136/52 (80) 99 07/01/18 20:00 88 19 136/52 (80) 99 07/01/18 20:00 87 07/01/18 20:00 Nasal Cannula 2.0 07/01/18 19:30 87 19 133/54 (80) 100 07/01/18 19:00 88 19 133/54 (80) 100 07/01/18 18:56 87 15 30 07/01/18 18:30 88 132/46 (74) 100 07/01/18 18:00 87 13 128/54 (78) 99 07/01/18 17:45 90 21 30 07/01/18 17:30 90 19 110/79 (89) 98 07/01/18 17:00 90 17 110/79 (89) 99 07/01/18 16:30 79 15 134/58 (83) 100 07/01/18 16:00 72 07/01/18 16:00 Nasal Cannula 2.0 07/01/18 16:00 98.0 90 16 98/36 (56) 99 07/01/18 15:35 71 21 30 07/01/18 15:30 66 96/16 (42) 100 07/01/18 15:00 72 95/43 (60) 98 07/01/18 14:30 73 83/65 (71) 99 General Appearance: WD/WN, alert, on vent EENT: PERRL/EOMI, other - et tube in place Neck: supple, no JVD Rhythm: NSR Cardiovascular: normal rate, regular rhythm, no gallop/murmur Respiratory/Chest: no respiratory distress, other - dec BS L > R base Abdomen: non tender, soft, no mass Extremities: moderate edema - 2+ pitting edema of distal LEs bilat, other - R UE HD fistula + bruit Intake and Output 07/01/18 07/02/18 18:59 06:59 Intake Total 395.485 ml 368.823 ml Output Total 0 ml 0 ml Balance 395.485 ml 368.823 ml IV Total 395.485 ml 368.823 ml Output Urine Total 0 ml 0 ml Laboratory Tests Test 07/02/18 05:13 07/02/18 08:38 07/02/18 10:50 Random Vancomycin Level 26.9 ug/mL Arterial Blood pH 7.430 (7.350-7.450) Arterial Blood Partial Pressure CO2 33.0 mmHg (35.0-45.0) L Arterial Blood Partial Pressure O2 108.9 mmHg (75.0-100.0) H Arterial Blood HCO3 27.1 mmol/L (22.0-26.0) H Arterial Blood Oxygen Saturation 97.6 % (95-100) Arterial Blood Base Excess -2.0 (-2-2) Nicola Test Positive White Blood Count 6.2 K/UL (4.8-10.8) Red Blood Count 3.68 M/UL (4.20-5.40) L Hemoglobin 9.8 G/DL (12.0-16.0) L Hematocrit 31.1 % (37.0-47.0) L Mean Corpuscular Volume 85 FL (80-99) Mean Corpuscular Hemoglobin 26.6 PG (27.0-31.0) L Mean Corpuscular Hemoglobin Concent 31.4 G/DL (32.0-36.0) L Red Cell Distribution Width 14.5 % (11.6-14.8) Platelet Count 109 K/UL (150-450) L Mean Platelet Volume 8.8 FL (6.5-10.1) Neutrophils (%) (Auto) 64.8 % (45.0-75.0) Lymphocytes (%) (Auto) 18.8 % (20.0-45.0) L Monocytes (%) (Auto) 11.0 % (1.0-10.0) H Eosinophils (%) (Auto) 4.0 % (0.0-3.0) H Basophils (%) (Auto) 1.4 % (0.0-2.0) Sodium Level 133 MMOL/L (136-145) L Potassium Level 4.0 MMOL/L (3.5-5.1) Chloride Level 99 MMOL/L (98-107) Carbon Dioxide Level 23 MMOL/L (21-32) Anion Gap 11 mmol/L (5-15) Blood Urea Nitrogen 50 mg/dL (7-18) H Creatinine 5.9 MG/DL (0.55-1.30) H Estimat Glomerular Filtration Rate 8.5 mL/min (>60) Glucose Level 66 MG/DL (74-106) L Calcium Level 8.1 MG/DL (8.5-10.1) L Phosphorus Level 4.7 MG/DL (2.5-4.9) Magnesium Level 1.7 MG/DL (1.8-2.4) L Microbiology Date/Time Source Procedure Growth Status 06/30/18 18:55 Blood Blood Culture - Preliminary NO GROWTH AFTER 24 HOURS Resulted 06/30/18 12:20 Body Fluid Gram Stain - Final Resulted 06/30/18 12:20 Body Fluid Body Fluid Culture - Preliminary NO GROWTH Resulted Jess Jensen MD Jul 02, 2018 14:18
[2018-07-02] MEDS: Meropenem 500 MG in NS 55 ML IVPB SCH (14:56)
--- NOTE | 2018-07-02 16:47 | NUR ---
NURSE NOTES: Turned and repositioned pt. Oral care done. Will continue to monitor.
--- NOTE | 2018-07-02 17:37 | NUR ---
NURSE NOTES: Bloody mucous from mouth on towel. Mouth assessed, no sign of bleeding. Otal care done. Will continue to monitor.
[2018-07-02] MEDS: DOPamine 400mg/250ml 250 ML IV SCH (18:45)
--- NOTE | 2018-07-02 19:18 | NUR ---
RESPIRATORY NOTE: Received pt. on 840 vent. Vent settings are: A/C rate of 15, Vt of 500, FI02 28%, PEEP +-5. No respiratory distress noted, SP02 @ 100%. Ambu bag @ bs. Vent plugged on red outlet. Will continue to monitor pt.
--- NOTE | 2018-07-02 19:19 | NUR ---
HAND-OFF: Report given to Jose De Jesus Machuca.
--- NOTE | 2018-07-02 19:39 | NUR ---
NURSE NOTES: Report received from [facility]. Pt sleepy but alert and oriented x 3-4. Pt orally intubated ETT 7.5, 23 cm at the lipline, AC 15, TV 500, fiO2 28%, PEEP of 5. Pt connected to photographic technician to sinus rhythm. RADHA AV shunt noted and RADHA Mid-line intact. D 10 1/2NS @ 30 cc/hr and Dopamine gtt held since noon time/today2 BP since has been stable. Safety measures in place with bed locked and in lowest position, side rails x2 up and bed alarm activated, Patient has generalized edema all over body, wound vacuum noted on L foot covered with dressing. Patient noted to also have below knee amputation on right lower extremity, both have pillows on them. Will continue to monitor and continue plan of care.
[2018-07-02] MEDS: Dyna-Hex 2% Top Sol 2oz TOPIC SCH (20:00)
--- NOTE | 2018-07-02 20:00 | NUR ---
NURSE NOTES: [facility] HD Nurse at bedside setting up for patients dialysis. Patient remains awake and compliant. Red tinged secretions noted, provided oral hygiene and suction. Patient was repositioned prior to starting HD. Vitals now are stable, and no acute distress at the moment, will continue to monitor.
--- NOTE | 2018-07-02 21:00 | NUR ---
NURSE NOTES: Patient currently receiving hemodialysis, so far Blood pressure has been remaining stable. Glucose is 80. Will continue to monitor.
--- NOTE | 2018-07-02 22:00 | NUR ---
NURSE NOTES: Patient remains on HD. So far patient tolerating well. NO acute distress, BP remaining stable. Patient suctioned.
--- NOTE | 2018-07-02 22:36 | General Progress Note ---
Assessment/Plan Problem List: (1) Encephalopathy acute ICD Codes: G93.40 - Encephalopathy, unspecified SNOMED: 15997958, [id number] Assessment/Plan the pt lacks capacity to refuse medications the pt lacks capacity to leave ama haldol prn soft restraints as needed Subjective Allergies: Coded Allergies: BENAZEPRIL (Verified Allergy, Unknown, 06/12/18) CODEINE (Verified Allergy, Unknown, 06/12/18) INSULIN ASPART (Verified Allergy, Unknown, 06/12/18) INSULIN DETEMIR (Verified Allergy, Unknown, 06/12/18) OPIOIDS - MORPHINE ANALOGUES (Verified Allergy, Unknown, 06/12/18) Subjective the pt is waxing and waning and gets agitated at times Objective Last 24 Hour Vital Signs Date Time Temp Pulse Resp B/P (MAP) Pulse Ox O2 Delivery O2 Flow Rate FiO2 07/02/18 21:29 73 18 28 07/02/18 21:00 74 15 97/29 (51) 100 07/02/18 20:00 28 07/02/18 20:00 75 07/02/18 20:00 Mechanical Ventilator 07/02/18 20:00 98.8 73 16 104/33 (56) 100 07/02/18 19:17 81 18 28 07/02/18 19:00 83 18 110/44 (66) 100 07/02/18 18:45 110/36 07/02/18 18:30 76 15 110/36 (60) 99 07/02/18 18:00 76 17 112/41 (64) 100 07/02/18 17:30 77 17 112/41 (64) 99 07/02/18 17:00 77 18 110/36 (60) 100 07/02/18 16:53 75 15 28 07/02/18 16:30 77 17 118/44 (68) 99 07/02/18 16:00 72 07/02/18 16:00 Mechanical Ventilator 07/02/18 16:00 74 16 118/44 (68) 99 07/02/18 15:30 74 16 102/43 (62) 99 07/02/18 15:07 74 17 28 07/02/18 15:00 73 15 113/39 (63) 99 07/02/18 14:30 72 15 113/39 (63) 99 07/02/18 14:00 72 15 110/39 (62) 100 07/02/18 13:30 72 15 141/30 (67) 100 07/02/18 13:10 73 17 28 07/02/18 13:00 71 15 107/38 (61) 100 07/02/18 12:47 40.0 07/02/18 12:30 70 14 108/38 (61) 100 07/02/18 12:00 Mechanical Ventilator 07/02/18 12:00 99.0 71 15 113/38 (63) 99 07/02/18 12:00 81 07/02/18 11:30 77 15 99 07/02/18 11:06 82 15 28 07/02/18 11:00 82 15 131/50 (77) 99 07/02/18 10:30 81 15 135/50 (78) 99 07/02/18 10:00 80 15 119/42 (67) 100 07/02/18 09:29 80 15 28 07/02/18 09:00 80 15 122/55 (77) 99 07/02/18 08:46 28 07/02/18 08:30 80 15 125/46 (72) 100 07/02/18 08:00 Mechanical Ventilator 07/02/18 08:00 82 07/02/18 08:00 99.1 79 16 121/42 (68) 100 07/02/18 07:30 79 16 115/56 (75) 100 07/02/18 07:26 77 15 30 07/02/18 07:00 77 15 112/38 (62) 100 07/02/18 06:30 79 15 105/61 (76) 100 07/02/18 06:00 78 15 102/77 (85) 100 07/02/18 05:30 77 15 119/52 (74) 100 07/02/18 05:10 79 15 30 07/02/18 05:03 80 15 116/41 (66) 100 07/02/18 05:00 98.6 82 15 119/41 (67) 100 07/02/18 04:30 80 15 116/41 (66) 100 07/02/18 04:00 76 15 109/39 (62) 100 07/02/18 04:00 76 07/02/18 04:00 Nasal Cannula 2.0 07/02/18 03:30 89 15 117/35 (62) 100 07/02/18 03:00 79 14 115/30 (58) 100 07/02/18 02:59 85 15 30 07/02/18 02:30 79 15 114/35 (61) 100 07/02/18 02:00 87 15 134/47 (76) 100 07/02/18 01:30 89 14 138/50 (79) 100 07/02/18 01:00 88 16 140/49 (79) 100 07/02/18 00:31 88 15 30 07/02/18 00:30 86 18 139/50 (79) 100 07/02/18 00:00 98.9 88 14 139/50 (79) 100 07/02/18 00:00 88 07/02/18 00:00 Nasal Cannula 2.0 07/01/18 23:30 86 15 140/49 (79) 100 07/01/18 23:00 86 15 137/59 (85) 100 07/01/18 23:00 137/59 Intake and Output 07/01/18 07/02/18 19:00 07:00 Intake Total 425.485 ml 338.823 ml Output Total 0 ml 0 ml Balance 425.485 ml 338.823 ml IV Total 425.485 ml 338.823 ml Output Urine Total 0 ml 0 ml Laboratory Tests 07/02/18 05:13: Random Vancomycin Level 26.9 07/02/18 08:38: Arterial Blood pH 7.430, Arterial Blood Partial Pressure CO2 33.0L, Arterial Blood Partial Pressure O2 108.9H, Arterial Blood HCO3 27.1H, Arterial Blood Oxygen Saturation 97.6, Arterial Blood Base Excess -2.0, Nicola Test Positive 07/02/18 10:50: White Blood Count 6.2, Red Blood Count 3.68L, Hemoglobin 9.8L, Hematocrit 31.1L , Mean Corpuscular Volume 85, Mean Corpuscular Hemoglobin 26.6L, Mean Corpuscular Hemoglobin Concent 31.4L, Red Cell Distribution Width 14.5, Platelet Count 109L, Mean Platelet Volume 8.8, Neutrophils (%) (Auto) 64.8, Lymphocytes (%) (Auto) 18.8L, Monocytes (%) (Auto) 11.0H, Eosinophils (%) (Auto ) 4.0H, Basophils (%) (Auto) 1.4, Sodium Level 133L, Potassium Level 4.0, Chloride Level 99, Carbon Dioxide Level 23, Anion Gap 11, Blood Urea Nitrogen 50H, Creatinine 5.9H, Estimat Glomerular Filtration Rate 8.5, Glucose Level 66L , Calcium Level 8.1L, Phosphorus Level 4.7, Magnesium Level 1.7L Height (Feet): 5 Height (Inches): 6.00 Weight (Pounds): 240 Abelardo Yadav MD Jul 02, 2018 22:35
[2018-07-03] VITALS (22 sets, daily range): BP systolic 70–117; BP diastolic 32–82
--- NOTE | 2018-07-03 | NUR ---
NURSE NOTES: HD finished, 2000ml of fluid removed. Patient BP remains stable. Patient is warm to touch. temperature shows 99.6F. Provided some cooling measures. Also, Rechecked glucose and showed reading of 70. Gave patient D50% IVP. Patient remains responsive to voice commands, oral care given and lavaged and suctioned. IV lines remains patent, patient was also repositioned. Will continue to monitor.
--- NOTE | 2018-07-03 01:00 | NUR ---
NURSE NOTES: Patient glucose reading post 1 hr after D50% was given is now 96. Patient remains normotensive, cooling measure ongoing, repositioned patient, left heel remains afloat, no acute distress at this time, will continue to monitor.
--- NOTE | 2018-07-03 02:00 | NUR ---
NURSE NOTES: Patient repositioned, oral care provided and suctioned. Patients has low grade fever of 99.8F. Cooling measure ongoing.Patient has remained normotensive, no acute distress at this time, will continue to monitor.
--- NOTE | 2018-07-03 04:00 | NUR ---
NURSE NOTES: Patient bathed, and repositioned, cooling measures ongoing, temperature now is 98.8F, but still remains warm to touch. BP remains stable, patient is awake and able to follow simple commands. Maintenance fluids ongoing.
--- NOTE | 2018-07-03 06:06 | NUR ---
NURSE NOTES: Patient repositioned, and provided oral care. Temperature now is 98.6F. Patient suctioned and pillows adjusted. Will continue to monitor.
[2018-07-03] MEDS: NovoLOG Insulin Flexpen SUBQ SCH ×4 (06:30→20:36)
--- NOTE | 2018-07-03 07:05 | NUR ---
HAND-OFF: Report given to Hesham NATION.
--- NOTE | 2018-07-03 07:10 | NUR ---
NURSE NOTES: Report received from Jose De Jesus Castro RN.Pt asleep noted no resp distress,intubated,ETT7.5,lip 20cm,AC 15,TV 500 FiO2 28% Peep 5,no signs of pain or discomfort SR on the monitor,NPO ,anuric,HD pt,with AV shunt to RADHA and a Midline to MARCELO both IV sites intact,with IVF D10 1/2 NS at 30 ml/hr,skin warm and dry ,bilat upper extremities edematous,with wound VAC in placed,HOB elevated SR up x2,bed lock in lowest position w,will continue with plan of care.
--- NOTE | 2018-07-03 07:48 | Nephrology Progress Note ---
Assessment/Plan Plan MOF Intubated. B Pleural effusion Anasarca decreasing. Daily HD/UF. Try to wean + extubate Subjective Subjective On Vent. No events overnight. Objective Objective Last 24 Hour Vital Signs Date Time Temp Pulse Resp B/P (MAP) Pulse Ox O2 Delivery O2 Flow Rate FiO2 07/03/18 07:13 77 17 28 07/03/18 07:00 71 15 116/42 (66) 100 07/03/18 06:00 70 15 108/48 (68) 100 07/03/18 05:19 72 18 28 07/03/18 05:00 79 16 110/50 (70) 100 07/03/18 04:00 Mechanical Ventilator 07/03/18 04:00 98.6 71 18 107/45 (65) 100 07/03/18 04:00 81 07/03/18 03:11 75 17 28 07/03/18 03:00 72 15 113/38 (63) 100 07/03/18 02:00 71 18 116/32 (60) 100 07/03/18 01:28 73 17 28 07/03/18 01:00 73 17 113/59 (77) 100 07/03/18 00:00 99.6 75 16 110/35 (60) 100 07/03/18 00:00 78 07/03/18 00:00 Mechanical Ventilator 07/02/18 23:34 80 20 28 07/02/18 23:00 78 18 121/63 (82) 99 07/02/18 22:00 79 16 101/50 (67) 100 07/02/18 21:29 73 18 28 07/02/18 21:00 74 15 97/29 (51) 100 07/02/18 20:00 28 07/02/18 20:00 75 07/02/18 20:00 Mechanical Ventilator 07/02/18 20:00 98.8 73 16 104/33 (56) 100 07/02/18 19:17 81 18 28 07/02/18 19:00 83 18 110/44 (66) 100 07/02/18 18:45 110/36 07/02/18 18:30 76 15 110/36 (60) 99 07/02/18 18:00 76 17 112/41 (64) 100 07/02/18 17:30 77 17 112/41 (64) 99 07/02/18 17:00 77 18 110/36 (60) 100 07/02/18 16:53 75 15 28 07/02/18 16:30 77 17 118/44 (68) 99 07/02/18 16:00 72 07/02/18 16:00 Mechanical Ventilator 07/02/18 16:00 74 16 118/44 (68) 99 07/02/18 15:30 74 16 102/43 (62) 99 07/02/18 15:07 74 17 28 07/02/18 15:00 73 15 113/39 (63) 99 07/02/18 14:30 72 15 113/39 (63) 99 07/02/18 14:00 72 15 110/39 (62) 100 07/02/18 13:30 72 15 141/30 (67) 100 07/02/18 13:10 73 17 28 07/02/18 13:00 71 15 107/38 (61) 100 07/02/18 12:47 40.0 07/02/18 12:30 70 14 108/38 (61) 100 07/02/18 12:00 Mechanical Ventilator 07/02/18 12:00 99.0 71 15 113/38 (63) 99 07/02/18 12:00 81 07/02/18 11:30 77 15 99 07/02/18 11:06 82 15 28 07/02/18 11:00 82 15 131/50 (77) 99 07/02/18 10:30 81 15 135/50 (78) 99 07/02/18 10:00 80 15 119/42 (67) 100 07/02/18 09:29 80 15 28 07/02/18 09:00 80 15 122/55 (77) 99 07/02/18 08:46 28 07/02/18 08:30 80 15 125/46 (72) 100 07/02/18 08:00 Mechanical Ventilator 07/02/18 08:00 82 07/02/18 08:00 99.1 79 16 121/42 (68) 100 Intake and Output 07/02/18 07/03/18 19:00 07:00 Intake Total 435.240 ml 300 ml Output Total 0 ml 2000 ml Balance 435.240 ml -1700 ml IV Total 435.240 ml 300 ml Output Urine Total 0 ml 0 ml Hemodialysis UF 2000 ml # Bowel Movements 1 1 Laboratory Tests 07/02/18 08:38: Arterial Blood pH 7.430, Arterial Blood Partial Pressure CO2 33.0L, Arterial Blood Partial Pressure O2 108.9H, Arterial Blood HCO3 27.1H, Arterial Blood Oxygen Saturation 97.6, Arterial Blood Base Excess -2.0, Nicola Test Positive 07/02/18 10:50: White Blood Count 6.2, Red Blood Count 3.68L, Hemoglobin 9.8L, Hematocrit 31.1L , Mean Corpuscular Volume 85, Mean Corpuscular Hemoglobin 26.6L, Mean Corpuscular Hemoglobin Concent 31.4L, Red Cell Distribution Width 14.5, Platelet Count 109L, Mean Platelet Volume 8.8, Neutrophils (%) (Auto) 64.8, Lymphocytes (%) (Auto) 18.8L, Monocytes (%) (Auto) 11.0H, Eosinophils (%) (Auto ) 4.0H, Basophils (%) (Auto) 1.4, Sodium Level 133L, Potassium Level 4.0, Chloride Level 99, Carbon Dioxide Level 23, Anion Gap 11, Blood Urea Nitrogen 50H, Creatinine 5.9H, Estimat Glomerular Filtration Rate 8.5, Glucose Level 66L , Calcium Level 8.1L, Phosphorus Level 4.7, Magnesium Level 1.7L 07/03/18 05:00: Random Vancomycin Level 22.6 Height (Feet): 5 Height (Inches): 6.00 Weight (Pounds): 201 Objective Intubated + on vent Blind Cv RR Lungs No air movement L Lung! Abd SNT. BS + E Rt AKA stump clean. Lt. heel ulcer. Lethargic but easily arousable Brenda Fuller MD Jul 03, 2018 07:48
--- NOTE | 2018-07-03 08:44 | Critical Care Progress Note ---
Assessment/Plan Assessment/Plan IMPRESSION: 1. Respiratory failure, acute. 2. Evidence of hypercapnia. 3. Evidence of metabolic acidosis. 4. Evidence of pleural effusion. s/p tap 5. End-stage renal disease. 6. Elevated troponin. 7. Possible demand ischemia. 8. Severe protein-calorie malnutrition. 9. Hyponatremia. 10. Hyperkalemia. 11. Anemia. 12. Thrombocytopenia. 13. Mild coagulopathy. 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 15. mucous plugging s/p bronch PLAN bronchoscopy pending imaging remains ill maintain ICU CPT and mucomyst vent management and try to wean today respiratory care monitor fluid results follow up fluid culture monitor for imaging and change as needed medications/laboratory data/nursing notes/ICU care reviewed in detail note reviewed and edited care discussed with RN and RT ICU time spent 42 minutes Critical Care - Subjective Interval Events: events noted imaging with some improvement but persistent left base changes ROS Limited/Unobtainable: Yes Condition: critical EKG Rhythm: Sinus Rhythm I&O: Intake and Output 07/02/18 07/03/18 19:00 07:00 Intake Total 435.240 ml 300 ml Output Total 0 ml 2000 ml Balance 435.240 ml -1700 ml IV Total 435.240 ml 300 ml Output Urine Total 0 ml 0 ml Hemodialysis UF 2000 ml # Bowel Movements 1 1 Critical Care - Objective ET-Tube: 7.5 ET Position: 23 Last 24 Hour Vital Signs Date Time Temp Pulse Resp B/P (MAP) Pulse Ox O2 Delivery O2 Flow Rate FiO2 07/03/18 08:00 72 07/03/18 08:00 97.7 72 16 117/41 (66) 100 72 07/03/18 07:13 77 17 28 07/03/18 07:00 71 15 116/42 (66) 100 07/03/18 06:00 70 15 108/48 (68) 100 07/03/18 05:19 72 18 28 07/03/18 05:00 79 16 110/50 (70) 100 07/03/18 04:00 Mechanical Ventilator 07/03/18 04:00 98.6 71 18 107/45 (65) 100 07/03/18 04:00 81 07/03/18 03:11 75 17 28 07/03/18 03:00 72 15 113/38 (63) 100 07/03/18 02:00 71 18 116/32 (60) 100 12/10/18 01:28 73 17 28 07/03/18 01:00 73 17 113/59 (77) 100 07/03/18 00:00 99.6 75 16 110/35 (60) 100 07/03/18 00:00 78 07/03/18 00:00 Mechanical Ventilator 07/02/18 23:34 80 20 28 07/02/18 23:00 78 18 121/63 (82) 99 07/02/18 22:00 79 16 101/50 (67) 100 07/02/18 21:29 73 18 28 07/02/18 21:00 74 15 97/29 (51) 100 07/02/18 20:00 28 07/02/18 20:00 75 07/02/18 20:00 Mechanical Ventilator 07/02/18 20:00 98.8 73 16 104/33 (56) 100 07/02/18 19:17 81 18 28 07/02/18 19:00 83 18 110/44 (66) 100 07/02/18 18:45 110/36 07/02/18 18:30 76 15 110/36 (60) 99 07/02/18 18:00 76 17 112/41 (64) 100 07/02/18 17:30 77 17 112/41 (64) 99 07/02/18 17:00 77 18 110/36 (60) 100 07/02/18 16:53 75 15 28 07/02/18 16:30 77 17 118/44 (68) 99 07/02/18 16:00 72 07/02/18 16:00 Mechanical Ventilator 07/02/18 16:00 74 16 118/44 (68) 99 07/02/18 15:30 74 16 102/43 (62) 99 07/02/18 15:07 74 17 28 07/02/18 15:00 73 15 113/39 (63) 99 07/02/18 14:30 72 15 113/39 (63) 99 07/02/18 14:00 72 15 110/39 (62) 100 07/02/18 13:30 72 15 141/30 (67) 100 07/02/18 13:10 73 17 28 07/02/18 13:00 71 15 107/38 (61) 100 07/02/18 12:47 40.0 07/02/18 12:30 70 14 108/38 (61) 100 07/02/18 12:00 Mechanical Ventilator 07/02/18 12:00 99.0 71 15 113/38 (63) 99 07/02/18 12:00 81 07/02/18 11:30 77 15 99 07/02/18 11:06 82 15 28 07/02/18 11:00 82 15 131/50 (77) 99 07/02/18 10:30 81 15 135/50 (78) 99 07/02/18 10:00 80 15 119/42 (67) 100 07/02/18 09:29 80 15 28 07/02/18 09:00 80 15 122/55 (77) 99 07/02/18 08:46 28 Labs: Labs Test 06/30/18 12:20 06/30/18 18:55 07/01/18 10:30 07/01/18 11:15 Body Fluid Source Thoracentesis Body Fluid Volume 21 mL Body Fluid Appearance Bloody (Clear) Body Fluid RBC 77924 /CUMM Body Fluid Total Nucleated Cells 400 /CUMM Body Fluid Polynuclear WBCs (%) 2 % Body Fluid Mononuclear WBCs (%) 98 % Body Fluid Mesothelial Cells (%) 0 % Random Vancomycin Level 21.8 ug/mL Triglycerides Level 23 MG/DL (30-150) Arterial Blood pH 7.318 (7.350-7.450) Arterial Blood Partial Pressure CO2 41.2 mmHg (35.0-45.0) Arterial Blood Partial Pressure O2 104.5 mmHg (75.0-100.0) Arterial Blood HCO3 20.2 mmol/L (22.0-26.0) Arterial Blood Oxygen Saturation 97.3 % (95-100) Arterial Blood Base Excess -5.1 (-2-2) Nicola Test Positive Test 07/02/18 05:13 07/02/18 08:38 07/02/18 10:50 07/03/18 05:00 Random Vancomycin Level 26.9 ug/mL 22.6 ug/mL Arterial Blood pH 7.430 (7.350-7.450) Arterial Blood Partial Pressure CO2 33.0 mmHg (35.0-45.0) Arterial Blood Partial Pressure O2 108.9 mmHg (75.0-100.0) Arterial Blood HCO3 27.1 mmol/L (22.0-26.0) Arterial Blood Oxygen Saturation 97.6 % (95-100) Arterial Blood Base Excess -2.0 (-2-2) Nicola Test Positive White Blood Count 6.2 K/UL (4.8-10.8) Red Blood Count 3.68 M/UL (4.20-5.40) Hemoglobin 9.8 G/DL (12.0-16.0) Hematocrit 31.1 % (37.0-47.0) Mean Corpuscular Volume 85 FL (80-99) Mean Corpuscular Hemoglobin 26.6 PG (27.0-31.0) Mean Corpuscular Hemoglobin Concent 31.4 G/DL (32.0-36.0) Red Cell Distribution Width 14.5 % (11.6-14.8) Platelet Count 109 K/UL (150-450) Mean Platelet Volume 8.8 FL (6.5-10.1) Neutrophils (%) (Auto) 64.8 % (45.0-75.0) Lymphocytes (%) (Auto) 18.8 % (20.0-45.0) Monocytes (%) (Auto) 11.0 % (1.0-10.0) Eosinophils (%) (Auto) 4.0 % (0.0-3.0) Basophils (%) (Auto) 1.4 % (0.0-2.0) Sodium Level 133 MMOL/L (136-145) Potassium Level 4.0 MMOL/L (3.5-5.1) Chloride Level 99 MMOL/L (98-107) Carbon Dioxide Level 23 MMOL/L (21-32) Anion Gap 11 mmol/L (5-15) Blood Urea Nitrogen 50 mg/dL (7-18) Creatinine 5.9 MG/DL (0.55-1.30) Estimat Glomerular Filtration Rate 8.5 mL/min (>60) Glucose Level 66 MG/DL (74-106) Calcium Level 8.1 MG/DL (8.5-10.1) Phosphorus Level 4.7 MG/DL (2.5-4.9) Magnesium Level 1.7 MG/DL (1.8-2.4) Objective: GENERAL: A well-developed female chronically ill. currently on the vent HEENT: Overall negative. NECK: Supple. No jugular venous distention. LUNGS: Reduced breath sounds left side. occasional rhonchi CARDIAC: Normal S1 and S2. Regular rate and rhythm. without MRG ABDOMEN: Soft, nontender, and nondistended. no HSM EXTREMITIES: No cyanosis or clubbing. The patient has a right above knee stump, left heel with ulcers. NEUROLOGIC: somewhat sedated reviewed and edited Micro: Microbiology Date/Time Source Procedure Growth Status 06/30/18 18:55 Blood Blood Culture - Preliminary NO GROWTH AFTER 48 HOURS Resulted 06/30/18 12:20 Body Fluid Gram Stain - Final Resulted 06/30/18 12:20 Body Fluid Body Fluid Culture - Preliminary NO GROWTH Resulted 07/01/18 11:00 Sputum AFB Specimen Processing Tissue - Final Resulted 07/01/18 11:00 Sputum Acid Fast Bacilli Smear - Final Resulted 07/01/18 11:00 Sputum Acid Fast Bacilli Culture Pending Resulted Accucheck: 81 Gustavo Rolon MD Jul 03, 2018 08:44
--- NOTE | 2018-07-03 08:46 | Cardiology Progress Note ---
Assessment/Plan Assessment/Plan congestive heart failure, severe MR, right ventricular dilatation and dysfunction (my interpretation) right heart failure and left heart failure, edema, the patient BP is measured on right calf, I am concerned that it is not accurate. lisa CXR showed CHF, and pulmonary edema Will start on dobutamine drip try to extubate her. her prognosis is very serious from cardiac standpoint, she is fluid overloaded Subjective Subjective the patient was intubated over the weekend she is sedated now and not responding Objective Last 24 Hour Vital Signs Date Time Temp Pulse Resp B/P (MAP) Pulse Ox O2 Delivery O2 Flow Rate FiO2 07/03/18 08:00 97.7 72 16 117/41 (66) 100 72 07/03/18 07:13 77 17 28 07/03/18 07:00 71 15 116/42 (66) 100 07/03/18 06:00 70 15 108/48 (68) 100 07/03/18 05:19 72 18 28 07/03/18 05:00 79 16 110/50 (70) 100 07/03/18 04:00 Mechanical Ventilator 07/03/18 04:00 98.6 71 18 107/45 (65) 100 07/03/18 04:00 81 07/03/18 03:11 75 17 28 07/03/18 03:00 72 15 113/38 (63) 100 07/03/18 02:00 71 18 116/32 (60) 100 07/03/18 01:28 73 17 28 07/03/18 01:00 73 17 113/59 (77) 100 07/03/18 00:00 99.6 75 16 110/35 (60) 100 07/03/18 00:00 78 07/03/18 00:00 Mechanical Ventilator 07/02/18 23:34 80 20 28 07/02/18 23:00 78 18 121/63 (82) 99 07/02/18 22:00 79 16 101/50 (67) 100 07/02/18 21:29 73 18 28 07/02/18 21:00 74 15 97/29 (51) 100 07/02/18 20:00 28 07/02/18 20:00 75 07/02/18 20:00 Mechanical Ventilator 07/02/18 20:00 98.8 73 16 104/33 (56) 100 07/02/18 19:17 81 18 28 07/02/18 19:00 83 18 110/44 (66) 100 07/02/18 18:45 110/36 07/02/18 18:30 76 15 110/36 (60) 99 07/02/18 18:00 76 17 112/41 (64) 100 07/02/18 17:30 77 17 112/41 (64) 99 07/02/18 17:00 77 18 110/36 (60) 100 07/02/18 16:53 75 15 28 07/02/18 16:30 77 17 118/44 (68) 99 07/02/18 16:00 72 07/02/18 16:00 Mechanical Ventilator 07/02/18 16:00 74 16 118/44 (68) 99 07/02/18 15:30 74 16 102/43 (62) 99 07/02/18 15:07 74 17 28 07/02/18 15:00 73 15 113/39 (63) 99 07/02/18 14:30 72 15 113/39 (63) 99 07/02/18 14:00 72 15 110/39 (62) 100 07/02/18 13:30 72 15 141/30 (67) 100 07/02/18 13:10 73 17 28 07/02/18 13:00 71 15 107/38 (61) 100 07/02/18 12:47 40.0 07/02/18 12:30 70 14 108/38 (61) 100 07/02/18 12:00 Mechanical Ventilator 07/02/18 12:00 99.0 71 15 113/38 (63) 99 07/02/18 12:00 81 07/02/18 11:30 77 15 99 07/02/18 11:06 82 15 28 07/02/18 11:00 82 15 131/50 (77) 99 07/02/18 10:30 81 15 135/50 (78) 99 07/02/18 10:00 80 15 119/42 (67) 100 07/02/18 09:29 80 15 28 07/02/18 09:00 80 15 122/55 (77) 99 07/02/18 08:46 28 General Appearance: on vent, other - wevere periferal edema EENT: PERRL/EOMI Neck: JVD - high Rhythm: NSR Cardiovascular: normal rate Respiratory/Chest: respiratory distress, crackles/rales Abdomen: distended Extremities: other - both arms swelling more left than right Intake and Output 07/02/18 07/03/18 19:00 07:00 Intake Total 435.240 ml 300 ml Output Total 0 ml 2000 ml Balance 435.240 ml -1700 ml IV Total 435.240 ml 300 ml Output Urine Total 0 ml 0 ml Hemodialysis UF 2000 ml # Bowel Movements 1 1 Laboratory Tests Test 07/02/18 10:50 07/03/18 05:00 White Blood Count 6.2 K/UL (4.8-10.8) Red Blood Count 3.68 M/UL (4.20-5.40) L Hemoglobin 9.8 G/DL (12.0-16.0) L Hematocrit 31.1 % (37.0-47.0) L Mean Corpuscular Volume 85 FL (80-99) Mean Corpuscular Hemoglobin 26.6 PG (27.0-31.0) L Mean Corpuscular Hemoglobin Concent 31.4 G/DL (32.0-36.0) L Red Cell Distribution Width 14.5 % (11.6-14.8) Platelet Count 109 K/UL (150-450) L Mean Platelet Volume 8.8 FL (6.5-10.1) Neutrophils (%) (Auto) 64.8 % (45.0-75.0) Lymphocytes (%) (Auto) 18.8 % (20.0-45.0) L Monocytes (%) (Auto) 11.0 % (1.0-10.0) H Eosinophils (%) (Auto) 4.0 % (0.0-3.0) H Basophils (%) (Auto) 1.4 % (0.0-2.0) Sodium Level 133 MMOL/L (136-145) L Potassium Level 4.0 MMOL/L (3.5-5.1) Chloride Level 99 MMOL/L (98-107) Carbon Dioxide Level 23 MMOL/L (21-32) Anion Gap 11 mmol/L (5-15) Blood Urea Nitrogen 50 mg/dL (7-18) H Creatinine 5.9 MG/DL (0.55-1.30) H Estimat Glomerular Filtration Rate 8.5 mL/min (>60) Glucose Level 66 MG/DL (74-106) L Calcium Level 8.1 MG/DL (8.5-10.1) L Phosphorus Level 4.7 MG/DL (2.5-4.9) Magnesium Level 1.7 MG/DL (1.8-2.4) L Random Vancomycin Level 22.6 ug/mL Microbiology Date/Time Source Procedure Growth Status 06/30/18 18:55 Blood Blood Culture - Preliminary NO GROWTH AFTER 48 HOURS Resulted 06/30/18 12:20 Body Fluid Gram Stain - Final Resulted 06/30/18 12:20 Body Fluid Body Fluid Culture - Preliminary NO GROWTH Resulted 07/01/18 11:00 Sputum AFB Specimen Processing Tissue - Final Resulted 07/01/18 11:00 Sputum Acid Fast Bacilli Smear - Final Resulted 07/01/18 11:00 Sputum Acid Fast Bacilli Culture Pending Resulted Clarisse Daley MD Jul 03, 2018 08:46
[2018-07-03] MEDS: Aspirin Baby 81mg ORAL SCH (09:00)
[2018-07-03] MEDS: Heparin 5000 units/ml inj SUBQ SCH ×2 (09:00→20:37)
[2018-07-03] MEDS: Dextrose 10%/.45 SOD CHL 1,000 ML IV SCH ×2 (09:00→23:37)
--- NOTE | 2018-07-03 09:24 | NUR ---
Patient failed weaning. Placed on PS 8 PEEP +5 for 3 minutes. Placed back on previous settings.
--- NOTE | 2018-07-03 09:30 | NUR ---
NURSE NOTES: Weaning process not tolerated ,placed back to assist control mode.
--- NOTE | 2018-07-03 09:54 | Podiatric Progress Note ---
Assessment/Plan Patient Evita Jorge is a 72 year old female who was admitted on Jun 13, 2018 at 01: 43 with Problems: (1) Anemia of chronic disease (2) Bilateral pleural effusion (3) Peripheral vascular disease (4) DM2 (diabetes mellitus, type 2) (5) Left heel unstageable pressure ulcer with black eschar adhered to wound bed (6) acute on chronic anemia Assessment/Plan L heel ulcer is healing well continue Vac. patient will be followed. Subjective Allergies: Coded Allergies: BENAZEPRIL (Verified Allergy, Unknown, 06/12/18) CODEINE (Verified Allergy, Unknown, 06/12/18) INSULIN ASPART (Verified Allergy, Unknown, 06/12/18) INSULIN DETEMIR (Verified Allergy, Unknown, 06/12/18) OPIOIDS - MORPHINE ANALOGUES (Verified Allergy, Unknown, 06/12/18) Subjective Patient is seen by bed side in ICU f/u L heel wound. Vac has been applied at 75 mmhg pressure. Objective Exam Last 24 Hour Vital Signs Date Time Temp Pulse Resp B/P (MAP) Pulse Ox O2 Delivery O2 Flow Rate FiO2 07/03/18 09:23 74 17 28 07/03/18 09:20 74 22 28 07/03/18 09:00 72 16 115/41 (65) 99 72 07/03/18 08:00 72 07/03/18 08:00 97.7 72 16 117/41 (66) 100 72 07/03/18 08:00 Mechanical Ventilator 07/03/18 07:13 77 17 28 07/03/18 07:00 71 15 116/42 (66) 100 07/03/18 06:00 70 15 108/48 (68) 100 07/03/18 05:19 72 18 28 07/03/18 05:00 79 16 110/50 (70) 100 07/03/18 04:00 Mechanical Ventilator 07/03/18 04:00 98.6 71 18 107/45 (65) 100 07/03/18 04:00 81 07/03/18 03:11 75 17 28 07/03/18 03:00 72 15 113/38 (63) 100 07/03/18 02:00 71 18 116/32 (60) 100 07/03/18 01:28 73 17 28 07/03/18 01:00 73 17 113/59 (77) 100 07/03/18 00:00 99.6 75 16 110/35 (60) 100 07/03/18 00:00 78 07/03/18 00:00 Mechanical Ventilator 07/02/18 23:34 80 20 28 07/02/18 23:00 78 18 121/63 (82) 99 07/02/18 22:00 79 16 101/50 (67) 100 07/02/18 21:29 73 18 28 07/02/18 21:00 74 15 97/29 (51) 100 07/02/18 20:00 28 07/02/18 20:00 75 07/02/18 20:00 Mechanical Ventilator 07/02/18 20:00 98.8 73 16 104/33 (56) 100 07/02/18 19:17 81 18 28 07/02/18 19:00 83 18 110/44 (66) 100 07/02/18 18:45 110/36 07/02/18 18:30 76 15 110/36 (60) 99 07/02/18 18:00 76 17 112/41 (64) 100 07/02/18 17:30 77 17 112/41 (64) 99 07/02/18 17:00 77 18 110/36 (60) 100 07/02/18 16:53 75 15 28 07/02/18 16:30 77 17 118/44 (68) 99 07/02/18 16:00 72 07/02/18 16:00 Mechanical Ventilator 07/02/18 16:00 74 16 118/44 (68) 99 07/02/18 15:30 74 16 102/43 (62) 99 07/02/18 15:07 74 17 28 07/02/18 15:00 73 15 113/39 (63) 99 07/02/18 14:30 72 15 113/39 (63) 99 07/02/18 14:00 72 15 110/39 (62) 100 07/02/18 13:30 72 15 141/30 (67) 100 07/02/18 13:10 73 17 28 07/02/18 13:00 71 15 107/38 (61) 100 07/02/18 12:47 40.0 07/02/18 12:30 70 14 108/38 (61) 100 07/02/18 12:00 Mechanical Ventilator 07/02/18 12:00 99.0 71 15 113/38 (63) 99 07/02/18 12:00 81 07/02/18 11:30 77 15 99 07/02/18 11:06 82 15 28 07/02/18 11:00 82 15 131/50 (77) 99 07/02/18 10:30 81 15 135/50 (78) 99 07/02/18 10:00 80 15 119/42 (67) 100 Laboratory Tests Test 07/02/18 10:50 07/03/18 05:00 White Blood Count 6.2 K/UL (4.8-10.8) Red Blood Count 3.68 M/UL (4.20-5.40) L Hemoglobin 9.8 G/DL (12.0-16.0) L Hematocrit 31.1 % (37.0-47.0) L Mean Corpuscular Volume 85 FL (80-99) Mean Corpuscular Hemoglobin 26.6 PG (27.0-31.0) L Mean Corpuscular Hemoglobin Concent 31.4 G/DL (32.0-36.0) L Red Cell Distribution Width 14.5 % (11.6-14.8) Platelet Count 109 K/UL (150-450) L Mean Platelet Volume 8.8 FL (6.5-10.1) Neutrophils (%) (Auto) 64.8 % (45.0-75.0) Lymphocytes (%) (Auto) 18.8 % (20.0-45.0) L Monocytes (%) (Auto) 11.0 % (1.0-10.0) H Eosinophils (%) (Auto) 4.0 % (0.0-3.0) H Basophils (%) (Auto) 1.4 % (0.0-2.0) Sodium Level 133 MMOL/L (136-145) L Potassium Level 4.0 MMOL/L (3.5-5.1) Chloride Level 99 MMOL/L (98-107) Carbon Dioxide Level 23 MMOL/L (21-32) Anion Gap 11 mmol/L (5-15) Blood Urea Nitrogen 50 mg/dL (7-18) H Creatinine 5.9 MG/DL (0.55-1.30) H Estimat Glomerular Filtration Rate 8.5 mL/min (>60) Glucose Level 66 MG/DL (74-106) L Calcium Level 8.1 MG/DL (8.5-10.1) L Phosphorus Level 4.7 MG/DL (2.5-4.9) Magnesium Level 1.7 MG/DL (1.8-2.4) L Random Vancomycin Level 22.6 ug/mL Microbiology Date/Time Source Procedure Growth Status 06/30/18 18:55 Blood Blood Culture - Preliminary NO GROWTH AFTER 48 HOURS Resulted 06/30/18 12:20 Body Fluid Gram Stain - Final Resulted 06/30/18 12:20 Body Fluid Body Fluid Culture - Preliminary NO GROWTH Resulted 06/14/18 10:50 Other Gram Stain - Final Complete 06/14/18 10:50 Wound Culture - Final Pseudomonas Aeruginosa Morganella Morg Spp Morganii Streptococcus Group B Complete 07/01/18 11:00 Sputum AFB Specimen Processing Tissue - Final Resulted 07/01/18 11:00 Sputum Acid Fast Bacilli Smear - Final Resulted 07/01/18 11:00 Sputum Acid Fast Bacilli Culture Pending Resulted 06/14/18 10:50 Stool Clostridium difficile Toxin Assay - Final Complete 06/13/18 03:00 Rectum VRE Culture - Final Enterococcus Faecium - Vre Complete Dermatological Dermatological Narrative L leg was examined after removing Vac sponge. wound looks smaller and healing compare to previous visit. base of the wound is beefy, granulating with no sign of pus or cellulitis. Joaquin Coats DPM Jul 03, 2018 09:54
--- NOTE | 2018-07-03 10:00 | NUR ---
NURSE NOTES: With ongoing Hemodialysis,,tolerated well,no signs of any distress presented.Wound care nurse at bedside,wound vac to LT foot and drsg changed.
--- NOTE | 2018-07-03 10:41 | Infectious Diseases Prog Note ---
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 renal failure 3. diabetes mellitus 4. hypertension 5. rectal VRE colonization 6. shock 7. pneumonia 8. mucous plugging s/p bronchoscopy P 1. continue vancomycin iv, meropenem 2. will follow up cultures Subjective ROS Limited/Unobtainable: Yes Allergies: Coded Allergies: BENAZEPRIL (Verified Allergy, Unknown, 06/12/18) CODEINE (Verified Allergy, Unknown, 06/12/18) INSULIN ASPART (Verified Allergy, Unknown, 06/12/18) INSULIN DETEMIR (Verified Allergy, Unknown, 06/12/18) OPIOIDS - MORPHINE ANALOGUES (Verified Allergy, Unknown, 06/12/18) Objective Vital Signs Last 24 Hour Vital Signs Date Time Temp Pulse Resp B/P (MAP) Pulse Ox O2 Delivery O2 Flow Rate FiO2 07/03/18 09:59 98 07/03/18 09:23 74 17 28 07/03/18 09:20 74 22 28 07/03/18 09:00 72 16 115/41 (65) 99 72 07/03/18 08:00 72 07/03/18 08:00 97.7 72 16 117/41 (66) 100 72 07/03/18 08:00 Mechanical Ventilator 07/03/18 07:13 77 17 28 07/03/18 07:00 71 15 116/42 (66) 100 07/03/18 06:00 70 15 108/48 (68) 100 07/03/18 05:19 72 18 28 07/03/18 05:00 79 16 110/50 (70) 100 07/03/18 04:00 Mechanical Ventilator 07/03/18 04:00 98.6 71 18 107/45 (65) 100 07/03/18 04:00 81 07/03/18 03:11 75 17 28 07/03/18 03:00 72 15 113/38 (63) 100 07/03/18 02:00 71 18 116/32 (60) 100 07/03/18 01:28 73 17 28 07/03/18 01:00 73 17 113/59 (77) 100 07/03/18 00:00 99.6 75 16 110/35 (60) 100 07/03/18 00:00 78 07/03/18 00:00 Mechanical Ventilator 07/02/18 23:34 80 20 28 07/02/18 23:00 78 18 121/63 (82) 99 07/02/18 22:00 79 16 101/50 (67) 100 07/02/18 21:29 73 18 28 07/02/18 21:00 74 15 97/29 (51) 100 07/02/18 20:00 28 07/02/18 20:00 75 07/02/18 20:00 Mechanical Ventilator 07/02/18 20:00 98.8 73 16 104/33 (56) 100 07/02/18 19:17 81 18 28 07/02/18 19:00 83 18 110/44 (66) 100 07/02/18 18:45 110/36 07/02/18 18:30 76 15 110/36 (60) 99 07/02/18 18:00 76 17 112/41 (64) 100 07/02/18 17:30 77 17 112/41 (64) 99 07/02/18 17:00 77 18 110/36 (60) 100 07/02/18 16:53 75 15 28 07/02/18 16:30 77 17 118/44 (68) 99 07/02/18 16:00 72 07/02/18 16:00 Mechanical Ventilator 07/02/18 16:00 74 16 118/44 (68) 99 07/02/18 15:30 74 16 102/43 (62) 99 07/02/18 15:07 74 17 28 07/02/18 15:00 73 15 113/39 (63) 99 07/02/18 14:30 72 15 113/39 (63) 99 07/02/18 14:00 72 15 110/39 (62) 100 07/02/18 13:30 72 15 141/30 (67) 100 07/02/18 13:10 73 17 28 07/02/18 13:00 71 15 107/38 (61) 100 07/02/18 12:47 40.0 07/02/18 12:30 70 14 108/38 (61) 100 07/02/18 12:00 Mechanical Ventilator 07/02/18 12:00 99.0 71 15 113/38 (63) 99 07/02/18 12:00 81 07/02/18 11:30 77 15 99 07/02/18 11:06 82 15 28 07/02/18 11:00 82 15 131/50 (77) 99 Height (Feet): 5 Height (Inches): 6.00 Weight (Pounds): 201 HEENT: other - intubated Respiratory/Chest: lungs clear Cardiovascular: normal rate, regular rhythm, no gallop/murmur Abdomen: soft, non tender Extremities: other - left leg edema, heel ulcer, left arm PICC Microbiology Date/Time Source Procedure Growth Status 06/30/18 18:55 Blood Blood Culture - Preliminary NO GROWTH AFTER 48 HOURS Resulted 06/30/18 12:20 Body Fluid Gram Stain - Final Resulted 06/30/18 12:20 Body Fluid Body Fluid Culture - Preliminary NO GROWTH AFTER 48 HOURS Resulted 07/01/18 11:00 Sputum AFB Specimen Processing Tissue - Final Resulted 07/01/18 11:00 Sputum Acid Fast Bacilli Smear - Final Resulted 07/01/18 11:00 Sputum Acid Fast Bacilli Culture Pending Resulted Laboratory Tests Test 07/02/18 10:50 07/03/18 05:00 White Blood Count 6.2 K/UL (4.8-10.8) Red Blood Count 3.68 M/UL (4.20-5.40) L Hemoglobin 9.8 G/DL (12.0-16.0) L Hematocrit 31.1 % (37.0-47.0) L Mean Corpuscular Volume 85 FL (80-99) Mean Corpuscular Hemoglobin 26.6 PG (27.0-31.0) L Mean Corpuscular Hemoglobin Concent 31.4 G/DL (32.0-36.0) L Red Cell Distribution Width 14.5 % (11.6-14.8) Platelet Count 109 K/UL (150-450) L Mean Platelet Volume 8.8 FL (6.5-10.1) Neutrophils (%) (Auto) 64.8 % (45.0-75.0) Lymphocytes (%) (Auto) 18.8 % (20.0-45.0) L Monocytes (%) (Auto) 11.0 % (1.0-10.0) H Eosinophils (%) (Auto) 4.0 % (0.0-3.0) H Basophils (%) (Auto) 1.4 % (0.0-2.0) Sodium Level 133 MMOL/L (136-145) L Potassium Level 4.0 MMOL/L (3.5-5.1) Chloride Level 99 MMOL/L (98-107) Carbon Dioxide Level 23 MMOL/L (21-32) Anion Gap 11 mmol/L (5-15) Blood Urea Nitrogen 50 mg/dL (7-18) H Creatinine 5.9 MG/DL (0.55-1.30) H Estimat Glomerular Filtration Rate 8.5 mL/min (>60) Glucose Level 66 MG/DL (74-106) L Calcium Level 8.1 MG/DL (8.5-10.1) L Phosphorus Level 4.7 MG/DL (2.5-4.9) Magnesium Level 1.7 MG/DL (1.8-2.4) L Random Vancomycin Level 22.6 ug/mL Current Medications Medications (Trade) Dose Ordered Sig/Andre Route PRN Reason Start Time Stop Time Status Last Admin Dose Admin Acetaminophen (Tylenol) 500 mg Q6H PRN ORAL Mild Pain/Temp > 100.5 06/28/18 20:00 07/28/18 19:59 07/01/18 00:32 Aspirin (ASA) 81 mg DAILY ORAL 06/29/18 09:00 07/13/18 08:59 07/01/18 08:57 Chlorhexidine Gluconate (Fabiola-Hex 2%) 1 applic DAILY@2000 TOPIC 06/28/18 20:00 07/18/18 19:59 07/02/18 20:00 Collagenase (Santyl) 1 applic DAILY TOPIC 06/29/18 09:00 07/13/18 08:59 07/02/18 09:14 Dextrose (Dextrose 50%) 25 ml Q30M PRN IV Hypoglycemia 06/28/18 18:45 07/17/18 20:14 07/02/18 23:31 Dextrose (Dextrose 50%) 50 ml Q30M PRN IV Hypoglycemia 06/28/18 18:45 07/17/18 20:14 06/30/18 05:31 Dextrose/Sodium Chloride 1,000 ml @ 30 mls/hr Q24H IV 06/30/18 09:00 07/30/18 08:59 07/02/18 09:13 Dobutamine HCl 500 mg/Sodium Chloride 250 ml @ 0 mls/hr Q24H IV 07/03/18 09:00 08/02/18 08:59 Dopamine HCl/ Dextrose 250 ml @ 0 mls/hr Q24H IV 06/28/18 18:45 07/28/18 18:44 07/01/18 11:41 Heparin Sodium (Porcine) (Heparin 5000 units/ml) 5,000 units EVERY 12 HOURS SUBQ 06/28/18 21:00 07/13/18 08:59 07/02/18 21:17 Insulin Aspart (NovoLOG) BEFORE MEALS AND HS SUBQ 06/28/18 21:00 07/17/18 20:59 Lorazepam (Ativan 2mg/ml 1ml) 1 mg Q3H PRN IV For Anxiety 07/01/18 11:59 07/08/18 11:58 07/01/18 17:15 Meropenem 500 mg/ Sodium Chloride 55 ml @ 110 mls/hr Q24H IVPB 06/29/18 14:00 07/25/18 13:59 07/02/18 14:56 Pantoprazole (Protonix) 40 mg ACBREAKFAST ORAL 06/29/18 06:30 07/27/18 06:29 07/02/18 06:11 Vancomycin HCl (Vanco rx to dose) 1 ea DAILY PRN MISC Per rx protocol 06/29/18 08:15 07/29/18 08:14 Naya Cain MD Jul 03, 2018 10:41"
--- NOTE | 2018-07-03 11:09 | NUR ---
RESPIRATORY NOTE: Received pt on current vent settings. Pt endotracheal tube is patent and secured. No resp distress noted. Sx'd pt prn. Vent alarms are on and audible. Vent is plugged into red outlet. Will monitor pt progress.
[2018-07-03] MEDS: DOBUTamine Inj 500 MG in NS 210 ML IV SCH ×2 (11:28→21:10)
--- NOTE | 2018-07-03 11:32 | NUR ---
CASE MANAGEMENT: REVIEW SI: ESRD ON HD . BILATERAL PLEURAL EFFUSION . MUCOUS PLUGGING . PERSISTENT LEFT LUNG COLLAPSE BRONCHOSCOPY 07/01 T 99.6 HR 72 RR 16 BP 107/45 SAT 99% MECH VENT FIO2 28 IS: DOBUTAMINE IV Q24HR MEROPENEM IV Q24HR ASA PO QD PROTONIX PO QD DOPAMINE IV Q24HR NPO STEP DOWN UNIT STATUS DCP: PATIENT IS FROM [facility]
--- NOTE | 2018-07-03 12:45 | NUR ---
NURSE NOTES: Ongoing Hemodialysis done took out 2L,procedure tolerated,no distress presented..
[2018-07-03] MEDS: Meropenem 500 MG in NS 55 ML IVPB SCH (14:00)
--- NOTE | 2018-07-03 14:27 | NUR ---
RD ASSESSMENT & RECOMMENDATIONS SEE CARE ACTIVITY FOR COMPLETE ASSESSMENT DAILY ESTIMATED NEEDS: Needs based on ESRD on HD, Wounds, CRITICAL CARE, (Adj Wt 62kg) 25-30 kcals/kg 8069-0693 total kcals 1.25-2 g protein/kg 76-124 g total protein Fluid per MD, on HD NUTRITION DIAGNOSIS: 1) Increased kcal, pro needs R/T wound healing and renal dysfunction as evidenced by pt w/ open left heel, sacral, and lt ischial wounds, w/ ESRD on HD. 2) Swallowing difficulty R/T respiratory status as evidenced by s/p code blue, orally intubated, NPO at this time. CURRENT DIET:NPO PO DIET RECOMMENDATIONS: RESEARCH ADVISOR EVAL POST EXTUBATION -> RENAL, CCHO MED ENTERAL NUTRITION RECOMMENDATIONS: NEPRO @40ml/hr x24 hrs + Prosource 1pkt QD to provide 960ml, 1728 kcal, 78g + 11g prot, 698ml free H2O - Rec to obtain GI access, start TF. - Start NEPRO @ 10ml/hr for 6 hrs. Advance as tolerated 10ml every 4-6 hrs to goal - Flush per MD. HOB over 30 degrees. ADDITIONAL RECOMMENDATIONS: 1) Wound healing: Add Dimitry 1pkt BID 2) Obtain dry wt post HD on a calibrated bed scale 3) Monitor lytes- mag low at this time, on repletion 4) RESEARCH ADVISOR eval post extubation . .
--- NOTE | 2018-07-03 15:42 | NUR ---
NURSE NOTES:WOUND CARE FOLLOW-UP NOTES: Pt seen along with . NPWT removed for Md to assess L heel wound. Wound bed granular,edges adherent. Orders received to continue NPWT as ordered .Wound cleansed with Saline .Skin Barrier wipes applied periwound and draped with transparent drsg .Granulofoam packing applied to wound then draped to dorsal aspect of L foot. NPWT resumed to continuous settings 75mm/Hg. ABD pad placed between Vac tubing and skin to minimize pressure to skin.L foot then wrapped with kerlix drsg.
[2018-07-03] MEDS ORDERED: Atropine Inj 1mg/10ml Syr ONE (16:38)
--- NOTE | 2018-07-03 17:00 | NUR ---
NURSE NOTES: Pt BS low 65,given D50 1 amp IV,will continue to monitor BS ,1800, Recheck BS 99,pt resting quietly in bed, no distress noted.
[2018-07-03] MEDS: DOPamine 400mg/250ml 250 ML IV SCH (18:45)
--- NOTE | 2018-07-03 19:17 | NUR ---
HAND-OFF: Report given to Cherelle Santos RN.
--- NOTE | 2018-07-03 19:25 | NUR ---
NURSE NOTES: Report received from Edilma NATION. Pt awake and alert. Pt intubated ETT 7.5, 23 cm at the lipline, AC 15, TV 500, fiO2 28%, PEEP of 5. Pt. RADHA AV shunt noted and RADHA Mid-line intact. D10 1/2NS @ 30 cc/hr and Dopamine gtt at 5mcg/kg/HR. Pt. Hemodynamically unstable. Safety measures in place with bed locked and in lowest position, side rails x2 up and bed alarm activated, Patient has generalized edema. Wound vacuum noted on L foot covered with dressing. 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 Will continue to monitor.
[2018-07-03] MEDS: Dyna-Hex 2% Top Sol 2oz TOPIC SCH (20:36)
[2018-07-04] VITALS (41 sets, daily range): BP systolic 79–133; BP diastolic 33–80
[2018-07-04] MEDS ORDERED: DOBUTAMINE IV ONE (05:24)
[2018-07-04] MEDS: NovoLOG Insulin Flexpen SUBQ SCH ×4 (05:37→20:53)
[2018-07-04] MEDS: DOBUTamine Inj 500 MG in NS 210 ML IV SCH ×2 (05:39→15:29)
--- NOTE | 2018-07-04 07:29 | NUR ---
HAND-OFF: Report given to CHAPIS Campa. Patient in bed resting stable at hand off.
--- NOTE | 2018-07-04 07:30 | NUR ---
NURSE NOTES: Report received from CHAPIS Villarreal. Sinus rhythm on corporate communications manager in 90's. Pt is sleeping in bad. Able to wake up easily. Oriented x2-3. Able to express needs and able to follow commands. ETT 7.5 at 20 cm lip line. AC 15, TV 500, FiO2 28%, P 5. No reparatory distress noted. O2 sat 100%. Kept NPO as per order. Right BKA and Left heel with wound vac dressing noted. Right AV shunt for HD. Left UA midline patent and asymptomatic. D10 1/2NS is running at 30cc/hr. Pt is on Dobutamine 5mcg/kg/min. Bed in lowest position. Side rails up x3. Will resume plan of care.
--- NOTE | 2018-07-04 07:54 | Nephrology Progress Note ---
Assessment/Plan Plan MOF Intubated. B Pleural effusion Anasarca decreasing. Daily HD/UF. Try to wean + extubate Subjective Subjective On Vent. No events overnight. Objective Objective Last 24 Hour Vital Signs Date Time Temp Pulse Resp B/P (MAP) Pulse Ox O2 Delivery O2 Flow Rate FiO2 07/04/18 07:14 97 16 28 07/04/18 07:00 97 18 111/60 (77) 100 07/04/18 06:00 98 17 114/41 (65) 100 07/04/18 05:18 99 18 28 07/04/18 05:00 98 18 109/76 (87) 100 07/04/18 04:00 99.2 100 19 99/62 (74) 100 07/04/18 04:00 28 07/04/18 04:00 Mechanical Ventilator 07/04/18 04:00 99 07/04/18 03:00 99 18 108/36 (60) 100 07/04/18 02:59 99 18 28 07/04/18 02:00 100 18 103/36 (58) 100 07/04/18 01:19 101 16 28 07/04/18 01:00 101 18 101/36 (57) 100 07/04/18 00:00 102 07/04/18 00:00 28 07/04/18 00:00 Mechanical Ventilator 07/04/18 00:00 99.0 103 19 98/36 (56) 100 07/03/18 23:30 103 20 28 07/03/18 23:00 103 19 115/40 (65) 100 07/03/18 22:00 103 18 104/45 (64) 99 07/03/18 21:30 84 16 28 07/03/18 21:00 91 16 70/34 (46) 99 07/03/18 20:00 102 07/03/18 20:00 28 07/03/18 20:00 Mechanical Ventilator 07/03/18 20:00 99.5 103 20 100/82 (88) 99 07/03/18 19:30 103 20 28 07/03/18 19:00 105 14 101/42 (61) 99 105 07/03/18 18:00 108 20 108/46 (66) 99 108 07/03/18 17:11 101 21 28 07/03/18 17:03 109 17 109/52 (71) 100 109 07/03/18 16:00 Mechanical Ventilator 07/03/18 16:00 98.8 111 20 99/36 (57) 100 111 07/03/18 16:00 110 07/03/18 15:00 111 18 93/43 (60) 96 111 07/03/18 14:52 76 18 28 07/03/18 14:00 112 104/54 (71) 07/03/18 13:00 115 18 114/53 (73) 98 93 07/03/18 12:41 73 18 28 07/03/18 12:00 Mechanical Ventilator 07/03/18 12:00 118 16 114/53 (73) 99 07/03/18 12:00 120 07/03/18 11:09 75 17 28 07/03/18 09:59 98 07/03/18 09:23 74 17 28 07/03/18 09:20 74 22 28 07/03/18 09:00 72 16 115/41 (65) 99 72 07/03/18 08:00 72 07/03/18 08:00 97.7 72 16 117/41 (66) 100 72 07/03/18 08:00 Mechanical Ventilator Intake and Output 07/03/18 07/04/18 19:00 07:00 Intake Total 2567.02 ml 420.37 ml Output Total 2001 ml 0 ml Balance 566.02 ml 420.37 ml IV Total 567.02 ml 420.37 ml Hemodialysis 2000 ml Output Urine Total 0 ml 0 ml Stool Total 1 ml Hemodialysis UF 2000 ml # Bowel Movements 1 Laboratory Tests 07/04/18 03:35: Random Vancomycin Level 22.8 07/04/18 07:35: Arterial Blood pH 7.494H, Arterial Blood Partial Pressure CO2 39.5, Arterial Blood Partial Pressure O2 72.0L, Arterial Blood HCO3 29.7H, Arterial Blood Oxygen Saturation 95.1, Arterial Blood Base Excess 6.0H, Nicola Test Positive Height (Feet): 5 Height (Inches): 6.00 Weight (Pounds): 240 Objective Intubated + on vent Blind Cv RR Lungs more air movement L Lung. Abd SNT. BS + E Rt AKA stump clean. Lt. heel ulcer. Lethargic but easily arouseable Brenda Fuller MD Jul 04, 2018 07:54
[2018-07-04] MEDS ORDERED: Heparin Sod 1000 units/ml 10ml IV PRN (08:30)
[2018-07-04] MEDS: Aspirin Baby 81mg ORAL SCH (09:00)
[2018-07-04] MEDS: Heparin 5000 units/ml inj SUBQ SCH ×2 (09:00→20:54)
--- NOTE | 2018-07-04 09:30 | NUR ---
NURSE NOTES: Turned and repositioned pt. Oral care done. Pt is able to express needs. Attended all needs.
--- NOTE | 2018-07-04 09:45 | NUR ---
RD ASSESSMENT & RECOMMENDATIONS SEE CARE ACTIVITY FOR COMPLETE ASSESSMENT DAILY ESTIMATED NEEDS: Needs based on ESRD on HD, Wounds, CRITICAL CARE (Adj Wt 62kg) 24-30 kcals/kg 3191-3463 total kcals 1.25-2 g protein/kg 76-124 g total protein Fluid per MD, on HD mL/kg . total fluid mLs NUTRITION DIAGNOSIS: 1) Increased kcal, pro needs R/T wound healing and renal dysfunction as evidenced by pt w/ open left heel now w/ wound vac, sacral and lt ischial wounds, w/ ESRD on HD. 2) Swallowing difficulty R/T respiratory status as evidenced by s/p code blue, orally intubated, NPO at this time, w/ an order for NGT insertion for TF. CURRENT DIET:NPO CURRENT TF: NPO PO DIET RECOMMENDATIONS: CIVIL PROJECT ENGINEER EVAL POST EXTUBATION -> RENAL, CCHO MED ENTERAL NUTRITION RECOMMENDATIONS: NEPRO @ 35ml/hr x24 hrs + Prosource 1pkt BID to provide 840ml, 1512kcal, 68g + 22g prot, 625ml free H2O - Once w/ GI access, initiate Nepro @ 10ml/hr x 6 hrs. - Advance as tolerated 10ml every 4-6 hrs to goal - Flush per MD/HOB over 30 degrees. ADDITIONAL RECOMMENDATIONS: 1) Wound healing: Add Dimitry 1pkt BID 2) Obtain dry wt post HD on a calibrated bed scale 3) Monitor lytes- mag low at this time, on repletion 4) CIVIL PROJECT ENGINEER eval post extubation 5) DC D10 once TF @ goal to prevent hyperglycemia .
--- NOTE | 2018-07-04 10:39 | Diagnostic Imaging Report ---
Indication: NG tube placement Comparison: None Single view of the abdomen obtained Findings: NG tube is projected over distended air-filled stomach in good position. Bowel gas pattern is nonspecific. IMPRESSION: NG tube in good position
--- NOTE | 2018-07-04 11:05 | NUR ---
NURSE NOTES: RT started weaning with SIMV, PS 8. No respiratory distress noted. Will continue to monitor.
--- NOTE | 2018-07-04 11:28 | Diagnostic Imaging Report ---
Indication: Dyspnea Comparison: 07/02/2018 A single view chest radiograph was obtained. Findings: Moderate-sized bilateral pleural densities are demonstrated larger on the left compared to the right. This appears stable compared to the exam from 2 days earlier. Heart size is stable. There is mild congestion demonstrated. Endotracheal tube and nasogastric tubes appear satisfactory and stable. IMPRESSION: Bilateral pleural effusions without significant change. Mild CHF
--- NOTE | 2018-07-04 11:52 | General Progress Note ---
Assessment/Plan Problem List: (1) Encephalopathy acute ICD Codes: G93.40 - Encephalopathy, unspecified SNOMED: [id number], [id number] Status: unchanged Assessment/Plan the pt lacks capacity to refuse medications the pt lacks capacity to leave ama haldol prn soft restraints as needed Subjective Date patient seen: Jul 04, 2018 Neurologic/Psychiatric: Reports: anxiety, depressed Allergies: Coded Allergies: BENAZEPRIL (Verified Allergy, Unknown, 06/12/18) CODEINE (Verified Allergy, Unknown, 06/12/18) INSULIN ASPART (Verified Allergy, Unknown, 06/12/18) INSULIN DETEMIR (Verified Allergy, Unknown, 06/12/18) OPIOIDS - MORPHINE ANALOGUES (Verified Allergy, Unknown, 06/12/18) Subjective the pt is somewhat lethargic and cont to waxes and wanes. the pt is confused and disoriented. the pt has memory impairment. the pt has episodes of agitation Objective Last 24 Hour Vital Signs Date Time Temp Pulse Resp B/P (MAP) Pulse Ox O2 Delivery O2 Flow Rate FiO2 07/04/18 11:05 28 07/04/18 11:00 Mechanical Ventilator 07/04/18 10:51 96 20 28 07/04/18 10:00 96 16 126/47 (73) 100 07/04/18 09:30 96 17 122/49 (73) 100 07/04/18 09:17 86 15 28 07/04/18 09:00 96 18 79/33 (48) 100 07/04/18 08:30 97 17 116/48 (70) 100 07/04/18 08:00 Mechanical Ventilator 07/04/18 08:00 99.4 97 17 118/53 (74) 100 07/04/18 07:30 97 17 117/43 (67) 100 07/04/18 07:14 97 16 28 07/04/18 07:00 97 18 111/60 (77) 100 07/04/18 06:00 98 17 114/41 (65) 100 07/04/18 05:18 99 18 28 07/04/18 05:00 98 18 109/76 (87) 100 07/04/18 04:00 99.2 100 19 99/62 (74) 100 07/04/18 04:00 28 07/04/18 04:00 Mechanical Ventilator 07/04/18 04:00 99 07/04/18 03:00 99 18 108/36 (60) 100 07/04/18 02:59 99 18 28 07/04/18 02:00 100 18 103/36 (58) 100 07/04/18 01:19 101 16 28 07/04/18 01:00 101 18 101/36 (57) 100 07/04/18 00:00 102 07/04/18 00:00 28 07/04/18 00:00 Mechanical Ventilator 07/04/18 00:00 99.0 103 19 98/36 (56) 100 07/03/18 23:30 103 20 28 07/03/18 23:00 103 19 115/40 (65) 100 07/03/18 22:00 103 18 104/45 (64) 99 07/03/18 21:30 84 16 28 07/03/18 21:00 91 16 70/34 (46) 99 07/03/18 20:00 102 07/03/18 20:00 28 07/03/18 20:00 Mechanical Ventilator 07/03/18 20:00 99.5 103 20 100/82 (88) 99 07/03/18 19:30 103 20 28 07/03/18 19:00 105 14 101/42 (61) 99 105 07/03/18 18:00 108 20 108/46 (66) 99 108 07/03/18 17:11 101 21 28 07/03/18 17:03 109 17 109/52 (71) 100 109 07/03/18 16:00 Mechanical Ventilator 07/03/18 16:00 98.8 111 20 99/36 (57) 100 111 07/03/18 16:00 110 07/03/18 15:00 111 18 93/43 (60) 96 111 07/03/18 14:52 76 18 28 07/03/18 14:00 112 104/54 (71) 07/03/18 13:00 115 18 114/53 (73) 98 93 07/03/18 12:41 73 18 28 07/03/18 12:00 Mechanical Ventilator 07/03/18 12:00 118 16 114/53 (73) 99 07/03/18 12:00 120 Intake and Output 07/03/18 07/04/18 19:00 07:00 Intake Total 2567.02 ml 440.37 ml Output Total 2001 ml 0 ml Balance 566.02 ml 440.37 ml IV Total 567.02 ml 440.37 ml Hemodialysis 2000 ml Output Urine Total 0 ml 0 ml Stool Total 1 ml Hemodialysis UF 2000 ml # Bowel Movements 1 Laboratory Tests 07/04/18 03:35: Random Vancomycin Level 22.8 07/04/18 07:35: Arterial Blood pH 7.494H, Arterial Blood Partial Pressure CO2 39.5, Arterial Blood Partial Pressure O2 72.0L, Arterial Blood HCO3 29.7H, Arterial Blood Oxygen Saturation 95.1, Arterial Blood Base Excess 6.0H, Nicola Test Positive Height (Feet): 5 Height (Inches): 6.00 Weight (Pounds): 240 General Appearance: lethargic - waxing and waning , confused Neurologic: disoriented, depressed affect Abelardo Yadav MD Jul 04, 2018 11:52
--- NOTE | 2018-07-04 12:03 | NUR ---
NURSE NOTES: D50 25ml given for BS 66 as per protocol. Will recheck BS.
--- NOTE | 2018-07-04 13:55 | NUR ---
NURSE NOTES: Pt is tolerating CPAP with PS 8. ABG drawn. Notified Dr Rolon regarding ABG result. Order to extubate pt tomorrow AM after ABG received, noted, and carried out.
--- NOTE | 2018-07-04 14:00 | NUR ---
CASE MANAGEMENT: REVIEW SI: ESRD ON HD . BILATERAL PLEURAL EFFUSION . ENCEPHALOPATHY . INTUBATED BRONCHOSCOPY 07/01 T 99.4 HR 97 RR 17 BP 79/33 SAT 100% MECH VENT FIO2 28 ABG: PH 7.400 PCO2 47.2 PO2 82.8 HCO3 29.0 O2 SAT 95.6 IS: DOBUTAMINE IV Q24HR MEROPENEM IV Q24HR ASA PO QD PROTONIX PO QD DOPAMINE IV Q24HR HEMODIALYSIS PRN NPO STEP DOWN UNIT STATUS DCP: PATIENT IS FROM [facility]
--- NOTE | 2018-07-04 14:05 | Critical Care Progress Note ---
Assessment/Plan Assessment/Plan IMPRESSION: 1. Respiratory failure, acute. 2. Evidence of hypercapnia. 3. Evidence of metabolic acidosis. 4. Evidence of pleural effusion. s/p tap 5. End-stage renal disease. 6. Elevated troponin. 7. Possible demand ischemia. 8. Severe protein-calorie malnutrition. 9. Hyponatremia. 10. Hyperkalemia. 11. Anemia. 12. Thrombocytopenia. 13. Mild coagulopathy. 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 15. mucous plugging s/p bronch PLAN extubate weaning ABG noted maintain ICU care overnight CPT and mucomyst vent management and try to wean today respiratory care monitor fluid results ? need for repeat Tap close follow up in ICU for now monitor for imaging and change as needed medications/laboratory data/nursing notes/ICU care reviewed in detail note reviewed and edited care discussed with RN and RT ICU time spent 40 minutes Critical Care - Subjective Interval Events: seen earlier alert cxr without change checked with RN tolerating wean well ROS Limited/Unobtainable: Yes Condition: critical EKG Rhythm: Sinus Rhythm I&O: Intake and Output 07/03/18 07/04/18 19:00 07:00 Intake Total 2567.02 ml 440.37 ml Output Total 2001 ml 0 ml Balance 566.02 ml 440.37 ml IV Total 567.02 ml 440.37 ml Hemodialysis 2000 ml Output Urine Total 0 ml 0 ml Stool Total 1 ml Hemodialysis UF 2000 ml # Bowel Movements 1 Critical Care - Objective ET-Tube: 7.5 ET Position: 23 Last 24 Hour Vital Signs Date Time Temp Pulse Resp B/P (MAP) Pulse Ox O2 Delivery O2 Flow Rate FiO2 07/04/18 13:45 99 07/04/18 13:30 98 19 115/46 (69) 100 07/04/18 13:26 98 19 28 07/04/18 13:00 98.1 98 19 118/37 (64) 100 07/04/18 12:30 98 18 112/50 (70) 100 07/04/18 12:19 28 07/04/18 12:16 99 17 28 07/04/18 12:02 97 07/04/18 12:00 99 19 116/54 (74) 100 07/04/18 11:30 100 18 114/46 (68) 100 07/04/18 11:05 28 07/04/18 11:00 97 18 115/42 (66) 100 07/04/18 11:00 Mechanical Ventilator 07/04/18 10:51 96 20 28 07/04/18 10:30 96 17 122/46 (71) 100 07/04/18 10:00 96 16 126/47 (73) 100 07/04/18 09:30 96 17 122/49 (73) 100 07/04/18 09:17 86 15 28 07/04/18 09:00 96 18 79/33 (48) 100 07/04/18 08:30 97 17 116/48 (70) 100 07/04/18 08:00 Mechanical Ventilator 07/04/18 08:00 99.4 97 17 118/53 (74) 100 07/04/18 07:50 96 07/04/18 07:30 97 17 117/43 (67) 100 07/04/18 07:14 97 16 28 07/04/18 07:00 97 18 111/60 (77) 100 07/04/18 06:00 98 17 114/41 (65) 100 07/04/18 05:18 99 18 28 07/04/18 05:00 98 18 109/76 (87) 100 07/04/18 04:00 99.2 100 19 99/62 (74) 100 07/04/18 04:00 28 07/04/18 04:00 Mechanical Ventilator 07/04/18 04:00 99 07/04/18 03:00 99 18 108/36 (60) 100 07/04/18 02:59 99 18 28 07/04/18 02:00 100 18 103/36 (58) 100 07/04/18 01:19 101 16 28 07/04/18 01:00 101 18 101/36 (57) 100 07/04/18 00:00 102 07/04/18 00:00 28 07/04/18 00:00 Mechanical Ventilator 07/04/18 00:00 99.0 103 19 98/36 (56) 100 07/03/18 23:30 103 20 28 07/03/18 23:00 103 19 115/40 (65) 100 07/03/18 22:00 103 18 104/45 (64) 99 07/03/18 21:30 84 16 28 07/03/18 21:00 91 16 70/34 (46) 99 07/03/18 20:00 102 12/10/18 20:00 28 07/03/18 20:00 Mechanical Ventilator 07/03/18 20:00 99.5 103 20 100/82 (88) 99 07/03/18 19:30 103 20 28 07/03/18 19:00 105 14 101/42 (61) 99 105 07/03/18 18:00 108 20 108/46 (66) 99 108 07/03/18 17:11 101 21 28 07/03/18 17:03 109 17 109/52 (71) 100 109 07/03/18 16:00 Mechanical Ventilator 07/03/18 16:00 98.8 111 20 99/36 (57) 100 111 07/03/18 16:00 110 07/03/18 15:00 111 18 93/43 (60) 96 111 07/03/18 14:52 76 18 28 Labs: Labs Test 07/02/18 05:13 07/02/18 08:38 07/02/18 10:50 07/03/18 05:00 Random Vancomycin Level 26.9 ug/mL 22.6 ug/mL Arterial Blood pH 7.430 (7.350-7.450) Arterial Blood Partial Pressure CO2 33.0 mmHg (35.0-45.0) Arterial Blood Partial Pressure O2 108.9 mmHg (75.0-100.0) Arterial Blood HCO3 27.1 mmol/L (22.0-26.0) Arterial Blood Oxygen Saturation 97.6 % (95-100) Arterial Blood Base Excess -2.0 (-2-2) Nicola Test Positive White Blood Count 6.2 K/UL (4.8-10.8) Red Blood Count 3.68 M/UL (4.20-5.40) Hemoglobin 9.8 G/DL (12.0-16.0) Hematocrit 31.1 % (37.0-47.0) Mean Corpuscular Volume 85 FL (80-99) Mean Corpuscular Hemoglobin 26.6 PG (27.0-31.0) Mean Corpuscular Hemoglobin Concent 31.4 G/DL (32.0-36.0) Red Cell Distribution Width 14.5 % (11.6-14.8) Platelet Count 109 K/UL (150-450) Mean Platelet Volume 8.8 FL (6.5-10.1) Neutrophils (%) (Auto) 64.8 % (45.0-75.0) Lymphocytes (%) (Auto) 18.8 % (20.0-45.0) Monocytes (%) (Auto) 11.0 % (1.0-10.0) Eosinophils (%) (Auto) 4.0 % (0.0-3.0) Basophils (%) (Auto) 1.4 % (0.0-2.0) Sodium Level 133 MMOL/L (136-145) Potassium Level 4.0 MMOL/L (3.5-5.1) Chloride Level 99 MMOL/L (98-107) Carbon Dioxide Level 23 MMOL/L (21-32) Anion Gap 11 mmol/L (5-15) Blood Urea Nitrogen 50 mg/dL (7-18) Creatinine 5.9 MG/DL (0.55-1.30) Estimat Glomerular Filtration Rate 8.5 mL/min (>60) Glucose Level 66 MG/DL (74-106) Calcium Level 8.1 MG/DL (8.5-10.1) Phosphorus Level 4.7 MG/DL (2.5-4.9) Magnesium Level 1.7 MG/DL (1.8-2.4) Test 07/04/18 03:35 07/04/18 07:35 07/04/18 13:28 Random Vancomycin Level 22.8 ug/mL Arterial Blood pH 7.494 (7.350-7.450) 7.400 (7.350-7.450) Arterial Blood Partial Pressure CO2 39.5 mmHg (35.0-45.0) 47.2 mmHg (35.0-45.0) Arterial Blood Partial Pressure O2 72.0 mmHg (75.0-100.0) 82.8 mmHg (75.0-100.0) Arterial Blood HCO3 29.7 mmol/L (22.0-26.0) 29.0 mmol/L (22.0-26.0) Arterial Blood Oxygen Saturation 95.1 % (95-100) 95.6 % (95-100) Arterial Blood Base Excess 6.0 (-2-2) 3.8 (-2-2) Nicola Test Positive Positive Objective: GENERAL: A well-developed female chronically ill. currently on the vent; more alert HEENT: Overall negative. NECK: Supple. No jugular venous distention. LUNGS: Reduced breath sounds left side. no rhonchi or wheeze CARDIAC: Normal S1 and S2. Regular rate and rhythm. without MRG ABDOMEN: Soft, nontender, and nondistended. no HSM EXTREMITIES: No cyanosis or clubbing. The patient has a right above knee stump, left heel with ulcers. NEUROLOGIC: somewhat sedated but seems more alert reviewed and edited Accucheck: 84 Gustavo Rolon MD Jul 04, 2018 14:05
[2018-07-04] MEDS: Meropenem 500 MG in NS 55 ML IVPB SCH (14:27)
[2018-07-04] MEDS ORDERED: NS 275ml ONE (15:22)
[2018-07-04] MEDS ORDERED: Tubing IV Secondary IV ONE (15:22)
--- NOTE | 2018-07-04 16:09 | NUR ---
NURSE NOTES: PM care given for 1 loose brown BM. Turned and repositioned. Small amount of clear red-pecked secretion noted from mouth. Suctioned. Will continue to monitor.
--- NOTE | 2018-07-04 18:12 | Cardiology Progress Note ---
Assessment/Plan Assessment/Plan congestive heart failure, severe MR, right ventricular dilatation and dysfunction (my interpretation) right heart failure and left heart failure, edema, the patient BP is measured on right calf, I am concerned that it is not accurate. Her BP is higher on Dobutamine, (provided it is accurate) her CXR showed CHF, and pulmonary edema she is on Dobutamine drip and BP is better. Her right ventricle is stimulated on Dobutamine hopefully will be extubated tomorrow and will try to wean off Dobutamine concerned that her BP will go down off Dobutamine and Dopamine Subjective Subjective The patient is intubated, she is alert, moving around, following some commands Objective Last 24 Hour Vital Signs Date Time Temp Pulse Resp B/P (MAP) Pulse Ox O2 Delivery O2 Flow Rate FiO2 07/04/18 17:28 89 20 28 07/04/18 17:00 88 20 115/52 (73) 100 07/04/18 16:30 88 18 108/52 (70) 100 07/04/18 16:12 89 07/04/18 16:00 Mechanical Ventilator 07/04/18 16:00 89 19 111/63 (79) 100 07/04/18 15:30 89 20 111/41 (64) 100 07/04/18 15:15 89 24 28 07/04/18 15:00 89 18 108/38 (61) 100 07/04/18 14:30 93 19 108/39 (62) 100 07/04/18 14:00 96 18 114/46 (68) 100 07/04/18 13:45 99 07/04/18 13:30 98 19 115/46 (69) 100 07/04/18 13:26 98 19 28 07/04/18 13:00 98.1 98 19 118/37 (64) 100 07/04/18 12:30 98 18 112/50 (70) 100 07/04/18 12:19 28 07/04/18 12:16 99 17 28 07/04/18 12:02 97 07/04/18 12:00 99 19 116/54 (74) 100 07/04/18 11:30 100 18 114/46 (68) 100 07/04/18 11:05 28 07/04/18 11:00 97 18 115/42 (66) 100 07/04/18 11:00 Mechanical Ventilator 07/04/18 10:51 96 20 28 07/04/18 10:30 96 17 122/46 (71) 100 07/04/18 10:00 96 16 126/47 (73) 100 07/04/18 09:30 96 17 122/49 (73) 100 07/04/18 09:17 86 15 28 07/04/18 09:00 96 18 79/33 (48) 100 07/04/18 08:30 97 17 116/48 (70) 100 07/04/18 08:00 Mechanical Ventilator 07/04/18 08:00 99.4 97 17 118/53 (74) 100 07/04/18 07:50 96 07/04/18 07:30 97 17 117/43 (67) 100 07/04/18 07:14 97 16 28 07/04/18 07:00 97 18 111/60 (77) 100 07/04/18 06:00 98 17 114/41 (65) 100 07/04/18 05:18 99 18 28 07/04/18 05:00 98 18 109/76 (87) 100 07/04/18 04:00 99.2 100 19 99/62 (74) 100 07/04/18 04:00 28 07/04/18 04:00 Mechanical Ventilator 07/04/18 04:00 99 07/04/18 03:00 99 18 108/36 (60) 100 07/04/18 02:59 99 18 28 07/04/18 02:00 100 18 103/36 (58) 100 07/04/18 01:19 101 16 28 07/04/18 01:00 101 18 101/36 (57) 100 07/04/18 00:00 102 07/04/18 00:00 28 07/04/18 00:00 Mechanical Ventilator 07/04/18 00:00 99.0 103 19 98/36 (56) 100 07/03/18 23:30 103 20 28 07/03/18 23:00 103 19 115/40 (65) 100 07/03/18 22:00 103 18 104/45 (64) 99 07/03/18 21:30 84 16 28 07/03/18 21:00 91 16 70/34 (46) 99 07/03/18 20:00 102 07/03/18 20:00 28 07/03/18 20:00 Mechanical Ventilator 07/03/18 20:00 99.5 103 20 100/82 (88) 99 07/03/18 19:30 103 20 28 07/03/18 19:00 105 14 101/42 (61) 99 105 General Appearance: alert, on vent EENT: PERRL/EOMI Neck: JVD Rhythm: NSR Cardiovascular: regular rhythm, systolic murmur Respiratory/Chest: crackles/rales, other Abdomen: distended Extremities: severe edema - severe ganaralized edema Intake and Output 07/03/18 07/04/18 19:00 07:00 Intake Total 2567.02 ml 440.37 ml Output Total 2001 ml 0 ml Balance 566.02 ml 440.37 ml IV Total 567.02 ml 440.37 ml Hemodialysis 2000 ml Output Urine Total 0 ml 0 ml Stool Total 1 ml Hemodialysis UF 2000 ml # Bowel Movements 1 Laboratory Tests Test 07/04/18 03:35 07/04/18 07:35 07/04/18 13:28 Random Vancomycin Level 22.8 ug/mL Arterial Blood pH 7.494 (7.350-7.450) 7.400 (7.350-7.450) Arterial Blood Partial Pressure CO2 39.5 mmHg (35.0-45.0) 47.2 mmHg (35.0-45.0) H Arterial Blood Partial Pressure O2 72.0 mmHg (75.0-100.0) L 82.8 mmHg (75.0-100.0) Arterial Blood HCO3 29.7 mmol/L (22.0-26.0) H 29.0 mmol/L (22.0-26.0) H Arterial Blood Oxygen Saturation 95.1 % (95-100) 95.6 % (95-100) Arterial Blood Base Excess 6.0 (-2-2) H 3.8 (-2-2) H Nicola Test Positive Positive Clarisse Daley MD Jul 04, 2018 18:12
[2018-07-04] MEDS: DOPamine 400mg/250ml 250 ML IV SCH (18:43)
--- NOTE | 2018-07-04 19:00 | NUR ---
NURSE NOTES: Report received from Sammie Fisher RN. Patient Sinus rhythm on hcc coders in 80s. Patient is awake and content, Oriented x2-3. Able to express needs by nodding for yes or no, patient does not seem to be in any distress, patient has ETT 7.5 at 20 cm lip line. AC 15, TV 500, FiO2 28%, P 5. SpO2 saturation at 100%. Kept NPO as per order. Patient has a NGT that was placed today, Xray confirmed placement, Right BKA and Left heel with wound vac dressing noted. Right AV shunt for HD. Left UA midline patent and asymptomatic. D10 1/2NS is running at 30cc/hr. Pt is on Dobutamine 5mcg/kg/min. Bed in lowest position. Side rails up x3. Will resume plan of care.
--- NOTE | 2018-07-04 19:05 | NUR ---
HAND-OFF: Report given to CHAPIS Dela Cruz.
--- NOTE | 2018-07-04 20:00 | NUR ---
NURSE NOTES: Patient repositioned, suctioned and provided oral care. Dobutamine decreased to 3mcg. Temperature is 98.8F. Will continue to monitor.
[2018-07-04] MEDS: Dyna-Hex 2% Top Sol 2oz TOPIC SCH (20:52)
--- NOTE | 2018-07-04 21:00 | NUR ---
NURSE NOTES: Glucose reading showed 69, Patient received 25ml of D50%.
--- NOTE | 2018-07-04 22:00 | NUR ---
NURSE NOTES: Patient repositioned and suctioned. NAD, vitals remains stable, remains on 3mcg. Will continue to monitor.
--- NOTE | 2018-07-04 23:00 | NUR ---
NURSE NOTES: Dobutamine turned off/hold.
[2018-07-05] VITALS (29 sets, daily range): BP systolic 99–151; BP diastolic 47–88
--- NOTE | 2018-07-05 | NUR ---
NURSE NOTES: Patient repositioned and provided oral care and suctioned. Patient Vitals continue to be stable, Continue to monitor.
--- NOTE | 2018-07-05 02:00 | NUR ---
NURSE NOTES: Patient turned, suctioned and provided oral care. Patient BP remains stable, no acute distress.
--- NOTE | 2018-07-05 04:00 | NUR ---
NURSE NOTES: Patient repositioned, and provided suction. patient is warm to touch but not reflecting fever, current temperature is 98.9F. Dobutamine remains on hold, and blood pressure remains stable with MAP greater than 65. Patient is awake and content.
[2018-07-05 05:17] LABS: BASOPHILS % (AUTO) 0.7 % (0.0-2.0); EOSINOPHILS % (AUTO) 4.4 % (0.0-3.0); HEMATOCRIT 26.2 % (37.0-47.0); HEMOGLOBIN 8.2 G/DL (12.0-16.0); LYMPHOCYTES % (AUTO) 14.7 % (20.0-45.0); MEAN CORPUSCULAR VOLUME 86 FL (80-99); MONOCYTES % (AUTO) 8.2 % (1.0-10.0); PLATELET COUNT 107 K/UL (150-450); RED BLOOD COUNT 3.06 M/UL (4.20-5.40); RED CELL DISTRIBUTION WIDTH 14.5 % (11.6-14.8); WHITE BLOOD COUNT 7.5 K/UL (4.8-10.8)
[2018-07-05 05:48] LABS: ALANINE AMINOTRANSFERASE < 6 U/L (12-78); ALBUMIN 1.5 G/DL (3.4-5.0); ALBUMIN/GLOBULIN RATIO 0.3 (1.0-2.7); ALKALINE PHOSPHATASE 115 U/L (46-116); ANION GAP 8 mmol/L (5-15); ASPARTATE AMINO TRANSFERASE 17 U/L (15-37); BILIRUBIN,TOTAL 0.5 MG/DL (0.2-1.0); BLOOD UREA NITROGEN 30 mg/dL (7-18); CALCIUM 8.1 MG/DL (8.5-10.1); CARBON DIOXIDE 27 MMOL/L (21-32); CHLORIDE 101 MMOL/L (98-107); CREATININE 4.7 MG/DL (0.55-1.30); PHOSPHORUS 3.7 MG/DL (2.5-4.9); POTASSIUM 3.6 MMOL/L (3.5-5.1); SODIUM 135 MMOL/L (136-145)
--- NOTE | 2018-07-05 06:00 | NUR ---
NURSE NOTES: Patients glucose this morning is 59, 50ml of D50% was given again with 25ml of orange juice via NGT. Patients Blood pressure remains stable while off the dobutamine. NO acute events overnight.
[2018-07-05] MEDS: NovoLOG Insulin Flexpen SUBQ SCH ×4 (06:06→21:00)
--- NOTE | 2018-07-05 07:00 | NUR ---
NURSE NOTES: Received patient from Brigette Dela Cruz. Received patient in bed alert, patient is legally blind, able to communicate by nodding and hand gestures. Patient is connected to the equipment monitor phototypesetting sinus rhythm on the monitor. Patient is intubated with ETT size 7.5, AC 23cm, Vent settings AC 15, TV 500, fio2 28%, PEEP 5, 02 saturation 100%. Patient is NPO at this time. Patient abdomen is large, distended, non tender, bowel sounds are hypoactive. Patient has a right av shunt bruit and thrill prsent, left upper arm picc, patent and asymptomatic current fluids running D101/2NS at 30ml, PICC dressing last changed 07/03/2018. Hemodialysis scheduled for today. Patient is anuric. Patient is afebrile 98.2. Patient has bilateral soft restraints, skin is intact and pulses are weak and present. Head of bed is at 30 degrees, bed is locked and in the lowest position, bed alarm is on. Will continue to monitor patient and follow plan of care. Addendum: 07/05/18 at 0852 by DANDY JORDAN RN Patient also has an OGT clamped. OGT 55cm at the lip line.
--- NOTE | 2018-07-05 07:19 | NUR ---
RESPIRATORY NOTE:Received pt on PB840 vent with settings of 15 500 28% +5. Pt awake and alert. No s/s of distress. vent plugged into red outlet, ambu bag present at bedside. Will cont to monitor pt status.
--- NOTE | 2018-07-05 07:51 | Nephrology Progress Note ---
Assessment/Plan Plan MOF Intubated. B Pleural effusion Anasarca decreasing. Daily HD/UF. Try to wean + extubate today. Hypoglycemia raises the suspicion of smoldering sepsis. Subjective Subjective On Vent. No events overnight. Off pressors! Objective Objective Last 24 Hour Vital Signs Date Time Temp Pulse Resp B/P (MAP) Pulse Ox O2 Delivery O2 Flow Rate FiO2 07/05/18 07:19 71 15 28 07/05/18 06:00 73 16 116/51 (72) 100 07/05/18 05:15 72 15 28 07/05/18 05:00 73 16 122/58 (79) 100 07/05/18 04:30 72 15 113/47 (69) 100 07/05/18 04:00 Mechanical Ventilator 07/05/18 04:00 71 07/05/18 04:00 98.9 73 16 123/56 (78) 100 07/05/18 03:30 73 15 108/54 (72) 100 07/05/18 03:00 72 15 99/78 (85) 100 07/05/18 02:55 73 15 28 07/05/18 02:30 75 16 101/52 (68) 100 07/05/18 02:00 75 15 103/52 (69) 100 07/05/18 01:30 76 16 133/88 (103) 100 07/05/18 01:04 85 16 28 07/05/18 01:00 78 15 134/50 (78) 100 07/05/18 00:30 79 15 131/52 (78) 100 07/05/18 00:00 99.4 80 18 123/53 (76) 100 07/05/18 00:00 79 07/05/18 00:00 Mechanical Ventilator 07/04/18 23:30 79 16 122/50 (74) 100 07/04/18 23:29 82 16 28 07/04/18 23:00 82 16 133/46 (75) 100 07/04/18 22:30 83 16 115/67 (83) 100 07/04/18 22:00 84 16 133/54 (80) 100 07/04/18 21:30 85 16 105/80 (88) 100 07/04/18 21:07 89 20 28 07/04/18 21:00 86 16 127/47 (73) 100 07/04/18 20:30 89 16 126/62 (83) 100 07/04/18 20:00 98.8 88 18 126/57 (80) 100 07/04/18 20:00 87 07/04/18 20:00 Mechanical Ventilator 07/04/18 20:00 28 07/04/18 19:30 86 17 115/63 (80) 100 07/04/18 19:08 90 17 28 07/04/18 19:00 89 18 119/51 (73) 100 07/04/18 18:30 89 15 123/57 (79) 100 07/04/18 18:00 89 17 120/66 (84) 100 07/04/18 17:30 89.3 89 16 125/48 (73) 100 07/04/18 17:28 89 20 28 07/04/18 17:00 88 20 115/52 (73) 100 07/04/18 16:30 88 18 108/52 (70) 100 07/04/18 16:12 89 07/04/18 16:00 Mechanical Ventilator 07/04/18 16:00 89 19 111/63 (79) 100 07/04/18 15:30 89 20 111/41 (64) 100 07/04/18 15:15 89 24 28 07/04/18 15:00 89 18 108/38 (61) 100 07/04/18 14:30 93 19 108/39 (62) 100 07/04/18 14:00 96 18 114/46 (68) 100 07/04/18 13:45 99 07/04/18 13:30 98 19 115/46 (69) 100 07/04/18 13:26 98 19 28 07/04/18 13:00 98.1 98 19 118/37 (64) 100 07/04/18 12:30 98 18 112/50 (70) 100 07/04/18 12:19 28 07/04/18 12:16 99 17 28 07/04/18 12:02 97 07/04/18 12:00 99 19 116/54 (74) 100 07/04/18 11:30 100 18 114/46 (68) 100 07/04/18 11:05 28 07/04/18 11:00 97 18 115/42 (66) 100 07/04/18 11:00 Mechanical Ventilator 07/04/18 10:51 96 20 28 07/04/18 10:30 96 17 122/46 (71) 100 07/04/18 10:00 96 16 126/47 (73) 100 07/04/18 09:30 96 17 122/49 (73) 100 07/04/18 09:17 86 15 28 07/04/18 09:00 96 18 79/33 (48) 100 07/04/18 08:30 97 17 116/48 (70) 100 07/04/18 08:00 Mechanical Ventilator 07/04/18 08:00 99.4 97 17 118/53 (74) 100 07/04/18 07:50 96 Intake and Output 07/04/18 07/05/18 19:00 07:00 Intake Total 579.04 ml 357.33 ml Output Total 0 ml 0 ml Balance 579.04 ml 357.33 ml Free Water 30 ml IV Total 579.04 ml 327.33 ml Output Urine Total 0 ml 0 ml # Bowel Movements 2 Laboratory Tests 07/04/18 13:28: Arterial Blood pH 7.400, Arterial Blood Partial Pressure CO2 47.2H, Arterial Blood Partial Pressure O2 82.8, Arterial Blood HCO3 29.0H, Arterial Blood Oxygen Saturation 95.6, Arterial Blood Base Excess 3.8H, Nicola Test Positive 07/05/18 04:10: White Blood Count 7.5, Red Blood Count 3.06L, Hemoglobin 8.2L, Hematocrit 26.2L , Mean Corpuscular Volume 86, Mean Corpuscular Hemoglobin 26.7L, Mean Corpuscular Hemoglobin Concent 31.1L, Red Cell Distribution Width 14.5, Platelet Count 107L, Mean Platelet Volume 8.2, Neutrophils (%) (Auto) 72.0, Lymphocytes (%) (Auto) 14.7L, Monocytes (%) (Auto) 8.2, Eosinophils (%) (Auto) 4.4H, Basophils (%) (Auto) 0.7, Sodium Level 135L, Potassium Level 3.6, Chloride Level 101, Carbon Dioxide Level 27, Anion Gap 8, Blood Urea Nitrogen 30H, Creatinine 4.7H, Estimat Glomerular Filtration Rate 11.2, Glucose Level 63L , Calcium Level 8.1L, Phosphorus Level 3.7, Total Bilirubin 0.5, Aspartate Amino Transf (AST/SGOT) 17, Alanine Aminotransferase (ALT/SGPT) < 6L, Alkaline Phosphatase 115, Total Protein 6.3L, Albumin 1.5L, Globulin 4.8, Albumin/ Globulin Ratio 0.3L Height (Feet): 5 Height (Inches): 6.00 Weight (Pounds): 238 Objective Intubated + on vent Blind Cv RR Lungs more air movement L Lung. Abd SNT. BS + E Rt AKA stump clean. Lt. heel ulcer. Lethargic but easily arouseable Brenda Fuller MD Jul 05, 2018 07:51
--- NOTE | 2018-07-05 08:10 | NUR ---
NURSE NOTES: Dialysis nurse ERASMO from [facility] has begun. Nurse ZIMMERMAN asked for medications to be held until after dialysis charge nurse has been informed. Will continue to monitor patient and follow plan of care.
--- NOTE | 2018-07-05 09:52 | NUR ---
NURSE NOTES: Patient is still receiving hemodialysis, patient is tolerating well. Patient denies any pain. Patient bilateral lung sound of rhonchi, patient also has a left heel pressure ulcer connected to the wound vac their is no output at this time. Patient has generalized swelling in arms, bilateral hand pitting. Head of bed is at 30 degrees, 3 side rails are up, bed alarm is on. Will continue to monitor patient and follow plan of care.
--- NOTE | 2018-07-05 10:50 | NUR ---
NURSE NOTES: patient completed hemodialysis 2.5liters removed. Patient is now beginning weaning trial PS 8, so far patient is tolerating well, 02 saturation 100%, HR 75. Patient is alert and responding using head gestures and hand movements. Patient denies pain at this time. Patient repositioned and oral care received. Head of bed is at 30 degrees, 3 side rails up, bed alarm is on, bed is locked and in the lowest position. Will continue to monitor patient and follow plan of care.
--- NOTE | 2018-07-05 10:55 | NUR ---
RESPIRATORY NOTE:Placed pt on cpap with psv of 8cmH20 fi02 28% notified nurse Vladimir
[2018-07-05] MEDS: Aspirin Baby 81mg ORAL SCH (11:05)
[2018-07-05] MEDS: Dextrose 10%/.45 SOD CHL 1,000 ML IV SCH (11:05)
[2018-07-05] MEDS: Heparin 5000 units/ml inj SUBQ SCH ×2 (11:15→22:12)
--- NOTE | 2018-07-05 11:22 | Infectious Diseases Prog Note ---
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 renal failure 3. diabetes mellitus 4. hypertension 5. rectal VRE colonization 6. shock 7. pneumonia 8. mucous plugging s/p bronchoscopy P 1. continue vancomycin iv, meropenem 2. will follow up cultures Subjective ROS Limited/Unobtainable: Yes Allergies: Coded Allergies: BENAZEPRIL (Verified Allergy, Unknown, 06/12/18) CODEINE (Verified Allergy, Unknown, 06/12/18) INSULIN ASPART (Verified Allergy, Unknown, 06/12/18) INSULIN DETEMIR (Verified Allergy, Unknown, 06/12/18) OPIOIDS - MORPHINE ANALOGUES (Verified Allergy, Unknown, 06/12/18) Objective Vital Signs Last 24 Hour Vital Signs Date Time Temp Pulse Resp B/P (MAP) Pulse Ox O2 Delivery O2 Flow Rate FiO2 07/05/18 10:52 78 17 28 07/05/18 09:00 70 16 112/49 (70) 100 07/05/18 08:00 71 07/05/18 08:00 71 16 117/49 (71) 100 07/05/18 08:00 Mechanical Ventilator 07/05/18 07:19 71 15 28 07/05/18 07:00 98.2 70 15 117/50 (72) 100 07/05/18 06:00 73 16 116/51 (72) 100 07/05/18 05:15 72 15 28 07/05/18 05:00 73 16 122/58 (79) 100 07/05/18 04:30 72 15 113/47 (69) 100 07/05/18 04:00 Mechanical Ventilator 07/05/18 04:00 71 07/05/18 04:00 98.9 73 16 123/56 (78) 100 07/05/18 03:30 73 15 108/54 (72) 100 07/05/18 03:00 72 15 99/78 (85) 100 07/05/18 02:55 73 15 28 07/05/18 02:30 75 16 101/52 (68) 100 07/05/18 02:00 75 15 103/52 (69) 100 07/05/18 01:30 76 16 133/88 (103) 100 07/05/18 01:04 85 16 28 07/05/18 01:00 78 15 134/50 (78) 100 07/05/18 00:30 79 15 131/52 (78) 100 07/05/18 00:00 99.4 80 18 123/53 (76) 100 07/05/18 00:00 79 07/05/18 00:00 Mechanical Ventilator 07/04/18 23:30 79 16 122/50 (74) 100 07/04/18 23:29 82 16 28 07/04/18 23:00 82 16 133/46 (75) 100 07/04/18 22:30 83 16 115/67 (83) 100 07/04/18 22:00 84 16 133/54 (80) 100 07/04/18 21:30 85 16 105/80 (88) 100 07/04/18 21:07 89 20 28 07/04/18 21:00 86 16 127/47 (73) 100 07/04/18 20:30 89 16 126/62 (83) 100 07/04/18 20:00 98.8 88 18 126/57 (80) 100 07/04/18 20:00 87 07/04/18 20:00 Mechanical Ventilator 07/04/18 20:00 28 07/04/18 19:30 86 17 115/63 (80) 100 07/04/18 19:08 90 17 28 07/04/18 19:00 89 18 119/51 (73) 100 07/04/18 18:30 89 15 123/57 (79) 100 07/04/18 18:00 89 17 120/66 (84) 100 07/04/18 17:30 89.3 89 16 125/48 (73) 100 07/04/18 17:28 89 20 28 07/04/18 17:00 88 20 115/52 (73) 100 07/04/18 16:30 88 18 108/52 (70) 100 07/04/18 16:12 89 07/04/18 16:00 Mechanical Ventilator 07/04/18 16:00 89 19 111/63 (79) 100 07/04/18 15:30 89 20 111/41 (64) 100 07/04/18 15:15 89 24 28 07/04/18 15:00 89 18 108/38 (61) 100 07/04/18 14:30 93 19 108/39 (62) 100 07/04/18 14:00 96 18 114/46 (68) 100 07/04/18 13:45 99 07/04/18 13:30 98 19 115/46 (69) 100 07/04/18 13:26 98 19 28 07/04/18 13:00 98.1 98 19 118/37 (64) 100 07/04/18 12:30 98 18 112/50 (70) 100 07/04/18 12:19 28 07/04/18 12:16 99 17 28 07/04/18 12:02 97 07/04/18 12:00 99 19 116/54 (74) 100 07/04/18 11:30 100 18 114/46 (68) 100 Height (Feet): 5 Height (Inches): 6.00 Weight (Pounds): 238 HEENT: other - intubated Respiratory/Chest: lungs clear Cardiovascular: normal rate, regular rhythm, no gallop/murmur Abdomen: soft, non tender Extremities: no edema, other - right arm PICC, left foot VAC Microbiology Date/Time Source Procedure Growth Status 07/04/18 01:00 Sputum Induced Gram Stain - Final Resulted 07/04/18 01:00 Sputum Induced Sputum Culture Pending Resulted Laboratory Tests Test 07/04/18 13:28 07/05/18 04:10 Arterial Blood pH 7.400 (7.350-7.450) Arterial Blood Partial Pressure CO2 47.2 mmHg (35.0-45.0) H Arterial Blood Partial Pressure O2 82.8 mmHg (75.0-100.0) Arterial Blood HCO3 29.0 mmol/L (22.0-26.0) H Arterial Blood Oxygen Saturation 95.6 % (95-100) Arterial Blood Base Excess 3.8 (-2-2) H Nicola Test Positive White Blood Count 7.5 K/UL (4.8-10.8) Red Blood Count 3.06 M/UL (4.20-5.40) L Hemoglobin 8.2 G/DL (12.0-16.0) L Hematocrit 26.2 % (37.0-47.0) L Mean Corpuscular Volume 86 FL (80-99) Mean Corpuscular Hemoglobin 26.7 PG (27.0-31.0) L Mean Corpuscular Hemoglobin Concent 31.1 G/DL (32.0-36.0) L Red Cell Distribution Width 14.5 % (11.6-14.8) Platelet Count 107 K/UL (150-450) L Mean Platelet Volume 8.2 FL (6.5-10.1) Neutrophils (%) (Auto) 72.0 % (45.0-75.0) Lymphocytes (%) (Auto) 14.7 % (20.0-45.0) L Monocytes (%) (Auto) 8.2 % (1.0-10.0) Eosinophils (%) (Auto) 4.4 % (0.0-3.0) H Basophils (%) (Auto) 0.7 % (0.0-2.0) Sodium Level 135 MMOL/L (136-145) L Potassium Level 3.6 MMOL/L (3.5-5.1) Chloride Level 101 MMOL/L (98-107) Carbon Dioxide Level 27 MMOL/L (21-32) Anion Gap 8 mmol/L (5-15) Blood Urea Nitrogen 30 mg/dL (7-18) H Creatinine 4.7 MG/DL (0.55-1.30) H Estimat Glomerular Filtration Rate 11.2 mL/min (>60) Glucose Level 63 MG/DL (74-106) L Calcium Level 8.1 MG/DL (8.5-10.1) L Phosphorus Level 3.7 MG/DL (2.5-4.9) Total Bilirubin 0.5 MG/DL (0.2-1.0) Aspartate Amino Transf (AST/SGOT) 17 U/L (15-37) Alanine Aminotransferase (ALT/SGPT) < 6 U/L (12-78) L Alkaline Phosphatase 115 U/L (46-116) Total Protein 6.3 G/DL (6.4-8.2) L Albumin 1.5 G/DL (3.4-5.0) L Globulin 4.8 g/dL Albumin/Globulin Ratio 0.3 (1.0-2.7) L Current Medications Medications (Trade) Dose Ordered Sig/Andre Route PRN Reason Start Time Stop Time Status Last Admin Dose Admin Acetaminophen (Tylenol) 500 mg Q6H PRN ORAL Mild Pain/Temp > 100.5 06/28/18 20:00 07/28/18 19:59 07/01/18 00:32 Aspirin (ASA) 81 mg DAILY ORAL 06/29/18 09:00 07/13/18 08:59 07/05/18 11:05 Chlorhexidine Gluconate (Fabiola-Hex 2%) 1 applic DAILY@1999 TOPIC 06/28/18 20:00 07/18/18 19:59 07/04/18 20:52 Collagenase (Santyl) 1 applic DAILY TOPIC 06/29/18 09:00 07/13/18 08:59 07/04/18 09:00 Dextrose (Dextrose 50%) 25 ml Q30M PRN IV Hypoglycemia 06/28/18 18:45 07/17/18 20:14 07/04/18 20:52 Dextrose (Dextrose 50%) 50 ml Q30M PRN IV Hypoglycemia 06/28/18 18:45 07/17/18 20:14 07/05/18 06:24 Dextrose/Sodium Chloride 1,000 ml @ 30 mls/hr Q24H IV 06/30/18 09:00 07/30/18 08:59 07/05/18 11:05 Dobutamine HCl 500 mg/Sodium Chloride 250 ml @ 0 mls/hr Q24H IV 07/03/18 09:00 08/02/18 08:59 07/04/18 15:29 Dopamine HCl/ Dextrose 250 ml @ 0 mls/hr Q24H IV 06/28/18 18:45 07/28/18 18:44 07/01/18 11:41 Heparin Sodium (Porcine) (Heparin 5000 units/ml) 5,000 units EVERY 12 HOURS SUBQ 06/28/18 21:00 07/13/18 08:59 07/05/18 11:15 Heparin Sodium (Porcine) (Heparin Sod 1000 units/ml 10ml) 2,000 unit ONCE PRN IV FOR HD USE ONLY 07/04/18 08:30 07/05/18 23:59 Insulin Aspart (NovoLOG) BEFORE MEALS AND HS SUBQ 06/28/18 21:00 07/17/18 20:59 Lorazepam (Ativan 2mg/ml 1ml) 1 mg Q3H PRN IV For Anxiety 07/01/18 11:59 07/08/18 11:58 07/01/18 17:15 Meropenem 500 mg/ Sodium Chloride 55 ml @ 110 mls/hr Q24H IVPB 06/29/18 14:00 07/25/18 13:59 07/04/18 14:27 Pantoprazole (Protonix) 40 mg ACBREAKFAST ORAL 06/29/18 06:30 07/27/18 06:29 07/05/18 06:23 Sodium Chloride 1,000 ml @ 500 mls/hr Q2H PRN IVLG sbp<90 during hd 07/05/18 07:54 07/05/18 23:59 Vancomycin HCl (Vanco rx to dose) 1 ea DAILY PRN MISC Per rx protocol 06/29/18 08:15 07/29/18 08:14 Naya Cain MD Jul 05, 2018 11:22"
--- NOTE | 2018-07-05 14:54 | NUR ---
NURSE NOTES: Called Dr. Rolon to inform him of new ABG results. gave order to extubate patient, respiratory therapist informed. Will continue to monitor patient and follow plan of care.
--- NOTE | 2018-07-05 15:00 | NUR ---
NURSE NOTES: Restraints have been discontinued, patient has been extubated. Will continue to monitor patient and follow plan of care.
--- NOTE | 2018-07-05 15:10 | NUR ---
NURSE NOTES: Patient extubated, patient tolerated well, patient placed on a venturi mask. No acute distress noted. Head of bed is at 30 degrees, bed is locked and in the lowest position, bed alarm is on, bilateral arms are elevated with pillows. Left leg is elevated with pillow, right stump is elevated and skin is intact. Will continue to monitor patient and follow plan of care.
--- NOTE | 2018-07-05 15:15 | NUR ---
RESPIRATORY NOTE:Pt extubated per MD order. Extubation successful with RN supervision. Pt placed in 30% fi02 via cool aerosol mask. No s/s of distress noted whatsoever. Will continue to monitor pt status.
--- NOTE | 2018-07-05 16:30 | NUR ---
NURSE NOTES: Dr. Arizmendi assessed patients left heel wound, instructed staff to remove wound vac until tomorrow. Wound care nurse will replace wound vac tomorrow 07/05/2018. Addendum: 07/05/18 at 1838 by DANDY JORDAN RN A temporary dressing has been applied.
[2018-07-05] MEDS: Meropenem 500 MG in NS 55 ML IVPB SCH (16:59)
--- NOTE | 2018-07-05 17:10 | NUR ---
NURSE NOTES: Patient repositioned, oral care given, patient suctioned with bloody secretions. No acute distress noted. Call light is within patents reach and the patient has been instructed on how to use the call light.
--- NOTE | 2018-07-05 17:30 | Critical Care Progress Note ---
Assessment/Plan Assessment/Plan IMPRESSION: 1. Respiratory failure, acute. 2. Evidence of hypercapnia. 3. Evidence of metabolic acidosis. 4. Evidence of pleural effusion. s/p tap 5. End-stage renal disease. 6. Elevated troponin. 7. Possible demand ischemia. 8. Severe protein-calorie malnutrition. 9. Hyponatremia. 10. Hyperkalemia. 11. Anemia. 12. Thrombocytopenia. 13. Mild coagulopathy. 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 15. mucous plugging s/p bronch PLAN extubate and monitor weaning ABG noted maintain ICU care overnight and follow clear secretions respiratory care monitor fluid results ? need for repeat Tap; will follow up imaging in am close follow up in ICU for now monitor for imaging and change as needed medications/laboratory data/nursing notes/ICU care reviewed in detail note reviewed and edited care discussed with RN and RT ICU time spent 44 minutes Critical Care - Subjective Interval Events: patient seen earlier weaning well ordered extubation low flow oxygen ROS Limited/Unobtainable: Yes Condition: improving EKG Rhythm: Sinus Rhythm I&O: Intake and Output 07/04/18 07/05/18 19:00 07:00 Intake Total 579.04 ml 387.33 ml Output Total 0 ml 0 ml Balance 579.04 ml 387.33 ml Free Water 30 ml IV Total 579.04 ml 357.33 ml Output Urine Total 0 ml 0 ml # Bowel Movements 2 Critical Care - Objective ET-Tube: 7.5 ET Position: 23 Last 24 Hour Vital Signs Date Time Temp Pulse Resp B/P (MAP) Pulse Ox O2 Delivery O2 Flow Rate FiO2 07/05/18 14:00 60 17 122/52 (75) 100 07/05/18 13:52 74 19 28 07/05/18 13:00 60 20 131/59 (83) 100 07/05/18 12:00 Mechanical Ventilator 07/05/18 12:00 60 15 113/49 (70) 100 07/05/18 11:00 74 17 132/62 (85) 100 07/05/18 10:52 78 17 28 07/05/18 10:00 71 16 123/59 (80) 100 07/05/18 09:00 70 16 112/49 (70) 100 07/05/18 08:00 71 07/05/18 08:00 71 16 117/49 (71) 100 07/05/18 08:00 Mechanical Ventilator 12/12/18 07:19 71 15 28 07/05/18 07:00 98.2 70 15 117/50 (72) 100 07/05/18 06:00 73 16 116/51 (72) 100 07/05/18 05:15 72 15 28 07/05/18 05:00 73 16 122/58 (79) 100 07/05/18 04:30 72 15 113/47 (69) 100 07/05/18 04:00 Mechanical Ventilator 07/05/18 04:00 71 07/05/18 04:00 98.9 73 16 123/56 (78) 100 07/05/18 03:30 73 15 108/54 (72) 100 07/05/18 03:00 72 15 99/78 (85) 100 07/05/18 02:55 73 15 28 07/05/18 02:30 75 16 101/52 (68) 100 07/05/18 02:00 75 15 103/52 (69) 100 07/05/18 01:30 76 16 133/88 (103) 100 07/05/18 01:04 85 16 28 07/05/18 01:00 78 15 134/50 (78) 100 07/05/18 00:30 79 15 131/52 (78) 100 07/05/18 00:00 99.4 80 18 123/53 (76) 100 07/05/18 00:00 79 07/05/18 00:00 Mechanical Ventilator 07/04/18 23:30 79 16 122/50 (74) 100 07/04/18 23:29 82 16 28 07/04/18 23:00 82 16 133/46 (75) 100 07/04/18 22:30 83 16 115/67 (83) 100 07/04/18 22:00 84 16 133/54 (80) 100 07/04/18 21:30 85 16 105/80 (88) 100 07/04/18 21:07 89 20 28 07/04/18 21:00 86 16 127/47 (73) 100 07/04/18 20:30 89 16 126/62 (83) 100 07/04/18 20:00 98.8 88 18 126/57 (80) 100 07/04/18 20:00 87 07/04/18 20:00 Mechanical Ventilator 07/04/18 20:00 28 07/04/18 19:30 86 17 115/63 (80) 100 07/04/18 19:08 90 17 28 07/04/18 19:00 89 18 119/51 (73) 100 07/04/18 18:30 89 15 123/57 (79) 100 07/04/18 18:00 89 17 120/66 (84) 100 07/04/18 17:30 89.3 89 16 125/48 (73) 100 07/04/18 17:28 89 20 28 Labs: Labs Test 07/03/18 05:00 07/04/18 03:35 07/04/18 07:35 07/04/18 13:28 Random Vancomycin Level 22.6 ug/mL 22.8 ug/mL Arterial Blood pH 7.494 (7.350-7.450) 7.400 (7.350-7.450) Arterial Blood Partial Pressure CO2 39.5 mmHg (35.0-45.0) 47.2 mmHg (35.0-45.0) Arterial Blood Partial Pressure O2 72.0 mmHg (75.0-100.0) 82.8 mmHg (75.0-100.0) Arterial Blood HCO3 29.7 mmol/L (22.0-26.0) 29.0 mmol/L (22.0-26.0) Arterial Blood Oxygen Saturation 95.1 % (95-100) 95.6 % (95-100) Arterial Blood Base Excess 6.0 (-2-2) 3.8 (-2-2) Nicola Test Positive Positive Test 07/05/18 04:10 07/05/18 13:30 White Blood Count 7.5 K/UL (4.8-10.8) Red Blood Count 3.06 M/UL (4.20-5.40) Hemoglobin 8.2 G/DL (12.0-16.0) Hematocrit 26.2 % (37.0-47.0) Mean Corpuscular Volume 86 FL (80-99) Mean Corpuscular Hemoglobin 26.7 PG (27.0-31.0) Mean Corpuscular Hemoglobin Concent 31.1 G/DL (32.0-36.0) Red Cell Distribution Width 14.5 % (11.6-14.8) Platelet Count 107 K/UL (150-450) Mean Platelet Volume 8.2 FL (6.5-10.1) Neutrophils (%) (Auto) 72.0 % (45.0-75.0) Lymphocytes (%) (Auto) 14.7 % (20.0-45.0) Monocytes (%) (Auto) 8.2 % (1.0-10.0) Eosinophils (%) (Auto) 4.4 % (0.0-3.0) Basophils (%) (Auto) 0.7 % (0.0-2.0) Sodium Level 135 MMOL/L (136-145) Potassium Level 3.6 MMOL/L (3.5-5.1) Chloride Level 101 MMOL/L (98-107) Carbon Dioxide Level 27 MMOL/L (21-32) Anion Gap 8 mmol/L (5-15) Blood Urea Nitrogen 30 mg/dL (7-18) Creatinine 4.7 MG/DL (0.55-1.30) Estimat Glomerular Filtration Rate 11.2 mL/min (>60) Glucose Level 63 MG/DL (74-106) Calcium Level 8.1 MG/DL (8.5-10.1) Phosphorus Level 3.7 MG/DL (2.5-4.9) Total Bilirubin 0.5 MG/DL (0.2-1.0) Aspartate Amino Transf (AST/SGOT) 17 U/L (15-37) Alanine Aminotransferase (ALT/SGPT) < 6 U/L (12-78) Alkaline Phosphatase 115 U/L (46-116) Total Protein 6.3 G/DL (6.4-8.2) Albumin 1.5 G/DL (3.4-5.0) Globulin 4.8 g/dL Albumin/Globulin Ratio 0.3 (1.0-2.7) Arterial Blood pH 7.435 (7.350-7.450) Arterial Blood Partial Pressure CO2 49.1 mmHg (35.0-45.0) Arterial Blood Partial Pressure O2 73.2 mmHg (75.0-100.0) Arterial Blood HCO3 32.2 mmol/L (22.0-26.0) Arterial Blood Oxygen Saturation 94.3 % (95-100) Arterial Blood Base Excess 7.1 (-2-2) Nicola Test Positive Objective: GENERAL: A well-developed female chronically ill. currently on the vent; alert HEENT: Overall negative. NECK: Supple. No jugular venous distention. LUNGS: Reduced breath sounds. no rhonchi or wheeze CARDIAC: Normal S1 and S2. Regular rate and rhythm. without MRG ABDOMEN: Soft, nontender, and nondistended. no HSM EXTREMITIES: No cyanosis or clubbing. The patient has a right above knee stump, left heel with ulcers. NEUROLOGIC: somewhat sedated but seems more alert reviewed and edited Micro: Microbiology Date/Time Source Procedure Growth Status 07/04/18 01:00 Sputum Induced Gram Stain - Final Resulted 07/04/18 01:00 Sputum Induced Sputum Culture Pending Resulted Accucheck: 78 Gustavo Rolon MD Jul 05, 2018 17:30
--- NOTE | 2018-07-05 17:54 | Vascular Surgery Progress Note ---
Subjective Subjective All noted More awake Less distress Getting weaning and possible extubated today Looks better Objective Objective Last 24 Hour Vital Signs Date Time Temp Pulse Resp B/P (MAP) Pulse Ox O2 Delivery O2 Flow Rate FiO2 07/05/18 15:15 Venturi Mask 8.0 30 07/05/18 14:00 60 17 122/52 (75) 100 07/05/18 13:52 74 19 28 07/05/18 13:10 99 07/05/18 13:00 60 20 131/59 (83) 100 07/05/18 12:00 Mechanical Ventilator 07/05/18 12:00 60 15 113/49 (70) 100 07/05/18 11:00 74 17 132/62 (85) 100 07/05/18 10:52 78 17 28 07/05/18 10:00 71 16 123/59 (80) 100 07/05/18 09:00 70 16 112/49 (70) 100 07/05/18 08:00 71 07/05/18 08:00 71 16 117/49 (71) 100 07/05/18 08:00 Mechanical Ventilator 07/05/18 07:19 71 15 28 07/05/18 07:00 98.2 70 15 117/50 (72) 100 07/05/18 06:00 73 16 116/51 (72) 100 07/05/18 05:15 72 15 28 07/05/18 05:00 73 16 122/58 (79) 100 07/05/18 04:30 72 15 113/47 (69) 100 07/05/18 04:00 Mechanical Ventilator 07/05/18 04:00 71 07/05/18 04:00 98.9 73 16 123/56 (78) 100 07/05/18 03:30 73 15 108/54 (72) 100 07/05/18 03:00 72 15 99/78 (85) 100 07/05/18 02:55 73 15 28 07/05/18 02:30 75 16 101/52 (68) 100 07/05/18 02:00 75 15 103/52 (69) 100 07/05/18 01:30 76 16 133/88 (103) 100 07/05/18 01:04 85 16 28 07/05/18 01:00 78 15 134/50 (78) 100 07/05/18 00:30 79 15 131/52 (78) 100 07/05/18 00:00 99.4 80 18 123/53 (76) 100 07/05/18 00:00 79 07/05/18 00:00 Mechanical Ventilator 07/04/18 23:30 79 16 122/50 (74) 100 07/04/18 23:29 82 16 28 07/04/18 23:00 82 16 133/46 (75) 100 07/04/18 22:30 83 16 115/67 (83) 100 07/04/18 22:00 84 16 133/54 (80) 100 07/04/18 21:30 85 16 105/80 (88) 100 07/04/18 21:07 89 20 28 07/04/18 21:00 86 16 127/47 (73) 100 07/04/18 20:30 89 16 126/62 (83) 100 07/04/18 20:00 98.8 88 18 126/57 (80) 100 07/04/18 20:00 87 07/04/18 20:00 Mechanical Ventilator 07/04/18 20:00 28 07/04/18 19:30 86 17 115/63 (80) 100 07/04/18 19:08 90 17 28 07/04/18 19:00 89 18 119/51 (73) 100 07/04/18 18:30 89 15 123/57 (79) 100 07/04/18 18:00 89 17 120/66 (84) 100 Intake and Output 07/04/18 07/05/18 19:00 07:00 Intake Total 579.04 ml 387.33 ml Output Total 0 ml 0 ml Balance 579.04 ml 387.33 ml Free Water 30 ml IV Total 579.04 ml 357.33 ml Output Urine Total 0 ml 0 ml # Bowel Movements 2 Laboratory Tests Test 07/05/18 04:10 07/05/18 13:30 White Blood Count 7.5 K/UL (4.8-10.8) Red Blood Count 3.06 M/UL (4.20-5.40) L Hemoglobin 8.2 G/DL (12.0-16.0) L Hematocrit 26.2 % (37.0-47.0) L Mean Corpuscular Volume 86 FL (80-99) Mean Corpuscular Hemoglobin 26.7 PG (27.0-31.0) L Mean Corpuscular Hemoglobin Concent 31.1 G/DL (32.0-36.0) L Red Cell Distribution Width 14.5 % (11.6-14.8) Platelet Count 107 K/UL (150-450) L Mean Platelet Volume 8.2 FL (6.5-10.1) Neutrophils (%) (Auto) 72.0 % (45.0-75.0) Lymphocytes (%) (Auto) 14.7 % (20.0-45.0) L Monocytes (%) (Auto) 8.2 % (1.0-10.0) Eosinophils (%) (Auto) 4.4 % (0.0-3.0) H Basophils (%) (Auto) 0.7 % (0.0-2.0) Sodium Level 135 MMOL/L (136-145) L Potassium Level 3.6 MMOL/L (3.5-5.1) Chloride Level 101 MMOL/L (98-107) Carbon Dioxide Level 27 MMOL/L (21-32) Anion Gap 8 mmol/L (5-15) Blood Urea Nitrogen 30 mg/dL (7-18) H Creatinine 4.7 MG/DL (0.55-1.30) H Estimat Glomerular Filtration Rate 11.2 mL/min (>60) Glucose Level 63 MG/DL (74-106) L Calcium Level 8.1 MG/DL (8.5-10.1) L Phosphorus Level 3.7 MG/DL (2.5-4.9) Total Bilirubin 0.5 MG/DL (0.2-1.0) Aspartate Amino Transf (AST/SGOT) 17 U/L (15-37) Alanine Aminotransferase (ALT/SGPT) < 6 U/L (12-78) L Alkaline Phosphatase 115 U/L (46-116) Total Protein 6.3 G/DL (6.4-8.2) L Albumin 1.5 G/DL (3.4-5.0) L Globulin 4.8 g/dL Albumin/Globulin Ratio 0.3 (1.0-2.7) L Arterial Blood pH 7.435 (7.350-7.450) Arterial Blood Partial Pressure CO2 49.1 mmHg (35.0-45.0) H Arterial Blood Partial Pressure O2 73.2 mmHg (75.0-100.0) L Arterial Blood HCO3 32.2 mmol/L (22.0-26.0) H Arterial Blood Oxygen Saturation 94.3 % (95-100) L Arterial Blood Base Excess 7.1 (-2-2) H Nicola Test Positive Height (Feet): 5 Height (Inches): 6.00 Weight (Pounds): 238 Objective More awake Follows commands On vent Right arm av shunt + thrill cvs rrr lungs rhonchi b/l Right amp stump c/d/i Left heel wound vac in place Assessment/Plan Assessment Resp failure--improving awaiting extubation Pleural effusion and likely has underlying pneumonia ESRD on HD via patent right arm av shunt 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
--- NOTE | 2018-07-05 18:18 | Podiatric Progress Note ---
Assessment/Plan Patient Evita Jorge is a 72 year old female who was admitted on Jun 13, 2018 at 01: 43 with Assessment/Plan - Duplicate note, Entered in error. Disregard. Subjective Allergies: Coded Allergies: BENAZEPRIL (Verified Allergy, Unknown, 06/12/18) CODEINE (Verified Allergy, Unknown, 06/12/18) INSULIN ASPART (Verified Allergy, Unknown, 06/12/18) INSULIN DETEMIR (Verified Allergy, Unknown, 06/12/18) OPIOIDS - MORPHINE ANALOGUES (Verified Allergy, Unknown, 06/12/18) Subjective Pt seen bedside. NAD, recently extubated. Objective Exam Last 24 Hour Vital Signs Date Time Temp Pulse Resp B/P (MAP) Pulse Ox O2 Delivery O2 Flow Rate FiO2 07/05/18 18:00 75 18 133/66 (88) 97 07/05/18 17:00 78 20 99/80 (86) 97 07/05/18 16:00 75 07/05/18 16:00 73 17 137/65 (89) 97 07/05/18 15:15 Venturi Mask 8.0 30 07/05/18 15:10 Venturi Mask 8.0 07/05/18 15:00 74 18 151/81 (104) 99 07/05/18 14:00 60 17 122/52 (75) 100 07/05/18 14:00 73 17 137/65 (89) 97 07/05/18 13:52 74 19 28 07/05/18 13:10 99 07/05/18 13:00 60 20 131/59 (83) 100 07/05/18 12:00 Mechanical Ventilator 07/05/18 12:00 75 07/05/18 12:00 60 15 113/49 (70) 100 07/05/18 11:00 74 17 132/62 (85) 100 07/05/18 10:52 78 17 28 07/05/18 10:00 71 16 123/59 (80) 100 07/05/18 09:00 70 16 112/49 (70) 100 07/05/18 08:00 71 07/05/18 08:00 71 16 117/49 (71) 100 07/05/18 08:00 Mechanical Ventilator 07/05/18 07:19 71 15 28 07/05/18 07:00 98.2 70 15 117/50 (72) 100 07/05/18 06:00 73 16 116/51 (72) 100 07/05/18 05:15 72 15 28 07/05/18 05:00 73 16 122/58 (79) 100 07/05/18 04:30 72 15 113/47 (69) 100 07/05/18 04:00 Mechanical Ventilator 07/05/18 04:00 71 07/05/18 04:00 98.9 73 16 123/56 (78) 100 07/05/18 03:30 73 15 108/54 (72) 100 07/05/18 03:00 72 15 99/78 (85) 100 07/05/18 02:55 73 15 28 07/05/18 02:30 75 16 101/52 (68) 100 07/05/18 02:00 75 15 103/52 (69) 100 07/05/18 01:30 76 16 133/88 (103) 100 07/05/18 01:04 85 16 28 07/05/18 01:00 78 15 134/50 (78) 100 07/05/18 00:30 79 15 131/52 (78) 100 07/05/18 00:00 99.4 80 18 123/53 (76) 100 07/05/18 00:00 79 07/05/18 00:00 Mechanical Ventilator 07/04/18 23:30 79 16 122/50 (74) 100 07/04/18 23:29 82 16 28 07/04/18 23:00 82 16 133/46 (75) 100 07/04/18 22:30 83 16 115/67 (83) 100 07/04/18 22:00 84 16 133/54 (80) 100 07/04/18 21:30 85 16 105/80 (88) 100 07/04/18 21:07 89 20 28 07/04/18 21:00 86 16 127/47 (73) 100 07/04/18 20:30 89 16 126/62 (83) 100 07/04/18 20:00 98.8 88 18 126/57 (80) 100 07/04/18 20:00 87 07/04/18 20:00 Mechanical Ventilator 07/04/18 20:00 28 07/04/18 19:30 86 17 115/63 (80) 100 07/04/18 19:08 90 17 28 07/04/18 19:00 89 18 119/51 (73) 100 07/04/18 18:30 89 15 123/57 (79) 100 Laboratory Tests Test 07/05/18 04:10 07/05/18 13:30 White Blood Count 7.5 K/UL (4.8-10.8) Red Blood Count 3.06 M/UL (4.20-5.40) L Hemoglobin 8.2 G/DL (12.0-16.0) L Hematocrit 26.2 % (37.0-47.0) L Mean Corpuscular Volume 86 FL (80-99) Mean Corpuscular Hemoglobin 26.7 PG (27.0-31.0) L Mean Corpuscular Hemoglobin Concent 31.1 G/DL (32.0-36.0) L Red Cell Distribution Width 14.5 % (11.6-14.8) Platelet Count 107 K/UL (150-450) L Mean Platelet Volume 8.2 FL (6.5-10.1) Neutrophils (%) (Auto) 72.0 % (45.0-75.0) Lymphocytes (%) (Auto) 14.7 % (20.0-45.0) L Monocytes (%) (Auto) 8.2 % (1.0-10.0) Eosinophils (%) (Auto) 4.4 % (0.0-3.0) H Basophils (%) (Auto) 0.7 % (0.0-2.0) Sodium Level 135 MMOL/L (136-145) L Potassium Level 3.6 MMOL/L (3.5-5.1) Chloride Level 101 MMOL/L (98-107) Carbon Dioxide Level 27 MMOL/L (21-32) Anion Gap 8 mmol/L (5-15) Blood Urea Nitrogen 30 mg/dL (7-18) H Creatinine 4.7 MG/DL (0.55-1.30) H Estimat Glomerular Filtration Rate 11.2 mL/min (>60) Glucose Level 63 MG/DL (74-106) L Calcium Level 8.1 MG/DL (8.5-10.1) L Phosphorus Level 3.7 MG/DL (2.5-4.9) Total Bilirubin 0.5 MG/DL (0.2-1.0) Aspartate Amino Transf (AST/SGOT) 17 U/L (15-37) Alanine Aminotransferase (ALT/SGPT) < 6 U/L (12-78) L Alkaline Phosphatase 115 U/L (46-116) Total Protein 6.3 G/DL (6.4-8.2) L Albumin 1.5 G/DL (3.4-5.0) L Globulin 4.8 g/dL Albumin/Globulin Ratio 0.3 (1.0-2.7) L Arterial Blood pH 7.435 (7.350-7.450) Arterial Blood Partial Pressure CO2 49.1 mmHg (35.0-45.0) H Arterial Blood Partial Pressure O2 73.2 mmHg (75.0-100.0) L Arterial Blood HCO3 32.2 mmol/L (22.0-26.0) H Arterial Blood Oxygen Saturation 94.3 % (95-100) L Arterial Blood Base Excess 7.1 (-2-2) H Nicola Test Positive Microbiology Date/Time Source Procedure Growth Status 06/30/18 18:55 Blood Blood Culture - Preliminary NO GROWTH AFTER 4 DAYS Resulted 06/30/18 12:20 Body Fluid Gram Stain - Final Complete 06/30/18 12:20 Body Fluid Body Fluid Culture - Final NO GROWTH Complete 06/14/18 10:50 Other Gram Stain - Final Complete 06/14/18 10:50 Wound Culture - Final Pseudomonas Aeruginosa Morganella Morg Spp Morganii Streptococcus Group B Complete 07/04/18 01:00 Sputum Induced Gram Stain - Final Resulted 07/04/18 01:00 Sputum Induced Sputum Culture Pending Resulted 06/14/18 10:50 Stool Clostridium difficile Toxin Assay - Final Complete 06/13/18 03:00 Rectum VRE Culture - Final Enterococcus Faecium - Vre Complete Shen Arizmendi DPM Jul 05, 2018 18:18
--- NOTE | 2018-07-05 18:22 | Podiatric Progress Note ---
Assessment/Plan Patient Evita Jorge is a 72 year old female who was admitted on Jun 13, 2018 at 01: 43 with Assessment/Plan Problems: (1) Anemia of chronic disease (2) Bilateral pleural effusion (3) Peripheral vascular disease (4) DM2 (diabetes mellitus, type 2) (5) Left heel unstageable pressure ulcer with black eschar adhered to wound bed (6) acute on chronic anemia Assessment/Plan - Pt seen and evaluated. - Chart reviewed. - Temp, 98.2 - WBC, 7.5 - Left ankle MRI confirm chronic OM. Abx per ID. - No acute SOI noted to Left heel. Cont vac therapy. - Temp dressing applied to LLE, continue wound vac therapy tomorrow, correspondence confirmed with wound care nurse CHAPIS Barahona. 125mmHg, Continuous. - Pod will cont to monitor. Subjective Allergies: Coded Allergies: BENAZEPRIL (Verified Allergy, Unknown, 06/12/18) CODEINE (Verified Allergy, Unknown, 06/12/18) INSULIN ASPART (Verified Allergy, Unknown, 06/12/18) INSULIN DETEMIR (Verified Allergy, Unknown, 06/12/18) OPIOIDS - MORPHINE ANALOGUES (Verified Allergy, Unknown, 06/12/18) Subjective Dermatological Dermatological Narrative Focused: LLE Wound Vac D/C, wound evaluated. Wound base noted to SubQ. Granular base noted. Tanya-wound margins are hyper-pigmented. No active purulence noted. No acute SOI. Objective Exam Last 24 Hour Vital Signs Date Time Temp Pulse Resp B/P (MAP) Pulse Ox O2 Delivery O2 Flow Rate FiO2 07/05/18 18:00 75 18 133/66 (88) 97 07/05/18 17:00 78 20 99/80 (86) 97 07/05/18 16:00 75 07/05/18 16:00 73 17 137/65 (89) 97 07/05/18 15:15 98 Venturi Mask 8.0 30 07/05/18 15:15 Venturi Mask 8.0 30 07/05/18 15:15 Venturi Mask 8.0 30 07/05/18 15:10 Venturi Mask 8.0 07/05/18 15:00 74 18 151/81 (104) 99 07/05/18 14:00 60 17 122/52 (75) 100 07/05/18 14:00 73 17 137/65 (89) 97 07/05/18 13:52 74 19 28 07/05/18 13:10 99 07/05/18 13:00 60 20 131/59 (83) 100 07/05/18 12:00 Mechanical Ventilator 07/05/18 12:00 75 07/05/18 12:00 60 15 113/49 (70) 100 07/05/18 11:00 74 17 132/62 (85) 100 07/05/18 10:52 78 17 28 07/05/18 10:00 71 16 123/59 (80) 100 07/05/18 09:00 70 16 112/49 (70) 100 07/05/18 08:00 71 07/05/18 08:00 71 16 117/49 (71) 100 07/05/18 08:00 Mechanical Ventilator 07/05/18 07:19 71 15 28 07/05/18 07:00 98.2 70 15 117/50 (72) 100 07/05/18 06:00 73 16 116/51 (72) 100 07/05/18 05:15 72 15 28 07/05/18 05:00 73 16 122/58 (79) 100 07/05/18 04:30 72 15 113/47 (69) 100 07/05/18 04:00 Mechanical Ventilator 07/05/18 04:00 71 07/05/18 04:00 98.9 73 16 123/56 (78) 100 07/05/18 03:30 73 15 108/54 (72) 100 07/05/18 03:00 72 15 99/78 (85) 100 07/05/18 02:55 73 15 28 07/05/18 02:30 75 16 101/52 (68) 100 07/05/18 02:00 75 15 103/52 (69) 100 07/05/18 01:30 76 16 133/88 (103) 100 07/05/18 01:04 85 16 28 07/05/18 01:00 78 15 134/50 (78) 100 07/05/18 00:30 79 15 131/52 (78) 100 07/05/18 00:00 99.4 80 18 123/53 (76) 100 07/05/18 00:00 79 07/05/18 00:00 Mechanical Ventilator 12/11/18 23:30 79 16 122/50 (74) 100 07/04/18 23:29 82 16 28 07/04/18 23:00 82 16 133/46 (75) 100 07/04/18 22:30 83 16 115/67 (83) 100 07/04/18 22:00 84 16 133/54 (80) 100 07/04/18 21:30 85 16 105/80 (88) 100 07/04/18 21:07 89 20 28 07/04/18 21:00 86 16 127/47 (73) 100 07/04/18 20:30 89 16 126/62 (83) 100 07/04/18 20:00 98.8 88 18 126/57 (80) 100 07/04/18 20:00 87 07/04/18 20:00 Mechanical Ventilator 07/04/18 20:00 28 07/04/18 19:30 86 17 115/63 (80) 100 07/04/18 19:08 90 17 28 07/04/18 19:00 89 18 119/51 (73) 100 07/04/18 18:30 89 15 123/57 (79) 100 Laboratory Tests Test 07/05/18 04:10 07/05/18 13:30 White Blood Count 7.5 K/UL (4.8-10.8) Red Blood Count 3.06 M/UL (4.20-5.40) L Hemoglobin 8.2 G/DL (12.0-16.0) L Hematocrit 26.2 % (37.0-47.0) L Mean Corpuscular Volume 86 FL (80-99) Mean Corpuscular Hemoglobin 26.7 PG (27.0-31.0) L Mean Corpuscular Hemoglobin Concent 31.1 G/DL (32.0-36.0) L Red Cell Distribution Width 14.5 % (11.6-14.8) Platelet Count 107 K/UL (150-450) L Mean Platelet Volume 8.2 FL (6.5-10.1) Neutrophils (%) (Auto) 72.0 % (45.0-75.0) Lymphocytes (%) (Auto) 14.7 % (20.0-45.0) L Monocytes (%) (Auto) 8.2 % (1.0-10.0) Eosinophils (%) (Auto) 4.4 % (0.0-3.0) H Basophils (%) (Auto) 0.7 % (0.0-2.0) Sodium Level 135 MMOL/L (136-145) L Potassium Level 3.6 MMOL/L (3.5-5.1) Chloride Level 101 MMOL/L (98-107) Carbon Dioxide Level 27 MMOL/L (21-32) Anion Gap 8 mmol/L (5-15) Blood Urea Nitrogen 30 mg/dL (7-18) H Creatinine 4.7 MG/DL (0.55-1.30) H Estimat Glomerular Filtration Rate 11.2 mL/min (>60) Glucose Level 63 MG/DL (74-106) L Calcium Level 8.1 MG/DL (8.5-10.1) L Phosphorus Level 3.7 MG/DL (2.5-4.9) Total Bilirubin 0.5 MG/DL (0.2-1.0) Aspartate Amino Transf (AST/SGOT) 17 U/L (15-37) Alanine Aminotransferase (ALT/SGPT) < 6 U/L (12-78) L Alkaline Phosphatase 115 U/L (46-116) Total Protein 6.3 G/DL (6.4-8.2) L Albumin 1.5 G/DL (3.4-5.0) L Globulin 4.8 g/dL Albumin/Globulin Ratio 0.3 (1.0-2.7) L Arterial Blood pH 7.435 (7.350-7.450) Arterial Blood Partial Pressure CO2 49.1 mmHg (35.0-45.0) H Arterial Blood Partial Pressure O2 73.2 mmHg (75.0-100.0) L Arterial Blood HCO3 32.2 mmol/L (22.0-26.0) H Arterial Blood Oxygen Saturation 94.3 % (95-100) L Arterial Blood Base Excess 7.1 (-2-2) H Nicola Test Positive Microbiology Date/Time Source Procedure Growth Status 06/30/18 18:55 Blood Blood Culture - Preliminary NO GROWTH AFTER 4 DAYS Resulted 06/30/18 12:20 Body Fluid Gram Stain - Final Complete 06/30/18 12:20 Body Fluid Body Fluid Culture - Final NO GROWTH Complete 06/14/18 10:50 Other Gram Stain - Final Complete 06/14/18 10:50 Wound Culture - Final Pseudomonas Aeruginosa Morganella Morg Spp Morganii Streptococcus Group B Complete 07/04/18 01:00 Sputum Induced Gram Stain - Final Resulted 07/04/18 01:00 Sputum Induced Sputum Culture Pending Resulted 06/14/18 10:50 Stool Clostridium difficile Toxin Assay - Final Complete 06/13/18 03:00 Rectum VRE Culture - Final Enterococcus Faecium - Vre Complete Shen Arizmendi DPM Jul 05, 2018 18:22
--- NOTE | 2018-07-05 18:25 | NUR ---
NURSE NOTES: Dr Rolon assessed patient in the ICU. New orders for swallow evaluation, ABG, and chest x-ray. Will continue to monitor patient and follow plan of care.
[2018-07-05] MEDS: DOPamine 400mg/250ml 250 ML IV SCH (18:45)
--- NOTE | 2018-07-05 19:00 | NUR ---
HAND-OFF: Report given to CHAPIS Dela Cruz.
--- NOTE | 2018-07-05 19:00 | NUR ---
NURSE NOTES: Report received from [place] [place]. Patient Sinus rhythm on potline monitor in 70s. Patient is awake and content, Oriented x2-3. Patient is s/p extubation today around 1500 and now on Venturi mask 55%/12L, SpO2 saturation at 100%. Kept NPO as per order until swallow evaluation, Right BKA and Left heel wound open to air , s/p wound vac, Right AV shunt for HD access. Left UA midline patent and asymptomatic. D10 1/2NS is running at 30cc/hr. Bed in lowest position. Side rails up x3. Patient BP is 124/89, temperature is 99.1F and RR is 18, will monitor patients progress closely.
--- NOTE | 2018-07-05 20:00 | NUR ---
NURSE NOTES: Patient changed and cleaned with CHG soap. Repositioned and suctioned. 1 small BM. Sacral dressing applied. Oral care performed. Patient remains on Venturi Mask with 30% fio2. Saturating at 100%. Will continue to monitor patients progress.
--- NOTE | 2018-07-05 21:20 | Cardiology Progress Note ---
Assessment/Plan Assessment/Plan congestive heart failure, severe MR, right ventricular dilatation and dysfunction (my interpretation) right heart failure and left heart failure, edema, hopefully will be extubated today and will try to wean off Dobutamine after extubation concerned that her BP will go down off Dobutamine and Dopamine Subjective Subjective The patient is seen in the morning, she is doing better and prepares to be extubated Objective Last 24 Hour Vital Signs Date Time Temp Pulse Resp B/P (MAP) Pulse Ox O2 Delivery O2 Flow Rate FiO2 07/05/18 19:25 Venturi Mask 8.0 30 07/05/18 19:24 100 Venturi Mask 8.0 30 07/05/18 18:00 97.6 75 18 133/66 (88) 97 07/05/18 17:00 78 20 99/80 (86) 97 07/05/18 16:00 75 07/05/18 16:00 73 17 137/65 (89) 97 07/05/18 15:15 98 Venturi Mask 8.0 30 07/05/18 15:15 Venturi Mask 8.0 30 07/05/18 15:15 Venturi Mask 8.0 30 07/05/18 15:10 Venturi Mask 8.0 07/05/18 15:00 74 18 151/81 (104) 99 07/05/18 14:00 60 17 122/52 (75) 100 07/05/18 14:00 73 17 137/65 (89) 97 07/05/18 13:52 74 19 28 07/05/18 13:10 99 07/05/18 13:00 60 20 131/59 (83) 100 07/05/18 12:00 Mechanical Ventilator 07/05/18 12:00 75 07/05/18 12:00 60 15 113/49 (70) 100 07/05/18 11:00 74 17 132/62 (85) 100 07/05/18 10:52 78 17 28 07/05/18 10:00 71 16 123/59 (80) 100 07/05/18 09:00 70 16 112/49 (70) 100 07/05/18 08:00 71 07/05/18 08:00 71 16 117/49 (71) 100 07/05/18 08:00 Mechanical Ventilator 07/05/18 07:19 71 15 28 07/05/18 07:00 98.2 70 15 117/50 (72) 100 07/05/18 06:00 73 16 116/51 (72) 100 07/05/18 05:15 72 15 28 07/05/18 05:00 73 16 122/58 (79) 100 07/05/18 04:30 72 15 113/47 (69) 100 07/05/18 04:00 Mechanical Ventilator 07/05/18 04:00 71 07/05/18 04:00 98.9 73 16 123/56 (78) 100 07/05/18 03:30 73 15 108/54 (72) 100 07/05/18 03:00 72 15 99/78 (85) 100 07/05/18 02:55 73 15 28 07/05/18 02:30 75 16 101/52 (68) 100 07/05/18 02:00 75 15 103/52 (69) 100 07/05/18 01:30 76 16 133/88 (103) 100 07/05/18 01:04 85 16 28 07/05/18 01:00 78 15 134/50 (78) 100 07/05/18 00:30 79 15 131/52 (78) 100 07/05/18 00:00 99.4 80 18 123/53 (76) 100 07/05/18 00:00 79 07/05/18 00:00 Mechanical Ventilator 07/04/18 23:30 79 16 122/50 (74) 100 07/04/18 23:29 82 16 28 07/04/18 23:00 82 16 133/46 (75) 100 07/04/18 22:30 83 16 115/67 (83) 100 07/04/18 22:00 84 16 133/54 (80) 100 07/04/18 21:30 85 16 105/80 (88) 100 General Appearance: on vent, other - severe edema EENT: other Neck: JVD Rhythm: NSR Cardiovascular: regular rhythm, systolic murmur Respiratory/Chest: crackles/rales Abdomen: distended Extremities: other - right AKA, left wound on the heel Intake and Output 07/04/18 07/05/18 19:00 07:00 Intake Total 579.04 ml 387.33 ml Output Total 0 ml 0 ml Balance 579.04 ml 387.33 ml Free Water 30 ml IV Total 579.04 ml 357.33 ml Output Urine Total 0 ml 0 ml # Bowel Movements 2 Laboratory Tests Test 07/05/18 04:10 07/05/18 13:30 White Blood Count 7.5 K/UL (4.8-10.8) Red Blood Count 3.06 M/UL (4.20-5.40) L Hemoglobin 8.2 G/DL (12.0-16.0) L Hematocrit 26.2 % (37.0-47.0) L Mean Corpuscular Volume 86 FL (80-99) Mean Corpuscular Hemoglobin 26.7 PG (27.0-31.0) L Mean Corpuscular Hemoglobin Concent 31.1 G/DL (32.0-36.0) L Red Cell Distribution Width 14.5 % (11.6-14.8) Platelet Count 107 K/UL (150-450) L Mean Platelet Volume 8.2 FL (6.5-10.1) Neutrophils (%) (Auto) 72.0 % (45.0-75.0) Lymphocytes (%) (Auto) 14.7 % (20.0-45.0) L Monocytes (%) (Auto) 8.2 % (1.0-10.0) Eosinophils (%) (Auto) 4.4 % (0.0-3.0) H Basophils (%) (Auto) 0.7 % (0.0-2.0) Sodium Level 135 MMOL/L (136-145) L Potassium Level 3.6 MMOL/L (3.5-5.1) Chloride Level 101 MMOL/L (98-107) Carbon Dioxide Level 27 MMOL/L (21-32) Anion Gap 8 mmol/L (5-15) Blood Urea Nitrogen 30 mg/dL (7-18) H Creatinine 4.7 MG/DL (0.55-1.30) H Estimat Glomerular Filtration Rate 11.2 mL/min (>60) Glucose Level 63 MG/DL (74-106) L Calcium Level 8.1 MG/DL (8.5-10.1) L Phosphorus Level 3.7 MG/DL (2.5-4.9) Total Bilirubin 0.5 MG/DL (0.2-1.0) Aspartate Amino Transf (AST/SGOT) 17 U/L (15-37) Alanine Aminotransferase (ALT/SGPT) < 6 U/L (12-78) L Alkaline Phosphatase 115 U/L (46-116) Total Protein 6.3 G/DL (6.4-8.2) L Albumin 1.5 G/DL (3.4-5.0) L Globulin 4.8 g/dL Albumin/Globulin Ratio 0.3 (1.0-2.7) L Arterial Blood pH 7.435 (7.350-7.450) Arterial Blood Partial Pressure CO2 49.1 mmHg (35.0-45.0) H Arterial Blood Partial Pressure O2 73.2 mmHg (75.0-100.0) L Arterial Blood HCO3 32.2 mmol/L (22.0-26.0) H Arterial Blood Oxygen Saturation 94.3 % (95-100) L Arterial Blood Base Excess 7.1 (-2-2) H Nicola Test Positive Microbiology Date/Time Source Procedure Growth Status 07/04/18 01:00 Sputum Induced Gram Stain - Final Resulted 07/04/18 01:00 Sputum Induced Sputum Culture Pending Resulted Clarisse Daley MD Jul 05, 2018 21:20
--- NOTE | 2018-07-05 22:00 | NUR ---
NURSE NOTES: Patient repositioned, and pillows adjusted. BP continues to remains stable. No acute distress at this time.
[2018-07-05] MEDS: LORazepam Inj 2mg/ml 1ml IV PRN (22:10)
[2018-07-05] MEDS: Dyna-Hex 2% Top Sol 2oz TOPIC SCH (22:10)
[2018-07-06] VITALS (24 sets, daily range): BP systolic 83–120; BP diastolic 48–80
--- NOTE | 2018-07-06 | NUR ---
NURSE NOTES: Patient repositioned and pillows adjusted. No acute distress, remains on the venturi mask. Spo2 100%.
--- NOTE | 2018-07-06 02:00 | NUR ---
NURSE NOTES: Patient complaining of dizziness. Glucose showed reading of 52. 1 amp of d50 provided. BP is 111/60 (72). Will continue to monitor patients progress.
--- NOTE | 2018-07-06 04:00 | NUR ---
NURSE NOTES: Patient repositioned and cleaned, patient is sleeping at this time. VS remains stable. Remains on the venturi mask 30%/8L.
[2018-07-06] MEDS: NovoLOG Insulin Flexpen SUBQ SCH ×4 (05:41→21:13)
--- NOTE | 2018-07-06 06:00 | NUR ---
NURSE NOTES: Repositioned and pillows adjusted, vitals remains stable, Glucose this morning is 111, no coverage provided.
[2018-07-06] MEDS ORDERED: Vancomycin 1gm in D5W 275ml IVPB SCH (07:00)
--- NOTE | 2018-07-06 07:40 | NUR ---
NURSE NOTES: Report received from Jose De Jesus Mach[facility]. Pt alert and oriented x4, able to make needs known. Pt on saw cleaner SR in 70s. Pt on venturi mask 30% saturating 100%. Pt denies pain or discomfort at this time. Safety measures in place with bed locked in lowest position, side rails x2 up and call light within reach. Will continue to monitor and continue plan of care.
--- NOTE | 2018-07-06 08:22 | Nephrology Progress Note ---
Assessment/Plan Plan MOF Intubated. B Pleural effusion Anasarca decreasing. HD MWF. Hypoglycemia raises the suspicion of smoldering sepsis. Avoid misreading BP by misplacing cuff. Subjective Subjective Off pressors. Extubated! No events overnight. Objective Objective Last 24 Hour Vital Signs Date Time Temp Pulse Resp B/P (MAP) Pulse Ox O2 Delivery O2 Flow Rate FiO2 07/06/18 08:00 98.0 19 110/78 (89) 100 07/06/18 08:00 Venturi Mask 8.0 Venturi Mask 8.0 07/06/18 07:00 61 17 105/56 (72) 100 07/06/18 06:00 62 17 115/67 (83) 100 07/06/18 05:00 59 13 102/56 (71) 100 07/06/18 04:00 98.2 55 15 120/75 (90) 100 07/06/18 04:00 59 07/06/18 04:00 Venturi Mask 8.0 Venturi Mask 8.0 07/06/18 03:00 60 13 105/80 (88) 100 07/06/18 02:00 62 16 111/60 (77) 100 07/06/18 01:00 64 14 110/55 (73) 100 07/06/18 00:00 8.0 30 07/06/18 00:00 98.7 67 13 111/59 (76) 100 07/06/18 00:00 Venturi Mask 8.0 Venturi Mask 8.0 07/06/18 00:00 65 07/05/18 23:00 72 17 124/63 (83) 100 07/05/18 22:00 64 14 109/52 (71) 100 07/05/18 21:00 68 16 113/56 (75) 100 07/05/18 20:00 Venturi Mask 8.0 Venturi Mask 8.0 07/05/18 20:00 79 07/05/18 20:00 10.0 30 07/05/18 20:00 97.0 72 19 122/55 (77) 99 07/05/18 19:25 Venturi Mask 8.0 30 07/05/18 19:24 100 Venturi Mask 8.0 30 07/05/18 19:00 70 18 126/65 (85) 100 07/05/18 18:00 97.6 75 18 133/66 (88) 97 07/05/18 17:00 78 20 99/80 (86) 97 07/05/18 16:00 75 07/05/18 16:00 73 17 137/65 (89) 97 07/05/18 15:15 98 Venturi Mask 8.0 30 07/05/18 15:15 Venturi Mask 8.0 30 07/05/18 15:15 Venturi Mask 8.0 30 07/05/18 15:10 Venturi Mask 8.0 07/05/18 15:00 74 18 151/81 (104) 99 07/05/18 14:00 60 17 122/52 (75) 100 07/05/18 14:00 73 17 137/65 (89) 97 07/05/18 13:52 74 19 28 07/05/18 13:10 99 07/05/18 13:00 60 20 131/59 (83) 100 07/05/18 12:00 Mechanical Ventilator 07/05/18 12:00 75 07/05/18 12:00 60 15 113/49 (70) 100 07/05/18 11:00 74 17 132/62 (85) 100 07/05/18 10:52 78 17 28 07/05/18 10:00 71 16 123/59 (80) 100 07/05/18 09:00 70 16 112/49 (70) 100 Intake and Output 07/05/18 07/06/18 19:00 07:00 Intake Total 410 ml 330 ml Output Total 2500 ml 0 ml Balance -2090 ml 330 ml IV Total 410 ml 330 ml Output Urine Total 0 ml 0 ml Hemodialysis UF 2500 ml # Bowel Movements 1 1 Laboratory Tests 07/05/18 13:30: Arterial Blood pH 7.435, Arterial Blood Partial Pressure CO2 49.1H, Arterial Blood Partial Pressure O2 73.2L, Arterial Blood HCO3 32.2H, Arterial Blood Oxygen Saturation 94.3L, Arterial Blood Base Excess 7.1H, Nicola Test Positive 07/06/18 04:00: Random Vancomycin Level 16.8 Height (Feet): 5 Height (Inches): 6.00 Weight (Pounds): 239 Objective Blind Cv RR Lungs more air movement L Lung. Abd SNT. BS + E Rt AKA stump clean. Lt. heel ulcer. Alert. Asking for food. Brenda Fuller MD Jul 06, 2018 08:22
[2018-07-06] MEDS ORDERED: Heparin Sod 1000 units/ml 10ml IV PRN (08:25)
[2018-07-06] MEDS: DOBUTamine Inj 500 MG in NS 210 ML IV SCH (08:32)
[2018-07-06] MEDS: Aspirin Baby 81mg ORAL SCH (08:33)
[2018-07-06] MEDS: Dextrose 10%/.45 SOD CHL 1,000 ML IV SCH (08:34)
[2018-07-06] MEDS: Heparin 5000 units/ml inj SUBQ SCH ×2 (08:36→21:13)
--- NOTE | 2018-07-06 08:45 | Critical Care Progress Note ---
Assessment/Plan Assessment/Plan IMPRESSION: 1. Respiratory failure, acute. 2. Evidence of hypercapnia. 3. Evidence of metabolic acidosis. 4. Evidence of pleural effusion. s/p tap 5. End-stage renal disease. 6. Elevated troponin. 7. Possible demand ischemia. 8. Severe protein-calorie malnutrition. 9. Hyponatremia. 10. Hyperkalemia. 11. Anemia. 12. Thrombocytopenia. 13. Mild coagulopathy. 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 15. mucous plugging s/p bronch PLAN off vent and stable monitor acid base CPT clear secretions respiratory care monitor fluid results ? need for repeat Tap; will follow up CXR today close follow up in ICU for now and may transition to [id number] monitor for imaging and change as needed medications/laboratory data/nursing notes/ICU care reviewed in detail note reviewed and edited care discussed with RN and RT ICU time spent 42 minutes Critical Care - Subjective Interval Events: stable no distress minimal congestion care reviewed in detail ROS Limited/Unobtainable: Yes Condition: improving EKG Rhythm: Sinus Rhythm I&O: Intake and Output 07/05/18 07/06/18 19:00 07:00 Intake Total 410 ml 330 ml Output Total 2500 ml 0 ml Balance -2090 ml 330 ml IV Total 410 ml 330 ml Output Urine Total 0 ml 0 ml Hemodialysis UF 2500 ml # Bowel Movements 1 1 Critical Care - Objective CXR: bilateral pleural effusions ET-Tube: 7.5 ET Position: 23 Last 24 Hour Vital Signs Date Time Temp Pulse Resp B/P (MAP) Pulse Ox O2 Delivery O2 Flow Rate FiO2 07/06/18 08:00 98.0 19 110/78 (89) 100 07/06/18 08:00 Venturi Mask 8.0 Venturi Mask 8.0 07/06/18 07:00 61 17 105/56 (72) 100 07/06/18 06:00 62 17 115/67 (83) 100 07/06/18 05:00 59 13 102/56 (71) 100 07/06/18 04:00 98.2 55 15 120/75 (90) 100 07/06/18 04:00 59 07/06/18 04:00 Venturi Mask 8.0 Venturi Mask 8.0 07/06/18 03:00 60 13 105/80 (88) 100 07/06/18 02:00 62 16 111/60 (77) 100 07/06/18 01:00 64 14 110/55 (73) 100 07/06/18 00:00 8.0 30 07/06/18 00:00 98.7 67 13 111/59 (76) 100 07/06/18 00:00 Venturi Mask 8.0 Venturi Mask 8.0 07/06/18 00:00 65 07/05/18 23:00 72 17 124/63 (83) 100 07/05/18 22:00 64 14 109/52 (71) 100 07/05/18 21:00 68 16 113/56 (75) 100 07/05/18 20:00 Venturi Mask 8.0 Venturi Mask 8.0 07/05/18 20:00 79 07/05/18 20:00 10.0 30 07/05/18 20:00 97.0 72 19 122/55 (77) 99 07/05/18 19:25 Venturi Mask 8.0 30 07/05/18 19:24 100 Venturi Mask 8.0 30 07/05/18 19:00 70 18 126/65 (85) 100 07/05/18 18:00 97.6 75 18 133/66 (88) 97 07/05/18 17:00 78 20 99/80 (86) 97 07/05/18 16:00 75 07/05/18 16:00 73 17 137/65 (89) 97 07/05/18 15:15 98 Venturi Mask 8.0 30 07/05/18 15:15 Venturi Mask 8.0 30 07/05/18 15:15 Venturi Mask 8.0 30 07/05/18 15:10 Venturi Mask 8.0 07/05/18 15:00 74 18 151/81 (104) 99 07/05/18 14:00 60 17 122/52 (75) 100 07/05/18 14:00 73 17 137/65 (89) 97 07/05/18 13:52 74 19 28 07/05/18 13:10 99 07/05/18 13:00 60 20 131/59 (83) 100 07/05/18 12:00 Mechanical Ventilator 07/05/18 12:00 75 07/05/18 12:00 60 15 113/49 (70) 100 07/05/18 11:00 74 17 132/62 (85) 100 07/05/18 10:52 78 17 28 07/05/18 10:00 71 16 123/59 (80) 100 07/05/18 09:00 70 16 112/49 (70) 100 Labs: Laboratory Tests Test 07/05/18 13:30 07/06/18 04:00 Arterial Blood pH 7.435 (7.350-7.450) Arterial Blood Partial Pressure CO2 49.1 mmHg (35.0-45.0) H Arterial Blood Partial Pressure O2 73.2 mmHg (75.0-100.0) L Arterial Blood HCO3 32.2 mmol/L (22.0-26.0) H Arterial Blood Oxygen Saturation 94.3 % (95-100) L Arterial Blood Base Excess 7.1 (-2-2) H Nicola Test Positive Random Vancomycin Level 16.8 ug/mL Objective: GENERAL: A well-developed female chronically ill. currently off the vent; alert HEENT: Overall negative. NECK: Supple. No jugular venous distention. LUNGS: Reduced breath sounds. no rhonchi or wheeze; stable CARDIAC: Normal S1 and S2. Regular rate and rhythm. without MRG ABDOMEN: Soft, nontender, and nondistended. no HSM; OGT out EXTREMITIES: No cyanosis or clubbing. The patient has a right above knee stump, left heel with ulcers. NEUROLOGIC: more alert; weak reviewed and edited Micro: Microbiology Date/Time Source Procedure Growth Status 07/04/18 01:00 Sputum Induced Gram Stain - Final Resulted 07/04/18 01:00 Sputum Culture - Preliminary Gram Negative Bacillus 1 Resulted Accucheck: 111 Gustavo Rolon MD Jul 06, 2018 08:45
--- NOTE | 2018-07-06 09:00 | NUR ---
NURSE NOTES: Discussed with Dr Rolon about ABG results. Dr ordered thoracentesis and to keep pt in ICU. Will continue to monitor.
--- NOTE | 2018-07-06 09:13 | Diagnostic Imaging Report ---
Indication: Shortness of breath, postextubation Technique: One view of the chest Comparison: 07/04/2018 Findings: Interim removal of previously demonstrated endotracheal and nasogastric tubes Interim complete opacification of the left hemithorax. Large right pleural effusion is again demonstrated, with decreased aeration of the right lung as compared to prior exam. Interstitial congestion on the right persists. Impression: Interim complete opacification of left hemithorax, likely due to combination of complete atelectasis of the left lung and large left pleural effusion. Large right pleural effusion, interstitial congestion of the residual aerated right lung Interim endotracheal and nasogastric extubation Dr. Rolon notified of findings at the time of interpretation by phone
--- NOTE | 2018-07-06 10:35 | NUR ---
CASE MANAGEMENT: REVIEW SI: ESRD ON HD . BILATERAL PLEURAL EFFUSION . ENCEPHALOPATHY . BRONCHOSCOPY 07/01 T 98.0 HR 59 RR 13 BP 102/56 SAT 100% VENTURI MASK 8.0 ABG: PH 7.316 PCO2 62.5 PO2 55.7 HCO3 31.2 O2 SAT 85.8 IS: DOPAMINE GTT PROCRIT SQ MWF DOBUTAMINE IV Q24HR D10 1/2 NS IVF @30ML/HR MEROPENEM IV Q24HR HEMODIALYSIS PRN NPO SWALLOW EVAL STEP DOWN UNIT STATUS DCP: PATIENT IS FROM [facility] PLAN: THORACENTESIS
--- NOTE | 2018-07-06 10:45 | NUR ---
NURSE NOTES: Swallow eval done. Ragman recommended soft ground diet. ordered diet. Will continue to monitor.
--- NOTE | 2018-07-06 11:15 | NUR ---
SWALLOW/SPEECH THERAPY NOTE: SEE SWALLOW EVAL DYSPHAGIA RISK FACTORS FOR THIS 72 Y.O.F.: ACUTE NSTEMI, CODE BLUE CALLED ON 07/01/18 AND INTUBATED FOR 5 DAYS UNTIL 07/05/18. LUNGS LARGE BILAT PLEURAL EFFUSIONS, CARIDOMEGALY, ADJACENT ATELECTASIS/CONSOLIDATION. H/O GERD (ON PROTONIX), DM2, ESRD ON DIALSYSIS, HTN, PSYCH CONSULT AT SNF PER POLST OK FOR LT ARTIFICIAL NUTRITION IF NEEDS PRIOR TO INTUBATION WAS ON CCHO-MED AND RENAL REG TEXTURE AND THIN LIQUID DIET WITH 5/50/75% INTAKE. AT SNF ON A RENAL 80 GM LOW K/NA CCHO DIET AND DOUBLE MEAT PORTIONS WITH NEPRO SUPPLEMENT. PATIENT IS BLIND, ALERT AND CONVERSANT WITH UPPER AND LOWER DENTURES FAIR FIT. ASKING FOR FOOD AND DISLIKES DOWNGRADED DIETS. ASKING FOR NO DAIRY, NO APPLE AND ORANGE JUICE, WANTS LEMONADE AND CRANBERRY JUICE. CURRENTLY ON A VENTURIMASK 8 LITERS 02. INITIAL IMPRESSIONS: S/S OF AT LEAST A MILD ORAL PREP DYSPHAGIA WITH MILD INCREASE IN ROTARY CHEWING OF MASTICATED SOLIDS BUT NO ORAL RESIDUE NOR OVERT S/S OF ASPIRATION. APPARENT GROSSLY FUNCTIONAL SWALLOW WITH FAIR HYOLARYNGEAL EXCURSION OF THIN LIQUIDS VIA CUP AND PUREED TSP. QUESTIONABLE IF SHE HAS A SILENT ASP RISK BUT NO NEURO DIAGNOSIS SEEN IN MEDICAL RECORD RECOMMENDATIONS: CON[facility] AND THIN LIQUIDS WITH POSTED ASPIRATION AND REFLUX PRECAUTIONS WITH ASSIST WITH MEALS. PER RD MAKE DIET TYPE CCHO-MED AND RENAL AND SEND HIGH COREY SUP IF NEEDS PER RD CONTINUE WITH DYSPHAGIA MANAGEMENT AND TX WILL F/UP WITH MEAL OBSERVATION BUT RN SHOULD FEEL FREE TO UPGRADE DIET TOLERATED IF INTAKE IS EFFICIENT AND ADEQUATE. QUESTIONABLE NEED FOR MOD BARIUM SWALLOW, WILL DETERMINE POST MEAL OBSERVATION EDUCATED/TRAINED RN (VANDANA) IN ASP PREC POSTED.
--- NOTE | 2018-07-06 11:33 | NUR ---
NURSE NOTES: Called IRC and spoke with Nicol and scheduled HD for tomorrow.
[2018-07-06 12:11] LABS: BASOPHILS % (AUTO) 0.8 % (0.0-2.0); EOSINOPHILS % (AUTO) 6.9 % (0.0-3.0); HEMATOCRIT 28.3 % (37.0-47.0); HEMOGLOBIN 8.3 G/DL (12.0-16.0); LYMPHOCYTES % (AUTO) 19.6 % (20.0-45.0); MEAN CORPUSCULAR VOLUME 88 FL (80-99); MONOCYTES % (AUTO) 10.1 % (1.0-10.0); NEUTROPHILS % (AUTO) 62.6 % (45.0-75.0); PLATELET COUNT 114 K/UL (150-450); RED BLOOD COUNT 3.22 M/UL (4.20-5.40); RED CELL DISTRIBUTION WIDTH 14.9 % (11.6-14.8); WHITE BLOOD COUNT 5.4 K/UL (4.8-10.8)
[2018-07-06 12:14] LABS: INR 1.2 (0.9-1.1)
--- NOTE | 2018-07-06 12:16 | Infectious Diseases Prog Note ---
Assessment/Plan Assessment/Plan A; Calcaneal osteomyelitis DM ESRD on HD AMS PVD Diabetic retinopathy Mitral & Tricuspid regurgitation Elevated troponin Hypotension resolved Pleural effusion s/p thoracentesis P; continue Meropenem & Vancomycin Subjective ROS Limited/Unobtainable: Yes Constitutional: Reports: no symptoms Respiratory: Reports: no symptoms Gastrointestinal/Abdominal: Reports: no symptoms Genitourinary: Reports: no symptoms Allergies: Coded Allergies: BENAZEPRIL (Verified Allergy, Unknown, 06/12/18) CODEINE (Verified Allergy, Unknown, 06/12/18) INSULIN ASPART (Verified Allergy, Unknown, 06/12/18) INSULIN DETEMIR (Verified Allergy, Unknown, 06/12/18) OPIOIDS - MORPHINE ANALOGUES (Verified Allergy, Unknown, 06/12/18) Objective Vital Signs Last 24 Hour Vital Signs Date Time Temp Pulse Resp B/P (MAP) Pulse Ox O2 Delivery O2 Flow Rate FiO2 07/06/18 11:00 63 15 115/61 (79) 100 07/06/18 10:00 62 13 117/62 (80) 100 07/06/18 09:00 60 15 112/66 (81) 100 07/06/18 08:00 98.0 19 110/78 (89) 100 07/06/18 08:00 Venturi Mask 8.0 Venturi Mask 8.0 07/06/18 08:00 80 07/06/18 07:00 61 17 105/56 (72) 100 07/06/18 06:00 62 17 115/67 (83) 100 07/06/18 05:00 59 13 102/56 (71) 100 07/06/18 04:00 98.2 55 15 120/75 (90) 100 07/06/18 04:00 59 07/06/18 04:00 Venturi Mask 8.0 Venturi Mask 8.0 07/06/18 03:00 60 13 105/80 (88) 100 07/06/18 02:00 62 16 111/60 (77) 100 07/06/18 01:00 64 14 110/55 (73) 100 07/06/18 00:00 8.0 30 07/06/18 00:00 98.7 67 13 111/59 (76) 100 07/06/18 00:00 Venturi Mask 8.0 Venturi Mask 8.0 12/13/18 00:00 65 07/05/18 23:00 72 17 124/63 (83) 100 07/05/18 22:00 64 14 109/52 (71) 100 07/05/18 21:00 68 16 113/56 (75) 100 07/05/18 20:00 Venturi Mask 8.0 Venturi Mask 8.0 07/05/18 20:00 79 07/05/18 20:00 10.0 30 07/05/18 20:00 97.0 72 19 122/55 (77) 99 07/05/18 19:25 Venturi Mask 8.0 30 07/05/18 19:24 100 Venturi Mask 8.0 30 07/05/18 19:00 70 18 126/65 (85) 100 07/05/18 18:00 97.6 75 18 133/66 (88) 97 07/05/18 17:00 78 20 99/80 (86) 97 07/05/18 16:00 75 07/05/18 16:00 73 17 137/65 (89) 97 07/05/18 15:15 98 Venturi Mask 8.0 30 07/05/18 15:15 Venturi Mask 8.0 30 07/05/18 15:15 Venturi Mask 8.0 30 07/05/18 15:10 Venturi Mask 8.0 07/05/18 15:00 74 18 151/81 (104) 99 07/05/18 14:00 60 17 122/52 (75) 100 07/05/18 14:00 73 17 137/65 (89) 97 07/05/18 13:52 74 19 28 07/05/18 13:10 99 07/05/18 13:00 60 20 131/59 (83) 100 Height (Feet): 5 Height (Inches): 6.00 Weight (Pounds): 239 General Appearance: no acute distress HEENT: mucous membranes moist Respiratory/Chest: decreased breath sounds, other - Oxygen by msk Cardiovascular: normal rate, other - PICC line & AV shunt Abdomen: soft, non tender Extremities: other - generl edema Neurologic/Psychiatric: alert, responsive Microbiology Date/Time Source Procedure Growth Status 07/04/18 01:00 Sputum Induced Gram Stain - Final Resulted 07/04/18 01:00 Sputum Culture - Preliminary Gram Negative Bacillus 1 Resulted Laboratory Tests Test 07/05/18 13:30 12/13/18 04:00 07/06/18 09:15 07/06/18 11:20 Arterial Blood pH 7.435 (7.350-7.450) 7.316 (7.350-7.450) Arterial Blood Partial Pressure CO2 49.1 mmHg (35.0-45.0) H 62.5 mmHg (35.0-45.0) *H Arterial Blood Partial Pressure O2 73.2 mmHg (75.0-100.0) L 55.7 mmHg (75.0-100.0) L Arterial Blood HCO3 32.2 mmol/L (22.0-26.0) H 31.2 mmol/L (22.0-26.0) H Arterial Blood Oxygen Saturation 94.3 % (95-100) L 85.8 % (95-100) *L Arterial Blood Base Excess 7.1 (-2-2) H 4.0 (-2-2) H Nicola Test Positive Positive Random Vancomycin Level 16.8 ug/mL White Blood Count 5.4 K/UL (4.8-10.8) Red Blood Count 3.22 M/UL (4.20-5.40) L Hemoglobin 8.3 G/DL (12.0-16.0) L Hematocrit 28.3 % (37.0-47.0) L Mean Corpuscular Volume 88 FL (80-99) Mean Corpuscular Hemoglobin 25.8 PG (27.0-31.0) L Mean Corpuscular Hemoglobin Concent 29.3 G/DL (32.0-36.0) L Red Cell Distribution Width 14.9 % (11.6-14.8) H Platelet Count 114 K/UL (150-450) L Mean Platelet Volume 9.2 FL (6.5-10.1) Neutrophils (%) (Auto) 62.6 % (45.0-75.0) Lymphocytes (%) (Auto) 19.6 % (20.0-45.0) L Monocytes (%) (Auto) 10.1 % (1.0-10.0) H Eosinophils (%) (Auto) 6.9 % (0.0-3.0) H Basophils (%) (Auto) 0.8 % (0.0-2.0) Prothrombin Time Pending Prothromb Time International Ratio Pending Activated Partial Thromboplast Time Pending Sodium Level Pending Potassium Level Pending Chloride Level Pending Carbon Dioxide Level Pending Blood Urea Nitrogen Pending Creatinine Pending Estimat Glomerular Filtration Rate Pending Glucose Level Pending Calcium Level Pending Magnesium Level Pending Total Bilirubin Pending Aspartate Amino Transf (AST/SGOT) Pending Alanine Aminotransferase (ALT/SGPT) Pending Alkaline Phosphatase Pending Total Protein Pending Albumin Pending Globulin Pending Current Medications Medications (Trade) Dose Ordered Sig/Andre Route PRN Reason Start Time Stop Time Status Last Admin Dose Admin Acetaminophen (Tylenol) 500 mg Q6H PRN ORAL Mild Pain/Temp > 100.5 06/28/18 20:00 07/28/18 19:59 07/01/18 00:32 Aspirin (ASA) 81 mg DAILY ORAL 06/29/18 09:00 07/13/18 08:59 07/05/18 11:05 Chlorhexidine Gluconate (Fabiola-Hex 2%) 1 applic DAILY@2000 TOPIC 06/28/18 20:00 07/18/18 19:59 07/05/18 22:10 Collagenase (Santyl) 1 applic DAILY TOPIC 06/29/18 09:00 07/13/18 08:59 07/06/18 08:34 Dextrose (Dextrose 50%) 25 ml Q30M PRN IV Hypoglycemia 06/28/18 18:45 07/17/18 20:14 07/04/18 20:52 Dextrose (Dextrose 50%) 50 ml Q30M PRN IV Hypoglycemia 06/28/18 18:45 07/17/18 20:14 07/06/18 02:22 Dextrose/Sodium Chloride 1,000 ml @ 30 mls/hr Q24H IV 06/30/18 09:00 07/30/18 08:59 07/06/18 08:34 Dobutamine HCl 500 mg/Sodium Chloride 250 ml @ 0 mls/hr Q24H IV 07/03/18 09:00 08/02/18 08:59 07/04/18 15:29 Dopamine HCl/ Dextrose 250 ml @ 0 mls/hr Q24H IV 06/28/18 18:45 07/28/18 18:44 07/01/18 11:41 Epoetin Marcus (Procrit (for ESRD on dialysis)) 7,000 units TUE-TUE-TUE SUBQ 07/07/18 21:00 08/06/18 20:59 Heparin Sodium (Porcine) (Heparin 5000 units/ml) 5,000 units EVERY 12 HOURS SUBQ 06/28/18 21:00 07/13/18 08:59 07/06/18 08:36 Heparin Sodium (Porcine) (Heparin Sod 1000 units/ml 10ml) 2,000 unit ONCE PRN IV DIALYSIS 07/06/18 08:25 07/07/18 23:59 Insulin Aspart (NovoLOG) BEFORE MEALS AND HS SUBQ 06/28/18 21:00 07/17/18 20:59 Lorazepam (Ativan 2mg/ml 1ml) 1 mg Q3H PRN IV For Anxiety 07/01/18 11:59 07/08/18 11:58 07/05/18 22:10 Meropenem 500 mg/ Sodium Chloride 55 ml @ 110 mls/hr Q24H IVPB 06/29/18 14:00 07/25/18 13:59 07/05/18 16:59 Pantoprazole (Protonix) 40 mg ACBREAKFAST ORAL 06/29/18 06:30 07/27/18 06:29 07/06/18 05:41 Sodium Chloride 1,000 ml @ 500 mls/hr Q2H PRN IVLG sbp<90 during hd 07/06/18 08:24 07/07/18 23:59 Vancomycin HCl (Vanco rx to dose) 1 ea DAILY PRN MISC Per rx protocol 06/29/18 08:15 07/29/18 08:14 Joe Melgar MD Jul 06, 2018 12:16
[2018-07-06 12:41] LABS: ALANINE AMINOTRANSFERASE 7 U/L (12-78); ALBUMIN 1.6 G/DL (3.4-5.0); ALBUMIN/GLOBULIN RATIO 0.3 (1.0-2.7); ALKALINE PHOSPHATASE 107 U/L (46-116); ANION GAP 4 mmol/L (5-15); ASPARTATE AMINO TRANSFERASE 13 U/L (15-37); BILIRUBIN,TOTAL 0.4 MG/DL (0.2-1.0); BLOOD UREA NITROGEN 21 mg/dL (7-18); CALCIUM 7.7 MG/DL (8.5-10.1); CARBON DIOXIDE 31 MMOL/L (21-32); CHLORIDE 101 MMOL/L (98-107); CREATININE 3.9 MG/DL (0.55-1.30); POTASSIUM 3.1 MMOL/L (3.5-5.1); SODIUM 136 MMOL/L (136-145)
--- NOTE | 2018-07-06 13:32 | NUR ---
Social Service Note Patient with a change of condition intubated 07/01 and extubated 07/05. Patient continues to require medical intervention and is medically unstable for discharge at this time. Patient is full code. Once appropriate patient will require SNF placement. Due to prolonged stay patient may require alternative placement depending on bed availability at previous facility. Will continue to monitor and assist as needed.
--- NOTE | 2018-07-06 13:45 | NUR ---
NURSE NOTES: [employer] and wound care nurse here to see pt Left foot wound. Woundvac dressing changed. Will continue to monitor.
--- NOTE | 2018-07-06 14:11 | Podiatric Progress Note ---
Assessment/Plan Patient Evita Jorge is a 72 year old female who was admitted on Jun 13, 2018 at 01: 43 with Assessment/Plan Problems: (1) Anemia of chronic disease (2) Bilateral pleural effusion (3) Peripheral vascular disease (4) DM2 (diabetes mellitus, type 2) (5) Left heel unstageable pressure ulcer with black eschar adhered to wound bed (6) acute on chronic anemia Assessment/Plan - Pt seen and evaluated. - Chart reviewed. - Temp, 98.2 - WBC, 7.5 - Left ankle MRI confirm chronic OM. Abx per ID. - No acute SOI noted to Left heel. Cont vac therapy. - Wound vac applied at bedside by wound care nursing staff, 100mmHg, Continuous. Keep vac dressing C/D/I. - Pod will cont to monitor. Subjective Allergies: Coded Allergies: BENAZEPRIL (Verified Allergy, Unknown, 06/12/18) CODEINE (Verified Allergy, Unknown, 06/12/18) INSULIN ASPART (Verified Allergy, Unknown, 06/12/18) INSULIN DETEMIR (Verified Allergy, Unknown, 06/12/18) OPIOIDS - MORPHINE ANALOGUES (Verified Allergy, Unknown, 06/12/18) Subjective Patient Pt seen at bedside with wound care nurse CHAPIS Barahona. Pt more alert at bedside, appears improved cognition. Resting at bedside. Objective Exam Last 24 Hour Vital Signs Date Time Temp Pulse Resp B/P (MAP) Pulse Ox O2 Delivery O2 Flow Rate FiO2 07/06/18 13:00 74 17 109/49 (69) 100 07/06/18 12:00 78 07/06/18 12:00 98.2 67 16 114/55 (74) 100 07/06/18 12:00 Venturi Mask 8.0 Venturi Mask 8.0 07/06/18 11:00 63 15 115/61 (79) 100 07/06/18 10:00 62 13 117/62 (80) 100 07/06/18 09:00 60 15 112/66 (81) 100 07/06/18 08:00 98.0 19 110/78 (89) 100 07/06/18 08:00 Venturi Mask 8.0 Venturi Mask 8.0 07/06/18 08:00 80 07/06/18 07:00 61 17 105/56 (72) 100 07/06/18 06:00 62 17 115/67 (83) 100 07/06/18 05:00 59 13 102/56 (71) 100 07/06/18 04:00 98.2 55 15 120/75 (90) 100 07/06/18 04:00 59 07/06/18 04:00 Venturi Mask 8.0 Venturi Mask 8.0 07/06/18 03:00 60 13 105/80 (88) 100 07/06/18 02:00 62 16 111/60 (77) 100 07/06/18 01:00 64 14 110/55 (73) 100 07/06/18 00:00 8.0 30 07/06/18 00:00 98.7 67 13 111/59 (76) 100 07/06/18 00:00 Venturi Mask 8.0 Venturi Mask 8.0 07/06/18 00:00 65 07/05/18 23:00 72 17 124/63 (83) 100 07/05/18 22:00 64 14 109/52 (71) 100 07/05/18 21:00 68 16 113/56 (75) 100 07/05/18 20:00 Venturi Mask 8.0 Venturi Mask 8.0 07/05/18 20:00 79 07/05/18 20:00 10.0 30 07/05/18 20:00 97.0 72 19 122/55 (77) 99 07/05/18 19:25 Venturi Mask 8.0 30 07/05/18 19:24 100 Venturi Mask 8.0 30 07/05/18 19:00 70 18 126/65 (85) 100 07/05/18 18:00 97.6 75 18 133/66 (88) 97 07/05/18 17:00 78 20 99/80 (86) 97 07/05/18 16:00 75 07/05/18 16:00 73 17 137/65 (89) 97 07/05/18 15:15 98 Venturi Mask 8.0 30 07/05/18 15:15 Venturi Mask 8.0 30 07/05/18 15:15 Venturi Mask 8.0 30 07/05/18 15:10 Venturi Mask 8.0 07/05/18 15:00 74 18 151/81 (104) 99 Laboratory Tests Test 07/06/18 04:00 07/06/18 09:15 07/06/18 11:20 Random Vancomycin Level 16.8 ug/mL Arterial Blood pH 7.316 (7.350-7.450) Arterial Blood Partial Pressure CO2 62.5 mmHg (35.0-45.0) *H Arterial Blood Partial Pressure O2 55.7 mmHg (75.0-100.0) L Arterial Blood HCO3 31.2 mmol/L (22.0-26.0) H Arterial Blood Oxygen Saturation 85.8 % (95-100) *L Arterial Blood Base Excess 4.0 (-2-2) H Nicola Test Positive White Blood Count 5.4 K/UL (4.8-10.8) Red Blood Count 3.22 M/UL (4.20-5.40) L Hemoglobin 8.3 G/DL (12.0-16.0) L Hematocrit 28.3 % (37.0-47.0) L Mean Corpuscular Volume 88 FL (80-99) Mean Corpuscular Hemoglobin 25.8 PG (27.0-31.0) L Mean Corpuscular Hemoglobin Concent 29.3 G/DL (32.0-36.0) L Red Cell Distribution Width 14.9 % (11.6-14.8) H Platelet Count 114 K/UL (150-450) L Mean Platelet Volume 9.2 FL (6.5-10.1) Neutrophils (%) (Auto) 62.6 % (45.0-75.0) Lymphocytes (%) (Auto) 19.6 % (20.0-45.0) L Monocytes (%) (Auto) 10.1 % (1.0-10.0) H Eosinophils (%) (Auto) 6.9 % (0.0-3.0) H Basophils (%) (Auto) 0.8 % (0.0-2.0) Prothrombin Time 13.0 SEC (9.30-11.50) H Prothromb Time International Ratio 1.2 (0.9-1.1) H Activated Partial Thromboplast Time 48 SEC (23-33) H Sodium Level 136 MMOL/L (136-145) Potassium Level 3.1 MMOL/L (3.5-5.1) L Chloride Level 101 MMOL/L (98-107) Carbon Dioxide Level 31 MMOL/L (21-32) Anion Gap 4 mmol/L (5-15) L Blood Urea Nitrogen 21 mg/dL (7-18) H Creatinine 3.9 MG/DL (0.55-1.30) H Estimat Glomerular Filtration Rate 13.8 mL/min (>60) Glucose Level 397 MG/DL (74-106) #H Calcium Level 7.7 MG/DL (8.5-10.1) L Magnesium Level 1.7 MG/DL (1.8-2.4) L Total Bilirubin 0.4 MG/DL (0.2-1.0) Aspartate Amino Transf (AST/SGOT) 13 U/L (15-37) L Alanine Aminotransferase (ALT/SGPT) 7 U/L (12-78) L Alkaline Phosphatase 107 U/L (46-116) Total Protein 6.4 G/DL (6.4-8.2) Albumin 1.6 G/DL (3.4-5.0) L Globulin 4.8 g/dL Albumin/Globulin Ratio 0.3 (1.0-2.7) L Microbiology Date/Time Source Procedure Growth Status 06/30/18 18:55 Blood Blood Culture - Final NO GROWTH AFTER 5 DAYS Complete 06/30/18 12:20 Body Fluid Gram Stain - Final Complete 06/30/18 12:20 Body Fluid Body Fluid Culture - Final NO GROWTH Complete 06/14/18 10:50 Other Gram Stain - Final Complete 06/14/18 10:50 Wound Culture - Final Pseudomonas Aeruginosa Morganella Morg Spp Morganii Streptococcus Group B Complete 07/04/18 01:00 Sputum Induced Gram Stain - Final Resulted 07/04/18 01:00 Sputum Culture - Preliminary Gram Negative Bacillus 1 Resulted 06/14/18 10:50 Stool Clostridium difficile Toxin Assay - Final Complete 06/13/18 03:00 Rectum VRE Culture - Final Enterococcus Faecium - Vre Complete Exam Narrative Focused: LLE Wound Vac D/C, wound evaluated. Wound base noted to SubQ. Granular base noted. Tanya-wound margins are hyper-pigmented. No active purulence noted. No acute SOI. Dermatological Dermatological: wound JaneekristynShen wanglinda HIGHTOWER Jul 06, 2018 14:11
[2018-07-06] MEDS: Meropenem 500 MG in NS 55 ML IVPB SCH (14:29)
[2018-07-06] MEDS ORDERED: Tubing IV Secondary IV ONE (14:51)
--- NOTE | 2018-07-06 15:11 | NUR ---
RADIOLOGY DEPT CHEST X-RAY DONE.-P.DYE
[2018-07-06] MEDS: Acetaminophen 500mg (ES) tab ORAL PRN (15:36)
--- NOTE | 2018-07-06 15:45 | NUR ---
NURSE NOTES:WOUND CARE NOTES: in and assessed L heel wound.Orders received to resume NPWT at 100mm/Hg to continuous suction. L heel wound resolving .Wound bed granular at base with hyperpigmented borders which are adherent to base of wound .Wound bed is moist, no odor or exudate noted.Wound cleansed with Saline .Skin Barrier wipes applied to margins and periwound .Periwound then draped with transparent drsg and bridged to dorsal aspect of L foot.Granulofoam packing applied in wound then bridged over transparent drsg to dorsal aspect of L foot .Covered with transparent drsg .NPWT resumed to continuous suction at 100mm/Hg.Abd pad applied to heel and between NPWT tubing and skin over dorsal aspect of L foot to prevent pressure to skin and wrapped with Kerlix drsg . gave orders to maintain NPWT until Tuesday07/10/18 when Md will back to assess wound. Nurse on unit aware of orders.
--- NOTE | 2018-07-06 16:36 | NUR ---
NURSE NOTES: Tech setting up to do thoracentesis. Will continue to monitor.
--- NOTE | 2018-07-06 17:48 | NUR ---
NURSE NOTES: Dr Condon here to do thoracentesis at bedside. Will continue to monitor.
--- NOTE | 2018-07-06 18:29 | NUR ---
NURSE NOTES: Thoracentesis done, 4 liters out. Will continue to monitor.
[2018-07-06] MEDS: DOPamine 400mg/250ml 250 ML IV SCH (18:45)
--- NOTE | 2018-07-06 19:25 | NUR ---
HAND-OFF: Report given to Mike NATION.
--- NOTE | 2018-07-06 19:30 | NUR ---
NURSE NOTES: Report received from CHAPIS Jay. Patient Sinus rhythm on monitoring analyst in 70s. Patient is awake and content, Oriented x2-3. Patient is on Venturi mask 30%/8L, SpO2 saturation at 100%. swallow evaluation done, see dietary note. Right BKA and Left heel wound open to air , s/p wound vac, Right AV shunt for HD access. Left UA TLC PICC patent and asymptomatic. D10 1/2NS is running at 30cc/hr. Bed in lowest position. Side rails up x3. Patient BP is 118/64, temperature is 98.8F and RR is 17, will continue to monitor.
[2018-07-06] MEDS: Dyna-Hex 2% Top Sol 2oz TOPIC SCH (19:40)
[2018-07-06] MEDS: LORazepam Inj 2mg/ml 1ml IV PRN (19:41)
--- NOTE | 2018-07-06 21:00 | NUR ---
NURSE NOTES: Pt's resting in bed, noted anxious, Ativan PRN given. Will continue to monitor.
--- NOTE | 2018-07-06 21:07 | Cardiology Progress Note ---
Assessment/Plan Assessment/Plan off pressors and off Dobutamine, BP still holding, probably can be transferred Subjective Subjective the patient is less lethargic, more agitated, complaints on dyspnea Objective Last 24 Hour Vital Signs Date Time Temp Pulse Resp B/P (MAP) Pulse Ox O2 Delivery O2 Flow Rate FiO2 07/06/18 19:21 100 Venturi Mask 8.0 30 07/06/18 19:21 Venturi Mask 8.0 30 07/06/18 19:00 69 17 118/64 (82) 100 07/06/18 18:45 100/62 07/06/18 18:00 70 16 83/48 (60) 100 07/06/18 17:00 72 17 100/62 (75) 100 07/06/18 16:00 98.2 62 15 100/58 (72) 100 07/06/18 16:00 Venturi Mask 8.0 Venturi Mask 8.0 07/06/18 16:00 64 07/06/18 15:00 68 16 101/61 (74) 100 07/06/18 14:00 66 15 106/66 (79) 99 07/06/18 13:00 74 17 109/49 (69) 100 07/06/18 12:00 78 07/06/18 12:00 98.2 67 16 114/55 (74) 100 07/06/18 12:00 Venturi Mask 8.0 Venturi Mask 8.0 07/06/18 11:00 63 15 115/61 (79) 100 07/06/18 10:00 62 13 117/62 (80) 100 07/06/18 09:15 Venturi Mask 8.0 30 07/06/18 09:15 99 Venturi Mask 8.0 30 07/06/18 09:15 80 18 07/06/18 09:00 60 15 112/66 (81) 100 07/06/18 08:00 98.0 19 110/78 (89) 100 07/06/18 08:00 Venturi Mask 8.0 Venturi Mask 8.0 07/06/18 08:00 80 07/06/18 07:00 61 17 105/56 (72) 100 07/06/18 06:00 62 17 115/67 (83) 100 07/06/18 05:00 59 13 102/56 (71) 100 07/06/18 04:00 98.2 55 15 120/75 (90) 100 07/06/18 04:00 59 07/06/18 04:00 Venturi Mask 8.0 Venturi Mask 8.0 07/06/18 03:00 60 13 105/80 (88) 100 07/06/18 02:00 62 16 111/60 (77) 100 07/06/18 01:00 64 14 110/55 (73) 100 07/06/18 00:00 8.0 30 07/06/18 00:00 98.7 67 13 111/59 (76) 100 07/06/18 00:00 Venturi Mask 8.0 Venturi Mask 8.0 07/06/18 00:00 65 07/05/18 23:00 72 17 124/63 (83) 100 07/05/18 22:00 64 14 109/52 (71) 100 General Appearance: mild distress, lethargic EENT: other Neck: JVD Rhythm: NSR Cardiovascular: normal rate, systolic murmur Respiratory/Chest: crackles/rales Abdomen: distended Intake and Output 07/05/18 07/06/18 19:00 07:00 Intake Total 410 ml 330 ml Output Total 2500 ml 0 ml Balance -2090 ml 330 ml IV Total 410 ml 330 ml Output Urine Total 0 ml 0 ml Hemodialysis UF 2500 ml # Bowel Movements 1 1 Laboratory Tests Test 07/06/18 04:00 07/06/18 09:15 07/06/18 11:20 Random Vancomycin Level 16.8 ug/mL Arterial Blood pH 7.316 (7.350-7.450) Arterial Blood Partial Pressure CO2 62.5 mmHg (35.0-45.0) *H Arterial Blood Partial Pressure O2 55.7 mmHg (75.0-100.0) L Arterial Blood HCO3 31.2 mmol/L (22.0-26.0) H Arterial Blood Oxygen Saturation 85.8 % (95-100) *L Arterial Blood Base Excess 4.0 (-2-2) H Nicola Test Positive White Blood Count 5.4 K/UL (4.8-10.8) Red Blood Count 3.22 M/UL (4.20-5.40) L Hemoglobin 8.3 G/DL (12.0-16.0) L Hematocrit 28.3 % (37.0-47.0) L Mean Corpuscular Volume 88 FL (80-99) Mean Corpuscular Hemoglobin 25.8 PG (27.0-31.0) L Mean Corpuscular Hemoglobin Concent 29.3 G/DL (32.0-36.0) L Red Cell Distribution Width 14.9 % (11.6-14.8) H Platelet Count 114 K/UL (150-450) L Mean Platelet Volume 9.2 FL (6.5-10.1) Neutrophils (%) (Auto) 62.6 % (45.0-75.0) Lymphocytes (%) (Auto) 19.6 % (20.0-45.0) L Monocytes (%) (Auto) 10.1 % (1.0-10.0) H Eosinophils (%) (Auto) 6.9 % (0.0-3.0) H Basophils (%) (Auto) 0.8 % (0.0-2.0) Prothrombin Time 13.0 SEC (9.30-11.50) H Prothromb Time International Ratio 1.2 (0.9-1.1) H Activated Partial Thromboplast Time 48 SEC (23-33) H Sodium Level 136 MMOL/L (136-145) Potassium Level 3.1 MMOL/L (3.5-5.1) L Chloride Level 101 MMOL/L (98-107) Carbon Dioxide Level 31 MMOL/L (21-32) Anion Gap 4 mmol/L (5-15) L Blood Urea Nitrogen 21 mg/dL (7-18) H Creatinine 3.9 MG/DL (0.55-1.30) H Estimat Glomerular Filtration Rate 13.8 mL/min (>60) Glucose Level 397 MG/DL (74-106) #H Calcium Level 7.7 MG/DL (8.5-10.1) L Magnesium Level 1.7 MG/DL (1.8-2.4) L Total Bilirubin 0.4 MG/DL (0.2-1.0) Aspartate Amino Transf (AST/SGOT) 13 U/L (15-37) L Alanine Aminotransferase (ALT/SGPT) 7 U/L (12-78) L Alkaline Phosphatase 107 U/L (46-116) Total Protein 6.4 G/DL (6.4-8.2) Albumin 1.6 G/DL (3.4-5.0) L Globulin 4.8 g/dL Albumin/Globulin Ratio 0.3 (1.0-2.7) L Microbiology Date/Time Source Procedure Growth Status 07/04/18 01:00 Sputum Induced Gram Stain - Final Resulted 07/04/18 01:00 Sputum Culture - Preliminary Gram Negative Bacillus 1 Resulted Clarisse Daley MD Jul 06, 2018 21:07
--- NOTE | 2018-07-06 23:00 | NUR ---
NURSE NOTES: Pt's resting in bed, in no distress. VS stable. Will continue to monitor.
[2018-07-07] VITALS (24 sets, daily range): BP systolic 80–137; BP diastolic 48–98
--- NOTE | 2018-07-07 01:00 | NUR ---
NURSE NOTES: Pt's resting in bed, in no distress. VS stable. Will continue to monitor
[2018-07-07] MEDS: LORazepam Inj 2mg/ml 1ml IV PRN ×3 (02:33→22:12)
--- NOTE | 2018-07-07 03:00 | NUR ---
NURSE NOTES: Pt's resting in bed, eyes closed, VS stable. Will continue to monitor.
--- NOTE | 2018-07-07 05:00 | NUR ---
NURSE NOTES: Pt's resting in bed, eyes closed, in no distress. VS stable. Will continue to monitor.
[2018-07-07 05:25] LABS: EOSINOPHILS % (AUTO) 5.6 % (0.0-3.0); HEMATOCRIT 28.8 % (37.0-47.0); HEMOGLOBIN 8.6 G/DL (12.0-16.0); LYMPHOCYTES % (AUTO) 19.5 % (20.0-45.0); MEAN CORPUSCULAR VOLUME 88 FL (80-99); MONOCYTES % (AUTO) 13.2 % (1.0-10.0); NEUTROPHILS % (AUTO) 60.6 % (45.0-75.0); PLATELET COUNT 124 K/UL (150-450); RED BLOOD COUNT 3.26 M/UL (4.20-5.40); RED CELL DISTRIBUTION WIDTH 15.4 % (11.6-14.8); WHITE BLOOD COUNT 4.7 K/UL (4.8-10.8)
[2018-07-07 06:05] LABS: ALANINE AMINOTRANSFERASE < 6 U/L (12-78); ALBUMIN 1.6 G/DL (3.4-5.0); ALBUMIN/GLOBULIN RATIO 0.3 (1.0-2.7); ALKALINE PHOSPHATASE 109 U/L (46-116); ANION GAP 6 mmol/L (5-15); ASPARTATE AMINO TRANSFERASE < 5 U/L (15-37); BILIRUBIN,TOTAL 0.3 MG/DL (0.2-1.0); BLOOD UREA NITROGEN 28 mg/dL (7-18); CALCIUM 8.3 MG/DL (8.5-10.1); CARBON DIOXIDE 28 MMOL/L (21-32); CHLORIDE 101 MMOL/L (98-107); CREATININE 4.3 MG/DL (0.55-1.30); PHOSPHORUS 4.4 MG/DL (2.5-4.9); POTASSIUM 3.3 MMOL/L (3.5-5.1); SODIUM 135 MMOL/L (136-145)
[2018-07-07] MEDS: NovoLOG Insulin Flexpen SUBQ SCH ×4 (06:10→21:00)
--- NOTE | 2018-07-07 07:10 | NUR ---
HAND-OFF: Report given to CHAPIS Fuller. Addendum: 07/07/18 at 0752 by VIKRAM DESOUZA RN RN report given to CHAPIS Villegas
--- NOTE | 2018-07-07 08:15 | NUR ---
NURSE NOTES: Report received from CHAPIS Mckeon. Pt asleep when received, no s/s acute distress. Preparing for dui Addendum: 07/07/18 at 1259 by Nelly Mane RN Awaiting for dialysis.Off pressors at this time.Wound vac in place with no drainage at this time and tx nurse made aware. Picc line MARCELO running D10 1/2 NS at 30cc/hr with no apparent infiltration at this time.Rectal tube in place and anuric.Turned and repositioned. Kept clean and drBess Call light within easy reach.Will continue to monitor
[2018-07-07] MEDS: Dextrose 10%/.45 SOD CHL 1,000 ML IV SCH (09:00)
--- NOTE | 2018-07-07 09:19 | Nephrology Progress Note ---
Assessment/Plan Plan MOF Intubated. B Pleural effusion Anasarca decreasing. HD MWF. Hypoglycemia raises the suspicion of smoldering sepsis. Avoid misreading BP by misplacing cuff. Subjective Subjective Off pressors. Extubated! No events overnight. Objective Objective Last 24 Hour Vital Signs Date Time Temp Pulse Resp B/P (MAP) Pulse Ox O2 Delivery O2 Flow Rate FiO2 07/07/18 08:21 98 Venturi Mask 4.0 31 07/07/18 08:21 Venturi Mask 4.0 31 07/07/18 07:00 64 16 97/61 (73) 100 07/07/18 06:00 64 16 97/55 (69) 100 07/07/18 05:00 64 16 100/60 (73) 100 07/07/18 04:00 Venturi Mask 8.0 Venturi Mask 8.0 07/07/18 04:00 67 16 96/61 (73) 100 07/07/18 04:00 60 07/07/18 03:00 64 16 95/55 (68) 100 07/07/18 02:00 64 16 106/66 (79) 100 07/07/18 01:00 62 16 100/58 (72) 100 07/07/18 00:00 Venturi Mask 8.0 Venturi Mask 8.0 07/07/18 00:00 60 07/07/18 00:00 69 16 88/57 (67) 100 07/06/18 23:00 69 15 107/65 (79) 100 07/06/18 22:00 69 18 111/63 (79) 100 07/06/18 21:00 69 16 97/52 (67) 100 07/06/18 20:00 Venturi Mask 8.0 Venturi Mask 8.0 07/06/18 20:00 98.8 64 15 118/61 (80) 100 07/06/18 20:00 67 07/06/18 20:00 8.0 30 07/06/18 19:21 100 Venturi Mask 8.0 30 07/06/18 19:21 Venturi Mask 8.0 30 07/06/18 19:00 69 17 118/64 (82) 100 07/06/18 18:45 100/62 07/06/18 18:00 70 16 83/48 (60) 100 12/13/18 17:00 72 17 100/62 (75) 100 07/06/18 16:00 98.2 62 15 100/58 (72) 100 07/06/18 16:00 Venturi Mask 8.0 Venturi Mask 8.0 07/06/18 16:00 64 07/06/18 15:00 68 16 101/61 (74) 100 07/06/18 14:00 66 15 106/66 (79) 99 07/06/18 13:00 74 17 109/49 (69) 100 07/06/18 12:00 78 07/06/18 12:00 98.2 67 16 114/55 (74) 100 07/06/18 12:00 Venturi Mask 8.0 Venturi Mask 8.0 07/06/18 11:00 63 15 115/61 (79) 100 07/06/18 10:00 62 13 117/62 (80) 100 Intake and Output 07/06/18 07/07/18 18:59 06:59 Intake Total 390 ml 360 ml Output Total 0 ml 0 ml Balance 390 ml 360 ml IV Total 390 ml 360 ml Output Urine Total 0 ml 0 ml # Bowel Movements 1 Laboratory Tests 07/06/18 11:20: White Blood Count 5.4, Red Blood Count 3.22L, Hemoglobin 8.3L, Hematocrit 28.3L , Mean Corpuscular Volume 88, Mean Corpuscular Hemoglobin 25.8L, Mean Corpuscular Hemoglobin Concent 29.3L, Red Cell Distribution Width 14.9H, Platelet Count 114L, Mean Platelet Volume 9.2, Neutrophils (%) (Auto) 62.6, Lymphocytes (%) (Auto) 19.6L, Monocytes (%) (Auto) 10.1H, Eosinophils (%) (Auto ) 6.9H, Basophils (%) (Auto) 0.8, Prothrombin Time 13.0H, Prothromb Time International Ratio 1.2H, Activated Partial Thromboplast Time 48H, Sodium Level 136, Potassium Level 3.1L, Chloride Level 101, Carbon Dioxide Level 31, Anion Gap 4L, Blood Urea Nitrogen 21H, Creatinine 3.9H, Estimat Glomerular Filtration Rate 13.8, Glucose Level 397#H, Calcium Level 7.7L, Magnesium Level 1.7L, Total Bilirubin 0.4, Aspartate Amino Transf (AST/SGOT) 13L, Alanine Aminotransferase ( ALT/SGPT) 7L, Alkaline Phosphatase 107, Total Protein 6.4, Albumin 1.6L, Globulin 4.8, Albumin/Globulin Ratio 0.3L 07/07/18 03:55: White Blood Count 4.7L, Red Blood Count 3.26L, Hemoglobin 8.6L, Hematocrit 28.8L , Mean Corpuscular Volume 88, Mean Corpuscular Hemoglobin 26.5L, Mean Corpuscular Hemoglobin Concent 30.1L, Red Cell Distribution Width 15.4H, Platelet Count 124L, Mean Platelet Volume 8.7, Neutrophils (%) (Auto) 60.6, Lymphocytes (%) (Auto) 19.5L, Monocytes (%) (Auto) 13.2H, Eosinophils (%) (Auto ) 5.6H, Basophils (%) (Auto) 1.0, Sodium Level 135L, Potassium Level 3.3L, Chloride Level 101, Carbon Dioxide Level 28, Anion Gap 6, Blood Urea Nitrogen 28H, Creatinine 4.3H, Estimat Glomerular Filtration Rate 12.4, Glucose Level 101 #, Calcium Level 8.3L, Total Bilirubin 0.3, Aspartate Amino Transf (AST/SGOT) < 5L, Alanine Aminotransferase (ALT/SGPT) < 6L, Alkaline Phosphatase 109, Total Protein 6.3L, Albumin 1.6L, Globulin 4.7, Albumin/Globulin Ratio 0.3L, Phosphorus Level 4.4 Height (Feet): 5 Height (Inches): 6.00 Weight (Pounds): 240 Objective Blind Cv RR Lungs more air movement L Lung. Abd SNT. BS + E Rt AKA stump clean. Lt. heel ulcer. Alert. Asking for food. Brenda Fuller MD Jul 07, 2018 09:19
--- NOTE | 2018-07-07 10:11 | NUR ---
NURSE NOTES: Ongoing dialysis and tolerated well.Seen by Dr De Leon will follow up with new orders. Kept on close monitoring
[2018-07-07] MEDS: Aspirin Baby 81mg ORAL SCH (10:13)
[2018-07-07] MEDS: Heparin 5000 units/ml inj SUBQ SCH ×2 (10:15→21:11)
[2018-07-07] MEDS ORDERED: NS 275ml ONE (10:31)
--- NOTE | 2018-07-07 11:05 | NUR ---
CASE MANAGEMENT: REVIEW SI: ESRD ON HD . BILATERAL PLEURAL EFFUSION . ENCEPHALOPATHY . BRONCHOSCOPY 07/01 T 98.8 HR 66 RR 16 BP 88/57 SAT 98% VENTURI MASK 8.0 WBC 4.7 H/H 8.6/28.8 NA 135 K 3.3 BUN 28 CR 4.3 IS: PROCRIT SQ MWF D10 1/2 NS IVF @30ML/HR MEROPENEM IV Q24HR ASA PO QD PROTONIX PO QD DOPAMINE IV Q24HR HEMODIALYSIS PRN ICU STATUS DCP: PATIENT IS FROM [facility]
--- NOTE | 2018-07-07 11:17 | Infectious Diseases Prog Note ---
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 renal failure 3. diabetes mellitus 4. hypertension 5. rectal VRE colonization 6. shock 7. pneumonia with stenotrophomonas 8. mucous plugging s/p bronchoscopy P 1. continue vancomycin iv, meropenem 2. start levoquin 3. will follow up cultures Subjective Constitutional: Denies: fever, chills Respiratory: Denies: shortness of breath, dry cough Gastrointestinal/Abdominal: Denies: nausea, vomiting, diarrhea Musculoskeletal: Reports: pain Allergies: Coded Allergies: BENAZEPRIL (Verified Allergy, Unknown, 06/12/18) CODEINE (Verified Allergy, Unknown, 06/12/18) INSULIN ASPART (Verified Allergy, Unknown, 06/12/18) INSULIN DETEMIR (Verified Allergy, Unknown, 06/12/18) OPIOIDS - MORPHINE ANALOGUES (Verified Allergy, Unknown, 06/12/18) Objective Vital Signs Last 24 Hour Vital Signs Date Time Temp Pulse Resp B/P (MAP) Pulse Ox O2 Delivery O2 Flow Rate FiO2 07/07/18 11:00 65 16 137/49 (78) 99 07/07/18 10:00 69 16 111/71 (84) 99 07/07/18 09:00 66 16 117/64 (81) 100 07/07/18 08:21 98 Venturi Mask 4.0 31 07/07/18 08:21 Venturi Mask 4.0 31 07/07/18 08:00 63 07/07/18 08:00 98.8 66 16 97/61 (73) 100 07/07/18 08:00 Venturi Mask 8.0 Venturi Mask 8.0 07/07/18 07:00 64 16 97/61 (73) 100 07/07/18 06:00 64 16 97/55 (69) 100 07/07/18 05:00 64 16 100/60 (73) 100 07/07/18 04:00 Venturi Mask 8.0 Venturi Mask 8.0 07/07/18 04:00 67 16 96/61 (73) 100 07/07/18 04:00 60 07/07/18 03:00 64 16 95/55 (68) 100 07/07/18 02:00 64 16 106/66 (79) 100 07/07/18 01:00 62 16 100/58 (72) 100 07/07/18 00:00 Venturi Mask 8.0 Venturi Mask 8.0 07/07/18 00:00 60 07/07/18 00:00 69 16 88/57 (67) 100 07/06/18 23:00 69 15 107/65 (79) 100 07/06/18 22:00 69 18 111/63 (79) 100 07/06/18 21:00 69 16 97/52 (67) 100 07/06/18 20:00 Venturi Mask 8.0 Venturi Mask 8.0 07/06/18 20:00 98.8 64 15 118/61 (80) 100 07/06/18 20:00 67 07/06/18 20:00 8.0 30 07/06/18 19:21 100 Venturi Mask 8.0 30 07/06/18 19:21 Venturi Mask 8.0 30 07/06/18 19:00 69 17 118/64 (82) 100 07/06/18 18:45 100/62 07/06/18 18:00 70 16 83/48 (60) 100 07/06/18 17:00 72 17 100/62 (75) 100 07/06/18 16:00 98.2 62 15 100/58 (72) 100 07/06/18 16:00 Venturi Mask 8.0 Venturi Mask 8.0 07/06/18 16:00 64 07/06/18 15:00 68 16 101/61 (74) 100 07/06/18 14:00 66 15 106/66 (79) 99 07/06/18 13:00 74 17 109/49 (69) 100 07/06/18 12:00 78 07/06/18 12:00 98.2 67 16 114/55 (74) 100 07/06/18 12:00 Venturi Mask 8.0 Venturi Mask 8.0 Height (Feet): 5 Height (Inches): 6.00 Weight (Pounds): 240 Respiratory/Chest: lungs clear Cardiovascular: normal rate, regular rhythm, no gallop/murmur Abdomen: soft, non tender Extremities: no edema, other - left foot VAC, left arm PICC Laboratory Tests Test 07/06/18 11:20 07/07/18 03:55 White Blood Count 5.4 K/UL (4.8-10.8) 4.7 K/UL (4.8-10.8) L Red Blood Count 3.22 M/UL (4.20-5.40) L 3.26 M/UL (4.20-5.40) L Hemoglobin 8.3 G/DL (12.0-16.0) L 8.6 G/DL (12.0-16.0) L Hematocrit 28.3 % (37.0-47.0) L 28.8 % (37.0-47.0) L Mean Corpuscular Volume 88 FL (80-99) 88 FL (80-99) Mean Corpuscular Hemoglobin 25.8 PG (27.0-31.0) L 26.5 PG (27.0-31.0) L Mean Corpuscular Hemoglobin Concent 29.3 G/DL (32.0-36.0) L 30.1 G/DL (32.0-36.0) L Red Cell Distribution Width 14.9 % (11.6-14.8) H 15.4 % (11.6-14.8) H Platelet Count 114 K/UL (150-450) L 124 K/UL (150-450) L Mean Platelet Volume 9.2 FL (6.5-10.1) 8.7 FL (6.5-10.1) Neutrophils (%) (Auto) 62.6 % (45.0-75.0) 60.6 % (45.0-75.0) Lymphocytes (%) (Auto) 19.6 % (20.0-45.0) L 19.5 % (20.0-45.0) L Monocytes (%) (Auto) 10.1 % (1.0-10.0) H 13.2 % (1.0-10.0) H Eosinophils (%) (Auto) 6.9 % (0.0-3.0) H 5.6 % (0.0-3.0) H Basophils (%) (Auto) 0.8 % (0.0-2.0) 1.0 % (0.0-2.0) Prothrombin Time 13.0 SEC (9.30-11.50) H Prothromb Time International Ratio 1.2 (0.9-1.1) H Activated Partial Thromboplast Time 48 SEC (23-33) H Sodium Level 136 MMOL/L (136-145) 135 MMOL/L (136-145) L Potassium Level 3.1 MMOL/L (3.5-5.1) L 3.3 MMOL/L (3.5-5.1) L Chloride Level 101 MMOL/L (98-107) 101 MMOL/L (98-107) Carbon Dioxide Level 31 MMOL/L (21-32) 28 MMOL/L (21-32) Anion Gap 4 mmol/L (5-15) L 6 mmol/L (5-15) Blood Urea Nitrogen 21 mg/dL (7-18) H 28 mg/dL (7-18) H Creatinine 3.9 MG/DL (0.55-1.30) H 4.3 MG/DL (0.55-1.30) H Estimat Glomerular Filtration Rate 13.8 mL/min (>60) 12.4 mL/min (>60) Glucose Level 397 MG/DL (74-106) #H 101 MG/DL (74-106) # Calcium Level 7.7 MG/DL (8.5-10.1) L 8.3 MG/DL (8.5-10.1) L Magnesium Level 1.7 MG/DL (1.8-2.4) L Total Bilirubin 0.4 MG/DL (0.2-1.0) 0.3 MG/DL (0.2-1.0) Aspartate Amino Transf (AST/SGOT) 13 U/L (15-37) L < 5 U/L (15-37) L Alanine Aminotransferase (ALT/SGPT) 7 U/L (12-78) L < 6 U/L (12-78) L Alkaline Phosphatase 107 U/L (46-116) 109 U/L (46-116) Total Protein 6.4 G/DL (6.4-8.2) 6.3 G/DL (6.4-8.2) L Albumin 1.6 G/DL (3.4-5.0) L 1.6 G/DL (3.4-5.0) L Globulin 4.8 g/dL 4.7 g/dL Albumin/Globulin Ratio 0.3 (1.0-2.7) L 0.3 (1.0-2.7) L Phosphorus Level 4.4 MG/DL (2.5-4.9) Current Medications Medications (Trade) Dose Ordered Sig/Andre Route PRN Reason Start Time Stop Time Status Last Admin Dose Admin Acetaminophen (Tylenol) 500 mg Q6H PRN ORAL Mild Pain/Temp > 100.5 06/28/18 20:00 07/28/18 19:59 07/06/18 15:36 Aspirin (ASA) 81 mg DAILY ORAL 06/29/18 09:00 07/13/18 08:59 07/07/18 10:13 Chlorhexidine Gluconate (Fabiola-Hex 2%) 1 applic DAILY@1999 TOPIC 06/28/18 20:00 07/18/18 19:59 07/06/18 19:40 Collagenase (Santyl) 1 applic DAILY TOPIC 06/29/18 09:00 07/13/18 08:59 07/07/18 09:00 Dextrose (Dextrose 50%) 25 ml Q30M PRN IV Hypoglycemia 06/28/18 18:45 07/17/18 20:14 07/04/18 20:52 Dextrose (Dextrose 50%) 50 ml Q30M PRN IV Hypoglycemia 06/28/18 18:45 07/17/18 20:14 07/06/18 02:22 Dextrose/Sodium Chloride 1,000 ml @ 30 mls/hr Q24H IV 06/30/18 09:00 07/30/18 08:59 07/07/18 09:00 Dopamine HCl/ Dextrose 250 ml @ 0 mls/hr Q24H IV 06/28/18 18:45 07/28/18 18:44 07/01/18 11:41 Epoetin Marcus (Procrit (for ESRD on dialysis)) 7,000 units TUE-TUE-TUE SUBQ 07/07/18 21:00 08/06/18 20:59 Heparin Sodium (Porcine) (Heparin 5000 units/ml) 5,000 units EVERY 12 HOURS SUBQ 06/28/18 21:00 07/13/18 08:59 07/07/18 10:15 Heparin Sodium (Porcine) (Heparin Sod 1000 units/ml 10ml) 2,000 unit ONCE PRN IV DIALYSIS 07/06/18 08:25 07/07/18 23:59 Insulin Aspart (NovoLOG) BEFORE MEALS AND HS SUBQ 06/28/18 21:00 07/17/18 20:59 07/06/18 21:13 Lorazepam (Ativan 2mg/ml 1ml) 1 mg Q3H PRN IV For Anxiety 07/01/18 11:59 07/08/18 11:58 07/07/18 02:33 Meropenem 500 mg/ Sodium Chloride 55 ml @ 110 mls/hr Q24H IVPB 06/29/18 14:00 07/25/18 13:59 07/06/18 14:29 Pantoprazole (Protonix) 40 mg ACBREAKFAST ORAL 06/29/18 06:30 07/27/18 06:29 07/07/18 06:10 Sodium Chloride 1,000 ml @ 500 mls/hr Q2H PRN IVLG sbp<90 during hd 07/06/18 08:24 07/07/18 23:59 Vancomycin HCl (Vanco rx to dose) 1 ea DAILY PRN MISC Per rx protocol 06/29/18 08:15 07/29/18 08:14 Naya Cain MD Jul 07, 2018 11:17"
--- NOTE | 2018-07-07 11:54 | NUR ---
RD ASSESSMENT & RECOMMENDATIONS SEE CARE ACTIVITY FOR COMPLETE ASSESSMENT DAILY ESTIMATED NEEDS: Needs based on ESRD on HD, Wounds, (Adj Wt 62kg) 24-30 kcals/kg 6912-5272 total kcals 1.25-2 g protein/kg 76-124 g total protein Fluid per MD, on HD NUTRITION DIAGNOSIS: 1) Increased kcal, pro needs R/T wound healing and renal dysfunction as evidenced by pt w/ open left heel now w/ wound vac, sacral and lt ischial wounds, w/ ESRD on HD. 2) Swallowing difficulty R/T respiratory status as evidenced by s/p code blue, now s/p extubation, seen by MICA LAYER w/ rec for mech soft ground texture, thin liquid diet. CURRENT DIET:CCHO MED, RENAL/ mech soft ground PO DIET RECOMMENDATIONS: RENAL, CCHO MED/ texture per MICA LAYER ADDITIONAL RECOMMENDATIONS: 1) Wound healing: Continue Dimitry 1pkt BID, add Nephrovite x 1 2) Obtain dry wt post HD on a calibrated bed scale 3) Monitor lytes, replete as needed (low mag + K) 4) Consider DC D10- hyponatremia, oral diet initiated, h/o DM . .
--- NOTE | 2018-07-07 12:11 | General Progress Note ---
Assessment/Plan Problem List: (1) Encephalopathy acute ICD Codes: G93.40 - Encephalopathy, unspecified SNOMED: 98034388, [id number] Status: unchanged Assessment/Plan the pt lacks capacity to refuse medications the pt lacks capacity to leave ama haldol prn soft restraints as needed Subjective Date patient seen: Jul 07, 2018 Neurologic/Psychiatric: Reports: anxiety Allergies: Coded Allergies: BENAZEPRIL (Verified Allergy, Unknown, 06/12/18) CODEINE (Verified Allergy, Unknown, 06/12/18) INSULIN ASPART (Verified Allergy, Unknown, 06/12/18) INSULIN DETEMIR (Verified Allergy, Unknown, 06/12/18) OPIOIDS - MORPHINE ANALOGUES (Verified Allergy, Unknown, 06/12/18) Subjective the pt is somewhat lethargic the pt has episodes of agitation Objective Last 24 Hour Vital Signs Date Time Temp Pulse Resp B/P (MAP) Pulse Ox O2 Delivery O2 Flow Rate FiO2 07/07/18 11:00 65 16 137/49 (78) 99 07/07/18 10:00 69 16 111/71 (84) 99 07/07/18 09:00 66 16 117/64 (81) 100 07/07/18 08:21 98 Venturi Mask 4.0 31 07/07/18 08:21 Venturi Mask 4.0 31 07/07/18 08:00 63 07/07/18 08:00 98.8 66 16 97/61 (73) 100 07/07/18 08:00 Venturi Mask 8.0 Venturi Mask 8.0 07/07/18 07:00 64 16 97/61 (73) 100 07/07/18 06:00 64 16 97/55 (69) 100 07/07/18 05:00 64 16 100/60 (73) 100 07/07/18 04:00 Venturi Mask 8.0 Venturi Mask 8.0 07/07/18 04:00 67 16 96/61 (73) 100 07/07/18 04:00 60 07/07/18 03:00 64 16 95/55 (68) 100 07/07/18 02:00 64 16 106/66 (79) 100 07/07/18 01:00 62 16 100/58 (72) 100 07/07/18 00:00 Venturi Mask 8.0 Venturi Mask 8.0 07/07/18 00:00 60 07/07/18 00:00 69 16 88/57 (67) 100 07/06/18 23:00 69 15 107/65 (79) 100 07/06/18 22:00 69 18 111/63 (79) 100 07/06/18 21:00 69 16 97/52 (67) 100 07/06/18 20:00 Venturi Mask 8.0 Venturi Mask 8.0 07/06/18 20:00 98.8 64 15 118/61 (80) 100 07/06/18 20:00 67 07/06/18 20:00 8.0 30 07/06/18 19:21 100 Venturi Mask 8.0 30 07/06/18 19:21 Venturi Mask 8.0 30 07/06/18 19:00 69 17 118/64 (82) 100 07/06/18 18:45 100/62 07/06/18 18:00 70 16 83/48 (60) 100 07/06/18 17:00 72 17 100/62 (75) 100 07/06/18 16:00 98.2 62 15 100/58 (72) 100 07/06/18 16:00 Venturi Mask 8.0 Venturi Mask 8.0 07/06/18 16:00 64 07/06/18 15:00 68 16 101/61 (74) 100 07/06/18 14:00 66 15 106/66 (79) 99 07/06/18 13:00 74 17 109/49 (69) 100 Intake and Output 07/06/18 07/07/18 19:00 07:00 Intake Total 390 ml 360 ml Output Total 0 ml 0 ml Balance 390 ml 360 ml IV Total 390 ml 360 ml Output Urine Total 0 ml 0 ml # Bowel Movements 1 Laboratory Tests 07/07/18 03:55: White Blood Count 4.7L, Red Blood Count 3.26L, Hemoglobin 8.6L, Hematocrit 28.8L , Mean Corpuscular Volume 88, Mean Corpuscular Hemoglobin 26.5L, Mean Corpuscular Hemoglobin Concent 30.1L, Red Cell Distribution Width 15.4H, Platelet Count 124L, Mean Platelet Volume 8.7, Neutrophils (%) (Auto) 60.6, Lymphocytes (%) (Auto) 19.5L, Monocytes (%) (Auto) 13.2H, Eosinophils (%) (Auto ) 5.6H, Basophils (%) (Auto) 1.0, Sodium Level 135L, Potassium Level 3.3L, Chloride Level 101, Carbon Dioxide Level 28, Anion Gap 6, Blood Urea Nitrogen 28H, Creatinine 4.3H, Estimat Glomerular Filtration Rate 12.4, Glucose Level 101 #, Calcium Level 8.3L, Phosphorus Level 4.4, Total Bilirubin 0.3, Aspartate Amino Transf (AST/SGOT) < 5L, Alanine Aminotransferase (ALT/SGPT) < 6L, Alkaline Phosphatase 109, Total Protein 6.3L, Albumin 1.6L, Globulin 4.7, Albumin/Globulin Ratio 0.3L Height (Feet): 5 Height (Inches): 6.00 Weight (Pounds): 240 General Appearance: confused, agitated MIPS Medication Reconciliation Is this a Psycho/Diag encounte: Abelardo Jenkins MD Jul 07, 2018 12:11
--- NOTE | 2018-07-07 12:30 | NUR ---
NURSE NOTES: Patient turned and repositioned.Dialysis done and 3 L out. AV shunt R arm with new dressing intact and clean. HOB elevated to prevent aspiration. Keep on close monitoring.
[2018-07-07] MEDS: Acetaminophen 500mg (ES) tab ORAL PRN (12:43)
[2018-07-07] MEDS: Meropenem 500 MG in NS 55 ML IVPB SCH (13:23)
--- NOTE | 2018-07-07 13:48 | Diagnostic Imaging Report ---
Indication: Status post thoracentesis Comparison: 07/06/2018 at 08:35 A single view chest radiograph was obtained. Findings: Left pleural effusion has significantly improved. There is residual pleural fluid at the left lung base portion which appears convex and probably loculated. There is a right pleural effusion also noted. Pulmonary edema is present. Heart is enlarged. IMPRESSION: No pneumothorax following left-sided thoracentesis. Significant the residual left basilar effusion may be partially loculated.
--- NOTE | 2018-07-07 14:00 | NUR ---
NURSE NOTES: Pt turned and repositioned. Mouth care done.Kept clean and dry. Rectal tube still in place with no leakage. Call light within easy reach.Kept clean and dry.
--- NOTE | 2018-07-07 14:32 | NUR ---
NOTES: swallow status: md signed order for mod barium swallow study patient sleep, consulted with rn regarding intake. pt will cough if eats solids too fast. patient asked pt to give her more food but there was food already in her mouth. goals met for educated/trained ghanshyam rn in posted aspiration precautions. goals not met for intake and added to order nepro per citlaly recommendations. plan: videoswallow study next week if able (still in icu now) continue with plan of care in swallow eval report Addendum: 07/07/18 at 1448 by ALONA VANEGAS EXECUTIVE CREATIVE DIRECTOR PER ROSIBEL TYSON, HOLD OFF ON NEPRO FOR NOW SINCE TOO MUCH FLUID IS NOT RECOMMENDED FOR PATIENT
--- NOTE | 2018-07-07 16:02 | NUR ---
NURSE NOTES: Patient turned and repositioned.Mouth care done, kept clean and dry.Adls complete, will continue to monitor
--- NOTE | 2018-07-07 17:33 | Cardiology Progress Note ---
Assessment/Plan Assessment/Plan her BP start slipping down again, cncerned that she is becoming hypotensive again. Will follow Subjective Subjective sleeping with O2 mask on, arousable, complaining on pain in left leg Objective Last 24 Hour Vital Signs Date Time Temp Pulse Resp B/P (MAP) Pulse Ox O2 Delivery O2 Flow Rate FiO2 07/07/18 17:00 62 20 98/48 (65) 97 07/07/18 16:00 72 07/07/18 16:00 97.2 69 16 80/61 (67) 97 07/07/18 16:00 Venturi Mask 8.0 Venturi Mask 8.0 07/07/18 15:00 70 20 103/72 (82) 100 07/07/18 14:00 64 14 104/58 (73) 100 07/07/18 13:13 97.6 07/07/18 13:00 80 14 121/71 (88) 100 07/07/18 12:00 98.4 73 16 114/64 (81) 100 07/07/18 12:00 72 07/07/18 12:00 Venturi Mask 8.0 Venturi Mask 8.0 07/07/18 11:00 65 16 137/49 (78) 99 07/07/18 10:00 69 16 111/71 (84) 99 07/07/18 09:00 66 16 117/64 (81) 100 07/07/18 08:21 98 Venturi Mask 4.0 31 07/07/18 08:21 Venturi Mask 4.0 31 07/07/18 08:00 63 07/07/18 08:00 98.8 66 16 97/61 (73) 100 07/07/18 08:00 Venturi Mask 8.0 Venturi Mask 8.0 07/07/18 07:00 64 16 97/61 (73) 100 07/07/18 06:00 64 16 97/55 (69) 100 07/07/18 05:00 64 16 100/60 (73) 100 07/07/18 04:00 Venturi Mask 8.0 Venturi Mask 8.0 07/07/18 04:00 67 16 96/61 (73) 100 07/07/18 04:00 60 07/07/18 03:00 64 16 95/55 (68) 100 07/07/18 02:00 64 16 106/66 (79) 100 07/07/18 01:00 62 16 100/58 (72) 100 07/07/18 00:00 Venturi Mask 8.0 Venturi Mask 8.0 07/07/18 00:00 60 07/07/18 00:00 69 16 88/57 (67) 100 07/06/18 23:00 69 15 107/65 (79) 100 07/06/18 22:00 69 18 111/63 (79) 100 07/06/18 21:00 69 16 97/52 (67) 100 07/06/18 20:00 Venturi Mask 8.0 Venturi Mask 8.0 07/06/18 20:00 98.8 64 15 118/61 (80) 100 07/06/18 20:00 67 07/06/18 20:00 8.0 30 07/06/18 19:21 100 Venturi Mask 8.0 30 07/06/18 19:21 Venturi Mask 8.0 30 07/06/18 19:00 69 17 118/64 (82) 100 07/06/18 18:45 100/62 07/06/18 18:00 70 16 83/48 (60) 100 General Appearance: lethargic EENT: other Neck: JVD Rhythm: NSR Cardiovascular: systolic murmur Respiratory/Chest: rhonchi - bilaterally Abdomen: distended Extremities: other Intake and Output 07/06/18 07/07/18 19:00 07:00 Intake Total 390 ml 360 ml Output Total 0 ml 0 ml Balance 390 ml 360 ml IV Total 390 ml 360 ml Output Urine Total 0 ml 0 ml # Bowel Movements 1 Laboratory Tests Test 07/07/18 03:55 White Blood Count 4.7 K/UL (4.8-10.8) L Red Blood Count 3.26 M/UL (4.20-5.40) L Hemoglobin 8.6 G/DL (12.0-16.0) L Hematocrit 28.8 % (37.0-47.0) L Mean Corpuscular Volume 88 FL (80-99) Mean Corpuscular Hemoglobin 26.5 PG (27.0-31.0) L Mean Corpuscular Hemoglobin Concent 30.1 G/DL (32.0-36.0) L Red Cell Distribution Width 15.4 % (11.6-14.8) H Platelet Count 124 K/UL (150-450) L Mean Platelet Volume 8.7 FL (6.5-10.1) Neutrophils (%) (Auto) 60.6 % (45.0-75.0) Lymphocytes (%) (Auto) 19.5 % (20.0-45.0) L Monocytes (%) (Auto) 13.2 % (1.0-10.0) H Eosinophils (%) (Auto) 5.6 % (0.0-3.0) H Basophils (%) (Auto) 1.0 % (0.0-2.0) Sodium Level 135 MMOL/L (136-145) L Potassium Level 3.3 MMOL/L (3.5-5.1) L Chloride Level 101 MMOL/L (98-107) Carbon Dioxide Level 28 MMOL/L (21-32) Anion Gap 6 mmol/L (5-15) Blood Urea Nitrogen 28 mg/dL (7-18) H Creatinine 4.3 MG/DL (0.55-1.30) H Estimat Glomerular Filtration Rate 12.4 mL/min (>60) Glucose Level 101 MG/DL (74-106) # Calcium Level 8.3 MG/DL (8.5-10.1) L Phosphorus Level 4.4 MG/DL (2.5-4.9) Total Bilirubin 0.3 MG/DL (0.2-1.0) Aspartate Amino Transf (AST/SGOT) < 5 U/L (15-37) L Alanine Aminotransferase (ALT/SGPT) < 6 U/L (12-78) L Alkaline Phosphatase 109 U/L (46-116) Total Protein 6.3 G/DL (6.4-8.2) L Albumin 1.6 G/DL (3.4-5.0) L Globulin 4.7 g/dL Albumin/Globulin Ratio 0.3 (1.0-2.7) L Clarisse Daley MD Jul 07, 2018 17:33
--- NOTE | 2018-07-07 18:05 | NUR ---
NURSE NOTES: ADLs done, turned and repositioned.Ate 100% at dinner.Kept clean and dry.Will continue to monitor
[2018-07-07] MEDS: DOPamine 400mg/250ml 250 ML IV SCH (18:45)
--- NOTE | 2018-07-07 19:30 | NUR ---
NURSE NOTES: Report received from CHAPIS Villegas. Patient Sinus rhythm on residential monitor in 70s. Patient is awake and content, Oriented x2-3. Patient on 3L/NC, SpO2 saturation at 100%. HD done today 3 liter was out. Right BKA and Left heel wound open to air , s/p wound vac, Right AV shunt for HD access. Left UA TLC PICC patent and asymptomatic. D10 1/2NS is running at 30cc/hr. Bed in lowest position. Side rails up x3. Patient BP is 111/72, temperature is 98.5F and RR is 20, will continue to monitor.
--- NOTE | 2018-07-07 19:36 | NUR ---
HAND-OFF: Report given to CHAPIS Mckeon.
[2018-07-07] MEDS ORDERED: Epogen (for ESRD on dialysis) SUBQ SCH (21:00)
--- NOTE | 2018-07-07 21:00 | NUR ---
NURSE NOTES: Pt's resting in bed, in no distress. VS stable. Will continue to monitor.
[2018-07-07] MEDS: Dyna-Hex 2% Top Sol 2oz TOPIC SCH (21:10)
--- NOTE | 2018-07-07 23:00 | NUR ---
NURSE NOTES: Pt's resting in bed, in no distress. VS stable. Will continue to monitor.
[2018-07-08] VITALS (12 sets, daily range): BP systolic 97–128; BP diastolic 45–97
--- NOTE | 2018-07-08 01:00 | NUR ---
NURSE NOTES: Pt's resting in bed, in no distress. VS stable. Will continue to monitor.
[2018-07-08] MEDS: Dextrose 10%/.45 SOD CHL 1,000 ML IV SCH ×2 (02:23→09:00)
--- NOTE | 2018-07-08 03:00 | NUR ---
NURSE NOTES: Pt's resting in bed, in no distress. VS stable. Will continue to monitor.
--- NOTE | 2018-07-08 05:00 | NUR ---
NURSE NOTES: Pt's resting in bed, in no distress. VS stable. Will continue to monitor.
[2018-07-08] MEDS: LORazepam Inj 2mg/ml 1ml IV PRN (05:50)
[2018-07-08] MEDS: NovoLOG Insulin Flexpen SUBQ SCH ×4 (06:30→21:00)
--- NOTE | 2018-07-08 07:23 | NUR ---
HAND-OFF: Report given to Sammie Carter RN.
--- NOTE | 2018-07-08 07:24 | NUR ---
NURSE NOTES: Report received CHAPIS Mckeon. Pt is sleeping in bed. Lethargic. Sinus rhythm on residential monitor. On N/C 3L. O2 sat 100%. No respiratory distress noted. Rectal tube in place draining to gravity. Left ankle wound vac dressing intact. Right AV fistula for HD noted. Left UA PICC line patent and asymptomatic. D101/2NS is running at 30cc/hr. Bed in lowest position. Side rails up x3. Will resume plan of care.
[2018-07-08] MEDS: Heparin 5000 units/ml inj SUBQ SCH ×2 (08:32→21:37)
[2018-07-08] MEDS: Aspirin Baby 81mg ORAL SCH (08:32)
[2018-07-08] MEDS ORDERED: LORazepam Inj 2mg/ml 1ml IV PRN (09:00)
--- NOTE | 2018-07-08 09:10 | NUR ---
TRANSFER TO FLOOR: Patient transferred to [facility], SDU. Will keep the same patient. Will inform family of transfer.
--- NOTE | 2018-07-08 12:31 | Nephrology Progress Note ---
Assessment/Plan Plan Improved. Out of ICU. B Pleural effusion Anasarca decreasing. HD MWF. Subjective Subjective In KRZYSZTOF. No events overnight. Objective Objective Last 24 Hour Vital Signs Date Time Temp Pulse Resp B/P (MAP) Pulse Ox O2 Delivery O2 Flow Rate FiO2 07/08/18 12:00 Venturi Mask 8.0 Nasal Cannula 3.0 07/08/18 12:00 97.0 71 22 97/53 (68) 95 07/08/18 10:08 66 07/08/18 08:00 Venturi Mask 8.0 Nasal Cannula 3.0 07/08/18 08:00 97.2 68 20 128/65 (86) 100 07/08/18 07:00 69 18 113/66 (82) 100 07/08/18 06:00 98.7 70 18 125/68 (87) 100 07/08/18 05:00 69 18 122/97 (105) 100 07/08/18 04:00 67 18 117/73 (88) 100 07/08/18 04:00 Venturi Mask 8.0 Nasal Cannula 3.0 07/08/18 04:00 69 07/08/18 03:00 64 18 108/68 (81) 100 07/08/18 02:00 67 18 116/82 (93) 100 07/08/18 01:00 65 18 116/68 (84) 100 07/08/18 00:00 Venturi Mask 8.0 Nasal Cannula 3.0 07/08/18 00:00 66 07/08/18 00:00 98.8 62 18 112/68 (83) 100 07/07/18 23:00 66 18 115/65 (82) 100 07/07/18 22:00 67 18 119/76 (90) 100 07/07/18 21:00 70 18 110/62 (78) 100 07/07/18 20:00 3.0 07/07/18 20:00 65 07/07/18 20:00 67 18 113/66 (82) 100 07/07/18 20:00 Venturi Mask 8.0 Nasal Cannula 3.0 07/07/18 19:10 99 Nasal Cannula 3.0 32 07/07/18 19:10 Nasal Cannula 3.0 32 07/07/18 19:00 70 18 119/98 (105) 100 07/07/18 18:45 112/60 12/14/18 18:00 70 18 112/62 (79) 98 07/07/18 17:00 62 20 98/48 (65) 97 07/07/18 16:00 72 07/07/18 16:00 97.2 69 16 80/61 (67) 97 07/07/18 16:00 Venturi Mask 8.0 Venturi Mask 8.0 07/07/18 15:00 70 20 103/72 (82) 100 07/07/18 14:00 64 14 104/58 (73) 100 07/07/18 13:13 97.6 07/07/18 13:00 80 14 121/71 (88) 100 Intake and Output 07/07/18 07/08/18 18:59 06:59 Intake Total 3621 ml 460 ml Output Total 200 ml 0 ml Balance 3421 ml 460 ml Intake Oral 236 ml 100 ml IV Total 385 ml 360 ml Hemodialysis 3000 ml Output Urine Total 0 ml 0 ml Stool Total 200 ml Laboratory Tests 07/08/18 03:25: Random Vancomycin Level 21.0 Height (Feet): 5 Height (Inches): 6.00 Weight (Pounds): 240 Objective Blind Cv RR Lungs more air movement L Lung. Abd SNT. BS + E Rt AKA stump clean. Lt. heel ulcer. Alert. Asking for food. Brenda Fuller MD Jul 08, 2018 12:31
--- NOTE | 2018-07-08 12:51 | Cardiology Progress Note ---
Assessment/Plan Assessment/Plan nstemi ? demand related Hypotension CHF, elevated troponin, history of endocarditis MR TR tele reviewed personally seem sinus dialysis per dr smith has malnutrition bp ok for nicol most part afebrile Subjective ROS Limited/Unobtainable: Yes Objective Last 24 Hour Vital Signs Date Time Temp Pulse Resp B/P (MAP) Pulse Ox O2 Delivery O2 Flow Rate FiO2 07/08/18 12:00 Venturi Mask 8.0 Nasal Cannula 3.0 07/08/18 12:00 97.0 71 22 97/53 (68) 95 07/08/18 10:08 66 07/08/18 08:00 Venturi Mask 8.0 Nasal Cannula 3.0 07/08/18 08:00 97.2 68 20 128/65 (86) 100 07/08/18 07:00 69 18 113/66 (82) 100 07/08/18 06:00 98.7 70 18 125/68 (87) 100 07/08/18 05:00 69 18 122/97 (105) 100 07/08/18 04:00 67 18 117/73 (88) 100 07/08/18 04:00 Venturi Mask 8.0 Nasal Cannula 3.0 07/08/18 04:00 69 07/08/18 03:00 64 18 108/68 (81) 100 07/08/18 02:00 67 18 116/82 (93) 100 07/08/18 01:00 65 18 116/68 (84) 100 07/08/18 00:00 Venturi Mask 8.0 Nasal Cannula 3.0 07/08/18 00:00 66 07/08/18 00:00 98.8 62 18 112/68 (83) 100 07/07/18 23:00 66 18 115/65 (82) 100 07/07/18 22:00 67 18 119/76 (90) 100 07/07/18 21:00 70 18 110/62 (78) 100 07/07/18 20:00 3.0 07/07/18 20:00 65 07/07/18 20:00 67 18 113/66 (82) 100 07/07/18 20:00 Venturi Mask 8.0 Nasal Cannula 3.0 07/07/18 19:10 99 Nasal Cannula 3.0 32 07/07/18 19:10 Nasal Cannula 3.0 32 07/07/18 19:00 70 18 119/98 (105) 100 07/07/18 18:45 112/60 07/07/18 18:00 70 18 112/62 (79) 98 07/07/18 17:00 62 20 98/48 (65) 97 07/07/18 16:00 72 07/07/18 16:00 97.2 69 16 80/61 (67) 97 07/07/18 16:00 Venturi Mask 8.0 Venturi Mask 8.0 07/07/18 15:00 70 20 103/72 (82) 100 07/07/18 14:00 64 14 104/58 (73) 100 07/07/18 13:13 97.6 07/07/18 13:00 80 14 121/71 (88) 100 General Appearance: no apparent distress, patient on isolation Neck: supple Cardiovascular: normal rate Respiratory/Chest: lungs clear - ant Abdomen: normal bowel sounds, non tender, soft Extremities: moderate edema Intake and Output 07/07/18 07/08/18 18:59 06:59 Intake Total 3621 ml 460 ml Output Total 200 ml 0 ml Balance 3421 ml 460 ml Intake Oral 236 ml 100 ml IV Total 385 ml 360 ml Hemodialysis 3000 ml Output Urine Total 0 ml 0 ml Stool Total 200 ml Laboratory Tests Test 07/08/18 03:25 Random Vancomycin Level 21.0 ug/mL Binh Nguyen MD Jul 08, 2018 12:51
--- NOTE | 2018-07-08 13:00 | NUR ---
NURSE NOTES: PM care given. Wound pictures taken and uploaded. Pt is awake and looking for food. 1:1 feeding done. 100% lunch taken. Attended all needs. Son at bedside. Turned and repositioned pt. Will continue to monitor.
[2018-07-08] MEDS: Meropenem 500 MG in NS 55 ML IVPB SCH (15:01)
--- NOTE | 2018-07-08 15:44 | Pulmonology Progress Note ---
Assessment/Plan Assessment/Plan Pulmonary Progress Note Assessment/Plan IMPRESSION: 1. Previous respiratory failure, acute, recent NSTEMI 2. Evidence of hypercapnia. 3. Evidence of metabolic acidosis. 4. Evidence of pleural effusion. s/p tap 5. End-stage renal disease. 6. Elevated troponin. 7. Possible demand ischemia. 8. Severe protein-calorie malnutrition. 9. Hyponatremia. 10. Hyperkalemia. 11. Anemia. 12. Thrombocytopenia. 13. Mild coagulopathy. 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 15. mucous plugging s/p bronch PLAN off vent and stable monitor acid base CPT clear secretions respiratory care monitor fluid results ? need for repeat Tap; will follow up CXR today close follow up in ICU for now and may transition to KRZYSZTOF monitor for imaging and change as needed medications/laboratory data/nursing notes/ICU care reviewed in detail note reviewed and edited care discussed with RN and RT Interval Events: stable no distress minimal congestion care reviewed in detail ROS Limited/Unobtainable: Yes Condition: improving EKG Rhythm: Sinus Rhythm CXR: bilateral pleural effusions Vital Signs Noted Laboratory Tests Test 07/05/18 13:30 07/06/18 04:00 Arterial Blood pH 7.435 (7.350-7.450) Arterial Blood Partial Pressure CO2 49.1 mmHg (35.0-45.0) H Arterial Blood Partial Pressure O2 73.2 mmHg (75.0-100.0) L Arterial Blood HCO3 32.2 mmol/L (22.0-26.0) H Arterial Blood Oxygen Saturation 94.3 % (95-100) L Arterial Blood Base Excess 7.1 (-2-2) H Nicola Test Positive Random Vancomycin Level 16.8 ug/mL Objective: GENERAL: A well-developed female chronically ill. currently off the vent; alert HEENT: Overall negative. NECK: Supple. No jugular venous distention. LUNGS: Reduced breath sounds. no rhonchi or wheeze; stable CARDIAC: Normal S1 and S2. Regular rate and rhythm. without MRG ABDOMEN: Soft, nontender, and nondistended. no HSM; OGT out EXTREMITIES: No cyanosis or clubbing. The patient has a right above knee stump, left heel with ulcers. NEUROLOGIC: more alert; weak reviewed and edited Micro: Microbiology Date/Time Source Procedure Growth Status 07/04/18 01:00 Sputum Induced Gram Stain - Final Resulted 07/04/18 01:00 Sputum Culture - Preliminary Gram Negative Bacillus 1 Resulted Subjective ROS Limited/Unobtainable: No Allergies: Coded Allergies: BENAZEPRIL (Verified Allergy, Unknown, 06/12/18) CODEINE (Verified Allergy, Unknown, 06/12/18) INSULIN ASPART (Verified Allergy, Unknown, 06/12/18) INSULIN DETEMIR (Verified Allergy, Unknown, 06/12/18) OPIOIDS - MORPHINE ANALOGUES (Verified Allergy, Unknown, 06/12/18) Objective Last 24 Hour Vital Signs Date Time Temp Pulse Resp B/P (MAP) Pulse Ox O2 Delivery O2 Flow Rate FiO2 07/08/18 12:00 Venturi Mask 8.0 Nasal Cannula 3.0 07/08/18 12:00 97.0 71 22 97/53 (68) 95 07/08/18 11:54 67 07/08/18 10:08 66 07/08/18 08:00 Venturi Mask 8.0 Nasal Cannula 3.0 07/08/18 08:00 97.2 68 20 128/65 (86) 100 07/08/18 07:00 69 18 113/66 (82) 100 07/08/18 06:00 98.7 70 18 125/68 (87) 100 07/08/18 05:00 69 18 122/97 (105) 100 07/08/18 04:00 67 18 117/73 (88) 100 07/08/18 04:00 Venturi Mask 8.0 Nasal Cannula 3.0 07/08/18 04:00 69 07/08/18 03:00 64 18 108/68 (81) 100 07/08/18 02:00 67 18 116/82 (93) 100 07/08/18 01:00 65 18 116/68 (84) 100 07/08/18 00:00 Venturi Mask 8.0 Nasal Cannula 3.0 07/08/18 00:00 66 07/08/18 00:00 98.8 62 18 112/68 (83) 100 07/07/18 23:00 66 18 115/65 (82) 100 07/07/18 22:00 67 18 119/76 (90) 100 07/07/18 21:00 70 18 110/62 (78) 100 07/07/18 20:00 3.0 07/07/18 20:00 65 07/07/18 20:00 67 18 113/66 (82) 100 07/07/18 20:00 Venturi Mask 8.0 Nasal Cannula 3.0 07/07/18 19:10 99 Nasal Cannula 3.0 32 07/07/18 19:10 Nasal Cannula 3.0 32 07/07/18 19:00 70 18 119/98 (105) 100 07/07/18 18:45 112/60 07/07/18 18:00 70 18 112/62 (79) 98 07/07/18 17:00 62 20 98/48 (65) 97 07/07/18 16:00 72 07/07/18 16:00 97.2 69 16 80/61 (67) 97 07/07/18 16:00 Venturi Mask 8.0 Venturi Mask 8.0 Intake and Output 07/07/18 07/08/18 19:00 07:00 Intake Total 3621 ml 460 ml Output Total 200 ml 150 ml Balance 3421 ml 310 ml Intake Oral 236 ml 100 ml IV Total 385 ml 360 ml Hemodialysis 3000 ml Output Urine Total 0 ml 0 ml Stool Total 200 ml 150 ml Laboratory Tests 07/08/18 03:25: Random Vancomycin Level 21.0 Current Medications Medications (Trade) Dose Ordered Sig/Andre Route PRN Reason Start Time Stop Time Status Last Admin Dose Admin Acetaminophen (Tylenol) 500 mg Q6H PRN ORAL Mild Pain/Temp > 100.5 07/08/18 11:00 07/28/18 10:59 Aspirin (ASA) 81 mg DAILY ORAL 07/09/18 09:00 08/08/18 08:59 Chlorhexidine Gluconate (Fabiola-Hex 2%) 1 applic DAILY@2000 TOPIC 07/08/18 20:00 07/18/18 19:59 Collagenase (Santyl) 1 applic DAILY TOPIC 07/09/18 09:00 08/08/18 08:59 Dextrose (Dextrose 50%) 25 ml Q30M PRN IV Hypoglycemia 07/08/18 09:15 07/17/18 20:14 Dextrose (Dextrose 50%) 50 ml Q30M PRN IV Hypoglycemia 07/08/18 09:15 07/17/18 20:14 Dextrose/Sodium Chloride 1,000 ml @ 30 mls/hr Q24H IV 07/08/18 09:00 1/6/19 08:59 07/08/18 09:00 Epoetin Marcus (Procrit (for ESRD on dialysis)) 7,000 units MON-WED-TUE SUBQ 07/10/18 21:00 08/06/18 20:59 Heparin Sodium (Porcine) (Heparin 5000 units/ml) 5,000 units EVERY 12 HOURS SUBQ 07/08/18 21:00 07/13/18 20:59 Insulin Aspart (NovoLOG) BEFORE MEALS AND HS SUBQ 07/08/18 11:30 07/17/18 20:59 Levofloxacin (Levaquin) 250 mg Q48H ORAL 07/09/18 12:00 07/14/18 11:59 Meropenem 500 mg/ Sodium Chloride 55 ml @ 110 mls/hr Q24H IVPB 07/08/18 14:00 07/25/18 13:59 07/08/18 15:01 Pantoprazole (Protonix) 40 mg ACBREAKFAST ORAL 07/09/18 06:30 07/27/18 06:29 Vancomycin HCl (Vanco rx to dose) 1 ea DAILY PRN MISC Per rx protocol 07/08/18 09:00 07/29/18 08:14 Joaquin Mackenzie MD Jul 08, 2018 15:44
[2018-07-08] MEDS ORDERED: DOPamine 400mg/250ml 250 ML IV SCH (18:45)
--- NOTE | 2018-07-08 19:30 | NUR ---
NURSE NOTES: Report received RN. Pt is sleeping in bed, talkative, denies pain at this time. Sinus rhythm on secured entrance monitor. On N/C 3L. O2 sat 100%. No respiratory distress noted. Rectal tube in place draining well. Left ankle wound vac dressing intact. Right AV fistula for HD noted. Left UA PICC line, intact and patent. Bed in lowest position. Side rails up x3. Will continue to monitor.
--- NOTE | 2018-07-08 19:36 | NUR ---
HAND-OFF: Report given to CHAPIS Cameron.
[2018-07-08] MEDS: Dyna-Hex 2% Top Sol 2oz TOPIC SCH (20:37)
[2018-07-08] MEDS: Acetaminophen 500mg (ES) tab ORAL PRN (20:38)
[2018-07-09] VITALS: BP 120/50
--- NOTE | 2018-07-09 | NUR ---
NURSE NOTES: observed pt sleeping on the bed. no acute distress noted. V/S within normal range. Will continue to monitor.
[2018-07-09 04:00] VITALS: BP 117/65
[2018-07-09] MEDS: NovoLOG Insulin Flexpen SUBQ SCH ×4 (06:30→21:00)
--- NOTE | 2018-07-09 07:30 | NUR ---
HAND-OFF: Report given to CHAPIS [place]. pt sleeping on the bed. no acute distress noted.
--- NOTE | 2018-07-09 07:35 | NUR ---
NURSE NOTES: Report received from Jerson NATION.pt resting quietly in bed asleep noted no resp distress on 3l NC,no signs of pain or discomfort,SR on the monitor,pt anuric, on HD ,AV shunt to RADHA intact,and to MARCELO is a Midline with IVF D10 1/2 NS running at 30 ml/hr,iv site intact,skin warm and dry SR up x2 HOB elevated bed lock in lowest position,will continue with plan of care.
[2018-07-09 08:00] VITALS: BP 118/51
[2018-07-09] MEDS: Aspirin Baby 81mg ORAL SCH (09:40)
[2018-07-09] MEDS: Dextrose 10%/.45 SOD CHL 1,000 ML IV SCH (09:41)
[2018-07-09] MEDS: Heparin 5000 units/ml inj SUBQ SCH ×2 (09:49→21:21)
--- NOTE | 2018-07-09 10:00 | Infectious Diseases Prog Note ---
Assessment/Plan Assessment/Plan A; Calcaneal osteomyelitis DM ESRD on HD AMS PVD Diabetic retinopathy Mitral & Tricuspid regurgitation Elevated troponin Hypotension resolved Pleural effusion s/p thoracentesis P; continue Meropenem, Levaquin & Vancomycin Subjective ROS Limited/Unobtainable: No Constitutional: Reports: no symptoms Respiratory: Reports: dry cough Cardiovascular: Reports: no symptoms Gastrointestinal/Abdominal: Reports: no symptoms Genitourinary: Reports: no symptoms Allergies: Coded Allergies: BENAZEPRIL (Verified Allergy, Unknown, 06/12/18) CODEINE (Verified Allergy, Unknown, 06/12/18) INSULIN ASPART (Verified Allergy, Unknown, 06/12/18) INSULIN DETEMIR (Verified Allergy, Unknown, 06/12/18) OPIOIDS - MORPHINE ANALOGUES (Verified Allergy, Unknown, 06/12/18) Objective Vital Signs Last 24 Hour Vital Signs Date Time Temp Pulse Resp B/P (MAP) Pulse Ox O2 Delivery O2 Flow Rate FiO2 07/09/18 04:00 Venturi Mask 8.0 Nasal Cannula 3.0 07/09/18 04:00 62 07/09/18 04:00 97.5 90 20 117/65 (82) 100 07/09/18 00:00 97.7 72 20 120/50 (73) 98 07/09/18 00:00 Venturi Mask 8.0 Nasal Cannula 3.0 07/09/18 00:00 67 07/08/18 20:00 Venturi Mask 8.0 Nasal Cannula 3.0 07/08/18 20:00 83 07/08/18 20:00 98.4 68 18 115/55 (75) 95 07/08/18 16:00 Venturi Mask 8.0 Nasal Cannula 3.0 07/08/18 16:00 97.5 79 18 120/45 (70) 96 07/08/18 15:36 78 07/08/18 12:00 Venturi Mask 8.0 Nasal Cannula 3.0 07/08/18 12:00 97.0 71 22 97/53 (68) 95 07/08/18 11:54 67 07/08/18 10:08 66 Height (Feet): 5 Height (Inches): 6.00 Weight (Pounds): 241 General Appearance: no acute distress HEENT: other - R corneal opacitu Respiratory/Chest: lungs clear Cardiovascular: normal rate Abdomen: soft, non tender Extremities: no edema Skin: ulcers Neurologic/Psychiatric: alert, responsive Current Medications Medications (Trade) Dose Ordered Sig/Andre Route PRN Reason Start Time Stop Time Status Last Admin Dose Admin Acetaminophen (Tylenol) 500 mg Q6H PRN ORAL Mild Pain/Temp > 100.5 07/08/18 11:00 07/28/18 10:59 07/08/18 20:38 Aspirin (ASA) 81 mg DAILY ORAL 07/09/18 09:00 08/08/18 08:59 07/09/18 09:40 Chlorhexidine Gluconate (Fabiola-Hex 2%) 1 applic DAILY@1999 TOPIC 07/08/18 20:00 07/18/18 19:59 07/08/18 20:37 Collagenase (Santyl) 1 applic DAILY TOPIC 07/09/18 09:00 08/08/18 08:59 07/09/18 09:44 Dextrose (Dextrose 50%) 25 ml Q30M PRN IV Hypoglycemia 07/08/18 09:15 07/17/18 20:14 Dextrose (Dextrose 50%) 50 ml Q30M PRN IV Hypoglycemia 07/08/18 09:15 07/17/18 20:14 Dextrose/Sodium Chloride 1,000 ml @ 30 mls/hr Q24H IV 07/08/18 09:00 07/30/18 08:59 07/09/18 09:41 Epoetin Marcus (Procrit (for ESRD on dialysis)) 7,000 units MON-WED-FRI SUBQ 07/10/18 21:00 08/06/18 20:59 Heparin Sodium (Porcine) (Heparin 5000 units/ml) 5,000 units EVERY 12 HOURS SUBQ 07/08/18 21:00 07/13/18 20:59 07/09/18 09:49 Insulin Aspart (NovoLOG) BEFORE MEALS AND HS SUBQ 07/08/18 11:30 07/17/18 20:59 Levofloxacin (Levaquin) 250 mg Q48H ORAL 07/09/18 12:00 07/14/18 11:59 Meropenem 500 mg/ Sodium Chloride 55 ml @ 110 mls/hr Q24H IVPB 07/08/18 14:00 07/25/18 13:59 07/08/18 15:01 Pantoprazole (Protonix) 40 mg ACBREAKFAST ORAL 07/09/18 06:30 07/27/18 06:29 07/09/18 07:03 Vancomycin HCl (Vanco rx to dose) 1 ea DAILY PRN MISC Per rx protocol 07/08/18 09:00 07/29/18 08:14 Joe Melgar MD Jul 09, 2018 10:00
[2018-07-09 12:00] VITALS: BP 100/54
--- NOTE | 2018-07-09 12:57 | Nephrology Progress Note ---
Assessment/Plan Plan Improved. Out of ICU. B Pleural effusion Anasarca decreasing. Emerging from sepsis of unknown source! HD MWF. Subjective Subjective In KRZYSZTOF. No events overnight. No PO intake!!! Objective Objective Last 24 Hour Vital Signs Date Time Temp Pulse Resp B/P (MAP) Pulse Ox O2 Delivery O2 Flow Rate FiO2 07/09/18 12:00 Nasal Cannula 3.0 Nasal Cannula 3.0 07/09/18 08:01 Nasal Cannula 3.0 Nasal Cannula 3.0 07/09/18 08:00 96.9 63 20 118/51 (73) 99 07/09/18 08:00 64 07/09/18 04:00 Venturi Mask 8.0 Nasal Cannula 3.0 07/09/18 04:00 62 07/09/18 04:00 97.5 90 20 117/65 (82) 100 07/09/18 00:00 97.7 72 20 120/50 (73) 98 07/09/18 00:00 Venturi Mask 8.0 Nasal Cannula 3.0 07/09/18 00:00 67 07/08/18 20:00 Venturi Mask 8.0 Nasal Cannula 3.0 07/08/18 20:00 83 07/08/18 20:00 98.4 68 18 115/55 (75) 95 07/08/18 16:00 Venturi Mask 8.0 Nasal Cannula 3.0 07/08/18 16:00 97.5 79 18 120/45 (70) 96 07/08/18 15:36 78 Intake and Output 07/08/18 07/09/18 18:59 06:59 Intake Total 385 ml 760 ml Output Total 250 ml 0 ml Balance 135 ml 760 ml Intake Oral 400 ml IV Total 385 ml 360 ml Output Urine Total 0 ml 0 ml Stool Total 250 ml # Bowel Movements 1 Height (Feet): 5 Height (Inches): 6.00 Weight (Pounds): 241 Objective Blind Cv RR Lungs more air movement L Lung. Abd SNT. BS + E Rt AKA stump clean. Lt. heel ulcer. Alert. Brenda Fuller MD Jul 09, 2018 12:57
--- NOTE | 2018-07-09 13:00 | NUR ---
NURSE NOTES: Pt stable no distress presented,turned and repositioned,kept dry and clean.
--- NOTE | 2018-07-09 13:55 | Cardiology Progress Note ---
Assessment/Plan Assessment/Plan nstemi ? demand related Hypotension CHF, elevated troponin, history of endocarditis MR TR tele reviewed personally seem sinus no sig pauses dialysis per dr smith bp ok for nicol most part afebrile she is much more awake to day is needing to be fed Subjective Cardiovascular: Denies: chest pain, irregular heart rate, lightheadedness Respiratory: Denies: shortness of breath Gastrointestinal/Abdominal: Denies: abdominal pain Genitourinary: Denies: burning Subjective muchj more awake and responsive Objective Last 24 Hour Vital Signs Date Time Temp Pulse Resp B/P (MAP) Pulse Ox O2 Delivery O2 Flow Rate FiO2 07/09/18 12:00 61 07/09/18 12:00 Nasal Cannula 3.0 Nasal Cannula 3.0 07/09/18 12:00 97.3 65 18 100/54 (69) 100 07/09/18 08:01 Nasal Cannula 3.0 Nasal Cannula 3.0 07/09/18 08:00 96.9 63 20 118/51 (73) 99 07/09/18 08:00 64 07/09/18 04:00 Venturi Mask 8.0 Nasal Cannula 3.0 07/09/18 04:00 62 07/09/18 04:00 97.5 90 20 117/65 (82) 100 07/09/18 00:00 97.7 72 20 120/50 (73) 98 07/09/18 00:00 Venturi Mask 8.0 Nasal Cannula 3.0 07/09/18 00:00 67 07/08/18 20:00 Venturi Mask 8.0 Nasal Cannula 3.0 07/08/18 20:00 83 07/08/18 20:00 98.4 68 18 115/55 (75) 95 07/08/18 16:00 Venturi Mask 8.0 Nasal Cannula 3.0 07/08/18 16:00 97.5 79 18 120/45 (70) 96 07/08/18 15:36 78 General Appearance: alert Neck: supple Cardiovascular: normal rate, regular rhythm Respiratory/Chest: lungs clear Abdomen: non tender, soft Extremities: trace edema Intake and Output 07/08/18 07/09/18 18:59 06:59 Intake Total 385 ml 760 ml Output Total 250 ml 0 ml Balance 135 ml 760 ml Intake Oral 400 ml IV Total 385 ml 360 ml Output Urine Total 0 ml 0 ml Stool Total 250 ml # Bowel Movements 1 Laboratory Tests Test 07/09/18 13:22 Magnesium Level Pending Thyroid Stimulating Hormone (TSH) Pending Binh Nguyen MD Jul 09, 2018 13:55
[2018-07-09] MEDS: Meropenem 500 MG in NS 55 ML IVPB SCH (14:31)
[2018-07-09] MEDS ORDERED: 1/2 NS 1000ml IV ONE (15:50)
[2018-07-09] MEDS ORDERED: Tubing IV Secondary IV ONE (15:50)
[2018-07-09] MEDS ORDERED: NS 275ml ONE ×2 (15:50→21:42)
[2018-07-09 16:00] VITALS: BP 122/74
--- NOTE | 2018-07-09 17:00 | NUR ---
NURSE NOTES: No change in pt's status,stable,ate with appetite,feed by [employer],will continue monitor pt.
--- NOTE | 2018-07-09 19:28 | NUR ---
HAND-OFF: Report given to Georgette Flores RN,pt stable during the shift..
--- NOTE | 2018-07-09 19:30 | NUR ---
NURSE NOTES: Received patient from HUSSEIN COATS RN. Awake, oriented x2 .Resting in bed in no acute distress noted.SR on monitor. vs stable. afebrile. Breathing via NC 3L with no SOB. o2 sat 97%. Denies any pain at this time.AV shunt on RADHA intact. Midline on MARCELO patent and asymptomatic, infusing D10 1/2NS at 30cc/hr.left heel with wound vac intact.call light in reach and bed in locked position, bed alarm on.safety measures continued.will resume plan of care.
[2018-07-09 20:00] VITALS: BP 120/70
[2018-07-09] MEDS: Dyna-Hex 2% Top Sol 2oz TOPIC SCH (21:20)
--- NOTE | 2018-07-09 21:22 | Pulmonology Progress Note ---
Assessment/Plan Assessment/Plan Pulmonary Progress Note Assessment/Plan IMPRESSION: 1. Previous respiratory failure, acute, recent NSTEMI 2. Evidence of hypercapnia. 3. Evidence of metabolic acidosis. 4. Evidence of pleural effusion. s/p tap 5. End-stage renal disease. 6. Elevated troponin. 7. Possible demand ischemia. 8. Severe protein-calorie malnutrition. 9. Hyponatremia. 10. Hyperkalemia. 11. Anemia. 12. Thrombocytopenia. 13. Mild coagulopathy. 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 15. mucous plugging s/p bronch PLAN off vent and stable monitor acid base CPT clear secretions respiratory care monitor fluid results ? need for repeat Tap; will follow up CXR today close follow up in ICU for now and may transition to [id number] monitor for imaging and change as needed medications/laboratory data/nursing notes/ICU care reviewed in detail note reviewed and edited care discussed with RN and RT Interval Events: stable no distress minimal congestion care reviewed in detail ROS Limited/Unobtainable: Yes Condition: improving EKG Rhythm: Sinus Rhythm CXR: bilateral pleural effusions Vital Signs Noted Laboratory Tests Test 07/05/18 13:30 07/06/18 04:00 Arterial Blood pH 7.435 (7.350-7.450) Arterial Blood Partial Pressure CO2 49.1 mmHg (35.0-45.0) H Arterial Blood Partial Pressure O2 73.2 mmHg (75.0-100.0) L Arterial Blood HCO3 32.2 mmol/L (22.0-26.0) H Arterial Blood Oxygen Saturation 94.3 % (95-100) L Arterial Blood Base Excess 7.1 (-2-2) H Nicola Test Positive Random Vancomycin Level 16.8 ug/mL Objective: GENERAL: A well-developed female chronically ill. currently off the vent; alert HEENT: Overall negative. NECK: Supple. No jugular venous distention. LUNGS: Reduced breath sounds. no rhonchi or wheeze; stable CARDIAC: Normal S1 and S2. Regular rate and rhythm. without MRG ABDOMEN: Soft, nontender, and nondistended. no HSM; OGT out EXTREMITIES: No cyanosis or clubbing. The patient has a right above knee stump, left heel with ulcers. NEUROLOGIC: more alert; weak reviewed and edited Micro: Microbiology Date/Time Source Procedure Growth Status 07/04/18 01:00 Sputum Induced Gram Stain - Final Resulted 07/04/18 01:00 Sputum Culture - Preliminary Gram Negative Bacillus 1 Resulted Subjective ROS Limited/Unobtainable: No Allergies: Coded Allergies: BENAZEPRIL (Verified Allergy, Unknown, 06/12/18) CODEINE (Verified Allergy, Unknown, 06/12/18) INSULIN ASPART (Verified Allergy, Unknown, 06/12/18) INSULIN DETEMIR (Verified Allergy, Unknown, 06/12/18) OPIOIDS - MORPHINE ANALOGUES (Verified Allergy, Unknown, 06/12/18) Objective Last 24 Hour Vital Signs Date Time Temp Pulse Resp B/P (MAP) Pulse Ox O2 Delivery O2 Flow Rate FiO2 07/09/18 16:00 Nasal Cannula 3.0 Nasal Cannula 3.0 07/09/18 16:00 97.0 67 18 122/74 (90) 98 07/09/18 16:00 69 07/09/18 12:00 61 07/09/18 12:00 Nasal Cannula 3.0 Nasal Cannula 3.0 07/09/18 12:00 97.3 65 18 100/54 (69) 100 07/09/18 08:01 Nasal Cannula 3.0 Nasal Cannula 3.0 07/09/18 08:00 96.9 63 20 118/51 (73) 99 07/09/18 08:00 64 07/09/18 04:00 Venturi Mask 8.0 Nasal Cannula 3.0 07/09/18 04:00 62 07/09/18 04:00 97.5 90 20 117/65 (82) 100 07/09/18 00:00 97.7 72 20 120/50 (73) 98 07/09/18 00:00 Venturi Mask 8.0 Nasal Cannula 3.0 07/09/18 00:00 67 Intake and Output 07/08/18 07/09/18 19:00 07:00 Intake Total 385 ml 760 ml Output Total 100 ml 0 ml Balance 285 ml 760 ml Intake Oral 400 ml IV Total 385 ml 360 ml Output Urine Total 0 ml 0 ml Stool Total 100 ml # Bowel Movements 1 Laboratory Tests 07/09/18 13:22: Magnesium Level 1.8, Thyroid Stimulating Hormone (TSH) 8.721H Current Medications Medications (Trade) Dose Ordered Sig/Andre Route PRN Reason Start Time Stop Time Status Last Admin Dose Admin Acetaminophen (Tylenol) 500 mg Q6H PRN ORAL Mild Pain/Temp > 100.5 07/08/18 11:00 07/28/18 10:59 07/08/18 20:38 Aspirin (ASA) 81 mg DAILY ORAL 07/09/18 09:00 08/08/18 08:59 07/09/18 09:40 Chlorhexidine Gluconate (Fabiola-Hex 2%) 1 applic DAILY@1999 TOPIC 07/08/18 20:00 07/18/18 19:59 07/08/18 20:37 Collagenase (Santyl) 1 applic DAILY TOPIC 07/09/18 09:00 08/08/18 08:59 07/09/18 09:44 Dextrose (Dextrose 50%) 25 ml Q30M PRN IV Hypoglycemia 07/08/18 09:15 07/17/18 20:14 Dextrose (Dextrose 50%) 50 ml Q30M PRN IV Hypoglycemia 07/08/18 09:15 07/17/18 20:14 Dextrose/Sodium Chloride 1,000 ml @ 30 mls/hr Q24H IV 07/08/18 09:00 07/30/18 08:59 07/09/18 09:41 Epoetin Marcus (Procrit (for ESRD on dialysis)) 7,000 units MON-WED-FRI SUBQ 07/10/18 21:00 08/06/18 20:59 Heparin Sodium (Porcine) (Heparin 5000 units/ml) 5,000 units EVERY 12 HOURS SUBQ 07/08/18 21:00 07/13/18 20:59 07/09/18 09:49 Insulin Aspart (NovoLOG) BEFORE MEALS AND HS SUBQ 07/08/18 11:30 07/17/18 20:59 Levofloxacin (Levaquin) 250 mg Q48H ORAL 07/09/18 12:00 07/14/18 11:59 07/09/18 11:57 Meropenem 500 mg/ Sodium Chloride 55 ml @ 110 mls/hr Q24H IVPB 07/08/18 14:00 07/25/18 13:59 07/09/18 14:31 Pantoprazole (Protonix) 40 mg ACBREAKFAST ORAL 07/09/18 06:30 07/27/18 06:29 07/09/18 07:03 Vancomycin HCl (Vanco rx to dose) 1 ea DAILY PRN MISC Per rx protocol 07/08/18 09:00 1/19 08:14 Joaquin Mackenzie MD Jul 09, 2018 21:22
[2018-07-09] MEDS: Acetaminophen 500mg (ES) tab ORAL PRN (21:23)
[2018-07-10] VITALS: BP 109/60
--- NOTE | 2018-07-10 02:36 | NUR ---
NURSE NOTES: Asleep in no acute distress noted. no sings of pain. vs stable. afebrile.on NC 3L with no SOB.Performed sponge bath due to has soft BM once.keep skin clean and dry.will continue to monitor.
[2018-07-10 04:00] VITALS: BP 119/63
[2018-07-10 04:36] LABS: BASOPHILS % (AUTO) 0.9 % (0.0-2.0); EOSINOPHILS % (AUTO) 3.8 % (0.0-3.0); HEMATOCRIT 28.8 % (37.0-47.0); HEMOGLOBIN 8.6 G/DL (12.0-16.0); LYMPHOCYTES % (AUTO) 22.3 % (20.0-45.0); MEAN CORPUSCULAR VOLUME 89 FL (80-99); MONOCYTES % (AUTO) 12.3 % (1.0-10.0); NEUTROPHILS % (AUTO) 60.7 % (45.0-75.0); PLATELET COUNT 136 K/UL (150-450); RED BLOOD COUNT 3.24 M/UL (4.20-5.40); RED CELL DISTRIBUTION WIDTH 14.7 % (11.6-14.8); WHITE BLOOD COUNT 3.9 K/UL (4.8-10.8)
[2018-07-10 04:59] LABS: ALANINE AMINOTRANSFERASE < 6 U/L (12-78); ALBUMIN 1.7 G/DL (3.4-5.0); ALBUMIN/GLOBULIN RATIO 0.3 (1.0-2.7); ALKALINE PHOSPHATASE 122 U/L (46-116); ANION GAP 6 mmol/L (5-15); ASPARTATE AMINO TRANSFERASE 11 U/L (15-37); BILIRUBIN,TOTAL 0.3 MG/DL (0.2-1.0); BLOOD UREA NITROGEN 32 mg/dL (7-18); CALCIUM 8.3 MG/DL (8.5-10.1); CARBON DIOXIDE 30 MMOL/L (21-32); CHLORIDE 99 MMOL/L (98-107); CREATININE 4.6 MG/DL (0.55-1.30); POTASSIUM 3.5 MMOL/L (3.5-5.1); SODIUM 135 MMOL/L (136-145)
[2018-07-10] MEDS: NovoLOG Insulin Flexpen SUBQ SCH ×4 (06:19→21:00)
--- NOTE | 2018-07-10 07:51 | NUR ---
HAND-OFF: Report given to KHRIS NATION. no s/s of acute distress noted.
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
[2018-07-10 08:00] VITALS: BP 107/59
--- NOTE | 2018-07-10 08:20 | Diagnostic Imaging Report ---
Indications: Pleural effusion Technique: Ultrasound used to localize optimal puncture site. Sterile prepping and draping chest. Local anesthesia with 1% lidocaine. Under real-time ultrasound guidance, puncture pleural space using thoracentesis needle. Stylet removed. Catheter placed to vacuum bottle suction. Total 1300 milliliters of grossly bloody fluid aspirated. Patient tolerated procedure well, without immediate complication. Findings: Followup sonography demonstrates complete resolution of pleural fluid. Impression: Successful ultrasound-guided thoracentesis, yielding 1300 milliliters of bloody fluid
--- NOTE | 2018-07-10 09:16 | Critical Care Progress Note ---
Assessment/Plan Assessment/Plan IMPRESSION: 1. Respiratory failure, acute. 2. Evidence of hypercapnia. 3. Evidence of metabolic acidosis. 4. Evidence of pleural effusion. s/p tap x2 5. End-stage renal disease. 6. Elevated troponin. 7. Possible demand ischemia. 8. Severe protein-calorie malnutrition. 9. Hyponatremia. 10. Hyperkalemia. 11. Anemia. 12. Thrombocytopenia. 13. Mild coagulopathy. 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 15. mucous plugging s/p bronch PLAN off vent and stable monitor acid base CPT clear secretions respiratory care monitor fluid results repeat ABG close follow up monitor for imaging and change as needed medications/laboratory data/nursing notes reviewed in detail note reviewed and edited care discussed with RN and RT Critical Care - Subjective Interval Events: comfortable off the delmer no distress underwent tap Condition: improving EKG Rhythm: Sinus Rhythm I&O: Intake and Output 07/09/18 07/10/18 19:00 07:00 Intake Total 1035 ml 560 ml Balance 1035 ml 560 ml Intake Oral 650 ml 200 ml IV Total 385 ml 360 ml # Voids 1 # Bowel Movements 2 2 Critical Care - Objective CXR: improved aeration post tap ET-Tube: 7.5 ET Position: 23 Last 24 Hour Vital Signs Date Time Temp Pulse Resp B/P (MAP) Pulse Ox O2 Delivery O2 Flow Rate FiO2 07/10/18 04:00 97.5 72 18 119/63 (81) 98 07/10/18 04:00 70 07/10/18 04:00 Nasal Cannula 3.0 Nasal Cannula 3.0 07/10/18 00:00 79 07/10/18 00:00 Nasal Cannula 3.0 Nasal Cannula 3.0 07/10/18 00:00 96.4 73 18 109/60 (76) 98 07/09/18 20:00 Nasal Cannula 3.0 32 07/09/18 20:00 Nasal Cannula 3.0 Nasal Cannula 3.0 07/09/18 20:00 70 07/09/18 20:00 97.0 75 18 120/70 (87) 99 07/09/18 20:00 98 Nasal Cannula 3.0 32 07/09/18 16:00 Nasal Cannula 3.0 Nasal Cannula 3.0 07/09/18 16:00 97.0 67 18 122/74 (90) 98 07/09/18 16:00 69 07/09/18 12:00 61 07/09/18 12:00 Nasal Cannula 3.0 Nasal Cannula 3.0 07/09/18 12:00 97.3 65 18 100/54 (69) 100 Labs: Labs Test 07/08/18 03:25 07/09/18 13:22 07/10/18 03:10 Random Vancomycin Level 21.0 ug/mL Magnesium Level 1.8 MG/DL (1.8-2.4) Thyroid Stimulating Hormone (TSH) 8.721 uiU/mL (0.358-3.740) White Blood Count 3.9 K/UL (4.8-10.8) Red Blood Count 3.24 M/UL (4.20-5.40) Hemoglobin 8.6 G/DL (12.0-16.0) Hematocrit 28.8 % (37.0-47.0) Mean Corpuscular Volume 89 FL (80-99) Mean Corpuscular Hemoglobin 26.4 PG (27.0-31.0) Mean Corpuscular Hemoglobin Concent 29.7 G/DL (32.0-36.0) Red Cell Distribution Width 14.7 % (11.6-14.8) Platelet Count 136 K/UL (150-450) Mean Platelet Volume 8.7 FL (6.5-10.1) Neutrophils (%) (Auto) 60.7 % (45.0-75.0) Lymphocytes (%) (Auto) 22.3 % (20.0-45.0) Monocytes (%) (Auto) 12.3 % (1.0-10.0) Eosinophils (%) (Auto) 3.8 % (0.0-3.0) Basophils (%) (Auto) 0.9 % (0.0-2.0) Sodium Level 135 MMOL/L (136-145) Potassium Level 3.5 MMOL/L (3.5-5.1) Chloride Level 99 MMOL/L (98-107) Carbon Dioxide Level 30 MMOL/L (21-32) Anion Gap 6 mmol/L (5-15) Blood Urea Nitrogen 32 mg/dL (7-18) Creatinine 4.6 MG/DL (0.55-1.30) Estimat Glomerular Filtration Rate 11.4 mL/min (>60) Glucose Level 101 MG/DL (74-106) Calcium Level 8.3 MG/DL (8.5-10.1) Total Bilirubin 0.3 MG/DL (0.2-1.0) Aspartate Amino Transf (AST/SGOT) 11 U/L (15-37) Alanine Aminotransferase (ALT/SGPT) < 6 U/L (12-78) Alkaline Phosphatase 122 U/L (46-116) Total Protein 6.8 G/DL (6.4-8.2) Albumin 1.7 G/DL (3.4-5.0) Globulin 5.1 g/dL Albumin/Globulin Ratio 0.3 (1.0-2.7) Objective: GENERAL: A well-developed female chronically ill. currently off the vent; remains stable and more alert HEENT: Overall negative. NECK: Supple. No jugular venous distention. LUNGS: Reduced breath sounds. no rhonchi or wheeze; stable; improved overall CARDIAC: Normal S1 and S2. Regular rate and rhythm. without MRG ABDOMEN: Soft, nontender, and nondistended. no HSM; OGT out EXTREMITIES: No cyanosis or clubbing. The patient has a right above knee stump, left heel with ulcers. NEUROLOGIC: more alert; weak reviewed and edited Accucheck: 106 Gustavo Rolon MD Jul 10, 2018 09:16
[2018-07-10] MEDS: Aspirin Baby 81mg ORAL SCH (10:20)
[2018-07-10] MEDS: Dextrose 10%/.45 SOD CHL 1,000 ML IV SCH (10:20)
[2018-07-10] MEDS: Heparin 5000 units/ml inj SUBQ SCH ×2 (10:23→21:17)
--- NOTE | 2018-07-10 11:12 | NUR ---
NURSE NOTES: Dr Rolon notified regarding ABG result, and he ordered a repeat ABG in the morning.
--- NOTE | 2018-07-10 11:19 | Infectious Diseases Prog Note ---
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 renal failure 3. diabetes mellitus 4. hypertension 5. rectal VRE colonization 6. shock 7. pneumonia with stenotrophomonas 8. mucous plugging s/p bronchoscopy P 1. continue vancomycin iv, meropenem 2. continue levoquin 6 more days 3. will follow up cultures Subjective Constitutional: Denies: fever, chills Respiratory: Denies: shortness of breath, dry cough Gastrointestinal/Abdominal: Denies: nausea, vomiting, diarrhea Musculoskeletal: Denies: pain Allergies: Coded Allergies: BENAZEPRIL (Verified Allergy, Unknown, 06/12/18) CODEINE (Verified Allergy, Unknown, 06/12/18) INSULIN ASPART (Verified Allergy, Unknown, 06/12/18) INSULIN DETEMIR (Verified Allergy, Unknown, 06/12/18) OPIOIDS - MORPHINE ANALOGUES (Verified Allergy, Unknown, 06/12/18) Objective Vital Signs Last 24 Hour Vital Signs Date Time Temp Pulse Resp B/P (MAP) Pulse Ox O2 Delivery O2 Flow Rate FiO2 07/10/18 08:00 71 07/10/18 04:00 97.5 72 18 119/63 (81) 98 07/10/18 04:00 70 07/10/18 04:00 Nasal Cannula 3.0 Nasal Cannula 3.0 07/10/18 00:00 79 07/10/18 00:00 Nasal Cannula 3.0 Nasal Cannula 3.0 07/10/18 00:00 96.4 73 18 109/60 (76) 98 07/09/18 20:00 Nasal Cannula 3.0 32 07/09/18 20:00 Nasal Cannula 3.0 Nasal Cannula 3.0 07/09/18 20:00 70 07/09/18 20:00 97.0 75 18 120/70 (87) 99 07/09/18 20:00 98 Nasal Cannula 3.0 32 07/09/18 16:00 Nasal Cannula 3.0 Nasal Cannula 3.0 07/09/18 16:00 97.0 67 18 122/74 (90) 98 07/09/18 16:00 69 07/09/18 12:00 61 07/09/18 12:00 Nasal Cannula 3.0 Nasal Cannula 3.0 07/09/18 12:00 97.3 65 18 100/54 (69) 100 Height (Feet): 5 Height (Inches): 6.00 Weight (Pounds): 244 Respiratory/Chest: lungs clear Cardiovascular: normal rate, regular rhythm, no gallop/murmur Abdomen: soft, non tender Extremities: no edema, other - right stump clean, left foot VAC, left arm PICC Laboratory Tests Test 07/09/18 13:22 07/10/18 03:10 07/10/18 10:25 Magnesium Level 1.8 MG/DL (1.8-2.4) Thyroid Stimulating Hormone (TSH) 8.721 uiU/mL (0.358-3.740) White Blood Count 3.9 K/UL (4.8-10.8) L Red Blood Count 3.24 M/UL (4.20-5.40) L Hemoglobin 8.6 G/DL (12.0-16.0) L Hematocrit 28.8 % (37.0-47.0) L Mean Corpuscular Volume 89 FL (80-99) Mean Corpuscular Hemoglobin 26.4 PG (27.0-31.0) L Mean Corpuscular Hemoglobin Concent 29.7 G/DL (32.0-36.0) L Red Cell Distribution Width 14.7 % (11.6-14.8) Platelet Count 136 K/UL (150-450) L Mean Platelet Volume 8.7 FL (6.5-10.1) Neutrophils (%) (Auto) 60.7 % (45.0-75.0) Lymphocytes (%) (Auto) 22.3 % (20.0-45.0) Monocytes (%) (Auto) 12.3 % (1.0-10.0) H Eosinophils (%) (Auto) 3.8 % (0.0-3.0) H Basophils (%) (Auto) 0.9 % (0.0-2.0) Sodium Level 135 MMOL/L (136-145) L Potassium Level 3.5 MMOL/L (3.5-5.1) Chloride Level 99 MMOL/L (98-107) Carbon Dioxide Level 30 MMOL/L (21-32) Anion Gap 6 mmol/L (5-15) Blood Urea Nitrogen 32 mg/dL (7-18) H Creatinine 4.6 MG/DL (0.55-1.30) H Estimat Glomerular Filtration Rate 11.4 mL/min (>60) Glucose Level 101 MG/DL (74-106) Calcium Level 8.3 MG/DL (8.5-10.1) L Total Bilirubin 0.3 MG/DL (0.2-1.0) Aspartate Amino Transf (AST/SGOT) 11 U/L (15-37) L Alanine Aminotransferase (ALT/SGPT) < 6 U/L (12-78) L Alkaline Phosphatase 122 U/L (46-116) H Total Protein 6.8 G/DL (6.4-8.2) Albumin 1.7 G/DL (3.4-5.0) L Globulin 5.1 g/dL Albumin/Globulin Ratio 0.3 (1.0-2.7) L Prealbumin Pending Arterial Blood pH 7.323 (7.350-7.450) Arterial Blood Partial Pressure CO2 55.8 mmHg (35.0-45.0) *H Arterial Blood Partial Pressure O2 95.3 mmHg (75.0-100.0) Arterial Blood HCO3 28.3 mmol/L (22.0-26.0) H Arterial Blood Oxygen Saturation 96.9 % (95-100) Arterial Blood Base Excess 1.6 (-2-2) Nicola Test Positive Current Medications Medications (Trade) Dose Ordered Sig/Andre Route PRN Reason Start Time Stop Time Status Last Admin Dose Admin Acetaminophen (Tylenol) 500 mg Q6H PRN ORAL Mild Pain/Temp > 100.5 07/08/18 11:00 07/28/18 10:59 07/09/18 21:23 Aspirin (ASA) 81 mg DAILY ORAL 07/09/18 09:00 08/08/18 08:59 07/10/18 10:20 Chlorhexidine Gluconate (Fabiola-Hex 2%) 1 applic DAILY@1999 TOPIC 07/08/18 20:00 07/18/18 19:59 07/09/18 21:20 Collagenase (Santyl) 1 applic DAILY TOPIC 07/09/18 09:00 08/08/18 08:59 07/10/18 10:21 Dextrose (Dextrose 50%) 25 ml Q30M PRN IV Hypoglycemia 07/08/18 09:15 07/17/18 20:14 Dextrose (Dextrose 50%) 50 ml Q30M PRN IV Hypoglycemia 07/08/18 09:15 07/17/18 20:14 Dextrose/Sodium Chloride 1,000 ml @ 30 mls/hr Q24H IV 07/08/18 09:00 07/30/18 08:59 07/10/18 10:20 Epoetin Marcus (Procrit (for ESRD on dialysis)) 7,000 units MON-TUE-TUE SUBQ 07/10/18 21:00 08/06/18 20:59 Heparin Sodium (Porcine) (Heparin 5000 units/ml) 5,000 units EVERY 12 HOURS SUBQ 07/08/18 21:00 07/13/18 20:59 07/10/18 10:23 Insulin Aspart (NovoLOG) BEFORE MEALS AND HS SUBQ 07/08/18 11:30 07/17/18 20:59 Levofloxacin (Levaquin) 250 mg Q48H ORAL 07/09/18 12:00 07/14/18 11:59 07/09/18 11:57 Meropenem 500 mg/ Sodium Chloride 55 ml @ 110 mls/hr Q24H IVPB 07/08/18 14:00 07/25/18 13:59 07/09/18 14:31 Pantoprazole (Protonix) 40 mg ACBREAKFAST ORAL 07/09/18 06:30 07/27/18 06:29 07/10/18 06:18 Vancomycin HCl (Vanco rx to dose) 1 ea DAILY PRN MISC Per rx protocol 07/08/18 09:00 07/29/18 08:14 Naya Cain MD Jul 10, 2018 11:19"
--- NOTE | 2018-07-10 11:55 | NUR ---
RD ASSESSMENT & RECOMMENDATIONS SEE CARE ACTIVITY FOR COMPLETE ASSESSMENT DAILY ESTIMATED NEEDS: Needs based on ESRD on HD, Wounds, (Adj Wt 62kg) 24-30 kcals/kg [id number] total kcals 1.25-2 g protein/kg 76-124 g total protein Fluid per MD, on HD NUTRITION DIAGNOSIS: 1) Increased kcal, pro needs R/T wound healing and renal dysfunction as evidenced by pt w/ open left heel now w/ wound vac, sacral and lt ischial wounds, w/ ESRD on HD. 2) Swallowing difficulty R/T respiratory status as evidenced by s/p code blue, now s/p extubation, seen by [employer] w/ rec for mech soft ground texture, thin liquid diet. CURRENT DIET:CCHO MED, RENAL/ mech soft ground PO DIET RECOMMENDATIONS: RENAL, CCHO MED/ texture per [employer] + high prot snacks BID ADDITIONAL RECOMMENDATIONS: 1) Wound healing: Continue Dimitry 1pkt BID, add Nephrovite x 1 2) Obtain dry wt post HD on a calibrated bed scale 3) Monitor renal fxn and lytes closely 4) Consider DC D10 IVF : hyponatremia, edematous, now w/ good oral intake, h/o DM 5) Follow up w/ Harrison Count x 72 hrs 6) [employer] eval for texture upgrade- pt reports disliking ground texture
[2018-07-10 12:00] VITALS: BP 110/57
--- NOTE | 2018-07-10 13:15 | Podiatric Progress Note ---
Assessment/Plan Patient Evita Jorge is a 72 year old female who was admitted on Jun 13, 2018 at 01: 43 with Assessment/Plan Problems: (1) Anemia of chronic disease (2) Bilateral pleural effusion (3) Peripheral vascular disease (4) DM2 (diabetes mellitus, type 2) (5) Left heel unstageable pressure ulcer with black eschar adhered to wound bed (6) acute on chronic anemia Assessment/Plan - Pt seen and evaluated. - Chart reviewed. - Temp, 96.6 - WBC, 3.9 - Left ankle MRI confirm chronic OM. Abx per ID. - No acute SOI noted to Left heel. Cont vac therapy. - Wound vac applied at bedside by wound care nursing staff, 125mmHg, Continuous. Keep vac dressing C/D/I. Change Tue-. - Pod will cont to monitor. Subjective Allergies: Coded Allergies: BENAZEPRIL (Verified Allergy, Unknown, 06/12/18) CODEINE (Verified Allergy, Unknown, 06/12/18) INSULIN ASPART (Verified Allergy, Unknown, 06/12/18) INSULIN DETEMIR (Verified Allergy, Unknown, 06/12/18) OPIOIDS - MORPHINE ANALOGUES (Verified Allergy, Unknown, 06/12/18) Subjective Pt seen at bedside with wound care nurse CHAPIS Barahona. Pt more alert at bedside, appears improved cognition. Resting at bedside. NAD. Objective Exam Last 24 Hour Vital Signs Date Time Temp Pulse Resp B/P (MAP) Pulse Ox O2 Delivery O2 Flow Rate FiO2 07/10/18 08:00 96.6 79 18 107/59 (75) 100 07/10/18 08:00 Nasal Cannula 3.0 Nasal Cannula 3.0 07/10/18 08:00 71 07/10/18 04:00 97.5 72 18 119/63 (81) 98 07/10/18 04:00 70 07/10/18 04:00 Nasal Cannula 3.0 Nasal Cannula 3.0 07/10/18 00:00 79 07/10/18 00:00 Nasal Cannula 3.0 Nasal Cannula 3.0 07/10/18 00:00 96.4 73 18 109/60 (76) 98 07/09/18 20:00 Nasal Cannula 3.0 32 07/09/18 20:00 Nasal Cannula 3.0 Nasal Cannula 3.0 07/09/18 20:00 70 07/09/18 20:00 97.0 75 18 120/70 (87) 99 07/09/18 20:00 98 Nasal Cannula 3.0 32 07/09/18 16:00 Nasal Cannula 3.0 Nasal Cannula 3.0 07/09/18 16:00 97.0 67 18 122/74 (90) 98 07/09/18 16:00 69 Laboratory Tests Test 07/09/18 13:22 07/10/18 03:10 07/10/18 10:25 Magnesium Level 1.8 MG/DL (1.8-2.4) Thyroid Stimulating Hormone (TSH) 8.721 uiU/mL (0.358-3.740) White Blood Count 3.9 K/UL (4.8-10.8) L Red Blood Count 3.24 M/UL (4.20-5.40) L Hemoglobin 8.6 G/DL (12.0-16.0) L Hematocrit 28.8 % (37.0-47.0) L Mean Corpuscular Volume 89 FL (80-99) Mean Corpuscular Hemoglobin 26.4 PG (27.0-31.0) L Mean Corpuscular Hemoglobin Concent 29.7 G/DL (32.0-36.0) L Red Cell Distribution Width 14.7 % (11.6-14.8) Platelet Count 136 K/UL (150-450) L Mean Platelet Volume 8.7 FL (6.5-10.1) Neutrophils (%) (Auto) 60.7 % (45.0-75.0) Lymphocytes (%) (Auto) 22.3 % (20.0-45.0) Monocytes (%) (Auto) 12.3 % (1.0-10.0) H Eosinophils (%) (Auto) 3.8 % (0.0-3.0) H Basophils (%) (Auto) 0.9 % (0.0-2.0) Sodium Level 135 MMOL/L (136-145) L Potassium Level 3.5 MMOL/L (3.5-5.1) Chloride Level 99 MMOL/L (98-107) Carbon Dioxide Level 30 MMOL/L (21-32) Anion Gap 6 mmol/L (5-15) Blood Urea Nitrogen 32 mg/dL (7-18) H Creatinine 4.6 MG/DL (0.55-1.30) H Estimat Glomerular Filtration Rate 11.4 mL/min (>60) Glucose Level 101 MG/DL (74-106) Calcium Level 8.3 MG/DL (8.5-10.1) L Total Bilirubin 0.3 MG/DL (0.2-1.0) Aspartate Amino Transf (AST/SGOT) 11 U/L (15-37) L Alanine Aminotransferase (ALT/SGPT) < 6 U/L (12-78) L Alkaline Phosphatase 122 U/L (46-116) H Total Protein 6.8 G/DL (6.4-8.2) Albumin 1.7 G/DL (3.4-5.0) L Globulin 5.1 g/dL Albumin/Globulin Ratio 0.3 (1.0-2.7) L Prealbumin Pending Arterial Blood pH 7.323 (7.350-7.450) Arterial Blood Partial Pressure CO2 55.8 mmHg (35.0-45.0) *H Arterial Blood Partial Pressure O2 95.3 mmHg (75.0-100.0) Arterial Blood HCO3 28.3 mmol/L (22.0-26.0) H Arterial Blood Oxygen Saturation 96.9 % (95-100) Arterial Blood Base Excess 1.6 (-2-2) Nicola Test Positive Microbiology Date/Time Source Procedure Growth Status 06/30/18 18:55 Blood Blood Culture - Final NO GROWTH AFTER 5 DAYS Complete 06/30/18 12:20 Body Fluid Gram Stain - Final Complete 06/30/18 12:20 Body Fluid Body Fluid Culture - Final NO GROWTH Complete 06/14/18 10:50 Other Gram Stain - Final Complete 06/14/18 10:50 Wound Culture - Final Pseudomonas Aeruginosa Morganella Morg Spp Morganii Streptococcus Group B Complete 07/04/18 01:00 Sputum Induced Gram Stain - Final Complete 07/04/18 01:00 Sputum Culture - Final Stenotrophomonas Maltophilia Paula Albicans Complete 06/14/18 10:50 Stool Clostridium difficile Toxin Assay - Final Complete 06/13/18 03:00 Rectum VRE Culture - Final Enterococcus Faecium - Vre Complete Dermatological Dermatological Narrative Focused: LLE Wound Vac D/C, wound evaluated. Wound base noted to SubQ. Granular base noted. Tanya-wound margins are hyper-pigmented. No active purulence noted. No acute SOI. Interval healing noted. Decrease in wound size. Shen Arizmendi DPM Jul 10, 2018 13:15
[2018-07-10] MEDS: Meropenem 500 MG in NS 55 ML IVPB SCH (15:33)
--- NOTE | 2018-07-10 15:43 | Nephrology Progress Note ---
Assessment/Plan Plan Doing amazingly well. To Med-Surg HD MWF. Subjective Subjective In [id number]. No events overnight. All noted. On the phone for hours. Had HD. Objective Objective Last 24 Hour Vital Signs Date Time Temp Pulse Resp B/P (MAP) Pulse Ox O2 Delivery O2 Flow Rate FiO2 07/10/18 08:00 96.6 79 18 107/59 (75) 100 07/10/18 08:00 Nasal Cannula 3.0 Nasal Cannula 3.0 07/10/18 08:00 71 07/10/18 04:00 97.5 72 18 119/63 (81) 98 07/10/18 04:00 70 07/10/18 04:00 Nasal Cannula 3.0 Nasal Cannula 3.0 07/10/18 00:00 79 07/10/18 00:00 Nasal Cannula 3.0 Nasal Cannula 3.0 07/10/18 00:00 96.4 73 18 109/60 (76) 98 07/09/18 20:00 Nasal Cannula 3.0 32 07/09/18 20:00 Nasal Cannula 3.0 Nasal Cannula 3.0 07/09/18 20:00 70 07/09/18 20:00 97.0 75 18 120/70 (87) 99 07/09/18 20:00 98 Nasal Cannula 3.0 32 07/09/18 16:00 Nasal Cannula 3.0 Nasal Cannula 3.0 07/09/18 16:00 97.0 67 18 122/74 (90) 98 07/09/18 16:00 69 Intake and Output 07/09/18 07/10/18 18:59 06:59 Intake Total 1035 ml 560 ml Balance 1035 ml 560 ml Intake Oral 650 ml 200 ml IV Total 385 ml 360 ml # Voids 1 # Bowel Movements 2 2 Laboratory Tests 07/10/18 03:10: White Blood Count 3.9L, Red Blood Count 3.24L, Hemoglobin 8.6L, Hematocrit 28.8L , Mean Corpuscular Volume 89, Mean Corpuscular Hemoglobin 26.4L, Mean Corpuscular Hemoglobin Concent 29.7L, Red Cell Distribution Width 14.7, Platelet Count 136L, Mean Platelet Volume 8.7, Neutrophils (%) (Auto) 60.7, Lymphocytes (%) (Auto) 22.3, Monocytes (%) (Auto) 12.3H, Eosinophils (%) (Auto) 3.8H, Basophils (%) (Auto) 0.9, Sodium Level 135L, Potassium Level 3.5, Chloride Level 99, Carbon Dioxide Level 30, Anion Gap 6, Blood Urea Nitrogen 32H , Creatinine 4.6H, Estimat Glomerular Filtration Rate 11.4, Glucose Level 101, Calcium Level 8.3L, Total Bilirubin 0.3, Aspartate Amino Transf (AST/SGOT) 11L, Alanine Aminotransferase (ALT/SGPT) < 6L, Alkaline Phosphatase 122H, Total Protein 6.8, Albumin 1.7L, Globulin 5.1, Albumin/Globulin Ratio 0.3L, Prealbumin [Pending] 07/10/18 10:25: Arterial Blood pH 7.323L, Arterial Blood Partial Pressure CO2 55.8*H, Arterial Blood Partial Pressure O2 95.3, Arterial Blood HCO3 28.3H, Arterial Blood Oxygen Saturation 96.9, Arterial Blood Base Excess 1.6, Nicola Test Positive Height (Feet): 5 Height (Inches): 6.00 Weight (Pounds): 244 Objective Blind Cv RR Lungs more air movement L Lung. Abd SNT. BS + E Rt AKA stump clean. Lt. heel ulcer. Alert. Brenda Fuller MD Jul 10, 2018 15:43
[2018-07-10 16:00] VITALS: BP 129/56
--- NOTE | 2018-07-10 17:17 | NUR ---
NURSE NOTES:WOUND CARE NOTES:L heel wound assessed along with .L heel wound resolving (L)3.8cm x (W)4.1cm.Wound bed granular with epithelial borders. Periwound is intact. No exudate noted in canister of wound vac. No odor noted.Periwound dry and intact.Orders from noted to increase therapy setting to 125mm/Hg to continuous suction .L heel wound cleansed with Saline . Cavilon Barrier wipe applied periwound. Transparent drape applied periwound.Granulofoam packing cut to size of wound then bridged to sylvester L tibia.Wound then covered with transparent drsg. NPWT resumed at 125mm/Hg to continuous suction as instructed by . Pt denied pain or discomfort.Intertriginous dermatitis noted to abd folds .Perineum and buttocks.Non-blanchable erythema with scattered partial thickness wounds noted to R and L buttocks and bilat ischial regions. Triad moisture Barrier paste applied to affected areas.All wound prevention protocols maintained as ordered. Tx.Plan:(Per )NPWT at 125mm/Hg to continuous suction .Change every Mondays and .
--- NOTE | 2018-07-10 19:25 | NUR ---
HAND-OFF: Report given to CHAPIS Mantilla. Patient VS stable at this time with no sign of acute distress. Patient has order for transfer to med/surg but there is no bed in med/surg at this time. Patient is receiving dialysis at this time. endorsed to follow up.
--- NOTE | 2018-07-10 19:26 | NUR ---
NURSE NOTES: Received patient from CHAPIS Jean Baptiste. Patient is awake, alert and oriented x3. Legally blind bilaterally. Dialysis in progress with nurse at bedside fri IR. On 3L nasal cannual and showing no signs of pain and distress. Will continue plan of care.
--- NOTE | 2018-07-10 19:50 | Cardiology Progress Note ---
Assessment/Plan Assessment/Plan stable off pressors, mental status improved, doing much better Subjective Subjective more alert and appropirate, looks better (I have not seen her for two days) Objective Last 24 Hour Vital Signs Date Time Temp Pulse Resp B/P (MAP) Pulse Ox O2 Delivery O2 Flow Rate FiO2 07/10/18 16:00 78 07/10/18 16:00 Nasal Cannula 3.0 Nasal Cannula 3.0 07/10/18 16:00 97.0 76 20 129/56 (80) 100 07/10/18 12:00 96.6 76 18 110/57 (74) 100 07/10/18 12:00 Nasal Cannula 3.0 Nasal Cannula 3.0 07/10/18 12:00 77 07/10/18 08:00 96.6 79 18 107/59 (75) 100 07/10/18 08:00 Nasal Cannula 3.0 Nasal Cannula 3.0 07/10/18 08:00 71 07/10/18 04:00 97.5 72 18 119/63 (81) 98 07/10/18 04:00 70 07/10/18 04:00 Nasal Cannula 3.0 Nasal Cannula 3.0 07/10/18 00:00 79 07/10/18 00:00 Nasal Cannula 3.0 Nasal Cannula 3.0 07/10/18 00:00 96.4 73 18 109/60 (76) 98 07/09/18 20:00 Nasal Cannula 3.0 32 07/09/18 20:00 Nasal Cannula 3.0 Nasal Cannula 3.0 07/09/18 20:00 70 07/09/18 20:00 97.0 75 18 120/70 (87) 99 07/09/18 20:00 98 Nasal Cannula 3.0 32 General Appearance: alert EENT: other - other Neck: JVD Rhythm: NSR Cardiovascular: normal rate, systolic murmur Respiratory/Chest: crackles/rales - at bases Abdomen: soft Extremities: other Intake and Output 07/09/18 07/10/18 18:59 06:59 Intake Total 1035 ml 560 ml Balance 1035 ml 560 ml Intake Oral 650 ml 200 ml IV Total 385 ml 360 ml # Voids 1 # Bowel Movements 2 2 Laboratory Tests Test 07/10/18 03:10 07/10/18 10:25 White Blood Count 3.9 K/UL (4.8-10.8) L Red Blood Count 3.24 M/UL (4.20-5.40) L Hemoglobin 8.6 G/DL (12.0-16.0) L Hematocrit 28.8 % (37.0-47.0) L Mean Corpuscular Volume 89 FL (80-99) Mean Corpuscular Hemoglobin 26.4 PG (27.0-31.0) L Mean Corpuscular Hemoglobin Concent 29.7 G/DL (32.0-36.0) L Red Cell Distribution Width 14.7 % (11.6-14.8) Platelet Count 136 K/UL (150-450) L Mean Platelet Volume 8.7 FL (6.5-10.1) Neutrophils (%) (Auto) 60.7 % (45.0-75.0) Lymphocytes (%) (Auto) 22.3 % (20.0-45.0) Monocytes (%) (Auto) 12.3 % (1.0-10.0) H Eosinophils (%) (Auto) 3.8 % (0.0-3.0) H Basophils (%) (Auto) 0.9 % (0.0-2.0) Sodium Level 135 MMOL/L (136-145) L Potassium Level 3.5 MMOL/L (3.5-5.1) Chloride Level 99 MMOL/L (98-107) Carbon Dioxide Level 30 MMOL/L (21-32) Anion Gap 6 mmol/L (5-15) Blood Urea Nitrogen 32 mg/dL (7-18) H Creatinine 4.6 MG/DL (0.55-1.30) H Estimat Glomerular Filtration Rate 11.4 mL/min (>60) Glucose Level 101 MG/DL (74-106) Calcium Level 8.3 MG/DL (8.5-10.1) L Total Bilirubin 0.3 MG/DL (0.2-1.0) Aspartate Amino Transf (AST/SGOT) 11 U/L (15-37) L Alanine Aminotransferase (ALT/SGPT) < 6 U/L (12-78) L Alkaline Phosphatase 122 U/L (46-116) H Total Protein 6.8 G/DL (6.4-8.2) Albumin 1.7 G/DL (3.4-5.0) L Globulin 5.1 g/dL Albumin/Globulin Ratio 0.3 (1.0-2.7) L Prealbumin Pending Arterial Blood pH 7.323 (7.350-7.450) Arterial Blood Partial Pressure CO2 55.8 mmHg (35.0-45.0) *H Arterial Blood Partial Pressure O2 95.3 mmHg (75.0-100.0) Arterial Blood HCO3 28.3 mmol/L (22.0-26.0) H Arterial Blood Oxygen Saturation 96.9 % (95-100) Arterial Blood Base Excess 1.6 (-2-2) Nicola Test Positive Clarisse Daley MD Jul 10, 2018 19:50
[2018-07-10 20:00] VITALS: BP 138/69
[2018-07-10] MEDS: Dyna-Hex 2% Top Sol 2oz TOPIC SCH (20:00)
[2018-07-10] MEDS ORDERED: Epogen (for ESRD on dialysis) SUBQ SCH (21:00)
[2018-07-11] VITALS: BP 150/78
[2018-07-11] MEDS ORDERED: Acetaminophen 500mg (ES) tab ORAL PRN (01:00)
--- NOTE | 2018-07-11 01:04 | NUR ---
NURSE NOTES: Transferred patient to 4E room 402-2. Patient is stable, report given to Ena.
[2018-07-11 04:00] VITALS: BP 135/65
[2018-07-11] MEDS: NovoLOG Insulin Flexpen SUBQ SCH ×4 (06:30→20:44)
--- NOTE | 2018-07-11 08:00 | NUR ---
nurse notes received patient in bed, patient awake, alert, oriented x3,O2 at 3 lpm VIA NC, no sign of distress, denies pain or discomfort, on going 1VF via left upper arm TLC, AV Shunt right ar, wound vac left heel, on fall isolation and aspiration precaution observed and maintained, kept clean dry and intact, needs met and anticipated tammy malcolm
[2018-07-11 08:40] VITALS: BP 121/76
--- NOTE | 2018-07-11 08:44 | Critical Care Progress Note ---
Assessment/Plan Assessment/Plan IMPRESSION: 1. Respiratory failure, acute. 2. Evidence of hypercapnia. 3. Evidence of metabolic acidosis. 4. Evidence of pleural effusion. s/p tap x2 5. End-stage renal disease. 6. Elevated troponin. 7. Possible demand ischemia. 8. Severe protein-calorie malnutrition. 9. Hyponatremia. 10. Hyperkalemia. 11. Anemia. 12. Thrombocytopenia. 13. Mild coagulopathy. 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 15. mucous plugging s/p bronch PLAN off vent and stable monitor acid base CPT as is clear secretions as able respiratory care monitor fluid results repeat ABG this am; has co2 retention close follow up monitor for imaging and change as needed medications/laboratory data/nursing notes reviewed in detail note reviewed and edited care discussed with RN and RT Critical Care - Subjective Interval Events: care noted on oxygen no clear distress noted Condition: stable, unchanged EKG Rhythm: Sinus Rhythm I&O: Intake and Output 07/10/18 07/11/18 19:00 07:00 Intake Total 865 ml 150 ml Balance 865 ml 150 ml Intake Oral 450 ml IV Total 415 ml 150 ml # Bowel Movements 1 Critical Care - Objective CXR: bilateral pleural effusion reduced lung volumes ET-Tube: 7.5 ET Position: 23 Last 24 Hour Vital Signs Date Time Temp Pulse Resp B/P (MAP) Pulse Ox O2 Delivery O2 Flow Rate FiO2 07/11/18 04:00 Nasal Cannula 3.0 Nasal Cannula 3.0 07/11/18 04:00 97.5 75 18 135/65 (88) 100 07/11/18 00:00 Nasal Cannula 3.0 Nasal Cannula 3.0 07/11/18 00:00 97.4 81 22 150/78 (102) 98 07/10/18 23:21 82 07/10/18 20:00 97.9 74 20 138/69 (92) 97 07/10/18 20:00 Nasal Cannula 3.0 Nasal Cannula 3.0 07/10/18 19:04 75 07/10/18 16:00 78 07/10/18 16:00 Nasal Cannula 3.0 Nasal Cannula 3.0 07/10/18 16:00 97.0 76 20 129/56 (80) 100 07/10/18 12:00 96.6 76 18 110/57 (74) 100 07/10/18 12:00 Nasal Cannula 3.0 Nasal Cannula 3.0 07/10/18 12:00 77 Labs: Laboratory Tests Test 07/10/18 10:25 07/11/18 06:50 07/11/18 08:10 Arterial Blood pH 7.323 (7.350-7.450) 7.351 (7.350-7.450) Arterial Blood Partial Pressure CO2 55.8 mmHg (35.0-45.0) *H 54.8 mmHg (35.0-45.0) H Arterial Blood Partial Pressure O2 95.3 mmHg (75.0-100.0) 135.5 mmHg (75.0-100.0) H Arterial Blood HCO3 28.3 mmol/L (22.0-26.0) H 29.6 mmol/L (22.0-26.0) H Arterial Blood Oxygen Saturation 96.9 % (95-100) 98.0 % (95-100) Arterial Blood Base Excess 1.6 (-2-2) 3.3 (-2-2) H Nicola Test Positive Positive Random Vancomycin Level 18.8 ug/mL Objective: GENERAL: A well-developed female chronically ill. currently off the vent; remains stable HEENT: Overall negative. NECK: Supple. No jugular venous distention. LUNGS: Reduced breath sounds. no rhonchi or wheeze; stable; improved overall CARDIAC: Normal S1 and S2. Regular rate and rhythm. without MRG ABDOMEN: Soft, nontender, and nondistended. no HSM; OGT out EXTREMITIES: No cyanosis or clubbing. The patient has a right above knee stump, left heel with ulcers. NEUROLOGIC: more alert; weak reviewed and edited Accucheck: 63 Gustavo Rolon MD Jul 11, 2018 08:44
[2018-07-11] MEDS: Dextrose 10%/.45 SOD CHL 1,000 ML IV SCH (08:48)
[2018-07-11] MEDS: Heparin 5000 units/ml inj SUBQ SCH ×2 (08:52→20:43)
[2018-07-11] MEDS: Aspirin Baby 81mg ORAL SCH (08:53)
--- NOTE | 2018-07-11 10:31 | NUR ---
[employer] SI: ANA T. 97.4 HR 81 RR 22 B/P 150/78 3L NC O2 SAT @ 98% IS: IVF D5NS @ 30ML/HR VANCO IV MEROPENEM IV LEVAQUIN PO HEPARIN SUBC. MED/SURG STATUS
[2018-07-11 12:03] VITALS: BP 115/56
[2018-07-11] MEDS: Meropenem 500 MG in NS 55 ML IVPB SCH (13:25)
--- NOTE | 2018-07-11 13:25 | Infectious Diseases Prog Note ---
Assessment/Plan Assessment/Plan A; Calcaneal osteomyelitis DM ESRD on HD AMS PVD Diabetic retinopathy Mitral & Tricuspid regurgitation Elevated troponin Hypotension resolved Pleural effusion s/p thoracentesis Pancytopenia P; continue Meropenem, Levaquin & Vancomycin Subjective ROS Limited/Unobtainable: Yes Constitutional: Reports: no symptoms Allergies: Coded Allergies: BENAZEPRIL (Verified Allergy, Unknown, 06/12/18) CODEINE (Verified Allergy, Unknown, 06/12/18) INSULIN ASPART (Verified Allergy, Unknown, 06/12/18) INSULIN DETEMIR (Verified Allergy, Unknown, 06/12/18) OPIOIDS - MORPHINE ANALOGUES (Verified Allergy, Unknown, 06/12/18) Objective Vital Signs Last 24 Hour Vital Signs Date Time Temp Pulse Resp B/P (MAP) Pulse Ox O2 Delivery O2 Flow Rate FiO2 07/11/18 12:03 98.4 73 20 115/56 (75) 100 07/11/18 09:08 Nasal Cannula 3.0 Nasal Cannula 3.0 07/11/18 04:00 Nasal Cannula 3.0 Nasal Cannula 3.0 07/11/18 04:00 97.5 75 18 135/65 (88) 100 07/11/18 00:00 Nasal Cannula 3.0 Nasal Cannula 3.0 07/11/18 00:00 97.4 81 22 150/78 (102) 98 07/10/18 23:21 82 07/10/18 20:00 97.9 74 20 138/69 (92) 97 07/10/18 20:00 Nasal Cannula 3.0 Nasal Cannula 3.0 07/10/18 19:04 75 07/10/18 16:00 78 07/10/18 16:00 Nasal Cannula 3.0 Nasal Cannula 3.0 07/10/18 16:00 97.0 76 20 129/56 (80) 100 Height (Feet): 5 Height (Inches): 6.00 Weight (Pounds): 248 General Appearance: no acute distress HEENT: mucous membranes moist Respiratory/Chest: lungs clear Cardiovascular: normal rate Abdomen: soft, non tender Extremities: no edema Neurologic/Psychiatric: alert, responsive Laboratory Tests Test 07/11/18 06:50 07/11/18 08:10 Random Vancomycin Level 18.8 ug/mL Arterial Blood pH 7.351 (7.350-7.450) Arterial Blood Partial Pressure CO2 54.8 mmHg (35.0-45.0) H Arterial Blood Partial Pressure O2 135.5 mmHg (75.0-100.0) H Arterial Blood HCO3 29.6 mmol/L (22.0-26.0) H Arterial Blood Oxygen Saturation 98.0 % (95-100) Arterial Blood Base Excess 3.3 (-2-2) H Nicola Test Positive Current Medications Medications (Trade) Dose Ordered Sig/Andre Route PRN Reason Start Time Stop Time Status Last Admin Dose Admin Acetaminophen (Tylenol) 500 mg Q6H PRN ORAL Mild Pain/Temp > 100.5 07/11/18 01:00 07/28/18 00:59 Aspirin (ASA) 81 mg DAILY ORAL 07/11/18 09:00 08/08/18 08:59 07/11/18 08:53 Chlorhexidine Gluconate (Fabiola-Hex 2%) 1 applic DAILY@1999 TOPIC 07/11/18 20:00 07/18/18 19:59 Collagenase (Santyl) 1 applic DAILY TOPIC 07/11/18 09:00 08/08/18 08:59 07/11/18 09:56 Dextrose (Dextrose 50%) 25 ml Q30M PRN IV Hypoglycemia 07/11/18 01:15 07/17/18 20:14 Dextrose (Dextrose 50%) 50 ml Q30M PRN IV Hypoglycemia 07/11/18 01:15 07/17/18 20:14 Dextrose/Sodium Chloride 1,000 ml @ 30 mls/hr Q24H IV 07/11/18 07:00 07/30/18 06:59 07/11/18 08:48 Epoetin Marcus (Procrit (for ESRD on dialysis)) 7,000 units TUE-TUE-TUE SUBQ 07/12/18 21:00 08/06/18 20:59 Heparin Sodium (Porcine) (Heparin 5000 units/ml) 5,000 units EVERY 12 HOURS SUBQ 07/11/18 09:00 07/13/18 20:59 07/11/18 08:52 Insulin Aspart (NovoLOG) BEFORE MEALS AND HS SUBQ 07/11/18 06:30 07/17/18 20:59 Levofloxacin (Levaquin) 250 mg Q48H ORAL 07/11/18 12:00 07/14/18 11:59 07/11/18 11:15 Meropenem 500 mg/ Sodium Chloride 55 ml @ 110 mls/hr Q24H IVPB 07/11/18 14:00 07/25/18 13:59 Pantoprazole (Protonix) 40 mg ACBREAKFAST ORAL 07/11/18 06:30 07/27/18 06:29 07/11/18 08:10 Vancomycin HCl (Vanco rx to dose) 1 ea DAILY PRN MISC Per rx protocol 07/11/18 09:00 07/29/18 08:14 Vancomycin HCl 500 mg/Dextrose 110 ml @ 110 mls/hr ONCE ONCE IVPB 07/11/18 18:00 07/11/18 18:59 Joe Melgar MD Jul 11, 2018 13:25
--- NOTE | 2018-07-11 15:13 | Nephrology Progress Note ---
Assessment/Plan Plan Doing amazingly well. To Med-Surg HD MWF. SNF tomorrow if stable? Subjective Subjective In Med-Surg. No events overnight. All noted. Alert. Objective Objective Last 24 Hour Vital Signs Date Time Temp Pulse Resp B/P (MAP) Pulse Ox O2 Delivery O2 Flow Rate FiO2 07/11/18 12:03 98.4 73 20 115/56 (75) 100 07/11/18 09:08 Nasal Cannula 3.0 Nasal Cannula 3.0 07/11/18 04:00 Nasal Cannula 3.0 Nasal Cannula 3.0 07/11/18 04:00 97.5 75 18 135/65 (88) 100 07/11/18 00:00 Nasal Cannula 3.0 Nasal Cannula 3.0 07/11/18 00:00 97.4 81 22 150/78 (102) 98 07/10/18 23:21 82 07/10/18 20:00 97.9 74 20 138/69 (92) 97 07/10/18 20:00 Nasal Cannula 3.0 Nasal Cannula 3.0 07/10/18 19:04 75 07/10/18 16:00 78 07/10/18 16:00 Nasal Cannula 3.0 Nasal Cannula 3.0 07/10/18 16:00 97.0 76 20 129/56 (80) 100 Intake and Output 07/10/18 07/11/18 19:00 07:00 Intake Total 865 ml 150 ml Balance 865 ml 150 ml Intake Oral 450 ml IV Total 415 ml 150 ml # Bowel Movements 1 Laboratory Tests 07/11/18 06:50: Random Vancomycin Level 18.8 07/11/18 08:10: Arterial Blood pH 7.351, Arterial Blood Partial Pressure CO2 54.8H, Arterial Blood Partial Pressure O2 135.5H, Arterial Blood HCO3 29.6H, Arterial Blood Oxygen Saturation 98.0, Arterial Blood Base Excess 3.3H, Nicola Test Positive Height (Feet): 5 Height (Inches): 6.00 Weight (Pounds): 248 Objective Blind Cv RR Lungs more air movement L Lung. Abd SNT. BS + E Rt AKA stump clean. Lt. heel ulcer. Alert. Brenda Fuller MD Jul 11, 2018 15:13
[2018-07-11] MEDS ORDERED: Heparin Sod 1000 units/ml 10ml IV PRN (15:30)
[2018-07-11 16:12] VITALS: BP 129/67
[2018-07-11] MEDS ORDERED: Vancomycin 500mg/D5W 110ml IVPB ONE ×2 (18:00)
--- NOTE | 2018-07-11 19:31 | NUR ---
NURSE NOTES Called [facility] spoke to Teofilo patient scheduled for HD gold tellez rn
--- NOTE | 2018-07-11 19:36 | NUR ---
HAND-OFF: Report given to CHAPIS Rivera RN.
[2018-07-11 20:00] VITALS: BP 130/64
[2018-07-11] MEDS: Dyna-Hex 2% Top Sol 2oz TOPIC SCH (20:39)
--- NOTE | 2018-07-11 20:40 | NUR ---
NURSE NOTES: Patient in bed awake and alert, no s/s distress noted. On NC at 3L, respiration is even and unlabored. Bed bathe given, kept clean and dry. Turned and repositioned. Wound vac on left heel, dry and intact. Bed in lowest position for safety. Call light within reach.
--- NOTE | 2018-07-11 22:18 | Cardiology Progress Note ---
Assessment/Plan Assessment/Plan stable off pressors, mental status improved, doing much better Subjective Subjective no significant changes, alert but confused has mild dypsnea laying down flat Objective Last 24 Hour Vital Signs Date Time Temp Pulse Resp B/P (MAP) Pulse Ox O2 Delivery O2 Flow Rate FiO2 07/11/18 21:00 Nasal Cannula 3.0 Nasal Cannula 3.0 07/11/18 20:00 97.4 74 18 130/64 (86) 99 07/11/18 16:12 97.3 68 19 129/67 (87) 98 07/11/18 12:03 98.4 73 20 115/56 (75) 100 07/11/18 09:08 Nasal Cannula 3.0 Nasal Cannula 3.0 07/11/18 08:40 98.0 76 19 121/76 (91) 100 07/11/18 04:00 Nasal Cannula 3.0 Nasal Cannula 3.0 07/11/18 04:00 97.5 75 18 135/65 (88) 100 07/11/18 00:00 Nasal Cannula 3.0 Nasal Cannula 3.0 07/11/18 00:00 97.4 81 22 150/78 (102) 98 07/10/18 23:21 82 General Appearance: other EENT: other Neck: JVD Rhythm: NSR Cardiovascular: systolic murmur Respiratory/Chest: crackles/rales Abdomen: distended Extremities: other Intake and Output 07/10/18 07/11/18 18:59 06:59 Intake Total 865 ml 180 ml Balance 865 ml 180 ml Intake Oral 450 ml IV Total 415 ml 180 ml # Bowel Movements 1 Laboratory Tests Test 07/11/18 06:50 07/11/18 08:10 Random Vancomycin Level 18.8 ug/mL Arterial Blood pH 7.351 (7.350-7.450) Arterial Blood Partial Pressure CO2 54.8 mmHg (35.0-45.0) H Arterial Blood Partial Pressure O2 135.5 mmHg (75.0-100.0) H Arterial Blood HCO3 29.6 mmol/L (22.0-26.0) H Arterial Blood Oxygen Saturation 98.0 % (95-100) Arterial Blood Base Excess 3.3 (-2-2) H Nicola Test Positive Clarisse Daley MD Jul 11, 2018 22:18
--- NOTE | 2018-07-11 23:50 | General Progress Note ---
Assessment/Plan Problem List: (1) Encephalopathy acute ICD Codes: G93.40 - Encephalopathy, unspecified SNOMED: 40022197, [id number] Assessment/Plan the pt lacks capacity to refuse medications the pt lacks capacity to leave ama haldol prn soft restraints as needed Subjective Date patient seen: Jul 10, 2018 Neurologic/Psychiatric: Reports: anxiety, depressed Allergies: Coded Allergies: BENAZEPRIL (Verified Allergy, Unknown, 06/12/18) CODEINE (Verified Allergy, Unknown, 06/12/18) INSULIN ASPART (Verified Allergy, Unknown, 06/12/18) INSULIN DETEMIR (Verified Allergy, Unknown, 06/12/18) OPIOIDS - MORPHINE ANALOGUES (Verified Allergy, Unknown, 06/12/18) Subjective the pt is somewhat lethargic the pt has episodes of agitation Objective Last 24 Hour Vital Signs Date Time Temp Pulse Resp B/P (MAP) Pulse Ox O2 Delivery O2 Flow Rate FiO2 07/11/18 21:00 Nasal Cannula 3.0 Nasal Cannula 3.0 07/11/18 20:00 97.4 74 18 130/64 (86) 99 07/11/18 16:12 97.3 68 19 129/67 (87) 98 07/11/18 12:03 98.4 73 20 115/56 (75) 100 07/11/18 09:08 Nasal Cannula 3.0 Nasal Cannula 3.0 07/11/18 08:40 98.0 76 19 121/76 (91) 100 07/11/18 04:00 Nasal Cannula 3.0 Nasal Cannula 3.0 07/11/18 04:00 97.5 75 18 135/65 (88) 100 07/11/18 00:00 Nasal Cannula 3.0 Nasal Cannula 3.0 07/11/18 00:00 97.4 81 22 150/78 (102) 98 Intake and Output 07/10/18 07/11/18 18:59 06:59 Intake Total 865 ml 180 ml Balance 865 ml 180 ml Intake Oral 450 ml IV Total 415 ml 180 ml # Bowel Movements 1 Laboratory Tests 07/11/18 06:50: Random Vancomycin Level 18.8 07/11/18 08:10: Arterial Blood pH 7.351, Arterial Blood Partial Pressure CO2 54.8H, Arterial Blood Partial Pressure O2 135.5H, Arterial Blood HCO3 29.6H, Arterial Blood Oxygen Saturation 98.0, Arterial Blood Base Excess 3.3H, Nicola Test Positive Height (Feet): 5 Height (Inches): 6.00 Weight (Pounds): 248 General Appearance: alert, confused, agitated Abelardo Yadav MD Jul 11, 2018 23:50
--- NOTE | 2018-07-11 23:51 | General Progress Note ---
Assessment/Plan Problem List: (1) Encephalopathy acute ICD Codes: G93.40 - Encephalopathy, unspecified SNOMED: [id number], [id number] Assessment/Plan the pt lacks capacity to refuse medications the pt lacks capacity to leave ama haldol prn soft restraints as needed Subjective Date patient seen: Jul 11, 2018 Neurologic/Psychiatric: Reports: anxiety Allergies: Coded Allergies: BENAZEPRIL (Verified Allergy, Unknown, 06/12/18) CODEINE (Verified Allergy, Unknown, 06/12/18) INSULIN ASPART (Verified Allergy, Unknown, 06/12/18) INSULIN DETEMIR (Verified Allergy, Unknown, 06/12/18) OPIOIDS - MORPHINE ANALOGUES (Verified Allergy, Unknown, 06/12/18) Subjective the pt is alert the pt has episodes of agitation Objective Last 24 Hour Vital Signs Date Time Temp Pulse Resp B/P (MAP) Pulse Ox O2 Delivery O2 Flow Rate FiO2 07/11/18 21:00 Nasal Cannula 3.0 Nasal Cannula 3.0 07/11/18 20:00 97.4 74 18 130/64 (86) 99 07/11/18 16:12 97.3 68 19 129/67 (87) 98 07/11/18 12:03 98.4 73 20 115/56 (75) 100 07/11/18 09:08 Nasal Cannula 3.0 Nasal Cannula 3.0 07/11/18 08:40 98.0 76 19 121/76 (91) 100 07/11/18 04:00 Nasal Cannula 3.0 Nasal Cannula 3.0 07/11/18 04:00 97.5 75 18 135/65 (88) 100 07/11/18 00:00 Nasal Cannula 3.0 Nasal Cannula 3.0 07/11/18 00:00 97.4 81 22 150/78 (102) 98 Intake and Output 07/10/18 07/11/18 18:59 06:59 Intake Total 865 ml 180 ml Balance 865 ml 180 ml Intake Oral 450 ml IV Total 415 ml 180 ml # Bowel Movements 1 Laboratory Tests 07/11/18 06:50: Random Vancomycin Level 18.8 07/11/18 08:10: Arterial Blood pH 7.351, Arterial Blood Partial Pressure CO2 54.8H, Arterial Blood Partial Pressure O2 135.5H, Arterial Blood HCO3 29.6H, Arterial Blood Oxygen Saturation 98.0, Arterial Blood Base Excess 3.3H, Nicola Test Positive Height (Feet): 5 Height (Inches): 6.00 Weight (Pounds): 248 Abelardo Yadav MD Jul 11, 2018 23:51
[2018-07-12] VITALS: BP 139/66
[2018-07-12 04:00] VITALS: BP 137/63
[2018-07-12] MEDS: Dextrose 10%/.45 SOD CHL 1,000 ML IV SCH (06:06)
[2018-07-12] MEDS: NovoLOG Insulin Flexpen SUBQ SCH ×4 (06:12→21:00)
[2018-07-12 07:11] LABS: EOSINOPHILS % (AUTO) 5.3 % (0.0-3.0); HEMATOCRIT 28.1 % (37.0-47.0); HEMOGLOBIN 8.2 G/DL (12.0-16.0); LYMPHOCYTES % (AUTO) 26.9 % (20.0-45.0); MEAN CORPUSCULAR VOLUME 92 FL (80-99); MONOCYTES % (AUTO) 11.4 % (1.0-10.0); NEUTROPHILS % (AUTO) 55.5 % (45.0-75.0); PLATELET COUNT 133 K/UL (150-450); RED BLOOD COUNT 3.06 M/UL (4.20-5.40); WHITE BLOOD COUNT 3.7 K/UL (4.8-10.8)
--- NOTE | 2018-07-12 07:24 | NUR ---
NURSE NOTES: Patient sleeping, on nasal cannula 3 mL, no sign of distress and shortness of breath. Patient right above knee amputation, wound vac in place for left heel. Patient had left upper arm triple lumen. patient scheduled for dialysis from [facility], access at right upper arm. Bed at lowest position, side rails up x2, breaks engaged. IV left upper arm, fluid running. Patient on ACHS, will keep monitoring blood sugar as scheduled. Call light within reach. Will keep monitoring.
--- NOTE | 2018-07-12 07:26 | NUR ---
HAND-OFF: Report given to Kalie NATION.
[2018-07-12 07:37] LABS: ALANINE AMINOTRANSFERASE < 6 U/L (12-78); ALBUMIN 1.7 G/DL (3.4-5.0); ALBUMIN/GLOBULIN RATIO 0.3 (1.0-2.7); ALKALINE PHOSPHATASE 113 U/L (46-116); ANION GAP 4 mmol/L (5-15); ASPARTATE AMINO TRANSFERASE 9 U/L (15-37); BILIRUBIN,TOTAL 0.3 MG/DL (0.2-1.0); BLOOD UREA NITROGEN 36 mg/dL (7-18); CALCIUM 8.5 MG/DL (8.5-10.1); CARBON DIOXIDE 31 MMOL/L (21-32); CHLORIDE 99 MMOL/L (98-107); CREATININE 4.2 MG/DL (0.55-1.30); PHOSPHORUS 3.4 MG/DL (2.5-4.9); POTASSIUM 3.6 MMOL/L (3.5-5.1); SODIUM 134 MMOL/L (136-145)
[2018-07-12 08:00] VITALS: BP 130/61
--- NOTE | 2018-07-12 08:46 | Critical Care Progress Note ---
Assessment/Plan Assessment/Plan IMPRESSION: 1. Respiratory failure, acute. 2. Evidence of hypercapnia. 3. Evidence of metabolic acidosis. 4. Evidence of pleural effusion. s/p tap x2 5. End-stage renal disease. 6. Elevated troponin. 7. Possible demand ischemia. 8. Severe protein-calorie malnutrition. 9. Hyponatremia. 10. Hyperkalemia. 11. Anemia. 12. Thrombocytopenia. 13. Mild coagulopathy. 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 15. mucous plugging s/p bronch PLAN off vent and remains stable monitor acid base CPT clear secretions as able respiratory care monitor fluid results repeat ABG for change close follow up monitor for imaging and change as needed medications/laboratory data/nursing notes reviewed in detail note reviewed and edited care discussed with RN and RT Critical Care - Subjective Condition: unchanged EKG Rhythm: Sinus Rhythm I&O: Intake and Output 07/11/18 07/12/18 19:00 07:00 Intake Total 1145 ml 690 ml Output Total 0 ml Balance 1145 ml 690 ml Intake Oral 680 ml 360 ml IV Total 465 ml 330 ml Drainage Total 0 ml # Voids 3 3 # Bowel Movements 3 1 Critical Care - Objective ET-Tube: 7.5 ET Position: 23 Last 24 Hour Vital Signs Date Time Temp Pulse Resp B/P (MAP) Pulse Ox O2 Delivery O2 Flow Rate FiO2 07/12/18 04:00 97.3 76 18 137/63 (87) 95 07/12/18 00:00 97.2 78 19 139/66 (90) 99 07/11/18 21:00 Nasal Cannula 3.0 Nasal Cannula 3.0 07/11/18 20:00 97.4 74 18 130/64 (86) 99 07/11/18 16:12 97.3 68 19 129/67 (87) 98 07/11/18 12:03 98.4 73 20 115/56 (75) 100 07/11/18 09:08 Nasal Cannula 3.0 Nasal Cannula 3.0 Labs: Laboratory Tests Test 07/12/18 05:20 White Blood Count 3.7 K/UL (4.8-10.8) L Red Blood Count 3.06 M/UL (4.20-5.40) L Hemoglobin 8.2 G/DL (12.0-16.0) L Hematocrit 28.1 % (37.0-47.0) L Mean Corpuscular Volume 92 FL (80-99) Mean Corpuscular Hemoglobin 27.0 PG (27.0-31.0) Mean Corpuscular Hemoglobin Concent 29.3 G/DL (32.0-36.0) L Red Cell Distribution Width 15.0 % (11.6-14.8) H Platelet Count 133 K/UL (150-450) L Mean Platelet Volume 8.9 FL (6.5-10.1) Neutrophils (%) (Auto) 55.5 % (45.0-75.0) Lymphocytes (%) (Auto) 26.9 % (20.0-45.0) Monocytes (%) (Auto) 11.4 % (1.0-10.0) H Eosinophils (%) (Auto) 5.3 % (0.0-3.0) H Basophils (%) (Auto) 1.0 % (0.0-2.0) Sodium Level 134 MMOL/L (136-145) L Potassium Level 3.6 MMOL/L (3.5-5.1) Chloride Level 99 MMOL/L (98-107) Carbon Dioxide Level 31 MMOL/L (21-32) Anion Gap 4 mmol/L (5-15) L Blood Urea Nitrogen 36 mg/dL (7-18) H Creatinine 4.2 MG/DL (0.55-1.30) H Estimat Glomerular Filtration Rate 12.7 mL/min (>60) Glucose Level 77 MG/DL (74-106) Calcium Level 8.5 MG/DL (8.5-10.1) Phosphorus Level 3.4 MG/DL (2.5-4.9) Total Bilirubin 0.3 MG/DL (0.2-1.0) Aspartate Amino Transf (AST/SGOT) 9 U/L (15-37) L Alanine Aminotransferase (ALT/SGPT) < 6 U/L (12-78) L Alkaline Phosphatase 113 U/L (46-116) Total Protein 6.9 G/DL (6.4-8.2) Albumin 1.7 G/DL (3.4-5.0) L Globulin 5.2 g/dL Albumin/Globulin Ratio 0.3 (1.0-2.7) L Objective: GENERAL: A well-developed female chronically ill. currently off the vent; remains stable HEENT: Overall negative. NECK: Supple. No jugular venous distention. LUNGS: Reduced breath sounds. no rhonchi or wheeze; stable; improved overall CARDIAC: Normal S1 and S2. Regular rate and rhythm. without MRG ABDOMEN: Soft, nontender, and nondistended. no HSM; OGT out EXTREMITIES: No cyanosis or clubbing. The patient has a right above knee stump, left heel with ulcers. NEUROLOGIC: more alert; weak reviewed and edited Accucheck: 86 Gustavo Rolon MD Jul 12, 2018 08:46
--- NOTE | 2018-07-12 08:52 | Nephrology Progress Note ---
Assessment/Plan Plan Doing amazingly well. To Med-Surg HD MWF. SNF tomorrow if stable? To determine after HD. Subjective Subjective In Med-Surg. No events overnight. All noted. Alert. Objective Objective Last 24 Hour Vital Signs Date Time Temp Pulse Resp B/P (MAP) Pulse Ox O2 Delivery O2 Flow Rate FiO2 07/12/18 04:00 97.3 76 18 137/63 (87) 95 07/12/18 00:00 97.2 78 19 139/66 (90) 99 07/11/18 21:00 Nasal Cannula 3.0 Nasal Cannula 3.0 07/11/18 20:00 97.4 74 18 130/64 (86) 99 07/11/18 16:12 97.3 68 19 129/67 (87) 98 07/11/18 12:03 98.4 73 20 115/56 (75) 100 07/11/18 09:08 Nasal Cannula 3.0 Nasal Cannula 3.0 Intake and Output 07/11/18 07/12/18 19:00 07:00 Intake Total 1145 ml 690 ml Output Total 0 ml Balance 1145 ml 690 ml Intake Oral 680 ml 360 ml IV Total 465 ml 330 ml Drainage Total 0 ml # Voids 3 3 # Bowel Movements 3 1 Laboratory Tests 07/12/18 05:20: White Blood Count 3.7L, Red Blood Count 3.06L, Hemoglobin 8.2L, Hematocrit 28.1L , Mean Corpuscular Volume 92, Mean Corpuscular Hemoglobin 27.0, Mean Corpuscular Hemoglobin Concent 29.3L, Red Cell Distribution Width 15.0H, Platelet Count 133L, Mean Platelet Volume 8.9, Neutrophils (%) (Auto) 55.5, Lymphocytes (%) (Auto) 26.9, Monocytes (%) (Auto) 11.4H, Eosinophils (%) (Auto) 5.3H, Basophils (%) (Auto) 1.0, Sodium Level 134L, Potassium Level 3.6, Chloride Level 99, Carbon Dioxide Level 31, Anion Gap 4L, Blood Urea Nitrogen 36H, Creatinine 4.2H, Estimat Glomerular Filtration Rate 12.7, Glucose Level 77 , Calcium Level 8.5, Phosphorus Level 3.4, Total Bilirubin 0.3, Aspartate Amino Transf (AST/SGOT) 9L, Alanine Aminotransferase (ALT/SGPT) < 6L, Alkaline Phosphatase 113, Total Protein 6.9, Albumin 1.7L, Globulin 5.2, Albumin/ Globulin Ratio 0.3L Height (Feet): 5 Height (Inches): 6.00 Weight (Pounds): 246 Objective Blind Cv RR Lungs more air movement L Lung. Abd SNT. BS + E Rt AKA stump clean. Lt. heel ulcer. Alert. Brenda Fuller MD Jul 12, 2018 08:52
[2018-07-12] MEDS: Heparin 5000 units/ml inj SUBQ SCH ×2 (09:00→21:00)
[2018-07-12] MEDS: Aspirin Baby 81mg ORAL SCH (09:14)
--- NOTE | 2018-07-12 09:33 | NUR ---
NURSE NOTES: Patient's platelet is 133, Heparin hold. Will keep monitoring.
--- NOTE | 2018-07-12 10:17 | NUR ---
DISCHARGE PLANNING ADMISSION CLINICALS FAXED TO: [facility] P:[phone] F:[phone] SPOKE WITH ALIDA SHE STATED THEY WOULD TAKE PATIENT BACK. ROOM#143-B SKILLED
--- NOTE | 2018-07-12 10:28 | NUR ---
RD ASSESSMENT & RECOMMENDATIONS SEE CARE ACTIVITY FOR COMPLETE ASSESSMENT DAILY ESTIMATED NEEDS: Needs based on ESRD on HD, Wounds, (Adj Wt 62kg) 24-30 kcals/kg 1820-9489 total kcals 1.25-2 g protein/kg 76-124 g total protein Fluid per MD, on HD NUTRITION DIAGNOSIS: 1) Increased kcal, pro needs R/T wound healing and renal dysfunction as evidenced by pt w/ open left heel now w/ wound vac, sacral and lt ischial wounds, w/ ESRD on HD. 2) Swallowing difficulty R/T respiratory status as evidenced by s/p code blue, now s/p extubation, seen by BOW REHAIRER, texture now advanced to soft easy chew. HARRISON COUNT X 72 HOURS COMPLETED INCOMPLETE DATA: ONLY TWO MEAL TICKETS AVAILABLE FOR REVIEW 07/09 Breakfast: 100% per EMR Lunch: 100% meatloaf, 50% green beans, 100% fresh fruit Dinner: 75% per EMR 07/10 Breakfast: not recorded Lunch: 100% chicken, 25% carrots, 100% Dimitry Dinner: 100% per EMR 07/11 Breakfast: 100% per EMR Lunch: 75% per EMR Dinner: 75% per EMR Data is incomplete to calculate accurate kcal/prot consumption. However, pt appears to be eating mostly 75-100% intake of meals, consuming ~8315-1046 kcal per day, adequate to meet est kcal needs. Pt also taking 100% of Dimitry 1pkt BID for wound healing. Pt reports appetite is "much better" and makes needs known to kitchen. Pt now on advanced texture diet of soft easy chew, which pt reports likes much more than previous ground texture. Pt reminded on the importance of adequate protein intake for wound healing and for HD needs. Pt verbalized good understanding. Noted diet liberalized to regular on 07/10. POC glu wnl w/ episodes of hypoglycemia at this time and lytes wnl. Cont to monitor POC glu and lytes for diet restriction CURRENT DIET:REGULAR/ SOFT EASY CHEW PO DIET RECOMMENDATIONS: RENAL/ texture per BOW REHAIRER + high prot snacks BID ADDITIONAL RECOMMENDATIONS: 1) Wound healing: Continue Dimitry 1pkt BID, add Nephrovite x 1 2) Obtain dry wt post HD on a calibrated bed scale 3) Monitor renal fxn and lytes closely 4) Consider DC D10 IVF : hyponatremia, edematous, now w/ good oral intake, h/o DM 5) Harrison Count x 72 hrs COMPLETED ON 07/12 6) Monitor BGs and lytes closely for diet restriction needs
--- NOTE | 2018-07-12 10:41 | NUR ---
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 97.5 HR 79 RR 18 B/P 130/91 3L NC O2 SAT @ 98% NA 134 IS: MEROPENEM IV LEVAQUIN PO HEPARIN SUBC MED/SURG STATUS
--- NOTE | 2018-07-12 10:51 | Infectious Diseases Prog Note ---
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 renal failure 3. diabetes mellitus 4. hypertension 5. rectal VRE colonization 6. shock resolved 7. pneumonia with stenotrophomonas 8. mucous plugging s/p bronchoscopy P 1. continue meropenem 14 more days 2. continue levoquin 4 more days 3. d/c iv vancomycin 4. will follow up cultures Subjective Constitutional: Denies: fever, chills Respiratory: Denies: shortness of breath, dry cough Gastrointestinal/Abdominal: Denies: nausea, vomiting, diarrhea Musculoskeletal: Denies: pain Allergies: Coded Allergies: BENAZEPRIL (Verified Allergy, Unknown, 06/12/18) CODEINE (Verified Allergy, Unknown, 06/12/18) INSULIN ASPART (Verified Allergy, Unknown, 06/12/18) INSULIN DETEMIR (Verified Allergy, Unknown, 06/12/18) OPIOIDS - MORPHINE ANALOGUES (Verified Allergy, Unknown, 06/12/18) Objective Vital Signs Last 24 Hour Vital Signs Date Time Temp Pulse Resp B/P (MAP) Pulse Ox O2 Delivery O2 Flow Rate FiO2 07/12/18 09:00 Nasal Cannula 3.0 Nasal Cannula 3.0 07/12/18 08:00 97.5 79 18 130/61 (84) 96 07/12/18 04:00 97.3 76 18 137/63 (87) 95 07/12/18 00:00 97.2 78 19 139/66 (90) 99 07/11/18 21:00 Nasal Cannula 3.0 Nasal Cannula 3.0 07/11/18 20:00 97.4 74 18 130/64 (86) 99 07/11/18 16:12 97.3 68 19 129/67 (87) 98 07/11/18 12:03 98.4 73 20 115/56 (75) 100 Height (Feet): 5 Height (Inches): 6.00 Weight (Pounds): 246 Respiratory/Chest: lungs clear Cardiovascular: normal rate, regular rhythm, no gallop/murmur Abdomen: soft, non tender Extremities: no edema, other - right stump clean, left foot VAC, left arm PICC Laboratory Tests Test 07/12/18 05:20 White Blood Count 3.7 K/UL (4.8-10.8) L Red Blood Count 3.06 M/UL (4.20-5.40) L Hemoglobin 8.2 G/DL (12.0-16.0) L Hematocrit 28.1 % (37.0-47.0) L Mean Corpuscular Volume 92 FL (80-99) Mean Corpuscular Hemoglobin 27.0 PG (27.0-31.0) Mean Corpuscular Hemoglobin Concent 29.3 G/DL (32.0-36.0) L Red Cell Distribution Width 15.0 % (11.6-14.8) H Platelet Count 133 K/UL (150-450) L Mean Platelet Volume 8.9 FL (6.5-10.1) Neutrophils (%) (Auto) 55.5 % (45.0-75.0) Lymphocytes (%) (Auto) 26.9 % (20.0-45.0) Monocytes (%) (Auto) 11.4 % (1.0-10.0) H Eosinophils (%) (Auto) 5.3 % (0.0-3.0) H Basophils (%) (Auto) 1.0 % (0.0-2.0) Sodium Level 134 MMOL/L (136-145) L Potassium Level 3.6 MMOL/L (3.5-5.1) Chloride Level 99 MMOL/L (98-107) Carbon Dioxide Level 31 MMOL/L (21-32) Anion Gap 4 mmol/L (5-15) L Blood Urea Nitrogen 36 mg/dL (7-18) H Creatinine 4.2 MG/DL (0.55-1.30) H Estimat Glomerular Filtration Rate 12.7 mL/min (>60) Glucose Level 77 MG/DL (74-106) Calcium Level 8.5 MG/DL (8.5-10.1) Phosphorus Level 3.4 MG/DL (2.5-4.9) Total Bilirubin 0.3 MG/DL (0.2-1.0) Aspartate Amino Transf (AST/SGOT) 9 U/L (15-37) L Alanine Aminotransferase (ALT/SGPT) < 6 U/L (12-78) L Alkaline Phosphatase 113 U/L (46-116) Total Protein 6.9 G/DL (6.4-8.2) Albumin 1.7 G/DL (3.4-5.0) L Globulin 5.2 g/dL Albumin/Globulin Ratio 0.3 (1.0-2.7) L Current Medications Medications (Trade) Dose Ordered Sig/Andre Route PRN Reason Start Time Stop Time Status Last Admin Dose Admin Acetaminophen (Tylenol) 500 mg Q6H PRN ORAL Mild Pain/Temp > 100.5 07/11/18 01:00 07/28/18 00:59 07/11/18 13:29 Aspirin (ASA) 81 mg DAILY ORAL 07/11/18 09:00 08/08/18 08:59 07/12/18 09:14 Chlorhexidine Gluconate (Fabiola-Hex 2%) 1 applic DAILY@1999 TOPIC 07/11/18 20:00 07/18/18 19:59 07/11/18 20:39 Collagenase (Santyl) 1 applic DAILY TOPIC 07/11/18 09:00 08/08/18 08:59 07/12/18 09:16 Dextrose (Dextrose 50%) 25 ml Q30M PRN IV Hypoglycemia 07/11/18 01:15 07/17/18 20:14 Dextrose (Dextrose 50%) 50 ml Q30M PRN IV Hypoglycemia 07/11/18 01:15 07/17/18 20:14 Dextrose/Sodium Chloride 1,000 ml @ 30 mls/hr Q24H IV 07/11/18 07:00 07/30/18 06:59 07/12/18 06:06 Epoetin Marcus (Procrit (for ESRD on dialysis)) 7,000 units TUE-TUE-TUE SUBQ 07/12/18 21:00 08/06/18 20:59 Heparin Sodium (Porcine) (Heparin 5000 units/ml) 5,000 units EVERY 12 HOURS SUBQ 07/11/18 09:00 07/13/18 20:59 07/11/18 20:43 Heparin Sodium (Porcine) (Heparin Sod 1000 units/ml 10ml) 2,000 unit ONCE PRN IV FOR HD USE ONLY 07/11/18 15:30 07/13/18 23:59 Insulin Aspart (NovoLOG) BEFORE MEALS AND HS SUBQ 07/11/18 06:30 07/17/18 20:59 Levofloxacin (Levaquin) 250 mg Q48H ORAL 07/11/18 12:00 07/14/18 11:59 12/18/18 11:15 Meropenem 500 mg/ Sodium Chloride 55 ml @ 110 mls/hr Q24H IVPB 07/11/18 14:00 07/25/18 13:59 07/11/18 13:25 Pantoprazole (Protonix) 40 mg ACBREAKFAST ORAL 07/11/18 06:30 07/27/18 06:29 07/12/18 06:05 Sodium Chloride 1,000 ml @ 500 mls/hr Q2H PRN IVLG sbp<90 during hd 07/11/18 15:30 07/13/18 23:59 Vancomycin HCl (Vanco rx to dose) 1 ea DAILY PRN MISC Per rx protocol 07/11/18 09:00 07/29/18 08:14 Naya Cain MD Jul 12, 2018 10:51"
[2018-07-12] MEDS ORDERED: LORazepam 1mg tab ORAL PRN (11:15)
[2018-07-12 12:00] VITALS: BP 156/81
[2018-07-12] MEDS: Meropenem 500 MG in NS 55 ML IVPB SCH (13:26)
--- NOTE | 2018-07-12 14:38 | NUR ---
ST NOTE: SWALLOW/SPEECH/LANGUAGE/COGNITION STATUS CHART REVIEWED. PT SEEN AT BEDSIDE IN PM WITH PT'S LUNCH TRAY IN FRONT OF HER. PT WAS ON [facility] SOFT(GROUND). CURRENTLY, PT'S DIET WAS UPGRADED TO SOFT, EASY CHEW. 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 PT IS ALERT, COOPERATIVE, FOLLOWS DIRECTION, ABLE TO EXPRESS WANTS AND NEEDS VERBALLY. PER PT, DENIED ANY SWALLOWING DIFFICULTY. GIVEN THIN LIQUIDS AND SOFT VEGETABLES, SLOW BUT FUNCTIONAL MASTICATION, MIN ORAL TRANSIT TIME AND OROPHARYNGEAL TRANSIT TIME, FAIR LARYNGEAL ELEVATION, NO OVERT S/S OF ASPIRATION. PT ATE 40-50% OF THE FOOD. DUE TO SCHEDULING CONFLICT, UNABLE TO COMPLETE VIDEOSWALLOW STUDY AT THIS TIME. CAN COMPLETE OP, DO NOT HOLD OFF THE DISCHARGE. RN NOT AVAILABLE AT THIS TIME.
--- NOTE | 2018-07-12 15:14 | General Progress Note ---
Assessment/Plan Problem List: (1) Encephalopathy acute ICD Codes: G93.40 - Encephalopathy, unspecified SNOMED: [id number], [id number] Status: stable Assessment/Plan the pt lacks capacity to refuse medications the pt lacks capacity to leave ama haldol prn soft restraints as needed Subjective Neurologic/Psychiatric: Reports: anxiety, depressed, emotional problems Allergies: Coded Allergies: BENAZEPRIL (Verified Allergy, Unknown, 06/12/18) CODEINE (Verified Allergy, Unknown, 06/12/18) INSULIN ASPART (Verified Allergy, Unknown, 06/12/18) INSULIN DETEMIR (Verified Allergy, Unknown, 06/12/18) OPIOIDS - MORPHINE ANALOGUES (Verified Allergy, Unknown, 06/12/18) Subjective the pt is alert she was agitated today Objective Last 24 Hour Vital Signs Date Time Temp Pulse Resp B/P (MAP) Pulse Ox O2 Delivery O2 Flow Rate FiO2 07/12/18 12:00 97.9 70 18 156/81 (106) 100 07/12/18 09:30 99 Nasal Cannula 3.0 32 07/12/18 09:30 Nasal Cannula 3.0 32 07/12/18 09:30 75 18 07/12/18 09:00 Nasal Cannula 3.0 Nasal Cannula 3.0 07/12/18 08:00 97.5 79 18 130/61 (84) 96 07/12/18 04:00 97.3 76 18 137/63 (87) 95 07/12/18 00:00 97.2 78 19 139/66 (90) 99 07/11/18 21:00 Nasal Cannula 3.0 Nasal Cannula 3.0 07/11/18 20:00 97.4 74 18 130/64 (86) 99 07/11/18 16:12 97.3 68 19 129/67 (87) 98 Intake and Output 07/11/18 07/12/18 19:00 07:00 Intake Total 1145 ml 690 ml Output Total 0 ml Balance 1145 ml 690 ml Intake Oral 680 ml 360 ml IV Total 465 ml 330 ml Drainage Total 0 ml # Voids 3 3 # Bowel Movements 3 1 Laboratory Tests 07/12/18 05:20: White Blood Count 3.7L, Red Blood Count 3.06L, Hemoglobin 8.2L, Hematocrit 28.1L , Mean Corpuscular Volume 92, Mean Corpuscular Hemoglobin 27.0, Mean Corpuscular Hemoglobin Concent 29.3L, Red Cell Distribution Width 15.0H, Platelet Count 133L, Mean Platelet Volume 8.9, Neutrophils (%) (Auto) 55.5, Lymphocytes (%) (Auto) 26.9, Monocytes (%) (Auto) 11.4H, Eosinophils (%) (Auto) 5.3H, Basophils (%) (Auto) 1.0, Sodium Level 134L, Potassium Level 3.6, Chloride Level 99, Carbon Dioxide Level 31, Anion Gap 4L, Blood Urea Nitrogen 36H, Creatinine 4.2H, Estimat Glomerular Filtration Rate 12.7, Glucose Level 77 , Calcium Level 8.5, Phosphorus Level 3.4, Total Bilirubin 0.3, Aspartate Amino Transf (AST/SGOT) 9L, Alanine Aminotransferase (ALT/SGPT) < 6L, Alkaline Phosphatase 113, Total Protein 6.9, Albumin 1.7L, Globulin 5.2, Albumin/ Globulin Ratio 0.3L Height (Feet): 5 Height (Inches): 6.00 Weight (Pounds): 246 General Appearance: alert, agitated Neurologic: oriented x 3, responsive Abelardo Yadav MD Jul 12, 2018 15:14
[2018-07-12 16:00] VITALS: BP 131/68
--- NOTE | 2018-07-12 16:24 | NUR ---
NURSE NOTES: Patient is getting dialysis, will keep monitoring.
--- NOTE | 2018-07-12 19:21 | NUR ---
HAND-OFF: Report given to CHAPIS Nguyen.
--- NOTE | 2018-07-12 19:40 | NUR ---
NURSE NOTES: Patient asleep in bed, not in acute respiratory distress, no signs of pain. Dialysis nurse at bedside. Call light and needs in reach. Bed in lowest position, lock engaged and alarm on. Will continue to monitor.
[2018-07-12 20:00] VITALS: BP 146/72
[2018-07-12] MEDS: Dyna-Hex 2% Top Sol 2oz TOPIC SCH (22:27)
[2018-07-12] MEDS: Epogen (for ESRD on dialysis) SUBQ SCH (22:28)
[2018-07-13] VITALS: BP 143/77
[2018-07-13 04:00] VITALS: BP 119/79
[2018-07-13] MEDS: NovoLOG Insulin Flexpen SUBQ SCH ×4 (06:27→21:00)
[2018-07-13] MEDS: Dextrose 10%/.45 SOD CHL 1,000 ML IV SCH (06:37)
--- NOTE | 2018-07-13 07:24 | NUR ---
HAND-OFF: Report given to CHAPIS Geiger.
--- NOTE | 2018-07-13 07:34 | NUR ---
HAND-OFF: Report received from CHAPIS Mckay. Pt in bed, awake, eating, no complaint of pain, no apparent distress, bed in lowest position, call light within reach.
--- NOTE | 2018-07-13 07:43 | Critical Care Progress Note ---
Assessment/Plan Assessment/Plan IMPRESSION: 1. Respiratory failure, acute. 2. Evidence of hypercapnia. 3. Evidence of metabolic acidosis. 4. Evidence of pleural effusion. s/p tap x2 5. End-stage renal disease. 6. Elevated troponin. 7. Possible demand ischemia. 8. Severe protein-calorie malnutrition. 9. Hyponatremia. 10. Hyperkalemia. 11. Anemia. 12. Thrombocytopenia. 13. Mild coagulopathy. 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 15. mucous plugging s/p bronch PLAN monitor acid base CPT clear secretions as able respiratory care monitor fluid results repeat ABG today close follow up follow up cxr today medications/laboratory data/nursing notes reviewed in detail note reviewed and edited care discussed with RN and RT Critical Care - Subjective Interval Events: no distress overnight events reviewed EKG Rhythm: Sinus Rhythm I&O: Intake and Output 07/12/18 07/13/18 19:00 07:00 Intake Total 360 ml 250 ml Balance 360 ml 250 ml Intake Oral 250 ml IV Total 360 ml # Voids 5 2 # Bowel Movements 1 2 Critical Care - Objective ET-Tube: 7.5 ET Position: 23 Last 24 Hour Vital Signs Date Time Temp Pulse Resp B/P (MAP) Pulse Ox O2 Delivery O2 Flow Rate FiO2 07/13/18 04:00 97.2 72 20 119/79 (92) 100 07/13/18 00:00 97.3 84 20 143/77 (99) 100 07/12/18 21:00 Nasal Cannula 3.0 Nasal Cannula 3.0 07/12/18 20:00 97.3 77 20 146/72 (96) 100 07/12/18 16:00 98.0 81 20 131/68 (89) 98 07/12/18 12:00 97.9 70 18 156/81 (106) 100 07/12/18 09:30 99 Nasal Cannula 3.0 32 07/12/18 09:30 Nasal Cannula 3.0 32 07/12/18 09:30 75 18 07/12/18 09:00 Nasal Cannula 3.0 Nasal Cannula 3.0 07/12/18 08:00 97.5 79 18 130/61 (84) 96 Labs: Labs Test 07/10/18 10:25 07/11/18 06:50 07/11/18 08:10 07/12/18 05:20 Arterial Blood pH 7.323 (7.350-7.450) 7.351 (7.350-7.450) Arterial Blood Partial Pressure CO2 55.8 mmHg (35.0-45.0) 54.8 mmHg (35.0-45.0) Arterial Blood Partial Pressure O2 95.3 mmHg (75.0-100.0) 135.5 mmHg (75.0-100.0) Arterial Blood HCO3 28.3 mmol/L (22.0-26.0) 29.6 mmol/L (22.0-26.0) Arterial Blood Oxygen Saturation 96.9 % (95-100) 98.0 % (95-100) Arterial Blood Base Excess 1.6 (-2-2) 3.3 (-2-2) Nicola Test Positive Positive Random Vancomycin Level 18.8 ug/mL White Blood Count 3.7 K/UL (4.8-10.8) Red Blood Count 3.06 M/UL (4.20-5.40) Hemoglobin 8.2 G/DL (12.0-16.0) Hematocrit 28.1 % (37.0-47.0) Mean Corpuscular Volume 92 FL (80-99) Mean Corpuscular Hemoglobin 27.0 PG (27.0-31.0) Mean Corpuscular Hemoglobin Concent 29.3 G/DL (32.0-36.0) Red Cell Distribution Width 15.0 % (11.6-14.8) Platelet Count 133 K/UL (150-450) Mean Platelet Volume 8.9 FL (6.5-10.1) Neutrophils (%) (Auto) 55.5 % (45.0-75.0) Lymphocytes (%) (Auto) 26.9 % (20.0-45.0) Monocytes (%) (Auto) 11.4 % (1.0-10.0) Eosinophils (%) (Auto) 5.3 % (0.0-3.0) Basophils (%) (Auto) 1.0 % (0.0-2.0) Sodium Level 134 MMOL/L (136-145) Potassium Level 3.6 MMOL/L (3.5-5.1) Chloride Level 99 MMOL/L (98-107) Carbon Dioxide Level 31 MMOL/L (21-32) Anion Gap 4 mmol/L (5-15) Blood Urea Nitrogen 36 mg/dL (7-18) Creatinine 4.2 MG/DL (0.55-1.30) Estimat Glomerular Filtration Rate 12.7 mL/min (>60) Glucose Level 77 MG/DL (74-106) Calcium Level 8.5 MG/DL (8.5-10.1) Phosphorus Level 3.4 MG/DL (2.5-4.9) Total Bilirubin 0.3 MG/DL (0.2-1.0) Aspartate Amino Transf (AST/SGOT) 9 U/L (15-37) Alanine Aminotransferase (ALT/SGPT) < 6 U/L (12-78) Alkaline Phosphatase 113 U/L (46-116) Total Protein 6.9 G/DL (6.4-8.2) Albumin 1.7 G/DL (3.4-5.0) Globulin 5.2 g/dL Albumin/Globulin Ratio 0.3 (1.0-2.7) Objective: GENERAL: A well-developed female chronically ill. on NC HEENT: Overall negative. NECK: Supple. No jugular venous distention. LUNGS: Reduced breath sounds. no rhonchi or wheeze; stable; same CARDIAC: Normal S1 and S2. Regular rate and rhythm. without MRG ABDOMEN: Soft, nontender, and nondistended. no HSM; OGT out EXTREMITIES: No cyanosis or clubbing. The patient has a right above knee stump, left heel with ulcers. NEUROLOGIC: weak overall reviewed and edited Accucheck: 94 Gustavo Rolon MD Jul 13, 2018 07:42
[2018-07-13 08:00] VITALS: BP 154/86
[2018-07-13] MEDS: Aspirin Baby 81mg ORAL SCH (08:07)
[2018-07-13] MEDS: Heparin 5000 units/ml inj SUBQ SCH (08:09)
--- NOTE | 2018-07-13 08:57 | NUR ---
NURSE NOTES: Notified Dr. Rolon of ABG results
--- NOTE | 2018-07-13 10:32 | Diagnostic Imaging Report ---
Indication: Shortness of breath Technique: XRAY Chest 1v Comparison: 07/06/2018 Findings: Heart borders are obscured but likely stable. There is bilateral interstitial opacification/edema. Bilateral pleural effusions are also noted, moderate to large in size and increased from the prior exam. Possible loculation of pleural fluid. There is bibasilar atelectasis/consolidation. No pneumothorax. Osseous structures are stable. Impression: Increased in bilateral pleural effusions, now moderate to large bilaterally. There may be some loculation of pleural fluid. There is adjacent bibasilar atelectasis/consolidation.
--- NOTE | 2018-07-13 10:57 | NUR ---
NURSE NOTES: 1057: left message at Dr. Daley's office regarding BP 154/86 HR 84
[2018-07-13 12:00] VITALS: BP 110/90
--- NOTE | 2018-07-13 12:36 | NUR ---
CASE MANAGEMENT NOTES SPOKE TO ALIDA AT [facility]. SHE STATED PATIENT ROOM# 228-B SKILLED.
--- NOTE | 2018-07-13 13:01 | General Progress Note ---
Assessment/Plan Problem List: (1) Encephalopathy acute ICD Codes: G93.40 - Encephalopathy, unspecified SNOMED: 40731329, [id number] Status: stable, progressing Assessment/Plan the pt lacks capacity to refuse medications the pt lacks capacity to leave ama haldol prn soft restraints as needed ativan prn Subjective Neurologic/Psychiatric: Reports: anxiety, depressed, emotional problems Allergies: Coded Allergies: BENAZEPRIL (Verified Allergy, Unknown, 06/12/18) CODEINE (Verified Allergy, Unknown, 06/12/18) INSULIN ASPART (Verified Allergy, Unknown, 06/12/18) INSULIN DETEMIR (Verified Allergy, Unknown, 06/12/18) OPIOIDS - MORPHINE ANALOGUES (Verified Allergy, Unknown, 06/12/18) Subjective the pt is alert she was agitated today Objective Last 24 Hour Vital Signs Date Time Temp Pulse Resp B/P (MAP) Pulse Ox O2 Delivery O2 Flow Rate FiO2 07/13/18 12:00 97.2 76 17 110/90 (97) 97 07/13/18 08:23 Nasal Cannula 3.0 Nasal Cannula 3.0 07/13/18 08:00 97.3 84 19 154/86 (108) 97 07/13/18 07:15 Nasal Cannula 3.0 32 07/13/18 07:15 99 Nasal Cannula 3.0 32 07/13/18 04:00 97.2 72 20 119/79 (92) 100 07/13/18 00:00 97.3 84 20 143/77 (99) 100 07/12/18 21:00 Nasal Cannula 3.0 Nasal Cannula 3.0 07/12/18 20:00 97.3 77 20 146/72 (96) 100 07/12/18 16:00 98.0 81 20 131/68 (89) 98 Intake and Output 07/12/18 07/13/18 19:00 07:00 Intake Total 360 ml 250 ml Balance 360 ml 250 ml Intake Oral 250 ml IV Total 360 ml # Voids 5 2 # Bowel Movements 1 2 Laboratory Tests 07/13/18 08:25: Arterial Blood pH 7.328L, Arterial Blood Partial Pressure CO2 58.8*H, Arterial Blood Partial Pressure O2 141.6H, Arterial Blood HCO3 30.2H, Arterial Blood Oxygen Saturation 98.5, Arterial Blood Base Excess 3.3H, Nicola Test Positive Height (Feet): 5 Height (Inches): 6.00 Weight (Pounds): 242 General Appearance: no apparent distress, alert, agitated Abelardo Yadav MD Jul 13, 2018 13:01
[2018-07-13] MEDS: Meropenem 500 MG in NS 55 ML IVPB SCH (14:15)
--- NOTE | 2018-07-13 14:17 | Infectious Diseases Prog Note ---
Assessment/Plan Assessment/Plan A; Calcaneal osteomyelitis DM ESRD on HD AMS PVD Diabetic retinopathy Mitral & Tricuspid regurgitation Elevated troponin Hypotension resolved Pleural effusion s/p thoracentesis Pancytopenia P; continue Meropenem, Levaquin Stool for C. Difficile Subjective ROS Limited/Unobtainable: Yes Constitutional: Reports: no symptoms Respiratory: Reports: productive cough Gastrointestinal/Abdominal: Reports: diarrhea Genitourinary: Reports: no symptoms Allergies: Coded Allergies: BENAZEPRIL (Verified Allergy, Unknown, 06/12/18) CODEINE (Verified Allergy, Unknown, 06/12/18) INSULIN ASPART (Verified Allergy, Unknown, 06/12/18) INSULIN DETEMIR (Verified Allergy, Unknown, 06/12/18) OPIOIDS - MORPHINE ANALOGUES (Verified Allergy, Unknown, 06/12/18) Objective Vital Signs Last 24 Hour Vital Signs Date Time Temp Pulse Resp B/P (MAP) Pulse Ox O2 Delivery O2 Flow Rate FiO2 07/13/18 12:00 97.2 76 17 110/90 (97) 97 07/13/18 08:23 Nasal Cannula 3.0 Nasal Cannula 3.0 07/13/18 08:00 97.3 84 19 154/86 (108) 97 07/13/18 07:15 Nasal Cannula 3.0 32 07/13/18 07:15 99 Nasal Cannula 3.0 32 07/13/18 04:00 97.2 72 20 119/79 (92) 100 07/13/18 00:00 97.3 84 20 143/77 (99) 100 07/12/18 21:00 Nasal Cannula 3.0 Nasal Cannula 3.0 07/12/18 20:00 97.3 77 20 146/72 (96) 100 07/12/18 16:00 98.0 81 20 131/68 (89) 98 Height (Feet): 5 Height (Inches): 6.00 Weight (Pounds): 242 HEENT: mucous membranes moist Respiratory/Chest: lungs clear Cardiovascular: normal rate, other - R arm PICC line Abdomen: soft, non tender Extremities: other - R BKA, generalized edema Neurologic/Psychiatric: alert, responsive Laboratory Tests Test 07/13/18 08:25 Arterial Blood pH 7.328 (7.350-7.450) Arterial Blood Partial Pressure CO2 58.8 mmHg (35.0-45.0) *H Arterial Blood Partial Pressure O2 141.6 mmHg (75.0-100.0) H Arterial Blood HCO3 30.2 mmol/L (22.0-26.0) H Arterial Blood Oxygen Saturation 98.5 % (95-100) Arterial Blood Base Excess 3.3 (-2-2) H Nicola Test Positive Current Medications Medications (Trade) Dose Ordered Sig/Andre Route PRN Reason Start Time Stop Time Status Last Admin Dose Admin Acetaminophen (Tylenol) 500 mg Q6H PRN ORAL Mild Pain/Temp > 100.5 07/11/18 01:00 07/28/18 00:59 07/11/18 13:29 Aspirin (ASA) 81 mg DAILY ORAL 07/11/18 09:00 08/08/18 08:59 07/13/18 08:07 Chlorhexidine Gluconate (Fabiola-Hex 2%) 1 applic DAILY@1999 TOPIC 07/11/18 20:00 07/18/18 19:59 07/12/18 22:27 Collagenase (Santyl) 1 applic DAILY TOPIC 07/11/18 09:00 08/08/18 08:59 07/13/18 08:08 Dextrose (Dextrose 50%) 25 ml Q30M PRN IV Hypoglycemia 07/11/18 01:15 07/17/18 20:14 Dextrose (Dextrose 50%) 50 ml Q30M PRN IV Hypoglycemia 07/11/18 01:15 07/17/18 20:14 Dextrose/Sodium Chloride 1,000 ml @ 30 mls/hr Q24H IV 07/11/18 07:00 07/30/18 06:59 07/13/18 06:37 Epoetin Marcus (Procrit (for ESRD on dialysis)) 7,000 units TUE-TUE-TUE SUBQ 07/12/18 21:00 08/06/18 20:59 07/12/18 22:28 Heparin Sodium (Porcine) (Heparin 5000 units/ml) 5,000 units EVERY 12 HOURS SUBQ 07/11/18 09:00 07/13/18 20:59 07/13/18 08:09 Heparin Sodium (Porcine) (Heparin Sod 1000 units/ml 10ml) 2,000 unit ONCE PRN IV FOR HD USE ONLY 07/11/18 15:30 07/13/18 23:59 Insulin Aspart (NovoLOG) BEFORE MEALS AND HS SUBQ 07/11/18 06:30 07/17/18 20:59 Levofloxacin (Levaquin) 250 mg Q48H ORAL 07/13/18 12:00 07/16/18 11:59 07/13/18 11:25 Lorazepam (Ativan) 1 mg Q4H PRN ORAL For Anxiety 07/12/18 11:15 07/19/18 11:14 Meropenem 500 mg/ Sodium Chloride 55 ml @ 110 mls/hr Q24H IVPB 07/11/18 14:00 07/25/18 13:59 07/12/18 13:26 Pantoprazole (Protonix) 40 mg ACBREAKFAST ORAL 07/11/18 06:30 07/27/18 06:29 07/13/18 06:37 Sodium Chloride 1,000 ml @ 500 mls/hr Q2H PRN IVLG sbp<90 during hd 07/11/18 15:30 07/13/18 23:59 Joe Melgar MD Jul 13, 2018 14:17
[2018-07-13] MEDS ORDERED: NS 275ml ONE (15:23)
[2018-07-13] MEDS ORDERED: Tubing IV Secondary IV ONE (15:35)
--- NOTE | 2018-07-13 15:40 | Nephrology Progress Note ---
Assessment/Plan Plan Doing amazingly well. To Med-Surg HD MWF. SNF tomorrow if stable. Cannot DC . No Wound Vac arranged!!! Subjective Subjective In Med-Surg. No events overnight. All noted. Alert. Objective Objective Last 24 Hour Vital Signs Date Time Temp Pulse Resp B/P (MAP) Pulse Ox O2 Delivery O2 Flow Rate FiO2 07/13/18 12:00 97.2 76 17 110/90 (97) 97 07/13/18 08:23 Nasal Cannula 3.0 Nasal Cannula 3.0 07/13/18 08:00 97.3 84 19 154/86 (108) 97 07/13/18 07:15 Nasal Cannula 3.0 32 07/13/18 07:15 99 Nasal Cannula 3.0 32 07/13/18 04:00 97.2 72 20 119/79 (92) 100 07/13/18 00:00 97.3 84 20 143/77 (99) 100 07/12/18 21:00 Nasal Cannula 3.0 Nasal Cannula 3.0 07/12/18 20:00 97.3 77 20 146/72 (96) 100 07/12/18 16:00 98.0 81 20 131/68 (89) 98 Intake and Output 07/12/18 07/13/18 19:00 07:00 Intake Total 360 ml 250 ml Balance 360 ml 250 ml Intake Oral 250 ml IV Total 360 ml # Voids 5 2 # Bowel Movements 1 2 Laboratory Tests 07/13/18 08:25: Arterial Blood pH 7.328L, Arterial Blood Partial Pressure CO2 58.8*H, Arterial Blood Partial Pressure O2 141.6H, Arterial Blood HCO3 30.2H, Arterial Blood Oxygen Saturation 98.5, Arterial Blood Base Excess 3.3H, Nicola Test Positive Height (Feet): 5 Height (Inches): 6.00 Weight (Pounds): 242 Objective Blind Cv RR Lungs more air movement L Lung. Abd SNT. BS + E Rt AKA stump clean. Lt. heel ulcer. Alert. Brenda Fuller MD Jul 13, 2018 15:40
--- NOTE | 2018-07-13 15:43 | NUR ---
NURSE NOTES:WOUND CARE FOLLOW-UP NOTES:NPWT changed today.No exudate noted in canister. Granulofoam packing removed .Wound bed moist -viable.edges adherent to base of wound (L)3.8cm x (W) 4cm x (D)0.7cm .Wound cleansed with Saline. Cavilon Skin barrier applied to borders and periwound.Transparent drsg applied periwound to dorsal aspect of L foot Granulofoam packing cut to size of wound then bridged over transparent drsg to dorsal aspect of foot. Vac placed on dorsal aspect of L foot .NPWT resumed at 125mm/Hg to continuous suction as ordered.Pt tolerated procedure without complaints of pain or discomfort.
[2018-07-13 16:00] VITALS: BP 136/62
--- NOTE | 2018-07-13 17:26 | Cardiology Progress Note ---
Assessment/Plan Assessment/Plan BP was elevated earlier, probably is due to inaccurate measurument (on her wrist ). She is stable Subjective Subjective The patient is resting, she is interactive, no new compalints Objective Last 24 Hour Vital Signs Date Time Temp Pulse Resp B/P (MAP) Pulse Ox O2 Delivery O2 Flow Rate FiO2 07/13/18 16:00 97.9 80 20 136/62 (86) 99 07/13/18 12:00 97.2 76 17 110/90 (97) 97 07/13/18 08:23 Nasal Cannula 3.0 Nasal Cannula 3.0 07/13/18 08:00 97.3 84 19 154/86 (108) 97 07/13/18 07:15 Nasal Cannula 3.0 32 07/13/18 07:15 99 Nasal Cannula 3.0 32 07/13/18 04:00 97.2 72 20 119/79 (92) 100 07/13/18 00:00 97.3 84 20 143/77 (99) 100 07/12/18 21:00 Nasal Cannula 3.0 Nasal Cannula 3.0 07/12/18 20:00 97.3 77 20 146/72 (96) 100 General Appearance: agitated EENT: other Neck: JVD Rhythm: NSR Cardiovascular: normal rate Respiratory/Chest: crackles/rales Abdomen: distended Extremities: other Intake and Output 07/12/18 07/13/18 19:00 07:00 Intake Total 360 ml 250 ml Balance 360 ml 250 ml Intake Oral 250 ml IV Total 360 ml # Voids 5 2 # Bowel Movements 1 2 Laboratory Tests Test 07/13/18 08:25 Arterial Blood pH 7.328 (7.350-7.450) Arterial Blood Partial Pressure CO2 58.8 mmHg (35.0-45.0) *H Arterial Blood Partial Pressure O2 141.6 mmHg (75.0-100.0) H Arterial Blood HCO3 30.2 mmol/L (22.0-26.0) H Arterial Blood Oxygen Saturation 98.5 % (95-100) Arterial Blood Base Excess 3.3 (-2-2) H Nicola Test Positive Clarisse Daley MD Jul 13, 2018 17:26
--- NOTE | 2018-07-13 17:46 | NUR ---
NURSE NOTES: 1746: Called [facility] for ordered dialysis 07/14/2018 6a-6p
--- NOTE | 2018-07-13 19:51 | NUR ---
HAND-OFF: Report given to CHAPIS Doe.
--- NOTE | 2018-07-13 19:52 | NUR ---
NURSE NOTES: Received patient in no apparent distress. A&OX4. NC 2L is on, no s/s of respiratory distress noted. IV site patent and intact. AV shunt noted on right arm, bruit and thrill present. Wound vac is on left heel, continuous, 125mmhg, no drainage noted. Bed in lowest position. Call light within reach. Will continue to monitor.
[2018-07-13 20:00] VITALS: BP 139/69
--- NOTE | 2018-07-13 20:01 | NUR ---
NURSE NOTES: Photo of left heel wound taken by Elizabeth wound care nurse, uploaded to system.
[2018-07-13] MEDS: Dyna-Hex 2% Top Sol 2oz TOPIC SCH (20:46)
[2018-07-14] VITALS: BP 141/65
[2018-07-14 04:00] VITALS: BP 118/60
[2018-07-14] MEDS ORDERED: Heparin Sod 1000 units/ml 10ml IV PRN (06:00)
[2018-07-14] MEDS: NovoLOG Insulin Flexpen SUBQ SCH ×3 (06:30→16:30)
--- NOTE | 2018-07-14 07:16 | NUR ---
HAND-OFF: Report given to Fely NATION.
--- NOTE | 2018-07-14 07:17 | NUR ---
HAND-OFF: Report received from CHAPIS Doe. Pt in bed, alseep, respirations unlabored, call light within reach, bed in lowest position.
[2018-07-14] MEDS: Dextrose 10%/.45 SOD CHL 1,000 ML IV SCH (07:26)
[2018-07-14 08:00] VITALS: BP 128/57
--- NOTE | 2018-07-14 08:57 | Nephrology Progress Note ---
Assessment/Plan Plan Doing amazingly well. To Med-Surg HD MWF. SNF today. Wound Vac arranged!!! Subjective Subjective In Med-Surg. No events overnight. All noted. Alert. Objective Objective Last 24 Hour Vital Signs Date Time Temp Pulse Resp B/P (MAP) Pulse Ox O2 Delivery O2 Flow Rate FiO2 07/14/18 04:00 97.7 87 18 118/60 (79) 100 07/14/18 00:00 98.6 80 18 141/65 (90) 100 07/13/18 21:00 Nasal Cannula 2.0 Nasal Cannula 2.0 07/13/18 20:00 97.7 82 20 139/69 (92) 98 07/13/18 16:00 97.9 80 20 136/62 (86) 99 07/13/18 12:00 97.2 76 17 110/90 (97) 97 Intake and Output 07/13/18 07/14/18 19:00 07:00 Intake Total 800 ml Balance 800 ml Intake Oral 800 ml # Voids 4 # Bowel Movements 3 2 Height (Feet): 5 Height (Inches): 6.00 Weight (Pounds): 244 Objective Blind Cv RR Lungs more air movement L Lung. Abd SNT. BS + E Rt AKA stump clean. Lt. heel ulcer. Alert. Brenda Fuller MD Jul 14, 2018 08:57
[2018-07-14] MEDS ORDERED: ACETAMINOPHEN500 MG ORAL (09:00)
[2018-07-14] MEDS ORDERED: ASPIRIN81 MG ORAL (09:00)
[2018-07-14] MEDS ORDERED: D50w IV (09:00)
[2018-07-14] MEDS ORDERED: Loperamide 2mg cap ORAL PRN (09:00)
[2018-07-14] MEDS ORDERED: PROTONIX40 MG ORAL (09:00)
[2018-07-14] MEDS ORDERED: Collagenase TOPIC (09:00)
[2018-07-14] MEDS: Aspirin Baby 81mg ORAL SCH (09:40)
[2018-07-14 10:26] LABS: BASOPHILS % (AUTO) 0.7 % (0.0-2.0); EOSINOPHILS % (AUTO) 4.8 % (0.0-3.0); HEMATOCRIT 28.4 % (37.0-47.0); HEMOGLOBIN 8.1 G/DL (12.0-16.0); LYMPHOCYTES % (AUTO) 25.9 % (20.0-45.0); MEAN CORPUSCULAR VOLUME 91 FL (80-99); MONOCYTES % (AUTO) 9.5 % (1.0-10.0); NEUTROPHILS % (AUTO) 59.2 % (45.0-75.0); PLATELET COUNT 111 K/UL (150-450); RED BLOOD COUNT 3.11 M/UL (4.20-5.40); RED CELL DISTRIBUTION WIDTH 14.8 % (11.6-14.8); WHITE BLOOD COUNT 3.7 K/UL (4.8-10.8)
--- NOTE | 2018-07-14 10:30 | NUR ---
DISCHARGE PLANNED PATIENT DISCHARGE BACK TO: [facility] ROOM# [id number] SKILLED T:[phone] FOR NURSE TO NURSE REPORT [facility] HAS BEEN ARRANGED FOR JACKER FEEDER AT 1786. [id number]
[2018-07-14 10:40] LABS: ALANINE AMINOTRANSFERASE 8 U/L (12-78); ALBUMIN 1.8 G/DL (3.4-5.0); ALBUMIN/GLOBULIN RATIO 0.4 (1.0-2.7); ALKALINE PHOSPHATASE 133 U/L (46-116); ANION GAP 6 mmol/L (5-15); ASPARTATE AMINO TRANSFERASE 12 U/L (15-37); BILIRUBIN,TOTAL 0.3 MG/DL (0.2-1.0); BLOOD UREA NITROGEN 42 mg/dL (7-18); CALCIUM 8.4 MG/DL (8.5-10.1); CARBON DIOXIDE 31 MMOL/L (21-32); CHLORIDE 100 MMOL/L (98-107); CREATININE 4.4 MG/DL (0.55-1.30); SODIUM 137 MMOL/L (136-145)
--- NOTE | 2018-07-14 11:19 | NUR ---
NURSE NOTES: 1100: Called Dr. Fuller regarding discharge of pt, Dr. 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 Other nursing orders entered regarding keeping PICC at DC and VRE colonization. Notified Dar Boo. 1119: Left message for Dr. Neil regarding abx orders at DC. according to last note on 07/12 pt is to have 4 more doses of levoquin PO and 14 more doses of meropenem. Want to clarify with .
[2018-07-14 12:00] VITALS: BP 134/59
[2018-07-14] MEDS: Meropenem 500 MG in NS 55 ML IVPB SCH (14:18)
--- NOTE | 2018-07-14 14:30 | Critical Care Progress Note ---
Assessment/Plan Assessment/Plan IMPRESSION: 1. Respiratory failure, acute. 2. Evidence of hypercapnia. 3. Evidence of metabolic acidosis. 4. Evidence of pleural effusion. s/p tap x2 5. End-stage renal disease. 6. Elevated troponin. 7. Possible demand ischemia. 8. Severe protein-calorie malnutrition. 9. Hyponatremia. 10. Hyperkalemia. 11. Anemia. 12. Thrombocytopenia. 13. Mild coagulopathy. 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 15. mucous plugging s/p bronch PLAN monitor acid base CPT may need repeat tap respiratory care monitor fluid for change ABG noted close follow up follow up cxr today need to keep negative as able medications/laboratory data/nursing notes reviewed in detail note reviewed and edited care discussed with RN and RT Critical Care - Subjective Interval Events: care noted hypoxemic off oxygen labs noted d/w RN ROS Limited/Unobtainable: Yes Condition: stable EKG Rhythm: Sinus Rhythm I&O: Intake and Output 07/13/18 07/14/18 19:00 07:00 Intake Total 800 ml Balance 800 ml Intake Oral 800 ml # Voids 4 # Bowel Movements 3 2 Critical Care - Objective ET-Tube: 7.5 ET Position: 23 Last 24 Hour Vital Signs Date Time Temp Pulse Resp B/P (MAP) Pulse Ox O2 Delivery O2 Flow Rate FiO2 07/14/18 12:00 97.7 80 20 134/59 (84) 100 07/14/18 09:56 99 Nasal Cannula 3.0 32 07/14/18 09:56 Nasal Cannula 3.0 32 07/14/18 09:00 Nasal Cannula 3.0 Nasal Cannula 3.0 07/14/18 08:00 97.5 77 20 128/57 (80) 93 07/14/18 04:00 97.7 87 18 118/60 (79) 100 07/14/18 00:00 98.6 80 18 141/65 (90) 100 07/13/18 21:00 Nasal Cannula 2.0 Nasal Cannula 2.0 07/13/18 20:00 97.7 82 20 139/69 (92) 98 07/13/18 16:00 97.9 80 20 136/62 (86) 99 Labs: Labs Test 07/12/18 05:20 07/13/18 08:25 07/14/18 10:00 12/21/18 10:55 White Blood Count 3.7 K/UL (4.8-10.8) 3.7 K/UL (4.8-10.8) Red Blood Count 3.06 M/UL (4.20-5.40) 3.11 M/UL (4.20-5.40) Hemoglobin 8.2 G/DL (12.0-16.0) 8.1 G/DL (12.0-16.0) Hematocrit 28.1 % (37.0-47.0) 28.4 % (37.0-47.0) Mean Corpuscular Volume 92 FL (80-99) 91 FL (80-99) Mean Corpuscular Hemoglobin 27.0 PG (27.0-31.0) 26.2 PG (27.0-31.0) Mean Corpuscular Hemoglobin Concent 29.3 G/DL (32.0-36.0) 28.7 G/DL (32.0-36.0) Red Cell Distribution Width 15.0 % (11.6-14.8) 14.8 % (11.6-14.8) Platelet Count 133 K/UL (150-450) 111 K/UL (150-450) Mean Platelet Volume 8.9 FL (6.5-10.1) 9.0 FL (6.5-10.1) Neutrophils (%) (Auto) 55.5 % (45.0-75.0) 59.2 % (45.0-75.0) Lymphocytes (%) (Auto) 26.9 % (20.0-45.0) 25.9 % (20.0-45.0) Monocytes (%) (Auto) 11.4 % (1.0-10.0) 9.5 % (1.0-10.0) Eosinophils (%) (Auto) 5.3 % (0.0-3.0) 4.8 % (0.0-3.0) Basophils (%) (Auto) 1.0 % (0.0-2.0) 0.7 % (0.0-2.0) Sodium Level 134 MMOL/L (136-145) 137 MMOL/L (136-145) Potassium Level 3.6 MMOL/L (3.5-5.1) 4.0 MMOL/L (3.5-5.1) Chloride Level 99 MMOL/L (98-107) 100 MMOL/L (98-107) Carbon Dioxide Level 31 MMOL/L (21-32) 31 MMOL/L (21-32) Anion Gap 4 mmol/L (5-15) 6 mmol/L (5-15) Blood Urea Nitrogen 36 mg/dL (7-18) 42 mg/dL (7-18) Creatinine 4.2 MG/DL (0.55-1.30) 4.4 MG/DL (0.55-1.30) Estimat Glomerular Filtration Rate 12.7 mL/min (>60) 12.0 mL/min (>60) Glucose Level 77 MG/DL (74-106) 91 MG/DL (74-106) Calcium Level 8.5 MG/DL (8.5-10.1) 8.4 MG/DL (8.5-10.1) Phosphorus Level 3.4 MG/DL (2.5-4.9) 3.0 MG/DL (2.5-4.9) Total Bilirubin 0.3 MG/DL (0.2-1.0) 0.3 MG/DL (0.2-1.0) Aspartate Amino Transf (AST/SGOT) 9 U/L (15-37) 12 U/L (15-37) Alanine Aminotransferase (ALT/SGPT) < 6 U/L (12-78) 8 U/L (12-78) Alkaline Phosphatase 113 U/L (46-116) 133 U/L (46-116) Total Protein 6.9 G/DL (6.4-8.2) 6.4 G/DL (6.4-8.2) Albumin 1.7 G/DL (3.4-5.0) 1.8 G/DL (3.4-5.0) Globulin 5.2 g/dL 4.6 g/dL Albumin/Globulin Ratio 0.3 (1.0-2.7) 0.4 (1.0-2.7) Arterial Blood pH 7.328 (7.350-7.450) 7.380 (7.350-7.450) Arterial Blood Partial Pressure CO2 58.8 mmHg (35.0-45.0) 51.3 mmHg (35.0-45.0) Arterial Blood Partial Pressure O2 141.6 mmHg (75.0-100.0) 31.4 mmHg (75.0-100.0) Arterial Blood HCO3 30.2 mmol/L (22.0-26.0) 29.7 mmol/L (22.0-26.0) Arterial Blood Oxygen Saturation 98.5 % (95-100) Arterial Blood Base Excess 3.3 (-2-2) 3.9 (-2-2) Nicola Test Positive Positive Objective: GENERAL: A well-developed female chronically ill. on NC HEENT: Overall negative. NECK: Supple. No jugular venous distention. LUNGS: Reduced breath sounds. no rhonchi or wheeze; stable; same CARDIAC: Normal S1 and S2. Regular rate and rhythm. without MRG ABDOMEN: Soft, nontender, and nondistended. no HSM; OGT out EXTREMITIES: No cyanosis or clubbing. The patient has a right above knee stump, left heel with ulcers. NEUROLOGIC: weak overall reviewed and edited Micro: Microbiology Date/Time Source Procedure Growth Status 07/13/18 17:14 Stool Clostridium difficile Toxin Assay - Final Complete Accucheck: 87 Gustavo Rolon MD Jul 14, 2018 14:30
--- NOTE | 2018-07-14 15:25 | NUR ---
NURSE NOTES: 1525: Left second message for Dr. Neil regarding DC Abx Rx
[2018-07-14] MEDS ORDERED: MEROPENEM-500 MG/50 IVPB (15:33)
[2018-07-14] MEDS ORDERED: LEVOFLOXACIN250 MG ORAL (15:41)
--- NOTE | 2018-07-14 16:50 | NUR ---
NURSE NOTES: 1649: Pt refused blood sugar check. I asked her twice and had Nicol RN as to do it twice as well, pt refused all request. Explained risks and benefits
--- NOTE | 2018-07-14 19:26 | NUR ---
HAND-OFF: Report given to CHAPIS Huston.
--- NOTE | 2018-07-14 19:26 | NUR ---
NURSE NOTES: Report called to [facility], spoke to CHAPIS Perez
--- NOTE | 2018-07-14 19:30 | NUR ---
NURSE NOTES: Received patient in no apparent distress. A&OX4. NC 2L is on, no s/s of respiratory distress noted. IV site patent and intact. AV shunt noted on right arm, bruit and thrill present. Wet to dry dressing noted on left heel, intact. Patient is waiting for discharge. Bed in lowest position. Call light within reach. Will continue to monitor.
[2018-07-14 20:00] VITALS: BP 127/69
[2018-07-14] MEDS: Dyna-Hex 2% Top Sol 2oz TOPIC SCH (20:01)
[2018-07-14] MEDS: Epogen (for ESRD on dialysis) SUBQ SCH (20:01)
[2018-07-14] MEDS ORDERED: Tubing IV Secondary IV ONE (20:34)
--- NOTE | 2018-07-14 20:35 | NUR ---
NURSE NOTES: Patient discharged to [facility] by [facility] staff. Belonging were sent with patient. Keep midline for continue antibiotic treatment. ID band removed. VS stable.
--- NOTE | 2018-07-14 22:31 | Cardiology Progress Note ---
Assessment/Plan Assessment/Plan The patient is stable Subjective Subjective The patient is resting, she is interactive, no new complaints Objective Last 24 Hour Vital Signs Date Time Temp Pulse Resp B/P (MAP) Pulse Ox O2 Delivery O2 Flow Rate FiO2 07/14/18 20:22 98 Nasal Cannula 3.0 32 07/14/18 20:22 Nasal Cannula 3.0 32 07/14/18 20:00 97.3 81 20 127/69 (88) 98 07/14/18 12:00 97.7 80 20 134/59 (84) 100 07/14/18 09:56 99 Nasal Cannula 3.0 32 07/14/18 09:56 Nasal Cannula 3.0 32 07/14/18 09:00 Nasal Cannula 3.0 Nasal Cannula 3.0 07/14/18 08:00 97.5 77 20 128/57 (80) 93 07/14/18 04:00 97.7 87 18 118/60 (79) 100 07/14/18 00:00 98.6 80 18 141/65 (90) 100 General Appearance: no apparent distress EENT: other Neck: JVD Rhythm: NSR Cardiovascular: normal rate Respiratory/Chest: rhonchi - bilaterally Abdomen: distended Extremities: other Neurologic: ice scraper II-XII 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 Intake and Output 07/13/18 07/14/18 19:00 07:00 Intake Total 800 ml Balance 800 ml Intake Oral 800 ml # Voids 4 # Bowel Movements 3 2 Laboratory Tests Test 07/14/18 10:00 07/14/18 10:55 White Blood Count 3.7 K/UL (4.8-10.8) L Red Blood Count 3.11 M/UL (4.20-5.40) L Hemoglobin 8.1 G/DL (12.0-16.0) L Hematocrit 28.4 % (37.0-47.0) L Mean Corpuscular Volume 91 FL (80-99) Mean Corpuscular Hemoglobin 26.2 PG (27.0-31.0) L Mean Corpuscular Hemoglobin Concent 28.7 G/DL (32.0-36.0) L Red Cell Distribution Width 14.8 % (11.6-14.8) Platelet Count 111 K/UL (150-450) L Mean Platelet Volume 9.0 FL (6.5-10.1) Neutrophils (%) (Auto) 59.2 % (45.0-75.0) Lymphocytes (%) (Auto) 25.9 % (20.0-45.0) Monocytes (%) (Auto) 9.5 % (1.0-10.0) Eosinophils (%) (Auto) 4.8 % (0.0-3.0) H Basophils (%) (Auto) 0.7 % (0.0-2.0) Sodium Level 137 MMOL/L (136-145) Potassium Level 4.0 MMOL/L (3.5-5.1) Chloride Level 100 MMOL/L (98-107) Carbon Dioxide Level 31 MMOL/L (21-32) Anion Gap 6 mmol/L (5-15) Blood Urea Nitrogen 42 mg/dL (7-18) H Creatinine 4.4 MG/DL (0.55-1.30) H Estimat Glomerular Filtration Rate 12.0 mL/min (>60) Glucose Level 91 MG/DL (74-106) Calcium Level 8.4 MG/DL (8.5-10.1) L Phosphorus Level 3.0 MG/DL (2.5-4.9) Total Bilirubin 0.3 MG/DL (0.2-1.0) Aspartate Amino Transf (AST/SGOT) 12 U/L (15-37) L Alanine Aminotransferase (ALT/SGPT) 8 U/L (12-78) L Alkaline Phosphatase 133 U/L (46-116) H Total Protein 6.4 G/DL (6.4-8.2) Albumin 1.8 G/DL (3.4-5.0) L Globulin 4.6 g/dL Albumin/Globulin Ratio 0.4 (1.0-2.7) L Arterial Blood pH 7.380 (7.350-7.450) Arterial Blood Partial Pressure CO2 51.3 mmHg (35.0-45.0) H Arterial Blood Partial Pressure O2 31.4 mmHg (75.0-100.0) Arterial Blood HCO3 29.7 mmol/L (22.0-26.0) H Arterial Blood Oxygen Saturation Pending Arterial Blood Base Excess 3.9 (-2-2) H Nicola Test Positive Microbiology Date/Time Source Procedure Growth Status 07/13/18 17:14 Stool Clostridium difficile Toxin Assay - Final Complete Clarisse Daley MD Jul 14, 2018 22:31
--- NOTE | 2018-07-15 01:17 | General Progress Note ---
Assessment/Plan Problem List: (1) Encephalopathy acute ICD Codes: G93.40 - Encephalopathy, unspecified SNOMED: 23561868, [id number] Assessment/Plan the pt lacks capacity to refuse medications the pt lacks capacity to leave ama haldol prn soft restraints as needed ativan prn Subjective Date patient seen: Jul 14, 2018 Neurologic/Psychiatric: Reports: anxiety, depressed Allergies: Coded Allergies: BENAZEPRIL (Verified Allergy, Unknown, 06/12/18) CODEINE (Verified Allergy, Unknown, 06/12/18) INSULIN ASPART (Verified Allergy, Unknown, 06/12/18) INSULIN DETEMIR (Verified Allergy, Unknown, 06/12/18) OPIOIDS - MORPHINE ANALOGUES (Verified Allergy, Unknown, 06/12/18) Subjective the pt is alert the same Objective Last 24 Hour Vital Signs Date Time Temp Pulse Resp B/P (MAP) Pulse Ox O2 Delivery O2 Flow Rate FiO2 07/14/18 20:22 98 Nasal Cannula 3.0 32 07/14/18 20:22 Nasal Cannula 3.0 32 07/14/18 20:00 97.3 81 20 127/69 (88) 98 07/14/18 12:00 97.7 80 20 134/59 (84) 100 07/14/18 09:56 99 Nasal Cannula 3.0 32 07/14/18 09:56 Nasal Cannula 3.0 32 07/14/18 09:00 Nasal Cannula 3.0 Nasal Cannula 3.0 07/14/18 08:00 97.5 77 20 128/57 (80) 93 07/14/18 04:00 97.7 87 18 118/60 (79) 100 Intake and Output 07/14/18 07/15/18 19:00 07:00 Intake Total 720 ml Balance 720 ml Intake Oral 720 ml # Bowel Movements 2 Laboratory Tests 07/14/18 10:00: White Blood Count 3.7L, Red Blood Count 3.11L, Hemoglobin 8.1L, Hematocrit 28.4L , Mean Corpuscular Volume 91, Mean Corpuscular Hemoglobin 26.2L, Mean Corpuscular Hemoglobin Concent 28.7L, Red Cell Distribution Width 14.8, Platelet Count 111L, Mean Platelet Volume 9.0, Neutrophils (%) (Auto) 59.2, Lymphocytes (%) (Auto) 25.9, Monocytes (%) (Auto) 9.5, Eosinophils (%) (Auto) 4.8H, Basophils (%) (Auto) 0.7, Sodium Level 137, Potassium Level 4.0, Chloride Level 100, Carbon Dioxide Level 31, Anion Gap 6, Blood Urea Nitrogen 42H, Creatinine 4.4H, Estimat Glomerular Filtration Rate 12.0, Glucose Level 91, Calcium Level 8.4L, Phosphorus Level 3.0, Total Bilirubin 0.3, Aspartate Amino Transf (AST/SGOT) 12L, Alanine Aminotransferase (ALT/SGPT) 8L, Alkaline Phosphatase 133H, Total Protein 6.4, Albumin 1.8L, Globulin 4.6, Albumin/ Globulin Ratio 0.4L 07/14/18 10:55: Arterial Blood pH 7.380, Arterial Blood Partial Pressure CO2 51.3H, Arterial Blood Partial Pressure O2 31.4*L, Arterial Blood HCO3 29.7H, Arterial Blood Oxygen Saturation [Pending], Arterial Blood Base Excess 3.9H, Nicola Test Positive Height (Feet): 5 Height (Inches): 6.00 Weight (Pounds): 244 General Appearance: no apparent distress, alert, agitated Abelardo Yadav MD Jul 15, 2018 01:17
--- NOTE | 2018-07-16 13:29 | Discharge Summary ---
Discharge Summary Discharge Summary _ DATE OF ADMISSION: 06/13/2018 DATE OF DISCHARGE: 07/14/2018 DISCHARGED BY: Dr. Fuller REASON FOR ADMISSION: 72 years old female with past medical history of end-stage renal disease due to diabetic nephropathy, severe peripheral vascular disease, status post right above-knee amputation, blindness due to diabetic retinopathy, anemia of chronic kidney disease, hypertensive cardiovascular disease, ischemic heart disease, left fourth toe gangrene, left heel ulcer, history of end-stage renal disease, on hemodialysis every Tuesday and Tuesday, was sent for evaluation due to altered mental status. Upon evaluation blood pressure was low 94/65. Patient required d placement of supplemental oxygen via nasal cannula . t Patient was found to have elevated troponin 2.314 EKG revealed sinus rhythm , no acute ischemic changes. BUN 30, creatinine 3.7,. Stable electrolytes and LFT. Albumin 2.0. Mild leukocytosis with WBC 12.2. Hemoglobin 11.2, hematocrit 24.9. Chest x-ray revealed bilateral pleural effusion. Patient admitted with diagnoses of non-STEMI, altered mental status, end-stage renal disease due to diabetic nephropathy, severe peripheral vascular disease, status post right above-knee amputation, blindness due to diabetic retinopathy, anemia of chronic kidney disease, hypertensive cardiovascular disease, ischemic heart disease, left foot toe gangrene, left heel ulcer. CONSULTANTS: supervisor sewing room Dr. Daley pulmonary Dr. Rolon ID specialist Dr. Cain general surgery Dr. Luis vascular surgeon Dr. Aburto psychiatrist chemical process project engineer [facility] COURSE: Serial troponin and EKG were ordered. Cardiology consult requested. Dairy Husbandry Worker seen and evaluated patient. Per cardiology patient had congestive heart failure acute on chronic symptomatic with pleural effusion with evidence of heart failure on chest x- ray and clinically with orthopnea. Patient started on anticoagulation with Lovenox. Statin was added to medical therapy. Antiplatelet therapy with Aspirin continued. Echocardiogram revealed ejection fraction of 60%. No wall motion abnormality. No evidence of pericardial effusion. Left posterior pleural effusion. Mild left ventricular hypertrophy. Elevated left atrial pressure grade 2. Moderate mitral and tricuspid regurgitation. Right ventricular pressure of 45 consistent with moderate pulmonary hypertension Troponin was trending down from initial 2.314 down to 0.18 on . Patient was not a candidate for mitral valve replacement due to her overall condition. Patient became severely hypotensive 06/16 , was septic and lethargic and required placement of central line by ED physician for pressors. Hemodynamic status was closely monitored with goal to keep mean arterial blood pressure about 60. Patient was on dopamine drip, had difficulties to wean off pressors. CT scan of chest, abdomen and pelvis revealed anasarca with bilateral pleural effusion, ascites and complete atelectasis of the left lung , large right pleural effusion Quality Assurance Supervisor Body followed. Patient undergone ultrasound guided thoracentesis of left pleural effusion on 06/30 , yielding 400 ml of pleural fluid. CXR revealed reexpansion of a small portion of previously completely atelectatic left lung, but incomplete evacuation of pleural fluid; pleural fluid was possibly loculated. Patient subsequently undergone bronchoscopy on 07/01 due to persistent left lung collapse , which revealed mucus plug. Upon suctioning the secretions appeared to be fairly thick and difficult to remove. During the procedure patient began to desaturate, and rest of the procedure was aborted. Reduced heart rate and hypotension was noted . Patient received epinephrine, with improvement in heart rate, but mental status did not improve. Patient subsequently was intubated due to ongoing hypoxemia. Ventilator support and pulmonary toilet provided. Patient was followed up with ABGs and CXR. Patient subsequently was successfully extubated on 07/05. Supplemental oxygen provided as needed to keep pulse oximetry above 92%. Pulmonary toilet was provided with a hand held nebulizer and chest physical therapy. CXR 07/06 revealed complete opacification of left hemithorax, likely due to combination of complete atelectasis of the left lung and large left pleural effusion. Patient subsequently undergone another ultrasound guided thoracentesis of left pleural effusion , yielding 1300 ml of fluid. CXR post procedures revealed complete resolution, no pneumothorax. Prior to discharge pulse oximetry stable on oxygen via nasal cannula, no signs fo respiratory distress. Consulting Services Project Manager followed for left heel ulcer. Left ankle MRI confirmed chronic osteomyelitis. Wound vacuum therapy was provided along with antibiotics. Wound vacuum therapy to be continued at the group home facility with dressing change Tuesday and . General surgeon followed for left heel wound, which appeared to be chronic and seemed to be healing. Surgeon personally reviewed MRI. Wound was examined, and no active infection was noted. Patient had no leukocytosis, no shift, afebrile ,blood cultures were negative. Patient with history of chronic osteomyelitis , status post prior IV antibiotics. Good distal capillary refill on physical exam. Per surgeon no acute surgical intervention was required at this time. Surgeon recommended to continue antibiotics and local wound care as per podiatry Vascular surgeon seen and evaluated the patient. Per vascular surgeon, patient had a calcific peripheral arterial disease with metallic hardware infection /osteomyelitis and right leg amputation. Vascular surgeon did not recommend amputation ; given high risk for any invasive procedures. Vascular surgeon recommended medical optimization : continue with antibiotics and wound vacuum therapy . ID specialist closely followed . Antibiotic regimen provided as per ID specialist. Stool for C. difficile was negative. Blood culture were negative. Pleural fluid culture was negative. Sputum culture revealed Stenotrophomonas. Wound culture was positive for Pseudomonas Morganella and Strep group B. Patient will need to continue antibiotics at the group home facility to complete the course, as per infectious disease specialist recommendation. Abdominal ultrasound revealed gallbladder sludge and questionable stones. Echogenic kidneys with medical renal disease. Dialysis provided as per alumina refinery operator ordered with close monitoring of volumes renal parameters and electrolytes. Electrolytes corrected as needed. Blood sugar was closely monitored and managed with sliding scale of insulin as needed. Hemoglobin hematocrit were closely monitored with goal to keep hemoglobin above 7. Patient was on Epogen. Patient had anemia of chronic kidney disease. Prior to discharge hemoglobin 8.1 hematocrit 28.4, platelet count 111. Manager Fast Food recommendation implemented in plan of care to improve nutritional status. Bowel regimen instituted. DVT and GI prophayxlis provided. Supportive care provided. Psychiatrist followed. Psychiatric medication regimen was optimized. Patient stabilized and was ready for transfer to group home facility for continuation of care FINAL DIAGNOSES: Acute hypoxemic respiratory failure ,requiring intubation Non-STEMI , possible demand related Acute encephalopathy Sepsis with shock Large persistent left lung collapse Large left pleural effusion S/p thoracentesis x2 S/p bronchoscopy due to large persistent left lung collapse Mucus plug Hypercapnia Metabolic acidosis End-stage renal disease (on hemodialysis) due to diabetic nephropathy Diabetes mellitus type 2 with diabetic nephropathy , retinopathy and severe PVD Calcaneal left osteomyelitis with group B streptococci, Pseudomonas, Morganella Pneumonia with Stenotrophomonas Left heel diabetic un-stageable pressure ulcer Severe peripheral vascular disease Status post right above-knee amputation Hypertensive cardiovascular disease Severe mitral regurgitation 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 DISCHARGE INSTRUCTIONS: Patient was discharged to the group home facility. Follow up with medical doctor at the facility. I have been assigned to dictate discharge summary for this account. I was not involved in the patient's management. Lorraine Persaud NP Jul 16, 2018 13:29
--- NOTE | 2018-07-16 20:07 | Physician Query ---
--------- THIS DOCUMENT IS A PERMANENT PART OF THE MEDICAL RECORD --------- PLEASE COMPLETE DOCUMENT BEFORE SIGNING Dear Dr. Cris DOTY Date: _07/16/18 Aircraft Shipping Checker/CDS Name: [facility] Exercise your independent professional judgment when responding to the query. Questions asked do not imply a particular answer is desired or expected. We greatly appreciate your clarification on this issue. CLINICAL DOCUMENTATION STATES: PER YOUR BRONCHOSCOPY REPORT: Upon proceeding with a bronchoscopy, the patient's airway appeared to have some mild bleeding. The patient's vocal cords were evaluated and appeared to be within normal. The patient's tracheobronchial airway were examined and noted to be full of secretions to the left side. However, upon suctioning the secretions appeared to be fairly thick and difficult to remove. FOR CODING ACCURACY, PLEASE CLARIFY THE SITES SUCTIONED: * * LUNG, BILATERAL PHYSICIAN SIGNATURE DATE MTDD
== END 2018-07-14 20:35 | DRG 981 ==
LOC: EDBD 23:45 → EMR 23:58 → 2E 06-13 01:43 → EDBEDREQ 06-13 02:56 → ICU 06-16 01:43 → 2W 06-26 22:35 → ICU 06-28 18:35 → 2W 07-08 09:00 → 4E 07-11 00:40
PROC: 5A1D70Z Performance of Urinary Filtration, Intermittent, Less than 6 Hours Per Day (ICD-10-PCS; principal; 2018-06-13)
PROC: 06HM33Z Insertion of Infusion Device into Right Femoral Vein, Percutaneous Approach (ICD-10-PCS; 2018-06-16)
PROC: 02HV33Z Insertion of Infusion Device into Superior Vena Cava, Percutaneous Approach (ICD-10-PCS; 2018-06-20)
PROC: B548ZZA Ultrasonography of Superior Vena Cava, Guidance (ICD-10-PCS; 2018-06-20)
PROC: 0W9B3ZZ Drainage of Left Pleural Cavity, Percutaneous Approach (ICD-10-PCS; 2018-06-30)
PROC: 0B9M8ZZ Drainage of Bilateral Lungs, Via Natural or Artificial Opening Endoscopic (ICD-10-PCS; 2018-07-01)
PROC: 5A1955Z Respiratory Ventilation, Greater than 96 Consecutive Hours (ICD-10-PCS; 2018-07-01)
PROC: 0BH17EZ Insertion of Endotracheal Airway into Trachea, Via Natural or Artificial Opening (ICD-10-PCS; 2018-07-01)
PROC: 0W9B3ZZ Drainage of Left Pleural Cavity, Percutaneous Approach (ICD-10-PCS; 2018-07-10)
DX: I21.4 Non-ST elevation (NSTEMI) myocardial infarction (principal); N18.6 End stage renal disease; J96.01 Acute respiratory failure with hypoxia; J96.02 Acute respiratory failure with hypercapnia; A41.9 Sepsis, unspecified organism; R65.21 Severe sepsis with septic shock; E43 Unspecified severe protein-calorie malnutrition; M86.8X7 Other osteomyelitis, ankle and foot; I13.2 Hypertensive heart and chronic kidney disease with heart failure and with stage 5 chronic kidney disease, or end stage renal disease; E11.52 Type 2 diabetes mellitus with diabetic peripheral angiopathy with gangrene; I96 Gangrene, not elsewhere classified; L97.429 Non-pressure chronic ulcer of left heel and midfoot with unspecified severity; M86.672 Other chronic osteomyelitis, left ankle and foot; J90 Pleural effusion, not elsewhere classified; G93.40 Encephalopathy, unspecified; E87.1 Hypo-osmolality and hyponatremia; D68.9 Coagulation defect, unspecified; T17.890A Other foreign object in other parts of respiratory tract causing asphyxiation, initial encounter; J98.11 Atelectasis; I42.9 Cardiomyopathy, unspecified; E11.22 Type 2 diabetes mellitus with diabetic chronic kidney disease; I50.9 Heart failure, unspecified; Z99.2 Dependence on renal dialysis; E11.649 Type 2 diabetes mellitus with hypoglycemia without coma; E11.21 Type 2 diabetes mellitus with diabetic nephropathy; E11.319 Type 2 diabetes mellitus with unspecified diabetic retinopathy without macular edema; Z89.611 Acquired absence of right leg above knee; H54.3 Unqualified visual loss, both eyes; D63.1 Anemia in chronic kidney disease; E11.621 Type 2 diabetes mellitus with foot ulcer; I34.0 Nonrheumatic mitral (valve) insufficiency; Z68.39 Body mass index [BMI] 39.0-39.9, adult; E87.5 Hyperkalemia; D69.6 Thrombocytopenia, unspecified; X58.XXXA Exposure to other specified factors, initial encounter; Y92.230 Patient room in hospital as the place of occurrence of the external cause; B95.1 Streptococcus, group B, as the cause of diseases classified elsewhere
CPT/HCPCS: 31645; 36415; 36569; 36600; 71045; 71250; 74018; 74176; 76700; 76937; 76942; 80048; 80053; 80069; 80202; 82150; 82550; 82553; 82803; 82962; 83605; 83690; 83735; 84100; 84134; 84443; 84478; 84484; 85025; 85610; 85730; 87040; 87070; 87081; 87116; 87181; 87205; 87324; 88104; 89051; 93005; 93306; 94002; 94003; 94664; 94760; 96360; 96372; 99291; J0171; J1815; J2250

== ENCOUNTER 2018-07-17 18:53 | Inpatient (IN) | payer MEDICARE, OTHER ==
[~2018-07-17] VITALS: Ht 170.2 cm; Wt 86.6 kg
[~2018-07-17 18:53] MED LIST changes: +ACETAMINOPHEN500 MG ORAL; +ASPIRIN81 MG ORAL; +ATENOLOL25 MG ORAL; +COLLAGENASE1 EACH MC; +Collagenase TOPIC; +D50w IV; +LEVOFLOXACIN250 MG ORAL; +LISINOPRIL10 MG ORAL; +MEROPENEM-500 MG/50 IVPB; +MONOJECT H100 UNIT/1 SUBQ; +MULTIVITAMINS1 EAC8 ORAL; +PANTOPRAZOLE SO40 MG ORAL; +TYLENOL EXTRA500 MG ORAL; +VITAMIN C500 M1 ORAL
--- NOTE | 2018-07-17 19:05 | Emergency Room Report ---
History of Present Illness General Chief Complaint: General Complaint Source: Patient, EMS Present Illness HPI Patient is brought by EMS because she was unable to get dialysis because of low blood pressure. She has chronic renal failure. She's also being treated for some infection and has a PICC line on her left arm. She denies any pain at this time. She rarely produces urine. There is no change in her bowels recently. She is blind from diabetes. She's had a above-knee amputation on the right-hand side. She has a wound on her left inner leg. This is why she is no IV antibiotics. Patient recently discharged 07/14/18 with these d/c DX acute respiratory failure ,requiring intubation elevated troponin Non-STEMI , possible demand related acute encephalopathy hypotension septic shock large left pleural effusion s/p thoracentesis x2 large persistent left lung collapse s/p bronchoscopy due to large persistent left lung collapse mucous plug hypercapnia metabolic acidosis end-stage renal disease (on hemodialysis) due to diabetic nephropathy chronic calcaneal left osteomyelitis left heel diabetic un-stageable pressure ulcer severe peripheral vascular disease status post right above-knee amputation, diabetes mellitus type 2 with diabetic nephropathy , retinopathy and severe PVD severe mitral regurgitation history of MRSA endocarditis biventricular right and left heart failure with anasarca obesity peripheral arterial disease Allergies: Coded Allergies: BENAZEPRIL (Verified Allergy, Unknown, 06/12/18) CODEINE (Verified Allergy, Unknown, 06/12/18) INSULIN ASPART (Verified Allergy, Unknown, 06/12/18) INSULIN DETEMIR (Verified Allergy, Unknown, 06/12/18) OPIOIDS - MORPHINE ANALOGUES (Verified Allergy, Unknown, 06/12/18) Patient History Past Medical History: see triage record, old chart reviewed Past Surgical History: other - Fistula right arm, above knee amputation right leg Social History: Denies: smoking, alcohol use, drug use Social History Narrative [facility] Reviewed Nursing Documentation: PMH: Agreed; PSxH: Agreed Nursing Documentation-PMH Past Medical History: No History, Except For Hx Hypertension: Yes - anemia Hx COPD: No - anemia Hx Diabetes: Yes Hx Cancer: No Hx Gastrointestinal Problems: Yes - gerd Hx Dialysis: Yes - ESRD, MWF Hx Neurological Problems: No Review of Systems All Other Systems: negative except mentioned in HPI - though h/o encephalopathy in past Physical Exam Vital Signs Date Time Temp Pulse Resp B/P (MAP) Pulse Ox O2 Delivery O2 Flow Rate FiO2 07/17/18 18:53 97.3 69 22 113/68 99 Nasal Cannula 2.0 Sp02 EP Interpretation: reviewed, normal General Appearance: well appearing, no apparent distress, GCS 15 Head: normocephalic Eyes: right eye other - Opacity ENT: moist mucus membranes Neck: supple Respiratory: lungs clear, normal breath sounds Cardiovascular #1: regular rate, rhythm, edema - 3+ pitting L leg and left arm Cardiovascular #2: 2+ radial (L) - Thrill fistula Gastrointestinal: normal inspection, normal bowel sounds, non tender, no mass, non-distended Genitourinary: no CVA tenderness Musculoskeletal: back normal, other - Above-knee amputation right Neurologic: alert, motor strength/tone normal, oriented - X2 Skin: warm/dry, pallor, other - dressing and wound vac L posterior ankle Medical Decision Making Diagnostic Impression: Primary Impression: Pleural effusion Additional Impressions: ESRD (end stage renal disease) on dialysis Diabetic ulcer of left heel Qualified Codes: E13.621 - Other specified diabetes mellitus with foot ulcer; L97.429 - Non-pressure chronic ulcer of left heel and midfoot with unspecified severity NSTEMI (non-ST elevated myocardial infarction) UTI (urinary tract infection) Qualified Codes: N39.0 - Urinary tract infection, site not specified ER Course Patient presents with missed dialysis and hypotension. Differential includes acute myocardial infarction, GI bleed, sepsis, medication excess amongst others. We need to exclude electrolyte imbalance and congestive failure. Patient will be evaluated with EKG, chest x-ray and labs. She'll be on a cardiac rehab nurse. EKG NSR no injury. CXR bilateral large effusions Labs with normal CBC, CRF, + troponin. Elevated BNP. Pyuria. Aspirin given. Antibiotics begun. BP better with observation. Will need dialysis. Admit telemetry Dr. Fuller. Laboratory Tests Test 07/17/18 19:20 07/17/18 19:30 White Blood Count 5.3 K/UL (4.8-10.8) Red Blood Count 3.09 M/UL (4.20-5.40) L Hemoglobin 8.5 G/DL (12.0-16.0) L Hematocrit 28.2 % (37.0-47.0) L Mean Corpuscular Volume 91 FL (80-99) Mean Corpuscular Hemoglobin 27.6 PG (27.0-31.0) Mean Corpuscular Hemoglobin Concent 30.3 G/DL (32.0-36.0) L Red Cell Distribution Width 15.5 % (11.6-14.8) H Platelet Count 127 K/UL (150-450) L Mean Platelet Volume 9.1 FL (6.5-10.1) Neutrophils (%) (Auto) 71.1 % (45.0-75.0) Lymphocytes (%) (Auto) 16.3 % (20.0-45.0) L Monocytes (%) (Auto) 7.3 % (1.0-10.0) Eosinophils (%) (Auto) 4.8 % (0.0-3.0) H Basophils (%) (Auto) 0.5 % (0.0-2.0) Prothrombin Time 12.7 SEC (9.30-11.50) H Prothrombin Time INR 1.2 (0.9-1.1) H PTT 40 SEC (23-33) H Sodium Level 136 MMOL/L (136-145) Potassium Level 3.9 MMOL/L (3.5-5.1) Chloride Level 100 MMOL/L (98-107) Carbon Dioxide Level 30 MMOL/L (21-32) Anion Gap 7 mmol/L (5-15) Blood Urea Nitrogen 51 mg/dL (7-18) H Creatinine 5.0 MG/DL (0.55-1.30) H Estimate Glomerular Filtration Rate 10.3 mL/min (>60) Glucose Level 173 MG/DL (74-106) H Lactic Acid Level 1.50 mmol/L (0.4-2.0) Calcium Level 9.1 MG/DL (8.5-10.1) Total Bilirubin 0.3 MG/DL (0.2-1.0) Aspartate Amino Transferase (AST) 10 U/L (15-37) L Alanine Aminotransferase (ALT) 8 U/L (12-78) L Alkaline Phosphatase 138 U/L (46-116) H Total Creatine Kinase 21 U/L (26-308) L Troponin I 0.135 ng/mL (0.000-0.056) Pro-B-Type Natriuretic Peptide 25047 pg/mL (0-125) H Total Protein 7.7 G/DL (6.4-8.2) Albumin 2.0 G/DL (3.4-5.0) L Globulin 5.7 g/dL Albumin/Globulin Ratio 0.4 (1.0-2.7) L Urine Color Pending Urine Appearance Pending Urine pH Pending Urine Specific [place] Pending Urine Protein Pending Urine Glucose (UA) Pending Urine Ketones Pending Urine Blood Pending Urine Nitrite Pending Urine Bilirubin Pending Urine Urobilinogen Pending Urine Leukocyte Esterase Pending EKG Diagnostic Results Rate: normal Rhythm: NSR ST Segments: no acute changes - low voltage Rhythm Strip Diag. Results EP Interpretation: yes Rhythm: NSR, no PVC's, no ectopy Chest X-Ray Diagnostic Results Chest X-Ray Diagnostic Results : Chest X-Ray Ordered: Yes # of Views/Limited/Complete: 1 View Indication: Other EP Interpretation: Yes Interpretation: no pneumothorax, other - bilateral effusions Impression: Other Electronically Signed by: Electronically signed by Joaquin Day MD Last Vital Signs Date Time Temp Pulse Resp B/P (MAP) Pulse Ox O2 Delivery O2 Flow Rate FiO2 07/17/18 20:21 89 22 Nasal Cannula 2.0 07/17/18 20:20 97.3 113/68 99 Status: improved Disposition: ADMITTED INPATIENT Condition: Serious Joaquin Day MD Jul 17, 2018 19:05
--- NOTE | 2018-07-17 19:15 | NUR ---
ED Nurse Note: brought by MIKAEL from [facility] due to missed dialysis. AV shunt on right arm. on 2L via NC. every MWF. she missed the dialysis due to dialysis center did not have enough bed. AO4. NAD. VSS. Denies pain & SOB. Attached to monitor.
--- NOTE | 2018-07-17 19:30 | NUR ---
ED Nurse Note: Left upper arm picc TLC noted. Collected labs, urine, swabs; sent down to lab.
--- NOTE | 2018-07-17 19:43 | Diagnostic Imaging Report ---
EXAM: XR Chest, 1 View CLINICAL HISTORY: CP TECHNIQUE: Frontal view of the chest. COMPARISON: 07/13/2018 FINDINGS: Lungs: Retrocardiac atelectasis or consolidation. Unchanged to minimally improved hazy pulmonary attenuation and linear interstitial prominence may be senior account representative of different technique, or could represent decreasing pulmonary edema or infection. Pleural space: At least partially loculated bilateral at least moderate pleural fluid collections persist. No pneumothorax. Heart: Unremarkable. No cardiomegaly. Mediastinum: Unremarkable. Bones/joints: Unremarkable. IMPRESSION: 1. Overall similar aeration of the chest. 2. At least partially loculated bilateral at least moderate pleural fluid collections persist. 3. Retrocardiac atelectasis or consolidation. 4. Unchanged to minimally improved hazy pulmonary attenuation and linear interstitial prominence may be senior account representative of different technique, or could represent decreasing pulmonary edema or infection.
[2018-07-17 19:59] LABS: BASOPHILS % (AUTO) 0.5 % (0.0-2.0); EOSINOPHILS % (AUTO) 4.8 % (0.0-3.0); HEMATOCRIT 28.2 % (37.0-47.0); HEMOGLOBIN 8.5 G/DL (12.0-16.0); LYMPHOCYTES % (AUTO) 16.3 % (20.0-45.0); MEAN CORPUSCULAR VOLUME 91 FL (80-99); MONOCYTES % (AUTO) 7.3 % (1.0-10.0); NEUTROPHILS % (AUTO) 71.1 % (45.0-75.0); PLATELET COUNT 127 K/UL (150-450); RED BLOOD COUNT 3.09 M/UL (4.20-5.40); RED CELL DISTRIBUTION WIDTH 15.5 % (11.6-14.8); WHITE BLOOD COUNT 5.3 K/UL (4.8-10.8)
[2018-07-17 20:02] LABS: ANION GAP 7 mmol/L (5-15); BLOOD UREA NITROGEN 51 mg/dL (7-18); CALCIUM 9.1 MG/DL (8.5-10.1); CARBON DIOXIDE 30 MMOL/L (21-32); CHLORIDE 100 MMOL/L (98-107); POTASSIUM 3.9 MMOL/L (3.5-5.1); SODIUM 136 MMOL/L (136-145)
--- NOTE | 2018-07-17 20:04 | NUR ---
ED Nurse Note: Pt had bowel movement. provided bed bath.
[2018-07-17 20:07] LABS: INR 1.2 (0.9-1.1)
[2018-07-17 20:12] LABS: ALANINE AMINOTRANSFERASE 8 U/L (12-78); ALBUMIN/GLOBULIN RATIO 0.4 (1.0-2.7); ALKALINE PHOSPHATASE 138 U/L (46-116); ASPARTATE AMINO TRANSFERASE 10 U/L (15-37); BILIRUBIN,TOTAL 0.3 MG/DL (0.2-1.0); CREATINE KINASE 21 U/L (26-308)
[2018-07-17 20:20] VITALS: BP 113/68
--- NOTE | 2018-07-17 21:22 | NUR ---
ED Nurse Note: Gave telephone report to CHAPIS Barclay. Pt to be admitted to Tele 204-1.
[2018-07-17 21:30] VITALS: BP 128/65
--- NOTE | 2018-07-17 21:30 | NUR ---
TRANSFER TO FLOOR: Patient transferred to [facility] 204-2 as ordered per MD Jonny. Report given to CHAPIS Barclay. Belongings and medications given to receiving nurse. Pt AO4. NAD. VSS. Denies pain and SOB.
--- NOTE | 2018-07-17 21:30 | NUR ---
NURSE NOTES: Received report from Miguel Lanza RN From ED. Pt came with ER sriram. Pt is AO x4 and SR on ammonium sulfate operator. Cardica monitor placed on arrival. Left ankle Wound vacuum noted. Oriented to the unit. Call light is within reach. Rails up x 3 and bed alarm is on. No acute distress noted. NO pain at this moment. BP is WNL. Will call md for admission orders.
--- NOTE | 2018-07-17 21:45 | NUR ---
NURSE NOTES: Unable to take a picture of right heel diabetic ulcer because of wound vac. Will endorse the AM nurse to follow up and take pictures as soon as the wound vac is off.
[2018-07-17 21:55] LABS: BILIRUBIN, URINE NEGATIVE (NEGATIVE); COLOR,URINE BROWN; GLUCOSE, URINE (UA) NEGATIVE (NEGATIVE); KETONES,URINE 1+ (NEGATIVE); LEUKOCYTE ESTERASE ,URINE 3+ (NEGATIVE); NITRITE,URINE NEGATIVE (NEGATIVE); PH,URINE 7 (4.5-8.0); PROTEIN,URINE 4+ (NEGATIVE); UROBILINOGEN,URINE NORMAL MG/DL (0.0-1.0)
[2018-07-17 21:56] LABS: APPEARANCE,URINE TURBID
--- NOTE | 2018-07-17 22:00 | NUR ---
NURSE NOTES: Primary MD notified about diabetic wound and wound vac. RN Asked the primary MD for wound consult. No further order received for wound consult.
--- NOTE | 2018-07-17 22:10 | NUR ---
NURSE NOTES: Paged MD Fuller with call back number in order to get admission orders.
--- NOTE | 2018-07-17 23:31 | NUR ---
NURSE NOTES: Per MD Order called and confirmed the HD with [facility] on 07/17/2018.
[2018-07-17] MEDS ORDERED: HydrALAZINE 25mg tab ORAL PRN (23:45)
[2018-07-17] MEDS ORDERED: Miralax 17gm pkt ORAL PRN (23:45)
[2018-07-18] VITALS: BP 133/60
[2018-07-18 04:00] VITALS: BP 137/64
--- NOTE | 2018-07-18 07:35 | NUR ---
HAND-OFF: Report given to Vera NATION.
[2018-07-18 08:00] VITALS: BP 130/97
[2018-07-18] MEDS ORDERED: Heparin Sod 1000 units/ml 10ml IV PRN (08:00)
--- NOTE | 2018-07-18 08:00 | NUR ---
NURSE NOTES: Report received from Deny NATION. Patient is observed in bed, awake, eating breakfast. Patient denies pain at this time. Respiration even and unlabored. IV site is asymptomatic, patent, and intact. RADHA fistula is asymptomatic, bruit and thrill present. Bed is in lowest position with side rails up x2 and brakes are engaged. Bed alarm is on. Encouraged patient to use call light when in need of assistance. Will continue to monitor.
--- NOTE | 2018-07-18 08:00 | NUR ---
NURSE NOTES: Report received from Georgette NATION. Patient is observed in bed, alert to name only, open eyes via tactile stimuli. Respiration labored, patient is on non-rebreather mask saturating at >98%. IV site on left wrist is patent, asymptomatic, patent, and intact. Left AC 22g is asmyptomatic, patent, and intact. IV fluid is running at a prescribed rate. GTF is stopped due to change of condition. Vital signs are as follows: BP: 92/64, HR: 106, T: 99.6, cooling measures implemented. HOB is elevated. Will continue to monitor. Addendum: 07/18/18 at 0956 by SANDI MOREAU RN WRONG PATIENT.
--- NOTE | 2018-07-18 08:30 | NUR ---
NURSE NOTES: Patient is asleep but arousable via voice and tactile stimuli. Temp: 97.1. Respiration labored, pt is non-rebreather saturating at 100%. IV fluid is running at a prescribed rate. Pt repositioned and tolerated well. Will continue to monitor. Addendum: 07/18/18 at 0956 by SANDI MOREAU RN WRONG PATIENT.
--- NOTE | 2018-07-18 08:30 | NUR ---
NURSE NOTES: Spoke to [facility] dialysis nurse and will be here at 1100. Instructed RN to hold hypertensive medications. Order noted and will carry out. Vital signs are as follows: 130/97, HR: 71, T: 97.2, O2: 95%. Will continue to monitor.
[2018-07-18] MEDS ORDERED: Atenolol 25mg tab ORAL SCH (09:00)
[2018-07-18] MEDS: Heparin 5000 units/ml inj SUBQ SCH ×2 (09:00→21:12)
[2018-07-18] MEDS: Carvedilol 6.25mg Tab ORAL SCH ×2 (09:00→21:07)
[2018-07-18] MEDS: Lisinopril 20mg tab ORAL SCH (09:00)
[2018-07-18] MEDS ORDERED: Heparin 5000 units/ml inj SUBQ SCH (09:00)
[2018-07-18] MEDS ORDERED: Ascorbic Acid 500mg tab ORAL SCH (09:00)
[2018-07-18] MEDS: Aspirin Baby 81mg ORAL SCH (09:11)
[2018-07-18] MEDS: Docusate 100mg cap ORAL SCH ×3 (09:12→17:24)
[2018-07-18] MEDS: Nephrovite tab (Rena-Vite) ORAL SCH (11:35)
[2018-07-18] MEDS: Nateglinide 60mg tab ORAL SCH ×2 (11:35→17:24)
[2018-07-18 12:00] VITALS: BP 138/98
--- NOTE | 2018-07-18 12:22 | Cardiology Report ---
APPROVED REPORT EKG Measurement Heart [id number] Sinus rhythm with premature atrial complexes Low voltage QRS Cannot rule out Anterior infarct, age undetermined Abnormal ECG
--- NOTE | 2018-07-18 12:35 | NUR ---
NURSE NOTES: Patient is currently on dialysis at this time.
--- NOTE | 2018-07-18 13:15 | History and Physical Report ---
DATE OF ADMISSION: 07/17/2018 CHIEF COMPLAINT: Extreme diffuse swelling. HISTORY OF PRESENT ILLNESS: This is a 72-year-old female who was just discharged last week from this hospital after a prolonged admission with septic shock and other complications. The patient went back to a fdc. Due to several issues, the patient did not make it to her regular dialysis day before the yesterday. The patient has accumulated fluids and developed the anasarca. Out of concern, the fdc called me. Due to the holiday, the dialysis unit was closed and there was no way the patient could have got dialysis on time and in order to prevent complications, the patient was sent to the hospital. PAST MEDICAL HISTORY: 1. Recent septic shock and prolonged admission. 2. End-stage renal failure, on dialysis. 3. Type 2 diabetes mellitus. 4. Blindness due to diabetic retinopathy. 5. Anemia of chronic kidney disease. 6. 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 7. Left heel, chronic osteomyelitis of the calcaneus. 8. Ischemic heart disease. 9. Peripheral vascular disease. 10. Severe mitral regurgitation. 11. Status post subacute bacterial endocarditis. MEDICATIONS: Tylenol p.r.n., amlodipine, ascorbic acid, aspirin, atenolol, Coreg, Epogen, Neurontin, subcutaneous heparin, hydralazine, Levaquin, lisinopril, Starlix, Protonix, MiraLAX, and senna. ALLERGIES: No known drug allergies. FAMILY HISTORY: Unremarkable. SOCIAL HISTORY: She lives in a fdc. HABITS: She is nonsmoker and nondrinker with no history of illicit drug abuse. REVIEW OF SYSTEMS: HEENT: She is blind. ENDOCRINE: Significant for multiorgan type 2 diabetes mellitus. RESPIRATORY: She has orthopnea and paroxysmal nocturnal dyspnea. CARDIAC: The patient has severe tricuspid and mitral regurgitation. GASTROINTESTINAL: No history of hematochezia, melena, hematemesis, diarrhea, or constipation. NEUROLOGIC: No history of stroke, syncope, or Parkinson disease. PHYSICAL EXAMINATION: GENERAL: This is an elderly female, who is in no acute distress. VITAL SIGNS: Blood pressure 130/97, pulse 71 and regular, respirations 18, and temperature 97.2 degrees. HEENT: Head is normocephalic. The patient is blind. NECK: Supple. Trachea midline. There is no lymphadenopathy or thyromegaly. HEART: Regular rate and rhythm. LUNGS: Clear to auscultation and percussion. ABDOMEN: Soft and nontender. Bowel sounds are active. EXTREMITIES: She has right below knee stump clean. The left heel shows sign of left heel wound. NEUROLOGIC: She is alert and oriented x4. LABORATORY AND ANCILLARY DATA: Hematocrit 28.2, WBC 5.3, and platelet count 127,000. Electrolytes within normal limits. BUN 51, creatinine 5, and alkaline phosphatase 138. Chest x-ray, a loculated bilateral pleural fluid collections, retrocardiac atelectasis or consolidation. ASSESSMENT: 1. Anasarca. 2. Recent septic shock and prolonged admission. 3. End-stage renal failure, on dialysis. 4. Type 2 diabetes mellitus. 5. Blindness due to diabetic retinopathy. 6. Anemia of chronic kidney disease. 7. 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 8. Left heel, chronic osteomyelitis of the calcaneus. 9. Ischemic heart disease. 10. Peripheral vascular disease. 11. Severe mitral regurgitation. 12. Status post subacute bacterial endocarditis. PLAN: 1. Hemodialysis today. 2. Try to discharge the patient to the fdc to obtain her regular dialysis on a schedule plus verifying the outpatient dialysis schedule before discharge. Brenda Fuller M.D. DRNydia PERRY JOB#: [id number] CC:
--- NOTE | 2018-07-18 13:43 | NUR ---
NURSE NOTES: Patient is observed in bed, awake, alert, oriented, and able to make needs known. No complains of pain at this time. Patient is undergoing HD at this time. Will continue to monitor.
[2018-07-18 16:10] VITALS: BP 135/78
--- NOTE | 2018-07-18 18:38 | NUR ---
NURSE NOTES: Patient is awake, eating dinner. No complaints of pain at this time. Will continue to monitor.
--- NOTE | 2018-07-18 19:25 | NUR ---
NURSE NOTES: Received report from Cindi Cook RN. Pt has no respiratory distress RA. CNAs are cleaning pt for having BM. Wound vac. is on L. heel, draining with 125 mmHg. Safety measures are applied with bed alarm on, bed in lowest position w/ side rails up x3, and breaks are engaged. Side table and call lights are applied. Will follow plans of care.
--- NOTE | 2018-07-18 19:34 | NUR ---
HAND-OFF: Report given to Danielle NATION. Endorsed plan of care.
[2018-07-18 20:00] VITALS: BP 131/66
[2018-07-18] MEDS: Sennosides 8.6mg tab ORAL SCH (21:00)
[2018-07-18] MEDS: Dyna-Hex 2% Top Sol 2oz TOPIC SCH (21:07)
[2018-07-19] VITALS: BP 108/62
[2018-07-19 04:00] VITALS: BP 116/59
[2018-07-19] MEDS: Nateglinide 60mg tab ORAL SCH ×2 (06:30→06:48)
--- NOTE | 2018-07-19 07:04 | NUR ---
NURSE NOTES: Pt refused to take Starlix 6- mg because BS is 62. One cup of Bradley Juice was given.
[2018-07-19 07:13] LABS: ANION GAP 7 mmol/L (5-15); BLOOD UREA NITROGEN 47 mg/dL (7-18); CALCIUM 8.4 MG/DL (8.5-10.1); CARBON DIOXIDE 30 MMOL/L (21-32); CHLORIDE 101 MMOL/L (98-107); CREATININE 4.7 MG/DL (0.55-1.30); SODIUM 138 MMOL/L (136-145)
[2018-07-19 07:18] LABS: HEMATOCRIT 25.5 % (37.0-47.0); HEMOGLOBIN 7.5 G/DL (12.0-16.0); MEAN CORPUSCULAR VOLUME 90 FL (80-99); PLATELET COUNT 91 K/UL (150-450); RED BLOOD COUNT 2.84 M/UL (4.20-5.40); RED CELL DISTRIBUTION WIDTH 15.3 % (11.6-14.8); WHITE BLOOD COUNT 5.1 K/UL (4.8-10.8)
--- NOTE | 2018-07-19 07:25 | NUR ---
NURSE NOTES: Report received from CHAPIS Santos. patient seen in bed eating breakfast. Alert, verbally responsive, able to make needs known. Patient is legally blind, requires assistance with ADLs. Denies any pain at this time. Continues on oxygen of 2L/min via N/C with no respiratory distress noted at this time. Patient has wound to left heel area with wound vac.( Right BKA.) PICC line to right arm present, dressing is intact. IV hydration of NS is running 75ml/HR. Fistula to right upper arm. Bed is in lowest position. Harrison light is within easy reach. will continue to monitor.
--- NOTE | 2018-07-19 07:25 | NUR ---
HAND-OFF: Report given to CHAPIS Cortes. Stable condition.
[2018-07-19 08:00] VITALS: BP 122/66
[2018-07-19] MEDS: Heparin 5000 units/ml inj SUBQ SCH ×2 (09:00→21:00)
[2018-07-19] MEDS ORDERED: Ascorbic Acid 500mg tab ORAL SCH (09:00)
[2018-07-19] MEDS: Carvedilol 6.25mg Tab ORAL SCH ×2 (09:11→21:43)
[2018-07-19] MEDS: Docusate 100mg cap ORAL SCH ×3 (09:12→17:21)
[2018-07-19] MEDS: Nephrovite tab (Rena-Vite) ORAL SCH (09:12)
[2018-07-19] MEDS: Lisinopril 20mg tab ORAL SCH (09:12)
--- NOTE | 2018-07-19 09:12 | NUR ---
CASE MANAGEMENT:REVIEW FROM [facility]: ESRD ON HD CC: MISSED DIALYSIS. MWF SI: PLEURAL EFF. UTI. NSTEMI 97.4 69 22 113/68 99% ON 2L/NC TROPONIN(+) 0.135 BUN+51 CR+5.0 IS: ASA PO CXR URINE CX : TO TELEMETRY IS: LISINOPRIL PO QD LEVAQUIN PO QOD NORVASC PO BID ASA PO QD COREG PO Q12 HEPARIN SQ Q12 INTERQUAL CRITERIA MET
[2018-07-19] MEDS: Aspirin Baby 81mg ORAL SCH (09:13)
--- NOTE | 2018-07-19 10:00 | NUR ---
Bed bath provided to patient. Wound vac changed and assessed by wound nurse (Luciana).
--- NOTE | 2018-07-19 11:32 | Nephrology Progress Note ---
Assessment/Plan Plan Arranging Outpatient HD+ Wound VaC BG 60 - DC Starlix!!! 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 E Rt. BKA clean. Wound Vac arranged Objective Objective Last 24 Hour Vital Signs Date Time Temp Pulse Resp B/P (MAP) Pulse Ox O2 Delivery O2 Flow Rate FiO2 07/19/18 09:12 122/66 07/19/18 09:12 71 122/66 07/19/18 09:11 71 122/66 07/19/18 09:00 Room Air 07/19/18 08:00 97.3 71 21 122/66 (84) 100 07/19/18 07:57 68 07/19/18 04:00 98.4 66 18 116/59 (78) 100 07/19/18 03:52 72 07/19/18 00:00 98.0 69 18 108/62 (77) 100 07/18/18 23:52 67 07/18/18 21:07 69 131/66 07/18/18 21:00 Room Air 07/18/18 20:00 97.7 69 20 131/66 (87) 100 07/18/18 19:00 83 07/18/18 17:25 84 135/78 07/18/18 16:10 99.0 84 20 135/78 (97) 96 07/18/18 15:16 77 07/18/18 12:00 76 07/18/18 12:00 97.0 73 20 138/98 (111) 96 Intake and Output 07/18/18 07/19/18 19:00 07:00 Intake Total 1080 ml Output Total 3000 ml Balance -1920 ml Intake Oral 1080 ml Hemodialysis UF 3000 ml # Voids 2 # Bowel Movements 4 2 Laboratory Tests 07/19/18 05:53: White Blood Count 5.1, Red Blood Count 2.84L, Hemoglobin 7.5L, Hematocrit 25.5L , Mean Corpuscular Volume 90, Mean Corpuscular Hemoglobin 26.5L, Mean Corpuscular Hemoglobin Concent 29.4L, Red Cell Distribution Width 15.3H, Platelet Count 91L, Mean Platelet Volume 8.5, Neutrophils (%) (Auto) , Lymphocytes (%) (Auto) , Monocytes (%) (Auto) , Eosinophils (%) (Auto) , Basophils (%) (Auto) , Differential Total Cells Counted 100, Neutrophils % ( Manual) 64, Lymphocytes % (Manual) 21, Monocytes % (Manual) 7, Eosinophils % ( Manual) 8H, Basophils % (Manual) 0, Band Neutrophils 0, Platelet Estimate Adequate, Platelet Morphology Normal, Hypochromasia 1+, Anisocytosis 1+, Target Cells 1+, Sodium Level 138, Potassium Level 4.0, Chloride Level 101, Carbon Dioxide Level 30, Anion Gap 7, Blood Urea Nitrogen 47H, Creatinine 4.7H, Estimat Glomerular Filtration Rate 11.2, Glucose Level 61#L, Calcium Level 8.4L Height (Feet): 5 Height (Inches): 7.00 Weight (Pounds): 220 Brenda Fuller MD Jul 19, 2018 11:32
[2018-07-19 12:00] VITALS: BP 120/60
[2018-07-19] MEDS ORDERED: Heparin Sod 1000 units/ml 10ml IV PRN (12:00)
[2018-07-19 12:10] LABS: HEMATOCRIT 25.1 % (37.0-47.0); HEMOGLOBIN 7.6 G/DL (12.0-16.0); MEAN CORPUSCULAR VOLUME 92 FL (80-99); PLATELET COUNT 95 K/UL (150-450); RED BLOOD COUNT 2.74 M/UL (4.20-5.40); RED CELL DISTRIBUTION WIDTH 15.5 % (11.6-14.8); WHITE BLOOD COUNT 5.2 K/UL (4.8-10.8)
--- NOTE | 2018-07-19 12:17 | NUR ---
RD ASSESSMENT & RECOMMENDATIONS SEE CARE ACTIVITY FOR COMPLETE ASSESSMENT DAILY ESTIMATED NEEDS: Needs based on ESRD on HD, Wounds, (Adj Wt 62kg) 24-30 kcals/kg 3907-8911 total kcals 1.25-2 g protein/kg 76-124 g total protein Fluid per MD, on HD NUTRITION DIAGNOSIS: 1) Increased kcal, pro needs R/T wound healing and renal dysfunction as evidenced by pt w/ left heel, sacral and lt ischial wounds, w/ ESRD on HD. CURRENT DIET:RENAL / CCHO MED diet w/ HTL PO DIET RECOMMENDATIONS: * RENAL/ texture per SENIOR ACCOUNTING CLERK + high prot snacks BID * ADDITIONAL RECOMMENDATIONS: 1) Wound healing: Continue Dimitry 1pkt BID, add Nephrovite x 1 2) Obtain dry wt post HD on a calibrated bed scale 3) Monitor renal fxn and lytes closely 4) D/c CCHO diet / rec RENAL only 5) Nepro 1 tetra lucy daily . .
--- NOTE | 2018-07-19 12:20 | NUR ---
Provided princess care and changed resident due to loose stool. ( Stool softener was held)
--- NOTE | 2018-07-19 12:39 | NUR ---
NURSE NOTES: Received dialysis order for 07/20/18. Called [facility], spoke to Emma and made aware of the dialysis date.
[2018-07-19] MEDS: D5 1/2NS 1,000 ML IV SCH (13:06)
--- NOTE | 2018-07-19 15:17 | NUR ---
NURSE NOTES:WOUND CARE NOTES:Pt presents with full thickness pressure injury L heel (L)3.8cm x (W)3.6cm x (D)0.7 cm. Wound wound bed granular at base (+) maceration along borders. Small amt sanguineous exudate noted from wound. Periwound skin is dry and flaky without erythema. NO odor noted from wound. Wound cleansed with Saline. Cavilon Skin Barrier applied along edges of wound and periwound . Transparent drsg applied along borders of wound and draped to sylvester/ distal L tibia. Granulofoam packing placed within wound and bridged over transparent drape to sylvester/distal L tibia and vac placed at this end. Abd pad then placed between Vac tubing and pt's skin to prevent pressure and wrapped with soft kerlix. L lower ext edematous .L heel off-loaded with pillow. Intertriginous dermatitis with erythema and scattered satellite lesions noted to medial and posterior aspects of both upper thighs and to buttocks. Areas of maroon discoloration noted to sacrum ,R and L buttocks without induration or c/o tenderness when palpated.R AKA stump edematous with dry, flaking skin noted. Tx.Plan:Cleanse L heel wound with Saline.Apply Cavilon Skin Barrier along edges and periwound .Place transparent drsg around wound. Pack with Granulofoam packing conformed to shape of wound.Bridge foam away from heel and place Vac away from heel at either sylvester L tibia or dorsal L foot. NPWT settings at 125mm/Hg to continuous suction. Change NPWT on Mondays and and PRN.(Please remove Foam packing if NPWT is off for 2hours,place Saline wet to dry packing and cover with Optifoam .Notify Wound Nurse SHIRAZ) Apply Triad Paste to buttocks,medial and posterior aspects of both thighs with each perineal care. Air fluidized mattress. Off-load L heel with Pillow. Reposition at least every 2hours or as tolerated.
[2018-07-19 16:00] VITALS: BP 123/76
--- NOTE | 2018-07-19 16:30 | NUR ---
Provided princess care and changed linen and gown due to episode of another loose stool. (stool softener is held)
--- NOTE | 2018-07-19 18:34 | Consultation ---
History of Present Illness General Date patient seen: Jul 19, 2018 Chief Complaint: General Complaint Present Illness HPI 72 year old female well known to me from recent admission who was discharged in stable condition. Unfortunately was unable to receive dialysis and has developed anasarca requiring readmission. Last admission had heel ulcer with was cared for and wound VAC placed. returns in similar condition. surgery called to evaluate heel wound again and assist with care and management. patient seen, chart reviewed, patient examined. Allergies: Coded Allergies: BENAZEPRIL (Verified Allergy, Unknown, 06/12/18) CODEINE (Verified Allergy, Unknown, 06/12/18) INSULIN ASPART (Verified Allergy, Unknown, 06/12/18) INSULIN DETEMIR (Verified Allergy, Unknown, 06/12/18) OPIOIDS - MORPHINE ANALOGUES (Verified Allergy, Unknown, 06/12/18) Medication History Scheduled Aspirin* (Aspirin*), 81 MG ORAL DAILY Levofloxacin (Levofloxacin*), 250 MG ORAL QOD, (Reported) Meropenem-0.9% Sodium Chloride (Meropenem-0.9% NaCl 500 mg/50), 500 MG IVPB DAILY, (Reported) Pantoprazole* (Protonix*), 40 MG ORAL ACBREAKFAST [Collagenase], 1 APPLIC TOPIC DAILY Scheduled PRN Acetaminophen* (Tylenol Extra Strength*), 500 MG ORAL Q6H PRN [D50w], 25 ML IV Q30M PRN Discontinued Medications Acetaminophen* (Tylenol Extra Strength*), 500 MG ORAL Q6H PRN for Mild Pain/ Temp > 100.5, (Reported) Discontinued Reason: discontinued med Amlodipine Besylate (Norvasc), 5 MG ORAL BID Discontinued Reason: discontinued med Ascorbic Acid* (Vitamin C*), 500 MG ORAL DAILY, (Reported) Discontinued Reason: discontinued med Aspirin* (Aspirin*), 81 MG ORAL DAILY, (Reported) Discontinued Reason: discontinued med Atenolol* (Tenormin*), 25 MG ORAL DAILY, (Reported) Discontinued Reason: discontinued med Carvedilol (Coreg), 6.25 MG ORAL EVERY 12 HOURS Discontinued Reason: MD discontinued med Collagenase Clostridium Hist. (Collagenase), 1 EACH MC DAILY, (Reported) Discontinued Reason: discontinued med Docusate Sodium* (Colace*), 100 MG ORAL THREE TIMES A DAY Discontinued Reason: MD discontinued med Epoetin Marcus (Procrit), 10,000 UNITS SUBQ TUE-TUE-TUE Discontinued Reason: MD discontinued med Gabapentin* (Gabapentin*), 100 MG ORAL DAILY, (Reported) Discontinued Reason: MD discontinued med Heparin Sod (Porcine) (Heparin Sodium*), 5,000 UNITS SUBQ EVERY 12 HOURS Discontinued Reason: MD discontinued med Heparin Sodium,Porcine/Pf (Heparin 1,000 Unit/10 (100/ml)), 5,000 UNIT SUBQ BID, (Reported) Discontinued Reason: MD discontinued med Hydralazine Hcl* (Hydralazine Hcl*), 25 MG ORAL Q4H PRN Discontinued Reason: MD discontinued med Hydrocodone Bit/Acetaminophen 5-325* ([place] 5-325*), 1 TAB ORAL Q4H PRN Discontinued Reason: MD discontinued med Insulin Aspart (Novolog Flexpen), 0 UNITS SUBQ AC+HS Discontinued Reason: MD discontinued med Lisinopril* (Lisinopril*), 20 MG ORAL DAILY, (Reported) Discontinued Reason: discontinued med Multivitamin With Minerals (Multivitamins With Minerals*), 1 TAB ORAL DAILY, ( Reported) Discontinued Reason: discontinued med Nateglinide* (Starlix*), 60 MG ORAL TIAC Discontinued Reason: MD discontinued med Oxycodone Hcl Er* (Oxycontin*), 20 MG ORAL EVERY 12 HOURS Discontinued Reason: MD discontinued med Pantoprazole* (Protonix*), 40 MG ORAL DAILY Discontinued Reason: MD discontinued med Pantoprazole* (Pantoprazole*), 40 MG ORAL DAILY, (Reported) Discontinued Reason: discontinued med Polyethylene Glycol 3350* (Miralax*), 17 GM ORAL DAILY Discontinued Reason: MD discontinued med Sennosides (Senna-Gen), 17.2 MG ORAL QHS Discontinued Reason: MD discontinued med Patient History Limited by: medical condition History Provided By: Medical Record, PMD Healthcare decision maker Resuscitation status Full Code Advanced Directive on File Past Medical/Surgical History Past Medical/Surgical History: (1) Anemia of chronic disease (2) Peripheral vascular disease (3) CKD (chronic kidney disease) stage 4, GFR 15-29 ml/min (4) DM2 (diabetes mellitus, type 2) (5) Hardware failure (6) Status post ORIF of fracture of ankle (7) Endocarditis of mitral valve (8) UTI due to extended-spectrum beta lactamase (ESBL) producing Escherichia coli (9) live at SNF (10) ankle fracture s/p ORIF on 05/13/17 and subsequenthardware failure and displaced oblique fractures of distal fibula and tibia (11) R ankle fracture s/p ORIF on 05/13/17 and subsequenthardware failure and displaced oblique fractures of distal fibula and tibia (12) Necrotic wound of R ankle/foot (13) Corynebacterium striatum group bacteremia (14) necrotic wound R ankle (15) acute on chronic anemia (16) Left heel unstageable pressure ulcer with black eschar adhered to wound bed (17) Encephalopathy acute (18) Hypotension (19) Diabetic foot ulcer with osteomyelitis (20) UTI (urinary tract infection) (21) Pleural effusion (22) Diabetic ulcer of left heel (23) NSTEMI (non-ST elevated myocardial infarction) (24) ESRD (end stage renal disease) on dialysis (25) Hypoalbuminemia (26) Alkaline phosphatase elevation (27) Lives w/ caregiver (28) HTN (hypertension) (29) HLD (hyperlipidemia) (30) Uncontrolled diabetes mellitus (31) Status post fall (32) Hyperkalemia (33) Hyponatremia (34) Pre-syncope (35) ZENY (acute kidney injury) (36) Diabetes mellitus out of control (37) Acute blood loss anemia (38) RIGHT ANKLE FRACTURE (39) Subungual hematoma left hallux (40) Dry blisters L hallux and L 2nd toe (41) Dry blisters L hallux and L 2nd toe Review of Systems ROS Narrative cannot obtain given medical condition Physical Exam General Appearance: no apparent distress Lines, tubes and drains: other HEENT: mucous membranes moist Neck: normal inspection Respiratory/Chest: decreased breath sounds Cardiovascular/Chest: normal rate Abdomen: soft, no organomegaly, distended Extremities: other Skin Exam: other Neurologic: unresponsiveness Last 24 Hour Vital Signs Date Time Temp Pulse Resp B/P (MAP) Pulse Ox O2 Delivery O2 Flow Rate FiO2 07/19/18 17:23 66 123/76 07/19/18 16:00 97.6 66 20 123/76 (92) 97 07/19/18 15:15 70 07/19/18 12:09 70 07/19/18 12:00 97.6 67 20 120/60 (80) 98 07/19/18 09:12 122/66 07/19/18 09:12 71 122/66 07/19/18 09:11 71 122/66 07/19/18 09:00 Room Air 07/19/18 08:00 97.3 71 21 122/66 (84) 100 07/19/18 07:57 68 07/19/18 04:00 98.4 66 18 116/59 (78) 100 07/19/18 03:52 72 07/19/18 00:00 98.0 69 18 108/62 (77) 100 07/18/18 23:52 67 07/18/18 21:07 69 131/66 07/18/18 21:00 Room Air 07/18/18 20:00 97.7 69 20 131/66 (87) 100 07/18/18 19:00 83 Intake and Output 07/18/18 07/19/18 18:59 06:59 Intake Total 1080 ml Output Total 3000 ml Balance -1920 ml Intake Oral 1080 ml Hemodialysis UF 3000 ml # Voids 2 # Bowel Movements 4 2 Laboratory Tests Test 07/19/18 05:53 07/19/18 11:52 White Blood Count 5.1 K/UL (4.8-10.8) 5.2 K/UL (4.8-10.8) Red Blood Count 2.84 M/UL (4.20-5.40) L 2.74 M/UL (4.20-5.40) L Hemoglobin 7.5 G/DL (12.0-16.0) L 7.6 G/DL (12.0-16.0) L Hematocrit 25.5 % (37.0-47.0) L 25.1 % (37.0-47.0) L Mean Corpuscular Volume 90 FL (80-99) 92 FL (80-99) Mean Corpuscular Hemoglobin 26.5 PG (27.0-31.0) L 27.8 PG (27.0-31.0) Mean Corpuscular Hemoglobin Concent 29.4 G/DL (32.0-36.0) L 30.3 G/DL (32.0-36.0) L Red Cell Distribution Width 15.3 % (11.6-14.8) H 15.5 % (11.6-14.8) H Platelet Count 91 K/UL (150-450) L 95 K/UL (150-450) L Mean Platelet Volume 8.5 FL (6.5-10.1) 9.0 FL (6.5-10.1) Neutrophils (%) (Auto) % (45.0-75.0) % (45.0-75.0) Lymphocytes (%) (Auto) % (20.0-45.0) % (20.0-45.0) Monocytes (%) (Auto) % (1.0-10.0) % (1.0-10.0) Eosinophils (%) (Auto) % (0.0-3.0) % (0.0-3.0) Basophils (%) (Auto) % (0.0-2.0) % (0.0-2.0) Differential Total Cells Counted 100 100 Neutrophils % (Manual) 64 % (45-75) 72 % (45-75) Lymphocytes % (Manual) 21 % (20-45) 19 % (20-45) L Monocytes % (Manual) 7 % (1-10) 6 % (1-10) Eosinophils % (Manual) 8 % (0-3) H 3 % (0-3) Basophils % (Manual) 0 % (0-2) 0 % (0-2) Band Neutrophils 0 % (0-8) 0 % (0-8) Platelet Estimate Adequate Decreased L Platelet Morphology Normal Normal Hypochromasia 1+ 2+ Anisocytosis 1+ 1+ Target Cells 1+ Sodium Level 138 MMOL/L (136-145) Potassium Level 4.0 MMOL/L (3.5-5.1) Chloride Level 101 MMOL/L (98-107) Carbon Dioxide Level 30 MMOL/L (21-32) Anion Gap 7 mmol/L (5-15) Blood Urea Nitrogen 47 mg/dL (7-18) H Creatinine 4.7 MG/DL (0.55-1.30) H Estimat Glomerular Filtration Rate 11.2 mL/min (>60) Glucose Level 61 MG/DL (74-106) #L Calcium Level 8.4 MG/DL (8.5-10.1) L Troponin I 0.049 ng/mL (0.000-0.056) Height (Feet): 5 Height (Inches): 7.00 Weight (Pounds): 220 Medications Current Medications Medications (Trade) Dose Ordered Sig/Andre Route PRN Reason Start Time Stop Time Status Last Admin Dose Admin Acetaminophen (Tylenol) 650 mg Q6H PRN ORAL Mild Pain/Temp > 100.5 07/17/18 23:45 08/16/18 23:44 07/18/18 21:14 Amlodipine Besylate (Norvasc) 5 mg BID ORAL 07/18/18 09:00 08/17/18 08:59 07/19/18 17:23 Aspirin (ASA) 81 mg DAILY ORAL 07/18/18 09:00 08/17/18 08:59 07/19/18 09:13 Carvedilol (Coreg) 6.25 mg EVERY 12 HOURS ORAL 07/18/18 09:00 08/17/18 08:59 07/19/18 09:11 Chlorhexidine Gluconate (Fabiola-Hex 2%) 1 applic DAILY@2000 TOPIC 07/18/18 20:00 08/17/18 19:59 07/18/18 21:07 Dextrose (Dextrose 50%) 25 ml Q30M PRN IV Hypoglycemia 07/18/18 00:30 08/17/18 00:29 Dextrose (Dextrose 50%) 50 ml Q30M PRN IV Hypoglycemia 07/18/18 00:30 08/17/18 00:29 Dextrose/Sodium Chloride 1,000 ml @ 20 mls/hr Q24H IV 07/19/18 12:00 08/18/18 11:59 07/19/18 13:06 Docusate Sodium (Colace) 100 mg THREE TIMES A DAY ORAL 07/18/18 09:00 08/17/18 08:59 07/19/18 09:12 Epoetin Marcus (Procrit (for ESRD on dialysis)) 7,000 units TUE-TUE-TUE SUBQ 07/19/18 21:00 08/18/18 20:59 Gabapentin (Neurontin) 100 mg DAILY ORAL 07/18/18 09:00 08/17/18 08:59 07/19/18 09:12 Heparin Sodium (Porcine) (Heparin 5000 units/ml) 5,000 units EVERY 12 HOURS SUBQ 07/18/18 09:00 08/17/18 08:59 07/18/18 21:12 Heparin Sodium (Porcine) (Heparin Sod 1000 units/ml 10ml) 2,000 unit ONCE PRN IV FOR HD USE ONLY 07/19/18 12:00 07/20/18 23:59 Levofloxacin (Levaquin) 250 mg EVERY OTHER DAY ORAL 07/19/18 09:00 07/26/18 08:59 07/19/18 09:12 Lisinopril (Prinivil) 20 mg DAILY ORAL 07/18/18 09:00 08/17/18 08:59 07/19/18 09:12 Pantoprazole (Protonix) 40 mg DAILY ORAL 07/18/18 09:00 08/17/18 08:59 07/19/18 09:12 Polyethylene Glycol (Miralax) 17 gm DAILY PRN ORAL Constipation 07/17/18 23:45 08/16/18 23:44 Sennosides (Senokot) 17.2 mg QHS ORAL 07/18/18 21:00 08/17/18 20:59 Sodium Chloride 1,000 ml @ 500 mls/hr Q2H PRN IVLG sbp<90 during hd 07/19/18 12:00 07/20/18 23:59 Vitamin B Complex/ Vit C/Folic Acid (Nephrovite) 1 tab DAILY ORAL 07/18/18 11:00 08/17/18 10:59 07/19/18 09:12 Assessment/Plan Problem List: (1) Left heel unstageable pressure ulcer with black eschar adhered to wound bed Assessment & Plan: Stage IV Full thickness pressure injury L heel (L)3.8cm x (W )3.6cm x (D)0.7 cm. Wound wound bed granular at base (+) maceration along borders. Small amt sanguineous exudate noted from wound. Periwound skin is dry and flaky without erythema. No odor noted from wound. Transparent drsg applied along borders of wound and draped to sylvester/ distal L tibia. Granulofoam packing placed within wound and bridged over transparent drape to sylvester/distal L tibia and vac placed at this end. Abd pad then placed between Vac tubing and pt's skin to prevent pressure and wrapped with soft kerlix. L lower ext edematous L heel off-loaded with pillow. Intertriginous dermatitis with erythema and scattered satellite lesions noted to medial and posterior aspects of both upper thighs and to buttocks. Areas of maroon discoloration noted to sacrum ,R and L buttocks. R AKA stump edematous with dry, flaking skin noted. Tx.Plan: Cleanse L heel wound with Saline.Apply Cavilon Skin Barrier along edges and periwound .Place transparent drsg around wound. Pack with Granulofoam packing conformed to shape of wound.Bridge foam away from heel and place. Vac away from heel at either sylvester L tibia or dorsal L foot. NPWT settings at 125mm/Hg to continuous suction. Change NPWT on Mondays and and PRN.(Please remove Foam packing if NPWT is off for 2hours,place Saline wet to dry packing and cover with Optifoam .Notify Wound Nurse SHIRAZ) Apply Triad Paste to buttocks,medial and posterior aspects of both thighs with each perineal care. Air fluidized mattress. Off-load L heel with Pillow. Reposition at least every 2hours or as tolerated. Tuan Luis Jul 19, 2018 18:34
--- NOTE | 2018-07-19 19:06 | NUR ---
NURSE NOTES: Spoke with Dr. Fuller via telephone, informed regarding latest hgb level of 7.6, No new order at this time. Will endorse to incoming shift,
--- NOTE | 2018-07-19 19:35 | NUR ---
NURSE NOTES: Received pt. and report from CHAPIS Danielle. Observe pt. resting in bed with family member at beside. efficiency clerk is in placed, IV site is intact, asymptomatic and patent. Wound vac is in placed on left heel at 125mmHg. Bed is in the lowest position and locked, call light within reach. No acute distress noted at this time. Will continue plan of care.
--- NOTE | 2018-07-19 19:45 | NUR ---
HAND-OFF: Report given to My, RN .
[2018-07-19 20:00] VITALS: BP 125/74
[2018-07-19] MEDS ORDERED: Epogen (for ESRD on dialysis) SUBQ SCH (21:00)
[2018-07-19] MEDS: Sennosides 8.6mg tab ORAL SCH (21:00)
[2018-07-19] MEDS: Dyna-Hex 2% Top Sol 2oz TOPIC SCH (21:42)
[2018-07-19] MEDS: Epogen (for ESRD on dialysis) SUBQ SCH (21:43)
[2018-07-20] VITALS: BP 129/61
[2018-07-20 04:00] VITALS: BP 118/72
[2018-07-20 07:08] LABS: HEMOGLOBIN 7.2 G/DL (12.0-16.0); MEAN CORPUSCULAR VOLUME 91 FL (80-99); PLATELET COUNT 98 K/UL (150-450); RED BLOOD COUNT 2.65 M/UL (4.20-5.40); RED CELL DISTRIBUTION WIDTH 15.7 % (11.6-14.8); WHITE BLOOD COUNT 5.5 K/UL (4.8-10.8)
[2018-07-20 07:26] LABS: ANION GAP 7 mmol/L (5-15); BLOOD UREA NITROGEN 53 mg/dL (7-18); CALCIUM 8.5 MG/DL (8.5-10.1); CARBON DIOXIDE 29 MMOL/L (21-32); CHLORIDE 101 MMOL/L (98-107); CREATININE 5.3 MG/DL (0.55-1.30); PHOSPHORUS 4.2 MG/DL (2.5-4.9); POTASSIUM 4.4 MMOL/L (3.5-5.1); SODIUM 137 MMOL/L (136-145)
--- NOTE | 2018-07-20 07:45 | NUR ---
HAND-OFF: Report given to CHAPIS Bledsoe. Pt. is in stable condition.
--- NOTE | 2018-07-20 07:47 | NUR ---
NURSE NOTES: Received patient and report from CHAPIS Hill in bed eating breakfast. Denies any pain, no s/s of respiratory distress. fire alarm installer is in placed, IV site is intact and patent. Wound vac is in placed on left heel at 125mmHg. Bed is in the lowest position and brakes engaged for safety. Call light is within easy reach. No acute distress noted at this time. Will continue with the plan of care.
[2018-07-20 08:00] VITALS: BP 128/67
[2018-07-20] MEDS: Carvedilol 6.25mg Tab ORAL SCH ×2 (09:00→21:00)
[2018-07-20] MEDS: Lisinopril 20mg tab ORAL SCH (09:00)
[2018-07-20] MEDS: Heparin 5000 units/ml inj SUBQ SCH ×2 (09:00→21:00)
[2018-07-20] MEDS: Docusate 100mg cap ORAL SCH ×3 (09:00→18:00)
[2018-07-20] MEDS: Nephrovite tab (Rena-Vite) ORAL SCH (09:06)
[2018-07-20] MEDS: Aspirin Baby 81mg ORAL SCH (09:06)
[2018-07-20 12:00] VITALS: BP 119/62
[2018-07-20] MEDS: D5 1/2NS 1,000 ML IV SCH (12:23)
--- NOTE | 2018-07-20 14:00 | NUR ---
Called [facility] dialysis to inquire about the patient's dialysis. Awaiting call back.
[2018-07-20 16:00] VITALS: BP 123/65
[2018-07-20] MEDS ORDERED: D5 1/2NS 1000ml IV ONE (16:05)
--- NOTE | 2018-07-20 17:53 | Nephrology Progress Note ---
Assessment/Plan Plan Arranging Outpatient HD+ Wound VaC BG 60 - DC Starlix!!! BG 110 on IV Dextrose. Cannot DC! Try to switch to regular diet tomorrow. 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 E Rt. BKA clean. Wound Vac arranged Objective Objective Last 24 Hour Vital Signs Date Time Temp Pulse Resp B/P (MAP) Pulse Ox O2 Delivery O2 Flow Rate FiO2 07/20/18 16:00 97.3 67 20 123/65 (84) 98 07/20/18 16:00 67 07/20/18 12:00 97.5 65 20 119/62 (81) 98 07/20/18 12:00 65 07/20/18 09:00 Room Air 07/20/18 09:00 128/67 07/20/18 09:00 69 128/67 07/20/18 09:00 69 128/67 07/20/18 08:00 97.5 67 20 128/67 (87) 100 07/20/18 08:00 66 07/20/18 04:00 97.6 67 21 118/72 (87) 98 07/20/18 04:00 67 07/20/18 00:00 97.4 75 20 129/61 (83) 98 07/20/18 00:00 75 07/19/18 21:43 77 125/74 07/19/18 21:00 Room Air 07/19/18 20:00 97.6 71 20 125/74 (91) 99 07/19/18 20:00 71 Intake and Output 07/19/18 07/20/18 19:00 07:00 Intake Total 560 ml 580 ml Output Total 20 ml Balance 540 ml 580 ml Intake Oral 440 ml 380 ml IV Total 120 ml 200 ml Output Drainage Total 20 ml # Voids 2 # Bowel Movements 8 5 Laboratory Tests 07/20/18 04:50: White Blood Count 5.5, Red Blood Count 2.65L, Hemoglobin 7.2L, Hematocrit 24.0L , Mean Corpuscular Volume 91, Mean Corpuscular Hemoglobin 27.1, Mean Corpuscular Hemoglobin Concent 29.9L, Red Cell Distribution Width 15.7H, Platelet Count 98L, Mean Platelet Volume 9.0, Neutrophils (%) (Auto) , Lymphocytes (%) (Auto) , Monocytes (%) (Auto) , Eosinophils (%) (Auto) , Basophils (%) (Auto) , Differential Total Cells Counted 100, Neutrophils % ( Manual) 73, Lymphocytes % (Manual) 20, Monocytes % (Manual) 7, Eosinophils % ( Manual) 0, Basophils % (Manual) 0, Band Neutrophils 0, Platelet Estimate DecreasedL, Platelet Morphology Normal, Hypochromasia 1+, Anisocytosis 1+, Sodium Level 137, Potassium Level 4.4, Chloride Level 101, Carbon Dioxide Level 29, Anion Gap 7, Blood Urea Nitrogen 53H, Creatinine 5.3H, Estimat Glomerular Filtration Rate 9.7, Glucose Level 104, Calcium Level 8.5, Phosphorus Level 4.2 Height (Feet): 5 Height (Inches): 7.00 Weight (Pounds): 218 Brenda Fuller MD Jul 20, 2018 17:53
--- NOTE | 2018-07-20 19:10 | NUR ---
NURSE NOTES: Called [facility] to inquire about the patient's dialysis. Will endorse to PM nurse to follow up.
--- NOTE | 2018-07-20 19:20 | NUR ---
NURSE NOTES: Received pt. and report from CHAPIS Bledsoe. Pt. is resting in bed. senior internal auditor is in placed, IV site intact, asymptomatic, and patent. Bed is in the lowest position and locked and call light within reach. No acute distress noted at this time. Will continue plan of care.
--- NOTE | 2018-07-20 19:26 | NUR ---
HAND-OFF: Report given to CHAPIS Hill.Patient is in stable condition.
[2018-07-20 20:00] VITALS: BP 129/60
[2018-07-20] MEDS: Sennosides 8.6mg tab ORAL SCH (21:00)
--- NOTE | 2018-07-20 21:05 | NUR ---
NURSE NOTES: Pt. is currently getting dialysis by [facility].
[2018-07-20] MEDS: Dyna-Hex 2% Top Sol 2oz TOPIC SCH (21:36)
[2018-07-21] VITALS: BP 128/61
[2018-07-21 04:00] VITALS: BP 122/60
--- NOTE | 2018-07-21 07:15 | NUR ---
NURSE NOTES: I received the patient resting in bed. Patient was set-up to eat breakfast. Patient is alert and oriented x4. Bed in the lowest position and call light within reach. Patient does not display any signs of distress or SOB. I will continue to monitor the patient and implement care.
--- NOTE | 2018-07-21 07:55 | NUR ---
HAND-OFF: Report given to CHAPIS Beth. Patient is in stable condition.
[2018-07-21 08:00] VITALS: BP 126/74
[2018-07-21] MEDS: Carvedilol 6.25mg Tab ORAL SCH ×3 (09:00→20:55)
[2018-07-21] MEDS: Heparin 5000 units/ml inj SUBQ SCH ×2 (09:00→20:57)
[2018-07-21] MEDS: Docusate 100mg cap ORAL SCH ×3 (09:00→17:16)
[2018-07-21] MEDS: Nephrovite tab (Rena-Vite) ORAL SCH (09:32)
[2018-07-21] MEDS: Lisinopril 20mg tab ORAL SCH (09:32)
[2018-07-21] MEDS: Aspirin Baby 81mg ORAL SCH (09:32)
[2018-07-21 11:57] VITALS: BP 135/78
--- NOTE | 2018-07-21 13:11 | Nephrology Progress Note ---
Assessment/Plan Plan Arranging Outpatient HD+ Wound VaC BG 180 on IV Dextrose. DC IV Dextrose and monitor accuchecks. 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 E Rt. BKA clean. Wound Vac arranged Objective Objective Last 24 Hour Vital Signs Date Time Temp Pulse Resp B/P (MAP) Pulse Ox O2 Delivery O2 Flow Rate FiO2 07/21/18 11:57 97.3 74 18 135/78 (97) 95 07/21/18 09:32 126/74 07/21/18 09:32 69 126/74 07/21/18 09:00 Room Air 07/21/18 09:00 69 126/74 07/21/18 08:00 97.3 69 18 126/74 (91) 96 07/21/18 07:42 70 07/21/18 04:00 97.2 88 20 122/60 (80) 100 07/21/18 04:00 65 07/21/18 00:00 69 07/21/18 00:00 97.3 69 20 128/61 (83) 98 07/20/18 21:00 65 129/60 07/20/18 21:00 Room Air 07/20/18 20:00 97.0 65 20 129/60 (83) 99 07/20/18 20:00 72 07/20/18 18:00 67 123/65 07/20/18 16:00 97.3 67 20 123/65 (84) 98 07/20/18 16:00 67 Intake and Output 07/20/18 07/21/18 19:00 07:00 Intake Total 790 ml Balance 790 ml Intake Oral 300 ml IV Total 240 ml Blood Product 250 ml # Voids 3 1 # Bowel Movements 5 4 Height (Feet): 5 Height (Inches): 7.00 Weight (Pounds): 216 Brenda Fuller MD Jul 21, 2018 13:11
[2018-07-21] MEDS ORDERED: Heparin Sod 1000 units/ml 10ml IV PRN (13:16)
--- NOTE | 2018-07-21 14:52 | NUR ---
NURSE NOTES: Patient has an order for dialysis on 07/22 with [facility]. RN contacted [facility] about dialysis order.
[2018-07-21 15:45] VITALS: BP 133/73
--- NOTE | 2018-07-21 18:20 | NUR ---
CASE MANAGEMENT:REVIEW 07/21/18 SI: PLEURAL EFF. UTI. NSTEMI 97.5 70 18 133/73 96% ON RA IS: PROCRIT SQ MWF LEVAQUIN PO QOD NORVASC PO BID ASA PO QD COREG PO Q12 LISINOPRIL PO QD PROTONIX PO QD HEPARIN SQ Q12HRS : TELEMETRY STATUS
--- NOTE | 2018-07-21 18:23 | NUR ---
DISCHARGE PLANNING ENVIRONMENTAL ENGINEER SCIENTIST SPOKE WITH JUAN ANTONIO AT [facility] WHO STATED PATIENT CAN RETURN UPON DISCHARGE PER JUAN ANTONIO DIALYSIS TRANSPORTATION WILL BE ARRANGED PATIENT GOES TO DIALYSIS AT RENAL [facility]ARE T: [phone] [facility] [id number] [phone]
--- NOTE | 2018-07-21 19:26 | NUR ---
NURSE NOTES: HAND-OFF: Report given to CHAPIS Solano.
[2018-07-21 20:00] VITALS: BP 130/76
[2018-07-21] MEDS: Dyna-Hex 2% Top Sol 2oz TOPIC SCH (20:05)
--- NOTE | 2018-07-21 20:09 | NUR ---
NURSE NOTES: Received report from Ignacia NATION. Pt A+Ox4. Pt in stable condition w/no distress or discomfort. Pt on 2L nasal cannula. Continue to monitor.
--- NOTE | 2018-07-21 20:10 | NUR ---
NURSE NOTES: Additional note: MARCELO PICC line w/3 lumens dry and intact dressing unable to flush. Will notify MD in am. R arm shunt dry and intact dressing. Wound vac on L foot w/ dry and intact dressing connected to wound vac. Dressing changed every Mondays and .
[2018-07-21] MEDS: Epogen (for ESRD on dialysis) SUBQ SCH (20:56)
[2018-07-21] MEDS: Sennosides 8.6mg tab ORAL SCH (20:57)
[2018-07-22] VITALS: BP 118/59
--- NOTE | 2018-07-22 03:40 | NUR ---
NURSE NOTES: Patient awake, alert and verbally responsive. Pt made BM, sponge bath given, willl endorse to hold stool softeners. Special mattress applied for pressure sore management. Bed at lowest position, call light within reach. Will continue to monitor.
[2018-07-22 04:33] VITALS: BP 94/54
--- NOTE | 2018-07-22 06:32 | NUR ---
NURSE NOTES: Notified of MARCELO PICC line has resistance when flushed and looks like it has been pulled out. Saw in the record that it was inserted here from last admission 06/20/18. Awaiting orders. Addendum: 07/22/18 at 0653 by Rohan Avelar RN Dr hitchcock not Dr del angel
--- NOTE | 2018-07-22 07:03 | NUR ---
HAND-OFF: Report given to CHAPIS Beth. Endorsed plan of care.
--- NOTE | 2018-07-22 07:11 | NUR ---
NURSE NOTES: I received the patient resting in bed. Bed in the lowest position and call light within reach. Patient does not display any signs of distress or SOB. I will continue to monitor the patient and implement care.
[2018-07-22 07:56] LABS: HEMATOCRIT 22.5 % (37.0-47.0); MEAN CORPUSCULAR VOLUME 88 FL (80-99); PLATELET COUNT 88 K/UL (150-450); RED BLOOD COUNT 2.55 M/UL (4.20-5.40); RED CELL DISTRIBUTION WIDTH 15.7 % (11.6-14.8); WHITE BLOOD COUNT 5.5 K/UL (4.8-10.8)
[2018-07-22 07:59] LABS: HEMOGLOBIN 6.9 G/DL (12.0-16.0)
[2018-07-22 08:00] VITALS: BP 103/61
[2018-07-22 08:03] LABS: ALANINE AMINOTRANSFERASE 16 U/L (12-78); ALBUMIN 1.8 G/DL (3.4-5.0); ALBUMIN/GLOBULIN RATIO 0.4 (1.0-2.7); ALKALINE PHOSPHATASE 155 U/L (46-116); ANION GAP 11 mmol/L (5-15); ASPARTATE AMINO TRANSFERASE 19 U/L (15-37); BILIRUBIN,TOTAL 0.3 MG/DL (0.2-1.0); BLOOD UREA NITROGEN 52 mg/dL (7-18); CALCIUM 8.6 MG/DL (8.5-10.1); CARBON DIOXIDE 27 MMOL/L (21-32); CHLORIDE 102 MMOL/L (98-107); CREATININE 5.1 MG/DL (0.55-1.30); PHOSPHORUS 4.4 MG/DL (2.5-4.9); POTASSIUM 4.4 MMOL/L (3.5-5.1); SODIUM 140 MMOL/L (136-145)
--- NOTE | 2018-07-22 08:45 | NUR ---
NURSE NOTES: [facility] contacted about patient's dialysis order for today. I will await a return call from the oncall nurse.
[2018-07-22] MEDS: Heparin 5000 units/ml inj SUBQ SCH ×2 (09:00→20:35)
[2018-07-22] MEDS: Lisinopril 20mg tab ORAL SCH (09:00)
[2018-07-22] MEDS: Carvedilol 6.25mg Tab ORAL SCH ×2 (09:00→20:32)
[2018-07-22] MEDS: Docusate 100mg cap ORAL SCH ×4 (09:00→17:16)
[2018-07-22] MEDS: Aspirin Baby 81mg ORAL SCH (09:00)
--- NOTE | 2018-07-22 09:00 | NUR ---
NURSE NOTES: Dr. Fuller left a message about patients hemoglobin level. I will await doctor's return phone call. Addendum: 07/22/18 at 1200 by CHICO DIGGS RN Dr. Fuller called back and is aware of patient's hemoglobin level and that her PICC line is not flushing. He did not give any new orders. He said he would be in later.
--- NOTE | 2018-07-22 09:37 | NUR ---
RD ASSESSMENT & RECOMMENDATIONS SEE CARE ACTIVITY FOR COMPLETE ASSESSMENT DAILY ESTIMATED NEEDS: Needs based on ESRD on HD, Wounds, (Adj Wt 62kg) 24-30 kcals/kg 3511-2173 total kcals 1.25-2 g protein/kg 76-124 g total protein Fluid per MD, on HD NUTRITION DIAGNOSIS: 1) Increased kcal, pro needs R/T wound healing and renal dysfunction as evidenced by pt w/ left heel, sacral and lt ischial wounds, w/ ESRD on HD. . CURRENT DIET:RENAL / CCHO MED diet w/ HTL PO DIET RECOMMENDATIONS: CCHO MEDIUM/ RENAL/ texture per SPEECH AND DRAMA TEACHER + high prot snacks BID ADDITIONAL RECOMMENDATIONS: 1) Wound healing: Continue Nephrovite x 1, add Dimitry 1pkt BID 2) Obtain dry wt post HD on a calibrated bed scale 3) Monitor renal fxn and lytes closely 4) SPEECH AND DRAMA TEACHER evaluation for appropriate texure : pt on HTL at this time. During recent adm, pt on thin liquid . .
[2018-07-22] MEDS: Nephrovite tab (Rena-Vite) ORAL SCH (09:56)
[2018-07-22 12:00] VITALS: BP 115/59
--- NOTE | 2018-07-22 14:37 | Nephrology Progress Note ---
Assessment/Plan Plan Arranging Outpatient HD+ Wound VaC BG 180 on IV Dextrose. DC IV Dextrose and monitor accuchecks. 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 E Rt. BKA clean. Wound Vac arranged Objective Objective Last 24 Hour Vital Signs Date Time Temp Pulse Resp B/P (MAP) Pulse Ox O2 Delivery O2 Flow Rate FiO2 07/22/18 12:00 97.1 66 20 115/59 (77) 98 07/22/18 11:36 64 07/22/18 09:00 Room Air 07/22/18 09:00 103/61 07/22/18 09:00 71 103/61 07/22/18 09:00 71 103/61 07/22/18 08:00 97.0 71 23 103/61 (75) 100 07/22/18 07:50 64 07/22/18 04:33 97.0 67 20 94/54 (67) 97 07/22/18 04:00 66 07/22/18 00:00 97.7 69 20 118/59 (78) 100 07/22/18 00:00 76 07/21/18 21:00 Room Air 07/21/18 20:55 69 130/76 07/21/18 20:00 72 07/21/18 20:00 98.1 69 20 130/76 (94) 96 07/21/18 17:16 70 133/73 07/21/18 15:45 97.5 70 18 133/73 (93) 96 07/21/18 15:11 72 Intake and Output 07/21/18 07/22/18 19:00 07:00 Intake Total 360 ml 240 ml Balance 360 ml 240 ml Intake Oral 360 ml 240 ml # Voids 1 3 # Bowel Movements 3 4 Laboratory Tests 07/22/18 07:10: White Blood Count 5.5, Red Blood Count 2.55L, Hemoglobin 6.9*L, Hematocrit 22.5L , Mean Corpuscular Volume 88, Mean Corpuscular Hemoglobin 27.0, Mean Corpuscular Hemoglobin Concent 30.6L, Red Cell Distribution Width 15.7H, Platelet Count 88L, Mean Platelet Volume 8.9, Neutrophils (%) (Auto) , Lymphocytes (%) (Auto) , Monocytes (%) (Auto) , Eosinophils (%) (Auto) , Basophils (%) (Auto) , Differential Total Cells Counted 100, Neutrophils % ( Manual) 65, Lymphocytes % (Manual) 23, Monocytes % (Manual) 8, Eosinophils % ( Manual) 4H, Basophils % (Manual) 0, Band Neutrophils 0, Platelet Estimate DecreasedL, Platelet Morphology Normal, Hypochromasia 2+, Anisocytosis 1+, Sodium Level 140, Potassium Level 4.4, Chloride Level 102, Carbon Dioxide Level 27, Anion Gap 11, Blood Urea Nitrogen 52H, Creatinine 5.1H, Estimat Glomerular Filtration Rate 10.2, Glucose Level 134H, Calcium Level 8.6, Phosphorus Level 4.4, Total Bilirubin 0.3, Aspartate Amino Transf (AST/SGOT) 19, Alanine Aminotransferase (ALT/SGPT) 16, Alkaline Phosphatase 155H, Total Protein 6.7, Albumin 1.8L, Globulin 4.9, Albumin/Globulin Ratio 0.4L Height (Feet): 5 Height (Inches): 7.00 Weight (Pounds): 222 Brenda Fuller MD Jul 22, 2018 14:37
[2018-07-22 16:00] VITALS: BP 117/57
--- NOTE | 2018-07-22 19:17 | NUR ---
HAND-OFF: Report given to CHAPIS Solano.
--- NOTE | 2018-07-22 19:35 | NUR ---
NURSE NOTES: Received report from Ignacia NATION. Pt in stable condition w/ no signs of distress or discomfort. Pt resting in bed comfortably. Bed in low and locked position, call light within reach, bedside table within reach. Continue to monitor.
[2018-07-22 20:00] VITALS: BP 115/53
[2018-07-22] MEDS: Dyna-Hex 2% Top Sol 2oz TOPIC SCH (20:32)
[2018-07-22] MEDS: Sennosides 8.6mg tab ORAL SCH (20:35)
[2018-07-23] VITALS: BP 124/43
[2018-07-23 04:00] VITALS: BP 123/61
--- NOTE | 2018-07-23 07:35 | NUR ---
NURSE NOTES: Received report from Aleksandr RN. Pt in stable condition with no signs of distress or discomfort. Pt resting in bed comfortably. Bed in low and locked position, call light within reach, bedside table within reach. Continue to monitor.
--- NOTE | 2018-07-23 07:37 | NUR ---
HAND-OFF: Report given to linda munoz. endorsed plan of care.
[2018-07-23 08:00] VITALS: BP 109/53
[2018-07-23] MEDS: Carvedilol 6.25mg Tab ORAL SCH ×2 (09:00→21:27)
[2018-07-23] MEDS: Heparin 5000 units/ml inj SUBQ SCH ×2 (09:00→21:00)
[2018-07-23] MEDS: Lisinopril 20mg tab ORAL SCH (09:00)
[2018-07-23] MEDS: Docusate 100mg cap ORAL SCH ×3 (10:17→18:00)
[2018-07-23] MEDS: Aspirin Baby 81mg ORAL SCH (10:17)
[2018-07-23] MEDS: Nephrovite tab (Rena-Vite) ORAL SCH (10:18)
--- NOTE | 2018-07-23 10:23 | NUR ---
NURSE NOTES: Patient refused amlodipine, lisinopril, and coreg. Explained blood pressure 109/53 and heart rate 67 was within parameters of doctors and was needed. Patient still refused. heparing hold because plt was low.
[2018-07-23 12:00] VITALS: BP 116/58
--- NOTE | 2018-07-23 12:03 | Nephrology Progress Note ---
Assessment/Plan Plan Arranging Outpatient HD+ Wound VaC HB <7. HD tomorrow + transfusion. 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 E Rt. BKA clean. Wound Vac arranged Objective Objective Last 24 Hour Vital Signs Date Time Temp Pulse Resp B/P (MAP) Pulse Ox O2 Delivery O2 Flow Rate FiO2 07/23/18 09:00 Room Air 07/23/18 09:00 109/53 07/23/18 09:00 67 109/58 07/23/18 09:00 67 109/53 07/23/18 08:00 98.5 67 21 109/53 (71) 97 07/23/18 07:50 67 07/23/18 04:00 70 07/23/18 04:00 97.3 72 19 123/61 (81) 99 07/23/18 00:00 97.7 70 19 124/43 (70) 100 07/23/18 00:00 71 07/22/18 21:00 Room Air 07/22/18 20:32 70 115/53 07/22/18 20:00 71 07/22/18 20:00 98.0 70 20 115/53 (73) 96 07/22/18 17:16 65 117/57 07/22/18 16:00 97.1 65 20 117/57 (77) 98 07/22/18 15:43 66 Intake and Output 07/22/18 07/23/18 19:00 07:00 Intake Total 490 ml 240 ml Output Total 3020 ml Balance -2530 ml 240 ml Intake Oral 240 ml 240 ml Blood Product 250 ml Output Drainage Total 20 ml Hemodialysis UF 3000 ml # Voids 3 5 # Bowel Movements 3 5 Height (Feet): 5 Height (Inches): 7.00 Weight (Pounds): 222 Brenda Fuller MD Jul 23, 2018 12:03
[2018-07-23 16:00] VITALS: BP 108/51
--- NOTE | 2018-07-23 16:30 | NUR ---
CASE MANAGEMENT:REVIEW 07/23/18 SI: PLEURAL EFF. UTI. NSTEMI T 98.3 HR 68 RR 20 B/P 116/58 SATS 97% ON RA NO LABS TODAY IS: PROCRIT SQ MWF LEVAQUIN PO QOD NORVASC PO BID ASA PO QD COREG PO Q12 LISINOPRIL PO QD PROTONIX PO QD HEPARIN SQ Q12HRS : TELEMETRY STATUS
--- NOTE | 2018-07-23 16:37 | NUR ---
NURSE NOTES: Called [facility] regarding order for HD tomorrow. Per [facility] the nurse injection molding machine tender will call us back for schedule time tomorrow. Awaiting for response.
--- NOTE | 2018-07-23 18:10 | NUR ---
NURSE NOTES: S/p blood transfusion at 18:10 of 1 pack of PRBC. Patient states she is no distress or pain. No adverse reaction noted. Patient tolerated well.
--- NOTE | 2018-07-23 19:30 | NUR ---
NURSE NOTES: Received report from CHAPIS [place]. Patient in bed resting. No active s/s cardiac, respiratory distress noticed at this time. Denies pain at this time. Bed in lowest position, side rails up x2, call light within reach. Will continue to monitor and follow plan of care.
--- NOTE | 2018-07-23 19:51 | NUR ---
HAND-OFF: Report given to Richmond NATION. Pt. remain stable.
[2018-07-23 20:00] VITALS: BP 114/68
--- NOTE | 2018-07-23 20:06 | Cardiology Progress Note ---
Assessment/Plan Assessment/Plan The patient is seen and examined, full consult note will be dictated shortly. Objective Last 24 Hour Vital Signs Date Time Temp Pulse Resp B/P (MAP) Pulse Ox O2 Delivery O2 Flow Rate FiO2 07/23/18 16:00 98.3 67 20 108/51 (70) 100 07/23/18 15:37 67 07/23/18 13:41 98.3 07/23/18 12:00 98.3 68 20 116/58 (77) 97 07/23/18 11:47 66 07/23/18 09:00 Room Air 07/23/18 09:00 109/53 07/23/18 09:00 67 109/58 07/23/18 09:00 67 109/53 07/23/18 08:00 98.5 67 21 109/53 (71) 97 07/23/18 07:50 67 07/23/18 04:00 70 07/23/18 04:00 97.3 72 19 123/61 (81) 99 07/23/18 00:00 97.7 70 19 124/43 (70) 100 07/23/18 00:00 71 07/22/18 21:00 Room Air 07/22/18 20:32 70 115/53 Intake and Output 07/22/18 07/23/18 19:00 07:00 Intake Total 490 ml 240 ml Output Total 3020 ml Balance -2530 ml 240 ml Intake Oral 240 ml 240 ml Blood Product 250 ml Output Drainage Total 20 ml Hemodialysis UF 3000 ml # Voids 3 5 # Bowel Movements 3 5 Microbiology Date/Time Source Procedure Growth Status 07/23/18 04:00 Stool Clostridium difficile Toxin Assay - Final Complete Michele Copeland MD Jul 23, 2018 20:06
[2018-07-23] MEDS: Sennosides 8.6mg tab ORAL SCH (21:00)
[2018-07-23] MEDS: Dyna-Hex 2% Top Sol 2oz TOPIC SCH (21:18)
[2018-07-24] VITALS: BP 121/68
[2018-07-24 04:00] VITALS: BP 114/63
[2018-07-24] MEDS ORDERED: Heparin Sod 1000 units/ml 10ml IV PRN (06:00)
--- NOTE | 2018-07-24 07:24 | NUR ---
HAND-OFF: Report given to Reuben NATION.
--- NOTE | 2018-07-24 07:33 | NUR ---
NURSE NOTES: Received report from CHAPIS Lyons. Patient in bed resting, HR 71 w/ SR. No active s/s cardiac, respiratory distress noticed at this time. Denies pain at this time. Bed in lowest position, side rails up x2, call light within reach. Endorsed HD for today 07/24/18. Will continue to monitor.
[2018-07-24 08:00] VITALS: BP 110/70
[2018-07-24] MEDS: Heparin 5000 units/ml inj SUBQ SCH ×2 (08:10→20:54)
[2018-07-24] MEDS: Docusate 100mg cap ORAL SCH ×4 (08:16→18:00)
[2018-07-24] MEDS: Aspirin Baby 81mg ORAL SCH (08:17)
[2018-07-24] MEDS: Nephrovite tab (Rena-Vite) ORAL SCH (08:17)
[2018-07-24 08:28] LABS: HEMATOCRIT 27.9 % (37.0-47.0); HEMOGLOBIN 8.3 G/DL (12.0-16.0); MEAN CORPUSCULAR VOLUME 91 FL (80-99); PLATELET COUNT 97 K/UL (150-450); RED BLOOD COUNT 3.06 M/UL (4.20-5.40); RED CELL DISTRIBUTION WIDTH 16.7 % (11.6-14.8); WHITE BLOOD COUNT 5.9 K/UL (4.8-10.8)
[2018-07-24] MEDS: Lisinopril 20mg tab ORAL SCH (09:00)
[2018-07-24] MEDS: Carvedilol 6.25mg Tab ORAL SCH ×2 (09:00→20:54)
--- NOTE | 2018-07-24 09:10 | NUR ---
NURSE NOTES: Called [facility] nephrology tele [phone]. Spoke with Lupe and informed patient scheduled for 07/24/[address] De Leon. Will continue to monitor.
--- NOTE | 2018-07-24 09:31 | NUR ---
CASE MANAGEMENT:REVIEW 07/24/18 SI: NSTEMI. UTI. PLEURAL EFF 96.8 71 21 114/63 97% ON RA H/H-8.3/27.9 PLT-97 BUN+52 CR+5.1 IS: LEVAQUIN PO QD NORVASC PO BID ASA PO QD COREG PO Q12 LISINOPRIL PO QD : TELEMETRY STATUS DCP: FROM [facility]
--- NOTE | 2018-07-24 09:36 | NUR ---
DISCHARGE PLANNING PATIENT CAME FROM SNF WITH WOUND VAC PATIENT HAS ASSIGNED DAYS AND TIMES AT RENAL FOR DIALYSIS LEAD TECHNOLOGIST IN [facility] FOR DR HAYES REQUESTING DISCHARGE TODAY AFTER DIALYSIS AWAITING RESPONSE
[2018-07-24 11:30] LABS: ANION GAP 10 mmol/L (5-15); BLOOD UREA NITROGEN 48 mg/dL (7-18); CALCIUM 8.8 MG/DL (8.5-10.1); CARBON DIOXIDE 27 MMOL/L (21-32); CHLORIDE 103 MMOL/L (98-107); CREATININE 4.9 MG/DL (0.55-1.30); PHOSPHORUS 4.8 MG/DL (2.5-4.9); POTASSIUM 4.7 MMOL/L (3.5-5.1); SODIUM 139 MMOL/L (136-145)
[2018-07-24 12:00] VITALS: BP 105/49
--- NOTE | 2018-07-24 14:18 | Nephrology Progress Note ---
Assessment/Plan Plan Arranging Outpatient HD+ Wound VaC HB <7. HD tomorrow + transfusion. 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 On HD now CV RR Lungs CTA Abd SNT. E Rt. BKA clean. Wound Vac arranged Objective Objective Last 24 Hour Vital Signs Date Time Temp Pulse Resp B/P (MAP) Pulse Ox O2 Delivery O2 Flow Rate FiO2 07/24/18 12:00 73 07/24/18 12:00 97.1 71 18 105/49 (67) 95 07/24/18 09:00 Room Air 07/24/18 09:00 110/70 07/24/18 09:00 70 110/71 07/24/18 09:00 70 110/71 07/24/18 08:00 96.6 70 18 110/70 (83) 97 07/24/18 08:00 70 07/24/18 04:00 96.8 71 21 114/63 (80) 97 07/24/18 04:00 72 07/24/18 00:00 96.8 74 20 121/68 (85) 98 07/24/18 00:00 72 07/23/18 21:27 68 114/68 07/23/18 21:00 Room Air 07/23/18 20:00 98.2 68 20 114/68 (83) 98 07/23/18 20:00 70 07/23/18 16:00 98.3 67 20 108/51 (70) 100 07/23/18 15:37 67 Intake and Output 07/23/18 07/24/18 19:00 07:00 Intake Total 360 ml 100 ml Balance 360 ml 100 ml Intake Oral 360 ml 100 ml # Voids 2 # Bowel Movements 4 4 Laboratory Tests 07/24/18 06:55: White Blood Count 5.9, Red Blood Count 3.06L, Hemoglobin 8.3L, Hematocrit 27.9L , Mean Corpuscular Volume 91, Mean Corpuscular Hemoglobin 27.1, Mean Corpuscular Hemoglobin Concent 29.7L, Red Cell Distribution Width 16.7H, Platelet Count 97L, Mean Platelet Volume 9.5, Neutrophils (%) (Auto) , Lymphocytes (%) (Auto) , Monocytes (%) (Auto) , Eosinophils (%) (Auto) , Basophils (%) (Auto) , Differential Total Cells Counted 100, Neutrophils % ( Manual) 71, Lymphocytes % (Manual) 14L, Monocytes % (Manual) 11H, Eosinophils % (Manual) 4H, Basophils % (Manual) 0, Band Neutrophils 0, Platelet Estimate DecreasedL, Platelet Morphology Normal, Hypochromasia 1+, Anisocytosis 1+, Sodium Level 139, Potassium Level 4.7, Chloride Level 103, Carbon Dioxide Level 27, Anion Gap 10, Blood Urea Nitrogen 48H, Creatinine 4.9H, Estimat Glomerular Filtration Rate 10.7, Glucose Level 196H, Calcium Level 8.8, Phosphorus Level 4.8 07/24/18 14:00: White Blood Count [Pending], Red Blood Count [Pending], Hemoglobin [Pending], Hematocrit [Pending], Mean Corpuscular Volume [Pending], Mean Corpuscular Hemoglobin [Pending], Mean Corpuscular Hemoglobin Concent [Pending], Red Cell Distribution Width [Pending], Platelet Count [Pending], Mean Platelet Volume [ Pending], Neutrophils (%) (Auto) [Pending], Lymphocytes (%) (Auto) [Pending], Monocytes (%) (Auto) [Pending], Eosinophils (%) (Auto) [Pending], Basophils (%) (Auto) [Pending] Height (Feet): 5 Height (Inches): 7.00 Weight (Pounds): 222 Brenda Fuller MD Jul 24, 2018 14:18
[2018-07-24 14:20] LABS: HEMATOCRIT 25.1 % (37.0-47.0); HEMOGLOBIN 7.6 G/DL (12.0-16.0); MEAN CORPUSCULAR VOLUME 90 FL (80-99); PLATELET COUNT 98 K/UL (150-450); RED BLOOD COUNT 2.78 M/UL (4.20-5.40); RED CELL DISTRIBUTION WIDTH 15.9 % (11.6-14.8)
--- NOTE | 2018-07-24 14:21 | NUR ---
NURSE NOTES: Wound vac changed on back of right heel 3.4 cm x2.7 cm. Patient in stable condition. Denies pain at this time. Will continue to monitor.
--- NOTE | 2018-07-24 14:22 | NUR ---
NURSE NOTES: Patient received HD 2.5 L out. Patient in stable condition. BP 118/60, HR 72 with SR.
--- NOTE | 2018-07-24 14:35 | NUR ---
NURSE NOTES:WOUND CARE FOLLOW-UP NOTES:NPWT L Heel changed today. Approx 25 ml serosanguineous exudate noted in canister.L heel wound resolving (L)2.4cm x (W)3.7cm x (D) 0.3cm.Wound bed granular ,(+) maceration along borders. No odor noted. Wound cleansed with Saline.Cavilon Skin Barrier applied to macerated borders and periwound. Transparent drsg applied periwound and draped to dorsal aspect L foot. Granulofoam packing cut to conform to size of wound then bridged over transparent drsg to dorsal aspect of L foot .NPWT resumed at 125mm/Hg to continuous suction. Pt tolerated wound care without complaints of pain.
[2018-07-24 16:00] VITALS: BP 111/57
--- NOTE | 2018-07-24 19:36 | NUR ---
HAND-OFF: Report given to CHAPIS Lyons. Patient in stable condition.
[2018-07-24 20:00] VITALS: BP 127/57
[2018-07-24] MEDS: Epogen (for ESRD on dialysis) SUBQ SCH (20:54)
[2018-07-24] MEDS: Sennosides 8.6mg tab ORAL SCH (20:54)
[2018-07-24] MEDS: Dyna-Hex 2% Top Sol 2oz TOPIC SCH (20:54)
[2018-07-25] VITALS: BP 110/56
[2018-07-25 04:00] VITALS: BP 112/60
--- NOTE | 2018-07-25 07:10 | NUR ---
HAND-OFF: Report given to Dory NATION.
--- NOTE | 2018-07-25 07:15 | NUR ---
NURSE NOTES: Report received from CHAPIS Mckeon. Pt is resting in bed, sleeping. No signs and symptoms of acute distress at this time. Bed is in lowest position with brake engaged, side rails up x2, and bed alarm on. Call light within reach. Will continue to monitor and follow plan of care.
[2018-07-25 08:00] VITALS: BP 150/54
[2018-07-25] MEDS: Nephrovite tab (Rena-Vite) ORAL SCH (08:49)
[2018-07-25] MEDS: Carvedilol 6.25mg Tab ORAL SCH ×2 (08:49→21:00)
[2018-07-25] MEDS: Aspirin Baby 81mg ORAL SCH (08:49)
[2018-07-25] MEDS: Heparin 5000 units/ml inj SUBQ SCH ×2 (08:50→21:00)
[2018-07-25] MEDS: Lisinopril 20mg tab ORAL SCH (08:50)
[2018-07-25] MEDS: Docusate 100mg cap ORAL SCH ×3 (08:50→17:43)
[2018-07-25 12:00] VITALS: BP 147/60
--- NOTE | 2018-07-25 14:49 | Nephrology Progress Note ---
Assessment/Plan Plan Arranging Outpatient HD+ Wound VaC HD MWF. 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 CV RR Lungs CTA Abd SNT. E Rt. BKA clean. Objective Objective Last 24 Hour Vital Signs Date Time Temp Pulse Resp B/P (MAP) Pulse Ox O2 Delivery O2 Flow Rate FiO2 07/25/18 12:00 66 07/25/18 12:00 97.4 64 18 147/60 (89) 97 07/25/18 09:00 Room Air 07/25/18 08:50 150/54 07/25/18 08:49 91 150/54 07/25/18 08:49 91 150/54 07/25/18 08:00 97.5 91 18 150/54 (86) 98 07/25/18 08:00 71 07/25/18 04:00 98.0 90 18 112/60 (77) 94 07/25/18 04:00 76 07/25/18 00:00 97.5 93 18 110/56 (74) 95 07/25/18 00:00 80 07/24/18 21:00 Room Air 07/24/18 20:00 97.2 82 18 127/57 (80) 95 07/24/18 20:00 76 07/24/18 18:00 71 111/57 07/24/18 16:00 71 07/24/18 16:00 97.3 71 18 111/57 (75) 95 Intake and Output 07/24/18 07/25/18 18:59 06:59 Intake Total 540 ml Balance 540 ml Intake Oral 540 ml # Voids 1 2 # Bowel Movements 4 7 Height (Feet): 5 Height (Inches): 7.00 Weight (Pounds): 222 Objective Blind CV RR Lungs CTA Abd SNT. BS + E No CCE Brenda Fuller MD Jul 25, 2018 14:49
[2018-07-25 16:00] VITALS: BP 110/52
--- NOTE | 2018-07-25 19:11 | NUR ---
HAND-OFF: Report given to CHAPIS Mckeon.
[2018-07-25 20:00] VITALS: BP 132/49
[2018-07-25] MEDS: Dyna-Hex 2% Top Sol 2oz TOPIC SCH (20:00)
[2018-07-25] MEDS: Sennosides 8.6mg tab ORAL SCH (21:00)
--- NOTE | 2018-07-25 21:45 | NUR ---
NURSE NOTES: Followed up with Dr. Fuller regarding removal of picc line. Was given the okay to remove and culture was sent to lab.
[2018-07-26] VITALS: BP 129/55
[2018-07-26 04:00] VITALS: BP 131/57
[2018-07-26 07:30] LABS: HEMATOCRIT 26.2 % (37.0-47.0); HEMOGLOBIN 7.8 G/DL (12.0-16.0); MEAN CORPUSCULAR VOLUME 91 FL (80-99); PLATELET COUNT 98 K/UL (150-450); RED BLOOD COUNT 2.87 M/UL (4.20-5.40); RED CELL DISTRIBUTION WIDTH 17.1 % (11.6-14.8); WHITE BLOOD COUNT 5.4 K/UL (4.8-10.8)
[2018-07-26 07:38] LABS: ANION GAP 7 mmol/L (5-15); BLOOD UREA NITROGEN 43 mg/dL (7-18); CALCIUM 8.8 MG/DL (8.5-10.1); CARBON DIOXIDE 28 MMOL/L (21-32); CHLORIDE 103 MMOL/L (98-107); CREATININE 4.8 MG/DL (0.55-1.30); POTASSIUM 4.6 MMOL/L (3.5-5.1); SODIUM 137 MMOL/L (136-145)
[2018-07-26 08:00] VITALS: BP 115/51
--- NOTE | 2018-07-26 08:16 | NUR ---
HAND-OFF: Report given to Reuben NATION.
--- NOTE | 2018-07-26 08:23 | NUR ---
NURSE NOTES: Received report from CHAPIS Lyons. Patient in bed resting. No active s/s cardiac, respiratory distress noticed at this time. Bed in lowest position, side rails up x2, call light within reach. SR with 67. Wound vac on. Will continue to monitor.
--- NOTE | 2018-07-26 08:56 | NUR ---
NURSE NOTES: Called [facility] nephrology tel: [phone]. Spoke with Perla and informed patient schedule for 07/26/[address] De Leon. Will continue to monitor
[2018-07-26] MEDS: Carvedilol 6.25mg Tab ORAL SCH ×2 (09:00→21:00)
[2018-07-26] MEDS: Lisinopril 20mg tab ORAL SCH (09:00)
[2018-07-26] MEDS: Heparin 5000 units/ml inj SUBQ SCH ×2 (09:00→21:00)
[2018-07-26] MEDS: Docusate 100mg cap ORAL SCH ×3 (09:00→18:00)
[2018-07-26] MEDS: Aspirin Baby 81mg ORAL SCH (09:38)
[2018-07-26] MEDS: Nephrovite tab (Rena-Vite) ORAL SCH (09:38)
--- NOTE | 2018-07-26 10:14 | General Surgery Progress Note ---
General Surgery-Progress Note Subjective Additional Comments no acute events. wound changes going well. Objective Last 24 Hour Vital Signs Date Time Temp Pulse Resp B/P (MAP) Pulse Ox O2 Delivery O2 Flow Rate FiO2 07/26/18 08:00 97.2 71 21 115/51 (72) 98 07/26/18 04:00 67 07/26/18 04:00 98.0 79 18 131/57 (81) 97 07/26/18 00:00 97.5 80 18 129/55 (79) 96 07/26/18 00:00 71 07/25/18 21:00 71 132/49 07/25/18 21:00 Room Air 07/25/18 20:00 97.2 71 18 132/49 (76) 97 07/25/18 20:00 70 07/25/18 18:00 73 110/52 07/25/18 16:00 73 07/25/18 16:00 97.4 67 18 110/52 (71) 99 07/25/18 12:00 66 07/25/18 12:00 97.4 64 18 147/60 (89) 97 I&O Intake and Output 07/25/18 07/26/18 19:00 07:00 Intake Total 360 ml Balance 360 ml Intake Oral 360 ml # Voids 1 # Bowel Movements 4 4 Dressing: dry Wound: clean Drains: wound vac Cardiovascular: RSR Respiratory: clear Abdomen: soft, flat, present bowel sounds Extremities: other Laboratory Tests Test 07/26/18 06:37 White Blood Count 5.4 K/UL (4.8-10.8) Red Blood Count 2.87 M/UL (4.20-5.40) L Hemoglobin 7.8 G/DL (12.0-16.0) L Hematocrit 26.2 % (37.0-47.0) L Mean Corpuscular Volume 91 FL (80-99) Mean Corpuscular Hemoglobin 27.2 PG (27.0-31.0) Mean Corpuscular Hemoglobin Concent 29.8 G/DL (32.0-36.0) L Red Cell Distribution Width 17.1 % (11.6-14.8) H Platelet Count 98 K/UL (150-450) L Mean Platelet Volume 9.5 FL (6.5-10.1) Neutrophils (%) (Auto) % (45.0-75.0) Lymphocytes (%) (Auto) % (20.0-45.0) Monocytes (%) (Auto) % (1.0-10.0) Eosinophils (%) (Auto) % (0.0-3.0) Basophils (%) (Auto) % (0.0-2.0) Differential Total Cells Counted 100 Neutrophils % (Manual) 68 % (45-75) Lymphocytes % (Manual) 21 % (20-45) Monocytes % (Manual) 6 % (1-10) Eosinophils % (Manual) 4 % (0-3) H Basophils % (Manual) 1 % (0-2) Band Neutrophils 0 % (0-8) Platelet Estimate Decreased L Platelet Morphology Normal Hypochromasia 3+ Anisocytosis 1+ Sodium Level 137 MMOL/L (136-145) Potassium Level 4.6 MMOL/L (3.5-5.1) Chloride Level 103 MMOL/L (98-107) Carbon Dioxide Level 28 MMOL/L (21-32) Anion Gap 7 mmol/L (5-15) Blood Urea Nitrogen 43 mg/dL (7-18) H Creatinine 4.8 MG/DL (0.55-1.30) H Estimat Glomerular Filtration Rate 10.9 mL/min (>60) Glucose Level 144 MG/DL (74-106) H Calcium Level 8.8 MG/DL (8.5-10.1) Plan Problems: (1) Left heel unstageable pressure ulcer with black eschar adhered to wound bed Assessment & Plan: Stage IV Full thickness pressure injury L heel (L)3.8cm x (W )3.6cm x (D)0.7 cm. Wound wound bed granular at base (+) maceration along borders. Small amt sanguineous exudate noted from wound. Periwound skin is dry and flaky without erythema. No odor noted from wound. Transparent drsg applied along borders of wound and draped to sylvester/ distal L tibia. Granulofoam packing placed within wound and bridged over transparent drape to sylvester/distal L tibia and vac placed at this end. Abd pad then placed between Vac tubing and pt's skin to prevent pressure and wrapped with soft kerlix. L lower ext edematous L heel off-loaded with pillow. Intertriginous dermatitis with erythema and scattered satellite lesions noted to medial and posterior aspects of both upper thighs and to buttocks. Areas of maroon discoloration noted to sacrum ,R and L buttocks. R AKA stump edematous with dry, flaking skin noted. Serosanguineous exudate noted in canister. L heel wound resolving and now (L) 2.4cm x (W)3.7cm x (D) 0.3cm. Wound bed granular ,(+) maceration along borders. No odor noted. NPWT at 125mm/Hg to continuous suction. Dressing changes going well Tx.Plan: Cleanse L heel wound with Saline.Apply Cavilon Skin Barrier along edges and periwound .Place transparent drsg around wound. Pack with Granulofoam packing conformed to shape of wound.Bridge foam away from heel and place. Vac away from heel at either sylvester L tibia or dorsal L foot. NPWT settings at 125mm/Hg to continuous suction. Change NPWT on Mondays and and PRN.(Please remove Foam packing if NPWT is off for 2hours,place Saline wet to dry packing and cover with Optifoam .Notify Wound Nurse SHIRAZ) Apply Triad Paste to buttocks,medial and posterior aspects of both thighs with each perineal care. Air fluidized mattress. Off-load L heel with Pillow. Reposition at least every 2hours or as tolerated. Tuan Luis Jul 26, 2018 10:14
[2018-07-26 12:00] VITALS: BP 98/52
--- NOTE | 2018-07-26 13:00 | NUR ---
NURSE NOTES: Patient received HD 2.5 L out.
[2018-07-26] MEDS ORDERED: Tubing IV Blood Pump IV ONE (14:40)
[2018-07-26] MEDS ORDERED: NS 500ML ONE (14:40)
[2018-07-26] MEDS ORDERED: Heparin Sod 1000 units/ml 10ml IV SCH (14:45)
[2018-07-26 16:00] VITALS: BP 111/62
--- NOTE | 2018-07-26 17:27 | Nephrology Progress Note ---
Assessment/Plan Plan Arranging Outpatient HD+ Wound [facility] HD MWF. 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 CV RR Lungs CTA Abd SNT. E Rt. BKA clean. Objective Objective Last 24 Hour Vital Signs Date Time Temp Pulse Resp B/P (MAP) Pulse Ox O2 Delivery O2 Flow Rate FiO2 07/26/18 12:00 69 07/26/18 12:00 97.4 70 21 98/52 (67) 95 07/26/18 09:00 115/51 07/26/18 09:00 71 115/51 07/26/18 09:00 71 115/51 07/26/18 09:00 Room Air 07/26/18 08:00 97.2 71 21 115/51 (72) 98 07/26/18 08:00 67 07/26/18 04:00 67 07/26/18 04:00 98.0 79 18 131/57 (81) 97 07/26/18 00:00 97.5 80 18 129/55 (79) 96 07/26/18 00:00 71 07/25/18 21:00 71 132/49 07/25/18 21:00 Room Air 07/25/18 20:00 97.2 71 18 132/49 (76) 97 07/25/18 20:00 70 07/25/18 18:00 73 110/52 Intake and Output 07/25/18 07/26/18 18:59 06:59 Intake Total 360 ml Balance 360 ml Intake Oral 360 ml # Voids 1 # Bowel Movements 4 4 Laboratory Tests 07/26/18 06:37: White Blood Count 5.4, Red Blood Count 2.87L, Hemoglobin 7.8L, Hematocrit 26.2L , Mean Corpuscular Volume 91, Mean Corpuscular Hemoglobin 27.2, Mean Corpuscular Hemoglobin Concent 29.8L, Red Cell Distribution Width 17.1H, Platelet Count 98L, Mean Platelet Volume 9.5, Neutrophils (%) (Auto) , Lymphocytes (%) (Auto) , Monocytes (%) (Auto) , Eosinophils (%) (Auto) , Basophils (%) (Auto) , Differential Total Cells Counted 100, Neutrophils % ( Manual) 68, Lymphocytes % (Manual) 21, Monocytes % (Manual) 6, Eosinophils % ( Manual) 4H, Basophils % (Manual) 1, Band Neutrophils 0, Platelet Estimate DecreasedL, Platelet Morphology Normal, Hypochromasia 3+, Anisocytosis 1+, Sodium Level 137, Potassium Level 4.6, Chloride Level 103, Carbon Dioxide Level 28, Anion Gap 7, Blood Urea Nitrogen 43H, Creatinine 4.8H, Estimat Glomerular Filtration Rate 10.9, Glucose Level 144H, Calcium Level 8.8 Height (Feet): 5 Height (Inches): 7.00 Weight (Pounds): 221 Objective Blind CV RR Lungs CTA Abd SNT. BS + E No CCE Brenda Fuller MD Jul 26, 2018 17:27
[2018-07-26] MEDS ORDERED: NORVASC5 MG ORAL (17:34)
[2018-07-26] MEDS ORDERED: SENNA-GEN8.6 M1 ORAL (17:34)
[2018-07-26] MEDS ORDERED: NEPHROVITE1 TAB ORAL (17:34)
[2018-07-26] MEDS ORDERED: GABAPENTIN100 MG ORAL (17:34)
[2018-07-26] MEDS ORDERED: PROTONIX40 MG ORAL (17:34)
[2018-07-26] MEDS ORDERED: HIBICLENS118 ML TOPIC (17:34)
[2018-07-26] MEDS ORDERED: ACETAMINOPHEN325 M1 ORAL (17:34)
[2018-07-26] MEDS ORDERED: MIRALAX17 GM ORAL (17:34)
[2018-07-26] MEDS ORDERED: DOK100 M1 ORAL (17:34)
[2018-07-26] MEDS ORDERED: ASPIRIN81 MG ORAL (17:34)
[2018-07-26] MEDS ORDERED: LISINOPRIL20 MG ORAL (17:34)
[2018-07-26] MEDS ORDERED: COREG6.25 MG ORAL (17:34)
[2018-07-26] MEDS ORDERED: HEPARIN SO5000 UNIT2 SUBQ (17:34)
[2018-07-26 20:00] VITALS: BP 113/60
--- NOTE | 2018-07-26 20:04 | NUR ---
HAND-OFF: Report given to CHAPIS Buchanan.
--- NOTE | 2018-07-26 20:14 | NUR ---
NURSE NOTES: Pt received from Reuben RN alert and oriented x3 with no complaints or s/s of pain, SOB, or n/v. IV site asymptomatic and patent. Bed in lowest position, call light and belongings within reach.
[2018-07-26] MEDS: Sennosides 8.6mg tab ORAL SCH (21:00)
[2018-07-26] MEDS: Dyna-Hex 2% Top Sol 2oz TOPIC SCH (21:38)
[2018-07-26] MEDS: Epogen (for ESRD on dialysis) SUBQ SCH (21:40)
[2018-07-27] VITALS: BP 102/59
[2018-07-27 04:00] VITALS: BP 113/61
--- NOTE | 2018-07-27 07:24 | NUR ---
NURSE NOTES: Report received from CHAPIS Buchanan. Patient awake, able to communicate her needs. In RA, denies any pain or SOB. Set up Patient's breakfast tray and explained position per clock method. IV patent. Bed on lowest position, brakes engaged, side rails upx2. Call light within easy reach.
--- NOTE | 2018-07-27 07:53 | NUR ---
HAND-OFF: Report given to Hina Guevara RN.
[2018-07-27 08:00] VITALS: BP 98/59
[2018-07-27] MEDS: Heparin 5000 units/ml inj SUBQ SCH ×2 (09:00→20:06)
[2018-07-27] MEDS: Docusate 100mg cap ORAL SCH ×3 (09:00→18:00)
[2018-07-27] MEDS: Lisinopril 20mg tab ORAL SCH (09:00)
[2018-07-27] MEDS: Carvedilol 6.25mg Tab ORAL SCH ×2 (09:00→21:38)
--- NOTE | 2018-07-27 09:39 | NUR ---
DISCHARGE ORDER NOTED FAXED CLINICALS TO [facility] T: [phone] F: [phone]....AWAITING BED ASSIGNMENT CALLED US RENAL TO CONFIRM CHAIR TIME...WAS ONLY ABLE TO LEAVE A MESSAGE RENAL CARE T: [phone] T--[facility] [phone]
[2018-07-27] MEDS: Aspirin Baby 81mg ORAL SCH (10:01)
[2018-07-27] MEDS: Nephrovite tab (Rena-Vite) ORAL SCH (10:01)
--- NOTE | 2018-07-27 10:22 | NUR ---
NURSE NOTES:WOUND CARE FOLLOW-UP NOTES:Pt seen seen for NPWT to be changed.NPWT canister without exudate. NPWT removed. L hel wound resolving, wound bed granular(L)2.4cm x (W)3.6cm x (D)0.2cm . Maceration along borders resolving. Periwound skin dry /flaky without erythema.No odor noted.Borders and periwound prepped with Cavilon Skin Barrier .Transparent drsg then placed periwound and bridged to sylvester L tibia. L heel wound packed with granulofoam [packing to conform to wound and bridged to sylvester L tibia and covered. NPWT then resumed at 125mm/Hg to continuous suction.Pt tolerated wound care without complaints of pain. Intertriginous Dermatitis bilat groin,Medial /posterior aspects of both thighs and buttocks .Pt declining to have Triad paste applied to buttocks and insisting on A and D oint. Pt insists Triad is cause of Dermatitis . Pt has been educated dermatitis resulting from incontinence and encouraged to allow staff to apply Triad. Pt has also had been educated of risks for further Skin decline. Tx.Plan:NPWT at 125mm/Hg to continuous suction. Change every Mondays and . Please remove Granulofoam packing if NPWT is off for 2 hours or more and pack with Saline moist gauze and cover with Optifoam .(Notify Wound Nurse SHIRAZ if unable to reapply wound vac.) Apply Moisture Barrier Paste to bilat groin ,Buttocks and medial/posterior aspects of both thighs. Air fluidized mattress. Off-load heel with pillow.
--- NOTE | 2018-07-27 10:45 | NUR ---
DISCHARGE PLANNED PATIENT IS RETURNING TO [facility] ROOM [address] SKILLED T: [phone] FOR NURSE TO NURSE REPORT [facility] HAS BEEN ARRANGED FOR 1300 [employer] OFFICER CALLED DAUGHTER ~ LEFT MESSAGE @ [phone] REGARDING DISCHARGE BACK TO SNF SPOKE WITH JUAN ANTONIO AT [facility] WHO STATED HE WILL ARARNGER TRANSPORTATION TO AND FROM DIALYSIS
[2018-07-27 12:00] VITALS: BP 98/50
--- NOTE | 2018-07-27 14:03 | NUR ---
NURSE NOTES: SUPERVISOR [employer] initiated. Patient was unresponsive, O2 sat 76. Orders were initiated per Dr. Canela. Patient to be transferred to [id number].
[2018-07-27] MEDS ORDERED: Sodium Chloride 500ML 550 ML IV SCH (14:45)
--- NOTE | 2018-07-27 15:10 | NUR ---
RADIOLOGY DEPT CHEST X-RAY DONE.-P.DYE
[2018-07-27 15:33] LABS: HEMATOCRIT 27.5 % (37.0-47.0); HEMOGLOBIN 8.2 G/DL (12.0-16.0); MEAN CORPUSCULAR VOLUME 91 FL (80-99); PLATELET COUNT 99 K/UL (150-450); RED BLOOD COUNT 3.02 M/UL (4.20-5.40); RED CELL DISTRIBUTION WIDTH 16.5 % (11.6-14.8); WHITE BLOOD COUNT 6.4 K/UL (4.8-10.8)
[2018-07-27 15:34] LABS: BASOPHILS % (AUTO) 0.6 % (0.0-2.0); EOSINOPHILS % (AUTO) 3.2 % (0.0-3.0); LYMPHOCYTES % (AUTO) 14.5 % (20.0-45.0); MONOCYTES % (AUTO) 8.4 % (1.0-10.0); NEUTROPHILS % (AUTO) 73.3 % (45.0-75.0)
[2018-07-27 15:42] LABS: ANION GAP 9 mmol/L (5-15); BLOOD UREA NITROGEN 38 mg/dL (7-18); CARBON DIOXIDE 26 MMOL/L (21-32); CHLORIDE 102 MMOL/L (98-107); CREATININE 4.3 MG/DL (0.55-1.30); POTASSIUM 4.5 MMOL/L (3.5-5.1); SODIUM 137 MMOL/L (136-145)
[2018-07-27 15:47] LABS: ALANINE AMINOTRANSFERASE 21 U/L (12-78); ALBUMIN 1.9 G/DL (3.4-5.0); ALBUMIN/GLOBULIN RATIO 0.4 (1.0-2.7); ALKALINE PHOSPHATASE 260 U/L (46-116); ASPARTATE AMINO TRANSFERASE 25 U/L (15-37); BILIRUBIN,TOTAL 0.3 MG/DL (0.2-1.0)
[2018-07-27 16:00] VITALS: BP 106/57
--- NOTE | 2018-07-27 16:45 | NUR ---
TRANSFER TO FLOOR: Patient transferred to [id number], per Dr. Canela. Report given to CHAPIS France. Belongings checked and signed with Edilma. Family (Ozzie Iraheta) informed of transfer.
--- NOTE | 2018-07-27 17:02 | Nephrology Progress Note ---
Assessment/Plan Plan Arranging Outpatient HD+ Wound [facility] HD MWF. DC to SNF in am Subjective Subjective Patient was altered earlier. Was called by Dr. Aburto, who witnessed unresponsive patient. Admits to being SOB! On O2 via nebulizer. Ordered SDU! still in telemetry! CV RR Lungs CTA Abd SNT. E Rt. BKA clean. Objective Objective Last 24 Hour Vital Signs Date Time Temp Pulse Resp B/P (MAP) Pulse Ox O2 Delivery O2 Flow Rate FiO2 07/27/18 12:00 96.8 67 18 98/50 (66) 98 07/27/18 12:00 67 07/27/18 09:00 Room Air 07/27/18 09:00 98/59 07/27/18 09:00 67 98/59 07/27/18 09:00 67 98/59 07/27/18 08:00 67 07/27/18 08:00 97.6 60 18 98/59 (72) 100 07/27/18 04:00 70 07/27/18 04:00 97.6 69 18 113/61 (78) 98 07/27/18 00:00 97.7 76 18 102/59 (73) 98 07/27/18 00:00 75 07/26/18 21:00 Room Air 07/26/18 21:00 73 113/60 07/26/18 20:00 97.0 73 19 113/60 (77) 97 07/26/18 18:00 69 111/62 Intake and Output 07/26/18 07/27/18 18:59 06:59 # Voids 4 1 # Bowel Movements 5 2 Laboratory Tests 07/27/18 14:02: Arterial Blood pH 7.219*L, Arterial Blood Partial Pressure CO2 55.9*H, Arterial Blood Partial Pressure O2 98.7, Arterial Blood HCO3 22.3, Arterial Blood Oxygen Saturation 96.0, Arterial Blood Base Excess -5.4L, Nicola Test Positive 07/27/18 15:10: White Blood Count 6.4, Red Blood Count 3.02L, Hemoglobin 8.2L, Hematocrit 27.5L , Mean Corpuscular Volume 91, Mean Corpuscular Hemoglobin 27.2, Mean Corpuscular Hemoglobin Concent 29.9L, Red Cell Distribution Width 16.5H, Platelet Count 99L, Mean Platelet Volume 8.8, Neutrophils (%) (Auto) 73.3, Lymphocytes (%) (Auto) 14.5L, Monocytes (%) (Auto) 8.4, Eosinophils (%) (Auto) 3.2H, Basophils (%) (Auto) 0.6, Sodium Level 137, Potassium Level 4.5, Chloride Level 102, Carbon Dioxide Level 26, Anion Gap 9, Blood Urea Nitrogen 38H, Creatinine 4.3H, Estimat Glomerular Filtration Rate 12.4, Glucose Level 204H, Calcium Level 9.0, Total Bilirubin 0.3, Aspartate Amino Transf (AST/SGOT) 25, Alanine Aminotransferase (ALT/SGPT) 21, Alkaline Phosphatase 260H, Troponin I 0.018, Total Protein 7.2, Albumin 1.9L, Globulin 5.3, Albumin/Globulin Ratio 0.4L Height (Feet): 5 Height (Inches): 7.00 Weight (Pounds): 257 Objective Blind CV RR Lungs CTA Abd SNT. BS + E No CCE Brenda Fuller MD Jul 27, 2018 17:02
--- NOTE | 2018-07-27 17:10 | Nephrology Progress Note ---
Assessment/Plan Plan Holding DC! Check CXR, ABGs Transfer to SDU. Subjective Subjective Patient was altered earlier. Was called by Dr. Aburto, who witnessed unresponsive patient. Admits to being SOB! On O2 via nebulizer. Ordered SDU! still in telemetry! CV RR Lungs CTA Abd SNT. E Rt. BKA clean. Urine Strep Viridans + Enterococcus Fecalis. DW ID Objective Objective Last 24 Hour Vital Signs Date Time Temp Pulse Resp B/P (MAP) Pulse Ox O2 Delivery O2 Flow Rate FiO2 07/27/18 12:00 96.8 67 18 98/50 (66) 98 07/27/18 12:00 67 07/27/18 09:00 Room Air 07/27/18 09:00 98/59 07/27/18 09:00 67 98/59 07/27/18 09:00 67 98/59 07/27/18 08:00 67 07/27/18 08:00 97.6 60 18 98/59 (72) 100 07/27/18 04:00 70 07/27/18 04:00 97.6 69 18 113/61 (78) 98 07/27/18 00:00 97.7 76 18 102/59 (73) 98 07/27/18 00:00 75 07/26/18 21:00 Room Air 07/26/18 21:00 73 113/60 07/26/18 20:00 97.0 73 19 113/60 (77) 97 07/26/18 18:00 69 111/62 Intake and Output 07/26/18 07/27/18 18:59 06:59 # Voids 4 1 # Bowel Movements 5 2 Laboratory Tests 07/27/18 14:02: Arterial Blood pH 7.219*L, Arterial Blood Partial Pressure CO2 55.9*H, Arterial Blood Partial Pressure O2 98.7, Arterial Blood HCO3 22.3, Arterial Blood Oxygen Saturation 96.0, Arterial Blood Base Excess -5.4L, Nicola Test Positive 07/27/18 15:10: White Blood Count 6.4, Red Blood Count 3.02L, Hemoglobin 8.2L, Hematocrit 27.5L , Mean Corpuscular Volume 91, Mean Corpuscular Hemoglobin 27.2, Mean Corpuscular Hemoglobin Concent 29.9L, Red Cell Distribution Width 16.5H, Platelet Count 99L, Mean Platelet Volume 8.8, Neutrophils (%) (Auto) 73.3, Lymphocytes (%) (Auto) 14.5L, Monocytes (%) (Auto) 8.4, Eosinophils (%) (Auto) 3.2H, Basophils (%) (Auto) 0.6, Sodium Level 137, Potassium Level 4.5, Chloride Level 102, Carbon Dioxide Level 26, Anion Gap 9, Blood Urea Nitrogen 38H, Creatinine 4.3H, Estimat Glomerular Filtration Rate 12.4, Glucose Level 204H, Calcium Level 9.0, Total Bilirubin 0.3, Aspartate Amino Transf (AST/SGOT) 25, Alanine Aminotransferase (ALT/SGPT) 21, Alkaline Phosphatase 260H, Troponin I 0.018, Total Protein 7.2, Albumin 1.9L, Globulin 5.3, Albumin/Globulin Ratio 0.4L Height (Feet): 5 Height (Inches): 7.00 Weight (Pounds): 257 Objective Blind CV RR Lungs CTA Abd SNT. BS + E No CCE Brenda Fuller MD Jul 27, 2018 17:10
--- NOTE | 2018-07-27 17:15 | General Progress Note ---
Progress Note Progress Note All noted Patient was to be transferred back to intermediate but was very altered and poorly responsive No narcotics were given per nurse Vital stable on oxygen ABG done with narcosis Labs ok Right arm av shunt 2+ thrill Left foot warm strong dopplers Left heel wound pink granulation--vac removed to be changed Rec Hold discharge Stepdown monitor Medical pulmonary f/u Check CXR r/o pneumonia/aspiration Continue with left heel wound vac and off load d/w Dr Fuller d/w nurses at bedside Devon Aburto MD Jul 27, 2018 17:15
[2018-07-27] MEDS ORDERED: Miralax 17gm pkt ORAL PRN (18:00)
--- NOTE | 2018-07-27 18:34 | NUR ---
NURSE NOTES: received pt from 2E, awake, alert now, BP 106/ 57. bolus 500cc given, ABG done, dr. HAYES saw result, ordered Bipap, continue monitoring.
--- NOTE | 2018-07-27 19:27 | NUR ---
HAND-OFF: Report given to SANDI NATION.
[2018-07-27 20:00] VITALS: BP 104/57
[2018-07-27] MEDS ORDERED: Vancomycin 1500mg IVPB SCH (20:00)
--- NOTE | 2018-07-27 20:00 | NUR ---
NURSE NOTES: Received patient from Edilma NATION. Patient is observed in bed, awake, alert, oriented, and able to make needs known. No complains of pain and/or discomfort. IV site is asymptomatic, patent, and intact. Patient is on bipap; patient tolerating it well. Bed is in lowest position with side rails up x2 and brakes are engaged. Bed alarm is on. Encouraged patient to use call light when in need of assistance; patient verbalized understanding. Will continue to monitor.
--- NOTE | 2018-07-27 21:07 | NUR ---
NURSE NOTES: Patient is awake, alert, and able to make needs known. Contacted Dr. Fuller regarding patient's critical value ABG, per MD contact Dr. Rolon. Contacted Dr. Rolon, new bipap settings ordered. Will endorse to charge nurse and RT. Will continue to monitor.
[2018-07-27] MEDS: Dyna-Hex 2% Top Sol 2oz TOPIC SCH (21:28)
[2018-07-27] MEDS: Sennosides 8.6mg tab ORAL SCH (21:39)
--- NOTE | 2018-07-27 22:45 | Cardiology Progress Note ---
Assessment/Plan Assessment/Plan altered mental status lethargy, CO2 retention and respiratory acidosis could be due to sepsis, possibly CHF will discontinue amlodipine due to hypotension and CHF, consider also to stop carvedilol and benasepril Subjective Subjective The patient lethargic and she is short of breath, orthostatic Objective Last 24 Hour Vital Signs Date Time Temp Pulse Resp B/P (MAP) Pulse Ox O2 Delivery O2 Flow Rate FiO2 07/27/18 22:37 68 35 99 Facial 30 07/27/18 21:38 70 104/57 07/27/18 21:02 70 22 100 Facial 30 07/27/18 20:14 Room Air 07/27/18 20:00 97.4 70 18 104/57 (73) 100 07/27/18 20:00 50 07/27/18 19:11 70 22 Bi-pap 40 07/27/18 19:07 70 22 98 Facial 40 07/27/18 18:00 69 106/57 07/27/18 16:00 97.3 69 18 106/57 (73) 100 07/27/18 16:00 69 07/27/18 12:00 96.8 67 18 98/50 (66) 98 07/27/18 12:00 67 07/27/18 09:00 Room Air 07/27/18 09:00 98/59 07/27/18 09:00 67 98/59 07/27/18 09:00 67 98/59 07/27/18 08:00 67 07/27/18 08:00 97.6 60 18 98/59 (72) 100 07/27/18 04:00 70 07/27/18 04:00 97.6 69 18 113/61 (78) 98 07/27/18 00:00 97.7 76 18 102/59 (73) 98 07/27/18 00:00 75 General Appearance: lethargic EENT: other Neck: JVD Rhythm: NSR Cardiovascular: regular rhythm Respiratory/Chest: crackles/rales Abdomen: decreased bowel sounds Extremities: other Neurologic: unresponsiveness Intake and Output 07/26/18 07/27/18 19:00 07:00 # Voids 4 1 # Bowel Movements 5 2 Laboratory Tests Test 07/27/18 14:02 07/27/18 15:10 07/27/18 17:25 07/27/18 20:00 Arterial Blood pH 7.219 (7.350-7.450) 7.271 (7.350-7.450) 7.252 (7.350-7.450) Arterial Blood Partial Pressure CO2 55.9 mmHg (35.0-45.0) *H 59.2 mmHg (35.0-45.0) *H 62.0 mmHg (35.0-45.0) *H Arterial Blood Partial Pressure O2 98.7 mmHg (75.0-100.0) 129.3 mmHg (75.0-100.0) H 132.0 mmHg (75.0-100.0) H Arterial Blood HCO3 22.3 mmol/L (22.0-26.0) 26.6 mmol/L (22.0-26.0) H 26.7 mmol/L (22.0-26.0) H Arterial Blood Oxygen Saturation 96.0 % (95-100) 98.2 % (95-100) 98.3 % (95-100) Arterial Blood Base Excess -5.4 (-2-2) L -0.7 (-2-2) -1.0 (-2-2) Nicola Test Positive Positive N/a White Blood Count 6.4 K/UL (4.8-10.8) Red Blood Count 3.02 M/UL (4.20-5.40) L Hemoglobin 8.2 G/DL (12.0-16.0) L Hematocrit 27.5 % (37.0-47.0) L Mean Corpuscular Volume 91 FL (80-99) Mean Corpuscular Hemoglobin 27.2 PG (27.0-31.0) Mean Corpuscular Hemoglobin Concent 29.9 G/DL (32.0-36.0) L Red Cell Distribution Width 16.5 % (11.6-14.8) H Platelet Count 99 K/UL (150-450) L Mean Platelet Volume 8.8 FL (6.5-10.1) Neutrophils (%) (Auto) 73.3 % (45.0-75.0) Lymphocytes (%) (Auto) 14.5 % (20.0-45.0) L Monocytes (%) (Auto) 8.4 % (1.0-10.0) Eosinophils (%) (Auto) 3.2 % (0.0-3.0) H Basophils (%) (Auto) 0.6 % (0.0-2.0) Sodium Level 137 MMOL/L (136-145) Potassium Level 4.5 MMOL/L (3.5-5.1) Chloride Level 102 MMOL/L (98-107) Carbon Dioxide Level 26 MMOL/L (21-32) Anion Gap 9 mmol/L (5-15) Blood Urea Nitrogen 38 mg/dL (7-18) H Creatinine 4.3 MG/DL (0.55-1.30) H Estimat Glomerular Filtration Rate 12.4 mL/min (>60) Glucose Level 204 MG/DL (74-106) H Calcium Level 9.0 MG/DL (8.5-10.1) Total Bilirubin 0.3 MG/DL (0.2-1.0) Aspartate Amino Transf (AST/SGOT) 25 U/L (15-37) Alanine Aminotransferase (ALT/SGPT) 21 U/L (12-78) Alkaline Phosphatase 260 U/L (46-116) H Troponin I 0.018 ng/mL (0.000-0.056) Total Protein 7.2 G/DL (6.4-8.2) Albumin 1.9 G/DL (3.4-5.0) L Globulin 5.3 g/dL Albumin/Globulin Ratio 0.4 (1.0-2.7) L Microbiology Date/Time Source Procedure Growth Status 07/25/18 22:15 Catheter Site Catheter Tip Culture - Preliminary NO GROWTH AFTER 24 HOURS Resulted Clarisse Daley MD Jul 27, 2018 22:45
[2018-07-28] VITALS: BP 101/51
--- NOTE | 2018-07-28 | NUR ---
NURSE NOTES: Patient is asleep but arousable by voice. VSS. Patient is SR on the monitor. Cleaned and repositioned patient. No new skin tear noted. Patient is tolerating bipap at this time. Will continue to monitor.
[2018-07-28 04:00] VITALS: BP 100/59
--- NOTE | 2018-07-28 04:00 | NUR ---
NURSE NOTES: Patient is asleep but arousable by voice. No s/s of acute distress. VSS. Will continue to monitor.
[2018-07-28] MEDS ORDERED: Heparin Sod 1000 units/ml 10ml IV PRN ×2 (06:00)
--- NOTE | 2018-07-28 06:14 | NUR ---
NURSE NOTES: Contacted Lupe from [facility] regarding patient's scheduled HD 07/28/18, awaiting call back confirmation.
--- NOTE | 2018-07-28 07:47 | NUR ---
HAND-OFF: Report given to Hesham NATION. Patient is in stable condition. Endorsed plan of care.
--- NOTE | 2018-07-28 07:50 | NUR ---
NURSE NOTES: Report received from Vera Cook RN.Pt awake,alert sitting up high in bed eating breakfast noted no resp distress on nasal cannula at this time to eat ,will be switching back to Bipap after eating,no signs of pain or discomfort,SR on the monitor,IV site to LH intact,with LT AV shunt to RADHA,skin warm and dry,SR up x2 HOB elevated ,bed lock in lowest position.
[2018-07-28 08:00] VITALS: BP 104/55
--- NOTE | 2018-07-28 08:44 | Nephrology Progress Note ---
Assessment/Plan Plan Check CXR, ABGs. Results of CXR not available. Clinically much better. Urosepsis? Significance? VRE + Enterococcus Fecalis. To get ID Advise. HD pending Subjective Subjective Much more alert. Less SOB! CV RR Lungs CTA Abd SNT. E Rt. BKA clean. Urine Strep Viridans + Enterococcus Fecalis. DW ID Objective Objective Last 24 Hour Vital Signs Date Time Temp Pulse Resp B/P (MAP) Pulse Ox O2 Delivery O2 Flow Rate FiO2 07/28/18 08:09 Room Air 07/28/18 07:00 61 96 07/28/18 04:51 63 27 96 Facial 30 07/28/18 04:05 63 07/28/18 04:00 97.4 63 25 100/59 (73) 100 07/28/18 02:44 63 25 98 Facial 30 07/28/18 00:54 66 23 99 Facial 30 07/28/18 00:00 97.4 67 18 101/51 (68) 100 07/28/18 00:00 73 07/27/18 22:37 68 35 99 Facial 30 07/27/18 21:38 70 104/57 07/27/18 21:02 70 22 100 Facial 30 07/27/18 20:14 Room Air 07/27/18 20:00 97.4 70 18 104/57 (73) 100 07/27/18 20:00 50 07/27/18 19:33 70 07/27/18 19:11 70 22 Bi-pap 40 07/27/18 19:07 70 22 98 Facial 40 07/27/18 18:00 69 106/57 07/27/18 16:00 97.3 69 18 106/57 (73) 100 07/27/18 16:00 69 07/27/18 12:00 96.8 67 18 98/50 (66) 98 07/27/18 12:00 67 07/27/18 09:00 Room Air 07/27/18 09:00 98/59 07/27/18 09:00 67 98/59 07/27/18 09:00 67 98/59 Intake and Output 07/27/18 07/28/18 19:00 07:00 Intake Total 360 ml 400 ml Balance 360 ml 400 ml Intake Oral 360 ml 150 ml IV Total 250 ml # Voids 2 2 # Bowel Movements 4 3 Laboratory Tests 07/27/18 14:02: Arterial Blood pH 7.219*L, Arterial Blood Partial Pressure CO2 55.9*H, Arterial Blood Partial Pressure O2 98.7, Arterial Blood HCO3 22.3, Arterial Blood Oxygen Saturation 96.0, Arterial Blood Base Excess -5.4L, Nicola Test Positive 07/27/18 15:10: White Blood Count 6.4, Red Blood Count 3.02L, Hemoglobin 8.2L, Hematocrit 27.5L , Mean Corpuscular Volume 91, Mean Corpuscular Hemoglobin 27.2, Mean Corpuscular Hemoglobin Concent 29.9L, Red Cell Distribution Width 16.5H, Platelet Count 99L, Mean Platelet Volume 8.8, Neutrophils (%) (Auto) 73.3, Lymphocytes (%) (Auto) 14.5L, Monocytes (%) (Auto) 8.4, Eosinophils (%) (Auto) 3.2H, Basophils (%) (Auto) 0.6, Sodium Level 137, Potassium Level 4.5, Chloride Level 102, Carbon Dioxide Level 26, Anion Gap 9, Blood Urea Nitrogen 38H, Creatinine 4.3H, Estimat Glomerular Filtration Rate 12.4, Glucose Level 204H, Calcium Level 9.0, Total Bilirubin 0.3, Aspartate Amino Transf (AST/SGOT) 25, Alanine Aminotransferase (ALT/SGPT) 21, Alkaline Phosphatase 260H, Troponin I 0.018, Total Protein 7.2, Albumin 1.9L, Globulin 5.3, Albumin/Globulin Ratio 0.4L 07/27/18 17:25: Arterial Blood pH 7.271L, Arterial Blood Partial Pressure CO2 59.2*H, Arterial Blood Partial Pressure O2 129.3H, Arterial Blood HCO3 26.6H, Arterial Blood Oxygen Saturation 98.2, Arterial Blood Base Excess -0.7, Nicola Test Positive 07/27/18 20:00: Arterial Blood pH 7.252L, Arterial Blood Partial Pressure CO2 62.0*H, Arterial Blood Partial Pressure O2 132.0H, Arterial Blood HCO3 26.7H, Arterial Blood Oxygen Saturation 98.3, Arterial Blood Base Excess -1.0, Nicola Test N/a Height (Feet): 5 Height (Inches): 7.00 Weight (Pounds): 260 Objective Blind CV RR Lungs CTA Abd SNT. BS + E No CCE Brenda Fuller MD Jul 28, 2018 08:44
[2018-07-28] MEDS: Docusate 100mg cap ORAL SCH ×4 (09:00→18:00)
[2018-07-28] MEDS ORDERED: Lisinopril 20mg tab ORAL SCH (09:00)
[2018-07-28] MEDS ORDERED: Aspirin Baby 81mg ORAL SCH (09:00)
[2018-07-28] MEDS ORDERED: Nephrovite tab (Rena-Vite) ORAL SCH (09:00)
[2018-07-28] MEDS: Heparin 5000 units/ml inj SUBQ SCH ×2 (09:00→20:15)
[2018-07-28] MEDS: Carvedilol 6.25mg Tab ORAL SCH (09:19)
--- NOTE | 2018-07-28 10:35 | NUR ---
NURSE NOTES: Pt incontinent of liquid yellow diarrhea like stools in large amount.bedbath given,kept dry and clean.
--- NOTE | 2018-07-28 11:00 | Consultation ---
DATE OF CONSULTATION: 07/28/2018 PULMONARY CONSULTATION CONSULTING PHYSICIAN: Gustavo Rolon M.D. REASON FOR CONSULTATION: Respiratory failure, respiratory acidosis. HISTORY OF PRESENT ILLNESS: A 72-year-old female, known to me from prior admission. The patient presented with septic shock recently and did overall improve. The patient is a correction patient. She noted to have worsening fluid retention and is on dialysis. The patient was sent over to the emergency room and now admitted. The patient noted to have significant acute on chronic respiratory acidosis. The patient has, however, bilateral pleural effusions, overall not significantly changed. The patient without congestion. She is alert. She does have significant anasarca. No fevers or chills noted. Events subacute overall in nature. Case discussed and reviewed with nursing staff as well as with the primary care physician. PAST MEDICAL HISTORY: Sepsis, end-stage renal disease hemodialysis dependent, diabetes, blindness, pleural effusions, right foot amputation, prior gangrene, peripheral vascular disease, ischemic heart disease, and history of endocarditis. MEDICATIONS: Reviewed. ALLERGIES: Reviewed. FAMILY HISTORY: Unremarkable. SOCIAL HISTORY: retirement patient. Currently nonsmoker and nondrinker. No illicit drug use. REVIEW OF SYSTEMS: Difficult to fully assess. The patient is somewhat confused. PHYSICAL EXAMINATION: GENERAL: A well-developed female, comfortable at present. VITAL SIGNS: Blood pressure 100/59,88, temperature 97.4, and respiratory rate is slightly elevated at 27. HEENT: Negative. Extraocular movements are grossly intact. NECK: Supple. LUNGS: With reduced breath sounds bilaterally. CARDIAC: S1 and S2. Slightly distant systolic murmur noted. No rubs or gallops. ABDOMEN: Soft, nontender. Mild subcutaneous edema. EXTREMITIES: No edema. Prior amputations noted. NEUROLOGIC: Grossly nonfocal. LABORATORY AND DIAGNOSTIC DATA: White count 6.4, hemoglobin 8.2, and platelets noted. Chemistries noted BUN 38, creatinine 4.3. Albumin is 1.9. ABG 7.25/62/132. Chest x-ray, bilateral pleural effusions. IMPRESSION: 1. Acute on chronic respiratory failure. 2. Acute hypercapnia. 3. Hypoxemia. 4. Bilateral pleural effusions. 5. Fluid overload. 6. End-stage renal disease. 7. Severe protein-calorie malnutrition. 8. Anemia. 9. Thrombocytopenia. 10. Mild coagulopathy. RECOMMENDATIONS: Supportive care. BiPAP as needed. Repeat arterial blood gases this morning to assess for change. Maintain BiPAP for now and monitor acid-base exchange. Hope to see further improvement and avoid intubation, but if need be we will proceed. The patient has had multiple x-rays and imaging as well as had a CAT scan back last month showing significant anasarca and bilateral pleural effusions with atelectasis in the left lung. The patient's care reviewed and discussed. The patient remains guarded at present and will follow up clinically for changes. Gustavo Rolon M.D. DR: EUGENIA JOB#: [id number] CC: REKHA
[2018-07-28] MEDS: Piperacillin/Tazobactam 2.25 GM in D5W 55 ML IVPB SCH ×2 (11:57→19:07)
[2018-07-28 12:00] VITALS: BP 107/50
--- NOTE | 2018-07-28 14:21 | NUR ---
SS note Chart reviewed; no SW needs identified at this time. Patient to discharge to SNF.
--- NOTE | 2018-07-28 15:52 | NUR ---
CASE MANAGEMENT: REVIEW SI: ESRD . HYPOTENSION T 96.0 HR 66 RR 28 BP 104/55 SAT 96% BIPAP FIO2 30 ABG: PH 7.262 PCO2 55.7 PO2 109.0 HCO3 24.5 O2 SAT 97.2 IS: PROCRIT SQ MWF ZOSYN IV Q8HR ASA PO QD LISINOPRIL PO QD COREG PO Q12HR STEP DOWN UNIT STATUS DCP: PATIENT IS FROM [facility]
[2018-07-28 16:00] VITALS: BP 90/50
--- NOTE | 2018-07-28 17:55 | Cardiology Progress Note ---
Assessment/Plan Assessment/Plan discontinue benazepril and carvedilol because of hypotension Subjective Subjective The patient is eating dinner. Her son is at the bedside. She is concerned about her low BP. She has moderate dyspnea and orthopnea. Objective Last 24 Hour Vital Signs Date Time Temp Pulse Resp B/P (MAP) Pulse Ox O2 Delivery O2 Flow Rate FiO2 07/28/18 16:30 Room Air 07/28/18 16:00 Room Air 07/28/18 16:00 96.0 71 16 90/50 (63) 98 07/28/18 16:00 62 07/28/18 12:50 64 22 97 Facial 30 07/28/18 12:11 Room Air 07/28/18 12:00 62 07/28/18 12:00 96.0 66 19 107/50 (69) 100 07/28/18 10:55 65 28 96 Facial 30 07/28/18 09:19 104/55 07/28/18 09:19 68 104/55 07/28/18 08:09 Room Air 07/28/18 08:00 68 07/28/18 08:00 96.0 68 20 104/55 (71) 100 07/28/18 07:00 61 96 07/28/18 04:51 63 27 96 Facial 30 07/28/18 04:05 63 07/28/18 04:00 97.4 63 25 100/59 (73) 100 07/28/18 02:44 63 25 98 Facial 30 07/28/18 00:54 66 23 99 Facial 30 07/28/18 00:00 97.4 67 18 101/51 (68) 100 07/28/18 00:00 73 07/27/18 22:37 68 35 99 Facial 30 07/27/18 21:38 70 104/57 07/27/18 21:02 70 22 100 Facial 30 07/27/18 20:14 Room Air 07/27/18 20:00 97.4 70 18 104/57 (73) 100 07/27/18 20:00 50 07/27/18 19:33 70 07/27/18 19:11 70 22 Bi-pap 40 07/27/18 19:07 70 22 98 Facial 40 07/27/18 18:00 69 106/57 General Appearance: agitated - slightly EENT: other Neck: JVD Rhythm: NSR Cardiovascular: tachycardia, systolic murmur Respiratory/Chest: crackles/rales - posteriorly Abdomen: distended, other - NT Extremities: other - right leg AKA, left leg heaing foot ulcer Intake and Output 07/27/18 07/28/18 18:59 06:59 Intake Total 360 ml 400 ml Balance 360 ml 400 ml Intake Oral 360 ml 150 ml IV Total 250 ml # Voids 2 2 # Bowel Movements 4 3 Laboratory Tests Test 07/27/18 20:00 07/28/18 10:35 07/28/18 12:50 Arterial Blood pH 7.252 (7.350-7.450) 7.179 (7.350-7.450) 7.262 (7.350-7.450) Arterial Blood Partial Pressure CO2 62.0 mmHg (35.0-45.0) *H 65.6 mmHg (35.0-45.0) *H 55.7 mmHg (35.0-45.0) *H Arterial Blood Partial Pressure O2 132.0 mmHg (75.0-100.0) H 36.4 mmHg (75.0-100.0) 109.0 mmHg (75.0-100.0) H Arterial Blood HCO3 26.7 mmol/L (22.0-26.0) H 23.9 mmol/L (22.0-26.0) 24.5 mmol/L (22.0-26.0) Arterial Blood Oxygen Saturation 98.3 % (95-100) 55.4 % (95-100) *L 97.2 % (95-100) Arterial Blood Base Excess -1.0 (-2-2) -4.8 (-2-2) L -2.6 (-2-2) L Nicola Test N/a Positive Positive Microbiology Date/Time Source Procedure Growth Status 07/25/18 22:15 Catheter Site Catheter Tip Culture - Preliminary NO GROWTH AFTER 48 HOURS Resulted Clarisse Daley MD Jul 28, 2018 17:55
--- NOTE | 2018-07-28 19:10 | NUR ---
RESPIRATORY NOTE: Received pt on 3L NC. Pt now placed back on BiPAP 20/10, back up rate 16, 30%. Pt alert/awake, follows commands. Family at bedside. B/S marta. clear, nonproductive cough. Pt also getting dialysis at this time. Machine plugged into red outlet. Pt denies SOB/chest pain at this time. WIll continue plan of care.
--- NOTE | 2018-07-28 19:15 | Consultation ---
DATE OF CONSULTATION: 07/28/2018 INFECTIOUS DISEASE CONSULTATION This consult is for coverage of Dr. Cain. CONSULTING PHYSICIAN: Joe Melgar M.D. Reason for consult : UTI REFERRING PHYSICIAN: Brenda Fuller M.D. HISTORY OF PRESENT ILLNESS: The patient is a 72-year-old female admitted on 07/17/2018 from a assisted facility because of volume overload. The patient was recently discharged from hospital after a prolonged hospitalization. She had osteomyelitis of the left heel on previous admission. The patient had a urine culture that grew Enterococcus and Strep viridans. She was supposed to be discharged yesterday, but developed shortness of breath and hypercapnic respiratory failure. Today, the patient is on BiPAP. Please is not a source of history. PAST MEDICAL HISTORY: Significant for end-stage renal disease, on hemodialysis; diabetes type 2; anemia; left heel osteomyelitis; right below-knee amputation; mitral regurgitation; peripheral vascular disease; hypertension; blindness; and ankle fracture. MEDICATIONS: Epogen, Zosyn, aspirin, gabapentin, lisinopril, Nephro-Beryl, Protonix, sodium chloride, carvedilol, heparin, Senokot, vancomycin, Colace, MiraLAX, and Tylenol. ALLERGIES: Benazepril, codeine, insulin aspart, insulin detemir, opiates, morphine. SOCIAL HISTORY: jail resident, bedbound. No history of alcohol, drug abuse, or smoking. REVIEW OF SYSTEMS: Unobtainable. The patient is lethargic. PHYSICAL EXAMINATION: VITAL SIGNS: Temperature 96, pulse 66, and blood pressure 107/50. GENERAL APPEARANCE: Seems to be obese. HEAD AND NECK: On BiPAP. HEART: Normal rate. LUNGS: Decreased expansion in sounds. ABDOMEN: Soft. EXTREMITIES: Right below-knee amputation and left heel unstageable ulcer. LABORATORY DATA: Blood gas showed pH of 7.179, pCO2 of 65.6, and pO2 of 136.4. Sodium 137, potassium 4.5, chloride 102, bicarbonate 26, BUN 38, and creatinine 4.3. Glucose 204. UA showed wbc's too numerous to count, RBC too numerous to count. WBC 6.4, hemoglobin 8.2, hematocrit 27.5, Chest x-ray at the time of admission showed [id number] pulmonary edema. Today, chest x-ray showed moderate CHF, bilateral effusion. There is some improvement over the past five hours. IMPRESSION: Bacteriuria with strep viridans and enterococcus sensitive to ampicillin and vancomycin. The patient has hypercapnic respiratory failure, end-stage renal disease on hemodialysis, cannot rule out pulmonary edema, cannot rule out early pneumonia. She has diabetes mellitus type 2, right below-knee amputation ,history of left heel osteomyelitis , mitral regurgitation, and hypertension. RECOMMENDATION: Because of the patient's condition and worsening of the condition, we will keep the antibiotics, Zosyn and vancomycin. We will follow up the culture and chest x-ray and try to narrow antibiotics. At the end of my exam, I thank Dr. Fuller for involving me in the care of this patient. Joe Melgar M.D. DR: CARLY JOB#: [id number] CC: REKHA
--- NOTE | 2018-07-28 19:25 | NUR ---
NURSE NOTES: Received report from Hesham RN, pt. in bed A/O x's4 -able to make needs known, no signs and symptoms of acute cardiac and respiratory distress noted, pt. appears to be tolerating current BIPAP settings at 20/10 fio2 at 30%- sating at 100%- no respiratory distress noted, bed in lowest position and call light within easy reach, bed alarm on, side rails up x's 3, safety brakes engaged, pt. is currently having hemodialysis- and appears to be tolerating it well, RADHA AV shunt used for HD and left hand 20G IV intact and patent, cardiac monitoring on, safety measures continued, will continue with plan of care.
--- NOTE | 2018-07-28 19:35 | NUR ---
HAND-OFF: Report given to Cody Mckinney RN.Pt with ongoing HD at this time.
[2018-07-28 20:00] VITALS: BP 97/53
[2018-07-28] MEDS: Dyna-Hex 2% Top Sol 2oz TOPIC SCH (20:45)
[2018-07-28] MEDS: Sennosides 8.6mg tab ORAL SCH ×2 (21:00→21:59)
[2018-07-28] MEDS ORDERED: Epogen (for ESRD on dialysis) SUBQ SCH (21:00)
--- NOTE | 2018-07-28 22:22 | NUR ---
NURSE NOTES: pts has completed Hemodialysis and appears to have tolerated it well- per HD nurse zero output.
[2018-07-29] VITALS (8 sets, daily range): BP systolic 91–110; BP diastolic 44–54
--- NOTE | 2018-07-29 01:45 | NUR ---
NURSE NOTES: pt. transferred to telemetry- pt. remains stable and no s/s of acute distress noted.
--- NOTE | 2018-07-29 01:45 | NUR ---
NURSE NOTES: Received pt. from [facility] via bed. Pt. transferred to [facility] without any incident. Received report from CHAPIS Ross. Patient is A/O x4, drapery examiner is in placed, IV site is intact, asymptomatic and patent. Bed is in the lowest position and locked, call light within reach. No acute distress noted at this time. Will continue plan of care.
[2018-07-29] MEDS: Piperacillin/Tazobactam 2.25 GM in D5W 55 ML IVPB SCH ×3 (02:55→17:48)
--- NOTE | 2018-07-29 07:25 | NUR ---
HAND-OFF: Report given to CHAPIS Duncan. Pt. is in stable condition. Plan of care endorsed.
--- NOTE | 2018-07-29 07:31 | NUR ---
NURSE NOTES: received patient report from teo rn. patient is on bed asleep. no acute distress noted. noted that patient has vision impairment bilaterally. sr reported. no arrythmias during the night. basic needs within reach. will continue to monitor.
[2018-07-29] MEDS: Aspirin Baby 81mg ORAL SCH (08:30)
[2018-07-29] MEDS: Nephrovite tab (Rena-Vite) ORAL SCH (08:30)
[2018-07-29] MEDS: Docusate 100mg cap ORAL SCH ×3 (08:31→17:14)
[2018-07-29] MEDS: Heparin 5000 units/ml inj SUBQ SCH ×2 (08:32→20:31)
[2018-07-29] MEDS ORDERED: Vancomycin 1gm in D5W 275ml IVPB SCH (10:00)
--- NOTE | 2018-07-29 11:20 | Infectious Diseases Prog Note ---
"Assessment/Plan Assessment/Plan antibiotics ; vancomycin iv, zosyn A 1. enterococcus | streptococcus UTI 2. pneumonia 3. diabetes mellitus 4. hypertension 5. renal failure on hemodialysis 6. history of left foot osteomyelitis P 1. continue vancomycin iv, zosyn 2. sputum culture 3. will follow up culture Subjective Constitutional: Denies: fever, chills Respiratory: Denies: shortness of breath, dry cough Gastrointestinal/Abdominal: Denies: nausea, vomiting, diarrhea Musculoskeletal: Denies: pain Allergies: Coded Allergies: BENAZEPRIL (Verified Allergy, Unknown, 06/12/18) CODEINE (Verified Allergy, Unknown, 06/12/18) INSULIN ASPART (Verified Allergy, Unknown, 06/12/18) INSULIN DETEMIR (Verified Allergy, Unknown, 06/12/18) OPIOIDS - MORPHINE ANALOGUES (Verified Allergy, Unknown, 06/12/18) Objective Vital Signs Last 24 Hour Vital Signs Date Time Temp Pulse Resp B/P (MAP) Pulse Ox O2 Delivery O2 Flow Rate FiO2 07/29/18 09:00 Nasal Cannula 3.0 07/29/18 08:00 64 07/29/18 07:44 96.4 63 20 92/44 (60) 100 07/29/18 04:00 63 07/29/18 04:00 97.0 63 21 110/49 (69) 100 07/29/18 03:16 64 30 96 Facial 30 07/29/18 01:30 67 20 97 Facial 30 07/29/18 01:30 96.4 65 21 94/54 (67) 100 07/29/18 00:00 96.9 66 22 95/47 (63) 99 07/29/18 00:00 68 07/29/18 00:00 Room Air 07/28/18 23:11 Nasal Cannula 3.0 32 07/28/18 23:11 97 Nasal Cannula 3.0 32 07/28/18 21:00 Room Air 07/28/18 21:00 65 19 96 Facial 30 07/28/18 20:00 96.8 64 24 97/53 (68) 99 07/28/18 20:00 Room Air 07/28/18 20:00 65 07/28/18 19:08 67 23 99 Facial 30 07/28/18 16:30 Room Air 07/28/18 16:00 30 07/28/18 16:00 Room Air 07/28/18 16:00 96.0 71 16 90/50 (63) 98 07/28/18 16:00 62 07/28/18 12:50 64 22 97 Facial 30 07/28/18 12:11 Room Air 07/28/18 12:00 30 07/28/18 12:00 62 07/28/18 12:00 96.0 66 19 107/50 (69) 100 Height (Feet): 5 Height (Inches): 7.00 Weight (Pounds): 255 Respiratory/Chest: lungs clear Cardiovascular: normal rate, regular rhythm, no gallop/murmur Abdomen: soft, non tender Extremities: no edema, other - right stump clean, left foot VAC Laboratory Tests Test 07/28/18 12:50 07/29/18 06:29 Arterial Blood pH 7.262 (7.350-7.450) Arterial Blood Partial Pressure CO2 55.7 mmHg (35.0-45.0) *H Arterial Blood Partial Pressure O2 109.0 mmHg (75.0-100.0) H Arterial Blood HCO3 24.5 mmol/L (22.0-26.0) Arterial Blood Oxygen Saturation 97.2 % (95-100) Arterial Blood Base Excess -2.6 (-2-2) L Nicola Test Positive Random Vancomycin Level 16.4 ug/mL Current Medications Medications (Trade) Dose Ordered Sig/Andre Route PRN Reason Start Time Stop Time Status Last Admin Dose Admin Acetaminophen (Tylenol) 650 mg Q6H PRN ORAL Mild Pain/Temp > 100.5 07/29/18 05:45 08/16/18 23:44 Aspirin (ASA) 81 mg DAILY ORAL 07/29/18 09:00 08/17/18 08:59 07/29/18 08:30 Chlorhexidine Gluconate (Fabiola-Hex 2%) 1 applic DAILY@1999 TOPIC 07/29/18 20:00 08/17/18 19:59 Dextrose (Dextrose 50%) 25 ml Q30M PRN IV Hypoglycemia 07/29/18 02:00 08/17/18 00:29 Dextrose (Dextrose 50%) 50 ml Q30M PRN IV Hypoglycemia 07/29/18 02:00 08/17/18 00:29 Docusate Sodium (Colace) 100 mg THREE TIMES A DAY ORAL 07/29/18 09:00 08/17/18 08:59 Epoetin Macrus (Procrit (for ESRD on dialysis)) 7,000 units TUE-TUE-TUE SUBQ 07/31/18 21:00 08/18/18 20:59 Gabapentin (Neurontin) 100 mg DAILY ORAL 07/29/18 09:00 08/17/18 08:59 07/29/18 08:30 Heparin Sodium (Porcine) (Heparin 5000 units/ml) 5,000 units EVERY 12 HOURS SUBQ 07/29/18 09:00 08/17/18 08:59 Pantoprazole (Protonix) 40 mg DAILY ORAL 07/29/18 09:00 08/17/18 08:59 07/29/18 08:30 Piperacillin Sod/ Tazobactam Sod 2.25 gm/Dextrose 55 ml @ 110 mls/hr Q8H IVPB 07/29/18 02:45 08/04/18 10:44 07/29/18 02:55 Polyethylene Glycol (Miralax) 17 gm DAILYPRN PRN ORAL Constipation 07/29/18 18:00 08/26/18 17:59 Sennosides (Senokot) 17.2 mg QHS ORAL 07/29/18 21:00 08/17/18 20:59 Vancomycin HCl (Vanco rx to dose) 1 ea DAILY PRN MISC Per rx protocol 07/29/18 09:00 08/26/18 18:59 Vancomycin HCl 1 gm/Dextrose 275 ml @ 183.708 mls/hr ONCE IVPB 07/29/18 10:00 07/29/18 12:00 07/29/18 10:18 Vitamin B Complex/ Vit C/Folic Acid (Nephrovite) 1 tab DAILY ORAL 07/29/18 09:00 08/17/18 10:59 07/29/18 08:30 Naya Cain MD Jul 29, 2018 11:20"
--- NOTE | 2018-07-29 11:52 | Pulmonology Progress Note ---
Assessment/Plan Assessment/Plan IMPRESSION: 1. Acute on chronic respiratory failure. 2. Acute hypercapnia. 3. Hypoxemia. 4. Bilateral pleural effusions. 5. Fluid overload. 6. End-stage renal disease. 7. Severe protein-calorie malnutrition. 8. Anemia. 9. Thrombocytopenia. 10. Mild coagulopathy. PLAN repeat ABG monitor acid base no sedation BIPAP likely would need trilogy keep negative impression, plan, and exam edited and reviewed in detail care discussed with RN Subjective ROS Limited/Unobtainable: Yes Allergies: Coded Allergies: BENAZEPRIL (Verified Allergy, Unknown, 06/12/18) CODEINE (Verified Allergy, Unknown, 06/12/18) INSULIN ASPART (Verified Allergy, Unknown, 06/12/18) INSULIN DETEMIR (Verified Allergy, Unknown, 06/12/18) OPIOIDS - MORPHINE ANALOGUES (Verified Allergy, Unknown, 06/12/18) Subjective care noted and reviewed overall remains awake Objective Last 24 Hour Vital Signs Date Time Temp Pulse Resp B/P (MAP) Pulse Ox O2 Delivery O2 Flow Rate FiO2 07/29/18 11:26 96.8 69 20 91/50 (64) 100 07/29/18 09:00 Nasal Cannula 3.0 07/29/18 08:00 64 07/29/18 07:44 96.4 63 20 92/44 (60) 100 07/29/18 06:50 Nasal Cannula 1.0 24 07/29/18 06:50 96 Nasal Cannula 1.0 24 07/29/18 04:00 63 07/29/18 04:00 97.0 63 21 110/49 (69) 100 07/29/18 03:16 64 30 96 Facial 30 07/29/18 01:30 67 20 97 Facial 30 07/29/18 01:30 96.4 65 21 94/54 (67) 100 07/29/18 00:00 96.9 66 22 95/47 (63) 99 07/29/18 00:00 68 07/29/18 00:00 Room Air 07/28/18 23:11 Nasal Cannula 3.0 32 07/28/18 23:11 97 Nasal Cannula 3.0 32 07/28/18 21:00 Room Air 07/28/18 21:00 65 19 96 Facial 30 07/28/18 20:00 96.8 64 24 97/53 (68) 99 07/28/18 20:00 Room Air 07/28/18 20:00 65 07/28/18 19:08 67 23 99 Facial 30 07/28/18 16:30 Room Air 07/28/18 16:00 30 07/28/18 16:00 Room Air 07/28/18 16:00 96.0 71 16 90/50 (63) 98 07/28/18 16:00 62 07/28/18 12:50 64 22 97 Facial 30 07/28/18 12:11 Room Air 07/28/18 12:00 30 07/28/18 12:00 62 07/28/18 12:00 96.0 66 19 107/50 (69) 100 Intake and Output 07/28/18 07/29/18 19:00 07:00 Intake Total 480 ml 360 ml Balance 480 ml 360 ml Intake Oral 480 ml 360 ml # Voids 2 2 # Bowel Movements 6 4 Objective GENERAL: A well-developed female, comfortable at present. HEENT: Negative. Extraocular movements are grossly intact. NECK: Supple. LUNGS: With reduced breath sounds bilaterally. minimal rhonchi CARDIAC: S1 and S2. Slightly distant systolic murmur noted. No rubs or gallops. ABDOMEN: Soft, nontender. Mild subcutaneous edema. EXTREMITIES: No edema. Prior amputations noted. NEUROLOGIC: Grossly nonfocal. Laboratory Tests 07/28/18 12:50: Arterial Blood pH 7.262L, Arterial Blood Partial Pressure CO2 55.7*H, Arterial Blood Partial Pressure O2 109.0H, Arterial Blood HCO3 24.5, Arterial Blood Oxygen Saturation 97.2, Arterial Blood Base Excess -2.6L, Nicoal Test Positive 07/29/18 06:29: Random Vancomycin Level 16.4 Current Medications Medications (Trade) Dose Ordered Sig/Andre Route PRN Reason Start Time Stop Time Status Last Admin Dose Admin Acetaminophen (Tylenol) 650 mg Q6H PRN ORAL Mild Pain/Temp > 100.5 07/29/18 05:45 08/16/18 23:44 Aspirin (ASA) 81 mg DAILY ORAL 07/29/18 09:00 08/17/18 08:59 07/29/18 08:30 Chlorhexidine Gluconate (Fabiola-Hex 2%) 1 applic DAILY@2000 TOPIC 07/29/18 20:00 08/17/18 19:59 Dextrose (Dextrose 50%) 25 ml Q30M PRN IV Hypoglycemia 07/29/18 02:00 08/17/18 00:29 Dextrose (Dextrose 50%) 50 ml Q30M PRN IV Hypoglycemia 07/29/18 02:00 08/17/18 00:29 Docusate Sodium (Colace) 100 mg THREE TIMES A DAY ORAL 07/29/18 09:00 08/17/18 08:59 Epoetin Marcus (Procrit (for ESRD on dialysis)) 7,000 units TUE-TUE-TUE SUBQ 07/31/18 21:00 08/18/18 20:59 Gabapentin (Neurontin) 100 mg DAILY ORAL 07/29/18 09:00 08/17/18 08:59 07/29/18 08:30 Heparin Sodium (Porcine) (Heparin 5000 units/ml) 5,000 units EVERY 12 HOURS SUBQ 07/29/18 09:00 08/17/18 08:59 Pantoprazole (Protonix) 40 mg DAILY ORAL 07/29/18 09:00 08/17/18 08:59 07/29/18 08:30 Piperacillin Sod/ Tazobactam Sod 2.25 gm/Dextrose 55 ml @ 110 mls/hr Q8H IVPB 07/29/18 02:45 08/04/18 10:44 07/29/18 11:36 Polyethylene Glycol (Miralax) 17 gm DAILYPRN PRN ORAL Constipation 07/29/18 18:00 08/26/18 17:59 Sennosides (Senokot) 17.2 mg QHS ORAL 07/29/18 21:00 08/17/18 20:59 Vancomycin HCl (Vanco rx to dose) 1 ea DAILY PRN MISC Per rx protocol 07/29/18 09:00 08/26/18 18:59 Vancomycin HCl 1 gm/Dextrose 275 ml @ 183.708 mls/hr ONCE IVPB 07/29/18 10:00 07/29/18 12:00 07/29/18 10:18 Vitamin B Complex/ Vit C/Folic Acid (Nephrovite) 1 tab DAILY ORAL 07/29/18 09:00 08/17/18 10:59 07/29/18 08:30 Gustavo Rolon MD Jul 29, 2018 11:52
--- NOTE | 2018-07-29 14:17 | Nephrology Progress Note ---
Assessment/Plan Plan Check CXR, ABGs. Results of CXR not available. Clinically much better. Urosepsis? Significance? VRE + Enterococcus Fecalis. To get ID Advise. HD done yesterday. [facility]. Subjective Subjective Much more alert. Less SOB! CV RR Lungs CTA Abd SNT. E Rt. BKA clean. Urine Strep Viridans + Enterococcus Fecalis. DW ID Objective Objective Last 24 Hour Vital Signs Date Time Temp Pulse Resp B/P (MAP) Pulse Ox O2 Delivery O2 Flow Rate FiO2 07/29/18 11:26 96.8 69 20 91/50 (64) 100 07/29/18 09:00 Nasal Cannula 3.0 07/29/18 08:00 64 07/29/18 07:44 96.4 63 20 92/44 (60) 100 07/29/18 06:50 Nasal Cannula 1.0 24 07/29/18 06:50 96 Nasal Cannula 1.0 24 07/29/18 04:00 63 07/29/18 04:00 97.0 63 21 110/49 (69) 100 07/29/18 03:16 64 30 96 Facial 30 07/29/18 01:30 67 20 97 Facial 30 07/29/18 01:30 96.4 65 21 94/54 (67) 100 07/29/18 00:00 96.9 66 22 95/47 (63) 99 07/29/18 00:00 68 07/29/18 00:00 Room Air 07/28/18 23:11 Nasal Cannula 3.0 32 07/28/18 23:11 97 Nasal Cannula 3.0 32 07/28/18 21:00 Room Air 07/28/18 21:00 65 19 96 Facial 30 07/28/18 20:00 96.8 64 24 97/53 (68) 99 07/28/18 20:00 Room Air 07/28/18 20:00 65 07/28/18 19:08 67 23 99 Facial 30 07/28/18 16:30 Room Air 07/28/18 16:00 30 07/28/18 16:00 Room Air 07/28/18 16:00 96.0 71 16 90/50 (63) 98 07/28/18 16:00 62 Intake and Output 07/28/18 07/29/18 19:00 07:00 Intake Total 480 ml 360 ml Balance 480 ml 360 ml Intake Oral 480 ml 360 ml # Voids 2 2 # Bowel Movements 6 4 Laboratory Tests 07/29/18 06:29: Random Vancomycin Level 16.4 Height (Feet): 5 Height (Inches): 7.00 Weight (Pounds): 255 Objective Blind CV RR Lungs CTA Abd SNT. BS + E No CCE Brenda Fuller MD Jul 29, 2018 14:17
--- NOTE | 2018-07-29 14:38 | NUR ---
NURSE NOTES: [facility]discontinue wound vac, change dressing to wet to dry dressing and wrap with kerlix. wound vac will be continued in the facility.
--- NOTE | 2018-07-29 14:38 | NUR ---
DISCHARGE PLAN DISCHARGE ORDER NOTED FAXED CLINICALS TO [facility] T: [phone] F: [phone] *CALLED [facility] AND SPOKE WITH NURSE WHO SAID THERE ISN'T ANYONE IN ADMISSIONS TODAY ONCE SHE RECEIVES THE CLINICALS SHE WILL EMAIL HER LARGE ANIMAL HUSBANDRY TECHNICIAN TO SEE IF THEY CAN ACCEPT PATIENT BACK TODAY
--- NOTE | 2018-07-29 15:49 | Diagnostic Imaging Report ---
Indication: Dyspnea Comparison: 07/27/2018 A single view chest radiograph was obtained. Findings: Pulmonary edema again demonstrated. Bilateral pleural effusion suspected. Degree of edema may be slightly improved from the earlier time at 14:56. IMPRESSION: Moderate CHF. Bilateral pleural effusions. Some improvement over the last 5 hours
--- NOTE | 2018-07-29 15:49 | Diagnostic Imaging Report ---
Indication: Dyspnea Comparison: 07/17/2018 A single view chest radiograph was obtained. Findings: Pulmonary edema demonstrated with groundglass and airspace opacities bilaterally. Bilateral pleural effusions are present. Cardiomegaly noted. Similar findings seen previously though edema appears to have advanced or progressed since that time. IMPRESSION: Moderate to severe pulmonary edema
--- NOTE | 2018-07-29 16:47 | NUR ---
NURSE NOTES: paged dr smith to call back station to inform of the discharge, per CM there isnt anyone in the admission today.awaitng callback.
[2018-07-29] MEDS ORDERED: Miralax 17gm pkt ORAL PRN (18:00)
--- NOTE | 2018-07-29 19:10 | NUR ---
NURSE NOTES: Received pt. and report from CHAPIS Duncan. Observe pt. resting in bed. Patient is A/O x4, cardiac care unit nurse is in placed, IV site is intact, asymptomatic and patent. Bed is in the lowest position and locked, call light within reach. No acute distress noted at this time. Will continue plan of care.
--- NOTE | 2018-07-29 19:18 | NUR ---
HAND-OFF: Report given to teo munoz.
[2018-07-29] MEDS: Dyna-Hex 2% Top Sol 2oz TOPIC SCH (20:00)
[2018-07-29] MEDS: Sennosides 8.6mg tab ORAL SCH (20:30)
--- NOTE | 2018-07-29 20:31 | NUR ---
NURSE NOTES: Held Heparin, PLT: 99
--- NOTE | 2018-07-29 21:37 | Cardiology Progress Note ---
Assessment/Plan Assessment/Plan chronic CHF due to severe MR, hypotension post dialysis, continue current support Subjective Subjective The patient is resting with her eyes closed. She is alert and interactive when talked to. Objective Last 24 Hour Vital Signs Date Time Temp Pulse Resp B/P (MAP) Pulse Ox O2 Delivery O2 Flow Rate FiO2 07/29/18 19:51 97 Nasal Cannula 1.0 24 07/29/18 19:51 Nasal Cannula 1.0 24 07/29/18 19:51 66 18 97 07/29/18 17:23 64 20 97 07/29/18 16:00 96.9 66 20 109/48 (68) 99 07/29/18 16:00 65 07/29/18 15:25 68 22 96 07/29/18 12:00 65 07/29/18 11:26 96.8 69 20 91/50 (64) 100 07/29/18 09:00 Nasal Cannula 3.0 07/29/18 08:00 64 07/29/18 07:44 96.4 63 20 92/44 (60) 100 07/29/18 06:50 Nasal Cannula 1.0 24 07/29/18 06:50 96 Nasal Cannula 1.0 24 07/29/18 04:00 63 07/29/18 04:00 97.0 63 21 110/49 (69) 100 07/29/18 03:16 64 30 96 Facial 30 07/29/18 01:30 67 20 97 Facial 30 07/29/18 01:30 96.4 65 21 94/54 (67) 100 07/29/18 00:00 96.9 66 22 95/47 (63) 99 07/29/18 00:00 68 07/29/18 00:00 Room Air 07/28/18 23:11 Nasal Cannula 3.0 32 07/28/18 23:11 97 Nasal Cannula 3.0 32 General Appearance: no apparent distress EENT: other Neck: JVD Rhythm: NSR Cardiovascular: regular rhythm Respiratory/Chest: crackles/rales Abdomen: distended Extremities: other Intake and Output 07/28/18 07/29/18 18:59 06:59 Intake Total 480 ml 360 ml Balance 480 ml 360 ml Intake Oral 480 ml 360 ml # Voids 2 2 # Bowel Movements 6 4 Laboratory Tests Test 07/29/18 06:29 Random Vancomycin Level 16.4 ug/mL Clarisse Daley MD Jul 29, 2018 21:37
--- NOTE | 2018-07-29 22:13 | NUR ---
NURSE NOTES: RT recommended to put BiPAP order as PRN. Pt. does not want to be on BiPAP at this time and O2 saturation has been above 95%
[2018-07-29] MEDS ORDERED: NS 275ml ONE (22:45)
[2018-07-30] VITALS (8 sets, daily range): BP systolic 70–103; BP diastolic 45–61
[2018-07-30] MEDS: Piperacillin/Tazobactam 2.25 GM in D5W 55 ML IVPB SCH ×3 (03:09→18:23)
--- NOTE | 2018-07-30 06:40 | NUR ---
CASE MANAGEMENT:REVIEW 07/30/18 SI: NSTEMI. UTI. PLEURAL EFF 97.0 65 22 90/49 97% ON 3L/NC IS: IV ZOSYN Q8HRS PROCRIT SQ MWF ASA PO QD NEURONTIN PO QD HEPARIN SQ Q12 PROTONIX PO QD : TELEMETRY DCP: FROM [facility]
--- NOTE | 2018-07-30 07:39 | NUR ---
HAND-OFF: Report given to CHAPIS Patino. Pt. is in stable condition. Plan of care endorsed.
--- NOTE | 2018-07-30 07:54 | NUR ---
NURSE NOTES: pt asleep easily arousable, no distress. no sob. left heel dressing is clean dry and intact. will monitor. Addendum: 07/30/18 at 0755 by AKHIL ROSENTHAL RN call light within reach.
[2018-07-30] MEDS: Aspirin Baby 81mg ORAL SCH (08:23)
[2018-07-30] MEDS: Docusate 100mg cap ORAL SCH ×3 (08:23→17:33)
[2018-07-30] MEDS: Nephrovite tab (Rena-Vite) ORAL SCH (08:23)
[2018-07-30] MEDS: Heparin 5000 units/ml inj SUBQ SCH ×2 (08:23→20:22)
--- NOTE | 2018-07-30 09:04 | Pulmonology Progress Note ---
Assessment/Plan Assessment/Plan IMPRESSION: 1. Acute on chronic respiratory failure. 2. Acute hypercapnia. 3. Hypoxemia. 4. Bilateral pleural effusions. 5. Fluid overload. 6. End-stage renal disease. 7. Severe protein-calorie malnutrition. 8. Anemia. 9. Thrombocytopenia. 10. Mild coagulopathy. PLAN repeat ABG ordered still pending monitor acid base no sedation BIPAP likely would need trilogy keep negative impression, plan, and exam edited and reviewed in detail care discussed with RN Subjective Allergies: Coded Allergies: BENAZEPRIL (Verified Allergy, Unknown, 06/12/18) CODEINE (Verified Allergy, Unknown, 06/12/18) INSULIN ASPART (Verified Allergy, Unknown, 06/12/18) INSULIN DETEMIR (Verified Allergy, Unknown, 06/12/18) OPIOIDS - MORPHINE ANALOGUES (Verified Allergy, Unknown, 06/12/18) Subjective care noted and reviewed overall remains awake sitting in bed Objective Last 24 Hour Vital Signs Date Time Temp Pulse Resp B/P (MAP) Pulse Ox O2 Delivery O2 Flow Rate FiO2 07/30/18 07:50 Nasal Cannula 3.0 07/30/18 07:47 96.3 67 20 96/53 (67) 97 07/30/18 04:43 97.0 65 22 90/49 (63) 97 07/30/18 04:00 66 07/30/18 00:00 66 07/30/18 00:00 96.8 65 18 94/61 (72) 99 07/29/18 21:00 Nasal Cannula 3.0 07/29/18 20:00 67 07/29/18 20:00 97.0 70 22 93/54 (67) 97 07/29/18 19:51 97 Nasal Cannula 1.0 24 07/29/18 19:51 Nasal Cannula 1.0 24 07/29/18 19:51 66 18 97 07/29/18 19:28 30 07/29/18 17:23 64 20 97 07/29/18 16:00 96.9 66 20 109/48 (68) 99 07/29/18 16:00 65 07/29/18 15:25 68 22 96 07/29/18 12:00 65 07/29/18 11:26 96.8 69 20 91/50 (64) 100 Intake and Output 07/29/18 07/30/18 19:00 07:00 Intake Total 942.416 ml 200 ml Balance 942.416 ml 200 ml Intake Oral 465 ml 200 ml IV Total 477.416 ml # Bowel Movements 4 2 Objective GENERAL: A well-developed female, comfortable at present. NAD HEENT: Negative. NECK: Supple. no JVD LUNGS: With reduced breath sounds bilaterally. some rhonchi CARDIAC: S1 and S2. Slightly distant systolic murmur noted. No rubs or gallops. ABDOMEN: Soft, nontender. Mild subcutaneous edema. EXTREMITIES: No edema. Prior amputations noted. NEUROLOGIC: Grossly nonfocal. Current Medications Medications (Trade) Dose Ordered Sig/Andre Route PRN Reason Start Time Stop Time Status Last Admin Dose Admin Acetaminophen (Tylenol) 650 mg Q6H PRN ORAL Mild Pain/Temp > 100.5 07/29/18 05:45 08/16/18 23:44 Aspirin (ASA) 81 mg DAILY ORAL 07/29/18 09:00 08/17/18 08:59 07/30/18 08:23 Chlorhexidine Gluconate (Fabiola-Hex 2%) 1 applic DAILY@1999 TOPIC 07/29/18 20:00 08/17/18 19:59 Dextrose (Dextrose 50%) 25 ml Q30M PRN IV Hypoglycemia 07/29/18 02:00 08/17/18 00:29 Dextrose (Dextrose 50%) 50 ml Q30M PRN IV Hypoglycemia 07/29/18 02:00 08/17/18 00:29 Docusate Sodium (Colace) 100 mg THREE TIMES A DAY ORAL 07/29/18 09:00 08/17/18 08:59 Epoetin Marcus (Procrit (for ESRD on dialysis)) 7,000 units TUE-TUE-TUE SUBQ 07/31/18 21:00 08/18/18 20:59 Gabapentin (Neurontin) 100 mg DAILY ORAL 07/29/18 09:00 08/17/18 08:59 07/30/18 08:22 Heparin Sodium (Porcine) (Heparin 5000 units/ml) 5,000 units EVERY 12 HOURS SUBQ 07/29/18 09:00 08/17/18 08:59 Pantoprazole (Protonix) 40 mg DAILY ORAL 07/29/18 09:00 08/17/18 08:59 07/30/18 08:22 Piperacillin Sod/ Tazobactam Sod 2.25 gm/Dextrose 55 ml @ 110 mls/hr Q8H IVPB 07/29/18 02:45 08/04/18 10:44 07/30/18 03:09 Polyethylene Glycol (Miralax) 17 gm DAILYPRN PRN ORAL Constipation 07/29/18 18:00 08/26/18 17:59 Sennosides (Senokot) 17.2 mg QHS ORAL 07/29/18 21:00 08/17/18 20:59 Vancomycin HCl (Vanco rx to dose) 1 ea DAILY PRN MISC Per rx protocol 07/29/18 09:00 08/26/18 18:59 Vitamin B Complex/ Vit C/Folic Acid (Nephrovite) 1 tab DAILY ORAL 07/29/18 09:00 08/17/18 10:59 07/30/18 08:23 Gustavo Rolon MD Jul 30, 2018 09:04
--- NOTE | 2018-07-30 10:22 | NUR ---
DISCHARGE PLANNED THIS [employer] TECHNICIAN RECEIVED CALL FROM JUAN ANTONIO AT [facility] PER JUAN ANTONIO PATIENT CAN RETURN TODAY [facility] ROOM [address] SKILLED T; [phone] FOR NURSE TO NURSE REPORT [facility] HAS BEEN ARRANGED FOR [address] DISCUSSED WITH CHAPIS LANDAVERDE JUAN ANTONIO IS AWARE OF DIALYSIS SCHEDULE RENAL CARE T: [phone] [facility] [phone] - [phone]
--- NOTE | 2018-07-30 10:25 | NUR ---
NURSE NOTES: removed wound vac from left heel wound, wound photo taken and uploaded, packed left heel wound (therahoney and wet to dry dressing and kerlix ) , sacral area redness and st2 (calazime) pt had bmx1, cleaned pt , kept clean and dry.
--- NOTE | 2018-07-30 10:48 | Infectious Diseases Prog Note ---
"Assessment/Plan Assessment/Plan A: 1. enterococcus | streptococcus UTI 2. pneumonia 3. diabetes mellitus 4. hypertension 5. renal failure on hemodialysis 6. history of left foot osteomyelitis &. Hypercanic respiratory failure P 1. continue vancomycin iv, Zosyn Subjective ROS Limited/Unobtainable: Yes Gastrointestinal/Abdominal: Reports: diarrhea Allergies: Coded Allergies: BENAZEPRIL (Verified Allergy, Unknown, 06/12/18) CODEINE (Verified Allergy, Unknown, 06/12/18) INSULIN ASPART (Verified Allergy, Unknown, 06/12/18) INSULIN DETEMIR (Verified Allergy, Unknown, 06/12/18) OPIOIDS - MORPHINE ANALOGUES (Verified Allergy, Unknown, 06/12/18) Objective Vital Signs Last 24 Hour Vital Signs Date Time Temp Pulse Resp B/P (MAP) Pulse Ox O2 Delivery O2 Flow Rate FiO2 07/30/18 07:59 64 07/30/18 07:50 Nasal Cannula 3.0 07/30/18 07:47 96.3 67 20 96/53 (67) 97 07/30/18 07:05 97 Nasal Cannula 2.0 28 07/30/18 07:05 Nasal Cannula 2.0 28 07/30/18 04:43 97.0 65 22 90/49 (63) 97 07/30/18 04:00 66 07/30/18 00:00 66 07/30/18 00:00 96.8 65 18 94/61 (72) 99 07/29/18 21:00 Nasal Cannula 3.0 07/29/18 20:00 67 07/29/18 20:00 97.0 70 22 93/54 (67) 97 07/29/18 19:51 97 Nasal Cannula 1.0 24 07/29/18 19:51 Nasal Cannula 1.0 24 07/29/18 19:51 66 18 97 07/29/18 19:28 30 07/29/18 17:23 64 20 97 07/29/18 16:00 96.9 66 20 109/48 (68) 99 07/29/18 16:00 65 07/29/18 15:25 68 22 96 07/29/18 12:00 65 07/29/18 11:26 96.8 69 20 91/50 (64) 100 Height (Feet): 5 Height (Inches): 7.00 Weight (Pounds): 261 HEENT: mucous membranes moist Respiratory/Chest: lungs clear Cardiovascular: normal rate Abdomen: soft, non tender Extremities: other - R BKA, edema of legs Neurologic/Psychiatric: unresponsiveness Laboratory Tests Test 07/30/18 09:04 Arterial Blood pH Pending Arterial Blood Partial Pressure CO2 Pending Arterial Blood Partial Pressure O2 Pending Arterial Blood HCO3 Pending Arterial Blood Oxygen Saturation Pending Arterial Blood Base Excess Pending Nicola Test Pending Current Medications Medications (Trade) Dose Ordered Sig/Andre Route PRN Reason Start Time Stop Time Status Last Admin Dose Admin Acetaminophen (Tylenol) 650 mg Q6H PRN ORAL Mild Pain/Temp > 100.5 07/29/18 05:45 08/16/18 23:44 Aspirin (ASA) 81 mg DAILY ORAL 07/29/18 09:00 08/17/18 08:59 07/30/18 08:23 Chlorhexidine Gluconate (Fabiola-Hex 2%) 1 applic DAILY@2000 TOPIC 07/29/18 20:00 08/17/18 19:59 Dextrose (Dextrose 50%) 25 ml Q30M PRN IV Hypoglycemia 07/29/18 02:00 08/17/18 00:29 Dextrose (Dextrose 50%) 50 ml Q30M PRN IV Hypoglycemia 07/29/18 02:00 08/17/18 00:29 Docusate Sodium (Colace) 100 mg THREE TIMES A DAY ORAL 07/29/18 09:00 08/17/18 08:59 Epoetin Marcus (Procrit (for ESRD on dialysis)) 7,000 units TUE-TUE-TUE SUBQ 07/31/18 21:00 08/18/18 20:59 Gabapentin (Neurontin) 100 mg DAILY ORAL 07/29/18 09:00 08/17/18 08:59 07/30/18 08:22 Heparin Sodium (Porcine) (Heparin 5000 units/ml) 5,000 units EVERY 12 HOURS SUBQ 07/29/18 09:00 08/17/18 08:59 Pantoprazole (Protonix) 40 mg DAILY ORAL 07/29/18 09:00 08/17/18 08:59 07/30/18 08:22 Piperacillin Sod/ Tazobactam Sod 2.25 gm/Dextrose 55 ml @ 110 mls/hr Q8H IVPB 07/29/18 02:45 08/04/18 10:44 07/30/18 10:38 Polyethylene Glycol (Miralax) 17 gm DAILYPRN PRN ORAL Constipation 07/29/18 18:00 08/26/18 17:59 Sennosides (Senokot) 17.2 mg QHS ORAL 07/29/18 21:00 08/17/18 20:59 Vancomycin HCl (Vanco rx to dose) 1 ea DAILY PRN MISC Per rx protocol 07/29/18 09:00 08/26/18 18:59 Vitamin B Complex/ Vit C/Folic Acid (Nephrovite) 1 tab DAILY ORAL 07/29/18 09:00 08/17/18 10:59 07/30/18 08:23 Joe Melgar MD Jul 30, 2018 10:48"
--- NOTE | 2018-07-30 10:55 | NUR ---
NURSE NOTES: ABG RESULT RECEIVED, MESSAGE LEFT WITH DR ROMO WAITING TO CALL BACK.
[2018-07-30] MEDS ORDERED: Sodium Chloride 500ML 500 ML IV ONE (11:00)
--- NOTE | 2018-07-30 11:27 | NUR ---
NURSE NOTES: Dr. Rolon was notified of ABG result and low BP, new order received, DC to SNF on hold.
--- NOTE | 2018-07-30 11:32 | NUR ---
NURSE NOTES: removed left hand (by the thumb) 22g and reinserted 22g on left hand (by index finger) patent and intact w good blood return, ns 500 bolus infusing. pt sleeping, on bipap. no distress. will monitor. bp improved 88/60
--- NOTE | 2018-07-30 12:10 | Nephrology Progress Note ---
Assessment/Plan Plan Check CXR, ABGs. Results of CXR not available. Clinically much better. Urosepsis? Significance? VRE + Enterococcus Fecalis. To get ID Advise. HD done yesterday. DC to [facility]. No beds yet? HD tomorrow Subjective Subjective Much more alert. Less SOB! CV RR Lungs CTA Abd SNT. E Rt. BKA clean. Urine Strep Viridans + Enterococcus Fecalis. DW ID Objective Objective Last 24 Hour Vital Signs Date Time Temp Pulse Resp B/P (MAP) Pulse Ox O2 Delivery O2 Flow Rate FiO2 07/30/18 11:34 68 88/60 (69) 07/30/18 11:00 66 70/45 (53) 07/30/18 07:59 64 07/30/18 07:50 Nasal Cannula 3.0 07/30/18 07:47 96.3 67 20 96/53 (67) 97 07/30/18 07:05 97 Nasal Cannula 2.0 28 07/30/18 07:05 Nasal Cannula 2.0 28 07/30/18 04:43 97.0 65 22 90/49 (63) 97 07/30/18 04:00 66 07/30/18 00:00 66 07/30/18 00:00 96.8 65 18 94/61 (72) 99 07/29/18 21:00 Nasal Cannula 3.0 07/29/18 20:00 67 07/29/18 20:00 97.0 70 22 93/54 (67) 97 07/29/18 19:51 97 Nasal Cannula 1.0 24 07/29/18 19:51 Nasal Cannula 1.0 24 07/29/18 19:51 66 18 97 07/29/18 19:28 30 07/29/18 17:23 64 20 97 07/29/18 16:00 96.9 66 20 109/48 (68) 99 07/29/18 16:00 65 07/29/18 15:25 68 22 96 Intake and Output 07/29/18 07/30/18 19:00 07:00 Intake Total 942.416 ml 200 ml Balance 942.416 ml 200 ml Intake Oral 465 ml 200 ml IV Total 477.416 ml # Bowel Movements 4 2 Laboratory Tests 07/30/18 09:04: Arterial Blood pH 7.241*L, Arterial Blood Partial Pressure CO2 56.9*H, Arterial Blood Partial Pressure O2 59.8L, Arterial Blood HCO3 23.9, Arterial Blood Oxygen Saturation 86.9*L, Arterial Blood Base Excess -3.6L, Nicola Test Positive Height (Feet): 5 Height (Inches): 7.00 Weight (Pounds): 261 Objective Blind CV RR Lungs CTA Abd SNT. BS + E No CCE Brenda Fuller MD Jul 30, 2018 12:09
--- NOTE | 2018-07-30 12:14 | Nephrology Progress Note ---
Assessment/Plan Plan Check CXR, ABGs. Results of CXR not available. Septic? Urosepsis? Significance? VRE + Enterococcus Fecalis. To get ID Advise. DC on hold HD tomorrow Subjective Subjective BP earlier SBP 70's . SNF DC held! IVF Bolus given Less SOB! CV RR Lungs CTA Abd SNT. E Rt. BKA clean. Urine Strep Viridans + Enterococcus Fecalis. DW ID Objective Objective Last 24 Hour Vital Signs Date Time Temp Pulse Resp B/P (MAP) Pulse Ox O2 Delivery O2 Flow Rate FiO2 07/30/18 11:34 68 88/60 (69) 07/30/18 11:00 66 70/45 (53) 07/30/18 07:59 64 07/30/18 07:50 Nasal Cannula 3.0 07/30/18 07:47 96.3 67 20 96/53 (67) 97 07/30/18 07:05 97 Nasal Cannula 2.0 28 07/30/18 07:05 Nasal Cannula 2.0 28 07/30/18 04:43 97.0 65 22 90/49 (63) 97 07/30/18 04:00 66 07/30/18 00:00 66 07/30/18 00:00 96.8 65 18 94/61 (72) 99 07/29/18 21:00 Nasal Cannula 3.0 07/29/18 20:00 67 07/29/18 20:00 97.0 70 22 93/54 (67) 97 07/29/18 19:51 97 Nasal Cannula 1.0 24 07/29/18 19:51 Nasal Cannula 1.0 24 07/29/18 19:51 66 18 97 07/29/18 19:28 30 07/29/18 17:23 64 20 97 07/29/18 16:00 96.9 66 20 109/48 (68) 99 07/29/18 16:00 65 07/29/18 15:25 68 22 96 Intake and Output 07/29/18 07/30/18 19:00 07:00 Intake Total 942.416 ml 200 ml Balance 942.416 ml 200 ml Intake Oral 465 ml 200 ml IV Total 477.416 ml # Bowel Movements 4 2 Laboratory Tests 07/30/18 09:04: Arterial Blood pH 7.241*L, Arterial Blood Partial Pressure CO2 56.9*H, Arterial Blood Partial Pressure O2 59.8L, Arterial Blood HCO3 23.9, Arterial Blood Oxygen Saturation 86.9*L, Arterial Blood Base Excess -3.6L, Nicola Test Positive Height (Feet): 5 Height (Inches): 7.00 Weight (Pounds): 261 Objective SBP now 88! Blind CV RR Lungs CTA Abd SNT. BS + E No CCE Brenda Fuller MD Jul 30, 2018 12:14
--- NOTE | 2018-07-30 12:33 | NUR ---
NURSE NOTES: dr Fuller aware of dc cancelled today due to hypotensive episode called irc spoke darcie meier ; she is to notify the hd nurse
--- NOTE | 2018-07-30 18:13 | NUR ---
NURSE NOTES: paged dr Fuller x5 times re antidiarrheal prn
--- NOTE | 2018-07-30 19:11 | NUR ---
HAND-OFF: Report given to F[place].
[2018-07-30] MEDS: Lomotil 2.5mg tab ORAL PRN (19:23)
--- NOTE | 2018-07-30 19:45 | NUR ---
NURSE NOTES: RECEIVED PATIENT RESTING IN BED, NO COMPLAINTS OF PAIN AT THIS TIME. FALL PRECAUTIONS IN PLACE: CALL LIGHT AND BEDSIDE TABLE WITHIN REACH, BED IN LOW POSITION AND BED ALARM ON. PLAN OF CARE REVIEWED.
--- NOTE | 2018-07-30 19:52 | Cardiology Progress Note ---
Assessment/Plan Assessment/Plan chronic CHF due to severe MR, her BP today is stable, will check CBC Subjective Subjective alert, not lethargic was off bipap during the day Objective Last 24 Hour Vital Signs Date Time Temp Pulse Resp B/P (MAP) Pulse Ox O2 Delivery O2 Flow Rate FiO2 07/30/18 19:09 97 Nasal Cannula 3.0 32 07/30/18 19:09 Nasal Cannula 3.0 28 07/30/18 16:24 97.0 62 20 102/60 (74) 95 07/30/18 15:37 61 07/30/18 15:10 70 30 100 Facial 30 07/30/18 13:38 60 30 98 Facial 30 07/30/18 12:23 64 103/60 (74) 07/30/18 11:44 64 07/30/18 11:34 68 88/60 (69) 07/30/18 11:10 60 30 98 Facial 30 07/30/18 11:00 66 70/45 (53) 07/30/18 07:59 64 07/30/18 07:50 Nasal Cannula 3.0 07/30/18 07:47 96.3 67 20 96/53 (67) 97 07/30/18 07:05 97 Nasal Cannula 2.0 28 07/30/18 07:05 Nasal Cannula 2.0 28 07/30/18 04:43 97.0 65 22 90/49 (63) 97 07/30/18 04:00 66 07/30/18 00:00 66 07/30/18 00:00 96.8 65 18 94/61 (72) 99 07/29/18 21:00 Nasal Cannula 3.0 07/29/18 20:00 67 07/29/18 20:00 97.0 70 22 93/54 (67) 97 General Appearance: mild distress EENT: other Neck: JVD Rhythm: NSR Cardiovascular: regular rhythm Respiratory/Chest: decreased breath sounds, crackles/rales Abdomen: distended Extremities: other Intake and Output 07/29/18 07/30/18 19:00 07:00 Intake Total 942.416 ml 200 ml Balance 942.416 ml 200 ml Intake Oral 465 ml 200 ml IV Total 477.416 ml # Bowel Movements 4 2 Laboratory Tests Test 07/30/18 09:04 07/30/18 12:10 Arterial Blood pH 7.241 (7.350-7.450) 7.275 (7.350-7.450) Arterial Blood Partial Pressure CO2 56.9 mmHg (35.0-45.0) *H 54.5 mmHg (35.0-45.0) H Arterial Blood Partial Pressure O2 59.8 mmHg (75.0-100.0) L 134.9 mmHg (75.0-100.0) H Arterial Blood HCO3 23.9 mmol/L (22.0-26.0) 24.7 mmol/L (22.0-26.0) Arterial Blood Oxygen Saturation 86.9 % (95-100) *L 98.3 % (95-100) Arterial Blood Base Excess -3.6 (-2-2) L -2.3 (-2-2) L Nicola Test Positive Positive Clarisse Daley MD Jul 30, 2018 19:52
[2018-07-30] MEDS: Dyna-Hex 2% Top Sol 2oz TOPIC SCH (20:18)
[2018-07-30] MEDS: Sennosides 8.6mg tab ORAL SCH (20:21)
[2018-07-30 21:34] LABS: HEMATOCRIT 26.7 % (37.0-47.0); HEMOGLOBIN 7.9 G/DL (12.0-16.0); MEAN CORPUSCULAR VOLUME 93 FL (80-99); PLATELET COUNT 114 K/UL (150-450); RED BLOOD COUNT 2.88 M/UL (4.20-5.40); RED CELL DISTRIBUTION WIDTH 16.7 % (11.6-14.8); WHITE BLOOD COUNT 5.4 K/UL (4.8-10.8)
--- NOTE | 2018-07-30 23:20 | NUR ---
NURSE NOTES: HG-7.9 CALLED AND LEFT MESSAGE FOR DR. OCONNOR.
[2018-07-31] VITALS: BP 96/58
[2018-07-31] MEDS: Piperacillin/Tazobactam 2.25 GM in D5W 55 ML IVPB SCH ×2 (02:39→10:45)
[2018-07-31 04:00] VITALS: BP 93/58
--- NOTE | 2018-07-31 06:13 | NUR ---
NURSE NOTES: PATIENT KEPT CLEAN AND DRY. BED BATH GIVEN X2 DURING SHIFT. CALAZIME LOTION APPLIED TO SACRUM AND PERINEAL AREA. LEFT LEG ELEVATED ON PILLOW WITH HEEL FLOATING. ALL NEEDS ANTICIPATED AND ATTENDED.
--- NOTE | 2018-07-31 07:00 | NUR ---
NURSE NOTES: CALLED [facility] TO CONFIRM APPOINTMENT, HD NURSE CALLED BACK AND WILL BE COMING TODAY.
--- NOTE | 2018-07-31 07:25 | NUR ---
NURSE NOTES: I received the patient resting in bed. Patient awakes to name and alert and oriented x3. Patient does not display any signs of distress or SOB. Bed in the lowest position and call light within reach. Patient set-up to eat breakfast. I will continue to monitor the patient and implement care.
--- NOTE | 2018-07-31 07:29 | NUR ---
HAND-OFF: Report given to CHAPIS DIGGS. PATIENT HAVING BREAKFAST, NO SIGNS OF DISTRESS NOTED.
[2018-07-31 07:59] LABS: HEMATOCRIT 26.1 % (37.0-47.0); HEMOGLOBIN 7.7 G/DL (12.0-16.0); MEAN CORPUSCULAR VOLUME 92 FL (80-99); PLATELET COUNT 129 K/UL (150-450); RED BLOOD COUNT 2.83 M/UL (4.20-5.40)
[2018-07-31 08:00] VITALS: BP 90/47
--- NOTE | 2018-07-31 08:01 | NUR ---
CASE MANAGEMENT:REVIEW 07/31/18 SI: AC/CHR RESPIRATORY FAILURE BP~96/58 99% ON BIPAP PCO2+ 56.9-->54.5 IS: PROCRIT SQ MWF ASA PO QD IV ZOSYN Q8HRS : TELEMETRY STATUS PLAN; DISCHARGE WAS CANCELLED YESTERDAY D/T RISING PCO2 ~ PLACED ON BIPAP
[2018-07-31 08:23] LABS: ALANINE AMINOTRANSFERASE 18 U/L (12-78); ALBUMIN 1.8 G/DL (3.4-5.0); ALBUMIN/GLOBULIN RATIO 0.3 (1.0-2.7); ALKALINE PHOSPHATASE 211 U/L (46-116); ANION GAP 9 mmol/L (5-15); ASPARTATE AMINO TRANSFERASE 15 U/L (15-37); BILIRUBIN,TOTAL 0.3 MG/DL (0.2-1.0); BLOOD UREA NITROGEN 38 mg/dL (7-18); CALCIUM 8.8 MG/DL (8.5-10.1); CARBON DIOXIDE 24 MMOL/L (21-32); CHLORIDE 103 MMOL/L (98-107); CREATININE 4.7 MG/DL (0.55-1.30); POTASSIUM 4.5 MMOL/L (3.5-5.1); SODIUM 136 MMOL/L (136-145)
[2018-07-31] MEDS: Heparin 5000 units/ml inj SUBQ SCH ×2 (09:00→20:37)
[2018-07-31] MEDS: Docusate 100mg cap ORAL SCH ×4 (09:00→17:16)
[2018-07-31] MEDS: Nephrovite tab (Rena-Vite) ORAL SCH (09:23)
[2018-07-31] MEDS: Aspirin Baby 81mg ORAL SCH (09:23)
--- NOTE | 2018-07-31 11:06 | Infectious Diseases Prog Note ---
"Assessment/Plan Assessment/Plan antibiotics ; vancomycin iv, zosyn A 1. enterococcus | streptococcus UTI 2. pneumonia 3. diabetes mellitus 4. hypertension 5. renal failure on hemodialysis 6. history of left foot osteomyelitis P 1. continue vancomycin iv 2 more days 2. d/c zosyn 3. will follow up cultures Subjective Constitutional: Denies: fever, chills Respiratory: Denies: shortness of breath, dry cough Gastrointestinal/Abdominal: Denies: nausea, vomiting, diarrhea Musculoskeletal: Reports: pain Allergies: Coded Allergies: BENAZEPRIL (Verified Allergy, Unknown, 06/12/18) CODEINE (Verified Allergy, Unknown, 06/12/18) INSULIN ASPART (Verified Allergy, Unknown, 06/12/18) INSULIN DETEMIR (Verified Allergy, Unknown, 06/12/18) OPIOIDS - MORPHINE ANALOGUES (Verified Allergy, Unknown, 06/12/18) Objective Vital Signs Last 24 Hour Vital Signs Date Time Temp Pulse Resp B/P (MAP) Pulse Ox O2 Delivery O2 Flow Rate FiO2 07/31/18 09:00 Nasal Cannula 3.0 07/31/18 08:39 Nasal Cannula 3.0 32 07/31/18 08:39 97 Nasal Cannula 3.0 32 07/31/18 08:00 97.1 60 16 90/47 (61) 98 07/31/18 07:39 58 07/31/18 04:00 97.1 62 18 93/58 (70) 97 07/31/18 04:00 59 07/31/18 00:00 97.0 65 18 96/58 (71) 97 07/31/18 00:00 60 07/30/18 22:42 66 30 99 Facial 30 07/30/18 21:55 68 30 100 Facial 30 07/30/18 21:00 Nasal Cannula 3.0 07/30/18 20:00 63 07/30/18 20:00 96.3 63 18 99/52 (68) 99 07/30/18 19:30 30 07/30/18 19:09 97 Nasal Cannula 3.0 32 07/30/18 19:09 Nasal Cannula 3.0 28 07/30/18 16:24 97.0 62 20 102/60 (74) 95 07/30/18 15:37 61 07/30/18 15:10 70 30 100 Facial 30 07/30/18 13:38 60 30 98 Facial 30 07/30/18 12:23 64 103/60 (74) 07/30/18 11:44 64 07/30/18 11:34 68 88/60 (69) 07/30/18 11:10 60 30 98 Facial 30 Height (Feet): 5 Height (Inches): 7.00 Weight (Pounds): 266 Respiratory/Chest: lungs clear Cardiovascular: normal rate, regular rhythm, no gallop/murmur Abdomen: soft, non tender Extremities: other - right stump clean, left foot in dressings Laboratory Tests Test 07/30/18 12:10 07/30/18 21:09 07/31/18 06:30 Arterial Blood pH 7.275 (7.350-7.450) Arterial Blood Partial Pressure CO2 54.5 mmHg (35.0-45.0) H Arterial Blood Partial Pressure O2 134.9 mmHg (75.0-100.0) H Arterial Blood HCO3 24.7 mmol/L (22.0-26.0) Arterial Blood Oxygen Saturation 98.3 % (95-100) Arterial Blood Base Excess -2.3 (-2-2) L Nicola Test Positive White Blood Count 5.4 K/UL (4.8-10.8) 5.0 K/UL (4.8-10.8) Red Blood Count 2.88 M/UL (4.20-5.40) L 2.83 M/UL (4.20-5.40) L Hemoglobin 7.9 G/DL (12.0-16.0) L 7.7 G/DL (12.0-16.0) L Hematocrit 26.7 % (37.0-47.0) L 26.1 % (37.0-47.0) L Mean Corpuscular Volume 93 FL (80-99) 92 FL (80-99) Mean Corpuscular Hemoglobin 27.3 PG (27.0-31.0) 27.3 PG (27.0-31.0) Mean Corpuscular Hemoglobin Concent 29.5 G/DL (32.0-36.0) L 29.6 G/DL (32.0-36.0) L Red Cell Distribution Width 16.7 % (11.6-14.8) H 17.0 % (11.6-14.8) H Platelet Count 114 K/UL (150-450) L 129 K/UL (150-450) L Mean Platelet Volume 8.6 FL (6.5-10.1) 9.7 FL (6.5-10.1) Neutrophils (%) (Auto) % (45.0-75.0) % (45.0-75.0) Lymphocytes (%) (Auto) % (20.0-45.0) % (20.0-45.0) Monocytes (%) (Auto) % (1.0-10.0) % (1.0-10.0) Eosinophils (%) (Auto) % (0.0-3.0) % (0.0-3.0) Basophils (%) (Auto) % (0.0-2.0) % (0.0-2.0) Differential Total Cells Counted 100 100 Neutrophils % (Manual) 65 % (45-75) 65 % (45-75) Lymphocytes % (Manual) 25 % (20-45) 19 % (20-45) L Monocytes % (Manual) 7 % (1-10) 9 % (1-10) Eosinophils % (Manual) 3 % (0-3) 7 % (0-3) H Basophils % (Manual) 0 % (0-2) 0 % (0-2) Band Neutrophils 0 % (0-8) 0 % (0-8) Platelet Estimate Decreased L Decreased L Platelet Morphology Normal Normal Hypochromasia 3+ 2+ Anisocytosis 1+ 1+ Sodium Level 136 MMOL/L (136-145) Potassium Level 4.5 MMOL/L (3.5-5.1) Chloride Level 103 MMOL/L (98-107) Carbon Dioxide Level 24 MMOL/L (21-32) Anion Gap 9 mmol/L (5-15) Blood Urea Nitrogen 38 mg/dL (7-18) H Creatinine 4.7 MG/DL (0.55-1.30) H Estimat Glomerular Filtration Rate 11.2 mL/min (>60) Glucose Level 92 MG/DL (74-106) Calcium Level 8.8 MG/DL (8.5-10.1) Total Bilirubin 0.3 MG/DL (0.2-1.0) Aspartate Amino Transf (AST/SGOT) 15 U/L (15-37) Alanine Aminotransferase (ALT/SGPT) 18 U/L (12-78) Alkaline Phosphatase 211 U/L (46-116) H Total Protein 7.0 G/DL (6.4-8.2) Albumin 1.8 G/DL (3.4-5.0) L Globulin 5.2 g/dL Albumin/Globulin Ratio 0.3 (1.0-2.7) L Current Medications Medications (Trade) Dose Ordered Sig/Andre Route PRN Reason Start Time Stop Time Status Last Admin Dose Admin Acetaminophen (Tylenol) 650 mg Q6H PRN ORAL Mild Pain/Temp > 100.5 07/29/18 05:45 08/16/18 23:44 Aspirin (ASA) 81 mg DAILY ORAL 07/29/18 09:00 08/17/18 08:59 07/31/18 09:23 Chlorhexidine Gluconate (Fabiola-Hex 2%) 1 applic DAILY@2000 TOPIC 07/29/18 20:00 08/17/18 19:59 07/30/18 20:18 Dextrose (Dextrose 50%) 25 ml Q30M PRN IV Hypoglycemia 07/29/18 02:00 08/17/18 00:29 Dextrose (Dextrose 50%) 50 ml Q30M PRN IV Hypoglycemia 07/29/18 02:00 08/17/18 00:29 Diphenoxylate HCl/ Atropine (Lomotil) 2.5 mg Q4H PRN ORAL Diarrhea 07/30/18 19:00 08/29/18 18:59 07/30/18 19:23 Docusate Sodium (Colace) 100 mg THREE TIMES A DAY ORAL 07/29/18 09:00 08/17/18 08:59 Epoetin Marcus (Procrit (for ESRD on dialysis)) 7,000 units TUE-TUE-TUE SUBQ 07/31/18 21:00 08/18/18 20:59 Gabapentin (Neurontin) 100 mg DAILY ORAL 07/29/18 09:00 08/17/18 08:59 07/31/18 09:23 Heparin Sodium (Porcine) (Heparin 5000 units/ml) 5,000 units EVERY 12 HOURS SUBQ 07/29/18 09:00 08/17/18 08:59 Heparin Sodium (Porcine) (Heparin Sod 1000 units/ml 10ml) 2,000 unit ONCE IV 07/31/18 12:15 07/31/18 23:59 Pantoprazole (Protonix) 40 mg DAILY ORAL 07/29/18 09:00 08/17/18 08:59 07/30/18 08:22 Piperacillin Sod/ Tazobactam Sod 2.25 gm/Dextrose 55 ml @ 110 mls/hr Q8H IVPB 07/29/18 02:45 08/04/18 10:44 07/31/18 02:39 Polyethylene Glycol (Miralax) 17 gm DAILYPRN PRN ORAL Constipation 07/29/18 18:00 08/26/18 17:59 Sennosides (Senokot) 17.2 mg QHS ORAL 07/29/18 21:00 08/17/18 20:59 Sodium Chloride 1,000 ml @ 500 mls/hr Q2H PRN IVLG sbp<90 during hd 07/31/18 12:10 07/31/18 23:59 Vancomycin HCl (Vanco rx to dose) 1 ea DAILY PRN MISC Per rx protocol 07/29/18 09:00 08/26/18 18:59 Vitamin B Complex/ Vit C/Folic Acid (Nephrovite) 1 tab DAILY ORAL 07/29/18 09:00 08/17/18 10:59 07/31/18 09:23 Naya Cain MD Jul 31, 2018 11:06"
[2018-07-31 12:00] VITALS: BP 118/67
[2018-07-31] MEDS ORDERED: Heparin Sod 1000 units/ml 10ml IV SCH (12:15)
--- NOTE | 2018-07-31 13:00 | NUR ---
RADIOLOGY DEPT CHEST X-RAY DONE.P.DYE
[2018-07-31 16:00] VITALS: BP 101/58
--- NOTE | 2018-07-31 16:12 | Nephrology Progress Note ---
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 On IV Abx per ID. DC on hold HD MWF. Subjective Subjective BP earlier SBP 70's . SNF DC held! IVF Bolus given Less SOB! On HD now CV RR Lungs CTA Abd SNT. E Rt. BKA clean. Urine Strep Viridans + Enterococcus Fecalis. DW ID Objective Objective Last 24 Hour Vital Signs Date Time Temp Pulse Resp B/P (MAP) Pulse Ox O2 Delivery O2 Flow Rate FiO2 07/31/18 12:00 97.1 65 16 118/67 (84) 99 07/31/18 11:38 61 07/31/18 09:00 Nasal Cannula 3.0 07/31/18 08:39 Nasal Cannula 3.0 32 07/31/18 08:39 97 Nasal Cannula 3.0 32 07/31/18 08:00 97.1 60 16 90/47 (61) 98 07/31/18 07:39 58 07/31/18 04:00 97.1 62 18 93/58 (70) 97 07/31/18 04:00 59 07/31/18 00:00 97.0 65 18 96/58 (71) 97 07/31/18 00:00 60 07/30/18 22:42 66 30 99 Facial 30 07/30/18 21:55 68 30 100 Facial 30 07/30/18 21:00 Nasal Cannula 3.0 07/30/18 20:00 63 07/30/18 20:00 96.3 63 18 99/52 (68) 99 07/30/18 19:30 30 07/30/18 19:09 97 Nasal Cannula 3.0 32 07/30/18 19:09 Nasal Cannula 3.0 28 07/30/18 16:24 97.0 62 20 102/60 (74) 95 Intake and Output 07/30/18 07/31/18 19:00 07:00 Intake Total 420 ml 470 ml Balance 420 ml 470 ml Intake Oral 420 ml 120 ml IV Total 110 ml Other 240 ml # Voids 2 # Bowel Movements 3 2 Laboratory Tests 07/30/18 21:09: White Blood Count 5.4, Red Blood Count 2.88L, Hemoglobin 7.9L, Hematocrit 26.7L , Mean Corpuscular Volume 93, Mean Corpuscular Hemoglobin 27.3, Mean Corpuscular Hemoglobin Concent 29.5L, Red Cell Distribution Width 16.7H, Platelet Count 114L, Mean Platelet Volume 8.6, Neutrophils (%) (Auto) , Lymphocytes (%) (Auto) , Monocytes (%) (Auto) , Eosinophils (%) (Auto) , Basophils (%) (Auto) , Differential Total Cells Counted 100, Neutrophils % ( Manual) 65, Lymphocytes % (Manual) 25, Monocytes % (Manual) 7, Eosinophils % ( Manual) 3, Basophils % (Manual) 0, Band Neutrophils 0, Platelet Estimate DecreasedL, Platelet Morphology Normal, Hypochromasia 3+, Anisocytosis 1+ 07/31/18 06:30: White Blood Count 5.0, Red Blood Count 2.83L, Hemoglobin 7.7L, Hematocrit 26.1L , Mean Corpuscular Volume 92, Mean Corpuscular Hemoglobin 27.3, Mean Corpuscular Hemoglobin Concent 29.6L, Red Cell Distribution Width 17.0H, Platelet Count 129L, Mean Platelet Volume 9.7, Neutrophils (%) (Auto) , Lymphocytes (%) (Auto) , Monocytes (%) (Auto) , Eosinophils (%) (Auto) , Basophils (%) (Auto) , Differential Total Cells Counted 100, Neutrophils % ( Manual) 65, Lymphocytes % (Manual) 19L, Monocytes % (Manual) 9, Eosinophils % ( Manual) 7H, Basophils % (Manual) 0, Band Neutrophils 0, Platelet Estimate DecreasedL, Platelet Morphology Normal, Hypochromasia 2+, Anisocytosis 1+, Sodium Level 136, Potassium Level 4.5, Chloride Level 103, Carbon Dioxide Level 24, Anion Gap 9, Blood Urea Nitrogen 38H, Creatinine 4.7H, Estimat Glomerular Filtration Rate 11.2, Glucose Level 92, Calcium Level 8.8, Total Bilirubin 0.3, Aspartate Amino Transf (AST/SGOT) 15, Alanine Aminotransferase (ALT/SGPT) 18, Alkaline Phosphatase 211H, Total Protein 7.0, Albumin 1.8L, Globulin 5.2, Albumin/Globulin Ratio 0.3L Height (Feet): 5 Height (Inches): 7.00 Weight (Pounds): 266 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 BS + E No CCE Brenda Fuller MD Jul 31, 2018 16:11
--- NOTE | 2018-07-31 16:52 | Diagnostic Imaging Report ---
Indication: Shortness of breath Technique: One view of the chest Comparison: 07/27/2018 Findings: Bilateral pleural effusions are again demonstrated, large. Bilateral interstitial and airspace edema persists, may be slightly worse. The heart size is difficult to assess Impression: Stable large bilateral pleural effusions. Suspect slight worsening of bilateral interstitial and airspace edema.
--- NOTE | 2018-07-31 19:35 | NUR ---
NURSE NOTES: Received pt. and report from CHAPIS Beth. Observe pt. eating dinner in bed. Pt. is A/O x4, IV site intact, asymptomatic, and patent, conveyor monitor is in placed, bed is in the lowest position and locked, call light within reach. No acute distress noted at this time. Will continue plan of care.
--- NOTE | 2018-07-31 19:42 | NUR ---
HAND-OFF: Report given to CHAPIS Sánchez.
[2018-07-31 20:00] VITALS: BP 105/61
[2018-07-31] MEDS: Dyna-Hex 2% Top Sol 2oz TOPIC SCH (20:00)
[2018-07-31] MEDS: Sennosides 8.6mg tab ORAL SCH (20:36)
[2018-07-31] MEDS ORDERED: Epogen (for ESRD on dialysis) SUBQ SCH ×2 (21:00)
--- NOTE | 2018-07-31 22:04 | Pulmonology Progress Note ---
Assessment/Plan Assessment/Plan IMPRESSION: 1. Acute on chronic respiratory failure. 2. Acute hypercapnia. 3. Hypoxemia. 4. Bilateral pleural effusions. 5. Fluid overload. 6. End-stage renal disease. 7. Severe protein-calorie malnutrition. 8. Anemia. 9. Thrombocytopenia. 10. Mild coagulopathy. PLAN repeat ABG ordered and reviewed repeat in am monitor acid base no sedation BIPAP likely would need trilogy keep negative impression, plan, and exam edited and reviewed in detail care discussed with RN Subjective ROS Limited/Unobtainable: Yes Allergies: Coded Allergies: BENAZEPRIL (Verified Allergy, Unknown, 06/12/18) CODEINE (Verified Allergy, Unknown, 06/12/18) INSULIN ASPART (Verified Allergy, Unknown, 06/12/18) INSULIN DETEMIR (Verified Allergy, Unknown, 06/12/18) OPIOIDS - MORPHINE ANALOGUES (Verified Allergy, Unknown, 06/12/18) Subjective care noted and reviewed overall remains awake sitting in bed Objective Last 24 Hour Vital Signs Date Time Temp Pulse Resp B/P (MAP) Pulse Ox O2 Delivery O2 Flow Rate FiO2 07/31/18 16:00 97.8 62 18 101/58 (72) 98 07/31/18 16:00 62 07/31/18 12:00 97.1 65 16 118/67 (84) 99 07/31/18 11:38 61 07/31/18 09:00 Nasal Cannula 3.0 07/31/18 08:39 Nasal Cannula 3.0 32 07/31/18 08:39 97 Nasal Cannula 3.0 32 07/31/18 08:00 97.1 60 16 90/47 (61) 98 07/31/18 07:39 58 07/31/18 04:00 97.1 62 18 93/58 (70) 97 07/31/18 04:00 59 07/31/18 00:00 97.0 65 18 96/58 (71) 97 07/31/18 00:00 60 07/30/18 22:42 66 30 99 Facial 30 Intake and Output 07/30/18 07/31/18 19:00 07:00 Intake Total 420 ml 470 ml Balance 420 ml 470 ml Intake Oral 420 ml 120 ml IV Total 110 ml Other 240 ml # Voids 2 # Bowel Movements 3 2 Objective GENERAL: A well-developed female, comfortable at present. NAD HEENT: Negative. NECK: Supple. no JVD LUNGS: With reduced breath sounds bilaterally. some rhonchi CARDIAC: S1 and S2. Slightly distant systolic murmur noted. No rubs or gallops. ABDOMEN: Soft, nontender. Mild subcutaneous edema. EXTREMITIES: No edema. Prior amputations noted. NEUROLOGIC: Grossly nonfocal. Laboratory Tests 07/31/18 06:30: White Blood Count 5.0, Red Blood Count 2.83L, Hemoglobin 7.7L, Hematocrit 26.1L , Mean Corpuscular Volume 92, Mean Corpuscular Hemoglobin 27.3, Mean Corpuscular Hemoglobin Concent 29.6L, Red Cell Distribution Width 17.0H, Platelet Count 129L, Mean Platelet Volume 9.7, Neutrophils (%) (Auto) , Lymphocytes (%) (Auto) , Monocytes (%) (Auto) , Eosinophils (%) (Auto) , Basophils (%) (Auto) , Differential Total Cells Counted 100, Neutrophils % ( Manual) 65, Lymphocytes % (Manual) 19L, Monocytes % (Manual) 9, Eosinophils % ( Manual) 7H, Basophils % (Manual) 0, Band Neutrophils 0, Platelet Estimate DecreasedL, Platelet Morphology Normal, Hypochromasia 2+, Anisocytosis 1+, Sodium Level 136, Potassium Level 4.5, Chloride Level 103, Carbon Dioxide Level 24, Anion Gap 9, Blood Urea Nitrogen 38H, Creatinine 4.7H, Estimat Glomerular Filtration Rate 11.2, Glucose Level 92, Calcium Level 8.8, Total Bilirubin 0.3, Aspartate Amino Transf (AST/SGOT) 15, Alanine Aminotransferase (ALT/SGPT) 18, Alkaline Phosphatase 211H, Total Protein 7.0, Albumin 1.8L, Globulin 5.2, Albumin/Globulin Ratio 0.3L Current Medications Medications (Trade) Dose Ordered Sig/Andre Route PRN Reason Start Time Stop Time Status Last Admin Dose Admin Acetaminophen (Tylenol) 650 mg Q6H PRN ORAL Mild Pain/Temp > 100.5 07/29/18 05:45 08/16/18 23:44 Aspirin (ASA) 81 mg DAILY ORAL 07/29/18 09:00 08/17/18 08:59 07/31/18 09:23 Chlorhexidine Gluconate (Fabiola-Hex 2%) 1 applic DAILY@1999 TOPIC 07/29/18 20:00 08/17/18 19:59 1/6/19 20:18 Dextrose (Dextrose 50%) 25 ml Q30M PRN IV Hypoglycemia 07/29/18 02:00 08/17/18 00:29 Dextrose (Dextrose 50%) 50 ml Q30M PRN IV Hypoglycemia 07/29/18 02:00 08/17/18 00:29 Diphenoxylate HCl/ Atropine (Lomotil) 2.5 mg Q4H PRN ORAL Diarrhea 07/30/18 19:00 08/29/18 18:59 07/30/18 19:23 Docusate Sodium (Colace) 100 mg THREE TIMES A DAY ORAL 07/29/18 09:00 08/17/18 08:59 Epoetin Marcus (Procrit (for ESRD on dialysis)) 9,000 units TUE-TUE-TUE SUBQ 07/31/18 21:00 08/18/18 20:59 07/31/18 21:26 Gabapentin (Neurontin) 100 mg DAILY ORAL 07/29/18 09:00 08/17/18 08:59 07/31/18 09:23 Heparin Sodium (Porcine) (Heparin 5000 units/ml) 5,000 units EVERY 12 HOURS SUBQ 07/29/18 09:00 08/17/18 08:59 Heparin Sodium (Porcine) (Heparin Sod 1000 units/ml 10ml) 2,000 unit ONCE IV 07/31/18 12:15 07/31/18 23:59 Pantoprazole (Protonix) 40 mg DAILY ORAL 07/29/18 09:00 08/17/18 08:59 07/30/18 08:22 Polyethylene Glycol (Miralax) 17 gm DAILYPRN PRN ORAL Constipation 07/29/18 18:00 08/26/18 17:59 Sennosides (Senokot) 17.2 mg QHS ORAL 07/29/18 21:00 08/17/18 20:59 Sodium Chloride 1,000 ml @ 500 mls/hr Q2H PRN IVLG sbp<90 during hd 07/31/18 12:10 07/31/18 23:59 Vancomycin HCl (Vanco rx to dose) 1 ea DAILY PRN MISC Per rx protocol 07/29/18 09:00 08/26/18 18:59 Vitamin B Complex/ Vit C/Folic Acid (Nephrovite) 1 tab DAILY ORAL 07/29/18 09:00 08/17/18 10:59 07/31/18 09:23 Gustavo Rolon MD Jul 31, 2018 22:04
--- NOTE | 2018-07-31 22:30 | NUR ---
RESPIRATORY THERAPY Pt refused bipap. Explained CO2 is high, pt said "she feels fine." Pt said to come back around 0100. Addendum: 08/01/18 at 146 by ANGELLA HINES RT PT refused bipap again. Explained to pt the benefits of bipap, still refused and requested to come back in an hour. Addendum: 08/01/18 at 146 by ANGELLA HINES RT RN Princess notified.
--- NOTE | 2018-07-31 22:34 | Cardiology Progress Note ---
Assessment/Plan Assessment/Plan CHF, due to severe MR, post endocarditis, left and right heart failure, hypoxic encephalopathy, prognosis is poor, from cardiac standpoint, cannot give her any afterload reduction due to hypotension. d/W Dr Fuller Subjective Subjective The patient is lethargic, but opens her eyes Objective Last 24 Hour Vital Signs Date Time Temp Pulse Resp B/P (MAP) Pulse Ox O2 Delivery O2 Flow Rate FiO2 07/31/18 16:00 97.8 62 18 101/58 (72) 98 07/31/18 16:00 62 07/31/18 12:00 97.1 65 16 118/67 (84) 99 07/31/18 11:38 61 07/31/18 09:00 Nasal Cannula 3.0 07/31/18 08:39 Nasal Cannula 3.0 32 07/31/18 08:39 97 Nasal Cannula 3.0 32 07/31/18 08:00 97.1 60 16 90/47 (61) 98 07/31/18 07:39 58 07/31/18 04:00 97.1 62 18 93/58 (70) 97 07/31/18 04:00 59 07/31/18 00:00 97.0 65 18 96/58 (71) 97 07/31/18 00:00 60 07/30/18 22:42 66 30 99 Facial 30 General Appearance: lethargic EENT: other Neck: JVD Rhythm: NSR Cardiovascular: systolic murmur Respiratory/Chest: decreased breath sounds, crackles/rales Abdomen: distended Extremities: other Intake and Output 07/30/18 07/31/18 19:00 07:00 Intake Total 420 ml 470 ml Balance 420 ml 470 ml Intake Oral 420 ml 120 ml IV Total 110 ml Other 240 ml # Voids 2 # Bowel Movements 3 2 Laboratory Tests Test 07/31/18 06:30 White Blood Count 5.0 K/UL (4.8-10.8) Red Blood Count 2.83 M/UL (4.20-5.40) L Hemoglobin 7.7 G/DL (12.0-16.0) L Hematocrit 26.1 % (37.0-47.0) L Mean Corpuscular Volume 92 FL (80-99) Mean Corpuscular Hemoglobin 27.3 PG (27.0-31.0) Mean Corpuscular Hemoglobin Concent 29.6 G/DL (32.0-36.0) L Red Cell Distribution Width 17.0 % (11.6-14.8) H Platelet Count 129 K/UL (150-450) L Mean Platelet Volume 9.7 FL (6.5-10.1) Neutrophils (%) (Auto) % (45.0-75.0) Lymphocytes (%) (Auto) % (20.0-45.0) Monocytes (%) (Auto) % (1.0-10.0) Eosinophils (%) (Auto) % (0.0-3.0) Basophils (%) (Auto) % (0.0-2.0) Differential Total Cells Counted 100 Neutrophils % (Manual) 65 % (45-75) Lymphocytes % (Manual) 19 % (20-45) L Monocytes % (Manual) 9 % (1-10) Eosinophils % (Manual) 7 % (0-3) H Basophils % (Manual) 0 % (0-2) Band Neutrophils 0 % (0-8) Platelet Estimate Decreased L Platelet Morphology Normal Hypochromasia 2+ Anisocytosis 1+ Sodium Level 136 MMOL/L (136-145) Potassium Level 4.5 MMOL/L (3.5-5.1) Chloride Level 103 MMOL/L (98-107) Carbon Dioxide Level 24 MMOL/L (21-32) Anion Gap 9 mmol/L (5-15) Blood Urea Nitrogen 38 mg/dL (7-18) H Creatinine 4.7 MG/DL (0.55-1.30) H Estimat Glomerular Filtration Rate 11.2 mL/min (>60) Glucose Level 92 MG/DL (74-106) Calcium Level 8.8 MG/DL (8.5-10.1) Total Bilirubin 0.3 MG/DL (0.2-1.0) Aspartate Amino Transf (AST/SGOT) 15 U/L (15-37) Alanine Aminotransferase (ALT/SGPT) 18 U/L (12-78) Alkaline Phosphatase 211 U/L (46-116) H Total Protein 7.0 G/DL (6.4-8.2) Albumin 1.8 G/DL (3.4-5.0) L Globulin 5.2 g/dL Albumin/Globulin Ratio 0.3 (1.0-2.7) L Clarisse Daley Y. MD Jul 31, 2018 22:34
[2018-08-01] VITALS: BP 100/50
[2018-08-01 04:00] VITALS: BP 99/53
--- NOTE | 2018-08-01 06:25 | NUR ---
NURSE NOTES: Pt's blood glucose was 72. Gave pt. some juice until breakfast arrives.
--- NOTE | 2018-08-01 07:00 | NUR ---
HAND-OFF: Report given to CHAPIS Beth. Pt. is in stable condition. Plan of care endorsed.
--- NOTE | 2018-08-01 07:10 | NUR ---
NURSE NOTES: I received the patient awake and alert resting in bed. Patient did not display any signs of distress or SOB. Bed in the lowest position and call light within reach. I will continue to monitor the patient and implement care.
[2018-08-01 08:00] VITALS: BP 89/51
[2018-08-01] MEDS: Heparin 5000 units/ml inj SUBQ SCH ×2 (08:33→20:39)
[2018-08-01] MEDS: Docusate 100mg cap ORAL SCH ×3 (08:33→17:39)
[2018-08-01] MEDS: Nephrovite tab (Rena-Vite) ORAL SCH (08:38)
[2018-08-01] MEDS: Aspirin Baby 81mg ORAL SCH (08:38)
--- NOTE | 2018-08-01 08:49 | NUR ---
NURSE NOTES:WOUND CARE NOTES:L heel pressure injury resolving.Wound base granular -jael . Edges adherent to base of wound (L)3.4cm x (W)3.5cm. Periwound skin is pink dry and intact.Orders received to resume NPWT . Wound cleansed with Saline.Cavilon Skin Barrier wipe applied to borders and periwound.Transparent protective drsg then placed from borders or wound and draped to sylvester/distal L tibia.Granulofoam packing conformed to shape of wound then bridged over transparent drsg to distal /sylvester R Tibia.Wound covered .NPWT placed at distal /sylvester R tibia .NPWT resumed at 125mm/Hg to continuous suction.Further precautions taken to prevent pressure to skin by placing Abd pad under NPWT tubing then L foot wrapped with kerlix. Intertriginous dermatitis abd folds,bilat groin ,Buttocks and medial posterior aspects of both thighs. Fewer satellite lesions noted. Pt continues to be resistive to having staff apply moisture Barrier Paste .Re-educated pt of risks for further skin decline secondary to bowel incontinence. Pt reluctantly agreed to having Barrier paste applied. Tx.Plan:Cleanse L heel wound with Saline.Prep edges and periwound with Cavilon Skin Barrier wipe. Drape edges and Periwound with Transparent drsg.and bridged to away from Heel. Cut foam to conform to shape of wound. .Drape foam over transparent drsg to bridge away from heel.Cover with transparent drsg.Cut opening (Quarter size in diameter) at distal end of foam bridgeand apply Vac.NPWT at 125mm/Hg to continous suction .Change every Tue and . NOTE:PLease Remove NPWT prior to discharge. PAck wound wound with Saline wet to dry drsg when discharged.
--- NOTE | 2018-08-01 10:56 | Infectious Diseases Prog Note ---
"Assessment/Plan Assessment/Plan antibiotics ; vancomycin iv A 1. enterococcus | streptococcus UTI 2. pneumonia 3. diabetes mellitus 4. hypertension 5. renal failure on hemodialysis 6. history of left foot osteomyelitis P 1. continue vancomycin iv 1 more day 2. will follow up cultures Subjective ROS Limited/Unobtainable: Yes Allergies: Coded Allergies: BENAZEPRIL (Verified Allergy, Unknown, 06/12/18) CODEINE (Verified Allergy, Unknown, 06/12/18) INSULIN ASPART (Verified Allergy, Unknown, 06/12/18) INSULIN DETEMIR (Verified Allergy, Unknown, 06/12/18) OPIOIDS - MORPHINE ANALOGUES (Verified Allergy, Unknown, 06/12/18) Objective Vital Signs Last 24 Hour Vital Signs Date Time Temp Pulse Resp B/P (MAP) Pulse Ox O2 Delivery O2 Flow Rate FiO2 08/01/18 09:54 Nasal Cannula 3.0 32 08/01/18 09:54 98 Nasal Cannula 3.0 32 08/01/18 09:00 Nasal Cannula 3.0 08/01/18 08:00 97.2 65 20 89/51 (64) 100 08/01/18 07:42 64 08/01/18 05:14 67 23 99 Facial 30 08/01/18 04:00 97.9 66 20 99/53 (68) 99 08/01/18 04:00 66 08/01/18 03:19 69 23 99 Facial 30 08/01/18 02:15 66 22 99 Facial 30 08/01/18 00:00 67 08/01/18 00:00 98.0 67 18 100/50 (67) 100 07/31/18 21:00 Nasal Cannula 3.0 07/31/18 20:52 100 Nasal Cannula 3.0 32 07/31/18 20:52 Nasal Cannula 3.0 32 07/31/18 20:00 97.7 68 18 105/61 (76) 100 07/31/18 20:00 67 07/31/18 19:28 30 07/31/18 16:00 97.8 62 18 101/58 (72) 98 07/31/18 16:00 62 07/31/18 12:00 97.1 65 16 118/67 (84) 99 07/31/18 11:38 61 Height (Feet): 5 Height (Inches): 7.00 Weight (Pounds): 268 Respiratory/Chest: lungs clear Cardiovascular: normal rate, regular rhythm, no gallop/murmur Abdomen: soft, non tender Extremities: other - right stump clean, left foot in dressings, + left leg edema Laboratory Tests Test 08/01/18 06:45 08/01/18 09:54 Random Vancomycin Level 20.2 ug/mL Arterial Blood pH 7.252 (7.350-7.450) Arterial Blood Partial Pressure CO2 58.7 mmHg (35.0-45.0) *H Arterial Blood Partial Pressure O2 108.8 mmHg (75.0-100.0) H Arterial Blood HCO3 25.3 mmol/L (22.0-26.0) Arterial Blood Oxygen Saturation 97.3 % (95-100) Arterial Blood Base Excess -2.2 (-2-2) L Nicola Test Positive Current Medications Medications (Trade) Dose Ordered Sig/Andre Route PRN Reason Start Time Stop Time Status Last Admin Dose Admin Acetaminophen (Tylenol) 650 mg Q6H PRN ORAL Mild Pain/Temp > 100.5 07/29/18 05:45 08/16/18 23:44 Aspirin (ASA) 81 mg DAILY ORAL 07/29/18 09:00 08/17/18 08:59 08/01/18 08:38 Chlorhexidine Gluconate (Fabiola-Hex 2%) 1 applic DAILY@1999 TOPIC 07/29/18 20:00 08/17/18 19:59 07/30/18 20:18 Dextrose (Dextrose 50%) 25 ml Q30M PRN IV Hypoglycemia 07/29/18 02:00 08/17/18 00:29 Dextrose (Dextrose 50%) 50 ml Q30M PRN IV Hypoglycemia 07/29/18 02:00 08/17/18 00:29 Diphenoxylate HCl/ Atropine (Lomotil) 2.5 mg Q4H PRN ORAL Diarrhea 07/30/18 19:00 08/29/18 18:59 07/30/18 19:23 Docusate Sodium (Colace) 100 mg THREE TIMES A DAY ORAL 07/29/18 09:00 08/17/18 08:59 Epoetin Marcus (Procrit (for ESRD on dialysis)) 9,000 units TUE-WED-TUE SUBQ 07/31/18 21:00 08/18/18 20:59 07/31/18 21:26 Gabapentin (Neurontin) 100 mg DAILY ORAL 07/29/18 09:00 08/17/18 08:59 08/01/18 08:38 Heparin Sodium (Porcine) (Heparin 5000 units/ml) 5,000 units EVERY 12 HOURS SUBQ 07/29/18 09:00 08/17/18 08:59 Pantoprazole (Protonix) 40 mg DAILY ORAL 07/29/18 09:00 08/17/18 08:59 08/01/18 08:38 Polyethylene Glycol (Miralax) 17 gm DAILYPRN PRN ORAL Constipation 07/29/18 18:00 08/26/18 17:59 Sennosides (Senokot) 17.2 mg QHS ORAL 07/29/18 21:00 08/17/18 20:59 Vancomycin HCl (Vanco rx to dose) 1 ea DAILY PRN MISC Per rx protocol 07/29/18 09:00 08/26/18 18:59 Vancomycin/Sodium Chloride 250 ml @ 166.667 mls/hr ONCE IVPB 08/01/18 11:00 08/01/18 13:00 08/01/18 10:46 Vitamin B Complex/ Vit C/Folic Acid (Nephrovite) 1 tab DAILY ORAL 07/29/18 09:00 08/17/18 10:59 08/01/18 08:38 Naya Cain MD Aug 01, 2018 10:56"
[2018-08-01] MEDS ORDERED: Vancomycin 750mg/NS 250ml IVPB SCH (11:00)
[2018-08-01 11:45] VITALS: BP 95/45
--- NOTE | 2018-08-01 12:24 | NUR ---
NURSE NOTES: Dr. Rolon notified of the patient's ABG lab results.
--- NOTE | 2018-08-01 13:01 | Nephrology Progress Note ---
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 On IV Abx per ID. DC on hold HD MWF. Subjective Subjective BP earlier SBP 90's . Has diarrhea SNF DC held! IVF Bolus given Less SOB! On HD now CV RR Lungs CTA Abd SNT. E Rt. BKA clean. Urine Strep Viridans + Enterococcus Fecalis. DW ID Objective Objective Last 24 Hour Vital Signs Date Time Temp Pulse Resp B/P (MAP) Pulse Ox O2 Delivery O2 Flow Rate FiO2 08/01/18 11:45 97.2 20 95/45 (62) 96 08/01/18 11:34 62 08/01/18 09:54 Nasal Cannula 3.0 32 08/01/18 09:54 98 Nasal Cannula 3.0 32 08/01/18 09:00 Nasal Cannula 3.0 08/01/18 08:00 97.2 65 20 89/51 (64) 100 08/01/18 07:42 64 08/01/18 05:14 67 23 99 Facial 30 08/01/18 04:00 97.9 66 20 99/53 (68) 99 08/01/18 04:00 66 08/01/18 03:19 69 23 99 Facial 30 08/01/18 02:15 66 22 99 Facial 30 08/01/18 00:00 67 08/01/18 00:00 98.0 67 18 100/50 (67) 100 07/31/18 21:00 Nasal Cannula 3.0 07/31/18 20:52 100 Nasal Cannula 3.0 32 07/31/18 20:52 Nasal Cannula 3.0 32 07/31/18 20:00 97.7 68 18 105/61 (76) 100 07/31/18 20:00 67 07/31/18 19:28 30 07/31/18 16:00 97.8 62 18 101/58 (72) 98 07/31/18 16:00 62 Intake and Output 07/31/18 08/01/18 19:00 07:00 Intake Total 240 ml Balance 240 ml Intake Oral 240 ml # Voids 1 # Bowel Movements 1 Laboratory Tests 08/01/18 06:45: Random Vancomycin Level 20.2 08/01/18 09:54: Arterial Blood pH 7.252L, Arterial Blood Partial Pressure CO2 58.7*H, Arterial Blood Partial Pressure O2 108.8H, Arterial Blood HCO3 25.3, Arterial Blood Oxygen Saturation 97.3, Arterial Blood Base Excess -2.2L, Nicola Test Positive Height (Feet): 5 Height (Inches): 7.00 Weight (Pounds): 268 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 BS + E No CCE Brenda Fuller MD Aug 01, 2018 13:01
[2018-08-01] MEDS ORDERED: Heparin 1000 units/ml 1ml Vial IV PRN (13:05)
--- NOTE | 2018-08-01 13:47 | NUR ---
RD ASSESSMENT & RECOMMENDATIONS SEE CARE ACTIVITY FOR COMPLETE ASSESSMENT DAILY ESTIMATED NEEDS: Needs based on ESRD on HD, Wounds, (Adj Wt 62kg) 24-30 kcals/kg 9039-6383 total kcals 1.25-2 g protein/kg 76-124 g total protein Fluid per MD, on HD NUTRITION DIAGNOSIS: 1) Increased kcal, pro needs R/T wound healing and renal dysfunction as evidenced by pt w/ left heel, sacral and lt ischial wounds, w/ ESRD on HD. 2) Altered nutrition related lab values R/T diabetes as evidenced by elev BGs (92-204) and POC glu (improved) CURRENT DIET: RENAL / CCHO MED diet w/ HTL PO DIET RECOMMENDATIONS: CCHO MED, RENAL/ texture per PYROTECHNIC MIXER + high prot snacks BID ADDITIONAL RECOMMENDATIONS: 1) Wound healing: Continue Nephrovite x 1, add Dimitry 1pkt BID 2) Obtain dry wt post HD on a calibrated bed scale-> RE-CALIBRATE BED 3) Monitor renal fxn and lytes closely 4) PYROTECHNIC MIXER evaluation for appropriate texure : pt on HTL at this time. During recent adm, pt on thin liquid 5) Rec add SSI- elev BGs (138-248), no recent episodes of hypoglycemia .
[2018-08-01 16:00] VITALS: BP 85/51
--- NOTE | 2018-08-01 18:15 | NUR ---
NURSE NOTES: Patient has an order for dialysis on 08/02. [facility] notified of the order.
--- NOTE | 2018-08-01 19:20 | NUR ---
NURSE NOTES: Received pt. and report from CHAPIS Beth. Observe pt. eating dinner in bed. Pt. is A/O x4, IV site intact, asymptomatic, and patent, monitor worker is in placed, bed is in the lowest position and locked, call light within reach. Wound vac on left heel. No acute distress noted at this time. Will continue plan of care.
--- NOTE | 2018-08-01 19:27 | Pulmonology Progress Note ---
Assessment/Plan Assessment/Plan IMPRESSION: 1. Acute on chronic respiratory failure. 2. Acute hypercapnia. 3. Hypoxemia. 4. Bilateral pleural effusions. 5. Fluid overload. 6. End-stage renal disease. 7. Severe protein-calorie malnutrition. 8. Anemia. 9. Thrombocytopenia. 10. Mild coagulopathy. PLAN repeat ABG ordered and reviewed would need trilogy for improved ventilatory support repeat in am monitor acid base no sedation BIPAP now ordered nightly keep negative impression, plan, and exam edited and reviewed in detail care discussed with RN Subjective ROS Limited/Unobtainable: Yes Allergies: Coded Allergies: BENAZEPRIL (Verified Allergy, Unknown, 06/12/18) CODEINE (Verified Allergy, Unknown, 06/12/18) INSULIN ASPART (Verified Allergy, Unknown, 06/12/18) INSULIN DETEMIR (Verified Allergy, Unknown, 06/12/18) OPIOIDS - MORPHINE ANALOGUES (Verified Allergy, Unknown, 06/12/18) Subjective care noted and reviewed overall remains awake sitting in bed abg not optimized Objective Last 24 Hour Vital Signs Date Time Temp Pulse Resp B/P (MAP) Pulse Ox O2 Delivery O2 Flow Rate FiO2 08/01/18 16:00 97.1 62 20 85/51 (62) 97 08/01/18 15:44 62 08/01/18 11:45 97.2 20 95/45 (62) 96 08/01/18 11:34 62 08/01/18 09:54 Nasal Cannula 3.0 32 08/01/18 09:54 98 Nasal Cannula 3.0 32 08/01/18 09:00 Nasal Cannula 3.0 08/01/18 08:00 97.2 65 20 89/51 (64) 100 08/01/18 07:42 64 08/01/18 05:14 67 23 99 Facial 30 08/01/18 04:00 97.9 66 20 99/53 (68) 99 08/01/18 04:00 66 08/01/18 03:19 69 23 99 Facial 30 08/01/18 02:15 66 22 99 Facial 30 08/01/18 00:00 67 08/01/18 00:00 98.0 67 18 100/50 (67) 100 07/31/18 21:00 Nasal Cannula 3.0 07/31/18 20:52 100 Nasal Cannula 3.0 32 07/31/18 20:52 Nasal Cannula 3.0 32 07/31/18 20:00 97.7 68 18 105/61 (76) 100 07/31/18 20:00 67 07/31/18 19:28 30 Intake and Output 07/31/18 08/01/18 19:00 07:00 Intake Total 240 ml Balance 240 ml Intake Oral 240 ml # Voids 1 # Bowel Movements 1 Objective GENERAL: A well-developed female, comfortable at present. NAD HEENT: Negative. NECK: Supple. no JVD LUNGS: With reduced breath sounds bilaterally. some rhonchi CARDIAC: S1 and S2. Slightly distant systolic murmur noted. No rubs or gallops. ABDOMEN: Soft, nontender. Mild subcutaneous edema. EXTREMITIES: No edema. Prior amputations noted. NEUROLOGIC: Grossly nonfocal. Laboratory Tests 08/01/18 06:45: Random Vancomycin Level 20.2 08/01/18 09:54: Arterial Blood pH 7.252L, Arterial Blood Partial Pressure CO2 58.7*H, Arterial Blood Partial Pressure O2 108.8H, Arterial Blood HCO3 25.3, Arterial Blood Oxygen Saturation 97.3, Arterial Blood Base Excess -2.2L, Nicola Test Positive Current Medications Medications (Trade) Dose Ordered Sig/Andre Route PRN Reason Start Time Stop Time Status Last Admin Dose Admin Acetaminophen (Tylenol) 650 mg Q6H PRN ORAL Mild Pain/Temp > 100.5 07/29/18 05:45 08/16/18 23:44 Aspirin (ASA) 81 mg DAILY ORAL 07/29/18 09:00 08/17/18 08:59 08/01/18 08:38 Chlorhexidine Gluconate (Fabiola-Hex 2%) 1 applic DAILY@1999 TOPIC 07/29/18 20:00 08/17/18 19:59 07/30/18 20:18 Dextrose (Dextrose 50%) 25 ml Q30M PRN IV Hypoglycemia 07/29/18 02:00 08/17/18 00:29 Dextrose (Dextrose 50%) 50 ml Q30M PRN IV Hypoglycemia 07/29/18 02:00 08/17/18 00:29 Diphenoxylate HCl/ Atropine (Lomotil) 2.5 mg Q4H PRN ORAL Diarrhea 07/30/18 19:00 08/29/18 18:59 1/6/19 19:23 Docusate Sodium (Colace) 100 mg THREE TIMES A DAY ORAL 07/29/18 09:00 08/17/18 08:59 Epoetin Marcus (Procrit (for ESRD on dialysis)) 9,000 units TUE-TUE-TUE SUBQ 07/31/18 21:00 08/18/18 20:59 07/31/18 21:26 Gabapentin (Neurontin) 100 mg DAILY ORAL 07/29/18 09:00 08/17/18 08:59 08/01/18 08:38 Heparin Sodium (Porcine) (Heparin 5000 units/ml) 5,000 units EVERY 12 HOURS SUBQ 07/29/18 09:00 08/17/18 08:59 Heparin Sodium (Porcine) (Heparin) 500 unit ONCE PRN IV DIALYSIS 08/01/18 13:05 08/02/18 23:59 Pantoprazole (Protonix) 40 mg DAILY ORAL 07/29/18 09:00 08/17/18 08:59 08/01/18 08:38 Polyethylene Glycol (Miralax) 17 gm DAILYPRN PRN ORAL Constipation 07/29/18 18:00 08/26/18 17:59 Sennosides (Senokot) 17.2 mg QHS ORAL 07/29/18 21:00 08/17/18 20:59 Sodium Chloride 1,000 ml @ 500 mls/hr Q2H PRN IVLG sbp<90 during hd 08/01/18 13:04 08/02/18 23:59 Vancomycin HCl (Vanco rx to dose) 1 ea DAILY PRN MISC Per rx protocol 07/29/18 09:00 08/26/18 18:59 Vitamin B Complex/ Vit C/Folic Acid (Nephrovite) 1 tab DAILY ORAL 07/29/18 09:00 08/17/18 10:59 08/01/18 08:38 Gustavo Rolon MD Aug 01, 2018 19:27
--- NOTE | 2018-08-01 19:30 | NUR ---
HAND-OFF: Report given to CHAPIS Sánchez.
[2018-08-01 20:00] VITALS: BP 99/56
[2018-08-01] MEDS: Dyna-Hex 2% Top Sol 2oz TOPIC SCH (20:00)
[2018-08-01] MEDS: Sennosides 8.6mg tab ORAL SCH (20:38)
[2018-08-02] VITALS (17 sets, daily range): BP systolic 90–116; BP diastolic 26–88
[2018-08-02] MEDS: Lomotil 2.5mg tab ORAL PRN (01:51)
--- NOTE | 2018-08-02 07:32 | NUR ---
NURSE NOTES: I received the patient resting in bed. Patient alert to name. Bed in the lowest position and call light within reach. Patient does not display any signs of distress or SOB. I will continue to monitor the patient and implement care.
--- NOTE | 2018-08-02 07:45 | NUR ---
HAND-OFF: Report given to CHAPIS Beth. Plan of care endorsed.
--- NOTE | 2018-08-02 08:29 | NUR ---
CASE MANAGEMENT:REVIEW 08/02/18 SI: RESPIRATORY FAILURE 97.3 68 18 112/60 96% ON 3L/NC ~ BIPAP PRN PH-7.22 PCO2+59.7 PCO2-44.1 O2 SAT 74.1 IS: ASA PO QD NEURONTIN PO QD HEPARIN SQ Q12 : TELEMETRY STATUS DCP: FROM [facility]
--- NOTE | 2018-08-02 08:50 | Nephrology Progress Note ---
Assessment/Plan Plan ABGs around 8 AM Combined Metabolic + Respiratory Acidosis, Hypoxemia Needs ICU Care. See orders. 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 On IV Abx per ID. DC on hold HD MWF. Subjective Subjective Barely responsive. On BIPAP. No one called about change of condition! Objective Objective Last 24 Hour Vital Signs Date Time Temp Pulse Resp B/P (MAP) Pulse Ox O2 Delivery O2 Flow Rate FiO2 08/02/18 08:29 63 32 100 Facial 50 08/02/18 07:02 Room Air 21 08/02/18 07:02 75 Room Air 21 08/02/18 04:00 97.3 68 18 112/60 (77) 96 08/02/18 03:32 63 08/02/18 00:00 97.4 68 18 104/59 (74) 96 08/02/18 00:00 65 08/01/18 21:00 Nasal Cannula 3.0 08/01/18 20:55 Nasal Cannula 3.0 32 08/01/18 20:55 97 Nasal Cannula 3.0 32 08/01/18 20:00 97.1 69 19 99/56 (70) 98 08/01/18 20:00 67 08/01/18 19:28 30 08/01/18 16:00 97.1 62 20 85/51 (62) 97 08/01/18 15:44 62 08/01/18 11:45 97.2 20 95/45 (62) 96 08/01/18 11:34 62 08/01/18 09:54 Nasal Cannula 3.0 32 08/01/18 09:54 98 Nasal Cannula 3.0 32 08/01/18 09:00 Nasal Cannula 3.0 Intake and Output 08/01/18 08/02/18 18:59 06:59 Intake Total 720 ml 660 ml Balance 720 ml 660 ml Intake Oral 360 ml Other 360 ml 660 ml # Voids 2 3 # Bowel Movements 5 3 Laboratory Tests 08/01/18 09:54: Arterial Blood pH 7.252L, Arterial Blood Partial Pressure CO2 58.7*H, Arterial Blood Partial Pressure O2 108.8H, Arterial Blood HCO3 25.3, Arterial Blood Oxygen Saturation 97.3, Arterial Blood Base Excess -2.2L, Nicola Test Positive 08/02/18 07:45: Sodium Level [Pending], Potassium Level [Pending], Chloride Level [Pending], Carbon Dioxide Level [Pending], Blood Urea Nitrogen [Pending], Creatinine [ Pending], Estimat Glomerular Filtration Rate [Pending], Glucose Level [Pending] , Calcium Level [Pending], Phosphorus Level [Pending], Total Bilirubin [Pending] , Aspartate Amino Transf (AST/SGOT) [Pending], Alanine Aminotransferase (ALT/ SGPT) [Pending], Alkaline Phosphatase [Pending], Total Protein [Pending], Albumin [Pending], Globulin [Pending] 08/02/18 08:05: Arterial Blood pH 7.225*L, Arterial Blood Partial Pressure CO2 59.7*H, Arterial Blood Partial Pressure O2 44.1*L, Arterial Blood HCO3 24.2, Arterial Blood Oxygen Saturation 74.2*L, Arterial Blood Base Excess -3.7L, Nicola Test N/a Height (Feet): 5 Height (Inches): 7.00 Weight (Pounds): 230 Objective SBP now 100 BIPAP Blind CV RR Lungs CTA Abd SNT. BS + E No CCE Barely arouseable, nonfocal, confused Brenda Fuller MD Aug 02, 2018 08:50
[2018-08-02 08:53] LABS: ALANINE AMINOTRANSFERASE 15 U/L (12-78); ALBUMIN 1.9 G/DL (3.4-5.0); ALBUMIN/GLOBULIN RATIO 0.4 (1.0-2.7); ALKALINE PHOSPHATASE 239 U/L (46-116); ANION GAP 7 mmol/L (5-15); ASPARTATE AMINO TRANSFERASE 17 U/L (15-37); BILIRUBIN,TOTAL 0.3 MG/DL (0.2-1.0); BLOOD UREA NITROGEN 34 mg/dL (7-18); CALCIUM 8.4 MG/DL (8.5-10.1); CARBON DIOXIDE 24 MMOL/L (21-32); CHLORIDE 103 MMOL/L (98-107); CREATININE 4.7 MG/DL (0.55-1.30); PHOSPHORUS 5.2 MG/DL (2.5-4.9); POTASSIUM 4.8 MMOL/L (3.5-5.1); SODIUM 134 MMOL/L (136-145)
[2018-08-02] MEDS: Docusate 100mg cap ORAL SCH ×3 (08:58→18:17)
[2018-08-02] MEDS: Heparin 5000 units/ml inj SUBQ SCH ×2 (08:58→21:06)
[2018-08-02] MEDS: Aspirin Baby 81mg ORAL SCH ×2 (09:00→18:17)
[2018-08-02] MEDS: Nephrovite tab (Rena-Vite) ORAL SCH ×2 (09:00→18:17)
--- NOTE | 2018-08-02 10:26 | Emergency Room Report ---
History of Present Illness General Chief Complaint: General Complaint Source: Medical Record, PMD Present Illness Allergies: Coded Allergies: BENAZEPRIL (Verified Allergy, Unknown, 06/12/18) CODEINE (Verified Allergy, Unknown, 06/12/18) INSULIN ASPART (Verified Allergy, Unknown, 06/12/18) INSULIN DETEMIR (Verified Allergy, Unknown, 06/12/18) OPIOIDS - MORPHINE ANALOGUES (Verified Allergy, Unknown, 06/12/18) Nursing Documentation-PMH Past Medical History: No History, Except For Hx Cardiac Problems: Yes - HTN, NSTEMI, Hx Hypertension: Yes - anemia Hx COPD: No - anemia Hx Diabetes: Yes Hx Cancer: No Hx Gastrointestinal Problems: Yes - GERD, Constipation Hx Dialysis: Yes - ESRD, MWF Hx Neurological Problems: No Physical Exam Vital Signs Date Time Temp Pulse Resp B/P (MAP) Pulse Ox O2 Delivery O2 Flow Rate FiO2 07/29/18 07:44 96.4 63 20 92/44 (60) 100 07/29/18 09:00 Nasal Cannula 3.0 07/29/18 19:28 30 Procedures Intubation Intubation : Consent: Emergent Time of Intubation: 10:20 Intubation Method: orotracheal Tube Size (cm): 7.0 Medications: Etomidate, Rocuronium Breath Sounds after Intubation: equal Intubation Complications: no complications Post Intubation Xray: Yes Attempts: One Patient Tolerated: Well Complications: None Medical Decision Making Diagnostic Impression: Primary Impression: Pleural effusion Additional Impressions: UTI (urinary tract infection) Diabetic ulcer of left heel NSTEMI (non-ST elevated myocardial infarction) ESRD (end stage renal disease) on dialysis Last Vital Signs Date Time Temp Pulse Resp B/P (MAP) Pulse Ox O2 Delivery O2 Flow Rate FiO2 08/02/18 09:00 Nasal Cannula 3.0 08/02/18 08:29 63 32 100 50 08/02/18 08:00 96.8 90/40 (57) Disposition: ADMITTED INPATIENT Condition: Serious Scripts Vitamin B Cmplx/Vit C/Folic AC (Nephro-Beryl Tablet) 0.8 Mg Tablet 1 TAB ORAL DAILY for 30 Days, TAB Prov: Brenda Fuller MD 07/26/18 Sennosides (SENNA-GEN) 8.6 Mg Tablet 17.2 MG ORAL QHS for 30 Days, TAB Prov: Brenda Fuller MD 07/26/18 Polyethylene Glycol* (MIRALAX*) 17 Gm Powd.pack 17 GM ORAL DAILY PRN for 30 Days, PACK Prov: Brenda Fuller MD 07/26/18 Pantoprazole* (PROTONIX*) 40 Mg Tablet.dr 40 MG ORAL DAILY for 30 Days, TAB Prov: Brenda Fuller MD 07/26/18 Lisinopril (LISINOPRIL*) 20 Mg Tablet 20 MG ORAL DAILY for 30 Days, TAB Prov: Brenda Fuller MD 07/26/18 Heparin Sod (Porcine) (HEPARIN SODIUM*) 5 000/1 Ml Vial 5000 UNITS SUBQ EVERY 12 HOURS for 30 Days, VIAL Prov: Brenda Fuller MD 07/26/18 Gabapentin* (GABAPENTIN*) 100 Mg Capsule 100 MG ORAL DAILY for 30 Days, CAP Prov: Brenda Fuller MD 07/26/18 Docusate Sodium (DOK) 100 Mg Capsule 100 MG ORAL THREE TIMES A DAY for 30 Days, CAP Prov: Brenda Fuller MD 07/26/18 Chlorhexidine Gluconate* (HIBICLENS*) 118 Ml Liquid 1 APPLIC TOPIC DAILY@1999 for 30 Days, ML Prov: Brenda Fuller MD 07/26/18 Carvedilol (Coreg) 6.25 Mg Tablet 6.25 MG ORAL EVERY 12 HOURS for 30 Days, TAB Prov: Brenda Fuller MD 07/26/18 Aspirin* (ASPIRIN*) 81 Mg Tab.chew 81 MG ORAL DAILY for 30 Days, TAB Prov: Brenda Fuller MD 07/26/18 Amlodipine Besylate (Norvasc) 5 Mg Tablet 5 MG ORAL BID for 30 Days, TAB Prov: Brenda Fuller MD 07/26/18 Acetaminophen* (ACETAMINOPHEN 325MG TABLET*) 325 Mg Tablet 650 MG ORAL Q6H PRN for 30 Days, TAB Prov: Brenda Fuller MD 07/26/18 Referrals: Brenda Fuller MD (PCP) Patient Instructions: Dialysis, Smoking Cessation, Tips for Success, Easy-to- Read, Dialysis Diet, [id number] Jerrell Baxter MD Aug 02, 2018 10:26
--- NOTE | 2018-08-02 10:35 | NUR ---
Intubated Patient with a 7.0 tube at 22cm at the lip. Placed patient on ACVC 14, VT 500, FIO2 100%, PEEP +5. Patient currently stable and on restraints. SX thin clear secretions. Bilateral diminished breath sounds. Vent plugged into red outlet. Alalrms on and audible. Will continue to monitor.
[2018-08-02] MEDS ORDERED: Heparin 1000 units/ml 1ml Vial IV SCH (10:45)
--- NOTE | 2018-08-02 10:45 | NUR ---
NURSE NOTES: Patient report received from CHAPIS Mcclelland. patient received with intubated with an ET-tube of 7.0 at 24CM, patient is currently ventilated with setting of AC14, TV: 500 FIO2 of 100% and peep of 5 saturating at 100% with no distress noted, no secretions noted while suctioning, wound vac connected to the left lower heel, and covered with dressing.
--- NOTE | 2018-08-02 10:45 | NUR ---
HAND-OFF: Report given to CHAPIS Nuñez.
--- NOTE | 2018-08-02 11:17 | NUR ---
NURSE NOTES: Called [phone] ( Myrtle Horne - daughter) left message to call the hospital- to inform family of patient's transfer to ICU
--- NOTE | 2018-08-02 11:45 | NUR ---
NURSE NOTES: Radiologist resulted with Et-tube in correct place, no adjustments needed, patient is saturation at 100% with 100% FIO2 on ventilator setting ac 14, TV: 500, FIO2: 100% peep of 5, will continue plan of care,
--- NOTE | 2018-08-02 11:57 | Diagnostic Imaging Report ---
Indication: Post intubation Technique: One view of the chest Comparison: 07/31/2018 Findings: Interim endotracheal intubation, endotracheal tube tip in good position approximately 3 cm above the kellen. Bilateral pleural effusions are again demonstrated, unchanged. There is improved aeration of the both lungs. However, interstitial edema persists Impression: Satisfactory endotracheal intubation. ICU nurse notified at the time of interpretation Improved aeration of both lungs Persistent interstitial congestion, however. Persistent bilateral pleural effusions
[2018-08-02] MEDS ORDERED: Cefepime HCl 0.5 GM in D5W 55 ML IVPB SCH (12:15)
--- NOTE | 2018-08-02 12:19 | Infectious Diseases Prog Note ---
"Assessment/Plan Assessment/Plan A: 1. enterococcus | streptococcus UTI 2. pneumonia 3. diabetes mellitus 4. hypertension 5. renal failure on hemodialysis 6. history of left foot osteomyelitis &. Hypercapnic respiratory failure 9. Pleural effusion P 1. continue vancomycin iv, start on Cefepime 2. will f/u cultures Subjective ROS Limited/Unobtainable: Yes Constitutional: Reports: other - transferred to ICU Respiratory: Reports: other - intubated this morning Allergies: Coded Allergies: BENAZEPRIL (Verified Allergy, Unknown, 06/12/18) CODEINE (Verified Allergy, Unknown, 06/12/18) INSULIN ASPART (Verified Allergy, Unknown, 06/12/18) INSULIN DETEMIR (Verified Allergy, Unknown, 06/12/18) OPIOIDS - MORPHINE ANALOGUES (Verified Allergy, Unknown, 06/12/18) Objective Vital Signs Last 24 Hour Vital Signs Date Time Temp Pulse Resp B/P (MAP) Pulse Ox O2 Delivery O2 Flow Rate FiO2 08/02/18 10:45 100 08/02/18 10:36 98 14 100 08/02/18 10:35 96 14 Mechanical Ventilator 50.0 100 08/02/18 09:00 Nasal Cannula 3.0 08/02/18 08:29 63 32 100 Facial 50 08/02/18 08:00 96.8 60 20 90/40 (57) 99 08/02/18 08:00 62 08/02/18 07:02 Room Air 21 08/02/18 07:02 75 Room Air 21 08/02/18 04:00 97.3 68 18 112/60 (77) 96 08/02/18 03:32 63 08/02/18 00:00 97.4 68 18 104/59 (74) 96 08/02/18 00:00 65 08/01/18 21:00 Nasal Cannula 3.0 08/01/18 20:55 Nasal Cannula 3.0 32 08/01/18 20:55 97 Nasal Cannula 3.0 32 08/01/18 20:00 97.1 69 19 99/56 (70) 98 08/01/18 20:00 67 08/01/18 19:28 30 08/01/18 16:00 97.1 62 20 85/51 (62) 97 08/01/18 15:44 62 Height (Feet): 5 Height (Inches): 7.00 Weight (Pounds): 230 HEENT: other - orally intubated Respiratory/Chest: lungs clear, other - on ventilator Cardiovascular: normal rate Abdomen: soft, non tender Extremities: other - RBK, legs edema Neurologic/Psychiatric: other - sedated, on restraint Laboratory Tests Test 08/02/18 07:45 08/02/18 08:05 08/02/18 09:25 Sodium Level 134 MMOL/L (136-145) L Potassium Level 4.8 MMOL/L (3.5-5.1) Chloride Level 103 MMOL/L (98-107) Carbon Dioxide Level 24 MMOL/L (21-32) Anion Gap 7 mmol/L (5-15) Blood Urea Nitrogen 34 mg/dL (7-18) H Creatinine 4.7 MG/DL (0.55-1.30) H Estimat Glomerular Filtration Rate 11.2 mL/min (>60) Glucose Level 80 MG/DL (74-106) Calcium Level 8.4 MG/DL (8.5-10.1) L Phosphorus Level 5.2 MG/DL (2.5-4.9) H Total Bilirubin 0.3 MG/DL (0.2-1.0) Aspartate Amino Transf (AST/SGOT) 17 U/L (15-37) Alanine Aminotransferase (ALT/SGPT) 15 U/L (12-78) Alkaline Phosphatase 239 U/L (46-116) H Total Protein 7.1 G/DL (6.4-8.2) Albumin 1.9 G/DL (3.4-5.0) L Globulin 5.2 g/dL Albumin/Globulin Ratio 0.4 (1.0-2.7) L Arterial Blood pH 7.225 (7.350-7.450) 7.214 (7.350-7.450) Arterial Blood Partial Pressure CO2 59.7 mmHg (35.0-45.0) *H 64.3 mmHg (35.0-45.0) *H Arterial Blood Partial Pressure O2 44.1 mmHg (75.0-100.0) 44.2 mmHg (75.0-100.0) Arterial Blood HCO3 24.2 mmol/L (22.0-26.0) 25.4 mmol/L (22.0-26.0) Arterial Blood Oxygen Saturation 74.2 % (95-100) *L 71.7 % (95-100) *L Arterial Blood Base Excess -3.7 (-2-2) L 2.8 (-2-2) H Nicola Test N/a Positive Current Medications Medications (Trade) Dose Ordered Sig/Andre Route PRN Reason Start Time Stop Time Status Last Admin Dose Admin Acetaminophen (Tylenol) 650 mg Q6H PRN ORAL Mild Pain/Temp > 100.5 08/02/18 11:45 08/16/18 23:44 Aspirin (ASA) 81 mg DAILY ORAL 08/02/18 12:30 09/01/18 12:29 Chlorhexidine Gluconate (Fabiola-Hex 2%) 1 applic DAILY@1999 TOPIC 08/02/18 20:00 08/17/18 19:59 Dextrose (Dextrose 50%) 25 ml Q30M PRN IV Hypoglycemia 08/02/18 12:00 08/17/18 11:59 Dextrose (Dextrose 50%) 50 ml Q30M PRN IV Hypoglycemia 08/02/18 12:00 08/17/18 11:59 Diphenoxylate HCl/ Atropine (Lomotil) 2.5 mg Q4H PRN ORAL Diarrhea 08/02/18 12:30 08/29/18 12:29 Docusate Sodium (Colace) 100 mg THREE TIMES A DAY ORAL 08/02/18 13:00 08/17/18 08:59 Epoetin Marcus (Procrit (for ESRD on dialysis)) 9,000 units MON-WED-TUE SUBQ 08/02/18 21:00 08/18/18 20:59 Gabapentin (Neurontin) 100 mg DAILY ORAL 08/02/18 13:00 09/01/18 12:59 Heparin Sodium (Porcine) (Heparin 5000 units/ml) 5,000 units EVERY 12 HOURS SUBQ 08/02/18 21:00 08/17/18 08:59 Heparin Sodium (Porcine) (Heparin) 500 unit ONCE IV 08/02/18 10:45 08/02/18 18:00 Pantoprazole (Protonix) 40 mg ACBREAKFAST ORAL 08/02/18 13:00 09/01/18 12:59 Polyethylene Glycol (Miralax) 17 gm DAILYPRN PRN ORAL Constipation 08/02/18 13:00 08/26/18 12:59 Sennosides (Senokot) 17.2 mg QHS ORAL 08/02/18 21:00 08/17/18 20:59 Sodium Chloride 1,000 ml @ 500 mls/hr Q2H PRN IVLG sbp<90 during hd 08/02/18 12:00 08/02/18 18:00 Vancomycin HCl (Vanco rx to dose) 1 ea DAILY PRN MISC Per rx protocol 08/02/18 09:00 09/01/18 08:59 Vitamin B Complex/ Vit C/Folic Acid (Nephrovite) 1 tab DAILY ORAL 08/02/18 13:00 09/01/18 12:59 Joe Melgar MD Aug 02, 2018 12:18"
[2018-08-02] MEDS ORDERED: Lomotil 2.5mg tab ORAL PRN (12:30)
[2018-08-02] MEDS ORDERED: Miralax 17gm pkt ORAL PRN (13:00)
[2018-08-02 13:39] LABS: BASOPHILS % (AUTO) 0.9 % (0.0-2.0); EOSINOPHILS % (AUTO) 3.9 % (0.0-3.0); HEMATOCRIT 29.2 % (37.0-47.0); HEMOGLOBIN 8.6 G/DL (12.0-16.0); LYMPHOCYTES % (AUTO) 20.8 % (20.0-45.0); MEAN CORPUSCULAR VOLUME 92 FL (80-99); MONOCYTES % (AUTO) 10.1 % (1.0-10.0); NEUTROPHILS % (AUTO) 64.3 % (45.0-75.0); PLATELET COUNT 129 K/UL (150-450); RED BLOOD COUNT 3.17 M/UL (4.20-5.40); RED CELL DISTRIBUTION WIDTH 16.7 % (11.6-14.8); WHITE BLOOD COUNT 4.6 K/UL (4.8-10.8)
--- NOTE | 2018-08-02 13:45 | NUR ---
NURSE NOTES: tolerated insertion of OG-tube well with no distress noted, Tube is at 68cm out of the lips, placement awaiting to be confirmed with X-ray, patient remain on ventilator with settings of AC14, TV: 500, FIO2 100% and peep of 5 with saturations at 100%, HR is at 65-76 with no arrhythmias noted, patient is awake and alert to name and reacts to pain, she is able to open eyes, she attempts to reach for et-tube. patient placed on restraints to prevent extubation, arms are warm and pink with pulses present, will continue plan of care.
[2018-08-02 13:49] LABS: ANION GAP 10 mmol/L (5-15); BLOOD UREA NITROGEN 31 mg/dL (7-18); CARBON DIOXIDE 23 MMOL/L (21-32); CHLORIDE 105 MMOL/L (98-107); CREATININE 4.3 MG/DL (0.55-1.30); POTASSIUM 4.6 MMOL/L (3.5-5.1); SODIUM 138 MMOL/L (136-145)
[2018-08-02] MEDS: Cefepime HCl 0.5 GM in D5W 55 ML IVPB SCH (13:56)
--- NOTE | 2018-08-02 15:40 | NUR ---
NURSE NOTES: Blood Sugar check resulted at 62, D50 given and dr. smith called to inform and obtain orders, patient is awake and alert to name, time, place. she is unable to speak but uses gestures such and moving head right to left, awaiting call back.
--- NOTE | 2018-08-02 16:09 | NUR ---
NURSE NOTES: Blood sugar resulted at 93, patient remains awake and alert, remains on restraints with hemodialysis going, awaiting for dr. smith to return call.
--- NOTE | 2018-08-02 16:28 | Diagnostic Imaging Report ---
Indication: Post nasogastric tube placement Technique: Supine view of the upper abdomen Comparison: 07/04/2018 Findings: There is a nasogastric tube in place, tip projected at the level gastric antrum. Previously demonstrated mild gastric gaseous distention is no longer evident. Visualized small bowel gas appears unremarkable. The included thorax demonstrates bilateral pleural effusions Impression: Satisfactory nasogastric intubation Other findings as noted
[2018-08-02] MEDS ORDERED: D5NS 1,000 ML IV SCH (16:30)
--- NOTE | 2018-08-02 16:45 | NUR ---
NURSE NOTES: Dr. Fuller returned call and ordered to place patient on d5ns at 25ml/hr to maintain BS, patient remains on hemodialysis with no distress noted, she remains on bilateral wrist restraints, hands are pink and warm with pulses present, she remains intubated with setting of ac 14, TV: 500, FIO2: 40% with peep of 5 saturating at 100% with RR of 13.
--- NOTE | 2018-08-02 18:01 | NUR ---
NURSE NOTES: Hemodialysis completed with 1L of fluid removed, BP is 112/88 with HR at 69,
--- NOTE | 2018-08-02 18:53 | NUR ---
NURSE NOTES: Son ( Teja Mcqueen)- called the unit- updated with pt's status.
--- NOTE | 2018-08-02 19:14 | NUR ---
HAND-OFF: Report given to CHAPIS Cook.
--- NOTE | 2018-08-02 19:30 | NUR ---
NURSE NOTES: Received pt in no acute distress, awake, restless. Orally intubated with #7 ETT placed at 24cm over right lip. Appears to be tolerating current vent settings of AC14 TV500 fiO2.40 peep5, saturating 100%. Pt blind on both eyes. NSR on the monitor. Pt has an AVG on right upper arm with mod strong bruit and thrill. HL on left index finger intact, PIV on left hand g 20 intact with IVF of D5NS running at 25ml/h. Afebrile. Bilat soft wrist restaints on as pt tends to be impulsive. s/p right BKA, stump well healed. Left foot has dressing; dry and intact with wound vac on. Canister empty. Will continue to monitor
[2018-08-02] MEDS ORDERED: Dyna-Hex 2% Top Sol 2oz TOPIC SCH (20:00)
--- NOTE | 2018-08-02 20:00 | NUR ---
NURSE NOTES: Called Dr Fuller for sedation order. Order received for Ativan 1 mg IVP q6h PRN.
[2018-08-02] MEDS ORDERED: LORazepam Inj 2mg/ml 1ml IV PRN (20:15)
[2018-08-02] MEDS: Sennosides 8.6mg tab ORAL SCH (20:49)
[2018-08-02] MEDS ORDERED: Epogen (for ESRD on dialysis) SUBQ SCH (21:00)
--- NOTE | 2018-08-02 21:00 | NUR ---
NURSE NOTES: Accucheck 45. Asymptomatic, 1 amp D50 IVP given. Will recheck in 30 mins.
--- NOTE | 2018-08-02 21:30 | NUR ---
NURSE NOTES: Repeat accucheck 84. Will continue to monitor
--- NOTE | 2018-08-02 22:51 | Cardiology Progress Note ---
Assessment/Plan Assessment/Plan CHF, due to severe MR, post endocarditis, left and right heart failure, hypoxic encephalopathy, prognosis is poor, from cardiac standpoint, cannot give her any afterload reduction due to hypotension. d/W Dr Fuller Subjective Subjective The patient was intubated today for hypercapneic respiratory acidosis she is intubated, and alert, somewhat agitated Objective Last 24 Hour Vital Signs Date Time Temp Pulse Resp B/P (MAP) Pulse Ox O2 Delivery O2 Flow Rate FiO2 08/02/18 20:00 98.0 67 20 90/26 (47) 100 08/02/18 20:00 65 08/02/18 20:00 Mechanical Ventilator Mechanical Ventilator Mechanical Ventilator Mechanical Ventilator 08/02/18 19:15 66 15 40 08/02/18 19:00 68 17 102/77 (85) 100 08/02/18 18:00 67 17 112/88 (96) 100 08/02/18 17:28 93 17 40 08/02/18 17:00 70 16 96/48 (64) 100 08/02/18 16:00 40 08/02/18 16:00 97.6 65 15 93/43 (60) 100 08/02/18 16:00 66 08/02/18 15:48 Mechanical Ventilator Mechanical Ventilator Mechanical Ventilator Mechanical Ventilator 08/02/18 15:28 88 19 40 08/02/18 15:00 72 11 98/60 (73) 100 08/02/18 14:00 68 15 99/56 (70) 100 08/02/18 13:02 68 17 100 08/02/18 13:00 66 20 99/56 (70) 100 08/02/18 12:00 100 08/02/18 12:00 Mechanical Ventilator Mechanical Ventilator Mechanical Ventilator Mechanical Ventilator 08/02/18 12:00 66 08/02/18 12:00 97.6 67 15 106/62 (77) 100 08/02/18 11:00 73 15 116/86 (96) 100 08/02/18 10:45 100 08/02/18 10:36 98 14 100 08/02/18 10:35 96 14 Mechanical Ventilator 50.0 100 08/02/18 10:30 78 12 114/61 (78) 100 08/02/18 09:00 Nasal Cannula 3.0 08/02/18 08:29 63 32 100 Facial 50 08/02/18 08:00 96.8 60 20 90/40 (57) 99 08/02/18 08:00 62 08/02/18 07:02 Room Air 21 08/02/18 07:02 75 Room Air 21 08/02/18 04:00 97.3 68 18 112/60 (77) 96 08/02/18 03:32 63 08/02/18 00:00 97.4 68 18 104/59 (74) 96 08/02/18 00:00 65 General Appearance: on vent EENT: other Neck: JVD Rhythm: PACs Cardiovascular: tachycardia, systolic murmur Respiratory/Chest: accessory muscle use, crackles/rales Abdomen: distended Extremities: other - right leg AKA Intake and Output 08/01/18 08/02/18 19:00 07:00 Intake Total 720 ml 660 ml Balance 720 ml 660 ml Intake Oral 360 ml Other 360 ml 660 ml # Voids 2 3 # Bowel Movements 5 3 Laboratory Tests Test 08/02/18 07:45 08/02/18 08:05 08/02/18 09:25 08/02/18 12:45 Sodium Level 134 MMOL/L (136-145) L 138 MMOL/L (136-145) Potassium Level 4.8 MMOL/L (3.5-5.1) 4.6 MMOL/L (3.5-5.1) Chloride Level 103 MMOL/L (98-107) 105 MMOL/L (98-107) Carbon Dioxide Level 24 MMOL/L (21-32) 23 MMOL/L (21-32) Anion Gap 7 mmol/L (5-15) 10 mmol/L (5-15) Blood Urea Nitrogen 34 mg/dL (7-18) H 31 mg/dL (7-18) H Creatinine 4.7 MG/DL (0.55-1.30) H 4.3 MG/DL (0.55-1.30) H Estimat Glomerular Filtration Rate 11.2 mL/min (>60) 12.4 mL/min (>60) Glucose Level 80 MG/DL (74-106) 58 MG/DL (74-106) L Calcium Level 8.4 MG/DL (8.5-10.1) L 8.0 MG/DL (8.5-10.1) L Phosphorus Level 5.2 MG/DL (2.5-4.9) H Total Bilirubin 0.3 MG/DL (0.2-1.0) Aspartate Amino Transf (AST/SGOT) 17 U/L (15-37) Alanine Aminotransferase (ALT/SGPT) 15 U/L (12-78) Alkaline Phosphatase 239 U/L (46-116) H Total Protein 7.1 G/DL (6.4-8.2) Albumin 1.9 G/DL (3.4-5.0) L Globulin 5.2 g/dL Albumin/Globulin Ratio 0.4 (1.0-2.7) L Arterial Blood pH 7.225 (7.350-7.450) 7.214 (7.350-7.450) Arterial Blood Partial Pressure CO2 59.7 mmHg (35.0-45.0) *H 64.3 mmHg (35.0-45.0) *H Arterial Blood Partial Pressure O2 44.1 mmHg (75.0-100.0) 44.2 mmHg (75.0-100.0) Arterial Blood HCO3 24.2 mmol/L (22.0-26.0) 25.4 mmol/L (22.0-26.0) Arterial Blood Oxygen Saturation 74.2 % (95-100) *L 71.7 % (95-100) *L Arterial Blood Base Excess -3.7 (-2-2) L 2.8 (-2-2) H Nicola Test N/a Positive White Blood Count 4.6 K/UL (4.8-10.8) L Red Blood Count 3.17 M/UL (4.20-5.40) L Hemoglobin 8.6 G/DL (12.0-16.0) L Hematocrit 29.2 % (37.0-47.0) L Mean Corpuscular Volume 92 FL (80-99) Mean Corpuscular Hemoglobin 27.0 PG (27.0-31.0) Mean Corpuscular Hemoglobin Concent 29.3 G/DL (32.0-36.0) L Red Cell Distribution Width 16.7 % (11.6-14.8) H Platelet Count 129 K/UL (150-450) L Mean Platelet Volume 9.6 FL (6.5-10.1) Neutrophils (%) (Auto) 64.3 % (45.0-75.0) Lymphocytes (%) (Auto) 20.8 % (20.0-45.0) Monocytes (%) (Auto) 10.1 % (1.0-10.0) H Eosinophils (%) (Auto) 3.9 % (0.0-3.0) H Basophils (%) (Auto) 0.9 % (0.0-2.0) Test 08/02/18 14:50 Arterial Blood pH 7.343 (7.350-7.450) Arterial Blood Partial Pressure CO2 47.7 mmHg (35.0-45.0) H Arterial Blood Partial Pressure O2 398.4 mmHg (75.0-100.0) H Arterial Blood HCO3 25.3 mmol/L (22.0-26.0) Arterial Blood Oxygen Saturation 99.6 % (95-100) Arterial Blood Base Excess -0.5 (-2-2) Nicola Test N/a Clarisse Daley MD Aug 02, 2018 22:51
[2018-08-03] VITALS (24 sets, daily range): BP systolic 80–108; BP diastolic 41–70
--- NOTE | 2018-08-03 | NUR ---
NURSE NOTES: Calm, asleep, bilat soft wrist restraints maintained. IV on left hand patent. Afebrile. NSR. Wound vac to left leg/heel continues but no drainage.
--- NOTE | 2018-08-03 02:00 | NUR ---
NURSE NOTES: Calm, asleep; VSS; No distress
--- NOTE | 2018-08-03 04:30 | NUR ---
NURSE NOTES: Complete bed bath done. No BM. Anuric. Right Upper arm AV graft with mod strong bruit and thrill. No s/s hypoglycemia. Inner thigh and underside of both thighs reddish. Applied calazime ointment and kept dry.
--- NOTE | 2018-08-03 06:00 | NUR ---
NURSE NOTES: Accucheck 43 but pt asymptomatic. I cup of Pratts juice with sugar given via OGT. ! amp D50 given IVP as well. Inserted a new saline lock on left forearm with g 22 angiocath. Applied mitten to left hand (untied) in place of wrist restraint to protect IV site
--- NOTE | 2018-08-03 06:30 | NUR ---
NURSE NOTES: Repeat accucheck 95.
--- NOTE | 2018-08-03 07:10 | NUR ---
HAND-OFF: Report given to Selin Capone RN.
--- NOTE | 2018-08-03 07:19 | NUR ---
RESPIRATORY NOTE: Patient received mechanically ventilated on PB 840 with current ordered vent settings. Patient is orally intubated with EET tube size 7.0 with 24cm at the lip and it is secured with an anchor fast. Bilateral coarse breath sounds were present upon auscultation and scant amount to thick franks secretions were suctioned without incident. There is an ambu bag available at the bedside and the vent is connected to a red outlet. Vent alarms are functional and audible. Will continue to monitor.
[2018-08-03 07:23] LABS: HEMOGLOBIN 7.8 G/DL (12.0-16.0); MEAN CORPUSCULAR VOLUME 91 FL (80-99); PLATELET COUNT 129 K/UL (150-450); RED BLOOD COUNT 2.86 M/UL (4.20-5.40); RED CELL DISTRIBUTION WIDTH 16.6 % (11.6-14.8); WHITE BLOOD COUNT 6.1 K/UL (4.8-10.8)
[2018-08-03 07:32] LABS: ANION GAP 7 mmol/L (5-15); BLOOD UREA NITROGEN 25 mg/dL (7-18); CALCIUM 8.3 MG/DL (8.5-10.1); CARBON DIOXIDE 27 MMOL/L (21-32); CHLORIDE 103 MMOL/L (98-107); CREATININE 3.8 MG/DL (0.55-1.30); POTASSIUM 4.4 MMOL/L (3.5-5.1); SODIUM 137 MMOL/L (136-145)
--- NOTE | 2018-08-03 08:45 | NUR ---
NURSE NOTES: ABG drawn by Rt at the bedside, changed FIO2 to 70% since po2 was 63.3 on 40%. patient remains able to open eyes and open eyes to voice, saturations remains at 100% on monitor at the bedside, ventialtor settings remain ac 14, TV: 500 FIo2 70% and peep of 5. will continue to monitor.
[2018-08-03] MEDS: Heparin 5000 units/ml inj SUBQ SCH ×2 (09:00→21:00)
--- NOTE | 2018-08-03 09:17 | NUR ---
RADIOLOGY DEPT CHEST X-RAY DONE.-P.DYE
--- NOTE | 2018-08-03 09:25 | Infectious Diseases Prog Note ---
"Assessment/Plan Assessment/Plan A: 1. enterococcus | streptococcus UTI 2. pneumonia 3. diabetes mellitus 4. hypertension 5. renal failure on hemodialysis 6. history of left foot osteomyelitis &. Hypercapnic respiratory failure 9. Pleural effusion P 1. continue vancomycin iv, & Cefepime 2. Consider thoracentesis Subjective ROS Limited/Unobtainable: Yes Constitutional: Reports: other - afebrile, stable Allergies: Coded Allergies: BENAZEPRIL (Verified Allergy, Unknown, 06/12/18) CODEINE (Verified Allergy, Unknown, 06/12/18) INSULIN ASPART (Verified Allergy, Unknown, 06/12/18) INSULIN DETEMIR (Verified Allergy, Unknown, 06/12/18) OPIOIDS - MORPHINE ANALOGUES (Verified Allergy, Unknown, 06/12/18) Objective Vital Signs Last 24 Hour Vital Signs Date Time Temp Pulse Resp B/P (MAP) Pulse Ox O2 Delivery O2 Flow Rate FiO2 08/03/18 09:00 68 17 89/41 (57) 100 08/03/18 08:42 70 08/03/18 08:00 40 08/03/18 08:00 Mechanical Ventilator Mechanical Ventilator Mechanical Ventilator Mechanical Ventilator 08/03/18 08:00 68 08/03/18 08:00 98.7 71 16 83/64 (70) 100 08/03/18 07:15 67 14 40 08/03/18 07:11 67 14 90/70 (77) 100 08/03/18 06:00 69 15 92/53 (66) 100 08/03/18 05:13 68 14 40 08/03/18 05:00 71 14 92/41 (58) 100 08/03/18 04:00 68 08/03/18 04:00 Mechanical Ventilator Mechanical Ventilator Mechanical Ventilator Mechanical Ventilator 08/03/18 04:00 40 08/03/18 04:00 98.7 68 18 95/48 (64) 100 08/03/18 03:17 67 16 40 08/03/18 03:00 66 14 89/68 (75) 100 08/03/18 02:00 67 14 90/58 (69) 100 08/03/18 01:00 67 18 93/60 (71) 100 08/03/18 00:40 70 15 40 08/03/18 00:00 Mechanical Ventilator Mechanical Ventilator Mechanical Ventilator Mechanical Ventilator 08/03/18 00:00 67 08/03/18 00:00 98.4 67 15 93/60 (71) 100 08/03/18 00:00 40 08/02/18 23:15 72 16 40 08/02/18 23:00 65 16 90/43 (59) 100 08/02/18 22:00 65 17 96/47 (63) 100 08/02/18 21:00 65 16 113/75 (88) 100 08/02/18 20:00 40 08/02/18 20:00 98.0 67 20 90/26 (47) 100 08/02/18 20:00 65 08/02/18 20:00 Mechanical Ventilator Mechanical Ventilator Mechanical Ventilator Mechanical Ventilator 08/02/18 19:15 66 15 40 08/02/18 19:00 68 17 102/77 (85) 100 08/02/18 18:00 67 17 112/88 (96) 100 08/02/18 17:28 93 17 40 08/02/18 17:00 70 16 96/48 (64) 100 08/02/18 16:00 40 08/02/18 16:00 97.6 65 15 93/43 (60) 100 08/02/18 16:00 66 08/02/18 15:48 Mechanical Ventilator Mechanical Ventilator Mechanical Ventilator Mechanical Ventilator 08/02/18 15:28 88 19 40 08/02/18 15:00 72 11 98/60 (73) 100 08/02/18 14:00 68 15 99/56 (70) 100 08/02/18 13:02 68 17 100 08/02/18 13:00 66 20 99/56 (70) 100 08/02/18 12:00 100 08/02/18 12:00 Mechanical Ventilator Mechanical Ventilator Mechanical Ventilator Mechanical Ventilator 08/02/18 12:00 66 08/02/18 12:00 97.6 67 15 106/62 (77) 100 08/02/18 11:00 73 15 116/86 (96) 100 08/02/18 10:45 100 08/02/18 10:36 98 14 100 08/02/18 10:35 96 14 Mechanical Ventilator 50.0 100 08/02/18 10:30 78 12 114/61 (78) 100 Height (Feet): 5 Height (Inches): 7.00 Weight (Pounds): 224 HEENT: other - orally intubated Respiratory/Chest: decreased breath sounds, other Cardiovascular: normal rate Abdomen: soft, non tender Extremities: other - edema Neurologic/Psychiatric: unresponsiveness Laboratory Tests Test 08/02/18 09:25 08/02/18 12:45 08/02/18 14:50 08/03/18 06:05 Arterial Blood pH 7.214 (7.350-7.450) 7.343 (7.350-7.450) Arterial Blood Partial Pressure CO2 64.3 mmHg (35.0-45.0) *H 47.7 mmHg (35.0-45.0) H Arterial Blood Partial Pressure O2 44.2 mmHg (75.0-100.0) 398.4 mmHg (75.0-100.0) H Arterial Blood HCO3 25.4 mmol/L (22.0-26.0) 25.3 mmol/L (22.0-26.0) Arterial Blood Oxygen Saturation 71.7 % (95-100) *L 99.6 % (95-100) Arterial Blood Base Excess 2.8 (-2-2) H -0.5 (-2-2) Nicola Test Positive N/a White Blood Count 4.6 K/UL (4.8-10.8) L 6.1 K/UL (4.8-10.8) Red Blood Count 3.17 M/UL (4.20-5.40) L 2.86 M/UL (4.20-5.40) L Hemoglobin 8.6 G/DL (12.0-16.0) L 7.8 G/DL (12.0-16.0) L Hematocrit 29.2 % (37.0-47.0) L 26.0 % (37.0-47.0) L Mean Corpuscular Volume 92 FL (80-99) 91 FL (80-99) Mean Corpuscular Hemoglobin 27.0 PG (27.0-31.0) 27.4 PG (27.0-31.0) Mean Corpuscular Hemoglobin Concent 29.3 G/DL (32.0-36.0) L 30.1 G/DL (32.0-36.0) L Red Cell Distribution Width 16.7 % (11.6-14.8) H 16.6 % (11.6-14.8) H Platelet Count 129 K/UL (150-450) L 129 K/UL (150-450) L Mean Platelet Volume 9.6 FL (6.5-10.1) 9.6 FL (6.5-10.1) Neutrophils (%) (Auto) 64.3 % (45.0-75.0) % (45.0-75.0) Lymphocytes (%) (Auto) 20.8 % (20.0-45.0) % (20.0-45.0) Monocytes (%) (Auto) 10.1 % (1.0-10.0) H % (1.0-10.0) Eosinophils (%) (Auto) 3.9 % (0.0-3.0) H % (0.0-3.0) Basophils (%) (Auto) 0.9 % (0.0-2.0) % (0.0-2.0) Sodium Level 138 MMOL/L (136-145) 137 MMOL/L (136-145) Potassium Level 4.6 MMOL/L (3.5-5.1) 4.4 MMOL/L (3.5-5.1) Chloride Level 105 MMOL/L (98-107) 103 MMOL/L (98-107) Carbon Dioxide Level 23 MMOL/L (21-32) 27 MMOL/L (21-32) Anion Gap 10 mmol/L (5-15) 7 mmol/L (5-15) Blood Urea Nitrogen 31 mg/dL (7-18) H 25 mg/dL (7-18) H Creatinine 4.3 MG/DL (0.55-1.30) H 3.8 MG/DL (0.55-1.30) H Estimat Glomerular Filtration Rate 12.4 mL/min (>60) 14.2 mL/min (>60) Glucose Level 58 MG/DL (74-106) L 46 MG/DL (74-106) L Calcium Level 8.0 MG/DL (8.5-10.1) L 8.3 MG/DL (8.5-10.1) L Neutrophils % (Manual) Pending Lymphocytes % (Manual) Pending Platelet Estimate Pending Platelet Morphology Pending Phosphorus Level 4.0 MG/DL (2.5-4.9) Magnesium Level 1.6 MG/DL (1.8-2.4) L Random Vancomycin Level 18.9 ug/mL Test 08/03/18 08:30 Arterial Blood pH 7.390 (7.350-7.450) Arterial Blood Partial Pressure CO2 42.3 mmHg (35.0-45.0) Arterial Blood Partial Pressure O2 63.3 mmHg (75.0-100.0) L Arterial Blood HCO3 25.4 mmol/L (22.0-26.0) Arterial Blood Oxygen Saturation 91.5 % (95-100) L Arterial Blood Base Excess 0.4 (-2-2) Nicola Test Positive Current Medications Medications (Trade) Dose Ordered Sig/Andre Route PRN Reason Start Time Stop Time Status Last Admin Dose Admin Acetaminophen (Tylenol) 650 mg Q6H PRN ORAL Mild Pain/Temp > 100.5 08/02/18 11:45 08/16/18 23:44 Aspirin (ASA) 81 mg DAILY ORAL 08/02/18 12:30 09/01/18 12:29 08/02/18 18:17 Cefepime HCl 0.5 gm/Dextrose 55 ml @ 110 mls/hr Q24H IVPB 08/02/18 13:00 08/09/18 12:59 08/02/18 13:56 Dextrose (Dextrose 50%) 25 ml Q30M PRN IV Hypoglycemia 08/02/18 12:00 08/17/18 11:59 08/02/18 15:34 Dextrose (Dextrose 50%) 50 ml Q30M PRN IV Hypoglycemia 08/02/18 12:00 08/17/18 11:59 08/03/18 05:55 Dextrose/Sodium Chloride 1,000 ml @ 25 mls/hr Q24H IV 08/02/18 16:30 09/01/18 16:29 08/02/18 17:04 Diphenoxylate HCl/ Atropine (Lomotil) 2.5 mg Q4H PRN ORAL Diarrhea 08/02/18 12:30 08/29/18 12:29 Docusate Sodium (Colace) 100 mg THREE TIMES A DAY ORAL 08/02/18 13:00 08/17/18 08:59 08/02/18 18:17 Epoetin Marcus (Procrit (for ESRD on dialysis)) 9,000 units TUE-TUE-TUE SUBQ 08/02/18 21:00 08/18/18 20:59 08/02/18 21:07 Gabapentin (Neurontin) 100 mg DAILY ORAL 08/02/18 13:00 09/01/18 12:59 08/02/18 18:17 Heparin Sodium (Porcine) (Heparin 5000 units/ml) 5,000 units EVERY 12 HOURS SUBQ 08/02/18 21:00 08/17/18 08:59 08/02/18 21:06 Lorazepam (Ativan 2mg/ml 1ml) 1 mg Q6H PRN IV For Anxiety 08/02/18 20:15 08/09/18 20:14 Pantoprazole (Protonix) 40 mg DAILY IVP 08/03/18 09:00 09/02/18 08:59 Polyethylene Glycol (Miralax) 17 gm DAILYPRN PRN ORAL Constipation 08/02/18 13:00 08/26/18 12:59 Sennosides (Senokot) 17.2 mg QHS ORAL 08/02/18 21:00 08/17/18 20:59 Vancomycin HCl (Vanco rx to dose) 1 ea DAILY PRN MISC Per rx protocol 08/02/18 09:00 09/01/18 08:59 Vancomycin HCl 1 gm/Dextrose 275 ml @ 183.708 mls/hr ONCE IVPB 08/03/18 11:00 08/03/18 13:00 Vitamin B Complex/ Vit C/Folic Acid (Nephrovite) 1 tab DAILY ORAL 08/02/18 13:00 09/01/18 12:59 08/02/18 18:17 Joe Melgar MD Aug 03, 2018 09:25"
[2018-08-03] MEDS: Pantoprazole Inj IVP SCH (09:28)
[2018-08-03] MEDS: Nephrovite tab (Rena-Vite) ORAL SCH (09:28)
[2018-08-03] MEDS: Aspirin Baby 81mg ORAL SCH (09:28)
[2018-08-03] MEDS: Docusate 100mg cap ORAL SCH ×3 (09:28→18:02)
--- NOTE | 2018-08-03 09:45 | NUR ---
NURSE NOTES: OG-tube remains in place and morning medication given, no residual noted. no changed to ventilator setting and remains saturating at 100% sao2,will continue to monitor.
--- NOTE | 2018-08-03 09:48 | NUR ---
NURSE NOTES:WOUND CARE FOLLOW-UP NOTES:Pt seen for NPWT to be changed. NPWT removed .NO exudate noted in canister .L heel wound resolving .Wound bed granular at base with minimal sanguineous exudate.Edges adherent to base of wound (L)2.9cm x (W)2.7cm . Periwound clean and intact. Cavilon Skin Barrier wipe applied along edges and periwound. Transparent drsg then placed around wound and bridged to dorsum L foot to create bridge. Wound cleansed with Saline and granulofoam cut to conform to size and shape of wound then bridged over transparent drsg to dorsum L foot and covered.Window then made at distal end of foam bridged for placement of Wound vac.NPWT resumed at 125mm/Hg to continuous suction. ABD padding placed under wound vac tubing to minimize pressure to skin and L foot wrapped with Kerlix. Intertriginous dermatitis bilat breasts folds ,axillae ,abd folds , bilat groin,Buttocks including medial /posterior aspects of both thighs.areas are red with moisture denudements ,scattered satellite lesions perianally and medial aspects of thighs. Tx.Plan:Continue L Heel NPWT at 125mm/Hg to continuous suction medial ,posterior aspects as ordered. Air Fluidized mattress. Apply Moisture Barrier paste to Skin dermatitis with each perineal care. Reposition at least every 2hours or as tolerated. Off-load L heel with pillow.
--- NOTE | 2018-08-03 10:53 | NUR ---
RD ASSESSMENT & RECOMMENDATIONS SEE CARE ACTIVITY FOR COMPLETE ASSESSMENT DAILY ESTIMATED NEEDS: Needs based on ESRD on HD, Wounds, CRITICAL CARE (Adj Wt 71kg) 22-28 kcals/kg 9080-6532 total kcals 1.25-2 g protein/kg 88-142 g total protein Fluid per MD, on HD NUTRITION DIAGNOSIS: 1) Increased kcal, pro needs R/T wound healing and renal dysfunction as evidenced by pt w/ left heel, sacral and lt ischial wounds, w/ ESRD on HD, currently NPO, s/p oral intubation. 2) Altered nutrition related lab values R/T diabetes, clinical condition as evidenced by pt now w/ hypoglycemic episodes w/ POC glu ([phone] 84 45 93) CURRENT DIET:RENAL / CCHO MED diet w/ HTL -> active at this time, pt s/p oral intubation PO DIET RECOMMENDATIONS: S/P EXTUBATION -> CCHO MED, RENAL/ texture per MEAT GRADING MACHINE OPERATOR + high prot snacks BID ENTERAL NUTRITION RECOMMENDATIONS: Nepro @ 40ml/hr x 24 hrs to provide 960ml, 1728kcal, 77g prot, 698ml free water * As medically appropriate, initiate Nepro @ 20ml/hr x 6 hrs, advance 10ml q 4-6 hrs as tolerated to goal rate. * HOB over 30 degrees/ water flush per MD. ADDITIONAL RECOMMENDATIONS: 1) Rec to initiate TF to help prevent further episodes of hypoglycemia 2) WITHOUT TF: consider increasing D5 IVF to help prevent hypoglycemia -current IVF @25ml/hr provides 30g dextrose per day 3) Monitor BGs closely 4) Add Dimitry 1pkt BID for wound healing 5) MEAT GRADING MACHINE OPERATOR eval post extubation for appropriate texture 6) Obtain dry wt post HD on a calibrated bed scale-> RE-CALIBRATE BED
[2018-08-03] MEDS ORDERED: Vancomycin 1gm/D5W 275ml IVPB SCH ×2 (11:00)
--- NOTE | 2018-08-03 11:30 | NUR ---
NURSE NOTES: Blood Sugar check resulted at 62 with patient remaining responsive to commands and tactile touch, she is able to follow commands and move upper extremities, patient remains intubated but is able to move head right to left, D50 given and called Dr. Fuller for orders.
--- NOTE | 2018-08-03 11:50 | NUR ---
NURSE NOTES: wound care provided on the left heel, wound is granulating with edges closing towards the center, wound color noted to be pink and red with scant amount of bleeding, no drainage (0ml) noted in the wound collection chamber, no respiratory distress noted while procedure conducted, will continue plan of care.
--- NOTE | 2018-08-03 12:10 | NUR ---
NURSE NOTES: Following blood sugar check resulted at 190 after patient had received d50 and infused with Vancomycin in d5 solution, she remains following commands, opens eyes and move upper arms, Dr. Fuller called for orders to change D5NS at 25ml/hr. awaiting call back. patient remains intubated with with ET-tube at 7.0/24cm with AC14, TV: 500, FIO2 70% with Peep of 5saturating at 100%. will continue plan of care.
--- NOTE | 2018-08-03 13:08 | NUR ---
CASE MANAGEMENT: REVIEW SI: ESRD . HYPOTENSION T 98.3 HR 67 RR 16 BP 80/54 SAT 100% MECH VENT FIO2 40 H/H 7.8/26.0 BUN 25 CR 3.8 IS: PROCRIT SQ MWF ZOSYN IV Q8HR ASA PO QD LISINOPRIL PO QD COREG PO Q12HR ICU STATUS DCP: PATIENT IS FROM [facility]
[2018-08-03] MEDS: Dextrose 10% 1,000 ML IV SCH (13:24)
--- NOTE | 2018-08-03 14:25 | NUR ---
NURSE NOTES: IV fluids changed to D10 at 30ml/hr. IV solution running on the Left hands 20 G IV, IV checked to have blood return and flushes with no swelling or leaking noted, ventilator setting remains at AC 14, TV: 500, FIO2 at 70 % with peep of 5, Patient pain remains at 0 using the FLAcc scale, she remains with wound vac on left heel and is elevated on a pillow, patient remains NPO except for medication, will continue to monitor.
[2018-08-03] MEDS: Cefepime HCl 0.5 GM in D5W 55 ML IVPB SCH (14:38)
--- NOTE | 2018-08-03 16:06 | Cardiology Progress Note ---
Assessment/Plan Assessment/Plan this patient is very ill and her cardiac problems make her recovery very difficult. She also is hypotensive. There are no medications for severe MR of her type, post endocarditis, and she is not a candidate for surgery Subjective Subjective remains intubated, opens her eyes and becomes agitated with verbal stimuli Objective Last 24 Hour Vital Signs Date Time Temp Pulse Resp B/P (MAP) Pulse Ox O2 Delivery O2 Flow Rate FiO2 08/03/18 15:00 68 15 97/59 (72) 100 08/03/18 14:00 69 15 89/61 (70) 100 08/03/18 13:00 69 17 86/56 (66) 100 08/03/18 12:43 71 17 40 08/03/18 12:00 98.3 80 18 108/59 (75) 100 08/03/18 12:00 78 08/03/18 12:00 Mechanical Ventilator Mechanical Ventilator Mechanical Ventilator Mechanical Ventilator 08/03/18 11:00 67 16 94/46 (62) 100 08/03/18 10:55 67 16 40 08/03/18 10:00 68 17 80/54 (63) 100 08/03/18 09:05 68 16 40 08/03/18 09:00 68 17 89/41 (57) 100 08/03/18 08:42 70 08/03/18 08:00 40 08/03/18 08:00 Mechanical Ventilator Mechanical Ventilator Mechanical Ventilator Mechanical Ventilator 08/03/18 08:00 68 08/03/18 08:00 98.7 71 16 83/64 (70) 100 08/03/18 07:15 67 14 40 08/03/18 07:11 67 14 90/70 (77) 100 08/03/18 06:00 69 15 92/53 (66) 100 08/03/18 05:13 68 14 40 08/03/18 05:00 71 14 92/41 (58) 100 08/03/18 04:00 68 08/03/18 04:00 Mechanical Ventilator Mechanical Ventilator Mechanical Ventilator Mechanical Ventilator 08/03/18 04:00 40 08/03/18 04:00 98.7 68 18 95/48 (64) 100 08/03/18 03:17 67 16 40 08/03/18 03:00 66 14 89/68 (75) 100 08/03/18 02:00 67 14 90/58 (69) 100 08/03/18 01:00 67 18 93/60 (71) 100 08/03/18 00:40 70 15 40 08/03/18 00:00 Mechanical Ventilator Mechanical Ventilator Mechanical Ventilator Mechanical Ventilator 08/03/18 00:00 67 08/03/18 00:00 98.4 67 15 93/60 (71) 100 08/03/18 00:00 40 08/02/18 23:15 72 16 40 08/02/18 23:00 65 16 90/43 (59) 100 08/02/18 22:00 65 17 96/47 (63) 100 08/02/18 21:00 65 16 113/75 (88) 100 08/02/18 20:00 40 08/02/18 20:00 98.0 67 20 90/26 (47) 100 08/02/18 20:00 65 08/02/18 20:00 Mechanical Ventilator Mechanical Ventilator Mechanical Ventilator Mechanical Ventilator 08/02/18 19:15 66 15 40 08/02/18 19:00 68 17 102/77 (85) 100 08/02/18 18:00 67 17 112/88 (96) 100 08/02/18 17:28 93 17 40 08/02/18 17:00 70 16 96/48 (64) 100 General Appearance: on vent EENT: other - right eye blind Neck: JVD Rhythm: NSR Cardiovascular: systolic murmur, gallop/S3 Respiratory/Chest: accessory muscle use, crackles/rales Abdomen: distended Intake and Output 08/02/18 08/03/18 18:59 06:59 Intake Total 110 ml 505 ml Output Total 1000 ml 0 ml Balance -890 ml 505 ml Intake Oral 0 ml 0 ml IV Total 80 ml 325 ml Other 30 ml 180 ml Output Urine Total 0 ml 0 ml Hemodialysis UF 1000 ml Laboratory Tests Test 08/03/18 06:05 08/03/18 08:30 White Blood Count 6.1 K/UL (4.8-10.8) Red Blood Count 2.86 M/UL (4.20-5.40) L Hemoglobin 7.8 G/DL (12.0-16.0) L Hematocrit 26.0 % (37.0-47.0) L Mean Corpuscular Volume 91 FL (80-99) Mean Corpuscular Hemoglobin 27.4 PG (27.0-31.0) Mean Corpuscular Hemoglobin Concent 30.1 G/DL (32.0-36.0) L Red Cell Distribution Width 16.6 % (11.6-14.8) H Platelet Count 129 K/UL (150-450) L Mean Platelet Volume 9.6 FL (6.5-10.1) Neutrophils (%) (Auto) % (45.0-75.0) Lymphocytes (%) (Auto) % (20.0-45.0) Monocytes (%) (Auto) % (1.0-10.0) Eosinophils (%) (Auto) % (0.0-3.0) Basophils (%) (Auto) % (0.0-2.0) Differential Total Cells Counted 100 Neutrophils % (Manual) 69 % (45-75) Lymphocytes % (Manual) 14 % (20-45) L Monocytes % (Manual) 10 % (1-10) Eosinophils % (Manual) 7 % (0-3) H Basophils % (Manual) 0 % (0-2) Band Neutrophils 0 % (0-8) Platelet Estimate Decreased L Platelet Morphology Normal Hypochromasia 2+ Anisocytosis 1+ Sodium Level 137 MMOL/L (136-145) Potassium Level 4.4 MMOL/L (3.5-5.1) Chloride Level 103 MMOL/L (98-107) Carbon Dioxide Level 27 MMOL/L (21-32) Anion Gap 7 mmol/L (5-15) Blood Urea Nitrogen 25 mg/dL (7-18) H Creatinine 3.8 MG/DL (0.55-1.30) H Estimat Glomerular Filtration Rate 14.2 mL/min (>60) Glucose Level 46 MG/DL (74-106) L Calcium Level 8.3 MG/DL (8.5-10.1) L Phosphorus Level 4.0 MG/DL (2.5-4.9) Magnesium Level 1.6 MG/DL (1.8-2.4) L Random Vancomycin Level 18.9 ug/mL Arterial Blood pH 7.390 (7.350-7.450) Arterial Blood Partial Pressure CO2 42.3 mmHg (35.0-45.0) Arterial Blood Partial Pressure O2 63.3 mmHg (75.0-100.0) L Arterial Blood HCO3 25.4 mmol/L (22.0-26.0) Arterial Blood Oxygen Saturation 91.5 % (95-100) L Arterial Blood Base Excess 0.4 (-2-2) Nicola Test Positive Microbiology Date/Time Source Procedure Growth Status 08/02/18 02:30 Stool Clostridium difficile Toxin Assay - Final Complete Clarisse Daley MD Aug 03, 2018 16:06
--- NOTE | 2018-08-03 16:08 | NUR ---
Social Service Note Patient transferred to ICU and is now orally intubated. SW spoke with patient's dgt Myrtle Ozzie [phone]. Dgt states she has been updated regarding patient's condition. SW addressed code status. POLST completed by patient 07/14/2018 indicates full code, full treatment and long-term artificial nutrition. Dgt will continue to respect patient's wishes. Dgt and Son Teja [phone] will discuss together further treatment plan of care as needed. Will continue to monitor and assist as needed.
--- NOTE | 2018-08-03 16:27 | NUR ---
NURSE NOTES: Patient remains saturating at 100% sao2 on fio2 of 70% with ac 14, TV: 500 and peep of 5, sputum culture collected and sent to lab for analysis, secretions noted to be tanish-yellow. remains on D10 running at 30ml/hr through left hand IV, IV remains patent with blood return present and no swelling or leaking, there is no redness at the insertion site or on the vein, wound vac remains with 0 ml drainage on the collection chamber. kerlex wrap remains dry and intact, AV-shunt remains patent with bruit and thrill present, will continue plan of care.
--- NOTE | 2018-08-03 16:52 | Diagnostic Imaging Report ---
Indication: Dyspnea Technique: One view of the chest Comparison: 08/02/2018 Findings: Endotracheal tube projects just above the kellen. Nasogastric tube tip position is poorly visualized, obscured by overlying tissue. Bilateral left greater than right large pleural effusions are again demonstrated. Interstitial congestive changes are probably stable allowing for differences in technique. Impression: Essentially unchanged, over one day, findings as above. Note slightly lower position of endotracheal tube
--- NOTE | 2018-08-03 17:01 | Pulmonology Progress Note ---
Assessment/Plan Assessment/Plan IMPRESSION: 1. Acute on chronic respiratory failure. 2. Acute hypercapnia. 3. Hypoxemia. 4. Bilateral pleural effusions. 5. Fluid overload. 6. End-stage renal disease. 7. Severe protein-calorie malnutrition. 8. Anemia. 9. Thrombocytopenia. 10. Mild coagulopathy. PLAN likely needs trach with poor baseline likely has obesity hypoventilation would recommend to proceed and place in subacute monitor acid base sedation will follow up nutrition keep negative medications/laboratory data/nursing notes/ICU care reviewed in detail note reviewed and edited care discussed with RN and RT ICU time spent 40 minutes Subjective ROS Limited/Unobtainable: Yes Allergies: Coded Allergies: BENAZEPRIL (Verified Allergy, Unknown, 06/12/18) CODEINE (Verified Allergy, Unknown, 06/12/18) INSULIN ASPART (Verified Allergy, Unknown, 06/12/18) INSULIN DETEMIR (Verified Allergy, Unknown, 06/12/18) OPIOIDS - MORPHINE ANALOGUES (Verified Allergy, Unknown, 06/12/18) Subjective care noted and reviewed on the vent ICU care reviewed Objective Last 24 Hour Vital Signs Date Time Temp Pulse Resp B/P (MAP) Pulse Ox O2 Delivery O2 Flow Rate FiO2 08/03/18 16:53 71 17 40 08/03/18 15:00 68 15 97/59 (72) 100 08/03/18 14:57 68 14 40 08/03/18 14:00 69 15 89/61 (70) 100 08/03/18 13:00 69 17 86/56 (66) 100 08/03/18 12:43 71 17 40 08/03/18 12:00 98.3 80 18 108/59 (75) 100 08/03/18 12:00 78 08/03/18 12:00 Mechanical Ventilator Mechanical Ventilator Mechanical Ventilator Mechanical Ventilator 08/03/18 11:00 67 16 94/46 (62) 100 08/03/18 10:55 67 16 40 08/03/18 10:00 68 17 80/54 (63) 100 08/03/18 09:05 68 16 40 08/03/18 09:00 68 17 89/41 (57) 100 08/03/18 08:42 70 08/03/18 08:00 40 08/03/18 08:00 Mechanical Ventilator Mechanical Ventilator Mechanical Ventilator Mechanical Ventilator 08/03/18 08:00 68 08/03/18 08:00 98.7 71 16 83/64 (70) 100 08/03/18 07:15 67 14 40 08/03/18 07:11 67 14 90/70 (77) 100 08/03/18 06:00 69 15 92/53 (66) 100 08/03/18 05:13 68 14 40 08/03/18 05:00 71 14 92/41 (58) 100 08/03/18 04:00 68 08/03/18 04:00 Mechanical Ventilator Mechanical Ventilator Mechanical Ventilator Mechanical Ventilator 08/03/18 04:00 40 08/03/18 04:00 98.7 68 18 95/48 (64) 100 08/03/18 03:17 67 16 40 08/03/18 03:00 66 14 89/68 (75) 100 08/03/18 02:00 67 14 90/58 (69) 100 08/03/18 01:00 67 18 93/60 (71) 100 08/03/18 00:40 70 15 40 08/03/18 00:00 Mechanical Ventilator Mechanical Ventilator Mechanical Ventilator Mechanical Ventilator 08/03/18 00:00 67 08/03/18 00:00 98.4 67 15 93/60 (71) 100 08/03/18 00:00 40 08/02/18 23:15 72 16 40 08/02/18 23:00 65 16 90/43 (59) 100 08/02/18 22:00 65 17 96/47 (63) 100 08/02/18 21:00 65 16 113/75 (88) 100 08/02/18 20:00 40 08/02/18 20:00 98.0 67 20 90/26 (47) 100 08/02/18 20:00 65 08/02/18 20:00 Mechanical Ventilator Mechanical Ventilator Mechanical Ventilator Mechanical Ventilator 08/02/18 19:15 66 15 40 08/02/18 19:00 68 17 102/77 (85) 100 08/02/18 18:00 67 17 112/88 (96) 100 08/02/18 17:28 93 17 40 Intake and Output 08/02/18 08/03/18 18:59 06:59 Intake Total 110 ml 505 ml Output Total 1000 ml 0 ml Balance -890 ml 505 ml Intake Oral 0 ml 0 ml IV Total 80 ml 325 ml Other 30 ml 180 ml Output Urine Total 0 ml 0 ml Hemodialysis UF 1000 ml Objective GENERAL: A well-developed female,on the vent; sedated HEENT: Negative. NECK: Supple. no JVD LUNGS: With reduced breath sounds bilaterally. minimal rhonchi CARDIAC: S1 and S2. Slightly distant systolic murmur noted. No rubs or gallops. ABDOMEN: Soft, nontender. Mild subcutaneous edema. EXTREMITIES: No edema. Prior amputations noted. NEUROLOGIC: Grossly nonfocal. reviewed and edited Microbiology Date/Time Source Procedure Growth Status 08/02/18 02:30 Stool Clostridium difficile Toxin Assay - Final Complete Laboratory Tests 08/03/18 06:05: White Blood Count 6.1, Red Blood Count 2.86L, Hemoglobin 7.8L, Hematocrit 26.0L , Mean Corpuscular Volume 91, Mean Corpuscular Hemoglobin 27.4, Mean Corpuscular Hemoglobin Concent 30.1L, Red Cell Distribution Width 16.6H, Platelet Count 129L, Mean Platelet Volume 9.6, Neutrophils (%) (Auto) , Lymphocytes (%) (Auto) , Monocytes (%) (Auto) , Eosinophils (%) (Auto) , Basophils (%) (Auto) , Differential Total Cells Counted 100, Neutrophils % ( Manual) 69, Lymphocytes % (Manual) 14L, Monocytes % (Manual) 10, Eosinophils % ( Manual) 7H, Basophils % (Manual) 0, Band Neutrophils 0, Platelet Estimate DecreasedL, Platelet Morphology Normal, Hypochromasia 2+, Anisocytosis 1+, Sodium Level 137, Potassium Level 4.4, Chloride Level 103, Carbon Dioxide Level 27, Anion Gap 7, Blood Urea Nitrogen 25H, Creatinine 3.8H, Estimat Glomerular Filtration Rate 14.2, Glucose Level 46L, Calcium Level 8.3L, Phosphorus Level 4.0, Magnesium Level 1.6L, Random Vancomycin Level 18.9 08/03/18 08:30: Arterial Blood pH 7.390, Arterial Blood Partial Pressure CO2 42.3, Arterial Blood Partial Pressure O2 63.3L, Arterial Blood HCO3 25.4, Arterial Blood Oxygen Saturation 91.5L, Arterial Blood Base Excess 0.4, Nicola Test Positive Current Medications Medications (Trade) Dose Ordered Sig/Andre Route PRN Reason Start Time Stop Time Status Last Admin Dose Admin Acetaminophen (Tylenol) 650 mg Q6H PRN ORAL Mild Pain/Temp > 100.5 08/02/18 11:45 08/16/18 23:44 Aspirin (ASA) 81 mg DAILY ORAL 08/02/18 12:30 09/01/18 12:29 08/03/18 09:28 Cefepime HCl 0.5 gm/Dextrose 55 ml @ 110 mls/hr Q24H IVPB 08/02/18 13:00 08/09/18 12:59 08/03/18 14:38 Dextrose 1,000 ml @ 30 mls/hr Q24H IV 08/03/18 13:00 09/02/18 12:59 08/03/18 13:24 Dextrose (Dextrose 50%) 25 ml Q30M PRN IV Hypoglycemia 08/02/18 12:00 08/17/18 11:59 08/02/18 15:34 Dextrose (Dextrose 50%) 50 ml Q30M PRN IV Hypoglycemia 08/02/18 12:00 08/17/18 11:59 08/03/18 11:30 Diphenoxylate HCl/ Atropine (Lomotil) 2.5 mg Q4H PRN ORAL Diarrhea 08/02/18 12:30 08/29/18 12:29 Docusate Sodium (Colace) 100 mg THREE TIMES A DAY ORAL 08/02/18 13:00 08/17/18 08:59 08/03/18 13:24 Epoetin Marcus (Procrit (for ESRD on dialysis)) 9,000 units TUE-TUE-TUE SUBQ 08/02/18 21:00 08/18/18 20:59 08/02/18 21:07 Gabapentin (Neurontin) 100 mg DAILY ORAL 08/02/18 13:00 09/01/18 12:59 08/03/18 09:28 Heparin Sodium (Porcine) (Heparin 5000 units/ml) 5,000 units EVERY 12 HOURS SUBQ 08/02/18 21:00 08/17/18 08:59 08/02/18 21:06 Lorazepam (Ativan 2mg/ml 1ml) 1 mg Q6H PRN IV For Anxiety 08/02/18 20:15 08/09/18 20:14 Pantoprazole (Protonix) 40 mg DAILY IVP 08/03/18 09:00 09/02/18 08:59 08/03/18 09:28 Polyethylene Glycol (Miralax) 17 gm DAILYPRN PRN ORAL Constipation 08/02/18 13:00 08/26/18 12:59 Sennosides (Senokot) 17.2 mg QHS ORAL 08/02/18 21:00 08/17/18 20:59 Vancomycin HCl (Vanco rx to dose) 1 ea DAILY PRN MISC Per rx protocol 08/02/18 09:00 09/01/18 08:59 Vitamin B Complex/ Vit C/Folic Acid (Nephrovite) 1 tab DAILY ORAL 08/02/18 13:00 09/01/18 12:59 08/03/18 09:28 Gustavo Rolon MD Aug 03, 2018 17:01
[2018-08-03] MEDS ORDERED: Heparin Sod 1000 units/ml 10ml IV PRN (18:30)
--- NOTE | 2018-08-03 18:31 | Nephrology Progress Note ---
Assessment/Plan Plan VDRF. B pleural Effusion. 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 On IV Abx per ID. DC on hold HD MWF. Subjective Subjective Intubated, On vent. In ICU. Objective Objective Last 24 Hour Vital Signs Date Time Temp Pulse Resp B/P (MAP) Pulse Ox O2 Delivery O2 Flow Rate FiO2 08/03/18 18:00 75 15 95/52 (66) 100 08/03/18 17:00 68 18 88/55 (66) 100 08/03/18 16:53 71 17 40 08/03/18 16:00 68 08/03/18 16:00 98.6 69 16 93/50 (64) 100 08/03/18 16:00 Mechanical Ventilator Mechanical Ventilator Mechanical Ventilator Mechanical Ventilator 08/03/18 16:00 70 08/03/18 15:00 68 15 97/59 (72) 100 08/03/18 14:57 68 14 40 08/03/18 14:00 69 15 89/61 (70) 100 08/03/18 13:00 69 17 86/56 (66) 100 08/03/18 12:43 71 17 40 08/03/18 12:00 98.3 80 18 108/59 (75) 100 08/03/18 12:00 78 08/03/18 12:00 Mechanical Ventilator Mechanical Ventilator Mechanical Ventilator Mechanical Ventilator 08/03/18 11:00 67 16 94/46 (62) 100 08/03/18 10:55 67 16 40 08/03/18 10:00 68 17 80/54 (63) 100 08/03/18 09:05 68 16 40 08/03/18 09:00 68 17 89/41 (57) 100 08/03/18 08:42 70 08/03/18 08:00 40 08/03/18 08:00 Mechanical Ventilator Mechanical Ventilator Mechanical Ventilator Mechanical Ventilator 08/03/18 08:00 68 08/03/18 08:00 98.7 71 16 83/64 (70) 100 08/03/18 07:15 67 14 40 08/03/18 07:11 67 14 90/70 (77) 100 08/03/18 06:00 69 15 92/53 (66) 100 08/03/18 05:13 68 14 40 08/03/18 05:00 71 14 92/41 (58) 100 08/03/18 04:00 68 08/03/18 04:00 Mechanical Ventilator Mechanical Ventilator Mechanical Ventilator Mechanical Ventilator 08/03/18 04:00 40 08/03/18 04:00 98.7 68 18 95/48 (64) 100 08/03/18 03:17 67 16 40 08/03/18 03:00 66 14 89/68 (75) 100 08/03/18 02:00 67 14 90/58 (69) 100 08/03/18 01:00 67 18 93/60 (71) 100 08/03/18 00:40 70 15 40 08/03/18 00:00 Mechanical Ventilator Mechanical Ventilator Mechanical Ventilator Mechanical Ventilator 08/03/18 00:00 67 08/03/18 00:00 98.4 67 15 93/60 (71) 100 08/03/18 00:00 40 08/02/18 23:15 72 16 40 08/02/18 23:00 65 16 90/43 (59) 100 08/02/18 22:00 65 17 96/47 (63) 100 08/02/18 21:00 65 16 113/75 (88) 100 08/02/18 20:00 40 08/02/18 20:00 98.0 67 20 90/26 (47) 100 08/02/18 20:00 65 08/02/18 20:00 Mechanical Ventilator Mechanical Ventilator Mechanical Ventilator Mechanical Ventilator 08/02/18 19:15 66 15 40 08/02/18 19:00 68 17 102/77 (85) 100 Intake and Output 08/02/18 08/03/18 19:00 07:00 Intake Total 160 ml 480 ml Output Total 1000 ml 0 ml Balance -840 ml 480 ml Intake Oral 0 ml 0 ml IV Total 130 ml 300 ml Other 30 ml 180 ml Output Urine Total 0 ml 0 ml Hemodialysis UF 1000 ml Laboratory Tests 08/03/18 06:05: White Blood Count 6.1, Red Blood Count 2.86L, Hemoglobin 7.8L, Hematocrit 26.0L , Mean Corpuscular Volume 91, Mean Corpuscular Hemoglobin 27.4, Mean Corpuscular Hemoglobin Concent 30.1L, Red Cell Distribution Width 16.6H, Platelet Count 129L, Mean Platelet Volume 9.6, Neutrophils (%) (Auto) , Lymphocytes (%) (Auto) , Monocytes (%) (Auto) , Eosinophils (%) (Auto) , Basophils (%) (Auto) , Differential Total Cells Counted 100, Neutrophils % ( Manual) 69, Lymphocytes % (Manual) 14L, Monocytes % (Manual) 10, Eosinophils % ( Manual) 7H, Basophils % (Manual) 0, Band Neutrophils 0, Platelet Estimate DecreasedL, Platelet Morphology Normal, Hypochromasia 2+, Anisocytosis 1+, Sodium Level 137, Potassium Level 4.4, Chloride Level 103, Carbon Dioxide Level 27, Anion Gap 7, Blood Urea Nitrogen 25H, Creatinine 3.8H, Estimat Glomerular Filtration Rate 14.2, Glucose Level 46L, Calcium Level 8.3L, Phosphorus Level 4.0, Magnesium Level 1.6L, Random Vancomycin Level 18.9 08/03/18 08:30: Arterial Blood pH 7.390, Arterial Blood Partial Pressure CO2 42.3, Arterial Blood Partial Pressure O2 63.3L, Arterial Blood HCO3 25.4, Arterial Blood Oxygen Saturation 91.5L, Arterial Blood Base Excess 0.4, Nicola Test Positive Height (Feet): 5 Height (Inches): 7.00 Weight (Pounds): 224 Objective SBP now 100 Intubated, On vent. Blind CV RR Lungs CTA Abd SNT. BS + E No CCE Alert. Brenda Fuller MD Aug 03, 2018 18:31
--- NOTE | 2018-08-03 18:37 | NUR ---
NURSE NOTES: [facility] hemodialysis called to inform of order placed by Dr. steiner for 08/04/18, placed orders for magnesium sulfate 4 bags, will continue plan of care.
--- NOTE | 2018-08-03 19:52 | NUR ---
HAND-OFF: Report given to CHAPIS Carroll.
--- NOTE | 2018-08-03 19:53 | NUR ---
NURSE NOTES: Endorsement received from CHAPIS Nuñez. Patient opens eyes spontaneously, follows simple commands. With periods of impulsiveness. Orally intubated with ET 7.0 24 lipline. AC 14, Vt 500, PEEP 5, 70%. No shortness of breath. With OGT, placement rechecked per auscultation. Right upper arm graft present, bruit and thrill present. Covered with dressing, dry and intact. With left hand g20, left hand g22 peripheral IV, left hand g22 peripheral IV. Ongoing D10 at 30 ml/hr and Mg So4 1g bag first of 4. With right BKA, stump elevated. Left heel connected to wound vacc, dressing dry and intact. No output in the canister. Wound vac on and working properly. On P200 mattress. Head of bed elevated. Call light within reach.
--- NOTE | 2018-08-03 20:00 | NUR ---
NURSE NOTES: Son at bedside, right wrist restraint removed by the son, left hand mitten still on. Son requested to discontinue the restraint, explained the risk and benefits.
[2018-08-03] MEDS: Sennosides 8.6mg tab ORAL SCH (21:00)
--- NOTE | 2018-08-03 21:00 | NUR ---
NURSE NOTES: Senokot not given as patient had 1 diarrhea in the morning shift as per endorsement.
--- NOTE | 2018-08-03 23:00 | NUR ---
NURSE NOTES: Patient asleep. No signs of pain or discomfort.
[2018-08-04] VITALS (24 sets, daily range): BP systolic 84–112; BP diastolic 40–86
--- NOTE | 2018-08-04 01:00 | NUR ---
NURSE NOTES: No acute distress. No shortness of breath. No output in the wound vacc, on 125mmHg as ordered. Dressing dry and intact.
--- NOTE | 2018-08-04 03:00 | NUR ---
NURSE NOTES: Patient awake. Bed bath, oral care, change of linens done.
--- NOTE | 2018-08-04 05:00 | NUR ---
NURSE NOTES: Patient awake, listening to tv. No signs of pain or discomfort. Wound vacc without any output. Legs kept elevated.
--- NOTE | 2018-08-04 07:00 | NUR ---
HAND-OFF: Report given to CHAPIS Dela Cruz per SBAR.
--- NOTE | 2018-08-04 07:00 | NUR ---
NURSE NOTES: Endorsement received from Ester Mckeon RN. Patient opens eyes spontaneously, follows simple commands. With periods of impulsiveness. Orally intubated with ET 7.0 24 lipline. AC 14, Vt 500, PEEP 5, 70%. No shortness of breath. With OGT, placement rechecked per auscultation. Right upper arm graft present, bruit and thrill present. Covered with dressing, dry and intact. With left hand g20, left hand g22 peripheral IV, left hand g22 peripheral IV. Ongoing D10 at 30 ml/hr. Right BKA, stump elevated. Left heel connected to wound vacume, dressing dry and intact. No output in the canister. Wound vac on and working properly. On P200 mattress. Head of bed elevated. Call light within reach.
--- NOTE | 2018-08-04 07:01 | NUR ---
Received Patient on Vent settings of ACVC RR 14, VT 500, FIO2 70%, PEEP +5. Patient orally intubated with 7.0 ETT at 24cm at the lip secured by anchorfast. Diminished rhonchi are heard bilaterally. SX thin white secretions. Vent plugged into red outlet. Alarms are on and audible. Will continue to monitor throughout the day.
--- NOTE | 2018-08-04 07:40 | Nephrology Progress Note ---
Assessment/Plan Plan VDRF. B pleural Effusion. 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 On IV Abx per ID. HD MWF. Increase UF on HD. Subjective Subjective Intubated, On vent. In ICU. Objective Objective Last 24 Hour Vital Signs Date Time Temp Pulse Resp B/P (MAP) Pulse Ox O2 Delivery O2 Flow Rate FiO2 08/04/18 07:22 64 16 70 08/04/18 07:00 65 18 102/54 (70) 100 08/04/18 06:00 66 18 98/86 (90) 100 08/04/18 05:00 65 18 89/59 (69) 100 08/04/18 04:56 66 17 70 08/04/18 04:00 97.9 65 16 88/55 (66) 100 08/04/18 04:00 66 08/04/18 04:00 Mechanical Ventilator Mechanical Ventilator Mechanical Ventilator Mechanical Ventilator 08/04/18 04:00 70 08/04/18 03:59 64 15 70 08/04/18 03:00 66 16 96/49 (65) 100 08/04/18 02:00 66 16 93/46 (62) 100 08/04/18 01:28 66 17 70 08/04/18 01:00 66 16 100/50 (67) 100 08/04/18 00:00 98.3 66 17 89/76 (80) 100 08/04/18 00:00 70 08/04/18 00:00 66 08/04/18 00:00 Mechanical Ventilator Mechanical Ventilator Mechanical Ventilator Mechanical Ventilator 08/03/18 23:00 66 16 100/53 (69) 100 08/03/18 22:57 72 16 70 08/03/18 22:00 66 15 96/50 (65) 100 08/03/18 21:24 68 15 70 08/03/18 21:00 67 16 82/68 (73) 100 08/03/18 20:00 70 08/03/18 20:00 Mechanical Ventilator Mechanical Ventilator Mechanical Ventilator Mechanical Ventilator 08/03/18 20:00 69 08/03/18 20:00 98.1 70 18 94/59 (71) 100 08/03/18 19:34 68 15 70 08/03/18 19:00 68 17 101/59 (73) 99 08/03/18 18:00 75 15 95/52 (66) 100 08/03/18 17:00 68 18 88/55 (66) 100 08/03/18 16:53 71 17 40 08/03/18 16:00 68 08/03/18 16:00 98.6 69 16 93/50 (64) 100 08/03/18 16:00 Mechanical Ventilator Mechanical Ventilator Mechanical Ventilator Mechanical Ventilator 08/03/18 16:00 70 08/03/18 15:00 68 15 97/59 (72) 100 08/03/18 14:57 68 14 70 08/03/18 14:00 69 15 89/61 (70) 100 08/03/18 13:00 69 17 86/56 (66) 100 08/03/18 12:43 71 17 70 08/03/18 12:00 98.3 80 18 108/59 (75) 100 08/03/18 12:00 78 08/03/18 12:00 Mechanical Ventilator Mechanical Ventilator Mechanical Ventilator Mechanical Ventilator 08/03/18 11:00 67 16 94/46 (62) 100 08/03/18 10:55 67 16 70 08/03/18 10:00 68 17 80/54 (63) 100 08/03/18 09:05 68 16 70 08/03/18 09:00 68 17 89/41 (57) 100 08/03/18 08:42 70 08/03/18 08:00 40 08/03/18 08:00 Mechanical Ventilator Mechanical Ventilator Mechanical Ventilator Mechanical Ventilator 08/03/18 08:00 68 08/03/18 08:00 98.7 71 16 83/64 (70) 100 Intake and Output 08/03/18 08/04/18 19:00 07:00 Intake Total 852 ml 300 ml Output Total 0 ml 0 ml Balance 852 ml 300 ml Intake Oral 120 ml 0 ml Free Water 30 ml IV Total 662 ml 300 ml Other 40 ml Output Urine Total 0 ml 0 ml Laboratory Tests 08/03/18 08:30: Arterial Blood pH 7.390, Arterial Blood Partial Pressure CO2 42.3, Arterial Blood Partial Pressure O2 63.3L, Arterial Blood HCO3 25.4, Arterial Blood Oxygen Saturation 91.5L, Arterial Blood Base Excess 0.4, Nicola Test Positive Height (Feet): 5 Height (Inches): 7.00 Weight (Pounds): 229 Objective SBP now higher up to 120 Intubated, On vent. Blind CV RR Lungs CTA Abd SNT. BS + E No CCE Neuro:Alert, nonfocal. Brenda Fuller MD Aug 04, 2018 07:40
--- NOTE | 2018-08-04 08:00 | NUR ---
NURSE NOTES: Patient repositioned and oral hygiene was provided. Pulses noted, and skin intact at bilateral wrist, Vitals remain stable.
--- NOTE | 2018-08-04 08:30 | NUR ---
NURSE NOTES: FiO2 decreased to 60%
[2018-08-04] MEDS: Nephrovite tab (Rena-Vite) ORAL SCH (08:36)
[2018-08-04] MEDS: Docusate 100mg cap ORAL SCH ×3 (08:36→17:25)
[2018-08-04] MEDS: Pantoprazole Inj IVP SCH (08:36)
[2018-08-04] MEDS: Aspirin Baby 81mg ORAL SCH (08:36)
[2018-08-04] MEDS: Heparin 5000 units/ml inj SUBQ SCH ×2 (08:38→20:35)
--- NOTE | 2018-08-04 09:00 | NUR ---
NURSE NOTES: Glucose noted to be 70, will recheck after HD
--- NOTE | 2018-08-04 09:00 | NUR ---
NURSE NOTES: [facility] dialysis nurse at bedside setting up equipment for patients HD
--- NOTE | 2018-08-04 10:00 | NUR ---
NURSE NOTES: Patient being dialysed at this time, patient remains stable, BP also stable, patient is content and relaxed at this time.
[2018-08-04] MEDS ORDERED: D5NS 1000ml IV ONE (11:00)
[2018-08-04] MEDS ORDERED: NS 275ml ONE (11:00)
[2018-08-04] MEDS ORDERED: Tubing IV Secondary IV ONE (11:00)
--- NOTE | 2018-08-04 11:11 | Infectious Diseases Prog Note ---
"Assessment/Plan Assessment/Plan antibiotics ; vancomycin iv, cefepime A 1. enterococcus | streptococcus UTI 2. pneumonia 3. diabetes mellitus 4. hypertension 5. renal failure on hemodialysis 6. history of left foot osteomyelitis 7. respiratory failure P 1. continue vancomycin iv, cefepime 2. will follow up cultures Subjective ROS Limited/Unobtainable: Yes Allergies: Coded Allergies: BENAZEPRIL (Verified Allergy, Unknown, 06/12/18) CODEINE (Verified Allergy, Unknown, 06/12/18) INSULIN ASPART (Verified Allergy, Unknown, 06/12/18) INSULIN DETEMIR (Verified Allergy, Unknown, 06/12/18) OPIOIDS - MORPHINE ANALOGUES (Verified Allergy, Unknown, 06/12/18) Objective Vital Signs Last 24 Hour Vital Signs Date Time Temp Pulse Resp B/P (MAP) Pulse Ox O2 Delivery O2 Flow Rate FiO2 08/04/18 10:00 65 16 84/43 (57) 100 08/04/18 09:00 64 18 99/53 (68) 100 08/04/18 08:55 64 16 70 08/04/18 08:03 98 18 Mechanical Ventilator 50.0 70 08/04/18 08:00 Mechanical Ventilator Mechanical Ventilator Mechanical Ventilator Mechanical Ventilator 08/04/18 08:00 60 08/04/18 08:00 65 08/04/18 08:00 98.5 67 18 100/63 (75) 100 08/04/18 07:22 64 16 70 08/04/18 07:00 65 18 102/54 (70) 100 08/04/18 06:00 66 18 98/86 (90) 100 08/04/18 05:00 65 18 89/59 (69) 100 08/04/18 04:56 66 17 70 08/04/18 04:00 97.9 65 16 88/55 (66) 100 08/04/18 04:00 66 08/04/18 04:00 Mechanical Ventilator Mechanical Ventilator Mechanical Ventilator Mechanical Ventilator 08/04/18 04:00 70 08/04/18 03:59 64 15 70 08/04/18 03:00 66 16 96/49 (65) 100 08/04/18 02:00 66 16 93/46 (62) 100 08/04/18 01:28 66 17 70 08/04/18 01:00 66 16 100/50 (67) 100 08/04/18 00:00 98.3 66 17 89/76 (80) 100 08/04/18 00:00 70 08/04/18 00:00 66 08/04/18 00:00 Mechanical Ventilator Mechanical Ventilator Mechanical Ventilator Mechanical Ventilator 08/03/18 23:00 66 16 100/53 (69) 100 08/03/18 22:57 72 16 70 08/03/18 22:00 66 15 96/50 (65) 100 08/03/18 21:24 68 15 70 08/03/18 21:00 67 16 82/68 (73) 100 08/03/18 20:00 70 08/03/18 20:00 Mechanical Ventilator Mechanical Ventilator Mechanical Ventilator Mechanical Ventilator 08/03/18 20:00 69 08/03/18 20:00 98.1 70 18 94/59 (71) 100 08/03/18 19:34 68 15 70 08/03/18 19:00 68 17 101/59 (73) 99 08/03/18 18:00 75 15 95/52 (66) 100 08/03/18 17:00 68 18 88/55 (66) 100 08/03/18 16:53 71 17 40 08/03/18 16:00 68 08/03/18 16:00 98.6 69 16 93/50 (64) 100 08/03/18 16:00 Mechanical Ventilator Mechanical Ventilator Mechanical Ventilator Mechanical Ventilator 08/03/18 16:00 70 08/03/18 15:00 68 15 97/59 (72) 100 08/03/18 14:57 68 14 70 08/03/18 14:00 69 15 89/61 (70) 100 08/03/18 13:00 69 17 86/56 (66) 100 08/03/18 12:43 71 17 70 08/03/18 12:00 98.3 80 18 108/59 (75) 100 08/03/18 12:00 78 08/03/18 12:00 Mechanical Ventilator Mechanical Ventilator Mechanical Ventilator Mechanical Ventilator Height (Feet): 5 Height (Inches): 7.00 Weight (Pounds): 229 HEENT: other - intubated Respiratory/Chest: lungs clear Cardiovascular: normal rate, regular rhythm, no gallop/murmur Abdomen: soft, non tender Extremities: no edema, other - right stump clean, left foot VAC Microbiology Date/Time Source Procedure Growth Status 08/03/18 12:00 Sputum Gram Stain Pending Resulted 08/03/18 12:00 Sputum Sputum Culture - Preliminary Resulted 08/02/18 02:30 Stool Clostridium difficile Toxin Assay - Final Complete Laboratory Tests Test 08/04/18 09:45 Arterial Blood pH 7.418 (7.350-7.450) Arterial Blood Partial Pressure CO2 41.2 mmHg (35.0-45.0) Arterial Blood Partial Pressure O2 241.5 mmHg (75.0-100.0) H Arterial Blood HCO3 26.0 mmol/L (22.0-26.0) Arterial Blood Oxygen Saturation 99.3 % (95-100) Arterial Blood Base Excess 1.4 (-2-2) Nicola Test Positive Current Medications Medications (Trade) Dose Ordered Sig/Andre Route PRN Reason Start Time Stop Time Status Last Admin Dose Admin Acetaminophen (Tylenol) 650 mg Q6H PRN ORAL Mild Pain/Temp > 100.5 08/02/18 11:45 08/16/18 23:44 Aspirin (ASA) 81 mg DAILY ORAL 08/02/18 12:30 09/01/18 12:29 08/04/18 08:36 Cefepime HCl 0.5 gm/Dextrose 55 ml @ 110 mls/hr Q24H IVPB 08/02/18 13:00 08/09/18 12:59 08/03/18 14:38 Dextrose 1,000 ml @ 30 mls/hr Q24H IV 08/03/18 13:00 09/02/18 12:59 08/03/18 13:24 Dextrose (Dextrose 50%) 25 ml Q30M PRN IV Hypoglycemia 08/02/18 12:00 08/17/18 11:59 08/02/18 15:34 Dextrose (Dextrose 50%) 50 ml Q30M PRN IV Hypoglycemia 08/02/18 12:00 08/17/18 11:59 08/03/18 11:30 Diphenoxylate HCl/ Atropine (Lomotil) 2.5 mg Q4H PRN ORAL Diarrhea 08/02/18 12:30 08/29/18 12:29 Docusate Sodium (Colace) 100 mg THREE TIMES A DAY ORAL 08/02/18 13:00 08/17/18 08:59 08/04/18 08:36 Epoetin Marcus (Procrit (for ESRD on dialysis)) 10,000 units MON-WED-FRI SUBQ 08/04/18 21:00 08/18/18 20:59 Heparin Sodium (Porcine) (Heparin 5000 units/ml) 5,000 units EVERY 12 HOURS SUBQ 08/02/18 21:00 08/17/18 08:59 08/04/18 08:38 Heparin Sodium (Porcine) (Heparin Sod 1000 units/ml 10ml) 2,000 unit ONCE PRN IV FOR HD USE ONLY 08/03/18 18:30 08/04/18 23:59 Lorazepam (Ativan 2mg/ml 1ml) 1 mg Q6H PRN IV For Anxiety 08/02/18 20:15 08/09/18 20:14 Pantoprazole (Protonix) 40 mg DAILY IVP 08/03/18 09:00 09/02/18 08:59 08/04/18 08:36 Polyethylene Glycol (Miralax) 17 gm DAILYPRN PRN ORAL Constipation 08/02/18 13:00 08/26/18 12:59 Sennosides (Senokot) 17.2 mg QHS ORAL 08/02/18 21:00 08/17/18 20:59 Sodium Chloride 1,000 ml @ 500 mls/hr Q2H PRN IVLG sbp<90 during hd 08/03/18 18:40 08/04/18 23:59 Vancomycin HCl (Vanco rx to dose) 1 ea DAILY PRN MISC Per rx protocol 08/02/18 09:00 09/01/18 08:59 Vitamin B Complex/ Vit C/Folic Acid (Nephrovite) 1 tab DAILY ORAL 08/02/18 13:00 09/01/18 12:59 08/04/18 08:36 Naya Cain MD Aug 04, 2018 11:11"
--- NOTE | 2018-08-04 12:30 | NUR ---
NURSE NOTES: Patient is finished HD, 2500ml was removed. Patients Vitals remains stable, no acute distress at this time, will continue to monitor patients progress.
[2018-08-04] MEDS: Cefepime HCl 0.5 GM in D5W 55 ML IVPB SCH (13:00)
[2018-08-04] MEDS: Dextrose 10% 1,000 ML IV SCH (14:00)
--- NOTE | 2018-08-04 14:00 | NUR ---
NURSE NOTES: Patient repositioned, abx given, patient remains stable, BP 112/64, SpO2 100%. Suctioned oral cavity.
--- NOTE | 2018-08-04 14:40 | Pulmonolgy Critical Care Note ---
Critical Care - Asmt/Plan Assessment/Plan: Pulmonary CCM Progress Note Assessment/Plan Assessment/Plan IMPRESSION: 1. Acute on chronic respiratory failure. 2. Acute hypercapnia. 3. Hypoxemia. 4. Bilateral pleural effusions. 5. Fluid overload. 6. End-stage renal disease. 7. Severe protein-calorie malnutrition. 8. Anemia. 9. Thrombocytopenia. 10. Mild coagulopathy. PLAN likely needs trach with poor baseline likely has obesity hypoventilation would recommend to proceed and place in subacute monitor acid base sedation will follow up nutrition keep negative medications/laboratory data/nursing notes/ICU care reviewed in detail note reviewed and edited care discussed with RN and RT ICU time spent 40 minutes Subjective ROS Limited/Unobtainable: Yes Allergies: Coded Allergies: BENAZEPRIL (Verified Allergy, Unknown, 06/12/18) CODEINE (Verified Allergy, Unknown, 06/12/18) INSULIN ASPART (Verified Allergy, Unknown, 06/12/18) INSULIN DETEMIR (Verified Allergy, Unknown, 06/12/18) OPIOIDS - MORPHINE ANALOGUES (Verified Allergy, Unknown, 06/12/18) Subjective care noted and reviewed on the vent ICU care reviewed Objective Vital Signs Noted Objective GENERAL: A well-developed female,on the vent; sedated HEENT: Negative. NECK: Supple. no JVD LUNGS: With reduced breath sounds bilaterally. minimal rhonchi CARDIAC: S1 and S2. Slightly distant systolic murmur noted. No rubs or gallops. ABDOMEN: Soft, nontender. Mild subcutaneous edema. EXTREMITIES: No edema. Prior amputations noted. NEUROLOGIC: Grossly nonfocal. reviewed and edited Microbiology Date/Time Source Procedure Growth Status 08/02/18 02:30 Stool Clostridium difficile Toxin Assay - Final Complete Laboratory Tests 08/03/18 06:05: White Blood Count 6.1, Red Blood Count 2.86L, Hemoglobin 7.8L, Hematocrit 26.0L , Mean Corpuscular Volume 91, Mean Corpuscular Hemoglobin 27.4, Mean Corpuscular Hemoglobin Concent 30.1L, Red Cell Distribution Width 16.6H, Platelet Count 129L, Mean Platelet Volume 9.6, Neutrophils (%) (Auto) , Lymphocytes (%) (Auto) , Monocytes (%) (Auto) , Eosinophils (%) (Auto) , Basophils (%) (Auto) , Differential Total Cells Counted 100, Neutrophils % ( Manual) 69, Lymphocytes % (Manual) 14L, Monocytes % (Manual) 10, Eosinophils % ( Manual) 7H, Basophils % (Manual) 0, Band Neutrophils 0, Platelet Estimate DecreasedL, Platelet Morphology Normal, Hypochromasia 2+, Anisocytosis 1+, Sodium Level 137, Potassium Level 4.4, Chloride Level 103, Carbon Dioxide Level 27, Anion Gap 7, Blood Urea Nitrogen 25H, Creatinine 3.8H, Estimat Glomerular Filtration Rate 14.2, Glucose Level 46L, Calcium Level 8.3L, Phosphorus Level 4.0, Magnesium Level 1.6L, Random Vancomycin Level 18.9 08/03/18 08:30: Arterial Blood pH 7.390, Arterial Blood Partial Pressure CO2 42.3, Arterial Blood Partial Pressure O2 63.3L, Arterial Blood HCO3 25.4, Arterial Blood Oxygen Saturation 91.5L, Arterial Blood Base Excess 0.4, Nicola Test Positive Current Medications Medications (Trade) Dose Ordered Sig/Andre Route PRN Reason Start Time Stop Time Status Last Admin Dose Admin Acetaminophen (Tylenol) 650 mg Q6H PRN ORAL Mild Pain/Temp > 100.5 08/02/18 11:45 08/16/18 23:44 Aspirin (ASA) 81 mg DAILY ORAL 08/02/18 12:30 09/01/18 12:29 08/03/18 09:28 Cefepime HCl 0.5 gm/Dextrose 55 ml @ 110 mls/hr Q24H IVPB 08/02/18 13:00 08/09/18 12:59 08/03/18 14:38 Dextrose 1,000 ml @ 30 mls/hr Q24H IV 08/03/18 13:00 09/02/18 12:59 08/03/18 13:24 Dextrose (Dextrose 50%) 25 ml Q30M PRN IV Hypoglycemia 08/02/18 12:00 08/17/18 11:59 08/02/18 15:34 Dextrose (Dextrose 50%) 50 ml Q30M PRN IV Hypoglycemia 08/02/18 12:00 08/17/18 11:59 08/03/18 11:30 Diphenoxylate HCl/ Atropine (Lomotil) 2.5 mg Q4H PRN ORAL Diarrhea 08/02/18 12:30 08/29/18 12:29 Docusate Sodium (Colace) 100 mg THREE TIMES A DAY ORAL 08/02/18 13:00 08/17/18 08:59 08/03/18 13:24 Epoetin Marcus (Procrit (for ESRD on dialysis)) 9,000 units TUE-TUE-TUE SUBQ 08/02/18 21:00 08/18/18 20:59 08/02/18 21:07 Gabapentin (Neurontin) 100 mg DAILY ORAL 08/02/18 13:00 09/01/18 12:59 08/03/18 09:28 Heparin Sodium (Porcine) (Heparin 5000 units/ml) 5,000 units EVERY 12 HOURS SUBQ 08/02/18 21:00 08/17/18 08:59 08/02/18 21:06 Lorazepam (Ativan 2mg/ml 1ml) 1 mg Q6H PRN IV For Anxiety 08/02/18 20:15 08/09/18 20:14 Pantoprazole (Protonix) 40 mg DAILY IVP 08/03/18 09:00 09/02/18 08:59 08/03/18 09:28 Polyethylene Glycol (Miralax) 17 gm DAILYPRN PRN ORAL Constipation 08/02/18 13:00 08/26/18 12:59 Sennosides (Senokot) 17.2 mg QHS ORAL 08/02/18 21:00 08/17/18 20:59 Vancomycin HCl (Vanco rx to dose) 1 ea DAILY PRN MISC Per rx protocol 08/02/18 09:00 09/01/18 08:59 Vitamin B Complex/ Vit C/Folic Acid (Nephrovite) 1 tab DAILY ORAL 08/02/18 13:00 09/01/18 12:59 08/03/18 09:28 Critical Care - Objective Last 24 Hour Vital Signs Date Time Temp Pulse Resp B/P (MAP) Pulse Ox O2 Delivery O2 Flow Rate FiO2 08/04/18 14:00 70 16 112/64 (80) 100 08/04/18 13:24 74 20 60 08/04/18 13:00 70 16 108/55 (72) 100 08/04/18 12:00 97.9 66 16 101/40 (60) 100 08/04/18 12:00 67 08/04/18 12:00 60 08/04/18 12:00 Mechanical Ventilator Mechanical Ventilator Mechanical Ventilator Mechanical Ventilator 08/04/18 11:12 77 17 60 08/04/18 11:00 66 16 94/48 (63) 100 08/04/18 10:00 65 16 84/43 (57) 100 08/04/18 09:00 64 18 99/53 (68) 100 08/04/18 08:55 64 16 70 08/04/18 08:03 98 18 Mechanical Ventilator 50.0 70 08/04/18 08:00 Mechanical Ventilator Mechanical Ventilator Mechanical Ventilator Mechanical Ventilator 08/04/18 08:00 60 08/04/18 08:00 65 08/04/18 08:00 98.5 67 18 100/63 (75) 100 08/04/18 07:22 64 16 70 08/04/18 07:00 65 18 102/54 (70) 100 08/04/18 06:00 66 18 98/86 (90) 100 08/04/18 05:00 65 18 89/59 (69) 100 08/04/18 04:56 66 17 70 08/04/18 04:00 97.9 65 16 88/55 (66) 100 08/04/18 04:00 66 08/04/18 04:00 Mechanical Ventilator Mechanical Ventilator Mechanical Ventilator Mechanical Ventilator 08/04/18 04:00 70 08/04/18 03:59 64 15 70 08/04/18 03:00 66 16 96/49 (65) 100 08/04/18 02:00 66 16 93/46 (62) 100 08/04/18 01:28 66 17 70 08/04/18 01:00 66 16 100/50 (67) 100 08/04/18 00:00 98.3 66 17 89/76 (80) 100 08/04/18 00:00 70 08/04/18 00:00 66 08/04/18 00:00 Mechanical Ventilator Mechanical Ventilator Mechanical Ventilator Mechanical Ventilator 08/03/18 23:00 66 16 100/53 (69) 100 08/03/18 22:57 72 16 70 08/03/18 22:00 66 15 96/50 (65) 100 08/03/18 21:24 68 15 70 08/03/18 21:00 67 16 82/68 (73) 100 08/03/18 20:00 70 08/03/18 20:00 Mechanical Ventilator Mechanical Ventilator Mechanical Ventilator Mechanical Ventilator 08/03/18 20:00 69 08/03/18 20:00 98.1 70 18 94/59 (71) 100 08/03/18 19:34 68 15 70 08/03/18 19:00 68 17 101/59 (73) 99 08/03/18 18:00 75 15 95/52 (66) 100 08/03/18 17:00 68 18 88/55 (66) 100 08/03/18 16:53 71 17 40 08/03/18 16:00 68 08/03/18 16:00 98.6 69 16 93/50 (64) 100 08/03/18 16:00 Mechanical Ventilator Mechanical Ventilator Mechanical Ventilator Mechanical Ventilator 08/03/18 16:00 70 08/03/18 15:00 68 15 97/59 (72) 100 08/03/18 14:57 68 14 70 Micro: Microbiology Date/Time Source Procedure Growth Status 08/03/18 12:00 Sputum Gram Stain Pending Resulted 08/03/18 12:00 Sputum Sputum Culture - Preliminary Resulted 08/02/18 02:30 Stool Clostridium difficile Toxin Assay - Final Complete Accucheck: 77 Critical Care - Subjective ROS Limited/Unobtainable: Yes FI02: 60 Vent Support Breath Rate: 14 Vent Support Mode: AC Vent Tidal Volume: 500 Sputum Amount: Scant PEEP: 5.0 PIP: 39 I&O: Intake and Output 08/03/18 08/04/18 18:59 06:59 Intake Total 847 ml 330 ml Output Total 0 ml 0 ml Balance 847 ml 330 ml Intake Oral 120 ml 0 ml Free Water 30 ml IV Total 657 ml 330 ml Other 40 ml Output Urine Total 0 ml 0 ml ET-Tube: 7.0 ET Position: 24 Joaquin Mackenzie MD Aug 04, 2018 14:40
--- NOTE | 2018-08-04 16:00 | NUR ---
NURSE NOTES: Patient repositioned and suctioned, patient cleaned. No acute distress.
--- NOTE | 2018-08-04 18:00 | NUR ---
NURSE NOTES: Patient has remained stable, throughout shift, patient dialyses earlier today with 2500ml removed. Patient remains alert and oriented X 3, and also remains on bilateral soft wrist restraints. No acute distress at this time, hemodynamically stable, no urine output.
--- NOTE | 2018-08-04 19:00 | NUR ---
HAND-OFF: Report given to Mrs. Marty NATION.
--- NOTE | 2018-08-04 19:27 | NUR ---
RESPIRATORY NOTE: Received pt on AC 14, 500VT, 60%, PEEP +5. Pt intubted w/ ETT 7.0 @ 24cm lipline, secured by anchorfast. Pt alert/awake, follows commands. Both hands on soft restraints to prevent pt from self-extubation. B/S marta. diminished, sxn minimal amounts of thin, clear/white secretions. Family currently at bedside. Vent plugged into red outlet, ambubag at bedside. Pt denies SOB/distress at this time. Will continue to monitor pt.
--- NOTE | 2018-08-04 19:45 | NUR ---
NURSE NOTES: PATIENT OPEN EYES, RIGHT EYE OPACITY, BOTH LEGALLY BLIND STATUS, IMPULSIVE, RESISTANCE TO CARE, ON ETT TO VENT AC 14/TV500/FIO2 50%/PEEP5, O2 SATURATION 100%, OGT INTACT AND PATENT, NPO STATUS, ABDOMEN SOFT, ROUND, NON TENDER STATUS, HYPOACTIVE BOWEL SOUND TO 4 QUADRANTS, NO BOWEL MOVEMENT AND ANURIC STATUS, RIGHT BKA, A-V SHUNT TO RIGHT UPPER ARM, PALPABLE THRILL, BRUIT, KEPT RIGHT ARM PRECAUTION, LEFT HEEL WOUND VAC STATUS, NO OUTPUT STATUS, ELEVATED HEEL, PERIPHERAL LINE TO RIGHT HAND, INTACT AND PATENT, ONGOING D10%W AT 30ML/HR VIA PERIPHERAL LINE, 2 POINT SOFT RESTRAINTS FOR SAFETY, ON P200 BED, MADE LOWER BED POSITION, PROVIDED CALL LIGHT WITHIN REACH, WILL CONTINUE TO MONITOR.
[2018-08-04] MEDS: Epogen (for ESRD on dialysis) SUBQ SCH (20:34)
[2018-08-04] MEDS: Sennosides 8.6mg tab ORAL SCH (20:34)
--- NOTE | 2018-08-04 22:00 | NUR ---
NURSE NOTES: REPOSITIONED, RELEASED RESTRAINTS AND REAPPLIED BECAUSE PATIENT TRIED TO TOUCH ENDO TUBE WHEN RELEASED, WILL CONTINUE TO MONITOR.
[2018-08-05] VITALS (24 sets, daily range): BP systolic 92–119; BP diastolic 45–72
--- NOTE | 2018-08-05 02:00 | NUR ---
NURSE NOTES: PATIENT SLEEPING ON AND OFF, ORAL CARE WAS DONE, WILL CONTINUE TO MONITOR.
--- NOTE | 2018-08-05 03:50 | NUR ---
NURSE NOTES: MORNING CARE WAS DONE, NO BOWEL MOVEMENT STATUS.
--- NOTE | 2018-08-05 05:36 | NUR ---
NURSE NOTES: BS 68MG/DL AT 0529AM, 66MG/DL AT 0530AM THAT GIVEN D50%W 25ML IVP PROTOCOLS, WILL CONTINUE TO MONITOR.
--- NOTE | 2018-08-05 05:49 | NUR ---
NURSE NOTES: BS 149MG/DL NOTED, NO ACUTE DISTRESS NOTED AT THIS TIME.
--- NOTE | 2018-08-05 07:03 | NUR ---
Received Patient on Vent settings of ACVC RR 14, VT 500, FIO2 60%, PEEP +5. Patient orally intubated with 7.0 ETT at 24cm at the lip secured by anchorfast. Diminished rhonchi are heard bilaterally. SX thin white secretions. Vent plugged into red outlet. Alarms are on and audible. Will continue to monitor throughout the day.
--- NOTE | 2018-08-05 07:20 | NUR ---
HAND-OFF: Report given to Charge nurse.
--- NOTE | 2018-08-05 07:36 | NUR ---
NURSE NOTES: Received patient from CHAPIS Grider. Patient VS stable this morning with no sign of acute distress. Patient sleeping at this time. Patient legally blind. Patient reported to be alert and oriented times 2-3 when awake. Patient on ETT tube to vent with setting of AC 14, TV 500, FiO2 50%, and PEEP 5. Patient tolerating setting with saturation of 98% and stable ABG results. Patient is anuric at this time. Patient receives hemodialysis mon, wed, fri. Patient had dialysis yesterday with 2500mL out. Patient on a P200 mattress for skin protection. Patient has an OGT in place at this time but patient remains NPO at this time. Patient has a right leg BKA. Patient has a left heal wound with wound vac in place and setting of 125mmHG at this time. Dressing dry and intact at this time. Patient has a right upper arm AV shunt. Patient has a left hand 20G, 22G, and 22G PIVs that are patent and asymptomatic at this time. Bed in low position with bed alarm on and call light in reach at this time.
--- NOTE | 2018-08-05 07:36 | NUR ---
HAND-OFF: Report given to Ita Alfaro/CHAPIS.
--- NOTE | 2018-08-05 09:00 | NUR ---
NURSE NOTES: Patient VS stable at this time. Patient given oral care at this time. Patient given medications at this time. Patient denies pain or discomfort at this time. Patient bed in low position with bed alarm on and call light in reach at this time.
[2018-08-05] MEDS: Nephrovite tab (Rena-Vite) ORAL SCH (09:17)
[2018-08-05] MEDS: Aspirin Baby 81mg ORAL SCH (09:17)
[2018-08-05] MEDS: Docusate 100mg cap ORAL SCH ×4 (09:17→17:54)
[2018-08-05] MEDS: Pantoprazole Inj IVP SCH (09:17)
[2018-08-05] MEDS: Heparin 5000 units/ml inj SUBQ SCH ×2 (09:18→20:42)
--- NOTE | 2018-08-05 10:48 | NUR ---
NURSE NOTES: Spoke with Dr Fuller regarding no tube feeding at this time. Dr Fuller is concerned that the patient may aspirate with OGT feeding and wants to see if the patient can be weened off the ventilator instead.
--- NOTE | 2018-08-05 10:53 | Nephrology Progress Note ---
Assessment/Plan Plan VDRF. B pleural Effusion. 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 On IV Abx per ID. HD MWF. Increase UF on HD. Try to wean off vent. Maintain euglycemia with IV D5 0.45 NS. Subjective Subjective Intubated, On vent. In ICU. Objective Objective Last 24 Hour Vital Signs Date Time Temp Pulse Resp B/P (MAP) Pulse Ox O2 Delivery O2 Flow Rate FiO2 08/05/18 09:22 71 14 60 08/05/18 08:00 98.3 67 15 102/55 (71) 100 08/05/18 08:00 Mechanical Ventilator Mechanical Ventilator Mechanical Ventilator Mechanical Ventilator 08/05/18 08:00 50 08/05/18 07:22 66 15 60 08/05/18 07:00 68 15 106/60 (75) 100 08/05/18 06:00 68 14 117/60 (79) 100 08/05/18 05:00 68 16 92/72 (79) 100 08/05/18 04:55 70 15 60 08/05/18 04:00 50 08/05/18 04:00 Mechanical Ventilator Mechanical Ventilator Mechanical Ventilator Mechanical Ventilator 08/05/18 04:00 98.0 78 19 117/57 (77) 100 08/05/18 03:53 68 08/05/18 03:10 69 14 60 08/05/18 03:00 68 15 101/49 (66) 100 08/05/18 02:00 69 17 119/53 (75) 100 08/05/18 01:03 67 14 60 08/05/18 01:00 67 14 98/47 (64) 100 08/05/18 00:00 Mechanical Ventilator Mechanical Ventilator Mechanical Ventilator Mechanical Ventilator 08/05/18 00:00 97.8 71 17 111/52 (71) 100 08/05/18 00:00 50 08/04/18 23:38 70 08/04/18 23:08 69 16 60 08/04/18 23:00 68 15 109/48 (68) 100 08/04/18 22:00 70 15 101/51 (68) 100 08/04/18 21:28 74 15 60 08/04/18 21:00 67 15 100/47 (64) 100 08/04/18 20:02 69 08/04/18 20:00 97.8 69 15 94/48 (63) 100 1/11/19 20:00 50 08/04/18 20:00 Mechanical Ventilator Mechanical Ventilator Mechanical Ventilator Mechanical Ventilator 08/04/18 19:25 75 18 60 08/04/18 19:00 65 14 109/59 (76) 100 08/04/18 18:00 68 14 100/58 (72) 100 08/04/18 17:16 67 15 60 08/04/18 17:00 66 14 101/55 (70) 100 08/04/18 16:00 50 08/04/18 16:00 65 08/04/18 16:00 Mechanical Ventilator Mechanical Ventilator Mechanical Ventilator Mechanical Ventilator 08/04/18 16:00 98.7 75 17 98/51 (67) 100 08/04/18 15:25 72 15 60 08/04/18 15:00 71 16 108/50 (69) 100 08/04/18 14:00 70 16 112/64 (80) 100 08/04/18 13:24 74 20 60 08/04/18 13:00 70 16 108/55 (72) 100 08/04/18 12:00 97.9 66 16 101/40 (60) 100 08/04/18 12:00 67 08/04/18 12:00 60 08/04/18 12:00 Mechanical Ventilator Mechanical Ventilator Mechanical Ventilator Mechanical Ventilator 08/04/18 11:12 77 17 60 08/04/18 11:00 66 16 94/48 (63) 100 Intake and Output 08/04/18 08/05/18 19:00 07:00 Intake Total 385 ml 410 ml Output Total 7500 ml 0 ml Balance -7115 ml 410 ml Intake Oral 0 ml 0 ml IV Total 385 ml 360 ml Other 50 ml Output Urine Total 0 ml 0 ml Drainage Total 0 ml Hemodialysis UF 7500 ml Laboratory Tests 08/05/18 05:20: Random Vancomycin Level 23.9 Height (Feet): 5 Height (Inches): 7.00 Weight (Pounds): 223 Objective Intubated, On vent. Blind CV RR Lungs CTA Abd SNT. BS + E No CCE Neuro:Alert, nonfocal. Brenda Fuller MD Aug 05, 2018 10:53
--- NOTE | 2018-08-05 12:00 | NUR ---
NURSE NOTES: Patient VS stable at this time. Patient showing no signs of acute distress. Patient's eyes are closed with the television on per patient request. Patient bed in low position with bed alarm on and call light in reach at this time.
--- NOTE | 2018-08-05 12:30 | NUR ---
NURSE NOTES: OG tube has come out at this time. The tube was in the proper place when placement was checked with med administration this morning. Patient was to be given another medication at 1230 and the G tube was found with the end of it sticking out of the patient's mouth. It is unclear how the patient pulled it out as she was on restraints. The OGT had been clamped at the time it was removed. Addendum: 08/05/18 at 1815 by Ita Alfaro RN MD will be made aware.
[2018-08-05] MEDS: Cefepime HCl 0.5 GM in D5W 55 ML IVPB SCH (12:41)
[2018-08-05] MEDS: Dextrose 10% 1,000 ML IV SCH (13:40)
--- NOTE | 2018-08-05 14:00 | NUR ---
NURSE NOTES: Patient VS stable at this time with no sign of acute distress. Patient denies pain or discomfort. Patient to be weened off of vent at this time. Patient bed in low position with bed alarm on and call light in reach at this time.
--- NOTE | 2018-08-05 15:23 | Infectious Diseases Prog Note ---
"Assessment/Plan Assessment/Plan antibiotics ; vancomycin iv, cefepime A 1. enterococcus | streptococcus UTI 2. gram negative pneumonia 3. diabetes mellitus 4. hypertension 5. renal failure on hemodialysis 6. history of left foot osteomyelitis 7. respiratory failure P 1. continue vancomycin iv, cefepime 2. will follow up cultures Subjective ROS Limited/Unobtainable: Yes Allergies: Coded Allergies: BENAZEPRIL (Verified Allergy, Unknown, 06/12/18) CODEINE (Verified Allergy, Unknown, 06/12/18) INSULIN ASPART (Verified Allergy, Unknown, 06/12/18) INSULIN DETEMIR (Verified Allergy, Unknown, 06/12/18) OPIOIDS - MORPHINE ANALOGUES (Verified Allergy, Unknown, 06/12/18) Objective Vital Signs Last 24 Hour Vital Signs Date Time Temp Pulse Resp B/P (MAP) Pulse Ox O2 Delivery O2 Flow Rate FiO2 08/05/18 14:00 66 16 112/59 (76) 100 08/05/18 13:00 66 14 60 08/05/18 13:00 65 14 110/58 (75) 100 08/05/18 12:00 Mechanical Ventilator Mechanical Ventilator Mechanical Ventilator Mechanical Ventilator 08/05/18 12:00 50 08/05/18 12:00 98.6 67 15 112/62 (79) 100 08/05/18 12:00 67 08/05/18 11:00 67 15 97/59 (72) 100 08/05/18 10:00 67 15 100/52 (68) 100 08/05/18 09:22 71 14 60 08/05/18 09:00 67 16 100/53 (69) 100 08/05/18 08:00 98.3 67 15 102/55 (71) 100 08/05/18 08:00 Mechanical Ventilator Mechanical Ventilator Mechanical Ventilator Mechanical Ventilator 08/05/18 08:00 66 08/05/18 08:00 50 08/05/18 07:22 66 15 60 08/05/18 07:00 68 15 106/60 (75) 100 08/05/18 06:00 68 14 117/60 (79) 100 08/05/18 05:00 68 16 92/72 (79) 100 08/05/18 04:55 70 15 60 08/05/18 04:00 50 08/05/18 04:00 Mechanical Ventilator Mechanical Ventilator Mechanical Ventilator Mechanical Ventilator 08/05/18 04:00 98.0 78 19 117/57 (77) 100 08/05/18 03:53 68 08/05/18 03:10 69 14 60 08/05/18 03:00 68 15 101/49 (66) 100 08/05/18 02:00 69 17 119/53 (75) 100 08/05/18 01:03 67 14 60 08/05/18 01:00 67 14 98/47 (64) 100 08/05/18 00:00 Mechanical Ventilator Mechanical Ventilator Mechanical Ventilator Mechanical Ventilator 08/05/18 00:00 97.8 71 17 111/52 (71) 100 08/05/18 00:00 50 08/04/18 23:38 70 08/04/18 23:08 69 16 60 08/04/18 23:00 68 15 109/48 (68) 100 08/04/18 22:00 70 15 101/51 (68) 100 08/04/18 21:28 74 15 60 08/04/18 21:00 67 15 100/47 (64) 100 08/04/18 20:02 69 08/04/18 20:00 97.8 69 15 94/48 (63) 100 08/04/18 20:00 50 08/04/18 20:00 Mechanical Ventilator Mechanical Ventilator Mechanical Ventilator Mechanical Ventilator 08/04/18 19:25 75 18 60 08/04/18 19:00 65 14 109/59 (76) 100 08/04/18 18:00 68 14 100/58 (72) 100 08/04/18 17:16 67 15 60 08/04/18 17:00 66 14 101/55 (70) 100 08/04/18 16:00 50 08/04/18 16:00 65 08/04/18 16:00 Mechanical Ventilator Mechanical Ventilator Mechanical Ventilator Mechanical Ventilator 08/04/18 16:00 98.7 75 17 98/51 (67) 100 08/04/18 15:25 72 15 60 Height (Feet): 5 Height (Inches): 7.00 Weight (Pounds): 223 HEENT: other - intubated Respiratory/Chest: lungs clear Cardiovascular: normal rate, regular rhythm, no gallop/murmur Abdomen: soft, non tender Extremities: no edema, other - right stump clean, left foot VAC Microbiology Date/Time Source Procedure Growth Status 08/03/18 12:00 Sputum Gram Stain - Final Resulted 08/03/18 12:00 Sputum Culture - Preliminary Gram Negative Bacillus 1 Resulted Laboratory Tests Test 08/05/18 05:20 Random Vancomycin Level 23.9 ug/mL Current Medications Medications (Trade) Dose Ordered Sig/Andre Route PRN Reason Start Time Stop Time Status Last Admin Dose Admin Acetaminophen (Tylenol) 650 mg Q6H PRN ORAL Mild Pain/Temp > 100.5 08/02/18 11:45 08/16/18 23:44 Aspirin (ASA) 81 mg DAILY ORAL 08/02/18 12:30 09/01/18 12:29 08/05/18 09:17 Cefepime HCl 0.5 gm/Dextrose 55 ml @ 110 mls/hr Q24H IVPB 08/02/18 13:00 08/09/18 12:59 08/05/18 12:41 Dextrose 1,000 ml @ 30 mls/hr Q24H IV 08/03/18 13:00 09/02/18 12:59 08/05/18 13:40 Dextrose (Dextrose 50%) 25 ml Q30M PRN IV Hypoglycemia 08/02/18 12:00 08/17/18 11:59 08/05/18 05:36 Dextrose (Dextrose 50%) 50 ml Q30M PRN IV Hypoglycemia 08/02/18 12:00 08/17/18 11:59 08/03/18 11:30 Diphenoxylate HCl/ Atropine (Lomotil) 2.5 mg Q4H PRN ORAL Diarrhea 08/02/18 12:30 08/29/18 12:29 Docusate Sodium (Colace) 100 mg THREE TIMES A DAY ORAL 08/02/18 13:00 08/17/18 08:59 08/05/18 09:17 Epoetin Marcus (Procrit (for ESRD on dialysis)) 10,000 units MON-WED-FRI SUBQ 08/04/18 21:00 08/18/18 20:59 08/04/18 20:34 Heparin Sodium (Porcine) (Heparin 5000 units/ml) 5,000 units EVERY 12 HOURS SUBQ 08/02/18 21:00 08/17/18 08:59 08/05/18 09:18 Lorazepam (Ativan 2mg/ml 1ml) 1 mg Q6H PRN IV For Anxiety 08/02/18 20:15 08/09/18 20:14 Pantoprazole (Protonix) 40 mg DAILY IVP 08/03/18 09:00 09/02/18 08:59 08/05/18 09:17 Polyethylene Glycol (Miralax) 17 gm DAILYPRN PRN ORAL Constipation 08/02/18 13:00 08/26/18 12:59 Sennosides (Senokot) 17.2 mg QHS ORAL 08/02/18 21:00 08/17/18 20:59 08/04/18 20:34 Vancomycin HCl (Vanco rx to dose) 1 ea DAILY PRN MISC Per rx protocol 08/02/18 09:00 09/01/18 08:59 Vitamin B Complex/ Vit C/Folic Acid (Nephrovite) 1 tab DAILY ORAL 08/02/18 13:00 09/01/18 12:59 08/05/18 09:17 Naya Cain MD Aug 05, 2018 15:23"
--- NOTE | 2018-08-05 15:46 | Pulmonolgy Critical Care Note ---
Critical Care - Asmt/Plan Assessment/Plan: Pulmonary CCM Progress Note Assessment/Plan IMPRESSION: 1. Acute on chronic respiratory failure. 2. Acute hypercapnia. 3. Hypoxemia. 4. Bilateral pleural effusions. 5. Fluid overload. 6. End-stage renal disease. 7. Severe protein-calorie malnutrition. 8. Anemia. 9. Thrombocytopenia. 10. Mild coagulopathy. PLAN likely needs trach with poor baseline likely has obesity hypoventilation would recommend to proceed and place in subacute monitor acid base sedation will follow up nutrition keep negative medications/laboratory data/nursing notes/ICU care reviewed in detail note reviewed and edited care discussed with RN and RT ICU time spent 40 minutes Subjective ROS Limited/Unobtainable: Yes Allergies: Coded Allergies: BENAZEPRIL (Verified Allergy, Unknown, 06/12/18) CODEINE (Verified Allergy, Unknown, 06/12/18) INSULIN ASPART (Verified Allergy, Unknown, 06/12/18) INSULIN DETEMIR (Verified Allergy, Unknown, 06/12/18) OPIOIDS - MORPHINE ANALOGUES (Verified Allergy, Unknown, 06/12/18) Subjective care noted and reviewed on the vent ICU care reviewed Objective Vital Signs Noted Objective GENERAL: A well-developed female,on the vent; sedated HEENT: Negative. NECK: Supple. no JVD LUNGS: With reduced breath sounds bilaterally. minimal rhonchi CARDIAC: S1 and S2. Slightly distant systolic murmur noted. No rubs or gallops. ABDOMEN: Soft, nontender. Mild subcutaneous edema. EXTREMITIES: No edema. Prior amputations noted. NEUROLOGIC: Grossly nonfocal. reviewed and edited Microbiology Date/Time Source Procedure Growth Status 08/02/18 02:30 Stool Clostridium difficile Toxin Assay - Final Complete Laboratory Tests 08/03/18 06:05: White Blood Count 6.1, Red Blood Count 2.86L, Hemoglobin 7.8L, Hematocrit 26.0L , Mean Corpuscular Volume 91, Mean Corpuscular Hemoglobin 27.4, Mean Corpuscular Hemoglobin Concent 30.1L, Red Cell Distribution Width 16.6H, Platelet Count 129L, Mean Platelet Volume 9.6, Neutrophils (%) (Auto) , Lymphocytes (%) (Auto) , Monocytes (%) (Auto) , Eosinophils (%) (Auto) , Basophils (%) (Auto) , Differential Total Cells Counted 100, Neutrophils % ( Manual) 69, Lymphocytes % (Manual) 14L, Monocytes % (Manual) 10, Eosinophils % ( Manual) 7H, Basophils % (Manual) 0, Band Neutrophils 0, Platelet Estimate DecreasedL, Platelet Morphology Normal, Hypochromasia 2+, Anisocytosis 1+, Sodium Level 137, Potassium Level 4.4, Chloride Level 103, Carbon Dioxide Level 27, Anion Gap 7, Blood Urea Nitrogen 25H, Creatinine 3.8H, Estimat Glomerular Filtration Rate 14.2, Glucose Level 46L, Calcium Level 8.3L, Phosphorus Level 4.0, Magnesium Level 1.6L, Random Vancomycin Level 18.9 08/03/18 08:30: Arterial Blood pH 7.390, Arterial Blood Partial Pressure CO2 42.3, Arterial Blood Partial Pressure O2 63.3L, Arterial Blood HCO3 25.4, Arterial Blood Oxygen Saturation 91.5L, Arterial Blood Base Excess 0.4, Nicola Test Positive Current Medications Medications (Trade) Dose Ordered Sig/Andre Route PRN Reason Start Time Stop Time Status Last Admin Dose Admin Acetaminophen (Tylenol) 650 mg Q6H PRN ORAL Mild Pain/Temp > 100.5 08/02/18 11:45 08/16/18 23:44 Aspirin (ASA) 81 mg DAILY ORAL 08/02/18 12:30 09/01/18 12:29 08/03/18 09:28 Cefepime HCl 0.5 gm/Dextrose 55 ml @ 110 mls/hr Q24H IVPB 08/02/18 13:00 08/09/18 12:59 08/03/18 14:38 Dextrose 1,000 ml @ 30 mls/hr Q24H IV 08/03/18 13:00 09/02/18 12:59 08/03/18 13:24 Dextrose (Dextrose 50%) 25 ml Q30M PRN IV Hypoglycemia 08/02/18 12:00 08/17/18 11:59 08/02/18 15:34 Dextrose (Dextrose 50%) 50 ml Q30M PRN IV Hypoglycemia 08/02/18 12:00 08/17/18 11:59 08/03/18 11:30 Diphenoxylate HCl/ Atropine (Lomotil) 2.5 mg Q4H PRN ORAL Diarrhea 08/02/18 12:30 08/29/18 12:29 Docusate Sodium (Colace) 100 mg THREE TIMES A DAY ORAL 08/02/18 13:00 08/17/18 08:59 08/03/18 13:24 Epoetin Marcus (Procrit (for ESRD on dialysis)) 9,000 units TUE-TUE-TUE SUBQ 08/02/18 21:00 08/18/18 20:59 08/02/18 21:07 Gabapentin (Neurontin) 100 mg DAILY ORAL 08/02/18 13:00 09/01/18 12:59 08/03/18 09:28 Heparin Sodium (Porcine) (Heparin 5000 units/ml) 5,000 units EVERY 12 HOURS SUBQ 08/02/18 21:00 08/17/18 08:59 08/02/18 21:06 Lorazepam (Ativan 2mg/ml 1ml) 1 mg Q6H PRN IV For Anxiety 08/02/18 20:15 08/09/18 20:14 Pantoprazole (Protonix) 40 mg DAILY IVP 08/03/18 09:00 09/02/18 08:59 08/03/18 09:28 Polyethylene Glycol (Miralax) 17 gm DAILYPRN PRN ORAL Constipation 08/02/18 13:00 08/26/18 12:59 Sennosides (Senokot) 17.2 mg QHS ORAL 08/02/18 21:00 08/17/18 20:59 Vancomycin HCl (Vanco rx to dose) 1 ea DAILY PRN MISC Per rx protocol 08/02/18 09:00 09/01/18 08:59 Vitamin B Complex/ Vit C/Folic Acid (Nephrovite) 1 tab DAILY ORAL 08/02/18 13:00 09/01/18 12:59 08/03/18 09:28 Critical Care - Objective Last 24 Hour Vital Signs Date Time Temp Pulse Resp B/P (MAP) Pulse Ox O2 Delivery O2 Flow Rate FiO2 08/05/18 15:23 100 08/05/18 15:11 67 14 60 08/05/18 14:00 66 16 112/59 (76) 100 08/05/18 13:00 66 14 60 08/05/18 13:00 65 14 110/58 (75) 100 08/05/18 12:00 Mechanical Ventilator Mechanical Ventilator Mechanical Ventilator Mechanical Ventilator 08/05/18 12:00 50 08/05/18 12:00 98.6 67 15 112/62 (79) 100 08/05/18 12:00 67 08/05/18 11:00 67 15 97/59 (72) 100 08/05/18 10:00 67 15 100/52 (68) 100 08/05/18 09:22 71 14 60 08/05/18 09:00 67 16 100/53 (69) 100 08/05/18 08:00 98.3 67 15 102/55 (71) 100 08/05/18 08:00 Mechanical Ventilator Mechanical Ventilator Mechanical Ventilator Mechanical Ventilator 08/05/18 08:00 66 08/05/18 08:00 50 08/05/18 07:22 66 15 60 08/05/18 07:00 68 15 106/60 (75) 100 08/05/18 06:00 68 14 117/60 (79) 100 08/05/18 05:00 68 16 92/72 (79) 100 08/05/18 04:55 70 15 60 08/05/18 04:00 50 08/05/18 04:00 Mechanical Ventilator Mechanical Ventilator Mechanical Ventilator Mechanical Ventilator 08/05/18 04:00 98.0 78 19 117/57 (77) 100 08/05/18 03:53 68 08/05/18 03:10 69 14 60 08/05/18 03:00 68 15 101/49 (66) 100 08/05/18 02:00 69 17 119/53 (75) 100 08/05/18 01:03 67 14 60 08/05/18 01:00 67 14 98/47 (64) 100 08/05/18 00:00 Mechanical Ventilator Mechanical Ventilator Mechanical Ventilator Mechanical Ventilator 08/05/18 00:00 97.8 71 17 111/52 (71) 100 08/05/18 00:00 50 08/04/18 23:38 70 08/04/18 23:08 69 16 60 08/04/18 23:00 68 15 109/48 (68) 100 08/04/18 22:00 70 15 101/51 (68) 100 08/04/18 21:28 74 15 60 08/04/18 21:00 67 15 100/47 (64) 100 08/04/18 20:02 69 08/04/18 20:00 97.8 69 15 94/48 (63) 100 08/04/18 20:00 50 08/04/18 20:00 Mechanical Ventilator Mechanical Ventilator Mechanical Ventilator Mechanical Ventilator 08/04/18 19:25 75 18 60 08/04/18 19:00 65 14 109/59 (76) 100 08/04/18 18:00 68 14 100/58 (72) 100 08/04/18 17:16 67 15 60 08/04/18 17:00 66 14 101/55 (70) 100 08/04/18 16:00 50 08/04/18 16:00 65 08/04/18 16:00 Mechanical Ventilator Mechanical Ventilator Mechanical Ventilator Mechanical Ventilator 08/04/18 16:00 98.7 75 17 98/51 (67) 100 Micro: Microbiology Date/Time Source Procedure Growth Status 08/03/18 12:00 Sputum Gram Stain - Final Resulted 08/03/18 12:00 Sputum Culture - Preliminary Gram Negative Bacillus 1 Resulted Accucheck: 73 Critical Care - Subjective ROS Limited/Unobtainable: Yes Condition: stable FI02: 60 Vent Support Breath Rate: 10 Vent Support Mode: AC Vent Tidal Volume: 500 Sputum Amount: Scant PEEP: 5.0 PIP: 40 I&O: Intake and Output 08/04/18 08/05/18 19:00 07:00 Intake Total 385 ml 410 ml Output Total 7500 ml 0 ml Balance -7115 ml 410 ml Intake Oral 0 ml 0 ml IV Total 385 ml 360 ml Other 50 ml Output Urine Total 0 ml 0 ml Drainage Total 0 ml Hemodialysis UF 7500 ml ET-Tube: 7.0 ET Position: 24 Joaquin Mackenzie MD Aug 05, 2018 15:46
--- NOTE | 2018-08-05 16:00 | Cardiology Progress Note ---
Assessment/Plan Assessment/Plan respiratory failure Hypotension resolved CHF, history of endocarditis MR TR doing better not on any pressr weaning form vent no new issues per staff Subjective Cardiovascular: Denies: chest pain, lightheadedness, palpitations Respiratory: Denies: shortness of breath Gastrointestinal/Abdominal: Denies: abdominal pain Genitourinary: Denies: burning Objective Last 24 Hour Vital Signs Date Time Temp Pulse Resp B/P (MAP) Pulse Ox O2 Delivery O2 Flow Rate FiO2 08/05/18 15:23 100 08/05/18 15:11 67 14 60 08/05/18 14:00 66 16 112/59 (76) 100 08/05/18 13:00 66 14 60 08/05/18 13:00 65 14 110/58 (75) 100 08/05/18 12:00 Mechanical Ventilator Mechanical Ventilator Mechanical Ventilator Mechanical Ventilator 08/05/18 12:00 50 08/05/18 12:00 98.6 67 15 112/62 (79) 100 08/05/18 12:00 67 08/05/18 11:00 67 15 97/59 (72) 100 08/05/18 10:00 67 15 100/52 (68) 100 08/05/18 09:22 71 14 60 08/05/18 09:00 67 16 100/53 (69) 100 08/05/18 08:00 98.3 67 15 102/55 (71) 100 08/05/18 08:00 Mechanical Ventilator Mechanical Ventilator Mechanical Ventilator Mechanical Ventilator 08/05/18 08:00 66 08/05/18 08:00 50 08/05/18 07:22 66 15 60 08/05/18 07:00 68 15 106/60 (75) 100 08/05/18 06:00 68 14 117/60 (79) 100 08/05/18 05:00 68 16 92/72 (79) 100 08/05/18 04:55 70 15 60 08/05/18 04:00 50 08/05/18 04:00 Mechanical Ventilator Mechanical Ventilator Mechanical Ventilator Mechanical Ventilator 08/05/18 04:00 98.0 78 19 117/57 (77) 100 08/05/18 03:53 68 08/05/18 03:10 69 14 60 08/05/18 03:00 68 15 101/49 (66) 100 08/05/18 02:00 69 17 119/53 (75) 100 08/05/18 01:03 67 14 60 08/05/18 01:00 67 14 98/47 (64) 100 08/05/18 00:00 Mechanical Ventilator Mechanical Ventilator Mechanical Ventilator Mechanical Ventilator 08/05/18 00:00 97.8 71 17 111/52 (71) 100 08/05/18 00:00 50 08/04/18 23:38 70 08/04/18 23:08 69 16 60 08/04/18 23:00 68 15 109/48 (68) 100 08/04/18 22:00 70 15 101/51 (68) 100 08/04/18 21:28 74 15 60 08/04/18 21:00 67 15 100/47 (64) 100 08/04/18 20:02 69 08/04/18 20:00 97.8 69 15 94/48 (63) 100 08/04/18 20:00 50 08/04/18 20:00 Mechanical Ventilator Mechanical Ventilator Mechanical Ventilator Mechanical Ventilator 08/04/18 19:25 75 18 60 08/04/18 19:00 65 14 109/59 (76) 100 08/04/18 18:00 68 14 100/58 (72) 100 08/04/18 17:16 67 15 60 08/04/18 17:00 66 14 101/55 (70) 100 08/04/18 16:00 50 08/04/18 16:00 65 08/04/18 16:00 Mechanical Ventilator Mechanical Ventilator Mechanical Ventilator Mechanical Ventilator 08/04/18 16:00 98.7 75 17 98/51 (67) 100 General Appearance: alert, on vent Cardiovascular: normal rate Respiratory/Chest: lungs clear Abdomen: normal bowel sounds, non tender, soft Extremities: moderate edema Intake and Output 08/04/18 08/05/18 19:00 07:00 Intake Total 385 ml 410 ml Output Total 7500 ml 0 ml Balance -7115 ml 410 ml Intake Oral 0 ml 0 ml IV Total 385 ml 360 ml Other 50 ml Output Urine Total 0 ml 0 ml Drainage Total 0 ml Hemodialysis UF 7500 ml Laboratory Tests Test 08/05/18 05:20 Random Vancomycin Level 23.9 ug/mL Microbiology Date/Time Source Procedure Growth Status 08/03/18 12:00 Sputum Gram Stain - Final Resulted 08/03/18 12:00 Sputum Culture - Preliminary Gram Negative Bacillus 1 Resulted Binh Nguyen MD Aug 05, 2018 16:00
--- NOTE | 2018-08-05 16:00 | NUR ---
NURSE NOTES: Patient cleaned at this time.Patient VS stable at this time with no sign of acute distress at this time. Patient given oral care at this time. Patient bed in low position with bed alarm on. Will continue to monitor.
--- NOTE | 2018-08-05 18:00 | NUR ---
NURSE NOTES: Patient VS stable with no sign of acute distress. Patient on SIMV setting on BiPAP at this time. Patient to be weened off of the vent. Will continue to monitor.
--- NOTE | 2018-08-05 19:11 | NUR ---
HAND-OFF: Report given to CHAPIS Grider. Patient VS stable with no sign of acute distress. Patient to be weened off of ventilator tomorrow. Endorsed to follow up. Patient no longer has an OGT. Patient may need another one if she is not weened. Endorsed to follow up.
--- NOTE | 2018-08-05 19:50 | NUR ---
NURSE NOTES: PATIENT OPEN EYES, RIGHT EYE OPACITY, BOTH LEGALLY BLIND STATUS, ON ETT TO VENT SIMV10, PS10/TV500/FIO2 50%/PEEP5, TOLERATED AND O2 SATURATION 100%, NO OGT AND NPO STATUS, ABDOMEN SOFT, ROUND, NON TENDER STATUS, HYPOACTIVE BOWEL SOUND TO 4 QUADRANTS, NO BOWEL MOVEMENT AND ANURIC STATUS, RIGHT BKA, A-V SHUNT TO RIGHT UPPER ARM, PALPABLE THRILL, BRUIT, KEPT RIGHT ARM PRECAUTION, RIGHT BKA, LEFT HEEL WOUND VAC WITHOUT DRAINAGE STATUS, ELEVATED LEFT HEEL, PERIPHERAL LINE TO RIGHT HAND, 22G X2, 20GX1 THAT REMOVED 22G X2 DUE TO INFILTRATED AND GOOD BLOOD RETURN VIA 20G, CHANGED DRESSING IV SITE, ONGOING D10%W AT 30ML/HR VIA PERIPHERAL LINE, 2 POINT SOFT RESTRAINTS FOR SAFETY, ON P200 BED, MADE LOWER BED POSITION, PROVIDED CALL LIGHT WITHIN REACH, WILL CONTINUE TO MONITOR.
[2018-08-05] MEDS: Sennosides 8.6mg tab ORAL SCH (20:41)
--- NOTE | 2018-08-05 21:20 | NUR ---
NURSE NOTES: SEEN THE PATIENT, RECEIVED NEW ORDER AND CARRIED OUT.
--- NOTE | 2018-08-05 22:48 | NUR ---
NURSE NOTES: PATIENT ASLEEP STATUS, NO ACUTE DISTRESS NOTED AT THIS TIME.
[2018-08-06] VITALS (26 sets, daily range): BP systolic 87–127; BP diastolic 43–88
--- NOTE | 2018-08-06 00:33 | NUR ---
NURSE NOTES: PATIENT AWOKE, DENIED PAIN OR DISTRESS STATUS, WILL CONTINUE TO MONITOR.
--- NOTE | 2018-08-06 02:00 | NUR ---
NURSE NOTES: RELEASED RESTRAINTS AND REAPPLIED FOR SAFETY, PATIENT TRIED TO TOUCH LINE WHEN RELEASED, WILL CONTINUE TO MONITOR.
--- NOTE | 2018-08-06 02:35 | NUR ---
NURSE NOTES: PATIENT ASLEEP STATUS, CONTINUOUS VENT MACHINE ALARM STATUS THAT CALLED RT, WILL CONTINUE TO MONITOR.
--- NOTE | 2018-08-06 02:40 | NUR ---
RESPIRATORY NOTE: Pt. was put on previous setting. A/C rate of 14, Vt 500, FI02 50%(prev 60%), PEEP +5 bec. pt. can't get enought Vte and discomfort was noted. With the previous setting, pt. have adequate Vte and no discomfort noted. RN Cheo aware. Will continue to monitor pt.
--- NOTE | 2018-08-06 04:00 | NUR ---
NURSE NOTES: MORNING CARE AND ORAL CARE WAS DONE, NO BOWEL MOVEMENT, WILL CONTINUE PLAN OF CARE.
[2018-08-06 05:39] LABS: BASOPHILS % (AUTO) 0.5 % (0.0-2.0); EOSINOPHILS % (AUTO) 7.2 % (0.0-3.0); HEMATOCRIT 27.2 % (37.0-47.0); HEMOGLOBIN 8.3 G/DL (12.0-16.0); LYMPHOCYTES % (AUTO) 21.1 % (20.0-45.0); MEAN CORPUSCULAR VOLUME 91 FL (80-99); MONOCYTES % (AUTO) 9.3 % (1.0-10.0); NEUTROPHILS % (AUTO) 61.9 % (45.0-75.0); PLATELET COUNT 160 K/UL (150-450); RED CELL DISTRIBUTION WIDTH 17.8 % (11.6-14.8); WHITE BLOOD COUNT 5.2 K/UL (4.8-10.8)
--- NOTE | 2018-08-06 05:48 | NUR ---
NURSE NOTES: BS 65MG/DL AT 0526AM, 64MG/DL AT 0530AM, NO HYPOGLYCEMIA SIGN NOTED THAT GIVEN D50%W, 25ML IVP VIA PERIPHERAL LINE ORDERED AT 0532AM. RECHECKED BLOOD SUGAR 118MG/DL NOTED AT THIS TIME, WILL CONTINUE TO MONITOR.
[2018-08-06 06:03] LABS: ANION GAP 7 mmol/L (5-15); BLOOD UREA NITROGEN 21 mg/dL (7-18); CALCIUM 8.8 MG/DL (8.5-10.1); CARBON DIOXIDE 27 MMOL/L (21-32); CHLORIDE 102 MMOL/L (98-107); CREATININE 4.2 MG/DL (0.55-1.30); POTASSIUM 3.9 MMOL/L (3.5-5.1); SODIUM 136 MMOL/L (136-145)
--- NOTE | 2018-08-06 07:27 | NUR ---
HAND-OFF: Report given to NICHO/CHAPIS.
--- NOTE | 2018-08-06 07:29 | NUR ---
RESPIRATORY NOTE: Patient received mechanically ventilated on PB840 with current ordered vent settings. Patient is orally intubated with a 7.0 with 24cm at the lip and is secured with an anchor fast. Patient presents with bilateral coarse breath sounds upon auscultation. Moderate amount of thick clear secretions were suctioned via inline suction system without incident. There is an ambu bag available at the beside and the vent is connected to a red outlet. Vent alarms are functional and audible. Will continue to mc
--- NOTE | 2018-08-06 07:30 | NUR ---
NURSE NOTES: Received patient and the change of shift from Cheo Ferguson RN. Patient is on ventilator and setting AC 14, TV 500, FiO2 50% and peep 5. Awake, alert and able to respond with gesture and body language. IVF D10 is infusing via peripheral line on left hand with 20 gauge and no s/s of infiltration or infection. Head of bed in 45 degree. Soft restraints on both wrists for safety and treatment. Wound vac ultra intact on left heel. Anuric. B/P 120/89, Resp 18, oxygen saturation 100% and HR 66.
[2018-08-06] MEDS: Aspirin Baby 81mg ORAL SCH ×2 (08:15→08:31)
[2018-08-06] MEDS: Nephrovite tab (Rena-Vite) ORAL SCH ×2 (08:15→08:31)
[2018-08-06] MEDS: Pantoprazole Inj IVP SCH (08:15)
[2018-08-06] MEDS: Docusate 100mg cap ORAL SCH ×4 (08:15→17:55)
[2018-08-06] MEDS: Heparin 5000 units/ml inj SUBQ SCH ×2 (08:16→20:32)
--- NOTE | 2018-08-06 09:14 | Diagnostic Imaging Report ---
EXAM: XR Chest, 1 View CLINICAL HISTORY: F/U TECHNIQUE: Frontal view of the chest. COMPARISON: Chest x-ray dated 08/03/18 FINDINGS: Lungs: No significant change in prominent increased interstitial markings. Sub-segmental atelectasis versus infiltrates in bilateral lung bases, not significantly changed. Pleural space: Persistent bilateral [id number] pleural effusions with possible pleural thickening, not significantly changed. Heart: Unremarkable. No cardiomegaly. Mediastinum: Unremarkable. Bones/joints: Unremarkable. Tubes, lines and devices: Endotracheal tube tip is 1.1 cm above the kellen. EKG leads overlie the thorax. IMPRESSION: 1. Endotracheal tube tip is 1.1 cm above the kellen. 2. No significant interval change compared to the prior chest x-ray.
--- NOTE | 2018-08-06 09:18 | Infectious Diseases Prog Note ---
"Assessment/Plan Assessment/Plan A: 1. enterococcus | streptococcus UTI 2. pneumonia 3. diabetes mellitus 4. hypertension 5. renal failure on hemodialysis 6. history of left foot osteomyelitis &. Hypercapnic respiratory failure 9. Pleural effusion 10. Acinetobcter pneumonia P 1. discontinue vancomycin iv, & Cefepime 2. Chest US 3. Start on Colistin inhaler Subjective ROS Limited/Unobtainable: Yes Constitutional: Reports: no symptoms Allergies: Coded Allergies: BENAZEPRIL (Verified Allergy, Unknown, 06/12/18) CODEINE (Verified Allergy, Unknown, 06/12/18) INSULIN ASPART (Verified Allergy, Unknown, 06/12/18) INSULIN DETEMIR (Verified Allergy, Unknown, 06/12/18) OPIOIDS - MORPHINE ANALOGUES (Verified Allergy, Unknown, 06/12/18) Objective Vital Signs Last 24 Hour Vital Signs Date Time Temp Pulse Resp B/P (MAP) Pulse Ox O2 Delivery O2 Flow Rate FiO2 08/06/18 08:00 67 08/06/18 08:00 71 16 127/67 (87) 100 08/06/18 08:00 40 08/06/18 08:00 Mechanical Ventilator Mechanical Ventilator Mechanical Ventilator Mechanical Ventilator 08/06/18 07:25 73 21 50 08/06/18 07:00 75 14 119/57 (77) 100 08/06/18 06:00 67 14 110/82 (91) 100 08/06/18 05:27 67 16 50 08/06/18 05:00 65 16 121/49 (73) 100 08/06/18 04:00 97.5 63 14 113/49 (70) 100 08/06/18 04:00 Mechanical Ventilator Mechanical Ventilator Mechanical Ventilator Mechanical Ventilator 08/06/18 04:00 50 08/06/18 03:38 65 08/06/18 03:00 62 14 111/46 (67) 100 08/06/18 02:34 68 17 50 08/06/18 02:00 63 17 101/43 (62) 100 08/06/18 01:35 64 19 50 08/06/18 01:00 64 20 109/46 (67) 100 08/06/18 00:00 50 08/06/18 00:00 Mechanical Ventilator Mechanical Ventilator Mechanical Ventilator Mechanical Ventilator 08/06/18 00:00 97.7 62 16 104/46 (65) 100 08/05/18 23:34 63 1/12/19 23:27 64 18 50 08/05/18 23:00 64 16 105/45 (65) 100 08/05/18 22:00 65 16 108/46 (66) 100 08/05/18 21:21 65 21 50 08/05/18 21:00 65 16 101/45 (63) 100 08/05/18 20:00 98.5 67 16 103/47 (65) 100 08/05/18 20:00 Mechanical Ventilator Mechanical Ventilator Mechanical Ventilator Mechanical Ventilator 08/05/18 20:00 50 08/05/18 19:26 67 08/05/18 18:55 67 16 115/55 (75) 100 08/05/18 18:45 66 18 50 08/05/18 18:00 68 16 115/55 (75) 100 08/05/18 17:05 68 17 50 08/05/18 17:00 98.6 68 18 110/56 (74) 100 08/05/18 16:01 69 08/05/18 16:00 50 08/05/18 16:00 100 22 106/56 (73) 100 08/05/18 16:00 Mechanical Ventilator Mechanical Ventilator Mechanical Ventilator Mechanical Ventilator 08/05/18 15:30 50 08/05/18 15:23 100 08/05/18 15:23 100 08/05/18 15:11 67 14 60 08/05/18 15:00 69 18 112/61 (78) 100 08/05/18 14:00 66 16 112/59 (76) 100 08/05/18 13:00 66 14 60 08/05/18 13:00 65 14 110/58 (75) 100 08/05/18 12:00 Mechanical Ventilator Mechanical Ventilator Mechanical Ventilator Mechanical Ventilator 08/05/18 12:00 50 08/05/18 12:00 98.6 67 15 112/62 (79) 100 08/05/18 12:00 67 08/05/18 11:00 67 15 97/59 (72) 100 08/05/18 10:00 67 15 100/52 (68) 100 08/05/18 09:22 71 14 60 Height (Feet): 5 Height (Inches): 7.00 Weight (Pounds): 218 HEENT: other - orally intubated Respiratory/Chest: lungs clear, other - on ventilator Cardiovascular: normal rate Abdomen: soft, non tender Extremities: other - generlized edea Neurologic/Psychiatric: alert, responsive Microbiology Date/Time Source Procedure Growth Status 08/03/18 12:00 Sputum Gram Stain - Final Resulted 08/03/18 12:00 Sputum Culture - Preliminary A.[email or web address] Complx - Mdr Resulted Laboratory Tests Test 08/06/18 04:45 08/06/18 08:10 White Blood Count 5.2 K/UL (4.8-10.8) Red Blood Count 3.00 M/UL (4.20-5.40) L Hemoglobin 8.3 G/DL (12.0-16.0) L Hematocrit 27.2 % (37.0-47.0) L Mean Corpuscular Volume 91 FL (80-99) Mean Corpuscular Hemoglobin 27.6 PG (27.0-31.0) Mean Corpuscular Hemoglobin Concent 30.4 G/DL (32.0-36.0) L Red Cell Distribution Width 17.8 % (11.6-14.8) H Platelet Count 160 K/UL (150-450) Mean Platelet Volume 10.4 FL (6.5-10.1) H Neutrophils (%) (Auto) 61.9 % (45.0-75.0) Lymphocytes (%) (Auto) 21.1 % (20.0-45.0) Monocytes (%) (Auto) 9.3 % (1.0-10.0) Eosinophils (%) (Auto) 7.2 % (0.0-3.0) H Basophils (%) (Auto) 0.5 % (0.0-2.0) Sodium Level 136 MMOL/L (136-145) Potassium Level 3.9 MMOL/L (3.5-5.1) Chloride Level 102 MMOL/L (98-107) Carbon Dioxide Level 27 MMOL/L (21-32) Anion Gap 7 mmol/L (5-15) Blood Urea Nitrogen 21 mg/dL (7-18) H Creatinine 4.2 MG/DL (0.55-1.30) H Estimat Glomerular Filtration Rate 12.7 mL/min (>60) Glucose Level 70 MG/DL (74-106) L Calcium Level 8.8 MG/DL (8.5-10.1) Magnesium Level 2.2 MG/DL (1.8-2.4) Arterial Blood pH 7.400 (7.350-7.450) Arterial Blood Partial Pressure CO2 39.8 mmHg (35.0-45.0) Arterial Blood Partial Pressure O2 197.0 mmHg (75.0-100.0) H Arterial Blood HCO3 24.1 mmol/L (22.0-26.0) Arterial Blood Oxygen Saturation 99.3 % (95-100) Arterial Blood Base Excess -6.0 (-2-2) L Nicola Test Positive Current Medications Medications (Trade) Dose Ordered Sig/Andre Route PRN Reason Start Time Stop Time Status Last Admin Dose Admin Acetaminophen (Tylenol) 650 mg Q6H PRN ORAL Mild Pain/Temp > 100.5 08/02/18 11:45 08/16/18 23:44 Aspirin (ASA) 81 mg DAILY ORAL 08/02/18 12:30 09/01/18 12:29 08/05/18 09:17 Cefepime HCl 0.5 gm/Dextrose 55 ml @ 110 mls/hr Q24H IVPB 08/02/18 13:00 08/09/18 12:59 08/05/18 12:41 Dextrose 1,000 ml @ 30 mls/hr Q24H IV 08/03/18 13:00 09/02/18 12:59 08/05/18 13:40 Dextrose (Dextrose 50%) 25 ml Q30M PRN IV Hypoglycemia 08/02/18 12:00 08/17/18 11:59 08/06/18 05:32 Dextrose (Dextrose 50%) 50 ml Q30M PRN IV Hypoglycemia 08/02/18 12:00 08/17/18 11:59 08/03/18 11:30 Diphenoxylate HCl/ Atropine (Lomotil) 2.5 mg Q4H PRN ORAL Diarrhea 08/02/18 12:30 08/29/18 12:29 Docusate Sodium (Colace) 100 mg THREE TIMES A DAY ORAL 08/02/18 13:00 08/17/18 08:59 08/05/18 09:17 Epoetin Marcus (Procrit (for ESRD on dialysis)) 10,000 units TUE-TUE-TUE SUBQ 08/04/18 21:00 08/18/18 20:59 08/04/18 20:34 Heparin Sodium (Porcine) (Heparin 5000 units/ml) 5,000 units EVERY 12 HOURS SUBQ 08/02/18 21:00 08/17/18 08:59 08/06/18 08:16 Lorazepam (Ativan 2mg/ml 1ml) 1 mg Q6H PRN IV For Anxiety 08/02/18 20:15 08/09/18 20:14 Pantoprazole (Protonix) 40 mg DAILY IVP 08/03/18 09:00 09/02/18 08:59 08/06/18 08:15 Polyethylene Glycol (Miralax) 17 gm DAILYPRN PRN ORAL Constipation 08/02/18 13:00 08/26/18 12:59 Sennosides (Senokot) 17.2 mg QHS ORAL 08/02/18 21:00 08/17/18 20:59 08/04/18 20:34 Vancomycin HCl (Vanco rx to dose) 1 ea DAILY PRN MISC Per rx protocol 08/02/18 09:00 09/01/18 08:59 Vitamin B Complex/ Vit C/Folic Acid (Nephrovite) 1 tab DAILY ORAL 08/02/18 13:00 09/01/18 12:59 08/05/18 09:17 Joe Melgar MD Aug 06, 2018 09:17"
[2018-08-06] MEDS ORDERED: Colistin for inhalation INH SCH (10:00)
--- NOTE | 2018-08-06 10:07 | Nephrology Progress Note ---
Assessment/Plan Plan VDRF. B pleural Effusion. 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 On IV Abx per ID. HD MWF. Increase UF on HD. Try to wean off vent. Maintain euglycemia with IV D5 0.45 NS. Subjective Subjective Intubated, On vent. In ICU. Objective Objective Last 24 Hour Vital Signs Date Time Temp Pulse Resp B/P (MAP) Pulse Ox O2 Delivery O2 Flow Rate FiO2 08/06/18 09:24 69 15 122/56 (78) 100 08/06/18 09:19 70 21 50 08/06/18 09:00 69 15 122/56 (78) 100 08/06/18 08:01 98.1 71 16 127/67 (87) 100 08/06/18 08:00 67 08/06/18 08:00 71 16 127/67 (87) 100 08/06/18 08:00 40 08/06/18 08:00 Mechanical Ventilator Mechanical Ventilator Mechanical Ventilator Mechanical Ventilator 08/06/18 07:25 73 21 50 08/06/18 07:00 75 14 119/57 (77) 100 08/06/18 06:00 67 14 110/82 (91) 100 08/06/18 05:27 67 16 50 08/06/18 05:00 65 16 121/49 (73) 100 08/06/18 04:00 97.5 63 14 113/49 (70) 100 08/06/18 04:00 Mechanical Ventilator Mechanical Ventilator Mechanical Ventilator Mechanical Ventilator 08/06/18 04:00 50 08/06/18 03:38 65 08/06/18 03:00 62 14 111/46 (67) 100 08/06/18 02:34 68 17 50 08/06/18 02:00 63 17 101/43 (62) 100 08/06/18 01:35 64 19 50 08/06/18 01:00 64 20 109/46 (67) 100 08/06/18 00:00 50 08/06/18 00:00 Mechanical Ventilator Mechanical Ventilator Mechanical Ventilator Mechanical Ventilator 08/06/18 00:00 97.7 62 16 104/46 (65) 100 08/05/18 23:34 63 08/05/18 23:27 64 18 50 08/05/18 23:00 64 16 105/45 (65) 100 08/05/18 22:00 65 16 108/46 (66) 100 08/05/18 21:21 65 21 50 08/05/18 21:00 65 16 101/45 (63) 100 08/05/18 20:00 98.5 67 16 103/47 (65) 100 08/05/18 20:00 Mechanical Ventilator Mechanical Ventilator Mechanical Ventilator Mechanical Ventilator 08/05/18 20:00 50 08/05/18 19:26 67 08/05/18 18:55 67 16 115/55 (75) 100 08/05/18 18:45 66 18 50 08/05/18 18:00 68 16 115/55 (75) 100 08/05/18 17:05 68 17 50 08/05/18 17:00 98.6 68 18 110/56 (74) 100 08/05/18 16:01 69 08/05/18 16:00 50 08/05/18 16:00 100 22 106/56 (73) 100 08/05/18 16:00 Mechanical Ventilator Mechanical Ventilator Mechanical Ventilator Mechanical Ventilator 08/05/18 15:30 50 08/05/18 15:23 100 08/05/18 15:23 100 08/05/18 15:11 67 14 60 08/05/18 15:00 69 18 112/61 (78) 100 08/05/18 14:00 66 16 112/59 (76) 100 08/05/18 13:00 66 14 60 08/05/18 13:00 65 14 110/58 (75) 100 08/05/18 12:00 Mechanical Ventilator Mechanical Ventilator Mechanical Ventilator Mechanical Ventilator 08/05/18 12:00 50 08/05/18 12:00 98.6 67 15 112/62 (79) 100 08/05/18 12:00 67 08/05/18 11:00 67 15 97/59 (72) 100 Intake and Output 08/05/18 08/06/18 19:00 07:00 Intake Total 385 ml 360 ml Output Total 0 ml 0 ml Balance 385 ml 360 ml Intake Oral 0 ml 0 ml IV Total 385 ml 360 ml Output Urine Total 0 ml 0 ml Drainage Total 0 ml # Bowel Movements 5 Laboratory Tests 08/06/18 04:45: White Blood Count 5.2, Red Blood Count 3.00L, Hemoglobin 8.3L, Hematocrit 27.2L , Mean Corpuscular Volume 91, Mean Corpuscular Hemoglobin 27.6, Mean Corpuscular Hemoglobin Concent 30.4L, Red Cell Distribution Width 17.8H, Platelet Count 160, Mean Platelet Volume 10.4H, Neutrophils (%) (Auto) 61.9, Lymphocytes (%) (Auto) 21.1, Monocytes (%) (Auto) 9.3, Eosinophils (%) (Auto) 7.2H, Basophils (%) (Auto) 0.5, Sodium Level 136, Potassium Level 3.9, Chloride Level 102, Carbon Dioxide Level 27, Anion Gap 7, Blood Urea Nitrogen 21H, Creatinine 4.2H, Estimat Glomerular Filtration Rate 12.7, Glucose Level 70L, Calcium Level 8.8, Magnesium Level 2.2 08/06/18 08:10: Arterial Blood pH 7.400, Arterial Blood Partial Pressure CO2 39.8, Arterial Blood Partial Pressure O2 197.0H, Arterial Blood HCO3 24.1, Arterial Blood Oxygen Saturation 99.3, Arterial Blood Base Excess -6.0L, Nicola Test Positive Height (Feet): 5 Height (Inches): 7.00 Weight (Pounds): 218 Objective Intubated, On vent. Blind CV RR Lungs CTA Abd SNT. BS + E No CCE Neuro:Alert, nonfocal. Brenda Fuller MD Aug 06, 2018 10:07
[2018-08-06] MEDS ORDERED: Heparin Sod 1000 units/ml 10ml IV PRN (10:12)
--- NOTE | 2018-08-06 12:42 | NUR ---
NURSE NOTES: Current blood sugar 66 and Dextrose 50% IVP given per order PRN.
[2018-08-06] MEDS: Dextrose 10% 1,000 ML IV SCH (12:44)
--- NOTE | 2018-08-06 13:21 | NUR ---
NURSE NOTES: Current blood sugar 111. No s/s of hypo/hyperglycemia.
--- NOTE | 2018-08-06 13:48 | Cardiology Progress Note ---
Assessment/Plan Assessment/Plan respiratory failure Hypotension resolved CHF, history of endocarditis MR TR failed weaning doing better not on any pressors no new issues per staff labs noted cxr unchanged albert noted neg Subjective Cardiovascular: Denies: chest pain, lightheadedness, palpitations Respiratory: Denies: shortness of breath Gastrointestinal/Abdominal: Denies: abdominal pain Genitourinary: Denies: burning Objective Last 24 Hour Vital Signs Date Time Temp Pulse Resp B/P (MAP) Pulse Ox O2 Delivery O2 Flow Rate FiO2 08/06/18 13:04 68 15 40 08/06/18 13:00 67 15 126/69 (88) 100 08/06/18 12:00 Mechanical Ventilator Mechanical Ventilator Mechanical Ventilator Mechanical Ventilator 08/06/18 12:00 70 08/06/18 12:00 97.7 70 15 126/55 (78) 100 08/06/18 12:00 40 08/06/18 11:00 69 14 119/61 (80) 100 08/06/18 10:32 65 14 40 08/06/18 10:00 68 18 113/59 (77) 100 08/06/18 09:24 69 15 122/56 (78) 100 08/06/18 09:19 70 21 40 08/06/18 09:00 69 15 122/56 (78) 100 08/06/18 08:19 40 08/06/18 08:01 98.1 71 16 127/67 (87) 100 08/06/18 08:00 67 08/06/18 08:00 71 16 127/67 (87) 100 08/06/18 08:00 40 08/06/18 08:00 Mechanical Ventilator Mechanical Ventilator Mechanical Ventilator Mechanical Ventilator 08/06/18 07:25 73 21 50 08/06/18 07:00 75 14 119/57 (77) 100 08/06/18 06:00 67 14 110/82 (91) 100 08/06/18 05:27 67 16 50 08/06/18 05:00 65 16 121/49 (73) 100 08/06/18 04:00 97.5 63 14 113/49 (70) 100 08/06/18 04:00 Mechanical Ventilator Mechanical Ventilator Mechanical Ventilator Mechanical Ventilator 08/06/18 04:00 50 08/06/18 03:38 65 08/06/18 03:00 62 14 111/46 (67) 100 08/06/18 02:34 68 17 50 08/06/18 02:00 63 17 101/43 (62) 100 08/06/18 01:35 64 19 50 08/06/18 01:00 64 20 109/46 (67) 100 08/06/18 00:00 50 08/06/18 00:00 Mechanical Ventilator Mechanical Ventilator Mechanical Ventilator Mechanical Ventilator 08/06/18 00:00 97.7 62 16 104/46 (65) 100 08/05/18 23:34 63 08/05/18 23:27 64 18 50 08/05/18 23:00 64 16 105/45 (65) 100 08/05/18 22:00 65 16 108/46 (66) 100 08/05/18 21:21 65 21 50 08/05/18 21:00 65 16 101/45 (63) 100 08/05/18 20:00 98.5 67 16 103/47 (65) 100 08/05/18 20:00 Mechanical Ventilator Mechanical Ventilator Mechanical Ventilator Mechanical Ventilator 08/05/18 20:00 50 08/05/18 19:26 67 08/05/18 18:55 67 16 115/55 (75) 100 08/05/18 18:45 66 18 50 08/05/18 18:00 68 16 115/55 (75) 100 08/05/18 17:05 68 17 50 08/05/18 17:00 98.6 68 18 110/56 (74) 100 08/05/18 16:01 69 08/05/18 16:00 50 08/05/18 16:00 100 22 106/56 (73) 100 08/05/18 16:00 Mechanical Ventilator Mechanical Ventilator Mechanical Ventilator Mechanical Ventilator 08/05/18 15:30 50 08/05/18 15:23 100 08/05/18 15:23 100 08/05/18 15:11 67 14 60 08/05/18 15:00 69 18 112/61 (78) 100 08/05/18 14:00 66 16 112/59 (76) 100 General Appearance: alert, on vent Neck: supple Cardiovascular: normal rate Respiratory/Chest: lungs clear Abdomen: non tender, soft Extremities: moderate edema Intake and Output 08/05/18 08/06/18 19:00 07:00 Intake Total 385 ml 360 ml Output Total 0 ml 0 ml Balance 385 ml 360 ml Intake Oral 0 ml 0 ml IV Total 385 ml 360 ml Output Urine Total 0 ml 0 ml Drainage Total 0 ml # Bowel Movements 5 Laboratory Tests Test 08/06/18 04:45 08/06/18 08:10 White Blood Count 5.2 K/UL (4.8-10.8) Red Blood Count 3.00 M/UL (4.20-5.40) L Hemoglobin 8.3 G/DL (12.0-16.0) L Hematocrit 27.2 % (37.0-47.0) L Mean Corpuscular Volume 91 FL (80-99) Mean Corpuscular Hemoglobin 27.6 PG (27.0-31.0) Mean Corpuscular Hemoglobin Concent 30.4 G/DL (32.0-36.0) L Red Cell Distribution Width 17.8 % (11.6-14.8) H Platelet Count 160 K/UL (150-450) Mean Platelet Volume 10.4 FL (6.5-10.1) H Neutrophils (%) (Auto) 61.9 % (45.0-75.0) Lymphocytes (%) (Auto) 21.1 % (20.0-45.0) Monocytes (%) (Auto) 9.3 % (1.0-10.0) Eosinophils (%) (Auto) 7.2 % (0.0-3.0) H Basophils (%) (Auto) 0.5 % (0.0-2.0) Sodium Level 136 MMOL/L (136-145) Potassium Level 3.9 MMOL/L (3.5-5.1) Chloride Level 102 MMOL/L (98-107) Carbon Dioxide Level 27 MMOL/L (21-32) Anion Gap 7 mmol/L (5-15) Blood Urea Nitrogen 21 mg/dL (7-18) H Creatinine 4.2 MG/DL (0.55-1.30) H Estimat Glomerular Filtration Rate 12.7 mL/min (>60) Glucose Level 70 MG/DL (74-106) L Calcium Level 8.8 MG/DL (8.5-10.1) Magnesium Level 2.2 MG/DL (1.8-2.4) Arterial Blood pH 7.400 (7.350-7.450) Arterial Blood Partial Pressure CO2 39.8 mmHg (35.0-45.0) Arterial Blood Partial Pressure O2 197.0 mmHg (75.0-100.0) H Arterial Blood HCO3 24.1 mmol/L (22.0-26.0) Arterial Blood Oxygen Saturation 99.3 % (95-100) Arterial Blood Base Excess -6.0 (-2-2) L Nicola Test Positive Binh Nguyen MD Aug 06, 2018 13:48
--- NOTE | 2018-08-06 14:48 | NUR ---
NURSE NOTES: Patient was seen by Dr. Nguyen and no new order.
--- NOTE | 2018-08-06 15:30 | NUR ---
NURSE NOTES: Patient was seen by Dr. Mackenzie and Received the orders to pull out ET tube 1.5cm and follow up chest x ray.
--- NOTE | 2018-08-06 15:58 | NUR ---
RESPIRATORY NOTE: Per Dr. Mackenzie to retract 1.5cm from the ETT tube. Now placed at 22.5cm. RN notified and will follow up with x-rays to confirm placement. Will continue to monitor.
[2018-08-06] MEDS ORDERED: NS 275ml ONE (16:40)
[2018-08-06] MEDS ORDERED: Sterile Water Irrig 1000ml IRRIG ONE (16:40)
--- NOTE | 2018-08-06 18:42 | Pulmonolgy Critical Care Note ---
Critical Care - Asmt/Plan Assessment/Plan: Pulmonary CCM Progress Note Assessment/Plan IMPRESSION: 1. Acute on chronic respiratory failure - wean as tolerated, adjust ETT 2. Acute hypercapnia. 3. Hypoxemia. 4. Bilateral pleural effusions. 5. Fluid overload. 6. End-stage renal disease. 7. Severe protein-calorie malnutrition. 8. Anemia. 9. Thrombocytopenia. 10. Mild coagulopathy. PLAN likely needs trach with poor baseline likely has obesity hypoventilation would recommend to proceed and place in subacute monitor acid base sedation will follow up nutrition keep negative medications/laboratory data/nursing notes/ICU care reviewed in detail note reviewed and edited care discussed with RN and RT ICU time spent 40 minutes Subjective ROS Limited/Unobtainable: Yes Allergies: Coded Allergies: BENAZEPRIL (Verified Allergy, Unknown, 06/12/18) CODEINE (Verified Allergy, Unknown, 06/12/18) INSULIN ASPART (Verified Allergy, Unknown, 06/12/18) INSULIN DETEMIR (Verified Allergy, Unknown, 06/12/18) OPIOIDS - MORPHINE ANALOGUES (Verified Allergy, Unknown, 06/12/18) Subjective care noted and reviewed on the vent ICU care reviewed Objective Vital Signs Noted Objective GENERAL: A well-developed female,on the vent; sedated HEENT: Negative. NECK: Supple. no JVD LUNGS: With reduced breath sounds bilaterally. minimal rhonchi CARDIAC: S1 and S2. Slightly distant systolic murmur noted. No rubs or gallops. ABDOMEN: Soft, nontender. Mild subcutaneous edema. EXTREMITIES: No edema. Prior amputations noted. NEUROLOGIC: Grossly nonfocal. reviewed and edited Microbiology Date/Time Source Procedure Growth Status 08/02/18 02:30 Stool Clostridium difficile Toxin Assay - Final Complete Laboratory Tests 08/03/18 06:05: White Blood Count 6.1, Red Blood Count 2.86L, Hemoglobin 7.8L, Hematocrit 26.0L , Mean Corpuscular Volume 91, Mean Corpuscular Hemoglobin 27.4, Mean Corpuscular Hemoglobin Concent 30.1L, Red Cell Distribution Width 16.6H, Platelet Count 129L, Mean Platelet Volume 9.6, Neutrophils (%) (Auto) , Lymphocytes (%) (Auto) , Monocytes (%) (Auto) , Eosinophils (%) (Auto) , Basophils (%) (Auto) , Differential Total Cells Counted 100, Neutrophils % ( Manual) 69, Lymphocytes % (Manual) 14L, Monocytes % (Manual) 10, Eosinophils % ( Manual) 7H, Basophils % (Manual) 0, Band Neutrophils 0, Platelet Estimate DecreasedL, Platelet Morphology Normal, Hypochromasia 2+, Anisocytosis 1+, Sodium Level 137, Potassium Level 4.4, Chloride Level 103, Carbon Dioxide Level 27, Anion Gap 7, Blood Urea Nitrogen 25H, Creatinine 3.8H, Estimat Glomerular Filtration Rate 14.2, Glucose Level 46L, Calcium Level 8.3L, Phosphorus Level 4.0, Magnesium Level 1.6L, Random Vancomycin Level 18.9 08/03/18 08:30: Arterial Blood pH 7.390, Arterial Blood Partial Pressure CO2 42.3, Arterial Blood Partial Pressure O2 63.3L, Arterial Blood HCO3 25.4, Arterial Blood Oxygen Saturation 91.5L, Arterial Blood Base Excess 0.4, Nicola Test Positive Current Medications Medications (Trade) Dose Ordered Sig/Andre Route PRN Reason Start Time Stop Time Status Last Admin Dose Admin Acetaminophen (Tylenol) 650 mg Q6H PRN ORAL Mild Pain/Temp > 100.5 08/02/18 11:45 08/16/18 23:44 Aspirin (ASA) 81 mg DAILY ORAL 08/02/18 12:30 09/01/18 12:29 08/03/18 09:28 Cefepime HCl 0.5 gm/Dextrose 55 ml @ 110 mls/hr Q24H IVPB 08/02/18 13:00 08/09/18 12:59 08/03/18 14:38 Dextrose 1,000 ml @ 30 mls/hr Q24H IV 08/03/18 13:00 09/02/18 12:59 08/03/18 13:24 Dextrose (Dextrose 50%) 25 ml Q30M PRN IV Hypoglycemia 08/02/18 12:00 08/17/18 11:59 08/02/18 15:34 Dextrose (Dextrose 50%) 50 ml Q30M PRN IV Hypoglycemia 08/02/18 12:00 08/17/18 11:59 08/03/18 11:30 Diphenoxylate HCl/ Atropine (Lomotil) 2.5 mg Q4H PRN ORAL Diarrhea 08/02/18 12:30 08/29/18 12:29 Docusate Sodium (Colace) 100 mg THREE TIMES A DAY ORAL 08/02/18 13:00 08/17/18 08:59 08/03/18 13:24 Epoetin Marcus (Procrit (for ESRD on dialysis)) 9,000 units TUE-TUE-TUE SUBQ 08/02/18 21:00 08/18/18 20:59 08/02/18 21:07 Gabapentin (Neurontin) 100 mg DAILY ORAL 08/02/18 13:00 09/01/18 12:59 08/03/18 09:28 Heparin Sodium (Porcine) (Heparin 5000 units/ml) 5,000 units EVERY 12 HOURS SUBQ 08/02/18 21:00 08/17/18 08:59 08/02/18 21:06 Lorazepam (Ativan 2mg/ml 1ml) 1 mg Q6H PRN IV For Anxiety 08/02/18 20:15 08/09/18 20:14 Pantoprazole (Protonix) 40 mg DAILY IVP 08/03/18 09:00 09/02/18 08:59 08/03/18 09:28 Polyethylene Glycol (Miralax) 17 gm DAILYPRN PRN ORAL Constipation 08/02/18 13:00 08/26/18 12:59 Sennosides (Senokot) 17.2 mg QHS ORAL 08/02/18 21:00 08/17/18 20:59 Vancomycin HCl (Vanco rx to dose) 1 ea DAILY PRN MISC Per rx protocol 08/02/18 09:00 09/01/18 08:59 Vitamin B Complex/ Vit C/Folic Acid (Nephrovite) 1 tab DAILY ORAL 08/02/18 13:00 09/01/18 12:59 08/03/18 09:28 Critical Care - Objective Last 24 Hour Vital Signs Date Time Temp Pulse Resp B/P (MAP) Pulse Ox O2 Delivery O2 Flow Rate FiO2 08/06/18 18:00 65 23 109/88 (95) 100 08/06/18 17:00 64 16 109/48 (68) 100 08/06/18 16:30 71 22 40 08/06/18 16:00 67 08/06/18 16:00 97.7 70 15 126/55 (78) 100 08/06/18 16:00 40 08/06/18 16:00 Mechanical Ventilator Mechanical Ventilator Mechanical Ventilator Mechanical Ventilator 08/06/18 15:27 64 14 40 08/06/18 15:00 67 14 120/59 (79) 100 08/06/18 14:00 67 15 121/63 (82) 100 08/06/18 13:04 68 15 40 08/06/18 13:00 67 15 126/69 (88) 100 08/06/18 12:00 Mechanical Ventilator Mechanical Ventilator Mechanical Ventilator Mechanical Ventilator 08/06/18 12:00 70 08/06/18 12:00 97.7 70 15 126/55 (78) 100 08/06/18 12:00 40 08/06/18 11:00 69 14 119/61 (80) 100 08/06/18 10:32 65 14 40 08/06/18 10:00 68 18 113/59 (77) 100 08/06/18 09:24 69 15 122/56 (78) 100 08/06/18 09:19 70 21 40 08/06/18 09:00 69 15 122/56 (78) 100 08/06/18 08:19 40 08/06/18 08:01 98.1 71 16 127/67 (87) 100 08/06/18 08:00 67 08/06/18 08:00 71 16 127/67 (87) 100 08/06/18 08:00 40 08/06/18 08:00 Mechanical Ventilator Mechanical Ventilator Mechanical Ventilator Mechanical Ventilator 08/06/18 07:25 73 21 50 08/06/18 07:00 75 14 119/57 (77) 100 08/06/18 06:00 67 14 110/82 (91) 100 08/06/18 05:27 67 16 50 08/06/18 05:00 65 16 121/49 (73) 100 08/06/18 04:00 97.5 63 14 113/49 (70) 100 08/06/18 04:00 Mechanical Ventilator Mechanical Ventilator Mechanical Ventilator Mechanical Ventilator 08/06/18 04:00 50 08/06/18 03:38 65 08/06/18 03:00 62 14 111/46 (67) 100 08/06/18 02:34 68 17 50 08/06/18 02:00 63 17 101/43 (62) 100 08/06/18 01:35 64 19 50 08/06/18 01:00 64 20 109/46 (67) 100 08/06/18 00:00 50 08/06/18 00:00 Mechanical Ventilator Mechanical Ventilator Mechanical Ventilator Mechanical Ventilator 08/06/18 00:00 97.7 62 16 104/46 (65) 100 08/05/18 23:34 63 08/05/18 23:27 64 18 50 08/05/18 23:00 64 16 105/45 (65) 100 08/05/18 22:00 65 16 108/46 (66) 100 08/05/18 21:21 65 21 50 08/05/18 21:00 65 16 101/45 (63) 100 08/05/18 20:00 98.5 67 16 103/47 (65) 100 08/05/18 20:00 Mechanical Ventilator Mechanical Ventilator Mechanical Ventilator Mechanical Ventilator 08/05/18 20:00 50 08/05/18 19:26 67 08/05/18 18:55 67 16 115/55 (75) 100 08/05/18 18:45 66 18 50 Accucheck: 75 Critical Care - Subjective ROS Limited/Unobtainable: No FI02: 40 Vent Support Breath Rate: 14 Vent Support Mode: AC Vent Tidal Volume: 500 Sputum Amount: Moderate PEEP: 5.0 PIP: 15 I&O: Intake and Output 08/05/18 08/06/18 19:00 07:00 Intake Total 385 ml 360 ml Output Total 0 ml 0 ml Balance 385 ml 360 ml Intake Oral 0 ml 0 ml IV Total 385 ml 360 ml Output Urine Total 0 ml 0 ml Drainage Total 0 ml # Bowel Movements 5 ET-Tube: 7.0 ET Position: 22 Joaquin Mackenzie MD Aug 06, 2018 18:42
--- NOTE | 2018-08-06 19:24 | NUR ---
NURSE NOTES: CALLED [facility] REGARDING DIALYSIS TOMORROW THAT REILLY VILLEDA WAS AWARE.
--- NOTE | 2018-08-06 19:33 | NUR ---
NURSE NOTES: HAND-OFF: Report given to Cheo Ferguson RN..
--- NOTE | 2018-08-06 19:45 | NUR ---
NURSE NOTES: PATIENT OPEN EYES, RIGHT EYE OPACITY, BOTH LEGALLY BLIND STATUS, ON ETT TO VENT AC 14/TV500/FIO2 40%/PEEP5, TOLERATED AND O2 SATURATION 100%, NO OGT AND NPO STATUS, ABDOMEN SOFT, ROUND, NON TENDER STATUS, HYPOACTIVE BOWEL SOUND TO 4 QUADRANTS, NO BOWEL MOVEMENT AND ANURIC STATUS, RIGHT BKA, A-V SHUNT TO RIGHT UPPER ARM, PALPABLE THRILL, BRUIT, KEPT RIGHT ARM PRECAUTION, RIGHT BKA, LEFT HEEL WOUND VAC WITHOUT DRAINAGE STATUS, ELEVATED LEFT HEEL, PERIPHERAL LINE TO RIGHT HAND 20G, INTACT AND PATENT ONGOING D10%W AT 30ML/HR VIA PERIPHERAL LINE, 2 POINT SOFT RESTRAINTS FOR SAFETY, ON P200 BED, MADE LOWER BED POSITION, PROVIDED CALL LIGHT WITHIN REACH, WILL CONTINUE TO MONITOR.
[2018-08-06] MEDS: Sennosides 8.6mg tab ORAL SCH (20:32)
--- NOTE | 2018-08-06 22:00 | NUR ---
NURSE NOTES: RELEASED RESTRAINTS, NO ISSUES NOTED, REAPPLIED FOR SAFETY, WILL CONTINUE TO MONITOR.
[2018-08-07] VITALS (24 sets, daily range): BP systolic 92–138; BP diastolic 47–81
--- NOTE | 2018-08-07 | NUR ---
NURSE NOTES: REPOSITIONED, ORAL CARE WAS DONE, NO PAIN OR DISTRESS NOTED AT THIS TIME, WILL CONTINUE TO MONITOR.
--- NOTE | 2018-08-07 01:26 | NUR ---
NURSE NOTES: PATIENT ASLEEP STATUS.
--- NOTE | 2018-08-07 03:24 | NUR ---
NURSE NOTES: NO SOB OR DISTRESS NOTED AT THIS TIME, WILL CONTINUE PLAN OF CARE.
--- NOTE | 2018-08-07 05:20 | NUR ---
NURSE NOTES: MORNING CARE AND ORAL CARE WAS DONE.
--- NOTE | 2018-08-07 06:43 | NUR ---
RESPIRATORY NOTE: Patient received mechanically ventilated on PB840 with current ordered vent settings: AC 14-500ml-40%FiO2- peep of 5. Patient is orally intubated with a 7.0 @ 22.5cm lips line and is secured by anchor fast. Patient presents with bilateral coarse/ rhonchi breath sounds upon auscultation. There is an ambu bag available at the beside, the vent is connected to a red outlet and Vent alarms are set and audible. Will continue to monitor and suction as needed.
--- NOTE | 2018-08-07 07:12 | NUR ---
HAND-OFF: Report given to MELIDA/CHAPIS.
[2018-08-07 07:13] LABS: BASOPHILS % (AUTO) 0.7 % (0.0-2.0); HEMATOCRIT 26.8 % (37.0-47.0); LYMPHOCYTES % (AUTO) 19.7 % (20.0-45.0); MEAN CORPUSCULAR VOLUME 91 FL (80-99); MONOCYTES % (AUTO) 10.9 % (1.0-10.0); NEUTROPHILS % (AUTO) 60.8 % (45.0-75.0); PLATELET COUNT 154 K/UL (150-450); RED BLOOD COUNT 2.95 M/UL (4.20-5.40); RED CELL DISTRIBUTION WIDTH 17.3 % (11.6-14.8); WHITE BLOOD COUNT 5.3 K/UL (4.8-10.8)
[2018-08-07 07:26] LABS: ANION GAP 7 mmol/L (5-15); BLOOD UREA NITROGEN 22 mg/dL (7-18); CALCIUM 8.8 MG/DL (8.5-10.1); CARBON DIOXIDE 26 MMOL/L (21-32); CHLORIDE 101 MMOL/L (98-107); CREATININE 4.5 MG/DL (0.55-1.30); POTASSIUM 3.7 MMOL/L (3.5-5.1); SODIUM 134 MMOL/L (136-145)
--- NOTE | 2018-08-07 07:52 | NUR ---
NURSE NOTES: Report received from CHAPIS Salmon.Pt awake with no apparent s/s acute distress. Orally intubate with right eye opacity.Vent settings: AC 14, VT 500, FIO2 40% and PEEP of 5.patient on NPO at this time due to risk for aspiration. skin warm and dry to touch and afebrile at this time.AV shunt RADHA with bruit and thrill present.Right BKA with left heel wound Vac, no drainage noted at this time.Left hand 20 gauge running D10%W at 30ML/HR with no signs infiltration noted.HOB elevated to prevent aspiration, mouth care done,bilateral soft wrist restraint with no skin impairment.Kept clean dry and comfortable.Will continue to monitor.
--- NOTE | 2018-08-07 08:01 | Critical Care Progress Note ---
Assessment/Plan Assessment/Plan IMPRESSION: 1. Acute on chronic respiratory failure. 2. Acute hypercapnia, resolved with positive pressure ventilation 3. Hypoxemia. 4. Bilateral pleural effusions. 5. Fluid overload. 6. End-stage renal disease. 7. Severe protein-calorie malnutrition. 8. Anemia. 9. Thrombocytopenia. 10. Mild coagulopathy. 11. acute on chronic encephalopathy PLAN likely needs trach with poor baseline likely has obesity hypoventilation would recommend to proceed and place in subacute will try to wean again monitor acid base sedation- reduce in hopes of wean will follow up nutrition keep negative as per renal and cards medications/laboratory data/nursing notes/ICU care reviewed in detail note reviewed and edited care discussed with RN and RT ICU time spent 38 minutes Critical Care - Subjective Interval Events: weekend events noted on vent acid base much improved comfortable ROS Limited/Unobtainable: Yes Condition: critical EKG Rhythm: Sinus Rhythm I&O: Intake and Output 08/06/18 08/07/18 19:00 07:00 Intake Total 337.5 ml 360 ml Output Total 0 ml 0 ml Balance 337.5 ml 360 ml Intake Oral 0 ml 0 ml IV Total 337.5 ml 360 ml Output Urine Total 0 ml 0 ml # Bowel Movements 1 4 Critical Care - Objective CXR: overall no change bilateral pleural effusions ET-Tube: 7.0 ET Position: 22 Last 24 Hour Vital Signs Date Time Temp Pulse Resp B/P (MAP) Pulse Ox O2 Delivery O2 Flow Rate FiO2 08/07/18 07:00 64 16 121/60 (80) 100 08/07/18 06:43 63 15 40 08/07/18 06:00 63 15 120/60 (80) 100 08/07/18 05:00 98.2 64 17 112/66 (81) 100 08/07/18 04:36 63 14 40 08/07/18 04:00 64 08/07/18 04:00 64 16 119/49 (72) 100 08/07/18 04:00 Mechanical Ventilator Mechanical Ventilator Mechanical Ventilator Mechanical Ventilator 08/07/18 04:00 40 08/07/18 03:20 64 16 40 08/07/18 03:00 63 18 99/64 (76) 100 08/07/18 02:00 63 17 105/66 (79) 100 08/07/18 01:08 69 16 40 08/07/18 01:00 63 15 98/69 (79) 100 08/07/18 00:00 40 08/07/18 00:00 63 08/07/18 00:00 98.2 65 16 117/54 (75) 100 08/07/18 00:00 Mechanical Ventilator Mechanical Ventilator Mechanical Ventilator Mechanical Ventilator 08/06/18 23:00 66 18 87/43 (58) 100 08/06/18 22:00 64 17 87/51 (63) 100 08/06/18 21:28 65 17 40 08/06/18 21:00 66 17 112/60 (77) 100 08/06/18 20:00 Mechanical Ventilator Mechanical Ventilator Mechanical Ventilator Mechanical Ventilator 08/06/18 20:00 67 08/06/18 20:00 97.8 67 16 102/58 (73) 100 08/06/18 20:00 40 08/06/18 19:22 64 15 40 08/06/18 19:00 67 18 97/46 (63) 100 08/06/18 18:00 65 23 109/88 (95) 100 08/06/18 17:00 64 16 109/48 (68) 100 08/06/18 16:30 71 22 40 08/06/18 16:00 67 08/06/18 16:00 97.7 70 15 126/55 (78) 100 08/06/18 16:00 40 08/06/18 16:00 Mechanical Ventilator Mechanical Ventilator Mechanical Ventilator Mechanical Ventilator 08/06/18 15:27 64 14 40 08/06/18 15:00 67 14 120/59 (79) 100 08/06/18 14:00 67 15 121/63 (82) 100 08/06/18 13:04 68 15 40 08/06/18 13:00 67 15 126/69 (88) 100 08/06/18 12:00 Mechanical Ventilator Mechanical Ventilator Mechanical Ventilator Mechanical Ventilator 08/06/18 12:00 70 08/06/18 12:00 97.7 70 15 126/55 (78) 100 08/06/18 12:00 40 08/06/18 11:00 69 14 119/61 (80) 100 08/06/18 10:32 65 14 40 08/06/18 10:00 68 18 113/59 (77) 100 08/06/18 09:24 69 15 122/56 (78) 100 1/13/19 09:19 70 21 40 08/06/18 09:00 69 15 122/56 (78) 100 08/06/18 08:19 40 08/06/18 08:01 98.1 71 16 127/67 (87) 100 Labs: Labs Test 08/04/18 09:45 08/05/18 05:20 08/06/18 04:45 08/06/18 08:10 Arterial Blood pH 7.418 (7.350-7.450) 7.400 (7.350-7.450) Arterial Blood Partial Pressure CO2 41.2 mmHg (35.0-45.0) 39.8 mmHg (35.0-45.0) Arterial Blood Partial Pressure O2 241.5 mmHg (75.0-100.0) 197.0 mmHg (75.0-100.0) Arterial Blood HCO3 26.0 mmol/L (22.0-26.0) 24.1 mmol/L (22.0-26.0) Arterial Blood Oxygen Saturation 99.3 % (95-100) 99.3 % (95-100) Arterial Blood Base Excess 1.4 (-2-2) -6.0 (-2-2) Nicola Test Positive Positive Random Vancomycin Level 23.9 ug/mL White Blood Count 5.2 K/UL (4.8-10.8) Red Blood Count 3.00 M/UL (4.20-5.40) Hemoglobin 8.3 G/DL (12.0-16.0) Hematocrit 27.2 % (37.0-47.0) Mean Corpuscular Volume 91 FL (80-99) Mean Corpuscular Hemoglobin 27.6 PG (27.0-31.0) Mean Corpuscular Hemoglobin Concent 30.4 G/DL (32.0-36.0) Red Cell Distribution Width 17.8 % (11.6-14.8) Platelet Count 160 K/UL (150-450) Mean Platelet Volume 10.4 FL (6.5-10.1) Neutrophils (%) (Auto) 61.9 % (45.0-75.0) Lymphocytes (%) (Auto) 21.1 % (20.0-45.0) Monocytes (%) (Auto) 9.3 % (1.0-10.0) Eosinophils (%) (Auto) 7.2 % (0.0-3.0) Basophils (%) (Auto) 0.5 % (0.0-2.0) Sodium Level 136 MMOL/L (136-145) Potassium Level 3.9 MMOL/L (3.5-5.1) Chloride Level 102 MMOL/L (98-107) Carbon Dioxide Level 27 MMOL/L (21-32) Anion Gap 7 mmol/L (5-15) Blood Urea Nitrogen 21 mg/dL (7-18) Creatinine 4.2 MG/DL (0.55-1.30) Estimat Glomerular Filtration Rate 12.7 mL/min (>60) Glucose Level 70 MG/DL (74-106) Calcium Level 8.8 MG/DL (8.5-10.1) Magnesium Level 2.2 MG/DL (1.8-2.4) Test 08/07/18 05:50 White Blood Count 5.3 K/UL (4.8-10.8) Red Blood Count 2.95 M/UL (4.20-5.40) Hemoglobin 8.0 G/DL (12.0-16.0) Hematocrit 26.8 % (37.0-47.0) Mean Corpuscular Volume 91 FL (80-99) Mean Corpuscular Hemoglobin 27.2 PG (27.0-31.0) Mean Corpuscular Hemoglobin Concent 30.0 G/DL (32.0-36.0) Red Cell Distribution Width 17.3 % (11.6-14.8) Platelet Count 154 K/UL (150-450) Mean Platelet Volume 9.8 FL (6.5-10.1) Neutrophils (%) (Auto) 60.8 % (45.0-75.0) Lymphocytes (%) (Auto) 19.7 % (20.0-45.0) Monocytes (%) (Auto) 10.9 % (1.0-10.0) Eosinophils (%) (Auto) 8.0 % (0.0-3.0) Basophils (%) (Auto) 0.7 % (0.0-2.0) Sodium Level 134 MMOL/L (136-145) Potassium Level 3.7 MMOL/L (3.5-5.1) Chloride Level 101 MMOL/L (98-107) Carbon Dioxide Level 26 MMOL/L (21-32) Anion Gap 7 mmol/L (5-15) Blood Urea Nitrogen 22 mg/dL (7-18) Creatinine 4.5 MG/DL (0.55-1.30) Estimat Glomerular Filtration Rate 11.6 mL/min (>60) Glucose Level 73 MG/DL (74-106) Calcium Level 8.8 MG/DL (8.5-10.1) Objective: WDWN NAD orally intubated reduced breath sounds bilaterally without rhonchi or wheeze [id number] without MRG NABS nontender no HSM; feeding tube no CC some edema withdrawn nonfocal Accucheck: 74 Gustavo Rolon MD Aug 07, 2018 08:01
[2018-08-07] MEDS: Aspirin Baby 81mg ORAL SCH (08:31)
[2018-08-07] MEDS: Nephrovite tab (Rena-Vite) ORAL SCH (08:31)
[2018-08-07] MEDS: Pantoprazole Inj IVP SCH (08:31)
[2018-08-07] MEDS: Docusate 100mg cap ORAL SCH ×3 (08:32→18:00)
[2018-08-07] MEDS: Heparin 5000 units/ml inj SUBQ SCH ×2 (08:34→20:50)
--- NOTE | 2018-08-07 08:44 | NUR ---
RESPIRATORY NOTE: Placed pt on SIMV 10- PS 10- 40% FiO2- peep of 5, pt is tolerating really well. No SOB or acute resp distress noted. Pt understand weaning plan. CHAPIS Villegas made aware. Will continue to monitor pt closely.
--- NOTE | 2018-08-07 08:44 | NUR ---
RESPIRATORY NOTE: Placed pt on SIMV 10- PS 10, 40% FiO2, saturated at 100%, pt is tolerating well, stable, no SOB or resp distress noted. CHAPIS Lopes made aware. Will continue to monitor pt closely.
--- NOTE | 2018-08-07 09:06 | NUR ---
NURSE NOTES: Pt placed on SIMV 10- PS 10, 40% FiO2, saturated at 100%,and tolerate well. Will continue to monitor .
--- NOTE | 2018-08-07 10:15 | NUR ---
NURSE NOTES: Pt started on dialysis.Kept clean dry and comfortable. Wound vac in place with no drainage at this time.Will continue to monitor.
--- NOTE | 2018-08-07 12:10 | NUR ---
NURSE NOTES: Ongoing dialysis and remains on SIMV mode, tolerate well.Will continue to monitor.
--- NOTE | 2018-08-07 12:48 | NUR ---
CASE MANAGEMENT: REVIEW SI: ESRD . HYPOTENSION T 97.8 HR 66 RR 17 BP 98/81 SAT 100% MECH VENT FIO2 40 H/H 8.0/26.8 NA 134 IS: PROCRIT SQ MWF ZOSYN IV Q8HR ASA PO QD LISINOPRIL PO QD COREG PO Q12HR ICU STATUS DCP: PATIENT IS FROM [facility]
[2018-08-07] MEDS: Dextrose 10% 1,000 ML IV SCH ×2 (13:00→18:55)
--- NOTE | 2018-08-07 13:21 | Diagnostic Imaging Report ---
Indication: Intubation Comparison: 08/06/2018 A single view chest radiograph was obtained. Findings: Endotracheal tube is noted in good position 2 cm above the kellen. I lateral pleural effusions are noted. Mild interstitial edema suspected. IMPRESSION: No change
--- NOTE | 2018-08-07 13:49 | NUR ---
NURSE NOTES: Dialysis done and 2.5L out. Remains on SIMV and tolerate well.Will continue to monitor.
--- NOTE | 2018-08-07 13:59 | NUR ---
RD ASSESSMENT & RECOMMENDATIONS SEE CARE ACTIVITY FOR COMPLETE ASSESSMENT DAILY ESTIMATED NEEDS: Needs based on ESRD on HD, Wounds, CRITICAL CARE (Adj Wt 71kg) 22-28 kcals/kg 5047-1589 total kcals 1.25-2 g protein/kg 88-142 g total protein Fluid per MD, on HD NUTRITION DIAGNOSIS: 1) Increased kcal, pro needs R/T wound healing and renal dysfunction as evidenced by pt w/ left heel, sacral and lt ischial wounds, w/ ESRD on HD, currently NPO, s/p oral intubation. 2) Altered nutrition related lab values R/T diabetes, clinical condition as evidenced by pt now w/ hypoglycemic episodes, improved. CURRENT DIET:NPO PO DIET RECOMMENDATIONS: S/P EXTUBATION -> CCHO MED, RENAL/ texture per BUNGY JUMP MASTER + high prot snacks BID ENTERAL NUTRITION RECOMMENDATIONS: Nepro @ 40ml/hr x 24 hrs to provide 960ml, 1728kcal, 77g prot, 698ml free water * As medically appropriate, initiate Nepro @ 10ml/hr x 6 hrs, advance 10ml q 4-6 hrs as tolerated to goal rate. * HOB over 30 degrees/ water flush per MD. ADDITIONAL RECOMMENDATIONS: 1) Rec to initiate TF to help prevent further episodes of hypoglycemia and remains orally intubated (NPO day 5 since intubation) 2) BUNGY JUMP MASTER evaluation post extubation 3) Monitor BGs closely 4) Add Dimitry 1pkt BID for wound healing 6) Obtain dry wt post HD on a calibrated bed scale-> RE-CALIBRATE BED .
--- NOTE | 2018-08-07 14:44 | NUR ---
RESPIRATORY NOTE: Place pt on CPAP -PS 10- pee 5- 40% FiO2, pt is tolerating well, no SOB or acute resp distress noted. CHAPIS Villegas made aware. Will continue to monitor pt closely.
--- NOTE | 2018-08-07 14:45 | NUR ---
NURSE NOTES: Pt wound dressing left heel changed and picture taken.Kept clean, dry and comfortable.Will continue to monitor. Addendum: 08/07/18 at 1527 by Nelly Mane RN Pt placed on CPAP at 40% with PS 10, PEEP 5, will continue to monitor.Tolerate well at this time.
--- NOTE | 2018-08-07 16:12 | NUR ---
NURSE NOTES: ADls done,kept clean and dry. Will continue to monitor
--- NOTE | 2018-08-07 16:20 | NUR ---
NURSE NOTES:WOUND CARE FOLLOW-UP NOTES:NPWT changed today.L heel wound resolving(L)2.8cm x (W)2.7cm.Wound base moist -granular. Edges adherent to base of wound Small amt sanguineus exudate noted.Periwound intact. L heel wound cleansed with Saline.Cavilon Skin Barrier wipe applied along borders and periwound .Transparent drape aplpied periwound to protect skin and bridged to distal sylvester L tibia. Granulofoam packing then cut to conform to shape and size of wound then foam bridged away from wound,but over transparent drape to distal sylvester L tibia. Quarter size opening made at end of foam bridge and Wound vac applied.NPWt resumed at 125mm/Hg to continuous suction. Abd pad placed between wound vac tubing and skin to prevent presure to skin and wraqpped with kerlix. Non-blanchable erythema noted to L lateral malleolus. Cavilon Skin Barrier wipe applied to affected area and covered with Optifoam drsg.
--- NOTE | 2018-08-07 16:40 | Nephrology Progress Note ---
Assessment/Plan Plan VDRF. B pleural Effusion. 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 On IV Abx per ID. HD MWF. Increase UF on HD. Try to wean off vent. Maintain euglycemia with IV D5 0.45 NS. Trying to wean off vent. DW Dr. Rolon. Subjective Subjective Intubated, On vent. In ICU. Objective Objective Last 24 Hour Vital Signs Date Time Temp Pulse Resp B/P (MAP) Pulse Ox O2 Delivery O2 Flow Rate FiO2 08/07/18 16:00 74 16 132/74 (93) 100 08/07/18 16:00 Mechanical Ventilator Mechanical Ventilator Mechanical Ventilator Mechanical Ventilator 08/07/18 16:00 40 08/07/18 15:00 71 16 138/76 (96) 100 08/07/18 14:44 69 23 40 08/07/18 14:00 69 16 134/62 (86) 100 08/07/18 13:00 68 16 114/52 (72) 100 08/07/18 12:30 67 16 40 08/07/18 12:00 97.8 66 17 106/76 (86) 100 08/07/18 12:00 Mechanical Ventilator Mechanical Ventilator Mechanical Ventilator Mechanical Ventilator 08/07/18 12:00 60 08/07/18 12:00 40 08/07/18 11:00 64 16 98/81 (87) 100 08/07/18 10:32 64 18 40 08/07/18 10:00 63 16 116/52 (73) 100 08/07/18 09:00 64 15 110/47 (68) 100 08/07/18 08:44 63 18 40 08/07/18 08:43 100 08/07/18 08:00 72 16 115/54 (74) 100 08/07/18 08:00 40 08/07/18 08:00 64 08/07/18 08:00 Mechanical Ventilator Mechanical Ventilator Mechanical Ventilator Mechanical Ventilator 08/07/18 07:00 64 16 121/60 (80) 100 08/07/18 06:43 63 15 40 08/07/18 06:00 63 15 120/60 (80) 100 08/07/18 05:00 98.2 64 17 112/66 (81) 100 08/07/18 04:36 63 14 40 08/07/18 04:00 64 08/07/18 04:00 64 16 119/49 (72) 100 08/07/18 04:00 Mechanical Ventilator Mechanical Ventilator Mechanical Ventilator Mechanical Ventilator 08/07/18 04:00 40 08/07/18 03:20 64 16 40 08/07/18 03:00 63 18 99/64 (76) 100 08/07/18 02:00 63 17 105/66 (79) 100 08/07/18 01:08 69 16 40 08/07/18 01:00 63 15 98/69 (79) 100 08/07/18 00:00 40 08/07/18 00:00 63 08/07/18 00:00 98.2 65 16 117/54 (75) 100 08/07/18 00:00 Mechanical Ventilator Mechanical Ventilator Mechanical Ventilator Mechanical Ventilator 08/06/18 23:00 66 18 87/43 (58) 100 08/06/18 22:00 64 17 87/51 (63) 100 08/06/18 21:28 65 17 40 08/06/18 21:00 66 17 112/60 (77) 100 08/06/18 20:00 Mechanical Ventilator Mechanical Ventilator Mechanical Ventilator Mechanical Ventilator 08/06/18 20:00 67 08/06/18 20:00 97.8 67 16 102/58 (73) 100 08/06/18 20:00 40 08/06/18 19:22 64 15 40 08/06/18 19:00 67 18 97/46 (63) 100 08/06/18 18:00 65 23 109/88 (95) 100 08/06/18 17:00 64 16 109/48 (68) 100 Intake and Output 08/06/18 08/07/18 19:00 07:00 Intake Total 337.5 ml 360 ml Output Total 0 ml 0 ml Balance 337.5 ml 360 ml Intake Oral 0 ml 0 ml IV Total 337.5 ml 360 ml Output Urine Total 0 ml 0 ml # Bowel Movements 1 4 Laboratory Tests 08/07/18 05:50: White Blood Count 5.3, Red Blood Count 2.95L, Hemoglobin 8.0L, Hematocrit 26.8L , Mean Corpuscular Volume 91, Mean Corpuscular Hemoglobin 27.2, Mean Corpuscular Hemoglobin Concent 30.0L, Red Cell Distribution Width 17.3H, Platelet Count 154, Mean Platelet Volume 9.8, Neutrophils (%) (Auto) 60.8, Lymphocytes (%) (Auto) 19.7L, Monocytes (%) (Auto) 10.9H, Eosinophils (%) (Auto ) 8.0H, Basophils (%) (Auto) 0.7, Sodium Level 134L, Potassium Level 3.7, Chloride Level 101, Carbon Dioxide Level 26, Anion Gap 7, Blood Urea Nitrogen 22H, Creatinine 4.5H, Estimat Glomerular Filtration Rate 11.6, Glucose Level 73L , Calcium Level 8.8 Height (Feet): 5 Height (Inches): 7.00 Weight (Pounds): 218 Objective Intubated, On vent. Blind CV RR Lungs CTA Abd SNT. BS + E No CCE Neuro:Alert, nonfocal. Brenda Fuller MD Aug 07, 2018 16:40
--- NOTE | 2018-08-07 18:10 | NUR ---
NURSE NOTES: Pt cleaned, mouth care done,suctioned pt and tolerated well.Kept clean and dry
--- NOTE | 2018-08-07 19:44 | NUR ---
HAND-OFF: Report given to CHAPIS Norman.Per Dr Ольга matamoros pt on SIMV 05/03. Endorsed to next nurse. Addendum: 08/07/18 at 1949 by Nelly Mane RN left message to Dr Diggs for MDR sputum.
--- NOTE | 2018-08-07 19:45 | NUR ---
NURSE NOTES: Endorsement received from CHAPIS Villegas. Patient opens eyes spontaneouslly, legally blind bilateral. Follows simple commands, Orally intubated with ET 7.0 22.5 lipline. On SIMV 10. With left hand g20 patent and intact with good backflow. Ongoing D10W at 30ml/hr. With wound vacc at left foot, dressing dry and intact. Suction set at 125mmHg as per order, no drainage. With right s/p BKA, stump kept elevated. On P200 mattress. Head of bed elevated. Call light within reach. Bed locked, low position with bed alarm on.
[2018-08-07] MEDS: Epogen (for ESRD on dialysis) SUBQ SCH (20:49)
[2018-08-07] MEDS: Sennosides 8.6mg tab ORAL SCH (20:52)
--- NOTE | 2018-08-07 22:00 | NUR ---
NURSE NOTES: Patient asleep. No signs of pain or discomfort.
[2018-08-07] MEDS: Colistin for inhalation INH SCH (22:41)
--- NOTE | 2018-08-07 23:15 | Cardiology Progress Note ---
Assessment/Plan Assessment/Plan unfortunately, there is little more what could be done for this patient from cardiac standpoint Subjective Subjective remains intubated, opens her eyes and becomes agitated with verbal stimuli, probably seeing something, because she moves her arms in the air. Objective Last 24 Hour Vital Signs Date Time Temp Pulse Resp B/P (MAP) Pulse Ox O2 Delivery O2 Flow Rate FiO2 08/07/18 22:39 65 17 100 Mechanical Ventilator 40 08/07/18 22:37 65 17 40 08/07/18 20:42 63 14 40 08/07/18 20:00 40 08/07/18 20:00 Mechanical Ventilator Mechanical Ventilator Mechanical Ventilator Mechanical Ventilator 08/07/18 19:13 73 20 40 08/07/18 19:00 69 17 111/64 (80) 100 08/07/18 18:00 71 17 92/58 (69) 100 08/07/18 17:00 97.6 75 19 123/58 (79) 100 08/07/18 16:40 78 17 40 08/07/18 16:00 74 16 132/74 (93) 100 08/07/18 16:00 Mechanical Ventilator Mechanical Ventilator Mechanical Ventilator Mechanical Ventilator 08/07/18 16:00 75 08/07/18 16:00 40 08/07/18 15:00 71 16 138/76 (96) 100 08/07/18 14:44 69 23 40 08/07/18 14:00 69 16 134/62 (86) 100 08/07/18 13:00 68 16 114/52 (72) 100 08/07/18 12:30 67 16 40 08/07/18 12:00 97.8 66 17 106/76 (86) 100 08/07/18 12:00 Mechanical Ventilator Mechanical Ventilator Mechanical Ventilator Mechanical Ventilator 08/07/18 12:00 60 08/07/18 12:00 40 08/07/18 11:00 64 16 98/81 (87) 100 08/07/18 10:32 64 18 40 08/07/18 10:00 63 16 116/52 (73) 100 08/07/18 09:00 64 15 110/47 (68) 100 08/07/18 08:44 63 18 40 08/07/18 08:43 100 08/07/18 08:00 72 16 115/54 (74) 100 08/07/18 08:00 40 08/07/18 08:00 64 08/07/18 08:00 Mechanical Ventilator Mechanical Ventilator Mechanical Ventilator Mechanical Ventilator 08/07/18 07:00 64 16 121/60 (80) 100 08/07/18 06:43 63 15 40 08/07/18 06:00 63 15 120/60 (80) 100 08/07/18 05:00 98.2 64 17 112/66 (81) 100 08/07/18 04:36 63 14 40 08/07/18 04:00 64 08/07/18 04:00 64 16 119/49 (72) 100 08/07/18 04:00 Mechanical Ventilator Mechanical Ventilator Mechanical Ventilator Mechanical Ventilator 08/07/18 04:00 40 08/07/18 03:20 64 16 40 08/07/18 03:00 63 18 99/64 (76) 100 08/07/18 02:00 63 17 105/66 (79) 100 08/07/18 01:08 69 16 40 08/07/18 01:00 63 15 98/69 (79) 100 08/07/18 00:00 40 08/07/18 00:00 63 08/07/18 00:00 98.2 65 16 117/54 (75) 100 08/07/18 00:00 Mechanical Ventilator Mechanical Ventilator Mechanical Ventilator Mechanical Ventilator General Appearance: on vent EENT: other Neck: JVD Rhythm: NSR Cardiovascular: normal rate, systolic murmur Respiratory/Chest: other - intubated Abdomen: non tender, distended Extremities: other - severe periferal edema Intake and Output 08/06/18 08/07/18 19:00 07:00 Intake Total 337.5 ml 360 ml Output Total 0 ml 0 ml Balance 337.5 ml 360 ml Intake Oral 0 ml 0 ml IV Total 337.5 ml 360 ml Output Urine Total 0 ml 0 ml # Bowel Movements 1 4 Laboratory Tests Test 08/07/18 05:50 08/07/18 16:30 White Blood Count 5.3 K/UL (4.8-10.8) Red Blood Count 2.95 M/UL (4.20-5.40) L Hemoglobin 8.0 G/DL (12.0-16.0) L Hematocrit 26.8 % (37.0-47.0) L Mean Corpuscular Volume 91 FL (80-99) Mean Corpuscular Hemoglobin 27.2 PG (27.0-31.0) Mean Corpuscular Hemoglobin Concent 30.0 G/DL (32.0-36.0) L Red Cell Distribution Width 17.3 % (11.6-14.8) H Platelet Count 154 K/UL (150-450) Mean Platelet Volume 9.8 FL (6.5-10.1) Neutrophils (%) (Auto) 60.8 % (45.0-75.0) Lymphocytes (%) (Auto) 19.7 % (20.0-45.0) L Monocytes (%) (Auto) 10.9 % (1.0-10.0) H Eosinophils (%) (Auto) 8.0 % (0.0-3.0) H Basophils (%) (Auto) 0.7 % (0.0-2.0) Sodium Level 134 MMOL/L (136-145) L Potassium Level 3.7 MMOL/L (3.5-5.1) Chloride Level 101 MMOL/L (98-107) Carbon Dioxide Level 26 MMOL/L (21-32) Anion Gap 7 mmol/L (5-15) Blood Urea Nitrogen 22 mg/dL (7-18) H Creatinine 4.5 MG/DL (0.55-1.30) H Estimat Glomerular Filtration Rate 11.6 mL/min (>60) Glucose Level 73 MG/DL (74-106) L Calcium Level 8.8 MG/DL (8.5-10.1) Arterial Blood pH 7.367 (7.350-7.450) Arterial Blood Partial Pressure CO2 53.5 mmHg (35.0-45.0) H Arterial Blood Partial Pressure O2 52.3 mmHg (75.0-100.0) L Arterial Blood HCO3 30.0 mmol/L (22.0-26.0) H Arterial Blood Oxygen Saturation 84.0 % (95-100) *L Arterial Blood Base Excess 4 (-2-2) H Nicola Test Positive Clarisse Daley MD Aug 07, 2018 23:15
[2018-08-08] VITALS (24 sets, daily range): BP systolic 100–133; BP diastolic 55–82
--- NOTE | 2018-08-08 | NUR ---
NURSE NOTES: Patient passed moderate soft greenish stool. Perineal care done.
--- NOTE | 2018-08-08 02:00 | NUR ---
NURSE NOTES: Patient asleep. No shortness of breath, on continuous SIMV mode.
--- NOTE | 2018-08-08 04:00 | NUR ---
NURSE NOTES: Bed bath, oral care, change of linens done.
--- NOTE | 2018-08-08 05:24 | NUR ---
NURSE NOTES: Patient asleep. VSS
--- NOTE | 2018-08-08 07:10 | NUR ---
HAND-OFF: Report given to CHAPIS Jay
--- NOTE | 2018-08-08 07:20 | NUR ---
NURSE NOTES: Report received from Ester NATION. Pt sleepy but arousable. Pt alert x 2-3. Pt connected to manager cardiac cath, SR. Pt orally intubated ETT 7, 22 cm, on SIMV 10/10 throughout the night. WV noted and intact on left foot. ALEJANDRA shunt noted. LH 20G noted and intact. Safety measures in place with bed locked and in lowest position, side rails x3 up and bed alarm activated. Will continue to monitor and continue plan of care.
--- NOTE | 2018-08-08 07:45 | Critical Care Progress Note ---
Assessment/Plan Assessment/Plan IMPRESSION: 1. Acute on chronic respiratory failure. 2. Acute hypercapnia, resolved with positive pressure ventilation 3. Hypoxemia. 4. Bilateral pleural effusions. 5. Fluid overload. 6. End-stage renal disease. 7. Severe protein-calorie malnutrition. 8. Anemia. 9. Thrombocytopenia. 10. Mild coagulopathy. 11. acute on chronic encephalopathy PLAN likely needs trach with poor baseline likely has obesity hypoventilation would recommend to proceed and place in subacute will try to wean again today monitor acid base sedation- reduce in hopes of wean will follow up nutrition keep negative as per renal and cards medications/laboratory data/nursing notes/ICU care reviewed in detail note reviewed and edited care discussed with RN and RT ICU time spent 40 minutes Critical Care - Subjective Interval Events: try to wean put back to AC ROS Limited/Unobtainable: Yes Condition: critical EKG Rhythm: Sinus Rhythm Residuals: minimal Tube Feeding Tolerated: yes I&O: Intake and Output 08/07/18 08/08/18 19:00 07:00 Intake Total 2860 ml 330 ml Output Total 0 ml 0 ml Balance 2860 ml 330 ml IV Total 360 ml 330 ml Hemodialysis 2500 ml Output Urine Total 0 ml 0 ml # Bowel Movements 2 2 Critical Care - Objective ET-Tube: 7.0 ET Position: 22 Last 24 Hour Vital Signs Date Time Temp Pulse Resp B/P (MAP) Pulse Ox O2 Delivery O2 Flow Rate FiO2 08/08/18 07:35 64 14 40 08/08/18 07:00 83 18 130/69 (89) 99 08/08/18 06:00 65 18 130/69 (89) 99 08/08/18 05:00 40 08/08/18 05:00 65 18 118/59 (78) 100 08/08/18 04:53 67 17 40 08/08/18 04:00 97.7 67 19 116/65 (82) 100 08/08/18 04:00 Mechanical Ventilator 08/08/18 04:00 66 08/08/18 03:00 63 15 122/59 (80) 100 08/08/18 02:33 63 12 40 08/08/18 02:00 67 15 120/68 (85) 100 08/08/18 01:00 66 16 118/59 (78) 100 08/08/18 01:00 61 11 40 08/08/18 00:00 97.5 65 16 114/60 (78) 100 08/08/18 00:00 Mechanical Ventilator 08/08/18 00:00 40 08/08/18 00:00 64 08/07/18 23:00 65 14 120/71 (87) 100 08/07/18 22:39 65 17 100 Mechanical Ventilator 40 08/07/18 22:37 65 17 40 08/07/18 22:00 64 14 120/61 (80) 100 08/07/18 21:00 66 18 134/68 (90) 100 08/07/18 20:42 63 14 40 08/07/18 20:00 40 08/07/18 20:00 65 08/07/18 20:00 97.8 67 15 123/70 (87) 100 08/07/18 20:00 Mechanical Ventilator Mechanical Ventilator Mechanical Ventilator Mechanical Ventilator 08/07/18 19:13 73 20 40 08/07/18 19:00 69 17 111/64 (80) 100 08/07/18 18:00 71 17 92/58 (69) 100 08/07/18 17:00 97.6 75 19 123/58 (79) 100 08/07/18 16:40 78 17 40 08/07/18 16:00 74 16 132/74 (93) 100 08/07/18 16:00 Mechanical Ventilator Mechanical Ventilator Mechanical Ventilator Mechanical Ventilator 08/07/18 16:00 75 08/07/18 16:00 40 08/07/18 15:00 71 16 138/76 (96) 100 08/07/18 14:44 69 23 40 08/07/18 14:00 69 16 134/62 (86) 100 08/07/18 13:00 68 16 114/52 (72) 100 08/07/18 12:30 67 16 40 08/07/18 12:00 97.8 66 17 106/76 (86) 100 08/07/18 12:00 Mechanical Ventilator Mechanical Ventilator Mechanical Ventilator Mechanical Ventilator 08/07/18 12:00 60 08/07/18 12:00 40 08/07/18 11:00 64 16 98/81 (87) 100 08/07/18 10:32 64 18 40 08/07/18 10:00 63 16 116/52 (73) 100 08/07/18 09:00 64 15 110/47 (68) 100 08/07/18 08:44 63 18 40 1/14/19 08:43 100 08/07/18 08:00 72 16 115/54 (74) 100 08/07/18 08:00 40 08/07/18 08:00 64 08/07/18 08:00 Mechanical Ventilator Mechanical Ventilator Mechanical Ventilator Mechanical Ventilator Labs: Labs Test 08/06/18 04:45 08/06/18 08:10 08/07/18 05:50 08/07/18 16:30 White Blood Count 5.2 K/UL (4.8-10.8) 5.3 K/UL (4.8-10.8) Red Blood Count 3.00 M/UL (4.20-5.40) 2.95 M/UL (4.20-5.40) Hemoglobin 8.3 G/DL (12.0-16.0) 8.0 G/DL (12.0-16.0) Hematocrit 27.2 % (37.0-47.0) 26.8 % (37.0-47.0) Mean Corpuscular Volume 91 FL (80-99) 91 FL (80-99) Mean Corpuscular Hemoglobin 27.6 PG (27.0-31.0) 27.2 PG (27.0-31.0) Mean Corpuscular Hemoglobin Concent 30.4 G/DL (32.0-36.0) 30.0 G/DL (32.0-36.0) Red Cell Distribution Width 17.8 % (11.6-14.8) 17.3 % (11.6-14.8) Platelet Count 160 K/UL (150-450) 154 K/UL (150-450) Mean Platelet Volume 10.4 FL (6.5-10.1) 9.8 FL (6.5-10.1) Neutrophils (%) (Auto) 61.9 % (45.0-75.0) 60.8 % (45.0-75.0) Lymphocytes (%) (Auto) 21.1 % (20.0-45.0) 19.7 % (20.0-45.0) Monocytes (%) (Auto) 9.3 % (1.0-10.0) 10.9 % (1.0-10.0) Eosinophils (%) (Auto) 7.2 % (0.0-3.0) 8.0 % (0.0-3.0) Basophils (%) (Auto) 0.5 % (0.0-2.0) 0.7 % (0.0-2.0) Sodium Level 136 MMOL/L (136-145) 134 MMOL/L (136-145) Potassium Level 3.9 MMOL/L (3.5-5.1) 3.7 MMOL/L (3.5-5.1) Chloride Level 102 MMOL/L (98-107) 101 MMOL/L (98-107) Carbon Dioxide Level 27 MMOL/L (21-32) 26 MMOL/L (21-32) Anion Gap 7 mmol/L (5-15) 7 mmol/L (5-15) Blood Urea Nitrogen 21 mg/dL (7-18) 22 mg/dL (7-18) Creatinine 4.2 MG/DL (0.55-1.30) 4.5 MG/DL (0.55-1.30) Estimat Glomerular Filtration Rate 12.7 mL/min (>60) 11.6 mL/min (>60) Glucose Level 70 MG/DL (74-106) 73 MG/DL (74-106) Calcium Level 8.8 MG/DL (8.5-10.1) 8.8 MG/DL (8.5-10.1) Magnesium Level 2.2 MG/DL (1.8-2.4) Arterial Blood pH 7.400 (7.350-7.450) 7.367 (7.350-7.450) Arterial Blood Partial Pressure CO2 39.8 mmHg (35.0-45.0) 53.5 mmHg (35.0-45.0) Arterial Blood Partial Pressure O2 197.0 mmHg (75.0-100.0) 52.3 mmHg (75.0-100.0) Arterial Blood HCO3 24.1 mmol/L (22.0-26.0) 30.0 mmol/L (22.0-26.0) Arterial Blood Oxygen Saturation 99.3 % (95-100) 84.0 % (95-100) Arterial Blood Base Excess -6.0 (-2-2) 4 (-2-2) Nicola Test Positive Positive Objective: WDWN NAD orally intubated reduced breath sounds bilaterally without rhonchi or wheeze [id number] without MRG NABS nontender no HSM; feeding tube no CC edema nonfocal skin exam Accucheck: 75 Gustavo Rolon MD Aug 08, 2018 07:45
--- NOTE | 2018-08-08 08:30 | NUR ---
NURSE NOTES: Dr Rolon here to see pt. wants to trial pt on cpap. The plan is to extuabate pt soon. Will continue to monitor.
[2018-08-08] MEDS: Aspirin Baby 81mg ORAL SCH (08:33)
[2018-08-08] MEDS: Docusate 100mg cap ORAL SCH ×3 (08:33→17:11)
[2018-08-08] MEDS: Nephrovite tab (Rena-Vite) ORAL SCH (08:34)
[2018-08-08] MEDS: Pantoprazole Inj IVP SCH (08:40)
[2018-08-08] MEDS: Heparin 5000 units/ml inj SUBQ SCH ×2 (08:41→21:33)
--- NOTE | 2018-08-08 08:49 | NUR ---
RADIOLOGY DEPT CHEST X-RAY DONE.-P.DYE
[2018-08-08] MEDS: Colistin for inhalation INH SCH ×2 (09:14→22:47)
--- NOTE | 2018-08-08 10:24 | Diagnostic Imaging Report ---
Indication:pleural effusion Technique: Grayscale and duplex Doppler imaging of the chest performed. Comparison: None Findings: Bilateral pleural effusions are present. Pleural effusion on the right is moderate and on the left is small. IMPRESSION: Bilateral pleural effusion
--- NOTE | 2018-08-08 11:08 | Infectious Diseases Prog Note ---
"Assessment/Plan Assessment/Plan antibiotics ; inhaled colistin 1.13.19 - A 1. enterococcus | streptococcus UTI 2. acenitobacter pneumonia 3. diabetes mellitus 4. hypertension 5. renal failure on hemodialysis 6. history of left foot osteomyelitis 7. respiratory failure P 1. continue inhaled colistin 7 more days 2. will follow up cultures Subjective ROS Limited/Unobtainable: Yes Allergies: Coded Allergies: BENAZEPRIL (Verified Allergy, Unknown, 06/12/18) CODEINE (Verified Allergy, Unknown, 06/12/18) INSULIN ASPART (Verified Allergy, Unknown, 06/12/18) INSULIN DETEMIR (Verified Allergy, Unknown, 06/12/18) OPIOIDS - MORPHINE ANALOGUES (Verified Allergy, Unknown, 06/12/18) Objective Vital Signs Last 24 Hour Vital Signs Date Time Temp Pulse Resp B/P (MAP) Pulse Ox O2 Delivery O2 Flow Rate FiO2 08/08/18 11:00 67 14 116/58 (77) 100 08/08/18 10:00 66 18 106/55 (72) 100 08/08/18 09:18 67 15 100 Mechanical Ventilator 60.0 40 08/08/18 09:02 65 16 40 08/08/18 09:02 100 08/08/18 09:02 65 17 100 Mechanical Ventilator 40 08/08/18 09:00 66 13 121/79 (93) 100 08/08/18 08:00 97.0 68 19 125/63 (83) 100 08/08/18 08:00 40 08/08/18 08:00 Mechanical Ventilator 08/08/18 08:00 67 08/08/18 07:35 64 14 40 08/08/18 07:00 83 18 130/69 (89) 99 08/08/18 06:00 65 18 130/69 (89) 99 08/08/18 05:00 40 08/08/18 05:00 65 18 118/59 (78) 100 08/08/18 04:53 67 17 40 08/08/18 04:00 97.7 67 19 116/65 (82) 100 08/08/18 04:00 Mechanical Ventilator 08/08/18 04:00 66 08/08/18 03:00 63 15 122/59 (80) 100 08/08/18 02:33 63 12 40 08/08/18 02:00 67 15 120/68 (85) 100 08/08/18 01:00 66 16 118/59 (78) 100 08/08/18 01:00 61 11 40 08/08/18 00:00 97.5 65 16 114/60 (78) 100 08/08/18 00:00 Mechanical Ventilator 08/08/18 00:00 40 08/08/18 00:00 64 08/07/18 23:00 65 14 120/71 (87) 100 08/07/18 22:39 65 17 100 Mechanical Ventilator 40 08/07/18 22:37 65 17 40 08/07/18 22:00 64 14 120/61 (80) 100 08/07/18 21:00 66 18 134/68 (90) 100 08/07/18 20:42 63 14 40 08/07/18 20:00 40 08/07/18 20:00 65 08/07/18 20:00 97.8 67 15 123/70 (87) 100 08/07/18 20:00 Mechanical Ventilator Mechanical Ventilator Mechanical Ventilator Mechanical Ventilator 08/07/18 19:13 73 20 40 08/07/18 19:00 69 17 111/64 (80) 100 08/07/18 18:00 71 17 92/58 (69) 100 08/07/18 17:00 97.6 75 19 123/58 (79) 100 08/07/18 16:40 78 17 40 08/07/18 16:00 74 16 132/74 (93) 100 08/07/18 16:00 Mechanical Ventilator Mechanical Ventilator Mechanical Ventilator Mechanical Ventilator 08/07/18 16:00 75 08/07/18 16:00 40 08/07/18 15:00 71 16 138/76 (96) 100 08/07/18 14:44 69 23 40 08/07/18 14:00 69 16 134/62 (86) 100 08/07/18 13:00 68 16 114/52 (72) 100 08/07/18 12:30 67 16 40 08/07/18 12:00 97.8 66 17 106/76 (86) 100 08/07/18 12:00 Mechanical Ventilator Mechanical Ventilator Mechanical Ventilator Mechanical Ventilator 08/07/18 12:00 60 08/07/18 12:00 40 Height (Feet): 5 Height (Inches): 7.00 Weight (Pounds): 225 HEENT: other - intubated Respiratory/Chest: lungs clear Cardiovascular: normal rate, regular rhythm, no gallop/murmur Abdomen: soft, non tender Extremities: no edema, other - right stump clean, left foot VAC Laboratory Tests Test 08/07/18 16:30 Arterial Blood pH 7.367 (7.350-7.450) Arterial Blood Partial Pressure CO2 53.5 mmHg (35.0-45.0) H Arterial Blood Partial Pressure O2 52.3 mmHg (75.0-100.0) L Arterial Blood HCO3 30.0 mmol/L (22.0-26.0) H Arterial Blood Oxygen Saturation 84.0 % (95-100) *L Arterial Blood Base Excess 4 (-2-2) H Nicola Test Positive Current Medications Medications (Trade) Dose Ordered Sig/Andre Route PRN Reason Start Time Stop Time Status Last Admin Dose Admin Acetaminophen (Tylenol) 650 mg Q6H PRN ORAL Mild Pain/Temp > 100.5 08/02/18 11:45 08/16/18 23:44 Aspirin (ASA) 81 mg DAILY ORAL 08/02/18 12:30 09/01/18 12:29 08/07/18 08:31 Colistimethate Sodium (Colistin *inhalation use only*) 75 mg Q12HR@10,22 INH 08/07/18 22:00 08/14/18 21:59 08/08/18 09:14 Dextrose 1,000 ml @ 30 mls/hr Q24H IV 08/03/18 13:00 09/02/18 12:59 08/07/18 18:55 Dextrose (Dextrose 50%) 25 ml Q30M PRN IV Hypoglycemia 08/02/18 12:00 08/17/18 11:59 08/07/18 18:53 Dextrose (Dextrose 50%) 50 ml Q30M PRN IV Hypoglycemia 08/02/18 12:00 08/17/18 11:59 08/03/18 11:30 Diphenoxylate HCl/ Atropine (Lomotil) 2.5 mg Q4H PRN ORAL Diarrhea 08/02/18 12:30 08/29/18 12:29 Docusate Sodium (Colace) 100 mg THREE TIMES A DAY ORAL 08/02/18 13:00 08/17/18 08:59 08/07/18 08:32 Epoetin Marcus (Procrit (for ESRD on dialysis)) 10,000 units TUE-TUE-TUE SUBQ 08/04/18 21:00 08/18/18 20:59 08/07/18 20:49 Heparin Sodium (Porcine) (Heparin 5000 units/ml) 5,000 units EVERY 12 HOURS SUBQ 08/02/18 21:00 08/17/18 08:59 08/08/18 08:41 Lorazepam (Ativan 2mg/ml 1ml) 1 mg Q6H PRN IV For Anxiety 08/02/18 20:15 08/09/18 20:14 Pantoprazole (Protonix) 40 mg DAILY IVP 08/03/18 09:00 09/02/18 08:59 08/08/18 08:40 Polyethylene Glycol (Miralax) 17 gm DAILYPRN PRN ORAL Constipation 08/02/18 13:00 08/26/18 12:59 Sennosides (Senokot) 17.2 mg QHS ORAL 08/02/18 21:00 08/17/18 20:59 08/04/18 20:34 Vitamin B Complex/ Vit C/Folic Acid (Nephrovite) 1 tab DAILY ORAL 08/02/18 13:00 09/01/18 12:59 08/07/18 08:31 Naya Cain MD Aug 08, 2018 11:08"
--- NOTE | 2018-08-08 11:59 | NUR ---
NURSE NOTES: Pt accucheck was 68. D50 given. BS rechecked and it was 99. Will continue to monitor.
--- NOTE | 2018-08-08 12:01 | Diagnostic Imaging Report ---
Indication: Dyspnea Comparison: 08/06/2018 A single view chest radiograph was obtained. Findings: Interstitial edema demonstrated. Bilateral pleural effusions and cardiomegaly again noted. Endotracheal tube is just above the kellen. IMPRESSION: Slightly worsening CHF.
--- NOTE | 2018-08-08 12:24 | NUR ---
NURSE NOTES: Pt only able to be on CPAP for 4 hours. Pt not taking enough volume, vent was alarming. Pt back on SIMV mode. Will continue to monitor.
--- NOTE | 2018-08-08 12:44 | NUR ---
CASE MANAGEMENT: REVIEW SI: ESRD . HYPOTENSION T 97.7 HR 62 RR 13 BP 106/55 SAT 100% MECH VENT FIO2 40 IS: PROCRIT SQ MWF ZOSYN IV Q8HR ASA PO QD LISINOPRIL PO QD COREG PO Q12HR ICU STATUS DCP: PATIENT IS FROM [facility]
--- NOTE | 2018-08-08 12:46 | NUR ---
CASE MANAGEMENT: REVIEW SI: ESRD . HYPOTENSION T 97.8 HR 66 RR 17 BP 98/81 SAT 100% MECH VENT FIO2 40 H/H 8.0/26.8 NA 134 IS: PROCRIT SQ MWF ZOSYN IV Q8HR ASA PO QD LISINOPRIL PO QD COREG PO Q12HR ICU STATUS DCP: PATIENT IS FROM [facility]
--- NOTE | 2018-08-08 16:29 | NUR ---
NURSE NOTES: Turned and repositioned pt. Oral care done. No acute distress. Will continue to monitor.
--- NOTE | 2018-08-08 17:04 | Nephrology Progress Note ---
Assessment/Plan Plan VDRF. B pleural Effusion. 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 On IV Abx per ID. HD MWF. Increase UF on HD. Try to wean off vent. Maintain euglycemia with IV D5 0.45 NS. Trying to wean off vent. DW Dr. Rolon. Difficult to wean. We'll keep trying. Subjective Subjective Intubated, On vent. In ICU. Objective Objective Last 24 Hour Vital Signs Date Time Temp Pulse Resp B/P (MAP) Pulse Ox O2 Delivery O2 Flow Rate FiO2 08/08/18 16:00 97.1 67 20 120/66 (84) 100 08/08/18 16:00 Mechanical Ventilator 08/08/18 16:00 66 08/08/18 16:00 40 08/08/18 15:30 63 14 40 08/08/18 15:00 65 19 133/71 (91) 100 08/08/18 14:00 64 18 126/60 (82) 100 08/08/18 13:18 66 15 40 08/08/18 13:00 65 18 100/61 (74) 100 08/08/18 12:00 65 08/08/18 12:00 Mechanical Ventilator 08/08/18 12:00 97.7 62 13 123/61 (81) 100 08/08/18 12:00 40 08/08/18 11:28 65 13 40 08/08/18 11:00 67 14 116/58 (77) 100 08/08/18 10:00 66 18 106/55 (72) 100 08/08/18 09:18 67 15 100 Mechanical Ventilator 60.0 40 08/08/18 09:02 65 16 40 08/08/18 09:02 100 08/08/18 09:02 65 17 100 Mechanical Ventilator 40 08/08/18 09:00 66 13 121/79 (93) 100 08/08/18 08:00 97.0 68 19 125/63 (83) 100 08/08/18 08:00 40 08/08/18 08:00 Mechanical Ventilator 08/08/18 08:00 67 08/08/18 07:35 64 14 40 08/08/18 07:00 83 18 130/69 (89) 99 08/08/18 06:00 65 18 130/69 (89) 99 08/08/18 05:00 40 08/08/18 05:00 65 18 118/59 (78) 100 08/08/18 04:53 67 17 40 08/08/18 04:00 97.7 67 19 116/65 (82) 100 08/08/18 04:00 Mechanical Ventilator 08/08/18 04:00 66 08/08/18 03:00 63 15 122/59 (80) 100 08/08/18 02:33 63 12 40 08/08/18 02:00 67 15 120/68 (85) 100 08/08/18 01:00 66 16 118/59 (78) 100 08/08/18 01:00 61 11 40 08/08/18 00:00 97.5 65 16 114/60 (78) 100 08/08/18 00:00 Mechanical Ventilator 08/08/18 00:00 40 08/08/18 00:00 64 08/07/18 23:00 65 14 120/71 (87) 100 08/07/18 22:39 65 17 100 Mechanical Ventilator 40 08/07/18 22:37 65 17 40 08/07/18 22:00 64 14 120/61 (80) 100 08/07/18 21:00 66 18 134/68 (90) 100 08/07/18 20:42 63 14 40 08/07/18 20:00 40 08/07/18 20:00 65 08/07/18 20:00 97.8 67 15 123/70 (87) 100 08/07/18 20:00 Mechanical Ventilator Mechanical Ventilator Mechanical Ventilator Mechanical Ventilator 08/07/18 19:13 73 20 40 08/07/18 19:00 69 17 111/64 (80) 100 08/07/18 18:00 71 17 92/58 (69) 100 Intake and Output 08/07/18 08/08/18 18:59 06:59 Intake Total 2860 ml 360 ml Output Total 0 ml 0 ml Balance 2860 ml 360 ml Intake Oral 0 ml IV Total 360 ml 360 ml Hemodialysis 2500 ml Output Urine Total 0 ml 0 ml # Bowel Movements 2 2 Height (Feet): 5 Height (Inches): 7.00 Weight (Pounds): 225 Objective Intubated, On vent. Blind CV RR Lungs CTA Abd SNT. BS + E No CCE Neuro:Alert, nonfocal. Bredna Fuller MD Aug 08, 2018 17:04
[2018-08-08] MEDS ORDERED: Heparin Sod 1000 units/ml 10ml IV PRN (17:15)
--- NOTE | 2018-08-08 17:19 | NUR ---
NURSE NOTES: Dr Sparks here to see pt. Ordered dialysis for tomorrow. Spoke with Solomon from [facility] to schedule pt. Will continue to monitor.
--- NOTE | 2018-08-08 18:35 | NUR ---
NURSE NOTES: Family here at bedside to visit with pt. No acute distress. Will continue to monitor.
--- NOTE | 2018-08-08 19:03 | NUR ---
HAND-OFF: Report given to Ester NATION.
--- NOTE | 2018-08-08 19:04 | NUR ---
NURSE NOTES: Endorsement received from CHAPIS Jay. Patient opens eyes spontaneously, legally blind bilaterally. Follows simple commands, Orally intubated with ET 7.0 22.5 lipline. On SIMV 10 PS10. With left hand g20 patent and intact with good backflow. Ongoing D10W at 30ml/hr. With wound vacc at left foot, dressing dry and intact. Suction set at 125mmHg as per order, no drainage. With right s/p BKA, stump kept elevated. On P200 mattress. Head of bed elevated. Call light within reach. Bed locked, low position with bed alarm on. Son at bedside.
--- NOTE | 2018-08-08 20:30 | NUR ---
NURSE NOTES: Patient passed moderate greenish stool. Perineal care done.
[2018-08-08] MEDS: Sennosides 8.6mg tab ORAL SCH (21:00)
--- NOTE | 2018-08-08 22:00 | NUR ---
NURSE NOTES: Blood sugar check: 69mg/dl. Patient awake, listening to the tv. D50 25ml given IVP as ordered.
--- NOTE | 2018-08-08 22:53 | Cardiology Progress Note ---
Assessment/Plan Assessment/Plan unfortunately, there is little more what could be done for this patient from cardiac standpoint, she is in CHF due to severe MR, and she is not a candidate for surgery Subjective Subjective remains intubated, opens her eyes and becomes agitated with verbal stimuli, probably seeing something, because she moves her arms in the air. Objective Last 24 Hour Vital Signs Date Time Temp Pulse Resp B/P (MAP) Pulse Ox O2 Delivery O2 Flow Rate FiO2 08/08/18 22:39 69 17 100 Mechanical Ventilator 40 08/08/18 21:01 64 16 40 08/08/18 20:00 Mechanical Ventilator 08/08/18 20:00 40 08/08/18 19:30 68 17 40 08/08/18 19:00 69 15 113/60 (77) 100 08/08/18 18:00 67 17 129/70 (89) 100 08/08/18 17:25 66 15 40 08/08/18 17:00 67 24 108/57 (74) 100 08/08/18 16:00 97.1 67 20 120/66 (84) 100 08/08/18 16:00 Mechanical Ventilator 08/08/18 16:00 66 08/08/18 16:00 40 08/08/18 15:30 63 14 40 08/08/18 15:00 65 19 133/71 (91) 100 08/08/18 14:00 64 18 126/60 (82) 100 08/08/18 13:18 66 15 40 08/08/18 13:00 65 18 100/61 (74) 100 08/08/18 12:00 65 08/08/18 12:00 Mechanical Ventilator 08/08/18 12:00 97.7 62 13 123/61 (81) 100 08/08/18 12:00 40 08/08/18 11:28 65 13 40 08/08/18 11:00 67 14 116/58 (77) 100 08/08/18 10:00 66 18 106/55 (72) 100 08/08/18 09:18 67 15 100 Mechanical Ventilator 60.0 40 08/08/18 09:02 65 16 40 08/08/18 09:02 100 08/08/18 09:02 65 17 100 Mechanical Ventilator 40 08/08/18 09:00 66 13 121/79 (93) 100 08/08/18 08:00 97.0 68 19 125/63 (83) 100 08/08/18 08:00 40 08/08/18 08:00 Mechanical Ventilator 08/08/18 08:00 67 08/08/18 07:35 64 14 40 08/08/18 07:00 83 18 130/69 (89) 99 08/08/18 06:00 65 18 130/69 (89) 99 08/08/18 05:00 40 08/08/18 05:00 65 18 118/59 (78) 100 08/08/18 04:53 67 17 40 08/08/18 04:00 97.7 67 19 116/65 (82) 100 08/08/18 04:00 Mechanical Ventilator 08/08/18 04:00 66 08/08/18 03:00 63 15 122/59 (80) 100 08/08/18 02:33 63 12 40 08/08/18 02:00 67 15 120/68 (85) 100 08/08/18 01:00 66 16 118/59 (78) 100 08/08/18 01:00 61 11 40 08/08/18 00:00 97.5 65 16 114/60 (78) 100 08/08/18 00:00 Mechanical Ventilator 08/08/18 00:00 40 08/08/18 00:00 64 08/07/18 23:00 65 14 120/71 (87) 100 General Appearance: combative, on vent Neck: JVD Rhythm: NSR Cardiovascular: systolic murmur Respiratory/Chest: crackles/rales Abdomen: distended Intake and Output 08/07/18 08/08/18 19:00 07:00 Intake Total 2860 ml 360 ml Output Total 0 ml 0 ml Balance 2860 ml 360 ml IV Total 360 ml 360 ml Hemodialysis 2500 ml Output Urine Total 0 ml 0 ml # Bowel Movements 2 2 Clarisse Daley MD Aug 08, 2018 22:53
--- NOTE | 2018-08-08 23:00 | NUR ---
NURSE NOTES: Received order from Dr. Rolon, patient on SIMV during the night if tolerating.
[2018-08-09] VITALS (24 sets, daily range): BP systolic 97–148; BP diastolic 50–98
--- NOTE | 2018-08-09 | NUR ---
NURSE NOTES: Patient not getting the volume, back to AC mode c/o RT
[2018-08-09] MEDS: Dextrose 10% 1,000 ML IV SCH (01:57)
--- NOTE | 2018-08-09 02:00 | NUR ---
NURSE NOTES: Secretions suctioned. No shortness of breath.
--- NOTE | 2018-08-09 04:00 | NUR ---
NURSE NOTES: Patient asleep. Vital signs stable.
--- NOTE | 2018-08-09 05:00 | NUR ---
NURSE NOTES: Bed bath, oral care, change of linens done.
[2018-08-09 06:19] LABS: BASOPHILS % (AUTO) 1.7 % (0.0-2.0); EOSINOPHILS % (AUTO) 6.8 % (0.0-3.0); HEMATOCRIT 29.7 % (37.0-47.0); HEMOGLOBIN 8.7 G/DL (12.0-16.0); LYMPHOCYTES % (AUTO) 23.8 % (20.0-45.0); MEAN CORPUSCULAR VOLUME 92 FL (80-99); NEUTROPHILS % (AUTO) 55.8 % (45.0-75.0); PLATELET COUNT 101 K/UL (150-450); RED BLOOD COUNT 3.22 M/UL (4.20-5.40); RED CELL DISTRIBUTION WIDTH 17.2 % (11.6-14.8); WHITE BLOOD COUNT 4.3 K/UL (4.8-10.8)
[2018-08-09 06:31] LABS: ANION GAP 9 mmol/L (5-15); BLOOD UREA NITROGEN 18 mg/dL (7-18); CALCIUM 8.7 MG/DL (8.5-10.1); CARBON DIOXIDE 28 MMOL/L (21-32); CHLORIDE 101 MMOL/L (98-107); CREATININE 4.4 MG/DL (0.55-1.30); SODIUM 137 MMOL/L (136-145)
--- NOTE | 2018-08-09 07:10 | NUR ---
RESPIRATORY NOTE: Patient received mechanically ventilated on PB 840 with current ordered vent settings. Patient is orally intubated with a size 7.0 ETT tube with 22cm at the lip line that is secured with anchor fast. There are bilateral coarse breath sounds present upon auscultation. Small amount of thick clear secretions were suctioned without incident via inline suctioned system. There is an ambu bag available the bedside and the vent is connected to a red outlet. Vent alarms are functional and audible. Will continue to monitor.
--- NOTE | 2018-08-09 07:12 | NUR ---
HAND-OFF: Report given to CHAPIS Loera.
--- NOTE | 2018-08-09 07:24 | NUR ---
NURSE NOTES: Patient is resting in bed, is alert and oriented x3 , is orally intubated, plans of weaning has already been implemented, patient has chronic history of respiratory distress. Was previous on simv setting 05/03 , but was unable to recieve full volume. Will monitor for respiratory distress. Is chronically low in blood sugar has d10 running and half of D50 was given this morning. WIll monitor very closely.
--- NOTE | 2018-08-09 07:24 | NUR ---
NURSE NOTES: Report given by oswald Puente
[2018-08-09] MEDS: Aspirin Baby 81mg ORAL SCH (09:00)
[2018-08-09] MEDS: Docusate 100mg cap ORAL SCH ×3 (09:00→18:00)
[2018-08-09] MEDS: Nephrovite tab (Rena-Vite) ORAL SCH (09:00)
[2018-08-09] MEDS: Colistin for inhalation INH SCH ×2 (09:21→22:16)
--- NOTE | 2018-08-09 10:00 | NUR ---
NURSE NOTES: Patient is nonverbal due to intubation tube, communicates with hand signals and pointing. Had one large BM has alot of redness and princess-area excoriation.
[2018-08-09] MEDS: Pantoprazole Inj IVP SCH (10:01)
[2018-08-09] MEDS: Heparin 5000 units/ml inj SUBQ SCH ×2 (10:04→20:38)
--- NOTE | 2018-08-09 11:01 | Infectious Diseases Prog Note ---
"Assessment/Plan Assessment/Plan antibiotics ; inhaled colistin 1.13.19 - A 1. enterococcus | streptococcus UTI s/p rx 2. acenitobacter pneumonia 3. diabetes mellitus 4. hypertension 5. renal failure on hemodialysis 6. history of left foot osteomyelitis 7. respiratory failure P 1. continue inhaled colistin 6 more days 2. will follow up cultures Subjective ROS Limited/Unobtainable: Yes Allergies: Coded Allergies: BENAZEPRIL (Verified Allergy, Unknown, 06/12/18) CODEINE (Verified Allergy, Unknown, 06/12/18) INSULIN ASPART (Verified Allergy, Unknown, 06/12/18) INSULIN DETEMIR (Verified Allergy, Unknown, 06/12/18) OPIOIDS - MORPHINE ANALOGUES (Verified Allergy, Unknown, 06/12/18) Objective Vital Signs Last 24 Hour Vital Signs Date Time Temp Pulse Resp B/P (MAP) Pulse Ox O2 Delivery O2 Flow Rate FiO2 08/09/18 09:21 67 25 100 Mechanical Ventilator 40 08/09/18 09:17 67 19 40 08/09/18 09:00 66 16 125/94 (104) 100 08/09/18 08:00 40 08/09/18 08:00 Mechanical Ventilator 08/09/18 08:00 70 17 139/71 (93) 100 08/09/18 08:00 65 08/09/18 07:50 100 08/09/18 07:06 68 14 40 08/09/18 07:00 75 16 129/71 (90) 100 08/09/18 06:00 66 16 130/65 (86) 100 08/09/18 05:00 67 16 119/66 (83) 100 08/09/18 04:59 74 14 40 08/09/18 04:00 66 08/09/18 04:00 97.6 66 16 97/82 (87) 100 08/09/18 04:00 Mechanical Ventilator 08/09/18 04:00 40 08/09/18 03:14 69 19 40 08/09/18 03:00 68 24 125/66 (85) 100 08/09/18 02:00 68 16 127/60 (82) 100 08/09/18 01:21 67 19 40 08/09/18 01:00 68 19 115/57 (76) 99 08/09/18 00:00 40 08/09/18 00:00 70 08/09/18 00:00 97.7 68 16 130/66 (87) 100 08/09/18 00:00 Mechanical Ventilator 08/08/18 23:00 71 16 129/70 (89) 100 08/08/18 22:59 73 19 40 08/08/18 22:40 71 17 100 Mechanical Ventilator 40 08/08/18 22:39 69 17 100 Mechanical Ventilator 40 08/08/18 22:00 69 17 126/71 (89) 100 08/08/18 21:01 64 16 40 08/08/18 21:00 69 18 105/82 (90) 100 08/08/18 20:00 Mechanical Ventilator 08/08/18 20:00 97.5 71 17 104/75 (85) 100 08/08/18 20:00 40 08/08/18 20:00 68 08/08/18 19:30 68 17 40 08/08/18 19:00 69 15 113/60 (77) 100 08/08/18 18:00 67 17 129/70 (89) 100 08/08/18 17:25 66 15 40 08/08/18 17:00 67 24 108/57 (74) 100 08/08/18 16:00 97.1 67 20 120/66 (84) 100 08/08/18 16:00 Mechanical Ventilator 08/08/18 16:00 66 08/08/18 16:00 40 08/08/18 15:30 63 14 40 08/08/18 15:00 65 19 133/71 (91) 100 08/08/18 14:00 64 18 126/60 (82) 100 08/08/18 13:18 66 15 40 08/08/18 13:00 65 18 100/61 (74) 100 08/08/18 12:00 65 08/08/18 12:00 Mechanical Ventilator 08/08/18 12:00 97.7 62 13 123/61 (81) 100 08/08/18 12:00 40 08/08/18 11:28 65 13 40 Height (Feet): 5 Height (Inches): 7.00 Weight (Pounds): 225 HEENT: other - intubated Respiratory/Chest: lungs clear Cardiovascular: normal rate, regular rhythm, no gallop/murmur Abdomen: soft, non tender Extremities: no edema, other - right stump clean, left foot VAC Laboratory Tests Test 08/09/18 04:50 White Blood Count 4.3 K/UL (4.8-10.8) L Red Blood Count 3.22 M/UL (4.20-5.40) L Hemoglobin 8.7 G/DL (12.0-16.0) L Hematocrit 29.7 % (37.0-47.0) L Mean Corpuscular Volume 92 FL (80-99) Mean Corpuscular Hemoglobin 27.2 PG (27.0-31.0) Mean Corpuscular Hemoglobin Concent 29.5 G/DL (32.0-36.0) L Red Cell Distribution Width 17.2 % (11.6-14.8) H Platelet Count 101 K/UL (150-450) L Mean Platelet Volume 7.9 FL (6.5-10.1) Neutrophils (%) (Auto) 55.8 % (45.0-75.0) Lymphocytes (%) (Auto) 23.8 % (20.0-45.0) Monocytes (%) (Auto) 12.0 % (1.0-10.0) H Eosinophils (%) (Auto) 6.8 % (0.0-3.0) H Basophils (%) (Auto) 1.7 % (0.0-2.0) Sodium Level 137 MMOL/L (136-145) Potassium Level 4.0 MMOL/L (3.5-5.1) Chloride Level 101 MMOL/L (98-107) Carbon Dioxide Level 28 MMOL/L (21-32) Anion Gap 9 mmol/L (5-15) Blood Urea Nitrogen 18 mg/dL (7-18) Creatinine 4.4 MG/DL (0.55-1.30) H Estimat Glomerular Filtration Rate 12.0 mL/min (>60) Glucose Level 70 MG/DL (74-106) L Calcium Level 8.7 MG/DL (8.5-10.1) Current Medications Medications (Trade) Dose Ordered Sig/Andre Route PRN Reason Start Time Stop Time Status Last Admin Dose Admin Acetaminophen (Tylenol) 650 mg Q6H PRN ORAL Mild Pain/Temp > 100.5 08/02/18 11:45 08/16/18 23:44 Aspirin (ASA) 81 mg DAILY ORAL 08/02/18 12:30 09/01/18 12:29 08/07/18 08:31 Colistimethate Sodium (Colistin *inhalation use only*) 75 mg Q12HR@10,22 INH 08/07/18 22:00 08/15/18 23:00 08/09/18 09:21 Dextrose 1,000 ml @ 30 mls/hr Q24H IV 08/03/18 13:00 09/02/18 12:59 08/09/18 01:57 Dextrose (Dextrose 50%) 25 ml Q30M PRN IV Hypoglycemia 08/02/18 12:00 08/17/18 11:59 08/09/18 05:08 Dextrose (Dextrose 50%) 50 ml Q30M PRN IV Hypoglycemia 08/02/18 12:00 08/17/18 11:59 08/03/18 11:30 Diphenoxylate HCl/ Atropine (Lomotil) 2.5 mg Q4H PRN ORAL Diarrhea 08/02/18 12:30 08/29/18 12:29 Docusate Sodium (Colace) 100 mg THREE TIMES A DAY ORAL 08/02/18 13:00 08/17/18 08:59 08/07/18 08:32 Epoetin Marcus (Procrit (for ESRD on dialysis)) 10,000 units TUE-TUE-TUE SUBQ 08/04/18 21:00 08/18/18 20:59 08/07/18 20:49 Heparin Sodium (Porcine) (Heparin 5000 units/ml) 5,000 units EVERY 12 HOURS SUBQ 08/02/18 21:00 08/17/18 08:59 08/09/18 10:04 Heparin Sodium (Porcine) (Heparin Sod 1000 units/ml 10ml) 2,000 unit ONCE PRN IV FOR HD USE ONLY 08/08/18 17:15 08/09/18 23:59 Pantoprazole (Protonix) 40 mg DAILY IVP 08/03/18 09:00 09/02/18 08:59 08/09/18 10:01 Polyethylene Glycol (Miralax) 17 gm DAILYPRN PRN ORAL Constipation 08/02/18 13:00 08/26/18 12:59 Sennosides (Senokot) 17.2 mg QHS ORAL 08/02/18 21:00 08/17/18 20:59 08/04/18 20:34 Sodium Chloride 1,000 ml @ 500 mls/hr Q2H PRN IVLG sbp<90 during hd 08/08/18 17:04 08/09/18 23:59 Vitamin B Complex/ Vit C/Folic Acid (Nephrovite) 1 tab DAILY ORAL 08/02/18 13:00 09/01/18 12:59 08/07/18 08:31 Naya Cain MD Aug 09, 2018 11:01"
--- NOTE | 2018-08-09 12:11 | NUR ---
CASE MANAGEMENT: REVIEW SI: ESRD . HYPOTENSION T 97.5 HR 66 RR 19 BP 133/69 SAT 100% MECH VENT FIOI2 40 WBC 4.3 H/H 8.7/29.7 IS: HEPARIN IV X1 COLISTIN INH Q12HR PROCRIT SQ MWF PROTONIX IV QD ICU STATUS DCP: PATIENT IS FROM [facility]
--- NOTE | 2018-08-09 12:32 | Nephrology Progress Note ---
Assessment/Plan Plan VDRF. B pleural Effusion. Severe CHF. DW Dr. Daley! Try to alleviate. 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 On IV Abx per ID. HD MWF. Increase UF on HD. Try to wean off vent. Maintain euglycemia with IV D5 0.45 NS. Trying to wean off vent. SAVANAH Rolon. Difficult to wean. We'll keep trying. Subjective Subjective Intubated, On vent. In ICU. Objective Objective Last 24 Hour Vital Signs Date Time Temp Pulse Resp B/P (MAP) Pulse Ox O2 Delivery O2 Flow Rate FiO2 08/09/18 12:00 40 08/09/18 12:00 Mechanical Ventilator Mechanical Ventilator 08/09/18 11:05 68 19 Mechanical Ventilator 40 08/09/18 11:00 97.5 66 19 133/69 (90) 100 08/09/18 10:42 66 22 40 08/09/18 10:00 68 18 138/85 (102) 100 08/09/18 09:31 77 20 100 Mechanical Ventilator 40 08/09/18 09:21 67 25 100 Mechanical Ventilator 40 08/09/18 09:17 67 19 40 08/09/18 09:00 66 16 125/94 (104) 100 08/09/18 08:00 40 08/09/18 08:00 Mechanical Ventilator 08/09/18 08:00 70 17 139/71 (93) 100 08/09/18 08:00 65 08/09/18 07:50 100 08/09/18 07:06 68 14 40 08/09/18 07:00 75 16 129/71 (90) 100 08/09/18 06:00 66 16 130/65 (86) 100 08/09/18 05:00 67 16 119/66 (83) 100 08/09/18 04:59 74 14 40 08/09/18 04:00 66 08/09/18 04:00 97.6 66 16 97/82 (87) 100 08/09/18 04:00 Mechanical Ventilator 08/09/18 04:00 40 08/09/18 03:14 69 19 40 08/09/18 03:00 68 24 125/66 (85) 100 08/09/18 02:00 68 16 127/60 (82) 100 1/16/19 01:21 67 19 40 08/09/18 01:00 68 19 115/57 (76) 99 08/09/18 00:00 40 08/09/18 00:00 70 08/09/18 00:00 97.7 68 16 130/66 (87) 100 08/09/18 00:00 Mechanical Ventilator 08/08/18 23:00 71 16 129/70 (89) 100 08/08/18 22:59 73 19 40 08/08/18 22:40 71 17 100 Mechanical Ventilator 40 08/08/18 22:39 69 17 100 Mechanical Ventilator 40 08/08/18 22:00 69 17 126/71 (89) 100 08/08/18 21:01 64 16 40 08/08/18 21:00 69 18 105/82 (90) 100 08/08/18 20:00 Mechanical Ventilator 08/08/18 20:00 97.5 71 17 104/75 (85) 100 08/08/18 20:00 40 08/08/18 20:00 68 08/08/18 19:30 68 17 40 08/08/18 19:00 69 15 113/60 (77) 100 08/08/18 18:00 67 17 129/70 (89) 100 08/08/18 17:25 66 15 40 08/08/18 17:00 67 24 108/57 (74) 100 08/08/18 16:00 97.1 67 20 120/66 (84) 100 08/08/18 16:00 Mechanical Ventilator 08/08/18 16:00 66 08/08/18 16:00 40 08/08/18 15:30 63 14 40 08/08/18 15:00 65 19 133/71 (91) 100 08/08/18 14:00 64 18 126/60 (82) 100 08/08/18 13:18 66 15 40 08/08/18 13:00 65 18 100/61 (74) 100 Intake and Output 08/08/18 08/09/18 19:00 07:00 Intake Total 300 ml 330 ml Output Total 0 ml 0 ml Balance 300 ml 330 ml IV Total 300 ml 330 ml Output Urine Total 0 ml 0 ml # Bowel Movements 3 Laboratory Tests 08/09/18 04:50: White Blood Count 4.3L, Red Blood Count 3.22L, Hemoglobin 8.7L, Hematocrit 29.7L , Mean Corpuscular Volume 92, Mean Corpuscular Hemoglobin 27.2, Mean Corpuscular Hemoglobin Concent 29.5L, Red Cell Distribution Width 17.2H, Platelet Count 101L, Mean Platelet Volume 7.9, Neutrophils (%) (Auto) 55.8, Lymphocytes (%) (Auto) 23.8, Monocytes (%) (Auto) 12.0H, Eosinophils (%) (Auto) 6.8H, Basophils (%) (Auto) 1.7, Sodium Level 137, Potassium Level 4.0, Chloride Level 101, Carbon Dioxide Level 28, Anion Gap 9, Blood Urea Nitrogen 18, Creatinine 4.4H, Estimat Glomerular Filtration Rate 12.0, Glucose Level 70L, Calcium Level 8.7 Height (Feet): 5 Height (Inches): 7.00 Weight (Pounds): 225 Objective Intubated, On vent. Blind CV RR Lungs CTA Abd SNT. BS + E No CCE Neuro:Alert, nonfocal. Brenda Fuller MD Aug 09, 2018 12:32
--- NOTE | 2018-08-09 12:51 | NUR ---
NURSE NOTES: Patient had is currently being activily weaned, has consulted with RT to titrate pressure support, then ask for possible abg.
--- NOTE | 2018-08-09 15:10 | NUR ---
NURSE NOTES: Patient currently gettinh hemodialysis.
--- NOTE | 2018-08-09 16:17 | Pulmonolgy Critical Care Note ---
Critical Care - Asmt/Plan Assessment/Plan: Pulmonary CCM Progress Note Assessment/Plan Assessment/Plan IMPRESSION: 1. Acute on chronic respiratory failure. 2. Acute hypercapnia, resolved with positive pressure ventilation 3. Hypoxemia. 4. Bilateral pleural effusions. 5. Fluid overload. 6. End-stage renal disease. 7. Severe protein-calorie malnutrition. 8. Anemia. 9. Thrombocytopenia. 10. Mild coagulopathy. 11. acute on chronic encephalopathy PLAN likely needs trach with poor baseline likely has obesity hypoventilation would recommend to proceed and place in subacute will try to wean again today monitor acid base sedation- reduce in hopes of wean will follow up nutrition keep negative as per renal and cards medications/laboratory data/nursing notes/ICU care reviewed in detail note reviewed and edited care discussed with RN and RT ICU time spent 40 minutes Subjective ROS Limited/Unobtainable: Yes Allergies: Coded Allergies: BENAZEPRIL (Verified Allergy, Unknown, 06/12/18) CODEINE (Verified Allergy, Unknown, 06/12/18) INSULIN ASPART (Verified Allergy, Unknown, 06/12/18) INSULIN DETEMIR (Verified Allergy, Unknown, 06/12/18) OPIOIDS - MORPHINE ANALOGUES (Verified Allergy, Unknown, 06/12/18) Subjective care noted and reviewed on the vent ICU care reviewed Objective Vital Signs Noted Objective: WDWN NAD orally intubated reduced breath sounds bilaterally without rhonchi or wheeze [id number] without MRG NABS nontender no HSM; feeding tube no CC edema nonfocal skin exam Critical Care - Subjective Interval Events: try to wean put back to AC ROS Limited/Unobtainable: Yes Condition: critical EKG Rhythm: Sinus Rhythm Residuals: minimal Tube Feeding Tolerated: yes Critical Care - Objective ET-Tube: 7.0 ET Position: 22 Vital Signs Noted Labs Test 08/06/18 04:45 08/06/18 08:10 08/07/18 05:50 08/07/18 16:30 White Blood Count 5.2 K/UL (4.8-10.8) 5.3 K/UL (4.8-10.8) Red Blood Count 3.00 M/UL (4.20-5.40) 2.95 M/UL (4.20-5.40) Hemoglobin 8.3 G/DL (12.0-16.0) 8.0 G/DL (12.0-16.0) Hematocrit 27.2 % (37.0-47.0) 26.8 % (37.0-47.0) Mean Corpuscular Volume 91 FL (80-99) 91 FL (80-99) Mean Corpuscular Hemoglobin 27.6 PG (27.0-31.0) 27.2 PG (27.0-31.0) Mean Corpuscular Hemoglobin Concent 30.4 G/DL (32.0-36.0) 30.0 G/DL (32.0-36.0) Red Cell Distribution Width 17.8 % (11.6-14.8) 17.3 % (11.6-14.8) Platelet Count 160 K/UL (150-450) 154 K/UL (150-450) Mean Platelet Volume 10.4 FL (6.5-10.1) 9.8 FL (6.5-10.1) Neutrophils (%) (Auto) 61.9 % (45.0-75.0) 60.8 % (45.0-75.0) Lymphocytes (%) (Auto) 21.1 % (20.0-45.0) 19.7 % (20.0-45.0) Monocytes (%) (Auto) 9.3 % (1.0-10.0) 10.9 % (1.0-10.0) Eosinophils (%) (Auto) 7.2 % (0.0-3.0) 8.0 % (0.0-3.0) Basophils (%) (Auto) 0.5 % (0.0-2.0) 0.7 % (0.0-2.0) Sodium Level 136 MMOL/L (136-145) 134 MMOL/L (136-145) Potassium Level 3.9 MMOL/L (3.5-5.1) 3.7 MMOL/L (3.5-5.1) Chloride Level 102 MMOL/L (98-107) 101 MMOL/L (98-107) Carbon Dioxide Level 27 MMOL/L (21-32) 26 MMOL/L (21-32) Anion Gap 7 mmol/L (5-15) 7 mmol/L (5-15) Blood Urea Nitrogen 21 mg/dL (7-18) 22 mg/dL (7-18) Creatinine 4.2 MG/DL (0.55-1.30) 4.5 MG/DL (0.55-1.30) Estimat Glomerular Filtration Rate 12.7 mL/min (>60) 11.6 mL/min (>60) Glucose Level 70 MG/DL (74-106) 73 MG/DL (74-106) Calcium Level 8.8 MG/DL (8.5-10.1) 8.8 MG/DL (8.5-10.1) Magnesium Level 2.2 MG/DL (1.8-2.4) Arterial Blood pH 7.400 (7.350-7.450) 7.367 (7.350-7.450) Arterial Blood Partial Pressure CO2 39.8 mmHg (35.0-45.0) 53.5 mmHg (35.0-45.0) Arterial Blood Partial Pressure O2 197.0 mmHg (75.0-100.0) 52.3 mmHg (75.0-100.0) Arterial Blood HCO3 24.1 mmol/L (22.0-26.0) 30.0 mmol/L (22.0-26.0) Arterial Blood Oxygen Saturation 99.3 % (95-100) 84.0 % (95-100) Arterial Blood Base Excess -6.0 (-2-2) 4 (-2-2) Nicola Test Positive Positive Critical Care - Objective Last 24 Hour Vital Signs Date Time Temp Pulse Resp B/P (MAP) Pulse Ox O2 Delivery O2 Flow Rate FiO2 08/09/18 15:00 64 18 110/50 (70) 100 08/09/18 14:30 68 19 40 08/09/18 14:00 69 17 128/64 (85) 100 08/09/18 13:00 68 16 127/66 (86) 100 08/09/18 12:31 71 19 40 08/09/18 12:00 70 17 125/61 (82) 100 08/09/18 12:00 40 08/09/18 12:00 68 08/09/18 12:00 Mechanical Ventilator Mechanical Ventilator 08/09/18 11:05 68 19 Mechanical Ventilator 40 08/09/18 11:00 97.5 66 19 133/69 (90) 100 08/09/18 10:42 66 22 40 08/09/18 10:00 68 18 138/85 (102) 100 08/09/18 09:31 77 20 100 Mechanical Ventilator 40 08/09/18 09:21 67 25 100 Mechanical Ventilator 40 08/09/18 09:17 67 19 40 08/09/18 09:00 66 16 125/94 (104) 100 08/09/18 08:00 40 08/09/18 08:00 Mechanical Ventilator 08/09/18 08:00 70 17 139/71 (93) 100 08/09/18 08:00 65 08/09/18 07:50 100 08/09/18 07:06 68 14 40 08/09/18 07:00 75 16 129/71 (90) 100 08/09/18 06:00 66 16 130/65 (86) 100 08/09/18 05:00 67 16 119/66 (83) 100 08/09/18 04:59 74 14 40 08/09/18 04:00 66 08/09/18 04:00 97.6 66 16 97/82 (87) 100 08/09/18 04:00 Mechanical Ventilator 08/09/18 04:00 40 08/09/18 03:14 69 19 40 08/09/18 03:00 68 24 125/66 (85) 100 08/09/18 02:00 68 16 127/60 (82) 100 08/09/18 01:21 67 19 40 08/09/18 01:00 68 19 115/57 (76) 99 08/09/18 00:00 40 08/09/18 00:00 70 08/09/18 00:00 97.7 68 16 130/66 (87) 100 08/09/18 00:00 Mechanical Ventilator 08/08/18 23:00 71 16 129/70 (89) 100 08/08/18 22:59 73 19 40 08/08/18 22:40 71 17 100 Mechanical Ventilator 40 08/08/18 22:39 69 17 100 Mechanical Ventilator 40 08/08/18 22:00 69 17 126/71 (89) 100 08/08/18 21:01 64 16 40 08/08/18 21:00 69 18 105/82 (90) 100 08/08/18 20:00 Mechanical Ventilator 08/08/18 20:00 97.5 71 17 104/75 (85) 100 08/08/18 20:00 40 08/08/18 20:00 68 08/08/18 19:30 68 17 40 08/08/18 19:00 69 15 113/60 (77) 100 08/08/18 18:00 67 17 129/70 (89) 100 08/08/18 17:25 66 15 40 08/08/18 17:00 67 24 108/57 (74) 100 Accucheck: 77 Critical Care - Subjective ROS Limited/Unobtainable: No FI02: 40 Vent Support Breath Rate: 14 Vent Support Mode: CPAP Vent Tidal Volume: 500 Sputum Amount: Moderate PEEP: 5.0 PIP: 16 I&O: Intake and Output 08/08/18 08/09/18 19:00 07:00 Intake Total 300 ml 360 ml Output Total 0 ml 0 ml Balance 300 ml 360 ml IV Total 300 ml 360 ml Output Urine Total 0 ml 0 ml # Bowel Movements 3 ET-Tube: 7.0 ET Position: 22 Joaquin Mackenzie MD Aug 09, 2018 16:17
--- NOTE | 2018-08-09 18:37 | NUR ---
NURSE NOTES: Patient HD removed 3L and 1 BM dark green
--- NOTE | 2018-08-09 19:15 | NUR ---
NURSE NOTES: Endorsement received from CHAPIS Loera. Patient opens eyes spontaneously, follows commands. Orally intubated with ET 7.0, level 22.5. Received on SIMV 10 PS 10. On NPO. With right upper arm shunt. Left hand g 20 with good backflow. Ongoing D10W 30ml/hr. With left foot wound vacc, no drainage in the canister. Right BKA. Kept elevated. Head of bed elevated. Bed locked and in low position. Bed alarm on.
--- NOTE | 2018-08-09 20:00 | NUR ---
NURSE NOTES: Patient back to AC mode c/o RT..
[2018-08-09] MEDS: Epogen (for ESRD on dialysis) SUBQ SCH (20:36)
[2018-08-09] MEDS: Sennosides 8.6mg tab ORAL SCH (20:42)
[2018-08-09] MEDS: Miconazole 2% Cr 15gm TOPIC SCH (20:58)
--- NOTE | 2018-08-09 21:00 | NUR ---
NURSE NOTES: Noted redness at bilateral armpits, informed Dr. Cain. Received new order for Miconazole BID.
--- NOTE | 2018-08-09 21:45 | NUR ---
NURSE NOTES: Patient was seen and examined by Dr. Mackenzie, no new order at this time.
[2018-08-10] VITALS (24 sets, daily range): BP systolic 104–161; BP diastolic 48–103
--- NOTE | 2018-08-10 | NUR ---
NURSE NOTES: Patient passed moderate greenish to light brown soft stool. Bed bath, oral care done.
--- NOTE | 2018-08-10 02:00 | NUR ---
NURSE NOTES: Patient asleep. No shortness of breath.
--- NOTE | 2018-08-10 04:00 | NUR ---
NURSE NOTES: Patient repositioned. Secretions suctioned.
--- NOTE | 2018-08-10 06:00 | NUR ---
NURSE NOTES: Blood sugar 63mg/dl, patient awake and alert. D50 25ml given.
--- NOTE | 2018-08-10 06:30 | NUR ---
NURSE NOTES: Blood sugar rechecked: 90mg/dl
--- NOTE | 2018-08-10 07:10 | NUR ---
RESPIRATORY NOTE: Patient received mechanically ventilated on PB 840 with current ordered vent settings. Patient is orally intubated with ETT size 7.0 at 22cm at the lip line secured with an anchor fast. Patient presents with bilateral coarse breath sounds. Thick white secretions suctioned without incident. There is an ambu bag available the bedside and the vent is connected to a red outlet. Vent alarms are functional and audible. Will continue to monitor.
--- NOTE | 2018-08-10 07:19 | NUR ---
HAND-OFF: Report given to Luz Maria per SBAR.
--- NOTE | 2018-08-10 07:48 | NUR ---
NURSE NOTES: Report given by Ester
--- NOTE | 2018-08-10 07:48 | NUR ---
NURSE NOTES: Patient is currently non verbal ,orally intubated, currently on a weaning process. Patient has not had any feeding for 8days. WIll ask MD aguilar whether or not he wants to put in an OG tube or possible trach. Patient is alert and oriented x4, yesterday had dialysis HD removed 3L but still very edematous all over. Currently ventilator setting is cpap with pressure support of 10, since 7:30am.Has a wound wac on the left foot no drainage coming from the canister. GOal: wean successfully and possible feeding.
--- NOTE | 2018-08-10 08:18 | NUR ---
RD ASSESSMENT & RECOMMENDATIONS SEE CARE ACTIVITY FOR COMPLETE ASSESSMENT DAILY ESTIMATED NEEDS: Needs based on ESRD on HD, Wounds, CRITICAL CARE (Adj Wt 71kg) 22-28 kcals/kg 0197-0235 total kcals 1.25-2 g protein/kg 88-142 g total protein Fluid per MD, on HD NUTRITION DIAGNOSIS: 1) Increased kcal, pro needs R/T wound healing and renal dysfunction as evidenced by pt w/ left heel, sacral and lt ischial wounds, w/ ESRD on HD, currently NPO, s/p oral intubation. 2) Altered nutrition related lab values R/T diabetes, clinical condition as evidenced by pt now w/ hypoglycemic episodes, improved. CURRENT DIET: NPO PO DIET RECOMMENDATIONS: [facility] NUTRITION RECOMMENDATIONS: Nepro @ 40ml/hr x 24 hrs + Prosource x1 pack daily to provide 960ml, 1728kcal, 77g + 11g prot, 698ml free water * As medically appropriate, obtain GI access, initiate Nepro @ 10ml/hr x 6 hrs, advance 10ml q 4-6 hrs as tolerated to goal rate. * HOB over 30 degrees/ water flush per MD. ADDITIONAL RECOMMENDATIONS: 1) Rec to initiate TF to help prevent further episodes of hypoglycemia and remains orally intubated (NPO day 8 since intubation) 2) [employer] evaluation post extubation 3) Monitor BGs closely 4) Add Dimitry 1pkt BID for wound healing 6) Obtain dry wt post HD on a calibrated bed scale-> RE-CALIBRATE BED .
[2018-08-10] MEDS: Heparin 5000 units/ml inj SUBQ SCH ×2 (09:00→21:36)
[2018-08-10] MEDS: Losartan 25mg tab ORAL SCH (09:00)
[2018-08-10] MEDS: Aspirin Baby 81mg ORAL SCH (09:00)
[2018-08-10] MEDS: Docusate 100mg cap ORAL SCH ×3 (09:00→18:00)
[2018-08-10] MEDS: Nephrovite tab (Rena-Vite) ORAL SCH (09:00)
[2018-08-10] MEDS: Pantoprazole Inj IVP SCH (09:00)
[2018-08-10] MEDS: Miconazole 2% Cr 15gm TOPIC SCH ×2 (09:00→18:00)
[2018-08-10] MEDS: Colistin for inhalation INH SCH ×2 (09:53→21:38)
--- NOTE | 2018-08-10 11:14 | Infectious Diseases Prog Note ---
"Assessment/Plan Assessment/Plan A: 1. enterococcus | streptococcus UTI 2. pneumonia 3. diabetes mellitus 4. hypertension 5. renal failure on hemodialysis 6. history of left foot osteomyelitis &. Hypercapnic respiratory failure 9. Pleural effusion, more in R side 10. Acinetobacter pneumonia P 1. continue Colistin inhaler X 5 days Subjective ROS Limited/Unobtainable: Yes Respiratory: Reports: other - on weaning process Allergies: Coded Allergies: BENAZEPRIL (Verified Allergy, Unknown, 06/12/18) CODEINE (Verified Allergy, Unknown, 06/12/18) INSULIN ASPART (Verified Allergy, Unknown, 06/12/18) INSULIN DETEMIR (Verified Allergy, Unknown, 06/12/18) OPIOIDS - MORPHINE ANALOGUES (Verified Allergy, Unknown, 06/12/18) Objective Vital Signs Last 24 Hour Vital Signs Date Time Temp Pulse Resp B/P (MAP) Pulse Ox O2 Delivery O2 Flow Rate FiO2 08/10/18 10:47 68 19 40 08/10/18 10:03 76 20 100 Mechanical Ventilator 40 08/10/18 10:00 68 18 126/59 (81) 100 08/10/18 09:53 72 20 100 Mechanical Ventilator 40 08/10/18 09:00 123/67 08/10/18 09:00 66 18 126/59 (81) 100 08/10/18 08:57 100 08/10/18 08:50 69 17 40 08/10/18 08:00 98.3 64 18 123/67 (85) 100 08/10/18 08:00 66 08/10/18 08:00 Mechanical Ventilator Mechanical Ventilator 08/10/18 08:00 40 08/10/18 07:04 68 14 40 08/10/18 07:00 68 18 123/96 (105) 100 08/10/18 06:00 68 18 104/69 (81) 100 08/10/18 05:11 71 14 40 08/10/18 05:00 66 18 130/64 (86) 100 08/10/18 04:00 40 08/10/18 04:00 98.0 68 17 141/58 (85) 100 08/10/18 04:00 Mechanical Ventilator Mechanical Ventilator 08/10/18 04:00 71 08/10/18 03:30 69 16 40 08/10/18 03:00 67 14 130/58 (82) 100 08/10/18 02:00 68 19 135/48 (77) 100 08/10/18 01:24 70 20 40 08/10/18 01:00 68 15 141/58 (85) 100 08/10/18 00:00 97.9 69 16 122/58 (79) 100 08/10/18 00:00 70 08/10/18 00:00 Mechanical Ventilator Mechanical Ventilator 08/10/18 00:00 40 08/09/18 23:21 62 21 40 08/09/18 23:00 71 16 128/64 (85) 100 08/09/18 22:16 72 16 100 Mechanical Ventilator 40 08/09/18 22:00 65 16 100 Mechanical Ventilator 40 08/09/18 22:00 71 21 130/74 (92) 100 08/09/18 21:53 64 24 40 08/09/18 21:00 69 15 148/69 (95) 100 08/09/18 20:00 97.8 65 17 114/98 (103) 100 08/09/18 20:00 40 08/09/18 20:00 Mechanical Ventilator Mechanical Ventilator 08/09/18 20:00 66 08/09/18 19:30 68 29 40 08/09/18 19:00 40 08/09/18 19:00 68 17 127/59 (81) 100 08/09/18 18:00 69 17 124/56 (78) 100 08/09/18 17:16 67 17 40 08/09/18 17:00 68 17 105/59 (74) 100 08/09/18 16:00 69 08/09/18 16:00 64 08/09/18 16:00 40 08/09/18 16:00 97.2 69 16 111/53 (72) 100 08/09/18 16:00 Mechanical Ventilator Mechanical Ventilator 08/09/18 15:00 64 18 110/50 (70) 100 08/09/18 14:30 68 19 40 08/09/18 14:00 69 17 128/64 (85) 100 08/09/18 13:00 68 16 127/66 (86) 100 08/09/18 12:31 71 19 40 08/09/18 12:00 70 17 125/61 (82) 100 08/09/18 12:00 40 08/09/18 12:00 68 08/09/18 12:00 Mechanical Ventilator Mechanical Ventilator Height (Feet): 5 Height (Inches): 7.00 Weight (Pounds): 223 HEENT: other - orally intubated Respiratory/Chest: decreased breath sounds, other - on ventilator Cardiovascular: normal rate Abdomen: soft, non tender Extremities: no edema Neurologic/Psychiatric: disoriented Laboratory Tests Test 08/10/18 10:05 Arterial Blood pH 7.340 (7.350-7.450) Arterial Blood Partial Pressure CO2 56.7 mmHg (35.0-45.0) *H Arterial Blood Partial Pressure O2 147.5 mmHg (75.0-100.0) H Arterial Blood HCO3 29.9 mmol/L (22.0-26.0) H Arterial Blood Oxygen Saturation 98.8 % (95-100) Arterial Blood Base Excess 3.3 (-2-2) H Nicola Test Positive Current Medications Medications (Trade) Dose Ordered Sig/Andre Route PRN Reason Start Time Stop Time Status Last Admin Dose Admin Acetaminophen (Tylenol) 650 mg Q6H PRN ORAL Mild Pain/Temp > 100.5 08/02/18 11:45 08/16/18 23:44 Aspirin (ASA) 81 mg DAILY ORAL 08/02/18 12:30 09/01/18 12:29 08/07/18 08:31 Colistimethate Sodium (Colistin *inhalation use only*) 75 mg Q12HR@10,22 INH 08/07/18 22:00 08/15/18 23:00 08/10/18 09:53 Dextrose 1,000 ml @ 30 mls/hr Q24H IV 08/03/18 13:00 09/02/18 12:59 08/09/18 01:57 Dextrose (Dextrose 50%) 25 ml Q30M PRN IV Hypoglycemia 08/02/18 12:00 08/17/18 11:59 08/10/18 06:10 Dextrose (Dextrose 50%) 50 ml Q30M PRN IV Hypoglycemia 08/02/18 12:00 08/17/18 11:59 08/03/18 11:30 Diphenoxylate HCl/ Atropine (Lomotil) 2.5 mg Q4H PRN ORAL Diarrhea 08/02/18 12:30 08/29/18 12:29 Docusate Sodium (Colace) 100 mg THREE TIMES A DAY ORAL 08/02/18 13:00 08/17/18 08:59 08/07/18 08:32 Epoetin Marcus (Procrit (for ESRD on dialysis)) 10,000 units -TUE SUBQ 08/04/18 21:00 08/18/18 20:59 08/09/18 20:36 Heparin Sodium (Porcine) (Heparin 5000 units/ml) 5,000 units EVERY 12 HOURS SUBQ 08/02/18 21:00 08/17/18 08:59 08/10/18 09:00 Losartan Potassium (Cozaar) 25 mg DAILY ORAL 08/10/18 09:00 09/09/18 08:59 Miconazole Nitrate (Monistat-Derm) 1 applic TWICE A DAY TOPIC 08/09/18 21:30 09/08/18 21:29 08/10/18 09:00 Pantoprazole (Protonix) 40 mg DAILY IVP 08/03/18 09:00 09/02/18 08:59 08/10/18 09:00 Polyethylene Glycol (Miralax) 17 gm DAILYPRN PRN ORAL Constipation 08/02/18 13:00 08/26/18 12:59 Sennosides (Senokot) 17.2 mg QHS ORAL 08/02/18 21:00 08/17/18 20:59 08/04/18 20:34 Vitamin B Complex/ Vit C/Folic Acid (Nephrovite) 1 tab DAILY ORAL 08/02/18 13:00 09/01/18 12:59 08/07/18 08:31 Joe Melgar MD Aug 10, 2018 11:14"
--- NOTE | 2018-08-10 12:20 | Critical Care Progress Note ---
Assessment/Plan Assessment/Plan IMPRESSION: 1. Acute on chronic respiratory failure. 2. Acute hypercapnia, resolved with positive pressure ventilation 3. Hypoxemia. 4. Bilateral pleural effusions. and pulmonary edema 5. Fluid overload. 6. End-stage renal disease. 7. Severe protein-calorie malnutrition. 8. Anemia. 9. Thrombocytopenia. 10. Mild coagulopathy. 11. acute on chronic encephalopathy PLAN likely needs trach with poor baseline likely has obesity hypoventilation would recommend to proceed and place in subacute will try to wean again as able monitor acid base sedation off- reduce in hopes of wean will follow up for change and monitor clinically nutrition as able and aspiration precautions keep negative as per renal and cards medications/laboratory data/nursing notes/ICU care reviewed in detail note reviewed and edited care discussed with RN and RT ICU time spent 38 minutes Critical Care - Subjective Interval Events: was weaning but called that she was tired and put back to AC ROS Limited/Unobtainable: Yes Condition: critical EKG Rhythm: Sinus Rhythm Residuals: minimal Tube Feeding Tolerated: yes I&O: Intake and Output 08/09/18 08/10/18 18:59 06:59 Intake Total 360 ml 360 ml Output Total 3000 ml 0 ml Balance -2640 ml 360 ml IV Total 360 ml 360 ml Output Urine Total 0 ml 0 ml Hemodialysis UF 3000 ml # Bowel Movements 3 2 Critical Care - Objective CXR: worsening edema ET-Tube: 7.0 ET Position: 22 Last 24 Hour Vital Signs Date Time Temp Pulse Resp B/P (MAP) Pulse Ox O2 Delivery O2 Flow Rate FiO2 08/10/18 10:47 68 19 40 08/10/18 10:03 76 20 100 Mechanical Ventilator 40 08/10/18 10:00 68 18 126/59 (81) 100 08/10/18 09:53 72 20 100 Mechanical Ventilator 40 08/10/18 09:00 123/67 08/10/18 09:00 66 18 126/59 (81) 100 08/10/18 08:57 100 08/10/18 08:50 69 17 40 08/10/18 08:00 98.3 64 18 123/67 (85) 100 08/10/18 08:00 66 08/10/18 08:00 Mechanical Ventilator Mechanical Ventilator 08/10/18 08:00 40 08/10/18 07:04 68 14 40 08/10/18 07:00 68 18 123/96 (105) 100 1/17/19 06:00 68 18 104/69 (81) 100 08/10/18 05:11 71 14 40 08/10/18 05:00 66 18 130/64 (86) 100 08/10/18 04:00 40 08/10/18 04:00 98.0 68 17 141/58 (85) 100 08/10/18 04:00 Mechanical Ventilator Mechanical Ventilator 08/10/18 04:00 71 08/10/18 03:30 69 16 40 08/10/18 03:00 67 14 130/58 (82) 100 08/10/18 02:00 68 19 135/48 (77) 100 08/10/18 01:24 70 20 40 08/10/18 01:00 68 15 141/58 (85) 100 08/10/18 00:00 97.9 69 16 122/58 (79) 100 08/10/18 00:00 70 08/10/18 00:00 Mechanical Ventilator Mechanical Ventilator 08/10/18 00:00 40 08/09/18 23:21 62 21 40 08/09/18 23:00 71 16 128/64 (85) 100 08/09/18 22:16 72 16 100 Mechanical Ventilator 40 08/09/18 22:00 65 16 100 Mechanical Ventilator 40 08/09/18 22:00 71 21 130/74 (92) 100 08/09/18 21:53 64 24 40 08/09/18 21:00 69 15 148/69 (95) 100 08/09/18 20:00 97.8 65 17 114/98 (103) 100 08/09/18 20:00 40 08/09/18 20:00 Mechanical Ventilator Mechanical Ventilator 08/09/18 20:00 66 08/09/18 19:30 68 29 40 08/09/18 19:00 40 08/09/18 19:00 68 17 127/59 (81) 100 08/09/18 18:00 69 17 124/56 (78) 100 08/09/18 17:16 67 17 40 08/09/18 17:00 68 17 105/59 (74) 100 08/09/18 16:00 69 08/09/18 16:00 64 08/09/18 16:00 40 08/09/18 16:00 97.2 69 16 111/53 (72) 100 08/09/18 16:00 Mechanical Ventilator Mechanical Ventilator 08/09/18 15:00 64 18 110/50 (70) 100 08/09/18 14:30 68 19 40 08/09/18 14:00 69 17 128/64 (85) 100 08/09/18 13:00 68 16 127/66 (86) 100 08/09/18 12:31 71 19 40 Labs: Labs Test 08/07/18 16:30 08/09/18 04:50 08/10/18 10:05 Arterial Blood pH 7.367 (7.350-7.450) 7.340 (7.350-7.450) Arterial Blood Partial Pressure CO2 53.5 mmHg (35.0-45.0) 56.7 mmHg (35.0-45.0) Arterial Blood Partial Pressure O2 52.3 mmHg (75.0-100.0) 147.5 mmHg (75.0-100.0) Arterial Blood HCO3 30.0 mmol/L (22.0-26.0) 29.9 mmol/L (22.0-26.0) Arterial Blood Oxygen Saturation 84.0 % (95-100) 98.8 % (95-100) Arterial Blood Base Excess 4 (-2-2) 3.3 (-2-2) Nicola Test Positive Positive White Blood Count 4.3 K/UL (4.8-10.8) Red Blood Count 3.22 M/UL (4.20-5.40) Hemoglobin 8.7 G/DL (12.0-16.0) Hematocrit 29.7 % (37.0-47.0) Mean Corpuscular Volume 92 FL (80-99) Mean Corpuscular Hemoglobin 27.2 PG (27.0-31.0) Mean Corpuscular Hemoglobin Concent 29.5 G/DL (32.0-36.0) Red Cell Distribution Width 17.2 % (11.6-14.8) Platelet Count 101 K/UL (150-450) Mean Platelet Volume 7.9 FL (6.5-10.1) Neutrophils (%) (Auto) 55.8 % (45.0-75.0) Lymphocytes (%) (Auto) 23.8 % (20.0-45.0) Monocytes (%) (Auto) 12.0 % (1.0-10.0) Eosinophils (%) (Auto) 6.8 % (0.0-3.0) Basophils (%) (Auto) 1.7 % (0.0-2.0) Sodium Level 137 MMOL/L (136-145) Potassium Level 4.0 MMOL/L (3.5-5.1) Chloride Level 101 MMOL/L (98-107) Carbon Dioxide Level 28 MMOL/L (21-32) Anion Gap 9 mmol/L (5-15) Blood Urea Nitrogen 18 mg/dL (7-18) Creatinine 4.4 MG/DL (0.55-1.30) Estimat Glomerular Filtration Rate 12.0 mL/min (>60) Glucose Level 70 MG/DL (74-106) Calcium Level 8.7 MG/DL (8.5-10.1) Objective: WDWN NAD orally intubated reduced breath sounds bilaterally without rhonchi or wheeze [id number] without MRG NABS nontender no HSM; feeding tube no CC edema nonfocal and altered skin exam Accucheck: 90 Gustavo Rolon MD Aug 10, 2018 12:20
[2018-08-10] MEDS: Dextrose 10% 1,000 ML IV SCH (13:00)
--- NOTE | 2018-08-10 16:06 | Nephrology Progress Note ---
Assessment/Plan Plan VDRF. B pleural Effusion. Severe CHF. DW Dr. Daley! Try to alleviate. 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 On IV Abx per ID. HD MWF. Increase UF on HD. Try to wean off vent. Maintain euglycemia with IV D5 0.45 NS. Trying to wean off vent. SAVANAH Rolon. Difficult to wean. We'll keep trying. Subjective Subjective Intubated, On vent. In ICU. Objective Objective Last 24 Hour Vital Signs Date Time Temp Pulse Resp B/P (MAP) Pulse Ox O2 Delivery O2 Flow Rate FiO2 08/10/18 15:11 72 15 40 08/10/18 13:15 74 23 40 08/10/18 12:00 Mechanical Ventilator Mechanical Ventilator 08/10/18 12:00 40 08/10/18 10:47 68 19 40 08/10/18 10:03 76 20 100 Mechanical Ventilator 40 08/10/18 10:00 68 18 126/59 (81) 100 08/10/18 09:53 72 20 100 Mechanical Ventilator 40 08/10/18 09:00 123/67 08/10/18 09:00 66 18 126/59 (81) 100 08/10/18 08:57 100 08/10/18 08:50 69 17 40 08/10/18 08:00 98.3 64 18 123/67 (85) 100 08/10/18 08:00 66 08/10/18 08:00 Mechanical Ventilator Mechanical Ventilator 08/10/18 08:00 40 08/10/18 07:04 68 14 40 08/10/18 07:00 68 18 123/96 (105) 100 08/10/18 06:00 68 18 104/69 (81) 100 08/10/18 05:11 71 14 40 08/10/18 05:00 66 18 130/64 (86) 100 08/10/18 04:00 40 08/10/18 04:00 98.0 68 17 141/58 (85) 100 08/10/18 04:00 Mechanical Ventilator Mechanical Ventilator 08/10/18 04:00 71 08/10/18 03:30 69 16 40 08/10/18 03:00 67 14 130/58 (82) 100 08/10/18 02:00 68 19 135/48 (77) 100 08/10/18 01:24 70 20 40 08/10/18 01:00 68 15 141/58 (85) 100 08/10/18 00:00 97.9 69 16 122/58 (79) 100 08/10/18 00:00 70 08/10/18 00:00 Mechanical Ventilator Mechanical Ventilator 08/10/18 00:00 40 08/09/18 23:21 62 21 40 08/09/18 23:00 71 16 128/64 (85) 100 08/09/18 22:16 72 16 100 Mechanical Ventilator 40 08/09/18 22:00 65 16 100 Mechanical Ventilator 40 08/09/18 22:00 71 21 130/74 (92) 100 08/09/18 21:53 64 24 40 08/09/18 21:00 69 15 148/69 (95) 100 08/09/18 20:00 97.8 65 17 114/98 (103) 100 08/09/18 20:00 40 08/09/18 20:00 Mechanical Ventilator Mechanical Ventilator 08/09/18 20:00 66 08/09/18 19:30 68 29 40 08/09/18 19:00 40 08/09/18 19:00 68 17 127/59 (81) 100 08/09/18 18:00 69 17 124/56 (78) 100 08/09/18 17:16 67 17 40 08/09/18 17:00 68 17 105/59 (74) 100 Intake and Output 08/09/18 08/10/18 19:00 07:00 Intake Total 360 ml 330 ml Output Total 3000 ml 0 ml Balance -2640 ml 330 ml IV Total 360 ml 330 ml Output Urine Total 0 ml 0 ml Hemodialysis UF 3000 ml # Bowel Movements 3 2 Laboratory Tests 08/10/18 10:05: Arterial Blood pH 7.340L, Arterial Blood Partial Pressure CO2 56.7*H, Arterial Blood Partial Pressure O2 147.5H, Arterial Blood HCO3 29.9H, Arterial Blood Oxygen Saturation 98.8, Arterial Blood Base Excess 3.3H, Nicola Test Positive Height (Feet): 5 Height (Inches): 7.00 Weight (Pounds): 223 Objective Intubated, On vent. Blind CV RR Lungs CTA Abd SNT. BS + E No CCE Neuro:Alert, nonfocal. Brenda Fuller MD Aug 10, 2018 16:06
--- NOTE | 2018-08-10 19:37 | NUR ---
RESPIRATORY NOTE: Pt was received stable on vent settings AC 14, 500 VT, 40%, PEEP +5. ET tube secured by anchorfast. Vent plugged into red outlet. No respiratory distress noted. Will continue to monitor closely.
--- NOTE | 2018-08-10 19:45 | NUR ---
NURSE NOTES: Endorsement received from CHAPIS Loera. Patient opens eyes spontaneously, follows commands. Orally intubated with ET 7.0, level 22.5 AC14,TV500,Fi02 40%,peep 5. HOB elevated. With right upper arm shunt. Left hand g 20 with good backflow. Ongoing D10W 30ml/hr. With left foot wound vacc, no drainage in the canister. Right BKA. Kept elevated. Head of bed elevated. Bed locked and in low position. Bed alarm on. instructed patient to use call light for assistance. Contact isolation maintained and observed. no s/s of hypo/hyperglycemia. Will continue plan of care.
--- NOTE | 2018-08-10 20:29 | Cardiology Progress Note ---
Assessment/Plan Assessment/Plan today she was on Cpap for a long time her Bp is stable, hopefully will be extubated tomorrow Subjective Subjective The patient is alert, slightly agitated, intubated, trying to say something Objective Last 24 Hour Vital Signs Date Time Temp Pulse Resp B/P (MAP) Pulse Ox O2 Delivery O2 Flow Rate FiO2 08/10/18 19:37 71 14 40 08/10/18 19:00 70 18 134/63 (86) 100 08/10/18 18:00 73 18 161/103 (122) 100 08/10/18 17:25 77 15 40 08/10/18 17:00 75 18 143/60 (87) 100 08/10/18 16:00 71 08/10/18 16:00 Mechanical Ventilator Mechanical Ventilator 08/10/18 16:00 74 18 147/94 (111) 100 08/10/18 16:00 40 08/10/18 15:11 72 15 40 08/10/18 15:00 98.5 72 18 142/63 (89) 100 08/10/18 14:00 72 18 145/64 (91) 100 08/10/18 13:15 74 23 40 08/10/18 13:00 71 18 141/70 (93) 100 08/10/18 12:00 68 18 142/70 (94) 100 08/10/18 12:00 Mechanical Ventilator Mechanical Ventilator 08/10/18 12:00 70 08/10/18 12:00 40 08/10/18 11:00 69 18 129/63 (85) 100 08/10/18 10:47 68 19 40 08/10/18 10:03 76 20 100 Mechanical Ventilator 40 08/10/18 10:00 68 18 126/59 (81) 100 08/10/18 09:53 72 20 100 Mechanical Ventilator 40 08/10/18 09:00 123/67 08/10/18 09:00 66 18 126/59 (81) 100 08/10/18 08:57 100 08/10/18 08:50 69 17 40 08/10/18 08:00 98.3 64 18 123/67 (85) 100 08/10/18 08:00 66 08/10/18 08:00 Mechanical Ventilator Mechanical Ventilator 08/10/18 08:00 40 08/10/18 07:04 68 14 40 08/10/18 07:00 68 18 123/96 (105) 100 08/10/18 06:00 68 18 104/69 (81) 100 08/10/18 05:11 71 14 40 08/10/18 05:00 66 18 130/64 (86) 100 08/10/18 04:00 40 08/10/18 04:00 98.0 68 17 141/58 (85) 100 08/10/18 04:00 Mechanical Ventilator Mechanical Ventilator 08/10/18 04:00 71 08/10/18 03:30 69 16 40 08/10/18 03:00 67 14 130/58 (82) 100 08/10/18 02:00 68 19 135/48 (77) 100 08/10/18 01:24 70 20 40 08/10/18 01:00 68 15 141/58 (85) 100 08/10/18 00:00 97.9 69 16 122/58 (79) 100 08/10/18 00:00 70 08/10/18 00:00 Mechanical Ventilator Mechanical Ventilator 08/10/18 00:00 40 08/09/18 23:21 62 21 40 08/09/18 23:00 71 16 128/64 (85) 100 08/09/18 22:16 72 16 100 Mechanical Ventilator 40 08/09/18 22:00 65 16 100 Mechanical Ventilator 40 08/09/18 22:00 71 21 130/74 (92) 100 08/09/18 21:53 64 24 40 08/09/18 21:00 69 15 148/69 (95) 100 General Appearance: on vent EENT: other Neck: JVD Rhythm: NSR Cardiovascular: normal rate, systolic murmur Respiratory/Chest: decreased breath sounds, crackles/rales Abdomen: guarding Extremities: other Intake and Output 08/09/18 08/10/18 19:00 07:00 Intake Total 360 ml 330 ml Output Total 3000 ml 0 ml Balance -2640 ml 330 ml IV Total 360 ml 330 ml Output Urine Total 0 ml 0 ml Hemodialysis UF 3000 ml # Bowel Movements 3 2 Laboratory Tests Test 08/10/18 10:05 Arterial Blood pH 7.340 (7.350-7.450) Arterial Blood Partial Pressure CO2 56.7 mmHg (35.0-45.0) *H Arterial Blood Partial Pressure O2 147.5 mmHg (75.0-100.0) H Arterial Blood HCO3 29.9 mmol/L (22.0-26.0) H Arterial Blood Oxygen Saturation 98.8 % (95-100) Arterial Blood Base Excess 3.3 (-2-2) H Nicola Test Positive Clarisse Daley MD Aug 10, 2018 20:29
[2018-08-10] MEDS: Sennosides 8.6mg tab ORAL SCH ×2 (21:28→21:36)
--- NOTE | 2018-08-10 21:30 | NUR ---
NURSE NOTES: no s/s of hypo/hyperglycemia.Blood glucose 71mg/dl. Will continue plan of care.
--- NOTE | 2018-08-10 22:30 | NUR ---
NURSE NOTES: Repositioned patient. Patient with X1 greenish small BM, kept clean and dry. Patient able to hold on the side rails while turning. Denies any pain or discomfort. Skin warm and dry to touch. Suctioned. Mouth care rendered. Call light within easy reach. Will continue to monitor patient.
[2018-08-11] VITALS (24 sets, daily range): BP systolic 122–153; BP diastolic 54–82
--- NOTE | 2018-08-11 | NUR ---
HAND-OFF: Report given to CHAPIS Buchanan.
--- NOTE | 2018-08-11 02:10 | NUR ---
HAND-OFF: Report given to Georgette NATION using SBAR. Pt sleeping at this time. No signs of distress
--- NOTE | 2018-08-11 02:15 | NUR ---
NURSE NOTES: Received patient from CHAPIS BRODERICK. Asleep in bed with no sign of acute distress noted. on vent dependent with ETT 7.0 mode on AC 14 TV 500 FIO2 40% PEEP 5 and sating 100%. SR on monitor. vs stable. afebrile. keep NPO .no facial grimace or moaning noted. AV shunt on RADHA with presence of bruit and thrill.IV to LH G 20 intact D10W running at 30cc/hr. Anuric.call light in reach. bed in locked and lowest position. safety measures continued. keep patient comfortable.
--- NOTE | 2018-08-11 04:34 | NUR ---
NURSE NOTES: Performed sponge bath . no Bowel movement. Anuric. Turned and repositioned with pillows support. keep skin clean and dry.dressing with wound vac on left heel is dry and intact.
--- NOTE | 2018-08-11 06:05 | NUR ---
NURSE NOTES: BS 64mg/dl.Given D50 25ml IVP as ordered. patient asleep but easily awakened by touch.
--- NOTE | 2018-08-11 06:50 | NUR ---
NURSE NOTES: Rechecked BS 85 mg/dl post D50 25ml IVP.
--- NOTE | 2018-08-11 07:13 | NUR ---
HAND-OFF: Report given to CHAPIS MONTEZ using SBAR.Patient remains stable condition with no sign of acute distress noted.
[2018-08-11 07:40] LABS: BASOPHILS % (AUTO) 0.7 % (0.0-2.0); EOSINOPHILS % (AUTO) 7.2 % (0.0-3.0); HEMATOCRIT 29.5 % (37.0-47.0); HEMOGLOBIN 8.8 G/DL (12.0-16.0); MEAN CORPUSCULAR VOLUME 92 FL (80-99); MONOCYTES % (AUTO) 15.4 % (1.0-10.0); NEUTROPHILS % (AUTO) 54.7 % (45.0-75.0); PLATELET COUNT 142 K/UL (150-450); RED BLOOD COUNT 3.21 M/UL (4.20-5.40); RED CELL DISTRIBUTION WIDTH 17.2 % (11.6-14.8); WHITE BLOOD COUNT 4.2 K/UL (4.8-10.8)
[2018-08-11 07:51] LABS: ALANINE AMINOTRANSFERASE 7 U/L (12-78); ALBUMIN 1.7 G/DL (3.4-5.0); ALBUMIN/GLOBULIN RATIO 0.3 (1.0-2.7); ALKALINE PHOSPHATASE 140 U/L (46-116); ANION GAP 9 mmol/L (5-15); ASPARTATE AMINO TRANSFERASE 12 U/L (15-37); BILIRUBIN,TOTAL 0.5 MG/DL (0.2-1.0); BLOOD UREA NITROGEN 13 mg/dL (7-18); CALCIUM 8.5 MG/DL (8.5-10.1); CARBON DIOXIDE 27 MMOL/L (21-32); CHLORIDE 102 MMOL/L (98-107); CREATININE 4.3 MG/DL (0.55-1.30); POTASSIUM 3.4 MMOL/L (3.5-5.1); SODIUM 138 MMOL/L (136-145)
--- NOTE | 2018-08-11 08:00 | NUR ---
NURSE NOTES: Report received from CHAPIS Palomino.Pt awake with no apparent s/s acute distress. Legally blind and afebrile at this time.ETT in place and settings: AC 14, VT 500, FIO2 40% and PEEP of 5.Remains NPO at this time due to risk for aspiration, will follow up with Dr De Leon. AV shunt RADHA with bruit and thrill present.Right BKA with left heel wound Vac, no drainage noted at this time.Left hand 20 gauge running D10%W at 30ML/HR with no signs infiltration noted.HOB elevated to prevent aspiration, mouth care done.Kept clean dry and comfortable.Will continue to monitor.
[2018-08-11] MEDS: Losartan 25mg tab ORAL SCH (08:59)
[2018-08-11] MEDS: Docusate 100mg cap ORAL SCH ×3 (08:59→18:00)
[2018-08-11] MEDS: Aspirin Baby 81mg ORAL SCH (08:59)
[2018-08-11] MEDS: Pantoprazole Inj IVP SCH (08:59)
[2018-08-11] MEDS: Miconazole 2% Cr 15gm TOPIC SCH ×2 (09:00→18:00)
[2018-08-11] MEDS: Nephrovite tab (Rena-Vite) ORAL SCH (09:00)
[2018-08-11] MEDS: Heparin 5000 units/ml inj SUBQ SCH ×2 (09:03→20:49)
--- NOTE | 2018-08-11 09:23 | NUR ---
NURSE NOTES: pt placed on SIMV 10/10 an last only 10mn, placed back on AC mode
--- NOTE | 2018-08-11 09:33 | NUR ---
RESPIRATORY NOTE:Weaned pt @ 0923 on cpap psv 8 peep 5 fio2 40%. pt lasted 10 mins and put back on ac. RN notified of changes.
--- NOTE | 2018-08-11 10:10 | NUR ---
NURSE NOTES: Asleep at this time.Turned and repositioned.Kept clean and dry.Will continue to monitor.
[2018-08-11] MEDS: Colistin for inhalation INH SCH ×2 (10:51→21:26)
--- NOTE | 2018-08-11 11:16 | Infectious Diseases Prog Note ---
"Assessment/Plan Assessment/Plan antibiotics ; inhaled colistin 1.13.19 - A 1. enterococcus | streptococcus UTI s/p rx 2. acenitobacter pneumonia 3. diabetes mellitus 4. hypertension 5. renal failure on hemodialysis 6. history of left foot osteomyelitis 7. respiratory failure P 1. continue inhaled colistin 4 more days 2. will follow up cultures Subjective ROS Limited/Unobtainable: Yes Allergies: Coded Allergies: BENAZEPRIL (Verified Allergy, Unknown, 06/12/18) CODEINE (Verified Allergy, Unknown, 06/12/18) INSULIN ASPART (Verified Allergy, Unknown, 06/12/18) INSULIN DETEMIR (Verified Allergy, Unknown, 06/12/18) OPIOIDS - MORPHINE ANALOGUES (Verified Allergy, Unknown, 06/12/18) Objective Vital Signs Last 24 Hour Vital Signs Date Time Temp Pulse Resp B/P (MAP) Pulse Ox O2 Delivery O2 Flow Rate FiO2 08/11/18 11:00 73 19 100 Mechanical Ventilator 40 08/11/18 10:51 70 22 100 Mechanical Ventilator 40 08/11/18 10:49 70 16 40 08/11/18 10:00 70 15 137/68 (91) 100 08/11/18 09:23 69 11 40 08/11/18 09:23 100 08/11/18 09:00 70 15 134/66 (88) 100 08/11/18 09:00 71 08/11/18 08:59 153/82 08/11/18 08:00 Mechanical Ventilator Mechanical Ventilator 08/11/18 08:00 98.5 70 19 153/82 (105) 100 08/11/18 08:00 40 08/11/18 07:40 72 16 40 08/11/18 07:00 70 15 141/66 (91) 100 08/11/18 06:00 69 16 140/68 (92) 100 08/11/18 05:00 71 15 147/67 (93) 100 08/11/18 04:57 74 13 40 08/11/18 04:00 40 08/11/18 04:00 98.1 72 18 127/80 (96) 100 08/11/18 04:00 73 08/11/18 04:00 Mechanical Ventilator Mechanical Ventilator 08/11/18 03:22 72 13 40 08/11/18 03:00 70 18 143/54 (83) 100 08/11/18 02:00 71 14 143/70 (94) 100 08/11/18 01:32 75 15 40 08/11/18 01:00 71 14 146/65 (92) 100 08/11/18 00:00 69 08/11/18 00:00 97.9 68 16 148/67 (94) 100 08/11/18 00:00 Mechanical Ventilator Mechanical Ventilator 08/11/18 00:00 40 08/10/18 23:05 67 16 40 08/10/18 23:00 69 13 136/57 (83) 100 08/10/18 22:08 70 19 100 Mechanical Ventilator 40 08/10/18 22:00 70 18 140/70 (93) 100 08/10/18 21:51 68 19 100 Mechanical Ventilator 40 08/10/18 21:08 67 14 40 08/10/18 21:00 69 14 134/60 (84) 100 08/10/18 20:00 97.7 69 17 145/66 (92) 100 08/10/18 20:00 Mechanical Ventilator Mechanical Ventilator 08/10/18 20:00 40 08/10/18 20:00 66 08/10/18 19:37 71 14 40 08/10/18 19:00 70 18 134/63 (86) 100 08/10/18 18:00 73 18 161/103 (122) 100 08/10/18 17:25 77 15 40 08/10/18 17:00 75 18 143/60 (87) 100 08/10/18 16:00 71 08/10/18 16:00 Mechanical Ventilator Mechanical Ventilator 08/10/18 16:00 74 18 147/94 (111) 100 08/10/18 16:00 40 08/10/18 15:11 72 15 40 08/10/18 15:00 98.5 72 18 142/63 (89) 100 08/10/18 14:00 72 18 145/64 (91) 100 08/10/18 13:15 74 23 40 08/10/18 13:00 71 18 141/70 (93) 100 08/10/18 12:00 68 18 142/70 (94) 100 08/10/18 12:00 Mechanical Ventilator Mechanical Ventilator 08/10/18 12:00 70 08/10/18 12:00 40 Height (Feet): 5 Height (Inches): 7.00 Weight (Pounds): 224 HEENT: other - intubated Respiratory/Chest: lungs clear Cardiovascular: normal rate, regular rhythm, no gallop/murmur Abdomen: soft, non tender Extremities: no edema, other - right stump clean, left foot VAC Laboratory Tests Test 08/11/18 06:25 White Blood Count 4.2 K/UL (4.8-10.8) L Red Blood Count 3.21 M/UL (4.20-5.40) L Hemoglobin 8.8 G/DL (12.0-16.0) L Hematocrit 29.5 % (37.0-47.0) L Mean Corpuscular Volume 92 FL (80-99) Mean Corpuscular Hemoglobin 27.3 PG (27.0-31.0) Mean Corpuscular Hemoglobin Concent 29.7 G/DL (32.0-36.0) L Red Cell Distribution Width 17.2 % (11.6-14.8) H Platelet Count 142 K/UL (150-450) L Mean Platelet Volume 8.1 FL (6.5-10.1) Neutrophils (%) (Auto) 54.7 % (45.0-75.0) Lymphocytes (%) (Auto) 22.0 % (20.0-45.0) Monocytes (%) (Auto) 15.4 % (1.0-10.0) H Eosinophils (%) (Auto) 7.2 % (0.0-3.0) H Basophils (%) (Auto) 0.7 % (0.0-2.0) Sodium Level 138 MMOL/L (136-145) Potassium Level 3.4 MMOL/L (3.5-5.1) L Chloride Level 102 MMOL/L (98-107) Carbon Dioxide Level 27 MMOL/L (21-32) Anion Gap 9 mmol/L (5-15) Blood Urea Nitrogen 13 mg/dL (7-18) Creatinine 4.3 MG/DL (0.55-1.30) H Estimat Glomerular Filtration Rate 12.4 mL/min (>60) Glucose Level 98 MG/DL (74-106) Calcium Level 8.5 MG/DL (8.5-10.1) Total Bilirubin 0.5 MG/DL (0.2-1.0) Aspartate Amino Transf (AST/SGOT) 12 U/L (15-37) L Alanine Aminotransferase (ALT/SGPT) 7 U/L (12-78) L Alkaline Phosphatase 140 U/L (46-116) H Total Protein 6.6 G/DL (6.4-8.2) Albumin 1.7 G/DL (3.4-5.0) L Globulin 4.9 g/dL Albumin/Globulin Ratio 0.3 (1.0-2.7) L Current Medications Medications (Trade) Dose Ordered Sig/Andre Route PRN Reason Start Time Stop Time Status Last Admin Dose Admin Acetaminophen (Tylenol) 650 mg Q6H PRN ORAL Mild Pain/Temp > 100.5 08/02/18 11:45 08/16/18 23:44 Aspirin (ASA) 81 mg DAILY ORAL 08/02/18 12:30 09/01/18 12:29 08/07/18 08:31 Colistimethate Sodium (Colistin *inhalation use only*) 75 mg Q12HR@10,22 INH 08/07/18 22:00 08/15/18 23:00 08/11/18 10:51 Dextrose 1,000 ml @ 30 mls/hr Q24H IV 08/03/18 13:00 09/02/18 12:59 08/10/18 13:00 Dextrose (Dextrose 50%) 25 ml Q30M PRN IV Hypoglycemia 08/02/18 12:00 08/17/18 11:59 08/11/18 06:03 Dextrose (Dextrose 50%) 50 ml Q30M PRN IV Hypoglycemia 08/02/18 12:00 08/17/18 11:59 08/03/18 11:30 Diphenoxylate HCl/ Atropine (Lomotil) 2.5 mg Q4H PRN ORAL Diarrhea 08/02/18 12:30 08/29/18 12:29 Docusate Sodium (Colace) 100 mg THREE TIMES A DAY ORAL 08/02/18 13:00 08/17/18 08:59 08/10/18 18:00 Epoetin Marcus (Procrit (for ESRD on dialysis)) 10,000 units TUE-TUE-TUE SUBQ 08/04/18 21:00 08/18/18 20:59 08/09/18 20:36 Heparin Sodium (Porcine) (Heparin 5000 units/ml) 5,000 units EVERY 12 HOURS SUBQ 08/02/18 21:00 08/17/18 08:59 08/11/18 09:03 Heparin Sodium (Porcine) (Heparin Sod 1000 units/ml 10ml) 2,000 unit ONCE IV 08/11/18 16:00 08/11/18 23:59 Losartan Potassium (Cozaar) 25 mg DAILY ORAL 08/10/18 09:00 09/09/18 08:59 Miconazole Nitrate (Monistat-Derm) 1 applic TWICE A DAY TOPIC 08/09/18 21:30 09/08/18 21:29 08/11/18 09:00 Pantoprazole (Protonix) 40 mg DAILY IVP 08/03/18 09:00 09/02/18 08:59 08/11/18 08:59 Polyethylene Glycol (Miralax) 17 gm DAILYPRN PRN ORAL Constipation 08/02/18 13:00 08/26/18 12:59 Sennosides (Senokot) 17.2 mg QHS ORAL 08/02/18 21:00 08/17/18 20:59 08/04/18 20:34 Sodium Chloride 1,000 ml @ 500 mls/hr Q2H PRN IVLG sbp<90 during hd 08/11/18 16:00 08/11/18 23:59 Vitamin B Complex/ Vit C/Folic Acid (Nephrovite) 1 tab DAILY ORAL 08/02/18 13:00 09/01/18 12:59 08/07/18 08:31 Naya Cain MD Aug 11, 2018 11:16"
[2018-08-11] MEDS: Dextrose 10% 1,000 ML IV SCH ×2 (12:25→19:00)
--- NOTE | 2018-08-11 12:46 | Pulmonolgy Critical Care Note ---
Critical Care - Asmt/Plan Assessment/Plan: Pulmonary CCM Progress Note Assessment/Plan IMPRESSION: 1. Acute on chronic respiratory failure. 2. Acute hypercapnia, resolved with positive pressure ventilation 3. Hypoxemia. 4. Bilateral pleural effusions. and pulmonary edema 5. Fluid overload. 6. End-stage renal disease. 7. Severe protein-calorie malnutrition. 8. Anemia. 9. Thrombocytopenia. 10. Mild coagulopathy. 11. acute on chronic encephalopathy PLAN likely needs trach with poor baseline likely has obesity hypoventilation would recommend to proceed and place in subacute will try to wean again as able monitor acid base sedation off- reduce in hopes of wean will follow up for change and monitor clinically nutrition as able and aspiration precautions keep negative as per renal and cards medications/laboratory data/nursing notes/ICU care reviewed in detail note reviewed and edited care discussed with RN and RT ICU time spent 38 minutes Objective Vital Signs Noted Objective: WDWN NAD orally intubated reduced breath sounds bilaterally without rhonchi or wheeze [id number] without MRG NABS nontender no HSM; feeding tube no CC edema nonfocal skin exam Critical Care - Subjective Interval Events: try to wean put back to AC ROS Limited/Unobtainable: Yes Condition: critical EKG Rhythm: Sinus Rhythm Residuals: minimal Tube Feeding Tolerated: yes Critical Care - Objective ET-Tube: 7.0 ET Position: 22 Labs Test 08/06/18 04:45 08/06/18 08:10 08/07/18 05:50 08/07/18 16:30 White Blood Count 5.2 K/UL (4.8-10.8) 5.3 K/UL (4.8-10.8) Red Blood Count 3.00 M/UL (4.20-5.40) 2.95 M/UL (4.20-5.40) Hemoglobin 8.3 G/DL (12.0-16.0) 8.0 G/DL (12.0-16.0) Hematocrit 27.2 % (37.0-47.0) 26.8 % (37.0-47.0) Mean Corpuscular Volume 91 FL (80-99) 91 FL (80-99) Mean Corpuscular Hemoglobin 27.6 PG (27.0-31.0) 27.2 PG (27.0-31.0) Mean Corpuscular Hemoglobin Concent 30.4 G/DL (32.0-36.0) 30.0 G/DL (32.0-36.0) Red Cell Distribution Width 17.8 % (11.6-14.8) 17.3 % (11.6-14.8) Platelet Count 160 K/UL (150-450) 154 K/UL (150-450) Mean Platelet Volume 10.4 FL (6.5-10.1) 9.8 FL (6.5-10.1) Neutrophils (%) (Auto) 61.9 % (45.0-75.0) 60.8 % (45.0-75.0) Lymphocytes (%) (Auto) 21.1 % (20.0-45.0) 19.7 % (20.0-45.0) Monocytes (%) (Auto) 9.3 % (1.0-10.0) 10.9 % (1.0-10.0) Eosinophils (%) (Auto) 7.2 % (0.0-3.0) 8.0 % (0.0-3.0) Basophils (%) (Auto) 0.5 % (0.0-2.0) 0.7 % (0.0-2.0) Sodium Level 136 MMOL/L (136-145) 134 MMOL/L (136-145) Potassium Level 3.9 MMOL/L (3.5-5.1) 3.7 MMOL/L (3.5-5.1) Chloride Level 102 MMOL/L (98-107) 101 MMOL/L (98-107) Carbon Dioxide Level 27 MMOL/L (21-32) 26 MMOL/L (21-32) Anion Gap 7 mmol/L (5-15) 7 mmol/L (5-15) Blood Urea Nitrogen 21 mg/dL (7-18) 22 mg/dL (7-18) Creatinine 4.2 MG/DL (0.55-1.30) 4.5 MG/DL (0.55-1.30) Estimat Glomerular Filtration Rate 12.7 mL/min (>60) 11.6 mL/min (>60) Glucose Level 70 MG/DL (74-106) 73 MG/DL (74-106) Calcium Level 8.8 MG/DL (8.5-10.1) 8.8 MG/DL (8.5-10.1) Magnesium Level 2.2 MG/DL (1.8-2.4) Arterial Blood pH 7.400 (7.350-7.450) 7.367 (7.350-7.450) Arterial Blood Partial Pressure CO2 39.8 mmHg (35.0-45.0) 53.5 mmHg (35.0-45.0) Arterial Blood Partial Pressure O2 197.0 mmHg (75.0-100.0) 52.3 mmHg (75.0-100.0) Arterial Blood HCO3 24.1 mmol/L (22.0-26.0) 30.0 mmol/L (22.0-26.0) Arterial Blood Oxygen Saturation 99.3 % (95-100) 84.0 % (95-100) Arterial Blood Base Excess -6.0 (-2-2) 4 (-2-2) Nicola Test Positive Positive Critical Care - Objective Last 24 Hour Vital Signs Date Time Temp Pulse Resp B/P (MAP) Pulse Ox O2 Delivery O2 Flow Rate FiO2 08/11/18 11:00 73 19 100 Mechanical Ventilator 40 08/11/18 11:00 70 14 150/79 (102) 100 08/11/18 10:51 70 22 100 Mechanical Ventilator 40 08/11/18 10:49 70 16 40 08/11/18 10:00 70 15 137/68 (91) 100 08/11/18 09:23 69 11 40 08/11/18 09:23 100 08/11/18 09:00 70 15 134/66 (88) 100 08/11/18 09:00 71 08/11/18 08:59 153/82 08/11/18 08:00 Mechanical Ventilator Mechanical Ventilator 08/11/18 08:00 98.5 70 19 153/82 (105) 100 08/11/18 08:00 40 08/11/18 07:40 72 16 40 08/11/18 07:00 70 15 141/66 (91) 100 08/11/18 06:00 69 16 140/68 (92) 100 08/11/18 05:00 71 15 147/67 (93) 100 08/11/18 04:57 74 13 40 08/11/18 04:00 40 08/11/18 04:00 98.1 72 18 127/80 (96) 100 1/18/19 04:00 73 08/11/18 04:00 Mechanical Ventilator Mechanical Ventilator 08/11/18 03:22 72 13 40 08/11/18 03:00 70 18 143/54 (83) 100 08/11/18 02:00 71 14 143/70 (94) 100 08/11/18 01:32 75 15 40 08/11/18 01:00 71 14 146/65 (92) 100 08/11/18 00:00 69 08/11/18 00:00 97.9 68 16 148/67 (94) 100 08/11/18 00:00 Mechanical Ventilator Mechanical Ventilator 08/11/18 00:00 40 08/10/18 23:05 67 16 40 08/10/18 23:00 69 13 136/57 (83) 100 08/10/18 22:08 70 19 100 Mechanical Ventilator 40 08/10/18 22:00 70 18 140/70 (93) 100 08/10/18 21:51 68 19 100 Mechanical Ventilator 40 08/10/18 21:08 67 14 40 08/10/18 21:00 69 14 134/60 (84) 100 08/10/18 20:00 97.7 69 17 145/66 (92) 100 08/10/18 20:00 Mechanical Ventilator Mechanical Ventilator 08/10/18 20:00 40 08/10/18 20:00 66 08/10/18 19:37 71 14 40 08/10/18 19:00 70 18 134/63 (86) 100 08/10/18 18:00 73 18 161/103 (122) 100 08/10/18 17:25 77 15 40 08/10/18 17:00 75 18 143/60 (87) 100 08/10/18 16:00 71 08/10/18 16:00 Mechanical Ventilator Mechanical Ventilator 08/10/18 16:00 74 18 147/94 (111) 100 08/10/18 16:00 40 08/10/18 15:11 72 15 40 08/10/18 15:00 98.5 72 18 142/63 (89) 100 08/10/18 14:00 72 18 145/64 (91) 100 08/10/18 13:15 74 23 40 08/10/18 13:00 71 18 141/70 (93) 100 Accucheck: 69 Critical Care - Subjective FI02: 40 Vent Support Breath Rate: 14 Vent Support Mode: AC Vent Tidal Volume: 500 Sputum Amount: Scant PEEP: 5.0 PIP: 37 I&O: Intake and Output 08/10/18 08/11/18 18:59 06:59 Intake Total 360 ml 340 ml Output Total 0 ml 0 ml Balance 360 ml 340 ml IV Total 360 ml 340 ml Output Urine Total 0 ml 0 ml # Bowel Movements 3 2 ET-Tube: 7.0 ET Position: 22 Joaquin Mackenzie MD Aug 11, 2018 12:46
--- NOTE | 2018-08-11 13:32 | NUR ---
CASE MANAGEMENT: REVIEW SI: ESRD . ACUTE ON CHRONIC RESPIRATORY FAILURE . T 98.5 HR 70 RR 19 BP 153/82 SAT 100% MECH VENT FIO2 40 WBC 4.2 H/H 8.8/29.5 IS: COLISTIN INH Q12HR PROCRIT SQ MWF PROTONIX IV QD COZAAR PO QD NPO ICU STATUS DCP: PATIENT IS FROM [facility]
--- NOTE | 2018-08-11 15:44 | Nephrology Progress Note ---
Assessment/Plan Plan VDRF. B pleural Effusion. Severe CHF. DW Dr. Daley! Try to alleviate. 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 On IV Abx per ID. HD MWF. Increase UF on HD. Try to wean off vent. Maintain euglycemia with IV D5 0.45 NS. Trying to wean off vent. SAVANAH Rolon. Difficult to wean. We'll keep trying. Subjective Subjective Intubated, On vent. In ICU. Objective Objective Last 24 Hour Vital Signs Date Time Temp Pulse Resp B/P (MAP) Pulse Ox O2 Delivery O2 Flow Rate FiO2 08/11/18 15:00 69 14 122/65 (84) 100 08/11/18 14:00 68 14 136/63 (87) 100 08/11/18 13:00 69 14 131/62 (85) 100 08/11/18 12:00 93 14 146/59 (88) 100 08/11/18 12:00 69 08/11/18 12:00 40 08/11/18 12:00 Mechanical Ventilator Mechanical Ventilator 08/11/18 11:00 73 19 100 Mechanical Ventilator 40 08/11/18 11:00 70 14 150/79 (102) 100 08/11/18 10:51 70 22 100 Mechanical Ventilator 40 08/11/18 10:49 70 16 40 08/11/18 10:00 70 15 137/68 (91) 100 08/11/18 09:23 69 11 40 08/11/18 09:23 100 08/11/18 09:00 70 15 134/66 (88) 100 08/11/18 09:00 71 08/11/18 08:59 153/82 08/11/18 08:00 Mechanical Ventilator Mechanical Ventilator 08/11/18 08:00 98.5 70 19 153/82 (105) 100 08/11/18 08:00 40 08/11/18 07:40 72 16 40 08/11/18 07:00 70 15 141/66 (91) 100 08/11/18 06:00 69 16 140/68 (92) 100 08/11/18 05:00 71 15 147/67 (93) 100 08/11/18 04:57 74 13 40 08/11/18 04:00 40 08/11/18 04:00 98.1 72 18 127/80 (96) 100 08/11/18 04:00 73 08/11/18 04:00 Mechanical Ventilator Mechanical Ventilator 08/11/18 03:22 72 13 40 08/11/18 03:00 70 18 143/54 (83) 100 08/11/18 02:00 71 14 143/70 (94) 100 08/11/18 01:32 75 15 40 08/11/18 01:00 71 14 146/65 (92) 100 08/11/18 00:00 69 08/11/18 00:00 97.9 68 16 148/67 (94) 100 08/11/18 00:00 Mechanical Ventilator Mechanical Ventilator 08/11/18 00:00 40 08/10/18 23:05 67 16 40 08/10/18 23:00 69 13 136/57 (83) 100 08/10/18 22:08 70 19 100 Mechanical Ventilator 40 08/10/18 22:00 70 18 140/70 (93) 100 08/10/18 21:51 68 19 100 Mechanical Ventilator 40 08/10/18 21:08 67 14 40 08/10/18 21:00 69 14 134/60 (84) 100 08/10/18 20:00 97.7 69 17 145/66 (92) 100 08/10/18 20:00 Mechanical Ventilator Mechanical Ventilator 08/10/18 20:00 40 08/10/18 20:00 66 08/10/18 19:37 71 14 40 08/10/18 19:00 70 18 134/63 (86) 100 08/10/18 18:00 73 18 161/103 (122) 100 08/10/18 17:25 77 15 40 08/10/18 17:00 75 18 143/60 (87) 100 08/10/18 16:00 71 08/10/18 16:00 Mechanical Ventilator Mechanical Ventilator 08/10/18 16:00 74 18 147/94 (111) 100 08/10/18 16:00 40 Intake and Output 08/10/18 08/11/18 18:59 06:59 Intake Total 360 ml 340 ml Output Total 0 ml 0 ml Balance 360 ml 340 ml IV Total 360 ml 340 ml Output Urine Total 0 ml 0 ml # Bowel Movements 3 2 Laboratory Tests 08/11/18 06:25: White Blood Count 4.2L, Red Blood Count 3.21L, Hemoglobin 8.8L, Hematocrit 29.5L , Mean Corpuscular Volume 92, Mean Corpuscular Hemoglobin 27.3, Mean Corpuscular Hemoglobin Concent 29.7L, Red Cell Distribution Width 17.2H, Platelet Count 142L, Mean Platelet Volume 8.1, Neutrophils (%) (Auto) 54.7, Lymphocytes (%) (Auto) 22.0, Monocytes (%) (Auto) 15.4H, Eosinophils (%) (Auto) 7.2H, Basophils (%) (Auto) 0.7, Sodium Level 138, Potassium Level 3.4L, Chloride Level 102, Carbon Dioxide Level 27, Anion Gap 9, Blood Urea Nitrogen 13 , Creatinine 4.3H, Estimat Glomerular Filtration Rate 12.4, Glucose Level 98, Calcium Level 8.5, Total Bilirubin 0.5, Aspartate Amino Transf (AST/SGOT) 12L, Alanine Aminotransferase (ALT/SGPT) 7L, Alkaline Phosphatase 140H, Total Protein 6.6, Albumin 1.7L, Globulin 4.9, Albumin/Globulin Ratio 0.3L Height (Feet): 5 Height (Inches): 7.00 Weight (Pounds): 224 Objective Intubated, On vent. Blind CV RR Lungs CTA Abd SNT. BS + E No CCE Neuro:Alert, nonfocal. Brenda Fuller MD Aug 11, 2018 15:44
[2018-08-11] MEDS ORDERED: Heparin Sod 1000 units/ml 10ml IV SCH (16:00)
--- NOTE | 2018-08-11 18:52 | NUR ---
RESPIRATORY NOTE: Received pt on AC 14, 500VT, 40%, PEEP +5. Pt intubated w/ ETT 7.0 @ 22cm lipline, secured by anchorfast. Pt is alert/awake, follows commands, no restraints. B/S marta. rhonchi, sxn small to moderate amounts of thick, pale-yellow to franks/yellow secretions. Vent plugged into red outlet, ambubag at bedside. Pt denies SOB/chest pain at this time. Will continue to monitor pt.
--- NOTE | 2018-08-11 19:00 | Consultation ---
DATE OF CONSULTATION: 07/27/2018 CONSULTING PHYSICIAN: Devon Aburto M.D. REFERRING PHYSICIAN: Brenda Fuller M.D. REASON FOR CONSULTATION: Left heel wound evaluation. HISTORY OF PRESENT ILLNESS: The patient is a 72-year-old female who was supposed to be discharged today to skilled nursing. Upon arrival to the room, the patient appeared to be unresponsive. There appeared to be a supervisor carbon electrodes at bedside. The patient was altered with labile blood pressure. No narcotics was given for the patient. The patient's vitals have been stable. Labs and ABGs are pending. PAST MEDICAL HISTORY: As above, history of end-stage renal disease on hemodialysis, hypertension, diabetes mellitus, prior history of right lower extremity amputation with hardware, orthopedic bone infection, left heel wound with prior history of osteomyelitis, calcific arterial occlusive disease with a previous history of revascularization. MEDICATIONS: See attached MAR. ALLERGIES: Multiple benazepril, codeine, insulin, opiates, morphine. SOCIAL HISTORY: No history of smoking, drugs, or alcohol. FAMILY HISTORY: Unremarkable. REVIEW OF SYSTEMS: Unobtainable currently due to altered mental status. PHYSICAL EXAMINATION: GENERAL: The patient is awake, but drowsy and poorly responsive. VITAL SIGNS: Temperature 96.8, heart rate 67, blood pressure 98/58, respirations 18, saturation 93%. Palpable pedal pulses. No evidence of carotid bruit. LUNGS: Clear to auscultation. HEART: Regular rate and rhythm. ABDOMEN: Soft and nontender. EXTREMITIES: She has upper arm AV shunt which has strongly palpable thrill. Postoperatively she has palpable femoral pulses. Left foot has a strong Doppler signals. She has a left heel wound which is granulating, has wound VAC. Right below-knee amputation stump is clear, dry, intact. LABORATORY DATA: Revealed WBC of 6.4, platelet count is 99. Creatinine 4.3, BUN 38, sodium was 137, potassium 4.4. IMPRESSION: 1. Left heel wound granulating well with a prior history of osteomyelitis and calcific arterial occlusive disease and intact Doppler signals. 2. Right arm AV shunt has a strongly palpable thrill, functional. 3. Altered mental status, rule out sepsis. 4. Diabetes mellitus, hypertension, obesity, blindness. PLAN AND RECOMMENDATIONS: We will discharge to step-down monitor, medical and pulmonary work up for optimization. Continue antibiotics per Infectious Disease service. Obtain chest x-ray rule out underlying infection. Continue with left heel wound VAC and offload. The above was discussed at length with the nurse at bedside and Dr. Fuller. Devon Aburto M.D. DR: Marilia JOB#: [id number] CC: REKHA
--- NOTE | 2018-08-11 19:25 | NUR ---
NURSE NOTES: Endorsement received from CHAPIS Villegas. Patient opens eyes spontaneously, follows commands. Orally intubated with ET 7.0, level 22.5 AC14,TV500,Fi02 40%,peep 5. HOB elevated. right upper arm shunt with +bruit and thrill. IV line intact on Left hand g 20 running D10W 30ml/hr. With left foot wound vacc, no drainage in the canister. Right BKA. Kept elevated. Head of bed elevated. Bed locked and in low position. Bed alarm on. instructed patient to use call light for assistance. Contact isolation maintained and observed. no s/s of hypo/hyperglycemia. Will continue plan of care.
[2018-08-11] MEDS: Sennosides 8.6mg tab ORAL SCH (20:08)
[2018-08-11] MEDS: Epogen (for ESRD on dialysis) SUBQ SCH (20:47)
--- NOTE | 2018-08-11 21:10 | NUR ---
NURSE NOTES: Repositioned in bed. patient listening to TV. Blood glucose 75mg/dl. No s/s of hypo/hyperglycemia. Denies any pain or discomfort. Will continue plan of care.
--- NOTE | 2018-08-11 23:10 | NUR ---
NURSE NOTES: Patient in bed sleeping comfortably. No moaning no facial grimaces. HOB elevated. Repositioned. no s/s of acute distress noted. Will continue plan of care.
[2018-08-12] VITALS (22 sets, daily range): BP systolic 130–154; BP diastolic 57–104
--- NOTE | 2018-08-12 01:10 | NUR ---
NURSE NOTES: Patient in bed sleeping comfortably. No moaning no facial grimaces. SR on front desk monitor. Anuric. HOB elevated. Repositioned. no s/s of acute distress noted. Will continue plan of care.
--- NOTE | 2018-08-12 03:10 | NUR ---
NURSE NOTES: Bed bath given with 1 small yellow greenish BM. Oral care done. Denies any pain or discomfort. No s/s of cardiac and acute distress noted. No s/s of hypo/hyperglycemia. Call light within easy reach. Will continue to monitor patient.
--- NOTE | 2018-08-12 05:10 | NUR ---
NURSE NOTES: Patient sleeping, easily arousable. patient able to self suction Orally. intubated with ET 7.0, level 22.5 AC14,TV500,Fi02 40%,peep 5. HOB elevated. right upper arm shunt with +bruit and thrill. IV line intact on Left hand g 20 running D10W 30ml/hr. With left foot wound VAC, no drainage in the canister. Right BKA. Kept elevated. Head of bed elevated. Will continue plan of care.
--- NOTE | 2018-08-12 07:02 | NUR ---
Received Patient on Vent settings of ACVC RR 14, VT 500, FIO2 40%, PEEP +5. Patient orally intubated with 7.0 ETT at 22cm at the lip secured by anchorfast. Diminished rhonchi are heard bilaterally. SX thin white secretions. Vent plugged into red outlet. Alarms are on and audible. Will continue to monitor throughout the day.
--- NOTE | 2018-08-12 07:11 | NUR ---
HAND-OFF: Report given to CHAPIS Morse.
--- NOTE | 2018-08-12 07:30 | NUR ---
NURSE NOTES: Report received from [place]. Pt awake, alert, able to write to make needs known. Pt connected to civil service clerk, SR. Pt orally intubated ETT 7, 22 cm lip line, AC 14, TV 500, fiO2 30%, PEEP 5. Pt able to suction self with yankuer. RADHA AV shunt noted ad intact with positive bruit adn thrill, LH 20G running d10 at 30 cc/hr. Safety measures in place with bed locked and in lowest position, side rails x3 up and bed alarm on. Will continue to monitor and continue plan of care.
[2018-08-12] MEDS: Docusate 100mg cap ORAL SCH ×3 (08:10→17:07)
[2018-08-12] MEDS: Aspirin Baby 81mg ORAL SCH (08:10)
[2018-08-12] MEDS: Nephrovite tab (Rena-Vite) ORAL SCH (08:11)
[2018-08-12] MEDS: Losartan 25mg tab ORAL SCH (08:11)
[2018-08-12] MEDS: Colistin for inhalation INH SCH ×2 (08:35→21:59)
--- NOTE | 2018-08-12 08:37 | NUR ---
Weaning started. Pt placed on PSV +8 PEEP +5 FIO2 40%. Will monitor.
--- NOTE | 2018-08-12 08:41 | NUR ---
Patient failed weaning. Decreased WOB. Placed on previous settings.
[2018-08-12] MEDS: Pantoprazole Inj IVP SCH (08:56)
[2018-08-12] MEDS: Miconazole 2% Cr 15gm TOPIC SCH ×2 (08:57→17:08)
[2018-08-12] MEDS: Heparin 5000 units/ml inj SUBQ SCH ×2 (08:58→21:10)
--- NOTE | 2018-08-12 09:36 | NUR ---
NURSE NOTES: Turned and repositioned pt. Pt kept clean. Will continue to monitor.
--- NOTE | 2018-08-12 10:35 | Infectious Diseases Prog Note ---
"Assessment/Plan Assessment/Plan antibiotics ; inhaled colistin 1.13.19 - A 1. enterococcus | streptococcus UTI s/p rx 2. acenitobacter pneumonia 3. diabetes mellitus 4. hypertension 5. renal failure on hemodialysis 6. history of left foot osteomyelitis 7. respiratory failure P 1. continue inhaled colistin 3 more days 2. will follow up cultures Subjective ROS Limited/Unobtainable: Yes Allergies: Coded Allergies: BENAZEPRIL (Verified Allergy, Unknown, 06/12/18) CODEINE (Verified Allergy, Unknown, 06/12/18) INSULIN ASPART (Verified Allergy, Unknown, 06/12/18) INSULIN DETEMIR (Verified Allergy, Unknown, 06/12/18) OPIOIDS - MORPHINE ANALOGUES (Verified Allergy, Unknown, 06/12/18) Objective Vital Signs Last 24 Hour Vital Signs Date Time Temp Pulse Resp B/P (MAP) Pulse Ox O2 Delivery O2 Flow Rate FiO2 08/12/18 09:00 72 17 154/89 (110) 100 08/12/18 08:42 73 24 40 08/12/18 08:42 100 08/12/18 08:37 72 12 40 08/12/18 08:36 72 19 100 Mechanical Ventilator 40 08/12/18 08:31 73 15 100 Mechanical Ventilator 40 08/12/18 08:11 132/72 08/12/18 08:00 Mechanical Ventilator Mechanical Ventilator 08/12/18 08:00 97.8 70 14 144/68 (93) 100 08/12/18 08:00 40 08/12/18 07:21 72 14 40 08/12/18 07:00 71 18 132/72 (92) 100 08/12/18 06:00 71 16 138/65 (89) 100 08/12/18 05:10 71 14 40 08/12/18 05:00 70 14 139/67 (91) 100 08/12/18 04:00 Mechanical Ventilator Mechanical Ventilator 08/12/18 04:00 40 08/12/18 04:00 75 08/12/18 04:00 97.8 72 17 137/61 (86) 100 08/12/18 03:00 71 14 40 08/12/18 03:00 71 14 146/69 (94) 100 08/12/18 02:00 69 14 133/57 (82) 100 08/12/18 01:00 74 19 130/104 (113) 100 08/12/18 00:58 71 15 40 08/12/18 00:00 Mechanical Ventilator Mechanical Ventilator 08/12/18 00:00 97.7 70 15 143/60 (87) 100 08/12/18 00:00 40 08/11/18 23:00 72 20 133/71 (91) 100 08/11/18 22:57 73 14 40 08/11/18 22:00 77 17 134/67 (89) 100 08/11/18 21:43 73 14 100 Mechanical Ventilator 40 08/11/18 21:26 72 14 100 Mechanical Ventilator 40 08/11/18 21:25 72 14 40 08/11/18 21:00 76 14 139/77 (97) 100 08/11/18 20:00 98.0 71 17 139/65 (89) 100 08/11/18 20:00 Mechanical Ventilator Mechanical Ventilator 08/11/18 20:00 40 08/11/18 20:00 73 08/11/18 19:00 76 17 137/78 (97) 100 08/11/18 18:50 72 14 40 08/11/18 18:00 72 16 127/74 (91) 100 08/11/18 17:00 72 15 139/77 (97) 100 08/11/18 17:00 72 14 139/77 (97) 100 08/11/18 16:52 78 15 40 08/11/18 16:00 71 08/11/18 16:00 98.1 74 14 122/65 (84) 100 08/11/18 16:00 40 08/11/18 16:00 Mechanical Ventilator Mechanical Ventilator 08/11/18 15:00 69 14 122/65 (84) 100 08/11/18 14:40 73 16 40 08/11/18 14:00 68 14 136/63 (87) 100 08/11/18 13:00 69 14 131/62 (85) 100 08/11/18 12:40 71 16 40 08/11/18 12:00 93 14 146/59 (88) 100 08/11/18 12:00 69 08/11/18 12:00 40 08/11/18 12:00 Mechanical Ventilator Mechanical Ventilator 08/11/18 11:00 73 19 100 Mechanical Ventilator 40 08/11/18 11:00 70 14 150/79 (102) 100 08/11/18 10:51 70 22 100 Mechanical Ventilator 40 08/11/18 10:49 70 16 40 Height (Feet): 5 Height (Inches): 7.00 Weight (Pounds): 225 Respiratory/Chest: lungs clear Cardiovascular: normal rate, regular rhythm, no gallop/murmur Abdomen: soft, non tender Extremities: no edema, other - right stump clean, left foot VAC Current Medications Medications (Trade) Dose Ordered Sig/Andre Route PRN Reason Start Time Stop Time Status Last Admin Dose Admin Acetaminophen (Tylenol) 650 mg Q6H PRN ORAL Mild Pain/Temp > 100.5 08/02/18 11:45 08/16/18 23:44 Aspirin (ASA) 81 mg DAILY ORAL 08/02/18 12:30 09/01/18 12:29 08/07/18 08:31 Colistimethate Sodium (Colistin *inhalation use only*) 75 mg Q12HR@10,22 INH 08/07/18 22:00 08/15/18 23:00 08/12/18 08:35 Dextrose 1,000 ml @ 30 mls/hr Q24H IV 08/03/18 13:00 09/02/18 12:59 08/11/18 19:00 Dextrose (Dextrose 50%) 25 ml Q30M PRN IV Hypoglycemia 08/02/18 12:00 08/17/18 11:59 08/11/18 12:35 Dextrose (Dextrose 50%) 50 ml Q30M PRN IV Hypoglycemia 08/02/18 12:00 08/17/18 11:59 08/03/18 11:30 Diphenoxylate HCl/ Atropine (Lomotil) 2.5 mg Q4H PRN ORAL Diarrhea 08/02/18 12:30 08/29/18 12:29 Docusate Sodium (Colace) 100 mg THREE TIMES A DAY ORAL 08/02/18 13:00 08/17/18 08:59 08/10/18 18:00 Epoetin Marcus (Procrit (for ESRD on dialysis)) 10,000 units TUE-WED-TUE SUBQ 08/04/18 21:00 08/18/18 20:59 08/11/18 20:47 Heparin Sodium (Porcine) (Heparin 5000 units/ml) 5,000 units EVERY 12 HOURS SUBQ 08/02/18 21:00 08/17/18 08:59 08/12/18 08:58 Losartan Potassium (Cozaar) 25 mg DAILY ORAL 08/10/18 09:00 09/09/18 08:59 Miconazole Nitrate (Monistat-Derm) 1 applic TWICE A DAY TOPIC 08/09/18 21:30 09/08/18 21:29 08/12/18 08:57 Pantoprazole (Protonix) 40 mg DAILY IVP 08/03/18 09:00 09/02/18 08:59 08/12/18 08:56 Polyethylene Glycol (Miralax) 17 gm DAILYPRN PRN ORAL Constipation 08/02/18 13:00 08/26/18 12:59 Sennosides (Senokot) 17.2 mg QHS ORAL 08/02/18 21:00 08/17/18 20:59 08/04/18 20:34 Vitamin B Complex/ Vit C/Folic Acid (Nephrovite) 1 tab DAILY ORAL 08/02/18 13:00 09/01/18 12:59 08/07/18 08:31 Naya Cain MD Aug 12, 2018 10:35"
--- NOTE | 2018-08-12 11:08 | Critical Care Progress Note ---
Assessment/Plan Assessment/Plan IMPRESSION: 1. Acute on chronic respiratory failure. 2. Acute hypercapnia, resolved with positive pressure ventilation 3. Hypoxemia. 4. Bilateral pleural effusions. and pulmonary edema 5. Fluid overload. 6. End-stage renal disease. 7. Severe protein-calorie malnutrition. 8. Anemia. 9. Thrombocytopenia. 10. Mild coagulopathy. 11. acute on chronic encephalopathy PLAN likely needs trach with poor baseline likely has obesity hypoventilation would recommend to proceed and place in subacute will try to wean again daily monitor acid base sedation off- reduce in hopes of wean will follow up for change and monitor clinically nutrition as able and aspiration precautions keep negative as per renal and cards medications/laboratory data/nursing notes/ICU care reviewed in detail note reviewed and edited care discussed with RN and RT ICU time spent 38 minutes Critical Care - Subjective Interval Events: on vent ROS Limited/Unobtainable: Yes Condition: critical EKG Rhythm: Sinus Rhythm Residuals: minimal Tube Feeding Tolerated: yes I&O: Intake and Output 08/11/18 08/12/18 19:00 07:00 Intake Total 3860 ml 360 ml Output Total 0 ml 0 ml Balance 3860 ml 360 ml IV Total 360 ml 360 ml Hemodialysis 3500 ml Output Urine Total 0 ml 0 ml # Bowel Movements 1 2 Critical Care - Objective ET-Tube: 7.0 ET Position: 22 Last 24 Hour Vital Signs Date Time Temp Pulse Resp B/P (MAP) Pulse Ox O2 Delivery O2 Flow Rate FiO2 08/12/18 10:41 75 20 40 08/12/18 10:00 73 22 147/78 (101) 100 08/12/18 09:00 72 17 154/89 (110) 100 08/12/18 08:42 73 24 40 08/12/18 08:42 100 08/12/18 08:37 72 12 40 08/12/18 08:36 72 19 100 Mechanical Ventilator 40 08/12/18 08:31 73 15 100 Mechanical Ventilator 40 08/12/18 08:11 132/72 08/12/18 08:00 Mechanical Ventilator Mechanical Ventilator 08/12/18 08:00 97.8 70 14 144/68 (93) 100 08/12/18 08:00 40 08/12/18 07:21 72 14 40 08/12/18 07:00 71 18 132/72 (92) 100 08/12/18 06:00 71 16 138/65 (89) 100 08/12/18 05:10 71 14 40 08/12/18 05:00 70 14 139/67 (91) 100 08/12/18 04:00 Mechanical Ventilator Mechanical Ventilator 08/12/18 04:00 40 08/12/18 04:00 75 08/12/18 04:00 97.8 72 17 137/61 (86) 100 08/12/18 03:00 71 14 40 08/12/18 03:00 71 14 146/69 (94) 100 08/12/18 02:00 69 14 133/57 (82) 100 08/12/18 01:00 74 19 130/104 (113) 100 08/12/18 00:58 71 15 40 08/12/18 00:00 Mechanical Ventilator Mechanical Ventilator 08/12/18 00:00 97.7 70 15 143/60 (87) 100 08/12/18 00:00 40 08/11/18 23:00 72 20 133/71 (91) 100 08/11/18 22:57 73 14 40 08/11/18 22:00 77 17 134/67 (89) 100 08/11/18 21:43 73 14 100 Mechanical Ventilator 40 08/11/18 21:26 72 14 100 Mechanical Ventilator 40 08/11/18 21:25 72 14 40 08/11/18 21:00 76 14 139/77 (97) 100 08/11/18 20:00 98.0 71 17 139/65 (89) 100 08/11/18 20:00 Mechanical Ventilator Mechanical Ventilator 08/11/18 20:00 40 08/11/18 20:00 73 08/11/18 19:00 76 17 137/78 (97) 100 08/11/18 18:50 72 14 40 08/11/18 18:00 72 16 127/74 (91) 100 08/11/18 17:00 72 15 139/77 (97) 100 08/11/18 17:00 72 14 139/77 (97) 100 08/11/18 16:52 78 15 40 08/11/18 16:00 71 08/11/18 16:00 98.1 74 14 122/65 (84) 100 08/11/18 16:00 40 08/11/18 16:00 Mechanical Ventilator Mechanical Ventilator 08/11/18 15:00 69 14 122/65 (84) 100 08/11/18 14:40 73 16 40 08/11/18 14:00 68 14 136/63 (87) 100 08/11/18 13:00 69 14 131/62 (85) 100 08/11/18 12:40 71 16 40 08/11/18 12:00 93 14 146/59 (88) 100 08/11/18 12:00 69 08/11/18 12:00 40 08/11/18 12:00 Mechanical Ventilator Mechanical Ventilator Labs: Labs Test 08/10/18 10:05 08/11/18 06:25 Arterial Blood pH 7.340 (7.350-7.450) Arterial Blood Partial Pressure CO2 56.7 mmHg (35.0-45.0) Arterial Blood Partial Pressure O2 147.5 mmHg (75.0-100.0) Arterial Blood HCO3 29.9 mmol/L (22.0-26.0) Arterial Blood Oxygen Saturation 98.8 % (95-100) Arterial Blood Base Excess 3.3 (-2-2) Nicola Test Positive White Blood Count 4.2 K/UL (4.8-10.8) Red Blood Count 3.21 M/UL (4.20-5.40) Hemoglobin 8.8 G/DL (12.0-16.0) Hematocrit 29.5 % (37.0-47.0) Mean Corpuscular Volume 92 FL (80-99) Mean Corpuscular Hemoglobin 27.3 PG (27.0-31.0) Mean Corpuscular Hemoglobin Concent 29.7 G/DL (32.0-36.0) Red Cell Distribution Width 17.2 % (11.6-14.8) Platelet Count 142 K/UL (150-450) Mean Platelet Volume 8.1 FL (6.5-10.1) Neutrophils (%) (Auto) 54.7 % (45.0-75.0) Lymphocytes (%) (Auto) 22.0 % (20.0-45.0) Monocytes (%) (Auto) 15.4 % (1.0-10.0) Eosinophils (%) (Auto) 7.2 % (0.0-3.0) Basophils (%) (Auto) 0.7 % (0.0-2.0) Sodium Level 138 MMOL/L (136-145) Potassium Level 3.4 MMOL/L (3.5-5.1) Chloride Level 102 MMOL/L (98-107) Carbon Dioxide Level 27 MMOL/L (21-32) Anion Gap 9 mmol/L (5-15) Blood Urea Nitrogen 13 mg/dL (7-18) Creatinine 4.3 MG/DL (0.55-1.30) Estimat Glomerular Filtration Rate 12.4 mL/min (>60) Glucose Level 98 MG/DL (74-106) Calcium Level 8.5 MG/DL (8.5-10.1) Total Bilirubin 0.5 MG/DL (0.2-1.0) Aspartate Amino Transf (AST/SGOT) 12 U/L (15-37) Alanine Aminotransferase (ALT/SGPT) 7 U/L (12-78) Alkaline Phosphatase 140 U/L (46-116) Total Protein 6.6 G/DL (6.4-8.2) Albumin 1.7 G/DL (3.4-5.0) Globulin 4.9 g/dL Albumin/Globulin Ratio 0.3 (1.0-2.7) Objective: WDWN NAD orally intubated reduced breath sounds bilaterally without rhonchi or wheeze C4O4COS without MRG NABS nontender no HSM; feeding tube no CC edema nonfocal and altered skin exam Accucheck: 71 Gustavo Rolon MD Aug 12, 2018 11:08
--- NOTE | 2018-08-12 12:00 | NUR ---
NURSE NOTES: Accucheck was 66. d50 25 ml given. Blood sugar re-checked it was 82. Will continue to monitor.
--- NOTE | 2018-08-12 12:03 | Nephrology Progress Note ---
Assessment/Plan Plan VDRF. B pleural Effusion. Severe CHF. DW Dr. Daley! Try to alleviate. 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 On IV Abx per ID. HD MWF. Increase UF on HD. Try to wean off vent. Maintain euglycemia with IV D5 0.45 NS. Trying to wean off vent. SAVANAH Rolon. Difficult to wean. We'll keep trying. Subjective Subjective Intubated, On vent. In ICU. Objective Objective Last 24 Hour Vital Signs Date Time Temp Pulse Resp B/P (MAP) Pulse Ox O2 Delivery O2 Flow Rate FiO2 08/12/18 10:41 75 20 40 08/12/18 10:00 73 22 147/78 (101) 100 08/12/18 09:00 72 17 154/89 (110) 100 08/12/18 08:42 73 24 40 08/12/18 08:42 100 08/12/18 08:37 72 12 40 08/12/18 08:36 72 19 100 Mechanical Ventilator 40 08/12/18 08:31 73 15 100 Mechanical Ventilator 40 08/12/18 08:11 132/72 08/12/18 08:00 Mechanical Ventilator Mechanical Ventilator 08/12/18 08:00 97.8 70 14 144/68 (93) 100 08/12/18 08:00 40 08/12/18 07:21 72 14 40 08/12/18 07:00 71 18 132/72 (92) 100 08/12/18 06:00 71 16 138/65 (89) 100 08/12/18 05:10 71 14 40 08/12/18 05:00 70 14 139/67 (91) 100 08/12/18 04:00 Mechanical Ventilator Mechanical Ventilator 08/12/18 04:00 40 08/12/18 04:00 75 08/12/18 04:00 97.8 72 17 137/61 (86) 100 08/12/18 03:00 71 14 40 08/12/18 03:00 71 14 146/69 (94) 100 08/12/18 02:00 69 14 133/57 (82) 100 08/12/18 01:00 74 19 130/104 (113) 100 08/12/18 00:58 71 15 40 08/12/18 00:00 Mechanical Ventilator Mechanical Ventilator 08/12/18 00:00 97.7 70 15 143/60 (87) 100 08/12/18 00:00 40 08/11/18 23:00 72 20 133/71 (91) 100 08/11/18 22:57 73 14 40 08/11/18 22:00 77 17 134/67 (89) 100 08/11/18 21:43 73 14 100 Mechanical Ventilator 40 08/11/18 21:26 72 14 100 Mechanical Ventilator 40 08/11/18 21:25 72 14 40 08/11/18 21:00 76 14 139/77 (97) 100 08/11/18 20:00 98.0 71 17 139/65 (89) 100 08/11/18 20:00 Mechanical Ventilator Mechanical Ventilator 08/11/18 20:00 40 08/11/18 20:00 73 08/11/18 19:00 76 17 137/78 (97) 100 08/11/18 18:50 72 14 40 08/11/18 18:00 72 16 127/74 (91) 100 08/11/18 17:00 72 15 139/77 (97) 100 08/11/18 17:00 72 14 139/77 (97) 100 08/11/18 16:52 78 15 40 08/11/18 16:00 71 08/11/18 16:00 98.1 74 14 122/65 (84) 100 08/11/18 16:00 40 08/11/18 16:00 Mechanical Ventilator Mechanical Ventilator 08/11/18 15:00 69 14 122/65 (84) 100 08/11/18 14:40 73 16 40 08/11/18 14:00 68 14 136/63 (87) 100 08/11/18 13:00 69 14 131/62 (85) 100 08/11/18 12:40 71 16 40 Intake and Output 08/11/18 08/12/18 19:00 07:00 Intake Total 3860 ml 360 ml Output Total 0 ml 0 ml Balance 3860 ml 360 ml IV Total 360 ml 360 ml Hemodialysis 3500 ml Output Urine Total 0 ml 0 ml # Bowel Movements 1 2 Height (Feet): 5 Height (Inches): 7.00 Weight (Pounds): 225 Objective Intubated, On vent. Blind CV RR Lungs CTA Abd SNT. BS + E No CCE Neuro:Alert, nonfocal. Sherusseller,Pagiel MD Aug 12, 2018 12:03
--- NOTE | 2018-08-12 14:46 | NUR ---
NURSE NOTES: Spoke to son. Updated him with pt status. No acute distress. Will continue to monitor.
--- NOTE | 2018-08-12 14:57 | Cardiology Progress Note ---
Assessment/Plan Problem List: (1) UTI (urinary tract infection) (2) Pleural effusion (3) Peripheral vascular disease (4) ESRD (end stage renal disease) on dialysis (5) UTI due to extended-spectrum beta lactamase (ESBL) producing Escherichia coli (6) NSTEMI (non-ST elevated myocardial infarction) Status: stable, progressing Status Narrative Pt remains on ventilator. Hemodynamically stable - BP increasing Assessment/Plan Continue weaning from vent per primary team Would give losartan via NGT for BP control. Subjective ROS Limited/Unobtainable: No Subjective Cardiology for Dr. Daley intubated/ awake. Objective Last 24 Hour Vital Signs Date Time Temp Pulse Resp B/P (MAP) Pulse Ox O2 Delivery O2 Flow Rate FiO2 08/12/18 14:00 73 17 144/80 (101) 100 08/12/18 13:00 75 19 132/100 (111) 100 08/12/18 12:59 74 16 40 08/12/18 12:00 74 18 149/74 (99) 100 08/12/18 12:00 Mechanical Ventilator Mechanical Ventilator 08/12/18 12:00 40 08/12/18 12:00 75 08/12/18 11:00 73 16 151/70 (97) 100 08/12/18 10:41 75 20 40 08/12/18 10:00 73 22 147/78 (101) 100 08/12/18 09:00 72 17 154/89 (110) 100 08/12/18 08:42 73 24 40 08/12/18 08:42 100 08/12/18 08:37 72 12 40 08/12/18 08:36 72 19 100 Mechanical Ventilator 40 08/12/18 08:31 73 15 100 Mechanical Ventilator 40 08/12/18 08:11 132/72 08/12/18 08:00 Mechanical Ventilator Mechanical Ventilator 08/12/18 08:00 73 08/12/18 08:00 97.8 70 14 144/68 (93) 100 08/12/18 08:00 40 08/12/18 07:21 72 14 40 08/12/18 07:00 71 18 132/72 (92) 100 08/12/18 06:00 71 16 138/65 (89) 100 08/12/18 05:10 71 14 40 08/12/18 05:00 70 14 139/67 (91) 100 08/12/18 04:00 Mechanical Ventilator Mechanical Ventilator 08/12/18 04:00 40 08/12/18 04:00 75 08/12/18 04:00 97.8 72 17 137/61 (86) 100 08/12/18 03:00 71 14 40 08/12/18 03:00 71 14 146/69 (94) 100 08/12/18 02:00 69 14 133/57 (82) 100 08/12/18 01:00 74 19 130/104 (113) 100 08/12/18 00:58 71 15 40 08/12/18 00:00 Mechanical Ventilator Mechanical Ventilator 08/12/18 00:00 97.7 70 15 143/60 (87) 100 08/12/18 00:00 40 08/11/18 23:00 72 20 133/71 (91) 100 08/11/18 22:57 73 14 40 08/11/18 22:00 77 17 134/67 (89) 100 08/11/18 21:43 73 14 100 Mechanical Ventilator 40 08/11/18 21:26 72 14 100 Mechanical Ventilator 40 08/11/18 21:25 72 14 40 08/11/18 21:00 76 14 139/77 (97) 100 08/11/18 20:00 98.0 71 17 139/65 (89) 100 08/11/18 20:00 Mechanical Ventilator Mechanical Ventilator 08/11/18 20:00 40 08/11/18 20:00 73 08/11/18 19:00 76 17 137/78 (97) 100 08/11/18 18:50 72 14 40 08/11/18 18:00 72 16 127/74 (91) 100 08/11/18 17:00 72 15 139/77 (97) 100 08/11/18 17:00 72 14 139/77 (97) 100 08/11/18 16:52 78 15 40 08/11/18 16:00 71 08/11/18 16:00 98.1 74 14 122/65 (84) 100 08/11/18 16:00 40 08/11/18 16:00 Mechanical Ventilator Mechanical Ventilator 08/11/18 15:00 69 14 122/65 (84) 100 General Appearance: WD/WN, alert, on vent Neck: supple, no JVD Rhythm: NSR Cardiovascular: normal rate, regular rhythm Respiratory/Chest: other - scattered rhonchi anteriorly Abdomen: normal bowel sounds, non tender, soft Intake and Output 08/11/18 08/12/18 19:00 07:00 Intake Total 3860 ml 360 ml Output Total 0 ml 0 ml Balance 3860 ml 360 ml IV Total 360 ml 360 ml Hemodialysis 3500 ml Output Urine Total 0 ml 0 ml # Bowel Movements 1 2 Jess Jensen MD Aug 12, 2018 14:57
--- NOTE | 2018-08-12 16:00 | NUR ---
NURSE NOTES: Pt had loose BM. Cleaned pt. Turned and repositioned. Will continue to monitor.
--- NOTE | 2018-08-12 17:51 | Surgery Progress Note ---
Surgery Progress Note Subjective Additional Comments cont with VAC. wound stable. patient unable to wean from vent. critically ill in ICU Objective Last 24 Hour Vital Signs Date Time Temp Pulse Resp B/P (MAP) Pulse Ox O2 Delivery O2 Flow Rate FiO2 08/12/18 17:09 74 14 40 08/12/18 17:00 74 15 142/66 (91) 100 08/12/18 16:00 73 08/12/18 16:00 40 08/12/18 16:00 98.4 74 18 147/96 (113) 100 08/12/18 16:00 Mechanical Ventilator Mechanical Ventilator 08/12/18 15:00 73 16 133/65 (87) 99 08/12/18 14:52 72 17 40 08/12/18 14:00 73 17 144/80 (101) 100 08/12/18 13:00 75 19 132/100 (111) 100 08/12/18 12:59 74 16 40 08/12/18 12:00 98.0 74 18 149/74 (99) 100 08/12/18 12:00 Mechanical Ventilator Mechanical Ventilator 08/12/18 12:00 40 08/12/18 12:00 75 08/12/18 11:00 73 16 151/70 (97) 100 08/12/18 10:41 75 20 40 08/12/18 10:00 73 22 147/78 (101) 100 08/12/18 09:00 72 17 154/89 (110) 100 08/12/18 08:42 73 24 40 08/12/18 08:42 100 08/12/18 08:37 72 12 40 08/12/18 08:36 72 19 100 Mechanical Ventilator 40 08/12/18 08:31 73 15 100 Mechanical Ventilator 40 08/12/18 08:11 132/72 08/12/18 08:00 Mechanical Ventilator Mechanical Ventilator 08/12/18 08:00 73 08/12/18 08:00 97.8 70 14 144/68 (93) 100 08/12/18 08:00 40 08/12/18 07:21 72 14 40 08/12/18 07:00 71 18 132/72 (92) 100 08/12/18 06:00 71 16 138/65 (89) 100 08/12/18 05:10 71 14 40 08/12/18 05:00 70 14 139/67 (91) 100 08/12/18 04:00 Mechanical Ventilator Mechanical Ventilator 08/12/18 04:00 40 08/12/18 04:00 75 08/12/18 04:00 97.8 72 17 137/61 (86) 100 08/12/18 03:00 71 14 40 08/12/18 03:00 71 14 146/69 (94) 100 08/12/18 02:00 69 14 133/57 (82) 100 08/12/18 01:00 74 19 130/104 (113) 100 08/12/18 00:58 71 15 40 08/12/18 00:00 Mechanical Ventilator Mechanical Ventilator 08/12/18 00:00 97.7 70 15 143/60 (87) 100 08/12/18 00:00 40 08/11/18 23:00 72 20 133/71 (91) 100 08/11/18 22:57 73 14 40 08/11/18 22:00 77 17 134/67 (89) 100 08/11/18 21:43 73 14 100 Mechanical Ventilator 40 08/11/18 21:26 72 14 100 Mechanical Ventilator 40 08/11/18 21:25 72 14 40 08/11/18 21:00 76 14 139/77 (97) 100 08/11/18 20:00 98.0 71 17 139/65 (89) 100 08/11/18 20:00 Mechanical Ventilator Mechanical Ventilator 08/11/18 20:00 40 08/11/18 20:00 73 08/11/18 19:00 76 17 137/78 (97) 100 08/11/18 18:50 72 14 40 08/11/18 18:00 72 16 127/74 (91) 100 I&O Intake and Output 08/11/18 08/12/18 18:59 06:59 Intake Total 3860 ml 330 ml Output Total 0 ml 0 ml Balance 3860 ml 330 ml IV Total 360 ml 330 ml Hemodialysis 3500 ml Output Urine Total 0 ml 0 ml # Bowel Movements 1 2 Dressing: dry Wound: clean Drains: wound vac Cardiovascular: RSR Respiratory: decreased breath sounds Abdomen: soft, present bowel sounds Extremities: other Plan Problems: (1) Left heel unstageable pressure ulcer with black eschar adhered to wound bed Assessment & Plan: Stage IV Full thickness pressure injury L heel (L)3.8cm x (W )3.6cm x (D)0.7 cm. Wound wound bed granular at base (+) maceration along borders. Small amt sanguineous exudate noted from wound. Periwound skin is dry and flaky without erythema. No odor noted from wound. Transparent drsg applied along borders of wound and draped to sylvester/ distal L tibia. Granulofoam packing placed within wound and bridged over transparent drape to sylvester/distal L tibia and vac placed at this end. Abd pad then placed between Vac tubing and pt's skin to prevent pressure and wrapped with soft kerlix. L lower ext edematous L heel off-loaded with pillow. Intertriginous dermatitis with erythema and scattered satellite lesions noted to medial and posterior aspects of both upper thighs and to buttocks. Areas of maroon discoloration noted to sacrum ,R and L buttocks. R AKA stump edematous with dry, flaking skin noted. Serosanguineous exudate noted in canister. L heel wound resolving and now (L) 2.4cm x (W)3.7cm x (D) 0.3cm. Wound bed granular ,(+) maceration along borders. No odor noted. NPWT at 125mm/Hg to continuous suction. Dressing changes going well 08/12: L heel wound resolving(L)2.8cm x (W)2.7cm.Wound base moist -granular. Edges adherent to base of wound Small amt sanguineus exudate noted.Periwound intact. L heel wound cleansed with Saline.Cavilon Skin Barrier wipe applied along borders and periwound .Transparent drape aplpied periwound to protect skin and bridged to distal sylvester L tibia. Granulofoam packing then cut to conform to shape and size of wound then foam bridged away from wound,but over transparent drape to distal sylvester L tibia. Quarter size opening made at end of foam bridge and Wound vac applied.NPWt resumed at 125mm/Hg to continuous suction. Abd pad placed between wound vac tubing and skin to prevent presure to skin and wraqpped with kerlix. Non-blanchable erythema noted to L lateral malleolus. Cavilon Skin Barrier wipe applied to affected area and covered with Optifoam drsg. Tx.Plan: Cleanse L heel wound with Saline.Apply Cavilon Skin Barrier along edges and periwound .Place transparent drsg around wound. Pack with Granulofoam packing conformed to shape of wound.Bridge foam away from heel and place. Vac away from heel at either sylvester L tibia or dorsal L foot. NPWT settings at 125mm/Hg to continuous suction. Change NPWT on Mondays and and PRN.(Please remove Foam packing if NPWT is off for 2hours,place Saline wet to dry packing and cover with Optifoam .Notify Wound Nurse SHIRAZ) Apply Triad Paste to buttocks,medial and posterior aspects of both thighs with each perineal care. Air fluidized mattress. Off-load L heel with Pillow. Reposition at least every 2hours or as tolerated. Tuan Luis Aug 12, 2018 17:51
--- NOTE | 2018-08-12 19:22 | NUR ---
HAND-OFF: Report given to Joey NATION.
--- NOTE | 2018-08-12 19:45 | NUR ---
NURSE NOTES: Report received from CHAPIS Cook. Patient opens eyes spontaneously, follows commands. Orally intubated with ET 7.0, level 22.5 AC14,TV500,Fi02 40%,peep 5. HOB elevated. right upper arm shunt with +bruit and thrill. IV line intact on Left hand g 20 running D10W 30ml/hr. With left foot wound VAC, no drainage in the canister. Right BKA. Kept elevated. Head of bed elevated. Bed locked and in low position. Bed alarm on. instructed patient to use call light for assistance. Contact isolation maintained and observed. no s/s of hypo/hyperglycemia. Will continue plan of care.
[2018-08-12] MEDS: Dextrose 10% 1,000 ML IV SCH (20:00)
[2018-08-12] MEDS: Sennosides 8.6mg tab ORAL SCH (20:21)
--- NOTE | 2018-08-12 21:24 | NUR ---
NURSE NOTES: Blood glucose 66mg/dl rechecked blood glucose 65mg/dl. patient no s/s of hypo/hyperglycemia. Glucose 25% IVP given. Rechecked blood glucose after 15min blood glucose 91mg/dl. Repositioned patient and patient able to wipe her face with wash cloth. call light within easy reach. will continue to monitor patient.
--- NOTE | 2018-08-12 23:23 | NUR ---
NURSE NOTES: Patient in bed sleeping comfortably. No moaning no facial grimaces. HOB elevated. Repositioned. no s/s of acute distress noted. Will continue plan of care.
[2018-08-13] VITALS (24 sets, daily range): BP systolic 114–152; BP diastolic 56–82
--- NOTE | 2018-08-13 01:20 | NUR ---
NURSE NOTES: Patient in bed sleeping comfortably. No moaning no facial grimaces. HOB elevated. Repositioned. no s/s of acute distress noted. No s/s of hypo/hyperglycemia. Will continue plan of care.
--- NOTE | 2018-08-13 03:20 | NUR ---
NURSE NOTES: Patient in bed sleeping comfortably. able to suctioned her self orally. No moaning no facial grimaces. HOB elevated. Repositioned. no s/s of acute distress noted. No s/s of hypo/hyperglycemia. Will continue plan of care.
--- NOTE | 2018-08-13 05:18 | NUR ---
NURSE NOTES: Bed bath given with 1 small yellow greenish BM. Oral care done. Denies any pain or discomfort. No s/s of cardiac and acute distress noted. Removed Left hand #20 infiltrated, new IV line left thumb #22 no s/s of infiltration. No s/s of hypo/hyperglycemia. Call light within easy reach. Will continue to monitor patient.
--- NOTE | 2018-08-13 07:20 | NUR ---
HAND-OFF: Report given to CHAPIS Nuñez.
--- NOTE | 2018-08-13 08:54 | NUR ---
Weaning started at 0852. Placed on PSV 8 PEEP +5 FIO2 40%. Patient immediately failed weaning test. No WOB made. Poor effort.
[2018-08-13] MEDS: Colistin for inhalation INH SCH ×2 (08:56→21:23)
[2018-08-13] MEDS: Docusate 100mg cap ORAL SCH ×3 (09:00→17:56)
--- NOTE | 2018-08-13 09:30 | NUR ---
NURSE NOTES: OG tube Placed for medication, patient tolerated insertion well, X-ray awaiting for be taken, patient aware and awaiting. will continue plan care.
--- NOTE | 2018-08-13 10:21 | Critical Care Progress Note ---
Assessment/Plan Assessment/Plan IMPRESSION: 1. Acute on chronic respiratory failure. 2. Acute hypercapnia, resolved with positive pressure ventilation 3. Hypoxemia. 4. Bilateral pleural effusions. and pulmonary edema 5. Fluid overload. 6. End-stage renal disease. 7. Severe protein-calorie malnutrition. 8. Anemia. 9. Thrombocytopenia. 10. Mild coagulopathy. 11. acute on chronic encephalopathy PLAN likely needs trach with poor baseline and difficulty with weaning likely has obesity hypoventilation would recommend to proceed and place in subacute will try to wean again -d/w rt monitor acid base for change sedation off- as able will follow up for change and monitor clinically nutrition as able and aspiration precautions keep negative as per renal and cards medications/laboratory data/nursing notes/ICU care reviewed in detail note reviewed and edited care discussed with RN and RT ICU time spent 42 minutes Critical Care - Subjective Interval Events: on vent trying to wean ROS Limited/Unobtainable: Yes Condition: critical EKG Rhythm: Sinus Rhythm Residuals: minimal Tube Feeding Tolerated: yes I&O: Intake and Output 08/12/18 08/13/18 19:00 07:00 Intake Total 330 ml 330 ml Output Total 0 ml 0 ml Balance 330 ml 330 ml IV Total 330 ml 330 ml Output Urine Total 0 ml 0 ml # Bowel Movements 3 1 Critical Care - Objective ET-Tube: 7.0 ET Position: 22 Last 24 Hour Vital Signs Date Time Temp Pulse Resp B/P (MAP) Pulse Ox O2 Delivery O2 Flow Rate FiO2 08/13/18 08:58 71 16 100 Mechanical Ventilator 40 08/13/18 08:53 79 14 40 08/13/18 08:53 100 08/13/18 08:51 74 37 40 08/13/18 08:50 71 18 100 Mechanical Ventilator 40 08/13/18 07:00 69 15 146/70 (95) 100 08/13/18 06:50 69 14 40 08/13/18 06:00 69 16 145/68 (93) 100 08/13/18 05:00 68 15 132/65 (87) 100 08/13/18 04:53 68 14 40 08/13/18 04:21 70 19 143/69 (93) 100 08/13/18 04:00 71 08/13/18 04:00 40 08/13/18 04:00 98.4 70 18 100 08/13/18 04:00 Mechanical Ventilator Mechanical Ventilator 08/13/18 03:12 69 14 40 08/13/18 03:00 69 14 145/72 (96) 100 08/13/18 02:00 71 13 147/67 (93) 99 08/13/18 01:02 70 14 40 08/13/18 01:00 70 15 138/66 (90) 100 08/13/18 00:00 40 08/13/18 00:00 75 08/13/18 00:00 Mechanical Ventilator Mechanical Ventilator 08/13/18 00:00 98.4 68 14 142/70 (94) 100 08/12/18 23:00 70 14 139/73 (95) 100 08/12/18 22:52 69 14 40 08/12/18 22:25 71 18 100 Mechanical Ventilator 40 08/12/18 22:00 69 15 100 08/12/18 21:59 68 15 100 Mechanical Ventilator 40 08/12/18 21:01 70 14 40 08/12/18 21:00 70 14 100 08/12/18 20:00 98.0 70 14 138/77 (97) 100 08/12/18 20:00 73 08/12/18 20:00 Mechanical Ventilator Mechanical Ventilator 08/12/18 20:00 40 08/12/18 19:00 72 16 140/70 (93) 100 08/12/18 18:58 71 20 40 08/12/18 18:00 72 13 134/70 (91) 100 08/12/18 17:09 74 14 40 08/12/18 17:00 74 15 142/66 (91) 100 08/12/18 16:00 73 08/12/18 16:00 40 08/12/18 16:00 98.4 74 18 147/96 (113) 100 08/12/18 16:00 Mechanical Ventilator Mechanical Ventilator 08/12/18 15:00 73 16 133/65 (87) 99 08/12/18 14:52 72 17 40 08/12/18 14:00 73 17 144/80 (101) 100 08/12/18 13:00 75 19 132/100 (111) 100 08/12/18 12:59 74 16 40 08/12/18 12:00 98.0 74 18 149/74 (99) 100 08/12/18 12:00 Mechanical Ventilator Mechanical Ventilator 08/12/18 12:00 40 08/12/18 12:00 75 08/12/18 11:00 73 16 151/70 (97) 100 08/12/18 10:41 75 20 40 Labs: Labs Test 08/11/18 06:25 White Blood Count 4.2 K/UL (4.8-10.8) Red Blood Count 3.21 M/UL (4.20-5.40) Hemoglobin 8.8 G/DL (12.0-16.0) Hematocrit 29.5 % (37.0-47.0) Mean Corpuscular Volume 92 FL (80-99) Mean Corpuscular Hemoglobin 27.3 PG (27.0-31.0) Mean Corpuscular Hemoglobin Concent 29.7 G/DL (32.0-36.0) Red Cell Distribution Width 17.2 % (11.6-14.8) Platelet Count 142 K/UL (150-450) Mean Platelet Volume 8.1 FL (6.5-10.1) Neutrophils (%) (Auto) 54.7 % (45.0-75.0) Lymphocytes (%) (Auto) 22.0 % (20.0-45.0) Monocytes (%) (Auto) 15.4 % (1.0-10.0) Eosinophils (%) (Auto) 7.2 % (0.0-3.0) Basophils (%) (Auto) 0.7 % (0.0-2.0) Sodium Level 138 MMOL/L (136-145) Potassium Level 3.4 MMOL/L (3.5-5.1) Chloride Level 102 MMOL/L (98-107) Carbon Dioxide Level 27 MMOL/L (21-32) Anion Gap 9 mmol/L (5-15) Blood Urea Nitrogen 13 mg/dL (7-18) Creatinine 4.3 MG/DL (0.55-1.30) Estimat Glomerular Filtration Rate 12.4 mL/min (>60) Glucose Level 98 MG/DL (74-106) Calcium Level 8.5 MG/DL (8.5-10.1) Total Bilirubin 0.5 MG/DL (0.2-1.0) Aspartate Amino Transf (AST/SGOT) 12 U/L (15-37) Alanine Aminotransferase (ALT/SGPT) 7 U/L (12-78) Alkaline Phosphatase 140 U/L (46-116) Total Protein 6.6 G/DL (6.4-8.2) Albumin 1.7 G/DL (3.4-5.0) Globulin 4.9 g/dL Albumin/Globulin Ratio 0.3 (1.0-2.7) Objective: WDWN NAD orally intubated reduced breath sounds bilaterally without rhonchi or wheeze [id number] without MRG NABS nontender no HSM; feeding tube no CC edema nonfocal and altered without change skin exam reviewed and examined Accucheck: 75 Gustavo Rolon MD Aug 13, 2018 10:21
[2018-08-13 10:37] LABS: BASOPHILS % (AUTO) 1.1 % (0.0-2.0); EOSINOPHILS % (AUTO) 7.1 % (0.0-3.0); HEMATOCRIT 31.7 % (37.0-47.0); HEMOGLOBIN 9.4 G/DL (12.0-16.0); LYMPHOCYTES % (AUTO) 32.7 % (20.0-45.0); MEAN CORPUSCULAR VOLUME 92 FL (80-99); MONOCYTES % (AUTO) 14.7 % (1.0-10.0); NEUTROPHILS % (AUTO) 44.4 % (45.0-75.0); PLATELET COUNT 137 K/UL (150-450); RED BLOOD COUNT 3.46 M/UL (4.20-5.40); RED CELL DISTRIBUTION WIDTH 17.1 % (11.6-14.8)
[2018-08-13 10:47] LABS: ANION GAP 7 mmol/L (5-15); BLOOD UREA NITROGEN 12 mg/dL (7-18); CALCIUM 8.6 MG/DL (8.5-10.1); CARBON DIOXIDE 29 MMOL/L (21-32); CHLORIDE 102 MMOL/L (98-107); CREATININE 4.3 MG/DL (0.55-1.30); POTASSIUM 3.7 MMOL/L (3.5-5.1); SODIUM 137 MMOL/L (136-145)
--- NOTE | 2018-08-13 11:00 | NUR ---
NURSE NOTES: X-ray confirmed to OG-tube to be in stomach, AM medication will be given, patient remains awake and alert, no pain noted at this time,
[2018-08-13] MEDS: Pantoprazole Inj IVP SCH (11:05)
[2018-08-13] MEDS: Heparin 5000 units/ml inj SUBQ SCH ×2 (11:07→20:25)
[2018-08-13] MEDS: Miconazole 2% Cr 15gm TOPIC SCH ×2 (11:08→17:56)
--- NOTE | 2018-08-13 11:37 | Diagnostic Imaging Report ---
EXAM: XR Abdomen, 1 Views CLINICAL HISTORY: TUBE PLCMT TECHNIQUE: Frontal view of the abdomen/pelvis . COMPARISON: KUB 08/12/18 1358 FINDINGS: Gastrointestinal tract: Gassy distended small bowel loops may be an ileus, cannot exclude obstruction. Bones/joints: Unremarkable. Tubes, lines and devices: NG tube tip in the distal stomach, good position. IMPRESSION: 1. NG tube tip in the distal stomach, good position. 2. Gassy distended small bowel loops may be an ileus, cannot exclude obstruction.
[2018-08-13] MEDS: Losartan 25mg tab ORAL SCH (11:59)
[2018-08-13] MEDS: Nephrovite tab (Rena-Vite) ORAL SCH (11:59)
[2018-08-13] MEDS: Aspirin Baby 81mg ORAL SCH (12:00)
--- NOTE | 2018-08-13 12:15 | NUR ---
NURSE NOTES: Dr. Melgar updated of patient WBC count and remaining on colistin for MDR sputum, no verbal orders given at this time.
--- NOTE | 2018-08-13 12:58 | Infectious Diseases Prog Note ---
"Assessment/Plan Assessment/Plan A: 1. enterococcus | streptococcus UTI 2. pneumonia 3. diabetes mellitus 4. hypertension 5. renal failure on hemodialysis 6. history of left foot osteomyelitis &. Hypercapnic respiratory failure 9. Pleural effusion, more in R side 10. Acinetobacter pneumonia P 1. continue Colistin inhaler X 2 days Subjective ROS Limited/Unobtainable: Yes Allergies: Coded Allergies: BENAZEPRIL (Verified Allergy, Unknown, 06/12/18) CODEINE (Verified Allergy, Unknown, 06/12/18) INSULIN ASPART (Verified Allergy, Unknown, 06/12/18) INSULIN DETEMIR (Verified Allergy, Unknown, 06/12/18) OPIOIDS - MORPHINE ANALOGUES (Verified Allergy, Unknown, 06/12/18) Objective Vital Signs Last 24 Hour Vital Signs Date Time Temp Pulse Resp B/P (MAP) Pulse Ox O2 Delivery O2 Flow Rate FiO2 08/13/18 12:00 Mechanical Ventilator Mechanical Ventilator 08/13/18 12:00 69 08/13/18 12:00 97.6 70 15 143/68 (93) 100 08/13/18 12:00 40 08/13/18 11:59 137/62 08/13/18 11:17 72 14 40 08/13/18 11:00 69 16 143/68 (93) 100 08/13/18 10:00 70 17 145/69 (94) 100 08/13/18 09:00 69 16 147/73 (97) 100 08/13/18 08:58 71 16 100 Mechanical Ventilator 40 08/13/18 08:53 79 14 40 08/13/18 08:53 100 08/13/18 08:51 74 37 40 08/13/18 08:50 71 18 100 Mechanical Ventilator 40 08/13/18 08:00 40 08/13/18 08:00 Mechanical Ventilator Mechanical Ventilator 08/13/18 08:00 70 16 152/76 (101) 100 08/13/18 08:00 70 08/13/18 07:00 69 15 146/70 (95) 100 08/13/18 06:50 69 14 40 08/13/18 06:00 69 16 145/68 (93) 100 08/13/18 05:00 68 15 132/65 (87) 100 08/13/18 04:53 68 14 40 08/13/18 04:21 70 19 143/69 (93) 100 08/13/18 04:00 71 08/13/18 04:00 40 08/13/18 04:00 98.4 70 18 100 08/13/18 04:00 Mechanical Ventilator Mechanical Ventilator 08/13/18 03:12 69 14 40 08/13/18 03:00 69 14 145/72 (96) 100 08/13/18 02:00 71 13 147/67 (93) 99 08/13/18 01:02 70 14 40 08/13/18 01:00 70 15 138/66 (90) 100 08/13/18 00:00 40 08/13/18 00:00 75 08/13/18 00:00 Mechanical Ventilator Mechanical Ventilator 08/13/18 00:00 98.4 68 14 142/70 (94) 100 08/12/18 23:00 70 14 139/73 (95) 100 08/12/18 22:52 69 14 40 08/12/18 22:25 71 18 100 Mechanical Ventilator 40 08/12/18 22:00 69 15 100 08/12/18 21:59 68 15 100 Mechanical Ventilator 40 08/12/18 21:01 70 14 40 08/12/18 21:00 70 14 100 08/12/18 20:00 98.0 70 14 138/77 (97) 100 08/12/18 20:00 73 08/12/18 20:00 Mechanical Ventilator Mechanical Ventilator 08/12/18 20:00 40 08/12/18 19:00 72 16 140/70 (93) 100 08/12/18 18:58 71 20 40 08/12/18 18:00 72 13 134/70 (91) 100 08/12/18 17:09 74 14 40 08/12/18 17:00 74 15 142/66 (91) 100 08/12/18 16:00 73 08/12/18 16:00 40 08/12/18 16:00 98.4 74 18 147/96 (113) 100 08/12/18 16:00 Mechanical Ventilator Mechanical Ventilator 08/12/18 15:00 73 16 133/65 (87) 99 08/12/18 14:52 72 17 40 08/12/18 14:00 73 17 144/80 (101) 100 08/12/18 13:00 75 19 132/100 (111) 100 08/12/18 12:59 74 16 40 Height (Feet): 5 Height (Inches): 7.00 Weight (Pounds): 225 General Appearance: no acute distress HEENT: other - orally intubated Respiratory/Chest: lungs clear, other - on ventilator Cardiovascular: normal rate Abdomen: soft, non tender, other - orogastric tube Extremities: other - edema of legs, R BKA Neurologic/Psychiatric: other - sleeping Laboratory Tests Test 08/13/18 10:26 White Blood Count 4.0 K/UL (4.8-10.8) L Red Blood Count 3.46 M/UL (4.20-5.40) L Hemoglobin 9.4 G/DL (12.0-16.0) L Hematocrit 31.7 % (37.0-47.0) L Mean Corpuscular Volume 92 FL (80-99) Mean Corpuscular Hemoglobin 27.1 PG (27.0-31.0) Mean Corpuscular Hemoglobin Concent 29.6 G/DL (32.0-36.0) L Red Cell Distribution Width 17.1 % (11.6-14.8) H Platelet Count 137 K/UL (150-450) L Mean Platelet Volume 10.4 FL (6.5-10.1) H Neutrophils (%) (Auto) 44.4 % (45.0-75.0) L Lymphocytes (%) (Auto) 32.7 % (20.0-45.0) Monocytes (%) (Auto) 14.7 % (1.0-10.0) H Eosinophils (%) (Auto) 7.1 % (0.0-3.0) H Basophils (%) (Auto) 1.1 % (0.0-2.0) Sodium Level 137 MMOL/L (136-145) Potassium Level 3.7 MMOL/L (3.5-5.1) Chloride Level 102 MMOL/L (98-107) Carbon Dioxide Level 29 MMOL/L (21-32) Anion Gap 7 mmol/L (5-15) Blood Urea Nitrogen 12 mg/dL (7-18) Creatinine 4.3 MG/DL (0.55-1.30) H Estimat Glomerular Filtration Rate 12.4 mL/min (>60) Glucose Level 61 MG/DL (74-106) L Calcium Level 8.6 MG/DL (8.5-10.1) Current Medications Medications (Trade) Dose Ordered Sig/Andre Route PRN Reason Start Time Stop Time Status Last Admin Dose Admin Acetaminophen (Tylenol) 650 mg Q6H PRN ORAL Mild Pain/Temp > 100.5 08/02/18 11:45 08/16/18 23:44 Aspirin (ASA) 81 mg DAILY ORAL 08/02/18 12:30 09/01/18 12:29 08/13/18 12:00 Colistimethate Sodium (Colistin *inhalation use only*) 75 mg Q12HR@10,22 INH 08/07/18 22:00 08/15/18 23:00 08/13/18 08:56 Dextrose 1,000 ml @ 30 mls/hr Q24H IV 08/03/18 13:00 09/02/18 12:59 08/12/18 20:00 Dextrose (Dextrose 50%) 25 ml Q30M PRN IV Hypoglycemia 08/02/18 12:00 08/17/18 11:59 08/13/18 12:04 Dextrose (Dextrose 50%) 50 ml Q30M PRN IV Hypoglycemia 08/02/18 12:00 08/17/18 11:59 08/03/18 11:30 Diphenoxylate HCl/ Atropine (Lomotil) 2.5 mg Q4H PRN ORAL Diarrhea 08/02/18 12:30 08/29/18 12:29 Docusate Sodium (Colace) 100 mg THREE TIMES A DAY ORAL 08/02/18 13:00 08/17/18 08:59 08/10/18 18:00 Epoetin Marcus (Procrit (for ESRD on dialysis)) 10,000 units TUE-TUE-TUE SUBQ 08/04/18 21:00 08/18/18 20:59 08/11/18 20:47 Heparin Sodium (Porcine) (Heparin 5000 units/ml) 5,000 units EVERY 12 HOURS SUBQ 08/02/18 21:00 08/17/18 08:59 08/13/18 11:07 Losartan Potassium (Cozaar) 25 mg DAILY ORAL 08/10/18 09:00 09/09/18 08:59 08/13/18 11:59 Miconazole Nitrate (Monistat-Derm) 1 applic TWICE A DAY TOPIC 08/09/18 21:30 09/08/18 21:29 08/13/18 11:08 Pantoprazole (Protonix) 40 mg DAILY IVP 08/03/18 09:00 09/02/18 08:59 08/13/18 11:05 Polyethylene Glycol (Miralax) 17 gm DAILYPRN PRN ORAL Constipation 08/02/18 13:00 08/26/18 12:59 Sennosides (Senokot) 17.2 mg QHS ORAL 08/02/18 21:00 08/17/18 20:59 08/04/18 20:34 Vitamin B Complex/ Vit C/Folic Acid (Nephrovite) 1 tab DAILY ORAL 08/02/18 13:00 09/01/18 12:59 08/13/18 11:59 Joe Melgar MD Aug 13, 2018 12:58"
--- NOTE | 2018-08-13 13:44 | NUR ---
CASE MANAGEMENT: REVIEW SI: ESRD . ACUTE ON CHRONIC RESPIRATORY FAILURE . T 97.6 HR 70 RR 15 B/P 143/68 SATS 100% ON RA WBC 4 CR 4.3 GLU 61 IS: COLISTIN INH Q12HR PROCRIT SQ MWF PROTONIX IV QD COZAAR PO QD NPO ICU STATUS DCP: PATIENT IS FROM [facility]
--- NOTE | 2018-08-13 14:00 | NUR ---
Started weaning again per Joaquin NATION. Placed on PSV +8 PEEP +5 FIO2 40%. Will continue to monitor.
--- NOTE | 2018-08-13 14:15 | NUR ---
NURSE NOTES: Jonny Pollock updated at the bedside of patient failed weaning in the morning, advice if he would want to have patient trached by dr montano, he expressed to have patient placed on CPAP once again, RT notified and placed on Cpap with PS of 8, FIo2 40% and peep of 5, she remains in sinus rhythm at 76-80pbm, she remains saturating at 97-99% with RR of 10-16, ABG ordered to be done one hour after weaning started, will continue to monitor.
--- NOTE | 2018-08-13 14:23 | Nephrology Progress Note ---
Assessment/Plan Plan VDRF. B pleural Effusion. Severe CHF. DW Dr. Daley! Try to alleviate. 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 On IV Abx per ID. HD MWF. Increase UF on HD. Try to wean off vent. Still unable to wean despite the fact that she's very alert! Add ARBs, Aldactone Maintain euglycemia with IV D5 0.45 NS. Trying to wean off vent. SAVANAH Rolon. Difficult to wean. We'll keep trying. Subjective Subjective Intubated, On vent. In ICU. Objective Objective Last 24 Hour Vital Signs Date Time Temp Pulse Resp B/P (MAP) Pulse Ox O2 Delivery O2 Flow Rate FiO2 08/13/18 14:00 71 15 138/68 (91) 100 08/13/18 13:07 69 14 40 08/13/18 13:00 69 14 137/63 (87) 100 08/13/18 12:00 Mechanical Ventilator Mechanical Ventilator 08/13/18 12:00 69 08/13/18 12:00 97.6 70 15 143/68 (93) 100 08/13/18 12:00 40 08/13/18 11:59 137/62 08/13/18 11:17 72 14 40 08/13/18 11:00 69 16 143/68 (93) 100 08/13/18 10:00 70 17 145/69 (94) 100 08/13/18 09:00 69 16 147/73 (97) 100 08/13/18 08:58 71 16 100 Mechanical Ventilator 40 08/13/18 08:53 79 14 40 08/13/18 08:53 100 08/13/18 08:51 74 37 40 08/13/18 08:50 71 18 100 Mechanical Ventilator 40 08/13/18 08:00 40 08/13/18 08:00 Mechanical Ventilator Mechanical Ventilator 08/13/18 08:00 70 16 152/76 (101) 100 08/13/18 08:00 70 08/13/18 07:00 69 15 146/70 (95) 100 08/13/18 06:50 69 14 40 08/13/18 06:00 69 16 145/68 (93) 100 08/13/18 05:00 68 15 132/65 (87) 100 08/13/18 04:53 68 14 40 08/13/18 04:21 70 19 143/69 (93) 100 08/13/18 04:00 71 08/13/18 04:00 40 08/13/18 04:00 98.4 70 18 100 08/13/18 04:00 Mechanical Ventilator Mechanical Ventilator 08/13/18 03:12 69 14 40 08/13/18 03:00 69 14 145/72 (96) 100 08/13/18 02:00 71 13 147/67 (93) 99 08/13/18 01:02 70 14 40 08/13/18 01:00 70 15 138/66 (90) 100 08/13/18 00:00 40 08/13/18 00:00 75 08/13/18 00:00 Mechanical Ventilator Mechanical Ventilator 08/13/18 00:00 98.4 68 14 142/70 (94) 100 08/12/18 23:00 70 14 139/73 (95) 100 08/12/18 22:52 69 14 40 08/12/18 22:25 71 18 100 Mechanical Ventilator 40 08/12/18 22:00 69 15 100 08/12/18 21:59 68 15 100 Mechanical Ventilator 40 08/12/18 21:01 70 14 40 08/12/18 21:00 70 14 100 08/12/18 20:00 98.0 70 14 138/77 (97) 100 08/12/18 20:00 73 08/12/18 20:00 Mechanical Ventilator Mechanical Ventilator 08/12/18 20:00 40 08/12/18 19:00 72 16 140/70 (93) 100 08/12/18 18:58 71 20 40 08/12/18 18:00 72 13 134/70 (91) 100 08/12/18 17:09 74 14 40 08/12/18 17:00 74 15 142/66 (91) 100 08/12/18 16:00 73 08/12/18 16:00 40 08/12/18 16:00 98.4 74 18 147/96 (113) 100 08/12/18 16:00 Mechanical Ventilator Mechanical Ventilator 08/12/18 15:00 73 16 133/65 (87) 99 08/12/18 14:52 72 17 40 Intake and Output 08/12/18 08/13/18 19:00 07:00 Intake Total 330 ml 330 ml Output Total 0 ml 0 ml Balance 330 ml 330 ml IV Total 330 ml 330 ml Output Urine Total 0 ml 0 ml # Bowel Movements 3 1 Laboratory Tests 08/13/18 10:26: White Blood Count 4.0L, Red Blood Count 3.46L, Hemoglobin 9.4L, Hematocrit 31.7L , Mean Corpuscular Volume 92, Mean Corpuscular Hemoglobin 27.1, Mean Corpuscular Hemoglobin Concent 29.6L, Red Cell Distribution Width 17.1H, Platelet Count 137L, Mean Platelet Volume 10.4H, Neutrophils (%) (Auto) 44.4L, Lymphocytes (%) (Auto) 32.7, Monocytes (%) (Auto) 14.7H, Eosinophils (%) (Auto) 7.1H, Basophils (%) (Auto) 1.1, Sodium Level 137, Potassium Level 3.7, Chloride Level 102, Carbon Dioxide Level 29, Anion Gap 7, Blood Urea Nitrogen 12, Creatinine 4.3H, Estimat Glomerular Filtration Rate 12.4, Glucose Level 61L, Calcium Level 8.6 Height (Feet): 5 Height (Inches): 7.00 Weight (Pounds): 225 Objective Intubated, On vent. Blind CV RR Lungs CTA Abd SNT. BS + E No CCE Neuro:Alert, nonfocal. Brenda Fuller MD Aug 13, 2018 14:23
[2018-08-13] MEDS ORDERED: Heparin Sod 1000 units/ml 10ml IV PRN (14:30)
--- NOTE | 2018-08-13 14:55 | NUR ---
NURSE NOTES: Dr. galindo rounded on patients bed side, no verbal orders given,
--- NOTE | 2018-08-13 15:56 | NUR ---
NURSE NOTES: Dr. Rolon notified about patient Weaning trial with setting of CPAP, PS of 8, FIO2 40% with peep of 5, ABG taken an hour when weaning started, awaiting for call back for orders, HR is 76-82 in sinus rhythm with BP of 125-69, sao2 is 98-99% with RR of 12, she remains awake and alert,
--- NOTE | 2018-08-13 16:01 | Cardiology Progress Note ---
Assessment/Plan Problem List: (1) UTI (urinary tract infection) (2) Pleural effusion (3) Peripheral vascular disease (4) ESRD (end stage renal disease) on dialysis (5) UTI due to extended-spectrum beta lactamase (ESBL) producing Escherichia coli (6) NSTEMI (non-ST elevated myocardial infarction) Status: stable, unchanged Status Narrative Pt remains on ventilator w/ difficulty weaning Has CHF due to severe MR and bilat pleural effusion s Assessment/Plan Continue fluid removal w/ HD ? thoracentesis Continue weaning attempts per pulmonary Subjective ROS Limited/Unobtainable: No Subjective Cardiology for Dr. Daley intubated/ awake. Able to respond w/ nodding/shaking head in response to questions Objective Last 24 Hour Vital Signs Date Time Temp Pulse Resp B/P (MAP) Pulse Ox O2 Delivery O2 Flow Rate FiO2 08/13/18 15:00 80 14 125/62 (83) 100 08/13/18 14:34 76 22 40 08/13/18 14:29 78 27 40 08/13/18 14:00 71 15 138/68 (91) 100 08/13/18 13:07 69 14 40 08/13/18 13:00 69 14 137/63 (87) 100 08/13/18 12:00 Mechanical Ventilator Mechanical Ventilator 08/13/18 12:00 69 08/13/18 12:00 97.6 70 15 143/68 (93) 100 08/13/18 12:00 40 08/13/18 11:59 137/62 08/13/18 11:17 72 14 40 08/13/18 11:00 69 16 143/68 (93) 100 08/13/18 10:00 70 17 145/69 (94) 100 08/13/18 09:00 69 16 147/73 (97) 100 08/13/18 08:58 71 16 100 Mechanical Ventilator 40 08/13/18 08:53 79 14 40 08/13/18 08:53 100 08/13/18 08:51 74 37 40 08/13/18 08:50 71 18 100 Mechanical Ventilator 40 08/13/18 08:00 40 08/13/18 08:00 Mechanical Ventilator Mechanical Ventilator 08/13/18 08:00 70 16 152/76 (101) 100 08/13/18 08:00 70 08/13/18 07:00 69 15 146/70 (95) 100 08/13/18 06:50 69 14 40 08/13/18 06:00 69 16 145/68 (93) 100 08/13/18 05:00 68 15 132/65 (87) 100 08/13/18 04:53 68 14 40 08/13/18 04:21 70 19 143/69 (93) 100 08/13/18 04:00 71 08/13/18 04:00 40 08/13/18 04:00 98.4 70 18 100 08/13/18 04:00 Mechanical Ventilator Mechanical Ventilator 08/13/18 03:12 69 14 40 08/13/18 03:00 69 14 145/72 (96) 100 08/13/18 02:00 71 13 147/67 (93) 99 08/13/18 01:02 70 14 40 08/13/18 01:00 70 15 138/66 (90) 100 08/13/18 00:00 40 08/13/18 00:00 75 08/13/18 00:00 Mechanical Ventilator Mechanical Ventilator 08/13/18 00:00 98.4 68 14 142/70 (94) 100 08/12/18 23:00 70 14 139/73 (95) 100 08/12/18 22:52 69 14 40 08/12/18 22:25 71 18 100 Mechanical Ventilator 40 08/12/18 22:00 69 15 100 08/12/18 21:59 68 15 100 Mechanical Ventilator 40 08/12/18 21:01 70 14 40 08/12/18 21:00 70 14 100 08/12/18 20:00 98.0 70 14 138/77 (97) 100 08/12/18 20:00 73 08/12/18 20:00 Mechanical Ventilator Mechanical Ventilator 08/12/18 20:00 40 08/12/18 19:00 72 16 140/70 (93) 100 08/12/18 18:58 71 20 40 08/12/18 18:00 72 13 134/70 (91) 100 08/12/18 17:09 74 14 40 08/12/18 17:00 74 15 142/66 (91) 100 08/12/18 16:00 73 08/12/18 16:00 40 08/12/18 16:00 98.4 74 18 147/96 (113) 100 08/12/18 16:00 Mechanical Ventilator Mechanical Ventilator General Appearance: WD/WN, alert, on vent EENT: PERRL/EOMI, other - et tube Neck: no JVD Rhythm: NSR Cardiovascular: normal rate, regular rhythm Respiratory/Chest: other - scattered rhonchi and expir wheezes bilat Abdomen: normal bowel sounds, non tender, soft Extremities: trace edema - 1+ distal LE edema bilat Intake and Output 08/12/18 08/13/18 19:00 07:00 Intake Total 330 ml 330 ml Output Total 0 ml 0 ml Balance 330 ml 330 ml IV Total 330 ml 330 ml Output Urine Total 0 ml 0 ml # Bowel Movements 3 1 Laboratory Tests Test 08/13/18 10:26 08/13/18 15:40 White Blood Count 4.0 K/UL (4.8-10.8) L Red Blood Count 3.46 M/UL (4.20-5.40) L Hemoglobin 9.4 G/DL (12.0-16.0) L Hematocrit 31.7 % (37.0-47.0) L Mean Corpuscular Volume 92 FL (80-99) Mean Corpuscular Hemoglobin 27.1 PG (27.0-31.0) Mean Corpuscular Hemoglobin Concent 29.6 G/DL (32.0-36.0) L Red Cell Distribution Width 17.1 % (11.6-14.8) H Platelet Count 137 K/UL (150-450) L Mean Platelet Volume 10.4 FL (6.5-10.1) H Neutrophils (%) (Auto) 44.4 % (45.0-75.0) L Lymphocytes (%) (Auto) 32.7 % (20.0-45.0) Monocytes (%) (Auto) 14.7 % (1.0-10.0) H Eosinophils (%) (Auto) 7.1 % (0.0-3.0) H Basophils (%) (Auto) 1.1 % (0.0-2.0) Sodium Level 137 MMOL/L (136-145) Potassium Level 3.7 MMOL/L (3.5-5.1) Chloride Level 102 MMOL/L (98-107) Carbon Dioxide Level 29 MMOL/L (21-32) Anion Gap 7 mmol/L (5-15) Blood Urea Nitrogen 12 mg/dL (7-18) Creatinine 4.3 MG/DL (0.55-1.30) H Estimat Glomerular Filtration Rate 12.4 mL/min (>60) Glucose Level 61 MG/DL (74-106) L Calcium Level 8.6 MG/DL (8.5-10.1) Arterial Blood pH 7.419 (7.350-7.450) Arterial Blood Partial Pressure CO2 44.9 mmHg (35.0-45.0) Arterial Blood Partial Pressure O2 73.9 mmHg (75.0-100.0) L Arterial Blood HCO3 28.4 mmol/L (22.0-26.0) H Arterial Blood Oxygen Saturation 94.1 % (95-100) L Arterial Blood Base Excess 3.5 (-2-2) H Nicola Test Positive Jess Jensen MD Aug 13, 2018 16:01
--- NOTE | 2018-08-13 16:56 | NUR ---
Placed back on previous settings tolerated weaning well.
--- NOTE | 2018-08-13 17:04 | NUR ---
NURSE NOTES: Patient placed be to AC 14, 500, FIo2 40% with peep of 5, patent expressed she was feeling tired with HR at 80 and BP of 114/56, RR is 14 and sao2 of 100%, remains alert ti name.
--- NOTE | 2018-08-13 18:47 | NUR ---
RESPIRATORY NOTE: Received pt on AC 14, 500VT, 40%, PEEP +5. Pt intubated w/ ETT 7.0 @ 22cm lipline, secured by anchorfast. Pt is alert/awake, follows commands, no restraints. B/S marta. rhonchi, sxn small amounts of thick/thin, white secretions. Vent plugged into red outlet, ambubag at bedside. Pt denies SOB/chest pain at this time. Will continue to monitor pt.
[2018-08-13] MEDS: Sennosides 8.6mg tab ORAL SCH (20:22)
--- NOTE | 2018-08-13 20:58 | NUR ---
NURSE NOTES: Called Dr. Sparks regarding patient blood glucose always on the low side, asked MD if he wants to order OGT Feeding for the patients per MD start Nephro at 30cc/hr and discontinue the D10 at 30cc/hr noted and carried. charge nurse and Patient made aware
--- NOTE | 2018-08-13 22:00 | NUR ---
NURSE NOTES: Explained to patient the importance v/s risk and benefits of Nephro feeding, patient agreed and understand to have feeding via OGT. Start Nephro feeding via OGT at 10cc/hr goal 30cc/hr. No residual. will continue to monitor patient. HOB elevated. Abdomen soft and non distended with + bowel sounds in all 4 quadrants.
[2018-08-14] VITALS (24 sets, daily range): BP systolic 126–153; BP diastolic 58–111
--- NOTE | 2018-08-14 02:00 | NUR ---
NURSE NOTES: patient in bed sleeping comfortably. On Nephro at 20cc/hr no residual. HOB elevated. no s/s of hypo/hyperglycemia. On P200 for wound management. No s/s of acute distress noted. Call light within easy reach. Will continue plan of care.
--- NOTE | 2018-08-14 04:00 | NUR ---
NURSE NOTES: Bed bath given tolerated well, patient able to hold on the side rails when turning. With x1 diarrhea. patient able to suction self orally. OGT intact with 5cc residual. HOB elevated. Call light within easy reach.
--- NOTE | 2018-08-14 06:00 | NUR ---
NURSE NOTES: Patient blood glucose 79mg/dl. no s/s of hypo/hyperglycemia.
--- NOTE | 2018-08-14 06:50 | NUR ---
RESPIRATORY NOTE: Received Patient intubated with 7.0 ETT @ 22cm lips line, secured by anchor fast on Vent settings of ACVC RR 14, VT 500, FIO2 40%, PEEP +5, saturates at 100%. Gary Diminished rhonchi breath sounds, SX moderate amount of thin/ thick clear white secretions. Vent plugged into red outlet. Alarms are on and audible. Ambu bag is at bedside. Will continue to monitor throughout the day.
--- NOTE | 2018-08-14 07:24 | Critical Care Progress Note ---
Assessment/Plan Assessment/Plan IMPRESSION: 1. Acute on chronic respiratory failure. 2. Acute hypercapnia, resolved with positive pressure ventilation 3. Hypoxemia. 4. Bilateral pleural effusions. and pulmonary edema 5. Fluid overload. 6. End-stage renal disease. 7. Severe protein-calorie malnutrition. 8. Anemia. 9. Thrombocytopenia. 10. Mild coagulopathy. 11. acute on chronic encephalopathy PLAN likely needs trach with poor baseline and labile ability to maintain on CPAP likely has obesity hypoventilation would recommend to proceed and place and placement in subacute will try to wean again -today monitor acid base for change sedation off- as able will follow up for change and monitor clinically nutrition as able and aspiration precautions keep negative as per renal and cards medications/laboratory data/nursing notes/ICU care reviewed in detail note reviewed and edited care discussed with RN and RT ICU time spent 40 minutes Critical Care - Subjective Interval Events: tolerated CPAP but tired out placed back on AC was maintaining acid base ROS Limited/Unobtainable: Yes Condition: critical EKG Rhythm: Sinus Rhythm Residuals: minimal Tube Feeding Tolerated: yes I&O: Intake and Output 08/13/18 08/14/18 19:00 07:00 Intake Total 420 ml 260 ml Output Total 0 ml 0 ml Balance 420 ml 260 ml Intake Oral 60 ml Free Water 50 ml IV Total 360 ml 60 ml Tube Feeding 150 ml Output Urine Total 0 ml 0 ml # Voids 1 # Bowel Movements 4 2 Critical Care - Objective ET-Tube: 7.0 ET Position: 22 Last 24 Hour Vital Signs Date Time Temp Pulse Resp B/P (MAP) Pulse Ox O2 Delivery O2 Flow Rate FiO2 08/14/18 06:00 97.6 68 16 140/66 (90) 100 08/14/18 05:00 68 16 137/65 (89) 100 08/14/18 04:50 69 16 40 08/14/18 04:00 40 08/14/18 04:00 71 08/14/18 04:00 98.0 71 16 130/84 (99) 100 08/14/18 04:00 Mechanical Ventilator Mechanical Ventilator 08/14/18 03:00 69 17 139/58 (85) 100 08/14/18 02:52 69 14 40 08/14/18 02:00 69 14 136/67 (90) 100 08/14/18 01:00 67 14 40 08/14/18 01:00 73 14 140/62 (88) 100 08/14/18 00:00 98.1 78 17 138/76 (96) 99 08/14/18 00:00 68 08/14/18 00:00 Mechanical Ventilator Mechanical Ventilator 08/14/18 00:00 40 08/13/18 23:09 69 15 40 08/13/18 23:00 71 13 139/68 (91) 100 08/13/18 22:00 71 12 152/64 (93) 100 08/13/18 21:38 76 20 100 Mechanical Ventilator 40 08/13/18 21:23 70 15 100 Mechanical Ventilator 40 08/13/18 21:22 70 15 40 08/13/18 21:00 72 19 147/69 (95) 100 08/13/18 20:00 Mechanical Ventilator Mechanical Ventilator 08/13/18 20:00 98.0 70 14 141/80 (100) 100 08/13/18 20:00 71 08/13/18 19:00 70 16 116/82 (93) 100 08/13/18 18:45 70 14 40 08/13/18 18:00 71 17 136/65 (88) 100 08/13/18 17:00 76 14 125/61 (82) 100 08/13/18 17:00 40 08/13/18 16:57 79 24 40 08/13/18 16:00 Mechanical Ventilator Mechanical Ventilator 08/13/18 16:00 40 08/13/18 16:00 182 08/13/18 16:00 97.3 80 14 114/56 (75) 100 08/13/18 15:00 80 14 125/62 (83) 100 08/13/18 14:34 76 22 40 08/13/18 14:29 78 27 40 08/13/18 14:00 71 15 138/68 (91) 100 08/13/18 14:00 40 08/13/18 13:07 69 14 40 08/13/18 13:00 69 14 137/63 (87) 100 08/13/18 12:00 Mechanical Ventilator Mechanical Ventilator 08/13/18 12:00 69 08/13/18 12:00 97.6 70 15 143/68 (93) 100 08/13/18 12:00 40 08/13/18 11:59 137/62 08/13/18 11:17 72 14 40 08/13/18 11:00 69 16 143/68 (93) 100 08/13/18 10:00 70 17 145/69 (94) 100 08/13/18 09:00 69 16 147/73 (97) 100 08/13/18 08:58 71 16 100 Mechanical Ventilator 40 08/13/18 08:53 79 14 40 08/13/18 08:53 100 08/13/18 08:51 74 37 40 08/13/18 08:50 71 18 100 Mechanical Ventilator 40 08/13/18 08:00 40 08/13/18 08:00 Mechanical Ventilator Mechanical Ventilator 08/13/18 08:00 70 16 152/76 (101) 100 08/13/18 08:00 70 Labs: Labs Test 08/13/18 10:26 08/13/18 15:40 White Blood Count 4.0 K/UL (4.8-10.8) Red Blood Count 3.46 M/UL (4.20-5.40) Hemoglobin 9.4 G/DL (12.0-16.0) Hematocrit 31.7 % (37.0-47.0) Mean Corpuscular Volume 92 FL (80-99) Mean Corpuscular Hemoglobin 27.1 PG (27.0-31.0) Mean Corpuscular Hemoglobin Concent 29.6 G/DL (32.0-36.0) Red Cell Distribution Width 17.1 % (11.6-14.8) Platelet Count 137 K/UL (150-450) Mean Platelet Volume 10.4 FL (6.5-10.1) Neutrophils (%) (Auto) 44.4 % (45.0-75.0) Lymphocytes (%) (Auto) 32.7 % (20.0-45.0) Monocytes (%) (Auto) 14.7 % (1.0-10.0) Eosinophils (%) (Auto) 7.1 % (0.0-3.0) Basophils (%) (Auto) 1.1 % (0.0-2.0) Sodium Level 137 MMOL/L (136-145) Potassium Level 3.7 MMOL/L (3.5-5.1) Chloride Level 102 MMOL/L (98-107) Carbon Dioxide Level 29 MMOL/L (21-32) Anion Gap 7 mmol/L (5-15) Blood Urea Nitrogen 12 mg/dL (7-18) Creatinine 4.3 MG/DL (0.55-1.30) Estimat Glomerular Filtration Rate 12.4 mL/min (>60) Glucose Level 61 MG/DL (74-106) Calcium Level 8.6 MG/DL (8.5-10.1) Arterial Blood pH 7.419 (7.350-7.450) Arterial Blood Partial Pressure CO2 44.9 mmHg (35.0-45.0) Arterial Blood Partial Pressure O2 73.9 mmHg (75.0-100.0) Arterial Blood HCO3 28.4 mmol/L (22.0-26.0) Arterial Blood Oxygen Saturation 94.1 % (95-100) Arterial Blood Base Excess 3.5 (-2-2) Nicola Test Positive Objective: WDWN NAD orally intubated reduced breath sounds bilaterally without rhonchi or wheeze [id number] without MRG NABS nontender no HSM; feeding tube no CC edema nonfocal and altered without change skin exam reviewed and examined Accucheck: 75 Gustavo Rolon MD Aug 14, 2018 07:24
--- NOTE | 2018-08-14 07:29 | NUR ---
HAND-OFF: Report given to CHAPIS Osei. Patient with diarrhea held OGT feeding will follow up with Child And Adolescent Psychologist and MD to check OGT feeding.
--- NOTE | 2018-08-14 07:30 | NUR ---
NURSE NOTES: RECEIVED PATIENT FROM Pepe CHILDS RN. PATIENT IS LYING IN BED, ALERT, AWAKE BUT NON RESPONSIVE. HOOKED TO FILTER PULP WASHER. ON 2L NC. NO SIGNS OF CARDIO OR RESPI DISTRESS. ON NPO. NOTED OCONNELL CONNECTED TO BAG, PATENT AND DRAINING. ON P200 MATTRESS. NOTED SKIN ALTERATION. WITH IV ON L HAND G20, AND R FEMORAL TLC WITH IVF RUNNING D5 NS AT 75CC/HR. CALL LIGHT WITHIN REACH. BED AT LOWEST POSITION. SIDE RAILS UP. WILL CONTINUE TO MONITOR. Addendum: 08/14/18 at 0745 by JOAO ALBRECHT RN NURSE NOTES: WRONG PATIENT
--- NOTE | 2018-08-14 07:30 | NUR ---
NURSE NOTES: RECEIVED PATIENT FROM Pepe CHILDS RN. PATIENT IS AWAKE AND RESPONSIVE. BUT LEGALLY BLIND. HOOKED TO BINDING DYER. ORALLY INTUBATED. ETT 7.0 AT 22CM LIP LINE. WITH VENT SETTINGS OF AC 14, TV500, FIO2 30, PEEP 5. NO SIGNS OF CARDIO OR RESPI OF THE MOMENT. ON NEPRO AT 30CC/HR. NOTED LOOSE BM. WITH LEFT HEEL ULCER, DRY AND INTACT CONNECTED TO WOUND VAC. IV ON L HAND G22, SL AND R UA SHUNT FOR HD PORT. CALL LIGHT WITHIN REACH. SIDE RAILS UP. BED AT LOWEST POSITION. WILL CONTINUE TO MONITOR.
[2018-08-14] MEDS: Pantoprazole Inj IVP SCH (08:40)
[2018-08-14] MEDS: Losartan 25mg tab ORAL SCH (08:41)
[2018-08-14] MEDS: Nephrovite tab (Rena-Vite) ORAL SCH (08:41)
[2018-08-14] MEDS: Aspirin Baby 81mg ORAL SCH (08:43)
[2018-08-14] MEDS: Docusate 100mg cap ORAL SCH ×3 (08:43→11:25)
[2018-08-14] MEDS: Spironolactone 25mg tab ORAL SCH (08:43)
[2018-08-14] MEDS: Heparin 5000 units/ml inj SUBQ SCH ×2 (08:46→21:13)
[2018-08-14] MEDS: Miconazole 2% Cr 15gm TOPIC SCH ×2 (09:00→17:48)
--- NOTE | 2018-08-14 09:18 | NUR ---
RESPIRATORY NOTE: Weaning started at 09 with the setting CPAP 40%- PS 8. WOB increased, RR> 30, low Vt< 200ml. Encouraged pt to take deep breaths and try to breath spontaneously, but poor effort, no improvement. Placed pt back on AC mode. CHAPIS Osei made aware. Will continue to monitor.
--- NOTE | 2018-08-14 09:30 | NUR ---
NURSE NOTES: PATIENT KEPT CLEAN AND DRY. NOTED LOOSE BM. TOLERATED FEEDING. WILL CONTINUE TO MONITOR.
[2018-08-14] MEDS: Colistin for inhalation INH SCH (10:23)
--- NOTE | 2018-08-14 11:05 | NUR ---
HAND-OFF: Report given to Dhruv Morse RN.
--- NOTE | 2018-08-14 11:26 | NUR ---
RD ASSESSMENT & RECOMMENDATIONS SEE CARE ACTIVITY FOR COMPLETE ASSESSMENT DAILY ESTIMATED NEEDS: Needs based on ESRD on HD, Wounds, CRITICAL CARE (Adj Wt 71kg) 22-28 kcals/kg 8059-1327 total kcals 1.25-2 g protein/kg 88-142 g total protein Fluid per MD, on HD NUTRITION DIAGNOSIS: 1) Increased kcal, pro needs R/T wound healing and renal dysfunction as evidenced by pt w/ left heel, sacral and lt ischial wounds, w/ ESRD on HD, s/p oral intubation, now on OGT feeds. 2) Altered nutrition related lab values R/T diabetes, clinical condition as evidenced by pt now w/ hypoglycemic episodes, improved. CURRENT TF: Nepro @30ml/hr ENTERAL NUTRITION RECOMMENDATIONS: Nepro @ 40ml/hr x 24 hrs + Prosource x1 pack daily to provide 960ml, 1728kcal, 77g + 11g prot, 698ml free water * As medically appropriate, obtain GI access, initiate Nepro @ 10ml/hr x 6 hrs, advance 5ml q 4-6 hrs as tolerated to goal rate. * HOB over 30 degrees/ water flush per MD. ADDITIONAL RECOMMENDATIONS: 1) Rec to initiate TF to help prevent further episodes of hypoglycemia and remains orally intubated (NPO day 8 since intubation) 2) STONE GANG SAWYER evaluation post extubation 3) Monitor BGs closely 4) Add Dimitry 1pkt BID for wound healing 6) Obtain dry wt post HD on a calibrated bed scale-> RE-CALIBRATE BED 7) UPDATED LYTES, BG-> PT STARTED OGT FEEDS .
--- NOTE | 2018-08-14 11:55 | NUR ---
NURSE NOTES: scallop cutter here to start dialysis. No acute distress. Will continue to monitor.
--- NOTE | 2018-08-14 13:32 | Infectious Diseases Prog Note ---
"Assessment/Plan Assessment/Plan A: 1. enterococcus | streptococcus UTI 2. pneumonia 3. diabetes mellitus 4. hypertension 5. renal failure on hemodialysis 6. history of left foot osteomyelitis &. Hypercapnic respiratory failure 9. Pleural effusion, more in R side 10. Acinetobacter pneumonia P 1. Discontinue Colistin inhaler 2. Observe off antibiotic Subjective ROS Limited/Unobtainable: Yes Respiratory: Reports: other - failed weaning Allergies: Coded Allergies: BENAZEPRIL (Verified Allergy, Unknown, 06/12/18) CODEINE (Verified Allergy, Unknown, 06/12/18) INSULIN ASPART (Verified Allergy, Unknown, 06/12/18) INSULIN DETEMIR (Verified Allergy, Unknown, 06/12/18) OPIOIDS - MORPHINE ANALOGUES (Verified Allergy, Unknown, 06/12/18) Objective Vital Signs Last 24 Hour Vital Signs Date Time Temp Pulse Resp B/P (MAP) Pulse Ox O2 Delivery O2 Flow Rate FiO2 08/14/18 13:00 73 15 151/70 (97) 100 08/14/18 12:00 Mechanical Ventilator Mechanical Ventilator Mechanical Ventilator 08/14/18 12:00 40 08/14/18 12:00 71 18 151/70 (97) 100 08/14/18 12:00 71 08/14/18 11:00 70 18 153/83 (106) 100 08/14/18 10:37 71 17 Mechanical Ventilator 40 08/14/18 10:35 77 16 40 08/14/18 10:34 70 16 100 Mechanical Ventilator 40 08/14/18 10:23 71 17 100 Mechanical Ventilator 40 08/14/18 10:00 78 22 149/85 (106) 100 08/14/18 09:17 100 08/14/18 09:17 71 14 40 08/14/18 09:16 71 30 40 08/14/18 09:07 70 20 40 08/14/18 09:00 74 18 149/85 (106) 100 08/14/18 08:41 140/69 08/14/18 08:00 77 08/14/18 08:00 40 08/14/18 08:00 98.0 70 17 130/82 (98) 100 08/14/18 08:00 Mechanical Ventilator Mechanical Ventilator 08/14/18 07:00 68 14 145/65 (91) 100 08/14/18 06:50 69 14 40 08/14/18 06:00 97.6 68 16 140/66 (90) 100 08/14/18 05:00 68 16 137/65 (89) 100 08/14/18 04:50 69 16 40 08/14/18 04:00 40 08/14/18 04:00 71 08/14/18 04:00 98.0 71 16 130/84 (99) 100 08/14/18 04:00 Mechanical Ventilator Mechanical Ventilator 08/14/18 03:00 69 17 139/58 (85) 100 08/14/18 02:52 69 14 40 08/14/18 02:00 69 14 136/67 (90) 100 08/14/18 01:00 67 14 40 08/14/18 01:00 73 14 140/62 (88) 100 08/14/18 00:00 98.1 78 17 138/76 (96) 99 08/14/18 00:00 68 08/14/18 00:00 Mechanical Ventilator Mechanical Ventilator 08/14/18 00:00 40 08/13/18 23:09 69 15 40 08/13/18 23:00 71 13 139/68 (91) 100 08/13/18 22:00 71 12 152/64 (93) 100 08/13/18 21:38 76 20 100 Mechanical Ventilator 40 08/13/18 21:23 70 15 100 Mechanical Ventilator 40 08/13/18 21:22 70 15 40 08/13/18 21:00 72 19 147/69 (95) 100 08/13/18 20:00 Mechanical Ventilator Mechanical Ventilator 08/13/18 20:00 98.0 70 14 141/80 (100) 100 08/13/18 20:00 71 08/13/18 19:00 70 16 116/82 (93) 100 08/13/18 18:45 70 14 40 08/13/18 18:00 71 17 136/65 (88) 100 08/13/18 17:00 76 14 125/61 (82) 100 08/13/18 17:00 40 08/13/18 16:57 79 24 40 08/13/18 16:00 Mechanical Ventilator Mechanical Ventilator 08/13/18 16:00 40 08/13/18 16:00 182 08/13/18 16:00 97.3 80 14 114/56 (75) 100 08/13/18 15:00 80 14 125/62 (83) 100 08/13/18 14:34 76 22 40 08/13/18 14:29 78 27 40 08/13/18 14:00 71 15 138/68 (91) 100 08/13/18 14:00 40 Height (Feet): 5 Height (Inches): 7.00 Weight (Pounds): 224 General Appearance: no acute distress HEENT: other - R corneal opacity Respiratory/Chest: decreased breath sounds, other - orally intubated, on ventilator Cardiovascular: normal rate Abdomen: soft, non tender, other - orogastric tube Extremities: other - edema, R BKA Neurologic/Psychiatric: alert, responsive Laboratory Tests Test 08/13/18 15:40 Arterial Blood pH 7.419 (7.350-7.450) Arterial Blood Partial Pressure CO2 44.9 mmHg (35.0-45.0) Arterial Blood Partial Pressure O2 73.9 mmHg (75.0-100.0) L Arterial Blood HCO3 28.4 mmol/L (22.0-26.0) H Arterial Blood Oxygen Saturation 94.1 % (95-100) L Arterial Blood Base Excess 3.5 (-2-2) H Nicola Test Positive Current Medications Medications (Trade) Dose Ordered Sig/Andre Route PRN Reason Start Time Stop Time Status Last Admin Dose Admin Acetaminophen (Tylenol) 650 mg Q6H PRN ORAL Mild Pain/Temp > 100.5 08/02/18 11:45 08/16/18 23:44 Aspirin (ASA) 81 mg DAILY ORAL 08/02/18 12:30 09/01/18 12:29 08/14/18 08:43 Colistimethate Sodium (Colistin *inhalation use only*) 75 mg Q12HR@10,22 INH 08/07/18 22:00 08/15/18 23:00 08/14/18 10:23 Dextrose (Dextrose 50%) 25 ml Q30M PRN IV Hypoglycemia 08/02/18 12:00 08/17/18 11:59 08/13/18 20:34 Dextrose (Dextrose 50%) 50 ml Q30M PRN IV Hypoglycemia 08/02/18 12:00 08/17/18 11:59 08/14/18 11:48 Diphenoxylate HCl/ Atropine (Lomotil) 2.5 mg Q4H PRN ORAL Diarrhea 08/02/18 12:30 08/29/18 12:29 Docusate Sodium (Colace) 100 mg THREE TIMES A DAY ORAL 08/02/18 13:00 08/17/18 08:59 08/14/18 11:25 Epoetin Marcus (Procrit (for ESRD on dialysis)) 10,000 units TUE-TUE-TUE SUBQ 08/04/18 21:00 08/18/18 20:59 08/11/18 20:47 Heparin Sodium (Porcine) (Heparin 5000 units/ml) 5,000 units EVERY 12 HOURS SUBQ 08/02/18 21:00 08/17/18 08:59 08/14/18 08:46 Heparin Sodium (Porcine) (Heparin Sod 1000 units/ml 10ml) 2,000 unit ONCE PRN IV FOR HD USE ONLY 08/13/18 14:30 08/14/18 23:59 Losartan Potassium (Cozaar) 25 mg DAILY ORAL 08/10/18 09:00 09/09/18 08:59 08/14/18 08:41 Miconazole Nitrate (Monistat-Derm) 1 applic TWICE A DAY TOPIC 08/09/18 21:30 09/08/18 21:29 08/14/18 09:00 Pantoprazole (Protonix) 40 mg DAILY IVP 08/03/18 09:00 09/02/18 08:59 08/14/18 08:40 Polyethylene Glycol (Miralax) 17 gm DAILYPRN PRN ORAL Constipation 08/02/18 13:00 08/26/18 12:59 Sennosides (Senokot) 17.2 mg QHS ORAL 08/02/18 21:00 08/17/18 20:59 08/04/18 20:34 Sodium Chloride 1,000 ml @ 500 mls/hr Q2H PRN IVLG sbp<90 during hd 08/13/18 14:26 08/14/18 23:59 Spironolactone (Aldactone) 25 mg DAILY ORAL 08/14/18 09:00 09/13/18 08:59 08/14/18 08:43 Vitamin B Complex/ Vit C/Folic Acid (Nephrovite) 1 tab DAILY ORAL 08/02/18 13:00 09/01/18 12:59 08/14/18 08:41 Joe Melgar MD Aug 14, 2018 13:32"
--- NOTE | 2018-08-14 13:40 | NUR ---
NURSE NOTES: Dr Yana Melgar here to see pt. Dialysis ongoing. No acute distress. Will continue to monitor.
--- NOTE | 2018-08-14 15:16 | NUR ---
NURSE NOTES: HD complete. 3500 ml out. No acute distress. Will continue to monitor.
--- NOTE | 2018-08-14 15:44 | Pulmonolgy Critical Care Note ---
Critical Care - Asmt/Plan Assessment/Plan: Pulmonary CCM Progress Note Assessment/Plan IMPRESSION: 1. Acute on chronic respiratory failure. 2. Acute hypercapnia, resolved with positive pressure ventilation 3. Hypoxemia. 4. Bilateral pleural effusions. and pulmonary edema 5. Fluid overload. 6. End-stage renal disease. 7. Severe protein-calorie malnutrition. 8. Anemia. 9. Thrombocytopenia. 10. Mild coagulopathy. 11. acute on chronic encephalopathy PLAN likely needs trach with poor baseline likely has obesity hypoventilation would recommend to proceed and place in subacute will try to wean again as able monitor acid base sedation off- reduce in hopes of wean will follow up for change and monitor clinically nutrition as able and aspiration precautions keep negative as per renal and cards medications/laboratory data/nursing notes/ICU care reviewed in detail note reviewed and edited care discussed with RN and RT ICU time spent 38 minutes Objective Vital Signs Noted Objective: WDWN NAD orally intubated reduced breath sounds bilaterally without rhonchi or wheeze [id number] without MRG NABS nontender no HSM; feeding tube no CC edema nonfocal skin exam Critical Care - Subjective Interval Events: try to wean put back to AC ROS Limited/Unobtainable: Yes Condition: critical EKG Rhythm: Sinus Rhythm Residuals: minimal Tube Feeding Tolerated: yes Critical Care - Objective ET-Tube: 7.0 ET Position: 22 Labs Test 08/06/18 04:45 08/06/18 08:10 08/07/18 05:50 08/07/18 16:30 White Blood Count 5.2 K/UL (4.8-10.8) 5.3 K/UL (4.8-10.8) Red Blood Count 3.00 M/UL (4.20-5.40) 2.95 M/UL (4.20-5.40) Hemoglobin 8.3 G/DL (12.0-16.0) 8.0 G/DL (12.0-16.0) Hematocrit 27.2 % (37.0-47.0) 26.8 % (37.0-47.0) Mean Corpuscular Volume 91 FL (80-99) 91 FL (80-99) Mean Corpuscular Hemoglobin 27.6 PG (27.0-31.0) 27.2 PG (27.0-31.0) Mean Corpuscular Hemoglobin Concent 30.4 G/DL (32.0-36.0) 30.0 G/DL (32.0-36.0) Red Cell Distribution Width 17.8 % (11.6-14.8) 17.3 % (11.6-14.8) Platelet Count 160 K/UL (150-450) 154 K/UL (150-450) Mean Platelet Volume 10.4 FL (6.5-10.1) 9.8 FL (6.5-10.1) Neutrophils (%) (Auto) 61.9 % (45.0-75.0) 60.8 % (45.0-75.0) Lymphocytes (%) (Auto) 21.1 % (20.0-45.0) 19.7 % (20.0-45.0) Monocytes (%) (Auto) 9.3 % (1.0-10.0) 10.9 % (1.0-10.0) Eosinophils (%) (Auto) 7.2 % (0.0-3.0) 8.0 % (0.0-3.0) Basophils (%) (Auto) 0.5 % (0.0-2.0) 0.7 % (0.0-2.0) Sodium Level 136 MMOL/L (136-145) 134 MMOL/L (136-145) Potassium Level 3.9 MMOL/L (3.5-5.1) 3.7 MMOL/L (3.5-5.1) Chloride Level 102 MMOL/L (98-107) 101 MMOL/L (98-107) Carbon Dioxide Level 27 MMOL/L (21-32) 26 MMOL/L (21-32) Anion Gap 7 mmol/L (5-15) 7 mmol/L (5-15) Blood Urea Nitrogen 21 mg/dL (7-18) 22 mg/dL (7-18) Creatinine 4.2 MG/DL (0.55-1.30) 4.5 MG/DL (0.55-1.30) Estimat Glomerular Filtration Rate 12.7 mL/min (>60) 11.6 mL/min (>60) Glucose Level 70 MG/DL (74-106) 73 MG/DL (74-106) Calcium Level 8.8 MG/DL (8.5-10.1) 8.8 MG/DL (8.5-10.1) Magnesium Level 2.2 MG/DL (1.8-2.4) Arterial Blood pH 7.400 (7.350-7.450) 7.367 (7.350-7.450) Arterial Blood Partial Pressure CO2 39.8 mmHg (35.0-45.0) 53.5 mmHg (35.0-45.0) Arterial Blood Partial Pressure O2 197.0 mmHg (75.0-100.0) 52.3 mmHg (75.0-100.0) Arterial Blood HCO3 24.1 mmol/L (22.0-26.0) 30.0 mmol/L (22.0-26.0) Arterial Blood Oxygen Saturation 99.3 % (95-100) 84.0 % (95-100) Arterial Blood Base Excess -6.0 (-2-2) 4 (-2-2) Nicola Test Positive Positive Critical Care - Objective Last 24 Hour Vital Signs Date Time Temp Pulse Resp B/P (MAP) Pulse Ox O2 Delivery O2 Flow Rate FiO2 08/14/18 15:05 79 15 40 08/14/18 15:00 73 15 150/76 (100) 100 08/14/18 14:00 73 17 126/62 (83) 100 08/14/18 13:20 70 16 40 08/14/18 13:00 98.0 73 15 151/70 (97) 100 08/14/18 12:00 Mechanical Ventilator Mechanical Ventilator Mechanical Ventilator 08/14/18 12:00 40 08/14/18 12:00 71 18 151/70 (97) 100 08/14/18 12:00 71 08/14/18 11:00 70 18 153/83 (106) 100 08/14/18 10:37 71 17 Mechanical Ventilator 40 08/14/18 10:35 77 16 40 08/14/18 10:34 70 16 100 Mechanical Ventilator 40 08/14/18 10:23 71 17 100 Mechanical Ventilator 40 08/14/18 10:00 78 22 149/85 (106) 100 08/14/18 09:17 100 08/14/18 09:17 71 14 40 08/14/18 09:16 71 30 40 08/14/18 09:07 70 20 40 08/14/18 09:00 74 18 149/85 (106) 100 08/14/18 08:41 140/69 08/14/18 08:00 77 08/14/18 08:00 40 08/14/18 08:00 98.0 70 17 130/82 (98) 100 08/14/18 08:00 Mechanical Ventilator Mechanical Ventilator 08/14/18 07:00 68 14 145/65 (91) 100 08/14/18 06:50 69 14 40 08/14/18 06:00 97.6 68 16 140/66 (90) 100 08/14/18 05:00 68 16 137/65 (89) 100 08/14/18 04:50 69 16 40 08/14/18 04:00 40 08/14/18 04:00 71 08/14/18 04:00 98.0 71 16 130/84 (99) 100 08/14/18 04:00 Mechanical Ventilator Mechanical Ventilator 08/14/18 03:00 69 17 139/58 (85) 100 08/14/18 02:52 69 14 40 08/14/18 02:00 69 14 136/67 (90) 100 08/14/18 01:00 67 14 40 08/14/18 01:00 73 14 140/62 (88) 100 08/14/18 00:00 98.1 78 17 138/76 (96) 99 08/14/18 00:00 68 08/14/18 00:00 Mechanical Ventilator Mechanical Ventilator 08/14/18 00:00 40 08/13/18 23:09 69 15 40 08/13/18 23:00 71 13 139/68 (91) 100 08/13/18 22:00 71 12 152/64 (93) 100 08/13/18 21:38 76 20 100 Mechanical Ventilator 40 08/13/18 21:23 70 15 100 Mechanical Ventilator 40 08/13/18 21:22 70 15 40 08/13/18 21:00 72 19 147/69 (95) 100 08/13/18 20:00 Mechanical Ventilator Mechanical Ventilator 08/13/18 20:00 98.0 70 14 141/80 (100) 100 08/13/18 20:00 71 08/13/18 19:00 70 16 116/82 (93) 100 08/13/18 18:45 70 14 40 08/13/18 18:00 71 17 136/65 (88) 100 08/13/18 17:00 76 14 125/61 (82) 100 08/13/18 17:00 40 08/13/18 16:57 79 24 40 08/13/18 16:00 Mechanical Ventilator Mechanical Ventilator 08/13/18 16:00 40 08/13/18 16:00 182 08/13/18 16:00 97.3 80 14 114/56 (75) 100 Accucheck: 57 Critical Care - Subjective ROS Limited/Unobtainable: No FI02: 40 Vent Support Breath Rate: 14 Vent Support Mode: AC Vent Tidal Volume: 500 Sputum Amount: Moderate PEEP: 5.0 PIP: 28 Tube Feeding Amount: 30 I&O: Intake and Output 08/13/18 08/14/18 19:00 07:00 Intake Total 420 ml 260 ml Output Total 0 ml 0 ml Balance 420 ml 260 ml Intake Oral 60 ml Free Water 50 ml IV Total 360 ml 60 ml Tube Feeding 150 ml Output Urine Total 0 ml 0 ml # Voids 1 # Bowel Movements 4 2 ET-Tube: 7.0 ET Position: 22 Joaquin Mackenzie MD Aug 14, 2018 15:44
--- NOTE | 2018-08-14 16:07 | NUR ---
NURSE NOTES: Son at bedside visiting with pt. No acute distress. Will continue to monitor.
--- NOTE | 2018-08-14 17:00 | NUR ---
NURSE NOTES: Dr Daley here to see pt. No new orders. No acute distress. Will continue to monitor.
[2018-08-14] MEDS ORDERED: D5W 275ml ONE (17:18)
--- NOTE | 2018-08-14 17:59 | Nephrology Progress Note ---
Assessment/Plan Plan VDRF. B pleural Effusion. Severe CHF. DW Dr. Daley! Try to alleviate. 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 On IV Abx per ID. HD MWF. Increase UF on HD. Try to wean off vent. Still unable to wean despite the fact that she's very alert! Add ARBs, Aldactone Maintain euglycemia with IV D5 0.45 NS. Trying to wean off vent. SAVANAH Rolon. Difficult to wean. We'll keep trying. Subjective Subjective Intubated, On vent. In ICU. Objective Objective Last 24 Hour Vital Signs Date Time Temp Pulse Resp B/P (MAP) Pulse Ox O2 Delivery O2 Flow Rate FiO2 08/14/18 17:00 73 15 137/111 (120) 100 08/14/18 17:00 82 21 30 08/14/18 16:00 98.3 74 18 135/77 (96) 100 08/14/18 16:00 40 08/14/18 16:00 Mechanical Ventilator Mechanical Ventilator Mechanical Ventilator 08/14/18 16:00 74 08/14/18 15:05 79 15 40 08/14/18 15:00 73 15 150/76 (100) 100 08/14/18 14:00 73 17 126/62 (83) 100 08/14/18 13:20 70 16 40 08/14/18 13:00 98.0 73 15 151/70 (97) 100 08/14/18 12:00 Mechanical Ventilator Mechanical Ventilator Mechanical Ventilator 08/14/18 12:00 40 08/14/18 12:00 71 18 151/70 (97) 100 08/14/18 12:00 71 08/14/18 11:00 70 18 153/83 (106) 100 08/14/18 10:37 71 17 Mechanical Ventilator 40 08/14/18 10:35 77 16 40 08/14/18 10:34 70 16 100 Mechanical Ventilator 40 08/14/18 10:23 71 17 100 Mechanical Ventilator 40 08/14/18 10:00 78 22 149/85 (106) 100 08/14/18 09:17 100 08/14/18 09:17 71 14 40 08/14/18 09:16 71 30 40 08/14/18 09:07 70 20 40 08/14/18 09:00 74 18 149/85 (106) 100 08/14/18 08:41 140/69 08/14/18 08:00 77 08/14/18 08:00 40 08/14/18 08:00 98.0 70 17 130/82 (98) 100 08/14/18 08:00 Mechanical Ventilator Mechanical Ventilator 08/14/18 07:00 68 14 145/65 (91) 100 08/14/18 06:50 69 14 40 08/14/18 06:00 97.6 68 16 140/66 (90) 100 08/14/18 05:00 68 16 137/65 (89) 100 08/14/18 04:50 69 16 40 08/14/18 04:00 40 08/14/18 04:00 71 08/14/18 04:00 98.0 71 16 130/84 (99) 100 08/14/18 04:00 Mechanical Ventilator Mechanical Ventilator 08/14/18 03:00 69 17 139/58 (85) 100 08/14/18 02:52 69 14 40 08/14/18 02:00 69 14 136/67 (90) 100 08/14/18 01:00 67 14 40 08/14/18 01:00 73 14 140/62 (88) 100 08/14/18 00:00 98.1 78 17 138/76 (96) 99 08/14/18 00:00 68 08/14/18 00:00 Mechanical Ventilator Mechanical Ventilator 08/14/18 00:00 40 08/13/18 23:09 69 15 40 08/13/18 23:00 71 13 139/68 (91) 100 08/13/18 22:00 71 12 152/64 (93) 100 08/13/18 21:38 76 20 100 Mechanical Ventilator 40 08/13/18 21:23 70 15 100 Mechanical Ventilator 40 08/13/18 21:22 70 15 40 08/13/18 21:00 72 19 147/69 (95) 100 08/13/18 20:00 Mechanical Ventilator Mechanical Ventilator 08/13/18 20:00 98.0 70 14 141/80 (100) 100 08/13/18 20:00 71 08/13/18 19:00 70 16 116/82 (93) 100 08/13/18 18:45 70 14 40 08/13/18 18:00 71 17 136/65 (88) 100 Intake and Output 08/13/18 08/14/18 19:00 07:00 Intake Total 420 ml 260 ml Output Total 0 ml 0 ml Balance 420 ml 260 ml Intake Oral 60 ml Free Water 50 ml IV Total 360 ml 60 ml Tube Feeding 150 ml Output Urine Total 0 ml 0 ml # Voids 1 # Bowel Movements 4 2 Height (Feet): 5 Height (Inches): 7.00 Weight (Pounds): 224 Objective Intubated, On vent. Blind CV RR Lungs CTA Abd SNT. BS + E No CCE Neuro:Alert, nonfocal. Brenda Fuller MD Aug 14, 2018 17:59
--- NOTE | 2018-08-14 18:05 | NUR ---
NURSE NOTES: Dr Fuller here to see pt. ordered rectal tube for loose BM. Will continue to monitor.
--- NOTE | 2018-08-14 19:10 | NUR ---
RESPIRATORY NOTE: Received pt on AC 14, 500VT, 30%, PEEP +5. Pt intubated w/ ETT 7.0 @ 22cm lipline, secured by anchorfast. Pt is alert/awake, follows commands, no restraints. B/S marta. rhonchi, sxn small amounts of thick/thin, clear/white secretions. Vent plugged into red outlet, ambubag at bedside. Pt denies SOB/chest pain, resting comfortably at this time. Will continue to monitor pt.
--- NOTE | 2018-08-14 19:19 | NUR ---
HAND-OFF: Report given to Justin NATION.
--- NOTE | 2018-08-14 19:30 | NUR ---
NURSE NOTES: Recvd.on a vent.See settings.Lungs few Rh.Diminished BS at Bases.P.Ox-98-100%.Suctioned Thin beige sec.NS Lavage.Awake,Alert,Blind (R) BKA able to follows simple command,(L)AVF pos.thrill and Bruit.S/P HD today.Pos.chg.Made comfortable.
[2018-08-14] MEDS: Sennosides 8.6mg tab ORAL SCH (21:00)
[2018-08-14] MEDS: Epogen (for ESRD on dialysis) SUBQ SCH (21:12)
--- NOTE | 2018-08-14 21:45 | Cardiology Progress Note ---
Assessment/Plan Assessment/Plan still unable to generate tidal volume large enough to be extubated. Subjective Subjective The patient is alert, slightly agitated, intubated, trying to say something Objective Last 24 Hour Vital Signs Date Time Temp Pulse Resp B/P (MAP) Pulse Ox O2 Delivery O2 Flow Rate FiO2 08/14/18 21:16 76 21 30 08/14/18 19:08 80 18 30 08/14/18 19:00 80 15 128/75 (92) 100 08/14/18 18:00 77 20 136/68 (90) 100 08/14/18 17:00 73 15 137/111 (120) 100 08/14/18 17:00 82 21 30 08/14/18 16:00 98.3 74 18 135/77 (96) 100 08/14/18 16:00 40 08/14/18 16:00 Mechanical Ventilator Mechanical Ventilator Mechanical Ventilator 08/14/18 16:00 74 08/14/18 15:05 79 15 40 08/14/18 15:00 73 15 150/76 (100) 100 08/14/18 14:00 73 17 126/62 (83) 100 08/14/18 13:20 70 16 40 08/14/18 13:00 98.0 73 15 151/70 (97) 100 08/14/18 12:00 Mechanical Ventilator Mechanical Ventilator Mechanical Ventilator 08/14/18 12:00 40 08/14/18 12:00 71 18 151/70 (97) 100 08/14/18 12:00 71 08/14/18 11:00 70 18 153/83 (106) 100 08/14/18 10:37 71 17 Mechanical Ventilator 40 08/14/18 10:35 77 16 40 08/14/18 10:34 70 16 100 Mechanical Ventilator 40 08/14/18 10:23 71 17 100 Mechanical Ventilator 40 08/14/18 10:00 78 22 149/85 (106) 100 08/14/18 09:17 100 08/14/18 09:17 71 14 40 08/14/18 09:16 71 30 40 08/14/18 09:07 70 20 40 08/14/18 09:00 74 18 149/85 (106) 100 08/14/18 08:41 140/69 08/14/18 08:00 77 08/14/18 08:00 40 08/14/18 08:00 98.0 70 17 130/82 (98) 100 08/14/18 08:00 Mechanical Ventilator Mechanical Ventilator 08/14/18 07:00 68 14 145/65 (91) 100 08/14/18 06:50 69 14 40 08/14/18 06:00 97.6 68 16 140/66 (90) 100 08/14/18 05:00 68 16 137/65 (89) 100 08/14/18 04:50 69 16 40 08/14/18 04:00 40 08/14/18 04:00 71 08/14/18 04:00 98.0 71 16 130/84 (99) 100 08/14/18 04:00 Mechanical Ventilator Mechanical Ventilator 08/14/18 03:00 69 17 139/58 (85) 100 08/14/18 02:52 69 14 40 08/14/18 02:00 69 14 136/67 (90) 100 08/14/18 01:00 67 14 40 08/14/18 01:00 73 14 140/62 (88) 100 08/14/18 00:00 98.1 78 17 138/76 (96) 99 08/14/18 00:00 68 08/14/18 00:00 Mechanical Ventilator Mechanical Ventilator 08/14/18 00:00 40 08/13/18 23:09 69 15 40 08/13/18 23:00 71 13 139/68 (91) 100 08/13/18 22:00 71 12 152/64 (93) 100 General Appearance: on vent EENT: other Neck: JVD Rhythm: NSR Cardiovascular: systolic murmur Respiratory/Chest: crackles/rales Abdomen: soft Extremities: other Intake and Output 08/13/18 08/14/18 18:59 06:59 Intake Total 420 ml 290 ml Output Total 0 ml 0 ml Balance 420 ml 290 ml Intake Oral 60 ml Free Water 50 ml IV Total 360 ml 90 ml Tube Feeding 150 ml Output Urine Total 0 ml 0 ml # Voids 1 # Bowel Movements 4 2 Clarisse Daley MD Aug 14, 2018 21:45
--- NOTE | 2018-08-14 22:00 | NUR ---
NURSE NOTES: HS Care rendered.Pos.chg.Backrub with Lotion.Suctioned.Due Meds Admin.Cont on OGT Feeding.See I/O.See Latest FSBS.
[2018-08-15] VITALS (25 sets, daily range): BP systolic 112–154; BP diastolic 34–113
--- NOTE | 2018-08-15 00:10 | NUR ---
NURSE NOTES: Pos.chg.inct.of large loose greenish brown stool.Rectal tube inserted.Kept clean and dry.See V/S.Scope SR.Suctioned.
--- NOTE | 2018-08-15 02:00 | NUR ---
NURSE NOTES: Repositioned,suctioned.Status same.Cont.Ca.monitoring.No Distress.
--- NOTE | 2018-08-15 04:00 | NUR ---
NURSE NOTES: jahaira Sanabria.Suctioned.Rodolfo.Vent.settings.For poss.weaning this am.VSS.Scope rhythm same.No CP.
--- NOTE | 2018-08-15 07:20 | NUR ---
HAND-OFF: Report given to CHAPIS ALVARES.
--- NOTE | 2018-08-15 07:25 | NUR ---
NURSE NOTES: Report received from Justin NATION. Pt awake, alert, able to make needs known. Pt connected to [employer], SR. Pt orally intubated ETT 7.0, 22 cm lip line, AC 14, TV 500, 30% fiO2, PEEP 5. OGT with nepro running at 30 cc/hr. Rectal tube in place draining greenish brown liquid stool. Left heel woundvac intact with no drainage. Left thumb heplock intact. R arm AV shunt with positive bruit and thrill. Safety measures in place with bed locked in lowest position, side rails x3 up and bed alarm activated. Will continue to monitor and continue plan of care.
--- NOTE | 2018-08-15 07:32 | NUR ---
RESPIRATORY NOTE: received pt on ventilator with current settings. pt is intubated with ETT 7.0 placed 22cm at the lip. no redness or skin breakdown visible around facial area. no resp distress noted at this time. alarms are on and audible, vent is plugged into red outlet and ambu bag is at bedside. will cont to monitor.
--- NOTE | 2018-08-15 08:01 | Critical Care Progress Note ---
Assessment/Plan Assessment/Plan IMPRESSION: 1. Acute on chronic respiratory failure. 2. Acute hypercapnia, resolved with positive pressure ventilation 3. Hypoxemia. 4. Bilateral pleural effusions. and pulmonary edema 5. Fluid overload. 6. End-stage renal disease. 7. Severe protein-calorie malnutrition. 8. Anemia. 9. Thrombocytopenia. 10. Mild coagulopathy. 11. acute on chronic encephalopathy PLAN likely needs trach with poor baseline likely has obesity hypoventilation needs [facility] care will try to wean again -today monitor acid base for change sedation off- and provide if needed only will follow up for change and monitor clinically nutrition as able and aspiration precautions keep negative as per renal and cards monitor imaging for change nutrition medications/laboratory data/nursing notes/ICU care reviewed in detail note reviewed and edited care discussed with RN and RT ICU time spent 42 minutes Critical Care - Subjective Interval Events: events reviewed still on full support failed weaning multiple times ROS Limited/Unobtainable: Yes Condition: critical EKG Rhythm: Sinus Rhythm Residuals: minimal Tube Feeding Tolerated: yes I&O: Intake and Output 08/14/18 08/15/18 19:00 07:00 Intake Total 380 ml 440 ml Output Total 3500 ml 300 ml Balance -3120 ml 140 ml Free Water 20 ml 80 ml Tube Feeding 360 ml 360 ml Output Urine Total 0 ml 0 ml Stool Total 300 ml Hemodialysis UF 3500 ml # Bowel Movements 1 Critical Care - Objective ET-Tube: 7.0 ET Position: 22 Last 24 Hour Vital Signs Date Time Temp Pulse Resp B/P (MAP) Pulse Ox O2 Delivery O2 Flow Rate FiO2 08/15/18 07:21 73 14 30 08/15/18 07:00 76 19 139/68 (91) 100 08/15/18 06:00 82 19 142/72 (95) 100 08/15/18 05:04 79 20 30 08/15/18 05:00 73 16 139/69 (92) 100 08/15/18 04:00 30 08/15/18 04:00 71 08/15/18 04:00 71 18 129/59 (82) 100 08/15/18 04:00 Mechanical Ventilator Mechanical Ventilator Mechanical Ventilator 08/15/18 03:00 71 16 133/53 (79) 100 08/15/18 02:54 73 14 30 08/15/18 02:00 97.2 71 14 133/61 (85) 100 08/15/18 01:19 70 16 30 08/15/18 01:00 71 20 136/59 (84) 100 08/15/18 00:00 70 16 135/59 (84) 100 08/15/18 00:00 71 08/15/18 00:00 Mechanical Ventilator Mechanical Ventilator Mechanical Ventilator 08/15/18 00:00 30 08/14/18 23:16 71 15 30 08/14/18 23:00 70 16 135/59 (84) 100 08/14/18 22:00 73 14 126/59 (81) 100 08/14/18 21:16 76 21 30 08/14/18 21:00 75 16 128/66 (86) 100 08/14/18 20:00 30 08/14/18 20:00 97.5 75 15 131/68 (89) 99 08/14/18 20:00 75 08/14/18 20:00 Mechanical Ventilator Mechanical Ventilator Mechanical Ventilator 08/14/18 19:08 80 18 30 08/14/18 19:00 80 15 128/75 (92) 100 08/14/18 18:00 77 20 136/68 (90) 100 08/14/18 17:00 73 15 137/111 (120) 100 08/14/18 17:00 82 21 30 08/14/18 16:00 98.3 74 18 135/77 (96) 100 08/14/18 16:00 40 08/14/18 16:00 Mechanical Ventilator Mechanical Ventilator Mechanical Ventilator 08/14/18 16:00 74 08/14/18 15:05 79 15 40 08/14/18 15:00 73 15 150/76 (100) 100 08/14/18 14:00 73 17 126/62 (83) 100 08/14/18 13:20 70 16 40 08/14/18 13:00 98.0 73 15 151/70 (97) 100 08/14/18 12:00 Mechanical Ventilator Mechanical Ventilator Mechanical Ventilator 08/14/18 12:00 40 08/14/18 12:00 71 18 151/70 (97) 100 08/14/18 12:00 71 08/14/18 11:00 70 18 153/83 (106) 100 08/14/18 10:37 71 17 Mechanical Ventilator 40 08/14/18 10:35 77 16 40 08/14/18 10:34 70 16 100 Mechanical Ventilator 40 08/14/18 10:23 71 17 100 Mechanical Ventilator 40 08/14/18 10:00 78 22 149/85 (106) 100 08/14/18 09:17 100 08/14/18 09:17 71 14 40 08/14/18 09:16 71 30 40 08/14/18 09:07 70 20 40 08/14/18 09:00 74 18 149/85 (106) 100 08/14/18 08:41 140/69 Labs: Labs Test 08/13/18 10:26 08/13/18 15:40 White Blood Count 4.0 K/UL (4.8-10.8) Red Blood Count 3.46 M/UL (4.20-5.40) Hemoglobin 9.4 G/DL (12.0-16.0) Hematocrit 31.7 % (37.0-47.0) Mean Corpuscular Volume 92 FL (80-99) Mean Corpuscular Hemoglobin 27.1 PG (27.0-31.0) Mean Corpuscular Hemoglobin Concent 29.6 G/DL (32.0-36.0) Red Cell Distribution Width 17.1 % (11.6-14.8) Platelet Count 137 K/UL (150-450) Mean Platelet Volume 10.4 FL (6.5-10.1) Neutrophils (%) (Auto) 44.4 % (45.0-75.0) Lymphocytes (%) (Auto) 32.7 % (20.0-45.0) Monocytes (%) (Auto) 14.7 % (1.0-10.0) Eosinophils (%) (Auto) 7.1 % (0.0-3.0) Basophils (%) (Auto) 1.1 % (0.0-2.0) Sodium Level 137 MMOL/L (136-145) Potassium Level 3.7 MMOL/L (3.5-5.1) Chloride Level 102 MMOL/L (98-107) Carbon Dioxide Level 29 MMOL/L (21-32) Anion Gap 7 mmol/L (5-15) Blood Urea Nitrogen 12 mg/dL (7-18) Creatinine 4.3 MG/DL (0.55-1.30) Estimat Glomerular Filtration Rate 12.4 mL/min (>60) Glucose Level 61 MG/DL (74-106) Calcium Level 8.6 MG/DL (8.5-10.1) Arterial Blood pH 7.419 (7.350-7.450) Arterial Blood Partial Pressure CO2 44.9 mmHg (35.0-45.0) Arterial Blood Partial Pressure O2 73.9 mmHg (75.0-100.0) Arterial Blood HCO3 28.4 mmol/L (22.0-26.0) Arterial Blood Oxygen Saturation 94.1 % (95-100) Arterial Blood Base Excess 3.5 (-2-2) Nicola Test Positive Objective: WDWN NAD orally intubated reduced breath sounds bilaterally without rhonchi or wheeze [id number] without MRG NABS nontender no HSM; feeding tube no CC edema nonfocal and altered without change, reduced LOC skin exam reviewed and examined Accucheck: 69 Gustavo Rolon MD Aug 15, 2018 08:01
--- NOTE | 2018-08-15 08:33 | NUR ---
NURSE NOTES: Dr Rolon here to see pt. Discussed pt failed wean attempts. wants to keep trying to wean pt off vent. Discussed with RT. Will continue to monitor.
[2018-08-15] MEDS: Miconazole 2% Cr 15gm TOPIC SCH ×2 (08:59→16:58)
[2018-08-15] MEDS: Aspirin Baby 81mg ORAL SCH (09:00)
[2018-08-15] MEDS: Docusate 100mg cap ORAL SCH ×3 (09:00→16:58)
[2018-08-15] MEDS: Pantoprazole Inj IVP SCH (09:00)
[2018-08-15] MEDS: Spironolactone 25mg tab ORAL SCH (09:00)
[2018-08-15] MEDS: Nephrovite tab (Rena-Vite) ORAL SCH (09:00)
[2018-08-15] MEDS: Losartan 25mg tab ORAL SCH (09:01)
[2018-08-15] MEDS: Heparin 5000 units/ml inj SUBQ SCH ×2 (09:04→20:59)
--- NOTE | 2018-08-15 10:28 | Infectious Diseases Prog Note ---
"Assessment/Plan Assessment/Plan antibiotics ; inhaled colistin none A 1. enterococcus | streptococcus UTI s/p rx 2. acenitobacter pneumonia s/p rx 3. diabetes mellitus 4. hypertension 5. renal failure on hemodialysis 6. history of left foot osteomyelitis 7. respiratory failure P 1. continue off antibiotics Subjective ROS Limited/Unobtainable: Yes Allergies: Coded Allergies: BENAZEPRIL (Verified Allergy, Unknown, 06/12/18) CODEINE (Verified Allergy, Unknown, 06/12/18) INSULIN ASPART (Verified Allergy, Unknown, 06/12/18) INSULIN DETEMIR (Verified Allergy, Unknown, 06/12/18) OPIOIDS - MORPHINE ANALOGUES (Verified Allergy, Unknown, 06/12/18) Objective Vital Signs Last 24 Hour Vital Signs Date Time Temp Pulse Resp B/P (MAP) Pulse Ox O2 Delivery O2 Flow Rate FiO2 08/15/18 10:13 100 08/15/18 10:00 74 15 144/74 (97) 100 08/15/18 09:01 149/76 08/15/18 09:00 73 10 140/76 (97) 100 08/15/18 08:00 Mechanical Ventilator Mechanical Ventilator Mechanical Ventilator 08/15/18 08:00 97.6 76 12 149/76 (100) 100 08/15/18 08:00 30 08/15/18 07:21 73 14 30 08/15/18 07:00 76 19 139/68 (91) 100 08/15/18 06:00 82 19 142/72 (95) 100 08/15/18 05:04 79 20 30 08/15/18 05:00 73 16 139/69 (92) 100 08/15/18 04:00 30 08/15/18 04:00 71 08/15/18 04:00 71 18 129/59 (82) 100 08/15/18 04:00 Mechanical Ventilator Mechanical Ventilator Mechanical Ventilator 08/15/18 03:00 71 16 133/53 (79) 100 08/15/18 02:54 73 14 30 08/15/18 02:00 97.2 71 14 133/61 (85) 100 08/15/18 01:19 70 16 30 08/15/18 01:00 71 20 136/59 (84) 100 08/15/18 00:00 70 16 135/59 (84) 100 1/22/19 00:00 71 08/15/18 00:00 Mechanical Ventilator Mechanical Ventilator Mechanical Ventilator 08/15/18 00:00 30 08/14/18 23:16 71 15 30 08/14/18 23:00 70 16 135/59 (84) 100 08/14/18 22:00 73 14 126/59 (81) 100 08/14/18 21:16 76 21 30 08/14/18 21:00 75 16 128/66 (86) 100 08/14/18 20:00 30 08/14/18 20:00 97.5 75 15 131/68 (89) 99 08/14/18 20:00 75 08/14/18 20:00 Mechanical Ventilator Mechanical Ventilator Mechanical Ventilator 08/14/18 19:08 80 18 30 08/14/18 19:00 80 15 128/75 (92) 100 08/14/18 18:00 77 20 136/68 (90) 100 08/14/18 17:00 73 15 137/111 (120) 100 08/14/18 17:00 82 21 30 08/14/18 16:00 98.3 74 18 135/77 (96) 100 08/14/18 16:00 40 08/14/18 16:00 Mechanical Ventilator Mechanical Ventilator Mechanical Ventilator 08/14/18 16:00 74 08/14/18 15:05 79 15 40 08/14/18 15:00 73 15 150/76 (100) 100 08/14/18 14:00 73 17 126/62 (83) 100 08/14/18 13:20 70 16 40 08/14/18 13:00 98.0 73 15 151/70 (97) 100 08/14/18 12:00 Mechanical Ventilator Mechanical Ventilator Mechanical Ventilator 08/14/18 12:00 40 08/14/18 12:00 71 18 151/70 (97) 100 08/14/18 12:00 71 08/14/18 11:00 70 18 153/83 (106) 100 08/14/18 10:37 71 17 Mechanical Ventilator 40 08/14/18 10:35 77 16 40 08/14/18 10:34 70 16 100 Mechanical Ventilator 40 Height (Feet): 5 Height (Inches): 7.00 Weight (Pounds): 223 HEENT: other - intubated Respiratory/Chest: lungs clear Cardiovascular: normal rate, regular rhythm, no gallop/murmur Abdomen: soft, non tender Extremities: no edema, other - right stump clean, left foot VAC Current Medications Medications (Trade) Dose Ordered Sig/Andre Route PRN Reason Start Time Stop Time Status Last Admin Dose Admin Acetaminophen (Tylenol) 650 mg Q6H PRN ORAL Mild Pain/Temp > 100.5 08/02/18 11:45 08/16/18 23:44 Aspirin (ASA) 81 mg DAILY ORAL 08/02/18 12:30 09/01/18 12:29 08/15/18 09:00 Dextrose (Dextrose 50%) 25 ml Q30M PRN IV Hypoglycemia 08/02/18 12:00 08/17/18 11:59 08/13/18 20:34 Dextrose (Dextrose 50%) 50 ml Q30M PRN IV Hypoglycemia 08/02/18 12:00 08/17/18 11:59 08/14/18 11:48 Diphenoxylate HCl/ Atropine (Lomotil) 2.5 mg Q4H PRN ORAL Diarrhea 08/02/18 12:30 08/29/18 12:29 Docusate Sodium (Colace) 100 mg THREE TIMES A DAY ORAL 08/02/18 13:00 08/17/18 08:59 08/14/18 11:25 Epoetin Marcus (Procrit (for ESRD on dialysis)) 10,000 units TUE-TUE-TUE SUBQ 08/04/18 21:00 08/18/18 20:59 08/14/18 21:12 Heparin Sodium (Porcine) (Heparin 5000 units/ml) 5,000 units EVERY 12 HOURS SUBQ 08/02/18 21:00 08/17/18 08:59 08/15/18 09:04 Losartan Potassium (Cozaar) 25 mg DAILY ORAL 08/10/18 09:00 09/09/18 08:59 08/15/18 09:01 Miconazole Nitrate (Monistat-Derm) 1 applic TWICE A DAY TOPIC 08/09/18 21:30 09/08/18 21:29 08/15/18 08:59 Pantoprazole (Protonix) 40 mg DAILY IVP 08/03/18 09:00 09/02/18 08:59 08/15/18 09:00 Polyethylene Glycol (Miralax) 17 gm DAILYPRN PRN ORAL Constipation 08/02/18 13:00 08/26/18 12:59 Sennosides (Senokot) 17.2 mg QHS ORAL 08/02/18 21:00 08/17/18 20:59 08/04/18 20:34 Spironolactone (Aldactone) 25 mg DAILY ORAL 08/14/18 09:00 09/13/18 08:59 08/15/18 09:00 Vitamin B Complex/ Vit C/Folic Acid (Nephrovite) 1 tab DAILY ORAL 08/02/18 13:00 09/01/18 12:59 08/15/18 09:00 Naya Cain MD Aug 15, 2018 10:28"
--- NOTE | 2018-08-15 11:02 | NUR ---
RESPIRATORY NOTE: second attempt of weaning, pt's Vt reaching less than 100mL. vent settings SIMV 10 500 30% +5, PS 8. RN, notified
--- NOTE | 2018-08-15 13:00 | NUR ---
NURSE NOTES: Pt restless because she wanted to call family members. Attempted to call several ppl with no answer. No acute distress otherwise. Will continue to monitor.
--- NOTE | 2018-08-15 15:11 | NUR ---
NURSE NOTES: ET nurse here to change woundvac dressing on left foot. No acute distress. Will continue to monitor.
--- NOTE | 2018-08-15 15:23 | NUR ---
NURSE NOTES:WOUND CARE NOTES:NPWT changed today.L heel wound resolving(L)2.6cm x (W)2.5cm. Wound bed moist -viable with epithelial borders.Periwound dry and intact without erythema or fluctuance. Wound cleansed with Saline.Cavilon applied along borders and periwound.Transparent drsg draped along borders and periwound and bridged to sylvester/distal L tibia. Granulofoam packing conformed to shape of wound and bridged over drape to distal /sylvester L tibia and covered. NPWT resumed at continuous suction @125mm/Hg .Abd padding placed under tubing to prevent pressure on skin and wrapped with kerlix. Pt tolerated procedure.
--- NOTE | 2018-08-15 15:37 | NUR ---
SS note This Sw spoke with daughter, Myrtle ([phone]) regarding possible trach/peg placement. Daughter explained she is in agreement for Peg/Trac, according to Doctor recommendations. ICU, Ignacia Dodge RN informed, who will inform the Medical Team.
[2018-08-15] MEDS ORDERED: NS 275ml ONE (15:40)
--- NOTE | 2018-08-15 16:20 | Nephrology Progress Note ---
Assessment/Plan Plan VDRF. B pleural Effusion. Severe CHF. DW Dr. Daley! Try to alleviate. Not too many options HD MWF. Increase UF on HD. All weaning trials failed. Keep on trying, but may need trach. Subjective Subjective Intubated, On vent. In ICU. Objective Objective Last 24 Hour Vital Signs Date Time Temp Pulse Resp B/P (MAP) Pulse Ox O2 Delivery O2 Flow Rate FiO2 08/15/18 15:34 74 14 30 08/15/18 15:00 82 17 148/74 (98) 99 08/15/18 14:04 79 20 30 08/15/18 14:00 81 17 145/89 (107) 100 08/15/18 13:00 74 16 146/71 (96) 100 08/15/18 12:00 30 08/15/18 12:00 98.0 74 19 154/71 (98) 100 08/15/18 12:00 Mechanical Ventilator Mechanical Ventilator Mechanical Ventilator 08/15/18 12:00 74 08/15/18 11:03 71 18 30 08/15/18 11:00 75 14 119/66 (83) 100 08/15/18 10:13 100 08/15/18 10:00 74 15 144/74 (97) 100 08/15/18 09:21 81 20 30 08/15/18 09:01 149/76 08/15/18 09:00 73 10 140/76 (97) 100 08/15/18 08:00 75 08/15/18 08:00 Mechanical Ventilator Mechanical Ventilator Mechanical Ventilator 08/15/18 08:00 97.6 76 12 149/76 (100) 100 08/15/18 08:00 30 08/15/18 07:21 73 14 30 08/15/18 07:00 76 19 139/68 (91) 100 08/15/18 06:00 82 19 142/72 (95) 100 08/15/18 05:04 79 20 30 08/15/18 05:00 73 16 139/69 (92) 100 08/15/18 04:00 30 08/15/18 04:00 71 08/15/18 04:00 71 18 129/59 (82) 100 08/15/18 04:00 Mechanical Ventilator Mechanical Ventilator Mechanical Ventilator 08/15/18 03:00 71 16 133/53 (79) 100 08/15/18 02:54 73 14 30 08/15/18 02:00 97.2 71 14 133/61 (85) 100 08/15/18 01:19 70 16 30 08/15/18 01:00 71 20 136/59 (84) 100 08/15/18 00:00 70 16 135/59 (84) 100 08/15/18 00:00 71 08/15/18 00:00 Mechanical Ventilator Mechanical Ventilator Mechanical Ventilator 08/15/18 00:00 30 08/14/18 23:16 71 15 30 08/14/18 23:00 70 16 135/59 (84) 100 08/14/18 22:00 73 14 126/59 (81) 100 08/14/18 21:16 76 21 30 08/14/18 21:00 75 16 128/66 (86) 100 08/14/18 20:00 30 08/14/18 20:00 97.5 75 15 131/68 (89) 99 08/14/18 20:00 75 08/14/18 20:00 Mechanical Ventilator Mechanical Ventilator Mechanical Ventilator 08/14/18 19:08 80 18 30 08/14/18 19:00 80 15 128/75 (92) 100 08/14/18 18:00 77 20 136/68 (90) 100 08/14/18 17:00 73 15 137/111 (120) 100 08/14/18 17:00 82 21 30 Intake and Output 08/14/18 08/15/18 19:00 07:00 Intake Total 380 ml 440 ml Output Total 3500 ml 300 ml Balance -3120 ml 140 ml Free Water 20 ml 80 ml Tube Feeding 360 ml 360 ml Output Urine Total 0 ml 0 ml Stool Total 300 ml Hemodialysis UF 3500 ml # Bowel Movements 1 Height (Feet): 5 Height (Inches): 7.00 Weight (Pounds): 223 Objective Intubated, On vent. Blind CV RR Lungs CTA Abd SNT. BS + E No CCE Neuro:Alert, nonfocal. Brenda Fuller MD Aug 15, 2018 16:20
[2018-08-15] MEDS ORDERED: Heparin Sod 1000 units/ml 10ml IV PRN (16:32)
--- NOTE | 2018-08-15 17:02 | NUR ---
NURSE NOTES: Spoke to Mary Alice at [facility] to schedule pt for HD tomorrow. No acute distress. Will continue to monitor.
--- NOTE | 2018-08-15 18:59 | NUR ---
RESPIRATORY NOTE: received pt on current settings of AC 14, Vt 500, FiO2 30%, PEEP +5.pt is awake and alert and tolerating vent settings. no s/s of respiratory distress noted. vent is plugged into red outlet, ETT is secure and patent 7.0/ 22 at the lip. pt want the ETT on the left side on for comfort. will continue to monitor.
--- NOTE | 2018-08-15 19:29 | NUR ---
HAND-OFF: Report given to Hermann NATION.
--- NOTE | 2018-08-15 20:00 | NUR ---
NURSE NOTES: pt orally intubated awake and alert moviing all extrmeties no c/o of pain
[2018-08-15] MEDS: Sennosides 8.6mg tab ORAL SCH (20:51)
--- NOTE | 2018-08-15 22:00 | NUR ---
NURSE NOTES: reposition and suction tolerating tube feeding [id number] c/o off foot pain
[2018-08-16] VITALS (25 sets, daily range): BP systolic 78–152; BP diastolic 42–73
--- NOTE | 2018-08-16 | NUR ---
NURSE NOTES: asleep no acute distress noted
--- NOTE | 2018-08-16 02:00 | NUR ---
NURSE NOTES: compllete bed bath oral care princess-care done reposition and suction done
--- NOTE | 2018-08-16 02:46 | NUR ---
NURSE NOTES: Addendum: 08/16/18 at 0323 by JANELLE PARRISH RN Amended: Links added.
--- NOTE | 2018-08-16 03:00 | NUR ---
NURSE NOTES: Recvd.report from DENILSON,RN,Pt.on a vent.AAO,Legally Blind orally intubated able to suction self fr.mouth sec.Failed weaning multiple times,to be seen by Dr.Benyamini Navarrete Poss.TRACHE.OGT Feeding in progress.Anuric ESRD/AVF (R) upperarm Pos.thrill and Bruit jose.for Poss. HD in am.jahaira Sanabria.
--- NOTE | 2018-08-16 04:30 | NUR ---
NURSE NOTES: Repositioned,Suctioned.Rodolfo.vent.settings.Status same.Cont.Cardiac monitoring.
--- NOTE | 2018-08-16 07:25 | NUR ---
HAND-OFF: Report given to CHAPIS CARVALHO..
[2018-08-16 07:55] LABS: BASOPHILS % (AUTO) 0.9 % (0.0-2.0); EOSINOPHILS % (AUTO) 4.1 % (0.0-3.0); HEMATOCRIT 30.6 % (37.0-47.0); HEMOGLOBIN 9.2 G/DL (12.0-16.0); LYMPHOCYTES % (AUTO) 19.1 % (20.0-45.0); MEAN CORPUSCULAR VOLUME 91 FL (80-99); MONOCYTES % (AUTO) 9.9 % (1.0-10.0); PLATELET COUNT 119 K/UL (150-450); RED BLOOD COUNT 3.36 M/UL (4.20-5.40); RED CELL DISTRIBUTION WIDTH 17.1 % (11.6-14.8); WHITE BLOOD COUNT 5.6 K/UL (4.8-10.8)
--- NOTE | 2018-08-16 08:00 | NUR ---
NURSE NOTES: Recieved report from CHAPIS Anderson. Pt.on a vent. AAO,Legally Blind orally intubated able to suction self. Vent settings: AC14 TV500 30% and peep 5. Failed weaning multiple times, to be seen by for trach consult. OGT Feeding in progress running nepro at 20. Anuric ESRD/AVF (R) upperarm shunt. Left thumb IV saline locked. HD happening at the moment. Safety measures in place. Bed in low, locked position. Will continue to monitor.
[2018-08-16 08:30] LABS: ANION GAP 7 mmol/L (5-15); BLOOD UREA NITROGEN 14 mg/dL (7-18); CALCIUM 8.6 MG/DL (8.5-10.1); CARBON DIOXIDE 28 MMOL/L (21-32); CHLORIDE 103 MMOL/L (98-107); CREATININE 4.6 MG/DL (0.55-1.30); POTASSIUM 3.4 MMOL/L (3.5-5.1); SODIUM 138 MMOL/L (136-145)
[2018-08-16] MEDS: Nephrovite tab (Rena-Vite) ORAL SCH (09:00)
[2018-08-16] MEDS: Aspirin Baby 81mg ORAL SCH (09:00)
[2018-08-16] MEDS: Heparin 5000 units/ml inj SUBQ SCH ×2 (09:00→21:48)
[2018-08-16] MEDS: Losartan 25mg tab ORAL SCH (09:00)
[2018-08-16] MEDS: Miconazole 2% Cr 15gm TOPIC SCH ×2 (09:00→18:28)
[2018-08-16] MEDS: Docusate 100mg cap ORAL SCH ×3 (09:00→18:28)
[2018-08-16] MEDS: Pantoprazole Inj IVP SCH (09:00)
[2018-08-16] MEDS: Spironolactone 25mg tab ORAL SCH (09:00)
--- NOTE | 2018-08-16 10:00 | NUR ---
NURSE NOTES: Pt is weaning on CPAP at the moment. 02 100%. ABG in 30 min.
--- NOTE | 2018-08-16 10:29 | Nephrology Progress Note ---
Assessment/Plan Plan VDRF. B pleural Effusion. Severe CHF. DW Dr. Daley! Try to alleviate. Not too many options HD MWF. Increase UF on HD. trying more aggressive UF. All weaning trials failed. Keep on trying, but may need trach. Subjective Subjective Intubated, On vent. In ICU. Had HD with aggressive 4 L removed! Objective Objective Last 24 Hour Vital Signs Date Time Temp Pulse Resp B/P (MAP) Pulse Ox O2 Delivery O2 Flow Rate FiO2 08/16/18 09:25 77 16 30 08/16/18 07:25 73 15 30 08/16/18 07:00 73 19 137/63 (87) 100 08/16/18 06:00 75 17 140/68 (92) 100 08/16/18 05:17 75 16 30 08/16/18 05:00 74 18 152/73 (99) 100 08/16/18 04:00 98.6 72 16 147/68 (94) 100 08/16/18 04:00 Mechanical Ventilator Mechanical Ventilator Mechanical Ventilator 08/16/18 04:00 72 08/16/18 04:00 30 08/16/18 03:00 80 17 131/60 (83) 99 08/16/18 02:51 73 15 30 08/16/18 02:00 80 17 146/59 (88) 99 08/16/18 01:06 72 14 30 08/16/18 01:00 80 17 148/50 (82) 99 08/16/18 00:00 98.4 80 17 140/59 (86) 99 08/16/18 00:00 30 08/16/18 00:00 75 08/16/18 00:00 Mechanical Ventilator Mechanical Ventilator Mechanical Ventilator 08/15/18 23:00 80 17 131/59 (83) 99 08/15/18 22:35 73 16 30 08/15/18 22:00 80 17 132/34 (66) 99 08/15/18 21:03 74 17 30 08/15/18 21:00 80 17 139/87 (104) 99 08/15/18 20:00 80 17 138/73 (94) 99 08/15/18 20:00 30 08/15/18 20:00 Mechanical Ventilator Mechanical Ventilator Mechanical Ventilator 08/15/18 20:00 77 08/15/18 19:00 80 17 139/87 (104) 99 08/15/18 18:56 76 15 30 08/15/18 18:00 78 17 135/70 (91) 100 08/15/18 17:42 79 21 30 08/15/18 17:00 75 16 112/98 (103) 100 08/15/18 16:00 78 08/15/18 16:00 30 08/15/18 16:00 98.2 82 18 144/73 (96) 100 08/15/18 16:00 Mechanical Ventilator Mechanical Ventilator Mechanical Ventilator 08/15/18 15:34 74 14 30 08/15/18 15:00 82 17 148/74 (98) 99 08/15/18 14:04 79 20 30 08/15/18 14:00 81 17 145/89 (107) 100 08/15/18 13:00 74 16 146/71 (96) 100 08/15/18 13:00 74 16 146/71 (96) 100 08/15/18 12:00 30 08/15/18 12:00 98.0 74 19 154/71 (98) 100 08/15/18 12:00 Mechanical Ventilator Mechanical Ventilator Mechanical Ventilator 08/15/18 12:00 74 08/15/18 11:03 71 18 30 08/15/18 11:00 75 14 119/66 (83) 100 08/15/18 11:00 75 14 119/66 (83) 100 Intake and Output 08/15/18 08/16/18 19:00 07:00 Intake Total 360 ml 510 ml Output Total 250 ml 360 ml Balance 110 ml 150 ml Free Water 150 ml Tube Feeding 360 ml 360 ml Stool Total 250 ml 360 ml Laboratory Tests 08/16/18 07:30: White Blood Count 5.6, Red Blood Count 3.36L, Hemoglobin 9.2L, Hematocrit 30.6L , Mean Corpuscular Volume 91, Mean Corpuscular Hemoglobin 27.4, Mean Corpuscular Hemoglobin Concent 30.0L, Red Cell Distribution Width 17.1H, Platelet Count 119L, Mean Platelet Volume 8.4, Neutrophils (%) (Auto) 66.0, Lymphocytes (%) (Auto) 19.1L, Monocytes (%) (Auto) 9.9, Eosinophils (%) (Auto) 4.1H, Basophils (%) (Auto) 0.9, Sodium Level 138, Potassium Level 3.4L, Chloride Level 103, Carbon Dioxide Level 28, Anion Gap 7, Blood Urea Nitrogen 14 , Creatinine 4.6H, Estimat Glomerular Filtration Rate 11.4, Glucose Level 102, Calcium Level 8.6 Height (Feet): 5 Height (Inches): 7.00 Weight (Pounds): 224 Objective Intubated, On vent. Blind CV RR Lungs CTA Abd SNT. BS + E No CCE Neuro:Alert, nonfocal. Brenda Fuller MD Aug 16, 2018 10:29
--- NOTE | 2018-08-16 10:54 | Infectious Diseases Prog Note ---
"Assessment/Plan Assessment/Plan antibiotics ; inhaled colistin none A 1. enterococcus | streptococcus UTI s/p rx 2. acenitobacter pneumonia s/p rx 3. diabetes mellitus 4. hypertension 5. renal failure on hemodialysis 6. history of left foot osteomyelitis 7. respiratory failure P 1. continue off antibiotics Subjective ROS Limited/Unobtainable: Yes Allergies: Coded Allergies: BENAZEPRIL (Verified Allergy, Unknown, 06/12/18) CODEINE (Verified Allergy, Unknown, 06/12/18) INSULIN ASPART (Verified Allergy, Unknown, 06/12/18) INSULIN DETEMIR (Verified Allergy, Unknown, 06/12/18) OPIOIDS - MORPHINE ANALOGUES (Verified Allergy, Unknown, 06/12/18) Objective Vital Signs Last 24 Hour Vital Signs Date Time Temp Pulse Resp B/P (MAP) Pulse Ox O2 Delivery O2 Flow Rate FiO2 08/16/18 09:25 77 16 30 08/16/18 07:25 73 15 30 08/16/18 07:00 73 19 137/63 (87) 100 08/16/18 06:00 75 17 140/68 (92) 100 08/16/18 05:17 75 16 30 08/16/18 05:00 74 18 152/73 (99) 100 08/16/18 04:00 98.6 72 16 147/68 (94) 100 08/16/18 04:00 Mechanical Ventilator Mechanical Ventilator Mechanical Ventilator 08/16/18 04:00 72 08/16/18 04:00 30 08/16/18 03:00 80 17 131/60 (83) 99 08/16/18 02:51 73 15 30 08/16/18 02:00 80 17 146/59 (88) 99 08/16/18 01:06 72 14 30 08/16/18 01:00 80 17 148/50 (82) 99 08/16/18 00:00 98.4 80 17 140/59 (86) 99 08/16/18 00:00 30 08/16/18 00:00 75 08/16/18 00:00 Mechanical Ventilator Mechanical Ventilator Mechanical Ventilator 08/15/18 23:00 80 17 131/59 (83) 99 08/15/18 22:35 73 16 30 08/15/18 22:00 80 17 132/34 (66) 99 08/15/18 21:03 74 17 30 08/15/18 21:00 80 17 139/87 (104) 99 08/15/18 20:00 80 17 138/73 (94) 99 08/15/18 20:00 30 08/15/18 20:00 Mechanical Ventilator Mechanical Ventilator Mechanical Ventilator 08/15/18 20:00 77 08/15/18 19:00 80 17 139/87 (104) 99 08/15/18 18:56 76 15 30 08/15/18 18:00 78 17 135/70 (91) 100 08/15/18 17:42 79 21 30 08/15/18 17:00 75 16 112/98 (103) 100 08/15/18 16:00 78 08/15/18 16:00 30 08/15/18 16:00 98.2 82 18 144/73 (96) 100 08/15/18 16:00 Mechanical Ventilator Mechanical Ventilator Mechanical Ventilator 08/15/18 15:34 74 14 30 08/15/18 15:00 82 17 148/74 (98) 99 08/15/18 14:04 79 20 30 08/15/18 14:00 81 17 145/89 (107) 100 08/15/18 13:00 74 16 146/71 (96) 100 08/15/18 13:00 74 16 146/71 (96) 100 08/15/18 12:00 30 08/15/18 12:00 98.0 74 19 154/71 (98) 100 08/15/18 12:00 Mechanical Ventilator Mechanical Ventilator Mechanical Ventilator 08/15/18 12:00 74 08/15/18 11:03 71 18 30 08/15/18 11:00 75 14 119/66 (83) 100 08/15/18 11:00 75 14 119/66 (83) 100 Height (Feet): 5 Height (Inches): 7.00 Weight (Pounds): 224 HEENT: other - intubated Respiratory/Chest: lungs clear Cardiovascular: normal rate, regular rhythm, no gallop/murmur Abdomen: soft, non tender Extremities: no edema, other - right stump clean, left foot VAC Laboratory Tests Test 08/16/18 07:30 White Blood Count 5.6 K/UL (4.8-10.8) Red Blood Count 3.36 M/UL (4.20-5.40) L Hemoglobin 9.2 G/DL (12.0-16.0) L Hematocrit 30.6 % (37.0-47.0) L Mean Corpuscular Volume 91 FL (80-99) Mean Corpuscular Hemoglobin 27.4 PG (27.0-31.0) Mean Corpuscular Hemoglobin Concent 30.0 G/DL (32.0-36.0) L Red Cell Distribution Width 17.1 % (11.6-14.8) H Platelet Count 119 K/UL (150-450) L Mean Platelet Volume 8.4 FL (6.5-10.1) Neutrophils (%) (Auto) 66.0 % (45.0-75.0) Lymphocytes (%) (Auto) 19.1 % (20.0-45.0) L Monocytes (%) (Auto) 9.9 % (1.0-10.0) Eosinophils (%) (Auto) 4.1 % (0.0-3.0) H Basophils (%) (Auto) 0.9 % (0.0-2.0) Sodium Level 138 MMOL/L (136-145) Potassium Level 3.4 MMOL/L (3.5-5.1) L Chloride Level 103 MMOL/L (98-107) Carbon Dioxide Level 28 MMOL/L (21-32) Anion Gap 7 mmol/L (5-15) Blood Urea Nitrogen 14 mg/dL (7-18) Creatinine 4.6 MG/DL (0.55-1.30) H Estimat Glomerular Filtration Rate 11.4 mL/min (>60) Glucose Level 102 MG/DL (74-106) Calcium Level 8.6 MG/DL (8.5-10.1) Current Medications Medications (Trade) Dose Ordered Sig/Andre Route PRN Reason Start Time Stop Time Status Last Admin Dose Admin Acetaminophen (Tylenol) 650 mg Q6H PRN ORAL Mild Pain/Temp > 100.5 08/02/18 11:45 08/16/18 23:44 08/15/18 20:55 Aspirin (ASA) 81 mg DAILY ORAL 08/02/18 12:30 09/01/18 12:29 08/15/18 09:00 Dextrose (Dextrose 50%) 25 ml Q30M PRN IV Hypoglycemia 08/02/18 12:00 08/17/18 11:59 08/13/18 20:34 Dextrose (Dextrose 50%) 50 ml Q30M PRN IV Hypoglycemia 08/02/18 12:00 08/17/18 11:59 08/14/18 11:48 Diphenoxylate HCl/ Atropine (Lomotil) 2.5 mg Q4H PRN ORAL Diarrhea 08/02/18 12:30 08/29/18 12:29 Docusate Sodium (Colace) 100 mg THREE TIMES A DAY ORAL 08/02/18 13:00 08/17/18 08:59 08/14/18 11:25 Epoetin Marcus (Procrit (for ESRD on dialysis)) 10,000 units TUE-TUE-TUE SUBQ 08/04/18 21:00 08/18/18 20:59 08/14/18 21:12 Heparin Sodium (Porcine) (Heparin 5000 units/ml) 5,000 units EVERY 12 HOURS SUBQ 08/02/18 21:00 08/17/18 08:59 08/15/18 20:59 Heparin Sodium (Porcine) (Heparin Sod 1000 units/ml 10ml) 2,000 unit ONCE PRN IV DIALYSIS 08/15/18 16:32 08/16/18 23:59 Losartan Potassium (Cozaar) 25 mg DAILY ORAL 08/10/18 09:00 09/09/18 08:59 08/15/18 09:01 Miconazole Nitrate (Monistat-Derm) 1 applic TWICE A DAY TOPIC 08/09/18 21:30 09/08/18 21:29 08/15/18 16:58 Pantoprazole (Protonix) 40 mg DAILY IVP 08/03/18 09:00 09/02/18 08:59 08/15/18 09:00 Polyethylene Glycol (Miralax) 17 gm DAILYPRN PRN ORAL Constipation 08/02/18 13:00 08/26/18 12:59 Sennosides (Senokot) 17.2 mg QHS ORAL 08/02/18 21:00 08/17/18 20:59 08/15/18 20:51 Sodium Chloride 1,000 ml @ 500 mls/hr Q2H PRN IVLG sbp<90 during hd 08/15/18 16:32 08/16/18 23:59 Spironolactone (Aldactone) 25 mg DAILY ORAL 08/14/18 09:00 09/13/18 08:59 08/15/18 09:00 Vitamin B Complex/ Vit C/Folic Acid (Nephrovite) 1 tab DAILY ORAL 08/02/18 13:00 09/01/18 12:59 08/15/18 09:00 Naya Cain MD Aug 16, 2018 10:54"
--- NOTE | 2018-08-16 11:30 | NUR ---
NURSE NOTES: ABG results reported to Dr. Cosme and gave okay to extubate. Pt is on nasal cannula 4 L and OGT still in place.
--- NOTE | 2018-08-16 13:40 | Pulmonolgy Critical Care Note ---
Critical Care - Asmt/Plan Assessment/Plan: Pulmonary CCM Progress Note Assessment/Plan IMPRESSION: 1. Acute on chronic respiratory failure. 2. Acute hypercapnia, resolved with positive pressure ventilation 3. Hypoxemia. 4. Bilateral pleural effusions. and pulmonary edema 5. Fluid overload. 6. End-stage renal disease. 7. Severe protein-calorie malnutrition. 8. Anemia. 9. Thrombocytopenia. 10. Mild coagulopathy. 11. acute on chronic encephalopathy PLAN likely needs trach with poor baseline likely has obesity hypoventilation needs half-way care will try to wean again -today monitor acid base for change sedation off- and provide if needed only will follow up for change and monitor clinically nutrition as able and aspiration precautions keep negative as per renal and cards monitor imaging for change nutrition medications/laboratory data/nursing notes/ICU care reviewed in detail note reviewed and edited care discussed with RN and RT ICU time spent 42 minutes Critical Care - Subjective Interval Events: events reviewed still on full support failed weaning multiple times ROS Limited/Unobtainable: Yes Condition: critical EKG Rhythm: Sinus Rhythm Residuals: minimal Tube Feeding Tolerated: yes Critical Care - Objective ET-Tube: 7.0 ET Position: 22 Vital Signs Noted Labs Test 08/13/18 10:26 08/13/18 15:40 White Blood Count 4.0 K/UL (4.8-10.8) Red Blood Count 3.46 M/UL (4.20-5.40) Hemoglobin 9.4 G/DL (12.0-16.0) Hematocrit 31.7 % (37.0-47.0) Mean Corpuscular Volume 92 FL (80-99) Mean Corpuscular Hemoglobin 27.1 PG (27.0-31.0) Mean Corpuscular Hemoglobin Concent 29.6 G/DL (32.0-36.0) Red Cell Distribution Width 17.1 % (11.6-14.8) Platelet Count 137 K/UL (150-450) Mean Platelet Volume 10.4 FL (6.5-10.1) Neutrophils (%) (Auto) 44.4 % (45.0-75.0) Lymphocytes (%) (Auto) 32.7 % (20.0-45.0) Monocytes (%) (Auto) 14.7 % (1.0-10.0) Eosinophils (%) (Auto) 7.1 % (0.0-3.0) Basophils (%) (Auto) 1.1 % (0.0-2.0) Sodium Level 137 MMOL/L (136-145) Potassium Level 3.7 MMOL/L (3.5-5.1) Chloride Level 102 MMOL/L (98-107) Carbon Dioxide Level 29 MMOL/L (21-32) Anion Gap 7 mmol/L (5-15) Blood Urea Nitrogen 12 mg/dL (7-18) Creatinine 4.3 MG/DL (0.55-1.30) Estimat Glomerular Filtration Rate 12.4 mL/min (>60) Glucose Level 61 MG/DL (74-106) Calcium Level 8.6 MG/DL (8.5-10.1) Arterial Blood pH 7.419 (7.350-7.450) Arterial Blood Partial Pressure CO2 44.9 mmHg (35.0-45.0) Arterial Blood Partial Pressure O2 73.9 mmHg (75.0-100.0) Arterial Blood HCO3 28.4 mmol/L (22.0-26.0) Arterial Blood Oxygen Saturation 94.1 % (95-100) Arterial Blood Base Excess 3.5 (-2-2) Nicola Test Positive Objective: WDWN NAD orally intubated reduced breath sounds bilaterally without rhonchi or wheeze [id number] without MRG NABS nontender no HSM; feeding tube no CC edema nonfocal and altered without change, reduced LOC skin exam reviewed and examined Critical Care - Objective Last 24 Hour Vital Signs Date Time Temp Pulse Resp B/P (MAP) Pulse Ox O2 Delivery O2 Flow Rate FiO2 08/16/18 12:00 98.2 75 16 140/62 (88) 100 08/16/18 12:00 Mechanical Ventilator Mechanical Ventilator Mechanical Ventilator 08/16/18 12:00 30 08/16/18 12:00 75 08/16/18 11:03 78 26 30 08/16/18 11:00 76 17 138/68 (91) 100 08/16/18 11:00 30 08/16/18 10:00 74 15 120/62 (81) 100 08/16/18 09:25 77 16 30 08/16/18 09:00 137/63 08/16/18 09:00 74 15 119/58 (78) 100 08/16/18 08:00 73 08/16/18 08:00 30 08/16/18 08:00 Mechanical Ventilator Mechanical Ventilator Mechanical Ventilator 08/16/18 08:00 73 18 119/63 (81) 100 08/16/18 07:25 73 15 30 08/16/18 07:00 73 19 137/63 (87) 100 08/16/18 06:00 75 17 140/68 (92) 100 08/16/18 05:17 75 16 30 08/16/18 05:00 74 18 152/73 (99) 100 08/16/18 04:00 98.6 72 16 147/68 (94) 100 08/16/18 04:00 Mechanical Ventilator Mechanical Ventilator Mechanical Ventilator 08/16/18 04:00 72 08/16/18 04:00 30 08/16/18 03:00 80 17 131/60 (83) 99 08/16/18 02:51 73 15 30 08/16/18 02:00 80 17 146/59 (88) 99 08/16/18 01:06 72 14 30 08/16/18 01:00 80 17 148/50 (82) 99 08/16/18 00:00 98.4 80 17 140/59 (86) 99 08/16/18 00:00 30 08/16/18 00:00 75 08/16/18 00:00 Mechanical Ventilator Mechanical Ventilator Mechanical Ventilator 08/15/18 23:00 80 17 131/59 (83) 99 08/15/18 22:35 73 16 30 08/15/18 22:00 80 17 132/34 (66) 99 08/15/18 21:03 74 17 30 08/15/18 21:00 80 17 139/87 (104) 99 08/15/18 20:00 80 17 138/73 (94) 99 08/15/18 20:00 30 08/15/18 20:00 Mechanical Ventilator Mechanical Ventilator Mechanical Ventilator 08/15/18 20:00 77 08/15/18 19:00 80 17 139/87 (104) 99 08/15/18 18:56 76 15 30 08/15/18 18:00 78 17 135/70 (91) 100 08/15/18 17:42 79 21 30 08/15/18 17:00 75 16 112/98 (103) 100 08/15/18 16:00 78 08/15/18 16:00 30 08/15/18 16:00 98.2 82 18 144/73 (96) 100 08/15/18 16:00 Mechanical Ventilator Mechanical Ventilator Mechanical Ventilator 08/15/18 15:34 74 14 30 08/15/18 15:00 82 17 148/74 (98) 99 08/15/18 14:04 79 20 30 08/15/18 14:00 81 17 145/89 (107) 100 Accucheck: 80 Critical Care - Subjective ROS Limited/Unobtainable: Yes Condition: stable FI02: 30 Vent Support Breath Rate: 14 Vent Support Mode: CPAP Vent Tidal Volume: 500 Sputum Amount: Small PEEP: 5.0 PIP: 37 Tube Feeding Amount: 30 I&O: Intake and Output 08/15/18 08/16/18 19:00 07:00 Intake Total 360 ml 510 ml Output Total 250 ml 360 ml Balance 110 ml 150 ml Free Water 150 ml Tube Feeding 360 ml 360 ml Stool Total 250 ml 360 ml ET-Tube: 7.0 ET Position: 22 Joaquin Mackenzie MD Aug 16, 2018 13:40
--- NOTE | 2018-08-16 14:00 | NUR ---
NURSE NOTES: Pt on 2 L nasal cannula. No s/s of acute distress. will continue plan of care.
--- NOTE | 2018-08-16 15:21 | Surgery Progress Note ---
Surgery Progress Note Subjective Additional Comments extubated successfully. will monitor. will hopefully do well. fairly awake and alert seems to be able to protect airway Objective Last 24 Hour Vital Signs Date Time Temp Pulse Resp B/P (MAP) Pulse Ox O2 Delivery O2 Flow Rate FiO2 08/16/18 14:27 99 Nasal Cannula 4.0 36 08/16/18 14:26 Nasal Cannula 4.0 36 08/16/18 14:23 80 20 30 08/16/18 14:00 Nasal Cannula 4.0 36 08/16/18 12:00 98.2 75 16 140/62 (88) 100 08/16/18 12:00 Mechanical Ventilator Mechanical Ventilator Mechanical Ventilator 08/16/18 12:00 30 08/16/18 12:00 75 08/16/18 11:03 78 26 30 08/16/18 11:00 76 17 138/68 (91) 100 08/16/18 11:00 30 08/16/18 10:00 74 15 120/62 (81) 100 08/16/18 09:25 77 16 30 08/16/18 09:00 137/63 08/16/18 09:00 74 15 119/58 (78) 100 08/16/18 08:00 73 08/16/18 08:00 30 08/16/18 08:00 Mechanical Ventilator Mechanical Ventilator Mechanical Ventilator 08/16/18 08:00 73 18 119/63 (81) 100 08/16/18 07:25 73 15 30 08/16/18 07:00 73 19 137/63 (87) 100 08/16/18 06:00 75 17 140/68 (92) 100 08/16/18 05:17 75 16 30 08/16/18 05:00 74 18 152/73 (99) 100 08/16/18 04:00 98.6 72 16 147/68 (94) 100 08/16/18 04:00 Mechanical Ventilator Mechanical Ventilator Mechanical Ventilator 08/16/18 04:00 72 08/16/18 04:00 30 08/16/18 03:00 80 17 131/60 (83) 99 08/16/18 02:51 73 15 30 08/16/18 02:00 80 17 146/59 (88) 99 08/16/18 01:06 72 14 30 08/16/18 01:00 80 17 148/50 (82) 99 08/16/18 00:00 98.4 80 17 140/59 (86) 99 08/16/18 00:00 30 08/16/18 00:00 75 08/16/18 00:00 Mechanical Ventilator Mechanical Ventilator Mechanical Ventilator 08/15/18 23:00 80 17 131/59 (83) 99 08/15/18 22:35 73 16 30 08/15/18 22:00 80 17 132/34 (66) 99 08/15/18 21:03 74 17 30 08/15/18 21:00 80 17 139/87 (104) 99 08/15/18 20:00 80 17 138/73 (94) 99 08/15/18 20:00 30 08/15/18 20:00 Mechanical Ventilator Mechanical Ventilator Mechanical Ventilator 08/15/18 20:00 77 08/15/18 19:00 80 17 139/87 (104) 99 08/15/18 18:56 76 15 30 08/15/18 18:00 78 17 135/70 (91) 100 08/15/18 17:42 79 21 30 08/15/18 17:00 75 16 112/98 (103) 100 08/15/18 16:00 78 08/15/18 16:00 30 08/15/18 16:00 98.2 82 18 144/73 (96) 100 08/15/18 16:00 Mechanical Ventilator Mechanical Ventilator Mechanical Ventilator 08/15/18 15:34 74 14 30 I&O Intake and Output 08/15/18 08/16/18 19:00 07:00 Intake Total 360 ml 510 ml Output Total 250 ml 360 ml Balance 110 ml 150 ml Free Water 150 ml Tube Feeding 360 ml 360 ml Stool Total 250 ml 360 ml Dressing: other Wound: other Drains: other Cardiovascular: RSR Respiratory: clear Abdomen: soft, present bowel sounds, non-distended Extremities: other Laboratory Tests Test 08/16/18 07:30 08/16/18 12:26 White Blood Count 5.6 K/UL (4.8-10.8) Red Blood Count 3.36 M/UL (4.20-5.40) L Hemoglobin 9.2 G/DL (12.0-16.0) L Hematocrit 30.6 % (37.0-47.0) L Mean Corpuscular Volume 91 FL (80-99) Mean Corpuscular Hemoglobin 27.4 PG (27.0-31.0) Mean Corpuscular Hemoglobin Concent 30.0 G/DL (32.0-36.0) L Red Cell Distribution Width 17.1 % (11.6-14.8) H Platelet Count 119 K/UL (150-450) L Mean Platelet Volume 8.4 FL (6.5-10.1) Neutrophils (%) (Auto) 66.0 % (45.0-75.0) Lymphocytes (%) (Auto) 19.1 % (20.0-45.0) L Monocytes (%) (Auto) 9.9 % (1.0-10.0) Eosinophils (%) (Auto) 4.1 % (0.0-3.0) H Basophils (%) (Auto) 0.9 % (0.0-2.0) Sodium Level 138 MMOL/L (136-145) Potassium Level 3.4 MMOL/L (3.5-5.1) L Chloride Level 103 MMOL/L (98-107) Carbon Dioxide Level 28 MMOL/L (21-32) Anion Gap 7 mmol/L (5-15) Blood Urea Nitrogen 14 mg/dL (7-18) Creatinine 4.6 MG/DL (0.55-1.30) H Estimat Glomerular Filtration Rate 11.4 mL/min (>60) Glucose Level 102 MG/DL (74-106) Calcium Level 8.6 MG/DL (8.5-10.1) Arterial Blood pH 7.400 (7.350-7.450) Arterial Blood Partial Pressure CO2 48.6 mmHg (35.0-45.0) H Arterial Blood Partial Pressure O2 112.0 mmHg (75.0-100.0) H Arterial Blood HCO3 29.4 mmol/L (22.0-26.0) H Arterial Blood Oxygen Saturation 98.1 % (95-100) Arterial Blood Base Excess 4.0 (-2-2) H Nicola Test Positive Plan Problems: (1) Left heel unstageable pressure ulcer with black eschar adhered to wound bed Assessment & Plan: Stage IV Full thickness pressure injury L heel (L)3.8cm x (W )3.6cm x (D)0.7 cm. Wound wound bed granular at base (+) maceration along borders. Small amt sanguineous exudate noted from wound. Periwound skin is dry and flaky without erythema. No odor noted from wound. Transparent drsg applied along borders of wound and draped to sylvester/ distal L tibia. Granulofoam packing placed within wound and bridged over transparent drape to sylvester/distal L tibia and vac placed at this end. Abd pad then placed between Vac tubing and pt's skin to prevent pressure and wrapped with soft kerlix. L lower ext edematous L heel off-loaded with pillow. Intertriginous dermatitis with erythema and scattered satellite lesions noted to medial and posterior aspects of both upper thighs and to buttocks. Areas of maroon discoloration noted to sacrum ,R and L buttocks. R AKA stump edematous with dry, flaking skin noted. Serosanguineous exudate noted in canister. L heel wound resolving and now (L) 2.4cm x (W)3.7cm x (D) 0.3cm. Wound bed granular ,(+) maceration along borders. No odor noted. NPWT at 125mm/Hg to continuous suction. Dressing changes going well 08/12: L heel wound resolving(L)2.8cm x (W)2.7cm.Wound base moist -granular. Edges adherent to base of wound Small amt sanguineus exudate noted.Periwound intact. L heel wound cleansed with Saline.Cavilon Skin Barrier wipe applied along borders and periwound .Transparent drape aplpied periwound to protect skin and bridged to distal sylvester L tibia. Granulofoam packing then cut to conform to shape and size of wound then foam bridged away from wound,but over transparent drape to distal sylvester L tibia. Quarter size opening made at end of foam bridge and Wound vac applied.NPWt resumed at 125mm/Hg to continuous suction. Abd pad placed between wound vac tubing and skin to prevent presure to skin and wraqpped with kerlix. Non-blanchable erythema noted to L lateral malleolus. Cavilon Skin Barrier wipe applied to affected area and covered with Optifoam drsg. Tx.Plan: Cleanse L heel wound with Saline.Apply Cavilon Skin Barrier along edges and periwound .Place transparent drsg around wound. Pack with Granulofoam packing conformed to shape of wound.Bridge foam away from heel and place. Vac away from heel at either sylvester L tibia or dorsal L foot. NPWT settings at 125mm/Hg to continuous suction. Change NPWT on Mondays and and PRN.(Please remove Foam packing if NPWT is off for 2hours,place Saline wet to dry packing and cover with Optifoam .Notify Wound Nurse SHIRAZ) Apply Triad Paste to buttocks,medial and posterior aspects of both thighs with each perineal care. Air fluidized mattress. Off-load L heel with Pillow. Reposition at least every 2hours or as tolerated. (2) Encephalopathy acute Assessment & Plan: seems to be recovering extubated stable. Tuan Luis Aug 16, 2018 15:21
--- NOTE | 2018-08-16 16:00 | NUR ---
NURSE NOTES: Pt cleaned and repositioned. VSS
--- NOTE | 2018-08-16 18:14 | Cardiology Progress Note ---
Assessment/Plan Assessment/Plan Finally extubated, needs aggressive ultrafiltration for negative volume Subjective Subjective extubated, in mild respiratory distress, talkative, reports feeling good Objective Last 24 Hour Vital Signs Date Time Temp Pulse Resp B/P (MAP) Pulse Ox O2 Delivery O2 Flow Rate FiO2 08/16/18 17:00 81 20 110/57 (74) 100 08/16/18 16:00 81 08/16/18 16:00 Nasal Cannula 2.0 08/16/18 16:00 2.0 08/16/18 16:00 98.0 75 16 120/62 (81) 100 08/16/18 15:00 76 17 119/68 (85) 100 08/16/18 14:27 99 Nasal Cannula 4.0 36 08/16/18 14:26 Nasal Cannula 4.0 36 08/16/18 14:23 80 20 30 08/16/18 14:00 79 17 132/70 (90) 100 08/16/18 14:00 Nasal Cannula 4.0 36 08/16/18 13:00 77 17 129/60 (83) 100 08/16/18 12:00 98.2 75 16 140/62 (88) 100 08/16/18 12:00 Mechanical Ventilator Mechanical Ventilator Mechanical Ventilator 08/16/18 12:00 30 08/16/18 12:00 75 08/16/18 11:03 78 26 30 08/16/18 11:00 76 17 138/68 (91) 100 08/16/18 11:00 30 08/16/18 10:00 74 15 120/62 (81) 100 08/16/18 09:25 77 16 30 08/16/18 09:00 137/63 08/16/18 09:00 74 15 119/58 (78) 100 08/16/18 08:00 73 08/16/18 08:00 30 08/16/18 08:00 Mechanical Ventilator Mechanical Ventilator Mechanical Ventilator 08/16/18 08:00 73 18 119/63 (81) 100 08/16/18 07:25 73 15 30 08/16/18 07:00 73 19 137/63 (87) 100 08/16/18 06:00 75 17 140/68 (92) 100 08/16/18 05:17 75 16 30 08/16/18 05:00 74 18 152/73 (99) 100 08/16/18 04:00 98.6 72 16 147/68 (94) 100 08/16/18 04:00 Mechanical Ventilator Mechanical Ventilator Mechanical Ventilator 08/16/18 04:00 72 08/16/18 04:00 30 08/16/18 03:00 80 17 131/60 (83) 99 08/16/18 02:51 73 15 30 08/16/18 02:00 80 17 146/59 (88) 99 08/16/18 01:06 72 14 30 08/16/18 01:00 80 17 148/50 (82) 99 08/16/18 00:00 98.4 80 17 140/59 (86) 99 08/16/18 00:00 30 08/16/18 00:00 75 08/16/18 00:00 Mechanical Ventilator Mechanical Ventilator Mechanical Ventilator 08/15/18 23:00 80 17 131/59 (83) 99 08/15/18 22:35 73 16 30 08/15/18 22:00 80 17 132/34 (66) 99 08/15/18 21:03 74 17 30 08/15/18 21:00 80 17 139/87 (104) 99 08/15/18 20:00 80 17 138/73 (94) 99 08/15/18 20:00 30 08/15/18 20:00 Mechanical Ventilator Mechanical Ventilator Mechanical Ventilator 08/15/18 20:00 77 08/15/18 19:00 80 17 139/87 (104) 99 08/15/18 18:56 76 15 30 General Appearance: alert, mild distress EENT: other Neck: JVD Rhythm: NSR Cardiovascular: systolic murmur Respiratory/Chest: crackles/rales - at bases Abdomen: soft Extremities: other Intake and Output 08/15/18 08/16/18 19:00 07:00 Intake Total 360 ml 510 ml Output Total 250 ml 360 ml Balance 110 ml 150 ml Free Water 150 ml Tube Feeding 360 ml 360 ml Stool Total 250 ml 360 ml Laboratory Tests Test 08/16/18 07:30 08/16/18 12:26 White Blood Count 5.6 K/UL (4.8-10.8) Red Blood Count 3.36 M/UL (4.20-5.40) L Hemoglobin 9.2 G/DL (12.0-16.0) L Hematocrit 30.6 % (37.0-47.0) L Mean Corpuscular Volume 91 FL (80-99) Mean Corpuscular Hemoglobin 27.4 PG (27.0-31.0) Mean Corpuscular Hemoglobin Concent 30.0 G/DL (32.0-36.0) L Red Cell Distribution Width 17.1 % (11.6-14.8) H Platelet Count 119 K/UL (150-450) L Mean Platelet Volume 8.4 FL (6.5-10.1) Neutrophils (%) (Auto) 66.0 % (45.0-75.0) Lymphocytes (%) (Auto) 19.1 % (20.0-45.0) L Monocytes (%) (Auto) 9.9 % (1.0-10.0) Eosinophils (%) (Auto) 4.1 % (0.0-3.0) H Basophils (%) (Auto) 0.9 % (0.0-2.0) Sodium Level 138 MMOL/L (136-145) Potassium Level 3.4 MMOL/L (3.5-5.1) L Chloride Level 103 MMOL/L (98-107) Carbon Dioxide Level 28 MMOL/L (21-32) Anion Gap 7 mmol/L (5-15) Blood Urea Nitrogen 14 mg/dL (7-18) Creatinine 4.6 MG/DL (0.55-1.30) H Estimat Glomerular Filtration Rate 11.4 mL/min (>60) Glucose Level 102 MG/DL (74-106) Calcium Level 8.6 MG/DL (8.5-10.1) Arterial Blood pH 7.400 (7.350-7.450) Arterial Blood Partial Pressure CO2 48.6 mmHg (35.0-45.0) H Arterial Blood Partial Pressure O2 112.0 mmHg (75.0-100.0) H Arterial Blood HCO3 29.4 mmol/L (22.0-26.0) H Arterial Blood Oxygen Saturation 98.1 % (95-100) Arterial Blood Base Excess 4.0 (-2-2) H Nicola Test Positive Clarisse Daley MD Aug 16, 2018 18:14
--- NOTE | 2018-08-16 19:04 | NUR ---
HAND-OFF: Report given to CHAPIS Norman. VSS.
--- NOTE | 2018-08-16 19:05 | NUR ---
NURSE NOTES: Endorsement received from CHAPIS Montes. Patient legally blind. Opens eyes spontaneously, able to verbalize needs, follows commands. On 2LPM oxygen per nasal cannula. No shortness of breath. With OGT. Placement rechecked per auscultation, 30ml residual of feeding noted. Ongoing Nepro 30ml/hr. With right upper arm shunt, no bleeding with dressing dry and intact. Bruit and thrill present. Left thumb g22 IV saline lock, patent when flushed. Right BKA, stump kept elevated. With left foot connected to wound vacc. Wound vacc settings 125mmHg suction as ordered. Dressing dry and intact. Head of bed elevated. Bed alarm on. Bed locked and in low position.
[2018-08-16] MEDS ORDERED: Epoetin Alfa(ESRD on dialysis)10,000 unit/ml vial SUBQ SCH (21:00)
[2018-08-16] MEDS: Sennosides 8.6mg tab ORAL SCH (21:00)
--- NOTE | 2018-08-16 21:00 | NUR ---
NURSE NOTES: Patient asleep. No shortness of breath.
--- NOTE | 2018-08-16 23:00 | NUR ---
NURSE NOTES: Patient with leaked from the rectal tube. Bed bath, change of linens done.
[2018-08-17] VITALS (24 sets, daily range): BP systolic 107–135; BP diastolic 50–72
--- NOTE | 2018-08-17 01:00 | NUR ---
NURSE NOTES: Patient asleep. Tolerating tube feeding.
--- NOTE | 2018-08-17 03:00 | NUR ---
NURSE NOTES: Repositioned patient. Vital signs stable.
--- NOTE | 2018-08-17 05:00 | NUR ---
NURSE NOTES: No complaints of pain. Sinus rhythm on the monitor.
--- NOTE | 2018-08-17 07:19 | NUR ---
HAND-OFF: Report given to CHAPIS Fine.
--- NOTE | 2018-08-17 07:20 | NUR ---
NURSE NOTES: Received patient lying in bed, awake, able to communicate needs, no complains of pain. On nasal cannula on 2 Lpm, respirations even and unlabored, no acute distress, oxygen saturation at 100%. Oral g-tube in place, running nephro at 30 ml/hr, no residual. HOB elevated to prevent aspiration. Left hand 22g saline lock, asymptomatic, flushed. Rectal tube in place, draining loose output. Left heel with wound vacuum in place, continuous suction at 125mmHg. Sinus Rhythm on the monitor. Safety measures implemented, call light within reach. Will continue to monitor.
--- NOTE | 2018-08-17 08:26 | Critical Care Progress Note ---
Assessment/Plan Assessment/Plan IMPRESSION: 1. Acute on chronic respiratory failure. 2. Acute hypercapnia, resolved with positive pressure ventilation 3. Hypoxemia. 4. Bilateral pleural effusions. and pulmonary edema 5. Fluid overload. 6. End-stage renal disease. 7. Severe protein-calorie malnutrition. 8. Anemia. 9. Thrombocytopenia. 10. Mild coagulopathy. 11. acute on chronic encephalopathy PLAN monitor off vent nocturnal BIPAP monitor acid base for change Avoid all sedation will follow up for change and monitor clinically nutrition as able and aspiration precautions keep negative as per renal and cards monitor imaging for change nutrition as able Elevate head medications/laboratory data/nursing notes/ICU care reviewed in detail note reviewed and edited care discussed with RN and RT ICU time spent 42 minutes Critical Care - Subjective Interval Events: Extubated successfully Currently on oxygen and nasal cannula Difficult to extubate and noted to have significant CO2 retention ROS Limited/Unobtainable: Yes Condition: critical EKG Rhythm: Sinus Rhythm I&O: Intake and Output 08/16/18 08/17/18 18:59 06:59 Intake Total 330 ml 520 ml Output Total 4000 ml 100 ml Balance -3670 ml 420 ml Free Water 100 ml Tube Feeding 330 ml 360 ml Other 60 ml Stool Total 100 ml Hemodialysis UF 4000 ml Critical Care - Objective ET-Tube: 7.0 ET Position: 22 Last 24 Hour Vital Signs Date Time Temp Pulse Resp B/P (MAP) Pulse Ox O2 Delivery O2 Flow Rate FiO2 08/17/18 07:00 71 15 127/57 (80) 100 08/17/18 06:00 72 17 121/62 (81) 100 08/17/18 05:00 73 14 117/57 (77) 100 08/17/18 04:00 Nasal Cannula 2.0 08/17/18 04:00 98.0 74 17 120/65 (83) 100 08/17/18 04:00 74 08/17/18 03:00 74 16 108/56 (73) 100 08/17/18 02:00 80 19 121/63 (82) 100 08/17/18 01:00 77 19 118/64 (82) 100 08/17/18 00:00 98.1 74 15 119/58 (78) 100 08/17/18 00:00 Nasal Cannula 2.0 08/17/18 00:00 71 08/16/18 23:00 74 15 108/61 (77) 100 08/16/18 22:51 75 16 116/60 (78) 100 08/16/18 22:00 76 22 78/42 (54) 100 08/16/18 21:33 99 Nasal Cannula 1.0 24 08/16/18 21:33 Nasal Cannula 1.0 24 08/16/18 21:00 72 18 115/58 (77) 100 08/16/18 20:00 98.0 76 20 117/61 (79) 100 08/16/18 20:00 Nasal Cannula 2.0 08/16/18 20:00 76 08/16/18 19:00 79 20 120/59 (79) 100 08/16/18 18:00 77 20 122/62 (82) 100 08/16/18 17:00 81 20 110/57 (74) 100 08/16/18 16:00 81 08/16/18 16:00 Nasal Cannula 2.0 08/16/18 16:00 2.0 08/16/18 16:00 98.0 75 16 120/62 (81) 100 08/16/18 15:00 76 17 119/68 (85) 100 08/16/18 14:27 99 Nasal Cannula 4.0 36 08/16/18 14:26 Nasal Cannula 4.0 36 08/16/18 14:23 80 20 30 08/16/18 14:00 79 17 132/70 (90) 100 08/16/18 14:00 Nasal Cannula 4.0 36 08/16/18 13:00 77 17 129/60 (83) 100 08/16/18 12:00 98.2 75 16 140/62 (88) 100 08/16/18 12:00 Mechanical Ventilator Mechanical Ventilator Mechanical Ventilator 08/16/18 12:00 30 08/16/18 12:00 75 08/16/18 11:03 78 26 30 08/16/18 11:00 76 17 138/68 (91) 100 08/16/18 11:00 30 08/16/18 10:00 74 15 120/62 (81) 100 08/16/18 09:25 77 16 30 08/16/18 09:00 137/63 08/16/18 09:00 74 15 119/58 (78) 100 Labs: Laboratory Tests Test 08/16/18 12:26 Arterial Blood pH 7.400 (7.350-7.450) Arterial Blood Partial Pressure CO2 48.6 mmHg (35.0-45.0) H Arterial Blood Partial Pressure O2 112.0 mmHg (75.0-100.0) H Arterial Blood HCO3 29.4 mmol/L (22.0-26.0) H Arterial Blood Oxygen Saturation 98.1 % (95-100) Arterial Blood Base Excess 4.0 (-2-2) H Nicola Test Positive Objective: WDWN NAD extubated reduced breath sounds bilaterally without rhonchi or wheeze [id number] without MRG NABS nontender no HSM; feeding tube no CC edema nonfocal and altered without change, awake and blind skin exam noted reviewed and examined Accucheck: 97 Gustavo Rolon MD Aug 17, 2018 08:26
--- NOTE | 2018-08-17 09:00 | NUR ---
NURSE NOTES: Patient requesting assistance to call family members with her phone, all goes to voice mail. Patient remains stable, no complains of pain.
[2018-08-17] MEDS: Pantoprazole Inj IVP SCH (09:26)
[2018-08-17] MEDS: Nephrovite tab (Rena-Vite) ORAL SCH (09:26)
[2018-08-17] MEDS: Losartan 25mg tab ORAL SCH (09:27)
[2018-08-17] MEDS: Spironolactone 25mg tab ORAL SCH (09:27)
[2018-08-17] MEDS: Aspirin Baby 81mg ORAL SCH (09:27)
[2018-08-17] MEDS: Miconazole 2% Cr 15gm TOPIC SCH ×2 (09:28→18:00)
--- NOTE | 2018-08-17 10:51 | NUR ---
NURSE NOTES: Wound vacuum dressing changed by [facility] wound care nurse. Patient tolerating procedure.
--- NOTE | 2018-08-17 11:45 | NUR ---
NURSE NOTES: Left a message for Dr. Fuller.
--- NOTE | 2018-08-17 13:57 | NUR ---
NURSE NOTES:WOUND CARE NOTES:NPWT changed. L heel wound cleansed with saline .Edges and periwound prepped with Cavilon Skin Barrier then draped along edges and periwound extending to dorsal aspect of L foot with transparent drsg.Granulofoam cut to conform to shape of wound then bridged over transparent drsg to dorsal aspect of L foot and covered . Vac placed at dorsal aspect of L foot .NPWT resumed at 125mm/Hg to continuous suction.Abd pad placed under NPWT tubing to prevent pressure to skin ,then wrapped with Kerlix. Moisture associated skin damage resolving .Erythema persists but skin is intact. Pt tolerated procedure .No new skin concerns noted.
--- NOTE | 2018-08-17 13:58 | Infectious Diseases Prog Note ---
"Assessment/Plan Assessment/Plan A: 1. enterococcus | streptococcus UTI treated 2. pneumonia treated 3. diabetes mellitus 4. hypertension 5. renal failure on hemodialysis 6. history of left foot osteomyelitis &. Hypercapnic respiratory failure 9. Pleural effusion, more in R side 10. Acinetobacter pneumonia treated P 1. Observe off antibiotic Subjective ROS Limited/Unobtainable: Yes Constitutional: Reports: no symptoms Respiratory: Reports: other - extubated yesterday Musculoskeletal: Reports: no symptoms Allergies: Coded Allergies: BENAZEPRIL (Verified Allergy, Unknown, 06/12/18) CODEINE (Verified Allergy, Unknown, 06/12/18) INSULIN ASPART (Verified Allergy, Unknown, 06/12/18) INSULIN DETEMIR (Verified Allergy, Unknown, 06/12/18) OPIOIDS - MORPHINE ANALOGUES (Verified Allergy, Unknown, 06/12/18) Objective Vital Signs Last 24 Hour Vital Signs Date Time Temp Pulse Resp B/P (MAP) Pulse Ox O2 Delivery O2 Flow Rate FiO2 08/17/18 12:00 98.0 77 20 135/67 (89) 100 08/17/18 12:00 83 08/17/18 12:00 Nasal Cannula 2.0 08/17/18 11:00 77 20 133/70 (91) 100 08/17/18 10:00 77 17 129/64 (85) 100 08/17/18 09:27 127/66 08/17/18 09:00 77 17 127/66 (86) 100 08/17/18 08:00 Nasal Cannula 2.0 08/17/18 08:00 79 08/17/18 08:00 97.6 78 17 125/63 (83) 100 08/17/18 07:00 71 15 127/57 (80) 100 08/17/18 06:00 72 17 121/62 (81) 100 08/17/18 05:00 73 14 117/57 (77) 100 08/17/18 04:00 Nasal Cannula 2.0 08/17/18 04:00 98.0 74 17 120/65 (83) 100 08/17/18 04:00 74 08/17/18 03:00 74 16 108/56 (73) 100 08/17/18 02:00 80 19 121/63 (82) 100 08/17/18 01:00 77 19 118/64 (82) 100 08/17/18 00:00 98.1 74 15 119/58 (78) 100 08/17/18 00:00 Nasal Cannula 2.0 08/17/18 00:00 71 08/16/18 23:00 74 15 108/61 (77) 100 08/16/18 22:51 75 16 116/60 (78) 100 08/16/18 22:00 76 22 78/42 (54) 100 08/16/18 21:33 99 Nasal Cannula 1.0 24 08/16/18 21:33 Nasal Cannula 1.0 24 08/16/18 21:00 72 18 115/58 (77) 100 08/16/18 20:00 98.0 76 20 117/61 (79) 100 08/16/18 20:00 Nasal Cannula 2.0 08/16/18 20:00 76 08/16/18 19:00 79 20 120/59 (79) 100 08/16/18 18:00 77 20 122/62 (82) 100 08/16/18 17:00 81 20 110/57 (74) 100 08/16/18 16:00 81 08/16/18 16:00 Nasal Cannula 2.0 08/16/18 16:00 2.0 08/16/18 16:00 98.0 75 16 120/62 (81) 100 08/16/18 15:00 76 17 119/68 (85) 100 08/16/18 14:27 99 Nasal Cannula 4.0 36 08/16/18 14:26 Nasal Cannula 4.0 36 08/16/18 14:23 80 20 30 08/16/18 14:00 79 17 132/70 (90) 100 08/16/18 14:00 Nasal Cannula 4.0 36 Height (Feet): 5 Height (Inches): 7.00 Weight (Pounds): 179 General Appearance: no acute distress HEENT: mucous membranes moist, other - R corneal opacity Respiratory/Chest: lungs clear Cardiovascular: normal rate Abdomen: soft, non tender, other - orogastric tube feeding Extremities: other - R BKA Skin: ulcers Neurologic/Psychiatric: alert, responsive Current Medications Medications (Trade) Dose Ordered Sig/Andre Route PRN Reason Start Time Stop Time Status Last Admin Dose Admin Aspirin (ASA) 81 mg DAILY ORAL 08/02/18 12:30 09/01/18 12:29 08/17/18 09:27 Diphenoxylate HCl/ Atropine (Lomotil) 2.5 mg Q4H PRN ORAL Diarrhea 08/02/18 12:30 08/29/18 12:29 Epoetin Marcus (Epoetin Marcus(ESRD on dialysis)) 10,000 unit SUBQ 08/16/18 21:00 09/15/18 20:59 08/16/18 21:46 Losartan Potassium (Cozaar) 25 mg DAILY ORAL 08/10/18 09:00 09/09/18 08:59 08/17/18 09:27 Miconazole Nitrate (Monistat-Derm) 1 applic TWICE A DAY TOPIC 08/09/18 21:30 09/08/18 21:29 08/17/18 09:28 Pantoprazole (Protonix) 40 mg DAILY IVP 08/03/18 09:00 09/02/18 08:59 08/17/18 09:26 Polyethylene Glycol (Miralax) 17 gm DAILYPRN PRN ORAL Constipation 08/02/18 13:00 08/26/18 12:59 Sennosides (Senokot) 17.2 mg QHS ORAL 08/02/18 21:00 08/17/18 20:59 08/15/18 20:51 Spironolactone (Aldactone) 25 mg DAILY ORAL 08/14/18 09:00 09/13/18 08:59 08/17/18 09:27 Vitamin B Complex/ Vit C/Folic Acid (Nephrovite) 1 tab DAILY ORAL 08/02/18 13:00 09/01/18 12:59 08/17/18 09:26 Joe Melgar MD Aug 17, 2018 13:58"
--- NOTE | 2018-08-17 14:31 | NUR ---
RD ASSESSMENT & RECOMMENDATIONS SEE CARE ACTIVITY FOR COMPLETE ASSESSMENT DAILY ESTIMATED NEEDS: Needs based on ESRD on HD, Wound (Adj Wt 71kg) 25-30 kcals/kg [id number] total kcals 1.2-1.8 g protein/kg 85-128 g total protein Fluid per MD, on HD mL/kg . total fluid mLs NUTRITION DIAGNOSIS: 1) Increased kcal, pro needs R/T wound healing and renal dysfunction as evidenced by pt w/ left heel, sacral and lt ischial wounds, w/ ESRD on HD. 2) Altered nutrition related lab values R/T diabetes, clinical condition as evidenced by pt now w/ hypoglycemic episodes, improved. CURRENT TF:Nepro @ 30ml/hr x 24 hrs PO DIET RECOMMENDATIONS: ELECTRONIC PREPRESS SYSTEM OPERATOR EVALUATION PRIOR TO DIET INITIATION-> RENAL/ TEXTURE PER ELECTRONIC PREPRESS SYSTEM OPERATOR ENTERAL NUTRITION RECOMMENDATIONS: Nepro @ 42ml/hr x 24 hrs to provide 1008ml, 1814kcal, 87g prot, 785ml free water * Rec to increase goal rate to 42ml/hr. * HOB over 30 degrees/ water flush per MD. ADDITIONAL RECOMMENDATIONS: * CALIBRATED BEDSCALE WT FOR ACCURATE CBW * ELECTRONIC PREPRESS SYSTEM OPERATOR EVALUATION PRIOR TO DIET INITIATION * ADD UVEN 1PKT BID FOR WOUND HEALING * MONITOR BGS, MONITOR FOR HYPOGLYCEMIA * MONITOR LYTES AND RENAL FXN . .
--- NOTE | 2018-08-17 16:32 | Nephrology Progress Note ---
Assessment/Plan Plan Successful Extubation after very aggressive HD with UF of 4 L. To remove additional 2.5 to 3 tonight in order to keep off fluids! To [facility]. Subjective Subjective Finally extubated last night after very aggressive HD with UF of 4 L. In ICU. Objective Objective Last 24 Hour Vital Signs Date Time Temp Pulse Resp B/P (MAP) Pulse Ox O2 Delivery O2 Flow Rate FiO2 08/17/18 16:00 Nasal Cannula 2.0 08/17/18 15:00 77 18 126/68 (87) 99 08/17/18 14:00 80 16 123/65 (84) 100 08/17/18 13:00 79 19 134/66 (88) 99 08/17/18 12:00 98.0 77 20 135/67 (89) 100 08/17/18 12:00 83 08/17/18 12:00 Nasal Cannula 2.0 08/17/18 11:00 77 20 133/70 (91) 100 08/17/18 10:00 77 17 129/64 (85) 100 08/17/18 09:27 127/66 08/17/18 09:00 77 17 127/66 (86) 100 08/17/18 08:00 Nasal Cannula 2.0 08/17/18 08:00 79 08/17/18 08:00 97.6 78 17 125/63 (83) 100 08/17/18 07:00 71 15 127/57 (80) 100 08/17/18 06:00 72 17 121/62 (81) 100 08/17/18 05:00 73 14 117/57 (77) 100 08/17/18 04:00 Nasal Cannula 2.0 08/17/18 04:00 98.0 74 17 120/65 (83) 100 08/17/18 04:00 74 08/17/18 03:00 74 16 108/56 (73) 100 08/17/18 02:00 80 19 121/63 (82) 100 08/17/18 01:00 77 19 118/64 (82) 100 08/17/18 00:00 98.1 74 15 119/58 (78) 100 08/17/18 00:00 Nasal Cannula 2.0 08/17/18 00:00 71 08/16/18 23:00 74 15 108/61 (77) 100 08/16/18 22:51 75 16 116/60 (78) 100 08/16/18 22:00 76 22 78/42 (54) 100 08/16/18 21:33 99 Nasal Cannula 1.0 24 08/16/18 21:33 Nasal Cannula 1.0 24 08/16/18 21:00 72 18 115/58 (77) 100 08/16/18 20:00 98.0 76 20 117/61 (79) 100 08/16/18 20:00 Nasal Cannula 2.0 08/16/18 20:00 76 08/16/18 19:00 79 20 120/59 (79) 100 08/16/18 18:00 77 20 122/62 (82) 100 08/16/18 17:00 81 20 110/57 (74) 100 Intake and Output 08/16/18 08/17/18 19:00 07:00 Intake Total 330 ml 520 ml Output Total 4000 ml 100 ml Balance -3670 ml 420 ml Free Water 100 ml Tube Feeding 330 ml 360 ml Other 60 ml Stool Total 100 ml Hemodialysis UF 4000 ml Height (Feet): 5 Height (Inches): 7.00 Weight (Pounds): 179 Objective Extubated. NAD Blind CV RR Lungs CTA Abd SNT. BS + E No CCE Neuro:Alert, nonfocal. Brenda Fuller MD Aug 17, 2018 16:32
--- NOTE | 2018-08-17 17:00 | NUR ---
NURSE NOTES: Contacted [facility] hemodialysis, spoke with Mary Alice HD RN to call back to confirm HD.
--- NOTE | 2018-08-17 17:00 | NUR ---
NURSE NOTES: Perineal care provided. Patient repositioned. Patient does her own oral care suctioning. HOB elevated.
--- NOTE | 2018-08-17 19:00 | NUR ---
NURSE NOTES: Miconazole administered at 1800 topical cream administered to bilateral arm pits, administration of medication did not go through eMAR.
--- NOTE | 2018-08-17 19:40 | NUR ---
NURSE NOTES: Report received from CHAPIS Fine. Patient legally blind. Opens eyes spontaneously, able to verbalize needs, follows commands. On 2LPM oxygen per nasal cannula. No shortness of breath. With OGT. Placement rechecked per auscultation, 10 ml residual of feeding noted. Ongoing Nepro 30ml/hr. With right upper arm shunt, no bleeding with dressing dry and intact. Bruit and thrill present. Left thumb g22 IV saline lock, patent when flushed. Right BKA, stump kept elevated. With left foot connected to wound vacc. Wound vacc settings 125mmHg suction as ordered. Dressing dry and intact. Head of bed elevated. Bed alarm on. Bed locked and in low position.
--- NOTE | 2018-08-17 20:19 | NUR ---
HAND-OFF: Report given to CHAPIS Mckeon. Addendum: 08/17/18 at 2020 by Babatunde Chirinos RN Darrell gonzales, meant for 19:50
--- NOTE | 2018-08-17 22:00 | NUR ---
NURSE NOTES: Planning to transfer pt to [facility] per order, [facility] dialysis nurse is here to dialyze the pt. Pt's in no acute distress. VS stable BP 120/55, HR 73, R 17, O2 sat 100%.Will continue to monitor.
[2018-08-18] VITALS (9 sets, daily range): BP systolic 114–135; BP diastolic 59–74
--- NOTE | 2018-08-18 | NUR ---
NURSE NOTES: HD finished, 2.3 L was removed, pt's VS stable, no acute distress, no bleeding at the site. BP122/64, HR 75, O2 sat 100, R 16. Afebrile. Will continue to monitor.
--- NOTE | 2018-08-18 02:00 | NUR ---
NURSE NOTES: Pt's resting in bed asleep, in no acute distress. VS stable. Will continue to monitor.
--- NOTE | 2018-08-18 02:45 | NUR ---
NURSE NOTES: Received report from Gloria Cavazos RN. Patient is awake in bed, A/O x3. No s/s of acute distress noted. Sinus Rhythm on color television console monitor. On 2L O2 via nasal cannula and saturating well. Receiving Nepro @ 30 cc/hr via OGT and tolerating well. Rectal tube in place and patent. Left thumb 22g saline lock, intact and patent. Bed locked in lowest position with side rails up x3. Call light left within reach. Will continue to monitor.
--- NOTE | 2018-08-18 02:59 | NUR ---
TRANSFER TO FLOOR: Patient transferred to [facility], per Dr Fuller. Report given to CHAPIS Cooper. Belongings and medications given to staff nurse. Family and or S/O informed of transfer.
[2018-08-18] MEDS ORDERED: Heparin Sod 1000 units/ml 10ml IV ONE (03:15)
--- NOTE | 2018-08-18 03:53 | NUR ---
NURSE NOTES: Pictures taken of perineal/inner thigh redness and sacral redness after transfer. Picture taken of left heel diabetic ulcer in ICU prior to transfer.
[2018-08-18] MEDS ORDERED: Miralax 17gm pkt ORAL PRN (04:00)
[2018-08-18] MEDS ORDERED: Lomotil 2.5mg tab ORAL PRN (04:30)
[2018-08-18 06:54] LABS: ALANINE AMINOTRANSFERASE 9 U/L (12-78); ALBUMIN 1.9 G/DL (3.4-5.0); ALBUMIN/GLOBULIN RATIO 0.4 (1.0-2.7); ALKALINE PHOSPHATASE 137 U/L (46-116); ANION GAP 11 mmol/L (5-15); ASPARTATE AMINO TRANSFERASE 17 U/L (15-37); BILIRUBIN,TOTAL 0.4 MG/DL (0.2-1.0); BLOOD UREA NITROGEN 11 mg/dL (7-18); CALCIUM 8.5 MG/DL (8.5-10.1); CARBON DIOXIDE 25 MMOL/L (21-32); CHLORIDE 102 MMOL/L (98-107); CREATININE 4.4 MG/DL (0.55-1.30); POTASSIUM 4.1 MMOL/L (3.5-5.1); SODIUM 138 MMOL/L (136-145)
[2018-08-18 07:02] LABS: HEMATOCRIT 31.5 % (37.0-47.0); HEMOGLOBIN 9.3 G/DL (12.0-16.0); MEAN CORPUSCULAR VOLUME 93 FL (80-99); PLATELET COUNT 135 K/UL (150-450); RED BLOOD COUNT 3.38 M/UL (4.20-5.40); WHITE BLOOD COUNT 3.3 K/UL (4.8-10.8)
--- NOTE | 2018-08-18 07:05 | NUR ---
HAND-OFF: Report given to Cris Haro RN.
--- NOTE | 2018-08-18 07:06 | NUR ---
NURSE NOTES: Received patient from CHAPIS Cooper. Patient in bed, awake, AOx3. science manager in placed. On 2L NC. OGT in placed with Nephro at 30cc/hour. Rectal tube in placed and draining. IV site is asymptomatic. Bed in lowest position with side rails up and locked. Will continue to follow plan of care.
[2018-08-18] MEDS: Pantoprazole Inj IVP SCH (08:32)
[2018-08-18] MEDS: Spironolactone 25mg tab ORAL SCH (08:33)
[2018-08-18] MEDS: Nephrovite tab (Rena-Vite) ORAL SCH (08:33)
[2018-08-18] MEDS: Aspirin Baby 81mg ORAL SCH (08:33)
[2018-08-18] MEDS: Losartan 25mg tab ORAL SCH (08:33)
[2018-08-18] MEDS: Miconazole 2% Cr 15gm TOPIC SCH ×2 (08:35→17:30)
--- NOTE | 2018-08-18 10:55 | Infectious Diseases Prog Note ---
"Assessment/Plan Assessment/Plan antibiotics ; none A 1. enterococcus | streptococcus UTI s/p rx 2. acenitobacter pneumonia s/p rx 3. diabetes mellitus 4. hypertension 5. renal failure on hemodialysis 6. history of left foot osteomyelitis 7. respiratory failure resolved P 1. continue off antibiotics Subjective ROS Limited/Unobtainable: Yes Allergies: Coded Allergies: BENAZEPRIL (Verified Allergy, Unknown, 06/12/18) CODEINE (Verified Allergy, Unknown, 06/12/18) INSULIN ASPART (Verified Allergy, Unknown, 06/12/18) INSULIN DETEMIR (Verified Allergy, Unknown, 06/12/18) OPIOIDS - MORPHINE ANALOGUES (Verified Allergy, Unknown, 06/12/18) Objective Vital Signs Last 24 Hour Vital Signs Date Time Temp Pulse Resp B/P (MAP) Pulse Ox O2 Delivery O2 Flow Rate FiO2 08/18/18 08:33 132/61 08/18/18 08:00 74 08/18/18 08:00 97.2 74 18 132/61 (84) 100 08/18/18 08:00 Nasal Cannula 2.0 08/18/18 04:00 97.8 74 18 135/74 (94) 99 08/18/18 04:00 Nasal Cannula 2.0 08/18/18 03:43 74 08/18/18 02:45 97.2 76 20 132/73 (92) 100 08/18/18 02:00 75 20 124/63 (83) 99 08/18/18 01:00 77 20 122/64 (83) 99 08/18/18 00:00 98.0 76 18 123/63 (83) 100 08/18/18 00:00 Nasal Cannula 2.0 08/17/18 23:00 72 20 130/65 (86) 100 08/17/18 22:00 73 16 120/55 (76) 100 08/17/18 21:00 74 15 120/55 (76) 100 08/17/18 20:00 69 14 107/50 (69) 100 08/17/18 20:00 Nasal Cannula 2.0 08/17/18 20:00 71 08/17/18 19:00 98.0 77 14 108/54 (72) 100 08/17/18 18:00 78 16 132/68 (89) 100 08/17/18 17:00 77 20 119/68 (85) 100 08/17/18 16:00 84 08/17/18 16:00 97.5 82 18 122/72 (89) 100 08/17/18 16:00 Nasal Cannula 2.0 08/17/18 15:00 77 18 126/68 (87) 99 08/17/18 14:00 80 16 123/65 (84) 100 08/17/18 13:00 79 19 134/66 (88) 99 08/17/18 12:00 98.0 77 20 135/67 (89) 100 08/17/18 12:00 83 08/17/18 12:00 Nasal Cannula 2.0 08/17/18 11:00 77 20 133/70 (91) 100 Height (Feet): 5 Height (Inches): 7.00 Weight (Pounds): 197 Respiratory/Chest: lungs clear Cardiovascular: normal rate, regular rhythm, no gallop/murmur Abdomen: normal bowel sounds Extremities: no edema, other - right stump clean, left foot in dressings, VAC Laboratory Tests Test 08/18/18 06:15 White Blood Count 3.3 K/UL (4.8-10.8) L Red Blood Count 3.38 M/UL (4.20-5.40) L Hemoglobin 9.3 G/DL (12.0-16.0) L Hematocrit 31.5 % (37.0-47.0) L Mean Corpuscular Volume 93 FL (80-99) Mean Corpuscular Hemoglobin 27.5 PG (27.0-31.0) Mean Corpuscular Hemoglobin Concent 29.4 G/DL (32.0-36.0) L Red Cell Distribution Width 18.0 % (11.6-14.8) H Platelet Count 135 K/UL (150-450) L Mean Platelet Volume 6.6 FL (6.5-10.1) Neutrophils (%) (Auto) % (45.0-75.0) Lymphocytes (%) (Auto) % (20.0-45.0) Monocytes (%) (Auto) % (1.0-10.0) Eosinophils (%) (Auto) % (0.0-3.0) Basophils (%) (Auto) % (0.0-2.0) Differential Total Cells Counted 100 Neutrophils % (Manual) 34 % (45-75) L Lymphocytes % (Manual) 44 % (20-45) Monocytes % (Manual) 12 % (1-10) H Eosinophils % (Manual) 7 % (0-3) H Basophils % (Manual) 2 % (0-2) Band Neutrophils 1 % (0-8) Platelet Estimate Decreased L Platelet Morphology Normal Hypochromasia 1+ Anisocytosis 2+ Sodium Level 138 MMOL/L (136-145) Potassium Level 4.1 MMOL/L (3.5-5.1) Chloride Level 102 MMOL/L (98-107) Carbon Dioxide Level 25 MMOL/L (21-32) Anion Gap 11 mmol/L (5-15) Blood Urea Nitrogen 11 mg/dL (7-18) Creatinine 4.4 MG/DL (0.55-1.30) H Estimat Glomerular Filtration Rate 12.0 mL/min (>60) Glucose Level 51 MG/DL (74-106) L Calcium Level 8.5 MG/DL (8.5-10.1) Total Bilirubin 0.4 MG/DL (0.2-1.0) Aspartate Amino Transf (AST/SGOT) 17 U/L (15-37) Alanine Aminotransferase (ALT/SGPT) 9 U/L (12-78) L Alkaline Phosphatase 137 U/L (46-116) H Total Protein 6.7 G/DL (6.4-8.2) Albumin 1.9 G/DL (3.4-5.0) L Globulin 4.8 g/dL Albumin/Globulin Ratio 0.4 (1.0-2.7) L Current Medications Medications (Trade) Dose Ordered Sig/Andre Route PRN Reason Start Time Stop Time Status Last Admin Dose Admin Aspirin (ASA) 81 mg DAILY ORAL 08/18/18 09:00 09/01/18 12:29 08/18/18 08:33 Diphenoxylate HCl/ Atropine (Lomotil) 2.5 mg Q4H PRN ORAL Diarrhea 08/18/18 04:30 08/29/18 12:29 Epoetin Marcus (Epoetin Marcus(ESRD on dialysis)) 10,000 unit TUE-TUE-TUE SUBQ 08/18/18 21:00 09/15/18 20:59 Losartan Potassium (Cozaar) 25 mg DAILY ORAL 08/18/18 09:00 09/09/18 08:59 08/18/18 08:33 Miconazole Nitrate (Monistat-Derm) 1 applic TWICE A DAY TOPIC 08/18/18 09:00 09/08/18 21:29 08/18/18 08:35 Pantoprazole (Protonix) 40 mg DAILY IVP 08/18/18 09:00 09/02/18 08:59 08/18/18 08:32 Polyethylene Glycol (Miralax) 17 gm DAILYPRN PRN ORAL Constipation 08/18/18 04:00 08/26/18 03:59 Spironolactone (Aldactone) 25 mg DAILY ORAL 08/18/18 09:00 09/13/18 08:59 08/18/18 08:33 Vitamin B Complex/ Vit C/Folic Acid (Nephrovite) 1 tab DAILY ORAL 08/18/18 09:00 09/01/18 12:59 08/18/18 08:33 Naya Cain MD Aug 18, 2018 10:55"
--- NOTE | 2018-08-18 10:57 | Nephrology Progress Note ---
Assessment/Plan Plan Successful Extubation after very aggressive HD x2 with UF of 4 L + 2.5 L. To KRZYSZTOF. Video Swallow pending. Next HD tomorrow. Improving Subjective Subjective In KRZYSZTOF. Extubated. No new c/o. Having swallow eval. Objective Objective Last 24 Hour Vital Signs Date Time Temp Pulse Resp B/P (MAP) Pulse Ox O2 Delivery O2 Flow Rate FiO2 08/18/18 08:33 132/61 08/18/18 08:00 74 08/18/18 08:00 97.2 74 18 132/61 (84) 100 08/18/18 08:00 Nasal Cannula 2.0 08/18/18 04:00 97.8 74 18 135/74 (94) 99 08/18/18 04:00 Nasal Cannula 2.0 08/18/18 03:43 74 08/18/18 02:45 97.2 76 20 132/73 (92) 100 08/18/18 02:00 75 20 124/63 (83) 99 08/18/18 01:00 77 20 122/64 (83) 99 08/18/18 00:00 98.0 76 18 123/63 (83) 100 08/18/18 00:00 Nasal Cannula 2.0 08/17/18 23:00 72 20 130/65 (86) 100 08/17/18 22:00 73 16 120/55 (76) 100 08/17/18 21:00 74 15 120/55 (76) 100 08/17/18 20:00 69 14 107/50 (69) 100 08/17/18 20:00 Nasal Cannula 2.0 08/17/18 20:00 71 08/17/18 19:00 98.0 77 14 108/54 (72) 100 08/17/18 18:00 78 16 132/68 (89) 100 08/17/18 17:00 77 20 119/68 (85) 100 08/17/18 16:00 84 08/17/18 16:00 97.5 82 18 122/72 (89) 100 08/17/18 16:00 Nasal Cannula 2.0 08/17/18 15:00 77 18 126/68 (87) 99 08/17/18 14:00 80 16 123/65 (84) 100 08/17/18 13:00 79 19 134/66 (88) 99 08/17/18 12:00 98.0 77 20 135/67 (89) 100 08/17/18 12:00 83 08/17/18 12:00 Nasal Cannula 2.0 08/17/18 11:00 77 20 133/70 (91) 100 Intake and Output 08/17/18 08/18/18 18:59 06:59 Intake Total 470 ml 460 ml Output Total 100 ml 2500 ml Balance 370 ml -2040 ml Free Water 110 ml 50 ml Tube Feeding 360 ml 360 ml Other 50 ml Stool Total 100 ml Hemodialysis UF 2500 ml Laboratory Tests 08/18/18 06:15: White Blood Count 3.3L, Red Blood Count 3.38L, Hemoglobin 9.3L, Hematocrit 31.5L , Mean Corpuscular Volume 93, Mean Corpuscular Hemoglobin 27.5, Mean Corpuscular Hemoglobin Concent 29.4L, Red Cell Distribution Width 18.0H, Platelet Count 135L, Mean Platelet Volume 6.6, Neutrophils (%) (Auto) , Lymphocytes (%) (Auto) , Monocytes (%) (Auto) , Eosinophils (%) (Auto) , Basophils (%) (Auto) , Differential Total Cells Counted 100, Neutrophils % ( Manual) 34L, Lymphocytes % (Manual) 44, Monocytes % (Manual) 12H, Eosinophils % (Manual) 7H, Basophils % (Manual) 2, Band Neutrophils 1, Platelet Estimate DecreasedL, Platelet Morphology Normal, Hypochromasia 1+, Anisocytosis 2+, Sodium Level 138, Potassium Level 4.1, Chloride Level 102, Carbon Dioxide Level 25, Anion Gap 11, Blood Urea Nitrogen 11, Creatinine 4.4H, Estimat Glomerular Filtration Rate 12.0, Glucose Level 51L, Calcium Level 8.5, Total Bilirubin 0.4 , Aspartate Amino Transf (AST/SGOT) 17, Alanine Aminotransferase (ALT/SGPT) 9L, Alkaline Phosphatase 137H, Total Protein 6.7, Albumin 1.9L, Globulin 4.8, Albumin/Globulin Ratio 0.4L Height (Feet): 5 Height (Inches): 7.00 Weight (Pounds): 197 Objective Extubated. NAD Blind CV RR Lungs CTA Abd SNT. BS + E No CCE Neuro:Alert, nonfocal. Brenda Fuller MD Aug 18, 2018 10:57
--- NOTE | 2018-08-18 11:00 | NUR ---
NURSE NOTES: Charge Nurse Sea stated that she was able to speak to [facility] regarding about Dialysis tomorrow and received confirmation from Meri.
--- NOTE | 2018-08-18 12:17 | Critical Care Progress Note ---
Assessment/Plan Assessment/Plan IMPRESSION: 1. Acute on chronic respiratory failure. 2. Acute hypercapnia, resolved with positive pressure ventilation 3. Hypoxemia. 4. Bilateral pleural effusions. and pulmonary edema 5. Fluid overload. 6. End-stage renal disease. 7. Severe protein-calorie malnutrition. 8. Anemia. 9. Thrombocytopenia. 10. Mild coagulopathy. 11. acute on chronic encephalopathy PLAN o2 nasal cannula nocturnal BIPAP monitor acid base for change Avoid all sedation will follow up for change and monitor clinically aspiration precautions keep negative as per renal and cards monitor imaging for change nutrition as able Elevate head medications/laboratory data/nursing notes/ICU care reviewed in detail note reviewed and edited care discussed with RN and RT ICU time spent 42 minutes Critical Care - Subjective Interval Events: transferred out of ICU ROS Limited/Unobtainable: Yes Condition: improving EKG Rhythm: Sinus Rhythm I&O: Intake and Output 08/17/18 08/18/18 18:59 06:59 Intake Total 470 ml 460 ml Output Total 100 ml 2500 ml Balance 370 ml -2040 ml Free Water 110 ml 50 ml Tube Feeding 360 ml 360 ml Other 50 ml Stool Total 100 ml Hemodialysis UF 2500 ml Critical Care - Objective ET-Tube: 7.0 ET Position: 22 Last 24 Hour Vital Signs Date Time Temp Pulse Resp B/P (MAP) Pulse Ox O2 Delivery O2 Flow Rate FiO2 08/18/18 08:33 132/61 08/18/18 08:00 74 08/18/18 08:00 97.2 74 18 132/61 (84) 100 08/18/18 08:00 Nasal Cannula 2.0 08/18/18 04:00 97.8 74 18 135/74 (94) 99 08/18/18 04:00 Nasal Cannula 2.0 08/18/18 03:43 74 08/18/18 02:45 97.2 76 20 132/73 (92) 100 08/18/18 02:00 75 20 124/63 (83) 99 08/18/18 01:00 77 20 122/64 (83) 99 08/18/18 00:00 98.0 76 18 123/63 (83) 100 08/18/18 00:00 Nasal Cannula 2.0 08/17/18 23:00 72 20 130/65 (86) 100 08/17/18 22:00 73 16 120/55 (76) 100 08/17/18 21:00 74 15 120/55 (76) 100 08/17/18 20:00 69 14 107/50 (69) 100 08/17/18 20:00 Nasal Cannula 2.0 08/17/18 20:00 71 08/17/18 19:00 98.0 77 14 108/54 (72) 100 08/17/18 18:00 78 16 132/68 (89) 100 08/17/18 17:00 77 20 119/68 (85) 100 08/17/18 16:00 84 08/17/18 16:00 97.5 82 18 122/72 (89) 100 08/17/18 16:00 Nasal Cannula 2.0 08/17/18 15:00 77 18 126/68 (87) 99 08/17/18 14:00 80 16 123/65 (84) 100 08/17/18 13:00 79 19 134/66 (88) 99 Labs: Labs Test 08/16/18 07:30 08/16/18 12:26 08/18/18 06:15 White Blood Count 5.6 K/UL (4.8-10.8) 3.3 K/UL (4.8-10.8) Red Blood Count 3.36 M/UL (4.20-5.40) 3.38 M/UL (4.20-5.40) Hemoglobin 9.2 G/DL (12.0-16.0) 9.3 G/DL (12.0-16.0) Hematocrit 30.6 % (37.0-47.0) 31.5 % (37.0-47.0) Mean Corpuscular Volume 91 FL (80-99) 93 FL (80-99) Mean Corpuscular Hemoglobin 27.4 PG (27.0-31.0) 27.5 PG (27.0-31.0) Mean Corpuscular Hemoglobin Concent 30.0 G/DL (32.0-36.0) 29.4 G/DL (32.0-36.0) Red Cell Distribution Width 17.1 % (11.6-14.8) 18.0 % (11.6-14.8) Platelet Count 119 K/UL (150-450) 135 K/UL (150-450) Mean Platelet Volume 8.4 FL (6.5-10.1) 6.6 FL (6.5-10.1) Neutrophils (%) (Auto) 66.0 % (45.0-75.0) % (45.0-75.0) Lymphocytes (%) (Auto) 19.1 % (20.0-45.0) % (20.0-45.0) Monocytes (%) (Auto) 9.9 % (1.0-10.0) % (1.0-10.0) Eosinophils (%) (Auto) 4.1 % (0.0-3.0) % (0.0-3.0) Basophils (%) (Auto) 0.9 % (0.0-2.0) % (0.0-2.0) Sodium Level 138 MMOL/L (136-145) 138 MMOL/L (136-145) Potassium Level 3.4 MMOL/L (3.5-5.1) 4.1 MMOL/L (3.5-5.1) Chloride Level 103 MMOL/L (98-107) 102 MMOL/L (98-107) Carbon Dioxide Level 28 MMOL/L (21-32) 25 MMOL/L (21-32) Anion Gap 7 mmol/L (5-15) 11 mmol/L (5-15) Blood Urea Nitrogen 14 mg/dL (7-18) 11 mg/dL (7-18) Creatinine 4.6 MG/DL (0.55-1.30) 4.4 MG/DL (0.55-1.30) Estimat Glomerular Filtration Rate 11.4 mL/min (>60) 12.0 mL/min (>60) Glucose Level 102 MG/DL (74-106) 51 MG/DL (74-106) Calcium Level 8.6 MG/DL (8.5-10.1) 8.5 MG/DL (8.5-10.1) Arterial Blood pH 7.400 (7.350-7.450) Arterial Blood Partial Pressure CO2 48.6 mmHg (35.0-45.0) Arterial Blood Partial Pressure O2 112.0 mmHg (75.0-100.0) Arterial Blood HCO3 29.4 mmol/L (22.0-26.0) Arterial Blood Oxygen Saturation 98.1 % (95-100) Arterial Blood Base Excess 4.0 (-2-2) Nicola Test Positive Differential Total Cells Counted 100 Neutrophils % (Manual) 34 % (45-75) Lymphocytes % (Manual) 44 % (20-45) Monocytes % (Manual) 12 % (1-10) Eosinophils % (Manual) 7 % (0-3) Basophils % (Manual) 2 % (0-2) Band Neutrophils 1 % (0-8) Platelet Estimate Decreased Platelet Morphology Normal Hypochromasia 1+ Anisocytosis 2+ Total Bilirubin 0.4 MG/DL (0.2-1.0) Aspartate Amino Transf (AST/SGOT) 17 U/L (15-37) Alanine Aminotransferase (ALT/SGPT) 9 U/L (12-78) Alkaline Phosphatase 137 U/L (46-116) Total Protein 6.7 G/DL (6.4-8.2) Albumin 1.9 G/DL (3.4-5.0) Globulin 4.8 g/dL Albumin/Globulin Ratio 0.4 (1.0-2.7) Objective: WDWN NAD on NC reduced breath sounds bilaterally without rhonchi or wheeze [id number] without MRG NABS nontender no HSM; feeding tube no CC edema nonfocal and altered without change, awake and blind skin exam noted appears comfortable reviewed and examined Accucheck: 98 Gustavo Rolon MD Aug 18, 2018 12:17
--- NOTE | 2018-08-18 12:57 | NUR ---
NURSE NOTES: Informed Dr. Rolon for latest ABG results. New order for ABG test in AM tomorrow. Will carry out.
--- NOTE | 2018-08-18 13:31 | NUR ---
ST NOTE: COMPLETED BEDSIDE SWALLOW EVAL/CONSULT. PLEASE SEE FULL EVAL FOR DETAILS. SPOKE TO DR. HAYES RE: PT'S CONDITIONS AND REQUESTED VIDEOSWALLOW STUDY AND REMOVED OGT. APPROVED. WILL FOLLOW UP. LANDON NATION NOTIFIED.
--- NOTE | 2018-08-18 13:39 | NUR ---
NURSE NOTES: Patient went down for a procedure accompanied by Doris. On 2L via NC and in stable condition. teletypesetter monitor is still in placed.
--- NOTE | 2018-08-18 14:40 | NUR ---
ST NOTE: BEDSIDE SWALLOW EVAL RECEIVED BEDSIDE SWALLOW EVAL ORDER CHART REVIEWED PRIOR THE EVAL COMPLETED SWALLOW CONSULT. PT IS A 72-YEAR-OLD FEMALE WHO WAS ADMITTED DUE TO ESRD. DYSPHAGIA RISK FACTORS: ACUTE ON CHRONIC RESP FAILURE AND REQUIRED INTUBATION FROM 08/02/18 TO 08/16/18, ESRD, HTN, COPD, DM, GERD, OBESITY. PER BEDSIDE SWALLOW ON 07/11/18: S/S OF AT LEAST A MILD ORAL PREP DYSPHAGIA WITH MILD INCREASE IN ROTARY CHEWING OF MASTICATED SOLIDS BUT NO ORAL RESIDUE NOR OVERT S/S OF ASPIRATION. APPARENT GROSSLY FUNCTIONAL SWALLOW WITH FAIR HYO-LARYNGEAL EXCURSION OF THIN LIQUIDS VIA CUP AND PUREED TSP. QUESTIONABLE IF SHE HAS A SILENT ASP RISK BUT NO NEURO DIAGNOSIS SEEN IN MEDICAL RECORD RECOMMENDATIONS: CONSIDER SLOW INITIATION OF A [facility] [place] SOFT GROUND DIET AND THIN LIQUIDS WITH POSTED ASPIRATION AND REFLUX PRECAUTIONS WITH ASSIST WITH MEALS. CURRENT STATUS: PT SEEN AT BEDSIDE IN AM. ALERT, COOPERATIVE, FOLLOWS DIRECTIONS, WITH NC(2L). PT IS LEGALLY BLINDED. QUESTIONABLE DEGREE OF OROPHARYNGEAL DYSPHAGIA. CURRENTLY, PT HAS OGT AND PER PT IS UNABLE TO SWALLOW. DUE TO PT INTUBATED FOR 2 WKS, VIDEOSWALLOW STUDY IS RECOMMENDED AT THIS TIME PRIOR PO INTAKE. MARIA TERESA INGRAM, DR. HAYES, RECEIVED TELEPHONE FROM FOR VIDEOSWALLOW STUDY. WILL FOLLOW UP.
--- NOTE | 2018-08-18 15:02 | NUR ---
ST NOTE: VIDEOSWALLOW STUDY COMPLETED VIDEOSWALLOW STUDY FULL REPORT WILL FOLLOW UNDER ST NOTE IN CARE ACTIVITY PT IS ALERT, COOPERATIVE, FOLLOWS DIRECTIONS, PT WITH NC(2L), PT WITH UPPER AND LOWER DENTURES. GIVEN PO TRIALS: THIN(TSPX2/CUP-SIP/STRAW-SEQUENTIAL), NECTAR THICK(TSP/MED CUP/STRAW-SEQUENTIAL), HONEY THICK(TSP), PUDDING(TSP), 1/2 SALTINE WITH 3CC PUDDING. H2O(CUP-SIP) IMPRESSION: PT PRESENTS WITH MILD TO MODERATE OROPHARYNGEAL DYSPHAGIA CHARACTERIZED BY MIN INCREASED ORAL TRANSIT TIME AND OROPHARYNGEAL TRANSIT TIME DUE TO POSSIBLE SENSORIMOTOR DEFICITS. FLASH TRACE PENETRATION WITH THIN(TSP), ENTER AIRWAY, ABOVE THE VOCAL FOLDS, EJECTED DUE TO DELAYED SWALLOW AND LATE CLOSURE OF LARYNGEAL VESTIBULE. MILD TONGUE BASE AND VALLECULAR RESIDUE RESIDUE WAS NOTED DUE TO REDUCED TONGUE BASE RETRACTION. MILD ESOPHAGEAL DYSPHAGIA CHARACTERIZED BY ESOPHAGEAL RETENTION WITH RETROGRADE FLOW THROUGH PHARYNGO-ESOPHAGEAL SEGMENT(PES). PROBABLE CRICOPHARYNGEAL BAR AT C6 TO C7, NO SIGNIFICANT FLOW OBSTRUCTION WAS NOTED. PLEASE REFER TO RADIOLOGIST REPORT FOR DETAILS. PT BENEFITS FROM EFFORTFUL SWALLOW, SWALLOW X 2 TIMES, LIQUID WASH AND ALLOW TIME. RECOMMENDATIONS: 1. FOR QUALITY OF LIFE, SLOWLY INITIATE RENAL MECH SOFT(CHOPPED) WITH THIN LIQUIDS 2. STRICT ASPIRATION/REFLUX PRECAUTIONS WITH 1TO1 ASSIST/FEEDING. 3. SWALLOW TX AND MANAGEMENT PER DR. FREDDY INGRAM OKAY TO PUT IN THE DIET ORDER IF PT PASS THE VIDEOSWALLOW STUDY. RN, LANDON NOTIFIED. POSTED ASPIRATION/REFLUX PRECAUTIONS SIGN.
[2018-08-18] MEDS ORDERED: Heparin Sod 1000 units/ml 10ml IV SCH (16:45)
--- NOTE | 2018-08-18 19:30 | NUR ---
HAND-OFF: Report given to CHAPIS Palafox. Patient stable.
--- NOTE | 2018-08-18 19:35 | NUR ---
NURSE NOTES: Received bedside report from CHAPIS Lanza. Pt is AOx4, able to make needs known. Pt is legally blind in both eyes. secured entrance monitor showing NSR. On 2L NC, sating well. RT patent, draining. Skin is clean and dry, dressings intact. Wound vac for L/heel on. LH 22g SL; asymptomatic. ALEJANDRA shunt; asymptomatic. ABG scheduled for tomorrow, current ABG OK per MD. HD scheduled for tomorrow with [facility], AM RN called and spoke with them. Patient was repositioned, side rails x3, call snyder within reach, bed alarm on, suction at bedside. Will continue to monitor and follow with plan of care.
[2018-08-18] MEDS ORDERED: Epoetin Alfa(ESRD on dialysis)10,000 unit/ml vial SUBQ SCH (21:00)
--- NOTE | 2018-08-18 21:40 | Cardiology Progress Note ---
Assessment/Plan Assessment/Plan Finally extubated, needs aggressive ultrafiltration for negative volume Subjective Subjective extubated, not in respiratory distress, two pillows denies dyspnea Objective Last 24 Hour Vital Signs Date Time Temp Pulse Resp B/P (MAP) Pulse Ox O2 Delivery O2 Flow Rate FiO2 08/18/18 20:00 64 08/18/18 20:00 97.0 74 20 114/59 (77) 98 08/18/18 20:00 Nasal Cannula 2.0 08/18/18 16:00 97.0 77 20 118/62 (80) 99 08/18/18 16:00 Nasal Cannula 2.0 08/18/18 15:30 79 08/18/18 12:53 97.0 77 20 133/70 (91) 100 08/18/18 12:00 Nasal Cannula 2.0 08/18/18 11:47 77 08/18/18 08:33 132/61 08/18/18 08:00 74 08/18/18 08:00 97.2 74 18 132/61 (84) 100 08/18/18 08:00 Nasal Cannula 2.0 08/18/18 04:00 97.8 74 18 135/74 (94) 99 08/18/18 04:00 Nasal Cannula 2.0 08/18/18 03:43 74 08/18/18 02:45 97.2 76 20 132/73 (92) 100 08/18/18 02:00 75 20 124/63 (83) 99 08/18/18 01:00 77 20 122/64 (83) 99 08/18/18 00:00 98.0 76 18 123/63 (83) 100 08/18/18 00:00 Nasal Cannula 2.0 08/17/18 23:00 72 20 130/65 (86) 100 08/17/18 22:00 73 16 120/55 (76) 100 General Appearance: no apparent distress EENT: other Neck: JVD Rhythm: NSR Cardiovascular: normal rate Respiratory/Chest: decreased breath sounds, crackles/rales - at bases Abdomen: soft Extremities: other Intake and Output 08/17/18 08/18/18 19:00 07:00 Intake Total 470 ml 460 ml Output Total 100 ml 2500 ml Balance 370 ml -2040 ml Free Water 110 ml 50 ml Tube Feeding 360 ml 360 ml Other 50 ml Stool Total 100 ml Hemodialysis UF 2500 ml Laboratory Tests Test 08/18/18 06:15 08/18/18 12:17 White Blood Count 3.3 K/UL (4.8-10.8) L Red Blood Count 3.38 M/UL (4.20-5.40) L Hemoglobin 9.3 G/DL (12.0-16.0) L Hematocrit 31.5 % (37.0-47.0) L Mean Corpuscular Volume 93 FL (80-99) Mean Corpuscular Hemoglobin 27.5 PG (27.0-31.0) Mean Corpuscular Hemoglobin Concent 29.4 G/DL (32.0-36.0) L Red Cell Distribution Width 18.0 % (11.6-14.8) H Platelet Count 135 K/UL (150-450) L Mean Platelet Volume 6.6 FL (6.5-10.1) Neutrophils (%) (Auto) % (45.0-75.0) Lymphocytes (%) (Auto) % (20.0-45.0) Monocytes (%) (Auto) % (1.0-10.0) Eosinophils (%) (Auto) % (0.0-3.0) Basophils (%) (Auto) % (0.0-2.0) Differential Total Cells Counted 100 Neutrophils % (Manual) 34 % (45-75) L Lymphocytes % (Manual) 44 % (20-45) Monocytes % (Manual) 12 % (1-10) H Eosinophils % (Manual) 7 % (0-3) H Basophils % (Manual) 2 % (0-2) Band Neutrophils 1 % (0-8) Platelet Estimate Decreased L Platelet Morphology Normal Hypochromasia 1+ Anisocytosis 2+ Sodium Level 138 MMOL/L (136-145) Potassium Level 4.1 MMOL/L (3.5-5.1) Chloride Level 102 MMOL/L (98-107) Carbon Dioxide Level 25 MMOL/L (21-32) Anion Gap 11 mmol/L (5-15) Blood Urea Nitrogen 11 mg/dL (7-18) Creatinine 4.4 MG/DL (0.55-1.30) H Estimat Glomerular Filtration Rate 12.0 mL/min (>60) Glucose Level 51 MG/DL (74-106) L Calcium Level 8.5 MG/DL (8.5-10.1) Total Bilirubin 0.4 MG/DL (0.2-1.0) Aspartate Amino Transf (AST/SGOT) 17 U/L (15-37) Alanine Aminotransferase (ALT/SGPT) 9 U/L (12-78) L Alkaline Phosphatase 137 U/L (46-116) H Total Protein 6.7 G/DL (6.4-8.2) Albumin 1.9 G/DL (3.4-5.0) L Globulin 4.8 g/dL Albumin/Globulin Ratio 0.4 (1.0-2.7) L Arterial Blood pH 7.340 (7.350-7.450) Arterial Blood Partial Pressure CO2 56.5 mmHg (35.0-45.0) *H Arterial Blood Partial Pressure O2 113.4 mmHg (75.0-100.0) H Arterial Blood HCO3 30.3 mmol/L (22.0-26.0) H Arterial Blood Oxygen Saturation 98.2 % (95-100) Arterial Blood Base Excess 3.7 (-2-2) H Nicola Test Positive Clarisse Daley MD Aug 18, 2018 21:40
[2018-08-19] VITALS: BP 115/72
[2018-08-19 04:00] VITALS: BP 120/65
[2018-08-19 05:51] LABS: BASOPHILS % (AUTO) 0.8 % (0.0-2.0); EOSINOPHILS % (AUTO) 3.5 % (0.0-3.0); HEMATOCRIT 32.1 % (37.0-47.0); HEMOGLOBIN 9.3 G/DL (12.0-16.0); LYMPHOCYTES % (AUTO) 19.6 % (20.0-45.0); MEAN CORPUSCULAR VOLUME 95 FL (80-99); MONOCYTES % (AUTO) 7.9 % (1.0-10.0); NEUTROPHILS % (AUTO) 68.2 % (45.0-75.0); PLATELET COUNT 118 K/UL (150-450); RED BLOOD COUNT 3.37 M/UL (4.20-5.40); RED CELL DISTRIBUTION WIDTH 17.7 % (11.6-14.8); WHITE BLOOD COUNT 5.4 K/UL (4.8-10.8)
[2018-08-19 06:10] LABS: ALBUMIN/GLOBULIN RATIO 0.4 (1.0-2.7); ALKALINE PHOSPHATASE 132 U/L (46-116); ANION GAP 5 mmol/L (5-15); ASPARTATE AMINO TRANSFERASE 9 U/L (15-37); BILIRUBIN,TOTAL 0.4 MG/DL (0.2-1.0); BLOOD UREA NITROGEN 14 mg/dL (7-18); CARBON DIOXIDE 30 MMOL/L (21-32); CHLORIDE 103 MMOL/L (98-107); CREATININE 4.2 MG/DL (0.55-1.30); POTASSIUM 3.9 MMOL/L (3.5-5.1); SODIUM 138 MMOL/L (136-145)
[2018-08-19 06:18] LABS: ALANINE AMINOTRANSFERASE 8 U/L (12-78)
--- NOTE | 2018-08-19 07:22 | NUR ---
HAND-OFF: Report given to CHAPIS Osei.
--- NOTE | 2018-08-19 07:23 | NUR ---
NURSE NOTES: RECEIVED PATIENT FROM Cindi ONEIL RN. PATIENT IS LYING IN BED, AWAKE, ALERT AND RESPONSIVE. HOOKED TO MOBILE APPLICATION DEVELOPMENT LEAD. ON 2L NC. NO SIGNS OF DISTRESS OF THE MOMENT. ON RENAL DIET. WITH RECTAL TUBE. NOTED SKIN ALTERATION. WOUND VAC NOTED. IV ON L HAND G22, SL. R AV SHUNT FOR HD. SCHEDULED FOR HEMODIALYSIS TODAY. CALL LIGHT WITHIN REACH. BED AT LOWEST POSITION. SIDE RAILS UP. WILL CONTINUE TO MONITOR.
[2018-08-19 08:00] VITALS: BP 142/71
[2018-08-19] MEDS: Pantoprazole Inj IVP SCH (08:35)
[2018-08-19] MEDS: Losartan 25mg tab ORAL SCH (08:36)
[2018-08-19] MEDS: Nephrovite tab (Rena-Vite) ORAL SCH (08:36)
[2018-08-19] MEDS: Spironolactone 25mg tab ORAL SCH (08:36)
[2018-08-19] MEDS: Aspirin Baby 81mg ORAL SCH (08:37)
[2018-08-19] MEDS: Miconazole 2% Cr 15gm TOPIC SCH ×2 (09:00→23:05)
--- NOTE | 2018-08-19 10:49 | Infectious Diseases Prog Note ---
"Assessment/Plan Assessment/Plan antibiotics ; none A 1. enterococcus | streptococcus UTI s/p rx 2. acenitobacter pneumonia s/p rx 3. diabetes mellitus 4. hypertension 5. renal failure on hemodialysis 6. history of left foot osteomyelitis 7. respiratory failure resolved P 1. continue off antibiotics Subjective ROS Limited/Unobtainable: Yes Allergies: Coded Allergies: BENAZEPRIL (Verified Allergy, Unknown, 06/12/18) CODEINE (Verified Allergy, Unknown, 06/12/18) INSULIN ASPART (Verified Allergy, Unknown, 06/12/18) INSULIN DETEMIR (Verified Allergy, Unknown, 06/12/18) OPIOIDS - MORPHINE ANALOGUES (Verified Allergy, Unknown, 06/12/18) Objective Vital Signs Last 24 Hour Vital Signs Date Time Temp Pulse Resp B/P (MAP) Pulse Ox O2 Delivery O2 Flow Rate FiO2 08/19/18 08:36 142/71 08/19/18 08:08 99 Room Air 08/19/18 08:08 Room Air 21 08/19/18 08:00 97.0 77 20 142/71 (94) 100 08/19/18 08:00 76 08/19/18 04:00 76 08/19/18 04:00 98.0 82 18 120/65 (83) 99 08/19/18 04:00 Nasal Cannula 2.0 08/19/18 00:00 77 08/19/18 00:00 97.2 75 20 115/72 (86) 100 08/19/18 00:00 Nasal Cannula 2.0 08/18/18 20:00 64 08/18/18 20:00 97.0 74 20 114/59 (77) 98 08/18/18 20:00 Nasal Cannula 2.0 08/18/18 16:00 97.0 77 20 118/62 (80) 99 08/18/18 16:00 Nasal Cannula 2.0 08/18/18 15:30 79 08/18/18 12:53 97.0 77 20 133/70 (91) 100 08/18/18 12:00 Nasal Cannula 2.0 08/18/18 11:47 77 Height (Feet): 5 Height (Inches): 7.00 Weight (Pounds): 193 Respiratory/Chest: lungs clear Cardiovascular: normal rate, regular rhythm, no gallop/murmur Abdomen: soft, non tender Extremities: no edema, other - right stump clean, left foot in dressings, VAC Laboratory Tests Test 08/18/18 12:17 08/19/18 04:00 08/19/18 05:30 Arterial Blood pH 7.340 (7.350-7.450) 7.320 (7.350-7.450) Arterial Blood Partial Pressure CO2 56.5 mmHg (35.0-45.0) *H 57.1 mmHg (35.0-45.0) *H Arterial Blood Partial Pressure O2 113.4 mmHg (75.0-100.0) H 66.2 mmHg (75.0-100.0) L Arterial Blood HCO3 30.3 mmol/L (22.0-26.0) H 29.0 mmol/L (22.0-26.0) H Arterial Blood Oxygen Saturation 98.2 % (95-100) 91.0 % (95-100) L Arterial Blood Base Excess 3.7 (-2-2) H 2.1 (-2-2) H Nicola Test Positive Positive White Blood Count 5.4 K/UL (4.8-10.8) # Red Blood Count 3.37 M/UL (4.20-5.40) L Hemoglobin 9.3 G/DL (12.0-16.0) L Hematocrit 32.1 % (37.0-47.0) L Mean Corpuscular Volume 95 FL (80-99) Mean Corpuscular Hemoglobin 27.5 PG (27.0-31.0) Mean Corpuscular Hemoglobin Concent 28.9 G/DL (32.0-36.0) L Red Cell Distribution Width 17.7 % (11.6-14.8) H Platelet Count 118 K/UL (150-450) L Mean Platelet Volume 7.8 FL (6.5-10.1) Neutrophils (%) (Auto) 68.2 % (45.0-75.0) Lymphocytes (%) (Auto) 19.6 % (20.0-45.0) L Monocytes (%) (Auto) 7.9 % (1.0-10.0) Eosinophils (%) (Auto) 3.5 % (0.0-3.0) H Basophils (%) (Auto) 0.8 % (0.0-2.0) Sodium Level 138 MMOL/L (136-145) Potassium Level 3.9 MMOL/L (3.5-5.1) Chloride Level 103 MMOL/L (98-107) Carbon Dioxide Level 30 MMOL/L (21-32) Anion Gap 5 mmol/L (5-15) Blood Urea Nitrogen 14 mg/dL (7-18) Creatinine 4.2 MG/DL (0.55-1.30) H Estimat Glomerular Filtration Rate 12.7 mL/min (>60) Glucose Level 129 MG/DL (74-106) H Calcium Level 9.0 MG/DL (8.5-10.1) Phosphorus Level 3.0 MG/DL (2.5-4.9) Total Bilirubin 0.4 MG/DL (0.2-1.0) Aspartate Amino Transf (AST/SGOT) 9 U/L (15-37) L Alanine Aminotransferase (ALT/SGPT) 8 U/L (12-78) L Alkaline Phosphatase 132 U/L (46-116) H Total Protein 7.3 G/DL (6.4-8.2) Albumin 2.0 G/DL (3.4-5.0) L Globulin 5.3 g/dL Albumin/Globulin Ratio 0.4 (1.0-2.7) L Current Medications Medications (Trade) Dose Ordered Sig/Andre Route PRN Reason Start Time Stop Time Status Last Admin Dose Admin Acetaminophen (Tylenol) 650 mg Q4H PRN ORAL Mild Pain/Temp > 100.5 08/18/18 14:46 09/17/18 14:45 08/18/18 14:53 Aspirin (ASA) 81 mg DAILY ORAL 08/18/18 09:00 09/01/18 12:29 08/19/18 08:37 Diphenoxylate HCl/ Atropine (Lomotil) 2.5 mg Q4H PRN ORAL Diarrhea 08/18/18 04:30 08/29/18 12:29 Epoetin Marcus (Epoetin Marcus(ESRD on dialysis)) 10,000 unit TUE-TUE-TUE SUBQ 08/18/18 21:00 09/15/18 20:59 08/18/18 21:19 Heparin Sodium (Porcine) (Heparin Sod 1000 units/ml 10ml) 2,000 unit ONCE IV 08/19/18 11:00 08/19/18 23:59 Losartan Potassium (Cozaar) 25 mg DAILY ORAL 08/18/18 09:00 09/09/18 08:59 08/19/18 08:36 Miconazole Nitrate (Monistat-Derm) 1 applic TWICE A DAY TOPIC 08/18/18 09:00 09/08/18 21:29 08/18/18 17:30 Pantoprazole (Protonix) 40 mg DAILY IVP 08/18/18 09:00 09/02/18 08:59 08/19/18 08:35 Polyethylene Glycol (Miralax) 17 gm DAILYPRN PRN ORAL Constipation 08/18/18 04:00 08/26/18 03:59 Sodium Chloride 1,000 ml @ 500 mls/hr Q2H PRN IVLG sbp<90 during hd 08/19/18 10:57 08/19/18 23:59 Spironolactone (Aldactone) 25 mg DAILY ORAL 08/18/18 09:00 09/13/18 08:59 08/19/18 08:36 Vitamin B Complex/ Vit C/Folic Acid (Nephrovite) 1 tab DAILY ORAL 08/18/18 09:00 09/01/18 12:59 08/19/18 08:36 Naya Cain MD Aug 19, 2018 10:49"
[2018-08-19] MEDS ORDERED: Heparin Sod 1000 units/ml 10ml IV SCH (11:00)
[2018-08-19 12:00] VITALS: BP 134/74
--- NOTE | 2018-08-19 13:20 | Nephrology Progress Note ---
Assessment/Plan Plan Successful Extubation after very aggressive HD x2 with UF of 4 L + 2.5 L. In KRZYSZTOF. Video Swallow done. [facility] Soft. HD Pending. OK for Tele Subjective Subjective In KRZYSZTOF. Extubated. No new c/o. Having swallow eval. Objective Objective Last 24 Hour Vital Signs Date Time Temp Pulse Resp B/P (MAP) Pulse Ox O2 Delivery O2 Flow Rate FiO2 08/19/18 12:00 96.8 75 20 134/74 (94) 96 08/19/18 12:00 Nasal Cannula 2.0 08/19/18 11:58 74 17 Room Air 21 08/19/18 08:36 142/71 08/19/18 08:08 99 Room Air 08/19/18 08:08 Room Air 21 08/19/18 08:00 97.0 77 20 142/71 (94) 100 08/19/18 08:00 76 08/19/18 08:00 Nasal Cannula 2.0 08/19/18 04:00 76 08/19/18 04:00 98.0 82 18 120/65 (83) 99 08/19/18 04:00 Nasal Cannula 2.0 08/19/18 00:00 77 08/19/18 00:00 97.2 75 20 115/72 (86) 100 08/19/18 00:00 Nasal Cannula 2.0 08/18/18 20:00 64 08/18/18 20:00 97.0 74 20 114/59 (77) 98 08/18/18 20:00 Nasal Cannula 2.0 08/18/18 16:00 97.0 77 20 118/62 (80) 99 08/18/18 16:00 Nasal Cannula 2.0 08/18/18 15:30 79 Intake and Output 08/18/18 08/19/18 18:59 06:59 Intake Total 410 ml 240 ml Output Total 700 ml Balance 410 ml -460 ml Intake Oral 240 ml 240 ml Tube Feeding 120 ml Other 50 ml Stool Total 700 ml Laboratory Tests 08/19/18 04:00: Arterial Blood pH 7.320L, Arterial Blood Partial Pressure CO2 57.1*H, Arterial Blood Partial Pressure O2 66.2L, Arterial Blood HCO3 29.0H, Arterial Blood Oxygen Saturation 91.0L, Arterial Blood Base Excess 2.1H, Nicola Test Positive 08/19/18 05:30: White Blood Count 5.4#, Red Blood Count 3.37L, Hemoglobin 9.3L, Hematocrit 32.1L , Mean Corpuscular Volume 95, Mean Corpuscular Hemoglobin 27.5, Mean Corpuscular Hemoglobin Concent 28.9L, Red Cell Distribution Width 17.7H, Platelet Count 118L, Mean Platelet Volume 7.8, Neutrophils (%) (Auto) 68.2, Lymphocytes (%) (Auto) 19.6L, Monocytes (%) (Auto) 7.9, Eosinophils (%) (Auto) 3.5H, Basophils (%) (Auto) 0.8, Sodium Level 138, Potassium Level 3.9, Chloride Level 103, Carbon Dioxide Level 30, Anion Gap 5, Blood Urea Nitrogen 14, Creatinine 4.2H, Estimat Glomerular Filtration Rate 12.7, Glucose Level 129H, Calcium Level 9.0, Phosphorus Level 3.0, Total Bilirubin 0.4, Aspartate Amino Transf (AST/SGOT) 9L, Alanine Aminotransferase (ALT/SGPT) 8L, Alkaline Phosphatase 132H, Total Protein 7.3, Albumin 2.0L, Globulin 5.3, Albumin/ Globulin Ratio 0.4L Height (Feet): 5 Height (Inches): 7.00 Weight (Pounds): 193 Objective Extubated. NAD Blind CV RR Lungs CTA Abd SNT. BS + E No CCE Neuro:Alert, nonfocal. Brenda Fuller MD Aug 19, 2018 13:20
--- NOTE | 2018-08-19 13:31 | Pulmonolgy Critical Care Note ---
Critical Care - Asmt/Plan Assessment/Plan: Pulmonary CCM Progress Note Assessment/Plan IMPRESSION: 1. Acute on chronic respiratory failure. 2. Acute hypercapnia, resolved with positive pressure ventilation 3. Hypoxemia. 4. Bilateral pleural effusions. and pulmonary edema 5. Fluid overload. 6. End-stage renal disease. 7. Severe protein-calorie malnutrition. 8. Anemia. 9. Thrombocytopenia. 10. Mild coagulopathy. 11. acute on chronic encephalopathy PLAN o2 nasal cannula nocturnal BIPAP monitor acid base for change Avoid all sedation will follow up for change and monitor clinically aspiration precautions keep negative as per renal and cards monitor imaging for change nutrition as able Elevate head medications/laboratory data/nursing notes/ICU care reviewed in detail note reviewed and edited care discussed with RN and RT Time spent 45 minutes Critical Care - Subjective Interval Events: transferred out of ICU ROS Limited/Unobtainable: Yes Condition: improving EKG Rhythm: Sinus Rhythm VSS noted Labs Test 08/16/18 07:30 08/16/18 12:26 08/18/18 06:15 White Blood Count 5.6 K/UL (4.8-10.8) 3.3 K/UL (4.8-10.8) Red Blood Count 3.36 M/UL (4.20-5.40) 3.38 M/UL (4.20-5.40) Hemoglobin 9.2 G/DL (12.0-16.0) 9.3 G/DL (12.0-16.0) Hematocrit 30.6 % (37.0-47.0) 31.5 % (37.0-47.0) Mean Corpuscular Volume 91 FL (80-99) 93 FL (80-99) Mean Corpuscular Hemoglobin 27.4 PG (27.0-31.0) 27.5 PG (27.0-31.0) Mean Corpuscular Hemoglobin Concent 30.0 G/DL (32.0-36.0) 29.4 G/DL (32.0-36.0) Red Cell Distribution Width 17.1 % (11.6-14.8) 18.0 % (11.6-14.8) Platelet Count 119 K/UL (150-450) 135 K/UL (150-450) Mean Platelet Volume 8.4 FL (6.5-10.1) 6.6 FL (6.5-10.1) Neutrophils (%) (Auto) 66.0 % (45.0-75.0) % (45.0-75.0) Lymphocytes (%) (Auto) 19.1 % (20.0-45.0) % (20.0-45.0) Monocytes (%) (Auto) 9.9 % (1.0-10.0) % (1.0-10.0) Eosinophils (%) (Auto) 4.1 % (0.0-3.0) % (0.0-3.0) Basophils (%) (Auto) 0.9 % (0.0-2.0) % (0.0-2.0) Sodium Level 138 MMOL/L (136-145) 138 MMOL/L (136-145) Potassium Level 3.4 MMOL/L (3.5-5.1) 4.1 MMOL/L (3.5-5.1) Chloride Level 103 MMOL/L (98-107) 102 MMOL/L (98-107) Carbon Dioxide Level 28 MMOL/L (21-32) 25 MMOL/L (21-32) Anion Gap 7 mmol/L (5-15) 11 mmol/L (5-15) Blood Urea Nitrogen 14 mg/dL (7-18) 11 mg/dL (7-18) Creatinine 4.6 MG/DL (0.55-1.30) 4.4 MG/DL (0.55-1.30) Estimat Glomerular Filtration Rate 11.4 mL/min (>60) 12.0 mL/min (>60) Glucose Level 102 MG/DL (74-106) 51 MG/DL (74-106) Calcium Level 8.6 MG/DL (8.5-10.1) 8.5 MG/DL (8.5-10.1) Arterial Blood pH 7.400 (7.350-7.450) Arterial Blood Partial Pressure CO2 48.6 mmHg (35.0-45.0) Arterial Blood Partial Pressure O2 112.0 mmHg (75.0-100.0) Arterial Blood HCO3 29.4 mmol/L (22.0-26.0) Arterial Blood Oxygen Saturation 98.1 % (95-100) Arterial Blood Base Excess 4.0 (-2-2) Nicola Test Positive Differential Total Cells Counted 100 Neutrophils % (Manual) 34 % (45-75) Lymphocytes % (Manual) 44 % (20-45) Monocytes % (Manual) 12 % (1-10) Eosinophils % (Manual) 7 % (0-3) Basophils % (Manual) 2 % (0-2) Band Neutrophils 1 % (0-8) Platelet Estimate Decreased Platelet Morphology Normal Hypochromasia 1+ Anisocytosis 2+ Total Bilirubin 0.4 MG/DL (0.2-1.0) Aspartate Amino Transf (AST/SGOT) 17 U/L (15-37) Alanine Aminotransferase (ALT/SGPT) 9 U/L (12-78) Alkaline Phosphatase 137 U/L (46-116) Total Protein 6.7 G/DL (6.4-8.2) Albumin 1.9 G/DL (3.4-5.0) Globulin 4.8 g/dL Albumin/Globulin Ratio 0.4 (1.0-2.7) Objective: WDWN NAD on NC reduced breath sounds bilaterally without rhonchi or wheeze [id number] without MRG NABS nontender no HSM; feeding tube no CC edema nonfocal and altered without change, awake and blind skin exam noted appears comfortable reviewed and examined PLAN likely needs trach with poor baseline likely has obesity hypoventilation 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 again -today monitor acid base for change sedation off- and provide if needed only will follow up for change and monitor clinically nutrition as able and aspiration precautions keep negative as per renal and cards monitor imaging for change nutrition medications/laboratory data/nursing notes/ICU care reviewed in detail note reviewed and edited care discussed with RN and RT ICU time spent 42 minutes Critical Care - Subjective Interval Events: events reviewed still on full support failed weaning multiple times ROS Limited/Unobtainable: Yes Condition: critical EKG Rhythm: Sinus Rhythm Residuals: minimal Tube Feeding Tolerated: yes Critical Care - Objective ET-Tube: 7.0 ET Position: 22 Vital Signs Noted Labs Test 08/13/18 10:26 08/13/18 15:40 White Blood Count 4.0 K/UL (4.8-10.8) Red Blood Count 3.46 M/UL (4.20-5.40) Hemoglobin 9.4 G/DL (12.0-16.0) Hematocrit 31.7 % (37.0-47.0) Mean Corpuscular Volume 92 FL (80-99) Mean Corpuscular Hemoglobin 27.1 PG (27.0-31.0) Mean Corpuscular Hemoglobin Concent 29.6 G/DL (32.0-36.0) Red Cell Distribution Width 17.1 % (11.6-14.8) Platelet Count 137 K/UL (150-450) Mean Platelet Volume 10.4 FL (6.5-10.1) Neutrophils (%) (Auto) 44.4 % (45.0-75.0) Lymphocytes (%) (Auto) 32.7 % (20.0-45.0) Monocytes (%) (Auto) 14.7 % (1.0-10.0) Eosinophils (%) (Auto) 7.1 % (0.0-3.0) Basophils (%) (Auto) 1.1 % (0.0-2.0) Sodium Level 137 MMOL/L (136-145) Potassium Level 3.7 MMOL/L (3.5-5.1) Chloride Level 102 MMOL/L (98-107) Carbon Dioxide Level 29 MMOL/L (21-32) Anion Gap 7 mmol/L (5-15) Blood Urea Nitrogen 12 mg/dL (7-18) Creatinine 4.3 MG/DL (0.55-1.30) Estimat Glomerular Filtration Rate 12.4 mL/min (>60) Glucose Level 61 MG/DL (74-106) Calcium Level 8.6 MG/DL (8.5-10.1) Arterial Blood pH 7.419 (7.350-7.450) Arterial Blood Partial Pressure CO2 44.9 mmHg (35.0-45.0) Arterial Blood Partial Pressure O2 73.9 mmHg (75.0-100.0) Arterial Blood HCO3 28.4 mmol/L (22.0-26.0) Arterial Blood Oxygen Saturation 94.1 % (95-100) Arterial Blood Base Excess 3.5 (-2-2) Nicola Test Positive Objective: WDWN NAD orally intubated reduced breath sounds bilaterally without rhonchi or wheeze [id number] without MRG NABS nontender no HSM; feeding tube no CC edema nonfocal and altered without change, reduced LOC skin exam reviewed and examined Critical Care - Objective Last 24 Hour Vital Signs Date Time Temp Pulse Resp B/P (MAP) Pulse Ox O2 Delivery O2 Flow Rate FiO2 08/19/18 12:00 96.8 75 20 134/74 (94) 96 08/19/18 12:00 Nasal Cannula 2.0 08/19/18 11:58 74 17 Room Air 21 08/19/18 08:36 142/71 08/19/18 08:08 99 Room Air 08/19/18 08:08 Room Air 21 08/19/18 08:00 97.0 77 20 142/71 (94) 100 08/19/18 08:00 76 08/19/18 08:00 Nasal Cannula 2.0 08/19/18 04:00 76 08/19/18 04:00 98.0 82 18 120/65 (83) 99 08/19/18 04:00 Nasal Cannula 2.0 08/19/18 00:00 77 08/19/18 00:00 97.2 75 20 115/72 (86) 100 08/19/18 00:00 Nasal Cannula 2.0 08/18/18 20:00 64 08/18/18 20:00 97.0 74 20 114/59 (77) 98 08/18/18 20:00 Nasal Cannula 2.0 08/18/18 16:00 97.0 77 20 118/62 (80) 99 08/18/18 16:00 Nasal Cannula 2.0 08/18/18 15:30 79 Accucheck: 109 Critical Care - Subjective ROS Limited/Unobtainable: No FI02: 21 Vent Support Breath Rate: 14 Vent Support Mode: CPAP Vent Tidal Volume: 500 Sputum Amount: None PEEP: 5.0 PIP: 37 Tube Feeding Amount: 30 I&O: Intake and Output 08/18/18 08/19/18 18:59 06:59 Intake Total 410 ml 240 ml Output Total 700 ml Balance 410 ml -460 ml Intake Oral 240 ml 240 ml Tube Feeding 120 ml Other 50 ml Stool Total 700 ml ET-Tube: 7.0 ET Position: 22 Joaquin Mackenzie MD Aug 19, 2018 13:31
[2018-08-19 16:00] VITALS: BP 125/72
[2018-08-19] MEDS ORDERED: Tubing IV Secondary IV ONE (17:08)
--- NOTE | 2018-08-19 19:27 | NUR ---
HAND-OFF: Report given to Cindi Mooney RN. Patient tolerating dialysis.
--- NOTE | 2018-08-19 19:28 | NUR ---
NURSE NOTES: Received bedside report from CHAPIS Osei. Pt is AOx4, able to make needs known. Currently receiving dialysis from [facility]. Vital signs stable Pt is legally blind in both eyes. site monitor showing NSR. On 2L NC, sating well. RT patent, draining. Skin is clean and dry, dressings intact. Wound vac for L/heel on. LH 22g SL; asymptomatic. ALEJANDRA shunt; asymptomatic. Patient was repositioned, side rails x3, call snyder within reach, bed alarm on, suction at bedside. Will continue to monitor and follow with plan of care.
[2018-08-19 20:00] VITALS: BP 123/62
--- NOTE | 2018-08-19 20:22 | Cardiology Progress Note ---
Assessment/Plan Assessment/Plan at present time, is mildly fluid overloaded Subjective Subjective The patient is resting on two pillows, she denies dyspnea, is mildly agitated Objective Last 24 Hour Vital Signs Date Time Temp Pulse Resp B/P (MAP) Pulse Ox O2 Delivery O2 Flow Rate FiO2 08/19/18 20:00 97.0 86 16 123/62 (82) 100 08/19/18 20:00 Nasal Cannula 2.0 08/19/18 16:00 84 08/19/18 16:00 Nasal Cannula 2.0 08/19/18 16:00 97.0 85 18 125/72 (89) 99 08/19/18 12:00 73 08/19/18 12:00 96.8 75 20 134/74 (94) 96 08/19/18 12:00 Nasal Cannula 2.0 08/19/18 11:58 74 17 Room Air 21 08/19/18 08:36 142/71 08/19/18 08:08 99 Room Air 08/19/18 08:08 Room Air 21 08/19/18 08:00 97.0 77 20 142/71 (94) 100 08/19/18 08:00 76 08/19/18 08:00 Nasal Cannula 2.0 08/19/18 04:00 76 08/19/18 04:00 98.0 82 18 120/65 (83) 99 08/19/18 04:00 Nasal Cannula 2.0 08/19/18 00:00 77 08/19/18 00:00 97.2 75 20 115/72 (86) 100 08/19/18 00:00 Nasal Cannula 2.0 General Appearance: mild distress EENT: other Neck: JVD Rhythm: NSR Cardiovascular: normal rate, systolic murmur Respiratory/Chest: rhonchi - bilaterally Abdomen: distended Extremities: other 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 Intake and Output 08/18/18 08/19/18 19:00 07:00 Intake Total 380 ml 240 ml Output Total 300 ml 400 ml Balance 80 ml -160 ml Intake Oral 240 ml 240 ml Tube Feeding 90 ml Other 50 ml Stool Total 300 ml 400 ml Laboratory Tests Test 08/19/18 04:00 08/19/18 05:30 Arterial Blood pH 7.320 (7.350-7.450) Arterial Blood Partial Pressure CO2 57.1 mmHg (35.0-45.0) *H Arterial Blood Partial Pressure O2 66.2 mmHg (75.0-100.0) L Arterial Blood HCO3 29.0 mmol/L (22.0-26.0) H Arterial Blood Oxygen Saturation 91.0 % (95-100) L Arterial Blood Base Excess 2.1 (-2-2) H Nicola Test Positive White Blood Count 5.4 K/UL (4.8-10.8) # Red Blood Count 3.37 M/UL (4.20-5.40) L Hemoglobin 9.3 G/DL (12.0-16.0) L Hematocrit 32.1 % (37.0-47.0) L Mean Corpuscular Volume 95 FL (80-99) Mean Corpuscular Hemoglobin 27.5 PG (27.0-31.0) Mean Corpuscular Hemoglobin Concent 28.9 G/DL (32.0-36.0) L Red Cell Distribution Width 17.7 % (11.6-14.8) H Platelet Count 118 K/UL (150-450) L Mean Platelet Volume 7.8 FL (6.5-10.1) Neutrophils (%) (Auto) 68.2 % (45.0-75.0) Lymphocytes (%) (Auto) 19.6 % (20.0-45.0) L Monocytes (%) (Auto) 7.9 % (1.0-10.0) Eosinophils (%) (Auto) 3.5 % (0.0-3.0) H Basophils (%) (Auto) 0.8 % (0.0-2.0) Sodium Level 138 MMOL/L (136-145) Potassium Level 3.9 MMOL/L (3.5-5.1) Chloride Level 103 MMOL/L (98-107) Carbon Dioxide Level 30 MMOL/L (21-32) Anion Gap 5 mmol/L (5-15) Blood Urea Nitrogen 14 mg/dL (7-18) Creatinine 4.2 MG/DL (0.55-1.30) H Estimat Glomerular Filtration Rate 12.7 mL/min (>60) Glucose Level 129 MG/DL (74-106) H Calcium Level 9.0 MG/DL (8.5-10.1) Phosphorus Level 3.0 MG/DL (2.5-4.9) Total Bilirubin 0.4 MG/DL (0.2-1.0) Aspartate Amino Transf (AST/SGOT) 9 U/L (15-37) L Alanine Aminotransferase (ALT/SGPT) 8 U/L (12-78) L Alkaline Phosphatase 132 U/L (46-116) H Total Protein 7.3 G/DL (6.4-8.2) Albumin 2.0 G/DL (3.4-5.0) L Globulin 5.3 g/dL Albumin/Globulin Ratio 0.4 (1.0-2.7) L Clarisse Daley MD Aug 19, 2018 20:22
--- NOTE | 2018-08-19 23:07 | NUR ---
NURSE NOTES: Miconazole delivered late by pharmacy. Administer with PM bath.
[2018-08-20] VITALS: BP 117/60
[2018-08-20 04:00] VITALS: BP 118/65
--- NOTE | 2018-08-20 07:11 | NUR ---
HAND-OFF: Report given to CHAPIS Osei. VSS, no s/s of distress.
--- NOTE | 2018-08-20 07:12 | NUR ---
NURSE NOTES: RECEIVED PATIENT FROM Cindi ONEIL RN. PATIENT IS LYING IN BED, AWAKE, ALERT AND RESPONSIVE HAVING HER BREAKFAST. 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 ON 2L NC. NO SIGNS OF DISTRESS OF THE MOMENT. ON RENAL DIET. WITH RECTAL TUBE. NOTED SKIN ALTERATION. WOUND VAC NOTED. IV ON L HAND G22, SL. R AV SHUNT FOR HD. SCHEDULED FOR HEMODIALYSIS TODAY. CALL LIGHT WITHIN REACH. BED AT LOWEST POSITION. SIDE RAILS UP. WILL CONTINUE TO MONITOR.
[2018-08-20 08:00] VITALS: BP 123/68
[2018-08-20] MEDS: Losartan 25mg tab ORAL SCH (09:00)
[2018-08-20] MEDS: Spironolactone 25mg tab ORAL SCH (09:12)
[2018-08-20] MEDS: Nephrovite tab (Rena-Vite) ORAL SCH (09:12)
[2018-08-20] MEDS: Miconazole 2% Cr 15gm TOPIC SCH ×2 (09:12→17:54)
[2018-08-20] MEDS: Aspirin Baby 81mg ORAL SCH (09:13)
--- NOTE | 2018-08-20 10:08 | Infectious Diseases Prog Note ---
"Assessment/Plan Assessment/Plan A: 1. enterococcus | streptococcus UTI treated 2. pneumonia treated 3. diabetes mellitus 4. hypertension 5. renal failure on hemodialysis 6. history of left foot osteomyelitis treated &. Hypercapnic respiratory failure 9. Pleural effusion, more in R side 10. Acinetobacter pneumonia treated P 1. Observe off antibiotic Subjective ROS Limited/Unobtainable: Yes Allergies: Coded Allergies: BENAZEPRIL (Verified Allergy, Unknown, 06/12/18) CODEINE (Verified Allergy, Unknown, 06/12/18) INSULIN ASPART (Verified Allergy, Unknown, 06/12/18) INSULIN DETEMIR (Verified Allergy, Unknown, 06/12/18) OPIOIDS - MORPHINE ANALOGUES (Verified Allergy, Unknown, 06/12/18) Objective Vital Signs Last 24 Hour Vital Signs Date Time Temp Pulse Resp B/P (MAP) Pulse Ox O2 Delivery O2 Flow Rate FiO2 08/20/18 08:00 97.3 81 20 123/68 (86) 98 08/20/18 04:00 97.0 69 20 118/65 (82) 95 08/20/18 04:00 73 08/20/18 04:00 Nasal Cannula 2.0 08/20/18 00:00 83 08/20/18 00:00 97.8 82 20 117/60 (79) 95 08/20/18 00:00 Nasal Cannula 2.0 08/19/18 20:00 97.0 86 16 123/62 (82) 100 08/19/18 20:00 87 08/19/18 20:00 Nasal Cannula 2.0 08/19/18 16:00 84 08/19/18 16:00 Nasal Cannula 2.0 08/19/18 16:00 97.0 85 18 125/72 (89) 99 08/19/18 12:00 73 08/19/18 12:00 96.8 75 20 134/74 (94) 96 08/19/18 12:00 Nasal Cannula 2.0 08/19/18 11:58 74 17 Room Air 21 Height (Feet): 5 Height (Inches): 7.00 Weight (Pounds): 195 General Appearance: no acute distress HEENT: mucous membranes moist Respiratory/Chest: lungs clear Cardiovascular: normal rate Abdomen: soft, non tender Extremities: no edema Neurologic/Psychiatric: other - sleeping Current Medications Medications (Trade) Dose Ordered Sig/Andre Route PRN Reason Start Time Stop Time Status Last Admin Dose Admin Acetaminophen (Tylenol) 650 mg Q4H PRN ORAL Mild Pain/Temp > 100.5 08/18/18 14:46 09/17/18 14:45 08/19/18 23:06 Aspirin (ASA) 81 mg DAILY ORAL 08/18/18 09:00 09/01/18 12:29 08/20/18 09:13 Diphenhydramine HCl (Benadryl) 25 mg Q6H PRN ORAL Itching 08/19/18 15:45 09/18/18 15:44 Diphenoxylate HCl/ Atropine (Lomotil) 2.5 mg Q4H PRN ORAL Diarrhea 08/18/18 04:30 08/29/18 12:29 Epoetin Marcus (Epoetin Marcus(ESRD on dialysis)) 10,000 unit SUBQ 08/18/18 21:00 09/15/18 20:59 08/18/18 21:19 Losartan Potassium (Cozaar) 25 mg DAILY ORAL 08/18/18 09:00 09/09/18 08:59 08/19/18 08:36 Miconazole Nitrate (Monistat-Derm) 1 applic TWICE A DAY TOPIC 08/18/18 09:00 09/08/18 21:29 08/20/18 09:12 Pantoprazole (Protonix) 40 mg DAILY ORAL 08/20/18 09:00 09/19/18 08:59 08/20/18 09:13 Polyethylene Glycol (Miralax) 17 gm DAILYPRN PRN ORAL Constipation 08/18/18 04:00 08/26/18 03:59 Spironolactone (Aldactone) 25 mg DAILY ORAL 08/18/18 09:00 09/13/18 08:59 08/20/18 09:12 Vitamin B Complex/ Vit C/Folic Acid (Nephrovite) 1 tab DAILY ORAL 08/18/18 09:00 09/01/18 12:59 08/20/18 09:12 Joe Melgar MD Aug 20, 2018 10:08"
--- NOTE | 2018-08-20 10:46 | Pulmonolgy Critical Care Note ---
Critical Care - Asmt/Plan Assessment/Plan: Pulmonary CCM Progress Note Assessment/Plan IMPRESSION: 1. Acute on chronic respiratory failure. 2. Acute hypercapnia, resolved with positive pressure ventilation 3. Hypoxemia. 4. Bilateral pleural effusions. and pulmonary edema 5. Fluid overload. 6. End-stage renal disease. 7. Severe protein-calorie malnutrition. 8. Anemia. 9. Thrombocytopenia. 10. Mild coagulopathy. 11. acute on chronic encephalopathy PLAN o2 nasal cannula nocturnal BIPAP monitor acid base for change Avoid all sedation will follow up for change and monitor clinically aspiration precautions keep negative as per renal and cards monitor imaging for change nutrition as able Elevate head medications/laboratory data/nursing notes/ICU care reviewed in detail note reviewed and edited care discussed with RN and RT Time spent 45 minutes Critical Care - Subjective Interval Events: transferred out of ICU ROS Limited/Unobtainable: Yes Condition: improving EKG Rhythm: Sinus Rhythm VSS noted Labs Test 08/16/18 07:30 08/16/18 12:26 08/18/18 06:15 White Blood Count 5.6 K/UL (4.8-10.8) 3.3 K/UL (4.8-10.8) Red Blood Count 3.36 M/UL (4.20-5.40) 3.38 M/UL (4.20-5.40) Hemoglobin 9.2 G/DL (12.0-16.0) 9.3 G/DL (12.0-16.0) Hematocrit 30.6 % (37.0-47.0) 31.5 % (37.0-47.0) Mean Corpuscular Volume 91 FL (80-99) 93 FL (80-99) Mean Corpuscular Hemoglobin 27.4 PG (27.0-31.0) 27.5 PG (27.0-31.0) Mean Corpuscular Hemoglobin Concent 30.0 G/DL (32.0-36.0) 29.4 G/DL (32.0-36.0) Red Cell Distribution Width 17.1 % (11.6-14.8) 18.0 % (11.6-14.8) Platelet Count 119 K/UL (150-450) 135 K/UL (150-450) Mean Platelet Volume 8.4 FL (6.5-10.1) 6.6 FL (6.5-10.1) Neutrophils (%) (Auto) 66.0 % (45.0-75.0) % (45.0-75.0) Lymphocytes (%) (Auto) 19.1 % (20.0-45.0) % (20.0-45.0) Monocytes (%) (Auto) 9.9 % (1.0-10.0) % (1.0-10.0) Eosinophils (%) (Auto) 4.1 % (0.0-3.0) % (0.0-3.0) Basophils (%) (Auto) 0.9 % (0.0-2.0) % (0.0-2.0) Sodium Level 138 MMOL/L (136-145) 138 MMOL/L (136-145) Potassium Level 3.4 MMOL/L (3.5-5.1) 4.1 MMOL/L (3.5-5.1) Chloride Level 103 MMOL/L (98-107) 102 MMOL/L (98-107) Carbon Dioxide Level 28 MMOL/L (21-32) 25 MMOL/L (21-32) Anion Gap 7 mmol/L (5-15) 11 mmol/L (5-15) Blood Urea Nitrogen 14 mg/dL (7-18) 11 mg/dL (7-18) Creatinine 4.6 MG/DL (0.55-1.30) 4.4 MG/DL (0.55-1.30) Estimat Glomerular Filtration Rate 11.4 mL/min (>60) 12.0 mL/min (>60) Glucose Level 102 MG/DL (74-106) 51 MG/DL (74-106) Calcium Level 8.6 MG/DL (8.5-10.1) 8.5 MG/DL (8.5-10.1) Arterial Blood pH 7.400 (7.350-7.450) Arterial Blood Partial Pressure CO2 48.6 mmHg (35.0-45.0) Arterial Blood Partial Pressure O2 112.0 mmHg (75.0-100.0) Arterial Blood HCO3 29.4 mmol/L (22.0-26.0) Arterial Blood Oxygen Saturation 98.1 % (95-100) Arterial Blood Base Excess 4.0 (-2-2) Nicola Test Positive Differential Total Cells Counted 100 Neutrophils % (Manual) 34 % (45-75) Lymphocytes % (Manual) 44 % (20-45) Monocytes % (Manual) 12 % (1-10) Eosinophils % (Manual) 7 % (0-3) Basophils % (Manual) 2 % (0-2) Band Neutrophils 1 % (0-8) Platelet Estimate Decreased Platelet Morphology Normal Hypochromasia 1+ Anisocytosis 2+ Total Bilirubin 0.4 MG/DL (0.2-1.0) Aspartate Amino Transf (AST/SGOT) 17 U/L (15-37) Alanine Aminotransferase (ALT/SGPT) 9 U/L (12-78) Alkaline Phosphatase 137 U/L (46-116) Total Protein 6.7 G/DL (6.4-8.2) Albumin 1.9 G/DL (3.4-5.0) Globulin 4.8 g/dL Albumin/Globulin Ratio 0.4 (1.0-2.7) Objective: WDWN NAD on NC reduced breath sounds bilaterally without rhonchi or wheeze [id number] without MRG NABS nontender no HSM; feeding tube no CC edema nonfocal and altered without change, awake and blind skin exam noted appears comfortable reviewed and examined PLAN likely needs trach with poor baseline likely has obesity hypoventilation 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 will try to wean again -today monitor acid base for change sedation off- and provide if needed only will follow up for change and monitor clinically nutrition as able and aspiration precautions keep negative as per renal and cards monitor imaging for change nutrition medications/laboratory data/nursing notes/ICU care reviewed in detail note reviewed and edited care discussed with RN and RT ICU time spent 42 minutes Critical Care - Subjective Interval Events: events reviewed still on full support failed weaning multiple times ROS Limited/Unobtainable: Yes Condition: critical EKG Rhythm: Sinus Rhythm Residuals: minimal Tube Feeding Tolerated: yes Critical Care - Objective ET-Tube: 7.0 ET Position: 22 Vital Signs Noted Labs Test 08/13/18 10:26 08/13/18 15:40 White Blood Count 4.0 K/UL (4.8-10.8) Red Blood Count 3.46 M/UL (4.20-5.40) Hemoglobin 9.4 G/DL (12.0-16.0) Hematocrit 31.7 % (37.0-47.0) Mean Corpuscular Volume 92 FL (80-99) Mean Corpuscular Hemoglobin 27.1 PG (27.0-31.0) Mean Corpuscular Hemoglobin Concent 29.6 G/DL (32.0-36.0) Red Cell Distribution Width 17.1 % (11.6-14.8) Platelet Count 137 K/UL (150-450) Mean Platelet Volume 10.4 FL (6.5-10.1) Neutrophils (%) (Auto) 44.4 % (45.0-75.0) Lymphocytes (%) (Auto) 32.7 % (20.0-45.0) Monocytes (%) (Auto) 14.7 % (1.0-10.0) Eosinophils (%) (Auto) 7.1 % (0.0-3.0) Basophils (%) (Auto) 1.1 % (0.0-2.0) Sodium Level 137 MMOL/L (136-145) Potassium Level 3.7 MMOL/L (3.5-5.1) Chloride Level 102 MMOL/L (98-107) Carbon Dioxide Level 29 MMOL/L (21-32) Anion Gap 7 mmol/L (5-15) Blood Urea Nitrogen 12 mg/dL (7-18) Creatinine 4.3 MG/DL (0.55-1.30) Estimat Glomerular Filtration Rate 12.4 mL/min (>60) Glucose Level 61 MG/DL (74-106) Calcium Level 8.6 MG/DL (8.5-10.1) Arterial Blood pH 7.419 (7.350-7.450) Arterial Blood Partial Pressure CO2 44.9 mmHg (35.0-45.0) Arterial Blood Partial Pressure O2 73.9 mmHg (75.0-100.0) Arterial Blood HCO3 28.4 mmol/L (22.0-26.0) Arterial Blood Oxygen Saturation 94.1 % (95-100) Arterial Blood Base Excess 3.5 (-2-2) Nicola Test Positive Objective: WDWN NAD orally intubated reduced breath sounds bilaterally without rhonchi or wheeze [id number] without MRG NABS nontender no HSM; feeding tube no CC edema nonfocal and altered without change, reduced LOC skin exam reviewed and examined Critical Care - Objective Last 24 Hour Vital Signs Date Time Temp Pulse Resp B/P (MAP) Pulse Ox O2 Delivery O2 Flow Rate FiO2 08/20/18 09:00 123/68 08/20/18 08:00 97.3 81 20 123/68 (86) 98 08/20/18 08:00 76 08/20/18 04:00 97.0 69 20 118/65 (82) 95 08/20/18 04:00 73 08/20/18 04:00 Nasal Cannula 2.0 08/20/18 00:00 83 08/20/18 00:00 97.8 82 20 117/60 (79) 95 08/20/18 00:00 Nasal Cannula 2.0 08/19/18 20:00 97.0 86 16 123/62 (82) 100 08/19/18 20:00 87 08/19/18 20:00 Nasal Cannula 2.0 08/19/18 16:00 84 08/19/18 16:00 Nasal Cannula 2.0 08/19/18 16:00 97.0 85 18 125/72 (89) 99 08/19/18 12:00 73 08/19/18 12:00 96.8 75 20 134/74 (94) 96 08/19/18 12:00 Nasal Cannula 2.0 08/19/18 11:58 74 17 Room Air 21 Accucheck: 99 Critical Care - Subjective ROS Limited/Unobtainable: No FI02: 21 Vent Support Breath Rate: 14 Vent Support Mode: CPAP Vent Tidal Volume: 500 Sputum Amount: None PEEP: 5.0 PIP: 37 Tube Feeding Amount: 30 I&O: Intake and Output 08/19/18 08/20/18 19:00 07:00 Intake Total 350 ml 250 ml Output Total 300 ml 50 ml Balance 50 ml 200 ml Intake Oral 350 ml 250 ml Stool Total 300 ml 50 ml # Voids 1 ET-Tube: 7.0 ET Position: 22 Joaquin Mackenzie MD Aug 20, 2018 10:46
[2018-08-20 12:00] VITALS: BP 116/66
--- NOTE | 2018-08-20 12:03 | Nephrology Progress Note ---
Assessment/Plan Plan Successful Extubation after very aggressive HD aggressive UF of 4 L + 2.5 L. In KRZYSZTOF. [facility]. OK for Tele Subjective Subjective In KRZYSZTOF. Extubated. No new c/o. Having swallow eval. Passed -see rec. Objective Objective Last 24 Hour Vital Signs Date Time Temp Pulse Resp B/P (MAP) Pulse Ox O2 Delivery O2 Flow Rate FiO2 08/20/18 09:00 123/68 08/20/18 08:00 97.3 81 20 123/68 (86) 98 08/20/18 08:00 Nasal Cannula 2.0 08/20/18 08:00 76 08/20/18 04:00 97.0 69 20 118/65 (82) 95 08/20/18 04:00 73 08/20/18 04:00 Nasal Cannula 2.0 08/20/18 00:00 83 08/20/18 00:00 97.8 82 20 117/60 (79) 95 08/20/18 00:00 Nasal Cannula 2.0 08/19/18 20:00 97.0 86 16 123/62 (82) 100 08/19/18 20:00 87 08/19/18 20:00 Nasal Cannula 2.0 08/19/18 16:00 84 08/19/18 16:00 Nasal Cannula 2.0 08/19/18 16:00 97.0 85 18 125/72 (89) 99 08/19/18 12:00 73 08/19/18 12:00 96.8 75 20 134/74 (94) 96 08/19/18 12:00 Nasal Cannula 2.0 Intake and Output 08/19/18 08/20/18 19:00 07:00 Intake Total 350 ml 250 ml Output Total 300 ml 50 ml Balance 50 ml 200 ml Intake Oral 350 ml 250 ml Stool Total 300 ml 50 ml # Voids 1 Height (Feet): 5 Height (Inches): 7.00 Weight (Pounds): 195 Objective Extubated. NAD Blind CV RR Lungs CTA Abd SNT. BS + E No CCE Neuro:Alert, nonfocal. Brenda Fuller MD Aug 20, 2018 12:03
[2018-08-20] MEDS ORDERED: Heparin Sod 1000 units/ml 10ml IV PRN (12:30)
[2018-08-20 16:00] VITALS: BP 136/67
--- NOTE | 2018-08-20 17:30 | NUR ---
NURSE NOTES: PATIENT KEPT CLEAN AND DRY. NOTED LOOSE BM. STILL WITH RECTAL TUBE. WILL CONTINUE TO MONITOR.
--- NOTE | 2018-08-20 17:43 | Cardiology Progress Note ---
Assessment/Plan Assessment/Plan at present time, is stable Subjective Subjective The patient is resting alert, asking multiple questions about her health Objective Last 24 Hour Vital Signs Date Time Temp Pulse Resp B/P (MAP) Pulse Ox O2 Delivery O2 Flow Rate FiO2 08/20/18 16:00 84 08/20/18 12:00 Nasal Cannula 2.0 08/20/18 12:00 77 08/20/18 12:00 97.3 84 20 116/66 (83) 96 08/20/18 09:00 123/68 08/20/18 08:00 97.3 81 20 123/68 (86) 98 08/20/18 08:00 Nasal Cannula 2.0 08/20/18 08:00 76 08/20/18 04:00 97.0 69 20 118/65 (82) 95 08/20/18 04:00 73 08/20/18 04:00 Nasal Cannula 2.0 08/20/18 00:00 83 08/20/18 00:00 97.8 82 20 117/60 (79) 95 08/20/18 00:00 Nasal Cannula 2.0 08/19/18 20:00 97.0 86 16 123/62 (82) 100 08/19/18 20:00 87 08/19/18 20:00 Nasal Cannula 2.0 General Appearance: alert EENT: other Neck: JVD Rhythm: NSR Cardiovascular: normal rate Respiratory/Chest: crackles/rales Abdomen: non tender, distended Extremities: other Intake and Output 08/19/18 08/20/18 18:59 06:59 Intake Total 350 ml 250 ml Output Total 300 ml 50 ml Balance 50 ml 200 ml Intake Oral 350 ml 250 ml Stool Total 300 ml 50 ml # Voids 1 Clarisse Daley MD Aug 20, 2018 17:43
--- NOTE | 2018-08-20 19:15 | NUR ---
HAND-OFF: Report given to Cindi Mooney RN.
--- NOTE | 2018-08-20 19:16 | NUR ---
NURSE NOTES: Received bedside report from CHAPIS Osei. Pt is AOx4, able to make needs known. VSS; Pt is legally blind in both eyes. media monitor showing NSR. On 2L NC; sating well. Rectal tube patent, draining. Skin is clean and dry, dressings intact. Wound vac for L/heel on @ 125. LH 22g SL; asymptomatic. ALEJANDRA shunt; asymptomatic. Patient was repositioned, side rails x3, call snyder within reach, bed alarm on, suction at bedside. Will continue to monitor and follow with plan of care. Order to transfer to [facility], awaiting bed availability, will carry out.
[2018-08-20 20:00] VITALS: BP 130/73
[2018-08-21] VITALS: BP 118/65
[2018-08-21 04:00] VITALS: BP 101/67
[2018-08-21 04:07] LABS: BASOPHILS % (AUTO) 0.9 % (0.0-2.0); EOSINOPHILS % (AUTO) 2.5 % (0.0-3.0); HEMATOCRIT 30.3 % (37.0-47.0); LYMPHOCYTES % (AUTO) 23.4 % (20.0-45.0); MEAN CORPUSCULAR VOLUME 92 FL (80-99); MONOCYTES % (AUTO) 7.8 % (1.0-10.0); NEUTROPHILS % (AUTO) 65.5 % (45.0-75.0); PLATELET COUNT 111 K/UL (150-450); RED BLOOD COUNT 3.28 M/UL (4.20-5.40); RED CELL DISTRIBUTION WIDTH 17.8 % (11.6-14.8); WHITE BLOOD COUNT 5.7 K/UL (4.8-10.8)
[2018-08-21 04:49] LABS: ALANINE AMINOTRANSFERASE 6 U/L (12-78); ALBUMIN 1.9 G/DL (3.4-5.0); ALBUMIN/GLOBULIN RATIO 0.4 (1.0-2.7); ALKALINE PHOSPHATASE 118 U/L (46-116); ANION GAP 4 mmol/L (5-15); ASPARTATE AMINO TRANSFERASE 10 U/L (15-37); BILIRUBIN,TOTAL 0.3 MG/DL (0.2-1.0); BLOOD UREA NITROGEN 17 mg/dL (7-18); CALCIUM 8.7 MG/DL (8.5-10.1); CARBON DIOXIDE 31 MMOL/L (21-32); CHLORIDE 103 MMOL/L (98-107); CREATININE 4.2 MG/DL (0.55-1.30); PHOSPHORUS 2.8 MG/DL (2.5-4.9); SODIUM 138 MMOL/L (136-145)
--- NOTE | 2018-08-21 07:08 | NUR ---
HAND-OFF: Report given to CHAPIS Osei.
--- NOTE | 2018-08-21 07:09 | NUR ---
NURSE NOTES: RECEIVED PATIENT FROM Cindi ONEIL RN. PATIENT IS LYING IN BED, AWAKE, ALERT AND RESPONSIVE. 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 ON 2L NC. NO SIGNS OF DISTRESS OF THE MOMENT. ON RENAL DIET. WITH RECTAL TUBE AND LEAKING. NOTED SKIN ALTERATION. WOUND VAC NOTED. IV ON L HAND G22, SL. R AV SHUNT FOR HD. SCHEDULED FOR HEMODIALYSIS TODAY. CALL LIGHT WITHIN REACH. BED AT LOWEST POSITION. SIDE RAILS UP. WILL CONTINUE TO MONITOR.
[2018-08-21 08:00] VITALS: BP_SYST 112; BP_SYST 117; BP_DIAS 60; BP_DIAS 70
--- NOTE | 2018-08-21 08:03 | Critical Care Progress Note ---
Assessment/Plan Assessment/Plan IMPRESSION: 1. Acute on chronic respiratory failure. 2. Acute hypercapnia, resolved with positive pressure ventilation 3. Hypoxemia. 4. Bilateral pleural effusions. and pulmonary edema 5. Fluid overload. 6. End-stage renal disease. 7. Severe protein-calorie malnutrition. 8. Anemia. 9. Thrombocytopenia. 10. Mild coagulopathy. 11. acute on chronic encephalopathy PLAN o2 nasal cannula nocturnal BIPAP monitor acid base for change- CO2 rising Avoid all sedation will follow up ABG aspiration precautions keep negative as per renal and cards monitor imaging for change nutrition as able Elevate head medications/laboratory data/nursing notes reviewed in detail note reviewed and edited care discussed with RN and RT Critical Care - Subjective Interval Events: retaining CO2 care noted and reviewed ROS Limited/Unobtainable: Yes Condition: unchanged EKG Rhythm: Sinus Rhythm I&O: Intake and Output 08/20/18 08/21/18 19:00 07:00 Intake Total 350 ml 240 ml Output Total 50 ml 50 ml Balance 300 ml 190 ml Intake Oral 350 ml 240 ml Stool Total 50 ml 50 ml # Voids 1 Critical Care - Objective ET-Tube: 7.0 ET Position: 22 Last 24 Hour Vital Signs Date Time Temp Pulse Resp B/P (MAP) Pulse Ox O2 Delivery O2 Flow Rate FiO2 08/21/18 04:00 91 08/21/18 04:00 96.7 91 20 101/67 (78) 100 08/21/18 04:00 Nasal Cannula 2.0 08/21/18 00:00 90 08/21/18 00:00 Nasal Cannula 2.0 08/21/18 00:00 97.0 78 18 118/65 (82) 100 08/20/18 20:00 96.8 88 16 130/73 (92) 99 08/20/18 20:00 Nasal Cannula 2.0 08/20/18 20:00 85 08/20/18 16:00 97.7 85 18 136/67 (90) 98 08/20/18 16:00 Nasal Cannula 2.0 08/20/18 16:00 84 08/20/18 12:00 Nasal Cannula 2.0 08/20/18 12:00 77 08/20/18 12:00 97.3 84 20 116/66 (83) 96 08/20/18 09:00 123/68 Labs: Labs Test 08/18/18 12:17 08/19/18 04:00 08/19/18 05:30 08/21/18 03:25 Arterial Blood pH 7.340 (7.350-7.450) 7.320 (7.350-7.450) Arterial Blood Partial Pressure CO2 56.5 mmHg (35.0-45.0) 57.1 mmHg (35.0-45.0) Arterial Blood Partial Pressure O2 113.4 mmHg (75.0-100.0) 66.2 mmHg (75.0-100.0) Arterial Blood HCO3 30.3 mmol/L (22.0-26.0) 29.0 mmol/L (22.0-26.0) Arterial Blood Oxygen Saturation 98.2 % (95-100) 91.0 % (95-100) Arterial Blood Base Excess 3.7 (-2-2) 2.1 (-2-2) Nicola Test Positive Positive White Blood Count 5.4 K/UL (4.8-10.8) 5.7 K/UL (4.8-10.8) Red Blood Count 3.37 M/UL (4.20-5.40) 3.28 M/UL (4.20-5.40) Hemoglobin 9.3 G/DL (12.0-16.0) 9.0 G/DL (12.0-16.0) Hematocrit 32.1 % (37.0-47.0) 30.3 % (37.0-47.0) Mean Corpuscular Volume 95 FL (80-99) 92 FL (80-99) Mean Corpuscular Hemoglobin 27.5 PG (27.0-31.0) 27.3 PG (27.0-31.0) Mean Corpuscular Hemoglobin Concent 28.9 G/DL (32.0-36.0) 29.5 G/DL (32.0-36.0) Red Cell Distribution Width 17.7 % (11.6-14.8) 17.8 % (11.6-14.8) Platelet Count 118 K/UL (150-450) 111 K/UL (150-450) Mean Platelet Volume 7.8 FL (6.5-10.1) 8.1 FL (6.5-10.1) Neutrophils (%) (Auto) 68.2 % (45.0-75.0) 65.5 % (45.0-75.0) Lymphocytes (%) (Auto) 19.6 % (20.0-45.0) 23.4 % (20.0-45.0) Monocytes (%) (Auto) 7.9 % (1.0-10.0) 7.8 % (1.0-10.0) Eosinophils (%) (Auto) 3.5 % (0.0-3.0) 2.5 % (0.0-3.0) Basophils (%) (Auto) 0.8 % (0.0-2.0) 0.9 % (0.0-2.0) Sodium Level 138 MMOL/L (136-145) 138 MMOL/L (136-145) Potassium Level 3.9 MMOL/L (3.5-5.1) 4.0 MMOL/L (3.5-5.1) Chloride Level 103 MMOL/L (98-107) 103 MMOL/L (98-107) Carbon Dioxide Level 30 MMOL/L (21-32) 31 MMOL/L (21-32) Anion Gap 5 mmol/L (5-15) 4 mmol/L (5-15) Blood Urea Nitrogen 14 mg/dL (7-18) 17 mg/dL (7-18) Creatinine 4.2 MG/DL (0.55-1.30) 4.2 MG/DL (0.55-1.30) Estimat Glomerular Filtration Rate 12.7 mL/min (>60) 12.7 mL/min (>60) Glucose Level 129 MG/DL (74-106) 118 MG/DL (74-106) Calcium Level 9.0 MG/DL (8.5-10.1) 8.7 MG/DL (8.5-10.1) Phosphorus Level 3.0 MG/DL (2.5-4.9) 2.8 MG/DL (2.5-4.9) Total Bilirubin 0.4 MG/DL (0.2-1.0) 0.3 MG/DL (0.2-1.0) Aspartate Amino Transf (AST/SGOT) 9 U/L (15-37) 10 U/L (15-37) Alanine Aminotransferase (ALT/SGPT) 8 U/L (12-78) 6 U/L (12-78) Alkaline Phosphatase 132 U/L (46-116) 118 U/L (46-116) Total Protein 7.3 G/DL (6.4-8.2) 7.0 G/DL (6.4-8.2) Albumin 2.0 G/DL (3.4-5.0) 1.9 G/DL (3.4-5.0) Globulin 5.3 g/dL 5.1 g/dL Albumin/Globulin Ratio 0.4 (1.0-2.7) 0.4 (1.0-2.7) Objective: WDWN NAD on NC; slightly more lethargic reduced breath sounds bilaterally without rhonchi or wheeze [id number] without MRG NABS nontender no HSM; feeding tube no CC edema nonfocal and altered without change, awake and blind skin exam noted appears without distress reviewed and examined Accucheck: 107 Gustavo Rolon MD Aug 21, 2018 08:03
[2018-08-21] MEDS: Losartan 25mg tab ORAL SCH (09:00)
[2018-08-21] MEDS: Aspirin Baby 81mg ORAL SCH (09:14)
[2018-08-21] MEDS: Nephrovite tab (Rena-Vite) ORAL SCH (09:14)
[2018-08-21] MEDS: Spironolactone 25mg tab ORAL SCH (09:14)
[2018-08-21] MEDS: Miconazole 2% Cr 15gm TOPIC SCH ×2 (09:15→17:31)
--- NOTE | 2018-08-21 09:24 | NUR ---
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 96.8 HR 91 RR 20 B/P 101/67 2L NC O2 SAT @ 98% CR 4.2ALK PHOS 118 IS: HEPARIN SUBC ASA PO COZAAR PO STEP DOWN UNIT
--- NOTE | 2018-08-21 09:50 | NUR ---
*-* DISCHARGE PLANNING *-* PATIENT HAS BEEN REFERRED BACK TO: [facility] P:[phone] F:[phone]
--- NOTE | 2018-08-21 09:55 | Nephrology Progress Note ---
Assessment/Plan Plan Successful Extubation after very aggressive HD aggressive UF of 4 L + 2.5 L. In KRZYSZTOF. [facility]. DC planning Subjective Subjective In KRZYSZTOF. Extubated. No new c/o. Having swallow eval. Passed -see rec. Semi solid food. Objective Objective Last 24 Hour Vital Signs Date Time Temp Pulse Resp B/P (MAP) Pulse Ox O2 Delivery O2 Flow Rate FiO2 08/21/18 09:00 117/60 08/21/18 08:00 96.4 88 20 117/60 (79) 95 08/21/18 04:00 91 08/21/18 04:00 96.7 91 20 101/67 (78) 100 08/21/18 04:00 Nasal Cannula 2.0 08/21/18 00:00 90 08/21/18 00:00 Nasal Cannula 2.0 08/21/18 00:00 97.0 78 18 118/65 (82) 100 08/20/18 20:00 96.8 88 16 130/73 (92) 99 08/20/18 20:00 Nasal Cannula 2.0 08/20/18 20:00 85 08/20/18 16:00 97.7 85 18 136/67 (90) 98 08/20/18 16:00 Nasal Cannula 2.0 08/20/18 16:00 84 08/20/18 12:00 Nasal Cannula 2.0 08/20/18 12:00 77 08/20/18 12:00 97.3 84 20 116/66 (83) 96 Intake and Output 08/20/18 08/21/18 19:00 07:00 Intake Total 350 ml 240 ml Output Total 50 ml 50 ml Balance 300 ml 190 ml Intake Oral 350 ml 240 ml Stool Total 50 ml 50 ml # Voids 1 Laboratory Tests 08/21/18 03:25: White Blood Count 5.7, Red Blood Count 3.28L, Hemoglobin 9.0L, Hematocrit 30.3L , Mean Corpuscular Volume 92, Mean Corpuscular Hemoglobin 27.3, Mean Corpuscular Hemoglobin Concent 29.5L, Red Cell Distribution Width 17.8H, Platelet Count 111L, Mean Platelet Volume 8.1, Neutrophils (%) (Auto) 65.5, Lymphocytes (%) (Auto) 23.4, Monocytes (%) (Auto) 7.8, Eosinophils (%) (Auto) 2.5, Basophils (%) (Auto) 0.9, Sodium Level 138, Potassium Level 4.0, Chloride Level 103, Carbon Dioxide Level 31, Anion Gap 4L, Blood Urea Nitrogen 17, Creatinine 4.2H, Estimat Glomerular Filtration Rate 12.7, Glucose Level 118H, Calcium Level 8.7, Phosphorus Level 2.8, Total Bilirubin 0.3, Aspartate Amino Transf (AST/SGOT) 10L, Alanine Aminotransferase (ALT/SGPT) 6L, Alkaline Phosphatase 118H, Total Protein 7.0, Albumin 1.9L, Globulin 5.1, Albumin/ Globulin Ratio 0.4L Height (Feet): 5 Height (Inches): 7.00 Weight (Pounds): 190 Objective Extubated. NAD Blind CV RR Lungs CTA Abd SNT. BS + E No CCE Neuro:Alert, nonfocal. Brenda Fuller MD Aug 21, 2018 09:55
--- NOTE | 2018-08-21 10:44 | Infectious Diseases Prog Note ---
"Assessment/Plan Assessment/Plan antibiotics ; none A 1. enterococcus | streptococcus UTI s/p rx 2. acenitobacter pneumonia s/p rx 3. diabetes mellitus 4. hypertension 5. renal failure on hemodialysis 6. history of left foot osteomyelitis 7. respiratory failure resolved P 1. continue off antibiotics Subjective ROS Limited/Unobtainable: Yes Allergies: Coded Allergies: BENAZEPRIL (Verified Allergy, Unknown, 06/12/18) CODEINE (Verified Allergy, Unknown, 06/12/18) INSULIN ASPART (Verified Allergy, Unknown, 06/12/18) INSULIN DETEMIR (Verified Allergy, Unknown, 06/12/18) OPIOIDS - MORPHINE ANALOGUES (Verified Allergy, Unknown, 06/12/18) Objective Vital Signs Last 24 Hour Vital Signs Date Time Temp Pulse Resp B/P (MAP) Pulse Ox O2 Delivery O2 Flow Rate FiO2 08/21/18 09:00 117/60 08/21/18 08:00 96.4 88 20 117/60 (79) 95 08/21/18 08:00 Nasal Cannula 2.0 08/21/18 04:00 91 08/21/18 04:00 96.7 91 20 101/67 (78) 100 08/21/18 04:00 Nasal Cannula 2.0 08/21/18 00:00 90 08/21/18 00:00 Nasal Cannula 2.0 08/21/18 00:00 97.0 78 18 118/65 (82) 100 08/20/18 20:00 96.8 88 16 130/73 (92) 99 08/20/18 20:00 Nasal Cannula 2.0 08/20/18 20:00 85 08/20/18 16:00 97.7 85 18 136/67 (90) 98 08/20/18 16:00 Nasal Cannula 2.0 08/20/18 16:00 84 08/20/18 12:00 Nasal Cannula 2.0 08/20/18 12:00 77 08/20/18 12:00 97.3 84 20 116/66 (83) 96 Height (Feet): 5 Height (Inches): 7.00 Weight (Pounds): 190 Respiratory/Chest: lungs clear Cardiovascular: normal rate, regular rhythm, no gallop/murmur Abdomen: soft, non tender Extremities: no edema, other - right stump clean, left foot in dressings, VAC Laboratory Tests Test 08/21/18 03:25 White Blood Count 5.7 K/UL (4.8-10.8) Red Blood Count 3.28 M/UL (4.20-5.40) L Hemoglobin 9.0 G/DL (12.0-16.0) L Hematocrit 30.3 % (37.0-47.0) L Mean Corpuscular Volume 92 FL (80-99) Mean Corpuscular Hemoglobin 27.3 PG (27.0-31.0) Mean Corpuscular Hemoglobin Concent 29.5 G/DL (32.0-36.0) L Red Cell Distribution Width 17.8 % (11.6-14.8) H Platelet Count 111 K/UL (150-450) L Mean Platelet Volume 8.1 FL (6.5-10.1) Neutrophils (%) (Auto) 65.5 % (45.0-75.0) Lymphocytes (%) (Auto) 23.4 % (20.0-45.0) Monocytes (%) (Auto) 7.8 % (1.0-10.0) Eosinophils (%) (Auto) 2.5 % (0.0-3.0) Basophils (%) (Auto) 0.9 % (0.0-2.0) Sodium Level 138 MMOL/L (136-145) Potassium Level 4.0 MMOL/L (3.5-5.1) Chloride Level 103 MMOL/L (98-107) Carbon Dioxide Level 31 MMOL/L (21-32) Anion Gap 4 mmol/L (5-15) L Blood Urea Nitrogen 17 mg/dL (7-18) Creatinine 4.2 MG/DL (0.55-1.30) H Estimat Glomerular Filtration Rate 12.7 mL/min (>60) Glucose Level 118 MG/DL (74-106) H Calcium Level 8.7 MG/DL (8.5-10.1) Phosphorus Level 2.8 MG/DL (2.5-4.9) Total Bilirubin 0.3 MG/DL (0.2-1.0) Aspartate Amino Transf (AST/SGOT) 10 U/L (15-37) L Alanine Aminotransferase (ALT/SGPT) 6 U/L (12-78) L Alkaline Phosphatase 118 U/L (46-116) H Total Protein 7.0 G/DL (6.4-8.2) Albumin 1.9 G/DL (3.4-5.0) L Globulin 5.1 g/dL Albumin/Globulin Ratio 0.4 (1.0-2.7) L Current Medications Medications (Trade) Dose Ordered Sig/Andre Route PRN Reason Start Time Stop Time Status Last Admin Dose Admin Acetaminophen (Tylenol) 650 mg Q4H PRN ORAL Mild Pain/Temp > 100.5 08/18/18 14:46 09/17/18 14:45 08/19/18 23:06 Aspirin (ASA) 81 mg DAILY ORAL 08/18/18 09:00 09/01/18 12:29 08/21/18 09:14 Diphenhydramine HCl (Benadryl) 25 mg Q6H PRN ORAL Itching 08/19/18 15:45 09/18/18 15:44 Diphenoxylate HCl/ Atropine (Lomotil) 2.5 mg Q4H PRN ORAL Diarrhea 08/18/18 04:30 08/29/18 12:29 Epoetin Marcus (Epoetin Marcus(ESRD on dialysis)) 10,000 unit TUE-TUE-TUE SUBQ 08/18/18 21:00 09/15/18 20:59 08/18/18 21:19 Heparin Sodium (Porcine) (Heparin Sod 1000 units/ml 10ml) 2,000 unit ONCE PRN IV FOR HD USE ONLY 08/20/18 12:30 08/21/18 23:59 Losartan Potassium (Cozaar) 25 mg DAILY ORAL 08/18/18 09:00 09/09/18 08:59 08/19/18 08:36 Miconazole Nitrate (Monistat-Derm) 1 applic TWICE A DAY TOPIC 08/18/18 09:00 09/08/18 21:29 08/21/18 09:15 Pantoprazole (Protonix) 40 mg DAILY ORAL 08/20/18 09:00 09/19/18 08:59 08/21/18 09:14 Polyethylene Glycol (Miralax) 17 gm DAILYPRN PRN ORAL Constipation 08/18/18 04:00 08/26/18 03:59 Sodium Chloride 1,000 ml @ 500 mls/hr Q2H PRN IVLG sbp<90 during hd 08/20/18 12:30 08/21/18 23:59 Spironolactone (Aldactone) 25 mg DAILY ORAL 08/18/18 09:00 09/13/18 08:59 08/21/18 09:14 Vitamin B Complex/ Vit C/Folic Acid (Nephrovite) 1 tab DAILY ORAL 08/18/18 09:00 09/01/18 12:59 08/21/18 09:14 Naya Cain MD Aug 21, 2018 10:44"
--- NOTE | 2018-08-21 10:51 | NUR ---
NURSE NOTES: PATIENT KEPT CLEAN AND DRY. NO SIGNS OF DISTRESS. WILL CONTINUE TO MONITOR.
--- NOTE | 2018-08-21 11:03 | NUR ---
ST NOTE:SWALLOW STATUS FOLLOWED UP PT'S CONDITIONS. PT MET PO INTAKE GOALS, 100%. DISCUSSED WITH RE:PT'S CONDITIONS AND PT PASSED THE VIDEOSWALLOW STUDY, ON CHOPPED DIET. DISCUSSED WITH TUSHAR TYSON RE:PT'S CONDITIONS. PER RD, PT REFUSED CHOPPED FOOD. FOR QUALITY OF LIFE AND PT'S REQUESTED, UPGRADED DIET TO SOFT, EASY CHEW WITH THIN LIQUIDS WITH STRICT ASPIRATION PRECAUTIONS WITH 1TO1 ASSIST/FEED.
[2018-08-21 12:00] VITALS: BP 107/72
--- NOTE | 2018-08-21 12:00 | NUR ---
RESPIRATORY NOTE: attempted ABG @10:35 it was drawn left brachial. Patient was on RA, and possible mixed venous draw will try to attempt again after her dialysis, no signs of SOB or distress noted.
--- NOTE | 2018-08-21 12:22 | NUR ---
RD ASSESSMENT & RECOMMENDATIONS SEE CARE ACTIVITY FOR COMPLETE ASSESSMENT DAILY ESTIMATED NEEDS: Needs based on ESRD on HD, Wound (Adj Wt 71kg) 25-30 kcals/kg 4429-5098 total kcals 1.2-1.8 g protein/kg 85-128 g total protein Fluid per MD, on HD NUTRITION DIAGNOSIS: 1) Increased kcal, pro needs R/T wound healing and renal dysfunction as evidenced by pt w/ left heel, sacral and lt ischial wounds, w/ ESRD on HD. CURRENT DIET:RENAL, texture now upgraded to soft easy chew PO DIET RECOMMENDATIONS: RENAL/ TEXTURE PER MANAGER ICU ADDITIONAL RECOMMENDATIONS: * CALIBRATED BEDSCALE WT FOR ACCURATE CBW- conflicting wts * ADD MARISA 1PKT BID FOR WOUND HEALING * MONITOR BGS, NEED FOR CARB CONTROLLED DIET- H/O DM * MONITOR LYTES AND RENAL FXN . . .
--- NOTE | 2018-08-21 13:15 | NUR ---
HAND-OFF: Report given to Cris Haro RN. Addendum: 08/21/18 at 1533 by JOAO ALBRECHT RN NURSE NOTES: WRONG TIME
--- NOTE | 2018-08-21 14:00 | NUR ---
NURSE NOTES: PATIENT TOLERATED DIALYSIS. 3L OUTPUT. NO SIGNS OF DISTRESS. WILL CONTINUE TO MONITOR.
--- NOTE | 2018-08-21 14:53 | NUR ---
NURSE NOTES:WOUND CARE NOTES:NPWT not changed today pending confirmation pt is being discharged back to SNF .Primary nurse awaiting call from case management to confirm discharge.
--- NOTE | 2018-08-21 15:15 | NUR ---
HAND-OFF: Report given to Cris Haro RN.
--- NOTE | 2018-08-21 15:16 | NUR ---
NURSE NOTES: Patient received from CHAPIS Osei. Patient is alert, oriented, and verball responsive. On 2LNC. right of way man in placed. On renal diet mechanically chopped. Rectal tube is in placed and draining well. Patient has a woundvac. IV site on L hand 22G and right AV Shunt are asymptomatic. In no apparent distress. Bed in lowest position with side rails up. Will continue to follow plan of care.
[2018-08-21 16:00] VITALS: BP 117/66
--- NOTE | 2018-08-21 17:00 | NUR ---
NURSE NOTES: Patient was very demanding and wanted her rectal tube to be taken out. Rectal tube was removed.
--- NOTE | 2018-08-21 18:15 | NUR ---
TRANSFER TO FLOOR: Patient transferred to Telemetry, per Dr. Sparks. Report given to Reuben Duncan RN. Belongings given to Reuben Duncan RN. Nurse is also aware that rectal tube was removed.
--- NOTE | 2018-08-21 18:20 | NUR ---
NURSE NOTES: Received report from CHAPIS Lanza. Patient transferred from SDU to [facility]. [facility] with HR 78, patient on 2L oxygen via NC, no active s/s cardiac, respiratory distress noticed at this time. Denies pain at this time. AO x4, Lt hand 22 G asymptomatic, patent, intact. Endorsed removal of rectal tube due to patient c/o discomfort. Lt heel wound vac on. Belonging list checked with CHAPIS Lanza. Bed in lowest position, side rails up x2, call light within reach. Will continue to monitor. Addendum: 08/21/18 at 1913 by HARRIS FIELDS RN VS at the time of arrival HR 78, BP 123/71, O2 sat 96%, RR 18.
[2018-08-21] MEDS ORDERED: Heparin Sod 1000 units/ml 10ml IV PRN (18:45)
[2018-08-21] MEDS ORDERED: Miralax 17gm pkt ORAL PRN (19:00)
[2018-08-21] MEDS ORDERED: Lomotil 2.5mg tab ORAL PRN (19:00)
--- NOTE | 2018-08-21 19:37 | NUR ---
HAND-OFF: Report given to CHAPIS Burns.
--- NOTE | 2018-08-21 19:40 | NUR ---
NURSE NOTES: Got report from Reuben NATION. Pt in stable condition. denies any pain. No s/s of distress or discomfort noted. Pt resting in bed comfortably. Bed in low and locked position, call light within reach, bedside table within reach. Continue to monitor.
[2018-08-21 20:00] VITALS: BP 116/73
[2018-08-21] MEDS ORDERED: Epoetin Alfa(ESRD on dialysis)10,000 unit/ml vial SUBQ SCH (21:00)
[2018-08-22] VITALS: BP 120/73
[2018-08-22 04:00] VITALS: BP 125/73
[2018-08-22 08:00] VITALS: BP 134/75
--- NOTE | 2018-08-22 08:00 | NUR ---
HAND-OFF: Report given to jesus munoz. endorsed plan of care.
--- NOTE | 2018-08-22 08:10 | NUR ---
NURSE NOTES: Received report from CHAPIS Madrigal in bed. Patient is in stable condition. denies any pain. No s/s of distress or discomfort noted. Bed is in lowest position and locked for safety. Call light within reach, bedside table within reach. Will continue with the plan of care.
--- NOTE | 2018-08-22 08:21 | Critical Care Progress Note ---
Assessment/Plan Assessment/Plan IMPRESSION: 1. Acute on chronic respiratory failure. 2. Acute hypercapnia, resolved with positive pressure ventilation 3. Hypoxemia. 4. Bilateral pleural effusions. and pulmonary edema 5. Fluid overload. 6. End-stage renal disease. 7. Severe protein-calorie malnutrition. 8. Anemia. 9. Thrombocytopenia. 10. Mild coagulopathy. 11. acute on chronic encephalopathy PLAN o2 nasal cannula nocturnal BIPAP and recommend for snf use monitor acid base for change- CO2 rising Avoid all sedation will follow up ABG aspiration precautions keep negative as per renal and cards monitor imaging for change and keep negative tap prn nutrition as able Elevate head medications/laboratory data/nursing notes reviewed in detail note reviewed and edited care discussed with RN and RT Critical Care - Subjective Interval Events: care noted comfortable at present no distress ROS Limited/Unobtainable: Yes Condition: stable EKG Rhythm: Sinus Rhythm I&O: Intake and Output 08/21/18 08/22/18 19:00 07:00 Intake Total 450 ml Output Total 3000 ml Balance -2550 ml Intake Oral 450 ml Hemodialysis UF 3000 ml # Voids 1 Critical Care - Objective ET-Tube: 7.0 ET Position: 22 Last 24 Hour Vital Signs Date Time Temp Pulse Resp B/P (MAP) Pulse Ox O2 Delivery O2 Flow Rate FiO2 08/22/18 04:00 98.4 73 20 125/73 (90) 97 08/22/18 04:00 77 08/22/18 03:56 Nasal Cannula 2.0 08/22/18 00:05 Nasal Cannula 2.0 08/22/18 00:00 97.0 80 20 120/73 (89) 95 08/22/18 00:00 77 08/21/18 20:00 98.0 85 20 116/73 (87) 98 08/21/18 20:00 78 08/21/18 20:00 Nasal Cannula 2.0 08/21/18 17:00 Nasal Cannula 2.0 08/21/18 16:00 Nasal Cannula 2.0 08/21/18 16:00 96.4 88 20 117/66 (83) 100 08/21/18 15:38 82 08/21/18 12:00 82 08/21/18 12:00 97.7 82 20 107/72 (84) 100 08/21/18 12:00 Nasal Cannula 2.0 08/21/18 10:45 92 Room Air 08/21/18 10:45 Room Air 21 08/21/18 09:00 117/60 Labs: Labs Test 08/21/18 03:25 White Blood Count 5.7 K/UL (4.8-10.8) Red Blood Count 3.28 M/UL (4.20-5.40) Hemoglobin 9.0 G/DL (12.0-16.0) Hematocrit 30.3 % (37.0-47.0) Mean Corpuscular Volume 92 FL (80-99) Mean Corpuscular Hemoglobin 27.3 PG (27.0-31.0) Mean Corpuscular Hemoglobin Concent 29.5 G/DL (32.0-36.0) Red Cell Distribution Width 17.8 % (11.6-14.8) Platelet Count 111 K/UL (150-450) Mean Platelet Volume 8.1 FL (6.5-10.1) Neutrophils (%) (Auto) 65.5 % (45.0-75.0) Lymphocytes (%) (Auto) 23.4 % (20.0-45.0) Monocytes (%) (Auto) 7.8 % (1.0-10.0) Eosinophils (%) (Auto) 2.5 % (0.0-3.0) Basophils (%) (Auto) 0.9 % (0.0-2.0) Sodium Level 138 MMOL/L (136-145) Potassium Level 4.0 MMOL/L (3.5-5.1) Chloride Level 103 MMOL/L (98-107) Carbon Dioxide Level 31 MMOL/L (21-32) Anion Gap 4 mmol/L (5-15) Blood Urea Nitrogen 17 mg/dL (7-18) Creatinine 4.2 MG/DL (0.55-1.30) Estimat Glomerular Filtration Rate 12.7 mL/min (>60) Glucose Level 118 MG/DL (74-106) Calcium Level 8.7 MG/DL (8.5-10.1) Phosphorus Level 2.8 MG/DL (2.5-4.9) Total Bilirubin 0.3 MG/DL (0.2-1.0) Aspartate Amino Transf (AST/SGOT) 10 U/L (15-37) Alanine Aminotransferase (ALT/SGPT) 6 U/L (12-78) Alkaline Phosphatase 118 U/L (46-116) Total Protein 7.0 G/DL (6.4-8.2) Albumin 1.9 G/DL (3.4-5.0) Globulin 5.1 g/dL Albumin/Globulin Ratio 0.4 (1.0-2.7) Objective: WDWN NAD on NC; slightly more lethargic reduced breath sounds bilaterally without rhonchi or wheeze [id number] without MRG NABS nontender no HSM; feeding tube no CC edema nonfocal and altered without change, awake and blind skin exam noted appears without distress reviewed and examined Accucheck: 139 Gustavo Rolon MD Aug 22, 2018 08:21
[2018-08-22] MEDS ORDERED: Miconazole 2% Cr 15gm TOPIC SCH (09:00)
[2018-08-22] MEDS ORDERED: Losartan 25mg tab ORAL SCH (09:00)
[2018-08-22] MEDS ORDERED: Spironolactone 25mg tab ORAL SCH (09:00)
[2018-08-22] MEDS ORDERED: Aspirin Baby 81mg ORAL SCH (09:00)
[2018-08-22] MEDS ORDERED: Nephrovite tab (Rena-Vite) ORAL SCH (09:00)
--- NOTE | 2018-08-22 10:54 | Infectious Diseases Prog Note ---
"Assessment/Plan Assessment/Plan antibiotics ; none A 1. enterococcus | streptococcus UTI s/p rx 2. acenitobacter pneumonia s/p rx 3. diabetes mellitus 4. hypertension 5. renal failure on hemodialysis 6. history of left foot osteomyelitis 7. respiratory failure resolved P 1. continue off antibiotics Subjective ROS Limited/Unobtainable: Yes Allergies: Coded Allergies: BENAZEPRIL (Verified Allergy, Unknown, 06/12/18) CODEINE (Verified Allergy, Unknown, 06/12/18) INSULIN ASPART (Verified Allergy, Unknown, 06/12/18) INSULIN DETEMIR (Verified Allergy, Unknown, 06/12/18) OPIOIDS - MORPHINE ANALOGUES (Verified Allergy, Unknown, 06/12/18) Objective Vital Signs Last 24 Hour Vital Signs Date Time Temp Pulse Resp B/P (MAP) Pulse Ox O2 Delivery O2 Flow Rate FiO2 08/22/18 09:14 134/95 08/22/18 04:00 98.4 73 20 125/73 (90) 97 08/22/18 04:00 77 08/22/18 03:56 Nasal Cannula 2.0 08/22/18 00:05 Nasal Cannula 2.0 08/22/18 00:00 97.0 80 20 120/73 (89) 95 08/22/18 00:00 77 08/21/18 20:00 98.0 85 20 116/73 (87) 98 08/21/18 20:00 78 08/21/18 20:00 Nasal Cannula 2.0 08/21/18 17:00 Nasal Cannula 2.0 08/21/18 16:00 Nasal Cannula 2.0 08/21/18 16:00 96.4 88 20 117/66 (83) 100 08/21/18 15:38 82 08/21/18 12:00 82 08/21/18 12:00 97.7 82 20 107/72 (84) 100 08/21/18 12:00 Nasal Cannula 2.0 Height (Feet): 5 Height (Inches): 7.00 Weight (Pounds): 191 Respiratory/Chest: lungs clear Cardiovascular: normal rate, regular rhythm, no gallop/murmur Abdomen: soft, non tender Extremities: no edema, other - right stump clean, left stump clean, VAC Current Medications Medications (Trade) Dose Ordered Sig/Andre Route PRN Reason Start Time Stop Time Status Last Admin Dose Admin Acetaminophen (Tylenol) 650 mg Q4H PRN ORAL Mild Pain/Temp > 100.5 08/21/18 19:00 09/17/18 14:45 Aspirin (ASA) 81 mg DAILY ORAL 08/22/18 09:00 09/01/18 12:29 08/22/18 09:15 Diphenhydramine HCl (Benadryl) 25 mg Q6H PRN ORAL Itching 08/21/18 19:00 09/18/18 18:59 Diphenoxylate HCl/ Atropine (Lomotil) 2.5 mg Q4H PRN ORAL Diarrhea 08/21/18 19:00 08/29/18 18:59 Epoetin Marcus (Epoetin Marcus(ESRD on dialysis)) 10,000 unit TUE-TUE-TUE SUBQ 08/21/18 21:00 09/15/18 20:59 08/21/18 21:00 Heparin Sodium (Porcine) (Heparin Sod 1000 units/ml 10ml) 2,000 unit ONCE PRN IV dialysis 08/21/18 18:45 08/22/18 23:59 Losartan Potassium (Cozaar) 25 mg DAILY ORAL 08/22/18 09:00 09/09/18 08:59 08/22/18 09:14 Miconazole Nitrate (Monistat-Derm) 1 applic TWICE A DAY TOPIC 08/22/18 09:00 09/08/18 21:29 08/22/18 09:17 Pantoprazole (Protonix) 40 mg DAILY ORAL 08/22/18 09:00 09/19/18 08:59 08/22/18 09:15 Polyethylene Glycol (Miralax) 17 gm DAILYPRN PRN ORAL Constipation 08/21/18 19:00 09/20/18 18:59 Sodium Chloride 1,000 ml @ 500 mls/hr Q2H PRN IVLG sbp<90 during hd 08/21/18 18:45 08/22/18 23:59 Spironolactone (Aldactone) 25 mg DAILY ORAL 08/22/18 09:00 09/13/18 08:59 08/22/18 09:15 Vitamin B Complex/ Vit C/Folic Acid (Nephrovite) 1 tab DAILY ORAL 08/22/18 09:00 09/01/18 12:59 08/22/18 09:15 Naya Cain MD Aug 22, 2018 10:54"
--- NOTE | 2018-08-22 11:32 | Nephrology Progress Note ---
Assessment/Plan Plan Successful Extubation after very aggressive HD aggressive UF in a series of aggressive HD/UF DC to SNF. Subjective Subjective In tele. No new c/o. very alert and oriented. No c/o Objective Objective Last 24 Hour Vital Signs Date Time Temp Pulse Resp B/P (MAP) Pulse Ox O2 Delivery O2 Flow Rate FiO2 08/22/18 09:14 134/95 08/22/18 04:00 98.4 73 20 125/73 (90) 97 08/22/18 04:00 77 08/22/18 03:56 Nasal Cannula 2.0 08/22/18 00:05 Nasal Cannula 2.0 08/22/18 00:00 97.0 80 20 120/73 (89) 95 08/22/18 00:00 77 08/21/18 20:00 98.0 85 20 116/73 (87) 98 08/21/18 20:00 78 08/21/18 20:00 Nasal Cannula 2.0 08/21/18 17:00 Nasal Cannula 2.0 08/21/18 16:00 Nasal Cannula 2.0 08/21/18 16:00 96.4 88 20 117/66 (83) 100 08/21/18 15:38 82 08/21/18 12:00 82 08/21/18 12:00 97.7 82 20 107/72 (84) 100 08/21/18 12:00 Nasal Cannula 2.0 Intake and Output 08/21/18 08/22/18 19:00 07:00 Intake Total 450 ml Output Total 3000 ml Balance -2550 ml Intake Oral 450 ml Hemodialysis UF 3000 ml # Voids 1 Height (Feet): 5 Height (Inches): 7.00 Weight (Pounds): 191 Objective NAD Blind CV RR Lungs CTA Abd SNT. BS + E No CCE Neuro:Alert, nonfocal. Brenda Fuller MD Aug 22, 2018 11:32
--- NOTE | 2018-08-22 11:34 | Discharge Instructions ---
Discharge Instructions For Congestive Heart Failure Reminder Report to your physician any weight gain of 5 pounds or more in one week. Brenda Fuller MD Aug 22, 2018 11:34
--- NOTE | 2018-08-22 11:57 | NUR ---
Social Service Note KEVIN confirmed bed assignment at [facility] room 131 B. Facility aware patient will return with wound vac. KEVIN left a message for patient's dgt Myrtle Horne [phone] informing her of dc plan for today. Ambulance arranged for 3pm with [facility] [phone]. Nurse to call report prior to transfer [phone]. Addendum: 08/22/18 at 1250 by JALEESA KUHN KEVIN spoke with Sherrie at [facility] [phone], confirmed chair time 1245pm, -SAT. Per Sherrie transportation in place.
[2018-08-22 12:00] VITALS: BP 120/55
--- NOTE | 2018-08-22 12:01 | NUR ---
*-* DISCHARGE PLANNED *-* PATIENT TO BE DISCHARGE TO: [facility] ROOM# 131-B SKILLED T:[phone] FOR NURSE TO NURSE REPORT [facility] HAS BEEN ARRANGED FOR MANUFACTURING ENGINEERING DIRECTOR AT 1500 BY SS.
--- NOTE | 2018-08-22 14:47 | NUR ---
ST NOTE: SWALLOW STATUS/D/C SUMMARY: FOLLOWED UP PT'S CONDITIONS. PER PT, TOLERATING WELL WITH CURRENT DIET(SOFT, EASY CHEW WITH THIN) WITHOUT OVERT. PER RN, PT WILL BE D/C TODAY TO SNF. A COPY OF VIDEOSWALLOW STUDY REPORT WAS GIVEN FOR DISCHARGE. D/C SUMMARY: PT MET PO INTAKE GOALS. NURSING STAFF MET ASPIRATION PRECAUTIONS GOALS. REFER PT TO DRAFTING SUPERVISOR AT DISCHARGE FACILITY TO FOLLOW UP. D/C FROM SKILLED ST SERVICE.
--- NOTE | 2018-08-22 15:39 | NUR ---
NURSE NOTES:WOUND CARE NOTES:NPWT L Heel discontinued pending discharge today.L heel wound resolving (L)2.3cm x (W)2.5cm .Wound base is beefy red,moist with edges flat and adherent to base of wound.Epithelialized pale pink skin periwound. Minimal sanguineous exudate noted. No odor noted. Wound cleansed with Saline .Wet to dry gauze applied,Cavilon SKin Barrier periwound,then ABD pad and wrapped with Kerlix drsg . Moisture associated skin damage resolving,buttocks,medial and posterior thighs,perineum and bilat groin groin with less erythema and is dry .Pt denied burning or discomfort.Pt was updated on Wound progress of L heel ulcer.
--- NOTE | 2018-08-22 16:01 | NUR ---
NURSE NOTES: Patient discharged to SNF via ambulance. court recording monitor removed, IV removed, wound vac removed, dressing change done by the wound care nurse . Inter-facility report given to Trisha at the facility. Report given to ambulance personnel. Patient is in stable condition.
--- NOTE | 2018-08-24 08:45 | Discharge Summary ---
Discharge Summary Discharge Summary _ DATE OF ADMISSION: 07/17/2018 DATE OF DISCHARGE: 08/22/2018 DISCHARGED BY: Dr. Fuller REASON FOR ADMISSION: 72 years old female with complicated past medical history, including recent respiratory failure, requiring intubation, non-STEMI, encephalopathy, septic shock, large left pleural effusion ,status post thoracentesis x2, persistent left lung collapse, status post bronchoscopy with mucous plug, end-stage renal failure, on hemodialysis, due to diabetic nephropathy chronic calcaneal left osteomyelitis, severe peripheral vascular disease, right above-knee amputation, diabetes mellitus with diabetic nephropathy and retinopathy, congestive heart failure with severe mitral regurgitation post MRSA subacute bacterial endocarditis, biventricular right and left heart failure with anasarca, obesity , was unable to get dialysis due to hypotension. Laboratory workup revealed no leukocytosis, hemoglobin 8.5, hematocrit 28.2 , platelets 127. BUN 51, creatinine 5.0 ,consistent with known history of end-stage renal disease , Glucose 173. Lactic acid 1.5. Troponin elevated 0.135 , pro BNP 30478. EKG revealed sinus rhythm , no acute ischemic changes. Albumin 2.0. Urinalysis revealed evidence of pyuria and bacteria, +4 protein. Chest x-ray showed partially loculated bilateral moderate size pleural effusion. Retrocardiac atelectasis versus consolidation. Patient was admitted for further management. CONSULTANTS: container packer operator Dr. Daley pulmonary Dr. Rolon ID specialist Dr. Cain vascular [facility] COURSE: Patient admitted to telemetry floor and started on empiric antibiotics.. Cardiology consult was requested. Serial troponin were monitored. The next two troponin were within normal limits. Initially elevated troponin was likely troponin leak due to renal failure. Echocardiogram on recent prolonged hospitalization revealed preserved ejection fraction fraction, no evidence of wall motion abnormality and moderate to severe mitral and tricuspid regurgitation. Cardiology closely followed . Hemodynamic status was closely monitored. Patient was hypotensive. Calcium channel chon was discontinued due to hypotension and congestive heart failure. Subsequently further down beta-chon and HE inhibitor were stoppe due to hypotension. Per cardiology , patient had chronic congestive heart failure due to severe mitral regurgitation post endocarditis, left and right heart failure. Overall prognosis for this patient was poor. Bank Reconciliator was unable to give initially any afterload reduction due to hypotension Hemodialysis provided as per supervisor putty and caluking recommendation with close monitoring of volumes, renal parameters and electrolytes ; electrolytes corrected as needed. Patient was kept in negative balance. Patient noted to become more lethargic. ABG revealed severe respiratory acidosis with hypercapnia with pH 7.21 and PCO2 56 on 50% on Venturi mask. Spinning Lathe Operator closely followed. Altered mental status appeared to be multifactorial, due to hypoxemia and hypercapnia along with CHF and infectious process. Patient started on the BiPAP as per pulmonary care nurse recommendations. Patient was followed-up with ABG and chest x-ray. Pulmonary toilet provided as needed. Patient was kept negative with the hemodialysis, and acid-base was closely monitored. Unfortunately respiratory status was not improving , and patient require oral intubation by emergency room doctor on 08/02/18. Ventilator support provided. Ventilator settings titrated as needed based on daily ABG and CXR. NG tube was inserted for nutritional support. Patient started on tube feedings via NG tube with strict aspiration /reflux precautions. Hemodynamic status was closely monitored. Acute hypercapnia resolved by positive pressure ventilation. Patient undergone successful extubation on 08/16/18 after very aggressive hemodialysis with ultrafiltration. Subsequently patient was transferred to [id number]. Patient passed video swallow evaluation. Diet provided as per speech therapist recommendations with strict aspiration precaution. Nutritional recommendations implemented in plan of care. Supplemental oxygen titrated to keep pulse oximetry above 92%. BiPAP provided at night and as needed . Pulmonary toilet provided. Recommended use of nocturnal BiPAP at the nursing facility. All sedatives were avoided. When blood pressure stabilized , patient started on low-dose of ARB and Spironolactone to help with afterload reduction and fluid management along with hemodialysis. Antiplatelet therapy with aspirin continued. Intake and output was closely monitored to keep patient in negative balance. No need for thoracentesis at this time. Infectious disease specialist followed. Urine culture revealed Strep viridans and Enterococcus faecalis. Stool for C. difficile was negative. Sputum culture revealed Acinetobacter complex MDR. Antibiotic provided as per ID specialist recommendations. Patient status post treatment for urinary tract infection and pneumonia. PICC line was discontinued. Culture of the PICC line tip revealed no evidence of growth. Initially general surgery consulted for recommendation on left heel stage 4 decubitus ulcer present on admission. Left heel wound appeared to be granulated. Patient had a prior history of onset of osteomyelitis and calcific arterial occlusive disease. Wound vacuum implemented and continued with close surgeon follow up. Vascular surgeon seen and evaluated the patient. Intact Doppler signals. He recommended to continue with wound vacuum for left heel wound care and offload. Episodes of hypoglycemia noted, and Starlix was discontinued. Blood sugar was managed with sliding scale insulin as needed. Hemoglobin and hematocrit were closely monitored with goal to keep hemoglobin above 7. Patient with evidence of anemia of chronic kidney disease. Patient required transfusion of one unit of packed red blood cells for hemoglobin 6.9. Epogen was continued. Prior to discharge hemoglobin 9.0, hematocrit 30.3. DVT prophayxlis provided. Platelet count was closely monitored, improved. Prior to discharge platelets- 111 . Supportive care provided. Pain management was addressed as needed. Bowel regimen instituted. GI prophylaxis provided. Patient clinically stabilized. Hemodynamic status stable. Mental status returned to abseline. Patient status post treatment with antibiotic. Blood pressure stabilized. Pulse oximetry stable stable on 2 L of oxygen via nasal cannula. No shortness of breath, no signs of respiratory distress. Patient was ready for discharge to custodial facility for continuation of care FINAL DIAGNOSES: Acute on chronic respiratory failure Acute hypercapnic hypoxemic respiratory failure, requiring intubation ( s/p extubation) Bilateral pleural effusion Congestive heart failure due to severe mitral regurgitation post endocarditis Left and right heart failure Fluid overload Acute on chronic encephalopathy , probably due to severe hypercapnia and hypoxia Hypotension postdialysis with history of hypertension End-stage renal failure , on hemodialysis Enterococci, Streptococcus UTI, status post treatment Acinetobacter MDR pneumonia, status post treatment Diabetes mellitus type 2 with episode of hypoglycemia History of left foot osteomyelitis Severe protein calorie malnutrition Anemia of chronic kidney disease Obesity Recent septic shock Blindness due to diabetic retinopathy 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 DISCHARGE INSTRUCTIONS: Patient was discharged to the custodial facility/[facility]. Follow up with medical doctor at the facility. I have been assigned to dictate discharge summary for this account. I was not involved in the patient's management. Lorraine Persaud NP Aug 24, 2018 08:45
--- NOTE | 2018-08-24 14:59 | Cardiology Report ---
APPROVED REPORT EKG Measurement Heart [id number] Normal sinus rhythm Low voltage QRS Cannot rule out Anterior infarct, age undetermined Abnormal ECG
== END 2018-08-22 16:00 | DRG 291 ==
LOC: EDBD 18:53 → EMR 19:21 → 2E 19:49 → EDBEDREQ 21:01 → 2E 07-18 00:34 → 2W 07-27 17:28 → 2E 07-29 01:30 → ICU 08-02 10:30 → 2W 08-17 23:33 → ICU 08-17 23:50 → 2W 08-18 03:25 → 2E 08-21 18:08
PROC: 5A1D70Z Performance of Urinary Filtration, Intermittent, Less than 6 Hours Per Day (ICD-10-PCS; principal; 2018-07-18)
PROC: 5A1955Z Respiratory Ventilation, Greater than 96 Consecutive Hours (ICD-10-PCS; 2018-08-02)
PROC: 0BH17EZ Insertion of Endotracheal Airway into Trachea, Via Natural or Artificial Opening (ICD-10-PCS; 2018-08-02)
DX: I13.2 Hypertensive heart and chronic kidney disease with heart failure and with stage 5 chronic kidney disease, or end stage renal disease (principal); L89.624 Pressure ulcer of left heel, stage 4; N18.6 End stage renal disease; J96.22 Acute and chronic respiratory failure with hypercapnia; J96.21 Acute and chronic respiratory failure with hypoxia; E43 Unspecified severe protein-calorie malnutrition; J15.6 Pneumonia due to other Gram-negative bacteria; M86.672 Other chronic osteomyelitis, left ankle and foot; N39.0 Urinary tract infection, site not specified; G93.1 Anoxic brain damage, not elsewhere classified; J90 Pleural effusion, not elsewhere classified; D68.9 Coagulation defect, unspecified; Z99.11 Dependence on respirator [ventilator] status; I50.9 Heart failure, unspecified; E87.79 Other fluid overload; D63.1 Anemia in chronic kidney disease; I25.9 Chronic ischemic heart disease, unspecified; I73.9 Peripheral vascular disease, unspecified; Z99.2 Dependence on renal dialysis; E11.319 Type 2 diabetes mellitus with unspecified diabetic retinopathy without macular edema; I34.0 Nonrheumatic mitral (valve) insufficiency; Z89.431 Acquired absence of right foot; E11.621 Type 2 diabetes mellitus with foot ulcer; I25.2 Old myocardial infarction; B95.2 Enterococcus as the cause of diseases classified elsewhere; B95.5 Unspecified streptococcus as the cause of diseases classified elsewhere; E11.22 Type 2 diabetes mellitus with diabetic chronic kidney disease; D69.6 Thrombocytopenia, unspecified; Z68.29 Body mass index [BMI] 29.0-29.9, adult
CPT/HCPCS: 36415; 36600; 71045; 74018; 74230; 76604; 80048; 80053; 80202; 81003; 82550; 82803; 82962; 83605; 83735; 83880; 84100; 84484; 85007; 85025; 85610; 85730; 86850; 86900; 86901; 86920; 87070; 87086; 87181; 87205; 87324; 93005; 94002; 94003; 94640; 94660; 94664; 94760; 99285